=== PATIENT | male | born 1965 | race American Indian/Alaskan Native ===

== ENCOUNTER 2017-09-10 20:53 | Inpatient (IN) | payer OTHER ==
[~2017-09-10] VITALS: Ht 180.3 cm; Wt 89.6 kg
[~2017-09-10 20:53] MED LIST: ASPIR 8181 MG PO; BACTRIM DS TAB1 EACH PO; BETAMETHASONE V60 ML TOP; CALCIUM500 MG PO; CHLORTHALIDONE25 MG PO; CIPROFLOXACIN500 MG PO; CLINDAMYCIN HC300 MG PO; CLOPIDOGREL75 MG PO; CRESTOR20 MG PO; FENOFIBRATE145 MG PO; FENOFIBRATE160 MG PO; GLIPIZIDE XL5 MG PO; HYDROCHLOROTHIA25 MG PO; HYDROCODON-ACE1 EA10 PO; IBUPROFEN600 MG PO; IMODIUM A-1 MG/7.5 M PO; INDOMETHACIN25 MG PO; JANUVIA100 MG PO; JANUVIA50 MG PO; KEFLEX500 MG PO; LANTUS SOL100 UNIT/1 SUB-Q; LINEZOLID600 MG PO; LISINOPRIL10 MG PO; LISINOPRIL40 MG PO; LYRICA75 MG PO; METFORMIN HCL500 M2 PO; METOPROLOL SUCC50 MG PO; MITIGARE0.6 MG PO; MOTRIN IB200 MG PO; NITROSTAT0.4 MG SL; NORCO 5-325 TA1 EACH PO; NORCO 7.5-3251 EACH PO; NOVOLOG FL100 UNIT/1 SUB-Q; NOVOLOG100 UNIT/1 SUB-Q; NOVOLOG100 UNITS/ SUB-Q; ONDANSETRON ODT8 MG SL; PROTONIX40 MG PO; SEPTRA DS TABL1 EACH PO; SIMVASTATIN10 MG PO; SIMVASTATIN5 MG PO; SULFAMETHOXAZO1 EAC1 PO; TOPROL XL100 MG PO; ULTRAM50 MG PO; VITAMIN D1000 UNI1 PO; XARELTO20 MG PO; ZESTRIL40 MG PO; ZOFRAN ODT8 MG PO
[2017-09-10] MEDS ORDERED: LISINOPRIL40 MG PO (21:16)
[2017-09-10] MEDS ORDERED: JANUVIA100 MG PO (21:17)
[2017-09-10] MEDS ORDERED: NOVOLOG100 UNIT/2 (21:19)
--- NOTE | 2017-09-11 00:26 | EKG ---
[facility] [address] [facility] [place] [address] Signed Sinus tachycardia Minimal voltage criteria for LVH, may be normal variant Inferior infarct (cited on or before 02-JAN-2016) Abnormal ECG When compared with ECG of 11-MAY-2016 23:27, Questionable change in initial forces of Inferior leads Confirmed by DIONISIO LINDA MD ([id number]) on 09/11/2017 12:26:43 AM Electronically Signed By: DIONISIO LINDA MD 09/11/17 0026 PATIENT NAME: LIVE ROJAS Electrocardiogram DATE OF : 67 PHYSICIAN: DIONISIO LINDA MD REPORT #: [id number] REPORT IS CONFIDENTIAL AND NOT TO BE RELEASED WITHOUT AUTHORIZATION
--- NOTE | 2017-09-11 01:00 | NUR ---
REPORT RECEIVED FROM STUDENT NURSE ANGIE. PT ARRIVES TO ROOM 128 AT 0010 VIA STRETCHER, PT ABLE TO MOVE HIMSELF ONTO BED. HE IS ALERT/ORIENTED, REPORTS 4/10 PAIN IN HIS RIGHT LEG, WHICH HE STATES IS TOLERABLE. LUNGS ARE CLEAR, RA. HR REGULAR. BOWEL TONES ACTIVE, DENIES NAUSEA. SKIN HAS GENERALIZED PSORIASIS LESIONS OVER ENTIRE BODY. PT HAS NEW TRIAL MEDICATION WHICH MAKES HIS SKIN EXTRA SENSITIVE AND TICKLISH. OPEN LESION TO POSTERIOUS RIGHT LOWER LEG ~2CM COVERED WITH BANDAID PER PT REQUEST. IV SITES PATENT. CBG DID NOT REQUIRE SLIDING SCALE, 12 UNITS LEVEMIR ADMINISTERED. LUNCHBOX PROVIDED PER REQUEST. PT DENIES FURTHER REQUESTS AT THIS TIME, WILL CONTINUE TO MONITOR.
--- NOTE | 2017-09-11 02:11 | NUR ---
PT CURRENTLY SLEEPING, NO APPARENT DISTRESS. RR: 14, RESPIRATIONS EVEN AND UNLABORED. SPO2: 97% ON RA. HR: 84%, SINUS RHYTHM. IVF INFUSING WNL. WILL ALLOW FOR REST AND CONTINUE TO MONITOR.
--- NOTE | 2017-09-11 04:16 | NUR ---
ASSESSMENT COMPLETED. PRN TYLENOL GIVEN FOR 6/10 HEADACHE PAIN. PT HAS NOT YET VOIDED, STATES HE DOES NOT FEEL THE NEED. BLADDER SCAN SHOWS 578ML OF URINE, PT AGREEABLE TO TRYING BY 0600. NO OTHER CHANGES FROM PREVIOUS ASSESSMENT, WILL CONTINUE TO MONITOR.
--- NOTE | 2017-09-11 04:47 | NUR ---
PT CALLED AND HAD VOIDED 500ML USING URINAL. DIET SODA PROVIDED PER REQUEST. PT DENIES FURTHER REQUESTS AT THIS TIME.
--- NOTE | 2017-09-11 08:09 | NUR ---
PT AWAKE AND ALERT, VITAL SIGNS AND ASSESSMENT COMPLETED. A.M. MEDS GIVEN AND PT STATES KNOWLEDGE OF MEDS. C/O OF HEADACHE "08/02", WILL GIVE TYLENOL ORDERED.
--- NOTE | 2017-09-11 09:05 | NUR ---
PT ATE APPROX 75% OF BREAKFAST. ORAL CARE COMPLETED BY PATIENT. AC IV SITE UNCOMFORTABLE. ATTEMPTED TO START IV X3 BUT FAILED. PT ARACELI WELL.
--- NOTE | 2017-09-11 09:49 | NUR ---
DR. LINDA IN TO ASSESS PT. VIAL SIGNS COMPLETED.
--- NOTE | 2017-09-11 10:12 | NUR ---
PT STOOD AT BEDSIDE AND VOIDED 625 MLS CHARISSE URINE, AMBULATING IN ROOM WITHOUT PROBLEMS. RESTING IN [place]CKENZIE CHAIR WATCHING TV.
--- NOTE | 2017-09-11 10:23 | NUR ---
TO XRAY DEPT VIA W/C FOR 2 VIEW CHEST XRAY.
--- NOTE | 2017-09-11 10:44 | NUR ---
PT RETURNED TO ROOM 128 VIA W/C, TRANSFERRED TO [facility] CHAIR WATCHING TV.
--- NOTE | 2017-09-11 12:53 | NUR ---
ASSESSMENT COMPLETED, PT DENIES C/O, STATES HEADACHE "BETTER". FAMILY IN TO VISIT WITH. BLANCOSIS MED BROUGHT FROM HOME AND DR. LINDA AWARE.
--- NOTE | 2017-09-11 14:10 | NUR ---
PT SLEEPING BUT AWAKENS TO VOICE. VITAL SIGNS TAKEN, BP 172/86, DR. LINDA NOTIFIED AND ORDERS RECEIVED. IVF DECREASED TO 75 MLS/HR. WARM BLANKET GIVEN PER PT REQUEST. ORAL TEMP 98.9. FAMILY REMAINS IN ROOM.
--- NOTE | 2017-09-11 15:04 | NUR ---
NEW ORDERS RECEIVED FOR INCREASED BLOOD PRESSURE. NORVASC 5MG PO GIVEN. TYLENOL 500 MG GIVEN PO FOR C/O HEADACHE. PT STOOD AT BEDSIDE AND VOIDED 800 MLS YELLOW URINE. PT RETURNED TO BED, STATES BEING TIRED.
[2017-09-11] MEDS ORDERED: AMLODIPINE BESYL5 MG PO (15:31)
--- NOTE | 2017-09-11 15:38 | NUR ---
PHARMACIST OKSANA HERE TO TALK WITH PT ABOUT HIS HOME MEDS.
[2017-09-11] MEDS ORDERED: OTEZLA1 EAC1 PO (15:52)
[2017-09-11] MEDS ORDERED: LOPERAMIDE2 M1 PO (15:53)
--- NOTE | 2017-09-11 16:43 | NUR ---
PT UP TO [place]IE CHAIR, C/O LEFT CALF DISCOMFORT THAT RUNS UP TO HIS GROIN AREA. SPONGE BATH GIVEN INSTEAD OF SHOWER. SMALL AREAS ON LEGS BLEEDING FROM THE DRY AREAS OF PSORIASIS. PT RETURNED TO BED VITAL SIGNS TAKEN, ORAL TEMP NOW 100.0. ASSESSMENT COMPLETED. PT SLEEPING WITH REU.
--- NOTE | 2017-09-11 17:32 | NUR ---
DR. LINDA NOTIFIED OF LEFT LEG PAIN AND RED AREA ON LEFT LOWER EXTREMITY. PT EATING DINNER AND WATCHING TV.
--- NOTE | 2017-09-11 18:24 | NUR ---
DR. LINDA HERE TO ASSESS LEFT LOWER EXTREMITY. REDNESS NOTED AND PT STATES THE LEG IS PAINFUL. VITAL SIGNS TAKEN AND BP 180/87. EVENING BP MEDS GIVEN EARLY. NORCO 5/325 2 TABS GIVEN FOR C/O LEFT LOWER LEG PAIN "12/02". EKG COMPLETED D/T C/O CHEST PRESSURE. DR. LINDA HERE AND EKG NEG.
--- NOTE | 2017-09-11 18:39 | NUR ---
PT STOOD AT BEDSIDE AND VOIDED 550 MLS CLEAR YELLOW URINE. RETURNED TO BED WITH HOB ELEVATED SLIGHTLY, RESTING WITH EYES CLOSED.
--- NOTE | 2017-09-11 19:39 | NUR ---
SHIFT REPORT RECEIVED FROM ROCAEL JACOBS. PT IS CURRENTLY SLEEPING, RR:19, HR:84. IVF INFUSING WNL. PT DOES NOT APPEAR TO BE IN ANY DISTRESS, WILL ALLOW FOR REST AND CONTINUE TO MONITOR.
--- NOTE | 2017-09-11 21:00 | NUR ---
PT CALLED AND NEEDED TO USE BATHROOM, WALKED INDEPENDENTLY TO BATHROOM AFTER I UNHOOKED IV POLE FROM WALL. PT HAD UNMEASURED VOID AND BM THEN RETURNED TO BED. ASSESSMENT COMPLETED. ORAL TEMP 99.7 AND HEADACHE PAIN 3/10, PRN TYLENOL GIVEN. PT IS ALERT/ORIENTED. LUNGS CLEAR, RA. HR REGULAR. BOWEL TONES ACTIVE, DENIES NAUSEA. SKIN HAS GENERALIZED PSORIASIS LESIONS FROM HEAD TO TOE, MULTIPLE BANDAIDS NOTED TO LOWER LEGS. REDNESS NOTED ON LEFT GROIN/INNER THIGH, NO STRANDING NOTED ON REST OF LEG. CB, 2 UNITS SLIDING SCALE AND 12 UNITS LEVEMIR ADMINISTERED WITH SNACK OF CAM CRACKERS. IV X2, PATENT, IVF INFUSING WNL.
--- NOTE | 2017-09-12 | NUR ---
ASSESSMENT COMPLETED. PT STATES THAT OVERALL HIS PAIN IS 2/10, DENIES NEED FOR ANY PAIN MEDICATION AT THIS TIME. REDNESS TO RIGHT INNER THIGH APPEARS TILE CONDUIT LAYER. PT UP TO BATHROOM, VOIDED 450ML AND IS HAVING DIARRHEA, WHICH HE STATES HE HAS BEEN HAVING AND REQUESTS SOME IMODIUM. CALLED DR. LINDA WHO WOULD LIKE A STOOL SAMPLE SENT FOR CULTURE AND C.DIFF PRIOR TO GIVING IMODIUM. DISCUSSED THIS WITH PT, WHO STATES UNDERSTANDING. BED LINEN CHANGED DUE TO INCONTINENCE OF SMALL AMOUNT OF LIQUID BM. PT DENIES FURTHER REQUESTS AT THIS TIME.
--- NOTE | 2017-09-12 00:18 | NUR ---
PT CALLED AND WAS NAUSEATED, EMESIS BAG PROVIDED, PT HAVING DRY HEAVES, NO EMESIS. 4MG IV ZOFRAN ADMINISTERED. DIET 7-UP AND SALTINE CRACKER PROVIDED. PT SITTING UP IN BED AND EATING SNACKS, STATES HE IS STARTING TO FEEL BETTER. WILL CONTINUE TO MONITOR.
--- NOTE | 2017-09-12 02:24 | NUR ---
PT APPEARS TO BE SLEEPING AT THIS TIME, NO APPARENT DISTRESS. RR:17, RESPIRATIONS ARE EVEN AND UNLABORED, SPO2:96% ON RA. HR:74. IVF INFUSING WNL. WILL ALLOW FOR REST AND CONTINUE TO MONITOR.
--- NOTE | 2017-09-12 04:35 | NUR ---
PT CURRENTLY SLEEPING, NO APPARENT DISTRESS. RESPIRATIONS EVEN AND UNLABORED, RR:19, SPO2: 96% ON RA. HR:69. IVF INFUSING WNL. WILL ALLOW FOR REST AND CONTINUE TO MONITOR.
--- NOTE | 2017-09-12 06:44 | NUR ---
PT VOIDED 725ML USING URINAL AT BEDSIDE. PT HAS NOT HAD ANY MORE EPISODES OF DIARRHEA DURING THE NIGHT. PT CURRENTLY WATCHING TV IN BED, IVF INFUSING WNL. DENIES NEEDS AT THIS TIME.
--- NOTE | 2017-09-12 10:03 | NUR ---
DR. LINDA IN TO ASSESS PT. PT RESTING IN [place] CHAIR.
--- NOTE | 2017-09-12 10:04 | NUR ---
ASSESSMENT COMPLETED. PT UP TO BATHROOM VOIDING 625 MLS CLEAR YELLOW URINE AND HAD LARGE BM. STOOL SAMPLE SENT TO LAB FOR C-DIFF.
--- NOTE | 2017-09-12 11:02 | NUR ---
IVF DC'D AND AND FLUSHED WITH 10 MLS NORMAL SALINE.
--- NOTE | 2017-09-12 12:00 | NUR ---
PT ARRIVED TO FLOOR VIA CHAIR FROM CCU, SBA. PT ALERT AND ORIENTED. DIFFUSE DRY, FLAKING PLAQUES ON SKIN. DRESSINGS NOTED TO A COUPLE OPEN SITES ON LEGS, CDI. IV SITE TO EACH AC, FLUSH WELL, SL AT THIS TIME. ASSESSMENT COMPLETED. CALL LIGHT WITHIN REACH.
--- NOTE | 2017-09-12 13:44 | NUR ---
PT SITTING IN CHAIR, JUST TRANSFERRED FROM CCU. HE IS SMILING AND RATHER PLEASANT. PT SAID HIS PAIN WAS UNDER CONTROL, AND WE BEGAN TO DISCUSS HIS PSORIASIS. ONLY BEEN SOMETHING HE HAS DEALT WITH FOR THE LAST 6-8 MONTHS. ON A MED THAT HE HAS JUST STARTED AND IS SCHEDULED TO SEE A VENEER JOINTER RETURNER NEXT MONTH. WILL CONTINUE TO FOLLOW NEEDED
--- NOTE | 2017-09-12 14:15 | NUR ---
IV IN LEFT AC LEAKING. DC'D BY OVAL OR CIRCULAR GLASS CUTTER II STUDENT SUPERVISED BY MELONIE COTE. IV INFUISION RESTARTED IN RIGHT AC, INFUSING WITHOUT DIFFICULTY.
--- NOTE | 2017-09-12 16:10 | NUR ---
PT SITTING UP IN BED, FAMILY AT BEDSIDE. PT SL. PT DENIES NEEDS OR CONCERNS AT THIS TIME. CALL LIGHT WITHIN REACH.
--- NOTE | 2017-09-12 16:22 | EKG ---
[facility] [address] [facility] [place] [address] Signed Normal sinus rhythm Possible Inferior infarct (cited on or before 02-JAN-2016) Abnormal ECG When compared with ECG of 10-SEP-2017 21:31, T wave amplitude has decreased in Lateral leads Confirmed by DIONISIO LINDA MD ([id number]) on 09/12/2017 4:21:59 PM Electronically Signed By: DIONISIO LINDA MD 09/12/17 1622 PATIENT NAME: LIVE ROJAS Electrocardiogram DATE OF : 67 PHYSICIAN: DIONISIO LINDA MD REPORT #: [id number] REPORT IS CONFIDENTIAL AND NOT TO BE RELEASED WITHOUT AUTHORIZATION
--- NOTE | 2017-09-12 17:50 | NUR ---
PT ATE ALL OF DINNER, ARACELI WELL. PT C/O 12/02 LEFT LEG PAIN. MEDICATED WITH NORCO. CALL LIGHT WITHIN REACH. PT INDEPENDENT IN ROOM.
--- NOTE | 2017-09-12 19:20 | NUR ---
IN ROOM FOR REPORT, PT IS AWAKE IN BED, HE DENIES ANY NEEDS AT THIS TIME. CALL LIGHT IS WITHIN REACH.
--- NOTE | 2017-09-12 22:13 | NUR ---
IN ROOM TO ASSESS PT AND ADMINISTER MEDICATIONS. HE RATES PAIN AT 4/10 AT THIS TIME WITH A PAIN GOAL OF 4 AND STATES HE IS DOING OK. NEW BANDAIDS APPLIED TO OPEN AREAS ON HIS LOWER EXTREMITIES, THERE WERE SMALL AMOUNTS OF DRIED BLOOD ON EA BANDAID. BROUGHT PT BERNIE CASTANO AND HE DENIES FURTHER NEEDS AT THIS TIME.
--- NOTE | 2017-09-13 00:33 | NUR ---
IN ROOM TO ADMINISTER IV ABX, PT DENIES PAIN AND ANY NEEDS AT THIS TIME. CALL LIGHT IS WITHIN REACH.
--- NOTE | 2017-09-13 03:20 | NUR ---
PT IS RESTING WITH EYES CLOSED, RESPIRATIONS ARE EVEN AND NONLABORED. CALL LIGHT IS WITHIN REACH.
--- NOTE | 2017-09-13 04:50 | NUR ---
PT WOKE TO USE THE RESTROOM AND COMPLAINED OF LEG PAIN AT 8/10. ADMINISTERED 1 NORCO ALONG WITH SOME CRACKERS. PT DENIES FURTHER NEEDS AT THIS TIME. BANDAGES ON LEGS ARE INTACT.
--- NOTE | 2017-09-13 08:21 | NUR ---
PATIENT SITTING UP IN BED. STUDENT NURSE AND INSTRUCTOR IN ROOM. NO OTHER NEEDS AT THIS TIME.
--- NOTE | 2017-09-13 09:29 | NUR ---
PT HAD ECHOCARDIOGRAM THIS MORNING. DR LINDA IN TO SEE PATIENT. SALINE LOCKED NOW. STUDENT NURSE SET UP PATIENT FOR SHOWER. IV COVERED WITH ZIPLOC AND FOAM TAPE. LINENS BEING CHANGED BY STUDENT NURSE. ATE 100% OF BREAKFAST. NO COMPLAINTS OR NEEDS AT THIS TIME. SOME PAIN IN HIS LOWER LEGS FROM PSORIASIS.
--- NOTE | 2017-09-13 09:49 | NUR ---
PATIENT IN THE SHOWER. STUDENT NURSE IN ROOM. STUDENT NURSE STATES SHE CHANGED THE LINEN FOR THE PATIENT. PATIENT INDEPENDENT IN THE SHOWER.
--- NOTE | 2017-09-13 13:44 | NUR ---
PT SITTING IN CHAIR, VISITING WITH FAMILY. PLEASANT, EXTENDED A BLESSING, WILL FOLLOW NEEDED
--- NOTE | 2017-09-13 13:57 | NUR ---
RN NOTIFIED ABOUT OUTPUT
--- NOTE | 2017-09-13 14:48 | NUR ---
PT RESTING QUIETLY WITH EYES CLOSED. SALINE LOCKED IV WHEN VANCO FINISHED AT 1445.
--- NOTE | 2017-09-13 15:51 | NUR ---
PATIENT SITTING UP IN CHAIR. NO OTHER NEEDS AT THIS TIME.
--- NOTE | 2017-09-13 18:41 | NUR ---
ACCU CHECKS. ADA DIET. ANTONIO ADDED TODAY. OTESLA FOR PSORIASIS IN KITS LIST. PSORIASIS SEVERE OVER ENTIRE BODY. BANDAIDS COVERING OPEN SPOTS ON LOWER EXTREMITIES. NEW IV IN LFA. SALINE LOCKED. [facility]-- TROUGH 1130 09/14/17. AUGUST D/C HOME TOMORROW.
--- NOTE | 2017-09-13 19:31 | NUR ---
IN ROOM FOR REPORT, PT IS AWAKE IN BED. HE STATES HIS PAIN IS 4/10 AT THIS TIME AND TOLERABLE. CALL LIGHT IS WITHIN REACH.
--- NOTE | 2017-09-13 20:35 | NUR ---
IN ROOM TO ASSESS PT AND ADMINISTER MEDICATIONS. PT RATES PAIN AT A 4/10 IN HIS LEGS AND STATES IT IS WORSE WHEN HE IS UP WALKING BUT TOLERABLE WHILE IN BED. HIS TEMP IS 99.6. GAVE THE PT THE OPTION BETWEEN NORCO AND TYLENOL AND HE CHOSE TYLENOL. BANDAIDS ON LEGS ARE ALL INTACT.
--- NOTE | 2017-09-13 23:16 | NUR ---
PT IS RESTING IN BED, EYES ARE CLOSED AND RESPIRATIONS ARE EVEN AND NONLABORED. CALL LIGHT IS WITHIN REACH.
--- NOTE | 2017-09-14 00:38 | NUR ---
IN ROOM TO ADMIN ABX. PT DENIES ANY NEEDS AT THIS TIME. CALL LIGHT IS WITHIN REACH.
--- NOTE | 2017-09-14 03:06 | NUR ---
PT IS RESTING WITH EYES CLOSED, RESPIRATIONS ARE EVEN AND NONLABORED. CALL LIGHT IS WITHIN REACH.
--- NOTE | 2017-09-14 04:57 | NUR ---
PT DID WELL THROUGH THE NIGHT. HE HAS REMAINED INDEPENDENT IN THE ROOM. HE HAD TYLENOL FOR PAIN AT BEDTIME AND TEMP OF 99.6. THE BANDAIDS ON HIS LE HAVE REMAINED INTACT AND NO DRAINAGE NOTED. [facility] IS SCHEDULED FOR 1130 TODAY.
--- NOTE | 2017-09-14 05:29 | NUR ---
IN ROOM TO ADMINISTER MEDICATION. PT DENIES PAIN AT THIS TIME. LAB IS IN ROOM AT THIS TIME.
--- NOTE | 2017-09-14 07:20 | NUR ---
BEDSIDE REPORT RECEIVED FROM KISHORE COTE. PATIENT SLEEPING. IV RUNNING TKO AFTER VANCO INFUSED. WHITE BOARD UPDATED. VANCO TROUGH PLANNED FOR 1130. SALINE LOCK WHEN AWAKE.
--- NOTE | 2017-09-14 08:21 | NUR ---
PATIENT SITTING UP IN CHAIR. CALL LIGHT WITHIN REACH. FRESH ICE WATER. NO OTHER NEEDS AT THIS TIME.
[2017-09-14] MEDS ORDERED: BETAMETHASONE V15 GM TOP (10:44)
[2017-09-14] MEDS ORDERED: BETAMETHASONE V60 ML TOP (10:45)
[2017-09-14] MEDS ORDERED: CERAVE453 GM TOP (10:46)
[2017-09-14] MEDS ORDERED: FLONASE ALLERG9.9 ML NAS (10:47)
[2017-09-14] MEDS ORDERED: [UNRECOGNIZED DRUG - OTHER] TOP (10:47)
--- NOTE | 2017-09-14 11:37 | NUR ---
PATIENT SITTING UP IN BED. CALL LIGHT WITHIN REACH. NO OTHER NEEDS AT THIS TIME.
--- NOTE | 2017-09-14 13:18 | NUR ---
REMOVED IV IN LEFT FOREARM D/T INFILTRATION. NEW IV STARTED IN RIGHT WRIST. PATIENT BLED GOOD AMOUNT FROM IV REMOVAL. DRESSED WITH OCCLUSIVE DRESSING TO ASSIST WITH CLOTTING. LEFT HAND DRESSING IN PLACE TO OCCLUDE DRAINAGE. FAMILY AT BEDSIDE. VANCO INFUSING INTO RIGHT WRIST.
--- NOTE | 2017-09-14 13:40 | NUR ---
PATIENT SITTING UP IN BED. FAMILY MEMBERS IN ROOM. RN IN ROOM. CALL LIGHT WITHIN REACH. NO OTHER NEEDS AT THIS TIME.
[2017-09-14] MEDS ORDERED: LEVAQUIN750 MG PO (14:13)
--- NOTE | 2017-09-14 15:39 | NUR ---
PT OFF FLOOR WITH EMS AT 1536.
--- NOTE | 2017-09-14 16:08 | NUR ---
report called to [facility]. talked to Cristy Caceres RN. all questions answered.
== END 2017-09-14 15:26 | disposition home or self-care (01) | DRG 872 ==
LOC: ED 20:53 → CCU 23:25 → MS 09-12 11:45
PROVIDERS: ADMIT Internal Medicine
DX: A41.1 Sepsis due to other specified staphylococcus (principal); I48.0 Paroxysmal atrial fibrillation; I25.10 Atherosclerotic heart disease of native coronary artery without angina pectoris; I10 Essential (primary) hypertension; E11.9 Type 2 diabetes mellitus without complications; Z79.4 Long term (current) use of insulin; L40.9 Psoriasis, unspecified; E78.5 Hyperlipidemia, unspecified; K52.9 Noninfective gastroenteritis and colitis, unspecified; I48.91 Unspecified atrial fibrillation; S80.921A Unspecified superficial injury of right lower leg, initial encounter; R65.10 Systemic inflammatory response syndrome (SIRS) of non-infectious origin without acute organ dysfunction
CPT/HCPCS: 36415; 71045; 71046; 80048; 80053; 80202; 81001; 83605; 83735; 85025; 86431; 87040; 87045; 87046; 87077; 87186; 87493; 93005; 93010; 93306; 96361; 96365; 96375; 99285; J0692; J2405; J3370; J3475; J7030; J7040; J7060; J7120

== ENCOUNTER 2017-09-19 13:16 | Observation (INO) | payer OTHER ==
[~2017-09-19] VITALS: Ht 180.3 cm; Wt 90.4 kg
[~2017-09-19 13:16] MED LIST changes: +AMLODIPINE BESYL5 MG PO; +BETAMETHASONE V15 GM TOP; +CERAVE453 GM TOP; +FLONASE ALLERG9.9 ML NAS; +LEVAQUIN750 MG PO; +LOPERAMIDE2 M1 PO; +NOVOLOG100 UNIT/2; +OTEZLA1 EAC1 PO; +[UNRECOGNIZED DRUG - OTHER] TOP
[2017-09-21] MEDS ORDERED: CEFTRIAXONE2 G1 IV (12:23)
[2017-09-21] MEDS ORDERED: XARELTO15 MG PO (12:24)
[2017-09-21] MEDS ORDERED: DOXAZOSIN MESYLA2 MG PO (12:25)
[2017-09-21] MEDS ORDERED: AMLODIPINE BESYL5 MG PO (12:26)
[2017-09-21] MEDS ORDERED: JANUVIA100 MG PO (12:27)
[2017-09-21] MEDS ORDERED: LANTUS SOL100 UNIT/1 SUB-Q (12:29)
== END 2017-09-21 14:55 | disposition home or self-care (01) ==
LOC: ED 13:16 → MS 13:18
PROVIDERS: ADMIT Internal Medicine
DX: N17.0 Acute kidney failure with tubular necrosis (principal); N14.1 Nephropathy induced by other drugs, medicaments and biological substances; T36.8X5A Adverse effect of other systemic antibiotics, initial encounter; L03.116 Cellulitis of left lower limb; B95.4 Other streptococcus as the cause of diseases classified elsewhere; I10 Essential (primary) hypertension; E11.9 Type 2 diabetes mellitus without complications; L40.9 Psoriasis, unspecified; I25.10 Atherosclerotic heart disease of native coronary artery without angina pectoris; I48.0 Paroxysmal atrial fibrillation; Z88.0 Allergy status to penicillin; Z79.01 Long term (current) use of anticoagulants; Z95.5 Presence of coronary angioplasty implant and graft; Z79.82 Long term (current) use of aspirin; Z79.4 Long term (current) use of insulin; Z79.51 Long term (current) use of inhaled steroids; Z79.899 Other long term (current) drug therapy
CPT/HCPCS: 80048; 80053; 80202; 81001; 82570; 84300; 85025; 93971; 96361; 96372; 99285; G0378; J0696; J7030; J7120

== ENCOUNTER 2017-11-14 19:47 | Emergency (ER) | payer OTHER ==
[~2017-11-14] VITALS: Ht 180.3 cm; Wt 95.2 kg
[~2017-11-14 19:47] MED LIST changes: +CEFTRIAXONE2 G1 IV; +DOXAZOSIN MESYLA2 MG PO; +MECLIZINE HCL25 MG PO; +XARELTO15 MG PO
[2017-11-14] MEDS ORDERED: NORCO 5-325 TA1 EACH PO (20:00)
[2017-11-14] MEDS ORDERED: IMODIUM A-D2 M2 PO (23:18)
[2017-11-14] MEDS ORDERED: ZOFRAN ODT4 MG SL (23:18)
== END 2017-11-14 23:30 | disposition home or self-care (01) ==
LOC: ED 19:47
DX: R11.2 Nausea with vomiting, unspecified (principal); R19.7 Diarrhea, unspecified; I10 Essential (primary) hypertension; E11.9 Type 2 diabetes mellitus without complications; Z88.0 Allergy status to penicillin; Z79.4 Long term (current) use of insulin; Z79.899 Other long term (current) drug therapy
CPT/HCPCS: 80053; 83630; 83690; 85025; 96361; 96374; 99283; J2405; J7030

== ENCOUNTER 2018-04-22 06:42 | Inpatient (IN) | payer OTHER ==
[~2018-04-22] VITALS: Ht 180.3 cm; Wt 95.2 kg
[~2018-04-22 06:42] MED LIST changes: +IMODIUM A-D2 M2 PO; +ZOFRAN ODT4 MG SL
--- OUTSIDE RECORDS SUMMARY | 2018-04-22 06:48 | XMS ---
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 Melody VISIT COUNT (12 MO.) 5 [facility] TOTAL 5 NOTE: Visits indicate total known visits. ED/UCC VISIT TRACKING (12 MO.) 04/22/2018 06:43 [facility] TYPE: Emergency COMPLAINT: - WEAKNESS/VOMITING 11/14/2017 19:48 [facility] TYPE: Emergency COMPLAINT: - VOMITING DIAGNOSES: - Type 2 diabetes mellitus without complications - Diarrhea, unspecified - Allergy status to penicillin - Other jail (current) drug therapy - intermediate designer (current) use of insulin - Nausea with vomiting, unspecified - Essential (primary) hypertension 10/15/2017 21:53 [facility] TYPE: Emergency COMPLAINT: - DIZZY,SORE NECK DIAGNOSES: - Dizziness and giddiness - Essential (primary) hypertension - Unspecified atrial fibrillation - Type 2 diabetes mellitus without complications - alf (current) use of insulin - Allergy status to penicillin - Other jail (current) drug therapy 09/19/2017 13:17 [facility] TYPE: Emergency COMPLAINT: - L FOOT SWOLLEN/NO INJURY 09/10/2017 20:53 [facility] TYPE: Emergency COMPLAINT: - BODY PAIN INPATIENT VISIT TRACKING (12 MO.) 09/14/2017 17:06 [facility] TYPE: General Medicine DIAGNOSES: - Essential (primary) hypertension - Psoriasis, unspecified - Bacteremia - Paroxysmal atrial fibrillation - pericarditis - Unspecified streptococcus as the cause of diseases classified elsewhere [email or web address]
--- NOTE | 2018-04-22 11:00 | NUR ---
PT ARRIVED FROM ED. PT REPORTS 2/10 HEADACHE PAIN AND NAUSEA. ZOFRAN GIVEN IN ED. NO EMESIS NOTED AT THIS TIME. ASSESSMENT DONE, INTAKE DONE. PT ORIENTED TO ROOM AND DEMONSTRATES USE OF CALL LIGHT. IV AZITHROMYCIN COMPLETE. PIV SALINE LOCKED. BED RAILS UP. CALL LIGHT WITHIN REACH.
--- NOTE | 2018-04-22 12:10 | NUR ---
NEW MEDICATION ORDERS. THIS RN TO BEDSIDE. MEDICATIONS GIVEN (SEE MAR). MD STATES OK TO GIVE ZOFRAN DOSE EARLY, GIVEN ORDERED. IV FLUIDS STARTED. WATER, ICE CHIPS, AND TEA PROVIDED FOR PT. PTS FAMILY ARRIVED. FAMILY UPDATED AND STATES THEIR QUESTIONS HAVE BEEN ANSWERED. NO ADDITIONAL REQUESTS OR COMPLAINTS AT THIS TIME. BED RAILS UP. CALL LIGHT WITHIN REACH.
--- NOTE | 2018-04-22 13:23 | NUR ---
THIS RN TO ROOM TO CHECK ON PT. PT RESTING ON RIGHT SIDE WITH EYES CLOSED. RESPIRATIONS REGULAR RATE AND RHYTHEM. BED RAILS UP. CALL LIGHT WITHIN REACH.
--- NOTE | 2018-04-22 13:48 | NUR ---
CCU TELE MONITOR CALLED REGARDING PTS HEART RHYTHEM. FREQUENT PVCS NOTED WITH IRRGULAR RATE. CCU RN, JENNIE, STATES SHE WILL REVIEW THE MONITOR AND LET DR. LAKHANI KNOW (WHO IS IN CCU NOW). CHARGE NURSE NOTIFIED.
--- NOTE | 2018-04-22 15:09 | NUR ---
MD NOTIFED OF ELEVATED BLOOD PRESSURE AND TEMPERATURE. THIS RN TO ROOM TO GIVE TYLENOL AND REASSESS. TYLENOL AND ASPIRIN GIVEN. PT BEGINS TO COMPLAIN OF CHEST PAIN. MD NOTIFED. NEW ORDERS PLACED. IV HYDROMORPHONE AND METOPROLOL GIVEN. BLOOD PRESSURE RETAKEN AT 1500 AND READS 164/110. PT STATES CHEST PAIN IS IMPROVING. BLOOD PRESSURE RETAKEN AT 1520 AND READS 147/76 (94). PT NOW RATES PAIN AT 3/10. BED RAILS UP. CALL LIGHT WITHIN REACH.
--- NOTE | 2018-04-22 16:28 | NUR ---
AFTERNOON ASSESSMENT DUE. THIS RN TO BEDSIDE. VITALS TAKEN. PT REPORTS PAIN IS "A LOT BETTER, ALMOST NORMAL." AND RATES BOTH HEADACHE AND CHEST PAIN AT 1/10. ASSESSMENT DONE. PTS EYES NOTED TO BE RED WITH WHITE DRAINAGE. MD INFORMED. PT ENCOURAGED TO VOID, PT UP AT SIDE OF BED WITH URINAL, VOIDS 350ML OF DARK YELLOW URINE. PT ENCOURAGED TO DRINK FLUIDS. PT CONTINUES TO REPORT NAUSEA BUT DENIES RECENT EMESIS. PT RESTING WITH EYES CLOSED, RR - 18 BPM. BED RAILS UP. CALL LIGHT WITHIN REACH.
--- NOTE | 2018-04-22 18:03 | NUR ---
THIS RN TO ROOM TO CHECK ON PT. PT FINISHED WITH JELLO AND DIET 7-UP. PT DENIES PAIN AND NAUSEA. PT STATES HE DOES NOT NEED ANY MEDICATION FOR NAUSEA. PT ASSISTED WITH ORDERING CHICKEN SOUP AND TOAST TO EAT, CRACKERS AND SUGAR FREE JELLO GIVEN TO PT. PT STATES HE HAS NO ADDITIONAL REQUESTS OR COMPLAINTS. PT WATCHING TV. NO ADDITIONAL REQUESTS OR COMPLAINTS AT THIS TIME. BED RAILS UP. CALL LIGHT WITHIN REACH.
--- NOTE | 2018-04-22 18:16 | NUR ---
PT STATES HE USUALLY TAKES INSULINE WITH MEALS. MD CALLED. ORDERS FOR SLINDING SCALE INSULIN GIVEN. ORDERS ENTERED AND CONFIRMED BY FLOATING OPERATORJESSICA COTE.
--- NOTE | 2018-04-22 18:25 | NUR ---
PT ADDMITED FROM ED TODAY FOR BILATERAL PNEUMONIA. SBA WITH RECENT FALLS AT HOME. N/V TODAY, ZOFRAN GIVEN X2. PT ABLE TO TOLERERATE DINNER THIS EVENING. CBG CHECKS WITH SLIDING SCALE INSULINE, BLOOD SUGARS WITHIN RANGE THIS SHIFT. TELE #5 IN NSR. O2 SATURATIONS ABOVE 92% ON ROOM AIR. PT USES CALL LIGHT APPROPRIATLY.
--- NOTE | 2018-04-22 19:28 | NUR ---
SHIFT REPORT RECEIVED FROM DAY SHIFT RN AT BEDSIDE. PT AWAKE IN BED, RR EVEN AND UNLABORED. FAMILY IN ROOM WITH PT. PT DENIES FURTHER NEEDS AT THIS TIME, CALL LIGHT IN REACH.
--- NOTE | 2018-04-22 20:30 | NUR ---
ASSESSMENT COMPLETE. PT A/O X3, DENIES PAIN. PT DRYHEAVING AND REPORTING NAUSEA. PRN ZOFRAN ADMINISTERED, WILL HOLD SCHEDULED PO MEDICATIONS AND REASSESS PT. PT DRYHEAVING AND PRODUCING CLEAR PHLEGM W/ YELLOW CHUNKS. FAMILY IN ROOM. IV FLUIDS INFUSING PER MD ORDERS, IV SITE WNL. PT DENIES FURTHER NEEDS, CALL LIGHT IN REACH.
--- NOTE | 2018-04-22 20:34 | NUR ---
VITALS DONE AND CHARTED. BLOOD SUGAR DONE WELL. INFORMED HIS RN AMBROCIO.
--- NOTE | 2018-04-22 21:45 | NUR ---
DR LAKHANI MADE AWARE OF PT'S DRY HEAVING AND CLEAR/YELLOW PRODUCING SPUTUM/PHLEGM. THIS RN MADE TWO ATTEMPTS TO ADMINSITER PT'S ORAL BP MEDICATIONS, BUT UNABLE DUE TO PT'S INTERMITTENT DRY HEAVING. NO NEW ORDERS, INSTRUCTED BY DR LAKHANI TO "TRY ONE PILL AT A TIME AND SEE IF PT CAN HOLD DOWN MEDICATIONS".
--- NOTE | 2018-04-22 22:30 | NUR ---
PT ABLE TO TAKE SCHEDULED METOPROLOL AND AMLODIPINE BEFORE RESUMING DRYHEAVING. PT DRY HEAVING AND AGAIN PRODUCING CLEAR/YELLOW PHLEGM. NO PILL(S) NOTED IN PHLEGM. WILL HOLD SCHEDULED CARDURA UNTIL DRYHEAVING STOPS.
--- NOTE | 2018-04-23 00:08 | NUR ---
SCHEDULED YUEURA ADMINISTERED.
--- NOTE | 2018-04-23 00:30 | NUR ---
DR LAKHANI MADE AWARE OF PT'S ABILITY TO TAKE BP MEDICATIONS. SCHEDULED METOPROLOL AND AMLODIPINE TAKEN APPROX 2230 AND SCHEDULED CARDURA TAKEN AT APPROX 0010. NO NEW ORDERS.
--- NOTE | 2018-04-23 00:41 | NUR ---
HELPED PT TO THE BATHROOM AND BACK TO BED. DID A COMPLETE BED CHANGE DUE TO INCONTINENCE OF BM. BEDSIDE TABLE AND CALL LIGHT IN REACH. PT NEEDS NOTHING ELSE AT THIS TIME.
--- NOTE | 2018-04-23 00:44 | NUR ---
EMPTIED URINAL FOR 300MM. NOTIFIED ROCAEL ALBRECHT OF THE VERY DARK COLOR OF URINE.
--- NOTE | 2018-04-23 01:09 | NUR ---
INFORMED BY INSPECTOR HANDBAG FRAMES JULIO OF PTS RECENT UO OF [address] LAKHANI MADE AWARE THAT PT HAS ONLY VOIDED 300 MLS OF CONCENTRATED URINE SINCE BEGINNING OF SHIFT. NO NEW ORDERS.
--- NOTE | 2018-04-23 02:18 | NUR ---
VITALS DONE AND CHARTED. BEDSIDE TABLE AND CALL LIGHT IN REACH,
--- NOTE | 2018-04-23 03:16 | NUR ---
PT RESTING IN BED, RR EVEN AND UNLABORED. EYES CLOSED, PT APPEARS COMFORTABLE. CALL LIGHT IN REACH. IV FLUIDS INFUSING PER MD ORDERS, SITE WNL.
--- NOTE | 2018-04-23 03:45 | NUR ---
ASSESSMENT COMPLETE. NO NEW CONCERNS. PT A/O X3, DENIES PAIN. PT CONTINUES TO HAVE INTERMITTENT DRY HEAVING AND CONTINUES TO PRODUCE CLEAR PHLEGM W/ YELLOW CHUNKS. PT DENIES FURTHER NEEDS, CALL LIGHT IN REACH.
--- NOTE | 2018-04-23 06:03 | EKG ---
[facility] [address] [facility] [place] [address] Signed Normal sinus rhythm T wave abnormality, consider inferior ischemia Abnormal ECG When compared with ECG of 15-OCT-2017 22:05, T wave inversion now evident in which was noted on prior EKGs Confirmed by PAULA LAKHANI MD ([id number] on 04/23/2018 6:02:40 AM Electronically Signed By: PAULA LAKHANI MD 04/23/18 0603 PATIENT NAME: ARIANA ROJASBORIS Abrams Electrocardiogram DATE OF : 67 PHYSICIAN: PAULA LAKHANI MD REPORT #: [id number] REPORT IS CONFIDENTIAL AND NOT TO BE RELEASED WITHOUT AUTHORIZATION
--- NOTE | 2018-04-23 06:22 | NUR ---
PT HAD ROUGH BEGINNING OF SHIFT DUE TO INTERMITTENT DRY HEAVING WHICH PRODUCED CLEAR PHLEGM W/ YELLOW CHUNKS. DRYHEAVING CAUSED DELAY IN CARDIAC MEDICATIONS, MD AWARE. PT ON IV FLUIDS, IV SITE WNL. PT ON RA. ZOFRAN GIVEN X1 FOR NAUSEA, PT ON ADA DIET, BOWEL TONES ACTIVE. PT SBA W/ AMBULATION. USES CALL LIGHT APPROPERIATELY.
--- NOTE | 2018-04-23 07:04 | NUR ---
DR LAKHANI NOTIFIED OF URINE OUTPUT OF 450 THE WHOLE NIGHT. NO NEW ORDERS RECEIVED.
--- NOTE | 2018-04-23 08:35 | NUR ---
PT SLEEPING DEEPLY UPON ENTERING ROOM. AWOKE TO VOICE AND GENTLE TOUCH. PT DENIES NAUSEA BUT REPORTS THAT HE IS NOT HUNGRY, REFUSED BREAKFAST AT THIS TIME. ORIENTED TO ALL. DENIES PAIN, OR SOB. IV INFUSING WNL CALL LIGHT MADDIE GALLARDO.
--- NOTE | 2018-04-23 09:53 | NUR ---
PT REPORTS SOME NAUSEA AT THIS TIME. REQUESTED APPLESAUCE STATES "IT SOUNDS PRETTY GOOD, I THINK IT MIGHT HELP SETTLE MY STOMACH." MEDICATED WITH IV ZOFRAN.
--- NOTE | 2018-04-23 12:43 | NUR ---
PT SITTING UP IN BED EATING LUNCH, APPROX HALF A HAMBURGER AND APPLESAUCE. ARACELI WELL SO FAR. CALL LIGHT WITHIN REACH
--- NOTE | 2018-04-23 15:50 | NUR ---
PT DRY HEAVING AND COUGHING. NO EMESIS BUT PT PRODUCING THIS MUCOUS WITH YELLOW BITS. MEDICATED WITH IV ZOFRAN. PT DAUGHTER AT BEDSIDE. CALL LIGHT WITHIN REACH.
--- NOTE | 2018-04-23 17:15 | NUR ---
ATTEMPTED TO RESTART IV. IV NOTED TO NO LONGER BE PATENT. LEFT FOREARM IV DC'D. THIS RN ATTEMPTED NEW IV SITE ON RIGHT WRIST, UNSUCCESSFUL. JESSICA COTE OBTAINED PATENT IV ON 3RD ATTEMPT IN RIGHT HAND, 22G. IV FLUSHES WELL. IVF RESTARTED. PT STATES NAUSEA IS SOMEWHAT RESOLVED AT THIS TIME AND ORDERED DINNER. DENIES PAIN. CALL LIGHT WITHIN REACH.
--- NOTE | 2018-04-23 19:25 | NUR ---
PT IN BED AWAKE. RR EVEN AND UNLABORED. PT DENIES ADDITIONAL NEEDS AT THIS TIME. CALL LIGHT IN REACH.
--- NOTE | 2018-04-23 21:15 | NUR ---
ROUNDED CHARGE. PATIENT IS RESTING IN BED. PATIENT DENIES ANY COMMENTS, QUESTIONS OR CONCERNS. NO NEEDS NOTED. CALL LIGHT IN REACH.
--- NOTE | 2018-04-23 21:30 | NUR ---
ASSESSMENT COMPLETE. PT A/O X3, VERBALIZES 4/10 PAIN. PRN TYLENOL GIVEN. BS CHECK WNL, NO INSULIN SS NEEDED, SCHEDULED LANTUS GIVEN. FOLLOWING LANTUS ADMINISTRATION, PT REQUESTED ADULT BRIEFS AND CHUCKS PADDING AND STATED, "THE LANTUS CAN GIVE ME DIARRHEA". BRIEFS AND CHUCKS PROVIDED. IV FLUIDS INFUSING PER MD ORDERS, SITE WNL. PT DENIES FURTHER NEEDS, CALL LIGHT IN REACH.
--- NOTE | 2018-04-23 21:34 | NUR ---
BLOOD SUGAR DONE AND CHARTED. INFORMED HIS RN AMBROCIO OF NUMBER.
--- NOTE | 2018-04-23 21:34 | NUR ---
VITALS AND I&OS DONE AND CHARTED. INFORMED ROCAEL ALBRECHT OF TEMP. 99.0 BEDSIDE TABLE AND CALL YOANDY GALLARDO.
--- NOTE | 2018-04-23 23:25 | NUR ---
PT RESTING IN BED, EYES CLOSED. RR EVEN AND UNLABORED. PT ON RA. CALL LIGHT IN REACH. TELE RHYTHM NORMAL SINUS RHYTHM.
--- NOTE | 2018-04-24 00:45 | NUR ---
NEW BAG OF FLUIDS HUNG PER MD ORDERS, IV SITE WNL. PT DENIES FURTHER NEEDS, CALL LIGHT IN REACH.
--- NOTE | 2018-04-24 01:10 | NUR ---
FAMILY IN ROOM, PT DENIES NEEDS AT THIS TIME. RR EVEN AND UNLABORED. CALL LIGHT IN REACH.
--- NOTE | 2018-04-24 01:59 | NUR ---
PT RESTING IN BED, RR EVEN AND UNLABORED. TELE ON, HR 60, SINUS RHYTHM. CALL LIGHT IN REACH, NO DISTRESS NOTED.
--- NOTE | 2018-04-24 03:00 | NUR ---
MORNING ASSESSMENT COMPLETE. PT REPORTS MILD DIZIINESS, VSS. ACCUCHECK RESULT OF 91. PT DROWSY, BUT AROUSABLE AND ABLE TO FOLLOW COMMANDS. NO NEW CONCERNS AT THIS TIME. SUGAR FREE ASA'CARSARMIUT SODA AND FRESH ICE AT BEDSIDE PER PT REQUEST. PT DENIES FURTHER NEEDS, CALL LIGHT IN REACH.
--- NOTE | 2018-04-24 04:40 | NUR ---
PT HAD OKAY NIGHT. PT A/O X3, WITHDRAWN AND QUIET AT TIMES WITH FLAT AFFECT. BUT FOLLOWS COMMANDS APPROPERIATELY. PT SBA W/ AMBULATION, USES CALL LIGHT APPROPERIATELY. PT ON 1800 CALORIE ADA DIET, TOLERATING WELL, ACTIVE BOWEL TONES. DRY HEAVING APPEARS TO BE IMPROVING. SCHEDULED ACCUCHECKS W/ INSULIN SS. LANTUS GIVEN, BS WNL. PT ON RA, WHEEZES ON AUSCULTATION. PT DENIES SOB OR CHEST PAIN. IV FLUIDS INFUSING PER MD ORDERS, SITE WNL.
--- NOTE | 2018-04-24 05:17 | NUR ---
PT RESTING IN BED, EYES CLOSED, RR EVEN AND UNLABORED. CALL LIGHT IN REACH.
--- NOTE | 2018-04-24 08:35 | NUR ---
PT SITTING UP IN BED EATING BREAKFAST. DENIES NAUSEA OR PAIN THIS AM. PT REPORTS FEELING BETTER TODAY AND "I DIDN'T HAVE ANY COUGHING FITS LAST NIGHT." ALERT AND ORIENTED. ASSESSMENT COMPLETED. LUNGS CLEAR BILATERALLY. IV INFUSING WNL. PT ON TELE #7, HR SINUS RHTHYM. CALL LIGHT WITHIN REACH.
[2018-04-24] MEDS ORDERED: XARELTO20 MG PO (09:19)
[2018-04-24] MEDS ORDERED: FOLIC ACID1 MG PO (09:20)
--- NOTE | 2018-04-24 10:00 | NUR ---
PATIENT USING BATHROOM. PATIENT BACKS TO CHAIR. LINENS CHANGED. VITAL SIGNS AND I&O DONE. CALL LIGHT WITHIN REACH. NO OTHER NEEDS AT THIS TIME
--- NOTE | 2018-04-24 10:15 | NUR ---
PT UP TO RESTROOM A COUPLE TIMES WITH SBA FROM [facility]. VOIDED AND HAD BM. ATE ALL OF BREAKFAST, ARACELI WELL. PT IN BETTER SPIRITS THIS AM. CURRENTLY SITTING UP IN BED WATCHING TV. CALL LIGHT WITHIN REACH.
--- NOTE | 2018-04-24 12:30 | NUR ---
PT SITTING UP IN BED EATING LUNCH, ARACELI WELL. DENIES NAUSEA OR PAIN. DAUGHTER AT BEDSIDE. IV INFUSING WNL. CALL LIGHT WITHIN REACH.
--- NOTE | 2018-04-24 13:55 | NUR ---
PATIENT RESTING IN BED. IN ROOM. [place] SIGNS AND I&O DONE. CALL LIGHT WITHIN REACH. NO OTHER NEEDS AT THIS TIME
--- NOTE | 2018-04-24 15:20 | NUR ---
PT VOIDING MORE THIS SHIFT. REPORTS HAVING DIARRHEA "BECAUSE I ATE SOME SAUSAGE THIS MORNING AND IT UPSET MY STOMACH." PT STATES HE WOULD LIKE SOME IMMODIUM. NOTIFIED DR. LAKHANI. NEW ORDERS WRITTEN.
[2018-04-24] MEDS ORDERED: NORVASC10 MG PO (15:31)
[2018-04-24] MEDS ORDERED: VITAMIN D35000 UNIT PO (15:35)
[2018-04-24] MEDS ORDERED: CLOBETASOL EMOL15 GM TOP (15:37)
[2018-04-24] MEDS ORDERED: JANUVIA100 MG PO (15:37)
--- NOTE | 2018-04-24 15:52 | NUR ---
Medications reconciled using [facility] records and patient interview
--- NOTE | 2018-04-24 17:34 | NUR ---
PATIENT IN BED WATCHING TV. VITAL SIGNS AND I&O DONE. WARM BLANKET PROVIDED. CALL LIGHT WITHIN REACH. NO OTHER NEEDS AT THIS TIME
--- NOTE | 2018-04-24 17:46 | NUR ---
PT SITTING UP IN BED EATING DINNER, ARACELI WELL. DENIES NEEDS OR CONCERNS AT THIS TIME. CALL LIGHT WITHIN REACH.
--- NOTE | 2018-04-24 19:40 | NUR ---
SHIFT REPORT RECEIVED FROM DAY SHIFT RN AT BESIDE. PT AWAKE, RR EVEN AND UNLABORED. PT A/O X3, DENIES NEEDS AT THIS TIME. CALL LIGHT IN REACH.
--- NOTE | 2018-04-24 21:04 | NUR ---
ASSESSMENT COMPLETE. VSS, SCHEDULED CARDIAC MEDICATIONS GIVEN. PT A/O X3. PAIN WELL CONTROLLED. FAMILY IN ROOM. IV FLUIDS INFUSING PER MD ORDERS, SITE WNL. PT DENIES ADDITIONAL NEEDS. CALL LIGHT IN REACH.
--- NOTE | 2018-04-24 22:15 | NUR ---
BS RESULT OF 153. INSULIN SS 1 UNIT GIVEN. LANTUS 12 UNITS ALSO GIVEN. NEW BAG OF IV FLUIDS INFUSING PER MD ORDERS, SITE WNL. PT DENIES FURTHER NEEDS. CALL LIGHT IN REACH.
--- NOTE | 2018-04-25 02:30 | NUR ---
MORNING ASSESSMENT COMPLETE. NO NEW CONCERNS. PT A/O X3, DENIES PAIN. PT DENIES DIZZINESS, SOB, AND DYSPNEA. CALL LIGHT IN REACH. IV FLUIDS INFUSING, SITE WNL.
--- NOTE | 2018-04-25 04:36 | NUR ---
PT HAD A GOOD NIGHT, SLEPT FOR MOST OF THE EVENING. PT A/OX3, USES CALL LIGHT APPROPERIATELY. PT ON ADA 1800 CALORIE DIET, TOLERATING WELL, DENIES NAUSEA. VOIDING QS URINE. BOWEL TONES ACTIVE. INSULIN SS WITH PM LANTUS. VSS, PT ON RA AND TELE #7 NSR HR WNL. PT AMBULATES SBA. IV FLUIDS PER MD ORDERS, SITE WNL.
--- NOTE | 2018-04-25 07:34 | NUR ---
BEDSIDE REPORT RECEIVED FROM AMBROCIO COTE. WHITE BOARD UPDATED. PATIENT SLEEPING AT THIS TIME. NS INFUSING AT 125. TELE [address] HR 61. POSSIBLE DISCHARGE TODAY. ON ROOM AIR. CONTACT/DROPLET ISOLATION IN PLACE.
--- NOTE | 2018-04-25 08:08 | NUR ---
ASSISTED PATIENT TO BATHROOM,SBA 1 P,PATIENT DOSE HIS OWN CARES,CALL LIGHT IN REACH, FRESH WATER GIVEN,
--- NOTE | 2018-04-25 08:42 | NUR ---
PT RESTING IN BED WATCHING TELEVISION. DRY COUGH AT TIMES. NO MUCUS PRODUCTION. ROCEPHIN INFUSED. IVF INFUSING NOW. BILAT LUNGS DIM THROUGHOUT. ON ROOM AIR.
[2018-04-25] MEDS ORDERED: LEVAQUIN750 MG PO (09:27)
[2018-04-25] MEDS ORDERED: VENTOLIN HFA18 GM INH (09:29)
== END 2018-04-25 11:50 | disposition home or self-care (01) | DRG 195 ==
LOC: ED 06:42 → MS 10:21
PROVIDERS: ADMIT Internal Medicine
DX: J12.89 Other viral pneumonia (principal); E11.9 Type 2 diabetes mellitus without complications; E83.42 Hypomagnesemia; I25.10 Atherosclerotic heart disease of native coronary artery without angina pectoris; I48.91 Unspecified atrial fibrillation; L40.9 Psoriasis, unspecified; I10 Essential (primary) hypertension; Z87.891 Personal history of nicotine dependence; Z79.4 Long term (current) use of insulin; Z95.5 Presence of coronary angioplasty implant and graft
CPT/HCPCS: 36415; 71046; 80048; 80053; 81001; 83605; 83690; 83735; 84484; 85025; 87040; 87070; 87205; 87502; 93005; 93010; 94640; 96361; 96365; 96367; 96375; 96376; 99285-25; J0456; J0696; J1170; J1650; J1815; J1885; J2405; J3475; J7030

== ENCOUNTER 2019-01-19 20:31 | Emergency (ER) | payer BC, OTHER ==
[~2019-01-19] VITALS: Ht 180.3 cm; Wt 95.2 kg
[~2019-01-19 20:31] MED LIST changes: +CLOBETASOL EMOL15 GM TOP; +FOLIC ACID1 MG PO; +NORVASC10 MG PO; +VENTOLIN HFA18 GM INH; +VITAMIN D35000 UNIT PO
--- OUTSIDE RECORDS SUMMARY | 2019-01-19 20:34 | XMS ---
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 Melody VISIT COUNT (12 MO.) 3 MISTI Nolasco TOTAL 3 NOTE: Visits indicate total known visits. ED/UCC VISIT TRACKING (12 MO.) 01/19/2019 20:32 [facility] TYPE: Emergency COMPLAINT: - BLOOD PRESSURE PROB 12/07/2018 16:25 [facility] TYPE: Emergency COMPLAINT: - HIGH BP DIAGNOSES: - Allergy status to penicillin - Other long term acute care registered nurse (current) drug therapy - watermelon inspector (current) use of insulin - watermelon inspector (current) use of aspirin - Personal history of nicotine dependence - Presence of coronary angioplasty implant and graft - Essential (primary) hypertension - Type 2 diabetes mellitus without complications 04/22/2018 06:43 [facility] [place] TYPE: Emergency COMPLAINT: - WEAKNESS/VOMITING INPATIENT VISIT TRACKING (12 MO.) 04/22/2018 10:21 [facility] [place] TYPE: Medical Surgical COMPLAINT: - BILATERAL PNEUMONIA DIAGNOSES: - Hypomagnesemia - Unspecified atrial fibrillation - Essential (primary) hypertension - USP (current) use of insulin - Unspecified atrial fibrillation - Other viral pneumonia - Presence of coronary angioplasty implant and graft - Personal history of nicotine dependence - Personal history of nicotine dependence - USP (current) use of insulin - Type 2 diabetes mellitus without complications - Essential (primary) hypertension - Hypomagnesemia - Psoriasis, unspecified - Atherosclerotic heart disease of [place] coronary artery without angina pectoris - Presence of coronary angioplasty implant and graft - Type 2 diabetes mellitus without complications - Atherosclerotic heart disease of [place] coronary artery without angina pectoris - Psoriasis, unspecified [email or web address]
[2019-01-19] MEDS ORDERED: GLUCOPHAGE500 MG PO (20:56)
[2019-01-19] MEDS ORDERED: ZESTRIL40 MG PO (20:57)
--- NOTE | 2019-01-20 13:55 | EKG ---
[facility] [address] [facility] [place], [place] [address] Signed Normal sinus rhythm Minimal voltage criteria for LVH, may be normal variant Inferior infarct , age undetermined Abnormal ECG When compared with ECG of 07-DEC-2018 17:18, No significant change was found Confirmed by NANY GRAVES DO ([id number]) on 01/20/2019 1:55:18 PM Electronically Signed By: NANY GRAVES DO 01/20/19 1355 PATIENT NAME: LIVE ROJAS Aliza Electrocardiogram DATE OF : 67 PHYSICIAN: NANY GRAVES DO REPORT #: [id number] REPORT IS CONFIDENTIAL AND NOT TO BE RELEASED WITHOUT AUTHORIZATION
== END 2019-01-20 00:48 | disposition home or self-care (01) ==
LOC: ED 20:31
DX: R55 Syncope and collapse (principal); E86.0 Dehydration; I12.9 Hypertensive chronic kidney disease with stage 1 through stage 4 chronic kidney disease, or unspecified chronic kidney disease; N18.9 Chronic kidney disease, unspecified; E11.9 Type 2 diabetes mellitus without complications; Z95.5 Presence of coronary angioplasty implant and graft; Z88.0 Allergy status to penicillin; Z79.4 Long term (current) use of insulin; Z79.82 Long term (current) use of aspirin; Z79.899 Other long term (current) drug therapy
CPT/HCPCS: 80053; 83735; 84484; 85025; 93005; 93010; 96360; 96361; 99284-25; J7030

== ENCOUNTER 2019-02-10 22:57 | Emergency (ER) | payer BC, OTHER ==
[~2019-02-10] VITALS: Ht 180.3 cm; Wt 95.2 kg
--- OUTSIDE RECORDS SUMMARY | ~2019-02-10 | XMS | Encounter Summary ---
Demographics + + + | Address | [facility] [address] | | | [place] [address] | + + + | Home Phone | | + + + | Preferred Language | Unknown | + + + | Marital Status | Legally | + + + | Jew Affiliation | 1041 | + + + | Race | Unknown | + + + | Ethnic Group | Unknown | + + + Author + + + | Author | [facility] | | | and [place] | + + + | Organization | [facility] | | | and [place] | + + + | Address | Unknown | + + + | Phone | Unavailable | + + + Support + + + + + | Name | Relationship | Address | Phone | + + + + + | Halina Robertson | ECON | [address] | | | | | [address] [place] | | | | | [address] | | + + + + + | Halina Hankins | ECON | [address] | | | | [address] | | | | | [address] | | + + + + + | Halina Robertson | ECON | Unknown | | + + + + + Care Team Providers + +------+ + | Care Developer Evangelist Name | Role | Phone | + +------+ + | Bourret, Yue H PA-C | PCP | Unavailable | + +------+ + Encounter Details +--------+ + + + + | Date | Type | Department | Care Team | Description | +--------+ + + + + | 01/24/ | Orders Only | [facility] [place] | Shea Pedraza W, | CKD (chronic kidney | | 2019 | | NEPHROLOGY [address] | disease) stage 3, | | | | [address] | [address] | GFR 30-59 ml/min | | | | [place], [place] | [place] [address] | ([facility]) (Primary Dx) | | | | [address] | [phone] | | | | | [phone] | | | +--------+ + + + [...] + +---------+ + | Alcohol Use | Drinks/We | oz/Week | Comments | | | ek | | | + + +---------+ + | Not [...] encounter Progress Notes Yvonne Hahn RN - 01/24/2019 0920 [facility] for upcoming nephrology appointment sent to: [facility] documented in this encounter Plan of Treatment +--------+---------+ + + + | Date | Type | Specialty | Care Team | Description | +--------+---------+ + + + | 02/13/ | Office | Nephrology | Shea Pedraza, | | | 2018 | Visit | | MD [facility] | | | | | | [address] | | | | | | [place] [address] | | | | | | [phone] | | | | | | | | +--------+---------+ + + + + +--------+ + + | Name | Priori | Associated Diagnoses | Order Schedule | | | ty | | | + +--------+ + + | Protein/Creatinine Ratio, Urine | Routin | CKD (chronic | 1 Occurrences | | | e | kidney disease) | starting 01/24/2019 | | | | stage 3, GFR 30-59 | until 01/25/2020 | | | | ml/min (HCC) | | + +--------+ + + | Renal Function Panel | Routin | CKD (chronic | 1 Occurrences | | | e | kidney disease) | starting 01/24/2019 | | | | stage 3, GFR 30-59 | until 01/25/2020 | | | | ml/min (HCC) | | + +--------+ + + | Urinalysis With Microscopic | Routin | CKD (chronic | 1 Occurrences | | | e | kidney disease) | starting 01/24/2019 | | | | stage 3, GFR 30-59 | until 01/25/2020 | | | | ml/min (HCC) | | + +--------+ + + documented as of this encounter Visit Diagnoses + + | Diagnosis | + + | CKD (chronic kidney disease) stage 3, GFR 30-59 ml/min ([facility]) - Primary Chronic kidney | | disease, Stage III (moderate) | + + documented in this encounter"
--- OUTSIDE RECORDS SUMMARY | ~2019-02-10 | XMS | Clinical Summary ---
Demographics + + + | Address | [facility] 1974 | | | [place] [address] | + + + | Home Phone | | + + + | Preferred Language | Unknown | + + + | Marital Status | Legally | + + + | Zoroastrian Affiliation | 1041 | + + + | Race | Unknown | + + + | Ethnic Group | Unknown | + + + Author + + + | Author | [facility] | | | and [place] | + + + | Organization | [facility] | | | and [place] | + + + | Address | Unknown | + + + | Phone | Unavailable | + + + Support + + + + + | Name | Relationship | Address | Phone | + + + + + | Halina Robertson | ECON | [address] | | | | | [address] | | | | | [address] | | + + + + + | Halina Hankins | ECON | [address] | | | | [place] | | | | | [address] | | + + + + + | Halina Robertson | ECON | Unknown | | + + + + + Care Team Providers + +------+ + | Care Bellhop Name | Role | Phone | + +------+ + | Bourret, Yue H PA-C | PCP | Unavailable | + +------+ + Allergies + + + + + + | Active Allergy | Reactions | Severity | Noted | Comments | | | | | Date | | + + + + + + | Penicillins | Anaphylaxis, Hives, | High | 04/03/20 | | | | Rash, Swelling | | 13 | | + + + + + + Medications + + + +---------+------+------+-------+ | Medication | Sig | Dispensed | Refills | Star | End | Statu | | | | | | t | Date | s | | | | | | Date | | | + + + +---------+------+------+-------+ | amLODIPine | Take 5 mg by mouth | | 0 | | | Activ | | (NORVASC) 5 mg | Daily. | | | | | e | | tablet | | | | | | | + + + +---------+------+------+-------+ | aspirin 81 MG EC | Take 81 mg by mouth | | 0 | | | Activ | | tablet | Daily. | | | | | e | + + + +---------+------+------+-------+ | fenofibrate | Take 160 mg by mouth | | 0 | | | Activ | | (LOFIBRA, TRIGLIDE) | nightly. | | | | | e | | 160 mg tablet | | | | | | | + + + +---------+------+------+-------+ | insulin aspart | Inject under the | | 0 | | | Activ | | (NOVOLOG) 100 | skin 3 times daily | | | | | e | | units/mL injection | (before meals). Per | | | | | | | | sliding scale | | | | | | + + + +---------+------+------+-------+ | insulin glargine | Inject 20 Units | | 0 | | | Activ | | (LANTUS) 100 | under the skin | | | | | e | | units/mL injection | nightly. | | | | | | | (vial) | | | | | | | + + + +---------+------+------+-------+ | metoprolol | Take 100 mg by mouth | | 0 | | | Activ | | succinate | Daily. | | | | | e | | (TOPROL-XL) 100 mg | | | | | | | | ER tablet | | | | | | | + + + +---------+------+------+-------+ | nitroglycerin | Place 0.4 mg under | | 0 | | | Activ | | (NITROSTAT) 0.4 mg | the tongue as needed | | | | | e | | SL tablet | for Chest pain. | | | | | | + + + +---------+------+------+-------+ | rosuvastatin | Take 20 mg by mouth | | 0 | | | Activ | | (CRESTOR) 20 mg | nightly. | | | | | e | | tablet | | | | | | | + + + +---------+------+------+-------+ | rivaroxaban | Take 1 tablet by | | 0 | 05/3 | | Activ | | (XARELTO) 20 mg | mouth Daily (with | | | 0/20 | | e | | tablet | dinner). | | | 18 | | | + + + +---------+------+------+-------+ | folic acid 1 mg | Take 1 mg by mouth | | 0 | 04/0 | | Activ | | tablet | Daily. | | | 3/20 | | e | | | | | | 19 | | | + + + +---------+------+------+-------+ | lisinopril | Take 40 mg by mouth | | 0 | 03/0 | | Activ | | (PRINIVIL, ZESTRIL) | Daily. | | | 7/20 | | e | | 20 mg tablet | | | | 19 | | | + + + +---------+------+------+-------+ | cholecalciferol | Take 1 tablet by | 30 | 0 | 04/1 | | Activ | | (CHOLECALCIFEROL) | mouth Daily. | tablet | | 6/20 | | e | | 5000 units TABS | | | | 19 | | | + + + +---------+------+------+-------+ | SITagliptin | Take 1 tablet by | 30 | 11 | 07/2 | | Activ | | (JANUVIA) 50 MG | mouth Daily. | tablet | | 3/20 | | e | | tablet | | | | 19 | | | + + + +---------+------+------+-------+ | furosemide (LASIX) | Take 1 tablet by | 30 | 11 | 07/2 | | Activ | | 40 mg tablet | mouth Daily. | tablet | | 3/20 | | e | | | | | | 19 | | | + + + +---------+------+------+-------+ Active Problems + + + | Problem | Noted Date | + + + | CKD (chronic kidney disease) stage 3, GFR 30-59 ml/min | 11/14/2018 | + + + | Vitamin D deficiency | 10/13/2017 | + + + | Diabetic neuropathy associated with type 2 diabetes mellitus | 10/13/2017 | + + + + + | Overview: Bilateral feet uncontrolled | + + + + + | Ischemic heart disease | 10/13/2017 | + + + | Anticoagulated | 09/15/2017 | + + + | Psoriasis | 09/15/2017 | + + + | Diarrhea | 03/23/2017 | + + + | Encounter for screening for malignant neoplasm of colon | 03/23/2017 | + + + | Essential hypertension with goal blood pressure less than 130/85 | 08/12/2016 | + + + | Diabetic peripheral neuropathy | 08/12/2014 | + + + | 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 | 08/12/2014 | + + + | Hyperlipidemia | 11/15/2013 | + + + | A-fib | 04/03/2013 | + + + | Coronary atherosclerosis | 04/03/2013 | + + + | DM (diabetes mellitus) | 04/03/2013 | + + + Resolved Problems + + + + | Problem | Noted | Resolved | | | Date | Date | + + + + | ATN (acute tubular necrosis) | 10/14/19 | | | | 18 | 9 | + + + + + + | Overview: 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, non-oliguric | + + Encounters +--------+ + + + + | Date | Type | Specialty | Care Team | Description | +--------+ + + + + | 01/24/ | Orders Only | Nephrology | Shea Pedraza, | CKD (chronic kidney | | 2018 | | | MD | disease) stage 3, | | | | | | GFR 30-59 ml/min | | | | | | (HCC) (Primary Dx) | +--------+ + + + + | 11/23/ | Telephone | Nephrology | Shea Pedraza, | Nephrology | | 2018 | | | MD | Appointment | +--------+ + + + + | 11/14/ | Office | Nephrology | Shea Pedraza, | CKD (chronic kidney | | 2019 | Visit | | MD | disease) stage 3, | | | | | | GFR 30-59 ml/min | | | | | | (HCC) (Primary Dx); | | | | | | Essential | | | | | | hypertension with | | | [...] | | | | use of insulin ([facility]) | +--------+ + + + + | 11/14/ | Abstract | Nephrology | Shea Pedraza, | | | 2018 | | | MD | | +--------+ + + + + | 11/14/ | Abstract | Nephrology | Shea Pedraza, | | | 2018 | | | MD | | +--------+ + + + + from Last 3 Months Immunizations + + + + | Name | Dates Previously Given | Next Due | + + + + | HEP A, 2 DOSE | 08/20/2015 | | | (ADULT) | | | + + + + | HEP A/HEP B, 3 DOSE | 01/22/2013, 11/10/2012, 09/27/2012 | | | (ADULT) | | | + + + + | INFLUENZA PF | 01/03/2018, 03/02/2017 | | | QUAD(PED/ADOL/ADULT) | | | | ,PSKT or VIAL | | | + + + + | PNEUMOCOCCAL | 10/16/2010 | | | POLYSACCHARIDE | | | | 23-VALENT (PPSV23) | | | + + + + Family History + + +------+ + | Medical History | Relation | Name | Comments | + + +------+ + | Diabetes | Brother | | | + + +------+ + | Diabetes | Brother | | | + + +------+ + | Diabetes | Father | | | + + +------+ + | Heart attack | Father | | | + + +------+ + | Hypertension | Father | | | + + +------+ + | Cancer | Mother | | | + + +------+ + | Diabetes | Mother | | | + + +------+ + | Hypertension | Mother | | | + + +------+ + | Diabetes | Sister | | | + + +------+ + | Stroke | Sister | | | + + +------+ + | Diabetes | Sister | | | + + +------+ + | Kidney disease | Neg Hx | | | + + +------+ + + +------+ + + | Relation | Name | Status | Comments | + +------+ + + | Brother | | | | | | | (Age | | | | | 45) | | + +------+ + + | Brother | | | | + +------+ + + | Brother | | | murdered | + +------+ + + | Father | | | | | | | (Age | | | | | 50's) | | + +------+ + + | Mother | | | | | | | (Age | | | | | 71) | | + +------+ + + | Sister | | | | | | | (Age | | | | | 45) | | + +------+ + + | Sister | | Alive | | + +------+ + + Social History + + + [...] recent travel history available. | + + Last Filed Vital Signs + + + + | Vital Sign | Reading | Time Taken | + + + + | Blood Pressure | 172/100 | 11/14/20181623 PDT | + + + + | Pulse | 87 | 11/14/20181623 PDT | + + + + | Temperature | 36.9 C (98.5 F) | 08/08/2018927 PDT | + + + + | Respiratory Rate | 16 | 08/08/2018927 PDT | + + + + | Oxygen Saturation | 98% | 11/14/20181623 PDT | + + + + | Inhaled Oxygen | - | - | | Concentration | | | + + + + | Weight | 92.3 kg (203 lb 7.8 | 11/14/2018 1624 PDT | | | oz) | | + + + + | Height | 180.3 cm (5' 11") | 08/08/2018927 PDT | + + + + | Body Mass Index | 28.38 | 08/08/2018927 PDT | + + + + Plan of Treatment +--------+---------+ + + + | Date | Type | Specialty | Care Team | Description | +--------+---------+ + + + | 02/13/ | Office | Nephrology | Shea Pedraza, | | | 2019 | Visit | | [address] | | | | | | [address] [place] | | | | | | [place] [address] | | | | | | [phone] | | | | | | | | +--------+---------+ + + + + + + + + | Health Maintenance | Due Date | Last Done | Comments | + + + + + | Diabetic Eye Exam | | | | | | 4 | | | + + + + + | Diabetic Foot Exam | | | | | | 4 | | | + + + + + | Vaccine: | | | | | Dtap/Tdap/Td (1 - | 5 | | | | Tdap) | | | | + + + + + | Colorectal Cancer | | | | | Screening | 6 | | | | (Colonoscopy) | | | | + + + + + | Vaccine: Zoster (1 | | | | | of 2) | 6 | | | + + + + + | Hemoglobin A1c | | 07/03/2018, 09/27/2017, | | | Screening | 9 | 09/16/2017, Additional history | | | | | exists | | + + + + + | Vaccine: Influenza | | 01/03/2018, 03/02/2017 | | | (#1) | 9 | | | + + + + + | Vaccine: | Completed | 10/16/2010 | | | Pneumococcal 19-64 | | | | | (PPSV23 only) Medium | | | | | Risk | | | | + + + + + Procedures + +--------+ + + + | Procedure Name | Priori | Date/Time | Associated Diagnosis | Comments | | | ty | | | | + +--------+ + + + | LABS - EXTERNAL SCAN | | 11/13/2018 | | Results for this | | | | 0:00 PDT | | procedure are in the | [...] | EXTERNAL LAB: BUN | Routin | 11/13/2018 | | Results [...] section. | + +--------+ + + + from Last 3 Months Results External Lab: BUN (11/13/2018) + +--------+ + [...] 1.024 | | EXTERNAL | | | [place], | | | LAB | | | [...] | + +---------+ + + External Lab: Protein/Creatinine Ratio (11/13/2018) + + [...] + | | + + External Lab: eGFR (11/13/2018) + [...] | | | + +---------+ + + LABS - EXTERNAL SCAN (11/13/2018 0:00 PDT) + + + | Narrative | Performed At | + + + | Ordered by an | | | unspecified provider. | | + + + Protein/Creatinine Ratio, Urine (11/13/2018) + +--------+ + [...] + + | Urine | + + from Last 3 Months Insurance + +--------+ +--------+-------+---------+--------+ | Payer | Benefi | Subscriber | Effect | Phone | Address | Type | | | t Plan | ID | brina | | | | | | / | | Dates | | | | | | Group | | | | | | + +--------+ +--------+-------+---------+--------+ | BCBS | BCBS | [id number] | 09/24/19 | | | PPO | | | OOS | C | 19-Pre | | | | | | PPO | | sent | | | | + +--------+ +--------+-------+---------+--------+ | [facility] | IHS | [id number] | 05/01/19 | | | Indemn | | SERVICE | YELLOW | | 15-Pre | | | ity | | | HAWK | | sent | | | | + +--------+ +--------+-------+---------+--------+ + +--------+ +--------+ + + | Guarantor Name | Accoun | Relation to | Date | Phone | Billing Address | | | t Type | Patient | of | | | | | | | | | | + +--------+ +--------+ + + | Joselito Robertson | Person | Self | [birth year] | [address] 1974 | | | al/Lefty | | 1965 | [phone] | [place] | | | [place] | | | [address] (Home) | [address] | + +--------+ +--------+ + + Advance Directives Patient has advance care planning documents on file. For more information, please contact:[facility] [place] [address]
--- OUTSIDE RECORDS SUMMARY | ~2019-02-10 | XMS | Encounter Summary ---
Demographics + + + | Address | [facility] 1974 | | | [place] [address] | + + + | Home Phone | | + + + | Preferred Language | Unknown | + + + | Marital Status | Legally | + + + | Samaritan Affiliation | 1041 | + + + | Race | Unknown | + + + | Ethnic Group | Unknown | + + + Author + + + | Author | [facility] | | | and [place] | + + + | Organization | [facility] | | | and [place] | + + + | Address | Unknown | + + + | Phone | Unavailable | + + + Support + + + + + | Name | Relationship | Address | Phone | + + + + + | Halina Robertson | ECON | [address] | | | | | [address] | | | | | [address] | | + + + + + | Halina Hankins | ECON | [address] | | | | | [address] | | | | | [address] | | + + + + + | Halina Robertson | ECON | Unknown | | + + + + + Care Team Providers + +------+ + | Care Software Engineering Supervisor Name | Role | Phone | [...] | NEPHROLOGY [address] | disease) stage 3, | | | | [address] | [address] | GFR 30-59 ml/min | | | | [place], [place] | [place] [address] | ([facility]) (Primary Dx) | | | | [address] | [phone] | | | | | [phone] | | | +--------+ + + + [...] 2018 | Visit | | MD Harmony Sharma | | | | | | [address] | | | | | | [place] [address] | | | | | | [phone] | | | | | | | [...] stage 3, GFR 30-59 ml/min ([facility]) - Primary Chronic kidney | | disease, Stage III (moderate) | + + documented in this encounter"
--- OUTSIDE RECORDS SUMMARY | ~2019-02-10 | XMS | Encounter Summary ---
Demographics + + + | Address | [facility] 1974 | | | [place] [address] | + + + | Home Phone [...] + | Author | [facility] | | | and [place] | + + + | Organization | [facility] | | | and [place] | + + + | Address | Unknown | + + + | Phone | Unavailable | + + + Support + + + + + | Name | Relationship | Address | Phone | + + + + + | Halina Robertson | ECON | [address] | | | | | [place] [address] | | | | | [address] | | + + + + + | Halina Hankins | ECON | [address] | | | | | [address] | | | | | [address] | | + + + + + | Halina Robertson | ECON | Unknown | | + + + + + Care Team Providers + +------+ + | Care Patent Chemist Name | Role | Phone | + +------+ + | Bourret, Yue H PA-C | PCP | Unavailable | + +------+ + Encounter Details +--------+ + + + + | Date | Type | Department | Care Team | Description | +--------+ + + + + | 11/14/ | Abstract | [facility] | Shea Pedraza W, | | | 2018 | | NEPHROLOGY [address] | | | | | [address] | [address] | | | | | [place] | [place] [address] | | | | | [address] | [phone] | | | | | [phone] | | | +--------+ + + + [...] | | | | | [address] [facility] | | | | | | [place] [address] | | | | | | [phone] | | | | | | | [...] Urine | + + External Lab: JUS (11/13/2018) + +--------+ + + + | [...] + + | Carbon | 22 | - | EXTERNAL | | | Dioxide, | [...] 1.024 | | EXTERNAL | | | [place], | | | LAB | | | [...]
--- OUTSIDE RECORDS SUMMARY | ~2019-02-10 | XMS | Encounter Summary ---
Demographics + + + | Address | [facility] 1974 | | | [place] [address] | + + + | Home Phone | | + + + | Preferred Language | Unknown | + + + | Marital Status | Legally | + + + | Sikhism Affiliation | 1041 | + + + | Race | Unknown | + + + | Ethnic Group | Unknown | + + + Author + + + | Author | [facility] | | | and [place] | + + + | Organization | [facility] | | | and [place] | + + + | Address | Unknown | + + + | Phone | Unavailable | + + + Support + + + + + | Name | Relationship | Address | Phone | + + + + + | Halina Robertson | ECON | [address] | | | | | [address] [place] | | | | | [address] | | + + + + + | Halina Hankins | ECON | [address] | | | | | [address] | | | | | [address] | | + + + + + | Halina Robertson | ECON | Unknown | | + + + + + Care Team Providers + +------+ + | Care Mission Coordinator Name | Role | Phone | [...] + + | 11/23/ | Telephone | [facility] [place] | Shea Pedraza W, | Nephrology | | 2019 | | NEPHROLOGY [address] | Appointment | | | | [address] | [address] [place] | | | | | [place] | [place] [address] | | | | | [address] | [phone] | | | | | [phone] | | | +--------+ + + + [...] | | | | | | [address] | | | | | | [place] [address] | | | | | | [phone] | | | | | | | | +--------+---------+ + + + documented as of this encounter Visit Diagnoses Not on filedocumented in this encounter"
--- OUTSIDE RECORDS SUMMARY | ~2019-02-10 | XMS | Clinical Summary ---
Demographics + + + | Address | [address] | | | [place] [address] | + + + | Home Phone | | + + + | Preferred Language | Unknown | + + + | Marital Status | | + + + | Islam Affiliation | 1041 | + + + | Race | Unknown | + + + | Ethnic Group | Unknown | + + + Author + + + | Author | [facility] (Historical as of | | | 12-09-18) | + + + | Organization | [facility] (Historical as of | | | 12-09-18) [...] [place] | | | | | [address] | | + + + + + [...] Team Providers + +------+ + | Care Director Of Campus Recreation Name | Role | Phone | + [...] +------+-------+---------+ | [employer] | FC-NET | [id number] | | | | | | WORK | | | | | + +--------+ +------+-------+---------+ | [employer] | YELLOW | [id number] | | | | | PLANS | [...] | | yuri/Lefty | | 1965 | [phone] | [place] | | | [place] | | | [address]: | [address] | | | | | | | | | | | | | [phone] | | | | | | [phone] | | + +--------+ +--------+ + +
--- OUTSIDE RECORDS SUMMARY | ~2019-02-10 | XMS | Encounter Summary ---
Demographics + + + | Address | [facility] 1974 | | | [place] [address] | + + + | Home Phone | | + + + | Preferred Language | Unknown | + + + | Marital Status | Legally | + + + | Adventist Affiliation | 1041 | + + + | Race | Unknown | + + + | Ethnic Group | Unknown | + + + Author + + + | Author | [facility] | | | and [place] | + + + | Organization | [facility] | | | and [place] | + + + | Address | Unknown | + + + | Phone | Unavailable | + + + Support + + + + + | Name | Relationship | Address | Phone | + + + + + | Halina Robertson | ECON | [address] | | | | | [place] | | | | | [address] | | + + + + + | Halina Hankins | ECON | [address] | | | | [address] | | | | | [address] | | + + + + + | Halina Robertson | ECON | Unknown | | + + + + + Care Team Providers + +------+ + | Care Outdoor Pursuits Instructor Name | Role | Phone | + [...] | kidney | PA-C [address] | MD [address] | | | | | injury) | [address] | [address] | | | | | ([facility]) | [address] | [address] | | | | | Procedures | [address] | [place] | | | | | [place] OFFICE | [facility] | [address] Phone: | | | | | OUTPATIENT | [place] | [phone] | | | | | VISIT 25 | [address] | Fax: | | | | | MINUTES | Phone: | [phone] | | | | | | [phone] | | | | | | | Fax: | | | | | | | [phone] | | +--------+--------+ + + + + Encounter Details +--------+---------+ + + + | Date | Type | Department | Care Team | Description | +--------+---------+ + + + | 11/14/ | Office | [facility] [place] | Shea Pedraza W, | CKD (chronic kidney | | 2019 | Visit | NEPHROLOGY [address] | disease) stage 3, | | | | [address] | [address] [place] | GFR 30-59 ml/min | | | | [place] | [place] [address] | ([facility]) (Primary Dx); | | | | [address] | [phone] | Essential | | | | [phone] | | hypertension with | | | [...] | | | | use of insulin (HCC) | +--------+---------+ + + + Social History [...] | Temperature | - | - | + + + + | Respiratory Rate | - | - | + + + + | Oxygen Saturation | 98% | 11/14/20181623 PDT | + + + + | Inhaled Oxygen | - | - | | Concentration | | | + + + + | Weight | 92.3 kg (203 lb 7.8 | 11/14/20181623 PDT | | | oz) | | + + + + | Height | - | - | + + + + | Body Mass Index | 28.38 | 08/08/2018927 PDT | + + + + documented in this encounter Patient Instructions Patient Instructions Seha Pedraza MD - 11/14/2018 16:30 PDTTo-do 1. Increase Furosemide to 40 mg (full tablet) once a day. 2. Decrease Januvia to 50 mg once a day. documented in this encounter Progress Notes Shea Pedraza MD - 11/14/2018 1630 PDT Nephrology Follow-up Visit Visit date: 11/14/2018 Primary care provider: Yue Mcguire PA-C Chief Complaint Patient presents with Chronic Kidney Disease, Stage III HPI: Joselito Robertson is a 53 y.o. male with type 2 DM, hypertension, proteinuric chronic kidn ey disease. Pt reports his main issue is chronic diarrhea. Pt states he was evaluated by Dr. Garcia (GI ) in [place]. 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 documented in this enc ounter Plan of Treatment +--------+---------+ + + + | Date | Type | Specialty | Care Team | Description | +--------+---------+ + + + | 02/13/ | Office | Nephrology | Shea Pedraza, | | | 2018 | Visit | | MD Harmony Sharma | | | | | | [facility] [address] | | | | | | [place] [address] | | | | | | [phone] | | | | | | | | +--------+---------+ + + + documented as of this encounter Visit Diagnoses + + | Diagnosis | + + | CKD (chronic kidney disease) stage 3, GFR 30-59 ml/min ([facility]) - Primary Chronic kidney | | disease, Stage III (moderate) | + + | Essential hypertension with goal blood pressure less than 130/85 | + + | Diarrhea, unspecified type | + + | Type 2 diabetes mellitus with stage 3 chronic kidney disease, with long-term current | | use of insulin (HCC) | + + documented in this encounter"
--- OUTSIDE RECORDS SUMMARY | ~2019-02-10 | XMS | Clinical Summary ---
Demographics + + + | Address | [facility] [address] | | | [place] [address] | + + + | Home Phone | | + + + | Preferred Language | Unknown | + + + | Marital Status | Legally | + + + | Mandaen Affiliation | 1041 | + + + | Race | Unknown | + + + | Ethnic Group | Unknown | + + + Author + + + | Author | [facility] | | | and [place] | + + + | Organization | [facility] | | | and [place] | + + + | Address | Unknown | + + + | Phone | Unavailable | + + + Support + + + + + | Name | Relationship | Address | Phone | + + + + + | Halina Robertson | ECON | [address] | | | | | [place] | | | | | [address] | | + + + + + | Halina Hankins | ECON | [address] | | | | | [address] | | | | | [address] | | + + + + + | Halina Robertson | ECON | Unknown | | + + + + + Care Team Providers + +------+ + | Care Emergency Room Physician Name | Role | Phone | + [...] | | | | use of insulin ([facility]) | +--------+ + + + + | [...] | | | | | [place] [address] | | | | | | [phone] | | | | | | | [...] 1.024 | | EXTERNAL | | | [place], | | | LAB | | | [...] +--------+ +--------+-------+---------+--------+ | BCBS | BCBS | [id number] | 09/24/19 | | | PPO | | | OOS | C | 19-Pre | | | | | | PPO | | sent | | | | + +--------+ +--------+-------+---------+--------+ | [facility] | IHS | [id number] | 05/01/19 | | | Indemn | [...] | | al/Lefty | | 1965 | [phone] | [place] | | | [place] | | | 2 (Home) | [address] | + +--------+ +--------+ + + Advance Directives Patient has advance care planning documents on file. For more information, please contact:[facility] [address]
--- OUTSIDE RECORDS SUMMARY | ~2019-02-10 | XMS | Encounter Summary ---
Demographics + + + | Address | [facility] [address] | | | [place] [address] | + + + | Home Phone | | + + + | Preferred Language | Unknown | + + + | Marital Status | Legally | + + + | Baptism Affiliation | 1041 | + + + [...] + | Halina Robertson | ECON | [address] | | | | | [address] | | | | | [address] | | + + + + + | Halina Hankins | ECON | [address] | | | | [place] | | | | | [address] | | + + + + + | Halina Robertson | ECON | Unknown | | + + + + + Care Team Providers + +------+ + | Care Usability Architect Name | Role | Phone | [...] + + | 11/23/ | Telephone | [facility] [place] | Shea Pedraza W, | Nephrology | | 2019 | | NEPHROLOGY [address] | [address] | Appointment | | | | [address] | [address] [place] | | | | | [place] | [place] [address] | | | | | [address] | [phone] | | | | | [phone] | | | +--------+ + + + [...] | | | | | [place] [address] | | | | | | [phone] | | | | | | | | +--------+---------+ + + + documented as of this encounter Visit Diagnoses Not on filedocumented in this encounter"
--- OUTSIDE RECORDS SUMMARY | ~2019-02-10 | XMS | Encounter Summary ---
Demographics + + + | Address | [facility] [address] | | | [place] [address] | + + + | Home Phone [...] + + + | Author | [facility] | | | and [place] | + + + | Organization | [facility] | | | and [place] | + + + | Address | Unknown | + + + | Phone | Unavailable | + + + Support + + + + + | Name | Relationship | Address | Phone | + + + + + | Halina Robertson | ECON | [address] | | | | | [address] | | | | | [address] | | + + + + + | Halina Hankins | ECON | [address] | | | | [address] | | | | | [address] | | + + + + + | Halina Robertson | ECON | Unknown | | + + + + + Care Team Providers + +------+ + | Care Sales And Marketing Representative Name | Role | Phone | + +------+ + | Bourret, Yue H PA-C | PCP | Unavailable | + +------+ + Encounter Details +--------+ + + + + | Date | Type | Department | Care Team | Description | +--------+ + + + + | 11/14/ | Abstract | [facility] | Shea Pedraza W, | | | 2018 | | NEPHROLOGY [address] | [address] | | | | | [address] | [address] [place] | | | | | [place] | [place] [address] | | | | | [address] | [phone] | | | | | [phone] | | | +--------+ + + + [...] | | | | | [address] [facility] | | | | | | [place] [address] | | | | | | [phone] | | | | | | | [...] 1.024 | | EXTERNAL | | | [place], | | | LAB | | | [...]
--- OUTSIDE RECORDS SUMMARY | ~2019-02-10 | XMS | Encounter Summary ---
Demographics + + + | Address | [facility] [address] | | | [place] [address] | + + + | Home Phone [...] + | Halina Robertson | ECON | [address] | | | | | [place] [address] | | | | | [address] | | + + + + + | Halina Hankins | ECON | [address] | | | | [address] | | | | | [address] | | + + + + + | Halina Robertson | ECON | Unknown | | + + + + + Care Team Providers + +------+ + | Care Cad Designer Drafter Name | Role | Phone | + +------+ + | Bourret, Yue H PA-C | PCP | Unavailable | + +------+ + Encounter Details +--------+ + + + + | Date | Type | Department | Care Team | Description | +--------+ + + + + | 11/14/ | Abstract | [facility] | Shea Pedraza W, | | | 2018 | | NEPHROLOGY [address] | [address] | | | | | [address] | [address] [place] | | | | | [place] | [place] [address] | | | | | [address] | [phone] | | | | | [phone] | | | +--------+ + + + [...] | +--------+---------+ + + + | 02/13/ Office | Nephrology | Shea Pedraza, | | | 2018 | Visit | | MD Harmony Sharma | | | | | | [address] [facility] | | | | | | [place] [address] | | | | | | [phone] | | | | | | | [...]
--- OUTSIDE RECORDS SUMMARY | ~2019-02-10 | XMS | Clinical Summary ---
Demographics + + + | Address | [address] | | | [place] [address] | + + + | Home Phone | | + + + | Preferred Language | Unknown | + + + | Marital Status | | + + + | Nondenominational Affiliation | 1041 | + + + | Race | Unknown | + + + | Ethnic Group | Unknown | + + + Author + + + | Author | [facility] (Historical as of | | | 12-09-18) | + + + | Organization | [facility] (Historical as of | | | 12-09-18) [...] [place] | | | | | [address] | | + + + + + [...] Team Providers + +------+ + | Care Cosmetic Sales Assistant Name | Role | Phone | [...] +------+-------+---------+ | [employer] | FC-NET | [id number] | | | | | | WORK | | | | | + +--------+ +------+-------+---------+ | [employer] [employer] | YELLOW | [id number] | | | | | PLANS | [...] | | yuri/Lefty | | 1965 | [phone] | [place] | | | [place] | | | [address]: | [address] | | | | | | | | | | | | [phone] | | | | | | 2066 | | + +--------+ +--------+ + +
--- OUTSIDE RECORDS SUMMARY | ~2019-02-10 | XMS | Encounter Summary ---
Demographics + + + | Address | [facility] 1974 | | | [place] [address] | + + + | Home Phone | | + + + | Preferred Language | Unknown | + + + | Marital Status | Legally | + + + | Buddhism Affiliation | 1041 | + + + [...] + | Halina Robertson | ECON | [address] | | | | | [place] [address] | | | | | [address] | | + + + + + | Halina Hankins | ECON | [address] | | | | [address] | | | | | [address] | | + + + + + | Halina Robertson | ECON | Unknown | | + + + + + Care Team Providers + +------+ + | Care Diversity Specialist Name | Role | Phone | + +------+ + | Bourret, Yue H PA-C | PCP | Unavailable | + +------+ + Encounter Details +--------+ + + + + | Date | Type | Department | Care Team | Description | +--------+ + + + + | 11/14/ | Abstract | [facility] | Shea Pedraza W, | | | 2018 | | NEPHROLOGY [address] | [address] | | | | | [address] | [address] [place] | | | | | [place] | [place] [address] | | | | | [address] | [phone] | | | | | [phone] | | | +--------+ + + + [...] | | | | | [address] [facility] | | | | | | [place] [address] | | | | | | [phone] | | | | | | | [...]
--- OUTSIDE RECORDS SUMMARY | ~2019-02-10 | XMS | Encounter Summary ---
Demographics + + + | Address | [facility] [address] | | | [place] [address] | + + + | Home Phone | | + + + | Preferred Language | Unknown | + + + | Marital Status | Legally | + + + | Anglican Affiliation | 1041 | + + + | Race | Unknown | + + + | Ethnic Group | Unknown | + + + Author + + + | Author | [facility] | | | and [place] | + + + | Organization | [facility] | | | and [place] | + + + | Address | Unknown | + + + | Phone | Unavailable | + + + Support + + + + + | Name | Relationship | Address | Phone | + + + + + | Halina Robertson | ECON | [address] | | | | | [address] | | | | | [address] | | + + + + + | Halina Hankins | ECON | [address] | | | | [address] | | | | | [address] | | + + + + + | Halina Robertson | ECON | Unknown | | + + + + + Care Team Providers + +------+ + | Care Railroad Carman Name | Role | Phone | + [...] | | | | | ([facility]) | [address] | [address] [place] | | | | | Procedures | [address] | [place] | | | | | [place] OFFICE | [facility] | [address] Phone: | | | | | OUTPATIENT | [place] | [phone] | | | | | VISIT 25 | [address] | Fax: | | | | | MINUTES | Phone: | [phone] | | | | | | [phone] | | | | | | | Fax: | | | | | | | [phone] | | +--------+--------+ + + + + Encounter Details +--------+---------+ + + + | Date | Type | Department | Care Team | Description | +--------+---------+ + + + | 11/14/ | Office | [facility] [place] | Shea Pedraza W, | CKD (chronic kidney | | 2019 | Visit | NEPHROLOGY [address] | disease) stage 3, | | | | [address] | [address] [place] | GFR 30-59 ml/min | | | | [place] | [place] [address] | ([facility]) (Primary Dx); | | | | [address] | [phone] | Essential | | | | [phone] | | hypertension with | | | [...] Patient Instructions Shea Pedraza MD - 11/14/2018 16:30 PDTTo-do 1. [...] evaluated by Dr. Garcia (GI ) in [place]. 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 [address] [place] | | | | | | [place] [address] | | | | | | [phone] | | | | | | | | +--------+---------+ + + + documented as of this encounter Visit Diagnoses + + | Diagnosis | + + | CKD (chronic kidney disease) stage 3, GFR 30-59 ml/min ([facility]) - Primary Chronic kidney | | disease, [...]
[~2019-02-10 22:57] MED LIST changes: +GLUCOPHAGE500 MG PO
--- OUTSIDE RECORDS SUMMARY | 2019-02-10 23:00 | XMS ---
PreManage Notification: LIVE ROJAS Security Sifting Operator Events No recent Security Events currently on file CRITERIA MET - Group Notification - - 2 Visits in 30 Days CARE PROVIDERS LORENZO COLE Physician Superintendent Menagerie: Surgical 11/15/2017-Current PHONE: Unknown LORENZO EUCEDA Primary Care 05/17/2016-Current PHONE: [phone] Alia has no Care Guidelines for this patient. Care History Medical/Surgical 01/22/2019 [facility] \T\middot;\T\nbsp; PATIENT- [facility] \T\middot;\T\nbsp; PLEASE REFER PATIENT TO [facility] FOR NON EMERGENT MEDICAL NEEDS. \T\middot;\ T\nbsp; [facility] CAN SEE PATIENTS SAME DAY FOR APTS IF PATIENT CALLS FIRST THING IN THE MORNING. E.D. VISIT COUNT (12 MO.) 4 MISTI Nolasco TOTAL 4 NOTE: Visits indicate total known visits. 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 - 1 Type 2 diabetes mellitus without complications - 1 Hypertensive chronic kidney disease w stg 1-4/unsdesirae lilly - Allergy status to penicillin - Presence of coronary angioplasty implant and graft - local intermodal truck driver (current) use of insulin - Dehydration 12/07/2018 16:25 [facility] [place] TYPE: Emergency COMPLAINT: - HIGH BP DIAGNOSES: - Allergy status to penicillin - 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 [place] TYPE: Medical Surgical COMPLAINT: - BILATERAL PNEUMONIA DIAGNOSES: - Hypomagnesemia - Unspecified atrial fibrillation - Essential (primary) hypertension - senior living (current) use of insulin - Unspecified atrial fibrillation - Other viral pneumonia - Presence of coronary angioplasty implant and graft - Personal history of nicotine dependence - Personal history of nicotine dependence - senior living (current) use of insulin - 1 Type 2 diabetes mellitus without complications - Essential (primary) hypertension - Hypomagnesemia - Psoriasis, unspecified - Athscl heart disease of [place] coronary artery w/o ang pctrs - Presence of coronary angioplasty implant and graft - 1 Type 2 diabetes mellitus without complications - Athscl heart disease of [place] coronary artery w/o ang pctrs - Psoriasis, unspecified [email or web address]
--- NOTE | 2019-02-11 11:57 | EKG ---
[facility] [address] [facility] [place] [address] Signed Normal sinus rhythm Septal infarct , age undetermined Marked ST abnormality, possible lateral subendocardial injury Abnormal ECG When compared with ECG of 19-JAN-2019 20:57, Septal infarct is now present Criteria for Inferior infarct are no longer present ST now depressed in Lateral leads T wave inversion more evident in Inferior leads Confirmed by NANY GRAVES DO ([id number]) on 02/11/2019 11:56:58 AM Electronically Signed By: NANY GRAVES DO 02/11/19 1157 PATIENT NAME: LIVE ROJAS Electrocardiogram DATE OF : 67 PHYSICIAN: NANY GRAVES DO REPORT #: [id number] REPORT IS CONFIDENTIAL AND NOT TO BE RELEASED WITHOUT AUTHORIZATION
== END 2019-02-11 02:04 | disposition short-term general hospital (02) ==
LOC: ED 22:57
DX: I21.4 Non-ST elevation (NSTEMI) myocardial infarction (principal); I10 Essential (primary) hypertension; E11.9 Type 2 diabetes mellitus without complications; I48.91 Unspecified atrial fibrillation; Z95.5 Presence of coronary angioplasty implant and graft; Z87.891 Personal history of nicotine dependence; Z88.0 Allergy status to penicillin; Z79.82 Long term (current) use of aspirin; Z79.899 Other long term (current) drug therapy
CPT/HCPCS: 71045; 80053; 83735; 83880; 84484; 85025; 85610; 93005; 93010; 96361; 96374; 99285-25; J2405; J7030

== ENCOUNTER 2019-04-07 10:58 | Emergency (ER) | payer BC, OTHER ==
[~2019-04-07] VITALS: Ht 180.3 cm; Wt 95.2 kg
--- OUTSIDE RECORDS SUMMARY | ~2019-04-07 | XMS | Encounter Summary ---
Demographics + + + | Address | [address] | | | [place] [address] | + + + | Home Phone | | + + + | Preferred Language | Unknown | + + + | Marital Status | Legally | + + + | Judaism Affiliation | 1041 | + + + | Race | Unknown | + + + | Ethnic Group | Unknown | + + + Author + + + | Author | [facility] | | | and [place] | + + + | Organization | [facility] | | | and [place] | + + + | Address | Unknown | + + + | Phone | Unavailable | + + + Support + + +---------+ + | Name | Relationship | Address | Phone | + + +---------+ + | Halina Robertson | ECON | Unknown | | + + +---------+ + | Danelle Robertson | ECON | Unknown | | + + +---------+ + Care Team Providers + +------+ + | Care Garage Worker Name | Role | Phone | + +------+ + PCP | Unavailable | + +------+ + Reason for Visit + + + | Reason | Comments | + + + | Lab Results | | + + + Encounter Details +--------+ + + + + | Date | Type | Department | Care Team | Description | +--------+ + + + + | 08/25/ | Telephone | [facility] [place] | Shea Pedraza W, | Lab Results | | 2019 | | NEPHROLOGY [address] | MD [address] | | | | | [address] | [address] [place] | | | | | [place], [place] | [place] [address] | | | | | [address] | [phone] | | | | | [phone] | | | +--------+ + + + + Social History + + + +--------+ + | Tobacco Use | Types | Packs/Day | Years | Date | | | | | Used | | + + + +--------+ + | Former Smoker | Cigarettes | | 2 | Quit: 08/08/1984 | + + + +--------+ + + +------+---+ + | Smokeless Tobacco: | Chew | | Quit: | | Former User | | | 08/09/19 | | | | | 15 | + +------+---+ + + + +---------+ + | Alcohol Use | Drinks/Week | oz/Week | Comments | + + +---------+ + | Not Currently | | | | + + +---------+ + + + + | Sex Assigned at | Date Recorded | | | | + + + | Not on file | | + + + + + + + | Job Start Date | Occupation | Industry | + + + + | Not on file | Not on file | Not on file | + + + + + + + + | Travel History | Travel Start | Travel End | + + + + + + | No recent travel history available. | + + documented as of this encounter Plan of Treatment +--------+---------+ + + + | Date | Type | Specialty | Care Team | Description | +--------+---------+ + + + | 06/19/ | Office | Nephrology | Shea Pedraza, | | | 2020 | Visit | | MD Harmony Sharma | | | | | | [address] [place] | | | | | | [place] [address] | | | | | | [phone] | | | | | | | | +--------+---------+ + + + documented as of this encounter Visit Diagnoses Not on filedocumented in this encounter"
--- OUTSIDE RECORDS SUMMARY | ~2019-04-07 | XMS | Encounter Summary ---
Demographics + + + | Address | [address] | | | [place] [address] | + + + | Home Phone | | + + + | Preferred Language | Unknown | + + + | Marital Status | Legally | + + + | Religion Affiliation | 1041 | + + + | Race | Unknown | + + + | Ethnic Group | Unknown | + + + Author + + + | Author | [facility] | | | and [place] | + + + | Organization | [facility] | | | and [...] Team Providers + +------+ + | Care Life Underwriter Name | Role | Phone | + +------+ + PCP | Unavailable | + +------+ + Reason for Visit + + + | Reason | Comments | + + + | Consultation | | + + + Evaluate & Treat (Routine) +--------+--------+ + + + + | Status | Reason | Specialty | Diagnoses / | Referred By | Referred To | | | | | Procedures | Contact | Contact | +--------+--------+ + + + + | Closed | | Nephrology | Diagnoses | Bourret, | Pedraza, | | | | | JAMESON (acute | Yue H, | Shea W, | | | | | kidney | PA-C [address] | MD [address] | | | | | injury) | [address] | [place] | | | | | (HCC) | [place] | [address] [place] | | | | | Procedures | [address] | [place], [place] | | | | | ME OFFICE | [facility] | [address] Phone: | | | | | OUTPATIENT | [place] | [phone] | | | | | VISIT 25 | [address] | Fax: | | | | | MINUTES | Phone: | [phone] | | | | | | [phone] | | | | | | | Fax: | | | | | | | [phone] | | +--------+--------+ + + + + Encounter Details +--------+---------+ + + + | Date | Type | Department | Care Team | Description | +--------+---------+ + + + | 08/08/ | Office | [facility] | Shea Pedraza W, | CKD (chronic kidney | | 2019 | Visit | NEPHROLOGY [address] | disease) stage 3, | | | | [address] | [address] [place] | GFR 30-59 ml/min | | | | [place], [place] | [place] [address] | ([facility]) (Primary Dx); | | | | [address] | [phone] | Nephrotic range | | | | [phone] | | proteinuria; | | | | | | Essential | | | | | | hypertension; Type 2 | | | | | | DM with CKD stage 3 | | | | | | and hypertension | | | | | | ([facility]); Vitamin D | | | | | | deficiency | +--------+---------+ + + + Social History + + [...] + + documented as of this encounter Last Filed Vital Signs + + + + + | Vital Sign | Reading | Time Taken | Comments | + + + + + | Blood Pressure | 192/110 | 08/08/2018 9:28 AM | | | | | PDT | | + + + + + | Pulse | 85 | 08/08/2018 9:28 AM | | | | | PDT | | + + + + + | Temperature | 36.9 C (98.5 F) | 08/08/2018 9:28 AM | | | | | PDT | | + + + + + | Respiratory Rate | 16 | 08/08/2018 9:28 AM | | | | | PDT | | + + + + + | Oxygen Saturation | 99% | 08/08/2018 9:28 AM | | | | | PDT | | + + + + + | Inhaled Oxygen | - | - | | | Concentration | | | | + + + + + | Weight | 96.2 kg (212 lb 1.3 | 08/08/2018 9:28 AM | | | | oz) | PDT | | + + + + + | Height | 180.3 cm (5' 11") | 08/08/2018 9:28 AM | | | | | PDT | | + + + + + | Body Mass Index | 29.58 | 08/08/2018 9:28 AM | | | | | PDT | | + + + + + documented in this encounter Patient Instructions Patient Instructions Shea Pedraza MD - 08/08/2018 9:30 AM PDTTo-do 1. Start Furosemide (Lasix) 40 mg once a day. This is a diuretic -- meaning it makes you p ee more salt and water. This will help to lower your blood pressure. Check a lab test (BMP ) in 2 weeks. Make sure you haven't lost too much potassium. documented in this encounter Progress Notes Shea Pedraza MD - 08/08/2018 9:30 AM PDTFormatting of this note might be different f rom the original. Nephrology Consult - New Visit Visit date: 08/08/2018 Primary care provider: Yue Mcguire PA-C HPI: Joselito Robertson is a 53 y.o. male referred by Yue Mcguire PA-C for evaluation of chronic kidney disease and proteinuria. Pt has history of type 2 diabetes x 10 years. Pt has strong FH of diabetes. Pt is on insu marty therapy, and Januvia. Pt reports diarrhea related to Januvia, and at times, he will ski p this medication. Pt believes he has diabetic retinopathy. Pt reports history of CAD, s/p cardiac stent. Pt reports hypertension. Pt was admitted to [facility] in August 2017, at which time, pt sustained an acute kidney injury i n setting of vancomycin therapy. Serum creatinine peaked to 2.3 mg/dL (eGFR 30 mL/min via MDRD). Pt reports increase in peripheral edema, right extremity worse than left extremity. Pt den ies chest pain, shortness of breath, urinary difficulty. Last week, pt was taking ibuprofen 600 mg daily for about 5 days for right leg discomfort. Pt stopped taking this. No prior history of excessive NSAID use. No h/o nephrolithiasis. Pt reports his home BP readings are 140/70-80 at best, and 160/80-90 at the higher end. Pt reports his daughter checks his BP at nighttime. Pt lives with daughter and grand-daughter (3-yrs old). Renal ultrasound @ [facility] Date: 11/04/17 Right kidney 11.9 cm, left kidney 11.7 cm, no hydronephrosis, no stones, normal cortical th ickness. PVR 2 mL, bladder normal. ROS: A 10-system review was performed, and was negative or noncontributory other than as st ated above. 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 No pertinent surgical history. Social History Socioeconomic History Marital status: Legally Spouse name: Not on file Number of children: Not on file Years of education: Not on file Highest education level: Not on file Social Needs Financial resource strain: Not on file Food insecurity - worry: Not on file Food insecurity - inability: Not on file Transportation needs - medical: Not on file Transportation needs - non-medical: Not on file Occupational History Not on file Tobacco Use Smoking status: Former Smoker Years: 2.00 Types: Cigarettes Last attempt to quit: 08/08/1984 Years since quittin.0 Smokeless tobacco: Former User Types: Chew Quit date: 08/08/2014 Substance and Sexual Activity Alcohol use: Not Currently Drug use: Not Currently Sexual activity: Not on file Other Topics Concern Not on file Social History Narrative Not on file Family History Problem Relation Age of Onset Diabetes Mother Cancer Mother Hypertension Mother Diabetes Father Heart attack Father Hypertension Father Diabetes Sister Stroke Sister Diabetes Brother Diabetes Brother Diabetes Sister Kidney disease Neg Hx Allergies Allergen Reactions Penicillins Anaphylaxis, Hives, Rash and Swelling Outpatient Medications Marked as Taking for the 08/08/18 encounter (Office Visit) with Olinda Pedraza MD Medication Sig Dispense Refill amLODIPine (NORVASC) 5 mg tablet Take 5 mg by mouth Daily. aspirin 81 MG EC tablet Take 81 mg by mouth Daily. cholecalciferol (CHOLECALCIFEROL) 5000 units TABS Take 1 tablet by mouth Daily. 30 tabl et fenofibrate (LOFIBRA, TRIGLIDE) 160 mg tablet Take 160 mg by mouth nightly. folic acid 1 mg tablet Take 1 mg by mouth Daily. insulin aspart (NOVOLOG) 100 units/mL injection Inject 10 Units under the skin 2 times daily. insulin glargine (LANTUS) 100 units/mL injection (vial) Inject 20 Units under the skin nightly. lisinopril (PRINIVIL, ZESTRIL) 20 mg tablet Take 40 mg by mouth Daily. [DISCONTINUED] methotrexate 2.5 mg tablet Take 10 mg by mouth Once a week. methotrexate 2.5 mg tablet Take 10 mg by mouth Once a week. metoprolol succinate (TOPROL-XL) 100 mg ER tablet Take 100 mg by mouth Daily. nitroglycerin (NITROSTAT) 0.[address] 0.4 mg under the tongue as needed for Chest pain. rivaroxaban (XARELTO) 20 mg tablet Take 1 tablet by mouth Daily (with dinner). rosuvastatin (CRESTOR) 20 mg tablet Take 20 mg by mouth nightly. SITagliptin (JANUVIA) 100 mg tablet Take 100 mg by mouth Daily. Physical Exam Vitals: 08/08/18 0928 BP: (!) 192/110 Pulse: 85 Resp: 16 Temp: 36.9 C (98.5 F) TempSrc: Temporal SpO2: 99% Weight: 96.2 kg (212 lb 1.3 oz) Height: 1.803 m (5' 11") Body mass index is 29.58 kg/m. Constitutional: Appears well-developed and well-nourished. No distress. ENT: Oropharynx is clear and oral mucosa is moist. Eyes: Conjunctiva is normal. Cardiovascular: Normal rate, regular rhythm and normal heart sounds. Exam reveals no valentine p and no friction rub. No murmur heard. 1+ pitting RLE, and trace pitting left ankle edema. Lungs: Respiratory effort normal and breath sounds normal. No crackles or wheezes. Abdominal: Soft. Bowel sounds are present. Musculoskeletal: No muscle tenderness. Skin: Skin is warm. Neurological: Alert. Memory appears intact. Psychiatric: Normal mood and affect. Speech is normal. Reviewed labs with patient. Office Visit on 08/08/2018 Component Date Value Ref Range Status Color, UA, POC 08/08/2018 Light Yellow Yellow, Light Yellow Final Clarity, UA, [facility] 08/08/2018 Clear Final Glucose, UA, [facility] 08/08/2018 250 mg/dL* Negative Final Bilirubin, UA, [facility] 08/08/2018 Negative Negative Final Ketones, UA, [facility] 08/08/2018 Negative Negative, 100 mg/dL Final Specific [place], UA, [facility] 08/08/2018 1.025 1.001 - 1.030 Final Blood, UA, [facility] 08/08/2018 Moderate* Negative Final pH, UA, [facility] 08/08/2018 6.0 5.0, 6.0, 7.0, 8.0, 5.5, 6.5, 7.5 Final Protein, UA, [facility] 08/08/2018 >=300 mg/dL* Negative Final Urobilinogen, UA, [facility] 08/08/2018 0.2 0.2, Negative, Normal, < 0.2 mg/dL, 1 mg/dL, < 0. 2 E.U./dl, 1.0 E.U./dL, 0.2 mg/dL Final Nitrite, UA, [facility] 08/08/2018 Negative Negative Final Leukocyte Esterase, UA, [facility] 08/08/2018 Negative Negative Final Abstract on 07/04/2018 Component Date Value Ref Range Status Protein/Creatinine Ratio, External 07/03/2018 6.251* 0.2 Final Creatinine, External 07/03/2018 1.3 Final eGFR, External 07/03/2018 58 Final WBC, External 07/03/2018 8.18 Final HGB, External 07/03/2018 14.63 Final HCT, External 07/03/2018 41.83 Final PLT, External 07/03/2018 240 Final RBC, External 07/03/2018 4.47 Final MCV, External 07/03/2018 94 Final RDW, External 07/03/2018 14.26 Final UA Blood, External 07/03/2018 50 Final UA Glucose, External 07/03/2018 negative Final UA Ketones, External 07/03/2018 negative Final UA Ph, External 07/03/2018 6.0 Final UA Proteins, External 07/03/2018 500 Final UA RBC, External 07/03/2018 0 Final UA Specific [place], External 07/03/2018 1.021 Final UA Leukocyte Esterase, External 07/03/2018 negative Final Vitamin D, 25-Hydroxy, External 07/03/2018 4 Final <4.0 ng/mL Sodium, External 07/03/2018 143 Final Potassium, External 07/03/2018 3.7 Final Chloride, External 07/03/2018 107 Final Carbon Dioxide, External 07/03/2018 25 Final Calcium, External 07/03/2018 8.7 Final Phosphorus, External 07/03/2018 3.1 Final Albumin, External 07/03/2018 3.5 Final Glucose, External 07/03/2018 115 Final BUN, External 07/03/2018 12 Final Hemoglobin A1c 07/03/2018 7.3 % Final Abstract on 07/04/2018 Component Date Value Ref Range Status PTH Intact, External 07/03/2018 59.7 12 - 88 Final ASSESSMENT AND PLAN: ICD-10-CM ICD-9-CM 1. CKD (chronic kidney disease) stage 3, GFR 30-59 ml/min ([facility]) N18.3 585.3 Proteinuric CKD , likely due to diabetic nephropathy. Provided education regarding CKD stage, and preventat brina measure to preserve kidney function. No NSAID use. Optimize diabetic and hypertensive control. 2. Nephrotic range proteinuria R80.9 791.0 UPCR is quite elevated. On lisinopril 40 mg daily. -Will work to optimize BP control. 3. Essential hypertension I10 401.9 Clinic BP is elevated. Pt is edematous. -Will add furosemide 40 mg QAM. -Check BMP in 2 weeks. 4. Type 2 DM with CKD stage 3 and hypertension ([facility]) E11.22 250.40 Lab Results Component Value Date HBA1C 7.3 07/03/2018 I12.9 403.90 N18.3 585.3 5. Vitamin D deficiency E55.9 268.9 Pt is on vitamin D 5000 Units daily. BMP in 2 weeks. Return in 3 months: renal, ua, upcr. documented in this encounter Plan of Treatment +--------+---------+ + + + | Date | Type | Specialty | Care Team | Description | +--------+---------+ + + + | 06/19/ | Office | Nephrology | Shea Pedraza, | | | 2019 | Visit | | MD Harmony Sharma | | | | | | [address] [facility] | | | | | | [place] [address] | | | | | | [phone] | | | | | | | | +--------+---------+ + + + documented as of this encounter Procedures + +--------+ + + + | Procedure Name | Priori | Date/Time | Associated Diagnosis | Comments | | | ty | | | | + +--------+ + + + | POCT URINALYSIS, | Routin | 08/08/2018 | Nephrotic range | Results for this | | AUTO WITH CONF | e | 9:09 AM | proteinuria | procedure are in the | | | | PDT | | results section. | + +--------+ + + + documented in this encounter Results POCT Urinalysis Dipstick Automated (08/08/2018 9:09 AM PDT) + + + + + + | Component | Value | Ref Range | Performed | Pathologist | | | | | At | Signature | + + + + + + | Color, UA, | Light Yellow | Yellow, Light | | | | POC | | Yellow | | | + + + + + + | Clarity, | Clear | | | | | UA, POC | | | | | + + + + + + | Glucose, | 250 mg/dL (A) | Negative | | | | UA, POC | | | | | + + + + + + | Bilirubin, | Negative | Negative | | | | UA, POC | | | | | + + + + + + | Ketones, | Negative | Negative, 100 | | | | UA, POC | | mg/dL | | | + + + + + + | Specific | 1.025 | 1.001 - 1.030 | | | | [place], | | | | | | UA, POC | | | | | + + + + + + | Blood, UA, | Moderate (A) | Negative | | | | POC | | | | | + + + + + + | pH, UA, POC | 6.0 | 5.0, 6.0, 7.0, | | | | | | 8.0, 5.5, 6.5, | | | | | | 7.5 | | | + + + + + + | Protein, | >=300 mg/dL (A) | Negative | | | | UA, POC | | | | | + + + + + + | Urobilinoge | 0.2 | 0.2, Negative, | | | | n, UA, POC | | Normal, < 0.2 | | | | | | mg/dL, 1 mg/dL, | | | | | | < 0.2 E.U./dl, | | | | | | 1.0 E.U./dL, | | | | | | 0.2 mg/dL | | | + + + + + + | Nitrite, | Negative | Negative | | | | UA, POC | | | | | + + + + + + | Leukocyte | Negative | Negative | | | | Esterase, | | | | | | UA, POC | | | | | + + + + + + | Reducing | | | | | | Substances, | | | | | | Urine | | | | | + + + + + + | Ictotest | | Negative | | | + + + + + + | Remark | | | | | + + + + + + + + | Specimen | + + | Urine | + + documented in this encounter Visit Diagnoses + + | Diagnosis | + + | CKD (chronic kidney disease) stage 3, GFR 30-59 ml/min ([facility]) - Primary Chronic kidney | | disease, Stage III (moderate) | + + | Nephrotic range proteinuria Proteinuria | + + | Essential hypertension Unspecified essential hypertension | + + | Type 2 DM with CKD stage 3 and hypertension (HCC) | + + | Vitamin D deficiency Unspecified vitamin D deficiency | + + documented in this encounter
--- OUTSIDE RECORDS SUMMARY | ~2019-04-07 | XMS | Encounter Summary ---
Demographics + + + | Address | [address] | | | [place] [address] | + + + | Home Phone | | + + + | Preferred Language | Unknown | + + + | Marital Status | Legally | + + + | Denominational Affiliation | 1041 | + + + | Race | Unknown | + + + | Ethnic Group | Unknown | + + + Author + + + | Author | [facility] | | | and [place] | + + + | Organization | [facility] | | | and [...] Team Providers + +------+ + | Care Slip Bridge Operator Name | Role | Phone | + +------+ + PCP | Unavailable | + +------+ + Encounter Details +--------+ + + + + | Date | Type | Department | Care Team | Description | +--------+ + + + + | 08/25/ | Abstract | [facility] [place] | Shea Pedraza W, | | | 2018 | | NEPHROLOGY [address] | | | | | [address] | [address] [place] | | | | | [place], [place] | [place] [address] | | | | | [address] | [phone] | | | | | [phone] | | | +--------+ + + + [...] | | | | | [address] [place] | | | | | | [place] [address] | | | | | | [phone] | | | | | | | | +--------+---------+ + + + documented as of this encounter Procedures + +--------+ + + + | Procedure Name | Priori | Date/Time | Associated Diagnosis | Comments | | | ty | | | | + +--------+ + + + | EXTERNAL LAB: JUS | Routin | 08/17/2018 | | Results for this | | | e | | | procedure are in the | | | | | | results section. | + +--------+ + + + | EXTERNAL LAB: | Routin | 08/17/2018 | | Results for this | | GLUCOSE | e | | | procedure are in the | | | | | | results section. | + +--------+ + + + | EXTERNAL LAB: | Routin | 08/17/2018 | | Results for this | | CALCIUM | e | | | procedure are in the | | | | | | results section. | + +--------+ + + + | EXTERNAL LAB: CARBON | Routin | 08/17/2018 | | Results for this | | DIOXIDE | e | | | procedure are in the | | | | | | results section. | + +--------+ + + + | EXTERNAL LAB: | Routin | 08/17/2018 | | Results for this | | CHLORIDE | e | | | procedure are in the | | | | | | results section. | + +--------+ + + + | EXTERNAL LAB: | Routin | 08/17/2018 | | Results for this | | POTASSIUM | e | | | procedure are in the | | | | | | results section. | + +--------+ + + + | EXTERNAL LAB: SODIUM | Routin | 08/17/2018 | | Results for this | | | e | | | procedure are in the | | | | | | results section. | + +--------+ + + + | EXTERNAL LAB: EGFR | Routin | 08/17/2018 | | Results for this | | | e | | | procedure are in the | | | | | | results section. | + +--------+ + + + | EXTERNAL LAB: | Routin | 08/17/2018 | | Results for this | | CREATININE | e | | | procedure are in the | | | | | | results section. | + +--------+ + + + documented in this encounter Results External Lab: BUN (08/17/2018) + +--------+ + + + | Component | Value | Ref Range | Performed | Pathologist | | | | | At | Signature | + +--------+ + + + | BUN, | 29 (A) | 8 - 25 | EXTERNAL | | | External | | | LAB | | + +--------+ + + + + +---------+ + + | Performing | Address | City/State/Zipcode | Phone Number | | Organization | | | | + +---------+ + + | EXTERNAL LAB | | | | + +---------+ + + External Lab: Glucose (08/17/2018) + +---------+ + + + | Component | Value | Ref Range | Performed | Pathologist | | | | | At | Signature | + +---------+ + + + | Glucose, | 176 (A) | 65 - 99 | EXTERNAL | | | External | | | LAB | | + +---------+ + + + + +---------+ + + | Performing | Address | City/State/Zipcode | Phone Number | | Organization | | | | + +---------+ + + | EXTERNAL LAB | | | | + +---------+ + + External Lab: Calcium (08/17/2018) + +-------+ + + + | Component | Value | Ref Range | Performed | Pathologist | | | | | At | Signature | + +-------+ + + + | Calcium, | 8.6 | 8.5 - 10.2 | EXTERNAL | | | External | | | LAB | | + +-------+ + + + + +---------+ + + | Performing | Address | City/State/Zipcode | Phone Number | | Organization | | | | + +---------+ + + | EXTERNAL LAB | | | | + +---------+ + + External Lab: Carbon Dioxide (08/17/2018) + +-------+ + + + | Component | Value | Ref Range | Performed | Pathologist | | | | | At | Signature | + +-------+ + + + | Carbon | 26 | 22 - 29 | EXTERNAL | | | Dioxide, | | | LAB | | | External | | | | | + +-------+ + + + + +---------+ + + | Performing | Address | City/State/Zipcode | Phone Number | | Organization | | | | + +---------+ + + | EXTERNAL LAB | | | | + +---------+ + + External Lab: Chloride (08/17/2018) + +-------+ + + + | Component | Value | Ref Range | Performed | Pathologist | | | | | At | Signature | + +-------+ + + + | Chloride, | 105 | 97 - 107 | EXTERNAL | | | External | | | LAB | | + +-------+ + + + + +---------+ + + | Performing | Address | City/State/Zipcode | Phone Number | | Organization | | | | + +---------+ + + | EXTERNAL LAB | | | | + +---------+ + + External Lab: Potassium (08/17/2018) + +-------+ + + + | Component | Value | Ref Range | Performed | Pathologist | | | | | At | Signature | + +-------+ + + + | Potassium, | 3.7 | 3.5 - 5.3 | EXTERNAL | | | External | | | LAB | | + +-------+ + + + + +---------+ + + | Performing | Address | City/State/Zipcode | Phone Number | | Organization | | | | + +---------+ + + | EXTERNAL LAB | | | | + +---------+ + + External Lab: Sodium (08/17/2018) + +-------+ + + + | Component | Value | Ref Range | Performed | Pathologist | | | | | At | Signature | + +-------+ + + + | Sodium, | 140 | 135 - 145 | EXTERNAL | | | External | | | LAB | | + +-------+ + + + + +---------+ + + | Performing | Address | City/State/Zipcode | Phone Number | | Organization | | | | + +---------+ + + | EXTERNAL LAB | | | | + +---------+ + + External Lab: eGFR (08/17/2018) + +-------+ + + + | Component | Value | Ref Range | Performed | Pathologist | | | | | At | Signature | + +-------+ + + + | eGFR, | 48 | | EXTERNAL | | | External | | | LAB | | + +-------+ + + + + + | Specimen | + + | Blood | + + + +---------+ + + | Performing | Address | City/State/Zipcode | Phone Number | | Organization | | | | + +---------+ + + | EXTERNAL LAB | | | | + +---------+ + + External Lab: Creatinine (08/17/2018) + +---------+ + + + | Component | Value | Ref Range | Performed | Pathologist | | | | | At | Signature | + +---------+ + + + | Creatinine, | 1.6 (A) | 0.7 - 1.3 | EXTERNAL | | | External | | | LAB | | + +---------+ + + + + + | Specimen | + + | Blood | + + + +---------+ + + | Performing | Address | City/State/Zipcode | Phone Number | | Organization | | | | + +---------+ + + | EXTERNAL LAB | | | | + +---------+ + + documented in this encounter Visit Diagnoses Not on filedocumented in this encounter"
--- OUTSIDE RECORDS SUMMARY | ~2019-04-07 | XMS | Encounter Summary ---
Demographics + + + | Address | [address] | | | [place] [address] | + + + | Home Phone | | + + + | Preferred Language | Unknown | + + + | Marital Status | Legally | + + + | Mandaeism Affiliation | [id number] | + + + | Race | Unknown | + + + | Ethnic Group | Unknown | + + + Author + + + | Author | [facility] | | | and [place] | + + + | Organization | [facility] | | | [...] Team Providers + +------+ + | Care Rope Cleaner Name | Role | Phone | + +------+ + | Janusz Davis MD | PCP | | + +------+ + Reason for Visit + + + | Reason | Comments | + + + | Follow-up | | + + + Encounter Details +--------+---------+ + + + | Date | Type | Department | Care Team | Description | +--------+---------+ + + + | 03/20/ | Office | [facility] | Jose Terranceamaya | S/P CABG x 4 | | 2019 | Visit | CARDIOTHORACIC | [address] | (Primary Dx); | | | | SURG[address] | [address] | Follow-up exam | | | | [place] | [place] [address] | | | | | [place], [place] | [phone] | | | | | [address] | | | | | | [phone] | | | +--------+---------+ + + + Social History [...] + + + | Blood Pressure | 134/76 | 03/20/2019 9:48 AM | | | | | PST | | + + + + + | Pulse | 86 | 03/20/2019 9:48 AM | | | | | PST | | + + + + + | Temperature | 36.5 C (97.7 F) | 03/20/2019 9:48 AM | | | | | PST | | + + + + + | Respiratory Rate | - | - | | + + + + + | Oxygen Saturation | 98% | 03/20/2019 9:48 AM | | | | | PST | | + + + + + | Inhaled Oxygen | - | - | | | Concentration | | | | + + + + + | Weight | 92 kg (202 lb 14.4 | 03/20/2019 9:48 AM | | | | oz) | PST | | + + + + + | Height | 180.3 cm (5' 11") | 03/20/2019 9:48 AM | | | | | PST | | + + + + + | Body Mass Index | 28.3 | 03/20/2019 9:48 AM | | | | | PST | | + + + + + documented in this encounter Functional Status + + + + | Functional Status | Response | Date of Assessment | + + + + | Are you deaf or do you have serious | No | 02/11/2019 | | difficulty hearing? | | | + + + + | Are you blind or do you have serious | No | 02/11/2019 | | difficulty seeing, even when wearing | | | | glasses? | | | + + + + | Do you have serious difficulty walking or | No | 02/11/2019 | | climbing stairs? (5 years old or older) | | | + + + + | Do you have difficulty dressing or bathing? | No | 02/11/2019 | | (5 years old or older) | | | + + + + | Because of a physical, mental, or emotional | No | 02/11/2019 | | condition, do you have difficulty doing | | | | errands alone such as visiting a doctor's | | | | office or shopping? [15 years old or | | | | older)] | | | + + + + + + + + | Cognitive Status | Response | Date of Assessment | + + + + | Because of a physical, mental, or emotional | No | 02/11/2019 | | condition, do you have serious difficulty | | | | concentrating, remembering, or making | | | | decisions? (5 years old or older) | | | + + + + documented as of this encounter Patient Instructions Patient Instructions Yomi Garcia ARNP - 03/20/2019 10:[address] Luis Enrique Campbell (Cardiology) at [phone] for a follow up appointment regarding your life vest a nd medication management. You are cleared from a Cardiothoracic perspective. Please call our office if you have any concerns regarding your surgical incisions. documented in this encounter Progress Notes Yomi Garcia ARNP - 03/20/2019 10:00 AM PSTFormatting of this note might be differen t from the original. Cardiothoracic Surgery Outpatient Progress Note Pt: Joselito Robertson AGE/SEX: 53 y.o. male : 1965 Surgery/Procedure: 02/15/19, Dr Nair 1. Urgent coronary artery bypass grafting times 4; left internal mammary artery to left a nterior descending; saphenous vein graft to diagonal; saphenous vein graft to ramus intermed ius; saphenous vein graft to obtuse marginal. 2. Endoscopicvein harvesting. 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 Goal INR 2-3. F/u with cardiology 2) CKD/ARF: Nephrology following patient closely throughout hospitalization. Cr increased h owever improved with hydration. Pt to f/u with his fine jewelry sales associate outpatient. SUBJECTIVE: Mr. Joselito Robertson presents for a 4 week post-discharge follow up exam after the above procedure(s). He says that he feels well overall, and that pain and energy levels have been improving since discharge.. Pt reports ambulating well w/o complications. He presents toda y with his life vest and portable pulse oximetry. He went on a 2.5 mile hike last week with the life vest in place and did not report any dyspnea or chest pain. Shai has not made a fo llow up with Dr. Campbell for medication or life vest management. I have stressed the importan ce of making a follow up for management and repeat ECHO. On exam, the sternum is stable, the midline sternal incision is well approximated and with out discharge or erythema. The patient denies popping or clicking to the sternum. Heart rate is regular at a rate of 86. He reports continuously following sternal precautions as recomm ended.Shai denies chest pain, dyspnea, nausea, vomiting, fevers, or chills and has good post -operative pain control. His IN[place] and coumadin [place]. Last INR was 2.0 last week with a goal INR of 2.0 - 3.0. I cazares ve discussed the importance of continual follow up and monitoring of their INR. He was instructed to make an appointment with his Education Sales Consultant, Dr. Adrian DAMIAN He has an appointment with his Primary Care Physician, Janusz Davis MD He has seen his Celery Cutter, Dr. Pedraza on 03/15/2019 DATA: Scheduled Medications Current Outpatient Medications on File Prior to Visit Medication Sig Dispense Refill aspirin 325 MG EC tablet Take 1 tablet by mouth Daily. 30 tablet 0 cholecalciferol (CHOLECALCIFEROL) 5000 units TABS Take 1 tablet by mouth Daily. 30 tabl et folic acid 1 mg tablet Take 1 mg by mouth Daily. insulin aspart (NOVOLOG) 100 units/mL injection Inject under the skin 3 times daily (b efore meals). Per sliding scale losartan (COZAAR) 50 mg tablet Take 1 tablet by mouth Daily. 30 tablet 0 metFORMIN (GLUCOPHAGE) 500 mg tablet Take 500 mg by mouth every evening. metoprolol succinate (TOPROL-XL) 50 mg 24 hr tablet Take 1 tablet by mouth 2 times shayy y. 30 tablet 0 rosuvastatin (CRESTOR) 20 mg tablet Take 20 mg by mouth nightly. sodium bicarbonate 650 mg tablet Take 1 tablet by mouth 3 times daily for 90 days. 90 t ablet 2 warfarin (COUMADIN) 1 mg tablet Take 3 tablets by mouth Daily. 30 tablet 0 No current facility-administered medications on file prior to visit. Review of Systems: General ROS: Negative: fever, chill, malaise. Cardiovascular ROS: Negative: chest pain, dyspnea on exertion, 1+ RLE edema, irregular hear tbeat, loss of consciousness, murmur, orthopnea, palpitations, paroxysmal nocturnal dyspnea, rapid heart rate or shortness of breath Respiratory ROS: Negative: cough, hemoptysis, shortness of breath, sputum changes, tachypne a or wheezing Gastrointestinal ROS: Negative: abdominal pain, appetite loss, blood in stools, constipatio n, gas/bloating, melena, nausea/vomiting or swallowing difficulty/pain Genito-Urinary ROS: Negative: dysuria and hematuria. Musculoskeletal ROS: Negative: gait disturbance Neurological ROS: Negative: behavioral changes, confusion, dizziness, headaches, memory lo ss, numbness/tingling or speech problems Psychological ROS: Negative: anxiety, depression or suicidal ideation Dermatological ROS: Negative: discharge, erythema, warmth or inflammation on or around the incision sites. OBJECTIVE: Vital Signs: BP 134/76 | Pulse 86 | Temp 36.5 C (97.7 F) (Temporal) | Ht 1.803 m (5' 11") | Wt 9 2 kg (202 lb 14.4 oz) | SpO2 98% | BMI 28.30 kg/m Physical Exam: GENERAL: The patient is A&O x3, NAD. NEURO: PERRLA, EOMI; no facial asymmetry, speech normal, moves all extremities well. HEENT: Sclerae clear, nonicteric; oral mucosa moist and pink w/o ulcerations/lesions. NECK: Supple, no JVD noted, trachea midline, no thyromegaly. HEART: RRR, no murmur, rub, or gallop noted. LUNGS: Lungs CTA b/l w/o wheezing, crackles, or rhonchi. ABDOMEN: Soft, nondistended, nontender, no notable masses. BS are active. EXTREMITIES: Warm and well-perfused, 1+ RLE edema, no clubbing or cyanosis noted. SKIN: Clean, dry, intact. No evidence of erythema, discharge, or dehiscence. ASSESSMENT & PLAN: s/p CABG x 4 with EVH: Patient doing well overall Patient instructed to follow up in clinic with their high school guidance counselor for heart medication m anagement and coordination of cardiac rehab. Patient to follow up as planned with Primary Care Physician Patient was instructed to call our office for any new pain, redness, swelling, discharge from incisions, or fever. Three sutures were removed during this office visit without complication. Medications were discussed: pt taking all medications as prescribed. Continue strict sternal precautions for 6 weeks post-op. Continue Life Vest until follow up with Dr. Campbell. Visit Diagnoses and Associated Orders: Joselito was seen today for follow-up. Diagnoses and all orders for this visit: S/P CABG x 4 Follow-up exam All medications were reviewed during this examination. Specific follow-up and emergency instructions have been provided and the patient has verbal ized understanding to all instructions. The patient has been seen and the plan discussed with the attending provider, SHABBIR Bell 03/20/2019 Gissel terrell in this encounter Plan of Treatment +--------+---------+ + + + | Date | Type | Specialty | Care Team | Description | +--------+---------+ + + + | 06/19/ | Office | Nephrology | Shea Pedraza, | | | 2019 | Visit | | MD Harmony Sharma | | | | | | [address] | | | | | | [place] [address] | | | | | | [phone] | | | | | | | | +--------+---------+ + + + documented as of this encounter Visit Diagnoses + + | Diagnosis | + + | S/P CABG x 4 - Primary Postsurgical aortocoronary bypass status | + + | Follow-up exam Unspecified follow-up examination | + + documented in this encounter
--- OUTSIDE RECORDS SUMMARY | ~2019-04-07 | XMS | Encounter Summary ---
Demographics + + + | Address | [address] | | | [place] [address] | + + + | Home Phone | | + + + | Preferred Language | Unknown | + + + | Marital Status | Legally | + + + | Moravian Affiliation | 1041 | + + + | Race | Unknown | + + + | Ethnic Group | Unknown | + + + Author + + + | Author | [facility] | | | and [place] | + + + | Organization | [facility] | | | and [place] | + + + | Address | Unknown | + + + | Phone | Unavailable | + + + Support + + +---------+ + | Name | Relationship | Address | Phone | + + +---------+ + | Halina Rojas | ECON | Unknown | | + + +---------+ + | Danelle Rojas | ECON | Unknown | | + + +---------+ + Care Team Providers + +------+ + | Care Signal Inspector Name | Role | Phone | + +------+ + PCP | Unavailable | + +------+ + Encounter Details +--------+ + + + + | Date | Type | Department | Care Team | Description | +--------+ + + + + | 09/13/ | Orders Only | [facility] | Esther Gotti V, | | | 2017 | | CONVERSION 888 | MD [address] | | | | | [address] | [address] [place] | | | | | [place], [place] | [address] | | | | | [address] | | | | | | [phone] | | | +--------+ + + + + Social History + +-------+ +--------+------+ | Tobacco Use | Types | Packs/Day | Years | Date | | | | | Used | | + +-------+ +--------+------+ | Never Smoker | | | | | + +-------+ +--------+------+ + + +---------+ + | Alcohol Use | Drinks/Week | oz/Week | Comments | + + +---------+ + | Not Asked | | | | + + +---------+ [...] | | 2019 | Visit | | [address] | | | | | | [address] [place] | | | | | | [place] [address] | | | | | | [phone] | | | | | | | | +--------+---------+ + + + documented as of this encounter Procedures + +--------+ + + + | Procedure Name | Priori | Date/Time | Associated Diagnosis | Comments | | | ty | | | | + +--------+ + + + | ECHO INTERPRETATION | Routin | 09/13/2017 | | Results for this | | OF OUTSIDE FILMS | e | 10:53 AM | | procedure are in the | | | | PDT | | results section. | + +--------+ + + + documented in this encounter Results ECHO Interpretation of Outside Films (09/13/2017 10:53 AM PDT) + + | Specimen | + + | | + + + + + | Impressions | Performed At | + + + | 1. Overall left ventricular systolic function is normal with a | | | visually estimated EF of 55%, slightly decreased from the EF of 60-65% | | | on the prior study, done 10/29/13. 2. The right ventricle is normal in | | | size and function. 3. There is a possible small (3 mm) vegetation on | | | the ventricular surface of the aortic valve, probably the left | | | coronary cusp, but this is not well visualized. A SHALA would be | | | helpful, as it would give better resolution of this structure. | | + + + + + + | Narrative | Performed At | + + + | Patient Name: LIVE ROJAS Date of : 1965 | | | Performing Physician: SONIDO CHI MD | | | | | | INDICATIONS Question endocarditis CONCLUSIONS | | | 1. Overall left ventricular systolic function is normal | | | with a visually estimated EF of 55%, slightly decreased from the EF of | | | 60-65% on the prior study, done 10/29/13. 2. The right ventricle is | | | normal in size and function. 3. There is a possible small (3 mm) | | | vegetation on the ventricular surface of the aortic valve, probably | | | the left coronary cusp, but this is not well visualized. A SHALA would | | | be helpful, as it would give better resolution of this structure. | | | FINDINGS -------- ECG rhythm: Sinus rhythm. Study: A 2-dimensional | | | transthoracic echocardiogram with m-mode, spectral and color flow | | | Doppler was perfomed. Study: This was a technically adequate study. | | | Left Ventricle: Overall left ventricular systolic function is normal | | | with a visually estimated EF of 55%, slightly decreased from the EF of | | | 60-65% on the prior study, done 10/29/13. Left Ventricle: The left | | | ventricle cavity size is normal. Left Ventricle: There is mild | | | concentric left ventricular hypertrophy. Left Ventricle: No regional | | | wall motion abnormalities. Left Ventricle: Assessment of diastolic | | | function was indeterminate. Right Ventricle: The right ventricle is | | | normal in size and function. Left Atrium: The left atrium is mildly | | | dilated. Right Atrium: The right atrium is normal in size. Aortic | | | Valve: The aortic valve appears to be trileaflet. Aortic Valve: Trace | | | amount of aortic regurgitation. Aortic Valve: There is no evidence | | | of aortic stenosis. Mitral Valve: The mitral valve is normal. Mitral | | | Valve: There is trace mitral regurgitation, decreased from mild MR on | | | the previous study. Mitral Valve: No evidence of MVP. There is m | | | Mitral Valve: ild thickening of the mitral valve leaflets. Tricuspid | | | Valve: The tricuspid valve appears structurally normal. Tricuspid | | | Valve: Trace tricuspid regurgitation present. Tricuspid Valve: There | | | is no evidence of pulmonary hypertension. Tricuspid Valve: The right | | | ventricular systolic pressure (pulmonary artery systolic pressure), as | | | measured by Doppler, is 29.45mmHg. Pulmonic Valve: The pulmonic | | | valve is normal. Pulmonic Valve: Trace pulmonic regurgitation. | | | Pericardium: There is no pericardial effusion. IVC/Hepatic Veins: The | | | IVC was not well visualized. Aorta: Aortic arch not imaged. | | | Pulmonary Artery: The pulmonary artery is normal. Mass: No mass | | | visualized Thrombus: No clot visualized. There is a possible small | | | (3 mm) vegetation on Thrombus: the ventricular surface of the aortic | | | valve, probably the left coronary cusp, but this is not well | | | visualized. A SHALA would be helpful, as it would give better | | | resolution of this structure. Septum: No ASD observed. Septum: No | | | VSD observed. MEASUREMENTS Ao Diam: 3.49 cm Ao | | | st junct: 2.97 cm LA Diam: 4.39 cm EDV(Teich): 121.35 ml | | | IVSd: 1.28 cm LVIDd: 5.05 cm LVPWd: 1.21 cm LVOT Area: | | | 4.49 cm2 LVOT Diam: 2.39 cm %FS: 27.18 % EF(Teich): 52.66 | | | % ESV(Teich): 57.44 ml LVIDs: 3.68 cm SV(Teich): 63.90 ml | | | RV Major: 7.95 cm RVIDd: 3.32 cm TV Preeti Diam: 3.50 cm Ao | | | Diam SVals: 3.20 cm LVEF MOD A2C: 51.17 % SV MOD A2C: 74.56 | | | ml LVEF MOD A4C: 59.73 % SV MOD A4C: 128.62 ml EF Biplane: | | | 57.00 % LVEDV MOD BP: 184.08 ml LVESV MOD BP: 79.14 ml | | | LVEDV MOD A2C: 145.70 ml LVLd A2C: 9.08 cm LVEDV MOD A4C: | | | 215.32 ml LVLd A4C: 9.90 cm LVESV MOD A2C: 71.14 ml LVLs A2C: | | | 8.14 cm LVESV MOD A4C: 86.70 ml LVLs A4C: 8.32 cm | | | LAESV(A-L): 62.03 ml LAESV Index (A-L): 29.54 ml/m2 LAAs A2C: | | | 19.23 cm2 LAESV A-L A2C: 64.43 ml LALs A2C: 4.87 cm LAAs | | | A4C: 18.42 cm2 LAESV A-L A4C: 59.43 ml LALs A4C: 4.85 cm | | | RAAs: 10.81 cm2 RAESV A-L: 23.63 ml RAESV MOD: 22.84 ml | | | RALs: 4.20 cm TAPSE: 1.89 cm AV maxP.19 mmHg AV | | | meanP.56 mmHg AV Vmax: 1.24 m/s AV Vmean: 0.90 m/s AV | | | VTI: 24.56 cm GERALD Vmax: 3.46 cm2 GERALD (VTI): 3.75 cm2 LVOT | | | maxP.68 mmHg LVOT meanP.10 mmHg LVSI Dopp: 43.98 | | | ml/m2 LVSV Dopp: 92.37 ml LVOT Vmax: 0.96 m/s LVOT Vmean: | | | 0.67 m/s LVOT VTI: 20.55 cm MV A Jayy: 0.72 m/s MV Dec Baylor: | | | 6.02 m/s2 MV DecT: 155.27 ms MV E Jayy: 0.93 m/s MV E/A | | | Ratio: 1.29 MV PHT: 45.02 ms MVA By PHT: 4.88 cm2 Septal | | | e': 0.05 m/s Septal E/e': 16.09 Lateral e': 0.07 m/s | | | Lateral E/e': 12.08 RAP: 5 mmHg RVSP: 29.44 mmHg TR maxPG: | | | 24.44 mmHg TR Vmax: 2.47 m/s Economics Department Chair: Authenticated | | | by: SONIDO CHI MD Report Date/Time: 09-13-2017 19:2:12 | | + + + + + | Procedure Note | + + | Ej, Rad Conversion - 12/14/2018 3:19 PM PDT Patient Name: Sriram ROJAS | | of : 1965 Performing Physician: SONIDO CHI, | | INDICATIONS Q | | uestion endocarditis CONCLUSIONS 1. Overall left ventricular systolic function | | is normal with a visually estimated EF of 55%, slightly decreased from the EF of 60-65% | | on the prior study, done 10/29/13.2. The right ventricle is normal in size and | | function.3. There is a possible small (3 mm) vegetation on the ventricular surface of | | the aortic valve, probably the left coronary cusp, but this is not well visualized. A | | SHALA would be helpful, as it would give better resolution of this structure. | | FINDINGS--------ECG rhythm: Sinus rhythm.Study: A 2-dimensional transthoracic | | echocardiogram with m-mode, spectral and color flow Doppler was perfomed.Study: This was | | a technically adequate study.Left Ventricle: Overall left ventricular systolic function | | is normal with a visually estimated EF of 55%, slightly decreased from the EF of 60-65% | | on the prior study, done 10/29/13.Left Ventricle: The left ventricle cavity size is | | normal.Left Ventricle: There is mild concentric left ventricular hypertrophy.Left | | Ventricle: No regional wall motion abnormalities.Left Ventricle: Assessment of diastolic | | function was indeterminate.Right Ventricle: The right ventricle is normal in size and | | function.Left Atrium: The left atrium is mildly dilated.Right Atrium: The right atrium | | is normal in size.Aortic Valve: The aortic valve appears to be trileaflet.Aortic Valve: | | Trace amount of aortic regurgitation.Aortic Valve: There is no evidence of aortic | | stenosis.Mitral Valve: The mitral valve is normal.Mitral Valve: There is trace mitral | | regurgitation, decreased from mild MR on the previous study.Mitral Valve: No evidence of | | MVP. There is mMitral Valve: ild thickening of the mitral valve leaflets.Tricuspid | | Valve: The tricuspid valve appears structurally normal.Tricuspid Valve: Trace tricuspid | | regurgitation present.Tricuspid Valve: There is no evidence of pulmonary | | hypertension.Tricuspid Valve: The right ventricular systolic pressure (pulmonary artery | | systolic pressure), as measured by Doppler, is 29.45mmHg.Pulmonic Valve: The pulmonic | | valve is normal.Pulmonic Valve: Trace pulmonic regurgitation.Pericardium: There is no | | pericardial effusion.IVC/Hepatic Veins: The IVC was not well visualized.Aorta: Aortic | | arch not imaged.Pulmonary Artery: The pulmonary artery is normal.Mass: No mass | | visualizedThrombus: No clot visualized. There is a possible small (3 mm) vegetation | | onThrombus: the ventricular surface of the aortic valve, probably the left coronary | | cusp, but this is not well visualized. A SHALA would be helpful, as it would give better | | resolution of this structure.Septum: No ASD observed.Septum: No VSD observed. | | MEASUREMENTS Ao Diam: 3.[address] junct: 2.97 cmLA Diam: 4.39 | | cmEDV(Teich): 121.35 mlIVSd: 1.28 cmLVIDd: 5.05 cmLVPWd: 1.21 cmLVOT Area: | | 4.49 [id number] Diam: 2.39 cm%FS: 27.18 %EF(Teich): 52.66 %ESV(Teich): 57.44 | | mlLVIDs: 3.68 cmSV(Teich): 63.90 mlRV Major: 7.95 cmRVIDd: 3.32 cmTV Preeti Diam: | | 3.50 cmAo Diam SVals: 3.20 cmLVEF MOD A2C: 51.17 %SV MOD A2C: 74.56 mlLVEF MOD | | A4C: 59.73 %SV MOD A4C: 128.62 mlEF Biplane: 57.00 %LVEDV MOD BP: 184.08 mlLVESV | | MOD BP: 79.14 mlLVEDV MOD A2C: 145.70 mlLVLd A2C: 9.08 cmLVEDV MOD A4C: 215.32 | | mlLVLd A4C: 9.90 cmLVESV MOD A2C: 71.14 mlLVLs A2C: 8.14 cmLVESV MOD A4C: 86.70 | | mlLVLs A4C: 8.32 cmLAESV(A-L): 62.03 mlLAESV Index (A-L): 29.54 ml/m2LAAs A2C: | | 19.23 [id number] A-L A2C: 64.43 mlLALs A2C: 4.87 cmLAAs A4C: 18.42 [id number] A-L A4C: | | 59.43 mlLALs A4C: 4.85 cmRAAs: 10.81 [id number] A-L: 23.63 mlRAESV MOD: 22.84 | | mlRALs: 4.20 cmTAPSE: 1.89 cmAV maxP.19 mmHgAV meanP.56 mmHgAV Vmax: | | 1.24 m/Ly Vmean: 0.90 m/Ly VTI: 24.56 cmAVA Vmax: 3.46 cm2AVA (VTI): 3.75 | | [id number] maxP.68 mmHgLVOT meanP.10 mmHgLVSI Dopp: 43.98 ml/m2LVSV Dopp: | | 92.37 mlLVOT Vmax: 0.96 m/sLVOT Vmean: 0.67 m/sLVOT VTI: 20.55 cmMV A Jayy: 0.72 | | m/sMV Dec Baylor: 6.02 m/s2MV DecT: 155.27 msMV E Jayy: 0.93 m/sMV E/A Ratio: | | 1.29MV PHT: 45.02 msMVA By PHT: 4.88 ol2Grhetd e': 0.05 m/sSeptal E/e': | | 16.09Lateral e': 0.07 m/sLateral E/e': 12.08RAP: 5 mmHgRVSP: 29.44 mmHgTR maxPG: | | 24.44 mmHgTR Vmax: 2.47 m/s Economics Department Chair:Authenticated by: Cherelle YI | | Date/Time: 09-13-2017 19:2:12 IMPRESSION: 1. Overall left ventricular systolic function | | is normal with a visually estimated EF of 55%, slightly decreased from the EF of 60-65% | | on the prior study, done 10/29/13.2. The right ventricle is normal in size and function.3. | | There is a possible small (3 mm) vegetation on the ventricular surface of the aortic | | valve, probably the left coronary cusp, but this is not well visualized. A SHALA would be | | helpful, as it would give better resolution of this structure. | |EDV(Teich): 121.35 ml | |IVSd: 1.28 cm | |LVIDd: 5.05 cm | |LVPWd: 1.21 cm | |LVOT Area: 4.49 cm2 | |LVOT Diam: 2.39 cm | |%FS: 27.18 % | |EF(Teich): 52.66 % | |ESV(Teich): 57.44 ml | |LVIDs: 3.68 cm | |SV(Teich): 63.90 ml | |RV Major: 7.95 cm | |RVIDd: 3.32 cm | |TV Preeti Diam: 3.50 cm | |Ao Diam SVals: 3.20 cm | |LVEF MOD A2C: 51.17 % | |SV MOD A2C: 74.56 ml | |LVEF MOD A4C: 59.73 % | |SV MOD A4C: 128.62 ml | |EF Biplane: 57.00 % | |LVEDV MOD BP: 184.08 ml | |LVESV MOD BP: 79.14 ml | |LVEDV MOD A2C: 145.70 ml | |LVLd A2C: 9.08 cm | |LVEDV MOD A4C: 215.32 ml | |LVLd A4C: 9.90 cm | |LVESV MOD A2C: 71.14 ml | |LVLs A2C: 8.14 cm | |LVESV MOD A4C: 86.70 ml | |LVLs A4C: 8.32 cm | |LAESV(A-L): 62.03 ml | |LAESV Index (A-L): 29.54 ml/m2 | |LAAs A2C: 19.23 cm2 | |LAESV A-L A2C: 64.43 ml | |LALs A2C: 4.87 cm | |LAAs A4C: 18.42 cm2 | |LAESV A-L A4C: 59.43 ml | |LALs A4C: 4.85 cm | |RAAs: 10.81 cm2 | |RAESV A-L: 23.63 ml | |RAESV MOD: 22.84 ml | |RALs: 4.20 cm | |TAPSE: 1.89 cm | |AV maxP.19 mmHg | |AV meanP.56 mmHg | |AV Vmax: 1.24 m/s | |AV Vmean: 0.90 m/s | |AV VTI: 24.56 cm | |GERALD Vmax: 3.46 cm2 | |GERALD (VTI): 3.75 cm2 | |LVOT maxP.68 mmHg | |LVOT meanP.10 mmHg | |LVSI Dopp: 43.98 ml/m2 | |LVSV Dopp: 92.37 ml | |LVOT Vmax: 0.96 m/s | |LVOT Vmean: 0.67 m/s | |LVOT VTI: 20.55 cm | |MV A Jayy: 0.72 m/s | |MV Dec [facility]: 6.02 m/s2 | |MV DecT: 155.27 ms | |MV E Jayy: 0.93 m/s | |MV E/A Ratio: 1.29 | |MV PHT: 45.02 ms | |MVA By PHT: 4.88 cm2 | |Septal e': 0.05 m/s | |Septal E/e': 16.09 | |Lateral e': 0.07 m/s | |Lateral E/e': 12.08 | |RAP: 5 mmHg | |RVSP: 29.44 mmHg | |TR maxP.44 mmHg | |TR Vmax: 2.47 m/s | | | |Economics Department Chair: | |Authenticated by: SONIDO CHI MD | |Report Date/Time: 09-13-2017 19:2:12 | | | |IMPRESSION: | |1. Overall left ventricular systolic function is normal with a visually estimated EF of 55% , slightly decreased from the EF of 60-65% on the prior study, done 10/29/13. | |2. The right ventricle is normal in size and function. | |3. There is a possible small (3 mm) vegetation on the ventricular surface of the aortic olman ve, probably the left coronary cusp, but this is not well visualized. A SHALA would be helpfu l, as it would give better resolution of this structure. | + + documented in this encounter Visit Diagnoses Not on filedocumented in this encounter"
--- OUTSIDE RECORDS SUMMARY | ~2019-04-07 | XMS | Encounter Summary ---
Demographics + + + | Address | [address] | | | [place] [address] | + + + | Home Phone | | + + + | Preferred Language | Unknown | + + + | Marital Status | Legally | + + + | Christian Affiliation | 1041 | + + + [...] Team Providers + +------+ + | Care Hand Tacker Name | Role | Phone | + +------+ + PCP | Unavailable | + +------+ + Encounter Details +--------+ + + + + | Date | Type | Department | Care Team | Description | +--------+ + + + + | 11/14/ | Abstract | [facility] | Shea Pedraza W, | | | 2018 | | NEPHROLOGY [address] | | | | | [address] | [address] [place] | | | | | [place], [place] | [place] [address] | | | | | [address] | [phone] | | | | | [phone] | | | +--------+ + + + [...] | | | | | [place] [address] | | | | | | [phone] | | | | | | | | +--------+---------+ + + + documented as of this encounter Procedures + +--------+ + + + | Procedure Name | Priori | Date/Time | Associated Diagnosis | Comments | | | ty | | | | + +--------+ + + + | EXTERNAL LAB: | Routin | 11/13/2018 | | Results for this | | PROTEIN/CREATININE | e | | | procedure are in the | | RATIO | | | | results section. | + +--------+ + + + documented in this encounter Results External Lab: Protein/Creatinine Ratio (11/13/2018) + + + + + + | Component | Value | Ref Range | Performed | Pathologist | | | | | At | Signature | + + + + + + | Protein/Cre | 4.724 (A) | 0.2 | | | | atinine | | | | | | Ratio, | | | | | | External | | | | | + + + + + + + + | Specimen | + + | | + + documented in this encounter Visit Diagnoses Not on filedocumented in this encounter"
--- OUTSIDE RECORDS SUMMARY | ~2019-04-07 | XMS | Encounter Summary ---
Demographics + + + | Address | [address] | | | [place] [address] | + + + | Home Phone | | + + + | Preferred Language | Unknown | + + + | Marital Status | Legally | + + + | Yazidism Affiliation | 1041 | + + + | Race | Unknown | + + + | Ethnic Group | Unknown | + + + Author + + + | Author | [facility] | | | and [place] | + + + | Organization | [facility] | | | [...] Team Providers + +------+ + | Care Building Services Coordinator Name | Role | Phone | + +------+ + PCP | Unavailable | + +------+ + Reason for Visit + + + | Reason | Comments | + + + | Numbness | bilateral pinky and ring finger of both hands | + + + Service/Procedure (Routine) +--------+--------+ + + + + | Status | Reason | Specialty | Diagnoses / | Referred By | Referred To | | | | | Procedures | Contact | Contact | +--------+--------+ + + + + | Closed | | Physical | Diagnoses | | Zichilonbshadi, | | | | Medicine and | Disturbance | Dani, | Elmer Razo MD | | | | Rehabilitatio | of skin | Elmer Razo MD | [address] | | | | n | sensation | [address] | [address] [place] | | | | | Procedures | [place] | [facility], [place] | | | | | AL MOTOR | [facility], [place] | [address] Phone: | | | | | &/SENS 1-2 | [address] | [phone] | | | | | NRV CNDJ | Phone: | Fax: | | | | | PRECONF | [phone] | [phone] | | | | | [place]TRODE [place]B | Fax: | | | | | | | [phone] | | | | | | EMG/NCS-pare | | | | | | | sthesia of | | | | | | | fingers, | | | | | | | peripheral | | | | | | | neuropathy | | | | | | | referred br | | | | | | | Dr. Contreras | | | +--------+--------+ + + + + Encounter Details +--------+ + + + + | Date | Type | Department | Care Team | Description | +--------+ + + + + | 08/12/ | Procedure | [facility] [place] | Elmer Louise | 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) | | | | [place], | [place], [place] | (Primary Dx); Ulnar | | | | [place] [address] | [address] | neuropathy at elbow, | | | | [phone] | | unspecified | | | | | | laterality | +--------+ + + + + Social [...] + + + | Blood Pressure | 144/88 | 08/12/2014 11:04 AM | | | | | PDT | | + + + + + | Pulse | 87 | 08/12/2014 11:04 AM | | | | | PDT | | + + + + + | Temperature | - | - | | + + + + + | Respiratory Rate | - | - | | + + + + + | Oxygen Saturation | - | - | | + + + + + | Inhaled Oxygen | - | - | | | Concentration | | | | + + + + + | Weight | 95.3 kg (210 lb) | 08/12/2014 11:04 AM | | | | | PDT | | + + + + + | Height | 180.3 cm (5' 11") | 08/12/2014 11:04 AM | | | | | PDT | | + + + + + | Body Mass Index | 29.29 | 08/12/2014 11:04 AM | | | | | PDT | | + + + + + documented in this encounter Progress Notes Elmer Louise MD - 08/12/2014 12:26 PM PDT [facility] Mus[facility], Sports [facility] Spine, Physiatry [address] [address] Test Date: 08/12/2014 Patient Name: Joselito Robertson : 1965 Physician: Elmer Louise MD MR #: [id number] Sex: Male Referring Physician: Morgan Contreras PA-C HISTORY: The patient is a very pleasant 49 year-old male who is being seen today at the request of Morgan Contreras PA-C for complaints of numbness in both hands, more pronounced i n an ulnar distribution. The patient reports that it has progressively been getting worse f or several years. He denies any significant pain other than periodic discomfort in one wris t. He does feel weak in the hands. 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 He was diagnosed with diabetes ten years ago. He has been an insulin dependent diabetic for the last 3 years. He denies any h istory of hypothyroidism, cancer or alcohol abuse. There was some apparent wasting of the h and intrinsics and weakness with finger abduction bilaterally. Nerve Conduction Studies Anti Sensory Summary Table Site NR Peak (ms) Norm Peak (ms) P-T Amp (V) Norm P-T Amp Site1 Site2 Delta-P (ms) Dist (cm) Jayy (m/s) Norm Jayy (m/s) Left Radial Anti Sensory (Base 1st Digit) Wrist *NR <3.1 Wrist Base 1st Digit 0.0 Right Radial Anti Sensory (Base 1st Digit) Wrist *NR <3.1 Wrist Base 1st Digit 0.0 Motor Summary Table Site NR Onset (ms) Norm Onset (ms) O-P Amp (mV) Norm O-P Amp Site1 Site2 Delta-0 (ms) Dist (cm) Jayy (m/s) Norm Jayy (m/s) Left Median Motor (Abd Poll Brev) Wrist *4.9 <4.2 6.1 >5 Elbow Wrist 4.9 22.0 *45 >50 Elbow 9.8 5.1 Right Median Motor (Abd Poll Brev) Wrist *5.3 <4.2 6.4 >5 Elbow Wrist 5.4 23.0 *43 >50 Elbow 10.7 6.3 Left Ulnar Motor (Abd Dig Minimi) Wrist *8.9 <4.2 *0.4 >3 B Elbow Wrist 8.6 22.0 *26 >53 B Elbow 17.5 0.4 A Elbow B Elbow 5.5 10.0 *18 >53 A Elbow 23.0 0.6 Right Ulnar Motor (Abd Dig Minimi) Wrist *5.5 <4.2 *1.2 >3 B Elbow Wrist 5.4 22.0 *41 >53 B Elbow 10.9 1.0 A Elbow B Elbow 4.2 10.0 *24 >53 A Elbow 15.1 1.1 Comparison Summary Table Site NR Peak (ms) Norm Peak (ms) P-T Amp (V) Site1 Site2 Delta-P (ms) Norm Delta (ms) Left Median/Ulnar Palm Comparison (Wrist - 8cm) Median Palm *NR <2.2 Median Palm Ulnar Palm <0.3 Ulnar Palm *NR <2.2 Right Median/Ulnar Palm Comparison (Wrist - 8cm) Median Palm *NR <2.2 Median Palm Ulnar Palm <0.3 Ulnar Palm *NR <2.2 EMG Side Muscle Nerve Root Ins Act Fibs Psw Amp Dur Poly Recrt Int Pat Comment Right Deltoid Axillary C5-6 Nml Nml Nml Nml Nml 0 Nml Nml Right Biceps Musculocut C5-6 Nml Nml Nml Nml Nml 0 Nml Nml Right Triceps Radial C6-7-8 Nml Nml Nml Nml Nml 0 Nml Nml Right PronatorTeres Median C6-7 Nml Nml Nml Nml Nml 0 Nml Nml Right [place] Pollicis Median C8-T1 Nml Nml Nml Nml Nml 0 Nml Nml Right 1stDorInt Ulnar C8-T1 Nml Nml Nml Nml Nml 0 Nml Nml Left Deltoid Axillary C5-6 Nml Nml Nml Nml Nml 0 Nml Nml Left Biceps Musculocut C5-6 Nml Nml Nml Nml Nml 0 Nml Nml Left Triceps Radial C6-7-8 Nml Nml Nml Nml Nml 0 Nml Nml Left PronatorTeres Median C6-7 Nml Nml Nml Nml Nml 0 Nml Nml Left [place] Pollicis Median C8-T1 Nml Nml Nml Nml Nml 0 Nml Nml Left 1stDorInt Ulnar C8-T1 Nml Nml Nml Nml Nml 0 Nml Nml Nerve Conduction Studies Motor Left/Right Comparison Site L Lat (ms) R Lat (ms) L-R Lat (ms) L Amp (mV) R Amp (mV) L-R Amp (%) Site1 Site2 L Ve l (m/s) R Jayy (m/s) L-R Jayy (m/s) Median Motor (Abd Poll Brev) Wrist *4.9 *5.3 0.4 6.1 6.4 4.7 Elbow Wrist *45 *43 2 Elbow 9.8 10.7 0.9 5.1 6.3 19.0 Ulnar Motor (Abd Dig Minimi) Wrist *8.9 *5.5 *3.4 *0.4 *1.2 *66.7 B Elbow Wrist *26 *41 *15 B Elbow 17.5 10.9 6.6 0.4 1.0 60.0 A Elbow B Elbow *18 *24 6 A Elbow 23.0 15.1 7.9 0.6 1.1 45.5 Anti Sensory Left/Right Comparison Site L Lat (ms) R Lat (ms) L-R Lat (ms) L Amp (V) R Amp (V) L-R Amp (%) Site1 Site2 L Jayy (m/s) R Jayy (m/s) L-R Jayy (m/s) Radial Anti Sensory (Base 1st Digit) Wrist Wrist Base 1st Digit Comparison Left/Right Comparison Site L Lat (ms) R Lat (ms) L-R Lat (ms) L Amp (V) R Amp (V) L-R Amp (%) Median/Ulnar Palm Comparison (Wrist - 8cm) Median Palm Ulnar Palm NCV FINDINGS: Evaluation of the Left median motor and the Right median motor nerves showed prolonged dist al onset latency and decreased conduction velocity (Elbow-Wrist). The Left ulnar motor and the Right ulnar motor nerves showed prolonged distal onset latency, reduced amplitude, decre ased conduction velocity (B Elbow-Wrist), and decreased conduction velocity (A Elbow-B Elbow ). The Left radial sensory and the Right radial sensory nerves showed no response (Wrist). The Left median/ulnar (palm) comparison and the Right median/ulnar (palm) comparison nerves showed no response (Median Palm) and no response (Ulnar Palm). EMG FINDINGS: All examined muscles (as indicated in the preceding table) showed no evidence of electrical instability. IMPRESSION: There is electrodiagnostic evidence of a severe peripheral neuropathy with slowing of all m otor conduction velocities and absent sensory responses. There does also appear to be a concomitant focal ulnar neuropathy bilaterally with dispropo rtionate slowing of the ulnar motor velocities and severely decreased amplitudes. There was also evidence of denervation in the 1st dorsal interossei bilaterally, this is especially s ignificant on the left. I cannot rule out a concomitant median neuropathy. There was no electrodiagnostic evidence of cervical radiculopathy or brachial plexopathy. Ulnar nerve decompression at the elbows should be considered, however, with the patient's d iabetes and generalized neuropathy recovery of the nerves may be poor. Thank you for allowing me to perform neurodiagnostic testing on your patient. If you have a ny further questions or comments, please do not hesitate to call. Elmer Louise MD Fellow, [employer]. documented in this encounter Plan of Treatment +--------+---------+ + + + | Date | Type | Specialty | Care Team | Description | +--------+---------+ + + + | 06/19/ | Office | Nephrology | Shea Pedraza, | | | 2019 | Visit | | MD Harmony Pend[address] [place] | | | | | | [address] [place] | | | | | | [place] [address] | | | | | | [phone] | | | | | | | | +--------+---------+ + + + documented as of this encounter Visit Diagnoses + + | Diagnosis | + + | Diabetic peripheral neuropathy (HCC) - Primary Type II or unspecified type diabetes | | mellitus with neurological manifestations, not stated as uncontrolled | + + | Ulnar neuropathy at elbow, unspecified laterality | + + documented in this encounter
--- OUTSIDE RECORDS SUMMARY | ~2019-04-07 | XMS | Encounter Summary ---
Demographics + + + | Address | [address] | | | [place] [address] | + + + | Home Phone | | + + + | Preferred Language | Unknown | + + + | Marital Status | Legally | + + + | Orthodoxy Affiliation | 1041 | + + + | Race | Unknown | + + + | Ethnic Group | Unknown | + + + Author + + + | Author | [facility] | | | and [place] | + + + | Organization | [facility] | | | and [place] | + + + | Address | Unknown | + + + | Phone | Unavailable | + + + Support + + +---------+ + | Name | Relationship | Address | Phone | + + +---------+ + | Halina Marcelo | ECON | Unknown | | + + +---------+ + | Danelle Robertson | ECON | Unknown | | + + +---------+ + Care Team Providers + +------+ + | Care Lead Refiner Name | Role | Phone | + +------+ + | Janusz Davis MD | PCP | | + +------+ + Encounter Details +--------+ + + + + | Date | Type | Department | Care Team | Description | +--------+ + + + + | 03/16/ | Abstract | [facility] [place] | Shea Pderaza W, | | | 2018 | | NEPHROLOGY [address] | MD [address] | | | | | [address] | [address] [place] | | | | | [place], [place] | [place] [address] | | | | | [address] | [phone] | | | | | [phone] | | | +--------+ + + + [...] + + documented as of this encounter Functional Status + + + [...] | 06/19/ | Office | Nephrology | Pedraza, Shea W, | | | 2020 | Visit | | MD [address] | | | | | | [address] [place] | | | | | | [place] [address] | | | | | | [phone] | | | | | | | | +--------+---------+ + + + documented as of this encounter Procedures + +--------+ + + + | Procedure Name | Priori | Date/Time | Associated Diagnosis | Comments | | | ty | | | | + +--------+ + + + | EXTERNAL LAB: LEONOR | Routin | 03/13/2019 | | Results for this | | TOTAL | e | | | procedure are in the | | | | | | results section. | + +--------+ + + + | EXTERNAL LAB: IRON | Routin | 03/13/2019 | | Results for this | | SATURATION | e | | | procedure are in the | | | | | | results section. | + +--------+ + + + | EXTERNAL LAB: IRON | Routin | 03/13/2019 | | Results for this | | BINDING CAPACITY | e | | | procedure are in the | | | | | | results section. | + +--------+ + + + | EXTERNAL LAB: | Routin | 03/13/2019 | | Results for this | | FERRITIN | e | | | procedure are in the | | | | | | results section. | + +--------+ + + + | TRANSFERRIN | Routin | 03/13/2019 | | Results for this | | | e | | | procedure are in the | | | | | | results section. | + +--------+ + + + documented in this encounter Results Transferrin (03/13/2019) + + + + + + | Component | Value | Ref Range | Performed | Pathologist | | | | | At | Signature | + + + + + + | TRANSFERRIN | 221.0 (A) | 260.0 - 400.0 | | | | | | mg/dL | | | + + + + + + | PRO/CREA | 2.50 (A) | 0.00 - 0.20 | | | | RATIO,URINE | | mg/mg | | | + + + + + + + + | Specimen | + + | Blood | + + External Lab: Iron Total (03/13/2019) + +---------+ + + + | Component | Value | Ref Range | Performed | Pathologist | | | | | At | Signature | + +---------+ + + + | Iron, | 255 (A) | 45 - 190 | EXTERNAL | | | External | | | LAB | | + +---------+ + + + + +---------+ + + | Performing | Address | City/State/Zipcode | Phone Number | | Organization | | | | + +---------+ + + | EXTERNAL LAB | | | | + +---------+ + + External Lab: Iron Saturation (03/13/2019) + + + + + + | Component | Value | Ref Range | Performed | Pathologist | | | | | At | Signature | + + + + + + | Iron | 83.1 (A) | 20 - 55 | EXTERNAL | | | Saturation, | | | LAB | | | External | | | | | + + + + + + + +---------+ + + | Performing | Address | City/State/Zipcode | Phone Number | | Organization | | | | + +---------+ + + | EXTERNAL LAB | | | | + +---------+ + + External Lab: Iron Binding Capacity (03/13/2019) + +-------+ + + + | Component | Value | Ref Range | Performed | Pathologist | | | | | At | Signature | + +-------+ + + + | Iron | 307 | 245 - 400 | EXTERNAL | | | Binding | | | LAB | | | Capacity, | | | | | | External | | | | | + +-------+ + + + + +---------+ + + | Performing | Address | City/State/Zipcode | Phone Number | | Organization | | | | + +---------+ + + | EXTERNAL LAB | | | | + +---------+ + + External Lab: Ferritin (03/13/2019) + +-------+ + + + | Component | Value | Ref Range | Performed | Pathologist | | | | | At | Signature | + +-------+ + + + | Ferritin, | 253.5 | 22 - 405 | EXTERNAL | | | External | [...]
--- OUTSIDE RECORDS SUMMARY | ~2019-04-07 | XMS | Encounter Summary ---
Demographics + + + | Address | [address] | | | [place] [address] | + + + | Home Phone | | + + + | Preferred Language | Unknown | + + + | Marital Status | Legally | + + + | Samaritan Affiliation | 1041 | + + + | Race | Unknown | + + + | Ethnic Group | Unknown | + + + Author + + + | Author | [facility] | | | and [place] | + + + | Organization | [facility] | | | [...] Team Providers + +------+ + | Care Drawing Kiln Supervisor Name | Role | Phone | + +------+ + | Janusz Davis MD | PCP | | + +------+ + Reason for Visit + + + | Reason | Comments | + + + | Chronic Kidney | | | Disease, Stage III | | + + + Evaluate & Treat (Routine) +--------+--------+ + + + + | Status | Reason | Specialty | Diagnoses / | Referred By | Referred To | | | | | Procedures | Contact | Contact | +--------+--------+ + + + + | Closed | | Nephrology | Diagnoses | Bradleye, | Milo, | | | | | Chronic | Janusz | Shea Pendleton, | | | | | kidney | MD [place] | [address] | | | | | disease, | [address] [address] | [place] [address] | | | | | stage [address] | [address] | [address] [place] | | | | | (moderate) | [place], | [place] | | | | | (HCC) | [place] [address] | [address] Phone: | | | | | Procedures | Phone: | [phone] | | | | | [place] OFFICE | [phone] | Fax: | | | | | OUTPATIENT | Fax: | [phone] | | | | | VISIT 25 | [phone] | | | | | | MINUTES | | | +--------+--------+ + + + + Encounter Details +--------+---------+ + + + | Date | Type | Department | Care Team | Description | +--------+---------+ + + + | 03/15/ | Office | [facility] | Shea Pedraza, | CKD (chronic kidney | | 2019 | Visit | NEPHROLOGY [address] | MD [address] | disease) stage 3, | | | | [address] | [address] [place] | GFR 30-59 ml/min | | | | [place] | [place] [address] | ([facility]) (Primary Dx); | | | | [address] | [phone] | Essential | | | | [phone] | | hypertension with | | | | | | goal blood pressure | | | | | | less than 130/85; | | | | | | Ischemic | | | | | | cardiomyopathy; S/P | | | | | | CABG x 4 | +--------+---------+ + + + Social History [...] + + + | Blood Pressure | 102/54 | 03/15/2019 1:31 PM | | | | | PST | | + + + + + | Pulse | 78 | 03/15/2019 1:31 PM | | | | | PST | | + + + + + | Temperature | - | - | | + + + + + | Respiratory Rate | - | - | | + + + + + | Oxygen Saturation | 100% | 03/15/2019 1:31 PM | | | | | PST | | + + + + + | Inhaled Oxygen | - | - | | | Concentration | | | | + + + + + | Weight | 89.1 kg (196 lb 6.9 | 03/15/2019 1:31 PM | | | | oz) | PST | | + + + + + | Height | - | - | | + + + + + | Body Mass Index | 27.4 | 02/11/2019 6:02 AM | | | | | PDT [...] of this encounter Patient Instructions Patient Instructions Shea Pedraza MD - 03/15/2019 1:45 PM PSTYour latest kidney func tion was at 37% (based on blood test, serum creatinine of 2.0 mg/dL). Your good blood pressure is 110-125 / 60-80. documented in this encounter Progress Notes Shea Pedraza MD - 03/15/2019 1:45 PM PSTFormatting of this note might be different f rom the original. Nephrology Follow-up Visit Visit date: 03/15/2019 Primary care provider: Janusz Davis MD Chief Complaint Patient presents with Chronic Kidney Disease, Stage III HPI: Joselito Robertson is a 53 y.o. male with type 2 DM, hypertension, proteinuric chronic kidn ey disease, and CAD s/p 4-v CABG on 02/15/19. Since last clinic visit, pt was admitted to [facility] on 02/11/19 with a NSTEMI. Pt underwent a 4-v CABG (HEALY to LAD, SVG to diag, SVG ramus intermedius, SVG to OM) on 02/15/[address] Liban Nair at [facility]. Echo on 02/21/19 showed LVEF 30%. Pt has f/u with cardiology nabil joyce. Pt reports he is feeling well. He continues to have some chest discomfort with coughing, b ut pt denies anginal pain. Pt denies shortness of breath. Pt is having swelling of his rig ht leg (SVG harvested from his leg). Pt denies orthostatic lightheadedness. Pt reports his Januvia was discontinued, and pt was started on metformin [address] Whit Davis yesterday. Pt had diarrhea with Januvia. Pt reports he is drinking about 8 cups of liquid per day (3 x 16-oz of water, 1 x 16-oz of Zero brand water). ROS: A 6-system review was performed, and was negative or noncontributory other than as sta gustavo above. PMH: Patient Active Problem List Diagnosis Date Noted S/P CABG x 4 02/24/2019 Ischemic cardiomyopathy 02/23/2019 NSTEMI (non-ST elevated myocardial infarction) ([facility]) 02/11/2019 Acute coronary syndrome ([facility]) 02/11/2019 CKD (chronic kidney disease) stage 3, GFR 30-59 ml/min ([facility]) 11/14/2018 Vitamin D deficiency 10/13/2017 Diabetic neuropathy associated with type 2 diabetes mellitus ([facility]) 10/13/2017 Note Last Updated: 10/13/2017 Bilateral feet uncontrolled Ischemic heart disease 10/13/2017 Anticoagulated 09/15/2017 Psoriasis 09/15/2017 Diarrhea 03/23/2017 Encounter for screening for malignant neoplasm of colon 03/23/2017 Essential hypertension with goal blood pressure less than 130/85 08/12/2016 Diabetic peripheral neuropathy ([facility]) 08/12/2014 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 30 tablet 0 Physical Exam: Vitals: 03/15/19 1331 BP: 102/54 Pulse: 78 SpO2: 100% Weight: 89.1 kg (196 lb 6.9 oz) Body mass index is 27.4 kg/m. Constitutional: Appears well-developed and well-nourished. No distress. Cardiovascular: Normal rate, regular rhythm and normal heart sounds. 1-2+ RLE edema, minim al LLE peripheral edema. Lungs: Respiratory effort normal and breath sounds normal. No crackles or wheezes. Abdominal: Soft. Bowel sounds are present. Skin: Skin is warm. Neurological: Alert. Memory intact. Reviewed labs with patient. Abstract on 03/14/2019 Component Date Value Ref Range Status Creatinine, External 03/13/2019 2.0 Final eGFR, External 03/13/2019 37 Final WBC, External 03/13/2019 8.56 Final HGB, External 03/13/2019 10.61 Final HCT, External 03/13/2019 31 Final PLT, External 03/13/2019 270 Final RBC, External 03/13/2019 3.31 Final MCV, External 03/13/2019 94 Final RDW, External 03/13/2019 13.18 Final UA Blood, External 03/13/2019 negative Final UA Glucose, External 03/13/2019 negative Final UA Ketones, External 03/13/2019 negative Final UA Ph, External 03/13/2019 5.0 Final UA Proteins, External 03/13/2019 100 Final UA RBC, External 03/13/2019 0 Final UA Specific [place], External 03/13/2019 1.012 Final UA Leukocyte Esterase, External 03/13/2019 negative Final Sodium, External 03/13/2019 138 Final Potassium, External 03/13/2019 4.5 Final Chloride, External 03/13/2019 110 Final Carbon Dioxide, External 03/13/2019 19 Final Calcium, External 03/13/2019 8.7 Final Phosphorus, External 03/13/2019 5.4 Final Albumin, External 03/13/2019 3.2 Final Glucose, External 03/13/2019 125 Final BUN, External 03/13/2019 35 Final WBC UA 03/13/2019 4 /HPF Final Color 03/13/2019 Dark Yellow* Light Yellow, Yellow Final Clarity 03/13/2019 Clear Final Bacteria, UA 03/13/2019 negative Final SQUAMOUS EPITHELIAL UA 03/13/2019 1 /HPF Final Nitrite, Urine 03/13/2019 Negative Negative Final No results displayed because visit has over 200 results. ASSESSMENT AND PLAN: 1. 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 Baseline serum creatinine was around 1.4-1.6 mg/dL. Latest serum creatinine is at 2.0 mg/dL. Possibly worse due to cardiorenal syndrome. No overt CHF. RLE edema is likely due to vein surgery. Consider compression stocking for right leg. Ok to continue metformin as long as eGFR >30 mL/min. Pt received his flu vaccine for 1438-1564. 2. Essential hypertension with goal blood pressure less than 130/85 Clinic BP is low. Pt is asymptomatic. On losartan 50 mg daily and metoprolol XL 50 mg BID. Not on diuretic. 3. Ischemic cardiomyopathy LVEF 30% s/p NSTEMI and 4-v CABG. On ASA, beta-martha, statin, ARB, Coumadin (h/o afib). 4. S/P CABG x 4 Pt is healing well from surgery. F/u with cardiology. Return in 3 months. Cbc, iron, renal, vit d, pth, ua, upcr. documented in this encounter Plan of Treatment +--------+---------+ + + + | Date | Type | Specialty | Care Team | Description | +--------+---------+ + + + | 06/19/ | Office | Nephrology | Shea Pedraza, | | | 2019 | Visit | | MD [address]ony [address] [place] | | | | | | [address] [place] | | | | | | [place] [address] | | | | | | [phone] | | | | | | | | +--------+---------+ + + + documented as of this encounter Visit Diagnoses + + | Diagnosis | + + | CKD (chronic kidney disease) stage 3, GFR 30-59 ml/min ([facility]) - Primary Chronic kidney | | disease, Stage III (moderate) | + + | Essential hypertension with goal blood pressure less than 130/85 | + + | Ischemic cardiomyopathy Other specified forms of chronic ischemic heart disease | + + | S/P CABG x 4 Postsurgical aortocoronary bypass status | + + documented in this encounter"
--- OUTSIDE RECORDS SUMMARY | ~2019-04-07 | XMS | Encounter Summary ---
Demographics + + + | Address | [address] | | | [place] [address] | + + + | Home Phone | | + + + | Preferred Language | Unknown | + + + | Marital Status | Legally | + + + | Church Affiliation | 1041 | + + + | Race | Unknown | + + + | Ethnic Group | Unknown | + + + Author + + + | Author | [facility] | | | and [place] | + + + | Organization | [facility] | | | [...] Team Providers + +------+ + | Care Deburring And Tooling Machine Operator Name | Role | Phone | [...] | | | | kidney | MD Nawaf | [address] | | | | | disease, | [address] [address] | [address] | | | | | stage [address] | [address] | [address] [place] | | | | | (moderate) | [place], | [place] | | | | | (HCC) | [place] [address] | [address] Phone: | | | | | Procedures | Phone: | [phone] | | | | | [place] OFFICE | [phone] | Fax: | | | | | OUTPATIENT | Fax: | [phone] | | | | | VISIT 25 | [phone] | | | | | | MINUTES | | | +--------+--------+ + + + + Encounter Details +--------+---------+ + + + | Date | Type | Department | Care Team | Description | +--------+---------+ + + + | 03/15/ | Office | [facility] | Shea Pedraza, | CKD (chronic kidney | | 2019 | Visit | NEPHROLOGY [address] | MD Antune[address] | disease) stage 3, | | | | [address] | [address] [place] | GFR 30-59 ml/min | | | | [place] | [place] [address] | ([facility]) (Primary Dx); | | | | [address] | [phone] | Essential | | | | [phone] | | hypertension with | | | [...] last clinic visit, pt was admitted to [facility] on 02/11/19 with a NSTEMI. Pt underwent a 4-v CABG (HEALY to LAD, SVG to diag, SVG ramus intermedius, SVG to OM) on 02/15/[address] Liban Nair at [facility]. Echo on 02/21/19 showed LVEF 30%. Pt [...] cardiomyopathy 02/23/2019 NSTEMI (non-ST elevated myocardial infarction) ([facility]) 02/11/2019 Acute coronary syndrome ([facility]) 02/11/2019 CKD (chronic kidney disease) stage 3, GFR 30-59 ml/min ([facility]) 11/14/2018 Vitamin D deficiency 10/13/2017 Diabetic neuropathy associated with type 2 diabetes mellitus ([facility]) 10/13/2017 Note Last Updated: 10/13/2017 Bilateral feet uncontrolled Ischemic heart disease 10/13/2017 Anticoagulated 09/15/2017 Psoriasis 09/15/2017 Diarrhea 03/23/2017 Encounter for screening for malignant neoplasm of colon 03/23/2017 Essential hypertension with goal blood pressure less than 130/85 08/12/2016 Diabetic peripheral neuropathy ([facility]) 08/12/2014 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 Pt received his flu vaccine for [id number]. 2. Essential hypertension with goal blood pressure [...] | Visit | | MD Harmony Pendleton [address] | | | | | | [address] [place] | | | | | | [place] [address] | | | | | | [phone] | | | | | | | | +--------+---------+ + + + documented as of this encounter Visit Diagnoses + + | Diagnosis | + + | CKD (chronic kidney disease) stage 3, GFR 30-59 ml/min ([facility]) - Primary Chronic kidney | | [...]
--- OUTSIDE RECORDS SUMMARY | ~2019-04-07 | XMS | Encounter Summary ---
Demographics + + + | Address | [address] | | | [place] [address] | + + + | Home Phone | | + + + | Preferred Language | Unknown | + + + | Marital Status | Legally | + + + | Zoroastrian Affiliation | 1041 | + + + | Race | Unknown | + + + | Ethnic Group | Unknown | + + + Author + + + | Author | [facility] | | | and [place] | + + + | Organization | [facility] | | [...] Team Providers + +------+ + | Care Lastex Operator Name | Role | Phone | [...] NEPHROLOGY [address] | MD [address] | | | | | [address] | [address] [place] | | | | | [place], [place] | [place] [address] | | | | | [address] | [phone] | | | | | [phone] | | | +--------+ + + + [...] | Visit | | MD [address] | | | | | | [address] [place] | | | | | | [place] [address] | | | | | | [phone] | | | | | | | [...]
--- OUTSIDE RECORDS SUMMARY | ~2019-04-07 | XMS | Encounter Summary ---
Demographics + + + | Address | [address] | | | [place] [address] | + + + | Home Phone | | + + + | Preferred Language | Unknown | + + + | Marital Status | Legally | + + + | Mosque Affiliation | 1041 | + + + | Race | Unknown | + + + | Ethnic Group | Unknown | + + + Author + + + | Author | [facility] | | | and [place] | + + + | Organization | [facility] | | | [...] Team Providers + +------+ + | Care Machine Stapler Name | Role | Phone | + +------+ + PCP | Unavailable | + +------+ + Encounter Details +--------+ + + + + | Date | Type | Department | Care Team | Description | +--------+ + + + + | 02/23/ | Abstract | [facility] [place] | Shea Pedraza W, | | | 2017 | | NEPHROLOGY [address] | [address] | | | | | [address] | [address] [place] | | | | | [place], [place] | [place] [address] | | | | | [address] | [phone] | | | | | [phone] | | | +--------+ + + + [...] [place] | | | | | | [place] [address] | | | | | | [phone] | | | | | | | | +--------+---------+ + + + documented as of this encounter Procedures + +--------+ + + + | Procedure Name | Priori | Date/Time | Associated Diagnosis | Comments | | | ty | | | | + +--------+ + + + | EXTERNAL LAB: BUN | Routin | 02/22/2018 | | Results for this | | | e | | | procedure are in the | | | | | | results section. | + +--------+ + + + | EXTERNAL LAB: | Routin | 02/22/2018 | | Results for this | | GLUCOSE | e | | | procedure are in the | | | | | | results section. | + +--------+ + + + | EXTERNAL LAB: | Routin | 02/22/2018 | | Results for this | | ALBUMIN | e | | | procedure are in the | | | | | | results section. | + +--------+ + + + | EXTERNAL LAB: | Routin | 02/22/2018 | | Results for this | | PHOSPHORUS | e | | | procedure are in the | | | | | | results section. | + +--------+ + + + | EXTERNAL LAB: | Routin | 02/22/2018 | | Results for this | | CALCIUM | e | | | procedure are in the | | | | | | results section. | + +--------+ + + + | EXTERNAL LAB: CARBON | Routin | 02/22/2018 | | Results for this | | DIOXIDE | e | | | procedure are in the | | | | | | results section. | + +--------+ + + + | EXTERNAL LAB: | Routin | 02/22/2018 | | Results for this | | CHLORIDE | e | | | procedure are in the | | | | | | results section. | + +--------+ + + + | EXTERNAL LAB: | Routin | 02/22/2018 | | Results for this | | POTASSIUM | e | | | procedure are in the | | | | | | results section. | + +--------+ + + + | EXTERNAL LAB: SODIUM | Routin | 02/22/2018 | | Results for this | | | e | | | procedure are in the | | | | | | results section. | + +--------+ + + + | EXTERNAL LAB: | Routin | 02/22/2018 | | Results for this | | VITAMIN D, | e | | | procedure are in the | | 25-HYDROXY | | | | results section. | + +--------+ + + + | EXTERNAL LAB: | Routin | 02/22/2018 | | Results for this | | URINALYSIS | e | | | procedure are in the | | | | | | results section. | + +--------+ + + + | EXTERNAL LAB: PTH, | Routin | 02/22/2018 | | Results for this | | INTACT | e | | | procedure are in the | | | | | | results section. | + +--------+ + + + | EXTERNAL LAB: | Routin | 02/22/2018 | | Results for this | | PROTEIN/CREATININE | e | | | procedure are in the | | RATIO | | | | results section. | + +--------+ + + + | EXTERNAL LAB: CBC | Routin | 02/22/2018 | | Results for this | | | e | | | procedure are in the | | | | | | results section. | + +--------+ + + + | EXTERNAL LAB: EGFR | Routin | 02/22/2018 | | Results for this | | | e | | | procedure are in the | | | | | | results section. | + +--------+ + + + | EXTERNAL LAB: | Routin | 02/22/2018 | | Results for this | | CREATININE | e | | | procedure are in the | | | | | | results section. | + +--------+ + + + | URINALYSIS WITH | Routin | 02/22/2018 | | Results for this | | MICROSCOPIC | e | | | procedure are in the | | | | | | results section. | + +--------+ + + + documented in this encounter Results External Lab: PTH, Intact (02/22/2018) + +-------+ + + + | Component | Value | Ref Range | Performed | Pathologist | | | | | At | Signature | + +-------+ + + + | PTH Intact, | 75.6 | | | | | External | | | | | + +-------+ + + + + + | Specimen | + + | | + + External Lab: Vitamin D, 25-Hydroxy (02/22/2018) + + + + + + | Component | Value | Ref Range | Performed | Pathologist | | | | | At | Signature | + + + + + + | Vitamin D, | 4Comment: <4 ng/mL | | | | | 25-Hydroxy, | | | | | | External | | | | | + + + + + + + + | Specimen | + + | Blood | + + Urinalysis With Microscopic (02/22/2018) + + + + + + | Component | Value | Ref Range | Performed | Pathologist | | | | | At | Signature | + + + + + + | WBC UA | 0 | /HPF | | | + + + + + + | Clarity | Clear | | | | + + + + + + | Color | Yellow | Light Yellow, | | | | | | Yellow | | | + + + + + + | BACTERIA UA | Negative | Negative /HPF | | | + + + + + + | SQUAMOUS | 0 | /HPF | | | | EPITHELIAL | | | | | | UA | | | | | + + + + + + | Nitrite, | Negative | Negative | | | | Urine | | | | | + + + + + + + + | Specimen | + + | Urine | + + External Lab: Protein/Creatinine Ratio (02/22/2018) + + + + + + | Component | Value | Ref Range | Performed | Pathologist | | | | | At | Signature | + + + + + + | Protein/Cre | 8.057 (A) | 0.2 | | | | atinine | | | | | | Ratio, | | | | | | External | | | | | + + + + + + + + | Specimen | + + | | + + External Lab: BUN (02/22/2018) + +-------+ + + + | Component | Value | Ref Range | Performed | Pathologist | | | | | At | Signature | + +-------+ + + + | BUN, | 13 | | | | | External | | | | | + +-------+ + + + External Lab: Glucose (02/22/2018) + +-------+ + + + | Component | Value | Ref Range | Performed | Pathologist | | | | | At | Signature | + +-------+ + + + | Glucose, | 200 | | | | | External | | | | | + +-------+ + + + External Lab: Albumin (02/22/2018) + +-------+ + + + | Component | Value | Ref Range | Performed | Pathologist | | | | | At | Signature | + +-------+ + + + | Albumin, | 3.2 | | | | | External | | | | | + +-------+ + + + External Lab: Phosphorus (02/22/2018) + +-------+ + + + | Component | Value | Ref Range | Performed | Pathologist | | | | | At | Signature | + +-------+ + + + | Phosphorus, | 2.9 | | | | | External | | | | | + +-------+ + + + External Lab: Calcium (02/22/2018) + +-------+ + + + | Component | Value | Ref Range | Performed | Pathologist | | | | | At | Signature | + +-------+ + + + | Calcium, | 8.1 | | | | | External | | | | | + +-------+ + + + External Lab: Carbon Dioxide (02/22/2018) + +-------+ + + + | Component | Value | Ref Range | Performed | Pathologist | | | | | At | Signature | + +-------+ + + + | Carbon | 25 | | | | | Dioxide, | | | | | | External | | | | | + +-------+ + + + External Lab: Chloride (02/22/2018) + +-------+ + + + | Component | Value | Ref Range | Performed | Pathologist | | | | | At | Signature | + +-------+ + + + | Chloride, | 108 | | | | | External | | | | | + +-------+ + + + External Lab: Potassium (02/22/2018) + +-------+ + + + | Component | Value | Ref Range | Performed | Pathologist | | | | | At | Signature | + +-------+ + + + | Potassium, | 3.9 | | | | | External | | | | | + +-------+ + + + External Lab: Sodium (02/22/2018) + +-------+ + + + | Component | Value | Ref Range | Performed | Pathologist | | | | | At | Signature | + +-------+ + + + | Sodium, | 143 | | | | | External | | | | | + +-------+ + + + External Lab: Urinalysis (02/22/2018) + + + + + + | Component | Value | Ref Range | Performed | Pathologist | | | | | At | Signature | + + + + + + | UA Blood, | 50 | | | | | External | | | | | + + + + + + | UA Glucose, | 100 | | | | | External | | | | | + + + + + + | UA Ketones, | negative | | | | | External | | | | | + + + + + + | UA Ph, | 6.0 | | | | | External | | | | | + + + + + + | UA | 500 | | | | | Proteins, | | | | | | External | | | | | + + + + + + | UA RBC, | 3 | | | | | External | | | | | + + + + + + | UA Specific | 1.017 | | | | | [place], | | | | | | External | | | | | + + + + + + | UA | negative | | | | | Leukocyte | | | | | | Esterase, | | | | | | External | | | | | + + + + + + External Lab: eGFR (02/22/2018) + +-------+ + + + | Component | Value | Ref Range | Performed | Pathologist | | | | | At | Signature | + +-------+ + + + | eGFR, | >60 | | | | | External | | | | | + +-------+ + + + + + | Specimen | + + | Blood | + + External Lab: Creatinine (02/22/2018) + +-------+ + + + | Component | Value | Ref Range | Performed | Pathologist | | | | | At | Signature | + +-------+ + + + | Creatinine, | 1.2 | | | | | External | | | | | + +-------+ + + + + + | Specimen | + + | Blood | + + External Lab: CBC (02/22/2018) + +-------+ + + + | Component | Value | Ref Range | Performed | Pathologist | | | | | At | Signature | + +-------+ + + + | WBC, | 6.77 | | | | | External | | | | | + +-------+ + + + | HGB, | 14.66 | | | | | External | | | | | + +-------+ + + + | HCT, | 42.24 | | | | | External | | | | | + +-------+ + + + | PLT, | 272 | | | | | External | | | | | + +-------+ + + + | RBC, | 4.49 | | | | | External | | | | | + +-------+ + + + | MCV, | 94 | | | | | External | | | | | + +-------+ + + + | RDW, | 12.67 | | | | | External | | | | | + +-------+ + + + documented in this encounter Visit Diagnoses Not on filedocumented in this encounter"
--- OUTSIDE RECORDS SUMMARY | ~2019-04-07 | XMS | Encounter Summary ---
Demographics + + + | Address | [address] | | | [place] [address] | + + + | Home Phone | | + + + | Preferred Language | Unknown | + + + | Marital Status | Legally | + + + | Jewish Affiliation | 1041 | + + + | Race | Unknown | + + + | Ethnic Group | Unknown | + + + Author + + + | Author | [facility] | | | and [place] | + + + | Organization | [facility] | | | [...] Team Providers + +------+ + | Care Securities Sales Associate Name | Role | Phone | + +------+ + | Janusz Davis MD | PCP | | + +------+ + Reason for Visit +---------+ + | Reason | Comments | +---------+ + | No Show | | +---------+ + Encounter Details +--------+ + + + + | Date | Type | Department | Care Team | Description | +--------+ + + + + | 03/13/ | Telephone | [facility] | Damaris Onealanish Juarez, | No Show | | 2018 | | CARDIOTHORACIC | RN | | | | | SURGERY [address] | | | | | | [address] | | | | | | [place] | | | | | | [address] | | | | | | [phone] | | | +--------+ + + + [...] | | | | | [place] [address] | | | | | | [phone] | | | | | | | | +--------+---------+ + + + documented as of this encounter Visit Diagnoses Not on filedocumented in this encounter"
--- OUTSIDE RECORDS SUMMARY | ~2019-04-07 | XMS | Encounter Summary ---
Demographics + + + | Address | [address] | | | [place] [address] | + + + | Home Phone | | + + + | Preferred Language | Unknown | + + + | Marital Status | Legally | + + + | Confucianism Affiliation | 1041 | + + + | Race | Unknown | + + + | Ethnic Group | Unknown | + + + Author + + + | Author | [facility] | | | and [place] | + + + | Organization | [facility] | | | and [...] Team Providers + +------+ + | Care Sales Compensation Analyst Name | Role | Phone | + +------+ + PCP | Unavailable | + +------+ + Encounter Details +--------+ + + + + | Date | Type | Department | Care Team | Description | +--------+ + + + + | 07/04/ | Abstract | [facility] [place] | Shea Pedraza W, | | | 2018 | | NEPHROLOGY [address] | [address] | | | | | [address] | [address] [place] | | | | | [place], [place] | [place] [address] | | | | | [address] | [phone] | | | | | [phone] | | | +--------+ + + + [...] [place] | | | | | | [place] [address] | | | | | | [phone] | | | | | | | | +--------+---------+ + + + documented as of this encounter Procedures + +--------+ + + + | Procedure Name | Priori | Date/Time | Associated Diagnosis | Comments | | | ty | | | | + +--------+ + + + | EXTERNAL LAB: BUN | Routin | 07/03/2018 | | Results for this | | | e | | | procedure are in the | | | | | | results section. | + +--------+ + + + | EXTERNAL LAB: | Routin | 07/03/2018 | | Results for this | | GLUCOSE | e | | | procedure are in the | | | | | | results section. | + +--------+ + + + | EXTERNAL LAB: | Routin | 07/03/2018 | | Results for this | | ALBUMIN | e | | | procedure are in the | | | | | | results section. | + +--------+ + + + | EXTERNAL LAB: | Routin | 07/03/2018 | | Results for this | | PHOSPHORUS | e | | | procedure are in the | | | | | | results section. | + +--------+ + + + | EXTERNAL LAB: | Routin | 07/03/2018 | | Results for this | | CALCIUM | e | | | procedure are in the | | | | | | results section. | + +--------+ + + + | EXTERNAL LAB: CARBON | Routin | 07/03/2018 | | Results for this | | DIOXIDE | e | | | procedure are in the | | | | | | results section. | + +--------+ + + + | EXTERNAL LAB: | Routin | 07/03/2018 | | Results for this | | CHLORIDE | e | | | procedure are in the | | | | | | results section. | + +--------+ + + + | EXTERNAL LAB: | Routin | 07/03/2018 | | Results for this | | POTASSIUM | e | | | procedure are in the | | | | | | results section. | + +--------+ + + + | EXTERNAL LAB: SODIUM | Routin | 07/03/2018 | | Results for this | | | e | | | procedure are in the | | | | | | results section. | + +--------+ + + + | EXTERNAL LAB: | Routin | 07/03/2018 | | Results for this | | VITAMIN D, | e | | | procedure are in the | | 25-HYDROXY | | | | results section. | + +--------+ + + + | EXTERNAL LAB: | Routin | 07/03/2018 | | Results for this | | URINALYSIS | e | | | procedure are in the | | | | | | results section. | + +--------+ + + + | EXTERNAL LAB: | Routin | 07/03/2018 | | Results for this | | PROTEIN/CREATININE | e | | | procedure are in the | | RATIO | | | | results section. | + +--------+ + + + | EXTERNAL LAB: CBC | Routin | 07/03/2018 | | Results for this | | | e | | | procedure are in the | | | | | | results section. | + +--------+ + + + | EXTERNAL LAB: EGFR | Routin | 07/03/2018 | | Results for this | | | e | | | procedure are in the | | | | | | results section. | + +--------+ + + + | EXTERNAL LAB: | Routin | 07/03/2018 | | Results for this | | CREATININE | e | | | procedure are in the | | | | | | results section. | + +--------+ + + + | HEMOGLOBIN A1C | Routin | 07/03/2018 | | Results for this | | | e | | | procedure are in the | | | | | | results section. | + +--------+ + + + documented in this encounter Results Hemoglobin A1C (07/03/2018) + +-------+ + + + | Component | Value | Ref Range | Performed | Pathologist | | | | | At | Signature | + +-------+ + + + | Hemoglobin | 7.3 | % | | | | A1c | | | | | + +-------+ + + + + + | Specimen | + + | Blood | + + External Lab: BUN (07/03/2018) + +-------+ + + + | Component | Value | Ref Range | Performed | Pathologist | | | | | At | Signature | + +-------+ + + + | BUN, | 12 | | | | | External | | | | | + +-------+ + + + External Lab: Glucose (07/03/2018) + +-------+ + + + | Component | Value | Ref Range | Performed | Pathologist | | | | | At | Signature | + +-------+ + + + | Glucose, | 115 | | | | | External | | | | | + +-------+ + + + External Lab: Albumin (07/03/2018) + +-------+ + + + | Component | Value | Ref Range | Performed | Pathologist | | | | | At | Signature | + +-------+ + + + | Albumin, | 3.5 | | | | | External | | | | | + +-------+ + + + External Lab: Phosphorus (07/03/2018) + +-------+ + + + | Component | Value | Ref Range | Performed | Pathologist | | | | | At | Signature | + +-------+ + + + | Phosphorus, | 3.1 | | | | | External | | | | | + +-------+ + + + External Lab: Calcium (07/03/2018) + +-------+ + + + | Component | Value | Ref Range | Performed | Pathologist | | | | | At | Signature | + +-------+ + + + | Calcium, | 8.7 | | | | | External | | | | | + +-------+ + + + External Lab: Carbon Dioxide (07/03/2018) + +-------+ + + + | Component | Value | Ref Range | Performed | Pathologist | | | | | At | Signature | + +-------+ + + + | Carbon | 25 | | | | | Dioxide, | | | | | | External | | | | | + +-------+ + + + External Lab: Chloride (07/03/2018) + +-------+ + + + | Component | Value | Ref Range | Performed | Pathologist | | | | | At | Signature | + +-------+ + + + | Chloride, | 107 | | | | | External | | | | | + +-------+ + + + External Lab: Potassium (07/03/2018) + +-------+ + + + | Component | Value | Ref Range | Performed | Pathologist | | | | | At | Signature | + +-------+ + + + | Potassium, | 3.7 | | | | | External | | | | | + +-------+ + + + External Lab: Sodium (07/03/2018) + +-------+ + + + | Component | Value | Ref Range | Performed | Pathologist | | | | | At | Signature | + +-------+ + + + | Sodium, | 143 | | | | | External | | | | | + +-------+ + + + External Lab: Vitamin D, 25-Hydroxy (07/03/2018) + + + + + + | Component | Value | Ref Range | Performed | Pathologist | | | | | At | Signature | + + + + + + | Vitamin D, | 4Comment: <4.0 ng/mL | | | | | 25-Hydroxy, | | | | | | External | | | | | + + + + + + + + | Specimen | + + | Blood | + + External Lab: Urinalysis (07/03/2018) + + + + + + | Component | Value | Ref Range | Performed | Pathologist | | | | | At | Signature | + + + + + + | UA Blood, | 50 | | | | | External | | | | | + + + + + + | UA Glucose, | negative | | | | | [...] + + + | UA RBC, | 0 | | | | | External | | | | | + + + + + + | UA Specific | 1.021 | | | | | [place], | | | | | | External | | | | | + + + + + + | UA | negative | | | | | Leukocyte | | | | | | Esterase, | | | | | | External | | | | | + + + + + + External Lab: CBC (07/03/2018) + +-------+ + + + | Component | Value | Ref Range | Performed | Pathologist | | | | | At | Signature | + +-------+ + + + | WBC, | 8.18 | | | | | External | | | | | + +-------+ + + + | HGB, | 14.63 | | | | | External | | | | | + +-------+ + + + | HCT, | 41.83 | | | | | External | | | | | + +-------+ + + + | PLT, | 240 | | | | | External | | | | | + +-------+ + + + | RBC, | 4.47 | | | | | External | | | | | + +-------+ + + + | MCV, | 94 | | | | | External | | | | | + +-------+ + + + | RDW, | 14.26 | | | | | External | | | | | + +-------+ + + + External Lab: eGFR (07/03/2018) + +-------+ + + + | Component [...] Blood | + + External Lab: Creatinine (07/03/2018) + +-------+ + + + | Component | Value | Ref Range | Performed | Pathologist | | | | | At | Signature | + +-------+ + + + | Creatinine, | 1.3 | | | | | External | | | | | + +-------+ + + + + + | Specimen | + + | Blood | + + External Lab: Protein/Creatinine Ratio (07/03/2018) + + + + + + | Component | Value | Ref Range | Performed | Pathologist | | | | | At | Signature | + + + + + + | Protein/Cre | 6.251 (A) | 0.2 | | | | atinine | | | | | | Ratio, | | | | | | External | | | | | + + + + + + + + | Specimen | + + | | + + documented in this encounter Visit Diagnoses Not on filedocumented in this encounter"
--- OUTSIDE RECORDS SUMMARY | ~2019-04-07 | XMS | Encounter Summary ---
Demographics + + + | Address | [address] | | | [place] [address] | + + + | Home Phone | | + + + | Preferred Language | Unknown | + + + | Marital Status | Legally | + + + | Scientologist Affiliation | 1041 | + + + | Race | Unknown | + + + | Ethnic Group | Unknown | + + + Author + + + | Author | [facility] | | | and [place] | + + + | Organization | [facility] | | | and [...] Team Providers + +------+ + | Care Pipe Welder Name | Role | Phone | + [...] | | | | kidney | PA-C [address] | MD [address] | | | | | injury) | [address] | [place] | | | | | ([facility]) | [address] | [address] [place] | | | | | Procedures | [address] | [place], [place] | | | | | [place] OFFICE | [facility] | [address] Phone: | | | | | OUTPATIENT | [place] | [phone] | | | | | VISIT 25 | [address] | Fax: | | | | | MINUTES | Phone: | [phone] | | | | | | [phone] | | | | | | | Fax: | | | | | | | [phone] | | +--------+--------+ + + + + Encounter Details +--------+---------+ + + + | Date | Type | Department | Care Team | Description | +--------+---------+ + + + | 11/14/ | Office | [facility] [place] | Shea Pedraza W, | CKD (chronic kidney | | 2019 | Visit | NEPHROLOGY [address] | MD [address] | disease) stage 3, | | | | [address] | [address] [place] | GFR 30-59 ml/min | | | | [place], [place] | [place] [address] | ([facility]) (Primary Dx); | | | | [address] | [phone] | Essential | | | | [phone] | | hypertension with | | | | | | goal blood pressure | | | | | | less than 130/85; | | | | | | Diarrhea, | | | | | | unspecified type; | | | | | | Type 2 diabetes | | | | | | mellitus with stage | | | | | | 3 chronic kidney | | | | | | disease, with | | | | | | long-term current | | | | | | use of insulin ([facility]) | +--------+---------+ + + + Social History [...] + + + | Blood Pressure | 172/100 | 11/14/2018 4:24 PM | | | | | PDT | | + + + + + | Pulse | 87 | 11/14/2018 4:24 PM | | | | | PDT | | + + + + + | Temperature | - | - | | + + + + + | Respiratory Rate | - | - | | + + + + + | Oxygen Saturation | 98% | 11/14/2018 4:24 PM | | | | | PDT | | + + + + + | Inhaled Oxygen | - | - | | | Concentration | | | | + + + + + | Weight | 92.3 kg (203 lb 7.8 | 11/14/2018 4:24 PM | | | | oz) | PDT | | + + + + + | Height | - | - | | + + + + + | Body Mass Index | 28.38 | 08/08/2018 9:28 AM | | | | | PDT | | + + + + + documented in this encounter Patient Instructions Patient Instructions Shea Pedraza MD - 11/14/2018 4:30 PM PDTTo-do 1. Increase Furosemide to 40 mg (full tablet) once a day. 2. Decrease Januvia to 50 mg once a day. documented in this encounter Progress Notes Shea Pedraza MD - 11/14/2018 4:30 PM PDTFormatting of this note might be different f rom the original. Nephrology Follow-up Visit Visit date: 11/14/2018 Primary care provider: Yue Mcguire PA-C Chief Complaint Patient presents with Chronic Kidney Disease, Stage III HPI: Joselito Robertson is a 53 y.o. male with type 2 DM, hypertension, proteinuric chronic kidn ey disease. Pt reports his main issue is chronic diarrhea. Pt states he was evaluated by Dr. Garcia (GI ) in [place]. Pt believes his diarrhea is mostly related to his Januvia (pt stated this l ast visit as well). Pt reports he is more edematous since decreasing Lasix to 20 mg daily. Pt is willing to in crease it back to 40 mg daily. Pt reports his home BP readings have been averaging 140/80. Pt has been taking Aleve 2T/dose about twice a week for leg pain after work. ROS: A 6-system review was performed, and was negative or noncontributory other than as sta gustavo above. 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) 10/13/2017 Note Last Updated: 10/13/2017 Bilateral feet uncontrolled Ischemic heart disease 10/13/2017 Anticoagulated 09/15/2017 Psoriasis 09/15/2017 Diarrhea 03/23/2017 Encounter for screening for malignant neoplasm of colon 03/23/2017 Essential hypertension with goal blood pressure less than 130/85 08/12/2016 Diabetic peripheral neuropathy (HCC) 08/12/2014 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 furosemide (LASIX) 40 mg tablet Take 1 tablet by mouth Daily. 30 tablet 11 [DISCONTINUED] furosemide (LASIX) 40 mg tablet Take 0.5 tablets by mouth Daily. 45 tabl et 3 insulin aspart (NOVOLOG) 100 units/mL injection Inject under the skin 3 times daily (b efore meals). Per sliding scale insulin glargine (LANTUS) 100 units/mL injection (vial) Inject 20 Units under the skin nightly. lisinopril (PRINIVIL, ZESTRIL) 20 mg tablet Take 40 mg by mouth Daily. metoprolol succinate (TOPROL-XL) 100 mg ER tablet Take 100 mg by mouth Daily. nitroglycerin (NITROSTAT) 0.[address] 0.4 mg under the tongue as needed for Chest pain. rivaroxaban (XARELTO) 20 mg tablet Take 1 tablet by mouth Daily (with dinner). rosuvastatin (CRESTOR) 20 mg tablet Take 20 mg by mouth nightly. [DISCONTINUED] SITagliptin (JANUVIA) 100 mg tablet Take 100 mg by mouth Daily. SITagliptin (JANUVIA) 50 MG tablet Take 1 tablet by mouth Daily. 30 tablet 11 Physical Exam: Vitals: 11/14/18 1624 BP: (!) 172/100 Pulse: 87 SpO2: 98% Weight: 92.3 kg (203 lb 7.8 oz) Body mass index is 28.38 kg/m. Constitutional: Appears well-developed and well-nourished. No distress. Cardiovascular: Normal rate, regular rhythm and normal heart sounds. 1+ pitting LE periphe ral edema. Lungs: Respiratory effort normal and breath sounds normal. No crackles or wheezes. Skin: Skin is warm. Neurological: Alert. Memory intact. Reviewed labs with patient. Abstract on 11/14/2018 Component Date Value Ref Range Status Protein/Creatinine Ratio, External 11/13/2018 4.724* 0.2 Final Abstract on 11/14/2018 Component Date Value Ref Range Status Creatinine, External 11/13/2018 1.8* 0.7 - 1.3 Final eGFR, External 11/13/2018 42 Final UA Blood, External 11/13/2018 few Final UA Glucose, External 11/13/2018 100 Final UA Ketones, External 11/13/2018 negative Final UA Ph, External 11/13/2018 5 Final UA Proteins, External 11/13/2018 500 Final UA RBC, External 11/13/2018 5 Final UA Specific [place], External 11/13/2018 1.024 Final UA Leukocyte Esterase, External 11/13/2018 negative Final Sodium, External 11/13/2018 141 135 - 145 Final Potassium, External 11/13/2018 4.1 3.5 - 5.3 Final Chloride, External 11/13/2018 110* 97 - 107 Final Carbon Dioxide, External 11/13/2018 22 22 - 29 Final Calcium, External 11/13/2018 8.6 8.5 - 10.2 Final Phosphorus, External 11/13/2018 4 2.5 - 5 Final Albumin, External 11/13/2018 3.5 3.5 - 5.2 Final Glucose, External 11/13/2018 167* 65 - 99 Final BUN, External 11/13/2018 29* 8 - 25 Final Color 11/13/2018 Yellow Light Yellow, Yellow Final Clarity 11/13/2018 Clear Final WBC UA 11/13/2018 2 /HPF Final Bacteria, UA 11/13/2018 few Final Protein/Creat Ratio 11/13/2018 4.72 Final ASSESSMENT AND PLAN: 1. 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 Advised pt to avoid NSAID. Substitute with acetaminophen 1000 mg BID as needed for pain. 2. Essential hypertension with goal blood pressure less than 130/85 Clinic BP remains elev ated. Pt's reported home BP readings are closer to goal. Pt is more edematous. -Recommend increasing Furosemide back to 40 mg daily. 3. Diarrhea, unspecified type Unclear etiology. Per pt, he was evaluated by GI. -For now, will reduce Januvia to 50 mg daily. Advised pt to f/u with primary care. 4. Type 2 diabetes mellitus with stage 3 chronic kidney disease, with long-term current use of insulin (HCC) On Januvia and insulin therapy. Return in 3 months: renal, ua, upcr. documented in this encounter Plan of Treatment +--------+---------+ + + + | Date | Type | Specialty | Care Team | Description | +--------+---------+ + + + | 06/19/ | Office | Nephrology | Shea Pedraza, | | 2019 | Visit | | MD [address]ony [address] | | | | | | [address] | | | | | | [place] [address] | | | | | | [phone] | | | | | | | | +--------+---------+ + + + documented as of this encounter Visit Diagnoses + + | Diagnosis | + + | CKD (chronic kidney disease) stage 3, GFR 30-59 ml/min (HCC) - Primary Chronic kidney | | disease, Stage III (moderate) | + + | Essential hypertension with goal blood pressure less than 130/85 | + + | Diarrhea, unspecified type | + + | Type 2 diabetes mellitus with stage 3 chronic kidney disease, with long-term current | | use of insulin ([facility]) | + + documented in this encounter"
--- OUTSIDE RECORDS SUMMARY | ~2019-04-07 | XMS | Encounter Summary ---
Demographics + + + | Address | [address] | | | [place] [address] | + + + | Home Phone | | + + + | Preferred Language | Unknown | + + + | Marital Status | Legally | + + + | Anabaptism Affiliation | 1041 | + + + | Race | Unknown | + + + | Ethnic Group | Unknown | + + + Author + + + | Author | [facility] | | | and [place] | + + + | Organization | [facility] | | | [...] Team Providers + +------+ + | Care Animal Sitter Name | Role | Phone | + [...] | NEPHROLOGY [address] | [address] | | | | | [address] | [address] [place] | | | | | [place], [place] | [place] [address] | | | | | [address] | [phone] | | | | | [phone] | | | +--------+ + + + [...] | | | | | [place] [address] | | | | | | [phone] | | | | | | | | +--------+---------+ + + + documented as of this encounter Procedures + +--------+ + + + | Procedure Name | Priori | Date/Time | Associated Diagnosis | Comments | | | ty | | | | + +--------+ + + + | EXTERNAL LAB: JUS | Routin | 11/13/2018 | | Results [...] | EXTERNAL LAB: CARBON | Routin | 11/13/2018 | | Results [...] | EXTERNAL LAB: SODIUM | Routin | 11/13/2018 | | Results [...] | EXTERNAL LAB: EGFR | Routin | 11/13/2018 | | Results [...] | + +--------+ + + + | PROTEIN/CREATININE | Routin | 11/13/2018 | | Results for this | | RATIO, URINE | e | | | procedure are in the | | | | | | results section. | + +--------+ + + + documented in this encounter Results Protein/Creatinine Ratio, Urine (11/13/2018) + +--------+ + + + | Component | Value | Ref Range | Performed | Pathologist | | | | | At | Signature | + +--------+ + + + | Color | Yellow | Light Yellow, | | | | | | Yellow | | | + +--------+ + + + | Clarity | Clear | | | | + +--------+ + + + | WBC UA | 2 | /HPF | | | + +--------+ + + + | Bacteria, | few | | | | | UA | | | | | + +--------+ + + + | Protein/Cre | 4.72 | | | | | at Ratio | | | | | + +--------+ + + + + + | Specimen | + + | Urine | + + External Lab: BUN (11/13/2018) + +--------+ + + + | Component [...] + +---------+ + + External Lab: Glucose (11/13/2018) + +---------+ + + + | Component | Value | Ref Range | Performed | Pathologist | | | | | At | Signature | + +---------+ + + + | Glucose, | 167 (A) | 65 - 99 | EXTERNAL | | | External | | | LAB | | + +---------+ + + + + +---------+ + + | Performing | Address | City/State/Zipcode | Phone Number | | Organization | | | | + +---------+ + + | EXTERNAL LAB | | | | + +---------+ + + External Lab: Albumin (11/13/2018) + +-------+ + + + | Component | Value | Ref Range | Performed | Pathologist | | | | | At | Signature | + +-------+ + + + | Albumin, | 3.5 | 3.5 - 5.2 | EXTERNAL | | | External | | | LAB | | + +-------+ + + + + +---------+ + + | Performing | Address | City/State/Zipcode | Phone Number | | Organization | | | | + +---------+ + + | EXTERNAL LAB | | | | + +---------+ + + External Lab: Phosphorus (11/13/2018) + +-------+ + + + | Component | Value | Ref Range | Performed | Pathologist | | | | | At | Signature | + +-------+ + + + | Phosphorus, | 4 | 2.5 - 5 | EXTERNAL | | | External | | | LAB | | + +-------+ + + + + +---------+ + + | Performing | Address | City/State/Zipcode | Phone Number | | Organization | | | | + +---------+ + + | EXTERNAL LAB | | | | + +---------+ + + External Lab: Calcium (11/13/2018) + +-------+ + + + | Component [...] +---------+ + + External Lab: Carbon Dioxide (11/13/2018) + +-------+ + + + | Component | Value | Ref Range | Performed | Pathologist | | | | | At | Signature | + +-------+ + + + | Carbon | 22 | 22 - 29 | EXTERNAL | [...] + +---------+ + + External Lab: Chloride (11/13/2018) + +---------+ + + + | Component | Value | Ref Range | Performed | Pathologist | | | | | At | Signature | + +---------+ + + + | Chloride, | 110 (A) | 97 - 107 | EXTERNAL | | | External | | | LAB | | + +---------+ + + + + +---------+ + + | Performing | Address | City/State/Zipcode | Phone Number | | Organization | | | | + +---------+ + + | EXTERNAL LAB | | | | + +---------+ + + External Lab: Potassium (11/13/2018) + +-------+ + + + | Component | Value | Ref Range | Performed | Pathologist | | | | | At | Signature | + +-------+ + + + | Potassium, | 4.1 | 3.5 - 5.3 | EXTERNAL | | | External | | | LAB | | + +-------+ + + + + +---------+ + + | Performing | Address | City/State/Zipcode | Phone Number | | Organization | | | | + +---------+ + + | EXTERNAL LAB | | | | + +---------+ + + External Lab: Sodium (11/13/2018) + +-------+ + + + | Component | Value | Ref Range | Performed | Pathologist | | | | | At | Signature | + +-------+ + + + | Sodium, | 141 | 135 - 145 | EXTERNAL | | | External | | | LAB | | + +-------+ + + + + +---------+ + + | Performing | Address | City/State/Zipcode | Phone Number | | Organization | | | | + +---------+ + + | EXTERNAL LAB | | | | + +---------+ + + External Lab: Urinalysis (11/13/2018) + + + + + + | Component | Value | Ref Range | Performed | Pathologist | | | | | At | Signature | + + + + + + | UA Blood, | few | | EXTERNAL | | | External | | | LAB | | + + + + + + | UA Glucose, | 100 | | EXTERNAL | | | External | | | LAB | | + + + + + + | UA Ketones, | negative | | EXTERNAL | | | External | | | LAB | | + + + + + + | UA Ph, | 5 | | EXTERNAL | | | External | | | LAB | | + + + + + + | UA | 500 | | EXTERNAL | | | Proteins, | | | LAB | | | External | | | | | + + + + + + | UA RBC, | 5 | | EXTERNAL | | | External | | | LAB | | + + + + + + | UA Specific | 1.024 | | EXTERNAL | | | [place], | | | LAB | | | External | | | | | + + + + + + | UA | negative | | EXTERNAL | | | Leukocyte | | | LAB | | | Esterase, | | | | | | External | | | | | + + + + + + + +---------+ + + | Performing | Address | City/State/Zipcode | Phone Number | | Organization | | | | + +---------+ + + | EXTERNAL LAB | | | | + +---------+ + + External Lab: eGFR (11/13/2018) + +-------+ + + + | Component | Value | Ref Range | Performed | Pathologist | | | | | At | Signature | + +-------+ + + + | eGFR, | 42 | | EXTERNAL | | | External [...] + +---------+ + + External Lab: Creatinine (11/13/2018) + +---------+ + + + | Component | Value | Ref Range | Performed | Pathologist | | | | | At | Signature | + +---------+ + + + | Creatinine, | 1.8 (A) | 0.7 - 1.3 | EXTERNAL [...]
--- OUTSIDE RECORDS SUMMARY | ~2019-04-07 | XMS | Encounter Summary ---
Demographics + + + | Address | [address] | | | [place] [address] | + + + | Home Phone | | + + + | Preferred Language | Unknown | + + + | Marital Status | Legally | + + + | Rastafarian Affiliation | 1041 | + + + [...] Team Providers + +------+ + | Care Discovery Manager Name | Role | Phone | + +------+ + PCP | Unavailable | + +------+ + Encounter Details +--------+ + + + + | Date | Type | Department | Care Team | Description | +--------+ + + + + | 08/21/ | Orders Only | [facility] [place] | Shea Pedraza W, | CKD (chronic kidney | | 2019 | | NEPHROLOGY [address] | MD [address] [place] | disease) stage 3, | | | | [address] | [address] [place] | GFR 30-59 ml/min | | | | [place], [place] | [place] [address] | ([facility]) (Primary Dx) | | | | [address] | [phone] | | | | | [phone] | | | +--------+ + + + [...] + + documented as of this encounter Progress Yvonne Davis RN - 08/21/2018 9:26 AM PDTLabs expected this week sent to [facility] documented in this e ncounter Plan of Treatment +--------+---------+ + + + | Date | Type | Specialty | Care Team | Description | +--------+---------+ + + + | 06/19/ | Office | Nephrology | PedrazaShea patel, | | | 2019 | Visit | | [address] | | | | | | [address] [place] | | | | | | [place] [address] | | | | | | [phone] | | | | | | | | +--------+---------+ + + + documented as of this encounter Visit Diagnoses + + | Diagnosis | + + | CKD (chronic kidney disease) stage 3, GFR 30-59 ml/min ([facility]) - Primary Chronic kidney | | disease, Stage III (moderate) | + + documented in this encounter"
--- OUTSIDE RECORDS SUMMARY | ~2019-04-07 | XMS | Encounter Summary ---
Demographics + + + | Address | [address] | | | [place] [address] | + + + | Home Phone | | + + + | Preferred Language | Unknown | + + + | Marital Status | Legally | + + + | Yazidism Affiliation | 1041 | + + + | Race | Unknown | + + + | Ethnic Group | Unknown | + + + Author + + + | Author | [facility] | | | and [place] | + + + | Organization | [facility] | | [...] Team Providers + +------+ + | Care End Polisher Name | Role | Phone | + +------+ + PCP | Unavailable | + +------+ + Encounter Details +--------+ + + + + | Date | Type | Department | Care Team | Description | +--------+ + + + + | 09/14/ | Hospital | [facility] | Conversion | Diagnosis unknown | | 2018 | Encounter | [address] | Transaction, | | | | | [address] | Provider Unknown | | | | | [place], [place] | [phone] | | | | | [address] | | | | | | [phone] | | | +--------+ + + + [...] | | | | | | [place] [address] | | | | | | [phone] | | | | | | | | +--------+---------+ + + + documented as of this encounter Procedures + +--------+ + + + | Procedure Name | Priori | Date/Time | Associated Diagnosis | Comments | | | ty | | | | + +--------+ + + + | XR CHEST 2 VIEWS | Routin | 09/11/2017 | | Results for this | | | e | 3:47 PM | | procedure are in the | | | | PDT | | results section. | + +--------+ + + + documented in this encounter Results XR Chest 2 Vws (09/11/2017 3:47 PM PDT) + + | Specimen | + + | | + + + + + | Narrative | Performed At | + + + | This is a non-reportable procedure without a radiologist report and | | | is used for image storage only | | + + + + + | Procedure Note | + + | Hung Pagan - 12/06/2018 4:36 AM PDT This is a non-reportable procedure | | without a radiologist report and isused for image storage only | + + documented in this encounter Visit Diagnoses + + | Diagnosis | + + | Diagnosis unknown Other unknown and unspecified cause of morbidity or mortality | + + documented in this encounter"
--- OUTSIDE RECORDS SUMMARY | ~2019-04-07 | XMS | Encounter Summary ---
Demographics + + + | Address | [address] | | | [place] [address] | + + + | Home Phone | | + + + | Preferred Language | Unknown | + + + | Marital Status | Legally | + + + | Jain Affiliation | 1041 | + + + | Race | Unknown | + + + | Ethnic Group | Unknown | + + + Author + + + | Author | [facility] | | | and [place] | + + + | Organization | [facility] | | | [...] Team Providers + +------+ + | Care Passenger Screener Name | Role | Phone | + +------+ + | Janusz Davis MD | PCP | | + +------+ + Encounter Details +--------+ + + + + | Date | Type | Department | Care Team | Description | +--------+ + + + + | 03/14/ | Abstract | [facility] | Shea Pedraza W, | | | 2018 | | NEPHROLOGY [address] | MD [address] | | | | | [address] | [address] [place] | | | | | [place], [place] | [place] [address] | | | | | [address] | [phone] | | | | | [phone] | | | +--------+ + + + [...] | Visit | | MD [address] | | | | | | [address] [place] | | | | | | [place] [address] | | | | | | [phone] | | | | | | | | +--------+---------+ + + + documented as of this encounter Procedures + +--------+ + + + | Procedure Name | Priori | Date/Time | Associated Diagnosis | Comments | | | ty | | | | + +--------+ + + + | EXTERNAL LAB: JUS | Routin | 03/13/2019 | | Results [...] | EXTERNAL LAB: CARBON | Routin | 03/13/2019 | | Results [...] | EXTERNAL LAB: SODIUM | Routin | 03/13/2019 | | Results [...] | EXTERNAL LAB: CBC | Routin | 03/13/2019 | | Results for this | | | e | | | procedure are in the | | | | | | results section. | + +--------+ + + + | EXTERNAL LAB: EGFR | Routin | 03/13/2019 | | Results [...] | + +--------+ + + + | URINALYSIS, | Routin | 03/13/2019 | | Results for this | | MICROSCOPIC ONLY | e | | | procedure are in the | | | | | | results section. | + +--------+ + + + documented in this encounter Results Urinalysis, Microscopic Only (03/13/2019) + + + + + + | Component | Value | Ref Range | Performed | Pathologist | | | | | At | Signature | + + + + + + | WBC UA | 4 | /HPF | | | + + + + + + | Color | Dark Yellow (A) | Light Yellow, | | | | | | Yellow | | | + + + + + + | Clarity | Clear | | | | + + + + + + | Bacteria, | negative | | | | | UA | | | | | + + + + + + | SQUAMOUS | 1 | /HPF | | | | EPITHELIAL | | | | | | UA | | | | | + + + + + + | Nitrite, | Negative | Negative | | | | Urine | | | | | + + + + + + + + | Specimen | + + | Urine | + + External Lab: JUS (03/13/2019) + +-------+ + + + | Component | Value | Ref Range | Performed | Pathologist | | | | | At | Signature | + +-------+ + + + | BUN, | 35 | | EXTERNAL | | | External | | | LAB | | + +-------+ + + + + +---------+ + + | Performing | Address | City/State/Zipcode | Phone Number | | Organization | | | | + +---------+ + + | EXTERNAL LAB | | | | + +---------+ + + External Lab: Glucose (03/13/2019) + +-------+ + + + | Component | Value | Ref Range | Performed | Pathologist | | | | | At | Signature | + +-------+ + + + | Glucose, | 125 | | EXTERNAL | | | External | | | LAB | | + +-------+ + + + + +---------+ + + | Performing | Address | City/State/Zipcode | Phone Number | | Organization | | | | + +---------+ + + | EXTERNAL LAB | | | | + +---------+ + + External Lab: Albumin (03/13/2019) + +-------+ + + + | Component | Value | Ref Range | Performed | Pathologist | | | | | At | Signature | + +-------+ + + + | Albumin, | 3.2 | | EXTERNAL | | | External | | | LAB | | + +-------+ + + + + +---------+ + + | Performing | Address | City/State/Zipcode | Phone Number | | Organization | | | | + +---------+ + + | EXTERNAL LAB | | | | + +---------+ + + External Lab: Phosphorus (03/13/2019) + +-------+ + + + | Component | Value | Ref Range | Performed | Pathologist | | | | | At | Signature | + +-------+ + + + | Phosphorus, | 5.4 | | EXTERNAL | | | External | | | LAB | | + +-------+ + + + + +---------+ + + | Performing | Address | City/State/Zipcode | Phone Number | | Organization | | | | + +---------+ + + | EXTERNAL LAB | | | | + +---------+ + + External Lab: Calcium (03/13/2019) + +-------+ + + + | Component | Value | Ref Range | Performed | Pathologist | | | | | At | Signature | + +-------+ + + + | Calcium, | 8.7 | | EXTERNAL | | | External | | | LAB | | + +-------+ + + + + +---------+ + + | Performing | Address | City/State/Zipcode | Phone Number | | Organization | | | | + +---------+ + + | EXTERNAL LAB | | | | + +---------+ + + External Lab: Carbon Dioxide (03/13/2019) + +-------+ + + + | Component | Value | Ref Range | Performed | Pathologist | | | | | At | Signature | + +-------+ + + + | Carbon | 19 | | EXTERNAL | | | Dioxide, | | | LAB | | | External | | | | | + +-------+ + + + + +---------+ + + | Performing | Address | City/State/Zipcode | Phone Number | | Organization | | | | + +---------+ + + | EXTERNAL LAB | | | | + +---------+ + + External Lab: Chloride (03/13/2019) + +-------+ + + + | Component | Value | Ref Range | Performed | Pathologist | | | | | At | Signature | + +-------+ + + + | Chloride, | 110 | | EXTERNAL | | | External | | | LAB | | + +-------+ + + + + +---------+ + + | Performing | Address | City/State/Zipcode | Phone Number | | Organization | | | | + +---------+ + + | EXTERNAL LAB | | | | + +---------+ + + External Lab: Potassium (03/13/2019) + +-------+ + + + | Component | Value | Ref Range | Performed | Pathologist | | | | | At | Signature | + +-------+ + + + | Potassium, | 4.5 | | EXTERNAL | | | External | | | LAB | | + +-------+ + + + + +---------+ + + | Performing | Address | City/State/Zipcode | Phone Number | | Organization | | | | + +---------+ + + | EXTERNAL LAB | | | | + +---------+ + + External Lab: Sodium (03/13/2019) + +-------+ + + + | Component | Value | Ref Range | Performed | Pathologist | | | | | At | Signature | + +-------+ + + + | Sodium, | 138 | | EXTERNAL | | | External | | | LAB | | + +-------+ + + + + +---------+ + + | Performing | Address | City/State/Zipcode | Phone Number | | Organization | | | | + +---------+ + + | EXTERNAL LAB | | | | + +---------+ + + External Lab: Urinalysis (03/13/2019) + + + + + + | Component | Value | Ref Range | Performed | Pathologist | | | | | At | Signature | + + + + + + | UA Blood, | negative | | EXTERNAL | | | External | | | LAB | | + + + + + + | UA Glucose, | negative | | EXTERNAL | | | External | | | LAB | | + + + + + + | UA Ketones, | negative | | EXTERNAL | | | External | | | LAB | | + + + + + + | UA Ph, | 5.0 | | EXTERNAL | | | External | | | LAB | | + + + + + + | UA | 100 | | EXTERNAL | | | Proteins, | | | LAB | | | External | | | | | + + + + + + | UA RBC, | 0 | | EXTERNAL | | | External | | | LAB | | + + + + + + | UA Specific | 1.012 | | EXTERNAL | | | [place], | | | LAB | | | [...] | + +---------+ + + External Lab: CBC (03/13/2019) + +-------+ + + + | Component | Value | Ref Range | Performed | Pathologist | | | | | At | Signature | + +-------+ + + + | WBC, | 8.56 | | EXTERNAL | | | External | | | LAB | | + +-------+ + + + | HGB, | 10.61 | | EXTERNAL | | | External | | | LAB | | + +-------+ + + + | HCT, | 31 | | EXTERNAL | | | External | | | LAB | | + +-------+ + + + | PLT, | 270 | | EXTERNAL | | | External | | | LAB | | + +-------+ + + + | RBC, | 3.31 | | EXTERNAL | | | External | | | LAB | | + +-------+ + + + | MCV, | 94 | | EXTERNAL | | | External | | | LAB | | + +-------+ + + + | RDW, | 13.18 | | EXTERNAL | | | External | | | LAB | | + +-------+ + + + + +---------+ + + | Performing | Address | City/State/Zipcode | Phone Number | | Organization | | | | + +---------+ + + | EXTERNAL LAB | | | | + +---------+ + + External Lab: eGFR (03/13/2019) + +-------+ + + + | Component | Value | Ref Range | Performed | Pathologist | | | | | At | Signature | + +-------+ + + + | eGFR, | 37 | | EXTERNAL | | | External [...] + +---------+ + + External Lab: Creatinine (03/13/2019) + +-------+ + + + | Component | Value | Ref Range | Performed | Pathologist | | | | | At | Signature | + +-------+ + + + | Creatinine, | 2.0 | | EXTERNAL | | | External [...]
--- OUTSIDE RECORDS SUMMARY | ~2019-04-07 | XMS | Encounter Summary ---
Demographics + + + | Address | [address] | | | [place] [address] | + + + | Home Phone | | + + + | Preferred Language | Unknown | + + + | Marital Status | Legally | + + + | Worship Affiliation | [id number] | + + + | Race | Unknown | + + + | Ethnic Group | Unknown | + + + Author + + + | Author | [facility] | | | and [place] | + + + | Organization | [facility] | | | and [...] Team Providers + +------+ + | Care Blister Packaging Machine Operator Name | Role | Phone | + +------+ + PCP | Unavailable | + +------+ + Reason for Visit + + + | Reason | Comments | + + + | Chest Pain | | + + + Auth/Cert +--------+--------+ + + + + | Status | Reason | Specialty | Diagnoses / | Referred By | Referred To | | | | | Procedures | Contact | Contact | +--------+--------+ + + + + | | | | Diagnoses | | | | | | | Paroxysmal | | | | | | | atrial | | | | | | | fibrillation | | | | | | | (HCC) | | | | | | | Acute | | | | | | | coronary | | | | | | | syndrome | | | | | | | (HCC) CKD | | | | | | | (chronic | | | | | | | kidney | | | | | | | disease) | | | | | | | stage 4, GFR | | | | | | | 15-29 | | | | | | | ml/min (HCC) | | | | | | | NSTEMI | | | | | | | (non-ST | | | | | | | elevated | | | | | | | myocardial | | | | | | | infarction) | | | | | | | (HCC) | | | | | | | Atherosclero | | | | | | | sis of | | | | | | | coronary | | | | | | | artery, | | | | | | | angina | | | | | | | presence | | | | | | | unspecified, | | | | | | | unspecified | | | | | | | vessel or | | | | | | | lesion type, | | | | | | | unspecified | | | | | | | whether | | | | | | | hoh or | | | | | | | transplanted | | | | | | | heart Type | | | | | | | 2 diabetes | | | | | | | mellitus | | | | | | | with stage 3 | | | | | | | chronic | | | | | | | kidney | | | | | | | disease, | | | | | | | with | | | | | | | long-term | | | | | | | current use | | | | | | | of insulin | | | | | | | (HCC) | | | | | | | Hyperlipidem | | | | | | | ia, | | | | | | | unspecified | | | | | | | hyperlipidem | | | | | | | ia type | | | | | | | Chest pain, | | | | | | | unspecified | | | | | | | type Acute | | | | | | | renal | | | | | | | failure with | | | | | | | other | | | | | | | specified | | | | | | | pathological | | | | | | | kidney | | | | | | | lesion | | | | | | | superimposed | | | | | | | on stage 3 | | | | | | | chronic | | | | | | | kidney | | | | | | | disease | | | | | | | (HCC) | | | | | | | | | | +--------+--------+ + + + + Encounter Details +--------+---------+ + + + | Date | Type | Department | Care Team | Description | +--------+---------+ + + + | 02/15/ | Surgery | [facility] | Liban Nair MD | CORONARY ARTERY | | 2019 | | [facility] | [address] | BYPASS GRAFT X4 WITH | | | | OPERATING ROOM [address] | [place] [address] [place], [place] | TAKEDOWN LEFT | | | | [address] | [phone] | INTERNAL MAMMARY | | | | [place], [place] | | ARTERY, EVH RIGHT | | | | [address] | | SAPHONUS VEIN | | | | [phone] | | | +--------+---------+ + + + [...] + + + | Blood Pressure | 106/62 | 02/28/2019 7:31 AM | | | | | PST | | + + + + + | Pulse | 75 | 02/28/2019 7:31 AM | | | | | PST | | + + + + + | Temperature | 36.6 C (97.9 F) | 02/28/2019 7:31 AM | | | | | PST | | + + + + + | Respiratory Rate | 17 | 02/28/2019 7:31 AM | | | | | PST | | + + + + + | Oxygen Saturation | 98% | 02/28/2019 7:31 AM | | | | | PST | | + + + + + | Inhaled Oxygen | - | - | | | Concentration | | | | + + + + + | Weight | 86.1 kg (189 lb 13.1 | 02/28/2019 5:45 AM | | | | oz) | PST | | + + + + + | Height | 180.3 cm (5' 11") | 02/11/2019 6:02 AM | | | | | PDT | | + + + + + | Body Mass Index | 26.47 | 02/11/2019 6:02 AM | | | [...] + + documented as of this encounter Discharge Summaries Calixto Najera PA - 02/28/2019 7:57 AM PSTFormatting of this note might be different fr om the original. Service: Cardiothoracic Surgery Discharge Summary Pt: Joselito Robertson AGE/SEX: 53 y.o. male ROOM: 9103/9103-01 : 1965 PCP: No Physician on file Date/Time:02/28/2019 7:57 Date of Admission: 02/11/2019 Date of Discharge: 02/28/2019 Hospital Day: LOS: 17 days Surgery/Procedure: 02/15/19, Dr Nair 1. Urgent coronary artery bypass grafting times 4; left internal mammary artery to left a nterior descending; saphenous vein graft to diagonal; saphenous vein graft to ramus intermed ius; saphenous vein graft to obtuse marginal. 2. Endoscopicvein harvesting. Post-Op Day: 13 Days Post-Op Discharge Provider: BELINDA Erickson Treatment Team: Trini Carbone MD; Reji Ferguson MD Discharge Diagnoses: Principal Problem: S/P CABG x 4 Active Problems: A-fib Coronary atherosclerosis DM (diabetes mellitus) CKD (chronic kidney disease) stage 3, GFR 30-59 ml/min NSTEMI (non-ST elevated myocardial infarction) Acute coronary syndrome Acute on chronic renal failure Ischemic cardiomyopathy Resolved Problems: Chest pain BRIEF HISTORY OF PRESENTATION: Joselito Robertson is a 53 y.o. male w/ significant past medical history of coronary a rtery disease with prior PCI and stenting, insulin-dependent diabetes mellitus, hypertension and chronic kidney disease, who was admitted with chest pain. He was diagnosed with a non- ST segment DC. He was evaluated by Dr. Canales and underwent cardiac catheterization in 01/24. The patient had severe 3-vessel coronary artery disease. HOSPITAL COURSE: The patient was taken to the operating room and underwent the above procedure(s) on 02/15. Operation was uneventful (please refer to operative note for details of the same). The patient tolerated the procedure well and was transferred to the ICU intubated and in stable condition, and was extubated per ICU protocol. He spent 3 nights in the ICU and on e patient was transferred to the cardiac unit, hemodynamically stable. He received electroly te replacement per protocol and continued to make good recovery, ambulating, tolerating card iac diet, and passing bowel movements. Chest tubes and pacing wires were removed without com plication, and the patient remained stable without supplemental oxygen. The patient was fit for discharge to [facility] ([facility]) on 02/28/19. Problems addressed during hospital stay: 1)Low EF with LV thrombus: On Xarelto [employer] for PAF (pt remained SR throughout hospitalizati on), however dt concern for bleeding was started on Coumadin instead. Goal INR 2-3. F/u with cardiology 2)CKD/ARF: Nephrology following patient closely throughout hospitalization. Cr increased h owever improved with hydration. Pt to f/u with his refining still operator outpatient. 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 08/12/2014 Vitamin D deficiency 10/13/2017 Past Surgical History: Procedure Laterality Date CARDIAC CATHERIZATION N/A 02/11/2019 Procedure: CV COR ANGIO; Surgeon: Juan Canales MD; Location: [facility] CV LAB CORONARY ARTERY BYPASS GRAFT N/A 02/15/2019 Procedure: CORONARY ARTERY BYPASS GRAFT X4 WITH TAKEDOWN LEFT INTERNAL MAMMARY ARTERY, EVH RIGHT SAPHONUS VEIN; Surgeon: Liban Nair MD; Location: [facility] MAIN OR Allergies Allergen Reactions Penicillins Anaphylaxis, Hives, Rash and Swelling Medications Prior to Admission Medication Sig Dispense Refill amLODIPine (NORVASC) 5 [...] tablet by mouth Daily. 30 tablet 11 insulin aspart (NOVOLOG) 100 units/mL injection Inject under the skin 3 times daily (b efore meals). Per sliding scale lisinopril (PRINIVIL, ZESTRIL) 20 mg tablet Take [...] 20 mg by mouth nightly. SITagliptin (JANUVIA) 50 MG tablet Take 1 tablet by mouth Daily. 30 tablet 11 DISCHARGE EXAM Vital Signs: BP 106/62 | Pulse 75 | Temp 36.6 C (97.9 F) (Oral) | Resp 17 | Ht 1.803 m (5' 11") | Wt 86.1 kg (189 lb 13.1 oz) | SpO2 98% | BMI 26.47 kg/m Temp: [36.4 C (97.6 F)-36.9 C (98.4 F)] 36.6 C (97.9 F) Pulse: [71-92] 75 Resp: [16-18] 17 BP: (106-150)/(61-75) 106/62 Current weight: Patient Vitals for the past 96 hrs: Weight 02/28/19 0545 86.1 kg (189 lb 13.1 oz) 02/27/19 0559 86.1 kg (189 lb 13.1 oz) 02/26/19 0540 86.5 kg (190 lb 11.2 oz) 02/25/19 0621 85.8 kg (189 lb 2.5 oz) Admission weight: Weight: 95.3 kg (210 lb) Physical Exam: General: Alert, oriented, in no acute distress,resting in chair Heart: RRR No murmur Lungs: CTA b/l Dim bases. Abdomen:Soft, nondistended, nontender Extremities: Well perfused, mild LE edema Musculoskeletal:no deformities or significant abnormalities Neurological: No gross focal motor or sensory deficits Skin:No rash or lesions. Mid-sternal incision dressing is C/D/I. Chest tube removed inc ision C/D/I. Pacing wires removed EVH incisions C/D/I. DATA Recent Results (from the past 24 hour(s)) POC Glucose Result Value Ref Range Glucose, POC 143 (H) 65 - 99 mg/dL POC Glucose Result Value Ref Range Glucose, POC 191 (H) 65 - 99 mg/dL POC Glucose Result Value Ref Range Glucose, POC 205 (H) 65 - 99 mg/dL POC Glucose Result Value Ref Range Glucose, POC 115 (H) 65 - 99 mg/dL Basic Metabolic Panel Result Value Ref Range Na 141 135 - 145 mmol/L K 5.4 (H) 3.5 - 4.9 mmol/L Cl 114 (H) 99 - 109 mmol/L CO2 18 (L) 23 - 32 mmol/L Anion Gap 14 5 - 20 mmol/L Glucose 88 65 - 99 mg/dL BUN 41 (H) 8 - 25 mg/dL Creatinine 1.8 (H) 0.70 - 1.30 mg/dL BUN/Creatinine Ratio 23 Calcium 8.7 8.5 - 10.5 mg/dL Estimated GFR 40 (L) >60 mL/min/1.73m2 CBC with Differential Result Value Ref Range WBC 10.81 3.80 - 11.00 K/uL RBC 3.32 (L) 4.20 - 5.70 M/uL Hemoglobin 10.1 (L) 13.2 - 17.0 g/dL Hematocrit 30.5 (L) 39.0 - 50.0 % MCV 91.8 80.0 - 100.0 fl MCH 30.4 27.0 - 34.0 pg MCHC 33.1 32.0 - 35.5 g/dL RDW-SD 46.4 37 - 53 fl Platelet Count 591 (H) 150 - 400 K/uL MPV 7.4 fl Diff Type AUTOMATED % Neutrophils 77.49 % % Lymphocytes 10.50 % Monocyte % 7.99 % Eosinophils % 2.95 % Basophils % 1.07 % Neutrophils, Absolute 8.38 (H) 1.90 - 7.40 K/uL Absolute Lymphocytes 1.14 1.00 - 3.90 K/uL Absolute Monocytes 0.86 (H) 0.00 - 0.80 K/uL Eosinophils, Absolute 0.32 0.00 - 0.50 K/uL Basophils, Absolute 0.12 (H) 0.00 - 0.10 K/uL Magnesium Result Value Ref Range Magnesium 2.0 1.7 - 2.4 mg/dL Protime INR Result Value Ref Range INR 2.8 POC Glucose Result Value Ref Range Glucose, POC 161 (H) 65 - 99 mg/dL PLAN 1. Patient is discharged to SNF. 2. Pt instructed to schedule follow-up appointments as below. 3. Education: Cardiac Surgery: The patient is being discharged with instructions on cardiac diet, ronn rnal precautions x 12 weeks and surgical incision care are according to the Society of Thora cic Surgeon guidelines. The patient is given instructions to start cardiac rehabilitation in accordance with interior design instructor recommendations. Pt advised not to drive for 6 weeks post disc harge. The patient was given extensive education regarding incision precautions. He/She was instructed to take showers using only soap and water on the incisions. The patient was encou raged to contact us in case he/she developed high fever, discharge from his/her wounds, or e xperience same symptoms prior to surgery Cardiothoracic Surgery will manage prescriptions until pt has seen seen Foundation Coordinator and Primary Care Physician, who will resume prescription management afterwards. Discharge Checklist: Aspirin (81mg/day) is being given at discharge:Yes A beta martha is being given at discharge:Yes A high-intensity statin (e.g., atorvastatin at 40-80 mg/day) is being given at discharge :Yes. Adherence to lipid modifying therapy to be monitored by cardiology An SEAN inhibitor or ARB is being given at discharge:Yes Warfarin is being given at discharge and will be managed by: The anticoagulation clini c ([facility]) with a goal INR of 2-3. Tobacco cessation counseling is being given at discharge: N/A, because the patient does not use tobacco. A referral to phase 2 cardiac rehabilitation will be given by cardiology. Disposition: Discharge to SNF Condition: Stable Code Status: Full Code No discharge procedures on file. Follow up: Yue Mcguire PA-C [address] [facility] [address] [facility] [address] Liban Nair MD [address] [facility] [address] [facility] [place][note 2] [id number] Schedule an appointment as soon as possible for a visit on 03/13/2019 Post-op Juan Canales MD [address] [address] Schedule an appointment as soon as possible for a visit in 2 weeks Post-op Discharge Medications New Medications Details losartan 50 mg tablet Take 1 tablet by mouth Daily. aka: COZAAR oxyCODONE 5 mg tablet Take 1 tablet by mouth every 6 hours as needed for Pain for up to 10 days. aka: ROXICODONE vancomycin 125 mg capsule Take 1 capsule by mouth 4 times daily for 5 days. Indications: Clostridium difficile Bacte patrick aka: VANCOCIN HCL warfarin 1 mg tablet Take 3 tablets by mouth Daily. aka: COUMADIN Changed Medications Details aspirin 81 MG EC tablet Take 2 tablets by mouth Daily. What changed: how much to take metoprolol succinate 50 mg 24 hr tablet Take 1 tablet by mouth 2 times daily. What changed: medication strength how much to take when to take this aka: TOPROL-XL Unchanged Medications Details cholecalciferol 125 mcg (5,000 units) tablet Take 1 tablet by mouth Daily. aka: VITAMIN D-3 folic acid 1 mg tablet Take 1 mg by mouth Daily. insulin aspart 100 units/mL injection Inject under the skin 3 times daily (before meals). Per sliding scale aka: novoLOG rosuvastatin 20 mg tablet Take 20 mg by mouth nightly. aka: CRESTOR SITagliptin 50 MG tablet Take 1 tablet by mouth Daily. aka: JANUVIA Discontinued Medications amLODIPine 5 mg tablet aka: NORVASC fenofibrate 160 mg tablet furosemide 40 mg tablet aka: LASIX lisinopril 20 mg tablet aka: PRINIVIL, ZESTRIL nitroglycerin 0.4 mg SL tablet aka: NITROSTAT XARELTO 20 mg tablet Generic drug: rivaroxaban Discharge took less than 30 minutes, to include final examination, discussion of admission, and preparation of prescriptions, instructions for on-going care, follow-up and documentati on of discharge summary. BELINDA Erickson 02/28/2019 Associated attestation - Mark Salcedo MD PhD - 02/28/2019 10:46 AM PSTI have reviewed the note below, personally reviewed the available laboratory and imaging studies and examine d the patient. I agree with the assessment and plan mentioned below. Electronically signed by: Mark Salcedo MD, PhD, FACS 02/28/2019 10:46documented in this encounter Medications at Time of Discharge + + + +---------+ + + | Medication | Sig | Dispensed | Refills | Start | End Date | | | | | | Date | | + + + +---------+ + + | aspirin 325 MG EC | Take 1 tablet by | 30 | 0 | 02/29/20 | | | tablet | mouth Daily. | tablet | | 19 | | + + + +---------+ + + | cholecalciferol | Take 1 tablet by | 30 | 0 | 08/09/19 | | | (CHOLECALCIFEROL) | mouth Daily. | tablet | | 19 | | | 5000 units TABS | | | | | | + + + +---------+ + + | folic acid 1 mg | Take 1 mg by mouth | | 0 | 07/27/19 | | | tablet | Daily. | | | 19 | | + + + +---------+ + + | insulin aspart | Inject under the | | 0 | | | | (NOVOLOG) 100 | skin 3 times daily | | | | | | units/mL injection | (before meals). Per | | | | | | | sliding scale | | | | | + + + +---------+ + + | losartan (COZAAR) | Take 1 tablet by | 30 | 0 | 02/28/20 | | | 50 mg tablet | mouth Daily. | tablet | | 19 | | + + + +---------+ + + | metoprolol | Take 1 tablet by | 30 | 0 | 02/28/20 | | | succinate | mouth 2 times daily. | tablet | | 19 | | | (TOPROL-XL) 50 mg 24 | | | | | | | hr tablet | | | | | | + + + +---------+ + + | rosuvastatin | Take 20 mg by mouth | | 0 | | | | (CRESTOR) 20 mg | nightly. | | | | | | tablet | | | | | | + + + +---------+ + + | sodium bicarbonate | Take 1 tablet by | 90 | 2 | 02/29/20 | | | 650 mg tablet | mouth 3 times daily | tablet | | 19 | 0 | | | for 90 days. | | | | | + + + +---------+ + + | warfarin | Take 3 tablets by | 30 | 0 | 02/28/20 | | | (COUMADIN) 1 mg | mouth Daily. | tablet | | 19 | | | tablet | | | | | | + + + +---------+ + + | insulin lispro | Inject 0-14 Units | 10 mL | 0 | 02/29/20 | | | (HUMALOG) 100 | under the skin 3 | | | 19 | 9 | | units/mL injection | times daily (with | | | | | | (vial) | meals). [employer] | | | | | | | Correctional | | | | | | | Scale:For Blood | | | | | | | Glucose (BG):142 to | | | | | | | 180 Give 2 | | | | | | | [id number] to 220 Give | | | | | | | 4 [id number] to 260 | | | | | | | Give 6 | | | | | | | to 300 Give 8 | | | | | | | [id number] to 350 Give | | | | | | | 10 units 351 to | | | | | | | 400 Give 12 units | | | | | | | Over 400 Give 14 | | | | | | | units Only for use | | | | | | | with U-100 insulin | | | | | | | syringe. | | | | | + + + +---------+ + + | oxyCODONE | Take 1 tablet by | 30 | 0 | 02/28/20 | | | (ROXICODONE) 5 mg | mouth every 6 hours | tablet | | 19 | 9 | | tablet | as needed for Pain | | | | | | | for up to 10 days. | | | | | + + + +---------+ + + | SITagliptin | Take 1 tablet by | 30 | 11 | 11/15/19 | | | (JANUVIA) 50 MG | mouth Daily. | tablet | | 19 | 9 | | tablet | | | | | | + + + +---------+ + + | vancomycin | Take 1 capsule by | 20 | 0 | 02/28/20 | | | (VANCOCIN HCL) 125 | mouth 4 times daily | capsule | | 19 | 9 | | mg | for 5 days. | | | | | | capsuleIndications: | Indications: | | | | | | Clostridium | Clostridium | | | | | | difficile | difficile Bacteria | | | | | + + + +---------+ + + documented as of this encounter Progress Notes Reji Ferguson MD - 02/28/2019 9:49 AM PST 9103/9103-01 Hospital Day: LOS: 17 days Joselito Robertson is a 53 y.o. man who has had a long and complicated course during his [facility] hospitalization. In brief he is status post CABG on 15 February. He was admitted with NSTEMI. He had recurrent acute on chronic renal failure during hospitalization and has been seen by Dr. Chandler and Dr. Patricio who had signed off on the . He feels good today and is happy at being discharged to rehab. He still however continues to have diarrhea. He had 4 bowel movements yesterday and had 2 soft bowel movements today although they were not liquidy. There was no blood in the stool. He has no abdominal pain nausea or vomiting/fever. He does not have any shortness of breath or chest pain at rest although he does get weak on walking. He has no leg swelling. PMH, PSH, Social history reviewed in chart. Allergies and medications reviewed. Previous hi story summarized as above. Prior lab data and imaging reviewed.Patient's old records and lab s were reviewed in detail and summarized. ROS: Review of systems is as per history of present illness. Otherwise a 14 organ system review of systems was done and is negative. Examination: Vitals as noted. General appearance: Sitting up in chair in no distress. Conversant Neck: FROM, supple. No NVD Lungs/chest wall: Effort fair. AE reduced B/L. No rales/wheeze. Midline scar. CV: RRR, no MRGs; normal carotid upstroke and amplitude without bruits Abdomen: Soft, non-tender; no masses or HSM Extremities: No peripheral edema or digital cyanosis. Skin: Calluses and chronic skin changes on both LE. Psych: Pleasant demeanor. Neurologic: Alert and oriented to person, place and time. No asterixis. Vital Signs: BP 106/62 | Pulse 75 | Temp 36.6 C (97.9 F) (Oral) | Resp 17 | Ht 1.803 m (5' 11") | Wt 86.1 kg (189 lb 13.1 oz) | SpO2 98% | BMI 26.47 kg/m Lab Results Component Value Date NA 141 02/28/2019 K 5.4 (H) 02/28/2019 CL 114 (H) 02/28/2019 CO2 18 (L) 02/28/2019 ANIONGAP 14 02/28/2019 GLU 88 02/28/2019 BUN 41 (H) 02/28/2019 CREA 1.8 (H) 02/28/2019 LABCREA 1.2 09/17/2017 EGFR 40 (L) 02/28/2019 BUNCREARATIO 23 02/28/2019 BCR 14 09/15/2017 TP 6.8 02/25/2019 CALCIUM 8.7 02/28/2019 PHOS 3.7 02/15/2019 PHOSPHORUSST 3.3 09/17/2017 ALBUMIN 2.1 (L) 02/25/2019 MG 2.0 02/28/2019 ELP 4.1 02/11/2019 AGRATIO 0.6 (L) 02/11/2019 BILI 0.2 02/25/2019 ALKPHOS 114 02/25/2019 ALKPEX 140 10/10/2017 AST 70 (H) 02/25/2019 ALT 64 02/25/2019 WBC 10.81 02/28/2019 HGB 10.1 (L) 02/28/2019 LABPLAT 285 09/17/2017 PROTCREATUR 1.364 02/12/2019 Lab Results Component Value Date NITRITEUA NEGATIVE 02/12/2019 GLUCOSEU 50 (A) 02/12/2019 BILIRUBINUA NEGATIVE 02/12/2019 HYALINECASTS 6-10 02/12/2019 Lab Results Component Value Date CRP 1.2 (H) 09/16/2017 Lab Results Component Value Date HBA1C 7.4 (H) 02/15/2019 LABGLYC 163 09/16/2017 CHOL 159 02/11/2019 TRIG 100 02/11/2019 HDL 44 02/11/2019 LDLEX 28 09/16/2017 Lab Results Component Value Date BNP 406.69 (H) 02/11/2019 Us Renal Limited 02/12/2019 showed Right kidney: 10.7 cm. No solid renal mass, hydronephros is or definitive calculi. Left kidney: 12.2 cm. No solid renal mass, hydronephrosis or defin itive calculi. Bladder: Normal. EKG 02/15/19 showed NSR. Assessment and recommendations: 1. Recurrent acute on chronic renal failure 2. Non-anion gap metabolic acidosis, likely from diarrhea 3. Hypovolemia with baseline systolic CHF with CAD/NSTEMI s/p CABG. 4. LV thrombus 5. Chronic anticoagulation with warfarin 6. Baseline diabetic nephropathy with proteinuria (baseline creatinine likely 1.2). 7. Mild normocytic anemia He is hemodynamically stable with no evidence of fever/tachycardia/bradycardia/severe hyper tension or severe hypotension/hypoxia. He is clinically hypovolemic with C diff colitis and while he does have baseline systolic C HF it seems compensated. Recurrent acute on chronic renal failure is likely secondary to relative hypotension with A RB use and hypovolemia with C. difficile colitis. It seems to be improved marginally with creatinine down to 1.8 today. However he seems to have developed hyperkalemia which is likely secondary to ARB use with reduced GFR in the set ting of hypovolemia. He also has persistent metabolic acidosis likely from diarrhea. While he is clinically stable and can be discharged to rehab I would recommend holding furo semide and losartan and hydrating him p.o.. He would need close follow-up with CT surgery/nephrology [Dr. Pedraza] for volume assessment which can be done along with the need for resumption of diuretic/ARB on an outpatient basis (within a week follow up would be recommended). I would recommend starting sodium bicarbonate by mouth 650 mg 3 times a day given developme nt of metabolic acidosis with CO2 less than 20. I discussed with him the concept of acute on chronic renal failure and interaction of BP/vo lume status/medications in preserving homeostasis with ESRD. Please dose all medications for an eGFR of less than 30 ml/min/1.73 m2. NSAIDS/HUNTLEY 2 inhibitors should be avoided. Aluminum/magnesium containing antacids and magnesium/phosphate containing enemas should be avoided. Strict I/O should be done. Plan of care was discussed with BELINDA Mckay. Reji Ferguson MD 02/28/2019 Portions of my previous notes have been carried over for continuity of chart review/care. He was seen earlier in the day and charting was completed later after rounds. Dictation software, [employer], was used which may contain error for similar sounding words. Pe rsonal communication is requested for any clarification. Also please do not construe any information/orders from unsigned notes. Recommendations are solely recommendations and not orders (unless explicitly stated so) and primary ordering authority is with primary team. Prognosis is guarded in view of multiple comorbid illnesses and recurrent acute on chronic renal failure. aspirin 162 mg Oral Daily atorvaSTATin 40 mg Oral Nightly insulin detemir 5 Units Subcutaneous Nightly insulin lispro 0-14 Units Subcutaneous TID WC metoprolol succinate 50 mg Oral BID vancomycin 125 mg Oral 4 times per day warfarin 3 mg Oral Daily - Warfarin dextrose 10% avariley, Juan jeong MD - 02/28/2019 8:30 AM PSTFormatting of this note might be different from the [facility] Service: Cardiology Progress Note Hospital Day: LOS: 17 days Post-Op Day: 13 Days Post-Op SUBJECTIVE Patient Summary: 53 AIM with CAD. S/P CABG. LV apical clot. Diminished EF Events Overnight: Improved creatinine OBJECTIVE Vital Signs: BP 106/62 | Pulse 75 | Temp 36.6 C (97.9 F) (Oral) | Resp 17 | Ht 1.803 m (5' 11") | Wt 86.1 kg (189 lb 13.1 oz) | SpO2 98% | BMI 26.47 kg/m Physical Exam GENERAL: Pleasant, talkative in no apparent distress CHEST: Good inspiratory effort with no crackles, ronchi, or wheezes. CARDIAC: No lifts/heaves. PMI is discrete and non-displaced. Normal S1 and S2. No murmur s, rubs or gallops. ABDOMEN: Soft, non-tender, nondistended with normal, active bowel sounds. Normal abdominal pulsation without bruit. EXTREMITIES: No clubbing, cyanosis, or edema. PULSES: Right: radial 2+, femoral 2+ DP 2+, PT 2+ Left: radial 2+, femoral 2+ DP 2+, PT 2+ DATA 1. Recent Labs Lab 02/28/19 0439 02/27/19 0349 02/26/19 0404 HGB 10.1* 9.9* 10.4* WBC 10.81 10.67 9.62 ASSESSMENT & PLAN Appreciate input from renal. OK for DC. Discussed f/u with pt. Juan Canales MD 02/28/2019 acinda Smith RN - 02/28/2019 6:05 AM PSTHourly rounding uneventful. Chart check complete. Lorena Smith RN Reji galindo MD - 02/27/2019 3:55 PM PSTFormatting of this note might be different from t migel original. 9103/9103-01 Hospital Day: LOS: 16 days Joselito Robertson is a 53 y.o. man who has had a long and complicated course during his [facility] hospitalization. In brief he is status post CABG on 15 February. He was admitted with NSTEMI. He had recurrent acute on chronic renal failure during hospitalization and has been seen by Dr. Chandler and Dr. Patricio who had signed off on the . Creatinine had come down all the way down to 1.2 from yesterday. He developed diarrhea couple of days ago and was diagnosed with C. difficile on the third a nd has had significant volume loss couple of days prior although it seems to have settled do wn now. This morning creatinine was noted to be 2.2 and his discharge was held. Nephrology follow-up was requested by BELINDA Mckay for recurrent acute on chronic renal failure. He feels okay for the most part today and does not have any diarrhea today. He has no resting chest pain or shortness of breath but does get shortness of breath on exe rtion. Echocardiogram from the had shown ejection fraction of 30% with LV thrombus. He had b een on furosemide 40 mg a day along with losartan 50 mg every day given systolic congestive heart failure. He was started on furosemide 40 mg a day on the and was not given a dose on the but was resumed on the and did also receive a dose today. He had received lisinopril 2.5 mg on 22 February which is subsequently changed over to losar kelly 25 mg which he received for 3 days ending on the at which point in time losartan w as increased to 50 mg. He was started on p.o. Vancomycin the january with diagnosis of C. difficile colit is. Blood pressure had been low the last 48 hours with systolic blood pressure of 96 this morni ng. Weight today was 86.1 kg. PMH, PSH, Social history reviewed in chart. Allergies and medications reviewed. Previous hi story summarized as above. Prior lab data and imaging reviewed.Patient's old records and lab s were reviewed in detail and summarized. ROS: Review of systems is as per history of present illness. Otherwise a 14 organ system review of systems was done and is negative. Examination: Vitals as noted. General appearance: Sitting up in bed in no distress. Conversant Neck: FROM, supple. No NVD Lungs/chest wall: Effort fair. AE reduced B/L. No rales/wheeze. Midline scar. CV: RRR, no MRGs; normal carotid upstroke and amplitude without bruits Abdomen: Soft, non-tender; no masses or HSM Extremities: No peripheral edema or digital cyanosis. Skin: Calluses and chronic skin changes on both LE. Psych: Pleasant demeanor. Neurologic: Alert and oriented to person, place and time. No asterixis. Vital Signs: BP 113/64 | Pulse 71 | Temp 36.6 C (97.9 F) (Oral) | Resp 18 | Ht 1.803 m (5' 11") | Wt 86.1 kg (189 lb 13.1 oz) | SpO2 98% | BMI 26.47 kg/m Lab Results Component Value Date NA 140 02/27/2019 K 4.9 02/27/2019 CL 115 (H) 02/27/2019 CO2 19 (L) 02/27/2019 ANIONGAP 11 02/27/2019 GLU 131 (H) 02/27/2019 BUN 39 (H) 02/27/2019 CREA 2.2 (H) 02/27/2019 LABCREA 1.2 09/17/2017 EGFR 32 (L) 02/27/2019 BUNCREARATIO 18 02/27/2019 BCR 14 09/15/2017 TP 6.8 02/25/2019 CALCIUM 8.2 (L) 02/27/2019 PHOS 3.7 02/15/2019 PHOSPHORUSST 3.3 09/17/2017 ALBUMIN 2.1 (L) 02/25/2019 MG 2.0 02/27/2019 ELP 4.1 02/11/2019 AGRATIO 0.6 (L) 02/11/2019 BILI 0.2 02/25/2019 ALKPHOS 114 02/25/2019 ALKPEX 140 10/10/2017 AST 70 (H) 02/25/2019 ALT 64 02/25/2019 WBC 10.67 02/27/2019 HGB 9.9 (L) 02/27/2019 LABPLAT 285 09/17/2017 PROTCREATUR 1.364 02/12/2019 Lab Results Component Value Date NITRITEUA NEGATIVE 02/12/2019 GLUCOSEU 50 (A) 02/12/2019 BILIRUBINUA NEGATIVE 02/12/2019 HYALINECASTS 6-10 02/12/2019 Lab Results Component Value Date CRP 1.2 (H) 09/16/2017 Lab Results Component Value Date HBA1C 7.4 (H) 02/15/2019 LABGLYC 163 09/16/2017 CHOL 159 02/11/2019 TRIG 100 02/11/2019 HDL 44 02/11/2019 LDLEX 28 09/16/2017 Lab Results Component Value Date BNP 406.69 (H) 02/11/2019 Us Renal Limited 02/12/2019 showed Right kidney: 10.7 cm. No solid renal mass, hydronephros is or definitive calculi. Left kidney: 12.2 cm. No solid renal mass, hydronephrosis or defin itive calculi. Bladder: Normal. EKG 02/15/19 showed NSR. Assessment and recommendations: 1. Recurrent acute on chronic renal failure 2. Non-anion gap metabolic acidosis, likely from diarrhea 3. Hypovolemia with baseline systolic CHF with CAD/NSTEMI s/p CABG. 4. LV thrombus 5. Chronic anticoagulation with warfarin 6. Baseline diabetic nephropathy with proteinuria (baseline creatinine likely 1.2). He is hemodynamically stable with no evidence of fever/tachycardia/bradycardia/severe hyper tension or severe hypotension/hypoxia. He is clinically hypovolemic with C diff colitis and while he does have baseline systolic C HF it seems compensated. Recurrent acute on chronic renal failure is likely secondary to relative hypotension with A RB use and hypovolemia with C. difficile colitis. I would recommend holding furosemide and losartan tomorrow and hydrating him p.o. today. If creatinine is lower tomorrow he can he can be discharged and volume assessment can be do ne along with the need for resumption of diuretic/ARB on an outpatient basis. I discussed with him the concept of acute on chronic renal failure and interaction of BP/vo lume status/medications in preserving homeostasis with ESRD. Please dose all medications for an eGFR of less than 30 ml/min/1.73 m2. NSAIDS/HUNTLEY 2 inhibitors should be avoided. Aluminum/magnesium containing antacids and magnesium/phosphate containing enemas should be avoided. Strict I/O should be done. Plan of care was discussed with BELINDA Mckay. Reji Ferguson MD 02/27/2019 He was seen earlier in the day and charting was completed later after rounds. Dictation software, [employer], was used which may contain error for similar sounding words. Pe rsonal communication is requested for any clarification. Also please do not construe any information/orders from unsigned notes. Recommendations are solely recommendations and not orders (unless explicitly stated so) and primary ordering authority is with primary team. Prognosis is guarded in view of multiple comorbid illnesses and recurrent acute on chronic renal failure. albumin 50 g Intravenous Once aspirin 162 mg Oral Daily atorvaSTATin 40 mg Oral Nightly insulin detemir 5 Units Subcutaneous Nightly insulin lispro 0-14 Units Subcutaneous TID WC metoprolol succinate 50 mg Oral BID potassium chloride 20 mEq Oral BID vancomycin 125 mg Oral 4 times per day warfarin 3 mg Oral Daily - Warfarin dextrose 10% Juan Hall MD - 02/27/2019 8:26 AM PSTFormatting of this note might be different from the [facility] Service: Cardiology Progress Note Hospital Day: LOS: 16 days Post-Op Day: 12 Days Post-Op SUBJECTIVE Patient Summary: 53 AIM with CAD. S/P CABG. LV apical clot. Diminished EF Events Overnight: Creatinine increased significantly OBJECTIVE Vital Signs: BP 111/58 | Pulse 78 | Temp 36.6 C (97.9 F) (Oral) | Resp 17 | Ht 1.803 m (5' 11") | Wt 86.1 kg (189 lb 13.1 oz) | SpO2 99% | BMI 26.47 kg/m Physical Exam GENERAL: Pleasant, talkative in no apparent distress CHEST: Good inspiratory effort with no crackles, ronchi, or wheezes. CARDIAC: No lifts/heaves. PMI is discrete and non-displaced. Normal S1 and S2. No murmur s, rubs or gallops. ABDOMEN: Soft, non-tender, nondistended with normal, active bowel sounds. Normal abdominal pulsation without bruit. EXTREMITIES: No clubbing, cyanosis, or edema. PULSES: Right: radial 2+, femoral 2+ DP 2+, PT 2+ Left: radial 2+, femoral 2+ DP 2+, PT 2+ DATA 1. Recent Labs Lab 02/27/19 0349 02/26/19 0404 02/25/19 0407 HGB 9.9* 10.4* 10.5* WBC 10.67 9.62 9.75 ASSESSMENT & PLAN Feels well. Life vest in place. Would have been ready for DC if not for creatinine rise. Does not appear to have be over di uresed, Agree with renal input request. Juan Canales MD 02/27/2019 Valeria Barrow PA-C - 02/27/2019 8:17 AM PST [facility] Service: Cardiothoracic Surgery Progress Note ROOM: 9103/9103-01 Hospital Day: LOS: 16 days Post-Op Day: 12 Days Post-Op Surgery/Procedure: 02/15/19, Dr Nair 1. Urgent coronary artery bypass grafting times 4; left internal mammary artery to left an terior descending; saphenous vein graft to diagonal; saphenous vein graft to ramus intermedi us; saphenous vein graft to obtuse marginal. 2. Endoscopic vein harvesting. SUBJECTIVE Events Overnight: No issues overnight, Afebrile, HD stable. On RA. Pain well controll ed. UOP: 500 mL/12 hrs; 2.05 L/24 hrs +unmeasured CT: Removed BM: x 5/24 hrs OBJECTIVE Vital Signs: BP 111/58 | Pulse 78 | Temp 36.6 C (97.9 F) (Oral) | Resp 17 | Ht 1.803 m (5' 11") | Wt 86.1 kg (189 lb 13.1 oz) | SpO2 99% | BMI 26.47 kg/m Current weight: Patient Vitals for the past 96 hrs: Weight 02/27/19 0559 86.1 kg (189 lb 13.1 oz) 02/26/19 0540 86.5 kg (190 lb 11.2 oz) 02/25/19 0621 85.8 kg (189 lb 2.5 oz) 02/24/19 0541 86.9 kg (191 lb 9.3 oz) Admission weight: Weight: 95.3 kg (210 lb) Physical Exam: General: Alert, oriented, in no acute distress, resting in chair Heart: RRR No murmur Lungs: CTA b/l Dim bases. Abdomen: Soft, nondistended, nontender Extremities: Well perfused, mild LE edema Musculoskeletal: no deformities or significant abnormalities Neurological: No gross focal motor or sensory deficits Skin: No rash or lesions. Mid-sternal incision dressing is C/D/I. Chest tube removed inci jennifer C/D/I. Pacing wires removed EVH incisions C/D/I. DATA: Scheduled Medications aspirin 162 mg Oral Daily atorvaSTATin 40 mg Oral Nightly furosemide 40 mg Oral Daily insulin detemir 5 Units Subcutaneous Nightly insulin lispro 0-14 Units Subcutaneous TID losartan 50 mg Oral Daily metoprolol succinate 50 mg Oral BID potassium chloride 20 mEq Oral BID vancomycin 125 mg Oral 4 times per day warfarin 3 mg Oral Daily - Warfarin Continuous Infusions dextrose 10% PRN Medications acetaminophen, albumin, albuterol, Hypoglycemia Management AND POCT Glucose AND dex trose AND dextrose 10%, HYDROmorphone, Magnesium replacement - NON ICU AND Magnesium AND magnesium oxide AND magnesium sulfate AND magnesium sulfate, menthol throat lozenges, ondansetron, oxyCODONE, phenol, Potassium replacement - NON ICU AND Potassium AND potassium chloride AND potassium chloride AND potassium chloride IVPB (othe r volumes & diluents) AND potassium chloride IVPB (other volumes & diluents) HOME MEDS: Prior to Admission medications Medication Sig Start Date End Date Taking? Authorizing Provider amLODIPine (NORVASC) 5 mg tablet Take 5 mg by mouth Daily. Yes Historical Provider, aspirin 81 MG EC tablet Take 81 mg by mouth Daily. Yes Historical Provider, cholecalciferol (CHOLECALCIFEROL) 5000 units TABS Take 1 tablet by mouth Daily. 08/08/18 Dewey s Shea Pedraza MD fenofibrate (LOFIBRA, TRIGLIDE) 160 mg tablet Take 160 mg by mouth nightly. Yes Historica l ProviderMD folic acid 1 mg tablet Take 1 mg by mouth Daily. 07/26/18 Yes Historical Provider, furosemide (LASIX) 40 mg tablet Take 1 tablet by mouth Daily. 11/14/18 Yes Shea Pedraza MD insulin aspart (NOVOLOG) 100 units/mL injection Inject under the skin 3 times daily (befor e meals). Per sliding scale Yes Historical Provider, lisinopril (PRINIVIL, ZESTRIL) 20 mg tablet Take 40 mg by mouth Daily. 06/29/18 Yes Historic al Provider, metoprolol succinate (TOPROL-XL) 100 mg ER tablet Take 100 mg by mouth Daily. Yes Histori pita Provider, nitroglycerin (NITROSTAT) 0.[address] 0.4 mg under the tongue as needed for Ches t pain. Yes Historical Provider, rivaroxaban (XARELTO) 20 mg tablet Take 1 tablet by mouth Daily (with dinner). 09/21/17 Yes Historical Provider, rosuvastatin (CRESTOR) 20 mg tablet Take 20 mg by mouth nightly. Yes Historical Provider, SITagliptin (JANUVIA) 50 MG tablet Take 1 tablet by mouth Daily. 11/14/18 Yes Shea Andrews MD LABS: Recent Labs Lab 02/27/19 0349 02/26/19 0404 02/25/19 0407 WBC 10.67 9.62 9.75 HGB 9.9* 10.4* 10.5* HCT 28.9* 31.1* 31.9* PLT 506* 577* 559* MONOPCT 8.27 7.85 8.71 Recent Labs Lab 02/27/19 0349 02/26/19 0404 02/25/19 0407 NA 140 144 141 K 4.9 4.8 4.3 CL 115* 119* 116* CO2 19* 18* 14* BUN 39* 27* 34* CALCIUM 8.2* 8.4* 8.4* ALKPHOS -- -- 114 ALT -- -- 64 AST -- -- 70* Phosphorus: Lab Results Component Value Date PHOS 3.7 02/15/2019 No results for input(s): LABALBU in the last 168 hours. Recent Labs Lab 02/27/19 03402/26/19 04002/25/19 0407 MG 2.0 2.0 2.0 No results for input(s): AMYLASE in the last 168 hours. No results for input(s): PHART, PO2ART, JAT2KKX, U6OFGPCD, BEART in the last 168 hours. Recent Labs Lab 02/27/19 03402/26/19 0404 02/25/19 0407 02/24/19 0422 02/23/19 0424 02/22/19 2258 INR 2.7 2.9 2.2 1.7 1.2 -- PTT -- -- -- 90* 56* 50* PROBLEM LIST Principal Problem: S/P CABG x 4 Active Problems: A-fib Coronary atherosclerosis DM (diabetes mellitus) CKD (chronic kidney disease) stage 3, GFR 30-59 ml/min NSTEMI (non-ST elevated myocardial infarction) Acute coronary syndrome Chest pain Acute on chronic renal failure Ischemic cardiomyopathy No components found for: HGBA1C LIPID PANEL Lab Results Component Value Date CHOL 159 02/11/2019 CHOL 84 09/16/2017 HDL 44 02/11/2019 HDL 33 (L) 09/16/2017 LDL 95 02/11/2019 TRIG 100 02/11/2019 KIDNEY TESTS Lab Results Component Value Date CREA 2.2 (H) 02/27/2019 EGFR 32 (L) 02/27/2019 ASSESSMENT & PLAN S/P CABG x 4, EVH HD stable, In SR, On RA Continue IS, PT/OT, cardiopulmonary rehab Lytes & bowel regimen per protocol. Continue GI prophylaxis Acute Coronary Syndrome Continue ASA, Statin, and BB Cardiomyopathy Intra-op EF of 25 - 30% Repeat Echo on 02/21 with LVEF of 30% Continue ASA, Statin, BB, Losartan and Lasix Waiting on LifeVest-may AICD placement prior to discharge Thrombocytosis + ASA 162 Diarrhea History of multiple loose stools prior to admission C. Diff A/B pos & PCR neg Improvement in symptoms with PO vanco Dr. Carbone consulted; her recommendations are sincerely appreciated . I/D recommendations PO vanco 125 mg q 6hrs for 7 total days . Paroxysmal Atrial Fibrillation Patient with history of PAF-on Xarelto prior to CABG Patient in SR throughout post-operative period Coumadin started on 02/21 with goal INR of 2 - 3 INR of 2.9 today (02/25). Continue Coumadin at 3 mg LV Thrombus Repeat Echo on 02/21 with LV thrombus Started on Warfarin 02/21-Continue at 3 mg daily Xarelto deferred due to increased bleeding risks postoperatively Heparin discontinued INR of 2.9 today (02/25) Goal INR of 2 - 3 Acute Surgical Blood Loss Hbg & Hct stable Continue Fe+/Vit C Hypertension Hx of HTN, lisinopril, amlodipine and Toprol XL at home Started on Losartan by Cardiology. May consider Entresto in the future Increase Losartan to [address] Vargas Metoprolol Succinate increased to 50 BID Chronic Kidney Disease/Acute Kidney Injury Cr Peaked at 2.6 (02/18) Baseline Cr of 1.8-Cr Cr. Significantly increased from 1.2 (02/26) to 2.2 (02/27) Vanco initiated on 02/25 (see diarrhea). Nephrology consult requested. Recommendations are appreciated. Stress Induced Hyperglycemia Off Endotool and on subq insulin Hx of DM, on Lantus and oral medication taken at home A1c of 7.4 Dispo Continue Step Down Unit care. Discharge to [facility] Nephrology Consult. Code Status: Full Code The patient has been seen, all new lab results and imaging reviewed, and the plan discussed with the attending provider, Dr. Matias KHAN, PA-C 02/27/2019 Associated attestation - Mark Salcedo MD PhD - 02/27/2019 10:54 AM PSTI have reviewed the note below, personally reviewed the available laboratory and imaging studies and examine d the patient. I agree with the assessment and plan mentioned below. Electronically signed by: Mark Salcedo MD, PhD, FACS 02/27/2019 10:54[facility]acon[facility] health centerLauren bro RN - 02/26/2019 8:48 PM PSTNo acute events overnight. Tai valdes continues to have multiple loose stools throughout the shift. Ambulating in room and peres without difficulty or SOB. Lifevest remains on. Lauren Diamond RN 02/27/2019 6:11 Trini Lizarraga MD - 02/26/2019 9:05 AM PST [facility] Service: Infectious Disease Progress Note Hospital Day: LOS: 15 days Post-Op Day: 11 Days Post-Op SUBJECTIVE Patient Summary: Re: Chronic, intermittent loose stools Events Overnight: Patient states he is feeling well. Diarrhea is better. He only h ad one stool with improving consistency today. He denies nausea and vomiting. Appetite has been good. He has been afebrile with no chills or sweats. Scheduled Medications aspirin 162 mg Oral Daily atorvaSTATin 40 mg Oral Nightly docusate sodium 100 mg Oral BID insulin detemir 5 Units Subcutaneous Nightly insulin lispro 0-14 Units Subcutaneous TID losartan 50 mg Oral Daily metoprolol succinate 50 mg Oral BID vancomycin 500 mg Oral 4 times per day warfarin 3 mg Oral Daily - Warfarin Continuous Infusions dextrose 10% PRN Medications acetaminophen, albumin, albuterol, bisacodyl, Hypoglycemia Management AND POCT Glucose AND dextrose AND dextrose 10%, HYDROmorphone, Magnesium replacement - NON ICU AND* * Magnesium AND magnesium oxide AND magnesium sulfate AND magnesium sulfate, men thol throat lozenges, ondansetron, oxyCODONE, phenol, polyethylene glycol, Potassium replace ment - NON ICU AND Potassium AND potassium chloride AND potassium chloride AND potassium chloride IVPB (other volumes & diluents) AND potassium chloride IVPB (other volumes & diluents), sodium phosphate OBJECTIVE Vital Signs: Vitals: 02/26/19 0813 BP: 101/53 Pulse: 77 Resp: Temp: Physical Exam Vital signs have been reviewed General: Pleasant male, not in acute distress HEENT: Normocephalic. Anicteric sclera. Moist oral mucosa Lungs: Normal respiratory effort Cardiovascular: Normal rate Abdomen: No distention. Soft. No tenderness Skin: No drug rash. Psoriatic rashes noted Neurologic: Oriented x3. No focal weakness DATA Recent Results (from the past 24 hour(s)) Clostridium difficile A and B EIA Collection Time: 02/25/19 11:25 Result Value Ref Range Clostridium Difficile GDH Antigen NEGATIVE NEG C. Diff Toxin A/B EIA POSITIVE (A) NEG C. difficile, Interp Indeterminant, repeat with fresh sample. POC Glucose Collection Time: 02/25/19 12:05 Result Value Ref Range Glucose, POC 242 (H) 65 - 99 mg/dL POC Glucose Collection Time: 02/25/19 16:31 Result Value Ref Range Glucose, POC 231 (H) 65 - 99 mg/dL Clostridium difficile DNA amplified Collection Time: 02/25/19 17:42 Result Value Ref Range C. Diff Toxin A/B, NAAT NEGATIVE CLNEG C Diff Strain [id number]-X1, Stool 027 NAP1 BI PRESUMPTIVE NEGATIVE POC Glucose Collection Time: 02/25/19 21:05 Result Value Ref Range Glucose, POC 114 (H) 65 - 99 mg/dL Basic Metabolic Panel Collection Time: 02/26/19 4:04 Result Value Ref Range Na 144 135 - 145 mmol/L K 4.8 3.5 - 4.9 mmol/L Cl 119 (H) 99 - 109 mmol/L CO2 18 (L) 23 - 32 mmol/L Anion Gap 12 5 - 20 mmol/L Glucose 89 65 - 99 mg/dL BUN 27 (H) 8 - 25 mg/dL Creatinine 1.2 0.70 - 1.30 mg/dL BUN/Creatinine Ratio 23 Calcium 8.4 (L) 8.5 - 10.5 mg/dL Estimated GFR >60 >60 mL/min/1.73m2 CBC with Differential Collection Time: 02/26/19 4:04 Result Value Ref Range WBC 9.62 3.80 - 11.00 K/uL RBC 3.36 (L) 4.20 - 5.70 M/uL Hemoglobin 10.4 (L) 13.2 - 17.0 g/dL Hematocrit 31.1 (L) 39.0 - 50.0 % MCV 92.6 80.0 - 100.0 fl MCH 31.1 27.0 - 34.0 pg MCHC 33.6 32.0 - 35.5 g/dL RDW-SD 45.1 37 - 53 fl Platelet Count 577 (H) 150 - 400 K/uL MPV 7.3 fl Diff Type AUTOMATED % Neutrophils 73.49 % % Lymphocytes 14.28 % Monocyte % 7.85 % Eosinophils % 3.57 % Basophils % 0.81 % Neutrophils, Absolute 7.07 1.90 - 7.40 K/uL Absolute Lymphocytes 1.37 1.00 - 3.90 K/uL Absolute Monocytes 0.76 0.00 - 0.80 K/uL Eosinophils, Absolute 0.34 0.00 - 0.50 K/uL Basophils, Absolute 0.08 0.00 - 0.10 K/uL Magnesium Collection Time: 02/26/19 4:04 Result Value Ref Range Magnesium 2.0 1.7 - 2.4 mg/dL Protime INR Collection Time: 02/26/19 4:04 Result Value Ref Range INR 2.9 POC Glucose Collection Time: 02/26/19 7:41 Result Value Ref Range Glucose, POC 164 (H) 65 - 99 mg/dL PROBLEM LIST Principal Problem: S/P CABG x 4 Active Problems: A-fib Coronary atherosclerosis DM (diabetes mellitus) CKD (chronic kidney disease) stage 3, GFR 30-59 ml/min NSTEMI (non-ST elevated myocardial infarction) Acute coronary syndrome Chest pain Acute on chronic renal failure Ischemic cardiomyopathy ASSESSMENT & PLAN Diarrhea -C. difficile report is equivocal. Toxins +, GDH Ag - with PCR - -Patient has no abdominal pain, afebrile, with normal WBC but with reactive thrombocytosis . He has known chronic kidney disease with acute kidney injury appearing to have improved -Patient indicates having chronic, intermittent diarrhea. Results are not available but h e indicates that he had prior GI work-up for chronic diarrhea which came back negative -Patient previously received laxatives and received a dose of Lomotil yesterday. Although not absolutely contraindicated with C. difficile, please avoid antimotility agents. -We will cautiously treat the patient, particularly with plan for transfer to swing bed/re habilitation with p.o. Vancomycin. Drop down dose to 125 mg q 6 - day 2 of 7. -Contact enteric isolation -I will defer specifics of fluid electrolyte management to the primary team Case discussed with CTS and AMS pharmacist Code Status: Full Code Trini Carbone MD 02/26/2019 aGiorgi mckenzie MD - 02/26/2019 9:00 AM PSTFormatting of this note might be different fro m the original. [facility] Service: Cardiology Progress Note Hospital Day: LOS: 15 days Post-Op Day: 11 Days Post-Op SUBJECTIVE Patient Summary: 53 AIM with CAD. S/P CABG. LV apical clot. Diminished EF Events Overnight: none OBJECTIVE Vital Signs: BP 101/53 | Pulse 77 | Temp 36.8 C (98.2 F) (Oral) | Resp 20 | Ht 1.803 m (5' 11") | Wt 86.5 kg (190 lb 11.2 oz) | SpO2 99% | BMI 26.60 kg/m Physical Exam GENERAL: Pleasant, talkative in no apparent distress CHEST: Good inspiratory effort with no crackles, ronchi, or wheezes. CARDIAC: No lifts/heaves. PMI is discrete and non-displaced. Normal S1 and S2. No murmur s, rubs or gallops. ABDOMEN: Soft, non-tender, nondistended with normal, active bowel sounds. Normal abdominal pulsation without bruit. EXTREMITIES: No clubbing, cyanosis, or edema. PULSES: Right: radial 2+, femoral 2+ DP 2+, PT 2+ Left: radial 2+, femoral 2+ DP 2+, PT 2+ DATA 1. Recent Labs Lab 02/26/19 0404 02/25/19 0407 02/24/19 0422 HGB 10.4* 10.5* 10.5* WBC 9.62 9.75 9.97 ASSESSMENT & PLAN Await insurance decision on life vest. Clinically ready to go to rehab. Looks well, no C/O. Juan Canales MD 02/26/2019 Valeria Barrow PA-C - 02/26/2019 7:41 AM PST [facility] Service: Cardiothoracic Surgery Progress Note ROOM: [address] [place] [address] Hospital Day: LOS: 15 days Post-Op Day: 11 Days Post-Op Surgery/Procedure: 02/15/19, Dr Nair 1. Urgent coronary artery bypass grafting times 4; left internal mammary artery to left an terior descending; saphenous vein graft to diagonal; saphenous vein graft to ramus intermedi us; saphenous vein graft to obtuse marginal. 2. Endoscopic vein harvesting. SUBJECTIVE Events Overnight: No issues overnight, Afebrile, HD stable. On RA. Pain well controll ed. UOP: 400 mL/12 hrs; 800 mL/24 hrs +unmeasured CT: Removed BM: x 6/24 hrs OBJECTIVE Vital Signs: BP 111/60 | Pulse 75 | Temp 36.5 C (97.7 F) (Oral) | Resp 18 | Ht 1.803 m (5' 11") | Wt 86.5 kg (190 lb 11.2 oz) | SpO2 98% | BMI 26.60 kg/m Current weight: Patient Vitals for the past 96 hrs: Weight 02/26/19 0540 86.5 kg (190 lb 11.2 oz) 02/25/19 0621 85.8 kg (189 lb 2.5 oz) 02/24/19 0541 86.9 kg (191 lb 9.3 oz) 02/23/19 0623 88.5 kg (195 lb 1.7 oz) Admission weight: Weight: 95.3 kg (210 lb) Physical Exam: General: Alert, oriented, in no acute distress, resting in chair Heart: RRR No murmur Lungs: CTA b/l Dim bases. Abdomen: Soft, nondistended, nontender Extremities: Well perfused, mild LE edema Musculoskeletal: no deformities or significant abnormalities Neurological: No gross focal motor or sensory deficits Skin: No rash or lesions. Mid-sternal incision dressing is C/D/I. Chest tube removed inci jennifer C/D/I. Pacing wires removed EVH incisions C/D/I. DATA: Scheduled Medications aspirin 162 mg Oral Daily atorvaSTATin 40 mg Oral Nightly docusate sodium 100 mg Oral BID insulin detemir 5 Units Subcutaneous Nightly insulin lispro 0-14 Units Subcutaneous TID WC losartan 50 mg Oral Daily metoprolol succinate 50 mg Oral BID vancomycin 500 mg Oral 4 times per day warfarin 3 mg Oral Daily - Warfarin Continuous Infusions dextrose 10% PRN Medications acetaminophen, albumin, albuterol, bisacodyl, Hypoglycemia Management AND POCT Glucose AND dextrose AND dextrose 10%, HYDROmorphone, Magnesium replacement - NON ICU AND* * Magnesium AND magnesium oxide AND magnesium sulfate AND magnesium sulfate, men thol throat lozenges, ondansetron, oxyCODONE, phenol, polyethylene glycol, Potassium replace ment - NON ICU AND Potassium AND potassium chloride AND potassium chloride AND potassium chloride IVPB (other volumes & diluents) AND potassium chloride IVPB (other volumes & diluents), sodium phosphate HOME MEDS: Prior to Admission medications Medication Sig Start Date End Date Taking? Authorizing Provider amLODIPine (NORVASC) 5 mg tablet Take 5 mg by mouth Daily. Yes Historical Provider, aspirin 81 MG EC tablet Take 81 mg by mouth Daily. Yes Historical Provider, cholecalciferol (CHOLECALCIFEROL) 5000 units TABS Take 1 tablet by mouth Daily. 08/08/18 Dewey s Shea Pedraza MD fenofibrate (LOFIBRA, TRIGLIDE) 160 mg tablet Take 160 mg by mouth nightly. Yes Historica l ProviderMD folic acid 1 mg tablet Take 1 mg by mouth Daily. 07/26/18 Yes Historical Provider, furosemide (LASIX) 40 mg tablet Take 1 tablet by mouth Daily. 11/14/18 Yes Shea Pedraza MD insulin aspart (NOVOLOG) 100 units/mL injection Inject under the skin 3 times daily (befor e meals). Per sliding scale Yes Historical ProviderMD lisinopril (PRINIVIL, ZESTRIL) 20 mg tablet Take 40 mg by mouth Daily. 06/29/18 Yes Historic al Provider, metoprolol succinate (TOPROL-XL) 100 mg ER tablet Take 100 mg by mouth Daily. Yes Histori pita Provider, nitroglycerin (NITROSTAT) 0.[address] 0.4 mg under the tongue as needed for Ches t pain. Yes Historical Provider, rivaroxaban (XARELTO) 20 mg tablet Take 1 tablet by mouth Daily (with dinner). 09/21/17 Yes Historical Provider, rosuvastatin (CRESTOR) 20 mg tablet Take 20 mg by mouth nightly. Yes Historical Provider, SITagliptin (JANUVIA) 50 MG tablet Take 1 tablet by mouth Daily. 11/14/18 Yes Shea Andrews MD LABS: Recent Labs Lab 02/26/1940302/25/1940602/24/19421 WBC 9.62 9.75 9.97 HGB 10.4* 10.5* 10.5* HCT 31.1* 31.9* 30.7* PLT 577* 559* 528* MONOPCT 7.85 8.71 8.89 Recent Labs Lab 02/26/1940302/25/1940602/24/19421 NA 144 141 140 K 4.8 4.3 4.3 CL 119* 116* 115* CO2 18* 14* 18* BUN 27* 34* 29* CALCIUM 8.4* 8.4* 8.2* ALKPHOS -- 114 -- ALT -- 64 -- AST -- 70* -- Phosphorus: Lab Results Component Value Date PHOS 3.7 02/15/2019 No results for input(s): LABALBU in the last 168 hours. Recent Labs Lab 02/26/1940302/25/1940602/24/19421 MG 2.0 2.0 1.8 No results for input(s): AMYLASE in the last 168 hours. No results for input(s): PHART, PO2ART, VHB6CNY, T8EEWUXN, BEART in the last 168 hours. Recent Labs Lab 02/26/1940302/25/1940602/24/1942102/23/1942302/22/19 2258 INR 2.9 2.2 1.7 1.2 -- PTT -- -- 90* 56* 50* PROBLEM LIST Principal Problem: S/P CABG x 4 Active Problems: A-fib Coronary atherosclerosis DM (diabetes mellitus) CKD (chronic kidney disease) stage 3, GFR 30-59 ml/min NSTEMI (non-ST elevated myocardial infarction) Acute coronary syndrome Chest pain Acute on chronic renal failure Ischemic cardiomyopathy No components found for: HGBA1C LIPID PANEL Lab Results Component Value Date CHOL 159 02/11/2019 CHOL 84 09/16/2017 HDL 44 02/11/2019 HDL 33 (L) 09/16/2017 LDL 95 02/11/2019 TRIG 100 02/11/2019 KIDNEY TESTS Lab Results Component Value Date CREA 1.2 02/26/2019 EGFR >60 02/26/2019 ASSESSMENT & PLAN S/P CABG x 4, [facility] HD stable, In SR, On RA Continue IS, PT/OT, cardiopulmonary rehab Lytes & bowel regimen per protocol. Continue GI prophylaxis Acute Coronary Syndrome Continue ASA, Statin, and BB Cardiomyopathy Intra-op EF of 25 - 30% Repeat Echo on 02/21 with LVEF of 30% Continue ASA, Statin, BB. Losartan added 02/23 Waiting on LifeVest-august AICD placement prior to discharge Fluid Volume Deficit Per Cardiology continue long-term diuresis for reduced LVEF w/ 40 mg Lasix PO q day Thrombocytosis + ASA 162 Diarrhea History of multiple loose stools prior to admission C. Diff A/B pos & PCR neg Improvement in symptoms with PO vanco Dr. Carbone consulted; her recommendations are sincerely appreciated . I/D recommendations PO vanco 125 mg q 6hrs for 7 total days . Paroxysmal Atrial Fibrillation Patient with history of PAF-on Xarelto prior to CABG Patient in SR throughout post-operative period Coumadin started on 02/21 with goal INR of 2 - 3 INR of 2.9 today (02/25). Continue Coumadin at 3 mg LV Thrombus Repeat Echo on 02/21 with LV thrombus Started on Warfarin 02/21-Continue at 3 mg daily Xarelto deferred due to increased bleeding risks postoperatively Heparin discontinued INR of 2.9 today (02/25) Goal INR of 2 - 3 Acute Surgical Blood Loss Hbg & Hct stable Continue Fe+/Vit C Hypertension Hx of HTN, lisinopril, amlodipine and Toprol XL at home Started on Losartan by Cardiology. May consider Entresto in the future Increase Losartan to [address] Vargas Metoprolol Succinate increased to 50 BID Chronic Kidney Disease/Acute Kidney Injury Improved Cr Peaked at 2.6 (02/18) Baseline Cr of 1.8-Cr plateau at 1.4 Diuresis per Cardiology Stress Induced Hyperglycemia Off Endotool and on subq insulin Hx of DM, on Lantus and oral medication taken at home A1c of 7.4 Dispo Continue Step Down Unit care. [facility]charge to [facility] pending Life Vest place ment. Code Status: Full Code The patient has been seen, all new lab results and imaging reviewed, and the plan discussed with the attending provider, Dr. Luisana KHAN PA-C 02/26/2019 Associated attestation - Liban Nair MD - 02/26/2019 4:47 PM PSTPatient was seen, exami danis, labs, x-rays, treatment plan reviewed. Lauren Diamond RN - 02/26/2019 4:08 AM PSTNo acute events overnight. Patient started on PO Vanco and states improvement in diarrhea this shift, last BM was in the afternoon on d ay shift. Vitals stable, patient denies pain. Ambulated in peres with minimal assist. Lauren Diamond RN 02/26/2019 6:13 reen, SHABBIR Cantor - 02/25/2019 10:06 AM PST . [facility] Service: Cardiothoracic Surgery Progress Note ROOM: 9103/9103-01 Hospital Day: LOS: 14 days Post-Op Day: 10 Days Post-Op Surgery/Procedure: 02/15/19, Dr Nair 1. Urgent coronary artery bypass grafting times 4; left internal mammary artery to left an terior descending; saphenous vein graft to diagonal; saphenous vein graft to ramus intermedi us; saphenous vein graft to obtuse marginal. 2. Endoscopic vein harvesting. SUBJECTIVE Events Overnight: No issues overnight, Afebrile, HD stable. Tmax of 37.0. INR devin UOP: 450 mL/12 hrs; 1.23 L/24 hrs +unmeasured CT: Removed BM: x 24 hrs OBJECTIVE Vital Signs: BP 128/68 | Pulse 78 | Temp 36.4 C (97.6 F) (Oral) | Resp 19 | Ht 1.803 m (5' 11") | Wt 85.8 kg (189 lb 2.5 oz) | SpO2 99% | BMI 26.38 kg/m Current weight: Patient Vitals for the past 96 hrs: Weight 02/25/19 0621 85.8 kg (189 lb 2.5 oz) 02/24/19 0541 86.9 kg (191 lb 9.3 oz) 02/23/19 0623 88.5 kg (195 lb 1.7 oz) 02/22/19 0500 90.1 kg (198 lb 10.2 oz) Admission weight: Weight: 95.3 kg (210 lb) Physical Exam: General: Alert, oriented, in no acute distress, resting in chair Heart: RRR No murmur Lungs: CTA b/l Dim bases. Abdomen: Soft, nondistended, nontender Extremities: Well perfused, mild LE edema Musculoskeletal: no deformities or significant abnormalities Neurological: No gross focal motor or sensory deficits Skin: No rash or lesions. Mid-sternal incision dressing is C/D/I. Chest tube removed inci jennifer C/D/I. Pacing wires removed EVH incisions C/D/I. DATA: Scheduled Medications [START ON 02/26/2019] aspirin 162 mg Oral Daily atorvaSTATin 40 mg Oral Nightly diphenoxylate-atropine 2 tablet Oral Once docusate sodium 100 mg Oral BID insulin detemir 5 Units Subcutaneous Nightly insulin lispro 0-14 Units Subcutaneous TID WC [START ON 02/26/2019] losartan 50 mg Oral Daily metoprolol succinate 50 mg Oral BID warfarin 5 mg Oral Daily - Warfarin Continuous Infusions dextrose 10% PRN Medications acetaminophen, albumin, albuterol, bisacodyl, Hypoglycemia Management AND POCT Glucose AND dextrose AND dextrose 10%, HYDROmorphone, Magnesium replacement - NON ICU AND* * Magnesium AND magnesium oxide AND magnesium sulfate AND magnesium sulfate, men thol throat lozenges, ondansetron, oxyCODONE, phenol, polyethylene glycol, Potassium replace ment - NON ICU AND Potassium AND potassium chloride AND potassium chloride AND potassium chloride IVPB (other volumes & diluents) AND potassium chloride IVPB (other volumes & diluents), sodium phosphate HOME MEDS: Prior to Admission medications Medication Sig Start Date End Date Taking? Authorizing Provider amLODIPine (NORVASC) 5 mg tablet Take 5 mg by mouth Daily. Yes Historical Provider, aspirin 81 MG EC tablet Take 81 mg by mouth Daily. Yes Historical Provider, cholecalciferol (CHOLECALCIFEROL) 5000 units TABS Take 1 tablet by mouth Daily. 08/08/18 Dewey s Shea Pedraza MD fenofibrate (LOFIBRA, TRIGLIDE) 160 mg tablet Take 160 mg by mouth nightly. Yes Historica l ProviderMD folic acid 1 mg tablet Take 1 mg by mouth Daily. 07/26/18 Yes Historical Provider, furosemide (LASIX) 40 mg tablet Take 1 tablet by mouth Daily. 11/14/18 Yes Shea Pedraza MD insulin aspart (NOVOLOG) 100 units/mL injection Inject under the skin 3 times daily (befor e meals). Per sliding scale Yes Historical Provider, lisinopril (PRINIVIL, ZESTRIL) 20 mg tablet Take 40 mg by mouth Daily. 06/29/18 Yes Historic al Provider, metoprolol succinate (TOPROL-XL) 100 mg ER tablet Take 100 mg by mouth Daily. Yes Histori pita Provider, nitroglycerin (NITROSTAT) 0.[address] 0.4 mg under the tongue as needed for Ches t pain. Yes Historical Provider, rivaroxaban (XARELTO) 20 mg tablet Take 1 tablet by mouth Daily (with dinner). 09/21/17 Yes Historical Provider, rosuvastatin (CRESTOR) 20 mg tablet Take 20 mg by mouth nightly. Yes Historical Provider, SITagliptin (JANUVIA) 50 MG tablet Take 1 tablet by mouth Daily. 11/14/18 Yes Shea Andrews MD LABS: Recent Labs Lab 02/25/19 0407 02/24/19 0422 02/23/19 0424 WBC 9.75 9.97 10.49 HGB 10.5* 10.5* 11.6* HCT 31.9* 30.7* 34.3* PLT 559* 528* 507* MONOPCT 8.71 8.89 8.74 Recent Labs Lab 02/25/1940602/24/1942102/23/19211802/23/19423 NA 141 140 -- 141 K 4.3 4.3 4.8 3.9 CL 116* 115* -- 113* CO2 14* 18* -- 21* BUN 34* 29* -- 28* CALCIUM 8.4* 8.2* -- 8.7 ALKPHOS 114 -- -- -- ALT 64 -- -- -- AST 70* -- -- -- Phosphorus: Lab Results Component Value Date PHOS 3.7 02/15/2019 No results for input(s): LABALBU in the last 168 hours. Recent Labs Lab 02/25/1940602/24/1942102/23/19423 MG 2.0 1.8 2.0 No results for input(s): AMYLASE in the last 168 hours. No results for input(s): PHART, PO2ART, WSL5BFS, E7MUINTH, BEART in the last 168 hours. Recent Labs Lab 02/25/1940602/24/1942102/23/1942302/22/19 2258 INR 2.2 1.7 1.2 -- PTT -- 90* 56* 50* PROBLEM LIST Principal Problem: S/P CABG x 4 Active Problems: A-fib Coronary atherosclerosis DM (diabetes mellitus) CKD (chronic kidney disease) stage 3, GFR 30-59 ml/min NSTEMI (non-ST elevated myocardial infarction) Acute coronary syndrome Chest pain Acute on chronic renal failure Ischemic cardiomyopathy No components found for: HGBA1C LIPID PANEL Lab Results Component Value Date CHOL 159 02/11/2019 CHOL 84 09/16/2017 HDL 44 02/11/2019 HDL 33 (L) 09/16/2017 LDL 95 02/11/2019 TRIG 100 02/11/2019 KIDNEY TESTS Lab Results Component Value Date CREA 1.4 (H) 02/25/2019 EGFR 53 (L) 02/25/2019 ASSESSMENT & PLAN S/P CABG x 4, [facility] HD stable, In SR, On RA Continue IS, PT/OT, cardiopulmonary rehab Lytes & bowel regimen per protocol. Continue GI prophylaxis Acute Coronary Syndrome Continue ASA, Statin, and BB Cardiomyopathy Intra-op EF of 25 - 30% Repeat Echo on 02/21 with LVEF of 30% Continue ASA, Statin, BB. Losartan added 02/23 Waiting on LifeVest-may AICD placement in future Patient with a history of medical non-compliance. Fluid Volume Deficit -10 kg from pre-op weight. -6 L on I&O's Lasix held. Push PO fluids today BUN 34, Serum CO2 14, Anion Gap 15 Thrombocytosis Plt count increased to 559 today (02/25) Will increase ASA to 162 Diarrhea History of multiple loose stools prior to admission Will order cdiff studies today One dose of Lomotil ordered for today Paroxysmal Atrial Fibrillation Patient with history of PAF-on Xarelto prior to CABG Patient in SR throughout post-operative period Coumadin started on 02/21 with goal INR of 2 - 3 INR of 2.2 today (02/25). Continue Coumadin at 5 mg LV Thrombus Repeat Echo on 02/21 with LV thrombus Started on Warfarin 02/21-Continue at 5 mg daily Xarelto deferred due to increased bleeding risks postoperatively Heparin discontinued INR of 2.2 today (02/25) Goal INR of 2 - 3 Acute Surgical Blood Loss Hbg & Hct stable Continue Fe+/Vit C Hypertension Hx of HTN, lisinopril, amlodipine and Toprol XL at home Started on Losartan by Cardiology. May consider Entresto in the future Increase Losartan to [address] Vargas Metoprolol Succinate increased to 50 BID Chronic Kidney Disease/Acute Kidney Injury Improved Cr Peaked at 2.6 (02/18) Baseline Cr of 1.8-Cr plateau at 1.4 Lasix held Nephrology following-appreciate recommendations Hold nephrotoxic medications, including SEAN/ARB's Stress Induced Hyperglycemia Off Endotool and on subq insulin Hx of DM, on Lantus and oral medication taken at home A1c of 7.4 Dispo Continue Step Down Unit care. Placement with [facility] Bed on Tuesday. Code Status: Full Code The patient has been seen, all new lab results and imaging reviewed, and the plan discussed with the attending provider, Dr. Matias GARCIA, INDUSTRIAL RELATIONS REPRESENTATIVE 02/25/2019 Associated attestation - Mark Salcedo MD PhD - 02/25/2019 10:27 AM PSTI have reviewed the note below, personally reviewed the available laboratory and imaging studies and examine d the patient. I agree with the assessment and plan mentioned below. Electronically signed by: Mark Salcedo MD, PhD, FACS 02/25/2019 10:27ZuDouglas louis MD - 02/25/2019 8:47 AM PSTFormatting of this note might b e different from the original. [facility] Service: Cardiology Progress note Hospital Day: LOS 14 Post-op Day: 10 Days Post-Op Subjective Patient Summary: He states that his chest pain probably occurs with a cough. No true marni nal chest pain. Occasional slight incisional pain with certain movements. He denies palpit ations or racing heart. Some occasional slight dizziness with sudden positional changes. B ut has had no near syncopal or syncopal symptoms. Still some dyspnea with activities but he believes is getting a little better. Events Overnight: Rhythm is normal sinus rhythm with rare ectopics. No high risk bradycar jakub or tachyarrhythmias. There is been no recurrence of atrial fibrillation. aspirin 81 mg Oral Daily atorvaSTATin 40 mg Oral Nightly docusate sodium 100 mg Oral BID insulin detemir 5 Units Subcutaneous Nightly insulin lispro 0-14 Units Subcutaneous TID WC losartan 25 mg Oral Daily metoprolol tartrate 50 mg Oral BID warfarin 5 mg Oral Daily - Warfarin PRN Medications: acetaminophen, albumin, albuterol, bisacodyl, Hypoglycemia Management AND POCT Glucose AND dextrose AND dextrose 10%, HYDROmorphone, Magnesium replacement - NON ICU AND* * Magnesium AND magnesium oxide AND magnesium sulfate AND magnesium sulfate, men thol throat lozenges, ondansetron, oxyCODONE, phenol, polyethylene glycol, Potassium replace ment - NON ICU AND Potassium AND potassium chloride AND potassium chloride AND potassium chloride IVPB (other volumes & diluents) AND potassium chloride IVPB (other volumes & diluents), sodium phosphate Current Facilty-Administered PRN Medications Ordered in [facility] Medication Dose Route Frequency Provider Last Rate Last Dose acetaminophen (TYLENOL) tablet 650 mg 650 mg Oral Q4H PRN Valeria Khan PA-C 650 mg at 02/20/192049 albumin 5% IVPB 25 g 25 g Intravenous PRN BELINDA Erickson 500 mL/hr at 02/15/19 19 30 12.5 g at 02/15/19 1930 albuterol 2.5 mg/3 mL nebulizer solution 2.5 mg 2.5 mg Nebulization RT Q4H PRN BELINDA Gamino bisacodyl (DULCOLAX) suppository 10 mg 10 mg Rectal Daily PRN BELINDA Erickson dextrose 50% injection 12.5-25 g 12.5-25 g Intravenous PRN BELINDA Erickson And dextrose 10% (D10W) infusion Intravenous Continuous PRN BELINDA Erickson HYDROmorphone (DILAUDID) injection 0.5-1 mg 0.5-1 mg Intravenous Q2H PRN BELINDA Pneny magnesium oxide (MAG-OX) tablet 800 mg 800 mg Oral Daily PRN BELINDA Erickson 800 mg at 02/24/19 1712 And magnesium sulfate 2 g/50 mL IVPB 2 g 2 g Intravenous Daily PRN BELINDA Erickson And magnesium sulfate 4 g/100 mL IVPB 4 g 4 g Intravenous Daily PRN BELINDA Erickson menthol (HALLS) lozenge 1 lozenge 1 lozenge Buccal Q2H PRN BELINDA Erickson ondansetron (ZOFRAN) injection 4 mg 4 mg Intravenous Q6H PRN BELINDA Erickson 4 m g at 02/18/19 0518 oxyCODONE (ROXICODONE) tablet 5-20 mg 5-20 mg Oral Q3H PRN BELINDA Erickson 5 mg at 02/17/19 1855 phenol (CHLORASEPTIC) spray 1-2 spray 1-2 spray Mouth/Throat Q3H PRN BELINDA Erickson polyethylene glycol (MIRALAX) powder 17 g 17 g Oral Daily PRN BELINDA Erickson 17 g at 02/16/19 1025 potassium chloride (KLOR-CON) ER tablet 20-40 mEq 20-40 mEq Oral Daily PRN EBLINDA Lyman 20 mEq at 02/23/19 1738 And potassium chloride (KLOR-CON) packet 20-40 mEq 20-40 mEq Per G Tube Daily PRN BELINDA Ruiz And potassium chloride 20 mEq in sodium chloride 0.9% 250 mL IVPB 20 mEq Intravenous Daily PRN BELINDA Erickson And potassium chloride 40 mEq in sodium chloride 0.9% 500 mL IVPB 40 mEq Intravenous Daily PRN BELINDA Erickson sodium phosphate (FLEET) enema 133 mL 133 mL Rectal Once PRN BELINDA Erickson Objective: Vital Signs: BP 128/68 | Pulse 78 | Temp 36.4 C (97.6 F) (Oral) | Resp 19 | Ht 1.803 m (5' 11") | Wt 85.8 kg (189 lb 2.5 oz) | SpO2 99% | BMI 26.38 kg/m Temp: [36.4 C (97.6 F)-37 C (98.6 F)] 36.4 C (97.6 F) Pulse: [78-88] 78 Resp: [16-20] 19 BP: (103-152)/(54-79) 128/68 Vitals with Comments 02/24/2019 02/25/2019 02/25/2019 02/25/2019 SYSTOLIC 103 110 - 128 DIASTOLIC 54 59 - 68 Pulse 80 78 - 78 Temp 97.8 97.9 - 97.6 Temp Comments - - - - Resp 18 18 - 19 Weight - - 189 lbs 2 oz - Height - - - - SPO2 97 98 - 99 BMI - - - - Pain Score - - - - Intake/Output Summary (Last 24 hours) at 02/25/2019 0847 Last data filed at 02/25/2019 0743 Gross per 24 hour Intake 805 ml Output 925 ml Net -120 ml First: 95.3 kg (02/11/19 0311)Last: 85.8 kg (02/25/19 06)Difference: -9.5kg Physical Exam Constitutional: He is oriented to person, place, and time. He is active. He appears toxic. He does not appear ill. No distress. Minimally listless HENT: Head: Normocephalic and atraumatic. Right Ear: External ear normal. Left Ear: External ear normal. Nose: Nose normal. Mouth/Throat: Oropharynx is clear and moist. No oropharyngeal exudate. Eyes: EOM are normal. Right eye exhibits no discharge. Left eye exhibits no discharge. No s cleral icterus. Neck: Neck supple. No JVD (sitting up) present. No tracheal deviation present. No thyromega ly present. Cardiovascular: Normal rate. Extrasystoles (rare) are present. Exam reveals no S3, no dist ant heart sounds, no friction rub and no midsystolic click. Murmur heard. Systolic murmur is present with a grade of 1/6. Pulmonary/Chest: No accessory muscle usage. No tachypnea and no bradypnea. No respiratory d istress. He has decreased breath sounds. He has no wheezes. He has no rhonchi. He has no ral es. He exhibits no tenderness. Sternotomy incision is evident. No erythema or exudate. He is minimally dull at the bases . Abdominal: Bowel sounds are normal. He exhibits no distension. There is no tenderness. Ther e is no rebound and no guarding. Musculoskeletal: He exhibits edema and tenderness. Lymphadenopathy: He has no cervical adenopathy. Neurological: He is oriented to person, place, and time. No cranial nerve deficit. Coordina tion normal. Non-focal weakness lower ext > upper Skin: Skin is warm and dry. He is not diaphoretic. Some chronic skin changes lower extremities. Psychiatric: He has a normal mood and affect. His speech is normal. Thought content normal. He is slowed (Minimally). This is my first evaluation of the patient in terms of cognitive function. I do not apprec iate any evidence of gross cognitive dysfunction at this time. Data: Recent Results (from the past 24 hour(s)) POC Glucose Result Value Ref Range Glucose, POC 179 (H) 65 - 99 mg/dL POC Glucose Result Value Ref Range Glucose, POC 170 (H) 65 - 99 mg/dL POC Glucose Result Value Ref Range Glucose, POC 151 (H) 65 - 99 mg/dL Basic Metabolic Panel Result Value Ref Range Na 141 135 - 145 mmol/L K 4.3 3.5 - 4.9 mmol/L Cl 116 (H) 99 - 109 mmol/L CO2 14 (LL) 23 - 32 mmol/L Anion Gap 15 5 - 20 mmol/L Glucose 148 (H) 65 - 99 mg/dL BUN 34 (H) 8 - 25 mg/dL Creatinine 1.4 (H) 0.70 - 1.30 mg/dL BUN/Creatinine Ratio 24 Calcium 8.4 (L) 8.5 - 10.5 mg/dL Estimated GFR 53 (L) >60 mL/min/1.73m2 CBC with Differential Result Value Ref Range WBC 9.75 3.80 - 11.00 K/uL RBC 3.42 (L) 4.20 - 5.70 M/uL Hemoglobin 10.5 (L) 13.2 - 17.0 g/dL Hematocrit 31.9 (L) 39.0 - 50.0 % MCV 93.3 80.0 - 100.0 fl MCH 30.6 27.0 - 34.0 pg MCHC 32.8 32.0 - 35.5 g/dL RDW-SD 47.7 37 - 53 fl Platelet Count 559 (H) 150 - 400 K/uL MPV 7.1 fl Diff Type AUTOMATED % Neutrophils 74.04 % % Lymphocytes 12.93 % Monocyte % 8.71 % Eosinophils % 3.38 % Basophils % 0.94 % Neutrophils, Absolute 7.22 1.90 - 7.40 K/uL Absolute Lymphocytes 1.26 1.00 - 3.90 K/uL Absolute Monocytes 0.85 (H) 0.00 - 0.80 K/uL Eosinophils, Absolute 0.33 0.00 - 0.50 K/uL Basophils, Absolute 0.09 0.00 - 0.10 K/uL Magnesium Result Value Ref Range Magnesium 2.0 1.7 - 2.4 mg/dL Protime INR Result Value Ref Range INR 2.2 Hepatic Function Panel Result Value Ref Range Protein, Total 6.8 6.3 - 8.2 g/dL Albumin 2.1 (L) 3.6 - 5.0 g/dL BILIRUBIN, TOTAL 0.2 0.1 - 1.5 mg/dL Bilirubin Direct 0.1 0.0 - 0.3 mg/dL ALK PHOS 114 35 - 115 U/L AST 70 (H) 10 - 45 U/L ALT 64 10 - 65 U/L POC Glucose Result Value Ref Range Glucose, POC 111 (H) 65 - 99 mg/dL Problem List: Principal Problem: S/P CABG x 4 Active Problems: A-fib Coronary atherosclerosis DM (diabetes mellitus) CKD (chronic kidney disease) stage 3, GFR 30-59 ml/min NSTEMI (non-ST elevated myocardial infarction) Acute coronary syndrome Chest pain Acute on chronic renal failure Ischemic cardiomyopathy Left ventricular thrombus Assessment: See problem list Recommendations: His creatinine is stable at 1.4 today. He has had no hypotension. I woul d consider upward titration of his losartan to 50 mg a day. Given that his ejection fractio n is low I would switch him to metoprolol succinate but agree with the twice daily dosing. Dr. Canales will assume primary cardiology care tomorrow 02/26/2019. Code Status: Full Code Douglas Vargas MD 02/25/19 Monica, Chen Abrams RN - 02/25/2019 5:28 AM PSTHourly rounding uneventful. Chart check complete. Lorena Smith RN [facility] Ros[facility] - 02/24/2019 1:11 PM PDTFormatting of this note might be different from the mitzi merino. [facility] Service: Cardiothoracic Surgery Progress Note ROOM: [address] [place] [address] Hospital Day: LOS: 13 days Post-Op Day: 9 Days Post-Op Surgery/Procedure: 02/15/19, Dr Nair 1. Urgent coronary artery bypass grafting times 4; left internal mammary artery to left an terior descending; saphenous vein graft to diagonal; saphenous vein graft to ramus intermedi us; saphenous vein graft to obtuse marginal. 2. Endoscopic vein harvesting. SUBJECTIVE Events Overnight: No issues overnight, Afebrile, HD stable. Tmax of 36.7. INR remains subtherapeutic. UOP: 375 mL/12 hrs; 1.4mL/24 hrs +unmeasured CT: Removed BM: x 5/24 hrs OBJECTIVE Vital Signs: BP 120/71 | Pulse 85 | Temp 36.5 C (97.7 F) (Oral) | Resp 20 | Ht 1.803 m (5' 11") | Wt 86.9 kg (191 lb 9.3 oz) | SpO2 100% | BMI 26.72 kg/m Current weight: Patient Vitals for the past 96 hrs: Weight 02/24/19 0541 86.9 kg (191 lb 9.3 oz) 02/23/19 0623 88.5 kg (195 lb 1.7 oz) 02/22/19 0500 90.1 kg (198 lb 10.2 oz) 02/21/19 0537 92.8 kg (204 lb 9.4 oz) Admission weight: Weight: 95.3 kg (210 lb) Physical Exam: General: Alert, oriented, in no acute distress, resting in chair Heart: RRR No murmur Lungs: CTA b/l Dim bases. Abdomen: Soft, nondistended, nontender Extremities: Well perfused, mild LE edema Musculoskeletal: no deformities or significant abnormalities Neurological: No gross focal motor or sensory deficits Skin: No rash or lesions. Mid-sternal incision dressing is C/D/I. Chest tube removed inci jennifer C/D/I. Pacing wires removed EVH incisions C/D/I. DATA: Scheduled Medications aspirin 81 mg Oral Daily atorvaSTATin 40 mg Oral Nightly docusate sodium 100 mg Oral BID insulin detemir 5 Units Subcutaneous Nightly insulin lispro 0-14 Units Subcutaneous TID WC losartan 25 mg Oral Daily metoprolol tartrate 50 mg Oral BID Continuous Infusions dextrose 10% PRN Medications acetaminophen, albumin, albuterol, bisacodyl, Hypoglycemia Management AND POCT Glucose AND dextrose AND dextrose 10%, HYDROmorphone, Magnesium replacement - NON ICU AND* * Magnesium AND magnesium oxide AND magnesium sulfate AND magnesium sulfate, men thol throat lozenges, ondansetron, oxyCODONE, phenol, polyethylene glycol, Potassium replace ment - NON ICU AND Potassium AND potassium chloride AND potassium chloride AND potassium chloride IVPB (other volumes & diluents) AND potassium chloride IVPB (other volumes & diluents), sodium phosphate HOME MEDS: Prior to Admission medications Medication Sig Start Date End Date Taking? Authorizing Provider amLODIPine (NORVASC) 5 mg tablet Take 5 mg by mouth Daily. Yes Historical Provider, aspirin 81 MG EC tablet Take 81 mg by mouth Daily. Yes Historical Provider, cholecalciferol (CHOLECALCIFEROL) 5000 units TABS Take 1 tablet by mouth Daily. 08/08/18 Ye s Shea Pedraza MD fenofibrate (LOFIBRA, TRIGLIDE) 160 mg tablet Take 160 mg by mouth nightly. Yes Historica l ProviderMD folic acid 1 mg tablet Take 1 mg by mouth Daily. 07/26/18 Yes Historical Provider, furosemide (LASIX) 40 mg tablet Take 1 tablet by mouth Daily. 11/14/18 Yes Shea Pedraza MD insulin aspart (NOVOLOG) 100 units/mL injection Inject under the skin 3 times daily (befor e meals). Per sliding scale Yes Historical Provider, lisinopril (PRINIVIL, ZESTRIL) 20 mg tablet Take 40 mg by mouth Daily. 06/29/18 Yes Historic al Provider, metoprolol succinate (TOPROL-XL) 100 mg ER tablet Take 100 mg by mouth Daily. Yes Histori pita Provider, nitroglycerin (NITROSTAT) 0.[address] 0.4 mg under the tongue as needed for Ches t pain. Yes Historical Provider, rivaroxaban (XARELTO) 20 mg tablet Take 1 tablet by mouth Daily (with dinner). 09/21/17 Yes Historical Provider, rosuvastatin (CRESTOR) 20 mg tablet Take 20 mg by mouth nightly. Yes Historical Provider, SITagliptin (JANUVIA) 50 MG tablet Take 1 tablet by mouth Daily. 11/14/18 Yes Shea Andrews MD LABS: Recent Labs Lab 02/24/1942102/23/1942302/22/19 0402 WBC 9.97 10.49 11.18* HGB 10.5* 11.6* 11.4* HCT 30.7* 34.3* 33.8* PLT 528* 507* 409* MONOPCT 8.89 8.74 9.97 Recent Labs Lab 02/24/1942102/23/19211802/23/1942302/22/19 0402 NA 140 -- 141 -- 140 K 4.3 4.8 3.9 < > 3.9 CL 115* -- 113* -- 109 CO2 18* -- 21* -- 23 BUN 29* -- 28* -- 30* CALCIUM 8.2* -- 8.7 -- 8.5 < > = values in this interval not displayed. Phosphorus: Lab Results Component Value Date PHOS 3.7 02/15/2019 No results for input(s): LABALBU in the last 168 hours. Recent Labs Lab 02/24/1942102/23/1942302/22/19 0402 MG 1.8 2.0 1.8 No results for input(s): AMYLASE in the last 168 hours. No results for input(s): PHART, PO2ART, BUN1ZOI, G1KVPZZB, BEART in the last 168 hours. Recent Labs Lab 02/24/1942102/23/1942302/22/198 02/22/19 0402 INR 1.7 1.2 -- -- 1.1 PTT 90* 56* 50* < > -- < > = values in this interval not displayed. PROBLEM LIST Principal Problem: S/P CABG x 4 Active Problems: A-fib Coronary atherosclerosis DM (diabetes mellitus) CKD (chronic kidney disease) stage 3, GFR 30-59 ml/min NSTEMI (non-ST elevated myocardial infarction) Acute coronary syndrome Chest pain Acute on chronic renal failure Ischemic cardiomyopathy No components found for: HGBA1C LIPID PANEL Lab Results Component Value Date CHOL 159 02/11/2019 CHOL 84 09/16/2017 HDL 44 02/11/2019 HDL 33 (L) 09/16/2017 LDL 95 02/11/2019 TRIG 100 02/11/2019 KIDNEY TESTS Lab Results Component Value Date CREA 1.4 (H) 02/24/2019 EGFR 53 (L) 02/24/2019 ASSESSMENT & PLAN S/P CABG x 4, EVH HD stable, In SR, On RA Continue IS, PT/OT, cardiopulmonary rehab Lytes & bowel regimen per protocol. Continue GI prophylaxis HR mildly elevated overnight. Will switch metoprolol to 50 BID. Acute Coronary Syndrome Continue ASA, Statin, and BB Cardiomyopathy Intra-op EF of 25 - 30% Repeat Echo on 02/21 with LVEF of 30% Continue ASA, Statin, BB. Losartan added 02/23 Waiting on LifeVest May need AICD placement in future Patient with a history of medical non-compliance. Paroxysmal Atrial Fibrillation Patient with history of PAF On Xarelto prior to CABG Patient in SR throughout post-operative period Coumadin started on 02/21 with goal INR of 2 - 3 INR of 1.7 today. Continue Coumadin at 5 mg LV Thrombus Repeat Echo on 02/21 with LV thrombus Started on Warfarin 02/21-Continue at 5 mg daily Xarelto deferred due to increased bleeding risks postoperatively Heparin bridge initiated on 02/22- PTT of 56 INR of 1.7 today (02/24) Goal INR of 2 - 3 Acute Surgical Blood Loss Hbg & Hct stable Continue Fe+/Vit C Hypertension Hx of HTN, lisinopril, amlodipine and Toprol XL at home Started on Losartan by Cardiology. May consider Entresto in the future Continue Losartan at current dose. Chronic Kidney Disease/Acute Kidney Injury Improved Cr Peaked at 2.6 (02/18) Cr 1.4 today x 2 days Baseline Cr of 1.8 Lasix held for now due to continued loose stool. Nephrology following-appreciate recommendations Hold nephrotoxic medications, including SEAN/ARB's Stress Induced Hyperglycemia Off Endotool and on subq insulin Hx of DM, on Lantus and oral medication taken at home A1c of 7.4 Appreciate DM educator assistance Dispo Continue Step Down Unit care. Placement with [facility] Swing Bed on Tuesday. Code Status: Full Code The patient has been seen, all new lab results and imaging reviewed, and the plan discussed with the attending provider, Dr. Matias GARCIA, INDUSTRIAL RELATIONS REPRESENTATIVE 02/24/2019 Associated attestation - Mark Salcedo MD PhD - 02/24/2019 3:04 PM PDTI have reviewed the note below, personally reviewed the available laboratory and imaging studies and examine d the patient. I agree with the assessment and plan mentioned below. Electronically signed by: Mark Salcedo MD, PhD, FACS 02/24/2019 15:04ZuDouglas louis MD - 02/24/2019 9:33 AM PDTFormatting of this note might b e different from the original. [facility] Service: Cardiology Progress note Hospital Day: LOS 13 Post-op Day: 9 Days Post-Op Subjective Patient Summary: HE DENIES ANGINAL CP, PALPS, INCREASED SOB. STILL TIRED AND A LITTLE WE AK Events Overnight: RHYTHM NSR. NO AFIB OR SIGNIFICANT ARRHYTHMIA. aspirin 81 mg Oral Daily atorvaSTATin 40 mg Oral Nightly docusate sodium 100 mg Oral BID insulin detemir 5 Units Subcutaneous Nightly insulin lispro 0-14 Units Subcutaneous TID WC losartan 25 mg Oral Daily metoprolol succinate 75 mg Oral Daily PRN Medications: acetaminophen, albumin, albuterol, bisacodyl, Hypoglycemia Management AND POCT Glucose AND dextrose AND dextrose 10%, HYDROmorphone, Magnesium replacement - NON ICU AND* * Magnesium AND magnesium oxide AND magnesium sulfate AND magnesium sulfate, men thol throat lozenges, ondansetron, oxyCODONE, phenol, polyethylene glycol, Potassium replace ment - NON ICU AND Potassium AND potassium chloride AND potassium chloride AND potassium chloride IVPB (other volumes & diluents) AND potassium chloride IVPB (other volumes & diluents), sodium phosphate Current Facilty-Administered PRN Medications Ordered in Epic Medication Dose Route Frequency Provider Last Rate Last Dose acetaminophen (TYLENOL) tablet 650 mg 650 mg Oral Q4H PRN Valeria Khan PA-C 650 mg at 02/20/192049 albumin 5% IVPB 25 g 25 g Intravenous PRN BELINDA Erickson 500 mL/hr at 02/15/19 19 30 12.5 g at 02/15/19 1930 albuterol 2.5 mg/3 mL nebulizer solution 2.5 mg 2.5 mg Nebulization RT Q4H PRN BELINDA Gamino bisacodyl (DULCOLAX) suppository 10 mg 10 mg Rectal Daily PRN BELINDA Erickson dextrose 50% injection 12.5-25 g 12.5-25 g Intravenous PRN BELINDA Erickson And dextrose 10% (D10W) infusion Intravenous Continuous PRN BELINDA Erickson HYDROmorphone (DILAUDID) injection 0.5-1 mg 0.5-1 mg Intravenous Q2H PRN BELINDA Penny magnesium oxide (MAG-OX) tablet 800 mg 800 mg Oral Daily PRN BELINDA Erickson 800 mg at 02/22/19 0804 And magnesium sulfate 2 g/50 mL IVPB 2 g 2 g Intravenous Daily PRN BELINDA Erickson And magnesium sulfate 4 g/100 mL IVPB 4 g 4 g Intravenous Daily PRN BELINDA Erickson menthol (HALLS) lozenge 1 lozenge 1 lozenge Buccal Q2H PRN BELINDA Erickson ondansetron (ZOFRAN) injection 4 mg 4 mg Intravenous Q6H PRN BELINDA Erickson 4 m g at 02/18/19 0518 oxyCODONE (ROXICODONE) tablet 5-20 mg 5-20 mg Oral Q3H PRN BELINDA Erickson 5 mg at 02/17/19 1855 phenol (CHLORASEPTIC) spray 1-2 spray 1-2 spray Mouth/Throat Q3H PRN BELINDA Erickson polyethylene glycol (MIRALAX) powder 17 g 17 g Oral Daily PRN BELINDA Erickson 17 g at 02/16/19 1025 potassium chloride (KLOR-CON) ER tablet 20-40 mEq 20-40 mEq Oral Daily PRN BELINDA Lyman 20 mEq at 02/23/19 1738 And potassium chloride (KLOR-CON) packet 20-40 mEq 20-40 mEq Per G Tube Daily PRN BELINDA Ruiz And potassium chloride 20 mEq in sodium chloride 0.9% 250 mL IVPB 20 mEq Intravenous Daily PRN BELINDA Erickson And potassium chloride 40 mEq in sodium chloride 0.9% 500 mL IVPB 40 mEq Intravenous Daily PRN BELINDA Erickson sodium phosphate (FLEET) enema 133 mL 133 mL Rectal Once PRN BELINDA Erickson Objective: Vital Signs: BP 123/65 | Pulse 91 | Temp 36.7 C (98 F) (Oral) | Resp 20 | Ht 1.803 m (5' 11") | Wt 86.9 kg (191 lb 9.3 oz) | SpO2 96% | BMI 26.72 kg/m Temp: [36.5 C (97.7 F)-36.7 C (98 F)] 36.7 C (98 F) Pulse: [79-93] 91 Resp: [19-22] 20 BP: (109-145)/(57-81) 123/65 Vitals with Comments 02/24/2019 02/24/2019 02/24/2019 02/24/2019 SYSTOLIC - 113 123 - DIASTOLIC - 58 65 - Pulse - 93 91 - Temp - - - 98 Temp Comments - - - - Resp - - - 20 Weight 191 lbs 9 oz - - - Height - - - - SPO2 - - - - BMI - - - - Pain Score - - - - Intake/Output Summary (Last 24 hours) at 02/24/2019 0933 Last data filed at 02/24/2019 0800 Gross per 24 hour Intake 712 ml Output 1475 ml Net -763 ml First: 95.3 kg (02/11/19 031)Last: 86.9 kg (02/24/19 0541)Difference: -8.4kg Physical Exam Constitutional: He is oriented to person, place, and time. He is active. He appears non-tox ic. He does not appear ill. No distress. Minimally listless HENT: Head: Normocephalic and atraumatic. Right Ear: External ear normal. Left Ear: External ear normal. Nose: Nose normal. Mouth/Throat: Oropharynx is clear and moist. No oropharyngeal exudate. Eyes: EOM are normal. Right eye exhibits no discharge. Left eye exhibits no discharge. No s cleral icterus. Neck: Neck supple. No JVD (sitting up) present. No tracheal deviation present. No thyromega ly present. Cardiovascular: Normal rate. Extrasystoles (rare) are present. Exam reveals no S3, no dist ant heart sounds, no friction rub and no midsystolic click. Murmur heard. Systolic murmur is present with a grade of 1/6. Pulmonary/Chest: No accessory muscle usage. No tachypnea and no bradypnea. No respiratory d istress. He has decreased breath sounds. He has no wheezes. He has no rhonchi. He has no ral es. He exhibits no tenderness. Sternotomy incision is evident. No erythema or exudate. He is minimally dull at the bases . Abdominal: Bowel sounds are normal. He exhibits no distension. There is no tenderness. Ther e is no rebound and no guarding. Musculoskeletal: He exhibits edema and tenderness. Lymphadenopathy: He has no cervical adenopathy. Neurological: He is oriented to person, place, and time. No cranial nerve deficit. Coordina tion normal. Non-focal weakness lower ext > upper Skin: Skin is warm and dry. He is not diaphoretic. Some chronic skin changes lower extremities. Psychiatric: He has a normal mood and affect. His speech is normal. Thought content normal. He is slowed (Minimally). I do not appreciate any evidence of gross cognitive dysfunction at this time. Data: Recent Results (from the past 24 hour(s)) POC Glucose Result Value Ref Range Glucose, POC 118 (H) 65 - 99 mg/dL POC Glucose Result Value Ref Range Glucose, POC 177 (H) 65 - 99 mg/dL POC Glucose Result Value Ref Range Glucose, POC 169 (H) 65 - 99 mg/dL Potassium Result Value Ref Range K 4.8 3.5 - 4.9 mmol/L Basic Metabolic Panel Result Value Ref Range Na 140 135 - 145 mmol/L K 4.3 3.5 - 4.9 mmol/L Cl 115 (H) 99 - 109 mmol/L CO2 18 (L) 23 - 32 mmol/L Anion Gap 11 5 - 20 mmol/L Glucose 123 (H) 65 - 99 mg/dL BUN 29 (H) 8 - 25 mg/dL Creatinine 1.4 (H) 0.70 - 1.30 mg/dL BUN/Creatinine Ratio 21 Calcium 8.2 (L) 8.5 - 10.5 mg/dL Estimated GFR 53 (L) >60 mL/min/1.73m2 CBC with Differential Result Value Ref Range WBC 9.97 3.80 - 11.00 K/uL RBC 3.33 (L) 4.20 - 5.70 M/uL Hemoglobin 10.5 (L) 13.2 - 17.0 g/dL Hematocrit 30.7 (L) 39.0 - 50.0 % MCV 92.2 80.0 - 100.0 fl MCH 31.4 27.0 - 34.0 pg MCHC 34.1 32.0 - 35.5 g/dL RDW-SD 46.8 37 - 53 fl Platelet Count 528 (H) 150 - 400 K/uL MPV 7.3 fl Diff Type AUTOMATED % Neutrophils 73.94 % % Lymphocytes 12.93 % Monocyte % 8.89 % Eosinophils % 3.37 % Basophils % 0.87 % Neutrophils, Absolute 7.37 1.90 - 7.40 K/uL Absolute Lymphocytes 1.29 1.00 - 3.90 K/uL Absolute Monocytes 0.89 (H) 0.00 - 0.80 K/uL Eosinophils, Absolute 0.34 0.00 - 0.50 K/uL Basophils, Absolute 0.09 0.00 - 0.10 K/uL Magnesium Result Value Ref Range Magnesium 1.8 1.7 - 2.4 mg/dL Protime INR Result Value Ref Range INR 1.7 PTT Result Value Ref Range PTT 90 (HH) 23 - 32 seconds POC Glucose Result Value Ref Range Glucose, POC 125 (H) 65 - 99 mg/dL Problem List: Principal Problem: NSTEMI (non-ST elevated myocardial infarction) Active Problems: A-fib Coronary atherosclerosis DM (diabetes mellitus) CKD (chronic kidney disease) stage 3, GFR 30-59 ml/min Acute coronary syndrome Chest pain Acute on chronic renal failure Ischemic cardiomyopathy LV THROMBUS Assessment: SEE P L Recommendations: HR'S RELATIVELY HIGH AND NO PEREZ OR HYPOTENSION, CONSIDER UPWARD TITRATIO N OF METOPROLOL. Code Status: Full Code Douglas Vargas MD 02/24/19 Chen Damon i, RN - 02/24/2019 6:11 AM PDTHourly rounding uneventful Chart check complete. Lorena Smith RN Yomi Osei ARNP - 02/23/2019 1:59 PM PDTPatient with multiple episodes of loose sto ols daily. Creatinine and chloride increased slightly over last 24 hours. Patient is on RA, lungs clear. Lasix discontinued. Will re-evaluate for need daily given EF of 30%. Electronic ally signed by SHABBIR Duval at 02/23/2019 2:09 PM Halima Marks [facility] - 1 04/25/2018 1:55 PM PDT Clinical Pharmacy Note: Warfarin Continuation of Therapy Referring Provider: Valeria Robertson male 53 y.o. Indication Atrial Fibrillation, LV thrombus Goal INR: 2-3 Other Anticoagulation: Heparin drip (xarelto listed on [facility] med list) Drug Interactions: aspirin may increase list of bleeding. [employer] med list reviewed and no sign ificant DDI identified. Plavix stopped Diet: Diet General - eating 100% of meals Recent Labs Lab 02/23/19 0424 02/22/19 0402 02/21/19 1501 02/21/19 0535 HGB 11.6* 11.4* -- 11.1* PLT 507* 409* -- 329 INR 1.2 1.1 1.1 -- DATE 02/21 02/22 02/23 INR 1.1 1.1 1.2 DOSE 5 mg 5 mg 10 mg Assessment INR: 1.2 is not goal within goal of 2 -3 Per warfarin protocol, dose on day 3 would indicate 5-10 mg Will target a higher dose since INR has been relatively stable. Plan ? Warfarin 10 mg PO today ? Daily INR with AM labs Pharmacy will continue to follow and modify therapy as indicated. Thank you. Alexander. Tapia Saurabh I have read and agree with the resident's assessment and plan. Escalating warfarin dose tod ay to obtain therapeutic level more quickly and transition off of heparin drip in anticipati on of discharge to [facility] this weekend. If INR increases by more than 0.5 tomorrow wo uld drop dose back to 5 mg daily to avoid supratherpeutic level. Halima Domínguez PharmD 02/23/19 15:34 Primary team would like to continue with 5 mg at this time. Orders have been updated to ref lect 5 mg dose tonight. 10 mg dose has been discontinued. Halima Domínguez PharmD 02/23/19 16:05 Douglas Angelo MD - 02/23/2019 12:59 PM PDT [facility] Service: Cardiology Progress note Hospital Day: LOS 12 Post-op Day: 8 Days Post-Op Subjective Patient Summary: He is currently only getting chest pain with coughing. May be a little m ild incisional discomfort but nothing severe. Some dyspnea with activities but he believes is getting a little better. He denies palpitations or racing heart. Some occasional dizzin ess with sudden positional changes but no near syncope or syncope. Events Overnight: Normal sinus rhythm. No significant ectopy. There is been no recurrenc e of atrial fibrillation. aspirin 81 mg Oral Daily atorvaSTATin 40 mg Oral Nightly docusate sodium 100 mg Oral BID furosemide 40 mg Oral Daily insulin detemir 5 Units Subcutaneous Nightly insulin lispro 0-14 Units Subcutaneous TID WC losartan 25 mg Oral Daily metoprolol succinate 75 mg Oral Daily warfarin 5 mg Oral Daily - Warfarin warfarin per pharmacy Other Pharmacy Consult PRN Medications: acetaminophen, albumin, albuterol, bisacodyl, Hypoglycemia Management AND POCT Glucose AND dextrose AND dextrose 10%, HYDROmorphone, Magnesium replacement - NON ICU AND* * Magnesium AND magnesium oxide AND magnesium sulfate AND magnesium sulfate, men thol throat lozenges, ondansetron, oxyCODONE, phenol, polyethylene glycol, Potassium replace ment - NON ICU AND Potassium AND potassium chloride AND potassium chloride AND potassium chloride IVPB (other volumes & diluents) AND potassium chloride IVPB (other volumes & diluents), sodium phosphate Current Facilty-Administered PRN Medications Ordered in Epic Medication Dose Route Frequency Provider Last Rate Last Dose acetaminophen (TYLENOL) tablet 650 mg 650 mg Oral Q4H PRN Valeria Khan PA-C 650 mg at 02/20/192049 albumin 5% IVPB 25 g 25 g Intravenous PRN BELINDA Erickson 500 mL/hr at 02/15/19 30 12.5 g at 02/15/19 193 albuterol 2.5 mg/3 mL nebulizer solution 2.5 mg 2.5 mg Nebulization RT Q4H PRN BELINDA Gamino bisacodyl (DULCOLAX) suppository 10 mg 10 mg Rectal Daily PRN BELINDA Erickson dextrose 50% injection 12.5-25 g 12.5-25 g Intravenous PRN BELINDA Erickson And dextrose 10% (D10W) infusion Intravenous Continuous PRN BELINDA Erickson HYDROmorphone (DILAUDID) injection 0.5-1 mg 0.5-1 mg Intravenous Q2H PRN BELINDA Penny magnesium oxide (MAG-OX) tablet 800 mg 800 mg Oral Daily PRN BELINDA Erickson 800 mg at 02/22/19 0804 And magnesium sulfate 2 g/50 mL IVPB 2 g 2 g Intravenous Daily PRN BELINDA Erickson And magnesium sulfate 4 g/100 mL IVPB 4 g 4 g Intravenous Daily PRN BELINDA Erickson menthol (HALLS) lozenge 1 lozenge 1 lozenge Buccal Q2H PRN BELINDA Erickson ondansetron (ZOFRAN) injection 4 mg 4 mg Intravenous Q6H PRN BELINDA Erickson 4 m g at 02/18/19 0518 oxyCODONE (ROXICODONE) tablet 5-20 mg 5-20 mg Oral Q3H PRN BELINDA Erickson 5 mg at 02/17/19 1855 phenol (CHLORASEPTIC) spray 1-2 spray 1-2 spray Mouth/Throat Q3H PRN BELINDA Erickosn polyethylene glycol (MIRALAX) powder 17 g 17 g Oral Daily PRN BELINDA Erickson 17 g at 02/16/19 1025 potassium chloride (KLOR-CON) ER tablet 20-40 mEq 20-40 mEq Oral Daily PRN BELINDA Lyman 20 mEq at 02/22/19 0804 And potassium chloride (KLOR-CON) packet 20-40 mEq 20-40 mEq Per G Tube Daily PRN BELINDA Ruiz And potassium chloride 20 mEq in sodium chloride 0.9% 250 mL IVPB 20 mEq Intravenous Daily PRN BELINDA Erickson And potassium chloride 40 mEq in sodium chloride 0.9% 500 mL IVPB 40 mEq Intravenous Daily PRN BELINDA Erickson sodium phosphate (FLEET) enema 133 mL 133 mL Rectal Once PRN BELINDA Erickson Objective: Vital Signs: BP 127/79 | Pulse 83 | Temp 36.5 C (97.7 F) (Oral) | Resp 19 | Ht 1.803 m (5' 11") | Wt 88.5 kg (195 lb 1.7 oz) | SpO2 100% | BMI 27.21 kg/m Temp: [36.3 C (97.4 F)-36.9 C (98.4 F)] 36.5 C (97.7 F) Pulse: [83-91] 83 Resp: [18-20] 19 BP: (110-141)/(57-79) 127/79 Vitals with Comments 02/23/2019 02/23/2019 02/23/2019 02/23/2019 SYSTOLIC - 141 129 127 DIASTOLIC - 72 66 79 Pulse - 90 88 83 Temp - 97.4 - 97.7 Temp Comments - - - - Resp - 18 - Weight 195 lbs 2 oz - - - Height - - - - SPO2 - 98 - 100 BMI - - - - Pain Score - - - - Intake/Output Summary (Last 24 hours) at 02/23/2019 1259 Last data filed at 02/23/2019 0730 Gross per 24 hour Intake 176.86 ml Output 450 ml Net -273.14 ml First: 95.3 kg (02/11/19 0311)Last: 88.5 kg (02/23/19 0623)Difference: -6.8kg Physical Exam Constitutional: He is oriented to person, place, and time. He is active. He appears toxic. He does not appear ill. No distress. Minimally listless HENT: Head: Normocephalic and atraumatic. Right Ear: External ear normal. Left Ear: External ear normal. Nose: Nose normal. Mouth/Throat: Oropharynx is clear and moist. No oropharyngeal exudate. Eyes: EOM are normal. Right eye exhibits no discharge. Left eye exhibits no discharge. No s cleral icterus. Neck: Neck supple. No JVD (sitting up) present. No tracheal deviation present. No thyromega ly present. Cardiovascular: Normal rate. Extrasystoles (rare) are present. Exam reveals no S3, no dist ant heart sounds, no friction rub and no midsystolic click. Murmur heard. Systolic murmur is present with a grade of 1/6. Pulmonary/Chest: No accessory muscle usage. No tachypnea and no bradypnea. No respiratory d istress. He has decreased breath sounds. He has no wheezes. He has no rhonchi. He has no ral es. He exhibits no tenderness. Sternotomy incision is evident. No erythema or exudate. He is minimally dull at the bases . Abdominal: Bowel sounds are normal. He exhibits no distension. There is no tenderness. Ther e is no rebound and no guarding. Musculoskeletal: He exhibits edema and tenderness. Lymphadenopathy: He has no cervical adenopathy. Neurological: He is oriented to person, place, and time. No cranial nerve deficit. Coordina tion normal. Non-focal weakness lower ext > upper Skin: Skin is warm and dry. He is not diaphoretic. Some chronic skin changes lower extremities. Psychiatric: He has a normal mood and affect. His speech is normal. Thought content normal. He is slowed (Minimally). I do not appreciate any evidence of gross cognitive dysfunction at this time. Data: Recent Results (from the past 24 hour(s)) PTT Result Value Ref Range PTT 41 (H) 23 - 32 seconds POC Glucose Result Value Ref Range Glucose, POC 127 (H) 65 - 99 mg/dL POC Glucose Result Value Ref Range Glucose, POC 159 (H) 65 - 99 mg/dL PTT Result Value Ref Range PTT 50 (H) 23 - 32 seconds Basic Metabolic Panel Result Value Ref Range Na 141 135 - 145 mmol/L K 3.9 3.5 - 4.9 mmol/L Cl 113 (H) 99 - 109 mmol/L CO2 21 (L) 23 - 32 mmol/L Anion Gap 11 5 - 20 mmol/L Glucose 158 (H) 65 - 99 mg/dL BUN 28 (H) 8 - 25 mg/dL Creatinine 1.4 (H) 0.70 - 1.30 mg/dL BUN/Creatinine Ratio 20 Calcium 8.7 8.5 - 10.5 mg/dL Estimated GFR 53 (L) >60 mL/min/1.73m2 CBC with Differential Result Value Ref Range WBC 10.49 3.80 - 11.00 K/uL RBC 3.71 (L) 4.20 - 5.70 M/uL Hemoglobin 11.6 (L) 13.2 - 17.0 g/dL Hematocrit 34.3 (L) 39.0 - 50.0 % MCV 92.5 80.0 - 100.0 fl MCH 31.2 27.0 - 34.0 pg MCHC 33.7 32.0 - 35.5 g/dL RDW-SD 45.5 37 - 53 fl Platelet Count 507 (H) 150 - 400 K/uL MPV 7.8 fl Diff Type AUTOMATED % Neutrophils 75.71 % % Lymphocytes 11.00 % Monocyte % 8.74 % Eosinophils % 3.71 % Basophils % 0.84 % Neutrophils, Absolute 7.94 (H) 1.90 - 7.40 K/uL Absolute Lymphocytes 1.15 1.00 - 3.90 K/uL Absolute Monocytes 0.92 (H) 0.00 - 0.80 K/uL Eosinophils, Absolute 0.39 0.00 - 0.50 K/uL Basophils, Absolute 0.09 0.00 - 0.10 K/uL Magnesium Result Value Ref Range Magnesium 2.0 1.7 - 2.4 mg/dL Protime INR Result Value Ref Range INR 1.2 PTT Result Value Ref Range PTT 56 (H) 23 - 32 seconds POC Glucose Result Value Ref Range Glucose, POC 165 (H) 65 - 99 mg/dL POC Glucose Result Value Ref Range Glucose, POC 118 (H) 65 - 99 mg/dL Problem List: Principal Problem: NSTEMI (non-ST elevated myocardial infarction) Active Problems: A-fib Coronary atherosclerosis DM (diabetes mellitus) CKD (chronic kidney disease) stage 3, GFR 30-59 ml/min Acute coronary syndrome Chest pain Acute on chronic renal failure Ischemic cardiomyopathy Assessment: See problem list Recommendations: Creatinine is up very slightly. On this basis I am not going to titrate up upward on the losartan. If the creatinine goes up any further may have to consider decr easing the furosemide. A prescription for the LifeVest has been initiated and we are trying to confirm coverage. Code Status: Full Code Douglas Vargas MD 02/23/19 reen, [address], [facility] - 02/23/2019 8:29 AM PDTFormatting of this note might be different from the or iginal. [facility] Service: Cardiothoracic Surgery Progress Note ROOM: 9103/9103-01 Hospital Day: LOS: 12 days Post-Op Day: 8 Days Post-Op Surgery/Procedure: 02/15/19, Dr Nair 1. Urgent coronary artery bypass grafting times 4; left internal mammary artery to left an terior descending; saphenous vein graft to diagonal; saphenous vein graft to ramus intermedi us; saphenous vein graft to obtuse marginal. 2. Endoscopic vein harvesting. SUBJECTIVE Events Overnight: Remains in SR, on RA. Afebrile. Pain well controlled. INR subtherap eutic UOP: 200 mL/12 hrs; 400 mL/24 hrs +unmeasured CT: Removed BM: x 7/24 hrs OBJECTIVE Vital Signs: BP 141/72 | Pulse 90 | Temp 36.3 C (97.4 F) (Oral) | Resp 18 | Ht 1.803 m (5' 11") | Wt 88.5 kg (195 lb 1.7 oz) | SpO2 98% | BMI 27.21 kg/m Current weight: Patient Vitals for the past 96 hrs: Weight 02/23/19 0623 88.5 kg (195 lb 1.7 oz) 02/22/19 0500 90.1 kg (198 lb 10.2 oz) 02/21/19 0537 92.8 kg (204 lb 9.4 oz) 02/20/19 0600 94.3 kg (207 lb 14.3 oz) Admission weight: Weight: 95.3 kg (210 lb) Physical Exam: General: Alert, oriented, in no acute distress, resting in chair Heart: RRR No murmur Lungs: CTA b/l Dim bases. Abdomen: Soft, nondistended, nontender Extremities: Well perfused, mild LE edema Musculoskeletal: no deformities or significant abnormalities Neurological: No gross focal motor or sensory deficits Skin: No rash or lesions. Mid-sternal incision dressing is C/D/I. Chest tube removed inci jennifer C/D/I. Pacing wires removed EVH incisions C/D/I. DATA: Scheduled Medications aspirin 81 mg Oral Daily atorvaSTATin 40 mg Oral Nightly docusate sodium 100 mg Oral BID furosemide 40 mg Oral Daily insulin detemir 5 Units Subcutaneous Nightly insulin lispro 0-14 Units Subcutaneous TID WC losartan 25 mg Oral Daily metoprolol succinate 75 mg Oral Daily warfarin 5 mg Oral Daily - Warfarin warfarin per pharmacy Other Pharmacy Consult Continuous Infusions dextrose 10% heparin infusion 13.1 Units/kg/hr (02/23/19 0741) PRN Medications acetaminophen, albumin, albuterol, bisacodyl, Hypoglycemia Management AND POCT Glucose AND dextrose AND dextrose 10%, HYDROmorphone, Magnesium replacement - NON ICU AND* * Magnesium AND magnesium oxide AND magnesium sulfate AND magnesium sulfate, men thol throat lozenges, ondansetron, oxyCODONE, phenol, polyethylene glycol, Potassium replace ment - NON ICU AND Potassium AND potassium chloride AND potassium chloride AND potassium chloride IVPB (other volumes & diluents) AND potassium chloride IVPB (other volumes & diluents), sodium phosphate HOME MEDS: Prior to Admission medications Medication Sig Start Date End Date Taking? Authorizing Provider amLODIPine (NORVASC) 5 mg tablet Take 5 mg by mouth Daily. Yes Historical Provider, aspirin 81 MG EC tablet Take 81 mg by mouth Daily. Yes Historical Provider, cholecalciferol (CHOLECALCIFEROL) 5000 units TABS Take 1 tablet by mouth Daily. 08/08/18 Dewey Pedraza MD fenofibrate (LOFIBRA, TRIGLIDE) 160 mg tablet Take 160 mg by mouth nightly. Yes Historica l Provider, folic acid 1 mg tablet Take 1 mg by mouth Daily. 07/26/18 Yes Historical Provider, furosemide (LASIX) 40 mg tablet Take 1 tablet by mouth Daily. 11/14/18 Yes Shea Pedraza MD insulin aspart (NOVOLOG) 100 units/mL injection Inject under the skin 3 times daily (befor e meals). Per sliding scale Yes Historical Provider, lisinopril (PRINIVIL, ZESTRIL) 20 mg tablet Take 40 mg by mouth Daily. 06/29/18 Yes Historic al Provider, metoprolol succinate (TOPROL-XL) 100 mg ER tablet Take 100 mg by mouth Daily. Yes Histori pita Provider, nitroglycerin (NITROSTAT) 0.[address] 0.4 mg under the tongue as needed for Ches t pain. Yes Historical Provider, rivaroxaban (XARELTO) 20 mg tablet Take 1 tablet by mouth Daily (with dinner). 09/21/17 Yes Historical Provider, rosuvastatin (CRESTOR) 20 mg tablet Take 20 mg by mouth nightly. Yes Historical Provider, SITagliptin (JANUVIA) 50 MG tablet Take 1 tablet by mouth Daily. 11/14/18 Yes Shea Andrews MD LABS: Recent Labs Lab 02/23/1942302/22/19 0402 02/21/19 0535 WBC 10.49 11.18* 8.93 HGB 11.6* 11.4* 11.1* HCT 34.3* 33.8* 32.7* PLT 507* 409* 329 MONOPCT 8.74 9.97 12.59 Recent Labs Lab 02/23/194 02/22/19 1215 02/22/19 0402 02/21/19 0546 NA 141 -- 140 141 K 3.9 4.0 3.9 4.1 CL 113* -- 109 108 CO2 21* -- 23 26 BUN 28* -- 30* 37* CALCIUM 8.7 -- 8.5 8.3* Phosphorus: Lab Results Component Value Date PHOS 3.7 02/15/2019 No results for input(s): LABALBU in the last 168 hours. Recent Labs Lab 02/23/1942302/22/1940102/21/19 0546 MG 2.0 1.8 2.0 No results for input(s): AMYLASE in the last 168 hours. No results for input(s): PHART, PO2ART, LJF9XDA, C2KDUGOX, BEART in the last 168 hours. Recent Labs Lab 02/23/1942302/22/19 2258 02/22/19 1655 02/22/19 0402 02/21/19 1501 INR 1.2 -- -- -- 1.1 1.1 PTT 56* 50* 41* < > -- -- < > = values in this interval not displayed. No results for input(s): TSH in the last 168 hours. Invalid input(s): T3FREE, FREET4 No results for input(s): TROPONINT in the last 168 hours. Invalid input(s): CKTOTAL, TROPONINI, CKMBINDEX PROBLEM LIST Principal Problem: NSTEMI (non-ST elevated myocardial infarction) Active Problems: A-fib Coronary atherosclerosis DM (diabetes mellitus) CKD (chronic kidney disease) stage 3, GFR 30-59 ml/min Acute coronary syndrome Chest pain Acute on chronic renal failure No components found for: HGBA1C LIPID PANEL Lab Results Component Value Date CHOL 159 02/11/2019 CHOL 84 09/16/2017 HDL 44 02/11/2019 HDL 33 (L) 09/16/2017 LDL 95 02/11/2019 TRIG 100 02/11/2019 KIDNEY TESTS Lab Results Component Value Date CREA 1.4 (H) 02/23/2019 EGFR 53 (L) 02/23/2019 ASSESSMENT & PLAN S/P CABG x 4, EVH HD stable, In SR, On RA Continue IS, PT/OT, cardiopulmonary rehab Lytes & bowel regimen per protocol. Continue GI prophylaxis Acute Coronary Syndrome Continue ASA, Statin, and BB Cardiomyopathy Intra-op EF of 25 - 30% Repeat Echo on 02/21 with LVEF of 30% Continue ASA, Statin, BB. Lisinopril added 02/22 Cardiology consult regarding possible Life Vest. May need AICD placement in future Patient with a history of medical non-compliance. Paroxysmal Atrial Fibrillation Patient with history of PAF On Xarelto prior to CABG Patient in SR throughout post-operative period Coumadin started on 02/21 with goal INR of 2 - 3 LV Thrombus Repeat Echo on 02/21 with LV thrombus Started on Warfarin 02/21 Xarelto deferred due to increased bleeding risks postoperatively Heparin bridge initiated on 02/22- PTT of 56 INR of 1.2 today (02/23) Goal INR of 2 - 3 Acute Surgical Blood Loss Hbg & Hct stable Continue Fe+/Vit C Hypertension Hx of HTN, lisinopril, amlodipine and Toprol XL at home Continue Lisinopril at current dose Chronic Kidney Disease/Acute Kidney Injury Improved Cr Peaked at 2.6 (02/18) Cr 1.4 today (02/23)-->1.3 yesterday (02/22) Baseline Cr of 1.8 Continue home dose of Lasix (40 mg tablet q day) Nephrology following-appreciate recommendations Hold nephrotoxic medications, including SEAN/ARB's Stress Induced Hyperglycemia Off Endotool and on subq insulin Hx of DM, on Lantus and oral medication taken at home A1c of 7.4 Appreciate DM educator assistance Dispo Continue Step Down Unit care. Placement with [facility] pending. Anticipate d ischarge this weekend. Code Status: Full Code The patient has been seen, all new lab results and imaging reviewed, and the plan discussed with the attending provider, SHABBIR Bell 02/23/2019 Associated attestation - Liban Nair MD - 02/23/2019 9:07 AM PDTPatient was seen, exami danis, labs, x-rays, treatment plan reviewed. Meredith Quinones RN - 02/22/2019 6:54 PM PDTPatient started on heparin gtt and bridgi ng to coumadin- tolerating well. Patient having loose stools throughout shift- Dr. Luisana thorpe. No new orders at this time. End of shift chart check complete. Meredith Quinones RN roctor, eCcil Razo RPH - 02/22/2019 3:21 PM PDTFormatting of this note might be different from the origi nal. Pharmacy Warfarin Monitoring: Joselito Robertson male 53 y.o. Pharmacy consulted to dose warfarin per: BELINDA Luna INDICATION: Atrial Fibrillation, LV thrombus OTHER ANTICOAGULATION: heparin drip inpatient (Xarelto listed on [facility] med list) DRUG INTERACTIONS: aspirin and plavix may increase list of bleeding. [facility] med list reviewed and no significant DDI identified. PATIENT DIET: Heart healthy diet Recent Labs Lab 02/22/19 0402 02/21/19 1501 02/21/19 0535 02/20/19 0403 HGB 11.4* -- 11.1* 11.0* PLT 409* -- 329 268 INR 1.1 1.1 -- -- DATE 02/22 02/21 INR 1.1 1.1 Warfarin Dose 5 mg 5 mg Assessment: The INR is Below the target range of 2-3 Continuing the recommended warfarin nomogram dose of 5 mg Plan: 1. Warfarin 5 mg po today 2. INR in am and daily Pharmacy will continue to follow and modify therapy as indication. Meredith Murphy, PharmD, BCPS Douglas Angelo MD - 02/22/2019 1:39 PM PDT [facility] Service: Cardiology Cross coverage for Dr. Canales Progress note Hospital Day: LOS 11 Post-op Day: 7 Days Post-Op Subjective Patient Summary: He denies chest pain, palpitations, increased shortness of breath. He is still somewhat sore in the sternum.Still some fatigue and malaise overall. Occasional dizz iness with positional changes. No near syncope or true syncope. Dyspnea with activities is about the same. Events Overnight: I was asked to reevaluate the patient and Dr. Canales's absence. Echocar diographic studies were repeated yesterday he was found to have evidence of an apical thromb us and EF was felt to be around 30%. Again he has had no major worsening symptoms in terms of heart failure symptomatology or neurologic events but obviously the these findings are co ncerning and warrant consideration of full anticoagulation and consideration of other measur es to prevent sudden . Rhythm at this time is normal sinus rhythm with occasional ecto pics. aspirin 81 mg Oral Daily atorvaSTATin 40 mg Oral Nightly clopidogrel 75 mg Oral Daily docusate sodium 100 mg Oral BID furosemide 40 mg Oral Daily insulin detemir 5 Units Subcutaneous Nightly insulin lispro 0-14 Units Subcutaneous TID WC lisinopril 2.5 mg Oral Daily metoprolol succinate 50 mg Oral Daily warfarin 5 mg Oral Daily - Warfarin warfarin per pharmacy Other Pharmacy Consult PRN Medications: acetaminophen, albumin, albuterol, bisacodyl, Hypoglycemia Management AND POCT Glucose AND dextrose AND dextrose 10%, HYDROmorphone, Magnesium replacement - NON ICU AND* * Magnesium AND magnesium oxide AND magnesium sulfate AND magnesium sulfate, men thol throat lozenges, ondansetron, oxyCODONE, phenol, polyethylene glycol, Potassium replace ment - NON ICU AND Potassium AND potassium chloride AND potassium chloride AND potassium chloride IVPB (other volumes & diluents) AND potassium chloride IVPB (other volumes & diluents), sodium phosphate Current Facilty-Administered PRN Medications Ordered in Epic Medication Dose Route Frequency Provider Last Rate Last Dose acetaminophen (TYLENOL) tablet 650 mg 650 mg Oral Q4H PRN BELINDA Hutson-Giorgi 650 mg at 02/20/192049 albumin 5% IVPB 25 g 25 g Intravenous PRN BELINDA Erickson 500 mL/hr at 02/15/19 30 12.5 g at 02/15/19 193 albuterol 2.5 mg/3 mL nebulizer solution 2.5 mg 2.5 mg Nebulization RT Q4H PRN BELINDA Gamino bisacodyl (DULCOLAX) suppository 10 mg 10 mg Rectal Daily PRN BELINDA Erickson dextrose 50% injection 12.5-25 g 12.5-25 g Intravenous PRN BELINDA Erickson And dextrose 10% (D10W) infusion Intravenous Continuous PRN BELINDA Erickson HYDROmorphone (DILAUDID) injection 0.5-1 mg 0.5-1 mg Intravenous Q2H PRN BELINDA Penny magnesium oxide (MAG-OX) tablet 800 mg 800 mg Oral Daily PRN BELINDA Erickson 800 mg at 02/22/19 0804 And magnesium sulfate 2 g/50 mL IVPB 2 g 2 g Intravenous Daily PRN BELINDA Erickson And magnesium sulfate 4 g/100 mL IVPB 4 g 4 g Intravenous Daily PRN BELINDA Erickson menthol (HALLS) lozenge 1 lozenge 1 lozenge Buccal Q2H PRN BELINDA Erickson ondansetron (ZOFRAN) injection 4 mg 4 mg Intravenous Q6H PRN BELINDA Erickson 4 m g at 02/18/19 0518 oxyCODONE (ROXICODONE) tablet 5-20 mg 5-20 mg Oral Q3H PRN BELINDA Erickson 5 mg at 02/17/19 1855 phenol (CHLORASEPTIC) spray 1-2 spray 1-2 spray Mouth/Throat Q3H PRN BELINDA Erickson polyethylene glycol (MIRALAX) powder 17 g 17 g Oral Daily PRN BELINDA Erickson 17 g at 02/16/19 1025 potassium chloride (KLOR-CON) ER tablet 20-40 mEq 20-40 mEq Oral Daily PRN BELINDA Lyman 20 mEq at 02/22/19 0804 And potassium chloride (KLOR-CON) packet 20-40 mEq 20-40 mEq Per G Tube Daily PRN BELINDA Ruiz And potassium chloride 20 mEq in sodium chloride 0.9% 250 mL IVPB 20 mEq Intravenous Daily PRN BELINDA Erickson And potassium chloride 40 mEq in sodium chloride 0.9% 500 mL IVPB 40 mEq Intravenous Daily PRN BELINDA Erickson sodium phosphate (FLEET) enema 133 mL 133 mL Rectal Once PRN BELINDA Erickson Objective: Vital Signs: BP 128/74 | Pulse 91 | Temp 36.7 C (98 F) (Oral) | Resp 20 | Ht 1.803 m (5' 11") | Wt 90.1 kg (198 lb 10.2 oz) | SpO2 97% | BMI 27.70 kg/m Temp: [36.4 C (97.5 F)-36.8 C (98.3 F)] 36.7 C (98 F) Pulse: [81-97] 91 Resp: [18-20] 20 BP: (116-145)/(65-76) 128/74 Vitals with Comments 02/22/2019 02/22/2019 02/22/2019 02/22/2019 SYSTOLIC - 127 - 128 DIASTOLIC - 65 - 74 Pulse - - 91 - Temp - 97.5 - 98 Temp Comments - - - - Resp - 20 - 20 Weight 198 lbs 10 oz - - - Height - - - - SPO2 - - - 97 BMI - - - - Pain Score - - - - Intake/Output Summary (Last 24 hours) at 02/22/2019 1339 Last data filed at 02/22/2019 0749 Gross per 24 hour Intake 862 ml Output 2300 ml Net -1438 ml First: 95.3 kg (02/11/19 0311)Last: 90.1 kg (02/22/19 0500)Difference: -5.2kg Physical Exam Constitutional: He is oriented to person, place, and time. He is active. He appears toxic. He does not appear ill. No distress. Minimally listless HENT: Head: Normocephalic and atraumatic. Right Ear: External ear normal. Left Ear: External ear normal. Nose: Nose normal. Mouth/Throat: Oropharynx is clear and moist. No oropharyngeal exudate. Eyes: EOM are normal. Right eye exhibits no discharge. Left eye exhibits no discharge. No s cleral icterus. Neck: Neck supple. No JVD (sitting up) present. No tracheal deviation present. No thyromega ly present. Cardiovascular: Normal rate. Extrasystoles (rare) are present. Exam reveals no S3, no dist ant heart sounds, no friction rub and no midsystolic click. Murmur heard. Systolic murmur is present with a grade of 1/6. Pulmonary/Chest: No accessory muscle usage. No tachypnea and no bradypnea. No respiratory d istress. He has decreased breath sounds. He has no wheezes. He has no rhonchi. He has no ral es. He exhibits no tenderness. Sternotomy incision is evident. No erythema or exudate. He is minimally dull at the bases . Abdominal: Bowel sounds are normal. He exhibits no distension. There is no tenderness. Ther e is no rebound and no guarding. Musculoskeletal: He exhibits edema and tenderness. Lymphadenopathy: He has no cervical adenopathy. Neurological: He is oriented to person, place, and time. No cranial nerve deficit. Coordina tion normal. Non-focal weakness lower ext > upper Skin: Skin is warm and dry. He is not diaphoretic. Some chronic skin changes lower extremities. Psychiatric: He has a normal mood and affect. His speech is normal. Thought content normal. He is slowed (Minimally). This is my first evaluation of the patient in terms of cognitive function. I do not apprec iate any evidence of gross cognitive dysfunction at this time. Data: Recent Results (from the past 24 hour(s)) Protime INR Result Value Ref Range INR 1.1 POC Glucose Result Value Ref Range Glucose, POC 212 (H) 65 - 99 mg/dL POC Glucose Result Value Ref Range Glucose, POC 160 (H) 65 - 99 mg/dL Basic Metabolic Panel Result Value Ref Range Na 140 135 - 145 mmol/L K 3.9 3.5 - 4.9 mmol/L Cl 109 99 - 109 mmol/L CO2 23 23 - 32 mmol/L Anion Gap 12 5 - 20 mmol/L Glucose 87 65 - 99 mg/dL BUN 30 (H) 8 - 25 mg/dL Creatinine 1.3 0.70 - 1.30 mg/dL BUN/Creatinine Ratio 23 Calcium 8.5 8.5 - 10.5 mg/dL Estimated GFR 58 (L) >60 mL/min/1.73m2 CBC with Differential Result Value Ref Range WBC 11.18 (H) 3.80 - 11.00 K/uL RBC 3.64 (L) 4.20 - 5.70 M/uL Hemoglobin 11.4 (L) 13.2 - 17.0 g/dL Hematocrit 33.8 (L) 39.0 - 50.0 % MCV 92.8 80.0 - 100.0 fl MCH 31.2 27.0 - 34.0 pg MCHC 33.6 32.0 - 35.5 g/dL RDW-SD 44.6 37 - 53 fl Platelet Count 409 (H) 150 - 400 K/uL MPV 7.4 fl Diff Type AUTOMATED % Neutrophils 74.17 % % Lymphocytes 12.01 % Monocyte % 9.97 % Eosinophils % 3.35 % Basophils % 0.50 % Neutrophils, Absolute 8.29 (H) 1.90 - 7.40 K/uL Absolute Lymphocytes 1.34 1.00 - 3.90 K/uL Absolute Monocytes 1.12 (H) 0.00 - 0.80 K/uL Eosinophils, Absolute 0.38 0.00 - 0.50 K/uL Basophils, Absolute 0.06 0.00 - 0.10 K/uL Magnesium Result Value Ref Range Magnesium 1.8 1.7 - 2.4 mg/dL Protime INR Result Value Ref Range INR 1.1 POC Glucose Result Value Ref Range Glucose, POC 188 (H) 65 - 99 mg/dL PTT Result Value Ref Range PTT 31 23 - 32 seconds POC Glucose Result Value Ref Range Glucose, POC 147 (H) 65 - 99 mg/dL Potassium Result Value Ref Range K 4.0 3.5 - 4.9 mmol/L Problem List: Principal Problem: NSTEMI (non-ST elevated myocardial infarction) Active Problems: A-fib Coronary atherosclerosis DM (diabetes mellitus) CKD (chronic kidney disease) stage 3, GFR 30-59 ml/min Acute coronary syndrome Chest pain Acute on chronic renal failure Ischemic cardiomyopathy. Status post corneal bypass grafting. Apical thrombus at risk for emboli. Low ejection fraction at risk for sudden . Assessment: See problem list Recommendations/Discussion: I have placed an article on the front of his chart that summar izes the use of medicines like Xarelto in the use of left ventricular thrombus and that it i s an acceptable alternative. However, I discussed the case with Dr. Nair who is concerned about his possibility of developing pericardial or pleural effusions that could require int erventions and the difficulty with reversibility of these type of agents and the increased r isk of bleeding. On this basis we will continue warfarin until he reaches a therapeutic INR . I agree with continuing heparin until he does reach a therapeutic INR.Additionally I wish to discuss briefly with Electrophysiology informally for now and see if they agree that th ere should be consideration of a LifeVest. I am going to change his Zestril to losartan. M ay consider changing to Entresto in future. I have discussed the findings of the ultrasound and its implications including the left ventricular thrombus and the low ejection fraction and risk for arrhythmia and sudden with the patient, his sister the phone with the pat ient's permission. And his ex- with the patient's permission. If patient's ejection fr action does not improve on optimal medical management he ultimately may need an AICD. Given that he did not have a stent placed I am going to stop the Generic Plavix for now. Code Status: Full Code Douglas Vargas MD 02/22/19 Stanislav Mckinnon MD - 02/22/2019 12:00 PM PDT Hospital Problem List: Principal Problem: NSTEMI (non-ST elevated myocardial infarction) Active Problems: A-fib Coronary atherosclerosis DM (diabetes mellitus) CKD (chronic kidney disease) stage 3, GFR 30-59 ml/min Acute coronary syndrome Chest pain Acute on chronic renal failure 53 y.o. male admitted with: "NSTEMI (non-ST elevated myocardial infarction) (HCC)" presente d with "Chest Pain" NEPHROLOGY CONSULTED FOR EVALUATION AND MANAGEMENT OF ARF on CKD ACUTE on CHRONIC moderate to severe ASSOCIATED WITH FLUID ELECTROLYTE IMBALANCES RF: AKIpost cabg likely hemodynamic Patient seen and examined Feels better, cr down to 1.3 Good uop Denies cp, sob, nausea, vomiting, diarrhea, fever, headache The following portions of the patient's history were reviewed and updated as appropriate: l aboratory data, radiologic studies, allergies, current medications, and problem list. aspirin 81 mg Oral Daily atorvaSTATin 40 mg Oral Nightly docusate sodium 100 mg Oral BID furosemide 40 mg Oral Daily insulin detemir 5 Units Subcutaneous Nightly insulin lispro 0-14 Units Subcutaneous TID WC [START ON 02/23/2019] losartan 25 mg Oral Daily metoprolol succinate 50 mg Oral Daily current Meds: dextrose 10% heparin infusion 11.1 Units/kg/hr (02/22/19 1107) P.E. Vs: reviewed BP 128/74 | Pulse 91 | Temp 36.7 C (98 F) (Oral) | Resp 20 | Ht 1.803 m (5' 11") | Wt 90.1 kg (198 lb 10.2 oz) | SpO2 97% | BMI 27.70 kg/m General appearance:sitting in chair in no distress, awake and alert HEENT:+ve pale conjunctiva Lungs:Decrease bs at bases,no respiratory distress. Chest incision c/d/i Heart:s1 s2 norub. Abdominal exam: Soft,Non-tender. Extremities:+ve LEedema Neurological:no gross focal motor deficit noted Recent Labs 02/22/19 1215 02/22/19 0402 02/21/19 0546 02/21/19 0535 02/20/19 0403 BUN -- 30* 37* -- 47* CREA -- 1.3 1.4* -- 1.7* EGFR -- 58* 53* -- 43* NA -- 140 141 -- 141 K 4.0 3.9 4.1 -- 4.1 CL -- 109 108 -- 107 CO2 -- 23 26 -- 26 CALCIUM -- 8.5 8.3* -- 8.3* MG -- 1.8 2.0 -- 2.2 HGB -- 11.4* -- 11.1* 11.0* HCT -- 33.8* -- 32.7* 32.6* I/O last 3 completed shifts: In: 640 [P.O.:640] Out: 3125 [Urine:3125] I/O this shift: In: 222 [P.O.:222] Out: 200 [Urine:200] Assessment: AKIpost cabg likely hemodynamic 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) is possible has moderate proteinuria met acidosis resolved Corrected ca is ok Anemiapost cabg Improving Edema / volume overload Improving HypernatremiaImproved HyperkalemiaImproved Recommendations: Cr down to1.3, improving renal function Good uop AKIpost cabg likely hemodynamic Watch renal function closely Keep MAP Greater than 70 mm Hg for renal perfusion Optimize renal perfusion pressure RPP = MAP-CVP improved na level low sodium in the diet stressed Continue Lasix40 mg daily, diuresing well Low k diet Keep off Amlodipine (periph edema) Monitor VS closely & frequently Reinforce lytes protocol Strict I/O & daily weights. Dose all ofmeds to hiscurrent eGFR. Avoid all kinds of nephrotoxins. Target euvolumia with a MAP>70 mmHg as possible. CASE DISCUSSED IN DETAIL WITH PATIENT/ care team ct sx Montserrat Khan, ANSWERS ALL QUES TIONS IN DETAIL, VERBALIZES UNDERSTANDING WILL SIGN OFF, CALL US PRN FOR ANY QUESTIONS, THANKS FOR THE CONSULT Stanislav Patricio MD omi Garcia ARNP - 02/22/2019 7:48 AM PDT [facility] Service: Cardiothoracic Surgery Progress Note ROOM: [facility]/[address] [place] [address] Hospital Day: LOS: 11 days Post-Op Day: 7 Days Post-Op Surgery/Procedure: 02/15/19, Dr Nair 1. Urgent coronary artery bypass grafting times 4; left internal mammary artery to left an terior descending; saphenous vein graft to diagonal; saphenous vein graft to ramus intermedi us; saphenous vein graft to obtuse marginal. 2. Endoscopic vein harvesting. SUBJECTIVE Events Overnight: Remains in SR, on RA. Afebrile. Pain well controlled. Blood sugar i mproved with administration of basal insulin. UOP: 1.2 L/12 hrs; 2.3 L/[address]: Removed BM: x 6/24 hrs OBJECTIVE Vital Signs: BP 127/65 | Pulse 84 | Temp 36.4 C (97.5 F) (Oral) | Resp 20 | Ht 1.803 m (5' 11") | Wt 90.1 kg (198 lb 10.2 oz) | SpO2 95% | BMI 27.70 kg/m Current weight: Patient Vitals for the past 96 hrs: Weight 02/22/19 0500 90.1 kg (198 lb 10.2 oz) 02/21/19 0537 92.8 kg (204 lb 9.4 oz) 02/20/19 0600 94.3 kg (207 lb 14.3 oz) 02/19/19 0616 98.2 kg (216 lb 7.9 oz) Admission weight: Weight: 95.3 kg (210 lb) Physical Exam: General: Alert, oriented, in no acute distress, resting in chair Heart: RRR No murmur Lungs: CTA b/l Dim bases. Abdomen: Soft, nondistended, nontender Extremities: Well perfused, mild LE edema Musculoskeletal: no deformities or significant abnormalities Neurological: No gross focal motor or sensory deficits Skin: No rash or lesions. Mid-sternal incision dressing is C/D/I. Chest tube removed inci jennifer C/D/I. Pacing wires removed EVH incisions C/D/I. DATA: Scheduled Medications aspirin 81 mg Oral Daily atorvaSTATin 40 mg Oral Nightly clopidogrel 75 mg Oral Daily docusate sodium 100 mg Oral BID furosemide 40 mg Oral Daily insulin detemir 5 Units Subcutaneous Nightly insulin lispro 0-14 Units Subcutaneous TID WC lisinopril 2.5 mg Oral Daily metoprolol succinate 50 mg Oral Daily warfarin 5 mg Oral Daily - Warfarin warfarin per pharmacy Other Pharmacy Consult Continuous Infusions dextrose 10% PRN Medications acetaminophen, albumin, albuterol, bisacodyl, Hypoglycemia Management AND POCT Glucose AND dextrose AND dextrose 10%, HYDROmorphone, Magnesium replacement - NON ICU AND* * Magnesium AND magnesium oxide AND magnesium sulfate AND magnesium sulfate, men thol throat lozenges, ondansetron, oxyCODONE, phenol, polyethylene glycol, Potassium replace ment - NON ICU AND Potassium AND potassium chloride AND potassium chloride AND potassium chloride IVPB (other volumes & diluents) AND potassium chloride IVPB (other volumes & diluents), sodium phosphate HOME MEDS: Prior to Admission medications Medication Sig Start Date End Date Taking? Authorizing Provider amLODIPine (NORVASC) 5 mg tablet Take 5 mg by mouth Daily. Yes Historical Provider, aspirin 81 MG EC tablet Take 81 mg by mouth Daily. Yes Historical Provider, cholecalciferol (CHOLECALCIFEROL) 5000 units TABS Take 1 tablet by mouth Daily. 08/08/18 Ye s Shea Pedraza MD fenofibrate (LOFIBRA, TRIGLIDE) 160 mg tablet Take 160 mg by mouth nightly. Yes Historica l Provider, folic acid 1 mg tablet Take 1 mg by mouth Daily. 07/26/18 Yes Historical Provider, furosemide (LASIX) 40 mg tablet Take 1 tablet by mouth Daily. 11/14/18 Yes Shea Pedraza MD insulin aspart (NOVOLOG) 100 units/mL injection Inject under the skin 3 times daily (befor e meals). Per sliding scale Yes Historical Provider, lisinopril (PRINIVIL, ZESTRIL) 20 mg tablet Take 40 mg by mouth Daily. 06/29/18 Yes Historic al Provider, metoprolol succinate (TOPROL-XL) 100 mg ER tablet Take 100 mg by mouth Daily. Yes Histori pita Provider, nitroglycerin (NITROSTAT) 0.[address] 0.4 mg under the tongue as needed for Ches t pain. Yes Historical Provider, rivaroxaban (XARELTO) 20 mg tablet Take 1 tablet by mouth Daily (with dinner). 09/21/17 Yes Historical Provider, rosuvastatin (CRESTOR) 20 mg tablet Take 20 mg by mouth nightly. Yes Historical Provider, SITagliptin (JANUVIA) 50 MG tablet Take 1 tablet by mouth Daily. 11/14/18 Yes Shea Andrews MD LABS: Recent Labs Lab 02/22/19 0402 02/21/19 0535 02/20/19 0403 WBC 11.18* 8.93 9.11 HGB 11.4* 11.1* 11.0* HCT 33.8* 32.7* 32.6* PLT 409* 329 268 MONOPCT 9.97 12.59 11.07 Recent Labs Lab 02/22/19 0402 02/21/19 0546 02/20/19 0403 NA 140 141 141 K 3.9 4.1 4.1 CL 109 108 107 CO2 23 26 26 BUN 30* 37* 47* CALCIUM 8.5 8.3* 8.3* Phosphorus: Lab Results Component Value Date PHOS 3.7 02/15/2019 No results for input(s): LABALBU in the last 168 hours. Recent Labs Lab 02/22/19 0402 02/21/19 0546 02/20/19 0403 MG 1.8 2.0 2.2 No results for input(s): AMYLASE in the last 168 hours. Recent Labs Lab 02/15/19 2329 02/15/19200202/15/19 1819 PHART 7.383 7.329* 7.309* PO2ART 94 94 83 [id number] 39 43 39 [id number] 97 97 95 Recent Labs Lab 02/22/19 0402 02/21/19 1501 02/15/19 1345 INR 1.1 1.1 1.2 PTT -- -- 26 No results for input(s): TSH in the last 168 hours. Invalid input(s): T3FREE, FREET4 No results for input(s): TROPONINT in the last 168 hours. Invalid input(s): CKTOTAL, TROPONINI, CKMBINDEX PROBLEM LIST Principal Problem: NSTEMI (non-ST elevated myocardial infarction) Active Problems: A-fib Coronary atherosclerosis DM (diabetes mellitus) CKD (chronic kidney disease) stage 3, GFR 30-59 ml/min Acute coronary syndrome Chest pain Acute on chronic renal failure No components found for: HGBA1C LIPID PANEL Lab Results Component Value Date CHOL 159 02/11/2019 CHOL 84 09/16/2017 HDL 44 02/11/2019 HDL 33 (L) 09/16/2017 LDL 95 02/11/2019 TRIG 100 02/11/2019 KIDNEY TESTS Lab Results Component Value Date CREA 1.3 02/22/2019 EGFR 58 (L) 02/22/2019 ASSESSMENT & PLAN S/P CABG x 4, EVH HD stable, In SR, On RA Continue IS, PT/OT, cardiopulmonary rehab Lytes & bowel regimen per protocol. Continue GI prophylaxis Acute Coronary Syndrome Continue ASA, Statin, BB and Plavix. Cardiomyopathy Intra-op EF of 25 - 30% Repeat Echo on 02/21 with LVEF of 30% Continue ASA, Statin, BB. Lisinopril added 02/22 Cardiology consult regarding possible Life Vest and optimal anticoag options. Discussed with Dr. Vargas who is covering for Dr. Ravage-will evaluate patient Patient with a history of medical non-compliance. Paroxysmal Atrial Fibrillation Patient with history of PAF On Xarelto prior to CABG Patient in SR throughout post-operative period Coumadin started on 02/21 with goal INR of 2 - 3 LV Thrombus Repeat Echo on 02/21 with LV thrombus Started on Warfarin 02/21 Goal INR of 2 - 3 Acute Surgical Blood Loss Hbg & Hct improved Continue Fe+/Vit C Hypertension Hx of HTN, lisinopril, amlodipine and Toprol XL at home Will start on low dose Lisinopril 2.5 mg today Chronic Kidney Disease/Acute Kidney Injury Improved Cr Peaked at 2.6 (02/18); cr 1.4 today (02/21). Baseline Cr of 1.8 Continue home dose of Lasix (40 mg tablet q day) Nephrology following-appreciate recommendations Hold nephrotoxic medications, including SEAN/ARB's Stress Induced Hyperglycemia Off Endotool and on subq insulin Per JUN, patient has not received basal insulin for the past 48 hours. Reason for medicati on withholding is unknown Hx of DM, on Lantus and oral medication taken at home A1c of 7.4 Consult placed for DM educator Dispo Continue Cardiac Unit care for now. Placement with [facility] pending. Antici fleming discharge on 02/22. Code Status: Full Code The patient has been seen, all new lab results and imaging reviewed, and the plan discussed with the attending provider, Dr. Luisana GARCIA, SHABBIR 02/22/2019 Associated attestation - Liban Nair MD - 02/22/2019 9:42 AM PDTPatient was seen, exami danis, labs, x-rays, treatment plan reviewed. Omar Lacey RN - 02/22/2019 5:36 AM PDTNo acute events, VSS. Chart check complete. Leisa Olson RN - 02/21/2019 8:06 PM PDTEnd of shift chart check complet e. Leisa Wolf RN Stanislav Mckinnon MD - 02/21/2019 5:21 PM PDT Hospital Problem List: Principal Problem: NSTEMI (non-ST elevated myocardial infarction) Active Problems: A-fib Coronary atherosclerosis DM (diabetes mellitus) CKD (chronic kidney disease) stage 3, GFR 30-59 ml/min Acute coronary syndrome Chest pain Acute on chronic renal failure 53 y.o. male admitted with: "NSTEMI (non-ST elevated myocardial infarction) (HCC)" present ed with "Chest Pain" NEPHROLOGY CONSULTED FOR EVALUATION AND MANAGEMENT OF ARF on CKD ACUTE on CHRONIC moderate to severe ASSOCIATED WITH FLUID ELECTROLYTE IMBALANCES RF: likely hemodynamic in the setting of NSTEMI/ diuresis on presentation. Patient seen and examined Says feel weak, cr down to 1.4 Incision Pain controlled No urinary symptoms Denies cp, sob, nausea, vomiting, diarrhea, fever, headache The following portions of the patient's history were reviewed and updated as appropriate: l aboratory data, radiologic studies, allergies, current medications, and problem list. aspirin 81 mg Oral Daily atorvaSTATin 40 mg Oral Nightly clopidogrel 75 mg Oral Daily docusate sodium 100 mg Oral BID furosemide 40 mg Oral Daily insulin detemir 10 Units Subcutaneous Nightly insulin lispro 0-14 Units Subcutaneous TID WC metoprolol tartrate 50 mg Oral BID warfarin 5 mg Oral Daily - Warfarin warfarin per pharmacy Other Pharmacy Consult current Meds: dextrose 10% P.E. Vs: reviewed BP 145/70 | Pulse 90 | Temp 36.8 C (98.2 F) (Oral) | Resp 18 | Ht 1.803 m (5' 11") | Wt 92.8 kg (204 lb 9.4 oz) | SpO2 96% | BMI 28.53 kg/m General appearance:sitting in chair comfortably, answering appropriately, awake and alert HEENT:+ve pale conjunctiva Lungs:Decrease bs at bases, no respiratory distress. Chest incision dressed Heart:s1 s2 norub. Abdominal exam: Soft,Non-tender. Extremities:+ve LEedema, Right leg dressed Neurological:no gross focal motor deficit noted +ve graff in place Recent Labs 02/21/19 0546 02/21/19 0535 02/20/19 0403 02/19/19 0412 BUN 37* -- 47* 55* CREA 1.4* -- 1.7* 2.0* EGFR 53* -- 43* 35* NA 141 -- 141 140 K 4.1 -- 4.1 4.4 CL 108 -- 107 108 CO2 26 -- 26 23 CALCIUM 8.3* -- 8.3* 8.1* MG 2.0 -- 2.2 2.6* HGB -- 11.1* 11.0* 10.3* HCT -- 32.7* 32.6* 29.9* I/O last 3 completed shifts: In: 1060 [P.O.:1060] Out: 3915 [Urine:3915] I/O this shift: In: 300 [P.O.:300] Out: 1100 [Urine:1100] Assessment: a53 y.o.malepatientwith JAMESON (acute kidney injury), that is hemod ynamicin the setting of NSTEMI&some diuresis on presentation. The most likely patholog y here is that ofa mild vasomotor injury. 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) is possible has moderate proteinuria hyperK met acidosis Corrected ca is ok Anemiapost cabg Edema / volume overload HypernatremiaImproving HyperkalemiaImproving Recommendations: Cr down to 1.4, slowly improving renal function Good uop AKIpost cabg likely hemodynamic Watch renal function closely Keep MAP Greater than 70 mm Hg for renal perfusion Optimize renal perfusion pressure RPP = MAP-CVP FREE WATER DEFICIT,improved na level Increase water intake low sodium in the diet stressed Lasix 40 mg daily, diuresing well Low k diet Keep off Amlodipine (periph edema) Monitor VS closely & frequently Reinforce lytes protocol Strict I/O & daily weights. Dose all ofmeds to hiscurrent eGFR. Avoid all kinds of nephrotoxins. Target euvolumia with a MAP>70 mmHg as possible. CASE DISCUSSED IN DETAIL WITH PATIENT/ care team, ANSWERS ALL QUESTIONS IN DETAIL, VERBALIZ ES UNDERSTANDING Stanislav Patricio MD roctor, Meredith Razo RP H - 02/21/2019 3:08 PM PDT Pharmacy Warfarin Monitoring: Joselito Robertson male 53 y.o. Pharmacy consulted to dose warfarin per: BELINDA Luna INDICATION: Atrial Fibrillation OTHER ANTICOAGULATION: none inpatient (Xarelto listed on [facility] med list) DRUG INTERACTIONS: aspirin and plavix may increase list of bleeding. [facility] med list reviewed and no significant DDI identified. PATIENT DIET: Heart healthy diet Recent Labs Lab 02/21/19 0535 02/20/19 0403 02/19/19 0412 02/15/19 1345 02/15/19 0549 HGB 11.1* 11.0* 10.3* < > 12.8* < > 11.7* PLT 329 268 182 < > 131* -- 239 INR -- -- -- -- 1.2 -- 1.0 < > = values in this interval not displayed. DATE 02/21 INR - Warfarin Dose 5 mg planned Assessment: The INR is Below the target range of 2-3 Initiating the recommended warfarin nomogram dose of 5 mg Plan: 1. Warfarin 5 mg po today 2. INR in am and daily Pharmacy will continue to follow and modify therapy as indication. Meredith Murphy, PharmD, BCPS Montserrat Mott PA-Giorgi - 02/21/2019 11:50 AM PDTFormatting of this note might be different from the shaggy montelongo [facility] Service: Cardiothoracic Surgery Progress Note ROOM: [address] [place] [address] Hospital Day: LOS: 10 days Post-Op Day: 6 Days Post-Op Surgery/Procedure: 02/15/19, Dr Nair 1. Urgent coronary artery bypass grafting times 4; left internal mammary artery to left an terior descending; saphenous vein graft to diagonal; saphenous vein graft to ramus intermedi us; saphenous vein graft to obtuse marginal. 2. Endoscopic vein harvesting. SUBJECTIVE Events Overnight: No issues overnight. On RA, in SR. Afebrile. Pain well controlled UOP: 825 mL/12 hrs; 2.7 L/[address]: Removed OBJECTIVE Vital Signs: BP 131/66 | Pulse 91 | Temp 36.7 C (98 F) (Oral) | Resp 16 | Ht 1.803 m (5' 11") | Wt 92.8 kg (204 lb 9.4 oz) | SpO2 98% | BMI 28.53 kg/m Current weight: Patient Vitals for the past 96 hrs: Weight 02/21/19 0537 92.8 kg (204 lb 9.4 oz) 02/20/19 0600 94.3 kg (207 lb 14.3 oz) 02/19/19 0616 98.2 kg (216 lb 7.9 oz) 02/18/19 0556 99.5 kg (219 lb 5.7 oz) Admission weight: Weight: 95.3 kg (210 lb) Physical Exam: General: Alert, oriented, in no acute distress, resting in chair Heart: RRR No murmur Lungs: CTA b/l Dim bases. Abdomen: Soft, nondistended, nontender Extremities: Well perfused, mild LE edema Musculoskeletal: no deformities or significant abnormalities Neurological: No gross focal motor or sensory deficits Skin: No rash or lesions. Mid-sternal incision dressing is C/D/I. Chest tube removed inci jennifer C/D/I. Pacing wires removed EVH incisions C/D/I. DATA: Scheduled Medications aspirin 81 mg Oral Daily atorvaSTATin 40 mg Oral Nightly clopidogrel 75 mg Oral Daily docusate sodium 100 mg Oral BID furosemide 40 mg Oral Daily insulin detemir 10 Units Subcutaneous Nightly insulin lispro 0-14 Units Subcutaneous TID WC metoprolol tartrate 50 mg Oral BID Continuous Infusions dextrose 10% PRN Medications acetaminophen, albumin, albuterol, bisacodyl, Hypoglycemia Management AND POCT Glucose AND dextrose AND dextrose 10%, HYDROmorphone, Magnesium replacement - NON ICU AND* * Magnesium AND magnesium oxide AND magnesium sulfate AND magnesium sulfate, men thol throat lozenges, ondansetron, oxyCODONE, phenol, polyethylene glycol, Potassium replace ment - NON ICU AND Potassium AND potassium chloride AND potassium chloride AND potassium chloride IVPB (other volumes & diluents) AND potassium chloride IVPB (other volumes & diluents), sodium phosphate HOME MEDS: Prior to Admission medications Medication Sig Start Date End Date Taking? Authorizing Provider amLODIPine (NORVASC) 5 mg tablet Take 5 mg by mouth Daily. Yes Historical Provider, aspirin 81 MG EC tablet Take 81 mg by mouth Daily. Yes Historical Provider, cholecalciferol (CHOLECALCIFEROL) 5000 units TABS Take 1 tablet by mouth Daily. 08/08/18 Dewey Pedraza MD fenofibrate (LOFIBRA, TRIGLIDE) 160 mg tablet Take 160 mg by mouth nightly. Yes Historica l Provider, folic acid 1 mg tablet Take 1 mg by mouth Daily. 07/26/18 Yes Historical Provider, furosemide (LASIX) 40 mg tablet Take 1 tablet by mouth Daily. 11/14/18 Yes Shea Pedraza MD insulin aspart (NOVOLOG) 100 units/mL injection Inject under the skin 3 times daily (befor e meals). Per sliding scale Yes Historical Provider, lisinopril (PRINIVIL, ZESTRIL) 20 mg tablet Take 40 mg by mouth Daily. 06/29/18 Yes Historic al Provider, metoprolol succinate (TOPROL-XL) 100 mg ER tablet Take 100 mg by mouth Daily. Yes Histori pita Provider, nitroglycerin (NITROSTAT) 0.[address] 0.4 mg under the tongue as needed for Ches t pain. Yes Historical Provider, rivaroxaban (XARELTO) 20 mg tablet Take 1 tablet by mouth Daily (with dinner). 09/21/17 Yes Historical Provider, rosuvastatin (CRESTOR) 20 mg tablet Take 20 mg by mouth nightly. Yes Historical Provider, SITagliptin (JANUVIA) 50 MG tablet Take 1 tablet by mouth Daily. 11/14/18 Yes Shea Andrews MD LABS: Recent Labs Lab 02/21/19 0535 02/20/19 0403 02/19/19 0412 WBC 8.93 9.11 11.44* HGB 11.1* 11.0* 10.3* HCT 32.7* 32.6* 29.9* PLT 329 268 182 MONOPCT 12.59 11.07 8.13 Recent Labs Lab 02/21/19 0546 02/20/19 0403 02/19/19 0412 NA 141 141 140 K 4.1 4.1 4.4 CL 108 107 108 CO2 26 26 23 BUN 37* 47* 55* CALCIUM 8.3* 8.3* 8.1* Phosphorus: Lab Results Component Value Date PHOS 3.7 02/15/2019 No results for input(s): LABALBU in the last 168 hours. Recent Labs Lab 02/21/19 0546 02/20/19 0403 02/19/19 0412 MG 2.0 2.2 2.6* No results for input(s): AMYLASE in the last 168 hours. Recent Labs Lab 02/15/19 2329 02/15/19200202/15/19 181 PHART 7.383 7.329* 7.309* PO2ART 94 94 83 [id number] 39 43 39 [id number] 97 97 95 Recent Labs Lab 02/15/19 1345 02/15/19 0549 02/14/19 2309 INR 1.2 1.0 -- PTT 26 64* 52* No results for input(s): TSH in the last 168 hours. Invalid input(s): T3FREE, FREET4 No results for input(s): TROPONINT in the last 168 hours. Invalid input(s): CKTOTAL, TROPONINI, CKMBINDEX PROBLEM LIST Principal Problem: NSTEMI (non-ST elevated myocardial infarction) Active Problems: A-fib Coronary atherosclerosis DM (diabetes mellitus) CKD (chronic kidney disease) stage 3, GFR 30-59 ml/min Acute coronary syndrome Chest pain Acute on chronic renal failure No components found for: HGBA1C LIPID PANEL Lab Results Component Value Date CHOL 159 02/11/2019 CHOL 84 09/16/2017 HDL 44 02/11/2019 HDL 33 (L) 09/16/2017 LDL 95 02/11/2019 TRIG 100 02/11/2019 KIDNEY TESTS Lab Results Component Value Date CREA 1.4 (H) 02/21/2019 EGFR 53 (L) 02/21/2019 ASSESSMENT & PLAN S/P CABG x 4, EV[facility] HD stable off gtts. In SR, On RA Continue IS, PT/OT, cardiopulmonary rehab Lytes & bowel regimen per protocol. Continue GI prophylaxis Acute Coronary Syndrome Continue ASA, Statin, BB and Plavix. Cardiomyopathy Intra-op EF of 25 - 30% Repeat Echo requested today with potential Cardiology Consult pending results Paroxysmal Atrial Fibrillation Patient with history of PAF On Xarelto prior to CABG Patient in SR throughout post-operative period Will reinitiate AOC prior to discharge Acute Surgical Blood Loss Hbg & Hct stable Continue Fe+/Vit C Hypertension Hx of HTN, lisinopril, amlodipine and Toprol XL at home Currently normotensive - will add in home meds when BP tolerates Chronic Kidney Disease/Acute Kidney Injury Improved Cr Peaked at 2.6 (02/18); cr 1.4 today (02/21). Baseline Cr of 1.8 Continue home dose of Lasix (40 mg tablet q day) Nephrology following-appreciate recommendations Hold nephrotoxic medications, including SEAN/ARB's Stress Induced Hyperglycemia Off Endotool and on subq insulin Per JUN, patient has not received basal insulin for the past 48 hours. Reason for medicati on withholding is unknown Hx of DM, on Lantus and oral medication taken at home A1c of 7.4 Consult placed for DM educator Dispo Continue Cardiac Unit care for now. Placement with [facility] pending. Antici fleming discharge on 02/22. Code Status: Full Code The patient has been seen, all new lab results and imaging reviewed, and the plan discussed with the attending provider, Dr. Luisana KHAN PA-C 02/21/2019 Associated attestation - Liban Nair MD - 02/21/2019 2:22 PM PDTPatient was seen, exami danis, labs, x-rays, treatment plan reviewed. Stanislav Patricio MD - 02/20/2019 11:23 PM PDTFormatting of this note might be different from t migel original. Hospital Problem List: Principal Problem: NSTEMI (non-ST elevated myocardial infarction) Active Problems: A-fib Coronary atherosclerosis DM (diabetes mellitus) CKD (chronic kidney disease) stage 3, GFR 30-59 ml/min Acute coronary syndrome Chest pain Acute on chronic renal failure 53 y.o. male admitted with: "NSTEMI (non-ST elevated myocardial infarction) (HCC)". -He pre sented with: "Chest Pain" NEPHROLOGY CONSULTED FOR EVALUATION AND MANAGEMENT OF ARF on CKD ACUTE on CHRONIC moderate to severe ASSOCIATED WITH FLUID ELECTROLYTE IMBALANCES RF: likely hemodynamic in the setting of NSTEMI/ diuresis on presentation. Patient seen and examined Says feel weak, improving renal function, cr down to 1.7 No urinary symptoms Denies cp, sob, nausea, vomiting, diarrhea, fever, headache The following portions of the patient's history were reviewed and updated as appropriate: l aboratory data, radiologic studies, allergies, current medications, and problem list. aspirin 81 mg Oral Daily atorvaSTATin 40 mg Oral Nightly clopidogrel 75 mg Oral Daily docusate sodium 100 mg Oral BID furosemide 40 mg Oral Daily insulin detemir 10 Units Subcutaneous Nightly insulin lispro 0-14 Units Subcutaneous TID WC [START ON 02/21/2019] metoprolol tartrate 50 mg Oral BID current Meds: dextrose 10% P.E. Vs: reviewed BP 112/66 | Pulse 78 | Temp 36.9 C (98.4 F) (Oral) | Resp 16 | Ht 1.803 m (5' 11") | Wt 94.3 kg (207 lb 14.3 oz) | SpO2 95% | BMI 29.00 kg/m General appearance:sitting in chair in no distress, awake and alert HEENT:+ve pale conjunctiva Lungs:Decrease bs at bases, no respiratory distress. Chest incision dressed Heart:s1 s2 norub. Abdominal exam: Soft,Non-tender. +veCT tube in place Extremities:+ve LEedema, Right leg dressed Neurological:no gross focal motor deficit noted +ve graff in place Recent Labs 02/20/19 0403 02/19/19 0412 02/18/19 0408 BUN 47* 55* 64* CREA 1.7* 2.0* 2.6* EGFR 43* 35* 26* NA 141 140 139 K 4.1 4.4 5.2* CL 107 108 109 CO2 26 23 26 CALCIUM 8.3* 8.1* 7.9* MG 2.2 2.6* 3.0* HGB 11.0* 10.3* 9.9* HCT 32.6* 29.9* 29.8* I/O last 3 completed shifts: In: 1176 [P.O.:1176] Out: 5790 [Urine:5790] I/O this shift: In: - Out: 350 [Urine:350] Assessment: a53 y.o.malepatientwith JAMESON (acute kidney injury), that is hemod ynamicin the setting of NSTEMI&some diuresis on presentation. The most likely patholog y here is that ofa mild vasomotor injury. 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) is possible has moderate proteinuria hyperK met acidosis Corrected ca is ok Anemiapost cabg Edema / volume overload HypernatremiaImproving Hyperkalemia Improving Recommendations: Cr down to 1.7, slowly improving renal function AKIpost cabg likely hemodynamic Watch renal function closely Keep MAP Greater than 70 mm Hg for renal perfusion Optimize renal perfusion pressure RPP = MAP-CVP FREE WATER DEFICIT,improving na level Increase water intake low sodium in the diet stressed Lasix 40 mg daily, diuresing well Low k diet Keep off Amlodipine (periph edema) Monitor VS closely & frequently Reinforce lytes protocol Strict I/O & daily weights. Dose all ofmeds to hiscurrent eGFR. Avoid all kinds of nephrotoxins. Target euvolumia with a MAP>70 mmHg as possible. CASE DISCUSSED IN DETAIL WITH PATIENT/ care team, ANSWERS ALL QUESTIONS IN DETAIL, VERBALIZ ES UNDERSTANDING Stanislav Patricio MD Leisa Flower RN - 02/20/2019 6:54 PM PDTEnd of shift chart check complete. Leisa Wolf RN Rima Mott PA-C - 02/20/2019 9:30 AM PDT [facility] Service: Cardiothoracic Surgery Progress Note ROOM: 9103/9103-01 Hospital Day: LOS: 9 days Post-Op Day: 5 Days Post-Op Surgery/Procedure: 02/15/19, Dr Nair 1. Urgent coronary artery bypass grafting times 4; left internal mammary artery to left an terior descending; saphenous vein graft to diagonal; saphenous vein graft to ramus intermedi us; saphenous vein graft to obtuse marginal. 2. Endoscopic vein harvesting. SUBJECTIVE Events Overnight: No issues overnight. On RA, in SR. Afebrile. Pain well controlled UOP: 1.2 L/12 hrs; 3.9 L/[address]: Removed OBJECTIVE Vital Signs: BP 116/63 | Pulse 85 | Temp 36.7 C (98 F) (Oral) | Resp 16 | Ht 1.803 m (5' 11") | Wt 94.3 kg (207 lb 14.3 oz) | SpO2 94% | BMI 29.00 kg/m Current weight: Patient Vitals for the past 96 hrs: Weight 02/20/19 0600 94.3 kg (207 lb 14.3 oz) 02/19/19 0616 98.2 kg (216 lb 7.9 oz) 02/18/19 0556 99.5 kg (219 lb 5.7 oz) 02/17/19 0400 99.8 kg (220 lb 0.3 oz) Admission weight: Weight: 95.3 kg (210 lb) Physical Exam: General: Alert, oriented, in no acute distress, resting in chair Heart: RRR No murmur Lungs: CTA b/l Dim bases. Abdomen: Soft, nondistended, nontender Extremities: Well perfused, +1 LE edema Musculoskeletal: no deformities or significant abnormalities Neurological: No gross focal motor or sensory deficits Skin: No rash or lesions. Mid-sternal incision dressing is C/D/I. Chest tube removed inci jennifer C/D/I. Pacing wires removed EVH incisions C/D/I. DATA: Scheduled Medications acetaminophen 1,000 mg Oral 3 times per day aspirin 81 mg Oral Daily atorvaSTATin 40 mg Oral Nightly clopidogrel 75 mg Oral Daily docusate sodium 100 mg Oral BID furosemide 20 mg Intravenous BID (8 and 16) insulin detemir 13 Units Subcutaneous Nightly insulin lispro 0-14 Units Subcutaneous TID insulin lispro 0-7 Units Subcutaneous Nightly insulin lispro 3 Units Subcutaneous TID metoprolol tartrate 25 mg Oral BID Continuous Infusions dextrose 10% PRN Medications albumin, albuterol, aspirin, bisacodyl, Hypoglycemia Management AND POCT Glucose AND* * dextrose AND dextrose 10%, HYDROmorphone, Magnesium replacement - NON ICU AND Magn esium AND magnesium oxide AND magnesium sulfate AND magnesium sulfate, menthol t hroat lozenges, ondansetron, oxyCODONE, phenol, polyethylene glycol, Potassium replacement - NON ICU AND Potassium AND potassium chloride AND potassium chloride AND pot assium chloride IVPB (other volumes & diluents) AND potassium chloride IVPB (other volum es & diluents), sodium phosphate HOME MEDS: Prior to Admission medications Medication Sig Start Date End Date Taking? Authorizing Provider amLODIPine (NORVASC) 5 mg tablet Take 5 mg by mouth Daily. Yes Historical Provider, aspirin 81 MG EC tablet Take 81 mg by mouth Daily. Yes Historical Provider, cholecalciferol (CHOLECALCIFEROL) 5000 units TABS Take 1 tablet by mouth Daily. 08/08/18 Dewey s Shea Pedraza MD fenofibrate (LOFIBRA, TRIGLIDE) 160 mg tablet Take 160 mg by mouth nightly. Yes Historica l ProviderMD folic acid 1 mg tablet Take 1 mg by mouth Daily. 07/26/18 Yes Historical Provider, furosemide (LASIX) 40 mg tablet Take 1 tablet by mouth Daily. 11/14/18 Yes Shea Pedraza MD insulin aspart (NOVOLOG) 100 units/mL injection Inject under the skin 3 times daily (befor e meals). Per sliding scale Yes Historical Provider, lisinopril (PRINIVIL, ZESTRIL) 20 mg tablet Take 40 mg by mouth Daily. 06/29/18 Yes Historic al Provider, metoprolol succinate (TOPROL-XL) 100 mg ER tablet Take 100 mg by mouth Daily. Yes Histori pita Provider, nitroglycerin (NITROSTAT) 0.[address] 0.4 mg under the tongue as needed for Ches t pain. Yes Historical Provider, rivaroxaban (XARELTO) 20 mg tablet Take 1 tablet by mouth Daily (with dinner). 09/21/17 Yes Historical Provider, rosuvastatin (CRESTOR) 20 mg tablet Take 20 mg by mouth nightly. Yes Historical Provider, SITagliptin (JANUVIA) 50 MG tablet Take 1 tablet by mouth Daily. 11/14/18 Yes Shea Andrews MD LABS: Recent Labs Lab 02/20/19 0403 02/19/19 0412 02/18/19 0408 WBC 9.11 11.44* 13.70* HGB 11.0* 10.3* 9.9* HCT 32.6* 29.9* 29.8* PLT 268 182 139* MONOPCT 11.07 8.13 7.02 Recent Labs Lab 02/20/19 0403 02/19/19 0412 02/18/19 0408 NA 141 140 139 K 4.1 4.4 5.2* CL 107 108 109 CO2 26 23 26 BUN 47* 55* 64* CALCIUM 8.3* 8.1* 7.9* Phosphorus: Lab Results Component Value Date PHOS 3.7 02/15/2019 No results for input(s): LABALBU in the last 168 hours. Recent Labs Lab 02/20/19 0403 02/19/192 02/18/19 040 MG 2.2 2.6* 3.0* No results for input(s): AMYLASE in the last 168 hours. Recent Labs Lab 02/15/19232802/15/19200202/15/19 181 PHART 7.383 7.329* 7.309* PO2ART 94 94 83 [id number] 39 43 39 [id number] 97 97 95 Recent Labs Lab 02/15/19 1345 02/15/19 0549 02/14/19 2309 INR 1.2 1.0 -- PTT 26 64* 52* No results for input(s): TSH in the last 168 hours. Invalid input(s): T3FREE, FREET4 No results for input(s): TROPONINT in the last 168 hours. Invalid input(s): CKTOTAL, TROPONINI, CKMBINDEX PROBLEM LIST Principal Problem: NSTEMI (non-ST elevated myocardial infarction) Active Problems: A-fib Coronary atherosclerosis DM (diabetes mellitus) CKD (chronic kidney disease) stage 3, GFR 30-59 ml/min Acute coronary syndrome Chest pain Acute on chronic renal failure No components found for: HGBA1C LIPID PANEL Lab Results Component Value Date CHOL 159 02/11/2019 CHOL 84 09/16/2017 HDL 44 02/11/2019 HDL 33 (L) 09/16/2017 LDL 95 02/11/2019 TRIG 100 02/11/2019 KIDNEY TESTS Lab Results Component Value Date CREA 1.7 (H) 02/20/2019 EGFR 43 (L) 02/20/2019 ASSESSMENT & PLAN S/P CABG x 4, EVH HD stable off gtts. Maintain MAP goal > 65 mmHg In SR, On RA Continue IS, PT/OT, cardiopulmonary rehab Lytes & bowel regimen per protocol. Continue GI prophylaxis Acute Coronary Syndrome Continue ASA, Statin, BB and Plavix. Intra-op EF of 25 - 30% Paroxysmal Atrial Fibrillation Patient with history of PAF On Xarelto prior to CABG Patient in SR throughout post-operative period Hold AOC for now Acute Surgical Blood Loss Hbg & Hct stable Continue Fe+/Vit C Hypertension Hx of HTN, lisinopril, amlodipine and Toprol XL at home Currently normotensive - will add in home meds when BP tolerates Will hold Lisinopril due to renal function Chronic Kidney Disease/Acute Kidney Injury Improved Cr Peaked at 2.6 (02/18); cr 1.7 today (02/20). Baseline Cr of 1.8 Continue home dose of Lasix (40 mg tablet q day) Nephrology following-appreciate recommendations Hold nephrotoxic medications, including SEAN/ARB's Stress Induced Hyperglycemia Off Endotool and on subq insulin Hx of DM, on Novolog and Januvia at home A1c of 7.4 Consult placed for DM educator Dispo Continue Cardiac Unit care for now. Placement with [facility] pending. Code Status: Full Code The patient has been seen, all new lab results and imaging reviewed, and the plan discussed with the attending provider, Dr. Luisana KHAN PA-C 02/20/2019 Associated attestation - Liban Nair MD - 02/20/2019 3:14 PM PDTPatient was seen, exami danis, labs, x-rays, treatment plan reviewed. Stanislav Patricio MD - 02/19/2019 7:21 PM PDTFormatting of this note might be different from t migel original. Hospital Problem List: Principal Problem: NSTEMI (non-ST elevated myocardial infarction) Active Problems: A-fib Coronary atherosclerosis DM (diabetes mellitus) CKD (chronic kidney disease) stage 3, GFR 30-59 ml/min Acute coronary syndrome Chest pain Acute on chronic renal failure 53 y.o. male admitted with: "NSTEMI (non-ST elevated myocardial infarction) (HCC)". -He pre sented with: "Chest Pain" S/p CABG 02/15/19 NEPHROLOGY CONSULTED FOR EVALUATION AND MANAGEMENT OF ARF on CKD ACUTE on CHRONIC moderate to severe ASSOCIATED WITH FLUID ELECTROLYTE IMBALANCES RF: likely hemodynamic in the setting of NSTEMI/ diuresis on presentation. Patient seen and examined Says feel weak but better Cr down to 2.0 No urinary symptoms Denies cp, sob, nausea, vomiting, diarrhea, fever, headache The following portions of the patient's history were reviewed and updated as appropriate: l aboratory data, radiologic studies, allergies, current medications, and problem list. acetaminophen 1,000 mg Oral 3 times per day aspirin 81 mg Oral Daily atorvaSTATin 40 mg Oral Nightly clopidogrel 75 mg Oral Daily docusate sodium 100 mg Oral BID furosemide 20 mg Intravenous BID (8 and 16) insulin detemir 13 Units Subcutaneous Nightly insulin lispro 0-14 Units Subcutaneous TID WC insulin lispro 0-7 Units Subcutaneous Nightly insulin lispro 3 Units Subcutaneous TID WC metoprolol tartrate 12.5 mg Oral BID current Meds: dextrose 10% P.E. Vs: reviewed BP 135/80 | Pulse 84 | Temp 36.7 C (98 F) (Oral) | Resp 18 | Ht 1.803 m (5' 11") | Wt 98.2 kg (216 lb 7.9 oz) | SpO2 96% | BMI 30.19 kg/m General appearance:sitting in chair comfortably, answering appropriately HEENT:+ve pale conjunctiva Lungs:Decrease bs at bases Chest incision dressed Heart:s1 s2 norub. Abdominal exam: Soft.Non-tender. +veCT tube in place Extremities:+ve LEedema. Right leg dressed Neurological:no gross focal motor deficit noted +ve graff in place Recent Labs 02/19/19 0412 02/18/19 0408 02/17/19 0444 BUN 55* 64* 54* CREA 2.0* 2.6* 2.6* EGFR 35* 26* 26* NA 140 139 142 K 4.4 5.2* 4.7 CL 108 109 111* CO2 23 26 26 CALCIUM 8.1* 7.9* 7.9* MG 2.6* 3.0* 2.8* HGB 10.3* 9.9* 9.7* HCT 29.9* 29.8* 28.7* I/O last 3 completed shifts: In: 556 [P.O.:556] Out: 5030 [Urine:4900; Chest Tube:130] No intake/output data recorded. Assessment: a53 y.o.malepatientwith JAMESON (acute kidney injury), that is hemod ynamicin the setting of NSTEMI&some diuresis on presentation. The most likely patholog y here is that ofa mild vasomotor injury. 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) is possible has moderate proteinuria hyperK met acidosis Corrected ca is ok Anemiapost cabg Edema / volume overload HypernatremiaImproving Hyperkalemia Improving Recommendations: Cr down to 2.0, slowly improving renal function JAMESON post cabg likely hemodynamic Watch renal function closely Keep MAP Greater than 70 mm Hg for renal perfusion Optimize renal perfusion pressure RPP = MAP-CVP FREE WATER DEFICIT,REPLACE FREE WATER Increase water intake low sodium in the diet stressed Lasix q 12 hr, diuresing well Low k diet Keep off Amlodipine (periph edema) Monitor VS closely & frequently Reinforce lytes protocol Strict I/O & daily weights. Dose all ofmeds to hiscurrent eGFR. Avoid all kinds of nephrotoxins. Target euvolumia with a MAP>70 mmHg as possible. CASE DISCUSSED IN DETAIL WITH PATIENT/ care team, ANSWERS ALL QUESTIONS IN DETAIL, VERBALIZ ES UNDERSTANDING Stanislav Patricio MD Tika Carranza RN - 1 6:37 PM PDTPatient had an uneventful shift. Ambulated multiple times, stand by a ssist. CT d/c', pain well controlled. Vital signs stable throughout shift. Chart check co mplete. omi Garcia ARNP - 02/19/2019 9:00 AM PDTFormatting of this note might be different from the [facility]. [facility] Service: Cardiothoracic Surgery Progress Note ROOM: [facility]- Hospital Day: LOS: 8 days Post-Op Day: 4 Days Post-Op Surgery/Procedure: 02/15/19, Dr Nair 1. Urgent coronary artery bypass grafting times 4; left internal mammary artery to left an terior descending; saphenous vein graft to diagonal; saphenous vein graft to ramus intermedi us; saphenous vein graft to obtuse marginal. 2. Endoscopic vein harvesting. SUBJECTIVE Events Overnight: No issues overnight. On RA, in SR. Tmax of 36.9 C UOP: 1.4 L/12 hrs; 2.2 L/[address] Output: Med: Removed Pleural: 80 mL/overnight, 130 mL/24hrs OBJECTIVE Vital Signs: BP 119/64 | Pulse 86 | Temp 36.8 C (98.2 F) (Oral) | Resp 18 | Ht 1.803 m (5' 11") | Wt 98.2 kg (216 lb 7.9 oz) | SpO2 94% | BMI 30.19 kg/m Current weight: Patient Vitals for the past 96 hrs: Weight 02/19/19 0616 98.2 kg (216 lb 7.9 oz) 02/18/19 0556 99.5 kg (219 lb 5.7 oz) 02/17/19 0400 99.8 kg (220 lb 0.3 oz) 02/16/19 0600 98.5 kg (217 lb 2.5 oz) Admission weight: Weight: 95.3 kg (210 lb) Physical Exam: General: Alert, oriented, in no acute distress, resting in chair Heart: RRR No murmur Lungs: CTA b/l Dim bases. Abdomen: Soft, nondistended, nontender Extremities: Well perfused, +1 LE edema Musculoskeletal: no deformities or significant abnormalities Neurological: No gross focal motor or sensory deficits Skin: No rash or lesions. Mid-sternal incision dressing is C/D/I. Chest tube present inci jennifer C/D/I. Pacing wires removed EVH incisions C/D/I. DATA: Scheduled Medications acetaminophen 1,000 mg Oral 3 times per day aspirin 81 mg Oral Daily atorvaSTATin 40 mg Oral Nightly clopidogrel 75 mg Oral Daily docusate sodium 100 mg Oral BID furosemide 20 mg Intravenous BID (8 and 16) insulin detemir 13 Units Subcutaneous Nightly insulin lispro 0-14 Units Subcutaneous TID WC insulin lispro 0-7 Units Subcutaneous Nightly insulin lispro 3 Units Subcutaneous TID WC magnesium hydroxide 30 mL Oral Nightly metoprolol tartrate 12.5 mg Oral BID Continuous Infusions dextrose 10% PRN Medications albumin, albuterol, aspirin, bisacodyl, Hypoglycemia Management AND POCT Glucose AND* * dextrose AND dextrose 10%, HYDROmorphone, Magnesium replacement - NON ICU AND Magn esium AND magnesium oxide AND magnesium sulfate AND magnesium sulfate, menthol t hroat lozenges, ondansetron, oxyCODONE, phenol, polyethylene glycol, Potassium replacement - NON ICU AND Potassium AND potassium chloride AND potassium chloride AND pot assium chloride IVPB (other volumes & diluents) AND potassium chloride IVPB (other volum es & diluents), sodium phosphate HOME MEDS: Prior to Admission medications Medication Sig Start Date End Date Taking? Authorizing Provider amLODIPine (NORVASC) 5 mg tablet Take 5 mg by mouth Daily. Yes Historical Provider, aspirin 81 MG EC tablet Take 81 mg by mouth Daily. Yes Historical Provider, cholecalciferol (CHOLECALCIFEROL) 5000 units TABS Take 1 tablet by mouth Daily. 08/08/18 Dewey s Shea Pedraza MD fenofibrate (LOFIBRA, TRIGLIDE) 160 mg tablet Take 160 mg by mouth nightly. Yes Historica l ProviderMD folic acid 1 mg tablet Take 1 mg by mouth Daily. 07/26/18 Yes Historical Provider, furosemide (LASIX) 40 mg tablet Take 1 tablet by mouth Daily. 11/14/18 Yes Shea Pedraza MD insulin aspart (NOVOLOG) 100 units/mL injection Inject under the skin 3 times daily (befor e meals). Per sliding scale Yes Historical Provider, lisinopril (PRINIVIL, ZESTRIL) 20 mg tablet Take 40 mg by mouth Daily. 06/29/18 Yes Historic al Provider, metoprolol succinate (TOPROL-XL) 100 mg ER tablet Take 100 mg by mouth Daily. Yes Histori pita Provider, nitroglycerin (NITROSTAT) 0.[address] 0.4 mg under the tongue as needed for Ches t pain. Yes Historical Provider, rivaroxaban (XARELTO) 20 mg tablet Take 1 tablet by mouth Daily (with dinner). 09/21/17 Yes Historical Provider, rosuvastatin (CRESTOR) 20 mg tablet Take 20 mg by mouth nightly. Yes Historical Provider, SITagliptin (JANUVIA) 50 MG tablet Take 1 tablet by mouth Daily. 11/14/18 Yes Shea Andrews MD LABS: Recent Labs Lab 02/19/1941102/18/198 02/17/19 0444 WBC 11.44* 13.70* 16.22* HGB 10.3* 9.9* 9.7* HCT 29.9* 29.8* 28.7* PLT 182 139* 132* MONOPCT 8.13 7.02 10. Recent Labs Lab 02/19/192 02/18/19 0408 02/17/19 0444 NA 140 139 142 K 4.4 5.2* 4.7 CL 108 109 111* CO2 23 26 26 BUN 55* 64* 54* CALCIUM 8.1* 7.9* 7.9* Phosphorus: Lab Results Component Value Date PHOS 3.7 02/15/2019 No results for input(s): LABALBU in the last 168 hours. Recent Labs Lab 02/19/1941102/18/198 02/17/19 0444 MG 2.6* 3.0* 2.8* No results for input(s): AMYLASE in the last 168 hours. Recent Labs Lab 02/15/19 2329 02/15/19200202/15/19 1819 PHART 7.383 7.329* 7.309* PO2ART 94 94 83 [id number] 39 43 39 [id number] 97 97 95 Recent Labs Lab 02/15/19 1345 02/15/19 0549 02/14/19 2309 INR 1.2 1.0 -- PTT 26 64* 52* No results for input(s): TSH in the last 168 hours. Invalid input(s): T3FREE, FREET4 No results for input(s): TROPONINT in the last 168 hours. Invalid input(s): CKTOTAL, TROPONINI, CKMBINDEX PROBLEM LIST Principal Problem: NSTEMI (non-ST elevated myocardial infarction) Active Problems: A-fib Coronary atherosclerosis DM (diabetes mellitus) CKD (chronic kidney disease) stage 3, GFR 30-59 ml/min Acute coronary syndrome Chest pain Acute on chronic renal failure No components found for: HGBA1C LIPID PANEL Lab Results Component Value Date CHOL 159 02/11/2019 CHOL 84 09/16/2017 HDL 44 02/11/2019 HDL 33 (L) 09/16/2017 LDL 95 02/11/2019 TRIG 100 02/11/2019 KIDNEY TESTS Lab Results Component Value Date CREA 2.0 (H) 02/19/2019 EGFR 35 (L) 02/19/2019 ASSESSMENT & PLAN S/P CABG x 4, [facility] HD stable off gtts. Maintain MAP goal > 65 mmHg Tmax of 36.9 C, In SR, On RA Continue IS, PT/OT, cardiopulmonary rehab Lytes & bowel regimen per protocol. Continue GI prophylaxis Mediastinal tube and pacer wires removed yesterday Will dc pleural tubes today Acute Coronary Syndrome Continue ASA, Statin, BB and Plavix. Intra-op EF of 25 - 30% Acute Surgical Blood Loss H/H today 10.3/29.9 (02/19) Continue Fe+/Vit C Hypertension Hx of HTN, lisinopril, amlodipine and Toprol XL at home Currently normotensive - will add in home meds when BP tolerates Will hold Lisinopril due to renal function Chronic Kidney Disease/Acute Kidney Injury Baseline Cr of 1.8 Currently 2.0 (02/19) after two days at 2.6 Nephrology following-appreciate recommendations Albumin with Lasix given on 02/18 Hold nephrotoxic medications, including SEAN/ARB's Hold magnesium containing medications Stress Induced Hyperglycemia Off Endotool and on subq insulin Hx of DM, on Novolog and Januvia at home A1c of 7.4 Consult placed for DM educator Dispo Continue Cardiac Unit care for now. Hope to dc in the next 2 - 3 days. Code Status: Full Code The patient has been seen, all new lab results and imaging reviewed, and the plan discussed with the attending provider, SHABBIR Bell 02/19/2019 Jocy Interiano RN - 02/19/2019 4:16 AM PDTVSS. Pt AOx4. MS and pleural chest tubes to suction. L pleural d ressing changed due to saturation. Sternal precautions maintained. No crepitus present. Arou nd the clock tylenol given for pain management. 80 cc out for chest tube. 1 walk completed. Chart check complete. Jocy Roper RN Stanislav Mckinnon MD - 6:12 PM PDT Hospital Problem List: Principal Problem: NSTEMI (non-ST elevated myocardial infarction) Active Problems: A-fib Coronary atherosclerosis DM (diabetes mellitus) CKD (chronic kidney disease) stage 3, GFR 30-59 ml/min Acute coronary syndrome Chest pain Acute on chronic renal failure 53 y.o. male admitted with: "NSTEMI (non-ST elevated myocardial infarction) (HCC)". -He pre sented with: "Chest Pain" NEPHROLOGY CONSULTED FOR EVALUATION AND MANAGEMENT OF ARF on CKD ACUTE on CHRONIC moderate to severe ASSOCIATED WITH FLUID ELECTROLYTE IMBALANCES RF: likely hemodynamic in the setting of NSTEMI/ diuresis on presentation. Patient seen and examined Feels weak/ tired, stable cr around 2.6 today Pain at chest incision controlled Urinating well Nocp, sob, nausea, vomiting The following portions of the patient's history were reviewed and updated as appropriate: l aboratory data, radiologic studies, allergies, current medications, and problem list. acetaminophen 1,000 mg Oral 3 times per day albumin 25 g Intravenous BID aspirin 81 mg Oral Daily atorvaSTATin 40 mg Oral Nightly clopidogrel 75 mg Oral Daily docusate sodium 100 mg Oral BID insulin detemir 13 Units Subcutaneous Nightly insulin lispro 0-14 Units Subcutaneous TID WC insulin lispro 0-7 Units Subcutaneous Nightly insulin lispro 3 Units Subcutaneous TID WC magnesium hydroxide 30 mL Oral Nightly metoprolol tartrate 12.5 mg Oral BID current Meds: dextrose 10% P.E. BP 131/74 | Pulse 77 | Temp 36.4 C (97.5 F) (Oral) | Resp 18 | Ht 1.803 m (5' 11") | Wt 99.5 kg (219 lb 5.7 oz) | SpO2 97% | BMI 30.59 kg/m General appearance:sitting in chair in no distress, awake and alert HEENT: +ve pale conjunctiva Lungs:Decrease bs at bases, no respiratory distress. Chest incision dressed Heart:s1 s2 norub. Abdominal exam: Soft.Non-tender. +veCT tube in place Extremities:+ve LEedema. Right leg dressed Neurological:no gross focal motor deficit noted +ve graff in place Recent Labs 02/18/19 0408 02/17/19 0444 02/16/19 1245 02/16/19 0434 BUN 64* 54* -- 43* CREA 2.6* 2.6* -- 2.18* EGFR 26* 26* -- 32* NA 139 142 -- 151* K 5.2* 4.7 5.6* 4.9 CL 109 111* -- 117* CO2 26 26 -- 27 CALCIUM 7.9* 7.9* -- 7.5* MG 3.0* 2.8* -- 2.6* HGB 9.9* 9.7* -- 11.4* HCT 29.8* 28.7* -- 33.3* I/O last 3 completed shifts: In: 1908.4 [P.O.:1480; I.V.:428.4] Out: 2166 [Urine:1685; Stool:1; Chest Tube:480] I/O this shift: In: 440 [P.O.:440] Out: 850 [Urine:800; Chest Tube:50] Assessment: a53 y.o.malepatientwith JAMESON (acute kidney injury), that is hemod ynamicin the setting of NSTEMI&some diuresis on presentation. The most likely patholog y here is that ofa mild vasomotor injury. 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) is possible has moderate proteinuria hyperK met acidosis Corrected ca is ok Anemiapost cabg Edema / volume overload Hypernatremia Improving Hyperkalemia Recommendations: JAMESON post cabg likely hemodynamic, cr stabilizing around 2.6 Watch renal function closely Keep MAP Greater than 70 mm Hg for renal perfusion Optimize renal perfusion pressure RPP = MAP-CVP FREE WATER DEFICIT,REPLACE FREE WATER Increase water intake low sodium in the diet stressed Lasix x 1 Low k diet Keep off Amlodipine (periph edema) Monitor VS closely & frequently Reinforce lytes protocol Strict I/O & daily weights. Dose all ofmeds to hiscurrent eGFR. Avoid all kinds of nephrotoxins. Target euvolumia with a MAP>70 mmHg as possible. CASE DISCUSSED IN DETAIL WITH PATIENT/ care team, ANSWERS ALL QUESTIONS IN DETAIL, VERBALIZ ES UNDERSTANDING Stanislav Patricio MD alker Mckee RN - 5:31 PM PDTVSS, BM today, no pacer wires, MS and pleural chest tube to suction, enc ouraging PO intake, encouraging IS and coughing and deep breathing Chart check complete Electronically signed by: Walker Mckee RN 02/18/2019 17:[address] - 02/18/2019 1:04 PM PDT NUTRITION NOTE Summary Triggered for screening secondary to CABGx4 on 02/15. Pt resting in chair watching TV at time of visit. Diet Experience Self-Selected Diet: Pt reports he usually eats 3 meals per day plus an occasional snack. Pt reports the only food he avoids is milk as he usually experiences diarrhea when he drinks i t - pt reports he can tolerate yogurt and cheese in small amounts. Fluid/Beverage Intake Oral Fluids Amount: Fluids ad barbie. Food Intake Amount of Food: Per chartin% of 3 meals on 02/17; 30%, 50% and 75% of meals on 02/16. Pt rrports he ate pancakes, grapes, eggs, and juice for breakfast this morning - states he ate approximately 50%. Type of Food/Meals: Fat and Cholesterol Modified, 2g K Nourishments: Pt agreeable to trial of Ensure Enlive BID to supplement PO intake. Nutrition-Focused Physical Findings Overall Appearance: Well nourished. Extremities, Muscles and Bones: BLE +2 edema. Digestive System (Mouth to Rectum): Reports mild nausea this morning. Anthropometrics Admit Wt: 94.4 kg. Pt is 121% IBW and BMI of 29. Per records, pt's wt has been stable over the last 6 months. Biochemical Data, Medical Test, and Procedures Recent Labs 02/18/19 0408 NA 139 K 5.2* GLU 109* BUN 64* CREA 2.6* MG 3.0* Food and Nutrition Knowledge RD discussed Cardiac Diet recommendations with pt. Discussed limiting total fat, saturated fats, trans fats, and sodium. Emphasized intake of fiber and omega 3 fatty acids. Discussed food preparation methods and healthy options for meals and snacks. Materials Provided: CABG Nutrition Therapy from Nutrition Care Manual. Recommendations Nutrition Prescription Ordered Nutrition Order Comments: Continue Diet as ordered. Will trial Ensure Enlive BID at snack t imes. Encourage PO intake of nutrient-dense, protein-rich food choices, as tolerated. Monito r and follow as indicated. Nutritional Risk Level Of Risk: moderate Required Follow Up: (M; 02/23) Nicolasa Freitas, MS-MPH, RDN 02/18/2019 13:04 oggs, BELINDA Chaney - 02/18/2019 8:49 AM PDTFormatting of this note might be different from the [facility] Service: Cardiothoracic Surgery Progress Note ROOM: [address] [place] [address] Hospital Day: LOS: 7 days Post-Op Day: 3 Days Post-Op Surgery/Procedure: 02/15/19, Dr Nair 1. Urgent coronary artery bypass grafting times 4; left internal mammary artery to left an terior descending; saphenous vein graft to diagonal; saphenous vein graft to ramus intermedi us; saphenous vein graft to obtuse marginal. 2. Endoscopic vein harvesting. SUBJECTIVE Events Overnight: HD stable, off all vasoactive gtts. SR. On RA. UOP: 990mL/24hs CT Output: Med: 50mL/overnight, 80mL/24hrs Pleural: 140mL/overnight, 240mL/24hrs OBJECTIVE Vital Signs: BP 128/67 | Pulse 76 | Temp 36.8 C (98.3 F) (Oral) | Resp 20 | Ht 1.803 m (5' 11") | Wt 99.5 kg (219 lb 5.7 oz) | SpO2 94% | BMI 30.59 kg/m Current weight: Patient Vitals for the past 96 hrs: Weight 02/18/19 0556 99.5 kg (219 lb 5.7 oz) 02/17/19 0400 99.8 kg (220 lb 0.3 oz) 02/16/19 0600 98.5 kg (217 lb 2.5 oz) 02/15/19 0359 94.1 kg (207 lb 7.3 oz) Admission weight: Weight: 95.3 kg (210 lb) Physical Exam: General: Alert, oriented, in no acute distress, resting in chair Heart: RRR No murmur Lungs: CTA b/l Dim bases. Abdomen: Soft, nondistended, nontender Extremities: Well perfused, +1 LE edema Musculoskeletal: no deformities or significant abnormalities Neurological: No gross focal motor or sensory deficits Skin: No rash or lesions. Mid-sternal incision dressing is C/D/I. Chest tube present inci jennifer C/D/I. Pacing wires present EVH incisions C/D/I. DATA: Scheduled Medications acetaminophen 1,000 mg Oral 3 times per day aspirin 81 mg Oral Daily atorvaSTATin 40 mg Oral Nightly clopidogrel 75 mg Oral Daily docusate sodium 100 mg Oral BID insulin detemir 13 Units Subcutaneous Nightly insulin lispro 0-14 Units Subcutaneous TID WC insulin lispro 0-7 Units Subcutaneous Nightly insulin lispro 3 Units Subcutaneous TID WC magnesium hydroxide 30 mL Oral Nightly metoprolol tartrate 12.5 mg Oral BID Continuous Infusions dexmedetomidine Stopped (02/16/19 2234) dextrose 10% EPINEPHrine infusion Stopped (02/16/19 1550) nitroglycerin in dextrose Stopped (02/15/19 1308) phenylephrine 30 mcg/min (02/16/19 5723) vasopressin (VASOSTRICT) infusion (shock) PRN Medications albumin, albuterol, aspirin, bisacodyl, calcium gluconate IVPB, Hypoglycemia Management A ND POCT Glucose AND dextrose AND dextrose 10%, HYDROmorphone, Magnesium replacemen t - ICU AND magnesium sulfate AND magnesium sulfate, menthol throat lozenges, meperi dine, ondansetron, oxyCODONE, phenol, polyethylene glycol, Potassium replacement - ICU AND potassium chloride AND potassium chloride AND potassium chloride, sodium phosphat e HOME MEDS: Prior to Admission medications Medication Sig Start Date End Date Taking? Authorizing Provider amLODIPine (NORVASC) 5 mg tablet Take 5 mg by mouth Daily. Yes Historical Provider, aspirin 81 MG EC tablet Take 81 mg by mouth Daily. Yes Historical Provider, cholecalciferol (CHOLECALCIFEROL) 5000 units TABS Take 1 tablet by mouth Daily. 08/08/18 Ye s Shea Pedraza MD fenofibrate (LOFIBRA, TRIGLIDE) 160 mg tablet Take 160 mg by mouth nightly. Yes Historica l ProviderMD folic acid 1 mg tablet Take 1 mg by mouth Daily. 07/26/18 Yes Historical Provider, furosemide (LASIX) 40 mg tablet Take 1 tablet by mouth Daily. 11/14/18 Yes Shea Pedraza MD insulin aspart (NOVOLOG) 100 units/mL injection Inject under the skin 3 times daily (befor e meals). Per sliding scale Yes Historical Provider, lisinopril (PRINIVIL, ZESTRIL) 20 mg tablet Take 40 mg by mouth Daily. 06/29/18 Yes Historic al Provider, metoprolol succinate (TOPROL-XL) 100 mg ER tablet Take 100 mg by mouth Daily. Yes Histori pita Provider, nitroglycerin (NITROSTAT) 0.[address] 0.4 mg under the tongue as needed for Ches t pain. Yes Historical Provider, rivaroxaban (XARELTO) 20 mg tablet Take 1 tablet by mouth Daily (with dinner). 09/21/17 Yes Historical Provider, rosuvastatin (CRESTOR) 20 mg tablet Take 20 mg by mouth nightly. Yes Historical Provider, SITagliptin (JANUVIA) 50 MG tablet Take 1 tablet by mouth Daily. 11/14/18 Yes Shea Andrews MD LABS: Recent Labs Lab 02/18/1940702/17/19 0444 02/16/19 0434 WBC 13.70* 16.22* 18.13* HGB 9.9* 9.7* 11.4* HCT 29.8* 28.7* 33.3* PLT 139* 132* 137* MONOPCT 7.02 10. 11.75 Recent Labs Lab 02/18/19 04002/17/194 02/16/19 1245 02/16/19 0434 NA 139 142 -- 151* K 5.2* 4.7 5.6* 4.9 CL 109 111* -- 117* CO2 26 26 -- 27 BUN 64* 54* -- 43* CALCIUM 7.9* 7.9* -- 7.5* Phosphorus: Lab Results Component Value Date PHOS 3.7 02/15/2019 No results for input(s): LABALBU in the last 168 hours. Recent Labs Lab 02/18/19 0408 02/17/19 0444 02/16/19 0434 MG 3.0* 2.8* 2.6* No results for input(s): AMYLASE in the last 168 hours. Recent Labs Lab 02/15/19 2329 02/15/19200202/15/19 1819 PHART 7.383 7.329* 7.309* PO2ART 94 94 83 [id number] 39 43 39 [id number] 97 97 95 Recent Labs Lab 02/15/19 1345 02/15/19 0549 02/14/19 2309 INR 1.2 1.0 -- PTT 26 64* 52* No results for input(s): TSH in the last 168 hours. Invalid input(s): T3FREE, FREET4 No results for input(s): TROPONINT in the last 168 hours. Invalid input(s): CKTOTAL, TROPONINI, CKMBINDEX PROBLEM LIST Principal Problem: NSTEMI (non-ST elevated myocardial infarction) Active Problems: A-fib Coronary atherosclerosis DM (diabetes mellitus) CKD (chronic kidney disease) stage 3, GFR 30-59 ml/min Acute coronary syndrome Chest pain Acute on chronic renal failure No components found for: HGBA1C LIPID PANEL Lab Results Component Value Date CHOL 159 02/11/2019 CHOL 84 09/16/2017 HDL 44 02/11/2019 HDL 33 (L) 09/16/2017 LDL 95 02/11/2019 TRIG 100 02/11/2019 KIDNEY TESTS Lab Results Component Value Date CREA 2.6 (H) 02/18/2019 EGFR 26 (L) 02/18/2019 ASSESSMENT & PLAN S/P CABG -Cont ASA, Statin, Plavix. Hold BB while req pressors -Wean DAVEY as tolerated -Wean O2, encourage IS, ambulate -Remove Med CT/TPWs, Continue pleural CTs for now, CKD/JAMESON -Cr stable 2.6 today -Nephrology following, appreciate recommendations -Per nephrology albumin and lasix today Transfer to cardiac unit Code Status: Full Code The patient has been seen, all new lab results and imaging reviewed, and the plan discussed with the attending provider, BELINDA Cash 02/18/2019 Associated attestation - Mckay Fuller MD - 02/18/2019 9:09 AM PDTI agree Generally doing very well considering his comorbidities BUN up to 64 and creat 2.6 - nephrology would like to have lasix given Not up mobilizing very well yet Diet OK Mediastinal drain with low output - 140 out of pleural drains and will leave these for a fe w more days K 5.2 - will recheck in 6 hours Connor Wallace ARNP - 02/18/2019 3:19 AM [facility] Service: Manager Net Cardiothoracic Surgery Consult and Follow Up Date/Time:02/18/2019 3:19 Provider: SHABBIR Jacobson Hospital Day: LOS: 7 days Surgery/Procedure: Procedure(s) (LRB): CORONARY ARTERY BYPASS GRAFT X4 WITH TAKEDOWN LEFT INTERNAL MAMMARY ARTERY, EVH RIGHT SAPHO NUS VEIN (N/A) Post-Op Day: 3 Days Post-Op PROBLEM LIST Principal Problem: NSTEMI (non-ST elevated myocardial infarction) Active Problems: A-fib Coronary atherosclerosis DM (diabetes mellitus) CKD (chronic kidney disease) stage 3, GFR 30-59 ml/min Acute coronary syndrome Chest pain Acute on chronic renal failure Resolved Problems: * No resolved hospital problems. * SUBJECTIVE: Patient Summary: Shai Robertson is a 53 yo male with PMH of CAD s.p stent to mid RCA, PAF on xarelto, type 2 DM, HTN, HLD, CKD stage 3, psoriasis who presented to [facility] due to a 2 day history of chest pain and SOB. Initial troponin was mildly elevated and cont inued to rise after admission, peaked at 22. EKG did show inferolateral ST -T wave abnormali ties suggestive of ischemia. Coronary angiogram was performed on 02/11 with Ally Lacy which revealed restenosis of RCA lesion and severe 3 vessel CAD. TTE done 02/12 with LVEF 35-40% with marked apical hypokinesis and RVSP 58 mmHg. The patient was referred to CTS for consid eration for surgical revascularization. Last dose of xarelto was given on Saturday 02/10 and patient has remained on heparin gtt throughout hospitalization. ICU Timeline: 02/15 - To ICU s/p CABG x 4 + EVH with Dr. Nair 02/16 - Extubated shortly after midnight 02/17- Remains on DAVEY Events overnight: - HD stable, SR, no vasoactive infusions, Cordis removed - On 2L NC. - CT output 190 mL, UOP 500 mL OBJECTIVE: Vital Signs: BP 100/58 | Pulse 69 | Temp 36.7 C (98 F) (Oral) | Resp 18 | Ht 1.803 m (5' 11") | Wt 99.8 kg (220 lb 0.3 oz) | SpO2 100% | BMI 30.69 kg/m EXAM GEN: awake, alert. NAD NEURO: PERRLA, EOMI, no facial asymmetry, moving extremities well HEENT: sclerae clear, nonicteric, oral mmm, pink, no exudates NECK: supple, trachea midline CV: RRR, S1/S2, no murmur, rub or gallop, peripheral pulses palpable, cap refill brisk CHEST: midline incision with dressing, c/d/i, no erythema or oozing, CT exiting subxiphoid process LUNGS: no wheezing, rales or rhonchi, symmetric chest expansion, even/unlabored respiratio ns on NC ABD: soft, nondistended, nontender to palpation, no masses EXTR: no edema, clubbing or cyanosis, RLE in sean wrap SKIN: warm, dry, no rash or mottling; hyperpigmentation in LLE, psoriasis scabs present acr oss bilateral hands LINES/TUBES: PIV, graff, CT x 2 Diagnostic Studies: Available labs and images have been reviewed and will be addressed as indicated in the assessment and plan. ASSESSMENT & PLAN: 1. Severe 3 vessel CAD s/p CABG x 4 + EVH - Medical management per primary service (ASA, plavix, betablocker, statin) - extubated to NC. - Post operative management per CTS (chest tubes, pacer wires, gtt management, anticoagulat ion, transfusion) - Ambulate, PT/OT, IS 2. JAEMSON on CKD stage 3 - Nephrology following; Cr 2.6 up from 1.9 on admit - Risk for electrolyte imbalance. Follow closely. Replace as indicated - Strict I/O, follow UOP closely 3. Type 2 diabetes mellitus - Transitioned to SSI and basal insulin 4. PAF on xarelto -Xarelto held since 02/10. Primary service to resume when cleared. -Telemetry monitoring. Disposition: Per cardiothoracic surgery Code Status: Full Code *Please bill 30 minutes of critical care time spent evaluating the patient, reviewing the d librado and formulating a plan exclusive of all other procedures. SHABBIR Jacobson 02/18/2019 3:19 Stanislav Muñoz MD - 02/17/2019 7:29 PM PDTFormatting of this note might be different from the o riginal. Hospital Problem List: Principal Problem: NSTEMI (non-ST elevated myocardial infarction) Active Problems: A-fib Coronary atherosclerosis DM (diabetes mellitus) CKD (chronic kidney disease) stage 3, GFR 30-59 ml/min Acute coronary syndrome Chest pain Acute on chronic renal failure 53 y.o. male admitted with: "NSTEMI (non-ST elevated myocardial infarction) (HCC)" s/p CBAG X 4 V NEPHROLOGY CONSULTED FOR EVALUATION AND MANAGEMENT OF ARF on CKD ACUTE on CHRONIC moderate to severe ASSOCIATED WITH FLUID ELECTROLYTE IMBALANCES RF: likely hemodynamicin the setting of NSTEMI/ diuresis on presentation Patient seen and examined Feels weak but better, rise in cr 2.6 cp incision controlled Urinating well No cp, sob, nausea, vomiting, diarrhea, fever, headache The following portions of the patient's history were reviewed and updated as appropriate: l aboratory data, radiologic studies, allergies, current medications, and problem list. acetaminophen 1,000 mg Oral 3 times per day aspirin 81 mg Oral Daily atorvaSTATin 40 mg Oral Nightly clopidogrel 75 mg Oral Daily docusate sodium 100 mg Oral BID famotidine 20 mg Oral BID insulin detemir 13 Units Subcutaneous Nightly insulin lispro 0-14 Units Subcutaneous TID WC insulin lispro 0-7 Units Subcutaneous Nightly insulin lispro 3 Units Subcutaneous TID WC magnesium hydroxide 30 mL Oral Nightly metoprolol tartrate 12.5 mg Oral BID current Meds: dexmedetomidine Stopped (02/16/19 9242) dextrose 10% EPINEPHrine infusion Stopped (02/16/19 6060) nitroglycerin in dextrose Stopped (02/15/19 1308) phenylephrine 30 mcg/min (10/25/19 2239) vasopressin (VASOSTRICT) infusion (shock) P.E. Vs; reviewed BP 115/63 | Pulse 92 | Temp 36.7 C (98 F) (Oral) | Resp 17 | Ht 1.803 m (5' 11") | Wt 99.8 kg (220 lb 0.3 oz) | SpO2 94% | BMI 30.69 kg/m General appearance: sitting in chair comfortably, awake and alert HEENT: +ve pale conjunctiva Lungs: Decrease bs at bases, no respiratory distress. Heart: s1 s2 no rub. Abdominal exam: Soft. Non-tender. +ve CT tubes in place Extremities: +ve LE edema. Right leg dressed Neurological: no gross focal motor deficit noted +ve graff in place Recent Labs 02/17/19 0444 02/16/19 1245 02/16/19 0434 02/15/19 1345 02/15/19 0549 BUN 54* -- 43* -- 41* -- 49* CREA 2.6* -- 2.18* -- 1.86* -- 1.9* EGFR 26* -- 32* -- 38* -- 37* NA 142 -- 151* -- 150* -- 142 K 4.7 5.6* 4.9 < > 4.9 -- 4.3 CL 111* -- 117* -- 119* -- 114* CO2 26 -- 27 -- 19* -- 18* CALCIUM 7.9* -- 7.5* -- 7.7* -- 9.0 PHOS -- -- -- -- -- -- 3.7 MG 2.8* -- 2.6* -- 3.0* -- -- ALBUMIN -- -- -- -- -- -- 2.3* HGB 9.7* -- 11.4* -- 12.8* < > 11.7* HCT 28.7* -- 33.3* -- 37.7* < > 34.5* < > = values in this interval not displayed. I/O last 3 completed shifts: In: 3529.4 [P.O.:2210; I.V.:1319.4] Out: 2176 [Urine:1585; Stool:1; Chest Tube:590] No intake/output data recorded. Assessment: Mr. Robertson is a 53 y.o. male patient with JAMESON (acute kidney injury), that is hemodynamic in the setting of NSTEMI& some diuresis on presentation. The most likely pathology here i s that ofa mild vasomotor injury. 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) is possib le has moderate proteinuria hyperK met acidosis Corrected ca is ok Anemia post cabg Edema / volume overload Hypernatremia Improving Recommendations: Worsened cr post cabg likely hemodynamic, cr upto 2.6 Watch renal function closely Keep MAP Greater than 70 mm Hg for renal perfusion Optimize renal perfusion pressure RPP = MAP-CVP FREE WATER DEFICIT, REPLACE FREE WATER Increase water intake low sodium in the diet stressed Low k diet Keep off Amlodipine (periph edema) Monitor VS closely & frequently Reinforce lytes protocol Strict I/O & daily weights. Dose all ofmeds to hiscurrent eGFR. Avoid all kinds of nephrotoxins. Target euvolumia with a MAP>70 mmHg as possible. CASE DISCUSSED IN DETAIL WITH PATIENT/ care team, ANSWERS ALL QUESTIONS IN DETAIL, VERBALIZ ES UNDERSTANDING Stanislav Patricio MD oCalixto gao PA - 1 4:11 PM PDT [facility] Service: Cardiothoracic Surgery Progress Note ROOM: [address] [place] [address] Hospital Day: LOS: 6 days Post-Op Day: 2 Days Post-Op Surgery/Procedure: 02/15/19, Dr Nair 1. Urgent coronary artery bypass grafting times 4; left internal mammary artery to left an terior descending; saphenous vein graft to diagonal; saphenous vein graft to ramus intermedi us; saphenous vein graft to obtuse marginal. 2. Endoscopic vein harvesting. SUBJECTIVE Events Overnight: HD stable, on DAVEY @ 30 this AM. Pain improved. 2L NC. UOP: 1.1L/24hs CT Output: 160mL/overnight, 460mL/24hrs OBJECTIVE Vital Signs: BP 101/59 | Pulse 72 | Temp 36.6 C (97.8 F) (Oral) | Resp 18 | Ht 1.803 m (5' 11") | Wt 99.8 kg (220 lb 0.3 oz) | SpO2 100% | BMI 30.69 kg/m Current weight: Patient Vitals for the past 96 hrs: Weight 02/17/19 0400 99.8 kg (220 lb 0.3 oz) 02/16/19 0600 98.5 kg (217 lb 2.5 oz) 02/15/19 0359 94.1 kg (207 lb 7.3 oz) Admission weight: Weight: 95.3 kg (210 lb) Physical Exam: General: Alert, oriented, in no acute distress, resting in chair Heart: RRR No murmur Lungs: CTA b/l Dim bases. Abdomen: Soft, nondistended, nontender Extremities: Well perfused, +1 LE edema Musculoskeletal: no deformities or significant abnormalities Neurological: No gross focal motor or sensory deficits Skin: No rash or lesions. Mid-sternal incision dressing is C/D/I. Chest tube present inci jennifer C/D/I. Pacing wires present EVH incisions C/D/I. DATA: Scheduled Medications acetaminophen 1,000 mg Oral 3 times per day aspirin 81 mg Oral Daily atorvaSTATin 40 mg Oral Nightly clopidogrel 75 mg Oral Daily docusate sodium 100 mg Oral BID famotidine 20 mg Oral BID insulin detemir 13 Units Subcutaneous Nightly insulin lispro 0-14 Units Subcutaneous TID WC insulin lispro 0-7 Units Subcutaneous Nightly insulin lispro 3 Units Subcutaneous TID WC magnesium hydroxide 30 mL Oral Nightly metoprolol tartrate 12.5 mg Oral BID Continuous Infusions dexmedetomidine Stopped (02/16/19 0415) dextrose 10% EPINEPHrine infusion Stopped (02/16/19 1550) nitroglycerin in dextrose Stopped (02/15/19 1308) phenylephrine 30 mcg/min (02/16/19 2239) vasopressin (VASOSTRICT) infusion (shock) PRN Medications albumin, albuterol, aspirin, bisacodyl, calcium gluconate IVPB, Hypoglycemia Management A ND POCT Glucose AND dextrose AND dextrose 10%, HYDROmorphone, Magnesium replacemen t - ICU AND magnesium sulfate AND magnesium sulfate, menthol throat lozenges, meperi dine, ondansetron, oxyCODONE, phenol, polyethylene glycol, Potassium replacement - ICU AND potassium chloride AND potassium chloride AND potassium chloride, sodium phosphat e HOME MEDS: Prior to Admission medications Medication Sig Start Date End Date Taking? Authorizing Provider amLODIPine (NORVASC) 5 mg tablet Take 5 mg by mouth Daily. Yes Historical Provider, aspirin 81 MG EC tablet Take 81 mg by mouth Daily. Yes Historical Provider, cholecalciferol (CHOLECALCIFEROL) 5000 units TABS Take 1 tablet by mouth Daily. 08/08/18 Dewey s Shea Pedraza MD fenofibrate (LOFIBRA, TRIGLIDE) 160 mg tablet Take 160 mg by mouth nightly. Yes Historica l Provider, folic acid 1 mg tablet Take 1 mg by mouth Daily. 07/26/18 Yes Historical Provider, furosemide (LASIX) 40 mg tablet Take 1 tablet by mouth Daily. 11/14/18 Yes Shea Pedraza MD insulin aspart (NOVOLOG) 100 units/mL injection Inject under the skin 3 times daily (befor e meals). Per sliding scale Yes Historical Provider, lisinopril (PRINIVIL, ZESTRIL) 20 mg tablet Take 40 mg by mouth Daily. 06/29/18 Yes Historic al Provider, metoprolol succinate (TOPROL-XL) 100 mg ER tablet Take 100 mg by mouth Daily. Yes Histori pita Provider, nitroglycerin (NITROSTAT) 0.[address] 0.4 mg under the tongue as needed for Ches t pain. Yes Historical Provider, rivaroxaban (XARELTO) 20 mg tablet Take 1 tablet by mouth Daily (with dinner). 09/21/17 Yes Historical Provider, rosuvastatin (CRESTOR) 20 mg tablet Take 20 mg by mouth nightly. Yes Historical Provider, SITagliptin (JANUVIA) 50 MG tablet Take 1 tablet by mouth Daily. 11/14/18 Yes Shea Andrews MD LABS: Recent Labs Lab 02/17/19 0444 02/16/19 0434 02/15/19 1345 WBC 16.22* 18.13* 17.53* HGB 9.7* 11.4* 12.8* HCT 28.7* 33.3* 37.7* PLT 132* 137* 131* MONOPCT 10. 11.75 7.20 Recent Labs Lab 02/17/19 0444 02/16/19 1245 02/16/19 0434 02/15/19 1345 02/11/19 0743 NA 142 -- 151* -- 150* < > 142 K 4.7 5.6* 4.9 < > 4.9 < > 4.8 CL 111* -- 117* -- 119* < > 117* CO2 26 -- 27 -- 19* < > 19* BUN 54* -- 43* -- 41* < > 44* CALCIUM 7.9* -- 7.5* -- 7.7* < > 8.7 ALKPHOS -- -- -- -- -- -- 79 ALT -- -- -- -- -- -- 41 AST -- -- -- -- -- -- 59* < > = values in this interval not displayed. Phosphorus: Lab Results Component Value Date PHOS 3.7 02/15/2019 No results for input(s): LABALBU in the last 168 hours. Recent Labs Lab 02/17/194 02/16/19 0434 02/15/19 1345 MG 2.8* 2.6* 3.0* No results for input(s): AMYLASE in the last 168 hours. Recent Labs Lab 02/15/19 2329 02/15/19200202/15/19 1819 PHART 7.383 7.329* 7.309* PO2ART 94 94 83 [id number] 39 43 39 [id number] 97 97 95 Recent Labs Lab 02/15/19 1345 02/15/19 0549 02/14/19 2309 INR 1.2 1.0 -- PTT 26 64* 52* Recent Labs Lab 02/11/19 0743 TSH 0.779 No results for input(s): TROPONINT in the last 168 hours. Invalid input(s): CKTOTAL, TROPONINI, CKMBINDEX PROBLEM LIST Principal Problem: NSTEMI (non-ST elevated myocardial infarction) Active Problems: A-fib Coronary atherosclerosis DM (diabetes mellitus) CKD (chronic kidney disease) stage 3, GFR 30-59 ml/min Acute coronary syndrome Chest pain Acute on chronic renal failure ASSESSMENT & PLAN S/P CABG -Cont ASA, Statin, Plavix. Hold BB while req pressors -Wean DAVEY as tolerated -Wean O2, encourage IS, ambulate -Continue CTs/TPWs for now CKD/JAMESON -Cr up to 2.6 today -Nephrology following, appreciate recommendations Continue ICU care for now Code Status: Full Code The patient has been seen, all new lab results and imaging reviewed, and the plan discussed with the attending provider, BELINDA Cash 02/17/2019 Connor Lim ARNP - 02/17/2019 1:27 AM [facility] Service: Manager Net Cardiothoracic Surgery Consult and Follow Up Date/Time:02/17/2019 5:39 Provider: SHABBIR Jacobson Hospital Day: LOS: 6 days Surgery/Procedure: Procedure(s) (LRB): CORONARY ARTERY BYPASS GRAFT X4 WITH TAKEDOWN LEFT INTERNAL MAMMARY ARTERY, EVH RIGHT SAPHO NUS VEIN (N/A) Post-Op Day: 2 Days Post-Op PROBLEM LIST Principal Problem: NSTEMI (non-ST elevated myocardial infarction) Active Problems: A-fib Coronary atherosclerosis DM (diabetes mellitus) CKD (chronic kidney disease) stage 3, GFR 30-59 ml/min Acute coronary syndrome Chest pain Acute on chronic renal failure Resolved Problems: * No resolved hospital problems. * SUBJECTIVE: Patient Summary: Shai Robertson is a 53 yo male with PMH of CAD s.p stent to mid RCA, PAF on xarelto, type 2 DM, HTN, HLD, CKD stage 3, psoriasis who presented to [facility] due to a 2 day history of chest pain and SOB. Initial troponin was mildly elevated and cont inued to rise after admission, peaked at 22. EKG did show inferolateral ST -T wave abnormali ties suggestive of ischemia. Coronary angiogram was performed on 02/11 with Ally Lacy which revealed restenosis of RCA lesion and severe 3 vessel CAD. TTE done 02/12 with LVEF 35-40% with marked apical hypokinesis and RVSP 58 mmHg. The patient was referred to CTS for consid eration for surgical revascularization. Last dose of xarelto was given on Saturday 02/10 and patient has remained on heparin gtt throughout hospitalization. ICU Timeline: 02/15 - To ICU s/p CABG x 4 + EVH with Dr. Nair 02/16 - Extubated shortly after midnight 02/17- Remains on DAVEY Events overnight: - HD stable, SR, off davey - On 2L NC. - CT output 160 mL, UOP 695 mL OBJECTIVE: Vital Signs: BP 114/67 | Pulse 76 | Temp 37.3 C (99.1 F) (Oral) | Resp 22 | Ht 1.803 m (5' 11") | Wt 98.5 kg (217 lb 2.5 oz) | SpO2 98% | BMI 30.29 kg/m EXAM GEN: awake, alert. NAD NEURO: PERRLA, EOMI, no facial asymmetry, moving extremities well HEENT: sclerae clear, nonicteric, oral mmm, pink, no exudates NECK: supple, trachea midline CV: RRR, S1/S2, no murmur, rub or gallop, peripheral pulses palpable, cap refill brisk CHEST: midline incision with dressing, c/d/i, no erythema or oozing, CT exiting subxiphoid process LUNGS: no wheezing, rales or rhonchi, symmetric chest expansion, even/unlabored respiratio ns on NC ABD: soft, nondistended, nontender to palpation, no masses EXTR: no edema, clubbing or cyanosis, RLE in sean wrap SKIN: warm, dry, no rash or mottling; hyperpigmentation in LLE, psoriasis scabs present acr oss bilateral hands LINES/TUBES: PIV, graff, CT x 2, R IJ cordis Diagnostic Studies: Available labs and images have been reviewed and will be addressed as indicated in the assessment and plan. ASSESSMENT & PLAN: 1. Severe 3 vessel CAD s/p CABG x 4 + EVH - Medical management per primary service (ASA, plavix, betablocker, statin) - extubated to NC. - Post operative management per CTS (chest tubes, pacer wires, gtt management, anticoagulat ion, transfusion) - Ambulate, PT/OT, IS 2. JAMESON on CKD stage 3 - Nephrology following; Cr worsened yesterday but today labs pending - Risk for electrolyte imbalance. Follow closely. Replace per protocol - Risk for JAMESON post op, strict I/O, follow UOP closely 3. Type 2 diabetes mellitus - on endotool post op. Transition to SSI once stabilizes 4. PAF on xarelto -Xarelto held since 02/10. Primary service to resume when cleared. -Telemetry monitoring. Disposition: Per cardiothoracic surgery Code Status: Full Code *Please bill 30 minutes of critical care time spent evaluating the patient, reviewing the d librado and formulating a plan exclusive of all other procedures. SHABBIR Jacobson 02/17/2019 5:39 al chapin, Joao Felix RN - 02/16/2019 5:56 PM PDTEnd of shift chart audit completeElectronically si gned by Joao Barth RN at 02/16/2019 5:56 PM PDTStanislav Patricio MD - 02/16/2019 3:32 PM PDT Hospital Problem List: Principal Problem: NSTEMI (non-ST elevated myocardial infarction) Active Problems: A-fib Coronary atherosclerosis DM (diabetes mellitus) CKD (chronic kidney disease) stage 3, GFR 30-59 ml/min Acute coronary syndrome Chest pain Acute on chronic renal failure 53 y.o. male admitted with: "NSTEMI (non-ST elevated myocardial infarction) (HCC)" s/p CBAG X 4 V NEPHROLOGY CONSULTED FOR EVALUATION AND MANAGEMENT OF ARF on CKD ACUTE on CHRONIC moderate to severe ASSOCIATED WITH FLUID ELECTROLYTE IMBALANCES RF: likely hemodynamic in the setting of NSTEMI/ diuresis on presentation Patient seen and examined Got extubated Feels weak, cp incision controlled uop ok No cp, sob, nausea, vomiting, diarrhea, fever, headache The following portions of the patient's history were reviewed and updated as appropriate: l aboratory data, radiologic studies, allergies, current medications, and problem list. acetaminophen 1,000 mg Oral 3 times per day aspirin 81 mg Oral Daily atorvaSTATin 40 mg Oral Nightly clopidogrel 75 mg Oral Daily docusate sodium 100 mg Oral BID famotidine 20 mg Oral BID insulin detemir 13 Units Subcutaneous Nightly insulin lispro 0-14 Units Subcutaneous TID WC insulin lispro 0-7 Units Subcutaneous Nightly insulin lispro 3 Units Subcutaneous TID WC magnesium hydroxide 30 mL Oral Nightly metoprolol tartrate 12.5 mg Oral BID current Meds: dexmedetomidine Stopped (02/16/19 0415) dextrose 10% EPINEPHrine infusion 1 mcg/min (02/16/19 0630) nitroglycerin in dextrose Stopped (02/15/19 1308) phenylephrine 30 mcg/min (02/16/19 1140) vasopressin (VASOSTRICT) infusion (shock) P.E. BP 121/63 | Pulse 85 | Temp 36.5 C (97.7 F) (Oral) | Resp 18 | Ht 1.803 m (5' 11") | Wt 98.5 kg (217 lb 2.5 oz) | SpO2 98% | BMI 30.29 kg/m General appearance: sitting in chair in no apparent distress Lungs: Decrease bs at bases Heart: s1 s2 no rub. Abdominal exam: Soft. Non-tender. +ve CT tubes in place Extremities: +ve LE edema. Right leg dressed Neurological: drowsy but arousable +ve graff in place Recent Labs 02/16/19 1245 02/16/19 0434 02/15/19 2339 02/15/19 1345 02/15/19 1339 02/15/19 0549 02/14/19 0559 BUN -- 43* -- -- 41* -- -- 49* 53* CREA -- 2.18* -- -- 1.86* -- -- 1.9* 2.1* EGFR -- 32* -- -- 38* -- -- 37* 33* NA -- 151* -- -- 150* -- -- 142 140 K 5.6* 4.9 4.6 < > 4.9 -- -- 4.3 4.6 CL -- 117* -- -- 119* -- -- 114* 114* CO2 -- 27 -- -- 19* -- -- 18* 20* CALCIUM -- 7.5* -- -- 7.7* -- -- 9.0 8.7 PHOS -- -- -- -- -- -- -- 3.7 3.3 MG -- 2.6* -- -- 3.0* -- -- -- -- ALBUMIN -- -- -- -- -- -- -- 2.3* 2.5* HGB -- 11.4* -- -- 12.8* 11.6* < > 11.7* -- HCT -- 33.3* -- -- 37.7* 34* < > 34.5* -- < > = values in this interval not displayed. I/O last 3 completed shifts: In: 6912 [P.O.:800; I.V.:4522; Other:1340; IV Piggyback:250] Out: 6180 [Urine:2470; Other:1900; Blood:1250; Chest Tube:560] I/O this shift: In: 40 [Other:40] Out: 204 [Urine:64; Chest Tube:140] Assessment: Mr. Robertson is a 53 y.o. male patient with JAMESON (acute kidney injury), that is hemodynamic in the setting of NSTEMI & some diuresis on presentation. The most likely pathology here is that of a mild vasomotor injury. 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) is possible has moderate proteinuria hyperK met acidosis Corrected ca is ok Anemia post cabg Edema / volume overload Hypernatremia Recommendations: Worsened cr post cabg likely hemodynamic Watch renal function closely Keep MAP Greater than 70 mm Hg for renal perfusion Optimize renal perfusion pressure RPP = MAP-CVP FREE WATER DEFICIT, REPLACE FREE WATER Increase water intake low sodium in the diet stressed Low k diet Keep off Amlodipine (periph edema) Monitor VS closely & frequently Reinforce lytes protocol Strict I/O & daily weights. Dose all of meds to his current eGFR. Avoid all kinds of nephrotoxins. Target euvolumia with a MAP>70 mmHg as possible. CASE DISCUSSED IN DETAIL WITH PATIENT/ care team, ANSWERS ALL QUESTIONS IN DETAIL, VERBALIZ ES UNDERSTANDING Stanislav Patricio MD Calixto Sanders PA - 1 9:38 AM PDT [facility] Service: Cardiothoracic Surgery Progress Note ROOM: [id number] Hospital Day: LOS: 5 days Post-Op Day: 1 Day Post-Op Surgery/Procedure: 02/15/19, Dr Nair 1. Urgent coronary artery bypass grafting times 4; left internal mammary artery to left an terior descending; saphenous vein graft to diagonal; saphenous vein graft to ramus intermedi us; saphenous vein graft to obtuse marginal. 2. Endoscopic vein harvesting. SUBJECTIVE Events Overnight: HD stable, on DAVEY @ 40, Epi @ 1 this AM. C/o pain. Extubated overni ght and currently on 4L NC. UOP: 2L/24hs CT Output: 200mL/overnight, 560mL/24hrs OBJECTIVE Vital Signs: BP 105/63 | Pulse 85 | Temp 37.2 C (99 F) (Infrared Device) Comment (Src): Samaria-Roland catheter | Resp 16 | Ht 1.803 m (5' 11") | Wt 98.5 kg (217 lb 2.5 oz) | SpO2 97% | BMI 3 0.29 kg/m Current weight: Patient Vitals for the past 96 hrs: Weight 02/16/19 0600 98.5 kg (217 lb 2.5 oz) 02/15/19 0359 94.1 kg (207 lb 7.3 oz) 02/13/19 0510 95.3 kg (210 lb) Admission weight: Weight: 95.3 kg (210 lb) Physical Exam: General: Alert, oriented, in no acute distress, resting in chair Heart: RRR No murmur Lungs: CTA b/l Dim bases. Abdomen: Soft, nondistended, nontender Extremities: Well perfused, +1 LE edema Musculoskeletal: no deformities or significant abnormalities Neurological: No gross focal motor or sensory deficits Skin: No rash or lesions. Mid-sternal incision dressing is C/D/I. Chest tube present inci jennifer C/D/I. Pacing wires present EVH incisions C/D/I. DATA: Scheduled Medications acetaminophen 1,000 mg Oral 3 times per day aspirin 81 mg Oral Daily atorvaSTATin 40 mg Oral Nightly clopidogrel 75 mg Oral Daily docusate sodium 100 mg Oral BID famotidine 20 mg Oral BID magnesium hydroxide 30 mL Oral Nightly metoprolol tartrate 12.5 mg Oral BID Continuous Infusions dexmedetomidine Stopped (02/16/19 5847) dextrose 5% and sodium chloride 0.45% 50 mL/hr at 02/16/19 0307 EPINEPHrine infusion 1 mcg/min (02/16/19 0630) insulin regular 1.5 Units/hr (02/16/19 0251) nitroglycerin in dextrose Stopped (02/15/19 1308) phenylephrine 40 mcg/min (02/16/19 0837) sodium chloride 0.9% 30 mL/hr at 02/16/19 0307 vasopressin (VASOSTRICT) infusion (shock) PRN Medications albumin, albuterol, aspirin, bisacodyl, calcium gluconate IVPB, dextrose 10%, dextrose, HYD ROmorphone, HYDROmorphone, insulin regular, Magnesium replacement - ICU AND magnesium hernandez lfate AND magnesium sulfate, menthol throat lozenges, meperidine, ondansetron, oxyCODONE , phenol, polyethylene glycol, Potassium replacement - ICU AND potassium chloride AND* * potassium chloride AND potassium chloride, [START ON 02/17/2019] sodium phosphate HOME MEDS: Prior to Admission medications Medication Sig Start Date End Date Taking? Authorizing Provider amLODIPine (NORVASC) 5 mg tablet Take 5 mg by mouth Daily. Yes Historical Provider, aspirin 81 MG EC tablet Take 81 mg by mouth Daily. Yes Historical Provider, cholecalciferol (CHOLECALCIFEROL) 5000 units TABS Take 1 tablet by mouth Daily. 08/08/18 Dewey Pedraza MD fenofibrate (LOFIBRA, TRIGLIDE) 160 mg tablet Take 160 mg by mouth nightly. Yes Historica l ProviderMD folic acid 1 mg tablet Take 1 mg by mouth Daily. 07/26/18 Yes Historical Provider, furosemide (LASIX) 40 mg tablet Take 1 tablet by mouth Daily. 11/14/18 Yes Shea Pedraza MD insulin aspart (NOVOLOG) 100 units/mL injection Inject under the skin 3 times daily (befor e meals). Per sliding scale Yes Historical Provider, lisinopril (PRINIVIL, ZESTRIL) 20 mg tablet Take 40 mg by mouth Daily. 06/29/18 Yes Historic al Provider, metoprolol succinate (TOPROL-XL) 100 mg ER tablet Take 100 mg by mouth Daily. Yes Histori pita Provider, nitroglycerin (NITROSTAT) 0.[address] 0.4 mg under the tongue as needed for Ches t pain. Yes Historical Provider, rivaroxaban (XARELTO) 20 mg tablet Take 1 tablet by mouth Daily (with dinner). 09/21/17 Yes Historical Provider, rosuvastatin (CRESTOR) 20 mg tablet Take 20 mg by mouth nightly. Yes Historical Provider, SITagliptin (JANUVIA) 50 MG tablet Take 1 tablet by mouth Daily. 11/14/18 Yes Shea Andrews MD LABS: Recent Labs Lab 02/16/1943302/15/195 02/15/19 1339 02/15/19 0549 02/13/19 0652 WBC 18.13* 17.53* -- -- 10.24 10.43 HGB 11.4* 12.8* 11.6* < > 11.7* 11.4* HCT 33.3* 37.7* 34* < > 34.5* 33.0* PLT 137* 131* -- -- 239 204 MONOPCT 11.75 7.20 -- -- -- 8.98 < > = values in this interval not displayed. Recent Labs Lab 02/16/1943302/15/19 2339 02/15/19200102/15/19 1345 02/15/19 0549 02/11/19 0743 NA 151* -- -- -- 150* 142 < > 142 K 4.9 4.6 3.7 < > 4.9 4.3 < > 4.8 CL 117* -- -- -- 119* 114* < > 117* CO2 27 -- -- -- 19* 18* < > 19* BUN 43* -- -- -- 41* 49* < > 44* CALCIUM 7.5* -- -- -- 7.7* 9.0 < > 8.7 ALKPHOS -- -- -- -- -- -- -- 79 ALT -- -- -- -- -- -- -- 41 AST -- -- -- -- -- -- -- 59* < > = values in this interval not displayed. Phosphorus: Lab Results Component Value Date PHOS 3.7 02/15/2019 No results for input(s): LABALBU in the last 168 hours. Recent Labs Lab 02/16/1943302/15/19 1345 MG 2.6* 3.0* No results for input(s): AMYLASE in the last 168 hours. Recent Labs Lab 02/15/19232802/15/19200219 1819 PHART 7.383 7.329* 7.309* PO2ART 94 94 83 [id number] 39 43 39 [id number] 97 97 95 Recent Labs Lab 02/15/19 1345 02/15/19 0549 02/14/19 2309 INR 1.2 1.0 -- PTT 26 64* 52* Recent Labs Lab 02/11/19 0743 TSH 0.779 No results for input(s): TROPONINT in the last 168 hours. Invalid input(s): CKTOTAL, TROPONINI, CKMBINDEX PROBLEM LIST Principal Problem: NSTEMI (non-ST elevated myocardial infarction) Active Problems: A-fib Coronary atherosclerosis DM (diabetes mellitus) CKD (chronic kidney disease) stage 3, GFR 30-59 ml/min Acute coronary syndrome Chest pain Acute on chronic renal failure ASSESSMENT & PLAN S/P CABG -Cont ASA, Statin, Plavix. Hold BB while req pressors -Wean DAVEY/Epi as tolerated -Wean O2, encourage IS, ambulate -Continue CTs/TPWs for now CKD/JAMESON -Cr up to 2.18 today -Nephrology following, appreciate recommendations Continue ICU care for now Code Status: Full Code The patient has been seen, all new lab results and imaging reviewed, and the plan discussed with the attending provider, BELINDA Cash 02/16/2019 Associated attestation - Liban Nair MD - 02/16/2019 10:16 AM PDTPatient was seen, exami danis, labs, x-rays, treatment plan reviewed. Celeste Hicks ARNP - 02/16/2019 6:57 AM [facility] Service: Manager Net Cardiothoracic Surgery Consult and Follow Up Date/Time:02/16/2019 6:57 Provider: SHABBIR Bishop Hospital Day: LOS: 5 days Surgery/Procedure: Procedure(s) (LRB): CORONARY ARTERY BYPASS GRAFT X4 WITH TAKEDOWN LEFT INTERNAL MAMMARY ARTERY, EVH RIGHT SAPHO NUS VEIN (N/A) Post-Op Day: 1 Day Post-Op PROBLEM LIST Principal Problem: NSTEMI (non-ST elevated myocardial infarction) Active Problems: A-fib Coronary atherosclerosis DM (diabetes mellitus) CKD (chronic kidney disease) stage 3, GFR 30-59 ml/min Acute coronary syndrome Chest pain Acute on chronic renal failure Resolved Problems: * No resolved hospital problems. * SUBJECTIVE: Patient Summary: Shai Robertson is a 53 yo male with PMH of CAD s.p stent to mid RCA, PAF on xarelto, type 2 DM, HTN, HLD, CKD stage 3, psoriasis who presented to [facility] due to a 2 day history of chest pain and SOB. Initial troponin was mildly elevated and cont inued to rise after admission, peaked at 22. EKG did show inferolateral ST -T wave abnormali ties suggestive of ischemia. Coronary angiogram was performed on 02/11 with Ally Lacy which revealed restenosis of RCA lesion and severe 3 vessel CAD. TTE done 02/12 with LVEF 35-40% with marked apical hypokinesis and RVSP 58 mmHg. The patient was referred to CTS for consid eration for surgical revascularization. Last dose of xarelto was given on Saturday 02/10 and patient has remained on heparin gtt throughout hospitalization. ICU Timeline: 02/15 - To ICU s/p CABG x 4 + EVH with Dr. Nari 02/16 - Extubated shortly after midnight Events overnight: - HD stable, SR, on davey @40mcg, epi @1mcg - On 4L NC. - CT output 200 mL, UOP 518 mL OBJECTIVE: Vital Signs: BP 100/60 | Pulse 81 | Temp 37.2 C (99 F) (Infrared Device) Comment (Src): Samaria-Roland catheter | Resp 19 | Ht 1.803 m (5' 11") | Wt 98.5 kg (217 lb 2.5 oz) | SpO2 98% | BMI 3 0.29 kg/m EXAM GEN: awake, alert. Sitting up in chair NEURO: PERRLA, EOMI, no facial asymmetry, moving extremities HEENT: sclerae clear, nonicteric, oral mmm, pink, no exudates NECK: supple, trachea midline CV: RRR, S1/S2, no murmur, rub or gallop, peripheral pulses palpable, cap refill brisk CHEST: midline incision with dressing, c/d/i, no erythema or oozing, CT exiting subxiphoid process LUNGS: coarse b/l, no wheezing, rales or rhonchi, symmetric chest expansion, even/unlabored respirations on NC ABD: soft, nondistended, nontender to palpation, no masses EXTR: no edema, clubbing or cyanosis, RLE in sean wrap SKIN: warm, dry, no rash or mottling; hyperpigmentation in LLE, psoriasis scabs present acr oss bilateral hands LINES/TUBES: PIV, graff, CT x 2, R IJ cordis, A-line Diagnostic Studies: Available labs and images have been reviewed and will be addressed as indicated in the assessment and plan. ASSESSMENT & PLAN: 1. Severe 3 vessel CAD s/p CABG x 4 + EVH - Medical management per primary service (ASA, plavix, betablocker, statin) - extubated to NH. - Post operative management per CTS (chest tubes, pacer wires, gtt management, anticoagulat ion, transfusion) - Ambulate, PT/OT, IS 2. CKD stage 3 - Nephrology following - Risk for electrolyte imbalance. Follow closely. Replace per protocol - Risk for JAMESON post op, strict I/O, follow UOP closely 3. Type 2 diabetes mellitus - on endotool post op. Transition to SSI once stabilizes 4. PAF on xarelto -Xarelto held since 02/10. Primary service to resume when cleared. -Telemetry monitoring. Disposition: Per cardiothoracic surgery Code Status: Full Code *Please bill 30 minutes of critical care time spent evaluating the patient, reviewing the d librado and formulating a plan exclusive of all other procedures. SHABBIR Bishop 02/16/2019 6:57 Ritu Caicedo, AUTOMOTIVE SERVICE WRITER - 02/16/2019 12:46 AM PDT 02/16/19 0031 Respiratory Assessment Interventions ~ Suction Interventions ~ Suctioning Inline Catheter Respiratory Respiratory WDL WDL Breath Sounds All Dodge All [place] clear Observations Rhythm/Pattern (Respiratory) mechanical device Cough Cough Frequency with stimulation Cough Type good Secretions Secretions Amount small Secretions Color clear;white Secretions Consistency thick Suction Method endotracheal Pt extubated to nasal cannula without incident nor event. Slow even and unlabored respirati ons. Good vocal demonstration. HD stable. Nurse at bedside. No acute pulmonary issues or con cerns at this time and no evidence of stridor at this time. Connor Xavier RN - 02/15/2019 11:43 PM PDTABG on SP N-CPAP mode PH: 7.38 CO2: 39 HCO3: 23 SO2 97% Connor Xavier RN - 02/15/2019 10:52 PM PDTPatient switched to SPN-CPAP mode on ventilator. FiO2 .30, PE EP 8. RR currently 16, VT 600. 10:5 4 PM Connor Xavier RN - 02/15/2019 9:36 PM PDTDr. Nair called unit for update on p atient. Reviewed current drips, urine output and intubation status. Okay to leave patient in tubated overnight if unable to tolerate spontaneous mode on ventilator and if patient become s acidotic per Dr. Nair. Current drips: Neosynephrine: 70 mcg/min Epinephrine: off Urine output between 40-70 mL/hr so far. Sai Gonzalez MD - 1 1:05 PM PDT Hospital Problem List: Principal Problem: NSTEMI (non-ST elevated myocardial infarction) Active Problems: A-fib Coronary atherosclerosis DM (diabetes mellitus) CKD (chronic kidney disease) stage 3, GFR 30-59 ml/min Acute coronary syndrome Chest pain Acute on chronic renal failure The patient says that he feels 'ok' today. He denies any dizziness, cp, sob, abd pain, n/v . His urine output not accurately measured. The following portions of the patient's history were reviewed and updated as appropriate: l aboratory data, radiologic studies, allergies, current medications, and problem list. current Meds: balanced electrolytes in water - pH 7.4 30 mL/hr at 02/15/19 0652 dexmedetomidine EPINEPHrine infusion insulin regular (NOVOLIN R) infusion (EndoTool) phenylephrine P.E. BP 143/79 | Pulse 86 | Temp 36.8 C (98.2 F) (Temporal) | Resp 18 | Ht 1.803 m (5' 1 1") | Wt 94.1 kg (207 lb 7.3 oz) | SpO2 95% | BMI 28.93 kg/m General appearance: [facility] Lungs: Clear to auscultation by CHARISMA. There are no wheezes. Heart: Regular rate and rhythm without gallop. Nomurmur. +ve pericardial rub. Abdominal exam: Soft. Non-tender. CT tubes in place Extremities: Warm to touch with trace left leg edema. Right leg dressed. There is no cyan osis. Neurological: not sedated: does open eyes & follows commands, does move arms spontaneously & purposefully. He gave me the thumb up when he saw me. Rest could not be assessed accuratel y. Recent Labs 02/15/19 1209 02/15/19 1131 02/15/19 1110 02/15/19 0549 02/14/19 0559 02/13/19 0742 02/13/19 0652 BUN -- -- -- -- 49* 53* -- 51* CREA -- -- -- -- 1.9* 2.1* -- 2.23* EGFR -- -- -- -- 37* 33* -- 31* NA -- -- -- -- 142 140 -- 141 K -- -- -- -- 4.3 4.6 -- 5.3* CL -- -- -- -- 114* 114* -- 114* CO2 -- -- -- -- 18* 20* -- 18* CALCIUM -- -- -- -- 9.0 8.7 -- 8.4* PHOS -- -- -- -- 3.7 3.3 4.1 -- ALBUMIN -- -- -- -- 2.3* 2.5* -- -- HGB 8.5* 8.8* 8.5* < > 11.7* -- -- 11.4* HCT 25* 26* 25* < > 34.5* -- -- 33.0* < > = values in this interval not displayed. I/O last 3 completed shifts: In: 1799.5 [I.V.:1799.5] Out: 2450 [Urine:2450] I/O this shift: In: 2420 [I.V.:1200; Other:1220] Out: 3835 [Urine:685; Other:1900; Blood:1250] Assessment: Mr. Robertson is a 53 y.o. male patient with mild, stage 1 JAMESON (acute kidney injury), that is hemodynamic in the setting of NSTEMI & some diuresis on presentation. The most likely patho logy here is that of a mild vasomotor injury. 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) is possible. Relatively stable GFR since admission. Made less urine in OR, but u/o is picking up this afternoon. Has moderate proteinuria hyperK met acidosis corca is ok Mild anemia of chronic disease (CKD III) -He was admitted with: "NSTEMI (non-ST elevated myocardial infarction) ([facility])". -He presented with: "Chest Pain" Recommendations: No acute AUTOMOTIVE SERVICE WRITER indication Gentle IVF. Plan to stop IVF tomorrow if possible Minimize pressors as possible Soon: strict low sodium in the diet stressed Keep off Amlodipine (periph edema) Monitor VS closely & frequently Reinforce lytes protocol Strict I/O & daily weights. Dose all of meds to his current eGFR. Avoid all kinds of nephrotoxins. Target euvolumia with a MAP>70 mmHg as possible. I discussed with the primary team the case before the time of this encounter. Sai Chandler MD Veto Toro Chaplain - 02/15/2019 12:32 PM PDTON bypass report received @ 1002 Gave Pt ex- the ON pump repor t by phone [phone] @ 1870 OFF bypass report received @ 1318 Gave Pt's ex- the OFF pump report at 1205 Electronica lly signed by Chaplain Zuhair at 02/15/2019 12:34 PM Veto Toro Chaplain - 7:49 AM PDTPt Request ([facility] Referral). Met with Pt and family, Pt's daughter voiced her emotional distress, shared her fears r/t Pt's surgery. CP provided emotional support wi th open - ended questions facilitating expression of feelings and concerns. A prayer of yamileth clark for Pt's surgery was offered and accepted. Will f/u CP support. Lorena Damon RN - 02/15/2019 2:07 AM PDTPre op teaching started. Patient watched Pre op CABG learning videos. All questions answe red at this time. IS practiced with RN present. Patient can reach up to 1,000 mL with the IS . Patient will need a lot of encouragement to use IS. Patient set a pain goal level for post op pain at 4/10. aptt at 52 therapeutic 1x Nitroglycerin gtt off at 0226 patient complained of no CP while off the gtt. Will continue to monitor BLE pulses marked weak +1 palpable pulses. Hibiclens shower x2 patient shaved. BUE blood pressure: Left upper arm 124/75 Right upper arm 132/79 MRSA negative Pre-op check list completed Lorena Smith RN Dylan Bernardo Chaplain - 02/14/2019 7:50 PM PDTCABG Protocol pre-op visit. Pt, , dtr, g'dtr present. Chp expl ained status reports to family during surg. Pt said he's got some nerves about surg. Chp lis tened, affirmed they are normal feelings, assured pt of skill of surgeons, support of family , & prayers by chaplazenon. Pt & family thanked [facility] for visit & info. Chaplain Dylan Duboisy Sai Chandler MD - 02/14/2019 11:11 AM PDTFormatting of this note might be different from t migel original. Hospital Problem List: Principal Problem: NSTEMI (non-ST elevated myocardial infarction) Active Problems: A-fib Coronary atherosclerosis DM (diabetes mellitus) CKD (chronic kidney disease) stage 3, GFR 30-59 ml/min Acute coronary syndrome Chest pain Acute on chronic renal failure The patient says that he feels 'ok' today. He denies any dizziness, cp, sob, abd pain, n/v . His urine output not accurately measured. The following portions of the patient's history were reviewed and updated as appropriate: l aboratory data, radiologic studies, allergies, current medications, and problem list. amLODIPine 2.5 mg Oral Daily aspirin 81 mg Oral Daily docusate sodium 100 mg Oral Daily fenofibrate 160 mg Oral Nightly folic acid 1 mg Oral Daily insulin lispro 0-6 Units Subcutaneous 4x Daily AC and HS metoprolol succinate 100 mg Oral Daily rosuvastatin 20 mg Oral Nightly dextrose 10% heparin infusion 14 Units/kg/hr (02/14/19 0637) sodium chloride 0.9% 75 mL/hr at 02/13/19 2149 P.E. BP 129/80 | Pulse 80 | Temp 37.2 C (99 F) (Oral) | Resp 24 | Ht 1.803 m (5' 11") | Wt 95.3 kg (210 lb) | SpO2 94% | BMI 29.29 kg/m General appearance: Pleasant, not in acute distress. Lungs: Good A/E to auscultation bilaterally. There are no wheezes. Heart: Regular rate and rhythm without any rub, gallop. No murmur. Abdominal exam: Soft and nontender with normal bowel sounds. Extremities: Warm to touch with trace leg edema. There is no cyanosis or clubbing. Neurological: Awake, alert, and oriented to time, place, and person. Normal gross motor po wer. There is no asterixis. Recent Labs 02/14/19 0559 02/13/19 0742 02/13/19 0652 02/12/19 0512 BUN 53* -- 51* 47* CREA 2.1* -- 2.23* 2.2* EGFR 33* -- 31* 32* NA 140 -- 141 140 K 4.6 -- 5.3* 5.3* CL 114* -- 114* 117* CO2 20* -- 18* 19* CALCIUM 8.7 -- 8.4* 8.5 PHOS 3.3 4.1 -- -- ALBUMIN 2.5* -- -- -- HGB -- -- 11.4* 11.3* HCT -- -- 33.0* 32.1* I/O last 3 completed shifts: In: 3276.2 [P.O.:570; I.V.:2706.2] Out: 2049 [Urine:2049] No intake/output data recorded. Assessment: Mr. Robertson is a 53 y.o. male patient with mild, stage 1 JAMESON (acute kidney injury), that is hemodynamic in the setting of NSTEMI & some diuresis on presentation. The most likely patho logy here is that of a mild vasomotor injury. 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) is possible. Relatively stable GFR since admission. Has moderate proteinuria hyperK met acidosis corca is ok Mild anemia of chronic disease (CKD III) -He was admitted with: "NSTEMI (non-ST elevated myocardial infarction) (HCC)". -He presented with: "Chest Pain" Recommendations: No acute AUTOMOTIVE SERVICE WRITER indication Stop IVF Strict low sodium in the diet stressed Stop Amlodipine Vasoactive regimen as ordered otherwise Monitor BP closely & frequently Reinforce lytes protocol Strict I/O & daily weights. Dose all of meds to his current eGFR. Continue to avoid all kinds of nephrotoxins. Target euvolumia with a MAP>75 mmHg as possible. I discussed with the primary team the case at the time of this encounter. Sai Chandler MD Sue Calderon MD - 8:52 AM PDT [facility] Service: Hospitalist Progress Note Hospital Day: LOS: 3 days Post-Op Day: Day of Surgery SUBJECTIVE Patient Summary: 53-year-old male who has a known history of coronary arter y disease, status post stenting approximately in 2007, afib on xarelto, hypertension, HLD, D M type II who was transferred [facility] for chest pain and was found to have NSTEMI . Patient started on heparin gtt. Cardiology consulted, patient underwent angiogram on 02/11 and found to have multi vessel disease. Dr. Nair consulted. Hospital course complicated by Acute on chronic kidney disease. Dr. Chandler consulted, patient started on IV fluids. Events Overnight: Patient's chest pain has improved. No SOB. He has a history of chronic diarrhea since the last 2 to 3years and feels this is related to lactose intolerance. He cazares s had 3 small bowel movements since yesterday. He denies any abdominal pain but has been cazares ving nausea. Scheduled Medications amLODIPine 2.5 mg Oral Daily aspirin 81 mg Oral Daily docusate sodium 100 mg Oral Daily fenofibrate 160 mg Oral Nightly folic acid 1 mg Oral Daily insulin lispro 0-6 Units Subcutaneous 4x Daily AC and HS metoprolol succinate 100 mg Oral Daily rosuvastatin 20 mg Oral Nightly Continuous Infusions dextrose 10% heparin infusion 14 Units/kg/hr (02/14/19 0637) sodium chloride 0.9% 75 mL/hr at 02/13/19 4122 PRN Medications acetaminophen, Hypoglycemia Management AND POCT Glucose AND dextrose AND dextro se 10%, heparin, lidocaine 1%-EPINEPHrine 1:100,000, morphine, nitroglycerin, ondansetron, p olyethylene glycol, promethazine OBJECTIVE Vital Signs: BP 129/80 | Pulse 80 | Temp 37.2 C (99 F) (Oral) | Resp 24 | Ht 1.803 m (5' 11") | Wt 95.3 kg (210 lb) | SpO2 94% | BMI 29.29 kg/m Gen: AOX3. NAD HEENT: NCAT CV: RRR. S1S2 normal. no murmer, rubs, or gallops. No JVD Chest: bibasilar crackles Abd: SNTND. BS+, no gaurding or ridigity Ext: 1+ R>L edema. 2+ DP Neuro: Motor/sensations intact. 2+ DTRs DATA Recent Results (from the past 24 hour(s)) POC Glucose Result Value Ref Range Glucose, POC 185 (H) 65 - 99 mg/dL Troponin I Result Value Ref Range Troponin I 15.509 (HH) 0.00 - 0.04 ng/mL POC Glucose Result Value Ref Range Glucose, POC 123 (H) 65 - 99 mg/dL Troponin I Result Value Ref Range Troponin I 15.415 (HH) 0.00 - 0.04 ng/mL Renal Function Panel Result Value Ref Range Na 140 135 - 145 mmol/L K 4.6 3.5 - 4.9 mmol/L Cl 114 (H) 99 - 109 mmol/L CO2 20 (L) 23 - 32 mmol/L Anion Gap 11 5 - 20 mmol/L Glucose 113 (H) 65 - 99 mg/dL BUN 53 (H) 8 - 25 mg/dL Creatinine 2.1 (H) 0.70 - 1.30 mg/dL Calcium 8.7 8.5 - 10.5 mg/dL Albumin 2.5 (L) 3.6 - 5.0 g/dL Phosphorus 3.3 2.3 - 4.8 mg/dL Estimated GFR 33 (L) >60 mL/min/1.73m2 PTT Result Value Ref Range PTT 44 (H) 23 - 32 seconds Troponin I Result Value Ref Range Troponin I 12.832 (HH) 0.00 - 0.04 ng/mL Imaging Us Renal Limited Result Date: 02/12/2019 ULTRASOUND KIDNEYS AND BLADDER CLINICAL INFORMATION: Acute kidney injury. COMPARISON: None PROCEDURE: Evaluation of the kidneys and urinary bladder. FINDINGS: Right kidney: 10.7 cm. N o solid renal mass, hydronephrosis or definitive calculi. Left kidney: 12.2 cm. No solid terrie al mass, hydronephrosis or definitive calculi. Bladder: Normal. Negative renal ultrasound. Signed by: Radha Day, Wilda Sign Date/Time: 02/12/2019 10:43 A M Xr Chest 2 Vws Result Date: 02/12/2019 CHEST TWO VIEWS CLINICAL INFORMATION: Pre-operative CABG surgery. COMPARISON: XR CHEST 2 EW (09/11/2017); XR CHEST 1 VIEW (09/10/2017); CL LEFT HEART CATH RETRO (12/24/2007); FINDINGS: Lungs show congestive failure with venous distension and interstitial edema and airway cuff ing. Left heart predominance cardiomegaly marginally increased from 09/11/2017. Small pleura l effusions bilaterally. No pneumothorax or adenopathy. No significant bone abnormality. Lungs with congestive failure with interstitial edema and venous distension and small effus ions and cardiomegaly. Signed by: Radha Cash Gregory Sign Date/Time: 02/12/2019 9:08 AM PROBLEM LIST Principal Problem: NSTEMI (non-ST elevated myocardial infarction) Active Problems: A-fib Coronary atherosclerosis DM (diabetes mellitus) CKD (chronic kidney disease) stage 3, GFR 30-59 ml/min Acute coronary syndrome Chest pain Acute on chronic renal failure ASSESSMENT & PLAN NSTEMI: with t wave inversions in inferior leads and elevated troponin. Underwent angiogram on 02/11 found to have multi vessel disease with occluded RCA.Dr. Canales consulted. Continu e heparin gtt, ordered nitro prn pain and morphine prn. Continue aspirin, BB, statin. Holdcarson argueta. Dr. Nair consulted, plan for CABG while inpatient, currently scheduled for . Chronic diarrhea: [place] to be related to lactose intolerance. He has not had any diarrhea w hile he is been hospitalized. We will place him on a lactose free diet. Chronic systolic congestive heart failure: last echo done 11/01/[facility] show s EF of 45-50%. Repeat echo done showing EF 42%. Appears euvolemic. monitor I/Os and daily weights. Continue BB, no SEAN due to renal failure. Acute on chronic kidney disease stage III: baseline 1.3-1.6. Appears to be in setting of NS LIONEL. started on IV fluids, nephrology consulted. monitor creatinine avoid nephrotoxins. Hol d lisinopril. History of paroxysmal afib: currently in NSR. Holding xarelto due to surgery. Continue met oprolol, monitor no telemetry. DM type II: Holding januvia and novolog, start SSI, monitor BS, check a1c. Hypertension: BP controlled, continue norvasc, metoprolol, holding lisinopril. HLD: continue fenofibrate and crestor. Disposition: inpatient Code Status: Full Code Sue Avitia MD 02/14/2019 Juan Montenegro MD - 02/14/2019 8:46 AM PDTFormatting of this note might be different from the [facility] Service: Cardiology Progress Note Hospital Day: LOS: 3 days Post-Op Day: 3 Days Post-Op SUBJECTIVE Patient Summary: 53 AIM with CAD Events Overnight: Bouts of nausea OBJECTIVE Vital Signs: BP 129/80 | Pulse 80 | Temp 37.2 C (99 F) (Oral) | Resp 24 | Ht 1.803 m (5' 11") | Wt 95.3 kg (210 lb) | SpO2 94% | BMI 29.29 kg/m Physical Exam GENERAL: Pleasant, talkative in no apparent distress CHEST: Good inspiratory effort with no crackles, ronchi, or wheezes. CARDIAC: No lifts/heaves. PMI is discrete and non-displaced. Normal S1 and S2. No murmur s, rubs or gallops. ABDOMEN: Soft, non-tender, nondistended with normal, active bowel sounds. Normal abdominal pulsation without bruit. EXTREMITIES: No clubbing, cyanosis, or edema. PULSES: Right: radial 2+, femoral 2+ DP 2+, PT 2+ Left: radial 2+, femoral 2+ DP 2+, PT 2+ DATA 1. Recent Labs Lab 02/13/19 0652 02/12/19 0512 02/11/19 0743 HGB 11.4* 11.3* 11.9* WBC 10.43 9.26 9.78 ASSESSMENT & PLAN Feels baseline. Reviewed films with an eye toward possible PCI. Not an option. Await CABG Juan Canales MD 02/14/2019 Jacinda Damon RN - 02/13/2019 10:39 PM [id number] Patient complained of CP 1x nitroglycerin given after 5 min RN reassessed and patient stated that the pain has subsided. Patient SOB when ambulat ing to the restroom. 1L NC on while sleeping. Otherwise, hourly rounding uneventful. Lorena Smith RN Vanna Gonzalez MD - 02/13/2019 11:41 AM PDTFormatting of this note might be different from the origin al. Hospital Problem List: Principal Problem: NSTEMI (non-ST elevated myocardial infarction) Active Problems: A-fib Coronary atherosclerosis DM (diabetes mellitus) CKD (chronic kidney disease) stage 3, GFR 30-59 ml/min Acute coronary syndrome Chest pain Acute on chronic renal failure The patient says that he feels 'ok' today. He denies any dizziness, cp, sob, abd pain, n/v . His urine output not accurately measured. The following portions of the patient's history were reviewed and updated as appropriate: l aboratory data, radiologic studies, allergies, current medications, and problem list. amLODIPine 2.5 mg Oral Daily aspirin 81 mg Oral Daily docusate sodium 100 mg Oral Daily fenofibrate 160 mg Oral Nightly folic acid 1 mg Oral Daily insulin lispro 0-6 Units Subcutaneous 4x Daily AC and HS metoprolol succinate 100 mg Oral Daily rosuvastatin 20 mg Oral Nightly dextrose 10% heparin infusion 12 Units/kg/hr (02/13/19 8402) sodium chloride 0.9% 1,000 mL (02/13/19 2990) P.E. BP 115/72 | Pulse 78 | Temp 37.2 C (98.9 F) (Oral) | Resp 23 | Ht 1.803 m (5' 11") | Wt 95.3 kg (210 lb) | SpO2 94% | BMI 29.29 kg/m General appearance: Pleasant, not in acute distress. Lungs: Good A/E to auscultation bilaterally. There are no wheezes. Heart: Regular rate and rhythm without any rub, gallop. No murmur. Abdominal exam: Soft and nontender with normal bowel sounds. Extremities: Warm to touch with trace leg edema. There is no cyanosis or clubbing. Neurological: Awake, alert, and oriented to time, place, and person. Normal gross motor po wer. There is no asterixis. Recent Labs 02/13/19 0652 02/12/19 0512 02/11/19 0743 BUN 51* 47* 44* CREA 2.23* 2.2* 1.8* EGFR 31* 32* 40* NA 141 140 142 K 5.3* 5.3* 4.8 CL 114* 117* 117* CO2 18* 19* 19* CALCIUM 8.4* 8.5 8.7 ALBUMIN -- -- 2.6* HGB 11.4* 11.3* 11.9* HCT 33.0* 32.1* 33.6* I/O last 3 completed shifts: In: 3712.8 [P.O.:300; I.V.:3412.8] Out: 615 [Urine:615] No intake/output data recorded. Assessment: Mr. Robertson is a 53 y.o. male patient with mild, stage 1 JAMESON (acute kidney injury), that is hemodynamic in the setting of NSTEMI & some diuresis last night. The most likely pathology here is that of a mild vasomotor injury. Has moderate proteinuria Mild hyperK Mild met acidosis humphrey is ok Mild anemia of chronic disease (CKD III) -He was admitted with: "NSTEMI (non-ST elevated myocardial infarction) (HCC)". -He presented with: "Chest Pain" Recommendations: I have discussed again with the patient today the renal risks of CV surgery in the setting of his chronic kidney disease & the new mild GFR decline. He understands that he is in the l ow-moderate risk category for JAMESON from his planned surgery. If at all possible, delaying the surgery towards the end of the week will likely give the kidneys a better chance at avertin g a new JAMESON. Having said that, I will have no objection from the renal perspective for such a surgery, as long as the customary precautions to decrease the risk of JAMESON are undertaken. 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 Dose all of meds to his current eGFR. Continue to avoid all kinds of nephrotoxins. Target euvolumia with a MAP>75 mmHg as possible. I discussed with the primary team the case at the time of this encounter. Sai Chandler MD Juan Montenegro MD - 02/13/2019 8:59 AM PDT . [facility] Service: Cardiology Progress Note Hospital Day: LOS: 2 days Post-Op Day: 2 Days Post-Op SUBJECTIVE Patient Summary: 53 AIM with CAD Events Overnight: none OBJECTIVE Vital Signs: BP 115/72 | Pulse 78 | Temp 37.2 C (98.9 F) (Oral) | Resp 23 | Ht 1.803 m (5' 11") | Wt 95.3 kg (210 lb) | SpO2 94% | BMI 29.29 kg/m Physical Exam GENERAL: Pleasant, talkative in no apparent distress CHEST: Good inspiratory effort with no crackles, ronchi, or wheezes. CARDIAC: No lifts/heaves. PMI is discrete and non-displaced. Normal S1 and S2. No murmur s, rubs or gallops. ABDOMEN: Soft, non-tender, nondistended with normal, active bowel sounds. Normal abdominal pulsation without bruit. EXTREMITIES: No clubbing, cyanosis, or edema. PULSES: Right: radial 2+, femoral 2+ DP 2+, PT 2+ Left: radial 2+, femoral 2+ DP 2+, PT 2+ DATA 1. Recent Labs Lab 02/13/19 0652 02/12/19 0512 02/11/19 0743 HGB 11.4* 11.3* 11.9* WBC 10.43 9.26 9.78 ASSESSMENT & PLAN Stable, no C/O Await CABG later this week. Juan Canales MD 02/13/2019 Moreno Calderon MD - 02/13/2019 8:51 AM PDTFormatting of this note might be different from the [facility] Service: Hospitalist Progress Note Hospital Day: LOS: 2 days Post-Op Day: Day of Surgery SUBJECTIVE Patient Summary: 53-year-old male who has a known history of coronary arter y disease, status post stenting approximately in 2007, afib on xarelto, hypertension, HLD, D M type II who was transferred from [facility] for chest pain and was found to have NSTEMI . Patient started on heparin gtt. Cardiology consulted, patient underwent angiogram on 02/11 and found to have multi vessel disease. Dr. Nair consulted. Hospital course complicated by Acute on chronic kidney disease. Dr. Chandler consulted, patient started on IV fluids. Events Overnight: Patient's chest pain has improved. No SOB. Scheduled Medications amLODIPine 2.5 mg Oral Daily aspirin 81 mg Oral Daily fenofibrate 160 mg Oral Nightly folic acid 1 mg Oral Daily insulin lispro 0-6 Units Subcutaneous 4x Daily AC and HS metoprolol succinate 100 mg Oral Daily rosuvastatin 20 mg Oral Nightly Continuous Infusions dextrose 10% heparin infusion 12 Units/kg/hr (02/13/19 9670) sodium chloride 0.9% 1,000 mL (02/13/19 9180) PRN Medications acetaminophen, Hypoglycemia Management AND POCT Glucose AND dextrose AND dextro se 10%, heparin, lidocaine 1%-EPINEPHrine 1:100,000, morphine, nitroglycerin, ondansetron, p romethazine OBJECTIVE Vital Signs: BP 115/72 | Pulse 78 | Temp 37.2 C (98.9 F) (Oral) | Resp 23 | Ht 1.803 m (5' 11") | Wt 95.3 kg (210 lb) | SpO2 94% | BMI 29.29 kg/m Gen: AOX3. NAD HEENT: NCAT CV: RRR. S1S2 normal. no murmer, rubs, or gallops. No JVD Chest: bibasilar crackles Abd: SNTND. BS+, no gaurding or ridigity Ext: 1+ R>L edema. 2+ DP Neuro: Motor/sensations intact. 2+ DTRs DATA Recent Results (from the past 24 hour(s)) ECHO Complete Result Value Ref Range BASELINE BLOOD PRESSURE 117/71 mmHg Patient Weight (lbs) 205 Patient Height 71 Heart Rate 78 LVEF-TTE TRANSTHORACIC ECHO 42 % Inferior Vena Cava Diameter at Inspiration 0.8 cm Inferior Vena Cava Diameter at Expiration 2.43 cm RA PRESSURE 8 mmHg LVIDd 5.06 cm FS 17 % LA volume 93.66 mL Ascending aorta 3.22 cm AV regurgitation pressure 1/2 time 403.18 msec AV mean gradient 2.36 mmHg Aortic Valve Area by Continuity VTI 2.53 cm2 MV mean gradient 1.4 mmHg MV Area by P 1/2 method 3.94 cm2 MV Area by Continuity Equation 2.46 cm2 PV peak gradient 2.16 mmHg Pulm vein "A" wave 79.58 msec Pulm vein S/D ratio 45.74 LVOT diameter 2.31 cm LVOT peak [place] 59.91 cm/s LVOT peak VTI 12.61 cm AV peak [place] 96.56 cm/s AV VTI 20.85 cm MR max [place] 417 cm/s AV peak gradient 3.73 mmHg MV peak gradient 4.6 mmHg TV mean gradient 0.85 mmHg TV peak gradient 1.41 mmHg PV mean gradient 1.24 mmHg MV Pressure 1/2 time 55.84 msec Pulm Vein Peak S [place] 54.43 cm/s Pulm Vein Peak D [place] 46.07 cm/s LA Volume Index 44 mL/m2 AV LVOT Peak Gradient 1.44 mmHg AV LVOT Mean Gradient 0.86 mmHg TR Peak Gradient 50 mmHg RV Free Wall Peak S' 10.17 cm/s TR Velocity 353.02 cm PI Peak Velocity 73.51 cm/s LV Diastolic Length 4C 10.26 cm RV Diastolic Basal Diameter 3.61 cm LV Cavazos's Biplane EF 41 % LV ED Volume (Cavazos's) 172.18 ml LV ED Volume Index 80 ml/m2 LV ES Volume 102.13 ml LVOT Mean Velocity 43.92 cm/s RVSP Estimated 58 mmHg MV Deceleration Time 175.97 msec MV E/A Ratio 2.69 MV Mean Velocity 51.68 cm/s MV Peak A-Wave 40.07 cm/s MV Peak E-Wave 107.62 cm/s TV Deceleration Time 222.21 msec TV Mean Velocity 44.14 cm/s TV Peak A-Wave 64.22 cm/s TV Peak E-Wave 59.31 cm/s PV Mean Velocity 53.45 cm/s PV Regurgitation Velocity 132.5 cm/s AV Deceleration [place] 224.61 cm/s2 AV Deceleration Time 1,390.28 msec AV Mean Velocity 74.39 cm/s RA Area 17.7 cm2 RA Dimension 5.3 cm LA/Aorta Ratio 1.16 LA Area 23.86 cm2 LA Major 0.2085 cm LV ES Volume Index 48 ml/m2 Cardiac Output 4.12 l/min Cardiac Index 1.93 l/min/m2 ST Junction Diameter 3.11 Sinus Diameter 3.62 Aortic Root Diameter 3.72 cm IVS Diastolic Thickness MM 1.46 cm LVPW Diastolic Thickness MM 1.23 cm IVS Systolic Thickness MM 1.85 cm LV Systolic Diameter MM 4.2 cm LVPW Systolic Thickness MM 1.74 cm AV Cusp Seperation MM 2.43 cm LA Systolic Diameter MM 4.31 cm TAPSE 1.44 cm POC Glucose Result Value Ref Range Glucose, POC 212 (H) 65 - 99 mg/dL Chloride, Urine, Random Result Value Ref Range RANDOM URINE CHLORIDE 50 mmol/L Creatinine, Urine, Random Result Value Ref Range Creatinine, random urine 253.0 mg/dL Sodium, Urine, Random Result Value Ref Range Sodium, Random urine 27 mmol/L Urea Nitrogen, Urine, Random Result Value Ref Range Urea Nitrogen, Urine 570.0 mg/dL Urinalysis with Microscopic with Culture if Indicated Result Value Ref Range Color, UA YELLOW Clarity, UA HAZY Specific [place], Urine 1.020 1.002 - 1.030 Leukocyte esterase, UA NEGATIVE NEG Nitrite, UA NEGATIVE NEG Urobilinogen, Ur 2.0 (H) <1.1 mg/dL Protein, Urine (mg/dL) >500 (A) NEG mg/dL pH, Urine 5.0 5.0 - 8.0 Blood, UA SMALL (A) NEG Ketones, UA NEGATIVE NEG mg/dL Bilirubin, UA NEGATIVE NEG Glucose, Ur 50 (A) NEG mg/dL WBC UA 3-5 0 - 5 /hpf RBC UA 0-2 0 - 2 /hpf SQUAMOUS EPITHELIAL UA 6-10 /lpf BACTERIA UA NONE SEEN NONE MUCUS UA 1+ HYALINE CASTS UA 6-10 AMORPHOUS CRYSTALS 1+ Protein/Creatinine Ratio, Urine Result Value Ref Range PRO/CREA RATIO,URINE 1.364 Protein, Urine, Random Result Value Ref Range Protein, Urine 345 mg/dL Troponin I Result Value Ref Range Troponin I 19.414 (HH) 0.00 - 0.04 ng/mL POC Glucose Result Value Ref Range Glucose, POC 135 (H) 65 - 99 mg/dL Troponin I Result Value Ref Range Troponin I 19.769 (HH) 0.00 - 0.04 ng/mL PTT Result Value Ref Range PTT 47 (H) 23 - 32 seconds Basic Metabolic Panel Result Value Ref Range Na 141 135 - 145 mmol/L K 5.3 (H) 3.5 - 4.9 mmol/L Cl 114 (H) 99 - 109 mmol/L CO2 18 (L) 23 - 32 mmol/L Anion Gap 14 5 - 20 mmol/L Glucose 103 (H) 65 - 99 mg/dL BUN 51 (H) 8 - 25 mg/dL Creatinine 2.23 (H) 0.70 - 1.30 mg/dL BUN/Creatinine Ratio 23 Calcium 8.4 (L) 8.5 - 10.5 mg/dL Estimated GFR 31 (L) >60 mL/min/1.73m2 CBC with Differential Result Value Ref Range WBC 10.43 3.80 - 11.00 K/uL RBC 3.53 (L) 4.20 - 5.70 M/uL Hemoglobin 11.4 (L) 13.2 - 17.0 g/dL Hematocrit 33.0 (L) 39.0 - 50.0 % MCV 93.5 80.0 - 100.0 fl MCH 32.3 27.0 - 34.0 pg MCHC 34.5 32.0 - 35.5 g/dL RDW-SD 42.9 37 - 53 fl Platelet Count 204 150 - 400 K/uL MPV 8.6 fl Diff Type AUTOMATED % Neutrophils 75.85 % % Lymphocytes 13.24 % Monocyte % 8.98 % Eosinophils % 1.52 % Basophils % 0.41 % Neutrophils, Absolute 7.91 (H) 1.90 - 7.40 K/uL Absolute Lymphocytes 1.38 1.00 - 3.90 K/uL Absolute Monocytes 0.94 (H) 0.00 - 0.80 K/uL Eosinophils, Absolute 0.16 0.00 - 0.50 K/uL Basophils, Absolute 0.04 0.00 - 0.10 K/uL Troponin I Result Value Ref Range Troponin I 16.442 (HH) 0.00 - 0.04 ng/mL Imaging Us Renal Limited Result Date: 02/12/2019 ULTRASOUND KIDNEYS AND BLADDER CLINICAL INFORMATION: Acute kidney injury. COMPARISON: None PROCEDURE: Evaluation of the kidneys and urinary bladder. FINDINGS: Right kidney: 10.7 cm. N o solid renal mass, hydronephrosis or definitive calculi. Left kidney: 12.2 cm. No solid terrie al mass, hydronephrosis or definitive calculi. Bladder: Normal. Negative renal ultrasound. Signed by: Radha Day Paige Sign Date/Time: 02/12/2019 10:43 A M Xr Chest 2 Vws Result Date: 02/12/2019 CHEST TWO VIEWS CLINICAL INFORMATION: Pre-operative CABG surgery. COMPARISON: XR CHEST 2 EW (09/11/2017); XR CHEST 1 VIEW (09/10/2017); CL LEFT HEART CATH RETRO (12/24/2007); FINDINGS: Lungs show congestive failure with venous distension and interstitial edema and airway cuff ing. Left heart predominance cardiomegaly marginally increased from 09/11/2017. Small pleura l effusions bilaterally. No pneumothorax or adenopathy. No significant bone abnormality. Lungs with congestive failure with interstitial edema and venous distension and small effus ions and cardiomegaly. Signed by: Radha Cash Gregory Sign Date/Time: 02/12/2019 9:08 AM PROBLEM LIST Principal Problem: NSTEMI (non-ST elevated myocardial infarction) Active Problems: A-fib Coronary atherosclerosis DM (diabetes mellitus) CKD (chronic kidney disease) stage 3, GFR 30-59 ml/min Acute coronary syndrome Chest pain Acute on chronic renal failure ASSESSMENT & PLAN NSTEMI: with t wave inversions in inferior leads and elevated troponin. Underwent angiogram on 02/11 found to have multi vessel disease with occluded RCA.Dr. Canales consulted. Continu e heparin gtt, ordered nitro prn pain and morphine prn. Continue aspirin, BB, statin. Holdin g xerelto. Dr. Nair consulted, plan for CABG while inpatient, timing to be determined. Acute on chronic systolic congestive heart failure: last echo done 11/01/18 from [facility] here shows EF of 45-50%. Repeat echo done showing EF 42%. Appears euvolemic. monitor I/Os a nd daily weights. Continue BB, no SEAN due to renal failure. Acute on chronic kidney disease stage III: baseline 1.3-1.6. Appears to be cardiorenal, sta rted on IV fluids, nephrology consulted. monitor creatinine avoid nephrotoxins. Hold lisinop ril. History of paroxysmal afib: currently in NSR. Holding xarelto due to cardiac cath. Continue metoprolol, monitor no telemetry. DM type II: Holding januvia and novolog, start SSI, monitor BS, check a1c. Hypertension: BP controlled, continue norvasc, metoprolol, holding lisinopril. HLD: continue fenofibrate and crestor. Disposition: inpatient Code Status: Full Code Sue Avitia MD 02/13/2019 Michael Osborne, ROCAEL - 02/13/2019 6:59 AM PDTPt needs reminders to use urinal when getting up to use bathroom. S OB after ambulating back to bed. PRN Phenergan x1 for nausea. Able to tolerate 25-50% of dinner. Trop 19.769 (expected value, per lead. Last 2 values: ). R groin site C/D/I. Per dayshift, CABG anticipated later this week (possibly as early as Tue). Started to prov joanne pt education on CABG. Open Heart Surgery booklet obtained, at bedside. Pt sleeping. Heparin gtt therapeutic in AM. All cares & concerns will be passed on to dayshift. Sue Calderon MD - 02/12/2019 4:50 PM PDTFormatting of thi s note might be different from the original. [facility] Service: Hospitalist Progress Note Hospital Day: LOS: 1 day Post-Op Day: Day of Surgery SUBJECTIVE Patient Summary: 53-year-old male who has a known history of coronary arter y disease, status post stenting approximately in 2007, afib on xarelto, hypertension, HLD, D M type II who was transferred from [facility] for chest pain and was found to have NSTEMI . Patient started on heparin gtt. Cardiology consulted, patient underwent angiogram on 02/11 and found to have multi vessel disease. Dr. Nair consulted. Hospital course complicated by Acute on chronic kidney disease. Dr. Chandler consulted, patient started on IV fluids. Events Overnight: Patient's chest pain has improved with nitroglycerin but does feel SOB. Scheduled Medications amLODIPine 5 mg Oral Daily aspirin 81 mg Oral Daily fenofibrate 160 mg Oral Nightly folic acid 1 mg Oral Daily insulin lispro 0-6 Units Subcutaneous 4 times per day metoprolol succinate 100 mg Oral Daily rosuvastatin 20 mg Oral Nightly Continuous Infusions dextrose 10% heparin infusion 12 Units/kg/hr (02/12/19 0756) sodium chloride 0.9% 75 mL/hr at 02/12/19 1452 PRN Medications acetaminophen, Hypoglycemia Management AND POCT Glucose AND dextrose AND dextro se 10%, heparin, lidocaine 1%-EPINEPHrine 1:100,000, morphine, nitroglycerin, ondansetron OBJECTIVE Vital Signs: BP 106/64 | Pulse 81 | Temp 37.7 C (99.9 F) (Oral) | Resp 24 | Ht 1.803 m (5' 11") | Wt 93.2 kg (205 lb 6.4 oz) | SpO2 94% | BMI 28.65 kg/m Gen: AOX3. NAD HEENT: NCAT CV: RRR. S1S2 normal. no murmer, rubs, or gallops. No JVD Chest: bibasilar crackles Abd: SNTND. BS+, no gaurding or ridigity Ext: 1+ R>L edema. 2+ DP Neuro: Motor/sensations intact. 2+ DTRs DATA Recent Results (from the past 24 hour(s)) ECG 12 lead Result Value Ref Range VENTRICULAR RATE EKG 82 BPM ATRIAL RATE 82 BPM P-R INTERVAL 138 ms QRS DURATION 118 ms Q-T INTERVAL 372 ms Q-T INTERVAL (CORRECTED) 434 ms P WAVE AXIS 45 degrees QRS AXIS 73 degrees T AXIS -80 degrees INTERPRETATION TEXT Normal sinus rhythm Incomplete left bundle branch block ST & T wave abnormality, consider inferior ischemia ST & T wave abnormality, consider anterolateral ischemia Abnormal ECG When compared with ECG of 11-FEB-2019 08:53, No significant change since previous ECG Confirmed by JULIAN CANALES MD ([id number]) on 02/12/2019 9:29:42 AM POC Glucose Result Value Ref Range Glucose, POC 127 (H) 65 - 99 mg/dL PTT Result Value Ref Range PTT 46 (H) 23 - 32 seconds POC Glucose Result Value Ref Range Glucose, POC 141 (H) 65 - 99 mg/dL POC Glucose Result Value Ref Range Glucose, POC 126 (H) 65 - 99 mg/dL ECG 12 lead Result Value Ref Range VENTRICULAR RATE EKG 68 BPM ATRIAL RATE 68 BPM P-R INTERVAL 126 ms QRS DURATION 116 ms Q-T INTERVAL 404 ms Q-T INTERVAL (CORRECTED) 429 ms P WAVE AXIS 21 degrees QRS AXIS 63 degrees T AXIS -137 degrees INTERPRETATION TEXT Normal sinus rhythm Possible Left atrial enlargement Incomplete left bundle branch block ST & T wave abnormalities, consider inferolateral ischemia Abnormal ECG When compared with ECG of 11-FEB-2019 18:25, No significant change was found Confirmed by Agapito Gómez MD ([id number]) on 02/12/2019 8:25:42 AM CK Total Result Value Ref Range CK TOTAL 309 55 - 400 U/L CBC no Differential Result Value Ref Range WBC 9.26 3.80 - 11.00 K/uL RBC 3.42 (L) 4.20 - 5.70 M/uL Hemoglobin 11.3 (L) 13.2 - 17.0 g/dL Hematocrit 32.1 (L) 39.0 - 50.0 % MCV 93.9 80.0 - 100.0 fl MCH 33.0 27.0 - 34.0 pg MCHC 35.1 32.0 - 35.5 g/dL RDW-SD 45.1 37 - 53 fl Platelet Count 210 150 - 400 K/uL MPV 8.9 fl Basic Metabolic Panel Result Value Ref Range Na 140 135 - 145 mmol/L K 5.3 (H) 3.5 - 4.9 mmol/L Cl 117 (H) 99 - 109 mmol/L CO2 19 (L) 23 - 32 mmol/L Anion Gap 9 5 - 20 mmol/L Glucose 110 (H) 65 - 99 mg/dL BUN 47 (H) 8 - 25 mg/dL Creatinine 2.2 (H) 0.70 - 1.30 mg/dL BUN/Creatinine Ratio 21 Calcium 8.5 8.5 - 10.5 mg/dL Estimated GFR 32 (L) >60 mL/min/1.73m2 PTT Result Value Ref Range PTT 49 (H) 23 - 32 seconds POC Glucose Result Value Ref Range Glucose, POC 115 (H) 65 - 99 mg/dL Troponin I Result Value Ref Range Troponin I 22.34 (HH) 0.00 - 0.04 ng/mL ECHO Complete Result Value Ref Range BASELINE BLOOD PRESSURE 117/71 mmHg Patient Weight (lbs) 205 Patient Height 71 Heart Rate 78 LVEF-TTE TRANSTHORACIC ECHO 42 % Inferior Vena Cava Diameter at Inspiration 0.8 cm Inferior Vena Cava Diameter at Expiration 2.43 cm RA PRESSURE 8 mmHg LVIDd 5.06 cm FS 17 % LA volume 93.66 mL Ascending aorta 3.22 cm AV regurgitation pressure 1/2 time 403.18 msec AV mean gradient 2.36 mmHg Aortic Valve Area by Continuity VTI 2.53 cm2 MV mean gradient 1.4 mmHg MV Area by P 1/2 method 3.94 cm2 MV Area by Continuity Equation 2.46 cm2 PV peak gradient 2.16 mmHg Pulm vein "A" wave 79.58 msec Pulm vein S/D ratio 45.74 LVOT diameter 2.31 cm LVOT peak [place] 59.91 cm/s LVOT peak VTI 12.61 cm AV peak [place] 96.56 cm/s AV VTI 20.85 cm MR max [place] 417 cm/s AV peak gradient 3.73 mmHg MV peak gradient 4.6 mmHg TV mean gradient 0.85 mmHg TV peak gradient 1.41 mmHg PV mean gradient 1.24 mmHg MV Pressure 1/2 time 55.84 msec Pulm Vein Peak S [place] 54.43 cm/s Pulm Vein Peak D [place] 46.07 cm/s LA Volume Index 44 mL/m2 AV LVOT Peak Gradient 1.44 mmHg AV LVOT Mean Gradient 0.86 mmHg TR Peak Gradient 50 mmHg RV Free Wall Peak S' 10.17 cm/s TR Velocity 353.02 cm PI Peak Velocity 73.51 cm/s LV Diastolic Length 4C 10.26 cm RV Diastolic Basal Diameter 3.61 cm LV Cavazos's Biplane EF 41 % LV ED Volume (Cavazos's) 172.18 ml LV ED Volume Index 80 ml/m2 LV ES Volume 102.13 ml LVOT Mean Velocity 43.92 cm/s RVSP Estimated 58 mmHg MV Deceleration Time 175.97 msec MV E/A Ratio 2.69 MV Mean Velocity 51.68 cm/s MV Peak A-Wave 40.07 cm/s MV Peak E-Wave 107.62 cm/s TV Deceleration Time 222.21 msec TV Mean Velocity 44.14 cm/s TV Peak A-Wave 64.22 cm/s TV Peak E-Wave 59.31 cm/s PV Mean Velocity 53.45 cm/s PV Regurgitation Velocity 132.5 cm/s AV Deceleration [place] 224.61 cm/s2 AV Deceleration Time 1,390.28 msec AV Mean Velocity 74.39 cm/s RA Area 17.7 cm2 RA Dimension 5.3 cm LA/Aorta Ratio 1.16 LA Area 23.86 cm2 LA Major 0.2085 cm LV ES Volume Index 48 ml/m2 Cardiac Output 4.12 l/min Cardiac Index 1.93 l/min/m2 ST Junction Diameter 3.11 Sinus Diameter 3.62 Aortic Root Diameter 3.72 cm IVS Diastolic Thickness MM 1.46 cm LVPW Diastolic Thickness MM 1.23 cm IVS Systolic Thickness MM 1.85 cm LV Systolic Diameter MM 4.2 cm LVPW Systolic Thickness MM 1.74 cm AV Cusp Seperation MM 2.43 cm LA Systolic Diameter MM 4.31 cm TAPSE 1.44 cm POC Glucose Result Value Ref Range Glucose, POC 212 (H) 65 - 99 mg/dL Urinalysis with Microscopic with Culture if Indicated Result Value Ref Range Color, UA YELLOW Clarity, UA HAZY Specific [place], Urine 1.020 1.002 - 1.030 Leukocyte esterase, UA NEGATIVE NEG Nitrite, UA NEGATIVE NEG Urobilinogen, Ur 2.0 (H) <1.1 mg/dL Protein, Urine (mg/dL) >500 (A) NEG mg/dL pH, Urine 5.0 5.0 - 8.0 Blood, UA SMALL (A) NEG Ketones, UA NEGATIVE NEG mg/dL Bilirubin, UA NEGATIVE NEG Glucose, Ur 50 (A) NEG mg/dL WBC UA 3-5 0 - 5 /hpf RBC UA 0-2 0 - 2 /hpf SQUAMOUS EPITHELIAL UA 6-10 /lpf BACTERIA UA NONE SEEN NONE MUCUS UA 1+ HYALINE CASTS UA 6-10 AMORPHOUS CRYSTALS 1+ Troponin I Result Value Ref Range Troponin I 19.414 (HH) 0.00 - 0.04 ng/mL Imaging Us Renal Limited Result Date: 02/12/2019 ULTRASOUND KIDNEYS AND BLADDER CLINICAL INFORMATION: Acute kidney injury. COMPARISON: None PROCEDURE: Evaluation of the kidneys and urinary bladder. FINDINGS: Right kidney: 10.7 cm. N o solid renal mass, hydronephrosis or definitive calculi. Left kidney: 12.2 cm. No solid terrie al mass, hydronephrosis or definitive calculi. Bladder: Normal. Negative renal ultrasound. Signed by: Radha Day, Wilda Sign Date/Time: 02/12/2019 10:43 A M Xr Chest 2 Vws Result Date: 02/12/2019 CHEST TWO VIEWS CLINICAL INFORMATION: Pre-operative CABG surgery. COMPARISON: XR CHEST 2 EW (09/11/2017); XR CHEST 1 VIEW (09/10/2017); CL LEFT HEART CATH RETRO (12/24/2007); FINDINGS: Lungs show congestive failure with venous distension and interstitial edema and airway cuff ing. Left heart predominance cardiomegaly marginally increased from 09/11/2017. Small pleura l effusions bilaterally. No pneumothorax or adenopathy. No significant bone abnormality. Lungs with congestive failure with interstitial edema and venous distension and small effus ions and cardiomegaly. Signed by: Radha Cash, Johny Sign Date/Time: 02/12/2019 9:08 AM PROBLEM LIST Principal Problem: NSTEMI (non-ST elevated myocardial infarction) Active Problems: A-fib Coronary atherosclerosis DM (diabetes mellitus) CKD (chronic kidney disease) stage 3, GFR 30-59 ml/min Acute coronary syndrome Chest pain Acute on chronic renal failure ASSESSMENT & PLAN NSTEMI: with t wave inversions in inferior leads and elevated troponin. Underwent angiogram on 02/11 found to have multi vessel disease with occluded RCA.Dr. Canales consulted. Continu e heparin gtt, ordered nitro prn pain and morphine prn. Continue aspirin, BB, statin. Holdin g xerelto. Dr. Nair consulted, plan for CABG while inpatient, timing to be determined. Acute on chronic systolic congestive heart failure: last echo done 11/01/18 from [facility] here shows EF of 45-50%. Repeat echo done showing EF 42%. Patient started on IV lasix x 1 as he appeared clinically volume overloaded as evident by bibasilar crackles, lower extremity edema, and elevated BNP. However, today had worsening creatinine, and now started on IV flui ds. monitor I/Os and daily weights. Continue BB Acute on chronic kidney disease stage III: baseline 1.3-1.6. Appears to be cardiorenal, sta rted on IV fluids, nephrology consulted. monitor creatinine avoid nephrotoxins. Hold lisinop ril. History of paroxysmal afib: currently in NSR. Holding xarelto due to cardiac cath. Continue metoprolol, monitor no telemetry. DM type II: Holding januvia and novolog, start SSI, monitor BS, check a1c. Hypertension: BP controlled, continue norvasc, metoprolol, holding lisinopril. HLD: continue fenofibrate and crestor. Disposition: inpatient Code Status: Full Code Sue Avitia MD 02/12/2019 relio, JANNETTE Cantor SCALE SHOOTER - 02/12/2019 8:54 AM PDTCalFormerly [facility] informed that patient picked up h is Xarelto on 02/10/19. Per documentation and patient information. Patient took his last dos e of Xarelto on Tuesday morning (02/10/19). He then presented to [facility] ED on the af ternoon of 02/10 and was transferred to [facility] early Tuesday (02/11/2019). Additionally, per ED documentation, the patient has not seen a Foundation Coordinator in 8 years, how ever he was seen by Dr. Becerra 2 years ago and has had Xarelto and Echo's ordered by DrWhit Has him. Dr. Canales notified and will continue to see patient for the next few days. Patient susie l be followed by Dr. Becerra after surgery. Electronically signed by Liban Nair MD at 01/24 11:43 AM Moni, Juan Price MD - 02/12/2019 8:48 AM PDT [facility] Service: Cardiology Progress Note Hospital Day: LOS: 1 day Post-Op Day: 1 Day Post-Op SUBJECTIVE Patient Summary: 53 AIM with CAD. Events Overnight: none OBJECTIVE Vital Signs: BP 117/71 | Pulse 80 | Temp 36.4 C (97.5 F) (Oral) | Resp 20 | Ht 1.803 m (5' 11") | Wt 93.2 kg (205 lb 6.4 oz) | SpO2 96% | BMI 28.65 kg/m Physical Exam GENERAL: Pleasant, talkative in no apparent distress CHEST: Good inspiratory effort with no crackles, ronchi, or wheezes. CARDIAC: No lifts/heaves. PMI is discrete and non-displaced. Normal S1 and S2. No murmur s, rubs or gallops. ABDOMEN: Soft, non-tender, nondistended with normal, active bowel sounds. Normal abdominal pulsation without bruit. EXTREMITIES: No clubbing, cyanosis, or edema. PULSES: Right: radial 2+, femoral 2+ DP 2+, PT 2+ Left: radial 2+, femoral 2+ DP 2+, PT 2+ DATA 1. Recent Labs Lab 02/12/19 0512 02/11/19 0743 HGB 11.3* 11.9* WBC 9.26 9.78 ASSESSMENT & PLAN Feels well, no CP. Creat up slightly. CABG soon. Juan Canales MD 02/12/2019 nnie Nair MD - 02/12/2019 6:51 AM PDTFull consult to follow after review of angiogram Renal Consultation enAle wagner RN - 02/12/2019 5:45 AM PDTVSS. Denied CP throughout shift. [facility] Hourly rounding uneventful otherwise. Chart check complete. Ale Bernard, RN Kerline Rojas RN - 02/11/2019 7:00 PM PDTPt transferred from cleaning laborer to the floor at 1344 and remained flat for the rest of shift. VSS upon arrival, no complaints of CP. Site is C/D/I. 1800-pt developed chest pain that he states "is similar to the pain I was having before." M D notified, nitroglycerin x1 given per order with improvement, STAT ECG done-no noticeable c hanges from prior ECG. Per MD also given IV morphine 2mg. VS remained stable throughout this time. Pt states interventions "have dulled the pain." KERLINE THRASHER RN Sue Calderon MD - 02/11/2019 12:00 PM PDT [facility] Service: Hospitalist Progress Note Hospital Day: LOS: 0 days Post-Op Day: Day of Surgery SUBJECTIVE Events Overnight: Patient's chest pain has improved with nitroglycerin, has neck pain 2/10 in severity. Scheduled Medications amLODIPine 5 mg Oral Daily aspirin 81 mg Oral Daily fenofibrate 160 mg Oral Nightly folic acid 1 mg Oral Daily furosemide 40 mg Intravenous Once insulin lispro 0-6 Units Subcutaneous 4 times per day metoprolol succinate 100 mg Oral Daily rosuvastatin 20 mg Oral Nightly Continuous Infusions dextrose 10% heparin infusion 12 Units/kg/hr (02/11/19 190) PRN Medications acetaminophen, Hypoglycemia Management AND POCT Glucose AND dextrose AND dextro se 10%, heparin, lidocaine 1%-EPINEPHrine 1:100,000, morphine, nitroglycerin, ondansetron OBJECTIVE Vital Signs: BP 115/72 | Pulse 81 | Temp 37.1 C (98.8 F) (Oral) | Resp 18 | Ht 1.803 m (5' 11") | Wt 94.4 kg (208 lb 1.8 oz) | SpO2 95% | BMI 29.03 kg/m Gen: AOX3. NAD HEENT: NCAT CV: RRR. S1S2 normal. no murmer, rubs, or gallops. No JVD Chest: bibasilar crackles Abd: SNTND. BS+, no gaurding or ridigity Ext: 1+ R>L edema. 2+ DP Neuro: Motor/sensations intact. 2+ DTRs DATA Recent Results (from the past 24 hour(s)) ECG 12 lead Result Value Ref Range VENTRICULAR RATE EKG 82 BPM ATRIAL RATE 82 BPM P-R INTERVAL 132 ms QRS DURATION 122 ms Q-T INTERVAL 368 ms Q-T INTERVAL (CORRECTED) 429 ms P WAVE AXIS 28 degrees QRS AXIS 53 degrees T AXIS -59 degrees INTERPRETATION TEXT Normal sinus rhythm Non-specific intra-ventricular conduction delay ST & T wave abnormality, consider inferior ischemia Abnormal ECG When compared with ECG of 12-AUG-2016 11:17, Previous ECG has undetermined rhythm, needs review QRS duration has increased T wave inversion now evident in Inferior leads This ECG contains Unconfirmed Interpretation Statements. See ED Record for Physician Inter pretation. Confirmed by MUSE READ ONLY, -COMPUTER ([id number]), editorial writer Fajardo, Shea ([id number]) on 02/11/2019 12:59 :59 PM Troponin I Result Value Ref Range Troponin I 9.098 (HH) 0.00 - 0.04 ng/mL POC Glucose Result Value Ref Range Glucose, POC 126 (H) 65 - 99 mg/dL Troponin I Result Value Ref Range Troponin I 11.863 (HH) 0.00 - 0.04 ng/mL CBC no Differential Result Value Ref Range WBC 9.78 3.80 - 11.00 K/uL RBC 3.63 (L) 4.20 - 5.70 M/uL Hemoglobin 11.9 (L) 13.2 - 17.0 g/dL Hematocrit 33.6 (L) 39.0 - 50.0 % MCV 92.7 80.0 - 100.0 fl MCH 32.7 27.0 - 34.0 pg MCHC 35.3 32.0 - 35.5 g/dL RDW-SD 43.3 37 - 53 fl Platelet Count 198 150 - 400 K/uL MPV 8.3 fl Comprehensive Metabolic Panel Result Value Ref Range Na 142 135 - 145 mmol/L K 4.8 3.5 - 4.9 mmol/L Cl 117 (H) 99 - 109 mmol/L CO2 19 (L) 23 - 32 mmol/L Anion Gap 11 5 - 20 mmol/L Glucose 139 (H) 65 - 99 mg/dL BUN 44 (H) 8 - 25 mg/dL Creatinine 1.8 (H) 0.70 - 1.30 mg/dL BUN/Creatinine Ratio 24 Calcium 8.7 8.5 - 10.5 mg/dL Protein, Total 6.7 6.3 - 8.2 g/dL Albumin 2.6 (L) 3.6 - 5.0 g/dL Globulin 4.1 1.3 - 4.9 g/dL A/G Ratio 0.6 (L) 1.0 - 2.4 BILIRUBIN, TOTAL 0.5 0.1 - 1.5 mg/dL ALK PHOS 79 35 - 115 U/L AST 59 (H) 10 - 45 U/L ALT 41 10 - 65 U/L Estimated GFR 40 (L) >60 mL/min/1.73m2 Lipid Panel Result Value Ref Range Cholesterol 159 <200 mg/dL Triglycerides 100 <150 mg/dL HDL 44 >40 mg/dL LDL, Calculated 95 <100 mg/dL B Type Natriuretic Peptide Result Value Ref Range BNP 406.69 (H) 0 - 100 pg/mL TSH Result Value Ref Range TSH 0.779 0.450 - 5.100 uIU/mL CK Total Result Value Ref Range CK TOTAL 336 55 - 400 U/L ECG 12 lead Result Value Ref Range VENTRICULAR RATE EKG 84 BPM ATRIAL RATE 84 BPM P-R INTERVAL 140 ms QRS DURATION 122 ms Q-T INTERVAL 372 ms Q-T INTERVAL (CORRECTED) 439 ms P WAVE AXIS 25 degrees QRS AXIS 50 degrees T AXIS -62 degrees INTERPRETATION TEXT Normal sinus rhythm Non-specific intra-ventricular conduction delay Abnormal ECG When compared with ECG of 11-FEB-2019 03:13, No significant change was found Confirmed by JULIAN CANALES MD ([id number]) on 02/11/2019 2:45:10 PM Troponin I Result Value Ref Range Troponin I 14.741 (HH) 0.00 - 0.04 ng/mL PTT Result Value Ref Range PTT 48 (H) 23 - 32 seconds POC Glucose Result Value Ref Range Glucose, POC 124 (H) 65 - 99 mg/dL Activated clotting time Result Value Ref Range Activated Clotting Time, POC 175 (H) 74 - 137 seconds ECG 12 lead Result Value Ref Range INTERPRETATION TEXT Not Confirmed POC Glucose Result Value Ref Range Glucose, POC 127 (H) 65 - 99 mg/dL PTT Result Value Ref Range PTT 46 (H) 23 - 32 seconds Imaging No results found. PROBLEM LIST Principal Problem: NSTEMI (non-ST elevated myocardial infarction) Active Problems: A-fib Coronary atherosclerosis DM (diabetes mellitus) CKD (chronic kidney disease) stage 3, GFR 30-59 ml/min Acute coronary syndrome Chest pain Acute on chronic renal failure ASSESSMENT & PLAN NSTEMI: with t wave inversions in inferior leads and elevated troponin. Plan for angiogram today. Dr. Canales consulted. Continue heparin gtt, ordered nitro prn pain and morphine prn. Continue aspirin, BB, statin. Holding xerelto.ordered limited echo for wall motion abnormali ties. Acute on chronic systolic congestive heart failure: last echo done 11/01/18 from [facility] here shows EF of 45-50%. As evident by bibasilar crackles, lower extremity edema, and elevat ed BNP. Ordered IV lasix x1, monitor I/Os and daily weights. Continue BB Acute on chronic kidney disease stage III: baseline 1.3-1.6. Appears to be cardiorenal, susie l give lasix 40mg IV x 1, monitor creatinine avoid nephrotoxins. Hold lisinopril. History of paroxysmal afib: currently in NSR. Holding xarelto due to cardiac cath. Continue metoprolol, monitor no telemetry. DM type II: Holding januvia and novolog, start SSI, monitor BS, check a1c. Hypertension: BP controlled, continue norvasc, metoprolol, holding lisinopril. HLD: continue fenofibrate and crestor. Disposition: inpatient Code Status: Full Code Sue Avitia MD 02/11/2019 documented in this enc ounter Plan of Treatment +--------+---------+ + + + | Date | Type | Specialty | Care Team | Description | +--------+---------+ + + + | 06/19/ | Office | Nephrology | PedrazaShea patel, | | | 2019 | Visit | | MD [address] | | | | | | [address] [place] | | | | | | [place] [address] | | | | | | [phone] | | | | | | | | +--------+---------+ + + + + +------+--------+ + + | Name | Type | Priori | Associated Diagnoses | Date/Time | | | | ty | | | + +------+--------+ + + | ED INFORMATION | YULI | Routin | | 02/11/2019 3:11 AM | | EXCHANGE | | e | | PDT | + +------+--------+ + + documented as of this encounter Procedures + +--------+ + + + | Procedure Name | Priori | Date/Time | Associated Diagnosis | Comments | | | ty | | | | + +--------+ + + + | POC GLUCOSE (NON | Routin | 02/28/2019 | | Results for this | | ORD) | e | 7:36 AM | | procedure are in the | | | | PST | | results section. | + +--------+ + + + | PROTIME INR | Routin | 02/28/2019 | | Results for this | | | e | 4:39 AM | | procedure are in the | | | | PST | | results section. | + +--------+ + + + | CBC WITH | Routin | 02/28/2019 | | Results for this | | DIFFERENTIAL | e | 4:39 AM | | procedure are in the | | | | PST | | results section. | + +--------+ + + + | MAGNESIUM | Routin | 02/28/2019 | | Results for this | | | e | 4:39 AM | | procedure are in the | | | | PST | | results section. | + +--------+ + + + | BASIC METABOLIC | Routin | 02/28/2019 | | Results for this | | PANEL | e | 4:39 AM | | procedure are in the | | | | PST | | results section. | + +--------+ + + + | POC GLUCOSE (NON | Routin | 02/27/2019 | | Results for this | | ORD) | e | 9:10 PM | | procedure are in the | | | | PST | | results section. | + +--------+ + + + | POC GLUCOSE (NON | Routin | 02/27/2019 | | Results for this | | ORD) | e | 5:25 PM | | procedure are in the | | | | PST | | results section. | + +--------+ + + + | POC GLUCOSE (NON | Routin | 02/27/2019 | | Results for this | | ORD) | e | 4:48 PM | | procedure are in the | | | | PST | | results section. | + +--------+ + + + | POC GLUCOSE (NON | Routin | 02/27/2019 | | Results for this | | ORD) | e | 12:05 PM | | procedure are in the | | | | PST | | results section. | + +--------+ + + + | POC GLUCOSE (NON | Routin | 02/27/2019 | | Results for this | | ORD) | e | 7:54 AM | | procedure are in the | | | | PST | | results section. | + +--------+ + + + | PROTIME INR | Routin | 02/27/2019 | | Results for this | | | e | 3:49 AM | | procedure are in the | | | | PST | | results section. | + +--------+ + + + | CBC WITH | Routin | 02/27/2019 | | Results for this | | DIFFERENTIAL | e | 3:49 AM | | procedure are in the | | | | PST | | results section. | + +--------+ + + + | MAGNESIUM | Routin | 02/27/2019 | | Results for this | | | e | 3:49 AM | | procedure are in the | | | | PST | | results section. | + +--------+ + + + | BASIC METABOLIC | Routin | 02/27/2019 | | Results for this | | PANEL | e | 3:49 AM | | procedure are in the | | | | PST | | results section. | + +--------+ + + + | POC GLUCOSE (NON | Routin | 02/26/2019 | | Results for this | | ORD) | e | 8:34 PM | | procedure are in the | | | | PST | | results section. | + +--------+ + + + | POC GLUCOSE (NON | Routin | 02/26/2019 | | Results for this | | ORD) | e | 4:51 PM | | procedure are in the | | | | PST | | results section. | + +--------+ + + + | POC GLUCOSE (NON | Routin | 02/26/2019 | | Results for this | | ORD) | e | 11:45 AM | | procedure are in the | | | | PST | | results section. | + +--------+ + + + | POC GLUCOSE (NON | Routin | 02/26/2019 | | Results for this | | ORD) | e | 7:41 AM | | procedure are in the | | | | PST | | results section. | + +--------+ + + + | PROTIME INR | Routin | 02/26/2019 | | Results for this | | | e | 4:04 AM | | procedure are in the | | | | PST | | results section. | + +--------+ + + + | CBC WITH | Routin | 02/26/2019 | | Results for this | | DIFFERENTIAL | e | 4:04 AM | | procedure are in the | | | | PST | | results section. | + +--------+ + + + | MAGNESIUM | Routin | 02/26/2019 | | Results for this | | | e | 4:04 AM | | procedure are in the | | | | PST | | results section. | + +--------+ + + + | BASIC METABOLIC | Routin | 02/26/2019 | | Results for this | | PANEL | e | 4:04 AM | | procedure are in the | | | | PST | | results section. | + +--------+ + + + | POC GLUCOSE (NON | Routin | 02/25/2019 | | Results for this | | ORD) | e | 9:05 PM | | procedure are in the | | | | PST | | results section. | + +--------+ + + + | C. DIFFICILE DNA | Routin | 02/25/2019 | | Results for this | | AMPLIFIED | e | 5:42 PM | | procedure are in the | | | | PST | | results section. | + +--------+ + + + | POC GLUCOSE (NON | Routin | 02/25/2019 | | Results for this | | ORD) | e | 4:31 PM | | procedure are in the | | | | PST | | results section. | + +--------+ + + + | POC GLUCOSE (NON | Routin | 02/25/2019 | | Results for this | | ORD) | e | 12:05 PM | | procedure are in the | | | | PST | | results section. | + +--------+ + + + | CLOSTRIDIUM | Routin | 02/25/2019 | | Results for this | | DIFFICILE A AND B | e | 11:25 AM | | procedure are in the | | EIA | | PST | | results section. | + +--------+ + + + | POC GLUCOSE (NON | Routin | 02/25/2019 | | Results for this | | ORD) | e | 7:41 AM | | procedure are in the | | | | PST | | results section. | + +--------+ + + + | POC GLUCOSE (NON | Routin | 02/25/2019 | | Results for this | | ORD) | e | 6:42 AM | | procedure are in the | | | | PST | | results section. | + +--------+ + + + | PROTIME INR | Routin | 02/25/2019 | | Results for this | | | e | 4:07 AM | | procedure are in the | | | | PST | | results section. | + +--------+ + + + | CBC WITH | Routin | 02/25/2019 | | Results for this | | DIFFERENTIAL | e | 4:07 AM | | procedure are in the | | | | PST | | results section. | + +--------+ + + + | MAGNESIUM | Routin | 02/25/2019 | | Results for this | | | e | 4:07 AM | | procedure are in the | | | | PST | | results section. | + +--------+ + + + | HEPATIC FUNCTION | Add-On | 02/25/2019 | | Results for this | | PANEL | | 4:07 AM | | procedure are in the | | | | PST | | results section. | + +--------+ + + + | BASIC METABOLIC | Routin | 02/25/2019 | | Results for this | | PANEL | e | 4:07 AM | | procedure are in the | | | | PST | | results section. | + +--------+ + + + | POC GLUCOSE (NON | Routin | 02/25/2019 | | Results for this | | ORD) | e | 3:45 AM | | procedure are in the | | | | PST | | results section. | + +--------+ + + + | POC GLUCOSE (NON | Routin | 02/24/2019 | | Results for this | | ORD) | e | 4:29 PM | | procedure are in the | | | | PDT | | results section. | + +--------+ + + + | POC GLUCOSE (NON | Routin | 02/24/2019 | | Results for this | | ORD) | e | 1:07 PM | | procedure are in the | | | | PDT | | results section. | + +--------+ + + + | POC GLUCOSE (NON | Routin | 02/24/2019 | | Results for this | | ORD) | e | 6:28 AM | | procedure are in the | | | | PDT | | results section. | + +--------+ + + + | PTT | Timed | 02/24/2019 | | Results for this | | | | 4:22 AM | | procedure are in the | | | | PDT | | results section. | + +--------+ + + + | PROTIME INR | Routin | 02/24/2019 | | Results for this | | | e | 4:22 AM | | procedure are in the | | | | PDT | | results section. | + +--------+ + + + | CBC WITH | Routin | 02/24/2019 | | Results for this | | DIFFERENTIAL | e | 4:22 AM | | procedure are in the | | | | PDT | | results section. | + +--------+ + + + | MAGNESIUM | Routin | 02/24/2019 | | Results for this | | | e | 4:22 AM | | procedure are in the | | | | PDT | | results section. | + +--------+ + + + | BASIC METABOLIC | Routin | 02/24/2019 | | Results for this | | PANEL | e | 4:22 AM | | procedure are in the | | | | PDT | | results section. | + +--------+ + + + | POTASSIUM | Routin | 02/23/2019 | | Results for this | | | e | 9:19 PM | | procedure are in the | | | | PDT | | results section. | + +--------+ + + + | POC GLUCOSE (NON | Routin | 02/23/2019 | | Results for this | | ORD) | e | 9:12 PM | | procedure are in the | | | | PDT | | results section. | + +--------+ + + + | POC GLUCOSE (NON | Routin | 02/23/2019 | | Results for this | | ORD) | e | 5:32 PM | | procedure are in the | | | | PDT | | results section. | + +--------+ + + + | POC GLUCOSE (NON | Routin | 02/23/2019 | | Results for this | | ORD) | e | 11:56 AM | | procedure are in the | | | | PDT | | results section. | + +--------+ + + + | POC GLUCOSE (NON | Routin | 02/23/2019 | | Results for this | | ORD) | e | 9:29 AM | | procedure are in the | | | | PDT | | results section. | + +--------+ + + + | PTT | Routin | 02/23/2019 | | Results for this | | | e | 4:24 AM | | procedure are in the | | | | PDT | | results section. | + +--------+ + + + | PROTIME INR | Routin | 02/23/2019 | | Results for this | | | e | 4:24 AM | | procedure are in the | | | | PDT | | results section. | + +--------+ + + + | CBC WITH | Routin | 02/23/2019 | | Results for this | | DIFFERENTIAL | e | 4:24 AM | | procedure are in the | | | | PDT | | results section. | + +--------+ + + + | MAGNESIUM | Routin | 02/23/2019 | | Results for this | | | e | 4:24 AM | | procedure are in the | | | | PDT | | results section. | + +--------+ + + + | BASIC METABOLIC | Routin | 02/23/2019 | | Results for this | | PANEL | e | 4:24 AM | | procedure are in the | | | | PDT | | results section. | + +--------+ + + + | PTT | STAT | 02/22/2019 | | Results for this | | | | 10:58 PM | | procedure are in the | | | | PDT | | results section. | + +--------+ + + + | POC GLUCOSE (NON | Routin | 02/22/2019 | | Results for this | | ORD) | e | 9:13 PM | | procedure are in the | | | | PDT | | results section. | + +--------+ + + + | POC GLUCOSE (NON | Routin | 02/22/2019 | | Results for this | | ORD) | e | 5:37 PM | | procedure are in the | | | | PDT | | results section. | + +--------+ + + + | PTT | STAT | 02/22/2019 | | Results for this | | | | 4:55 PM | | procedure are in the | | | | PDT | | results section. | + +--------+ + + + | POTASSIUM | STAT | 02/22/2019 | | Results for this | | | | 12:15 PM | | procedure are in the | | | | PDT | | results section. | + +--------+ + + + | POC GLUCOSE (NON | Routin | 02/22/2019 | | Results for this | | ORD) | e | 11:34 AM | | procedure are in the | | | | PDT | | results section. | + +--------+ + + + | PTT | STAT | 02/22/2019 | | Results for this | | | | 10:19 AM | | procedure are in the | | | | PDT | | results section. | + +--------+ + + + | POC GLUCOSE (NON | Routin | 02/22/2019 | | Results for this | | ORD) | e | 7:49 AM | | procedure are in the | | | | PDT | | results section. | + +--------+ + + + | PROTIME INR | Routin | 02/22/2019 | | Results for this | | | e | 4:02 AM | | procedure are in the | | | | PDT | | results section. | + +--------+ + + + | CBC WITH | Routin | 02/22/2019 | | Results for this | | DIFFERENTIAL | e | 4:02 AM | | procedure are in the | | | | PDT | | results section. | + +--------+ + + + | MAGNESIUM | Routin | 02/22/2019 | | Results for this | | | e | 4:02 AM | | procedure are in the | | | | PDT | | results section. | + +--------+ + + + | BASIC METABOLIC | Routin | 02/22/2019 | | Results for this | | PANEL | e | 4:02 AM | | procedure are in the | | | | PDT | | results section. | + +--------+ + + + | POC GLUCOSE (NON | Routin | 02/21/2019 | | Results for this | | ORD) | e | 8:48 PM | | procedure are in the | | | | PDT | | results section. | + +--------+ + + + | POC GLUCOSE (NON | Routin | 02/21/2019 | | Results for this | | ORD) | e | 6:01 PM | | procedure are in the | | | | PDT | | results section. | + +--------+ + + + | PROTIME INR | STAT | 02/21/2019 | | Results for this | | | | 3:01 PM | | procedure are in the | | | | PDT | | results section. | + +--------+ + + + | POC GLUCOSE (NON | Routin | 02/21/2019 | | Results for this | | ORD) | e | 12:39 PM | | procedure are in the | | | | PDT | | results section. | + +--------+ + + + | ECHO COMPLETE W | RICKIE | 02/21/2019 | | Results for this | | CONTRAST | | 11:55 AM | | procedure are in the | | | | PDT | | results section. | + +--------+ + + + | POC GLUCOSE (NON | Routin | 02/21/2019 | | Results for this | | ORD) | e | 10:10 AM | | procedure are in the | | | | PDT | | results section. | + +--------+ + + + | POC GLUCOSE (NON | Routin | 02/21/2019 | | Results for this | | ORD) | e | 8:10 AM | | procedure are in the | | | | PDT | | results section. | + +--------+ + + + | MAGNESIUM | Routin | 02/21/2019 | | Results for this | | | e | 5:46 AM | | procedure are in the | | | | PDT | | results section. | + +--------+ + + + | BASIC METABOLIC | Routin | 02/21/2019 | | Results for this | | PANEL | e | 5:46 AM | | procedure are in the | | | | PDT | | results section. | + +--------+ + + + | CBC WITH | Routin | 02/21/2019 | | Results for this | | DIFFERENTIAL | e | 5:35 AM | | procedure are in the | | | | PDT | | results section. | + +--------+ + + + | POC GLUCOSE (NON | Routin | 02/20/2019 | | Results for this | | ORD) | e | 9:21 PM | | procedure are in the | | | | PDT | | results section. | + +--------+ + + + | POC GLUCOSE (NON | Routin | 02/20/2019 | | Results for this | | ORD) | e | 6:24 PM | | procedure are in the | | | | PDT | | results section. | + +--------+ + + + | POC GLUCOSE (NON | Routin | 02/20/2019 | | Results for this | | ORD) | e | 5:30 PM | | procedure are in the | | | | PDT | | results section. | + +--------+ + + + | POC GLUCOSE (NON | Routin | 02/20/2019 | | Results for this | | ORD) | e | 11:51 AM | | procedure are in the | | | | PDT | | results section. | + +--------+ + + + | POC GLUCOSE (NON | Routin | 02/20/2019 | | Results for this | | ORD) | e | 8:38 AM | | procedure are in the | | | | PDT | | results section. | + +--------+ + + + | XR CHEST 2 VIEWS | Routin | 02/20/2019 | | Results for this | | | e | 8:22 AM | | procedure are in the | | | | PDT | | results section. | + +--------+ + + + | CBC WITH | Routin | 02/20/2019 | | Results for this | | DIFFERENTIAL | e | 4:03 AM | | procedure are in the | | | | PDT | | results section. | + +--------+ + + + | MAGNESIUM | Routin | 02/20/2019 | | Results for this | | | e | 4:03 AM | | procedure are in the | | | | PDT | | results section. | + +--------+ + + + | BASIC METABOLIC | Routin | 02/20/2019 | | Results for this | | PANEL | e | 4:03 AM | | procedure are in the | | | | PDT | | results section. | + +--------+ + + + | POC GLUCOSE (NON | Routin | 02/19/2019 | | Results for this | | ORD) | e | 9:27 PM | | procedure are in the | | | | PDT | | results section. | + +--------+ + + + | POC GLUCOSE (NON | Routin | 02/19/2019 | | Results for this | | ORD) | e | 5:24 PM | | procedure are in the | | | | PDT | | results section. | + +--------+ + + + | POC GLUCOSE (NON | Routin | 02/19/2019 | | Results for this | | ORD) | e | 11:34 AM | | procedure are in the | | | | PDT | | results section. | + +--------+ + + + | POC GLUCOSE (NON | Routin | 02/19/2019 | | Results for this | | ORD) | e | 8:29 AM | | procedure are in the | | | | PDT | | results section. | + +--------+ + + + | XR CHEST AP PORTABLE | Routin | 02/19/2019 | | Results for this | | | e | 4:54 AM | | procedure are in the | | | | PDT | | results section. | + +--------+ + + + | CBC WITH | Routin | 02/19/2019 | | Results for this | | DIFFERENTIAL | e | 4:12 AM | | procedure are in the | | | | PDT | | results section. | + +--------+ + + + | MAGNESIUM | Routin | 02/19/2019 | | Results for this | | | e | 4:12 AM | | procedure are in the | | | | PDT | | results section. | + +--------+ + + + | BASIC METABOLIC | Routin | 02/19/2019 | | Results for this | | PANEL | e | 4:12 AM | | procedure are in the | | | | PDT | | results section. | + +--------+ + + + | POC GLUCOSE (NON | Routin | 02/18/2019 | | Results for this | | ORD) | e | 9:30 PM | | procedure are in the | | | | PDT | | results section. | + +--------+ + + + | POC GLUCOSE (NON | Routin | 02/18/2019 | | Results for this | | ORD) | e | 4:56 PM | | procedure are in the | | | | PDT | | results section. | + +--------+ + + + | POC GLUCOSE (NON | Routin | 02/18/2019 | | Results for this | | ORD) | e | 4:55 PM | | procedure are in the | | | | PDT | | results section. | + +--------+ + + + | POC GLUCOSE (NON | Routin | 02/18/2019 | | Results for this | | ORD) | e | 8:37 AM | | procedure are in the | | | | PDT | | results section. | + +--------+ + + + | XR CHEST AP PORTABLE | Routin | 02/18/2019 | | Results for this | | | e | 4:46 AM | | procedure are in the | | | | PDT | | results section. | + +--------+ + + + | CBC WITH | Routin | 02/18/2019 | | Results for this | | DIFFERENTIAL | e | 4:08 AM | | procedure are in the | | | | PDT | | results section. | + +--------+ + + + | MAGNESIUM | Routin | 02/18/2019 | | Results for this | | | e | 4:08 AM | | procedure are in the | | | | PDT | | results section. | + +--------+ + + + | BASIC METABOLIC | Routin | 02/18/2019 | | Results for this | | PANEL | e | 4:08 AM | | procedure are in the | | | | PDT | | results section. | + +--------+ + + + | POC GLUCOSE (NON | Routin | 02/17/2019 | | Results for this | | ORD) | e | 10:25 PM | | procedure are in the | | | | PDT | | results section. | + +--------+ + + + | POC GLUCOSE (NON | Routin | 02/17/2019 | | Results for this | | ORD) | e | 5:45 PM | | procedure are in the | | | | PDT | | results section. | + +--------+ + + + | POC GLUCOSE (NON | Routin | 02/17/2019 | | Results for this | | ORD) | e | 1:25 PM | | procedure are in the | | | | PDT | | results section. | + +--------+ + + + | POC GLUCOSE (NON | Routin | 02/17/2019 | | Results for this | | ORD) | e | 9:42 AM | | procedure are in the | | | | PDT | | results section. | + +--------+ + + + | CBC WITH | Routin | 02/17/2019 | | Results for this | | DIFFERENTIAL | e | 4:44 AM | | procedure are in the | | | | PDT | | results section. | + +--------+ + + + | MAGNESIUM | Routin | 02/17/2019 | | Results for this | | | e | 4:44 AM | | procedure are in the | | | | PDT | | results section. | + +--------+ + + + | BASIC METABOLIC | Routin | 02/17/2019 | | Results for this | | PANEL | e | 4:44 AM | | procedure are in the | | | | PDT | | results section. | + +--------+ + + + | XR CHEST AP PORTABLE | Routin | 02/17/2019 | | Results for this | | | e | 4:43 AM | | procedure are in the | | | | PDT | | results section. | + +--------+ + + + | POC GLUCOSE (NON | Routin | 02/16/2019 | | Results for this | | ORD) | e | 10:01 PM | | procedure are in the | | | | PDT | | results section. | + +--------+ + + + | POC GLUCOSE (NON | Routin | 02/16/2019 | | Results for this | | ORD) | e | 5:41 PM | | procedure are in the | | | | PDT | | results section. | + +--------+ + + + | POC GLUCOSE (NON | Routin | 02/16/2019 | | Results for this | | ORD) | e | 12:51 PM | | procedure are in the | | | | PDT | | results section. | + +--------+ + + + | POTASSIUM | STAT | 02/16/2019 | | Results for this | | | | 12:45 PM | | procedure are in the | | | | PDT | | results section. | + +--------+ + + + | POC GLUCOSE (NON | Routin | 02/16/2019 | | Results for this | | ORD) | e | 11:21 AM | | procedure are in the | | | | PDT | | results section. | + +--------+ + + + | POC GLUCOSE (NON | Routin | 02/16/2019 | | Results for this | | ORD) | e | 9:25 AM | | procedure are in the | | | | PDT | | results section. | + +--------+ + + + | POC GLUCOSE (NON | Routin | 02/16/2019 | | Results for this | | ORD) | e | 8:44 AM | | procedure are in the | | | | PDT | | results section. | + +--------+ + + + | POC GLUCOSE (NON | Routin | 02/16/2019 | | Results for this | | ORD) | e | 6:40 AM | | procedure are in the | | | | PDT | | results section. | + +--------+ + + + | POC GLUCOSE (NON | Routin | 02/16/2019 | | Results for this | | ORD) | e | 6:36 AM | | procedure are in the | | | | PDT | | results section. | + +--------+ + + + | XR CHEST AP PORTABLE | Routin | 02/16/2019 | | Results for this | | | e | 4:52 AM | | procedure are in the | | | | PDT | | results section. | + +--------+ + + + | CBC WITH | Routin | 02/16/2019 | | Results for this | | DIFFERENTIAL | e | 4:34 AM | | procedure are in the | | | | PDT | | results section. | + +--------+ + + + | MAGNESIUM | Routin | 02/16/2019 | | Results for this | | | e | 4:34 AM | | procedure are in the | | | | PDT | | results section. | + +--------+ + + + | BASIC METABOLIC | Routin | 02/16/2019 | | Results for this | | PANEL | e | 4:34 AM | | procedure are in the | | | | PDT | | results section. | + +--------+ + + + | POC GLUCOSE (NON | Routin | 02/16/2019 | | Results for this | | ORD) | e | 4:30 AM | | procedure are in the | | | | PDT | | results section. | + +--------+ + + + | POC GLUCOSE (NON | Routin | 02/16/2019 | | Results for this | | ORD) | e | 2:51 AM | | procedure are in the | | | | PDT | | results section. | + +--------+ + + + | POC GLUCOSE (NON | Routin | 02/16/2019 | | Results for this | | ORD) | e | 12:43 AM | | procedure are in the | | | | PDT | | results section. | + +--------+ + + + | POTASSIUM | STAT | 02/15/2019 | | Results for this | | | | 11:39 PM | | procedure are in the | | | | PDT | | results section. | + +--------+ + + + | POC BLOOD GAS | Routin | 02/15/2019 | | Results for this | | ARTERIAL | e | 11:29 PM | | procedure are in the | | | | PDT | | results section. | + +--------+ + + + | POC GLUCOSE (NON | Routin | 02/15/2019 | | Results for this | | ORD) | e | 11:28 PM | | procedure are in the | | | | PDT | | results section. | + +--------+ + + + | POC GLUCOSE (NON | Routin | 02/15/2019 | | Results for this | | ORD) | e | 10:22 PM | | procedure are in the | | | | PDT | | results section. | + +--------+ + + + | POC GLUCOSE (NON | Routin | 02/15/2019 | | Results for this | | ORD) | e | 9:17 PM | | procedure are in the | | | | PDT | | results section. | + +--------+ + + + | POC ISTAT, CG8, | Routin | 02/15/2019 | | Results for this | | VENOUS | e | 8:50 PM | | procedure are in the | | | | PDT | | results section. | + +--------+ + + + | POC BLOOD GAS | Routin | 02/15/2019 | | Results for this | | ARTERIAL | e | 8:03 PM | | procedure are in the | | | | PDT | | results section. | + +--------+ + + + | POTASSIUM | STAT | 02/15/2019 | | Results for this | | | | 8:02 PM | | procedure are in the | | | | PDT | | results section. | + +--------+ + + + | POC GLUCOSE (NON | Routin | 02/15/2019 | | Results for this | | ORD) | e | 6:47 PM | | procedure are in the | | | | PDT | | results section. | + +--------+ + + + | POC BLOOD GAS | Routin | 02/15/2019 | | Results for this | | ARTERIAL | e | 6:19 PM | | procedure are in the | | | | PDT | | results section. | + +--------+ + + + | POC BLOOD GAS | Routin | 02/15/2019 | | Results for this | | ARTERIAL | e | 5:33 PM | | procedure are in the | | | | PDT | | results section. | + +--------+ + + + | POC GLUCOSE (NON | Routin | 02/15/2019 | | Results for this | | ORD) | e | 4:43 PM | | procedure are in the | | | | PDT | | results section. | + +--------+ + + + | POC BLOOD GAS | Routin | 02/15/2019 | | Results for this | | ARTERIAL | e | 4:32 PM | | procedure are in the | | | | PDT | | results section. | + +--------+ + + + | POTASSIUM | STAT | 02/15/2019 | | Results for this | | | | 4:03 PM | | procedure are in the | | | | PDT | | results section. | + +--------+ + + + | POC GLUCOSE (NON | Routin | 02/15/2019 | | Results for this | | ORD) | e | 3:39 PM | | procedure are in the | | | | PDT | | results section. | + +--------+ + + + | POC BLOOD GAS | Routin | 02/15/2019 | | Results for this | | ARTERIAL | e | 3:26 PM | | procedure are in the | | | | PDT | | results section. | + +--------+ + + + | POC GLUCOSE (NON | Routin | 02/15/2019 | | Results for this | | ORD) | e | 2:43 PM | | procedure are in the | | | | PDT | | results section. | + +--------+ + + + | CALCIUM, IONIZED, | STAT | 02/15/2019 | | Results for this | | VENOUS | | 1:48 PM | | procedure are in the | | | | PDT | | results section. | + +--------+ + + + | PTT | STAT | 02/15/2019 | | Results for this | | | | 1:45 PM | | procedure are in the | | | | PDT | | results section. | + +--------+ + + + | PROTIME INR | STAT | 02/15/2019 | | Results for this | | | | 1:45 PM | | procedure are in the | | | | PDT | | results section. | + +--------+ + + + | FIBRINOGEN | STAT | 02/15/2019 | | Results for this | | | | 1:45 PM | | procedure are in the | | | | PDT | | results section. | + +--------+ + + + | CBC WITH | STAT | 02/15/2019 | | Results for this | | DIFFERENTIAL | | 1:45 PM | | procedure are in the | | | | PDT | | results section. | + +--------+ + + + | MAGNESIUM | STAT | 02/15/2019 | | Results for this | | | | 1:45 PM | | procedure are in the | | | | PDT | | results section. | + +--------+ + + + | HEMOGLOBIN A1C | Routin | 02/15/2019 | | Results for this | | | e | 1:45 PM | | procedure are in the | | | | PDT | | results section. | + +--------+ + + + | BASIC METABOLIC | STAT | 02/15/2019 | | Results for this | | PANEL | | 1:45 PM | | procedure are in the | | | | PDT | | results section. | + +--------+ + + + | POC ISTAT, CG8, | Routin | 02/15/2019 | | Results for this | | ARTERIAL | e | 1:39 PM | | procedure are in the | | | | PDT | | results section. | + +--------+ + + + | XR CHEST AP PORTABLE | STAT | 02/15/2019 | | Results for this | | | | 1:27 PM | | procedure are in the | | | | PDT | | results section. | + +--------+ + + + | POC BLOOD GAS | Routin | 02/15/2019 | | Results for this | | ARTERIAL | e | 1:27 PM | | procedure are in the | | | | PDT | | results section. | + +--------+ + + + | POC GLUCOSE (NON | Routin | 02/15/2019 | | Results for this | | ORD) | e | 1:24 PM | | procedure are in the | | | | PDT | | results section. | + +--------+ + + + | ECG 12 LEAD | STAT | 02/15/2019 | | Results for this | | | | 1:22 PM | | procedure are in the | | | | PDT | | results section. | + +--------+ + + + | POC CG 4, ISTAT | Routin | 02/15/2019 | | Results for this | | ARTERIAL | e | 12:14 PM | | procedure are in the | | | | PDT | | results section. | + +--------+ + + + | POC ISTAT, CG8, | Routin | 02/15/2019 | | Results for this | | ARTERIAL | e | 12:09 PM | | procedure are in the | | | | PDT | | results section. | + +--------+ + + + | POC DENIS 4CHARLIE | Routin | 02/15/2019 | | Results for this | | ARTERIAL | e | 11:35 AM | | procedure are in the | | | | PDT | | results section. | + +--------+ + + + | FAM MCKEON, | Routin | 02/15/2019 | | Results for this | | ARTERIAL | e | 11:31 AM | | procedure are in the | | | | PDT | | results section. | + +--------+ + + + | FAM MCKEON, | Routin | 02/15/2019 | | Results for this | | ARTERIAL | e | 11:10 AM | | procedure are in the | | | | PDT | | results section. | + +--------+ + + + | POC DENIS Duggan, ISKATELYNNT | Routin | 02/15/2019 | | Results for this | | ARTERIAL | e | 10:59 AM | | procedure are in the | | | | PDT | | results section. | + +--------+ + + + | FAM MCKEON, | Routin | 02/15/2019 | | Results for this | | ARTERIAL | e | 10:52 AM | | procedure are in the | | | | PDT | | results section. | + +--------+ + + + | FAM MCKEON, | Routin | 02/15/2019 | | Results for this | | VENOUS | e | 10:21 AM | | procedure are in the | | | | PDT | | results section. | + +--------+ + + + | POC FAM GUERRA, | Routin | 02/15/2019 | | Results for this | | ARTERIAL | e | 10:07 AM | | procedure are in the | | | | PDT | | results section. | + +--------+ + + + | FAM MCKEON, | Routin | 02/15/2019 | | Results for this | | ARTERIAL | e | 9:43 AM | | procedure are in the | | | | PDT | | results section. | + +--------+ + + + | FAM MCKEON, | Routin | 02/15/2019 | | Results for this | | ARTERIAL | e | 9:04 AM | | procedure are in the | | | | PDT | | results section. | + +--------+ + + + | POC DENIS Duggan, ISKATELYNNT | Routin | 02/15/2019 | | Results for this | | ARTERIAL | e | 7:53 AM | | procedure are in the | | | | PDT | | results section. | + +--------+ + + + | POC ISTAT, CG8, | Routin | 02/15/2019 | | Results for this | | ARTERIAL | e | 7:50 AM | | procedure are in the | | | | PDT | | results section. | + +--------+ + + + | ECHO | Routin | 02/15/2019 | | Results for this | | TRANSESOPHAGEAL(SHALA) | e | 7:41 AM | | procedure are in the | | - PERIOPERATIVE | | PDT | | results section. | + +--------+ + + + | CORONARY ARTERY | | 02/15/2019 | NSTEMI (non-ST | | | BYPASS GRAFT | | 6:30 AM | elevated myocardial | | | | | PDT | infarction) (HCC) | | + +--------+ + + + | POC GLUCOSE (NON | Routin | 02/15/2019 | | Results for this | | ORD) | e | 6:30 AM | | procedure are in the | | | | PDT | | results section. | + +--------+ + + + | PTT | Routin | 02/15/2019 | | Results for this | | | e | 5:49 AM | | procedure are in the | | | | PDT | | results section. | + +--------+ + + + | PROTIME INR | Routin | 02/15/2019 | | Results for this | | | e | 5:49 AM | | procedure are in the | | | | PDT | | results section. | + +--------+ + + + | CBC NO DIFFERENTIAL | Routin | 02/15/2019 | | Results for this | | | e | 5:49 AM | | procedure are in the | | | | PDT | | results section. | + +--------+ + + + | RENAL FUNCTION PANEL | Routin | 02/15/2019 | | Results for this | | | e | 5:49 AM | | procedure are in the | | | | PDT | | results section. | + +--------+ + + + | PRODUCT: RBC | STAT | 02/15/2019 | | Results for this | | | | 12:20 AM | | procedure are in the | | | | PDT | | results section. | + +--------+ + + + | TYPE AND SCREEN | STAT | 02/15/2019 | | Results for this | | | | 12:20 AM | | procedure are in the | | | | PDT | | results section. | + +--------+ + + + | TROPONIN I | Routin | 02/14/2019 | | Results for this | | | e | 11:09 PM | | procedure are in the | | | | PDT | | results section. | + +--------+ + + + | PTT | STAT | 02/14/2019 | | Results for this | | | | 11:09 PM | | procedure are in the | | | | PDT | | results section. | + +--------+ + + + | XR CHEST PA AND | Routin | 02/14/2019 | | Results for this | | LATERAL | e | 10:55 PM | | procedure are in the | | | | PDT | | results section. | + +--------+ + + + | MRSA NAAT | Routin | 02/14/2019 | | Results for this | | | e | 10:24 PM | | procedure are in the | | | | PDT | | results section. | + +--------+ + + + | POC GLUCOSE (NON | Routin | 02/14/2019 | | Results for this | | ORD) | e | 9:11 PM | | procedure are in the | | | | PDT | | results section. | + +--------+ + + + | POC GLUCOSE (NON | Routin | 02/14/2019 | | Results for this | | ORD) | e | 4:44 PM | | procedure are in the | | | | PDT | | results section. | + +--------+ + + + | ECG 12 LEAD | STAT | 02/14/2019 | | Results for this | | | | 1:00 PM | | procedure are in the | | | | PDT | | results section. | + +--------+ + + + | TROPONIN I | Routin | 02/14/2019 | | Results for this | | | e | 12:47 PM | | procedure are in the | | | | PDT | | results section. | + +--------+ + + + | PTT | STAT | 02/14/2019 | | Results for this | | | | 12:47 PM | | procedure are in the | | | | PDT | | results section. | + +--------+ + + + | POC GLUCOSE (NON | Routin | 02/14/2019 | | Results for this | | ORD) | e | 12:02 PM | | procedure are in the | | | | PDT | | results section. | + +--------+ + + + | POC GLUCOSE (NON | Routin | 02/14/2019 | | Results for this | | ORD) | e | 8:52 AM | | procedure are in the | | | | PDT | | results section. | + +--------+ + + + | TROPONIN I | Routin | 02/14/2019 | | Results for this | | | e | 7:14 AM | | procedure are in the | | | | PDT | | results section. | + +--------+ + + + | PTT | Routin | 02/14/2019 | | Results for this | | | e | 6:11 AM | | procedure are in the | | | | PDT | | results section. | + +--------+ + + + | HEMOGLOBIN A1C | Add-On | 02/14/2019 | | Results for this | | | | 6:11 AM | | procedure are in the | | | | PDT | | results section. | + +--------+ + + + | RENAL FUNCTION PANEL | Routin | 02/14/2019 | | Results for this | | | e | 5:59 AM | | procedure are in the | | | | PDT | | results section. | + +--------+ + + + | TROPONIN I | Routin | 02/13/2019 | | Results for this | | | e | 11:43 PM | | procedure are in the | | | | PDT | | results section. | + +--------+ + + + | POC GLUCOSE (NON | Routin | 02/13/2019 | | Results for this | | ORD) | e | 9:18 PM | | procedure are in the | | | | PDT | | results section. | + +--------+ + + + | POC GLUCOSE (NON | Routin | 02/13/2019 | | Results for this | | ORD) | e | 6:25 PM | | procedure are in the | | | | PDT | | results section. | + +--------+ + + + | TROPONIN I | Routin | 02/13/2019 | | Results for this | | | e | 3:08 PM | | procedure are in the | | | | PDT | | results section. | + +--------+ + + + | POC GLUCOSE (NON | Routin | 02/13/2019 | | Results for this | | ORD) | e | 11:46 AM | | procedure are in the | | | | PDT | | results section. | + +--------+ + + + | POC GLUCOSE (NON | Routin | 02/13/2019 | | Results for this | | ORD) | e | 8:49 AM | | procedure are in the | | | | PDT | | results section. | + +--------+ + + + | TROPONIN I | Routin | 02/13/2019 | | Results for this | | | e | 7:42 AM | | procedure are in the | | | | PDT | | results section. | + +--------+ + + + | PHOSPHORUS | Add-On | 02/13/2019 | | Results for this | | | | 7:42 AM | | procedure are in the | | | | PDT | | results section. | + +--------+ + + + | CBC WITH | RICKIE | 02/13/2019 | | Results for this | | DIFFERENTIAL | | 6:52 AM | | procedure are in the | | | | PDT | | results section. | + +--------+ + + + | BASIC METABOLIC | RICKIE | 02/13/2019 | | Results for this | | PANEL | | 6:52 AM | | procedure are in the | | | | PDT | | results section. | + +--------+ + + + | PTT | STAT | 02/13/2019 | | Results for this | | | | 5:09 AM | | procedure are in the | | | | PDT | | results section. | + +--------+ + + + | TROPONIN I | Routin | 02/12/2019 | | Results for this | | | e | 11:04 PM | | procedure are in the | | | | PDT | | results section. | + +--------+ + + + | POC GLUCOSE (NON | Routin | 02/12/2019 | | Results for this | | ORD) | e | 9:16 PM | | procedure are in the | | | | PDT | | results section. | + +--------+ + + + | POC GLUCOSE (NON | Routin | 02/12/2019 | | Results for this | | ORD) | e | 4:30 PM | | procedure are in the | | | | PDT | | results section. | + +--------+ + + + | TROPONIN I | Routin | 02/12/2019 | | Results for this | | | e | 3:51 PM | | procedure are in the | | | | PDT | | results section. | + +--------+ + + + | URINALYSIS WITH | RICKIE | 02/12/2019 | | Results for this | | MICROSCOPIC WITH | | 3:05 PM | | procedure are in the | | CULTURE IF INDICATED | | PDT | | results section. | + +--------+ + + + | UREA NITROGEN, | Routin | 02/12/2019 | | Results for this | | URINE, RANDOM | e | 3:05 PM | | procedure are in the | | | | PDT | | results section. | + +--------+ + + + | EOSINOPHIL SMEAR, | Routin | 02/12/2019 | | Results for this | | URINE | e | 3:05 PM | | procedure are in the | | | | PDT | | results section. | + +--------+ + + + | PROTEIN/CREATININE | Routin | 02/12/2019 | | Results for this | | RATIO, URINE | e | 3:05 PM | | procedure are in the | | | | PDT | | results section. | + +--------+ + + + | SODIUM, URINE, | Routin | 02/12/2019 | | Results for this | | RANDOM | e | 3:05 PM | | procedure are in the | | | | PDT | | results section. | + +--------+ + + + | PROTEIN, URINE, | Routin | 02/12/2019 | | Results for this | | RANDOM | e | 3:05 PM | | procedure are in the | | | | PDT | | results section. | + +--------+ + + + | CREATININE, URINE, | Routin | 02/12/2019 | | Results for this | | RANDOM | e | 3:05 PM | | procedure are in the | | | | PDT | | results section. | + +--------+ + + + | CHLORIDE, URINE, | Routin | 02/12/2019 | | Results for this | | RANDOM | e | 3:05 PM | | procedure are in the | | | | PDT | | results section. | + +--------+ + + + | POC GLUCOSE (NON | Routin | 02/12/2019 | | Results for this | | ORD) | e | 11:15 AM | | procedure are in the | | | | PDT | | results section. | + +--------+ + + + | ECHO COMPLETE | Routin | 02/12/2019 | | Results for this | | | e | 10:40 AM | | procedure are in the | | | | PDT | | results section. | + +--------+ + + + | US RENAL LIMITED | Routin | 02/12/2019 | | Results for this | | | e | 9:45 AM | | procedure are in the | | | | PDT | | results section. | + +--------+ + + + | XR CHEST 2 VIEWS | Routin | 02/12/2019 | | Results for this | | | e | 8:52 AM | | procedure are in the | | | | PDT | | results section. | + +--------+ + + + | TROPONIN I | Routin | 02/12/2019 | | Results for this | | | e | 7:29 AM | | procedure are in the | | | | PDT | | results section. | + +--------+ + + + | POC GLUCOSE (NON | Routin | 02/12/2019 | | Results for this | | ORD) | e | 5:56 AM | | procedure are in the | | | | PDT | | results section. | + +--------+ + + + | PTT | STAT | 02/12/2019 | | Results for this | | | | 5:12 AM | | procedure are in the | | | | PDT | | results section. | + +--------+ + + + | CBC NO DIFFERENTIAL | Routin | 02/12/2019 | | Results for this | | | e | 5:12 AM | | procedure are in the | | | | PDT | | results section. | + +--------+ + + + | CK TOTAL | Routin | 02/12/2019 | | Results for this | | | e | 5:12 AM | | procedure are in the | | | | PDT | | results section. | + +--------+ + + + | BASIC METABOLIC | Routin | 02/12/2019 | | Results for this | | PANEL | e | 5:12 AM | | procedure are in the | | | | PDT | | results section. | + +--------+ + + + | ECG 12 LEAD | Routin | 02/12/2019 | | Results for this | | | e | 3:57 AM | | procedure are in the | | | | PDT | | results section. | + +--------+ + + + | POC GLUCOSE (NON | Routin | 02/11/2019 | | Results for this | | ORD) | e | 11:32 PM | | procedure are in the | | | | PDT | | results section. | + +--------+ + + + | POC GLUCOSE (NON | Routin | 02/11/2019 | | Results for this | | ORD) | e | 8:56 PM | | procedure are in the | | | | PDT | | results section. | + +--------+ + + + | PTT | Routin | 02/11/2019 | | Results for this | | | e | 7:45 PM | | procedure are in the | | | | PDT | | results section. | + +--------+ + + + | POC GLUCOSE (NON | Routin | 02/11/2019 | | Results for this | | ORD) | e | 6:29 PM | | procedure are in the | | | | PDT | | results section. | + +--------+ + + + | ECG 12 LEAD | STAT | 02/11/2019 | | Results for this | | | | 6:25 PM | | procedure are in the | | | | PDT | | results section. | + +--------+ + + + | CV COR ANGIO | Routin | 02/11/2019 | | Results for this | | | e | 1:36 PM | | procedure are in the | | | | PDT | | results section. | + +--------+ + + + | ACTIVATED CLOTTING | Routin | 02/11/2019 | | Results for this | | TIME | e | 1:13 PM | | procedure are in the | | | | PDT | | results section. | + +--------+ + + + | POC GLUCOSE (NON | Routin | 02/11/2019 | | Results for this | | ORD) | e | 12:33 PM | | procedure are in the | | | | PDT | | results section. | + +--------+ + + + | TROPONIN I | Timed | 02/11/2019 | | Results for this | | | | 11:47 AM | | procedure are in the | | | | PDT | | results section. | + +--------+ + + + | PTT | STAT | 02/11/2019 | | Results for this | | | | 11:47 AM | | procedure are in the | | | | PDT | | results section. | + +--------+ + + + | ECG 12 LEAD | STAT | 02/11/2019 | | Results for this | | | | 8:53 AM | | procedure are in the | | | | PDT | | results section. | + +--------+ + + + | LIPID PANEL | Routin | 02/11/2019 | | Results for this | | | e | 7:43 AM | | procedure are in the | | | | PDT | | results section. | + +--------+ + + + | TROPONIN I | Timed | 02/11/2019 | | Results for this | | | | 7:43 AM | | procedure are in the | | | | PDT | | results section. | + +--------+ + + + | CBC NO DIFFERENTIAL | Timed | 02/11/2019 | | Results for this | | | | 7:43 AM | | procedure are in the | | | | PDT | | results section. | + +--------+ + + + | TSH | Add-On | 02/11/2019 | | Results for this | | | | 7:43 AM | | procedure are in the | | | | PDT | | results section. | + +--------+ + + + | B TYPE NATRIURETIC | STAT | 02/11/2019 | | Results for this | | PEPTIDE | | 7:43 AM | | procedure are in the | | | | PDT | | results section. | + +--------+ + + + | CK TOTAL | Add-On | 02/11/2019 | | Results for this | | | | 7:43 AM | | procedure are in the | | | | PDT | | results section. | + +--------+ + + + | COMPREHENSIVE | Timed | 02/11/2019 | | Results for this | | METABOLIC PANEL | | 7:43 AM | | procedure are in the | | | | PDT | | results section. | + +--------+ + + + | POC GLUCOSE (NON | Routin | 02/11/2019 | | Results for this | | ORD) | e | 6:10 AM | | procedure are in the | | | | PDT | | results section. | + +--------+ + + + | TROPONIN I | STAT | 02/11/2019 | | Results for this | | | | 3:56 AM | | procedure are in the | | | | PDT | | results section. | + +--------+ + + + | ECG 12 LEAD | STAT | 02/11/2019 | | Results for this | | | | 3:13 AM | | procedure are in the | | | | PDT | | results section. | + +--------+ + + + | ED INFORMATION | Routin | 02/11/2019 | | | | EXCHANGE | e | 3:11 AM | | | | | | PDT | | | + +--------+ + + + +---+--------+ | | | | | Proced | | | ure | | | Note - | | | Ej, | | | Lab In | | | | | | Hlseve | | | n - | | | 02/11/ | | | 2019 | | | 3:12 | | | AM PDT | | | | | | Format | | | ting | | | of | | | this | | | note | | | might | | | be | | | differ | | | ent | | | from | | | the | | | origin | | | al.COL | | | LECTIV | | | E?NOTI | | | FICATI | | | ON?10/ | | | | | | 9 | | | 03:11? | | | JOHNSO | | | N, | | | STANIS | | | LAUS?M | | | RN: | | | [id number] | | | [id number] | | | riteri | | | a Met | | | 2 in | | | 2Secur | | | ity | | | and | | | Safety | | | No | | | recent | | | | | | Securi | | | ty | | | Events | | | | | | curren | | | tly on | | | | | | fileED | | | Care | | | Guidel | | | inesTh | | | ere | | | are | | | curren | | | tly no | | | ED | | | Care | | | Guidel | | | jadiel | | | for | | | this | | | patien | | | t. | | | Please | | | check | | | your | | | facili | | | ty's | | | medica | | | l | | | record | | | s | | | system | | | .Presc | | | riptio | | | n Drug | | | | | | Report | | | (12 | | | Mo.)PD | | | MP | | | query | | | found | | | no | | | report | | | .E.D. | | | Visit | | | Count | | | (12 | | | mo.)Fa | | | cility | | | | | | Visits | | | Low | | | Acuity | | | | | | [facility] | | | | | | [facility] | | | al | | | Medica | | | l | | | Center | | | 1 0 | | | [facility] [place] | | | y | | | [facility] | | | al 4 0 | | | Total | | | 5 0 | | | Note: | | | Visits | | | | | | indica | | | te | | | total | | | known | | | visits | | | . | | | Medica | | | id Low | | | | | | Acuity | | | Dx | | | are | | | the | | | number | | | of | | | primar | | | y | | | diagno | | | ses on | | | the | | | Medica | | | id's | | | Low | | | Acuity | | | dx | | | list. | | | | | | Recent | | | | | | Emerge | | | ncy | | | Depart | | | ment | | | Visit | | | [facility] | | | yDate | | | Facili | | | ty | | | City | | | State | | | Type | | | Diagno | | | ses or | | | Chief | | | | | | Compla | | | int | | | Oct | | | 20, | | | 2019 | | | [facility] | | | | | | [facility] | | | al | | | [facility] | | | [place] | | | [place] | | | Emerge | | | ncy | | | Chest | | | Pain | | | Oct | | | 19, | | | 2019 | | | [facility] [place] | | | [facility] | | | [place] | | | [place] | | | Emerge | | | ncy | | | Chief | | | Compla | | | int: | | | SOB, | | | CHEST | | | PAIN | | | Sep | | | 27, | | | 2019 | | | [facility] [place] | | | [facility] | | | [place] | | | [place] | | | Emerge | | | ncy | | | | | | Syncop | | | e and | | | collap | | | se | | | Long | | | term | | | (curre | | | nt) | | | use of | | | | | | aspiri | | | n | | | Chroni | | | c | | | kidney | | | | | | diseas | | | e, | | | unspec | | | ified | | | | | | Other | | | long | | | term | | | (curre | | | nt) | | | drug | | | therap | | | y 1 | | | Type | | | 2 | | | diabet | | | es | | | mellit | | | us | | | withou | | | t | | | compli | | | cation | | | s 1 | | | | | | Hypert | | | ensive | | | | | | chroni | | | c | | | kidney | | | | | | diseas | | | e w | | | stg | | | 1-4/un | | | sp chr | | | kdny | | | | | | Allerg | | | y | | | status | | | to | | | penici | | | llin | | | | | | Presen | | | ce of | | | dasilva | | | ry | | | angiop | | | lasty | | | implan | | | t and | | | graft | | | | | | Long | | | term | | | (curre | | | nt) | | | use of | | | | | | insuli | | | n | | | Dehydr | | | ation | | | Aug | | | 15, | | | 2019 | | | [facility] [place] | | | [facility] | | | [place] | | | [place] | | | Emerge | | | ncy | | | | | | Essent | | | ial | | | (prima | | | ry) | | | hypert | | | ension | | | | | | Allerg | | | y | | | status | | | to | | | penici | | | llin | | | | | | Other | | | long | | | term | | | (curre | | | nt) | | | drug | | | therap | | | y | | | Long | | | term | | | (curre | | | nt) | | | use of | | | | | | insuli | | | n | | | Long | | | term | | | (curre | | | nt) | | | use of | | | | | | aspiri | | | n | | | Person | | | al | | | histor | | | y of | | | nicoti | | | ne | | | depend | | | ence | | | | | | Presen | | | ce of | | | dasilva | | | ry | | | angiop | | | lasty | | | implan | | | t and | | | graft | | | 1 | | | Type 2 | | | | | | diabet | | | es | | | mellit | | | us | | | withou | | | t | | | compli | | | cation | | | s Dec | | | 29, | | | 2018 | | | [facility] [place] | | | [facility] | | | [place] | | | [place] | | | Emerge | | | ncy | | | Chief | | | Compla | | | int: | | | WEAKNE | | | SS/VOM | | | ITING | | | | | | Recent | | | | | | Inpati | | | ent | | | Visit | | | [facility] | | | yDate | | | Facili | | | ty | | | City | | | State | | | Type | | | Diagno | | | ses or | | | Chief | | | | | | Compla | | | int | | | Dec | | | 29, | | | 2018 | | | [facility] [place] | | | [facility] | | | [place] | | | [place] | | | Medica | | | l | | | Surgic | | | al | | | Other | | | viral | | | pneumo | | | odilia | | | | | | Psoria | | | sis, | | | unspec | | | ified | | | 1 | | | Type 2 | | | | | | diabet | | | es | | | mellit | | | us | | | withou | | | t | | | compli | | | cation | | | s | | | Athscl | | | heart | | | | | | diseas | | | e of | | | hoh | | | | | | dasilva | | | ry | | | artery | | | w/o | | | ang | | | pctrs | | | | | | Hypoma | | | gnesem | | | ia | | | Essent | | | ial | | | (prima | | | ry) | | | hypert | | | ension | | | | | | Person | | | al | | | histor | | | y of | | | nicoti | | | ne | | | depend | | | ence | | | | | | Presen | | | ce of | | | dasilva | | | ry | | | angiop | | | lasty | | | implan | | | t and | | | graft | | | | | | Long | | | term | | | (curre | | | nt) | | | use of | | | | | | insuli | | | n | | | Unspec | | | ified | | | atrial | | | | | | fibril | | | lation | | | Care | | | | | | TeamPr | | | ovider | | | | | | Specia | | | lty | | | Phone | | | Fax | | | Servic | | | e | | | Dates | | | BOURRE | | | T, | | | SUNITA | | | N, PAC | | | | | | Physic | | | sandra | | | Assist | | | ant: | | | Surgic | | | al | | | Christopher | | | 24, | | | 2018 - | | | | | | Curren | | | t | | | SUNITA | | | N | | | BAURRE | | | T, [place] | | | Primar | | | y Care | | | (541) | | | | | | [phone] | | | 30 | | | [phone] | | | [phone] | | | 72 Renaldo | | | 23, | | | 2017 - | | | | | | Curren | | | t | | | [facility] | | | tive | | | Portal | | | This | | | patien | | | t has | | | regist | | | ered | | | at the | | | | | | [facility] | | | | | | [facility] | | | al | | | Medica | | | l | | | Center | | | | | | Emerge | | | ncy | | | Depart | | | ment | | | For | | | more | | | inform | | | ation | | | visit: | | | | | | https: | | | //secu | | | re.col | | | lectiv | | | emedic | | | al.com | | | /notif | | | [id number] | | | [id number] | | | [id number] | | | [id number] | | | [id number] | | | [id number] | | | 71 | | | PLEASE | | | NOTE: | | | 1. | | | Any | | | care | | | recomm | | | endati | | | ons | | | and | | | other | | | clinic | | | al | | | inform | | | ation | | | are | | | provid | | | ed as | | | guidel | | | jadiel | | | or for | | | | | | histor | | | ical | | | purpos | | | es | | | only, | | | and | | | provid | | | ers | | | should | | | | | | exerci | | | se | | | their | | | own | | | clinic | | | al | | | judgme | | | nt | | | when | | | provid | | | ing | | | care. | | | 2. | | | You | | | may | | | only | | | use | | | this | | | inform | | | ation | | | for | | | purpos | | | es of | | | treatm | | | ent, | | | paymen | | | t or | | | health | | | care | | | operat | | | ions | | | activi | | | ties, | | | and | | | subjec | | | t to | | | the | | | limita | | | tions | | | of | | | applic | | | able | | | [facility] | | | tive | | | Polici | | | es. | | | 3. | | | You | | | should | | | | | | consul | | | t | | | direct | | | ly | | | with | | | the | | | organi | | | zation | | | that | | | provid | | | ed a | | | care | | | guidel | | | ine or | | | other | | | | | | clinic | | | al | | | histor | | | y with | | | any | | | questi | | | ons | | | about | | | additi | | | onal | | | inform | | | ation | | | or | | | accura | | | cy or | | | comple | | | teness | | | of | | | inform | | | ation | | | provid | | | ed.? | | | 2019 | | | [facility] | | | tive | | | Medica | | | l | | | [employer] | | | logies | | | , [employer] | | | - | | | [email or web address] | | | llecti | | | vemedi | | | [email or web address] | | | m | +---+--------+ documented in this encounter Results POC Glucose (02/28/2019 7:36 AM PST) + + + + + + | Component | Value | Ref Range | Performed | Pathologist | | | | | At | Signature | + + + + + + | Glucose, | 161 (H)Comment: Testing | 65 - 99 mg/dL | [facility] | | | POC | performed at [facility];[address] | LABORATORY | | | | [address];[place] | | | | | | [address] | | | | + + + + + + + + | Specimen | + + | | + + + + + + + | Performing | Address | City/State/Zipcode | Phone Number | | Organization | | | | + + + + + | [facility] | [address] | [place] [address] | [phone] | + + + + + Protime INR (02/28/2019 4:39 AM PST) + + + + + + | Component | Value | Ref Range | Performed | Pathologist | | | | | At | Signature | + + + + + + | INR | 2.8Comment: REFERENCE | | [facility] | | | | RANGE:0.9 - 1.2 | | LABORATORY | | | | NON-ANTICOAGULATED2.0 | | | | | | - 3.0 ALL OTHER | | | | | | THERAPEUTIC | | | | | | INDICATIONS2.5 - 3.5 | | | | | | MECHANICAL HEART VALVES, | | | | | | RECURRENT OR SYSTEMIC | | | | | | EMBOLISMTesting | | | | | | performed at [facility] | | | | | | [facility];[place], [place] | | | | | | [address] | | | | + + + + + + + + | Specimen | + + | Blood | + + + + + + + | Performing | Address | City/State/Zipcode | Phone Number | | Organization | | | | + + + + + | [facility] | [address] | [place] [address] | [phone] | + + + + + Magnesium (02/28/2019 4:39 AM PST) + + + + + + | Component | Value | Ref Range | Performed | Pathologist | | | | | At | Signature | + + + + + + | Magnesium | 2.0Comment: Testing | 1.7 - 2.4 mg/dL | [facility] | | | | performed at [facility], [address] | LABORATORY | | | | [address] [place], | | | | | | [place] [address] | | | | + + + + + + + + | Specimen | + + | Blood | + + + + + + + | Performing | Address | City/State/Zipcode | Phone Number | | Organization | | | | + + + + + | [facility] | [address] | [place] [address] | [phone] | + + + + + CBC with Differential (02/28/2019 4:39 AM PST) + + + + + + | Component | Value | Ref Range | Performed | Pathologist | | | | | At | Signature | + + + + + + | WBC | 10.81 | 3.80 - 11.00 | [facility] | | | | | K/uL | LABORATORY | | + + + + + + | RBC | 3.32 (L) | 4.20 - 5.70 | [facility] | | | | | M/uL | LABORATORY | | + + + + + + | Hemoglobin | 10.1 (L) | 13.2 - 17.0 | [facility] | | | | | g/dL | LABORATORY | | + + + + + + | Hematocrit | 30.5 (L) | 39.0 - 50.0 % | [facility] | | | | | | LABORATORY | | + + + + + + | MCV | 91.8 | 80.0 - 100.0 fl | [facility] | | | | | | LABORATORY | | + + + + + + | MCH | 30.4 | 27.0 - 34.0 pg | [facility] | | | | | | LABORATORY | | + + + + + + | MCHC | 33.1 | 32.0 - 35.5 | [facility] | | | | | g/dL | LABORATORY | | + + + + + + | RDW-SD | 46.4 | 37 - 53 fl | [facility] | | | | | | LABORATORY | | + + + + + + | Platelet | 591 (H) | 150 - 400 K/uL | [facility] | | | Count | | | LABORATORY | | + + + + + + | MPV | 7.4 | fl | [facility] | | | | | | LABORATORY | | + + + + + + | Diff Type | AUTOMATED | | [facility] | | | | | | LABORATORY | | + + + + + + | % | 77.49 | % | [facility] | | | Neutrophils | | | LABORATORY | | + + + + + + | % | 10.50 | % | [facility] | | | Lymphocytes | | | LABORATORY | | + + + + + + | Monocyte % | 7.99 | % | [facility] | | | | | | LABORATORY | | + + + + + + | Eosinophils | 2.95 | % | [facility] | | | % | | | LABORATORY | | + + + + + + | Basophils % | 1.07 | % | [facility] | | | | | | LABORATORY | | + + + + + + | Neutrophils | 8.38 (H) | 1.90 - 7.40 | [facility] | | | , Absolute | | K/uL | LABORATORY | | + + + + + + | Absolute | 1.14 | 1.00 - 3.90 | [facility] | | | Lymphocytes | | K/uL | LABORATORY | | + + + + + + | Absolute | 0.86 (H) | 0.00 - 0.80 | [facility] | | | Monocytes | | K/uL | LABORATORY | | + + + + + + | Eosinophils | 0.32 | 0.00 - 0.50 | [facility] | | | , Absolute | | K/uL | LABORATORY | | + + + + + + | Basophils, | 0.12 (H)Comment: Testing | 0.00 - 0.10 | [facility] | | | Absolute | performed at [facility], [address] | LABORATORY | | | | [address], | | | | | | [place] [address] | | | | + + + + + + + + | Specimen | + + | Blood | + + + + + + + | Performing | Address | City/State/Zipcode | Phone Number | | Organization | | | | + + + + + | [facility] | [address] | [place] [address] | [phone] | + + + + + Basic Metabolic Panel (02/28/2019 4:39 AM PST) + + + + + + | Component | Value | Ref Range | Performed | Pathologist | | | | | At | Signature | + + + + + + | Na | 141 | 135 - 145 | [facility] | | | | | mmol/L | LABORATORY | | + + + + + + | K | 5.4 (H) | 3.5 - 4.9 | [facility] | | | | | mmol/L | LABORATORY | | + + + + + + | Cl | 114 (H) | 99 - 109 mmol/L | [facility] | | | | | | LABORATORY | | + + + + + + | CO2 | 18 (L) | 23 - 32 mmol/L | [facility] | | | | | | LABORATORY | | + + + + + + | Anion Gap | 14 | 5 - 20 mmol/L | [facility] | | | | | | LABORATORY | | + + + + + + | Glucose | 88 | 65 - 99 mg/dL | [facility] | | | | | | LABORATORY | | + + + + + + | BUN | 41 (H) | 8 - 25 mg/dL | [facility] | | | | | | LABORATORY | | + + + + + + | Creatinine | 1.8 (H) | 0.70 - 1.30 | [facility] | | | | | mg/dL | LABORATORY | | + + + + + + | BUN/Creatin | 23 | | [facility] | | | ine Ratio | | | LABORATORY | | + + + + + + | Calcium | 8.7 | 8.5 - 10.5 | [facility] | | | | | mg/dL | LABORATORY | | + + + + + + | Estimated | 40 (L)Comment: GFR <60: | >60 | [facility] | | | GFR | CHRONIC KIDNEY DISEASE, | mL/min/1.73m2 | LABORATORY | | | | IF FOUND OVER A 3 MONTH | | | | | | PERIOD.GFR <15: KIDNEY | | | | | | FAILURE.FOR | | | | | | AMERICANS, MULTIPLY THE | | | | | | CALCULATED GFR BY | | | | | | 1.210.This eGFR is | | | | | | calculated using the | | | | | | MDRD IDMS traceable | | | | | | equation.Testing | | | | | | performed at [facility], [address] | | | | | [facility], | | | | | | [place] [address] | | | | + + + + + + + + | Specimen | + + | Blood | + + + + + + + | Performing | Address | City/State/Zipcode | Phone Number | | Organization | | | | + + + + + | [facility] | [address] | [place] [address] | [phone] | + + + + + POC Glucose (02/27/2019 9:10 PM PST) + + + + + + | Component | Value | Ref Range | Performed | Pathologist | | | | | At | Signature | + + + + + + | Glucose, | 115 (H)Comment: Testing | 65 - 99 mg/dL | [facility] | | | POC | performed at [facility];[address] | | LABORATORY | | | | [address];[place] | | | | | | [address] | | | | + + + + + + + + | Specimen | + + | | + + + + + + + | Performing | Address | City/State/Zipcode | Phone Number | | Organization | | | | + + + + + | [facility] | [address] | [place] [address] | [phone] | + + + + + POC Glucose (02/27/2019 5:25 PM PST) + + + + + + | Component | Value | Ref Range | Performed | Pathologist | | | | | At | Signature | + + + + + + | Glucose, | 205 (H)Comment: Testing | 65 - 99 mg/dL | [facility] | | | POC | performed at [facility];[address] | LABORATORY | | | [address];[place] | | | | | | [address] | | | | + + + + + + + + | Specimen | + + | | + + + + + + + | Performing | Address | City/State/Zipcode | Phone Number | | Organization | | | | + + + + + | [facility] | [address] | [place] [address] | [phone] | + + + + + POC Glucose (02/27/2019 4:48 PM PST) + + + + + + | Component | Value | Ref Range | Performed | Pathologist | | | | | At | Signature | + + + + + + | Glucose, | 191 (H)Comment: Testing | 65 - 99 mg/dL | [facility] | | | POC | performed at [facility];[address] | | LABORATORY | | | | [address];[place] | | | | | | [id number] | | | | + + + + + + + + | Specimen | + + | | + + + + + + + | Performing | Address | City/State/Zipcode | Phone Number | | Organization | | | | + + + + + | [facility] | [address] | [place] [address] | [phone] | + + + + + POC Glucose (02/27/2019 12:05 PM PST) + + + + + + | Component | Value | Ref Range | Performed | Pathologist | | | | | At | Signature | + + + + + + | Glucose, | 143 (H)Comment: Testing | 65 - 99 mg/dL | [facility] | | | POC | performed at [facility];[address] | | LABORATORY | | | | [address];[place] | | | | | | [address] | | | | + + + + + + + + | Specimen | + + | | + + + + + + + | Performing | Address | City/State/Zipcode | Phone Number | | Organization | | | | + + + + + | [facility] | [address] | [place] [address] | [phone] | + + + + + POC Glucose (02/27/2019 7:54 AM PST) + + + + + + | Component | Value | Ref Range | Performed | Pathologist | | | | | At | Signature | + + + + + + | Glucose, | 139 (H)Comment: Testing | 65 - 99 mg/dL | [facility] | | | POC | performed at [facility];[address] | | LABORATORY | | | | [address];[place] | | | | | | [address] | | | | + + + + + + + + | Specimen | + + | | + + + + + + + | Performing | Address | City/State/Zipcode | Phone Number | | Organization | | | | + + + + + | [facility] | [address] | [place] [address] | [phone] | + + + + + Protime INR (02/27/2019 3:49 AM PST) + + + + + + | Component | Value | Ref Range | Performed | Pathologist | | | | | At | Signature | + + + + + + | INR | 2.7Comment: REFERENCE | | [facility] | | | | RANGE:0.9 - 1.2 | | LABORATORY | | | | NON-ANTICOAGULATED2.0 | | | | | | - 3.0 ALL OTHER | | | | | | THERAPEUTIC | | | | | | INDICATIONS2.5 - 3.5 | | | | | | MECHANICAL HEART VALVES, | | | | | | RECURRENT OR SYSTEMIC | | | | | | EMBOLISMTesting | | | | | | performed at [facility];[address] | | | | | | [facility];[place], [place] | | | | | | [address] | | | | + + + + + + + + | Specimen | + + | Blood | + + + + + + + | Performing | Address | City/State/Zipcode | Phone Number | | Organization | | | | + + + + + | [facility] | [address] [facility] | [place] [address] | [phone] | + + + + + Magnesium (02/27/2019 3:49 AM PST) + + + + + + | Component | Value | Ref Range | Performed | Pathologist | | | | | At | Signature | + + + + + + | Magnesium | 2.0Comment: Testing | 1.7 - 2.4 mg/dL | [facility] | | | | performed at [facility], [address] | | LABORATORY | | | | [address], | | | | | | [place] [address] | | | | + + + + + + + + | Specimen | + + | Blood | + + + + + + + | Performing | Address | City/State/Zipcode | Phone Number | | Organization | | | | + + + + + | [facility] | [address] | [place] [address] | [phone] | + + + + + CBC with Differential (02/27/2019 3:49 AM PST) + + + + + + | Component | Value | Ref Range | Performed | Pathologist | | | | | At | Signature | + + + + + + | WBC | 10.67 | 3.80 - 11.00 | [facility] | | | | | K/uL | LABORATORY | | + + + + + + | RBC | 3.11 (L) | 4.20 - 5.70 | [facility] | | | | | M/uL | LABORATORY | | + + + + + + | Hemoglobin | 9.9 (L) | 13.2 - 17.0 | [facility] | | | | | g/dL | LABORATORY | | + + + + + + | Hematocrit | 28.9 (L) | 39.0 - 50.0 % | [facility] | | | | | | LABORATORY | | + + + + + + | MCV | 93.0 | 80.0 - 100.0 fl | [facility] | | | | | | LABORATORY | | + + + + + + | MCH | 31.8 | 27.0 - 34.0 pg | [facility] | | | | | | LABORATORY | | + + + + + + | MCHC | 34.2 | 32.0 - 35.5 | [facility] | | | | | g/dL | LABORATORY | | + + + + + + | RDW-SD | 47.3 | 37 - 53 fl | [facility] | | | | | | LABORATORY | | + + + + + + | Platelet | 506 (H) | 150 - 400 K/uL | [facility] | | | Count | | | LABORATORY | | + + + + + + | MPV | 7.4 | fl | [facility] | | | | | | LABORATORY | | + + + + + + | Diff Type | AUTOMATED | | [facility] | | | | | | LABORATORY | | + + + + + + | % | 74.89 | % | [facility] | | | Neutrophils | | | LABORATORY | | + + + + + + | % | 13.14 | % | [facility] | | | Lymphocytes | | | LABORATORY | | + + + + + + | Monocyte % | 8.27 | % | [facility] | | | | | | LABORATORY | | + + + + + + | Eosinophils | 2.83 | % | [facility] | | | % | | | LABORATORY | | + + + + + + | Basophils % | 0.87 | % | [facility] | | | | | | LABORATORY | | + + + + + + | Neutrophils | 7.99 (H) | 1.90 - 7.40 | [facility] | | | , Absolute | | K/uL | LABORATORY | | + + + + + + | Absolute | 1.40 | 1.00 - 3.90 | [facility] | | | Lymphocytes | | K/uL | LABORATORY | | + + + + + + | Absolute | 0.88 (H) | 0.00 - 0.80 | [facility] | | | Monocytes | | K/uL | LABORATORY | | + + + + + + | Eosinophils | 0.30 | 0.00 - 0.50 | [facility] | | | , Absolute | | K/uL | LABORATORY | | + + + + + + | Basophils, | 0.09Comment: Testing | 0.00 - 0.10 | [facility] | | | Absolute | performed at [facility], [address] | K/uL | LABORATORY | | | | [address], | | | | | | [place] [address] | | | | + + + + + + + + | Specimen | + + | Blood | + + + + + + + | Performing | Address | City/State/Zipcode | Phone Number | | Organization | | | | + + + + + | [facility] | [address] | [place] [address] | [phone] | + + + + + Basic Metabolic Panel (02/27/2019 3:49 AM PST) + + + + + + | Component | Value | Ref Range | Performed | Pathologist | | | | | At | Signature | + + + + + + | Na | 140 | 135 - 145 | [facility] | | | | | mmol/L | LABORATORY | | + + + + + + | K | 4.9 | 3.5 - 4.9 | [facility] | | | | | mmol/L | LABORATORY | | + + + + + + | Cl | 115 (H) | 99 - 109 mmol/L | [facility] | | | | | | LABORATORY | | + + + + + + | CO2 | 19 (L) | 23 - 32 mmol/L | [facility] | | | | | | LABORATORY | | + + + + + + | Anion Gap | 11 | 5 - 20 mmol/L | [facility] | | | | | | LABORATORY | | + + + + + + | Glucose | 131 (H) | 65 - 99 mg/dL | [facility] | | | | | | LABORATORY | | + + + + + + | BUN | 39 (H) | 8 - 25 mg/dL | [facility] | | | | | | LABORATORY | | + + + + + + | Creatinine | 2.2 (H) | 0.70 - 1.30 | [facility] | | | | | mg/dL | LABORATORY | | + + + + + + | BUN/Creatin | 18 | | [facility] | | | ine Ratio | | | LABORATORY | | + + + + + + | Calcium | 8.2 (L) | 8.5 - 10.5 | [facility] | | | | | mg/dL | LABORATORY | | + + + + + + | Estimated | 32 (L)Comment: GFR <60: | >60 | [facility] | | | GFR | CHRONIC KIDNEY DISEASE, | mL/min/1.73m2 | LABORATORY | | | | IF FOUND OVER A 3 MONTH | | | | | | PERIOD.GFR <15: KIDNEY | | | | | | FAILURE.FOR | | | | | | AMERICANS, MULTIPLY THE | | | | | | CALCULATED GFR BY | | | | | | 1.210.This eGFR is | | | | | | calculated using the | | | | | | MDRD [facility] traceable | | | | | | equation.Testing | | | | | | performed at [facility], [address] | | | | | | [facility], | | | | | | [place] [address] | | | | + + + + + + + + | Specimen | + + | Blood | + + + + + + + | Performing | Address | City/State/Zipcode | Phone Number | | Organization | | | | + + + + + | [facility] | [address] | [place] [address] | [phone] | + + + + + POC Glucose (02/26/2019 8:34 PM PST) + + + + + + | Component | Value | Ref Range | Performed | Pathologist | | | | | At | Signature | + + + + + + | Glucose, | 153 (H)Comment: Testing | 65 - 99 mg/dL | [facility] | | | POC | performed at [facility];[address] | | LABORATORY | | | | [address];[place] | | | | | | [address] | | | | + + + + + + + + | Specimen | + + | | + + + + + + + | Performing | Address | City/State/Zipcode | Phone Number | | Organization | | | | + + + + + | [facility] | [address] | [place] [address] | [phone] | + + + + + POC Glucose (02/26/2019 4:51 PM PST) + + + + + + | Component | Value | Ref Range | Performed | Pathologist | | | | | At | Signature | + + + + + + | Glucose, | 157 (H)Comment: Testing | 65 - 99 mg/dL | [facility] | | | POC | performed at [facility];[address] | | LABORATORY | | | | [address];[place] | | | | | | [address] | | | | + + + + + + + + | Specimen | + + | | + + + + + + + | Performing | Address | City/State/Zipcode | Phone Number | | Organization | | | | + + + + + | [facility] | [address] | [place] [address] | [phone] | + + + + + POC Glucose (02/26/2019 11:45 AM PST) + + + + + + | Component | Value | Ref Range | Performed | Pathologist | | | | | At | Signature | + + + + + + | Glucose, | 119 (H)Comment: Testing | 65 - 99 mg/dL | [facility] | | | POC | performed at [facility];[address] | | LABORATORY | | | | [address];[place], [place] | | | | | | [address] | | | | + + + + + + + + | Specimen | + + | | + + + + + + + | Performing | Address | City/State/Zipcode | Phone Number | | Organization | | | | + + + + + | [facility] | [address] | [place] [address] | [phone] | + + + + + POC Glucose (02/26/2019 7:41 AM PST) + + + + + + | Component | Value | Ref Range | Performed | Pathologist | | | | | At | Signature | + + + + + + | Glucose, | 164 (H)Comment: Testing | 65 - 99 mg/dL | [facility] | | | POC | performed at [facility];[address] | | LABORATORY | | | | [address];[place] | | | | | | [address] | | | | + + + + + + + + | Specimen | + + | | + + + + + + + | Performing | Address | City/State/Zipcode | Phone Number | | Organization | | | | + + + + + | [facility] | [address] | [place] [address] | [phone] | + + + + + Darrell CHAMBERS (02/26/2019 4:04 AM PST) + + + + + + | Component | Value | Ref Range | Performed | Pathologist | | | | | At | Signature | + + + + + + | INR | 2.9Comment: REFERENCE | | [facility] | | | | RANGE:0.9 - 1.2 | | LABORATORY | | | | NON-ANTICOAGULATED2.0 | | | | | | - 3.0 ALL OTHER | | | | | | THERAPEUTIC | | | | | | INDICATIONS2.5 - 3.5 | | | | | | MECHANICAL HEART VALVES, | | | | | | RECURRENT OR SYSTEMIC | | | | | | EMBOLISMTesting | | | | | | performed at [facility];[address] | | | | | | [address];[place] | | | | | | [address] | | | | + + + + + + + + | Specimen | + + | Blood | + + + + + + + | Performing | Address | City/State/Zipcode | Phone Number | | Organization | | | | + + + + + | [facility] | [address] | [place] [address] | [phone] | + + + + + Magnesium (02/26/2019 4:04 AM PST) + + + + + + | Component | Value | Ref Range | Performed | Pathologist | | | | | At | Signature | + + + + + + | Magnesium | 2.0Comment: Testing | 1.7 - 2.4 mg/dL | [facility] | | | | performed at [facility], [address] | | LABORATORY | | | | [address], | | | | | | [place] [address] | | | | + + + + + + + + | Specimen | + + | Blood | + + + + + + + | Performing | Address | City/State/Zipcode | Phone Number | | Organization | | | | + + + + + | [facility] | [address] | [place] [address] | [phone] | + + + + + CBC with Differential (02/26/2019 4:04 AM PST) + + + + + + | Component | Value | Ref Range | Performed | Pathologist | | | | | At | Signature | + + + + + + | WBC | 9.62 | 3.80 - 11.00 | [facility] | | | | | K/uL | LABORATORY | | + + + + + + | RBC | 3.36 (L) | 4.20 - 5.70 | [facility] | | | | | M/uL | LABORATORY | | + + + + + + | Hemoglobin | 10.4 (L) | 13.2 - 17.0 | [facility] | | | | | g/dL | LABORATORY | | + + + + + + | Hematocrit | 31.1 (L) | 39.0 - 50.0 % | [facility] | | | | | | LABORATORY | | + + + + + + | MCV | 92.6 | 80.0 - 100.0 fl | [facility] | | | | | | LABORATORY | | + + + + + + | MCH | 31.1 | 27.0 - 34.0 pg | [facility] | | | | | | LABORATORY | | + + + + + + | MCHC | 33.6 | 32.0 - 35.5 | [facility] | | | | | g/dL | LABORATORY | | + + + + + + | RDW-SD | 45.1 | 37 - 53 fl | [facility] | | | | | | LABORATORY | | + + + + + + | Platelet | 577 (H) | 150 - 400 K/uL | [facility] | | | Count | | | LABORATORY | | + + + + + + | MPV | 7.3 | fl | [facility] | | | | | | LABORATORY | | + + + + + + | Diff Type | AUTOMATED | | [facility] | | | | | | LABORATORY | | + + + + + + | % | 73.49 | % | [facility] | | | Neutrophils | | | LABORATORY | | + + + + + + | % | 14.28 | % | [facility] | | | Lymphocytes | | | LABORATORY | | + + + + + + | Monocyte % | 7.85 | % | [facility] | | | | | | LABORATORY | | + + + + + + | Eosinophils | 3.57 | % | [facility] | | | % | | | LABORATORY | | + + + + + + | Basophils % | 0.81 | % | [facility] | | | | | | LABORATORY | | + + + + + + | Neutrophils | 7.07 | 1.90 - 7.40 | [facility] | | | , Absolute | | K/uL | LABORATORY | | + + + + + + | Absolute | 1.37 | 1.00 - 3.90 | [facility] | | | Lymphocytes | | K/uL | LABORATORY | | + + + + + + | Absolute | 0.76 | 0.00 - 0.80 | [facility] | | | Monocytes | | K/uL | LABORATORY | | + + + + + + | Eosinophils | 0.34 | 0.00 - 0.50 | [facility] | | | , Absolute | | K/uL | LABORATORY | | + + + + + + | Basophils, | 0.08Comment: Testing | 0.00 - 0.10 | [facility] | | | Absolute | performed at [facility], [address] | K/uL | LABORATORY | | | | [address], | | | | | | [place] [address] | | | | + + + + + + + + | Specimen | + + | Blood | + + + + + + + | Performing | Address | City/State/Zipcode | Phone Number | | Organization | | | | + + + + + | [facility] | [address] | [place] [address] | [phone] | + + + + + Basic Metabolic Panel (02/26/2019 4:04 AM PST) + + + + + + | Component | Value | Ref Range | Performed | Pathologist | | | | | At | Signature | + + + + + + | Na | 144 | 135 - 145 | [facility] | | | | | mmol/L | LABORATORY | | + + + + + + | K | 4.8 | 3.5 - 4.9 | [facility] | | | | | mmol/L | LABORATORY | | + + + + + + | Cl | 119 (H) | 99 - 109 mmol/L | [facility] | | | | | | LABORATORY | | + + + + + + | CO2 | 18 (L) | 23 - 32 mmol/L | [facility] | | | | | | LABORATORY | | + + + + + + | Anion Gap | 12 | 5 - 20 mmol/L | [facility] | | | | | | LABORATORY | | + + + + + + | Glucose | 89 | 65 - 99 mg/dL | [facility] | | | | | | LABORATORY | | + + + + + + | BUN | 27 (H) | 8 - 25 mg/dL | [facility] | | | | | | LABORATORY | | + + + + + + | Creatinine | 1.2 | 0.70 - 1.30 | [facility] | | | | | mg/dL | LABORATORY | | + + + + + + | BUN/Creatin | 23 | | [facility] | | | ine Ratio | | | LABORATORY | | + + + + + + | Calcium | 8.4 (L) | 8.5 - 10.5 | [facility] | | | | | mg/dL | LABORATORY | | + + + + + + | Estimated | >60Comment: GFR <60: | >60 | [facility] | | | GFR | CHRONIC KIDNEY DISEASE, | mL/min/1.73m2 | LABORATORY | | | | IF FOUND OVER A 3 MONTH | | | | | | PERIOD.GFR <15: KIDNEY | | | | | | FAILURE.FOR | | | | | | AMERICANS, MULTIPLY THE | | | | | | CALCULATED GFR BY | | | | | | 1.210.This eGFR is | | | | | | calculated using the | | | | | | MDRD [facility] traceable | | | | | | equation.Testing | | | | | | performed at [facility], [address] | | | | | | [facility], | | | | | | [place] [address] | | | | + + + + + + + + | Specimen | + + | Blood | + + + + + + + | Performing | Address | City/State/Zipcode | Phone Number | | Organization | | | | + + + + + | [facility] | [address] | [place] [address] | [phone] | + + + + + POC Glucose (02/25/2019 9:05 PM PST) + + + + + + | Component | Value | Ref Range | Performed | Pathologist | | | | | At | Signature | + + + + + + | Glucose, | 114 (H)Comment: Testing | 65 - 99 mg/dL | [facility] | | | POC | performed at [facility];[address] | | LABORATORY | | | | [address];[place] | | | | | | [address] | | | | + + + + + + + + | Specimen | + + | | + + + + + + + | Performing | Address | City/State/Zipcode | Phone Number | | Organization | | | | + + + + + | [facility] | [address] | [place] [address] | [phone] | + + + + + Clostridium difficile DNA amplified (02/25/2019 5:42 PM PST) + + + + + + | Component | Value | Ref Range | Performed | Pathologist | | | | | At | Signature | + + + + + + | C. Diff | NEGATIVE | CLNEG | [facility] | | | Toxin A/B, | | | LABORATORY | | | NAAT | | | | | + + + + + + | C Diff | 027 NAP1 BI PRESUMPTIVE | | [facility] | | | Strain | NEGATIVEComment: | | LABORATORY | | | [id number] | Detection of 027 NAP1 BI | | | | | , Stool | strains of C. difficile | | | | | | is presumptive and | | | | | | forepidemiological | | | | | | purposes and not | | | | | | intended to guide or | | | | | | monitor treatment for | | | | | | C.difficile | | | | | | infections.Testing | | | | | | performed at [facility] | | | | | | [facility];[place], [place] | | | | | | [address] | | | | + + + + + + + + | Specimen | + + | Stool - Stool | | specimen (specimen) | + + + + + + + | Performing | Address | City/State/Zipcode | Phone Number | | Organization | | | | + + + + + | [facility] | [address] | [place] [address] | [phone] | + + + + + POC Glucose (02/25/2019 4:31 PM PST) + + + + + + | Component | Value | Ref Range | Performed | Pathologist | | | | | At | Signature | + + + + + + | Glucose, | 231 (H)Comment: Testing | 65 - 99 mg/dL | [facility] | | | POC | performed at [facility];[address] | | LABORATORY | | | | [address];[place] | | | | | | [address] | | | | + + + + + + + + | Specimen | + + | | + + + + + + + | Performing | Address | City/State/Zipcode | Phone Number | | Organization | | | | + + + + + | [facility] | [address] | [place] [address] | [phone] | + + + + + POC Glucose (02/25/2019 12:05 PM PST) + + + + + + | Component | Value | Ref Range | Performed | Pathologist | | | | | At | Signature | + + + + + + | Glucose, | 242 (H)Comment: Testing | 65 - 99 mg/dL | [facility] | | | POC | performed at [facility];[address] | | LABORATORY | | | | [address];[place], [place] | | | | | | [address] | | | | + + + + + + + + | Specimen | + + | | + + + + + + + | Performing | Address | City/State/Zipcode | Phone Number | | Organization | | | | + + + + + | [facility] | [address] | [place] [address] | [phone] | + + + + + Clostridium difficile A and B EIA (02/25/2019 11:25 AM PST) + + + + + + | Component | Value | Ref Range | Performed | Pathologist | | | | | At | Signature | + + + + + + | Clostridium | NEGATIVE | NEG | [facility] | | | Difficile | | | LABORATORY | | | GDH Antigen | | | | | + + + + + + | C. Diff | POSITIVE (A) | NEG | [facility] | | | Toxin A/B | | | LABORATORY | | | EIA | | | | | + + + + + + | C. | Indeterminant, repeat | | [facility] | | | difficile, | with fresh | | LABORATORY | | | Interp | sample.Comment: Testing | | | | | | performed at [facility];[address] | | | | | | [address] [facility];[place] | | | | | | [address] | | | | + + + + + + + + | Specimen | + + | | + + + + + + + | Performing | Address | City/State/Zipcode | Phone Number | | Organization | | | | + + + + + | [facility] | [address] | [place] [address] | [phone] | + + + + + POC Glucose (02/25/2019 7:41 AM PST) + + + + + + | Component | Value | Ref Range | Performed | Pathologist | | | | | At | Signature | + + + + + + | Glucose, | 147 (H)Comment: Testing | 65 - 99 mg/dL | [facility] | | | POC | performed at [facility];[address] | | LABORATORY | | | | [address];[place], [place] | | | | | | [address] | | | | + + + + + + + + | Specimen | + + | | + + + + + + + | Performing | Address | City/State/Zipcode | Phone Number | | Organization | | | | + + + + + | [facility] | [address] | [place] [address] | [phone] | + + + + + POC Glucose (02/25/2019 6:42 AM PST) + + + + + + | Component | Value | Ref Range | Performed | Pathologist | | | | | At | Signature | + + + + + + | Glucose, | 111 (H)Comment: Testing | 65 - 99 mg/dL | [facility] | | | POC | performed at [facility];[address] | | LABORATORY | | | | [address];[place] | | | | | | [address] | | | | + + + + + + + + | Specimen | + + | | + + + + + + + | Performing | Address | City/State/Zipcode | Phone Number | | Organization | | | | + + + + + | [facility] | [address] | [place] [address] | [phone] | + + + + + Hepatic Function Panel (02/25/2019 4:07 AM PST) + + + + + + | Component | Value | Ref Range | Performed | Pathologist | | | | | At | Signature | + + + + + + | Protein, | 6.8 | 6.3 - 8.2 g/dL | [facility] | | | Total | | | LABORATORY | | + + + + + + | Albumin | 2.1 (L) | 3.6 - 5.0 g/dL | [facility] | | | | | | LABORATORY | | + + + + + + | BILIRUBIN, | 0.2 | 0.1 - 1.5 mg/dL | [facility] | | | TOTAL | | | LABORATORY | | + + + + + + | Bilirubin | 0.1 | 0.0 - 0.3 mg/dL | [facility] | | | Direct | | | LABORATORY | | + + + + + + | ALK PHOS | 114 | 35 - 115 U/L | [facility] | | | | | | LABORATORY | | + + + + + + | AST | 70 (H) | 10 - 45 U/L | [facility] | | | | | | LABORATORY | | + + + + + + | ALT | 64Comment: Testing | 10 - 65 U/L | [facility] | | | | performed at [facility], [address] | | LABORATORY | | | | [address], | | | | | | [place] [address] | | | | + + + + + + + + | Specimen | + + | Blood | + + + + + + + | Performing | Address | City/State/Zipcode | Phone Number | | Organization | | | | + + + + + | [facility] | [address] | [place] [address] | [phone] | + + + + + Protime INR (02/25/2019 4:07 AM PST) + + + + + + | Component | Value | Ref Range | Performed | Pathologist | | | | | At | Signature | + + + + + + | INR | 2.2Comment: REFERENCE | | [facility] | | | | RANGE:0.9 - 1.2 | | LABORATORY | | | | NON-ANTICOAGULATED2.0 | | | | | | - 3.0 ALL OTHER | | | | | | THERAPEUTIC | | | | | | INDICATIONS2.5 - 3.5 | | | | | | MECHANICAL HEART VALVES, | | | | | | RECURRENT OR SYSTEMIC | | | | | | EMBOLISMTesting | | | | | | performed at [facility];[id number] | | | | | | [facility];[place], [place] | | | | | | [address] | | | | + + + + + + + + | Specimen | + + | Blood | + + + + + + + | Performing | Address | City/State/Zipcode | Phone Number | | Organization | | | | + + + + + | [facility] | [address] [facility] | [place] [address] | [phone] | + + + + + Magnesium (02/25/2019 4:07 AM PST) + + + + + + | Component | Value | Ref Range | Performed | Pathologist | | | | | At | Signature | + + + + + + | Magnesium | 2.0Comment: Testing | 1.7 - 2.4 mg/dL | [facility] | | | | performed at [facility], [address] | | LABORATORY | | | | [address], | | | | | | [place] [address] | | | | + + + + + + + + | Specimen | + + | Blood | + + + + + + + | Performing | Address | City/State/Zipcode | Phone Number | | Organization | | | | + + + + + | [facility] | [address] | [place] [address] | [phone] | + + + + + CBC with Differential (02/25/2019 4:07 AM PST) + + + + + + | Component | Value | Ref Range | Performed | Pathologist | | | | | At | Signature | + + + + + + | WBC | 9.75 | 3.80 - 11.00 | [facility] | | | | | K/uL | LABORATORY | | + + + + + + | RBC | 3.42 (L) | 4.20 - 5.70 | [facility] | | | | | M/uL | LABORATORY | | + + + + + + | Hemoglobin | 10.5 (L) | 13.2 - 17.0 | [facility] | | | | | g/dL | LABORATORY | | + + + + + + | Hematocrit | 31.9 (L) | 39.0 - 50.0 % | [facility] | | | | | | LABORATORY | | + + + + + + | MCV | 93.3 | 80.0 - 100.0 fl | [facility] | | | | | | LABORATORY | | + + + + + + | MCH | 30.6 | 27.0 - 34.0 pg | [facility] | | | | | | LABORATORY | | + + + + + + | MCHC | 32.8 | 32.0 - 35.5 | [facility] | | | | | g/dL | LABORATORY | | + + + + + + | RDW-SD | 47.7 | 37 - 53 fl | [facility] | | | | | | LABORATORY | | + + + + + + | Platelet | 559 (H) | 150 - 400 K/uL | [facility] | | | Count | | | LABORATORY | | + + + + + + | MPV | 7.1 | fl | [facility] | | | | | | LABORATORY | | + + + + + + | Diff Type | AUTOMATED | | [facility] | | | | | | LABORATORY | | + + + + + + | % | 74.04 | % | [facility] | | | Neutrophils | | | LABORATORY | | + + + + + + | % | 12.93 | % | [facility] | | | Lymphocytes | | | LABORATORY | | + + + + + + | Monocyte % | 8.71 | % | [facility] | | | | | | LABORATORY | | + + + + + + | Eosinophils | 3.38 | % | [facility] | | | % | | | LABORATORY | | + + + + + + | Basophils % | 0.94 | % | [facility] | | | | | | LABORATORY | | + + + + + + | Neutrophils | 7.22 | 1.90 - 7.40 | [facility] | | | , Absolute | | K/uL | LABORATORY | | + + + + + + | Absolute | 1.26 | 1.00 - 3.90 | [facility] | | | Lymphocytes | | K/uL | LABORATORY | | + + + + + + | Absolute | 0.85 (H) | 0.00 - 0.80 | [facility] | | | Monocytes | | K/uL | LABORATORY | | + + + + + + | Eosinophils | 0.33 | 0.00 - 0.50 | [facility] | | | , Absolute | | K/uL | LABORATORY | | + + + + + + | Basophils, | 0.09Comment: Testing | 0.00 - 0.10 | [facility] | | | Absolute | performed at [facility], [address] | K/uL | LABORATORY | | | | [address], | | | | | | [place] [address] | | | | + + + + + + + + | Specimen | + + | Blood | + + + + + + + | Performing | Address | City/State/Zipcode | Phone Number | | Organization | | | | + + + + + | [facility] | [address] | [place] [address] | [phone] | + + + + + Basic Metabolic Panel (02/25/2019 4:07 AM PST) + + + + + + | Component | Value | Ref Range | Performed | Pathologist | | | | | At | Signature | + + + + + + | Na | 141 | 135 - 145 | [facility] | | | | | mmol/L | LABORATORY | | + + + + + + | K | 4.3 | 3.5 - 4.9 | [facility] | | | | | mmol/L | LABORATORY | | + + + + + + | Cl | 116 (H) | 99 - 109 mmol/L | [facility] | | | | | | LABORATORY | | + + + + + + | CO2 | 14 (LL)Comment: RESULT | 23 - 32 mmol/L | [facility] | | | | READ BACK BY:CALDERON Abarca 9RP | | LABORATORY | | | | [id number] CMS | | | | | |CALDERON Abarca 9RP 0733 [id number] CMS | | | | | | | | | | + + + + + + | Anion Gap | 15 | 5 - 20 mmol/L | [facility] | | | | | | LABORATORY | | + + + + + + | Glucose | 148 (H) | 65 - 99 mg/dL | [facility] | | | | | | LABORATORY | | + + + + + + | BUN | 34 (H) | 8 - 25 mg/dL | [facility] | | | | | | LABORATORY | | + + + + + + | Creatinine | 1.4 (H) | 0.70 - 1.30 | [facility] | | | | | mg/dL | LABORATORY | | + + + + + + | BUN/Creatin | 24 | | [facility] | | | ine Ratio | | | LABORATORY | | + + + + + + | Calcium | 8.4 (L) | 8.5 - 10.5 | [facility] | | | | | mg/dL | LABORATORY | | + + + + + + | Estimated | 53 (L)Comment: GFR <60: | >60 | [facility] | | | GFR | CHRONIC KIDNEY DISEASE, | mL/min/1.73m2 | LABORATORY | | | | IF FOUND OVER A 3 MONTH | | | | | | PERIOD.GFR <15: KIDNEY | | | | | | FAILURE.FOR | | | | | | AMERICANS, MULTIPLY THE | | | | | | CALCULATED GFR BY | | | | | | 1.210.This eGFR is | | | | | | calculated using the | | | | | | MDRD IDHI traceable | | | | | | equation.Testing | | | | | | performed at [facility], [address] | | | | | | [facility], | | | | | | [place] [address] | | | | + + + + + + + + | Specimen | + + | Blood | + + + + + + + | Performing | Address | City/State/Zipcode | Phone Number | | Organization | | | | + + + + + | [facility] | [address] | [place] [address] | [phone] | + + + + + POC Glucose (02/25/2019 3:45 AM PST) + + + + + + | Component | Value | Ref Range | Performed | Pathologist | | | | | At | Signature | + + + + + + | Glucose, | 151 (H)Comment: Testing | 65 - 99 mg/dL | [facility] | | | POC | performed at [facility];[address] | | LABORATORY | | | | [address];[place] | | | | | | [address] | | | | + + + + + + + + | Specimen | + + | | + + + + + + + | Performing | Address | City/State/Zipcode | Phone Number | | Organization | | | | + + + + + | [facility] | [address] | [place] [address] | [phone] | + + + + + POC Glucose (02/24/2019 4:29 PM PDT) + + + + + + | Component | Value | Ref Range | Performed | Pathologist | | | | | At | Signature | + + + + + + | Glucose, | 170 (H)Comment: Testing | 65 - 99 mg/dL | [facility] | | | POC | performed at [facility];[address] | | LABORATORY | | | | [address];[place] | | | | | | [address] | | | | + + + + + + + + | Specimen | + + | | + + + + + + + | Performing | Address | City/State/Zipcode | Phone Number | | Organization | | | | + + + + + | [facility] | [address] | [place] [address] | [phone] | + + + + + POC Glucose (02/24/2019 1:07 PM PDT) + + + + + + | Component | Value | Ref Range | Performed | Pathologist | | | | | At | Signature | + + + + + + | Glucose, | 179 (H)Comment: Testing | 65 - 99 mg/dL | [facility] | | | POC | performed at [facility];[address] | | LABORATORY | | | | [address];[place] | | | | | | [address] | | | | + + + + + + + + | Specimen | + + | | + + + + + + + | Performing | Address | City/State/Zipcode | Phone Number | | Organization | | | | + + + + + | [facility] | [address] | [place] [address] | [phone] | + + + + + POC Glucose (02/24/2019 6:28 AM PDT) + + + + + + | Component | Value | Ref Range | Performed | Pathologist | | | | | At | Signature | + + + + + + | Glucose, | 125 (H)Comment: Testing | 65 - 99 mg/dL | [facility] | | | POC | performed at [facility];[address] | | LABORATORY | | | | [address];[place] | | | | | | [address] | | | | + + + + + + + + | Specimen | + + | | + + + + + + + | Performing | Address | City/State/Zipcode | Phone Number | | Organization | | | | + + + + + | [facility] | [address] [facility] | [place] [address] | [phone] | + + + + + Sandipime INR (02/24/2019 4:22 AM PDT) + + + + + + | Component | Value | Ref Range | Performed | Pathologist | | | | | At | Signature | + + + + + + | INR | 1.7Comment: REFERENCE | | [facility] | | | | RANGE:0.9 - 1.2 | | LABORATORY | | | | NON-ANTICOAGULATED2.0 | | | | | | - 3.0 ALL OTHER | | | | | | THERAPEUTIC | | | | | | INDICATIONS2.5 - 3.5 | | | | | | MECHANICAL HEART VALVES, | | | | | | RECURRENT OR SYSTEMIC | | | | | | EMBOLISMTesting | | | | | | performed at [facility];[address] | | | | | | [address];[place], [place] | | | | | | [address] | | | | + + + + + + + + | Specimen | + + | Blood | + + + + + + + | Performing | Address | City/State/Zipcode | Phone Number | | Organization | | | | + + + + + | [facility] | [address] | [place] [address] | [phone] | + + + + + Magnesium (02/24/2019 4:22 AM PDT) + + + + + + | Component | Value | Ref Range | Performed | Pathologist | | | | | At | Signature | + + + + + + | Magnesium | 1.8Comment: Testing | 1.7 - 2.4 mg/dL | [facility] | | | | performed at [facility], [address] | | LABORATORY | | | | [address], | | | | | | [place] [address] | | | | + + + + + + + + | Specimen | + + | Blood | + + + + + + + | Performing | Address | City/State/Zipcode | Phone Number | | Organization | | | | + + + + + | [facility] | [address] | [place] [address] | [phone] | + + + + + CBC with Differential (02/24/2019 4:22 AM PDT) + + + + + + | Component | Value | Ref Range | Performed | Pathologist | | | | | At | Signature | + + + + + + | WBC | 9.97 | 3.80 - 11.00 | [facility] | | | | | K/uL | LABORATORY | | + + + + + + | RBC | 3.33 (L) | 4.20 - 5.70 | [facility] | | | | | M/uL | LABORATORY | | + + + + + + | Hemoglobin | 10.5 (L) | 13.2 - 17.0 | [facility] | | | | | g/dL | LABORATORY | | + + + + + + | Hematocrit | 30.7 (L) | 39.0 - 50.0 % | [facility] | | | | | | LABORATORY | | + + + + + + | MCV | 92.2 | 80.0 - 100.0 fl | [facility] | | | | | | LABORATORY | | + + + + + + | MCH | 31.4 | 27.0 - 34.0 pg | [facility] | | | | | | LABORATORY | | + + + + + + | MCHC | 34.1 | 32.0 - 35.5 | [facility] | | | | | g/dL | LABORATORY | | + + + + + + | RDW-SD | 46.8 | 37 - 53 fl | [facility] | | | | | | LABORATORY | | + + + + + + | Platelet | 528 (H) | 150 - 400 K/uL | [facility] | | | Count | | | LABORATORY | | + + + + + + | MPV | 7.3 | fl | [facility] | | | | | | LABORATORY | | + + + + + + | Diff Type | AUTOMATED | | [facility] | | | | | | LABORATORY | | + + + + + + | % | 73.94 | % | [facility] | | | Neutrophils | | | LABORATORY | | + + + + + + | % | 12.93 | % | [facility] | | | Lymphocytes | | | LABORATORY | | + + + + + + | Monocyte % | 8.89 | % | [facility] | | | | | | LABORATORY | | + + + + + + | Eosinophils | 3.37 | % | [facility] | | | % | | | LABORATORY | | + + + + + + | Basophils % | 0.87 | % | [facility] | | | | | | LABORATORY | | + + + + + + | Neutrophils | 7.37 | 1.90 - 7.40 | [facility] | | | , Absolute | | K/uL | LABORATORY | | + + + + + + | Absolute | 1.29 | 1.00 - 3.90 | [facility] | | | Lymphocytes | | K/uL | LABORATORY | | + + + + + + | Absolute | 0.89 (H) | 0.00 - 0.80 | [facility] | | | Monocytes | | K/uL | LABORATORY | | + + + + + + | Eosinophils | 0.34 | 0.00 - 0.50 | [facility] | | | , Absolute | | K/uL | LABORATORY | | + + + + + + | Basophils, | 0.09Comment: Testing | 0.00 - 0.10 | [facility] | | | Absolute | performed at [facility], [address] | K/uL | LABORATORY | | | | [address], | | | | | | [place] [address] | | | | + + + + + + + + | Specimen | + + | Blood | + + + + + + + | Performing | Address | City/State/Zipcode | Phone Number | | Organization | | | | + + + + + | [facility] | [address] | [place] [address] | [phone] | + + + + + Basic Metabolic Panel (02/24/2019 4:22 AM PDT) + + + + + + | Component | Value | Ref Range | Performed | Pathologist | | | | | At | Signature | + + + + + + | Na | 140 | 135 - 145 | [facility] | | | | | mmol/L | LABORATORY | | + + + + + + | K | 4.3 | 3.5 - 4.9 | [facility] | | | | | mmol/L | LABORATORY | | + + + + + + | Cl | 115 (H) | 99 - 109 mmol/L | [facility] | | | | | | LABORATORY | | + + + + + + | CO2 | 18 (L) | 23 - 32 mmol/L | [facility] | | | | | | LABORATORY | | + + + + + + | Anion Gap | 11 | 5 - 20 mmol/L | [facility] | | | | | | LABORATORY | | + + + + + + | Glucose | 123 (H) | 65 - 99 mg/dL | [facility] | | | | | | LABORATORY | | + + + + + + | BUN | 29 (H) | 8 - 25 mg/dL | [facility] | | | | | | LABORATORY | | + + + + + + | Creatinine | 1.4 (H) | 0.70 - 1.30 | [facility] | | | | | mg/dL | LABORATORY | | + + + + + + | BUN/Creatin | 21 | | [facility] | | | ine Ratio | | | LABORATORY | | + + + + + + | Calcium | 8.2 (L) | 8.5 - 10.5 | [facility] | | | | | mg/dL | LABORATORY | | + + + + + + | Estimated | 53 (L)Comment: GFR <60: | >60 | [facility] | | | GFR | CHRONIC KIDNEY DISEASE, | mL/min/1.73m2 | LABORATORY | | | | IF FOUND OVER A 3 MONTH | | | | | | PERIOD.GFR <15: KIDNEY | | | | | | FAILURE.FOR | | | | | | AMERICANS, MULTIPLY THE | | | | | | CALCULATED GFR BY | | | | | | 1.210.This eGFR is | | | | | | calculated using the | | | | | | MDRD IDHI traceable | | | | | | equation.Testing | | | | | | performed at [facility], [address] | | | | | | [facility], | | | | | | [place] [address] | | | | + + + + + + + + | Specimen | + + | Blood | + + + + + + + | Performing | Address | City/State/Zipcode | Phone Number | | Organization | | | | + + + + + | [facility] | [address] | [place] [address] | [phone] | + + + + + PTT (02/24/2019 4:22 AM PDT) + + + + + + | Component | Value | Ref Range | Performed | Pathologist | | | | | At | Signature | + + + + + + | PTT | 90 (HH)Comment: CALLED | 23 - 32 seconds | [facility] | | | | NURSING UNITREAD BACK | | LABORATORY | | | | RESULTS VERIFIEDYESSICA | | | | | | O IN 9RP AT 0542 BY | | | | | | TDTesting performed at | | | | | | [facility];[address];[place] [address] | | | | + + + + + + + + | Specimen | + + | Blood | + + + + + + + | Performing | Address | City/State/Zipcode | Phone Number | | Organization | | | | + + + + + | [facility] | [address] | [place] [address] | [phone] | + + + + + Potassium (02/23/2019 9:19 PM PDT) + + + + + + | Component | Value | Ref Range | Performed | Pathologist | | | | | At | Signature | + + + + + + | K | 4.8Comment: Testing | 3.5 - 4.9 | [facility] | | | | performed at [facility];[address] | mmol/L | LABORATORY | | | | [address];[place], [place] | | | | | | [address] | | | | + + + + + + + + | Specimen | + + | Blood | + + + + + + + | Performing | Address | City/State/Zipcode | Phone Number | | Organization | | | | + + + + + | [facility] | [address] | [place] [address] | [phone] | + + + + + POC Glucose (02/23/2019 9:12 PM PDT) + + + + + + | Component | Value | Ref Range | Performed | Pathologist | | | | | At | Signature | + + + + + + | Glucose, | 169 (H)Comment: Testing | 65 - 99 mg/dL | [facility] | | | POC | performed at [facility];[address] | | LABORATORY | | | | [address];[place] | | | | | | [address] | | | | + + + + + + + + | Specimen | + + | | + + + + + + + | Performing | Address | City/State/Zipcode | Phone Number | | Organization | | | | + + + + + | [facility] | [address] | [place] [address] | [phone] | + + + + + POC Glucose (02/23/2019 5:32 PM PDT) + + + + + + | Component | Value | Ref Range | Performed | Pathologist | | | | | At | Signature | + + + + + + | Glucose, | 177 (H)Comment: Testing | 65 - 99 mg/dL | [facility] | | | POC | performed at [facility];[address] | | LABORATORY | | | | [address];[place] | | | | | | [address] | | | | + + + + + + + + | Specimen | + + | | + + + + + + + | Performing | Address | City/State/Zipcode | Phone Number | | Organization | | | | + + + + + | [facility] | [address] | [place] [address] | [phone] | + + + + + POC Glucose (02/23/2019 11:56 AM PDT) + + + + + + | Component | Value | Ref Range | Performed | Pathologist | | | | | At | Signature | + + + + + + | Glucose, | 118 (H)Comment: Testing | 65 - 99 mg/dL | [facility] | | | POC | performed at [facility];[address] | | LABORATORY | | | | [address];[place], [place] | | | | | | [address] | | | | + + + + + + + + | Specimen | + + | | + + + + + + + | Performing | Address | City/State/Zipcode | Phone Number | | Organization | | | | + + + + + | [facility] | [address] | [place] [address] | [phone] | + + + + + POC Glucose (02/23/2019 9:29 AM PDT) + + + + + + | Component | Value | Ref Range | Performed | Pathologist | | | | | At | Signature | + + + + + + | Glucose, | 165 (H)Comment: Testing | 65 - 99 mg/dL | [facility] | | | POC | performed at [facility];[address] | | LABORATORY | | | | [address];[place] | | | | | | [address] | | | | + + + + + + + + | Specimen | + + | | + + + + + + + | Performing | Address | City/State/Zipcode | Phone Number | | Organization | | | | + + + + + | [facility] | [address] | [place] [address] | [phone] | + + + + + PTT (02/23/2019 4:24 AM PDT) + + + + + + | Component | Value | Ref Range | Performed | Pathologist | | | | | At | Signature | + + + + + + | PTT | 56 (H)Comment: Testing | 23 - 32 seconds | [facility] | | | | performed at [facility];[address] | | LABORATORY | | | | [address];[place] | | | | | | [address] | | | | + + + + + + + + | Specimen | + + | | + + + + + + + | Performing | Address | City/State/Zipcode | Phone Number | | Organization | | | | + + + + + | [facility] | [address] | [place] [address] | [phone] | + + + + + Protime INR (02/23/2019 4:24 AM PDT) + + + + + + | Component | Value | Ref Range | Performed | Pathologist | | | | | At | Signature | + + + + + + | INR | 1.2Comment: REFERENCE | | [facility] | | | | RANGE:0.9 - 1.2 | | LABORATORY | | | | NON-ANTICOAGULATED2.0 | | | | | | - 3.0 ALL OTHER | | | | | | THERAPEUTIC | | | | | | INDICATIONS2.5 - 3.5 | | | | | | MECHANICAL HEART VALVES, | | | | | | RECURRENT OR SYSTEMIC | | | | | | EMBOLISMTesting | | | | | | performed at [facility] | | | | | | [facility];[place], [place] | | | | | | [address] | | | | + + + + + + + + | Specimen | + + | Blood | + + + + + + + | Performing | Address | City/State/Zipcode | Phone Number | | Organization | | | | + + + + + | [facility] | [address] | [place] [address] | [phone] | + + + + + Magnesium (02/23/2019 4:24 AM PDT) + + + + + + | Component | Value | Ref Range | Performed | Pathologist | | | | | At | Signature | + + + + + + | Magnesium | 2.0Comment: Testing | 1.7 - 2.4 mg/dL | [facility] | | | | performed at [facility], [address] | | LABORATORY | | | | [address], | | | | | | [place] [address] | | | | + + + + + + + + | Specimen | + + | Blood | + + + + + + + | Performing | Address | City/State/Zipcode | Phone Number | | Organization | | | | + + + + + | [facility] | [address] | [place] [address] | [phone] | + + + + + CBC with Differential (02/23/2019 4:24 AM PDT) + + + + + + | Component | Value | Ref Range | Performed | Pathologist | | | | | At | Signature | + + + + + + | WBC | 10.49 | 3.80 - 11.00 | [facility] | | | | | K/uL | LABORATORY | | + + + + + + | RBC | 3.71 (L) | 4.20 - 5.70 | [facility] | | | | | M/uL | LABORATORY | | + + + + + + | Hemoglobin | 11.6 (L) | 13.2 - 17.0 | [facility] | | | | | g/dL | LABORATORY | | + + + + + + | Hematocrit | 34.3 (L) | 39.0 - 50.0 % | [facility] | | | | | | LABORATORY | | + + + + + + | MCV | 92.5 | 80.0 - 100.0 fl | [facility] | | | | | | LABORATORY | | + + + + + + | MCH | 31.2 | 27.0 - 34.0 pg | [facility] | | | | | | LABORATORY | | + + + + + + | MCHC | 33.7 | 32.0 - 35.5 | [facility] | | | | | g/dL | LABORATORY | | + + + + + + | RDW-SD | 45.5 | 37 - 53 fl | [facility] | | | | | | LABORATORY | | + + + + + + | Platelet | 507 (H) | 150 - 400 K/uL | [facility] | | | Count | | | LABORATORY | | + + + + + + | MPV | 7.8 | fl | [facility] | | | | | | LABORATORY | | + + + + + + | Diff Type | AUTOMATED | | [facility] | | | | | | LABORATORY | | + + + + + + | % | 75.71 | % | [facility] | | | Neutrophils | | | LABORATORY | | + + + + + + | % | 11.00 | % | [facility] | | | Lymphocytes | | | LABORATORY | | + + + + + + | Monocyte % | 8.74 | % | [facility] | | | | | | LABORATORY | | + + + + + + | Eosinophils | 3.71 | % | [facility] | | | % | | | LABORATORY | | + + + + + + | Basophils % | 0.84 | % | [facility] | | | | | | LABORATORY | | + + + + + + | Neutrophils | 7.94 (H) | 1.90 - 7.40 | [facility] | | | , Absolute | | K/uL | LABORATORY | | + + + + + + | Absolute | 1.15 | 1.00 - 3.90 | [facility] | | | Lymphocytes | | K/uL | LABORATORY | | + + + + + + | Absolute | 0.92 (H) | 0.00 - 0.80 | [facility] | | | Monocytes | | K/uL | LABORATORY | | + + + + + + | Eosinophils | 0.39 | 0.00 - 0.50 | [facility] | | | , Absolute | | K/uL | LABORATORY | | + + + + + + | Basophils, | 0.09Comment: Testing | 0.00 - 0.10 | [facility] | | | Absolute | performed at [facility], [address] | K/uL | LABORATORY | | | | [address], | | | | | | [place] [address] | | | | + + + + + + + + | Specimen | + + | Blood | + + + + + + + | Performing | Address | City/State/Zipcode | Phone Number | | Organization | | | | + + + + + | [facility] | [address] | [place] [address] | [phone] | + + + + + Basic Metabolic Panel (02/23/2019 4:24 AM PDT) + + + + + + | Component | Value | Ref Range | Performed | Pathologist | | | | | At | Signature | + + + + + + | Na | 141 | 135 - 145 | [facility] | | | | | mmol/L | LABORATORY | | + + + + + + | K | 3.9 | 3.5 - 4.9 | [facility] | | | | | mmol/L | LABORATORY | | + + + + + + | Cl | 113 (H) | 99 - 109 mmol/L | [facility] | | | | | | LABORATORY | | + + + + + + | CO2 | 21 (L) | 23 - 32 mmol/L | [facility] | | | | | | LABORATORY | | + + + + + + | Anion Gap | 11 | 5 - 20 mmol/L | [facility] | | | | | | LABORATORY | | + + + + + + | Glucose | 158 (H) | 65 - 99 mg/dL | [facility] | | | | | | LABORATORY | | + + + + + + | BUN | 28 (H) | 8 - 25 mg/dL | [facility] | | | | | | LABORATORY | | + + + + + + | Creatinine | 1.4 (H) | 0.70 - 1.30 | [facility] | | | | | mg/dL | LABORATORY | | + + + + + + | BUN/Creatin | 20 | | [facility] | | | ine Ratio | | | LABORATORY | | + + + + + + | Calcium | 8.7 | 8.5 - 10.5 | [facility] | | | | | mg/dL | LABORATORY | | + + + + + + | Estimated | 53 (L)Comment: GFR <60: | >60 | [facility] | | | GFR | CHRONIC KIDNEY DISEASE, | mL/min/1.73m2 | LABORATORY | | | | IF FOUND OVER A 3 MONTH | | | | | | PERIOD.GFR <15: KIDNEY | | | | | | FAILURE.FOR | | | | | | AMERICANS, MULTIPLY THE | | | | | | CALCULATED GFR BY | | | | | | 1.210.This eGFR is | | | | | | calculated using the | | | | | | MDRD IDMS traceable | | | | | | equation.Testing | | | | | | performed at [facility], [address] | | | | | | [facility], | | | | | | [place] [address] | | | | + + + + + + + + | Specimen | + + | Blood | + + + + + + + | Performing | Address | City/State/Zipcode | Phone Number | | Organization | | | | + + + + + | [facility] | [address] | [place] [address] | [phone] | + + + + + PTT (02/22/2019 10:58 PM PDT) + + + + + + | Component | Value | Ref Range | Performed | Pathologist | | | | | At | Signature | + + + + + + | PTT | 50 (H)Comment: Testing | 23 - 32 seconds | [facility] | | | | performed at [facility];[address] | | LABORATORY | | | | [address];[place] | | | | | | [address] | | | | + + + + + + + + | Specimen | + + | Blood | + + + + + + + | Performing | Address | City/State/Zipcode | Phone Number | | Organization | | | | + + + + + | [facility] | [address] | [place] [address] | [phone] | + + + + + POC Glucose (02/22/2019 9:13 PM PDT) + + + + + + | Component | Value | Ref Range | Performed | Pathologist | | | | | At | Signature | + + + + + + | Glucose, | 159 (H)Comment: Testing | 65 - 99 mg/dL | [facility] | | | POC | performed at [facility];[address] | | LABORATORY | | | | [address];[place], [place] | | | | | | [address] | | | | + + + + + + + + | Specimen | + + | | + + + + + + + | Performing | Address | City/State/Zipcode | Phone Number | | Organization | | | | + + + + + | [facility] | [address] | [place] [address] | [phone] | + + + + + POC Glucose (02/22/2019 5:37 PM PDT) + + + + + + | Component | Value | Ref Range | Performed | Pathologist | | | | | At | Signature | + + + + + + | Glucose, | 127 (H)Comment: Testing | 65 - 99 mg/dL | [facility] | | | POC | performed at [facility];[address] | | LABORATORY | | | | [address];[place] | | | | | | [address] | | | | + + + + + + + + | Specimen | + + | | + + + + + + + | Performing | Address | City/State/Zipcode | Phone Number | | Organization | | | | + + + + + | [facility] | [address] | [place] [address] | [phone] | + + + + + PTT (02/22/2019 4:55 PM PDT) + + + + + + | Component | Value | Ref Range | Performed | Pathologist | | | | | At | Signature | + + + + + + | PTT | 41 (H)Comment: Testing | 23 - 32 seconds | [facility] | | | | performed at [facility];[address] | | LABORATORY | | | | [address];[place] | | | | | | [address] | | | | + + + + + + + + | Specimen | + + | Blood | + + + + + + + | Performing | Address | City/State/Zipcode | Phone Number | | Organization | | | | + + + + + | [facility] | [address] | [place] [address] | [phone] | + + + + + Potassium (02/22/2019 12:15 PM PDT) + + + + + + | Component | Value | Ref Range | Performed | Pathologist | | | | | At | Signature | + + + + + + | K | 4.0Comment: Testing | 3.5 - 4.9 | [facility] | | | | performed at [facility];[address] | mmol/L | LABORATORY | | | | [address];[place], [place] | | | | | | [address] | | | | + + + + + + + + | Specimen | + + | Blood | + + + + + + + | Performing | Address | City/State/Zipcode | Phone Number | | Organization | | | | + + + + + | [facility] | [address] | [place] [address] | [phone] | + + + + + POC Glucose (02/22/2019 11:34 AM PDT) + + + + + + | Component | Value | Ref Range | Performed | Pathologist | | | | | At | Signature | + + + + + + | Glucose, | 147 (H)Comment: Testing | 65 - 99 mg/dL | [facility] | | | POC | performed at [facility];[address] | | LABORATORY | | | | [address];[place], [place] | | | | | | [address] | | | | + + + + + + + + | Specimen | + + | | + + + + + + + | Performing | Address | City/State/Zipcode | Phone Number | | Organization | | | | + + + + + | [facility] | [address] | [place] [address] | [phone] | + + + + + PTT (02/22/2019 10:19 AM PDT) + + + + + + | Component | Value | Ref Range | Performed | Pathologist | | | | | At | Signature | + + + + + + | PTT | 31Comment: Testing | 23 - 32 seconds | [facility] | | | | performed at [facility];[address] | | LABORATORY | | | | [address];[place] | | | | | | [address] | | | | + + + + + + + + | Specimen | + + | Blood | + + + + + + + | Performing | Address | City/State/Zipcode | Phone Number | | Organization | | | | + + + + + | [facility] | [address] | [place] [address] | [phone] | + + + + + POC Glucose (02/22/2019 7:49 AM PDT) + + + + + + | Component | Value | Ref Range | Performed | Pathologist | | | | | At | Signature | + + + + + + | Glucose, | 188 (H)Comment: Testing | 65 - 99 mg/dL | [facility] | | | POC | performed at [facility];[address] | | LABORATORY | | | | [address];[place] | | | | | | [address] | | | | + + + + + + + + | Specimen | + + | | + + + + + + + | Performing | Address | City/State/Zipcode | Phone Number | | Organization | | | | + + + + + | [facility] | [address] | [place] [address] | [phone] | + + + + + Protime INR (02/22/2019 4:02 AM PDT) + + + + + + | Component | Value | Ref Range | Performed | Pathologist | | | | | At | Signature | + + + + + + | INR | 1.1Comment: REFERENCE | | [facility] | | | | RANGE:0.9 - 1.2 | | LABORATORY | | | | NON-ANTICOAGULATED2.0 | | | | | | - 3.0 ALL OTHER | | | | | | THERAPEUTIC | | | | | | INDICATIONS2.5 - 3.5 | | | | | | MECHANICAL HEART VALVES, | | | | | | RECURRENT OR SYSTEMIC | | | | | | EMBOLISMTesting | | | | | | performed at [facility];[address] | | | | | | [address];[place] | | | | | | [address] | | | | + + + + + + + + | Specimen | + + | Blood | + + + + + + + | Performing | Address | City/State/Zipcode | Phone Number | | Organization | | | | + + + + + | [facility] | [address] | [place] [address] | [phone] | + + + + + Magnesium (02/22/2019 4:02 AM PDT) + + + + + + | Component | Value | Ref Range | Performed | Pathologist | | | | | At | Signature | + + + + + + | Magnesium | 1.8Comment: Testing | 1.7 - 2.4 mg/dL | [facility] | | | | performed at [facility], [address] | | LABORATORY | | | | [address], | | | | | | [place] [address] | | | | + + + + + + + + | Specimen | + + | Blood | + + + + + + + | Performing | Address | City/State/Zipcode | Phone Number | | Organization | | | | + + + + + | [facility] | [address] | [place] [address] | [phone] | + + + + + CBC with Differential (02/22/2019 4:02 AM PDT) + + + + + + | Component | Value | Ref Range | Performed | Pathologist | | | | | At | Signature | + + + + + + | WBC | 11.18 (H) | 3.80 - 11.00 | [facility] | | | | | K/uL | LABORATORY | | + + + + + + | RBC | 3.64 (L) | 4.20 - 5.70 | [facility] | | | | | M/uL | LABORATORY | | + + + + + + | Hemoglobin | 11.4 (L) | 13.2 - 17.0 | [facility] | | | | | g/dL | LABORATORY | | + + + + + + | Hematocrit | 33.8 (L) | 39.0 - 50.0 % | [facility] | | | | | | LABORATORY | | + + + + + + | MCV | 92.8 | 80.0 - 100.0 fl | [facility] | | | | | | LABORATORY | | + + + + + + | MCH | 31.2 | 27.0 - 34.0 pg | [facility] | | | | | | LABORATORY | | + + + + + + | MCHC | 33.6 | 32.0 - 35.5 | [facility] | | | | | g/dL | LABORATORY | | + + + + + + | RDW-SD | 44.6 | 37 - 53 fl | [facility] | | | | | | LABORATORY | | + + + + + + | Platelet | 409 (H) | 150 - 400 K/uL | [facility] | | | Count | | | LABORATORY | | + + + + + + | MPV | 7.4 | fl | [facility] | | | | | | LABORATORY | | + + + + + + | Diff Type | AUTOMATED | | [facility] | | | | | | LABORATORY | | + + + + + + | % | 74.17 | % | [facility] | | | Neutrophils | | | LABORATORY | | + + + + + + | % | 12.01 | % | [facility] | | | Lymphocytes | | | LABORATORY | | + + + + + + | Monocyte % | 9.97 | % | [facility] | | | | | | LABORATORY | | + + + + + + | Eosinophils | 3.35 | % | [facility] | | | % | | | LABORATORY | | + + + + + + | Basophils % | 0.50 | % | [facility] | | | | | | LABORATORY | | + + + + + + | Neutrophils | 8.29 (H) | 1.90 - 7.40 | [facility] | | | , Absolute | | K/uL | LABORATORY | | + + + + + + | Absolute | 1.34 | 1.00 - 3.90 | [facility] | | | Lymphocytes | | K/uL | LABORATORY | | + + + + + + | Absolute | 1.12 (H) | 0.00 - 0.80 | [facility] | | | Monocytes | | K/uL | LABORATORY | | + + + + + + | Eosinophils | 0.38 | 0.00 - 0.50 | [facility] | | | , Absolute | | K/uL | LABORATORY | | + + + + + + | Basophils, | 0.06Comment: Testing | 0.00 - 0.10 | [facility] | | | Absolute | performed at [facility], [address] | K/uL | LABORATORY | | | | [facility], | | | | | | [place] [address] | | | | + + + + + + + + | Specimen | + + | Blood | + + + + + + + | Performing | Address | City/State/Zipcode | Phone Number | | Organization | | | | + + + + + | [facility] | [address] | [place] [address] | [phone] | + + + + + Basic Metabolic Panel (02/22/2019 4:02 AM PDT) + + + + + + | Component | Value | Ref Range | Performed | Pathologist | | | | | At | Signature | + + + + + + | Na | 140 | 135 - 145 | [facility] | | | | | mmol/L | LABORATORY | | + + + + + + | K | 3.9 | 3.5 - 4.9 | [facility] | | | | | mmol/L | LABORATORY | | + + + + + + | Cl | 109 | 99 - 109 mmol/L | [facility] | | | | | | LABORATORY | | + + + + + + | CO2 | 23 | 23 - 32 mmol/L | [facility] | | | | | | LABORATORY | | + + + + + + | Anion Gap | 12 | 5 - 20 mmol/L | [facility] | | | | | | LABORATORY | | + + + + + + | Glucose | 87 | 65 - 99 mg/dL | [facility] | | | | | | LABORATORY | | + + + + + + | BUN | 30 (H) | 8 - 25 mg/dL | [facility] | | | | | | LABORATORY | | + + + + + + | Creatinine | 1.3 | 0.70 - 1.30 | [facility] | | | | | mg/dL | LABORATORY | | + + + + + + | BUN/Creatin | 23 | | [facility] | | | ine Ratio | | | LABORATORY | | + + + + + + | Calcium | 8.5 | 8.5 - 10.5 | [facility] | | | | | mg/dL | LABORATORY | | + + + + + + | Estimated | 58 (L)Comment: GFR <60: | >60 | [facility] | | | GFR | CHRONIC KIDNEY DISEASE, | mL/min/1.73m2 | LABORATORY | | | | IF FOUND OVER A 3 MONTH | | | | | | PERIOD.GFR <15: KIDNEY | | | | | | FAILURE.FOR | | | | | | AMERICANS, MULTIPLY THE | | | | | | CALCULATED GFR BY | | | | | | 1.210.This eGFR is | | | | | | calculated using the | | | | | | MDRD IDHI traceable | | | | | | equation.Testing | | | | | | performed at [facility], [address] | | | | | | [facility], | | | | | | [place] [address] | | | | + + + + + + + + | Specimen | + + | Blood | + + + + + + + | Performing | Address | City/State/Zipcode | Phone Number | | Organization | | | | + + + + + | [facility] | [address] | [place] [address] | [phone] | + + + + + POC Glucose (02/21/2019 8:48 PM PDT) + + + + + + | Component | Value | Ref Range | Performed | Pathologist | | | | | At | Signature | + + + + + + | Glucose, | 160 (H)Comment: Testing | 65 - 99 mg/dL | [facility] | | | POC | performed at [facility];[address] | | LABORATORY | | | | [address];[place] | | | | | | [address] | | | | + + + + + + + + | Specimen | + + | | + + + + + + + | Performing | Address | City/State/Zipcode | Phone Number | | Organization | | | | + + + + + | [facility] | [address] | [place] [address] | [phone] | + + + + + POC Glucose (02/21/2019 6:01 PM PDT) + + + + + + | Component | Value | Ref Range | Performed | Pathologist | | | | | At | Signature | + + + + + + | Glucose, | 212 (H)Comment: Testing | 65 - 99 mg/dL | [facility] | | | POC | performed at [facility];[address] | | LABORATORY | | | | [address];[place], [place] | | | | | | [address] | | | | + + + + + + + + | Specimen | + + | | + + + + + + + | Performing | Address | City/State/Zipcode | Phone Number | | Organization | | | | + + + + + | [facility] | [address] | [place] [address] | [phone] | + + + + + Protime INR (02/21/2019 3:01 PM PDT) + + + + + + | Component | Value | Ref Range | Performed | Pathologist | | | | | At | Signature | + + + + + + | INR | 1.1Comment: REFERENCE | | [facility] | | | | RANGE:0.9 - 1.2 | | LABORATORY | | | | NON-ANTICOAGULATED2.0 | | | | | | - 3.0 ALL OTHER | | | | | | THERAPEUTIC | | | | | | INDICATIONS2.5 - 3.5 | | | | | | MECHANICAL HEART VALVES, | | | | | | RECURRENT OR SYSTEMIC | | | | | | EMBOLISMTesting | | | | | | performed at [facility] | | | | | | [address];[place], [place] | | | | | | [address] | | | | + + + + + + + + | Specimen | + + | Blood | + + + + + + + | Performing | Address | City/State/Zipcode | Phone Number | | Organization | | | | + + + + + | [facility] | [address] | [place] [address] | [phone] | + + + + + POC Glucose (02/21/2019 12:39 PM PDT) + + + + + + | Component | Value | Ref Range | Performed | Pathologist | | | | | At | Signature | + + + + + + | Glucose, | 93Comment: Testing | 65 - 99 mg/dL | [facility] | | | POC | performed at [facility];[address] | | LABORATORY | | | | [address];[place], [place] | | | | | | [address] | | | | + + + + + + + + | Specimen | + + | | + + + + + + + | Performing | Address | City/State/Zipcode | Phone Number | | Organization | | | | + + + + + | [facility] | [address] | [place] [address] | [phone] | + + + + + ECHO Complete w Contrast (02/21/2019 11:55 AM PDT) + +--------+ + + + | Component | Value | Ref Range | Performed | Pathologist | | | | | At | Signature | + +--------+ + + + | Patient | 204 | | [facility] | | | Weight | | | | | | (lbs) | | | | | + +--------+ + + + | Patient | 61 | | [facility] | | | Height | | | | | + +--------+ + + + | LVIDd | 5.39 | cm | [facility] | | + +--------+ + + + | FS | 30 | % | [facility] | | + +--------+ + + + | LA volume | 67.13 | mL | [facility] | | + +--------+ + + + | Ascending | 3.8 | cm | [facility] | | | aorta | | | | | + +--------+ + + + | AV mean | 1.26 | mmHg | [facility] | | | gradient | | | | | + +--------+ + + + | Aortic | 4.24 | cm2 | [facility] | | | Valve Area | | | | | | by | | | | | | Continuity | | | | | | VTI | | | | | + +--------+ + + + | MV mean | 1.5 | mmHg | [facility] | | | gradient | | | | | + +--------+ + + + | MV Area by | 6.85 | cm2 | [facility] | | | P 1/2 | | | | | | method | | | | | + +--------+ + + + | MV Area by | 2.29 | cm2 | [facility] | | | Continuity | | | | | | Equation | | | | | + +--------+ + + + | LVOT | 2.35 | cm | [facility] | | | diameter | | | | | + +--------+ + + + | LVOT peak | 66.34 | cm/s | [facility] | | | chelsea | | | | | + +--------+ + + + | LVOT peak | 11.26 | cm | [facility] | | | VTI | | | | | + +--------+ + + + | AV peak chelsea | 77.14 | cm/s | [facility] | | + +--------+ + + + | AV VTI | 11.52 | cm | [facility] | | + +--------+ + + + | AV peak | 2.38 | mmHg | [facility] | | | gradient | | | | | + +--------+ + + + | MV peak | 2.89 | mmHg | [facility] | | | gradient | | | | | + +--------+ + + + | MV Pressure | 32.11 | msec | [facility] | | | 1/2 time | | | | | + +--------+ + + + | LA Volume | 31 | mL/m2 | [facility] | | | Index | | | | | + +--------+ + + + | AV LVOT | 1.76 | mmHg | [facility] | | | Peak | | | | | | Gradient | | | | | + +--------+ + + + | AV LVOT | 1.04 | mmHg | [facility] | | | Mean | | | | | | Gradient | | | | | + +--------+ + + + | LV | 10.67 | cm | [facility] | | | Diastolic | | | | | | Length 4C | | | | | + +--------+ + + + | RV | 3.71 | cm | [facility] | | | Diastolic | | | | | | Basal | | | | | | Diameter | | | | | + +--------+ + + + | LV | 40 | % | [facility] | | | Cavazos's | | | | | | Biplane EF | | | | | + +--------+ + + + | LV ED | 209.27 | ml | [facility] | | | Volume | | | | | | (Cavazos's) | | | | | + +--------+ + + + | LV ED | 98 | ml/m2 | [facility] | | | Volume | | | | | | Index | | | | | + +--------+ + + + | LV ES | 125.26 | ml | [facility] | | | Volume | | | | | + +--------+ + + + | LVOT Mean | 49.3 | cm/s | [facility] | | | Velocity | | | | | + +--------+ + + + | MV | 139.62 | msec | [facility] | | | Deceleratio | | | | | | n Time | | | | | + +--------+ + + + | MV E/A | 0.82 | | [facility] | | | Ratio | | | | | + +--------+ + + + | MV Mean | 59.8 | cm/s | [facility] | | | Velocity | | | | | + +--------+ + + + | MV Peak | 71.39 | cm/s | [facility] | | | A-Wave | | | | | + +--------+ + + + | MV Peak | 58.56 | cm/s | [facility] | | | E-Wave | | | | | + +--------+ + + + | AV Mean | 53.71 | cm/s | [facility] | | | Velocity | | | | | + +--------+ + + + | LA Area | 21.05 | cm2 | [facility] | | + +--------+ + + + | LA Major | 0.1152 | cm | [facility] | | + +--------+ + + + | LV ES | 59 | ml/m2 | [facility] | | | Volume | | | | | | Index | | | | | + +--------+ + + + | Cardiac | 4.34 | l/min | [facility] | | | Output | | | | | + +--------+ + + + | Cardiac | 2.03 | l/min/m2 | [facility] | | | Index | | | | | + +--------+ + + + | Heart Rate | 89 | | [facility] | | + +--------+ + + + | IVS | 1.34 | cm | [facility] | | | Diastolic | | | | | | Thickness | | | | | | MM | | | | | + +--------+ + + + | LVPW | 1.24 | cm | [facility] | | | Diastolic | | | | | | Thickness | | | | | | MM | | | | | + +--------+ + + + | IVS | 1.79 | cm | [facility] | | | Systolic | | | | | | Thickness | | | | | | MM | | | | | + +--------+ + + + | LV Systolic | 3.8 | cm | [facility] | | | Diameter | | | | | | MM | | | | | + +--------+ + + + | LVPW | 1.39 | cm | [facility] | | | Systolic | | | | | | Thickness | | | | | | MM | | | | | + +--------+ + + + | TAPSE | 2 | cm | [facility] | | + +--------+ + + + | LVEF-TTE | 30 | % | [facility] | | | TRANSTHORAC | | | | | | IC ECHO | | | | | + +--------+ + + + + + | Specimen | + + | | + + + + + | Narrative | Performed At | + + + | 1. Severely | [facility] | | reduced left ventricular systolic function. Estimated left | | | ventricular ejection fraction is 30%2. Akinetic left ventricular | | | apex with large apical thrombus3. Mildly dilated right ventricle | | | with normal systolic function4. Mild mitral regurgitation5. Mild | | | tricuspid regurgitation6. Trivial pericardial effusion | | |6. Trivial pericardial effusion | | + + + + +---------+ + + | Performing | Address | City/State/Zipcode | Phone Number | | Organization | | | | + +---------+ + + | [facility] | | | | + +---------+ + + POC Glucose (02/21/2019 10:10 AM PDT) + + + + + + | Component | Value | Ref Range | Performed | Pathologist | | | | | At | Signature | + + + + + + | Glucose, | 207 (H)Comment: Testing | 65 - 99 mg/dL | [facility] | | | POC | performed at [facility];[address] | | LABORATORY | | | | [address];[place] | | | | | | [address] | | | | + + + + + + + + | Specimen | + + | | + + + + + + + | Performing | Address | City/State/Zipcode | Phone Number | | Organization | | | | + + + + + | [facility] | [address] | [place] [address] | [phone] | + + + + + POC Glucose (02/21/2019 8:10 AM PDT) + + + + + + | Component | Value | Ref Range | Performed | Pathologist | | | | | At | Signature | + + + + + + | Glucose, | 205 (H)Comment: Testing | 65 - 99 mg/dL | [facility] | | | POC | performed at [facility];[address] | | LABORATORY | | | | [address];[place] | | | | | | [address] | | | | + + + + + + + + | Specimen | + + | | + + + + + + + | Performing | Address | City/State/Zipcode | Phone Number | | Organization | | | | + + + + + | [facility] | [address] | [place] [address] | [phone] | + + + + + Magnesium (02/21/2019 5:46 AM PDT) + + + + + + | Component | Value | Ref Range | Performed | Pathologist | | | | | At | Signature | + + + + + + | Magnesium | 2.0Comment: Testing | 1.7 - 2.4 mg/dL | [facility] | | | | performed at [facility], [address] | | LABORATORY | | | | [place], | | | | | | [place] [address] | | | | + + + + + + + + | Specimen | + + | Blood | + + + + + + + | Performing | Address | City/State/Zipcode | Phone Number | | Organization | | | | + + + + + | [facility] | [address] | [place] [address] | [phone] | + + + + + Basic Metabolic Panel (02/21/2019 5:46 AM PDT) + + + + + + | Component | Value | Ref Range | Performed | Pathologist | | | | | At | Signature | + + + + + + | Na | 141 | 135 - 145 | [facility] | | | | | mmol/L | LABORATORY | | + + + + + + | K | 4.1 | 3.5 - 4.9 | [facility] | | | | | mmol/L | LABORATORY | | + + + + + + | Cl | 108 | 99 - 109 mmol/L | [facility] | | | | | | LABORATORY | | + + + + + + | CO2 | 26 | 23 - 32 mmol/L | [facility] | | | | | | LABORATORY | | + + + + + + | Anion Gap | 11 | 5 - 20 mmol/L | [facility] | | | | | | LABORATORY | | + + + + + + | Glucose | 146 (H) | 65 - 99 mg/dL | [facility] | | | | | | LABORATORY | | + + + + + + | BUN | 37 (H) | 8 - 25 mg/dL | [facility] | | | | | | LABORATORY | | + + + + + + | Creatinine | 1.4 (H) | 0.70 - 1.30 | [facility] | | | | | mg/dL | LABORATORY | | + + + + + + | BUN/Creatin | 26 | | [facility] | | | ine Ratio | | | LABORATORY | | + + + + + + | Calcium | 8.3 (L) | 8.5 - 10.5 | [facility] | | | | | mg/dL | LABORATORY | | + + + + + + | Estimated | 53 (L)Comment: GFR <60: | >60 | [facility] | | | GFR | CHRONIC KIDNEY DISEASE, | mL/min/1.73m2 | LABORATORY | | | | IF FOUND OVER A 3 MONTH | | | | | | PERIOD.GFR <15: KIDNEY | | | | | | FAILURE.FOR | | | | | | AMERICANS, MULTIPLY THE | | | | | | CALCULATED GFR BY | | | | | | 1.210.This eGFR is | | | | | | calculated using the | | | | | | MDRD IDMS traceable | | | | | | equation.Testing | | | | | | performed at [facility], [address] | | | | | | [facility], | | | | | | [place] [address] | | | | + + + + + + + + | Specimen | + + | Blood | + + + + + + + | Performing | Address | City/State/Zipcode | Phone Number | | Organization | | | | + + + + + | [facility] | [address] | [place] [address] | [phone] | + + + + + CBC with Differential (02/21/2019 5:35 AM PDT) + + + + + + | Component | Value | Ref Range | Performed | Pathologist | | | | | At | Signature | + + + + + + | WBC | 8.93 | 3.80 - 11.00 | [facility] | | | | | K/uL | LABORATORY | | + + + + + + | RBC | 3.53 (L) | 4.20 - 5.70 | [facility] | | | | | M/uL | LABORATORY | | + + + + + + | Hemoglobin | 11.1 (L) | 13.2 - 17.0 | [facility] | | | | | g/dL | LABORATORY | | + + + + + + | Hematocrit | 32.7 (L) | 39.0 - 50.0 % | [facility] | | | | | | LABORATORY | | + + + + + + | MCV | 92.6 | 80.0 - 100.0 fl | [facility] | | | | | | LABORATORY | | + + + + + + | MCH | 31.5 | 27.0 - 34.0 pg | [facility] | | | | | | LABORATORY | | + + + + + + | MCHC | 34.0 | 32.0 - 35.5 | [facility] | | | | | g/dL | LABORATORY | | + + + + + + | RDW-SD | 44.6 | 37 - 53 fl | [facility] | | | | | | LABORATORY | | + + + + + + | Platelet | 329 | 150 - 400 K/uL | [facility] | | | Count | | | LABORATORY | | + + + + + + | MPV | 7.9 | fl | [facility] | | | | | | LABORATORY | | + + + + + + | Diff Type | AUTOMATED | | [facility] | | | | | | LABORATORY | | + + + + + + | % | 72.46 | % | [facility] | | | Neutrophils | | | LABORATORY | | + + + + + + | % | 11.25 | % | [facility] | | | Lymphocytes | | | LABORATORY | | + + + + + + | Monocyte % | 12.59 | % | [facility] | | | | | | LABORATORY | | + + + + + + | Eosinophils | 3.02 | % | [facility] | | | % | | | LABORATORY | | + + + + + + | Basophils % | 0.68 | % | [facility] | | | | | | LABORATORY | | + + + + + + | Neutrophils | 6.47 | 1.90 - 7.40 | [facility] | | | , Absolute | | K/uL | LABORATORY | | + + + + + + | Absolute | 1.01 | 1.00 - 3.90 | [facility] | | | Lymphocytes | | K/uL | LABORATORY | | + + + + + + | Absolute | 1.13 (H) | 0.00 - 0.80 | [facility] | | | Monocytes | | K/uL | LABORATORY | | + + + + + + | Eosinophils | 0.27 | 0.00 - 0.50 | [facility] | | | , Absolute | | K/uL | LABORATORY | | + + + + + + | Basophils, | 0.06Comment: Testing | 0.00 - 0.10 | [facility] | | | Absolute | performed at [facility], [address] | K/u[address] | LABORATORY | | | | [address], | | | | | | [place] [address] | | | | + + + + + + + + | Specimen | + + | Blood | + + + + + + + | Performing | Address | City/State/Zipcode | Phone Number | | Organization | | | | + + + + + | [facility] | [address] | [place] [address] | [phone] | + + + + + POC Glucose (02/20/2019 9:21 PM PDT) + + + + + + | Component | Value | Ref Range | Performed | Pathologist | | | | | At | Signature | + + + + + + | Glucose, | 176 (H)Comment: Testing | 65 - 99 mg/dL | [facility] | | | POC | performed at [facility];[address] | | LABORATORY | | | | [address];[place] | | | | | | [address] | | | | + + + + + + + + | Specimen | + + | | + + + + + + + | Performing | Address | City/State/Zipcode | Phone Number | | Organization | | | | + + + + + | [facility] | [address] | [place] [address] | [phone] | + + + + + POC Glucose (02/20/2019 6:24 PM PDT) + + + + + + | Component | Value | Ref Range | Performed | Pathologist | | | | | At | Signature | + + + + + + | Glucose, | 178 (H)Comment: Testing | 65 - 99 mg/dL | [place] | | | POC | performed at [facility];[address] | | LABORATORY | | | | [address];[place] | | | | | | [address] | | | | + + + + + + + + | Specimen | + + | | + + + + + + + | Performing | Address | City/State/Zipcode | Phone Number | | Organization | | | | + + + + + | [facility] | [address] | [place] [address] | [phone] | + + + + + POC Glucose (02/20/2019 5:30 PM PDT) + + + + + + | Component | Value | Ref Range | Performed | Pathologist | | | | | At | Signature | + + + + + + | Glucose, | 191 (H)Comment: Testing | 65 - 99 mg/dL | [facility] | | | POC | performed at [facility];[address] | | LABORATORY | | | | [address];[place], [place] | | | | | | [address] | | | | + + + + + + + + | Specimen | + + | | + + + + + + + | Performing | Address | City/State/Zipcode | Phone Number | | Organization | | | | + + + + + | [facility] | [address] [facility] | [place] [address] | [phone] | + + + + + POC Glucose (02/20/2019 11:51 AM PDT) + + + + + + | Component | Value | Ref Range | Performed | Pathologist | | | | | At | Signature | + + + + + + | Glucose, | 148 (H)Comment: Testing | 65 - 99 mg/dL | [facility] | | | POC | performed at [facility];[address] | | LABORATORY | | | | [address];[place], [place] | | | | | | [address] | | | | + + + + + + + + | Specimen | + + | | + + + + + + + | Performing | Address | City/State/Zipcode | Phone Number | | Organization | | | | + + + + + | [facility] | [address] | [place] [address] | [phone] | + + + + + POC Glucose (02/20/2019 8:38 AM PDT) + + + + + + | Component | Value | Ref Range | Performed | Pathologist | | | | | At | Signature | + + + + + + | Glucose, | 165 (H)Comment: Testing | 65 - 99 mg/dL | [facility] | | | POC | performed at [facility];[address] | | LABORATORY | | | | [address];[place] | | | | | | [address] | | | | + + + + + + + + | Specimen | + + | | + + + + + + + | Performing | Address | City/State/Zipcode | Phone Number | | Organization | | | | + + + + + | [facility] | [address] | [place] [address] | [phone] | + + + + + XR Chest 2 Vws (02/20/2019 8:22 AM PDT) + + | Specimen | + + | | + + + + + | Impressions | Performed At | + + + | *Cardiomegaly with pulmonary venous congestion. Low lung volumes | [facility] | | with bilateral parahilar and bibasilar atelectasis. Small bilateral | | | pleural effusions. *Interval removal of right and left thoracostomy | | | tubes. Signed by: Radha Mensah, [facility] [facility] | | | Date/Time: 02/20/2019 9:02 AM | | + + + + + + | Narrative | Performed At | + + + | CHEST TWO VIEWS CLINICAL INFORMATION: Post Pleural tube | [facility] | | removal. COMPARISON: XR CHEST AP PORTABLE (02/19/2019); XR CHEST | | | AP PORTABLE (02/18/2019); XR CHEST AP PORTABLE (02/17/2019); XR CHEST | | | AP PORTABLE (02/16/2019); XR CHEST AP PORTABLE (02/15/2019); | | | FINDINGS: Cardiomegaly. Status post median sternotomy and CABG. | | | Pulmonary venous congestion. Low lung volumes. Bilateral | | | parahilar and bibasilar opacities. Blunting of both costophrenic | | | sulci. No pneumothorax. Interval removal of right and left | | | thoracostomy tubes. Median sternotomy wires are intact and aligned. | | | Osteopenia. Mild thoracic spondylosis. | | + + + + + | Procedure Note | + + | Ej, Rad Results In - 02/20/2019 9:05 AM PDT | | CHEST TWO VIEWS | | | | CLINICAL INFORMATION: | | Post Pleural tube removal. | | | | COMPARISON: | | XR CHEST AP PORTABLE (02/19/2019); XR CHEST AP PORTABLE (02/18/2019); | | XR CHEST AP PORTABLE (02/17/2019); XR CHEST AP PORTABLE (02/16/2019); | | XR CHEST AP PORTABLE (02/15/2019); | | | | FINDINGS: | | Cardiomegaly. Status post median sternotomy and CABG. Pulmonary | | venous congestion. Low lung volumes. Bilateral parahilar and | | bibasilar opacities. Blunting of both costophrenic sulci. No | | pneumothorax. Interval removal of right and left thoracostomy tubes. | | Median sternotomy wires are intact and aligned. Osteopenia. Mild | | thoracic spondylosis. | | | | IMPRESSION: | | *Cardiomegaly with pulmonary venous congestion. Low lung volumes with | | bilateral parahilar and bibasilar atelectasis. Small bilateral pleural | | effusions. | | *Interval removal of right and left thoracostomy tubes. | | | | | | | | | | Signed by: Radha Mensah, Kena | | Sign Date/Time: 02/20/2019 9:02 AM | + + + +---------+ + + | Performing | Address | City/State/Zipcode | Phone Number | | Organization | | | | + +---------+ + + | [facility] | | | | + +---------+ + + Magnesium (02/20/2019 4:03 AM PDT) + + + + + + | Component | Value | Ref Range | Performed | Pathologist | | | | | At | Signature | + + + + + + | Magnesium | 2.2Comment: Testing | 1.7 - 2.4 mg/dL | [facility] | | | | performed at [facility], [address] | | LABORATORY | | | | [address], | | | | | | [place] [address] | | | | + + + + + + + + | Specimen | + + | Blood | + + + + + + + | Performing | Address | City/State/Zipcode | Phone Number | | Organization | | | | + + + + + | [facility] | [address] | [place] [address] | [phone] | + + + + + CBC with Differential (02/20/2019 4:03 AM PDT) + + + + + + | Component | Value | Ref Range | Performed | Pathologist | | | | | At | Signature | + + + + + + | WBC | 9.11 | 3.80 - 11.00 | [facility] | | | | | K/uL | LABORATORY | | + + + + + + | RBC | 3.49 (L) | 4.20 - 5.70 | [facility] | | | | | M/uL | LABORATORY | | + + + + + + | Hemoglobin | 11.0 (L) | 13.2 - 17.0 | [facility] | | | | | g/dL | LABORATORY | | + + + + + + | Hematocrit | 32.6 (L) | 39.0 - 50.0 % | [facility] | | | | | | LABORATORY | | + + + + + + | MCV | 93.4 | 80.0 - 100.0 fl | [facility] | | | | | | LABORATORY | | + + + + + + | MCH | 31.6 | 27.0 - 34.0 pg | [facility] | | | | | | LABORATORY | | + + + + + + | MCHC | 33.8 | 32.0 - 35.5 | [facility] | | | | | g/dL | LABORATORY | | + + + + + + | RDW-SD | 45.5 | 37 - 53 fl | [facility] | | | | | | LABORATORY | | + + + + + + | Platelet | 268 | 150 - 400 K/uL | [facility] | | | Count | | | LABORATORY | | + + + + + + | MPV | 8.1 | fl | [facility] | | | | | | LABORATORY | | + + + + + + | Diff Type | AUTOMATED | | [facility] | | | | | | LABORATORY | | + + + + + + | % | 73.93 | % | [facility] | | | Neutrophils | | | LABORATORY | | + + + + + + | % | 10.91 | % | [facility] | | | Lymphocytes | | | LABORATORY | | + + + + + + | Monocyte % | 11.07 | % | [facility] | | | | | | LABORATORY | | + + + + + + | Eosinophils | 3.46 | % | [facility] | | | % | | | LABORATORY | | + + + + + + | Basophils % | 0.63 | % | [facility] | | | | | | LABORATORY | | + + + + + + | Neutrophils | 6.74 | 1.90 - 7.40 | [facility] | | | , Absolute | | K/uL | LABORATORY | | + + + + + + | Absolute | 0.99 (L) | 1.00 - 3.90 | [facility] | | | Lymphocytes | | K/uL | LABORATORY | | + + + + + + | Absolute | 1.01 (H) | 0.00 - 0.80 | [facility] | | | Monocytes | | K/uL | LABORATORY | | + + + + + + | Eosinophils | 0.32 | 0.00 - 0.50 | [facility] | | | , Absolute | | K/uL | LABORATORY | | + + + + + + | Basophils, | 0.06Comment: Testing | 0.00 - 0.10 | [facility] | | | Absolute | performed at [facility], [address] | K/uL | LABORATORY | | | | [address], | | | | | | [place] [address] | | | | + + + + + + + + | Specimen | + + | Blood | + + + + + + + | Performing | Address | City/State/Zipcode | Phone Number | | Organization | | | | + + + + + | [facility] | [address] | [place] [address] | [phone] | + + + + + Basic Metabolic Panel (02/20/2019 4:03 AM PDT) + + + + + + | Component | Value | Ref Range | Performed | Pathologist | | | | | At | Signature | + + + + + + | Na | 141 | 135 - 145 | [facility] | | | | | mmol/L | LABORATORY | | + + + + + + | K | 4.1 | 3.5 - 4.9 | [facility] | | | | | mmol/L | LABORATORY | | + + + + + + | Cl | 107 | 99 - 109 mmol/L | [facility] | | | | | | LABORATORY | | + + + + + + | CO2 | 26 | 23 - 32 mmol/L | [facility] | | | | | | LABORATORY | | + + + + + + | Anion Gap | 12 | 5 - 20 mmol/L | [facility] | | | | | | LABORATORY | | + + + + + + | Glucose | 134 (H) | 65 - 99 mg/dL | [facility] | | | | | | LABORATORY | | + + + + + + | BUN | 47 (H) | 8 - 25 mg/dL | [facility] | | | | | | LABORATORY | | + + + + + + | Creatinine | 1.7 (H) | 0.70 - 1.30 | [facility] | | | | | mg/dL | LABORATORY | | + + + + + + | BUN/Creatin | 28 | | [facility] | | | ine Ratio | | | LABORATORY | | + + + + + + | Calcium | 8.3 (L) | 8.5 - 10.5 | [facility] | | | | | mg/dL | LABORATORY | | + + + + + + | Estimated | 43 (L)Comment: GFR <60: | >60 | [facility] | | | GFR | CHRONIC KIDNEY DISEASE, | mL/min/1.73m2 | LABORATORY | | | | IF FOUND OVER A 3 MONTH | | | | | | PERIOD.GFR <15: KIDNEY | | | | | | FAILURE.FOR | | | | | | AMERICANS, MULTIPLY THE | | | | | | CALCULATED GFR BY | | | | | | 1.210.This eGFR is | | | | | | calculated using the | | | | | | MDRD [facility] traceable | | | | | | equation.Testing | | | | | | performed at [facility], [address] | | | | | | [address] [facility], | | | | | | [place] [address] | | | | + + + + + + + + | Specimen | + + | Blood | + + + + + + + | Performing | Address | City/State/Zipcode | Phone Number | | Organization | | | | + + + + + | [facility] | [address] | [place] [address] | [phone] | + + + + + POC Glucose (02/19/2019 9:27 PM PDT) + + + + + + | Component | Value | Ref Range | Performed | Pathologist | | | | | At | Signature | + + + + + + | Glucose, | 141 (H)Comment: Testing | 65 - 99 mg/dL | [facility] | | | POC | performed at [facility];[address] | | LABORATORY | | | | [address];[place] | | | | | | [address] | | | | + + + + + + + + | Specimen | + + | | + + + + + + + | Performing | Address | City/State/Zipcode | Phone Number | | Organization | | | | + + + + + | [facility] | [address] | [place] [address] | [phone] | + + + + + POC Glucose (02/19/2019 5:24 PM PDT) + + + + + + | Component | Value | Ref Range | Performed | Pathologist | | | | | At | Signature | + + + + + + | Glucose, | 146 (H)Comment: Testing | 65 - 99 mg/dL | [facility] | | | POC | performed at [facility];[address] | | LABORATORY | | | | [address];[place] | | | | | | [address] | | | | + + + + + + + + | Specimen | + + | | + + + + + + + | Performing | Address | City/State/Zipcode | Phone Number | | Organization | | | | + + + + + | [facility] | [address] | [place] [address] | [phone] | + + + + + POC Glucose (02/19/2019 11:34 AM PDT) + + + + + + | Component | Value | Ref Range | Performed | Pathologist | | | | | At | Signature | + + + + + + | Glucose, | 135 (H)Comment: Testing | 65 - 99 mg/dL | [facility] | | | POC | performed at [facility];[address] | | LABORATORY | | | | [address];[place], [place] | | | | | | [address] | | | | + + + + + + + + | Specimen | + + | | + + + + + + + | Performing | Address | City/State/Zipcode | Phone Number | | Organization | | | | + + + + + | [facility] | [address] | [place] [address] | [phone] | + + + + + POC Glucose (02/19/2019 8:29 AM PDT) + + + + + + | Component | Value | Ref Range | Performed | Pathologist | | | | | At | Signature | + + + + + + | Glucose, | 168 (H)Comment: Testing | 65 - 99 mg/dL | [facility] | | | POC | performed at [facility];[address] | | LABORATORY | | | | [address];[place], [place] | | | | | | [address] | | | | + + + + + + + + | Specimen | + + | | + + + + + + + | Performing | Address | City/State/Zipcode | Phone Number | | Organization | | | | + + + + + | [facility] | [address] | [place] [address] | [phone] | + + + + + XR Chest AP Portable (02/19/2019 4:54 AM PDT) + + | Specimen | + + | | + + + + + | Narrative | Performed At | + + + | CHEST PORTABLE ONE VIEW CLINICAL INFORMATION: Status post | [facility] | | cardiac surgery. COMPARISON: XR CHEST AP PORTABLE (02/18/2019); | | | XR CHEST AP PORTABLE (02/17/2019); XR CHEST AP PORTABLE (02/16/2019); | | | XR CHEST AP PORTABLE (02/15/2019); XR CHEST PA AND LATERAL | | | (02/14/2019); XR CHEST 2 VIEWS (02/12/2019); XR CHEST 2 VIEW | | | (09/11/2017); XR CHEST 1 VIEW (09/10/2017); FINDINGS/IMPRESSION: 1. | | | Stable left and right chest tubes. Mediastinal drain removed. 2. | | | Hypoventilatory changes. Mild bibasilar atelectasis. No large | | | pleural effusion. 3. Cardiomediastinal contours are stable. 4. No | | | pneumothorax. Signed by: Radha Brasher, Marv Sign | | | Date/Time: 02/19/2019 6:32 AM | | + + + + + | Procedure Note | + + | Ej, Rad Results In - 02/19/2019 6:36 AM PDT | | CHEST PORTABLE ONE VIEW | | | | CLINICAL INFORMATION: | | Status post cardiac surgery. | | | | COMPARISON: | | XR CHEST AP PORTABLE (02/18/2019); XR CHEST AP PORTABLE (02/17/2019); | | XR CHEST AP PORTABLE (02/16/2019); XR CHEST AP PORTABLE (02/15/2019); | | XR CHEST PA AND LATERAL (02/14/2019); XR CHEST 2 VIEWS (02/12/2019); XR | | CHEST 2 VIEW (09/11/2017); XR CHEST 1 VIEW (09/10/2017); | | | | FINDINGS/IMPRESSION: | | 1. Stable left and right chest tubes. Mediastinal drain removed. | | 2. Hypoventilatory changes. Mild bibasilar atelectasis. No large | | pleural effusion. | | 3. Cardiomediastinal contours are stable. | | 4. No pneumothorax. | | | | | | | | Signed by: Radha Brasher Zachary | | Sign Date/Time: 02/19/2019 6:32 AM | + + + +---------+ + + | Performing | Address | City/State/Zipcode | Phone Number | | Organization | | | | + +---------+ + + | [facility] | | | | + +---------+ + + Magnesium (02/19/2019 4:12 AM PDT) + + + + + + | Component | Value | Ref Range | Performed | Pathologist | | | | | At | Signature | + + + + + + | Magnesium | 2.6 (H)Comment: Testing | 1.7 - 2.4 mg/dL | [facility] | | | | performed at [facility], [address] | | LABORATORY | | | | [address], | | | | | | [place] [address] | | | | + + + + + + + + | Specimen | + + | Blood | + + + + + + + | Performing | Address | City/State/Zipcode | Phone Number | | Organization | | | | + + + + + | [facility] | [address] | [place] [address] | [phone] | + + + + + CBC with Differential (02/19/2019 4:12 AM PDT) + + + + + + | Component | Value | Ref Range | Performed | Pathologist | | | | | At | Signature | + + + + + + | WBC | 11.44 (H) | 3.80 - 11.00 | [facility] | | | | | K/uL | LABORATORY | | + + + + + + | RBC | 3.24 (L) | 4.20 - 5.70 | [facility] | | | | | M/uL | LABORATORY | | + + + + + + | Hemoglobin | 10.3 (L) | 13.2 - 17.0 | [facility] | | | | | g/dL | LABORATORY | | + + + + + + | Hematocrit | 29.9 (L) | 39.0 - 50.0 % | [facility] | | | | | | LABORATORY | | + + + + + + | MCV | 92.3 | 80.0 - 100.0 fl | [facility] | | | | | | LABORATORY | | + + + + + + | MCH | 31.6 | 27.0 - 34.0 pg | [facility] | | | | | | LABORATORY | | + + + + + + | MCHC | 34.3 | 32.0 - 35.5 | [facility] | | | | | g/dL | LABORATORY | | + + + + + + | RDW-SD | 45.5 | 37 - 53 fl | [facility] | | | | | | LABORATORY | | + + + + + + | Platelet | 182 | 150 - 400 K/uL | [facility] | | | Count | | | LABORATORY | | + + + + + + | MPV | 8.7 | fl | [facility] | | | | | | LABORATORY | | + + + + + + | Diff Type | AUTOMATED | | [facility] | | | | | | LABORATORY | | + + + + + + | % | 80.60 | % | [facility] | | | Neutrophils | | | LABORATORY | | + + + + + + | % | 7.72 | % | [facility] | | | Lymphocytes | | | LABORATORY | | + + + + + + | Monocyte % | 8.13 | % | [facility] | | | | | | LABORATORY | | + + + + + + | Eosinophils | 3.24 | % | [facility] | | | % | | | LABORATORY | | + + + + + + | Basophils % | 0.31 | % | [facility] | | | | | | LABORATORY | | + + + + + + | Neutrophils | 9.22 (H) | 1.90 - 7.40 | [facility] | | | , Absolute | | K/uL | LABORATORY | | + + + + + + | Absolute | 0.88 (L) | 1.00 - 3.90 | [facility] | | | Lymphocytes | | K/uL | LABORATORY | | + + + + + + | Absolute | 0.93 (H) | 0.00 - 0.80 | [facility] | | | Monocytes | | K/uL | LABORATORY | | + + + + + + | Eosinophils | 0.37 | 0.00 - 0.50 | [facility] | | | , Absolute | | K/uL | LABORATORY | | + + + + + + | Basophils, | 0.04Comment: Testing | 0.00 - 0.10 | [facility] | | | Absolute | performed at [facility], [address] | K/uL | LABORATORY | | | | [address], | | | | | | [place] [address] | | | | + + + + + + + + | Specimen | + + | Blood | + + + + + + + | Performing | Address | City/State/Zipcode | Phone Number | | Organization | | | | + + + + + | [facility] | [address] | [place] [address] | [phone] | + + + + + Basic Metabolic Panel (02/19/2019 4:12 AM PDT) + + + + + + | Component | Value | Ref Range | Performed | Pathologist | | | | | At | Signature | + + + + + + | Na | 140 | 135 - 145 | [facility] | | | | | mmol/L | LABORATORY | | + + + + + + | K | 4.4 | 3.5 - 4.9 | [facility] | | | | | mmol/L | LABORATORY | | + + + + + + | Cl | 108 | 99 - 109 mmol/L | [facility] | | | | | | LABORATORY | | + + + + + + | CO2 | 23 | 23 - 32 mmol/L | [facility] | | | | | | LABORATORY | | + + + + + + | Anion Gap | 13 | 5 - 20 mmol/L | [facility] | | | | | | LABORATORY | | + + + + + + | Glucose | 101 (H) | 65 - 99 mg/dL | [facility] | | | | | | LABORATORY | | + + + + + + | BUN | 55 (H) | 8 - 25 mg/dL | [facility] | | | | | | LABORATORY | | + + + + + + | Creatinine | 2.0 (H) | 0.70 - 1.30 | [facility] | | | | | mg/dL | LABORATORY | | + + + + + + | BUN/Creatin | 28 | | [facility] | | | ine Ratio | | | LABORATORY | | + + + + + + | Calcium | 8.1 (L) | 8.5 - 10.5 | [facility] | | | | | mg/dL | LABORATORY | | + + + + + + | Estimated | 35 (L)Comment: GFR <60: | >60 | [facility] | | | GFR | CHRONIC KIDNEY DISEASE, | mL/min/1.73m2 | LABORATORY | | | | IF FOUND OVER A 3 MONTH | | | | | | PERIOD.GFR <15: KIDNEY | | | | | | FAILURE.FOR | | | | | | AMERICANS, MULTIPLY THE | | | | | | CALCULATED GFR BY | | | | | | 1.210.This eGFR is | | | | | | calculated using the | | | | | | MDRD [facility] traceable | | | | | | equation.Testing | | | | | | performed at [facility], [address] | | | | | | [facility], | | | | | | [place] [address] | | | | + + + + + + + + | Specimen | + + | Blood | + + + + + + + | Performing | Address | City/State/Zipcode | Phone Number | | Organization | | | | + + + + + | [facility] | [address] | [place] [address] | [phone] | + + + + + POC Glucose (02/18/2019 9:30 PM PDT) + + + + + + | Component | Value | Ref Range | Performed | Pathologist | | | | | At | Signature | + + + + + + | Glucose, | 107 (H)Comment: Testing | 65 - 99 mg/dL | [facility] | | | POC | performed at [facility];[address] | | LABORATORY | | | | [address];[place] | | | | | | [address] | | | | + + + + + + + + | Specimen | + + | | + + + + + + + | Performing | Address | City/State/Zipcode | Phone Number | | Organization | | | | + + + + + | [facility] | [address] | [place] [address] | [phone] | + + + + + POC Glucose (02/18/2019 4:56 PM PDT) + + + + + + | Component | Value | Ref Range | Performed | Pathologist | | | | | At | Signature | + + + + + + | Glucose, | 153 (H)Comment: Testing | 65 - 99 mg/dL | [facility] | | | POC | performed at [facility];[address] | | LABORATORY | | | | [address];[place] | | | | | | [address] | | | | + + + + + + + + | Specimen | + + | | + + + + + + + | Performing | Address | City/State/Zipcode | Phone Number | | Organization | | | | + + + + + | [facility] | [address] [facility] | [place] [address] | [phone] | + + + + + POC Glucose (02/18/2019 4:55 PM PDT) + + + + + + | Component | Value | Ref Range | Performed | Pathologist | | | | | At | Signature | + + + + + + | Glucose, | 154 (H)Comment: Testing | 65 - 99 mg/dL | [facility] | | | POC | performed at [facility];[address] | | LABORATORY | | | | [address];[place] | | | | | | [address] | | | | + + + + + + + + | Specimen | + + | | + + + + + + + | Performing | Address | City/State/Zipcode | Phone Number | | Organization | | | | + + + + + | [facility] | [address] | [place] [address] | [phone] | + + + + + POC Glucose (02/18/2019 8:37 AM PDT) + + + + + + | Component | Value | Ref Range | Performed | Pathologist | | | | | At | Signature | + + + + + + | Glucose, | 89Comment: Testing | 65 - 99 mg/dL | [facility] | | | POC | performed at [facility];[address] | | LABORATORY | | | | [address];[place] | | | | | | [address] | | | | + + + + + + + + | Specimen | + + | | + + + + + + + | Performing | Address | City/State/Zipcode | Phone Number | | Organization | | | | + + + + + | [facility] | [address] | [place] [address] | [phone] | + + + + + XR Chest AP Portable (02/18/2019 4:46 AM PDT) + + | Specimen | + + | | + + + + + | Narrative | Performed At | + + + | CHEST PORTABLE ONE VIEW CLINICAL INFORMATION: Status post | [facility] | | cardiac surgery. COMPARISON: XR CHEST AP PORTABLE (02/17/2019); | | | XR CHEST AP PORTABLE (02/16/2019); XR CHEST AP PORTABLE (02/15/2019); | | | FINDINGS/IMPRESSION: 1. Left chest tube and mediastinal drainage | | | catheter in place. Right IJ sheath has been removed. Stable | | | midline sternotomy 2. Lung volumes remain low with linear areas of | | | left basilar atelectasis, unchanged with mildly improved right medial | | | basilar atelectasis. 3. Cardiomediastinal contours are stable. 4. | | | No pneumothorax. Signed by: Radha Harper, Kathi Sign | | | Date/Time: 02/18/2019 6:55 AM | | + + + + + | Procedure Note | + + | Ej, Rad Results In - 02/18/2019 6:58 AM PDT | | CHEST PORTABLE ONE VIEW | | | | CLINICAL INFORMATION: | | Status post cardiac surgery. | | | | COMPARISON: | | XR CHEST AP PORTABLE (02/17/2019); XR CHEST AP PORTABLE (02/16/2019); | | XR CHEST AP PORTABLE (02/15/2019); | | | | FINDINGS/IMPRESSION: | | 1. Left chest tube and mediastinal drainage catheter in place. Right | | IJ sheath has been removed. Stable midline sternotomy | | 2. Lung volumes remain low with linear areas of left basilar | | atelectasis, unchanged with mildly improved right medial basilar | | atelectasis. | | 3. Cardiomediastinal contours are stable. | | 4. No pneumothorax. | | | | | | | | Signed by: Radha Harper Sadaf | | Sign Date/Time: 02/18/2019 6:55 AM | + + + +---------+ + + | Performing | Address | City/State/Zipcode | Phone Number | | Organization | | | | + +---------+ + + | [facility] | | | | + +---------+ + + Magnesium (02/18/2019 4:08 AM PDT) + + + + + + | Component | Value | Ref Range | Performed | Pathologist | | | | | At | Signature | + + + + + + | Magnesium | 3.0 (H)Comment: Testing | 1.7 - 2.4 mg/dL | [facility] | | | | performed at [facility], [address] | | LABORATORY | | | | [address], | | | | | | [place] [address] | | | | + + + + + + + + | Specimen | + + | Blood | + + + + + + + | Performing | Address | City/State/Zipcode | Phone Number | | Organization | | | | + + + + + | [facility] | [address] | [place] [address] | [phone] | + + + + + CBC with Differential (02/18/2019 4:08 AM PDT) + + + + + + | Component | Value | Ref Range | Performed | Pathologist | | | | | At | Signature | + + + + + + | WBC | 13.70 (H) | 3.80 - 11.00 | [facility] | | | | | K/uL | LABORATORY | | + + + + + + | RBC | 3.17 (L) | 4.20 - 5.70 | [facility] | | | | | M/uL | LABORATORY | | + + + + + + | Hemoglobin | 9.9 (L) | 13.2 - 17.0 | [facility] | | | | | g/dL | LABORATORY | | + + + + + + | Hematocrit | 29.8 (L) | 39.0 - 50.0 % | [facility] | | | | | | LABORATORY | | + + + + + + | MCV | 94.0 | 80.0 - 100.0 fl | [facility] | | | | | | LABORATORY | | + + + + + + | MCH | 31.3 | 27.0 - 34.0 pg | [facility] | | | | | | LABORATORY | | + + + + + + | MCHC | 33.3 | 32.0 - 35.5 | [facility] | | | | | g/dL | LABORATORY | | + + + + + + | RDW-SD | 45.5 | 37 - 53 fl | [facility] | | | | | | LABORATORY | | + + + + + + | Platelet | 139 (L) | 150 - 400 K/uL | [facility] | | | Count | | | LABORATORY | | + + + + + + | MPV | 9.0 | fl | [facility] | | | | | | LABORATORY | | + + + + + + | Diff Type | AUTOMATED | | [facility] | | | | | | LABORATORY | | + + + + + + | % | 83.81 | % | [facility] | | | Neutrophils | | | LABORATORY | | + + + + + + | % | 7.40 | % | [facility] | | | Lymphocytes | | | LABORATORY | | + + + + + + | Monocyte % | 7.02 | % | [facility] | | | | | | LABORATORY | | + + + + + + | Eosinophils | 1.55 | % | [facility] | | | % | | | LABORATORY | | + + + + + + | Basophils % | 0.22 | % | [facility] | | | | | | LABORATORY | | + + + + + + | Neutrophils | 11.48 (H) | 1.90 - 7.40 | [facility] | | | , Absolute | | K/uL | LABORATORY | | + + + + + + | Absolute | 1.01 | 1.00 - 3.90 | [facility] | | | Lymphocytes | | K/uL | LABORATORY | | + + + + + + | Absolute | 0.96 (H) | 0.00 - 0.80 | [facility] | | | Monocytes | | K/uL | LABORATORY | | + + + + + + | Eosinophils | 0.21 | 0.00 - 0.50 | [facility] | | | , Absolute | | K/uL | LABORATORY | | + + + + + + | Basophils, | 0.03Comment: Testing | 0.00 - 0.10 | [facility] | | | Absolute | performed at [facility], [address] | K/uL | LABORATORY | | | | [address], | | | | | | [place] [address] | | | | + + + + + + + + | Specimen | + + | Blood | + + + + + + + | Performing | Address | City/State/Zipcode | Phone Number | | Organization | | | | + + + + + | [facility] | [address] | [place] [address] | [phone] | + + + + + Basic Metabolic Panel (02/18/2019 4:08 AM PDT) + + + + + + | Component | Value | Ref Range | Performed | Pathologist | | | | | At | Signature | + + + + + + | Na | 139 | 135 - 145 | [facility] | | | | | mmol/L | LABORATORY | | + + + + + + | K | 5.2 (H) | 3.5 - 4.9 | [facility] | | | | | mmol/L | LABORATORY | | + + + + + + | Cl | 109 | 99 - 109 mmol/L | [facility] | | | | | | LABORATORY | | + + + + + + | CO2 | 26 | 23 - 32 mmol/L | [facility] | | | | | | LABORATORY | | + + + + + + | Anion Gap | 9 | 5 - 20 mmol/L | [facility] | | | | | | LABORATORY | | + + + + + + | Glucose | 109 (H) | 65 - 99 mg/dL | [facility] | | | | | | LABORATORY | | + + + + + + | BUN | 64 (H) | 8 - 25 mg/dL | [facility] | | | | | | LABORATORY | | + + + + + + | Creatinine | 2.6 (H) | 0.70 - 1.30 | [facility] | | | | | mg/dL | LABORATORY | | + + + + + + | BUN/Creatin | 25 | | [facility] | | | ine Ratio | | | LABORATORY | | + + + + + + | Calcium | 7.9 (L) | 8.5 - 10.5 | [facility] | | | | | mg/dL | LABORATORY | | + + + + + + | Estimated | 26 (L)Comment: GFR <60: | >60 | [facility] | | | GFR | CHRONIC KIDNEY DISEASE, | mL/min/1.73m2 | LABORATORY | | | | IF FOUND OVER A 3 MONTH | | | | | | PERIOD.GFR <15: KIDNEY | | | | | | FAILURE.FOR | | | | | | AMERICANS, MULTIPLY THE | | | | | | CALCULATED GFR BY | | | | | | 1.210.This eGFR is | | | | | | calculated using the | | | | | | [facility]D [facility] traceable | | | | | | equation.Testing | | | | | | performed at [facility], [address] | | | | | [facility], | | | | | | [place] [address] | | | | + + + + + + + + | Specimen | + + | Blood | + + + + + + + | Performing | Address | City/State/Zipcode | Phone Number | | Organization | | | | + + + + + | [facility] | [address] | [place] [address] | [phone] | + + + + + POC Glucose (02/17/2019 10:25 PM PDT) + + + + + + | Component | Value | Ref Range | Performed | Pathologist | | | | | At | Signature | + + + + + + | Glucose, | 140 (H)Comment: Testing | 65 - 99 mg/dL | [facility] | | | POC | performed at [facility];[id number] | LABORATORY | | | | [address];[place], [place] | | | | | | [address] | | | | + + + + + + + + | Specimen | + + | | + + + + + + + | Performing | Address | City/State/Zipcode | Phone Number | | Organization | | | | + + + + + | [facility] | [address] | [place] [address] | [phone] | + + + + + POC Glucose (02/17/2019 5:45 PM PDT) + + + + + + | Component | Value | Ref Range | Performed | Pathologist | | | | | At | Signature | + + + + + + | Glucose, | 121 (H)Comment: Testing | 65 - 99 mg/dL | [facility] | | | POC | performed at [facility];[address] | | LABORATORY | | | | [address];[place], [place] | | | | | | [address] | | | | + + + + + + + + | Specimen | + + | | + + + + + + + | Performing | Address | City/State/Zipcode | Phone Number | | Organization | | | | + + + + + | [facility] | [address] | [place] [address] | [phone] | + + + + + POC Glucose (02/17/2019 1:25 PM PDT) + + + + + + | Component | Value | Ref Range | Performed | Pathologist | | | | | At | Signature | + + + + + + | Glucose, | 139 (H)Comment: Testing | 65 - 99 mg/dL | [facility] | | | POC | performed at [facility];[address] | | LABORATORY | | | | [address];[place] | | | | | | [address] | | | | + + + + + + + + | Specimen | + + | | + + + + + + + | Performing | Address | City/State/Zipcode | Phone Number | | Organization | | | | + + + + + | [facility] | [address] | [place] [address] | [phone] | + + + + + POC Glucose (02/17/2019 9:42 AM PDT) + + + + + + | Component | Value | Ref Range | Performed | Pathologist | | | | | At | Signature | + + + + + + | Glucose, | 99Comment: Testing | 65 - 99 mg/dL | [facility] | | | POC | performed at [facility];[address] | | LABORATORY | | | | [address];[place] | | | | | | [address] | | | | + + + + + + + + | Specimen | + + | | + + + + + + + | Performing | Address | City/State/Zipcode | Phone Number | | Organization | | | | + + + + + | [facility] | [address] | [place] [address] | [phone] | + + + + + Magnesium (02/17/2019 4:44 AM PDT) + + + + + + | Component | Value | Ref Range | Performed | Pathologist | | | | | At | Signature | + + + + + + | Magnesium | 2.8 (H)Comment: Testing | 1.7 - 2.4 mg/dL | [facility] | | | | performed at [facility], [address] | | LABORATORY | | | | [address], | | | | | | [place] [address] | | | | + + + + + + + + | Specimen | + + | Blood | + + + + + + + | Performing | Address | City/State/Zipcode | Phone Number | | Organization | | | | + + + + + | [facility] | [address] | [place] [address] | [phone] | + + + + + CBC with Differential (02/17/2019 4:44 AM PDT) + + + + + + | Component | Value | Ref Range | Performed | Pathologist | | | | | At | Signature | + + + + + + | WBC | 16.22 (H) | 3.80 - 11.00 | [facility] | | | | | K/uL | LABORATORY | | + + + + + + | RBC | 3.04 (L) | 4.20 - 5.70 | [facility] | | | | | M/uL | LABORATORY | | + + + + + + | Hemoglobin | 9.7 (L) | 13.2 - 17.0 | [facility] | | | | | g/dL | LABORATORY | | + + + + + + | Hematocrit | 28.7 (L) | 39.0 - 50.0 % | [facility] | | | | | | LABORATORY | | + + + + + + | MCV | 94.4 | 80.0 - 100.0 fl | [facility] | | | | | | LABORATORY | | + + + + + + | MCH | 31.8 | 27.0 - 34.0 pg | [facility] | | | | | | LABORATORY | | + + + + + + | MCHC | 33.6 | 32.0 - 35.5 | [facility] | | | | | g/dL | LABORATORY | | + + + + + + | RDW-SD | 45.5 | 37 - 53 fl | [facility] | | | | | | LABORATORY | | + + + + + + | Platelet | 132 (L) | 150 - 400 K/uL | [facility] | | | Count | | | LABORATORY | | + + + + + + | MPV | 9.1 | fl | [facility] | | | | | | LABORATORY | | + + + + + + | Diff Type | AUTOMATED | | [facility] | | | | | | LABORATORY | | + + + + + + | % | 81.16 | % | [facility] | | | Neutrophils | | | LABORATORY | | + + + + + + | % | 7.53 | % | [facility] | | | Lymphocytes | | | LABORATORY | | + + + + + + | Monocyte % | 10.22 | % | [facility] | | | | | | LABORATORY | | + + + + + + | Eosinophils | 0.88 | % | [facility] | | | % | | | LABORATORY | | + + + + + + | Basophils % | 0.21 | % | [facility] | | | | | | LABORATORY | | + + + + + + | Neutrophils | 13.16 (H) | 1.90 - 7.40 | [facility] | | | , Absolute | | K/uL | LABORATORY | | + + + + + + | Absolute | 1.22 | 1.00 - 3.90 | [facility] | | | Lymphocytes | | K/uL | LABORATORY | | + + + + + + | Absolute | 1.66 (H) | 0.00 - 0.80 | [facility] | | | Monocytes | | K/uL | LABORATORY | | + + + + + + | Eosinophils | 0.14 | 0.00 - 0.50 | [facility] | | | , Absolute | | K/uL | LABORATORY | | + + + + + + | Basophils, | 0.03Comment: Testing | 0.00 - 0.10 | [facility] | | | Absolute | performed at [facility], [address] | K/uL | LABORATORY | | | | [address], | | | | | | [place] [address] | | | | + + + + + + + + | Specimen | + + | Blood | + + + + + + + | Performing | Address | City/State/Zipcode | Phone Number | | Organization | | | | + + + + + | [facility] | [address] | [place] [address] | [phone] | + + + + + Basic Metabolic Panel (02/17/2019 4:44 AM PDT) + + + + + + | Component | Value | Ref Range | Performed | Pathologist | | | | | At | Signature | + + + + + + | Na | 142 | 135 - 145 | [facility] | | | | | mmol/L | LABORATORY | | + + + + + + | K | 4.7 | 3.5 - 4.9 | [facility] | | | | | mmol/L | LABORATORY | | + + + + + + | Cl | 111 (H) | 99 - 109 mmol/L | [facility] | | | | | | LABORATORY | | + + + + + + | CO2 | 26 | 23 - 32 mmol/L | [facility] | | | | | | LABORATORY | | + + + + + + | Anion Gap | 10 | 5 - 20 mmol/L | [facility] | | | | | | LABORATORY | | + + + + + + | Glucose | 79 | 65 - 99 mg/dL | [facility] | | | | | | LABORATORY | | + + + + + + | BUN | 54 (H) | 8 - 25 mg/dL | [facility] | | | | | | LABORATORY | | + + + + + + | Creatinine | 2.6 (H) | 0.70 - 1.30 | [facility] | | | | | mg/dL | LABORATORY | | + + + + + + | BUN/Creatin | 21 | | [facility] | | | ine Ratio | | | LABORATORY | | + + + + + + | Calcium | 7.9 (L) | 8.5 - 10.5 | [facility] | | | | | mg/dL | LABORATORY | | + + + + + + | Estimated | 26 (L)Comment: GFR <60: | >60 | [facility] | | | GFR | CHRONIC KIDNEY DISEASE, | mL/min/1.73m2 | LABORATORY | | | | IF FOUND OVER A 3 MONTH | | | | | | PERIOD.GFR <15: KIDNEY | | | | | | FAILURE.FOR | | | | | | AMERICANS, MULTIPLY THE | | | | | | CALCULATED GFR BY | | | | | | 1.210.This eGFR is | | | | | | calculated using the | | | | | | MDRD IDMS traceable | | | | | | equation.Testing | | | | | | performed at [facility], [address] | | | | | | [facility], | | | | | | [place] [address] | | | | + + + + + + + + | Specimen | + + | Blood | + + + + + + + | Performing | Address | City/State/Zipcode | Phone Number | | Organization | | | | + + + + + | [facility] | [address] | [place] [address] | [phone] | + + + + + XR Chest AP Portable (02/17/2019 4:43 AM PDT) + + | Specimen | + + | | + + + + + | Narrative | Performed At | + + + | CHEST PORTABLE ONE VIEW CLINICAL INFORMATION: Status post | [facility] | | cardiac surgery. COMPARISON: XR CHEST AP PORTABLE (02/16/2019); | | | XR CHEST AP PORTABLE (02/15/2019); XR CHEST PA AND LATERAL | | | (02/14/2019); FINDINGS/IMPRESSION: 1. Interval removal of the | | | pulmonary artery catheter. The right internal jugular central | | | venous catheter sheath tip overlies the lower SVC. Bilateral chest | | | tubes and mediastinal drain are unchanged in position. 2. Unchanged | | | low lung volumes with bibasilar streaky opacities which are most | | | consistent with atelectasis. The lungs otherwise clear. No large | | | pleural effusion. No pneumothorax. 3. Cardiomediastinal contours | | | are stable. Signed by: Lesa Palomares Jace Sign | | | Date/Time: 02/17/2019 5:55 AM | | + + + + + | Procedure Note | + + | Ej, Rad Results In - 02/17/2019 5:58 AM PDT | | CHEST PORTABLE ONE VIEW | | | | CLINICAL INFORMATION: | | Status post cardiac surgery. | | | | COMPARISON: | | XR CHEST AP PORTABLE (02/16/2019); XR CHEST AP PORTABLE (02/15/2019); | | XR CHEST PA AND LATERAL (02/14/2019); | | | | FINDINGS/IMPRESSION: | | 1. Interval removal of the pulmonary artery catheter. The right | | internal jugular central venous catheter sheath tip overlies the lower | | SVC. Bilateral chest tubes and mediastinal drain are unchanged in | | position. | | 2. Unchanged low lung volumes with bibasilar streaky opacities which | | are most consistent with atelectasis. The lungs otherwise clear. No | | large pleural effusion. No pneumothorax. | | 3. Cardiomediastinal contours are stable. | | | | | | | | | | | | Signed by: Lesa Palomares Jace | | Sign Date/Time: 02/17/2019 5:55 AM | + + + +---------+ + + | Performing | Address | City/State/Zipcode | Phone Number | | Organization | | | | + +---------+ + + | [facility] | | | | + +---------+ + + POC Glucose (02/16/2019 10:01 PM PDT) + + + + + + | Component | Value | Ref Range | Performed | Pathologist | | | | | At | Signature | + + + + + + | Glucose, | 177 (H)Comment: Testing | 65 - 99 mg/dL | [facility] | | | POC | performed at [facility];[address] | | LABORATORY | | | | [address];[place] | | | | | | [address] | | | | + + + + + + + + | Specimen | + + | | + + + + + + + | Performing | Address | City/State/Zipcode | Phone Number | | Organization | | | | + + + + + | [facility] | [address] | [place] [address] | [phone] | + + + + + POC Glucose (02/16/2019 5:41 PM PDT) + + + + + + | Component | Value | Ref Range | Performed | Pathologist | | | | | At | Signature | + + + + + + | Glucose, | 227 (H)Comment: Testing | 65 - 99 mg/dL | [facility] | | | POC | performed at [facility];[address] | | LABORATORY | | | | [address];[place], [place] | | | | | | [address] | | | | + + + + + + + + | Specimen | + + | | + + + + + + + | Performing | Address | City/State/Zipcode | Phone Number | | Organization | | | | + + + + + | [facility] | [address] [facility] | [place] [address] | [phone] | + + + + + POC Glucose (02/16/2019 12:51 PM PDT) + + + + + + | Component | Value | Ref Range | Performed | Pathologist | | | | | At | Signature | + + + + + + | Glucose, | 176 (H)Comment: Testing | 65 - 99 mg/dL | [facility] | | | POC | performed at [facility];[address] | | LABORATORY | | | | [address];[place] | | | | | | [address] | | | | + + + + + + + + | Specimen | + + | | + + + + + + + | Performing | Address | City/State/Zipcode | Phone Number | | Organization | | | | + + + + + | [facility] | [address] | [place] [address] | [phone] | + + + + + Potassium (02/16/2019 12:45 PM PDT) + + + + + + | Component | Value | Ref Range | Performed | Pathologist | | | | | At | Signature | + + + + + + | K | 5.6 (H)Comment: Testing | 3.5 - 4.9 | [facility] | | | | performed at [facility];[address] | mmol/L | LABORATORY | | | | [address];[place] | | | | | | [address] | | | | + + + + + + + + | Specimen | + + | Blood | + + + + + + + | Performing | Address | City/State/Zipcode | Phone Number | | Organization | | | | + + + + + | [facility] | [address] | [place] [address] | [phone] | + + + + + POC Glucose (02/16/2019 11:21 AM PDT) + + + + + + | Component | Value | Ref Range | Performed | Pathologist | | | | | At | Signature | + + + + + + | Glucose, | 155 (H)Comment: Testing | 65 - 99 mg/dL | [facility] | | | POC | performed at [facility];[address] | | LABORATORY | | | | [address];[place], [place] | | | | | | [address] | | | | + + + + + + + + | Specimen | + + | | + + + + + + + | Performing | Address | City/State/Zipcode | Phone Number | | Organization | | | | + + + + + | [facility] | [address] | [place] [address] | [phone] | + + + + + POC Glucose (02/16/2019 9:25 AM PDT) + + + + + + | Component | Value | Ref Range | Performed | Pathologist | | | | | At | Signature | + + + + + + | Glucose, | 88Comment: Testing | 65 - 99 mg/dL | [facility] | | | POC | performed at [facility];[address] | | LABORATORY | | | | [address];[place] | | | | | | [address] | | | | + + + + + + + + | Specimen | + + | | + + + + + + + | Performing | Address | City/State/Zipcode | Phone Number | | Organization | | | | + + + + + | [facility] | [address] | [place] [address] | [phone] | + + + + + POC Glucose (02/16/2019 8:44 AM PDT) + + + + + + | Component | Value | Ref Range | Performed | Pathologist | | | | | At | Signature | + + + + + + | Glucose, | 80Comment: Testing | 65 - 99 mg/dL | [facility] | | | POC | performed at [facility];[address] | | LABORATORY | | | | [address];[place] | | | | | | [address] | | | | + + + + + + + + | Specimen | + + | | + + + + + + + | Performing | Address | City/State/Zipcode | Phone Number | | Organization | | | | + + + + + | [facility] | [address] | [place] [address] | [phone] | + + + + + POC Glucose (02/16/2019 6:40 AM PDT) + + + + + + | Component | Value | Ref Range | Performed | Pathologist | | | | | At | Signature | + + + + + + | Glucose, | 108 (H)Comment: Testing | 65 - 99 mg/dL | [facility] | | | POC | performed at [facility];[address] | | LABORATORY | | | | [address];[place] | | | | | | [address] | | | | + + + + + + + + | Specimen | + + | | + + + + + + + | Performing | Address | City/State/Zipcode | Phone Number | | Organization | | | | + + + + + | [facility] | [address] | [place] [address] | [phone] | + + + + + POC Glucose (02/16/2019 6:36 AM PDT) + + + + + + | Component | Value | Ref Range | Performed | Pathologist | | | | | At | Signature | + + + + + + | Glucose, | 133 (H)Comment: Testing | 65 - 99 mg/dL | [facility] | | | POC | performed at [facility];[address] | | LABORATORY | | | | [address];[place], [place] | | | | | | [address] | | | | + + + + + + + + | Specimen | + + | | + + + + + + + | Performing | Address | City/State/Zipcode | Phone Number | | Organization | | | | + + + + + | [facility] | [address] | [place] [address] | [phone] | + + + + + XR Chest AP Portable (02/16/2019 4:52 AM PDT) + + | Specimen | + + | | + + + + + | Impressions | Performed At | + + + | Hypoventilatory postoperative chest. No pneumothorax. | [facility] | | Signed by: Radha Chavez, Kayley Sign Date/Time: 02/16/2019 5:43 AM | | | | | + + + + + + | Narrative | Performed At | + + + | CHEST PORTABLE ONE VIEW CLINICAL INFORMATION: Status post | [facility] | | cardiac surgery. COMPARISON: Yesterday. FINDINGS: Patient | | | has been extubated and an NG tube withdrawn. Right jugular venous | | | catheter tip overlies the SVC. Lung volumes are low. Volume loss | | | in the bilateral lung bases. No pneumothorax. | | + + + + + | Procedure Note | + + | Ej, Rad Results In - 02/16/2019 5:46 AM PDT | | CHEST PORTABLE ONE VIEW | | | | CLINICAL INFORMATION: | | | | Status post cardiac surgery. | | | | COMPARISON: | | Yesterday. | | | | FINDINGS: | | Patient has been extubated and an NG tube withdrawn. Right jugular | | venous catheter tip overlies the SVC. | | | | Lung volumes are low. Volume loss in the bilateral lung bases. No | | pneumothorax. | | | | IMPRESSION: | | Hypoventilatory postoperative chest. No pneumothorax. | | | | | | | | Signed by: Radha Chavez Julie | | Sign Date/Time: 02/16/2019 5:43 AM | + + + +---------+ + + | Performing | Address | City/State/Zipcode | Phone Number | | Organization | | | | + +---------+ + + | [facility] | | | | + +---------+ + + Magnesium (02/16/2019 4:34 AM PDT) + + + + + + | Component | Value | Ref Range | Performed | Pathologist | | | | | At | Signature | + + + + + + | Magnesium | 2.6 (H)Comment: Testing | 1.7 - 2.4 mg/dL | [facility] | | | | performed at [facility] | | LABORATORY | | | | [address];[place], [place] | | | | | | [address] | | | | + + + + + + + + | Specimen | + + | Blood | + + + + + + + | Performing | Address | City/State/Zipcode | Phone Number | | Organization | | | | + + + + + | [facility] | [address] | [place] [address] | [phone] | + + + + + CBC with Differential (02/16/2019 4:34 AM PDT) + + + + + + | Component | Value | Ref Range | Performed | Pathologist | | | | | At | Signature | + + + + + + | WBC | 18.13 (H) | 3.80 - 11.00 | [facility] | | | | | K/uL | LABORATORY | | + + + + + + | RBC | 3.59 (L) | 4.20 - 5.70 | [facility] | | | | | M/uL | LABORATORY | | + + + + + + | Hemoglobin | 11.4 (L) | 13.2 - 17.0 | [facility] | | | | | g/dL | LABORATORY | | + + + + + + | Hematocrit | 33.3 (L) | 39.0 - 50.0 % | [facility] | | | | | | LABORATORY | | + + + + + + | MCV | 92.9 | 80.0 - 100.0 fl | [facility] | | | | | | LABORATORY | | + + + + + + | MCH | 31.8 | 27.0 - 34.0 pg | [facility] | | | | | | LABORATORY | | + + + + + + | MCHC | 34.2 | 32.0 - 35.5 | [facility] | | | | | g/dL | LABORATORY | | + + + + + + | RDW-SD | 45.5 | 37 - 53 fl | [facility] | | | | | | LABORATORY | | + + + + + + | Platelet | 137 (L) | 150 - 400 K/uL | [facility] | | | Count | | | LABORATORY | | + + + + + + | MPV | 8.7 | fl | [facility] | | | | | | LABORATORY | | + + + + + + | Diff Type | AUTOMATED | | [facility] | | | | | | LABORATORY | | + + + + + + | % | 82.79 | % | [facility] | | | Neutrophils | | | LABORATORY | | + + + + + + | % | 5.09 | % | [facility] | | | Lymphocytes | | | LABORATORY | | + + + + + + | Monocyte % | 11.75 | % | [facility] | | | | | | LABORATORY | | + + + + + + | Eosinophils | 0.03 | % | [facility] | | | % | | | LABORATORY | | + + + + + + | Basophils % | 0.34 | % | [facility] | | | | | | LABORATORY | | + + + + + + | Neutrophils | 15.01 (H) | 1.90 - 7.40 | [facility] | | | , Absolute | | K/uL | LABORATORY | | + + + + + + | Absolute | 0.92 (L) | 1.00 - 3.90 | [facility] | | | Lymphocytes | | K/uL | LABORATORY | | + + + + + + | Absolute | 2.13 (H) | 0.00 - 0.80 | [facility] | | | Monocytes | | K/uL | LABORATORY | | + + + + + + | Eosinophils | 0.01 | 0.00 - 0.50 | [facility] | | | , Absolute | | K/uL | LABORATORY | | + + + + + + | Basophils, | 0.06Comment: Testing | 0.00 - 0.10 | [facility] | | | Absolute | performed at [facility], [address] | K/uL | LABORATORY | | | | [address], | | | | | | [place] [address] | | | | + + + + + + + + | Specimen | + + | Blood | + + + + + + + | Performing | Address | City/State/Zipcode | Phone Number | | Organization | | | | + + + + + | [facility] | [address] | [place] [address] | [phone] | + + + + + Basic Metabolic Panel (02/16/2019 4:34 AM PDT) + + + + + + | Component | Value | Ref Range | Performed | Pathologist | | | | | At | Signature | + + + + + + | Na | 151 (H) | 135 - 145 | [facility] | | | | | mmol/L | LABORATORY | | + + + + + + | K | 4.9 | 3.5 - 4.9 | [facility] | | | | | mmol/L | LABORATORY | | + + + + + + | Cl | 117 (H) | 99 - 109 mmol/L | [facility] | | | | | | LABORATORY | | + + + + + + | CO2 | 27 | 23 - 32 mmol/L | [facility] | | | | | | LABORATORY | | + + + + + + | Anion Gap | 12 | 5 - 20 mmol/L | [facility] | | | | | | LABORATORY | | + + + + + + | Glucose | 124 (H) | 65 - 99 mg/dL | [facility] | | | | | | LABORATORY | | + + + + + + | BUN | 43 (H) | 8 - 25 mg/dL | [facility] | | | | | | LABORATORY | | + + + + + + | Creatinine | 2.18 (H) | 0.70 - 1.30 | [facility] | | | | | mg/dL | LABORATORY | | + + + + + + | BUN/Creatin | 20 | | [facility] | | | ine Ratio | | | LABORATORY | | + + + + + + | Calcium | 7.5 (L) | 8.5 - 10.5 | [facility] | | | | | mg/dL | LABORATORY | | + + + + + + | Estimated | 32 (L)Comment: GFR <60: | >60 | [facility] | | | GFR | CHRONIC KIDNEY DISEASE, | mL/min/1.73m2 | LABORATORY | | | | IF FOUND OVER A 3 MONTH | | | | | | PERIOD.GFR <15: KIDNEY | | | | | | FAILURE.FOR | | | | | | AMERICANS, MULTIPLY THE | | | | | | CALCULATED GFR BY | | | | | | 1.210.This eGFR is | | | | | | calculated using the | | | | | | MDRD IDMS traceable | | | | | | equation.Testing | | | | | | performed at [facility];[address] | | | | | [address] [facility];[place], [place] | | | | | | [address] | | | | + + + + + + + + | Specimen | + + | Blood | + + + + + + + | Performing | Address | City/State/Zipcode | Phone Number | | Organization | | | | + + + + + | [facility] | [address] | [place] [address] | [phone] | + + + + + POC Glucose (02/16/2019 4:30 AM PDT) + + + + + + | Component | Value | Ref Range | Performed | Pathologist | | | | | At | Signature | + + + + + + | Glucose, | 121 (H)Comment: Testing | 65 - 99 mg/dL | [facility] | | | POC | performed at [facility];[address] | | LABORATORY | | | | [address];[place] | | | | | | [address] | | | | + + + + + + + + | Specimen | + + | | + + + + + + + | Performing | Address | City/State/Zipcode | Phone Number | | Organization | | | | + + + + + | [facility] | [address] | [place] [address] | [phone] | + + + + + POC Glucose (02/16/2019 2:51 AM PDT) + + + + + + | Component | Value | Ref Range | Performed | Pathologist | | | | | At | Signature | + + + + + + | Glucose, | 119 (H)Comment: Testing | 65 - 99 mg/dL | [facility] | | | POC | performed at [facility];[address] | | LABORATORY | | | | [address];[place], [place] | | | | | | [address] | | | | + + + + + + + + | Specimen | + + | | + + + + + + + | Performing | Address | City/State/Zipcode | Phone Number | | Organization | | | | + + + + + | [facility] | [address] [facility] | [place] [address] | [phone] | + + + + + POC Glucose (02/16/2019 12:43 AM PDT) + + + + + + | Component | Value | Ref Range | Performed | Pathologist | | | | | At | Signature | + + + + + + | Glucose, | 126 (H)Comment: Testing | 65 - 99 mg/dL | [facility] | | | POC | performed at [facility];[address] | | LABORATORY | | | | [address];[place] | | | | | | [address] | | | | + + + + + + + + | Specimen | + + | | + + + + + + + | Performing | Address | City/State/Zipcode | Phone Number | | Organization | | | | + + + + + | [facility] | [address] | [place] [address] | [phone] | + + + + + Potassium (02/15/2019 11:39 PM PDT) + + + + + + | Component | Value | Ref Range | Performed | Pathologist | | | | | At | Signature | + + + + + + | K | 4.6Comment: Testing | 3.5 - 4.9 | [facility] | | | | performed at [facility];[address] | mmol/L | LABORATORY | | | | [address];[place] | | | | | | [address] | | | | + + + + + + + + | Specimen | + + | Blood | + + + + + + + | Performing | Address | City/State/Zipcode | Phone Number | | Organization | | | | + + + + + | [facility] | [address] | [place] [address] | [phone] | + + + + + Blood gas, Arterial (02/15/2019 11:29 PM PDT) + + + + + + | Component | Value | Ref Range | Performed | Pathologist | | | | | At | Signature | + + + + + + | pH, | 7.383 | 7.350 - 7.450 | [facility] | | | Arterial, | | | LABORATORY | | | POC | | | | | + + + + + + | pCO2, | 39 | 35 - 45 mmHg | [facility] | | | Arterial | | | LABORATORY | | + + + + + + | pO2, | 94 | 80 - 105 mmHg | [facility] | | | Arterial | | | LABORATORY | | + + + + + + | HCO3, | 23 | 22 - 26 mmol/L | [facility] | | | Arterial | | | LABORATORY | | + + + + + + | TCO2, | 25 | 23 - 27 mEq/L | [facility] | | | Arterial, | | | LABORATORY | | | POC | | | | | + + + + + + | POC Base | 2 | 0.0 - 2.0 | [facility] | | | Deficit | | mmol/L | LABORATORY | | | mmol/L | | | | | + + + + + + | SO2, | 97Comment: Testing | 95 - 98 % | [facility] | | | Arterial, | performed at [facility];[address] | | LABORATORY | | | POC | [address];[place] | | | | | | [address] | | | | + + + + + + + + | Specimen | + + | | + + + + + + + | Performing | Address | City/State/Zipcode | Phone Number | | Organization | | | | + + + + + | [facility] | [address] | [place] [address] | [phone] | + + + + + POC Glucose (02/15/2019 11:28 PM PDT) + + + + + + | Component | Value | Ref Range | Performed | Pathologist | | | | | At | Signature | + + + + + + | Glucose, | 131 (H)Comment: Testing | 65 - 99 mg/dL | [facility] | | | POC | performed at [facility];[address] | | LABORATORY | | | | [address];[place] | | | | | | [address] | | | | + + + + + + + + | Specimen | + + | | + + + + + + + | Performing | Address | City/State/Zipcode | Phone Number | | Organization | | | | + + + + + | [facility] | [address] | [place] [address] | [phone] | + + + + + POC Glucose (02/15/2019 10:22 PM PDT) + + + + + + | Component | Value | Ref Range | Performed | Pathologist | | | | | At | Signature | + + + + + + | Glucose, | 130 (H)Comment: Testing | 65 - 99 mg/dL | [facility] | | | POC | performed at [facility];[address] | | LABORATORY | | | | [address];[place], [place] | | | | | | [address] | | | | + + + + + + + + | Specimen | + + | | + + + + + + + | Performing | Address | City/State/Zipcode | Phone Number | | Organization | | | | + + + + + | [facility] | [address] | [place] [address] | [phone] | + + + + + POC Glucose (02/15/2019 9:17 PM PDT) + + + + + + | Component | Value | Ref Range | Performed | Pathologist | | | | | At | Signature | + + + + + + | Glucose, | 141 (H)Comment: Testing | 65 - 99 mg/dL | [facility] | | | POC | performed at [facility];[address] | | LABORATORY | | | | [address];[place], [place] | | | | | | [address] | | | | + + + + + + + + | Specimen | + + | | + + + + + + + | Performing | Address | City/State/Zipcode | Phone Number | | Organization | | | | + + + + + | [facility] | [address] | [place] [address] | [phone] | + + + + + POC ISTAT, CG8, Venous (02/15/2019 8:50 PM PDT) + + + + + + | Component | Value | Ref Range | Performed | Pathologist | | | | | At | Signature | + + + + + + | pH, Venous, | 7.338 | 7.310 - 7.410 | [facility] | | | POC | | | LABORATORY | | + + + + + + | PCO2, | 44 | 41 - 51 mmHG | [facility] | | | Venous, POC | | | LABORATORY | | + + + + + + | pO2, Venous | 37 | 30 - 40 mmHG | [facility] | | | | | | LABORATORY | | + + + + + + | HCO3, | 24 | 23 - 28 mmol/L | [facility] | | | Venous | | | LABORATORY | | + + + + + + | TCO2, POC | 25 | 24 - 29 mEq/L | [facility] | | | | | | LABORATORY | | + + + + + + | POC Base | 2 | 0.0 - 2.0 | [facility] | | | Deficit | | mmol/L | LABORATORY | | | mmol/L | | | | | + + + + + + | POC | 66.0 | 60 - 85 % | [facility] | | | SO2.BLDV.QN | | | LABORATORY | | | .(%) | | | | | + + + + + + | Sodium, POC | 150 (H) | 135 - 145 mEq/L | [facility] | | | | | | LABORATORY | | + + + + + + | Potassium, | 3.6 | 3.5 - 5.0 mEq/L | [facility] | | | POC | | | LABORATORY | | + + + + + + | Ionized | 1.10 (L) | 1.12 - 1.32 | [facility] | | | Calcium, | | mmol/L | LABORATORY | | | POC | | | | | + + + + + + | Glucose, | 136 (H) | 65 - 99 mg/dL | [facility] | | | POC | | | LABORATORY | | + + + + + + | Hematocrit, | 33 (L) | 40.0 - 50.0 % | [facility] | | | POC | | | LABORATORY | | + + + + + + | Hemoglobin, | 11.2 (L) | 13.7 - 16.7 | [facility] | | | POC | | g/dL | LABORATORY | | + + + + + + | Comment, | MANUALLY ORDERED AND | | [facility] | | | POC | RESULTED | | LABORATORY | | | | VENOUSComment: Testing | | | | | | performed at [facility];[address] | | | | | | [address];[place], [place] | | | | | | [address] | | | | + + + + + + + + | Specimen | + + | | + + + + + + + | Performing | Address | City/State/Zipcode | Phone Number | | Organization | | | | + + + + + | [facility] | [address] | [place] [address] | [phone] | + + + + + Blood gas, Arterial (02/15/2019 8:03 PM PDT) + + + + + + | Component | Value | Ref Range | Performed | Pathologist | | | | | At | Signature | + + + + + + | FiO2, POC | 30 | % | [facility] | | | | | | LABORATORY | | + + + + + + | pH, | 7.329 (L) | 7.350 - 7.450 | [facility] | | | Arterial, | | | LABORATORY | | | POC | | | | | + + + + + + | pCO2, | 43 | 35 - 45 mmHg | [facility] | | | Arterial | | | LABORATORY | | + + + + + + | pO2, | 94 | 80 - 105 mmHg | [facility] | | | Arterial | | | LABORATORY | | + + + + + + | HCO3, | 23 | 22 - 26 mmol/L | [facility] | | | Arterial | | | LABORATORY | | + + + + + + | TCO2, | 24 | 23 - 27 mEq/L | [facility] | | | Arterial, | | | LABORATORY | | | POC | | | | | + + + + + + | POC Base | 3 (H) | 0.0 - 2.0 | [facility] | | | Deficit | | mmol/L | LABORATORY | | | mmol/L | | | | | + + + + + + | SO2, | 97Comment: Testing | 95 - 98 % | [facility] | | | Arterial, | performed at [facility];[address] | | LABORATORY | | | POC | [facility], [place] | | | | | | [address] | | | | + + + + + + + + | Specimen | + + | | + + + + + + + | Performing | Address | City/State/Zipcode | Phone Number | | Organization | | | | + + + + + | [facility] | [address] | [place] [address] | [phone] | + + + + + Potassium (02/15/2019 8:02 PM PDT) + + + + + + | Component | Value | Ref Range | Performed | Pathologist | | | | | At | Signature | + + + + + + | K | 3.7Comment: Testing | 3.5 - 4.9 | [facility] | | | | performed at [facility];[address] | mmol/L | LABORATORY | | | | [address];[place], [place] | | | | | | [address] | | | | + + + + + + + + | Specimen | + + | Blood | + + + + + + + | Performing | Address | City/State/Zipcode | Phone Number | | Organization | | | | + + + + + | [facility] | [address] | [place] [address] | [phone] | + + + + + POC Glucose (02/15/2019 6:47 PM PDT) + + + + + + | Component | Value | Ref Range | Performed | Pathologist | | | | | At | Signature | + + + + + + | Glucose, | 91Comment: Testing | 65 - 99 mg/dL | [facility] | | | POC | performed at [facility];[address] | | LABORATORY | | | | [address];[place] | | | | | | [address] | | | | + + + + + + + + | Specimen | + + | | + + + + + + + | Performing | Address | City/State/Zipcode | Phone Number | | Organization | | | | + + + + + | [facility] | [address] | [place] [address] | [phone] | + + + + + Blood gas, Arterial (02/15/2019 6:19 PM PDT) + + + + + + | Component | Value | Ref Range | Performed | Pathologist | | | | | At | Signature | + + + + + + | FiO2, POC | 30 | % | [facility] | | | | | | LABORATORY | | + + + + + + | pH, | 7.309 (L) | 7.350 - 7.450 | [facility] | | | Arterial, | | | LABORATORY | | | POC | | | | | + + + + + + | pCO2, | 39 | 35 - 45 mmHg | [facility] | | | Arterial | | | LABORATORY | | + + + + + + | pO2, | 83 | 80 - 105 mmHg | [facility] | | | Arterial | | | LABORATORY | | + + + + + + | HCO3, | 20 (L) | 22 - 26 mmol/L | [facility] | | | Arterial | | | LABORATORY | | + + + + + + | TCO2, | 21 (L) | 23 - 27 mEq/L | [facility] | | | Arterial, | | | LABORATORY | | | POC | | | | | + + + + + + | POC Base | 7 (H) | 0.0 - 2.0 | [facility] | | | Deficit | | mmol/L | LABORATORY | | | mmol/L | | | | | + + + + + + | SO2, | 95Comment: Testing | 95 - 98 % | [facility] | | | Arterial, | performed at [facility];[address] | | LABORATORY | | | POC | [address];[place] | | | | | | [address] | | | | + + + + + + + + | Specimen | + + | | + + + + + + + | Performing | Address | City/State/Zipcode | Phone Number | | Organization | | | | + + + + + | [facility] | [address] | [place] [address] | [phone] | + + + + + Blood gas, Arterial (02/15/2019 5:33 PM PDT) + + + + + + | Component | Value | Ref Range | Performed | Pathologist | | | | | At | Signature | + + + + + + | FiO2, POC | 30 | % | [facility] | | | | | | LABORATORY | | + + + + + + | pH, | 7.264 (L) | 7.350 - 7.450 | [facility] | | | Arterial, | | | LABORATORY | | | POC | | | | | + + + + + + | pCO2, | 47 (H) | 35 - 45 mmHg | [facility] | | | Arterial | | | LABORATORY | | + + + + + + | pO2, | 76 (L) | 80 - 105 mmHg | [facility] | | | Arterial | | | LABORATORY | | + + + + + + | HCO3, | 21 (L) | 22 - 26 mmol/L | [facility] | | | Arterial | | | LABORATORY | | + + + + + + | TCO2, | 23 | 23 - 27 mEq/L | [facility] | | | Arterial, | | | LABORATORY | | | POC | | | | | + + + + + + | POC Base | 6 (H) | 0.0 - 2.0 | [facility] | | | Deficit | | mmol/L | LABORATORY | | | mmol/L | | | | | + + + + + + | SO2, | 93 (L)Comment: Testing | 95 - 98 % | [facility] | | | Arterial, | performed at [facility];[address] | | LABORATORY | | | POC | [address];[place], [place] | | | | | | [address] | | | | + + + + + + + + | Specimen | + + | | + + + + + + + | Performing | Address | City/State/Zipcode | Phone Number | | Organization | | | | + + + + + | [facility] | [address] | [place] [address] | [phone] | + + + + + POC Glucose (02/15/2019 4:43 PM PDT) + + + + + + | Component | Value | Ref Range | Performed | Pathologist | | | | | At | Signature | + + + + + + | Glucose, | 137 (H)Comment: Testing | 65 - 99 mg/dL | [facility] | | | POC | performed at [facility];[address] | | LABORATORY | | | | [address];[place] | | | | | | [address] | | | | + + + + + + + + | Specimen | + + | | + + + + + + + | Performing | Address | City/State/Zipcode | Phone Number | | Organization | | | | + + + + + | [facility] | [address] | [place] [address] | [phone] | + + + + + Blood gas, Arterial (02/15/2019 4:32 PM PDT) + + + + + + | Component | Value | Ref Range | Performed | Pathologist | | | | | At | Signature | + + + + + + | FiO2, POC | 30 | % | [facility] | | | | | | LABORATORY | | + + + + + + | pH, | 7.309 (L) | 7.350 - 7.450 | [facility] | | | Arterial, | | | LABORATORY | | | POC | | | | | + + + + + + | pCO2, | 39 | 35 - 45 mmHg | [facility] | | | Arterial | | | LABORATORY | | + + + + + + | pO2, | 83 | 80 - 105 mmHg | [facility] | | | Arterial | | | LABORATORY | | + + + + + + | HCO3, | 20 (L) | 22 - 26 mmol/L | [facility] | | | Arterial | | | LABORATORY | | + + + + + + | TCO2, | 21 (L) | 23 - 27 mEq/L | [facility] | | | Arterial, | | | LABORATORY | | | POC | | | | | + + + + + + | POC Base | 7 (H) | 0.0 - 2.0 | [facility] | | | Deficit | | mmol/L | LABORATORY | | | mmol/L | | | | | + + + + + + | SO2, | 95Comment: Testing | 95 - 98 % | [facility] | | | Arterial, | performed at [facility];[address] | | LABORATORY | | | POC | [address];[place] | | | | | | [address] | | | | + + + + + + + + | Specimen | + + | | + + + + + + + | Performing | Address | City/State/Zipcode | Phone Number | | Organization | | | | + + + + + | [facility] | [address] | [place] [address] | [phone] | + + + + + Potassium (02/15/2019 4:03 PM PDT) + + + + + + | Component | Value | Ref Range | Performed | Pathologist | | | | | At | Signature | + + + + + + | K | 3.9Comment: Testing | 3.5 - 4.9 | [facility] | | | | performed at [facility];[address] | mmol/L | LABORATORY | | | | [address];[place], [place] | | | | | | [address] | | | | + + + + + + + + | Specimen | + + | Blood | + + + + + + + | Performing | Address | City/State/Zipcode | Phone Number | | Organization | | | | + + + + + | [facility] | [address] | [place] [address] | [phone] | + + + + + POC Glucose (02/15/2019 3:39 PM PDT) + + + + + + | Component | Value | Ref Range | Performed | Pathologist | | | | | At | Signature | + + + + + + | Glucose, | 139 (H)Comment: Testing | 65 - 99 mg/dL | [facility] | | | POC | performed at [facility];[address] | | LABORATORY | | | | [address] [facility];[place], [place] | | | | | | [address] | | | | + + + + + + + + | Specimen | + + | | + + + + + + + | Performing | Address | City/State/Zipcode | Phone Number | | Organization | | | | + + + + + | [facility] | [address] | [place] [address] | [phone] | + + + + + Blood gas, Arterial (02/15/2019 3:26 PM PDT) + + + + + + | Component | Value | Ref Range | Performed | Pathologist | | | | | At | Signature | + + + + + + | FiO2, POC | 30 | % | [facility] | | | | | | LABORATORY | | + + + + + + | pH, | 7.243 (LL) | 7.350 - 7.450 | [facility] | | | Arterial, | | | LABORATORY | | | POC | | | | | + + + + + + | pCO2, | 41 | 35 - 45 mmHg | [facility] | | | Arterial | | | LABORATORY | | + + + + + + | pO2, | 89 | 80 - 105 mmHg | [facility] | | | Arterial | | | LABORATORY | | + + + + + + | HCO3, | 18 (L) | 22 - 26 mmol/L | [facility] | | | Arterial | | | LABORATORY | | + + + + + + | TCO2, | 19 (L) | 23 - 27 mEq/L | [facility] | | | Arterial, | | | LABORATORY | | | POC | | | | | + + + + + + | POC Base | 10 (H) | 0.0 - 2.0 | [facility] | | | Deficit | | mmol/L | LABORATORY | | | mmol/L | | | | | + + + + + + | SO2, | 95Comment: Testing | 95 - 98 % | [facility] | | | Arterial, | performed at [facility];[address] | | LABORATORY | | | POC | [address];[place] | | | | | | [address] | | | | + + + + + + + + | Specimen | + + | | + + + + + + + | Performing | Address | City/State/Zipcode | Phone Number | | Organization | | | | + + + + + | [facility] | [address] | [place] [address] | [phone] | + + + + + POC Glucose (02/15/2019 2:43 PM PDT) + + + + + + | Component | Value | Ref Range | Performed | Pathologist | | | | | At | Signature | + + + + + + | Glucose, | 123 (H)Comment: Testing | 65 - 99 mg/dL | [facility] | | | POC | performed at [facility];[address] | | LABORATORY | | | | [address];[place] | | | | | | [address] | | | | + + + + + + + + | Specimen | + + | | + + + + + + + | Performing | Address | City/State/Zipcode | Phone Number | | Organization | | | | + + + + + | [facility] | [address] | [place] [address] | [phone] | + + + + + Calcium, Ionized, Venous (02/15/2019 1:48 PM PDT) + + + + + + | Component | Value | Ref Range | Performed | Pathologist | | | | | At | Signature | + + + + + + | Calcium, | 1.10 | 1.08 - 1.25 | [facility] | | | Ionized | | mmol/L | LABORATORY | | + + + + + + | pH, Venous | 7.307Comment: Testing | 7.300 - 7.450 | [facility] | | | | performed at [facility];[address] | | LABORATORY | | | | [address];[place], [place] | | | | | | [address] | | | | + + + + + + + + | Specimen | + + | Blood | + + + + + + + | Performing | Address | City/State/Zipcode | Phone Number | | Organization | | | | + + + + + | [facility] | [address] | [place] [address] | [phone] | + + + + + PTT (02/15/2019 1:45 PM PDT) + + + + + + | Component | Value | Ref Range | Performed | Pathologist | | | | | At | Signature | + + + + + + | PTT | 26Comment: Testing | 23 - 32 seconds | [facility] | | | | performed at [facility];[address] | | LABORATORY | | | | [address];[place] | | | | | | [address] | | | | + + + + + + + + | Specimen | + + | Blood | + + + + + + + | Performing | Address | City/State/Zipcode | Phone Number | | Organization | | | | + + + + + | [facility] | [address] | [place] [address] | [phone] | + + + + + Protime INR (02/15/2019 1:45 PM PDT) + + + + + + | Component | Value | Ref Range | Performed | Pathologist | | | | | At | Signature | + + + + + + | INR | 1.2Comment: REFERENCE | | [facility] | | | | RANGE:0.9 - 1.2 | | LABORATORY | | | | NON-ANTICOAGULATED2.0 | | | | | | - 3.0 ALL OTHER | | | | | | THERAPEUTIC | | | | | | INDICATIONS2.5 - 3.5 | | | | | | MECHANICAL HEART VALVES, | | | | | | RECURRENT OR SYSTEMIC | | | | | | EMBOLISMTesting | | | | | | performed at [facility];[address] | | | | | | [address];[place] | | | | | | [address] | | | | + + + + + + + + | Specimen | + + | Blood | + + + + + + + | Performing | Address | City/State/Zipcode | Phone Number | | Organization | | | | + + + + + | [facility] | [address] | [place] [address] | [phone] | + + + + + Magnesium (02/15/2019 1:45 PM PDT) + + + + + + | Component | Value | Ref Range | Performed | Pathologist | | | | | At | Signature | + + + + + + | Magnesium | 3.0 (H)Comment: Testing | 1.7 - 2.4 mg/dL | [facility] | | | | performed at [facility];[address] | | LABORATORY | | | | [address];[place] | | | | | | [address] | | | | + + + + + + + + | Specimen | + + | Blood | + + + + + + + | Performing | Address | City/State/Zipcode | Phone Number | | Organization | | | | + + + + + | [facility] | [address] | [place] [address] | [phone] | + + + + + Hemoglobin A1C (02/15/2019 1:45 PM PDT) + + + + + + | Component | Value | Ref Range | Performed | Pathologist | | | | | At | Signature | + + + + + + | Hemoglobin | 7.4 (H)Comment: HbA1c | 4.0 - 6.0 % | [facility] | | | A1c | method is certified by | | LABORATORY | | | | NGSP and traceable to | | | | | | the DCCT reference | | | | | | method.ADA guidelines | | | | | | indicate: | | | | | | Prediabetes: 5.7 - 6.4 | | | | | | Diabetes: >6.4 | | | | | | Glycemic control for | | | | | | adults with diabetes: | | | | | | <7.0Effective 05/10/2018: | | | | | | Note New Method | | | | + + + + + + | Estimated | 166 (H)Comment: | <154 mg/dL | [facility] | | | Average | Estimated Average | | LABORATORY | | | Glucose | Glucose calculated from | | | | | | hemoglobin A1c by use of | | | | | | the ADArecommended | | | | | | formula.Testing | | | | | | performed at [facility], [address] | | | | | [facility], | | | | | | [place] [address] | | | | + + + + + + + + | Specimen | + + | Blood | + + + + + + + | Performing | Address | City/State/Zipcode | Phone Number | | Organization | | | | + + + + + | [facility] | [address] | [place] [address] | [phone] | + + + + + Fibrinogen (02/15/2019 1:45 PM PDT) + + + + + + | Component | Value | Ref Range | Performed | Pathologist | | | | | At | Signature | + + + + + + | Fibrinogen | 434Comment: Testing | 200 - 450 mg/dL | [facility] | | | | performed at [facility];[address] | | LABORATORY | | | | [address];[place] | | | | | | [address] | | | | + + + + + + + + | Specimen | + + | Blood | + + + + + + + | Performing | Address | City/State/Zipcode | Phone Number | | Organization | | | | + + + + + | [facility] | [address] | [place] [address] | [phone] | + + + + + CBC with Differential (02/15/2019 1:45 PM PDT) + + + + + + | Component | Value | Ref Range | Performed | Pathologist | | | | | At | Signature | + + + + + + | WBC | 17.53 (H) | 3.80 - 11.00 | [facility] | | | | | K/uL | LABORATORY | | + + + + + + | RBC | 4.09 (L) | 4.20 - 5.70 | [facility] | | | | | M/uL | LABORATORY | | + + + + + + | Hemoglobin | 12.8 (L) | 13.2 - 17.0 | [facility] | | | | | g/dL | LABORATORY | | + + + + + + | Hematocrit | 37.7 (L) | 39.0 - 50.0 % | [facility] | | | | | | LABORATORY | | + + + + + + | MCV | 92.2 | 80.0 - 100.0 fl | [facility] | | | | | | LABORATORY | | + + + + + + | MCH | 31.3 | 27.0 - 34.0 pg | [facility] | | | | | | LABORATORY | | + + + + + + | MCHC | 34.0 | 32.0 - 35.5 | [facility] | | | | | g/dL | LABORATORY | | + + + + + + | RDW-SD | 44.6 | 37 - 53 fl | [facility] | | | | | | LABORATORY | | + + + + + + | Platelet | 131 (L) | 150 - 400 K/uL | [facility] | | | Count | | | LABORATORY | | + + + + + + | MPV | 8.3 | fl | [facility] | | | | | | LABORATORY | | + + + + + + | Diff Type | AUTOMATED | | [facility] | | | | | | LABORATORY | | + + + + + + | % | 85.82 | % | [facility] | | | Neutrophils | | | LABORATORY | | + + + + + + | % | 6.30 | % | [facility] | | | Lymphocytes | | | LABORATORY | | + + + + + + | Monocyte % | 7.20 | % | [facility] | | | | | | LABORATORY | | + + + + + + | Eosinophils | 0.51 | % | [facility] | | | % | | | LABORATORY | | + + + + + + | Basophils % | 0.17 | % | [facility] | | | | | | LABORATORY | | + + + + + + | Neutrophils | 15.05 (H) | 1.90 - 7.40 | [facility] | | | , Absolute | | K/uL | LABORATORY | | + + + + + + | Absolute | 1.11 | 1.00 - 3.90 | [facility] | | | Lymphocytes | | K/uL | LABORATORY | | + + + + + + | Absolute | 1.26 (H) | 0.00 - 0.80 | [facility] | | | Monocytes | | K/uL | LABORATORY | | + + + + + + | Eosinophils | 0.09 | 0.00 - 0.50 | [facility] | | | , Absolute | | K/uL | LABORATORY | | + + + + + + | Basophils, | 0.03 | 0.00 - 0.10 | [facility] | | | Absolute | | K/uL | LABORATORY | | + + + + + + | RBC | RBC AND PLT MORPHOLOGY | | [facility] | | | Morphology | APPEAR NORMAL | | LABORATORY | | + + + + + + | Comment | SLIDE SCANNED, AGREES | | [facility] | | | | WITH AUTOMATED | | LABORATORY | | | | RESULTS.Comment: Testing | | | | | | performed at [facility];[address] | | | | | | [facility] | | | | | | [address] | | | | + + + + + + + + | Specimen | + + | Blood | + + + + + + + | Performing | Address | City/State/Zipcode | Phone Number | | Organization | | | | + + + + + | [facility] | [address] | [place] [address] | [phone] | + + + + + Basic Metabolic Panel (02/15/2019 1:45 PM PDT) + + + + + + | Component | Value | Ref Range | Performed | Pathologist | | | | | At | Signature | + + + + + + | Na | 150 (H) | 135 - 145 | [facility] | | | | | mmol/L | LABORATORY | | + + + + + + | K | 4.9 | 3.5 - 4.9 | [facility] | | | | | mmol/L | LABORATORY | | + + + + + + | Cl | 119 (H) | 99 - 109 mmol/L | [facility] | | | | | | LABORATORY | | + + + + + + | CO2 | 19 (L) | 23 - 32 mmol/L | [facility] | | | | | | LABORATORY | | + + + + + + | Anion Gap | 17 | 5 - 20 mmol/L | [facility] | | | | | | LABORATORY | | + + + + + + | Glucose | 160 (H) | 65 - 99 mg/dL | [facility] | | | | | | LABORATORY | | + + + + + + | BUN | 41 (H) | 8 - 25 mg/dL | [facility] | | | | | | LABORATORY | | + + + + + + | Creatinine | 1.86 (H) | 0.70 - 1.30 | [facility] | | | | | mg/dL | LABORATORY | | + + + + + + | BUN/Creatin | 22 | | [facility] | | | ine Ratio | | | LABORATORY | | + + + + + + | Calcium | 7.7 (L) | 8.5 - 10.5 | [facility] | | | | | mg/dL | LABORATORY | | + + + + + + | Estimated | 38 (L)Comment: GFR <60: | >60 | [facility] | | | GFR | CHRONIC KIDNEY DISEASE, | mL/min/1.73m2 | LABORATORY | | | | IF FOUND OVER A 3 MONTH | | | | | | PERIOD.GFR <15: KIDNEY | | | | | | FAILURE.FOR | | | | | | AMERICANS, MULTIPLY THE | | | | | | CALCULATED GFR BY | | | | | | 1.210.This eGFR is | | | | | | calculated using the | | | | | | MDRD IDMS traceable | | | | | | equation.Testing | | | | | | performed at [facility];[address] | | | | | [address];[place], [place] | | | | | | [id number] | | | | + + + + + + + + | Specimen | + + | Blood | + + + + + + + | Performing | Address | City/State/Zipcode | Phone Number | | Organization | | | | + + + + + | [facility] | [address] | [place] [address] | [phone] | + + + + + POC ISTAT, CG8, Arterial (02/15/2019 1:39 PM PDT) + + + + + + | Component | Value | Ref Range | Performed | Pathologist | | | | | At | Signature | + + + + + + | FiO2, POC | 30 | % | [facility] | | | | | | LABORATORY | | + + + + + + | pH, | 7.296 (L) | 7.350 - 7.450 | [facility] | | | Arterial, | | | LABORATORY | | | POC | | | | | + + + + + + | pCO2, | 36 | 35 - 45 mmHg | [facility] | | | Arterial | | | LABORATORY | | + + + + + + | pO2, | 90 | 80 - 105 mmHg | [facility] | | | Arterial | | | LABORATORY | | + + + + + + | HCO3, | 18 (L) | 22 - 26 mmol/L | [facility] | | | Arterial | | | LABORATORY | | + + + + + + | TCO2, | 19 (L) | 23 - 27 mEq/L | [facility] | | | Arterial, | | | LABORATORY | | | POC | | | | | + + + + + + | POC Base | 9 (H) | 0.0 - 2.0 | [facility] | | | Deficit | | mmol/L | LABORATORY | | | mmol/L | | | | | + + + + + + | SO2, | 96 | 95 - 98 % | [facility] | | | Arterial, | | | LABORATORY | | | POC | | | | | + + + + + + | Sodium, POC | 145 | 135 - 145 mEq/L | [facility] | | | | | | LABORATORY | | + + + + + + | Potassium, | 4.8 | 3.5 - 5.0 mEq/L | [facility] | | | POC | | | LABORATORY | | + + + + + + | Ionized | 1.19 | 1.12 - 1.32 | [facility] | | | Calcium, | | mmol/L | LABORATORY | | | POC | | | | | + + + + + + | Glucose, | 158 (H) | 65 - 99 mg/dL | [facility] | | | POC | | | LABORATORY | | + + + + + + | Hematocrit, | 34 (L) | 40.0 - 50.0 % | [facility] | | | POC | | | LABORATORY | | + + + + + + | Hemoglobin, | 11.6 (L)Comment: Testing | 13.7 - 16.7 | [facility] | | | POC | performed at [facility];[address] | g/dL | LABORATORY | | | | [address];[place], [place] | | | | | | [id number] | | | | + + + + + + + + | Specimen | + + | | + + + + + + + | Performing | Address | City/State/Zipcode | Phone Number | | Organization | | | | + + + + + | [facility] | [address] | [place] [address] | [phone] | + + + + + XR Chest AP Portable (02/15/2019 1:27 PM PDT) + + | Specimen | + + | | + + + + + | Impressions | Performed At | + + + | Tiny left apical pneumothorax measuring 3 mm. Postsurgical changes | [facility] | | as noted in the findings Signed by: Radha Avery, William Sign | | | Date/Time: 02/15/2019 1:59 PM | | + + + + + + | Narrative | Performed At | + + + | CHEST PORTABLE ONE VIEW CLINICAL INFORMATION: Post open | [facility] | | heart surgery. COMPARISON: XR CHEST PA AND LATERAL (02/14/2019); | | | FINDINGS: Patient is post sternotomy. Endotracheal tube tip | | | projects 4.1 cm above the fransico. Samaria-Roland catheter tip appears to | | | project at the right main pulmonary artery trunk region. Bilateral | | | chest tubes seen. NG tube is noted coursing below the diaphragm, tip | | | projecting at the proximal gastric fundus. Tiny left apical | | | pneumothorax measuring 3 mm. Cardiomediastinal silhouette appears | | | unremarkable. There appears to be mild pulmonary edema | | + + + + + | Procedure Note | + + | Ej, Rad Results In - 02/15/2019 2:02 PM PDT | | CHEST PORTABLE ONE VIEW | | | | CLINICAL INFORMATION: | | Post open heart surgery. | | | | COMPARISON: | | XR CHEST PA AND LATERAL (02/14/2019); | | | | FINDINGS: | | Patient is post sternotomy. Endotracheal tube tip projects 4.1 cm | | above the fransico. Samaria-Roland catheter tip appears to project at the | | right main pulmonary artery trunk region. Bilateral chest tubes seen. | | NG tube is noted coursing below the diaphragm, tip projecting at the | | proximal gastric fundus. | | | | Tiny left apical pneumothorax measuring 3 mm. Cardiomediastinal | | silhouette appears unremarkable. There appears to be mild pulmonary | | edema | | | | IMPRESSION: | | Tiny left apical pneumothorax measuring 3 mm. | | Postsurgical changes as noted in the findings | | | | | | | | Signed by: Radha Avery, William | | Sign Date/Time: 02/15/2019 1:59 PM | + + + +---------+ + + | Performing | Address | City/State/Zipcode | Phone Number | | Organization | | | | + +---------+ + + | [facility] | | | | + +---------+ + + Blood gas, Arterial (02/15/2019 1:27 PM PDT) + + + + + + | Component | Value | Ref Range | Performed | Pathologist | | | | | At | Signature | + + + + + + | FiO2, POC | 40 | % | [facility] | | | | | | LABORATORY | | + + + + + + | pH, | 7.284 (L) | 7.350 - 7.450 | [facility] | | | Arterial, | | | LABORATORY | | | POC | | | | | + + + + + + | pCO2, | 36 | 35 - 45 mmHg | [facility] | | | Arterial | | | LABORATORY | | + + + + + + | pO2, | 96 | 80 - 105 mmHg | [facility] | | | Arterial | | | LABORATORY | | + + + + + + | HCO3, | 17 (L) | 22 - 26 mmol/L | [facility] | | | Arterial | | | LABORATORY | | + + + + + + | TCO2, | 18 (L) | 23 - 27 mEq/L | [facility] | | | Arterial, | | | LABORATORY | | | POC | | | | | + + + + + + | POC Base | 10 (H) | 0.0 - 2.0 | [facility] | | | Deficit | | mmol/L | LABORATORY | | | mmol/L | | | | | + + + + + + | SO2, | 97Comment: Testing | 95 - 98 % | [facility] | | | Arterial, | performed at [facility];[address] | | LABORATORY | | | POC | [address];[place], [place] | | | | | | [address] | | | | + + + + + + + + | Specimen | + + | | + + + + + + + | Performing | Address | City/State/Zipcode | Phone Number | | Organization | | | | + + + + + | [facility] | [address] | [place] [address] | [phone] | + + + + + POC Glucose (02/15/2019 1:24 PM PDT) + + + + + + | Component | Value | Ref Range | Performed | Pathologist | | | | | At | Signature | + + + + + + | Glucose, | 164 (H)Comment: Testing | 65 - 99 mg/dL | [facility] | | | POC | performed at [facility];[address] | | LABORATORY | | | | [address];[place], [place] | | | | | | [address] | | | | + + + + + + + + | Specimen | + + | | + + + + + + + | Performing | Address | City/State/Zipcode | Phone Number | | Organization | | | | + + + + + | [facility] | [address] | [place] [address] | [phone] | + + + + + ECG 12 lead (02/15/2019 1:22 PM PDT) + + + + + + | Component | Value | Ref Range | Performed | Pathologist | | | | | At | Signature | + + + + + + | VENTRICULAR | 86 | BPM | [facility] | | | RATE EKG | | | | | + + + + + + | ATRIAL RATE | 86 | BPM | [facility] | | + + + + + + | P-R | 130 | ms | [facility] | | | INTERVAL | | | | | + + + + + + | QRS | 124 | ms | [facility] | | | DURATION | | | | | + + + + + + | Q-T | 426 | ms | [facility] | | | INTERVAL | | | | | + + + + + + | Q-T | 509 | ms | [facility] | | | INTERVAL | | | | | | (CORRECTED) | | | | | + + + + + + | P WAVE AXIS | 35 | degrees | [facility] | | + + + + + + | QRS AXIS | 97 | degrees | [facility] | | + + + + + + | T AXIS | -47 | degrees | [facility] | | + + + + + + | INTERPRETAT | Normal sinus | | [facility] | | | ION TEXT | rhythmRightward axisLeft | | | | | | posterior fascicular | | | | | | blockNon-specific | | | | | | intra-ventricular | | | | | | conduction delayST | | | | | | elevation consider | | | | | | anterior injury or acute | | | | | | infarctT wave | | | | | | abnormality, consider | | | | | | inferior | | | | | | ischemiaAbnormal ECGWhen | | | | | | compared with ECG of | | | | | | 02/14/19Inferior T wave | | | | | | inversions are more | | | | | | prominentConfirmed by | | | | | | Agapito Gómez MD ([id number]) | | | | | | on 02/15/2019 8:33:24 PM | | | | | | | | | | + + + + + + + + | Specimen | + + | | + + + + + | Narrative | Performed At | + + + | | | + + + + +---------+ + + | Performing | Address | City/State/Zipcode | Phone Number | | Organization | | | | + +---------+ + + | [facility] | | | | + +---------+ + + POC CG 4, ISTAT Arterial (02/15/2019 12:14 PM PDT) + + + + + + | Component | Value | Ref Range | Performed | Pathologist | | | | | At | Signature | + + + + + + | pH, | 7.325 (L) | 7.350 - 7.450 | [facility] | | | Arterial, | | | LABORATORY | | | POC | | | | | + + + + + + | pCO2, | 34 (L) | 35 - 45 mmHg | [facility] | | | Arterial | | | LABORATORY | | + + + + + + | pO2, | 192 (H) | 80 - 105 mmHg | [facility] | | | Arterial | | | LABORATORY | | + + + + + + | Lactate, | 2.98 (H) | 0.36 - 1.25 | [facility] | | | Arterial, | | mmol/L | LABORATORY | | | POC | | | | | + + + + + + | HCO3, | 18 (L) | 22 - 26 mmol/L | [facility] | | | Arterial | | | LABORATORY | | + + + + + + | TCO2, | 19 (L) | 23 - 27 mEq/L | [facility] | | | Arterial, | | | LABORATORY | | | POC | | | | | + + + + + + | POC Base | 8 (H) | 0.0 - 2.0 | [facility] | | | Deficit | | mmol/L | LABORATORY | | | mmol/L | | | | | + + + + + + | SO2, | 100 (H)Comment: Testing | 95 - 98 % | [facility] | | | Arterial, | performed at [facility];[address] | | LABORATORY | | | POC | [address];[place] | | | | | | [address] | | | | + + + + + + + + | Specimen | + + | | + + + + + + + | Performing | Address | City/State/Zipcode | Phone Number | | Organization | | | | + + + + + | [facility] | [address] | [place] [address] | [phone] | + + + + + POC ISLEISA, CG8, Arterial (02/15/2019 12:09 PM PDT) + + + + + + | Component | Value | Ref Range | Performed | Pathologist | | | | | At | Signature | + + + + + + | pH, | 7.336 (L) | 7.350 - 7.450 | [facility] | | | Arterial, | | | LABORATORY | | | POC | | | | | + + + + + + | pCO2, | 34 (L) | 35 - 45 mmHg | [facility] | | | Arterial | | | LABORATORY | | + + + + + + | pO2, | 172 (H) | 80 - 105 mmHg | [facility] | | | Arterial | | | LABORATORY | | + + + + + + | HCO3, | 18 (L) | 22 - 26 mmol/L | [facility] | | | Arterial | | | LABORATORY | | + + + + + + | TCO2, | 19 (L) | 23 - 27 mEq/L | [facility] | | | Arterial, | | | LABORATORY | | | POC | | | | | + + + + + + | POC Base | 8 (H) | 0.0 - 2.0 | [facility] | | | Deficit | | mmol/L | LABORATORY | | | mmol/L | | | | | + + + + + + | SO2, | 99 (H) | 95 - 98 % | [facility] | | | Arterial, | | | LABORATORY | | | POC | | | | | + + + + + + | Sodium, POC | 141 | 135 - 145 mEq/L | [facility] | | | | | | LABORATORY | | + + + + + + | Potassium, | 5.6 (H) | 3.5 - 5.0 mEq/L | [facility] | | | POC | | | LABORATORY | | + + + + + + | Ionized | 1.21 | 1.12 - 1.32 | [facility] | | | Calcium, | | mmol/L | LABORATORY | | | POC | | | | | + + + + + + | Glucose, | 157 (H) | 65 - 99 mg/dL | [facility] | | | POC | | | LABORATORY | | + + + + + + | Hematocrit, | 25 (L) | 40.0 - 50.0 % | [facility] | | | POC | | | LABORATORY | | + + + + + + | Hemoglobin, | 8.5 (L)Comment: Testing | 13.7 - 16.7 | [facility] | | | POC | performed at [facility];[address] | g/dL | LABORATORY | | | | [address];[place], [place] | | | | | | [address] | | | | + + + + + + + + | Specimen | + + | | + + + + + + + | Performing | Address | City/State/Zipcode | Phone Number | | Organization | | | | + + + + + | [facility] | [address] | [place] [address] | [phone] | + + + + + POC CG 4, ISTAT Arterial (02/15/2019 11:35 AM PDT) + + + + + + | Component | Value | Ref Range | Performed | Pathologist | | | | | At | Signature | + + + + + + | pH, | 7.331 (L) | 7.350 - 7.450 | [facility] | | | Arterial, | | | LABORATORY | | | POC | | | | | + + + + + + | pCO2, | 40 | 35 - 45 mmHg | [facility] | | | Arterial | | | LABORATORY | | + + + + + + | pO2, | 244 (HH) | 80 - 105 mmHg | [facility] | | | Arterial | | | LABORATORY | | + + + + + + | Lactate, | 1.73 (H) | 0.36 - 1.25 | [facility] | | | Arterial, | | mmol/L | LABORATORY | | | POC | | | | | + + + + + + | HCO3, | 21 (L) | 22 - 26 mmol/L | [facility] | | | Arterial | | | LABORATORY | | + + + + + + | TCO2, | 22 (L) | 23 - 27 mEq/L | [facility] | | | Arterial, | | | LABORATORY | | | POC | | | | | + + + + + + | POC Base | 5 (H) | 0.0 - 2.0 | [facility] | | | Deficit | | mmol/L | LABORATORY | | | mmol/L | | | | | + + + + + + | SO2, | 100 (H)Comment: Testing | 95 - 98 % | [facility] | | | Arterial, | performed at [facility];[address] | | LABORATORY | | | POC | [address];[place], [place] | | | | | | [address] | | | | + + + + + + + + | Specimen | + + | | + + + + + + + | Performing | Address | City/State/Zipcode | Phone Number | | Organization | | | | + + + + + | [facility] | [address] | [place] [address] | [phone] | + + + + + POC ISLEISA CG8, Arterial (02/15/2019 11:31 AM PDT) + + + + + + | Component | Value | Ref Range | Performed | Pathologist | | | | | At | Signature | + + + + + + | pH, | 7.337 (L) | 7.350 - 7.450 | [facility] | | | Arterial, | | | LABORATORY | | | POC | | | | | + + + + + + | pCO2, | 40 | 35 - 45 mmHg | [facility] | | | Arterial | | | LABORATORY | | + + + + + + | pO2, | 236 (HH) | 80 - 105 mmHg | [facility] | | | Arterial | | | LABORATORY | | + + + + + + | HCO3, | 21 (L) | 22 - 26 mmol/L | [facility] | | | Arterial | | | LABORATORY | | + + + + + + | TCO2, | 23 | 23 - 27 mEq/L | [facility] | | | Arterial, | | | LABORATORY | | | POC | | | | | + + + + + + | POC Base | 4 (H) | 0.0 - 2.0 | [facility] | | | Deficit | | mmol/L | LABORATORY | | | mmol/L | | | | | + + + + + + | SO2, | 100 (H) | 95 - 98 % | [facility] | | | Arterial, | | | LABORATORY | | | POC | | | | | + + + + + + | Sodium, POC | 140 | 135 - 145 mEq/L | [facility] | | | | | | LABORATORY | | + + + + + + | Potassium, | 7.0 (HH) | 3.5 - 5.0 mEq/L | [facility] | | | POC | | | LABORATORY | | + + + + + + | Ionized | 1.05 (L) | 1.12 - 1.32 | [facility] | | | Calcium, | | mmol/L | LABORATORY | | | POC | | | | | + + + + + + | Glucose, | 150 (H) | 65 - 99 mg/dL | [facility] | | | POC | | | LABORATORY | | + + + + + + | Hematocrit, | 26 (L) | 40.0 - 50.0 % | [facility] | | | POC | | | LABORATORY | | + + + + + + | Hemoglobin, | 8.8 (L)Comment: Testing | 13.7 - 16.7 | [facility] | | | POC | performed at [facility];888 | g/dL | LABORATORY | | | | [address];[place], [place] | | | | | | [address] | | | | + + + + + + + + | Specimen | + + | | + + + + + + + | Performing | Address | City/State/Zipcode | Phone Number | | Organization | | | | + + + + + | [facility] | [address] | [place] [address] | [phone] | + + + + + POC ISTAT, CG8, Arterial (02/15/2019 11:10 AM PDT) + + + + + + | Component | Value | Ref Range | Performed | Pathologist | | | | | At | Signature | + + + + + + | pH, | 7.366 | 7.350 - 7.450 | [facility] | | | Arterial, | | | LABORATORY | | | POC | | | | | + + + + + + | pCO2, | 44 | 35 - 45 mmHg | [facility] | | | Arterial | | | LABORATORY | | + + + + + + | pO2, | 267 (HH) | 80 - 105 mmHg | [facility] | | | Arterial | | | LABORATORY | | + + + + + + | HCO3, | 25 | 22 - 26 mmol/L | [facility] | | | Arterial | | | LABORATORY | | + + + + + + | TCO2, | 27 | 23 - 27 mEq/L | [facility] | | | Arterial, | | | LABORATORY | | | POC | | | | | + + + + + + | Base | 0 | 0 - 3 mEq/L | [facility] | | | Excess, POC | | | LABORATORY | | + + + + + + | SO2, | 100 (H) | 95 - 98 % | [facility] | | | Arterial, | | | LABORATORY | | | POC | | | | | + + + + + + | Sodium, POC | 142 | 135 - 145 mEq/L | [facility] | | | | | | LABORATORY | | + + + + + + | Potassium, | 6.3 (HH) | 3.5 - 5.0 mEq/L | [facility] | | | POC | | | LABORATORY | | + + + + + + | Ionized | 1.04 (L) | 1.12 - 1.32 | [facility] | | | Calcium, | | mmol/L | LABORATORY | | | POC | | | | | + + + + + + | Glucose, | 145 (H) | 65 - 99 mg/dL | [facility] | | | POC | | | LABORATORY | | + + + + + + | Hematocrit, | 25 (L) | 40.0 - 50.0 % | [facility] | | | POC | | | LABORATORY | | + + + + + + | Hemoglobin, | 8.5 (L)Comment: Testing | 13.7 - 16.7 | [facility] | | | POC | performed at [facility];888 | g/dL | LABORATORY | | | | [address];[place], [place] | | | | | | [address] | | | | + + + + + + + + | Specimen | + + | | + + + + + + + | Performing | Address | City/State/Zipcode | Phone Number | | Organization | | | | + + + + + | [facility] | [address] | [place] [address] | [phone] | + + + + + POC CG 4, ISTAT Arterial (02/15/2019 10:59 AM PDT) + + + + + + | Component | Value | Ref Range | Performed | Pathologist | | | | | At | Signature | + + + + + + | pH, | 7.310 (L) | 7.350 - 7.450 | [facility] | | | Arterial, | | | LABORATORY | | | POC | | | | | + + + + + + | pCO2, | 40 | 35 - 45 mmHg | [facility] | | | Arterial | | | LABORATORY | | + + + + + + | pO2, | 298 (HH) | 80 - 105 mmHg | [facility] | | | Arterial | | | LABORATORY | | + + + + + + | Lactate, | 1.37 (H) | 0.36 - 1.25 | [facility] | | | Arterial, | | mmol/L | LABORATORY | | | POC | | | | | + + + + + + | HCO3, | 20 (L) | 22 - 26 mmol/L | [facility] | | | Arterial | | | LABORATORY | | + + + + + + | TCO2, | 21 (L) | 23 - 27 mEq/L | [facility] | | | Arterial, | | | LABORATORY | | | POC | | | | | + + + + + + | POC Base | 6 (H) | 0.0 - 2.0 | [facility] | | | Deficit | | mmol/L | LABORATORY | | | mmol/L | | | | | + + + + + + | SO2, | 100 (H)Comment: Testing | 95 - 98 % | [facility] | | | Arterial, | performed at [facility];[address] | | LABORATORY | | | POC | [address];[place], [place] | | | | | | [address] | | | | + + + + + + + + | Specimen | + + | | + + + + + + + | Performing | Address | City/State/Zipcode | Phone Number | | Organization | | | | + + + + + | [facility] | [address] | [place] [address] | [phone] | + + + + + POC ISTAT, CG8, Arterial (02/15/2019 10:52 AM PDT) + + + + + + | Component | Value | Ref Range | Performed | Pathologist | | | | | At | Signature | + + + + + + | pH, | 7.298 (L) | 7.350 - 7.450 | [facility] | | | Arterial, | | | LABORATORY | | | POC | | | | | + + + + + + | pCO2, | 46 (H) | 35 - 45 mmHg | [facility] | | | Arterial | | | LABORATORY | | + + + + + + | pO2, | 310 (HH) | 80 - 105 mmHg | [facility] | | | Arterial | | | LABORATORY | | + + + + + + | HCO3, | 22 | 22 - 26 mmol/L | [facility] | | | Arterial | | | LABORATORY | | + + + + + + | TCO2, | 24 | 23 - 27 mEq/L | [facility] | | | Arterial, | | | LABORATORY | | | POC | | | | | + + + + + + | POC Base | 4 (H) | 0.0 - 2.0 | [facility] | | | Deficit | | mmol/L | LABORATORY | | | mmol/L | | | | | + + + + + + | SO2, | 100 (H) | 95 - 98 % | [facility] | | | Arterial, | | | LABORATORY | | | POC | | | | | + + + + + + | Sodium, POC | 139 | 135 - 145 mEq/L | [facility] | | | | | | LABORATORY | | + + + + + + | Potassium, | 6.4 (HH) | 3.5 - 5.0 mEq/L | [facility] | | | POC | | | LABORATORY | | + + + + + + | Ionized | 1.07 (L) | 1.12 - 1.32 | [facility] | | | Calcium, | | mmol/L | LABORATORY | | | POC | | | | | + + + + + + | Glucose, | 137 (H) | 65 - 99 mg/dL | [facility] | | | POC | | | LABORATORY | | + + + + + + | Hematocrit, | 22 (LL) | 40.0 - 50.0 % | [facility] | | | POC | | | LABORATORY | | + + + + + + | Hemoglobin, | 7.5 (LL)Comment: Testing | 13.7 - 16.7 | [facility] | | | POC | performed at [facility];888 | g/dL | LABORATORY | | | | [address];[place], [place] | | | | | | [address] | | | | + + + + + + + + | Specimen | + + | | + + + + + + + | Performing | Address | City/State/Zipcode | Phone Number | | Organization | | | | + + + + + | [facility] | [address] | [place] [address] | [phone] | + + + + + POC FAM GUERRA Venous (02/15/2019 10:21 AM PDT) + + + + + + | Component | Value | Ref Range | Performed | Pathologist | | | | | At | Signature | + + + + + + | pH, Venous, | 7.301 (L) | 7.310 - 7.410 | [facility] | | | POC | | | LABORATORY | | + + + + + + | PCO2, | 42 | 41 - 51 mmHG | [facility] | | | Venous, POC | | | LABORATORY | | + + + + + + | pO2, Venous | 50 (H) | 30 - 40 mmHG | [facility] | | | | | | LABORATORY | | + + + + + + | HCO3, | 21 (L) | 23 - 28 mmol/L | [facility] | | | Venous | | | LABORATORY | | + + + + + + | TCO2, POC | 22 (L) | 24 - 29 mEq/L | [facility] | | | | | | LABORATORY | | + + + + + + | POC Base | 6 (H) | 0.0 - 2.0 | [facility] | | | Deficit | | mmol/L | LABORATORY | | | mmol/L | | | | | + + + + + + | POC | 81.0 | 60 - 85 % | [facility] | | | SO2.BLDV.QN | | | LABORATORY | | | .(%) | | | | | + + + + + + | Sodium, POC | 139 | 135 - 145 mEq/L | [facility] | | | | | | LABORATORY | | + + + + + + | Potassium, | 6.8 (HH) | 3.5 - 5.0 mEq/L | [facility] | | | POC | | | LABORATORY | | + + + + + + | Ionized | 1.06 (L) | 1.12 - 1.32 | [facility] | | | Calcium, | | mmol/L | LABORATORY | | | POC | | | | | + + + + + + | Glucose, | 122 (H) | 65 - 99 mg/dL | [facility] | | | POC | | | LABORATORY | | + + + + + + | Hematocrit, | 26 (L) | 40.0 - 50.0 % | [facility] | | | POC | | | LABORATORY | | + + + + + + | Hemoglobin, | 8.8 (L)Comment: Testing | 13.7 - 16.7 | [facility] | | | POC | performed at [facility];888 | g/dL | LABORATORY | | | | [address];[place] | | | | | | [address] | | | | + + + + + + + + | Specimen | + + | | + + + + + + + | Performing | Address | City/State/Zipcode | Phone Number | | Organization | | | | + + + + + | [facility] | [address] | [place] [address] | [phone] | + + + + + POC ISTAT, CG8, Arterial (02/15/2019 10:07 AM PDT) + + + + + + | Component | Value | Ref Range | Performed | Pathologist | | | | | At | Signature | + + + + + + | pH, | 7.345 (L) | 7.350 - 7.450 | [facility] | | | Arterial, | | | LABORATORY | | | POC | | | | | + + + + + + | pCO2, | 42 | 35 - 45 mmHg | [facility] | | | Arterial | | | LABORATORY | | + + + + + + | pO2, | 339 (HH) | 80 - 105 mmHg | [facility] | | | Arterial | | | LABORATORY | | + + + + + + | HCO3, | 23 | 22 - 26 mmol/L | [facility] | | | Arterial | | | LABORATORY | | + + + + + + | TCO2, | 24 | 23 - 27 mEq/L | [facility] | | | Arterial, | | | LABORATORY | | | POC | | | | | + + + + + + | POC Base | 3 (H) | 0.0 - 2.0 | [facility] | | | Deficit | | mmol/L | LABORATORY | | | mmol/L | | | | | + + + + + + | SO2, | 100 (H) | 95 - 98 % | [facility] | | | Arterial, | | | LABORATORY | | | POC | | | | | + + + + + + | Sodium, POC | 139 | 135 - 145 mEq/L | [facility] | | | | | | LABORATORY | | + + + + + + | Potassium, | 4.6 | 3.5 - 5.0 mEq/L | [facility] | | | POC | | | LABORATORY | | + + + + + + | Ionized | 1.00 (L) | 1.12 - 1.32 | [facility] | | | Calcium, | | mmol/L | LABORATORY | | | POC | | | | | + + + + + + | Glucose, | 114 (H) | 65 - 99 mg/dL | [facility] | | | POC | | | LABORATORY | | + + + + + + | Hematocrit, | 26 (L) | 40.0 - 50.0 % | [facility] | | | POC | | | LABORATORY | | + + + + + + | Hemoglobin, | 8.8 (L)Comment: Testing | 13.7 - 16.7 | [facility] | | | POC | performed at [facility];888 | g/dL | LABORATORY | | | | [address];[place], [place] | | | | | | [address] | | | | + + + + + + + + | Specimen | + + | | + + + + + + + | Performing | Address | City/State/Zipcode | Phone Number | | Organization | | | | + + + + + | [facility] | [address] | [place] [address] | [phone] | + + + + + POC ISTAT, CG8, Arterial (02/15/2019 9:43 AM PDT) + + + + + + | Component | Value | Ref Range | Performed | Pathologist | | | | | At | Signature | + + + + + + | pH, | 7.314 (L) | 7.350 - 7.450 | [facility] | | | Arterial, | | | LABORATORY | | | POC | | | | | + + + + + + | pCO2, | 41 | 35 - 45 mmHg | [facility] | | | Arterial | | | LABORATORY | | + + + + + + | pO2, | 267 (HH) | 80 - 105 mmHg | [facility] | | | Arterial | | | LABORATORY | | + + + + + + | HCO3, | 21 (L) | 22 - 26 mmol/L | [facility] | | | Arterial | | | LABORATORY | | + + + + + + | TCO2, | 22 (L) | 23 - 27 mEq/L | [facility] | | | Arterial, | | | LABORATORY | | | POC | | | | | + + + + + + | POC Base | 5 (H) | 0.0 - 2.0 | [facility] | | | Deficit | | mmol/L | LABORATORY | | | mmol/L | | | | | + + + + + + | SO2, | 100 (H) | 95 - 98 % | [facility] | | | Arterial, | | | LABORATORY | | | POC | | | | | + + + + + + | Sodium, POC | 142 | 135 - 145 mEq/L | [facility] | | | | | | LABORATORY | | + + + + + + | Potassium, | 4.6 | 3.5 - 5.0 mEq/L | [facility] | | | POC | | | LABORATORY | | + + + + + + | Ionized | 1.13 | 1.12 - 1.32 | [facility] | | | Calcium, | | mmol/L | LABORATORY | | | POC | | | | | + + + + + + | Glucose, | 123 (H) | 65 - 99 mg/dL | [facility] | | | POC | | | LABORATORY | | + + + + + + | Hematocrit, | 28 (L) | 40.0 - 50.0 % | [facility] | | | POC | | | LABORATORY | | + + + + + + | Hemoglobin, | 9.5 (L)Comment: Testing | 13.7 - 16.7 | [facility] | | | POC | performed at [facility];888 | g/dL | LABORATORY | | | | [address];[place] | | | | | | [id number] | | | | + + + + + + + + | Specimen | + + | | + + + + + + + | Performing | Address | City/State/Zipcode | Phone Number | | Organization | | | | + + + + + | [facility] | [address] | [place] [address] | [phone] | + + + + + POC DENIS [id number], Arterial (02/15/2019 9:04 AM PDT) + + + + + + | Component | Value | Ref Range | Performed | Pathologist | | | | | At | Signature | + + + + + + | pH, | 7.221 (LL) | 7.350 - 7.450 | [facility] | | | Arterial, | | | LABORATORY | | | POC | | | | | + + + + + + | pCO2, | 50 (H) | 35 - 45 mmHg | [facility] | | | Arterial | | | LABORATORY | | + + + + + + | pO2, | 247 (HH) | 80 - 105 mmHg | [facility] | | | Arterial | | | LABORATORY | | + + + + + + | HCO3, | 21 (L) | 22 - 26 mmol/L | [facility] | | | Arterial | | | LABORATORY | | + + + + + + | TCO2, | 22 (L) | 23 - 27 mEq/L | [facility] | | | Arterial, | | | LABORATORY | | | POC | | | | | + + + + + + | POC Base | 7 (H) | 0.0 - 2.0 | [facility] | | | Deficit | | mmol/L | LABORATORY | | | mmol/L | | | | | + + + + + + | SO2, | 100 (H) | 95 - 98 % | [facility] | | | Arterial, | | | LABORATORY | | | POC | | | | | + + + + + + | Sodium, POC | 141 | 135 - 145 mEq/L | [facility] | | | | | | LABORATORY | | + + + + + + | Potassium, | 4.5 | 3.5 - 5.0 mEq/L | [facility] | | | POC | | | LABORATORY | | + + + + + + | Ionized | 1.21 | 1.12 - 1.32 | [facility] | | | Calcium, | | mmol/L | LABORATORY | | | POC | | | | | + + + + + + | Glucose, | 114 (H) | 65 - 99 mg/dL | [facility] | | | POC | | | LABORATORY | | + + + + + + | Hematocrit, | 24 (L) | 40.0 - 50.0 % | [facility] | | | POC | | | LABORATORY | | + + + + + + | Hemoglobin, | 8.2 (L)Comment: Testing | 13.7 - 16.7 | [facility] | | | POC | performed at [facility];888 | g/dL | LABORATORY | | | | [address];[place] | | | | | | [id number] | | | | + + + + + + + + | Specimen | + + | | + + + + + + + | Performing | Address | City/State/Zipcode | Phone Number | | Organization | | | | + + + + + | [facility] | [address] | [place] [address] | [phone] | + + + + + POC CG 4, ISLEISA Arterial (02/15/2019 7:53 AM PDT) + + + + + + | Component | Value | Ref Range | Performed | Pathologist | | | | | At | Signature | + + + + + + | pH, | 7.293 (L) | 7.350 - 7.450 | [facility] | | | Arterial, | | | LABORATORY | | | POC | | | | | + + + + + + | pCO2, | 36 | 35 - 45 mmHg | [facility] | | | Arterial | | | LABORATORY | | + + + + + + | pO2, | 182 (H) | 80 - 105 mmHg | [facility] | | | Arterial | | | LABORATORY | | + + + + + + | Lactate, | 0.56 | 0.36 - 1.25 | [facility] | | | Arterial, | | mmol/L | LABORATORY | | | POC | | | | | + + + + + + | HCO3, | 18 (L) | 22 - 26 mmol/L | [facility] | | | Arterial | | | LABORATORY | | + + + + + + | TCO2, | 19 (L) | 23 - 27 mEq/L | [facility] | | | Arterial, | | | LABORATORY | | | POC | | | | | + + + + + + | POC Base | 9 (H) | 0.0 - 2.0 | [facility] | | | Deficit | | mmol/L | LABORATORY | | | mmol/L | | | | | + + + + + + | SO2, | 99 (H)Comment: Testing | 95 - 98 % | [facility] | | | Arterial, | performed at [facility];[address] | | LABORATORY | | | POC [address];[place], [place] | | | | | | [id number] | | | | + + + + + + + + | Specimen | + + | | + + + + + + + | Performing | Address | City/State/Zipcode | Phone Number | | Organization | | | | + + + + + | [facility] LABORATORY | [address] [facility] | [place] [address] | [phone] | + + + + + FAM MCKEON, Arterial (02/15/2019 7:50 AM PDT) + + + + + + | Component | Value | Ref Range | Performed | Pathologist | | | | | At | Signature | + + + + + + | pH, | 7.305 (L) | 7.350 - 7.450 | [facility] | | | Arterial, | | | LABORATORY | | | POC | | | | | + + + + + + | pCO2, | 38 | 35 - 45 mmHg | [facility] | | | Arterial | | | LABORATORY | | + + + + + + | pO2, | 174 (H) | 80 - 105 mmHg | [facility] | | | Arterial | | | LABORATORY | | + + + + + + | HCO3, | 19 (L) | 22 - 26 mmol/L | [facility] | | | Arterial | | | LABORATORY | | + + + + + + | TCO2, | 20 (L) | 23 - 27 mEq/L | [facility] | | | Arterial, | | | LABORATORY | | | POC | | | | | + + + + + + | POC Base | 7 (H) | 0.0 - 2.0 | [facility] | | | Deficit | | mmol/L | LABORATORY | | | mmol/L | | | | | + + + + + + | SO2, | 99 (H) | 95 - 98 % | [facility] | | | Arterial, | | | LABORATORY | | | POC | | | | | + + + + + + | Sodium, POC | 141 | 135 - 145 mEq/L | [facility] | | | | | | LABORATORY | | + + + + + + | Potassium, | 4.4 | 3.5 - 5.0 mEq/L | [facility] | | | POC | | | LABORATORY | | + + + + + + | Ionized | 1.25 | 1.12 - 1.32 | [facility] | | | Calcium, | | mmol/L | LABORATORY | | | POC | | | | | + + + + + + | Glucose, | 103 (H) | 65 - 99 mg/dL | [facility] | | | POC | | | LABORATORY | | + + + + + + | Hematocrit, | 29 (L) | 40.0 - 50.0 % | [facility] | | | POC | | | LABORATORY | | + + + + + + | Hemoglobin, | 9.9 (L)Comment: Testing | 13.7 - 16.7 | [facility] | | | POC | performed at [facility];888 | g/dL | LABORATORY | | | | [address];[place], [place] | | | | | | [address] | | | | + + + + + + + + | Specimen | + + | | + + + + + + + | Performing | Address | City/State/Zipcode | Phone Number | | Organization | | | | + + + + + | [facility] | [address] | [place] [address] | [phone] | + + + + + ECHO Transesophageal (SHALA) - Periop (02/15/2019 7:41 AM PDT) + +-------+ + + + | Component | Value | Ref Range | Performed | Pathologist | | | | | At | Signature | + +-------+ + + + | LVEF-SHALA | 30 | | [facility] | | | TRANSESOPHA | | | | | | GEAL ECHO | | | | | + +-------+ + + + + + | Specimen | + + | | + + + +- + | Narrative | Performed At | + +- + | | [facility] | | Transesophageal Echocardiography Report (SHALA) Demographics Patient | | | Name BOB MANCINI Room Number 58824 | | | Patient Number [id number] Date of Study | | | 02/15/2019 Visit Number [id number] Referring | | | Physician LUISANA ALCALA Accession Number [id number] | | | Compliance Reviewer Date of 1965 Interpreting | | | Physician Ed Elmore Age 53 year(s) | | | Nurse Gender Male Stress | | | 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 Procedure DateDate: 02/15/2019 Start: 07:41 AM Study | | | Location: ORTechnical Quality: Adequate visualization Patient Status: | | | Routine Height: 70.87 inches Weight: 208.12 pounds BSA: 2.14 m^2 BMI: | | | 29.14 kg/m^2 Rhythm: Normal Sinus Rhythm HR: 75 bpm BP: 110/70 mmHg | | | Conclusions Summary Severely depressed baseline LV global systolic | | | function with multiple RWMAs as documented below. LVEF = 25-30%. Mild | | | MR. Mild AI. Hbcw-yi-puigqvoo TR. Mild PI. Ziuemckk-mk-duotzf PAH. | | | Bilateral pleural effusions (drained intraoperatively). Mildly | | | improved global & regional function post-CABG on low-dose epinephrine | | | infusion. Signature | | | | | | Electronically signed by Ed Elmore (Interpreting physician) on | | | 02/15/2019 at 02:09 PM | | | SHALA | | | Performed By: Dr. Gaming Type of Anesthesia: General anesthesia | | | Cardiac Chambers RA: Normal | | | LV: Markedly dilated LV LA: Markedly dilated LA | | | RV: Normal RV size Global RV Function: Normal Global LV Function: | | | Severely depressed Ascending Ao: Mild-mod atherosclerosis Aortic | | | Arch: Mild-mod atherosclerosis Descending Ao: Mild-mod atherosclerosis | | | Atrial Septum: Normal Structures Left Atrium LA Dimension: 5.3 cm | | | Left Atrium Findings Moderate left atrial enlargement. Absent | | | thrombus. Appendage appears normal and without thrombus. Interatrial | | | septum appears normal without evidence of shunt via CFM. Left | | | Ventricle Diastolic Dimension: 5.6 cm Systolic | | | Dimension: 4.54 cm PW Diastolic: 0.82 cm EF Estimated: 30% | | | FS: 18.9 % LV EDV/LV EDV Index: 133.04 ml/62 m^2 LV | | | ESV/LV ESV Index: 77.05 ml/36 m^2 EF Calculated: 42.1% | | | LV Length: 9.56 cm | | | CI: 2.14 l/min*m^2 CO: 4.57 l/min LVOT Diameter: | | | 2.62 cm Left Ventricle Findings (+)spontaneous echo contrast in LV. | | | At least moderate left ventricular dilation with internal diastolic | | | dimensions above 5cm. Borderline mild eccentric hypertrophy. Severe | | | global systolic dysfunction with LVEF = 25-30%. Globalized moderate | | | hypokinesis; severe hypokinesis of basal + mid inferior, mid anterior, | | | and apical inferolateral segments; akinesis of apical anterior, | | | apical inferior, and apex segments. Right Atrium RA Dimension: 4.9 | | | cm RA Systolic Pressure: 17 mmHg Right Atrium Findings Normal right | | | atrial size. (+)spontaneous echo contrast. Right Ventricle | | | RV Systolic Pressure: 53.78 | | | mmHg Right Ventricle Findings Normal right ventricular size and | | | function. MiscellaneousAorta Ascending Aorta: 2.99 cm | | | Aortic Arch: 2.47 cm LVOT Diameter: 2.62 cm | | | Descending Aorta: 2.17 cm Pulmonary Vein: S Velocity: 31.31 cm/s | | | A Reversal Velocity: 19.89 cm/s D Velocity: 53.68 cm/s | | | A Reversal Duration: 129.2 msec Miscellaneous FindingsMild | | | thoracic aortic atherosclerosis.Post-CPB, s/p CABG x4 findings: | | | improved global LV systolic function (onepinephrine infusion). LVEF = | | | 35-40%. Generalized hypokinesis persists, butapical anterior and | | | apical inferior segments are improved to severehypokinesis, mid | | | anterior improved to mild HK; other segments remainunchanged. TR | | | improved to mild. MR is improved from mild to trace. AI isimproved | | | from mild to absent. No evidence of aortic dissection. Examotherwise | | | unchanged. Pericardium Pericardial Effusion Findings No evidence of | | | pericardial effusion. Pleura Pleural Effusion Findings Moderate | | | right pleural effusion noted. Valves Mitral Valve Peak E-Wave: 83.12 | | | cm/s Peak A-Wave: 40.87 cm/s Mean Velocity: | | | 29.82 cm/s E/A Ratio: 2.03 Mean Gradient: 0.55 | | | mmHg Peak Gradient: 2.32 mmHg | | | Deceleration Time: 78.8 msec | | | MR Velocity: 387.56 cm/s Area (continuity): 4.77 | | | cm^2 Tissue Doppler E' Septal Velocity: 7.2 cm/s Mitral Valve | | | Findings MV annulus = 3.3cm. Mild annular & leaflet calcification. | | | Mild mitral regurgitation, centrally-directed jet. Absent mitral | | | stenosis with mean grad = 1mmHg. Aortic Valve Peak Velocity: 95.88 | | | cm/s Mean Velocity: 72.06 cm/s Peak Gradient: 3.68 | | | mmHg Mean Gradient: 2.36 mmHg Area (continuity): | | | 2.91 cm^2 Area (2D): 4.26 cm^2 AV VTI: 20.94 cm Aortic | | | Valve Findings Tri-leaflet valve. AV annulus = 23mm. Mild annular & | | | leaflet calcification. Mild aortic insufficiency. Absent aortic | | | stenosis (GERALD = 2.9cm2 via continuity equation, peak grad = 4mmHg, | | | mean grad = 2mmHg). Tricuspid Valve Estimated RVSP: 53.78 mmHg | | | Estimated RAP: 17 mmHg TR Velocity: 303.25 cm/s | | | TR Gradient: 36.78 mmHg Tricuspid Valve Findings TV | | | annulus = 3.2cm. Mild-moderate tricuspid regurgitation. RVSP = 54mmHg | | | (consistent with gtpfnegs-go-xoifmn pulmonary arterial | | | hypertension--reading was consistent with direct PASP measurement via | | | Samaria-Roland catheter). Pulmonic Valve Peak Velocity: 51.33 cm/s | | | Peak Gradient: 1.05 mmHg Mean Velocity: 28.45 cm/s | | | Mean Gradient: 0.42 mmHg | | | Estimated PASP: 53.78 mmHg Pulmonic Valve | | | Findings Mild pulmonic insufficiency. Absent pulmonic stenosis. LVOT | | | Peak Velocity: 57.65 cm/s Mean Velocity: 38.89 cm/s | | | Peak Gradient: 1.33 mmHg Mean Gradient: 0.71 mmHg | | | LVOT Diameter: 2.62 cm LVOT VTI: 11.3 cm | | | 25-30%. Globalized moderate hypokinesis; severe hypokinesis of basal + | | | mid inferior, mid anterior, and apical inferolateral segments; akinesis | | | of apical anterior, apical inferior, and apex segments. | | | | | | Right Atrium | | | | | | RA Dimension: 4.9 cm | | | RA Systolic Pressure: 17 mmHg | | | | | | Right Atrium Findings | | | Normal right atrial size. (+)spontaneous echo contrast. | | | | | | Right Ventricle | | | | | | RV Systolic Pressure: 53.78 mmHg | | | | | | Right Ventricle Findings | | | Normal right ventricular size and function. | | | | | |Miscellaneous | | |Aorta | | | | | | Ascending Aorta: 2.99 cm Aortic Arch: 2.47 cm | | | LVOT Diameter: 2.62 cm Descending Aorta: 2.17 cm | | | | | |Pulmonary Vein: | | | | | | S Velocity: 31.31 cm/s A Reversal Velocity: 19.89 cm/s | | | D Velocity: 53.68 cm/s A Reversal Duration: 129.2 msec | | | | | |Miscellaneous Findings | | |Mild thoracic aortic atherosclerosis. | | |Post-CPB, s/p CABG x4 findings: improved global LV systolic function (on | | |epinephrine infusion). LVEF = 35-40%. Generalized hypokinesis persists, but | | |apical anterior and apical inferior segments are improved to severe | | |hypokinesis, mid anterior improved to mild HK; other segments remain | | |unchanged. TR improved to mild. MR is improved from mild to trace. AI is | | |improved from mild to absent. No evidence of aortic dissection. Exam | | |otherwise unchanged. | | | | | | Pericardium | | | | | | Pericardial Effusion Findings | | | No evidence of pericardial effusion. | | | | | | Pleura | | | | | | Pleural Effusion Findings | | | Moderate right pleural effusion noted. | | | | | |Valves | | | | | | Mitral Valve | | | | | | Peak E-Wave: 83.12 cm/s Peak A-Wave: 40.87 cm/s | | | Mean Velocity: 29.82 cm/s E/A Ratio: 2.03 | | | Mean Gradient: 0.55 mmHg Peak Gradient: 2.32 mmHg | | | Deceleration Time: 78.8 msec | | | MR Velocity: 387.56 cm/s Area (continuity): 4.77 cm^2 | | | | | | Tissue Doppler | | | | | | E' Septal Velocity: 7.2 cm/s | | | | | | Mitral Valve Findings | | | MV annulus = 3.3cm. Mild annular & leaflet calcification. Mild mitral | | | regurgitation, centrally-directed jet. Absent mitral stenosis with mean | | | grad = 1mmHg. | | | | | | Aortic Valve | | | | | | Peak Velocity: 95.88 cm/s Mean Velocity: 72.06 cm/s | | | Peak Gradient: 3.68 mmHg Mean Gradient: 2.36 mmHg | | | Area (continuity): 2.91 cm^2 Area (2D): 4.26 cm^2 | | | AV VTI: 20.94 cm | | | | | | Aortic Valve Findings | | | Tri-leaflet valve. AV annulus = 23mm. Mild annular & leaflet | | | calcification. Mild aortic insufficiency. Absent aortic stenosis (GERALD = | | | 2.9cm2 via continuity equation, peak grad = 4mmHg, mean grad = 2mmHg). | | | | | | Tricuspid Valve | | | | | | Estimated RVSP: 53.78 mmHg Estimated RAP: 17 mmHg | | | TR Velocity: 303.25 cm/s TR Gradient: 36.78 mmHg | | | | | | Tricuspid Valve Findings | | | TV annulus = 3.2cm. Mild-moderate tricuspid regurgitation. RVSP = 54mmHg | | | (consistent with zelebvgn-ja-cmuaxf pulmonary arterial | | | hypertension--reading was consistent with direct PASP measurement via | | | Samaria-Roland catheter). | | | | | | Pulmonic Valve | | | | | | Peak Velocity: 51.33 cm/s Peak Gradient: 1.05 mmHg | | | Mean Velocity: 28.45 cm/s Mean Gradient: 0.42 mmHg | | | Estimated PASP: 53.78 mmHg | | | | | | Pulmonic Valve Findings | | | Mild pulmonic insufficiency. Absent pulmonic stenosis. | | | | | | LVOT | | | | | | Peak Velocity: 57.65 cm/s Mean Velocity: 38.89 cm/s | | | Peak Gradient: 1.33 mmHg Mean Gradient: 0.71 mmHg | | | LVOT Diameter: 2.62 cm LVOT VTI: 11.3 cm | | | | | + +- + + + | Procedure Note | + + | Hung Pagan Results In - 02/15/2019 2:10 PM PDT Transesophageal Echocardiography Report | | (SHALA) Demographics Patient Name BOB MANCINI Room Number 30871 | | Patient Number [id number] Date of Study 02/15/2019 Visit Number | | [id number] Referring Physician LUISANA ALCALA Accession Number [id number] | | Compliance Reviewer Date of 1965 Interpreting Physician Ed Elmore | | 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 LVEF = 25-30%. Mild MR. Mild AI. | | Edbw-jc-bjopbiyu TR. Mild PI. Qgtxibjo-fx-pcooxh PAH. Bilateral pleural effusions | | (drained intraoperatively). Mildly improved global & regional function post-CABG on | | low-dose epinephrine infusion. Signature | | | | SHALA Performed By: | | Gaming Type of Anesthesia: General anesthesia Cardiac Chambers RA: Normal | | LV: Markedly dilated LV LA: Markedly dilated LA RV: Normal RV | | size Global RV Function: Normal Global LV Function: Severely depressed Ascending Ao: | | Mild-mod atherosclerosis Aortic Arch: Mild-mod atherosclerosis Descending Ao: Mild-mod | | atherosclerosis Atrial Septum: NormalStructures Left Atrium LA Dimension: 5.3 cm Left | | Atrium Findings Moderate left atrial enlargement. Absent thrombus. Appendage appears | | normal and without thrombus. Interatrial septum appears normal without evidence of shunt | | via CFM. Left Ventricle Diastolic Dimension: 5.6 cm Systolic Dimension: 4.54 | | cm PW Diastolic: 0.82 cm EF Estimated: 30% FS: 18.9 % LV EDV/LV EDV | | Index: 133.04 ml/62 m^2 LV ESV/LV ESV Index: 77.05 ml/36 m^2 EF Calculated: 42.1% | | LV Length: 9.56 cm CI: 2.14 l/min*m^2 | | CO: 4.57 l/min LVOT Diameter: 2.62 cm Left Ventricle Findings (+)spontaneous echo | | contrast in LV. At least moderate left ventricular dilation with internal diastolic | | dimensions above 5cm. Borderline mild eccentric hypertrophy. Severe global systolic | | dysfunction with LVEF = 25-30%. Globalized moderate hypokinesis; severe hypokinesis of | | basal + mid inferior, mid anterior, and apical inferolateral segments; akinesis of | | apical anterior, apical inferior, and apex segments. Right Atrium RA Dimension: 4.9 cm | | RA Systolic Pressure: 17 mmHg Right Atrium Findings Normal right atrial size. | | (+)spontaneous echo contrast. Right Ventricle RV | | Systolic Pressure: 53.78 mmHg Right Ventricle Findings Normal right ventricular size and | | function.MiscellaneousAorta Ascending Aorta: 2.99 cm Aortic Arch: 2.47 cm | | LVOT Diameter: 2.62 cm Descending Aorta: 2.17 cmPulmonary Vein: S | | Velocity: 31.31 cm/s A Reversal Velocity: 19.89 cm/s D Velocity: 53.68 cm/s | | A Reversal Duration: 129.2 msecMiscellaneous FindingsMild thoracic aortic | | atherosclerosis.Post-CPB, s/p CABG x4 findings: improved global LV systolic function | | (onepinephrine infusion). LVEF = 35-40%. Generalized hypokinesis persists, butapical | | anterior and apical inferior segments are improved to severehypokinesis, mid anterior | | improved to mild HK; other segments remainunchanged. TR improved to mild. MR is improved | | from mild to trace. AI isimproved from mild to absent. No evidence of aortic | | dissection. Examotherwise unchanged. Pericardium Pericardial Effusion Findings No | | evidence of pericardial effusion. Pleura Pleural Effusion Findings Moderate right | | pleural effusion noted.Valves Mitral Valve Peak E-Wave: 83.12 cm/s Peak | | A-Wave: 40.87 cm/s Mean Velocity: 29.82 cm/s E/A Ratio: 2.03 Mean Gradient: | | 0.55 mmHg Peak Gradient: 2.32 mmHg | | Deceleration Time: 78.8 msec MR Velocity: 387.56 cm/s Area (continuity): | | 4.77 cm^2 Tissue Doppler E' Septal Velocity: 7.2 cm/s Mitral Valve Findings MV annulus = | | 3.3cm. Mild annular & leaflet calcification. Mild mitral regurgitation, | | centrally-directed jet. Absent mitral stenosis with mean grad = 1mmHg. Aortic Valve Peak | | Velocity: 95.88 cm/s Mean Velocity: 72.06 cm/s Peak Gradient: 3.68 mmHg | | Mean Gradient: 2.36 mmHg Area (continuity): 2.91 cm^2 Area (2D): 4.26 | | cm^2 AV VTI: 20.94 cm Aortic Valve Findings Tri-leaflet valve. AV annulus = 23mm. Mild | | annular & leaflet calcification. Mild aortic insufficiency. Absent aortic stenosis (GERALD | | = 2.9cm2 via continuity equation, peak grad = 4mmHg, mean grad = 2mmHg). Tricuspid Valve | | Estimated RVSP: 53.78 mmHg Estimated RAP: 17 mmHg TR Velocity: 303.25 cm/s | | TR Gradient: 36.78 mmHg Tricuspid Valve Findings TV annulus = 3.2cm. | | Mild-moderate tricuspid regurgitation. RVSP = 54mmHg (consistent with czxfxxvh-yn-vknrds | | pulmonary arterial hypertension--reading was consistent with direct PASP measurement | | via Samaria-Roland catheter). Pulmonic Valve Peak Velocity: 51.33 cm/s Peak | | Gradient: 1.05 mmHg Mean Velocity: 28.45 cm/s Mean Gradient: 0.42 mmHg | | Estimated PASP: 53.78 mmHg Pulmonic Valve Findings Mild | | pulmonic insufficiency. Absent pulmonic stenosis. LVOT Peak Velocity: 57.65 cm/s | | Mean Velocity: 38.89 cm/s Peak Gradient: 1.33 mmHg Mean Gradient: 0.71 | | mmHg LVOT Diameter: 2.62 cm LVOT VTI: 11.3 cm | | Left Atrium | | | | LA Dimension: 5.3 cm | | | | Left Atrium Findings | | Moderate left atrial enlargement. Absent thrombus. Appendage appears | | normal and without thrombus. Interatrial septum appears normal without | | evidence of shunt via CFM. | | | | Left Ventricle | | | | Diastolic Dimension: 5.6 cm Systolic Dimension: 4.54 cm | | PW Diastolic: 0.82 cm | | EF Estimated: 30% FS: 18.9 % | | LV EDV/LV EDV Index: 133.04 ml/62 m^2 LV ESV/LV ESV Index: 77.05 ml/36 m^2 | | EF Calculated: 42.1% LV Length: 9.56 cm | | CI: 2.14 l/min*m^2 | | CO: 4.57 l/min | | LVOT Diameter: 2.62 cm | | | | Left Ventricle Findings | | (+)spontaneous echo contrast in LV. At least moderate left ventricular | | dilation with internal diastolic dimensions above 5cm. Borderline mild | | eccentric hypertrophy. Severe global systolic dysfunction with LVEF = | | 25-30%. Globalized moderate hypokinesis; severe hypokinesis of basal + | | mid inferior, mid anterior, and apical inferolateral segments; akinesis | | of apical anterior, apical inferior, and apex segments. | | | | Right Atrium | | | | RA Dimension: 4.9 cm | | RA Systolic Pressure: 17 mmHg | | | | Right Atrium Findings | | Normal right atrial size. (+)spontaneous echo contrast. | | | | Right Ventricle | | | | RV Systolic Pressure: 53.78 mmHg | | | | Right Ventricle Findings | | Normal right ventricular size and function. | | | |Miscellaneous | |Aorta | | | | Ascending Aorta: 2.99 cm Aortic Arch: 2.47 cm | | LVOT Diameter: 2.62 cm Descending Aorta: 2.17 cm | | | |Pulmonary Vein: | | | | S Velocity: 31.31 cm/s A Reversal Velocity: 19.89 cm/s | | D Velocity: 53.68 cm/s A Reversal Duration: 129.2 msec | | | |Miscellaneous Findings | |Mild thoracic aortic atherosclerosis. | |Post-CPB, s/p CABG x4 findings: improved global LV systolic function (on | |epinephrine infusion). LVEF = 35-40%. Generalized hypokinesis persists, but | |apical anterior and apical inferior segments are improved to severe | |hypokinesis, mid anterior improved to mild HK; other segments remain | |unchanged. TR improved to mild. MR is improved from mild to trace. AI is | |improved from mild to absent. No evidence of aortic dissection. Exam | |otherwise unchanged. | | | | Pericardium | | | | Pericardial Effusion Findings | | No evidence of pericardial effusion. | | | | Pleura | | | | Pleural Effusion Findings | | Moderate right pleural effusion noted. | | | |Valves | | | | Mitral Valve | | | | Peak E-Wave: 83.12 cm/s Peak A-Wave: 40.87 cm/s | | Mean Velocity: 29.82 cm/s E/A Ratio: 2.03 | | Mean Gradient: 0.55 mmHg Peak Gradient: 2.32 mmHg | | Deceleration Time: 78.8 msec | | MR Velocity: 387.56 cm/s Area (continuity): 4.77 cm^2 | | | | Tissue Doppler | | | | E' Septal Velocity: 7.2 cm/s | | | | Mitral Valve Findings | | MV annulus = 3.3cm. Mild annular & leaflet calcification. Mild mitral | | regurgitation, centrally-directed jet. Absent mitral stenosis with mean | | grad = 1mmHg. | | | | Aortic Valve | | | | Peak Velocity: 95.88 cm/s Mean Velocity: 72.06 cm/s | | Peak Gradient: 3.68 mmHg Mean Gradient: 2.36 mmHg | | Area (continuity): 2.91 cm^2 Area (2D): 4.26 cm^2 | | AV VTI: 20.94 cm | | | | Aortic Valve Findings | | Tri-leaflet valve. AV annulus = 23mm. Mild annular & leaflet | | calcification. Mild aortic insufficiency. Absent aortic stenosis (GERALD = | | 2.9cm2 via continuity equation, peak grad = 4mmHg, mean grad = 2mmHg). | | | | Tricuspid Valve | | | | Estimated RVSP: 53.78 mmHg Estimated RAP: 17 mmHg | | TR Velocity: 303.25 cm/s TR Gradient: 36.78 mmHg | | | | Tricuspid Valve Findings | | TV annulus = 3.2cm. Mild-moderate tricuspid regurgitation. RVSP = 54mmHg | | (consistent with qjzbxmcs-bg-xurmzv pulmonary arterial | | hypertension--reading was consistent with direct PASP measurement via | | Samaria-Roland catheter). | | | | Pulmonic Valve | | | | Peak Velocity: 51.33 cm/s Peak Gradient: 1.05 mmHg | | Mean Velocity: 28.45 cm/s Mean Gradient: 0.42 mmHg | | Estimated PASP: 53.78 mmHg | | | | Pulmonic Valve Findings | | Mild pulmonic insufficiency. Absent pulmonic stenosis. | | | | LVOT | | | | Peak Velocity: 57.65 cm/s Mean Velocity: 38.89 cm/s | | Peak Gradient: 1.33 mmHg Mean Gradient: 0.71 mmHg | | LVOT Diameter: 2.62 cm LVOT VTI: 11.3 cm | + + + +---------+ + + | Performing | Address | City/State/Zipcode | Phone Number | | Organization | | | | + +---------+ + + | [facility] | | | | + +---------+ + + POC Glucose (02/15/2019 6:30 AM PDT) + + + + + + | Component | Value | Ref Range | Performed | Pathologist | | | | | At | Signature | + + + + + + | Glucose, | 87Comment: Testing | 65 - 99 mg/dL | [facility] | | | POC | performed at [facility];[address] | | LABORATORY | | | | [address];[place] | | | | | | [address] | | | | + + + + + + + + | Specimen | + + | | + + + + + + + | Performing | Address | City/State/Zipcode | Phone Number | | Organization | | | | + + + + + | [facility] | [address] | [place] [address] | [phone] | + + + + + PTT (02/15/2019 5:49 AM PDT) + + + + + + | Component | Value | Ref Range | Performed | Pathologist | | | | | At | Signature | + + + + + + | PTT | 64 (H)Comment: Testing | 23 - 32 seconds | [facility] | | | | performed at [facility];[address] | | LABORATORY | | | | [address];[place] | | | | | | [address] | | | | + + + + + + + + | Specimen | + + | | + + + + + + + | Performing | Address | City/State/Zipcode | Phone Number | | Organization | | | | + + + + + | [facility] | [address] | [place] [address] | [phone] | + + + + + Protime INR (02/15/2019 5:49 AM PDT) + + + + + + | Component | Value | Ref Range | Performed | Pathologist | | | | | At | Signature | + + + + + + | INR | 1.0Comment: REFERENCE | | [facility] | | | | RANGE:0.9 - 1.2 | | LABORATORY | | | | NON-ANTICOAGULATED2.0 | | | | | | - 3.0 ALL OTHER | | | | | | THERAPEUTIC | | | | | | INDICATIONS2.5 - 3.5 | | | | | | MECHANICAL HEART VALVES, | | | | | | RECURRENT OR SYSTEMIC | | | | | | EMBOLISMTesting | | | | | | performed at [facility];[address] | | | | | | [address];[place], [place] | | | | | | [address] | | | | + + + + + + + + | Specimen | + + | | + + + + + + + | Performing | Address | City/State/Zipcode | Phone Number | | Organization | | | | + + + + + | [facility] | [address] | [place] [address] | [phone] | + + + + + CBC no Differential (02/15/2019 5:49 AM PDT) + + + + + + | Component | Value | Ref Range | Performed | Pathologist | | | | | At | Signature | + + + + + + | WBC | 10.24 | 3.80 - 11.00 | [facility] | | | | | K/uL | LABORATORY | | + + + + + + | RBC | 3.62 (L) | 4.20 - 5.70 | [facility] | | | | | M/uL | LABORATORY | | + + + + + + | Hemoglobin | 11.7 (L) | 13.2 - 17.0 | [facility] | | | | | g/dL | LABORATORY | | + + + + + + | Hematocrit | 34.5 (L) | 39.0 - 50.0 % | [facility] | | | | | | LABORATORY | | + + + + + + | MCV | 95.2 | 80.0 - 100.0 fl | [facility] | | | | | | LABORATORY | | + + + + + + | MCH | 32.2 | 27.0 - 34.0 pg | [facility] | | | | | | LABORATORY | | + + + + + + | MCHC | 33.9 | 32.0 - 35.5 | [facility] | | | | | g/dL | LABORATORY | | + + + + + + | RDW-SD | 45.5 | 37 - 53 fl | [facility] | | | | | | LABORATORY | | + + + + + + | Platelet | 239 | 150 - 400 K/uL | [facility] | | | Count | | | LABORATORY | | + + + + + + | MPV | 8.3Comment: Testing | fl | [facility] | | | | performed at [facility], [address] | | LABORATORY | | | | [address], | | | | | | [place] [address] | | | | + + + + + + + + | Specimen | + + | | + + + + + + + | Performing | Address | City/State/Zipcode | Phone Number | | Organization | | | | + + + + + | [facility] | [address] | [place] [address] | [phone] | + + + + + Renal Function Panel (02/15/2019 5:49 AM PDT) + + + + + + | Component | Value | Ref Range | Performed | Pathologist | | | | | At | Signature | + + + + + + | Na | 142 | 135 - 145 | [facility] | | | | | mmol/L | LABORATORY | | + + + + + + | K | 4.3 | 3.5 - 4.9 | [facility] | | | | | mmol/L | LABORATORY | | + + + + + + | Cl | 114 (H) | 99 - 109 mmol/L | [facility] | | | | | | LABORATORY | | + + + + + + | CO2 | 18 (L) | 23 - 32 mmol/L | [facility] | | | | | | LABORATORY | | + + + + + + | Anion Gap | 14 | 5 - 20 mmol/L | [facility] | | | | | | LABORATORY | | + + + + + + | Glucose | 97 | 65 - 99 mg/dL | [facility] | | | | | | LABORATORY | | + + + + + + | BUN | 49 (H) | 8 - 25 mg/dL | [facility] | | | | | | LABORATORY | | + + + + + + | Creatinine | 1.9 (H) | 0.70 - 1.30 | [facility] | | | | | mg/dL | LABORATORY | | + + + + + + | Calcium | 9.0 | 8.5 - 10.5 | [facility] | | | | | mg/dL | LABORATORY | | + + + + + + | Albumin | 2.3 (L) | 3.6 - 5.0 g/dL | [facility] | | | | | | LABORATORY | | + + + + + + | Phosphorus | 3.7 | 2.3 - 4.8 mg/dL | [facility] | | | | | | LABORATORY | | + + + + + + | Estimated | 37 (L)Comment: GFR <60: | >60 | [facility] | | | GFR | CHRONIC KIDNEY DISEASE, | mL/min/1.73m2 | LABORATORY | | | | IF FOUND OVER A 3 MONTH | | | | | | PERIOD.GFR <15: KIDNEY | | | | | | FAILURE.FOR | | | | | | AMERICANS, MULTIPLY THE | | | | | | CALCULATED GFR BY | | | | | | 1.210.This eGFR is | | | | | | calculated using the | | | | | | MDRD [facility] traceable | | | | | | equation.Testing | | | | | | performed at [facility], [address] | | | | | | [facility], | | | | | | [place] [address] | | | | + + + + + + + + | Specimen | + + | Blood | + + + + + + + | Performing | Address | City/State/Zipcode | Phone Number | | Organization | | | | + + + + + | [facility] | [address] | [place] [address] | [phone] | + + + + + Red Blood Cells (RBC) - Crossmatch and Hold (02/15/2019 12:20 AM PDT) + + + + + + | Component | Value | Ref Range | Performed | Pathologist | | | | | At | Signature | + + + + + + | Product | [employer] | | [facility] | | | Code | | | LABORATORY | | + + + + + + | Units | 4 | | [facility] | | | ordered | | | LABORATORY | | + + + + + + | BLOOD BANK | ORDER RECEIVED IN BLOOD | | [facility] | | | COMMENT | BANK. | | LABORATORY | | + + + + + + | BLOOD BANK | Testing performed at | | [facility] | | | COMMENT | [facility];[address] | LABORATORY | | | | [address];[place] [address] | | | | + + + + + + + + | Specimen | + + | | + + + + + + + | Performing | Address | City/State/Zipcode | Phone Number | | Organization | | | | + + + + + | [facility] | [address] | [place] [address] | [phone] | + + + + + Type and Screen (02/15/2019 12:20 AM PDT) + + + + + + | Component | Value | Ref Range | Performed | Pathologist | | | | | At | Signature | + + + + + + | ABO Rh | O POSITIVE | | [facility] | | | | | | LABORATORY | | + + + + + + | Antibody | NEGATIVE | | [facility] | | | Screen | | | LABORATORY | | + + + + + + | BB BAND | [id number] | | [facility] | | | | | | LABORATORY | | + + + + + + | UNIT # | [id number] | | [facility] | | | | | | LABORATORY | | + + + + + + | Product | [employer]UKO[employer] | | [facility] | | | Code | | | LABORATORY | | + + + + + + | Unit | 00 | | [facility] | | | Division | | | LABORATORY | | + + + + + + | Unit Status | ISSUED,FINAL | | [facility] | | | | | | LABORATORY | | + + + + + + | Transfusion | OK TO TRANSFUSE | | [facility] | | | Status | | | LABORATORY | | + + + + + + | CROSSMATCH | COMPATIBLE | | [facility] | | | RESULT | | | LABORATORY | | + + + + + + | UNIT # | [id number] | | [facility] | | | | | | LABORATORY | | + + + + + + | Product | [employer] | | [facility] | | | Code | | | LABORATORY | | + + + + + + | Unit | 00 | | [facility] | | | Division | | | LABORATORY | | + + + + + + | Unit Status | ISSUED,FINAL | | [facility] | | | | | | LABORATORY | | + + + + + + | Transfusion | OK TO TRANSFUSE | | [facility] | | | Status | | | LABORATORY | | + + + + + + | CROSSMATCH | COMPATIBLE | | [facility] | | | RESULT | | | LABORATORY | | + + + + + + | UNIT # | [id number] | | [facility] | | | | | | LABORATORY | | + + + + + + | Product | LEUKO[employer]PLET[employer] | | [facility] | | | Code | | | LABORATORY | | + + + + + + | Unit | 00 | | [facility] | | | Division | | | LABORATORY | | + + + + + + | Unit Status | REL FROM ALLOC | | [facility] | | | | | | LABORATORY | | + + + + + + | Transfusion | OK TO TRANSFUSE | | [facility] | | | Status | | | LABORATORY | | + + + + + + | CROSSMATCH | COMPATIBLETesting | | [facility] | | | RESULT | performed at [facility] | | LABORATORY | | | | [address];[place], [place] | | | | | | [address] | | | | + + + + + + | UNIT # | [id number] | | [facility] | | | | | | LABORATORY | | + + + + + + | Product | LEUKODEPLETED PC | | [facility] | | | Code | | | LABORATORY | | + + + + + + | Unit | 00 | | [facility] | | | Division | | | LABORATORY | | + + + + + + | Unit Status | REL FROM ALLOC | | [facility] | | | | | | LABORATORY | | + + + + + + | Transfusion | OK TO TRANSFUSE | | [facility] | | | Status | | | LABORATORY | | + + + + + + | CROSSMATCH | COMPATIBLE | | [facility] | | | RESULT | | | LABORATORY | | + + + + + + + + | Specimen | + + | Blood | + + + + + + + | Performing | Address | City/State/Zipcode | Phone Number | | Organization | | | | + + + + + | [facility] | [address] | [place] [address] | [phone] | + + + + + PTT (02/14/2019 11:09 PM PDT) + + + + + + | Component | Value | Ref Range | Performed | Pathologist | | | | | At | Signature | + + + + + + | PTT | 52 (H)Comment: Testing | 23 - 32 seconds | [facility] | | | | performed at [facility];[address] | | LABORATORY | | | | [address];[place] | | | | | | [address] | | | | + + + + + + + + | Specimen | + + | Blood | + + + + + + + | Performing | Address | City/State/Zipcode | Phone Number | | Organization | | | | + + + + + | [facility] | [address] | [place] [address] | [phone] | + + + + + Troponin I (02/14/2019 11:09 PM PDT) + + + + + + | Component | Value | Ref Range | Performed | Pathologist | | | | | At | Signature | + + + + + + | Troponin I | 14.737 ()Comment: | 0.00 - 0.04 | [facility] | | | | 0.04 ng/mL or less | ng/mL | LABORATORY | | | | Negative, repeat | | | | | | testing in four to six | | | | | | hour ifclinically | | | | | | indicted0.05 to 0.77 | | | | | | ng/mL | | | | | | Suspicious for | | | | | | myocardial injury. | | | | | | Serial measurementsmay | | | | | | be necessary to confirm | | | | | | or exclude the diagnosis | | | | | | of acute | | | | | | coronarysyndrome. Repeat | | | | | | testing in four to six | | | | | | hours if indicated.0.78 | | | | | | or greater ng/mL | | | | | | Consistent with | | | | | | myocardial injury. | | | | | | Clinical andlaboratory | | | | | | correlation recommended. | | | | | | CALLED NURSING UNITREAD | | | | | | BACK RESULTS | | | | | | VERIFIEDCOREY N RN 4RP @ | | | | | | 2338 DLSTesting | | | | | | performed at [facility];[address] | | | | | | [address];[place] | | | | | | [address] | | | | + + + + + + + + | Specimen | + + | Blood | + + + + + + + | Performing | Address | City/State/Zipcode | Phone Number | | Organization | | | | + + + + + | [facility] | [address] | [place] [address] | [phone] | + + + + + XR Chest PA and Lateral (02/14/2019 10:55 PM PDT) + + | Specimen | + + | | + + + + + | Impressions | Performed At | + + + | Cardiomegaly with pulmonary edema, mildly increased since | [facility] | | 02/12/2019. Signed by: Radha Chavez, Kayley Sign | | | Date/Time: 02/15/2019 1:18 AM | | + + + + + + | Narrative | Performed At | + + + | CHEST PA AND LATERAL CLINICAL INFORMATION: Pre-operative | [facility] | | coronary artery bypass grafting. COMPARISON: XR CHEST 2 VIEWS | | | (02/12/2019); XR CHEST 2 VIEW (09/11/2017); XR CHEST 1 VIEW | | | (09/10/2017); FINDINGS: Cardiomegaly with central vascular | | | congestion, interstitial edema and small bilateral effusions. | | | Pulmonary edema has increased since 02/12/2019. No pneumothorax. | | | Bones unremarkable. | | + + + + + | Procedure Note | + + | Ej, Rad Results In - 02/15/2019 1:22 AM PDT | | CHEST PA AND LATERAL | | | | CLINICAL INFORMATION: | | Pre-operative coronary artery bypass grafting. | | | | COMPARISON: | | XR CHEST 2 VIEWS (02/12/2019); XR CHEST 2 VIEW (09/11/2017); XR CHEST 1 | | VIEW (09/10/2017); | | | | FINDINGS: | | Cardiomegaly with central vascular congestion, interstitial edema and | | small bilateral effusions. Pulmonary edema has increased since | | 02/12/2019. No pneumothorax. Bones unremarkable. | | | | IMPRESSION: | | Cardiomegaly with pulmonary edema, mildly increased since 02/12/2019. | | | | | | | | Signed by: Radha Chavez Julie | | Sign Date/Time: 02/15/2019 1:18 AM | + + + +---------+ + + | Performing | Address | City/State/Zipcode | Phone Number | | Organization | | | | + +---------+ + + | [facility] | | | | + +---------+ + + MRSA NAAT (02/14/2019 10:24 PM PDT) + + + + + + | Component | Value | Ref Range | Performed | Pathologist | | | | | At | Signature | + + + + + + | SOURCE: | NARES(NOSE) | | [facility] | | | | | | LABORATORY | | + + + + + + | Result | NEGATIVEComment: Testing | MRSNEG | [facility] | | | | performed at [facility] | | LABORATORY | | | | [address];[place], [place] | | | | | | [address] | | | | + + + + + + + + | Specimen | + + | Tissue - Both | | anterior nares (body | | structure) | + + + + + + + | Performing | Address | City/State/Zipcode | Phone Number | | Organization | | | | + + + + + | [facility] | [address] | [place] [address] | [phone] | + + + + + POC Glucose (02/14/2019 9:11 PM PDT) + + + + + + | Component | Value | Ref Range | Performed | Pathologist | | | | | At | Signature | + + + + + + | Glucose, | 165 (H)Comment: Testing | 65 - 99 mg/dL | [facility] | | | POC | performed at [facility];[address] | | LABORATORY | | | | [address];[place] | | | | | | [address] | | | | + + + + + + + + | Specimen | + + | | + + + + + + + | Performing | Address | City/State/Zipcode | Phone Number | | Organization | | | | + + + + + | [facility] | [address] | [place] [address] | [phone] | + + + + + POC Glucose (02/14/2019 4:44 PM PDT) + + + + + + | Component | Value | Ref Range | Performed | Pathologist | | | | | At | Signature | + + + + + + | Glucose, | 166 (H)Comment: Testing | 65 - 99 mg/dL | [facility] | | | POC | performed at [facility];[address] | | LABORATORY | | | | [address];[place] | | | | | | [address] | | | | + + + + + + + + | Specimen | + + | | + + + + + + + | Performing | Address | City/State/Zipcode | Phone Number | | Organization | | | | + + + + + | [facility] | [address] | [place] [address] | [phone] | + + + + + ECG 12 lead (02/14/2019 1:00 PM PDT) + + + + + + | Component | Value | Ref Range | Performed | Pathologist | | | | | At | Signature | + + + + + + | VENTRICULAR | 84 | BPM | [facility] | | | RATE EKG | | | | | + + + + + + | ATRIAL RATE | 84 | BPM | [facility] | | + + + + + + | P-R | 130 | ms | [facility] | | | INTERVAL | | | | | + + + + + + | QRS | 126 | ms | [facility] | | | DURATION | | | | | + + + + + + | Q-T | 378 | ms | [facility] | | | INTERVAL | | | | | + + + + + + | Q-T | 446 | ms | [facility] | | | INTERVAL | | | | | | (CORRECTED) | | | | | + + + + + + | P WAVE AXIS | 35 | degrees | [facility] | | + + + + + + | QRS AXIS | 61 | degrees | [facility] | | + + + + + + | T AXIS | -54 | degrees | [facility] | | + + + + + + | INTERPRETAT | Normal sinus | | [facility] | | | ION TEXT | rhythmNon-specific | | | | | | intra-ventricular | | | | | | conduction blockAnterior | | | | | | infarct , age | | | | | | undetermined , likely | | | | | | acuteT wave abnormality, | | | | | | consider inferior | | | | | | ischemiaAbnormal ECGWhen | | | | | | compared with ECG of | | | | | | 12-FEB-2019 03:57,ST | | | | | | elevation now present, | | | | | | with increased T wave | | | | | | inversions in precordial | | | | | | leadsPatient has | | | | | | undergone diagnostic | | | | | | coronary angiography, | | | | | | awaiting CABGConfirmed | | | | | | by Agapito Gómez MD | | | | | | (366) on 02/14/2019 | | | | | | 8:47:03 PM | | | | + + + + + + + + | Specimen | + + | | + + + + + | Narrative | Performed At | + + + | | | + + + + +---------+ + + | Performing | Address | City/State/Zipcode | Phone Number | | Organization | | | | + +---------+ + + | [facility] | | | | + +---------+ + + PTT (02/14/2019 12:47 PM PDT) + + + + + + | Component | Value | Ref Range | Performed | Pathologist | | | | | At | Signature | + + + + + + | PTT | 39 (H)Comment: Testing | 23 - 32 seconds | [facility] | | | | performed at [facility];[address] | | LABORATORY | | | | [address];[place] | | | | | | [address] | | | | + + + + + + + + | Specimen | + + | Blood | + + + + + + + | Performing | Address | City/State/Zipcode | Phone Number | | Organization | | | | + + + + + | [facility] | [address] | [place] [address] | [phone] | + + + + + Troponin I (02/14/2019 12:47 PM PDT) + + + + + + | Component | Value | Ref Range | Performed | Pathologist | | | | | At | Signature | + + + + + + | Troponin I | 12.566 ()Comment: | 0.00 - 0.04 | [facility] | | | | 0.04 ng/mL or less | ng/mL | LABORATORY | | | | Negative, repeat | | | | | | testing in four to six | | | | | | hour ifclinically | | | | | | indicted0.05 to 0.77 | | | | | | ng/mL | | | | | | Suspicious for | | | | | | myocardial injury. | | | | | | Serial measurementsmay | | | | | | be necessary to confirm | | | | | | or exclude the diagnosis | | | | | | of acute | | | | | | coronarysyndrome. Repeat | | | | | | testing in four to six | | | | | | hours if indicated.0.78 | | | | | | or greater ng/mL | | | | | | Consistent with | | | | | | myocardial injury. | | | | | | Clinical andlaboratory | | | | | | correlation recommended. | | | | | | RESULT READ BACK | | | | | | BY:SHERIDAN BENÍTEZ | | | | | | [phone] AT [phone] BY [facility]. | | | | | | Testing performed at | | | | | | [facility];[address] [facility] | | | | | | [address];[place] [address] | | | | + + + + + + + + | Specimen | + + | Blood | + + + + + + + | Performing | Address | City/State/Zipcode | Phone Number | | Organization | | | | + + + + + | [facility] | [address] | [place] [address] | [phone] | + + + + + POC Glucose (02/14/2019 12:02 PM PDT) + + + + + + | Component | Value | Ref Range | Performed | Pathologist | | | | | At | Signature | + + + + + + | Glucose, | 148 (H)Comment: Testing | 65 - 99 mg/dL | [facility] | | | POC | performed at [facility];[address] | | LABORATORY | | | | [address];[place], [place] | | | | | | [address] | | | | + + + + + + + + | Specimen | + + | | + + + + + + + | Performing | Address | City/State/Zipcode | Phone Number | | Organization | | | | + + + + + | [facility] | [address] | [place] [address] | [phone] | + + + + + POC Glucose (02/14/2019 8:52 AM PDT) + + + + + + | Component | Value | Ref Range | Performed | Pathologist | | | | | At | Signature | + + + + + + | Glucose, | 135 (H)Comment: Testing | 65 - 99 mg/dL | [facility] | | | POC | performed at [facility];[address] | | LABORATORY | | | | [address];[place] | | | | | | [address] | | | | + + + + + + + + | Specimen | + + | | + + + + + + + | Performing | Address | City/State/Zipcode | Phone Number | | Organization | | | | + + + + + | [facility] | [address] | [place] [address] | [phone] | + + + + + Troponin I (02/14/2019 7:14 AM PDT) + + + + + + | Component | Value | Ref Range | Performed | Pathologist | | | | | At | Signature | + + + + + + | Troponin I | 12.832 ()Comment: | 0.00 - 0.04 | [facility] | | | | 0.04 ng/mL or less | ng/mL | LABORATORY | | | | Negative, repeat | | | | | | testing in four to six | | | | | | hour ifclinically | | | | | | indicted0.05 to 0.77 | | | | | | ng/mL | | | | | | Suspicious for | | | | | | myocardial injury. | | | | | | Serial measurementsmay | | | | | | be necessary to confirm | | | | | | or exclude the diagnosis | | | | | | of acute | | | | | | coronarysyndrome. Repeat | | | | | | testing in four to six | | | | | | hours if indicated.0.78 | | | | | | or greater ng/mL | | | | | | Consistent with | | | | | | myocardial injury. | | | | | | Clinical andlaboratory | | | | | | correlation recommended. | | | | | | RESULT READ BACK | | | | | | BY:CARLA Baxter ON [id number] | | | | | | AT 0758 BY Rima. Testing | | | | | | performed at [facility] | | | | | | [facility];[place], [place] | | | | | | [address] | | | | + + + + + + + + | Specimen | + + | Blood | + + + + + + + | Performing | Address | City/State/Zipcode | Phone Number | | Organization | | | | + + + + + | [facility] | [address] | [place] [address] | [phone] | + + + + + Hemoglobin A1C (02/14/2019 6:11 AM PDT) + + + + + + | Component | Value | Ref Range | Performed | Pathologist | | | | | At | Signature | + + + + + + | Hemoglobin | 7.4 (H)Comment: HbA1c | 4.0 - 6.0 % | [facility] | | | A1c | method is certified by | | LABORATORY | | | | NGSP and traceable to | | | | | | the DCCT reference | | | | | | method.ADA guidelines | | | | | | indicate: | | | | | | Prediabetes: 5.7 - 6.4 | | | | | | Diabetes: >6.4 | | | | | | Glycemic control for | | | | | | adults with diabetes: | | | | | | <7.0Effective 05/10/2018: | | | | | | Note New Method | | | | + + + + + + | Estimated | 166 (H)Comment: | <154 mg/dL | [facility] | | | Average | Estimated Average | | LABORATORY | | | Glucose | Glucose calculated from | | | | | | hemoglobin A1c by use of | | | | | | the ADArecommended | | | | | | formula.Testing | | | | | | performed at [facility], [address] | | | | | | [facility], | | | | | | [place] [address] | | | | + + + + + + + + | Specimen | + + | Blood | + + + + + + + | Performing | Address | City/State/Zipcode | Phone Number | | Organization | | | | + + + + + | [facility] | [address] | [place] [address] | [phone] | + + + + + PTT (02/14/2019 6:11 AM PDT) + + + + + + | Component | Value | Ref Range | Performed | Pathologist | | | | | At | Signature | + + + + + + | PTT | 44 (H)Comment: Testing | 23 - 32 seconds | [facility] | | | | performed at [facility];[address] | | LABORATORY | | | | [address];[place], [place] | | | | | | [address] | | | | + + + + + + + + | Specimen | + + | Blood | + + + + + + + | Performing | Address | City/State/Zipcode | Phone Number | | Organization | | | | + + + + + | [facility] | [address] [facility] | [place] [address] | [phone] | + + + + + Renal Function Panel (02/14/2019 5:59 AM PDT) + + + + + + | Component | Value | Ref Range | Performed | Pathologist | | | | | At | Signature | + + + + + + | Na | 140 | 135 - 145 | [facility] | | | | | mmol/L | LABORATORY | | + + + + + + | K | 4.6 | 3.5 - 4.9 | [facility] | | | | | mmol/L | LABORATORY | | + + + + + + | Cl | 114 (H) | 99 - 109 mmol/L | [facility] | | | | | | LABORATORY | | + + + + + + | CO2 | 20 (L) | 23 - 32 mmol/L | [facility] | | | | | | LABORATORY | | + + + + + + | Anion Gap | 11 | 5 - 20 mmol/L | [facility] | | | | | | LABORATORY | | + + + + + + | Glucose | 113 (H) | 65 - 99 mg/dL | [facility] | | | | | | LABORATORY | | + + + + + + | BUN | 53 (H) | 8 - 25 mg/dL | [facility] | | | | | | LABORATORY | | + + + + + + | Creatinine | 2.1 (H) | 0.70 - 1.30 | [facility] | | | | | mg/dL | LABORATORY | | + + + + + + | Calcium | 8.7 | 8.5 - 10.5 | [facility] | | | | | mg/dL | LABORATORY | | + + + + + + | Albumin | 2.5 (L) | 3.6 - 5.0 g/dL | [facility] | | | | | | LABORATORY | | + + + + + + | Phosphorus | 3.3 | 2.3 - 4.8 mg/dL | [facility] | | | | | | LABORATORY | | + + + + + + | Estimated | 33 (L)Comment: GFR <60: | >60 | [facility] | | | GFR | CHRONIC KIDNEY DISEASE, | mL/min/1.73m2 | LABORATORY | | | | IF FOUND OVER A 3 MONTH | | | | | | PERIOD.GFR <15: KIDNEY | | | | | | FAILURE.FOR | | | | | | AMERICANS, MULTIPLY THE | | | | | | CALCULATED GFR BY | | | | | | 1.210.This eGFR is | | | | | | calculated using the | | | | | | MDRD IDMS traceable | | | | | | equation.Testing | | | | | | performed at [facility], [address] | | | | | [address] [facility], | | | | | | [place] [address] | | | | + + + + + + + + | Specimen | + + | Blood | + + + + + + + | Performing | Address | City/State/Zipcode | Phone Number | | Organization | | | | + + + + + | [facility] | [address] [facility] | [place] [address] | [phone] | + + + + + Troponin I (02/13/2019 11:43 PM PDT) + + + + + + | Component | Value | Ref Range | Performed | Pathologist | | | | | At | Signature | + + + + + + | Troponin I | 15.415 ()Comment: | 0.00 - 0.04 | [place] | | | | 0.04 ng/mL or less | ng/mL | LABORATORY | | | | Negative, repeat | | | | | | testing in four to six | | | | | | hour ifclinically | | | | | | indicted0.05 to 0.77 | | | | | | ng/mL | | | | | | Suspicious for | | | | | | myocardial injury. | | | | | | Serial measurementsmay | | | | | | be necessary to confirm | | | | | | or exclude the diagnosis | | | | | | of acute | | | | | | coronarysyndrome. Repeat | | | | | | testing in four to six | | | | | | hours if indicated.0.78 | | | | | | or greater ng/mL | | | | | | Consistent with | | | | | | myocardial injury. | | | | | | Clinical andlaboratory | | | | | | correlation recommended. | | | | | | CALLED NURSING UNITREAD | | | | | | BACK RESULTS | | | | | | VERIFIEDKATIE B IN 4RP | | | | | | AT 0024 BY TDTesting | | | | | | performed at [facility] | | | | | | [address];[place] | | | | | | [address] | | | | + + + + + + + + | Specimen | + + | Blood | + + + + + + + | Performing | Address | City/State/Zipcode | Phone Number | | Organization | | | | + + + + + | [facility] | [address] | [place] [address] | [phone] | + + + + + POC Glucose (02/13/2019 9:18 PM PDT) + + + + + + | Component | Value | Ref Range | Performed | Pathologist | | | | | At | Signature | + + + + + + | Glucose, | 162 (H)Comment: Testing | 65 - 99 mg/dL | [facility] | | | POC | performed at [facility];[address] | LABORATORY | | | | [address];[place] | | | | | | [address] | | | | + + + + + + + + | Specimen | + + | | + + + + + + + | Performing | Address | City/State/Zipcode | Phone Number | | Organization | | | | + + + + + | [facility] | [address] | [place] [address] | [phone] | + + + + + POC Glucose (02/13/2019 6:25 PM PDT) + + + + + + | Component | Value | Ref Range | Performed | Pathologist | | | | | At | Signature | + + + + + + | Glucose, | 123 (H)Comment: Testing | 65 - 99 mg/dL | [facility] | | | POC | performed at [facility];[address] | | LAB[address]ATORY | | | | [address];[place] | | | | | | [address] | | | | + + + + + + + + | Specimen | + + | | + + + + + + + | Performing | Address | City/State/Zipcode | Phone Number | | Organization | | | | + + + + + | [facility] | [address] | [place] [address] | [phone] | + + + + + Troponin I (02/13/2019 3:08 PM PDT) + + + + + + | Component | Value | Ref Range | Performed | Pathologist | | | | | At | Signature | + + + + + + | Troponin I | 15.509 ()Comment: | 0.00 - 0.04 | [facility] | | | | 0.04 ng/mL or less | ng/mL | LABORATORY | | | | Negative, repeat | | | | | | testing in four to six | | | | | | hour ifclinically | | | | | | indicted0.05 to 0.77 | | | | | | ng/mL | | | | | | Suspicious for | | | | | | myocardial injury. | | | | | | Serial measurementsmay | | | | | | be necessary to confirm | | | | | | or exclude the diagnosis | | | | | | of acute | | | | | | coronarysyndrome. Repeat | | | | | | testing in four to six | | | | | | hours if indicated.0.78 | | | | | | or greater ng/mL | | | | | | Consistent with | | | | | | myocardial injury. | | | | | | Clinical andlaboratory | | | | | | correlation recommended. | | | | | | RESULT READ BACK | | | | | | BY:CARLA Gardner RN 4RP [id number] | | | | | | [id number] KAWTesting | | | | | | performed at [facility];[address] | | | | | | [facility];[place], [place] | | | | | | [address] | | | | + + + + + + + + | Specimen | + + | Blood | + + + + + + + | Performing | Address | City/State/Zipcode | Phone Number | | Organization | | | | + + + + + | [facility] | [address] | [place] [address] | [phone] | + + + + + POC Glucose (02/13/2019 11:46 AM PDT) + + + + + + | Component | Value | Ref Range | Performed | Pathologist | | | | | At | Signature | + + + + + + | Glucose, | 185 (H)Comment: Testing | 65 - 99 mg/dL | [facility] | | | POC | performed at [facility];[address] | | LABORATORY | | | | [address];[place] | | | | | | [address] | | | | + + + + + + + + | Specimen | + + | | + + + + + + + | Performing | Address | City/State/Zipcode | Phone Number | | Organization | | | | + + + + + | [facility] | [address] | [place] [address] | [phone] | + + + + + POC Glucose (02/13/2019 8:49 AM PDT) + + + + + + | Component | Value | Ref Range | Performed | Pathologist | | | | | At | Signature | + + + + + + | Glucose, | 145 (H)Comment: Testing | 65 - 99 mg/dL | [facility] | | | POC | performed at [facility];[address] | | LABORATORY | | | | [address];[place] | | | | | | [address] | | | | + + + + + + + + | Specimen | + + | | + + + + + + + | Performing | Address | City/State/Zipcode | Phone Number | | Organization | | | | + + + + + | [facility] | [address] | [place] [address] | [phone] | + + + + + Phosphorus (02/13/2019 7:42 AM PDT) + + + + + + | Component | Value | Ref Range | Performed | Pathologist | | | | | At | Signature | + + + + + + | Phosphorus | 4.1Comment: Testing | 2.3 - 4.8 mg/dL | [facility] | | | | performed at [facility];[address] | | LABORATORY | | | | [address];[place], [place] | | | | | | [address] | | | | + + + + + + + + | Specimen | + + | Blood | + + + + + + + | Performing | Address | City/State/Zipcode | Phone Number | | Organization | | | | + + + + + | [facility] | [address] | [place] [address] | [phone] | + + + + + Troponin I (02/13/2019 7:42 AM PDT) + + + + + + | Component | Value | Ref Range | Performed | Pathologist | | | | | At | Signature | + + + + + + | Troponin I | 16.442 ()Comment: | 0.00 - 0.04 | [facility] | | | | 0.04 ng/mL or less | ng/mL | LABORATORY | | | | Negative, repeat | | | | | | testing in four to six | | | | | | hour ifclinically | | | | | | indicted0.05 to 0.77 | | | | | | ng/mL | | | | | | Suspicious for | | | | | | myocardial injury. | | | | | | Serial measurementsmay | | | | | | be necessary to confirm | | | | | | or exclude the diagnosis | | | | | | of acute | | | | | | coronarysyndrome. Repeat | | | | | | testing in four to six | | | | | | hours if indicated.0.78 | | | | | | or greater ng/mL | | | | | | Consistent with | | | | | | myocardial injury. | | | | | | Clinical andlaboratory | | | | | | correlation recommended. | | | | | | CALLED NURSING UNITREAD | | | | | | BACK RESULTS | | | | | | VERIFIEDRHONDA B ON 4RP | | | | | | AT 0808 BY CRKTesting | | | | | | performed at [facility] | | | | | | [facility];[place], [place] | | | | | | [address] | | | | + + + + + + + + | Specimen | + + | Blood | + + + + + + + | Performing | Address | City/State/Zipcode | Phone Number | | Organization | | | | + + + + + | [facility] | [address] | [place] [address] | [phone] | + + + + + CBC with Differential (02/13/2019 6:52 AM PDT) + + + + + + | Component | Value | Ref Range | Performed | Pathologist | | | | | At | Signature | + + + + + + | WBC | 10.43 | 3.80 - 11.00 | [facility] | | | | | K/uL | LABORATORY | | + + + + + + | RBC | 3.53 (L) | 4.20 - 5.70 | [facility] | | | | | M/uL | LABORATORY | | + + + + + + | Hemoglobin | 11.4 (L) | 13.2 - 17.0 | [facility] | | | | | g/dL | LABORATORY | | + + + + + + | Hematocrit | 33.0 (L) | 39.0 - 50.0 % | [facility] | | | | | | LABORATORY | | + + + + + + | MCV | 93.5 | 80.0 - 100.0 fl | [facility] | | | | | | LABORATORY | | + + + + + + | MCH | 32.3 | 27.0 - 34.0 pg | [facility] | | | | | | LABORATORY | | + + + + + + | MCHC | 34.5 | 32.0 - 35.5 | [facility] | | | | | g/dL | LABORATORY | | + + + + + + | RDW-SD | 42.9 | 37 - 53 fl | [facility] | | | | | | LABORATORY | | + + + + + + | Platelet | 204 | 150 - 400 K/uL | [facility] | | | Count | | | LABORATORY | | + + + + + + | MPV | 8.6 | fl | [facility] | | | | | | LABORATORY | | + + + + + + | Diff Type | AUTOMATED | | [facility] | | | | | | LABORATORY | | + + + + + + | % | 75.85 | % | [facility] | | | Neutrophils | | | LABORATORY | | + + + + + + | % | 13.24 | % | [facility] | | | Lymphocytes | | | LABORATORY | | + + + + + + | Monocyte % | 8.98 | % | [facility] | | | | | | LABORATORY | | + + + + + + | Eosinophils | 1.52 | % | [facility] | | | % | | | LABORATORY | | + + + + + + | Basophils % | 0.41 | % | [facility] | | | | | | LABORATORY | | + + + + + + | Neutrophils | 7.91 (H) | 1.90 - 7.40 | [facility] | | | , Absolute | | K/uL | LABORATORY | | + + + + + + | Absolute | 1.38 | 1.00 - 3.90 | [facility] | | | Lymphocytes | | K/uL | LABORATORY | | + + + + + + | Absolute | 0.94 (H) | 0.00 - 0.80 | [facility] | | | Monocytes | | K/uL | LABORATORY | | + + + + + + | Eosinophils | 0.16 | 0.00 - 0.50 | [facility] | | | , Absolute | | K/uL | LABORATORY | | + + + + + + | Basophils, | 0.04Comment: Testing | 0.00 - 0.10 | [facility] | | | Absolute | performed at [facility];[address] | K/uL | LABORATORY | | | | [address];[place] | | | | | | [address] | | | | + + + + + + + + | Specimen | + + | Blood | + + + + + + + | Performing | Address | City/State/Zipcode | Phone Number | | Organization | | | | + + + + + | [facility] | [address] | [place] [address] | [phone] | + + + + + Basic Metabolic Panel (02/13/2019 6:52 AM PDT) + + + + + + | Component | Value | Ref Range | Performed | Pathologist | | | | | At | Signature | + + + + + + | Na | 141 | 135 - 145 | [facility] | | | | | mmol/L | LABORATORY | | + + + + + + | K | 5.3 (H) | 3.5 - 4.9 | [facility] | | | | | mmol/L | LABORATORY | | + + + + + + | Cl | 114 (H) | 99 - 109 mmol/L | [facility] | | | | | | LABORATORY | | + + + + + + | CO2 | 18 (L) | 23 - 32 mmol/L | [facility] | | | | | | LABORATORY | | + + + + + + | Anion Gap | 14 | 5 - 20 mmol/L | [facility] | | | | | | LABORATORY | | + + + + + + | Glucose | 103 (H) | 65 - 99 mg/dL | [facility] | | | | | | LABORATORY | | + + + + + + | BUN | 51 (H) | 8 - 25 mg/dL | [facility] | | | | | | LABORATORY | | + + + + + + | Creatinine | 2.23 (H) | 0.70 - 1.30 | [facility] | | | | | mg/dL | LABORATORY | | + + + + + + | BUN/Creatin | 23 | | [facility] | | | ine Ratio | | | LABORATORY | | + + + + + + | Calcium | 8.4 (L) | 8.5 - 10.5 | [facility] | | | | | mg/dL | LABORATORY | | + + + + + + | Estimated | 31 (L)Comment: GFR <60: | >60 | [facility] | | | GFR | CHRONIC KIDNEY DISEASE, | mL/min/1.73m2 | LABORATORY | | | | IF FOUND OVER A 3 MONTH | | | | | | PERIOD.GFR <15: KIDNEY | | | | | | FAILURE.FOR | | | | | | AMERICANS, MULTIPLY THE | | | | | | CALCULATED GFR BY | | | | | | 1.210.This eGFR is | | | | | | calculated using the | | | | | | MDRD IDMS traceable | | | | | | equation.Testing | | | | | | performed at [facility];[address] | | | | | | [facility];[place], [place] | | | | | | [address] | | | | + + + + + + + + | Specimen | + + | Blood | + + + + + + + | Performing | Address | City/State/Zipcode | Phone Number | | Organization | | | | + + + + + | [facility] | [address] [facility] | [place] [address] | [phone] | + + + + + PTT (02/13/2019 5:09 AM PDT) + + + + + + | Component | Value | Ref Range | Performed | Pathologist | | | | | At | Signature | + + + + + + | PTT | 47 (H)Comment: Testing | 23 - 32 seconds | [facility] | | | | performed at [facility];[address] | | LABORATORY | | | | [address] [facility];[place], [place] | | | | | | [address] | | | | + + + + + + + + | Specimen | + + | Blood | + + + + + + + | Performing | Address | City/State/Zipcode | Phone Number | | Organization | | | | + + + + + | [facility] | [address] | [place] [address] | [phone] | + + + + + Troponin I (02/12/2019 11:04 PM PDT) + + + + + + | Component | Value | Ref Range | Performed | Pathologist | | | | | At | Signature | + + + + + + | Troponin I | 19.769 ()Comment: | 0.00 - 0.04 | [facility] | | | | 0.04 ng/mL or less | ng/mL | LABORATORY | | | | Negative, repeat | | | | | | testing in four to six | | | | | | hour ifclinically | | | | | | indicted0.05 to 0.77 | | | | | | ng/mL | | | | | | Suspicious for | | | | | | myocardial injury. | | | | | | Serial measurementsmay | | | | | | be necessary to confirm | | | | | | or exclude the diagnosis | | | | | | of acute | | | | | | coronarysyndrome. Repeat | | | | | | testing in four to six | | | | | | hours if indicated.0.78 | | | | | | or greater ng/mL | | | | | | Consistent with | | | | | | myocardial injury. | | | | | | Clinical andlaboratory | | | | | | correlation recommended. | | | | | | CALLED TO PENNY Riggs | | | | | | ROCAEL/4RP AT 0002 02/13/19 | | | | | | BY MWREAD BACK RESULTS | | | | | | VERIFIEDTesting | | | | | | performed at [facility] | | | | | | [facility];[place], [place] | | | | | | [address] | | | | + + + + + + + + | Specimen | + + | Blood | + + + + + + + | Performing | Address | City/State/Zipcode | Phone Number | | Organization | | | | + + + + + | [facility] | [address] | [place] [address] | [phone] | + + + + + POC Glucose (02/12/2019 9:16 PM PDT) + + + + + + | Component | Value | Ref Range | Performed | Pathologist | | | | | At | Signature | + + + + + + | Glucose, | 114 (H)Comment: Testing | 65 - 99 mg/dL | [facility] | | | POC | performed at [facility];[address] | | LABORATORY | | | | [address];[place] | | | | | | [address] | | | | + + + + + + + + | Specimen | + + | | + + + + + + + | Performing | Address | City/State/Zipcode | Phone Number | | Organization | | | | + + + + + | [facility] | [address] | [place] [address] | [phone] | + + + + + POC Glucose (02/12/2019 4:30 PM PDT) + + + + + + | Component | Value | Ref Range | Performed | Pathologist | | | | | At | Signature | + + + + + + | Glucose, | 135 (H)Comment: Testing | 65 - 99 mg/dL | [facility] | | | POC | performed at [facility];[address] | | LABORATORY | | | | [address];[place] | | | | | | [address] | | | | + + + + + + + + | Specimen | + + | | + + + + + + + | Performing | Address | City/State/Zipcode | Phone Number | | Organization | | | | + + + + + | [facility] | [address] | [place] [address] | [phone] | + + + + + Troponin I (02/12/2019 3:51 PM PDT) + + + + + + | Component | Value | Ref Range | Performed | Pathologist | | | | | At | Signature | + + + + + + | Troponin I | 19.414 ()Comment: | 0.00 - 0.04 | [facility] | | | | 0.04 ng/mL or less | ng/mL | LABORATORY | | | | Negative, repeat | | | | | | testing in four to six | | | | | | hour ifclinically | | | | | | indicted0.05 to 0.77 | | | | | | ng/mL | | | | | | Suspicious for | | | | | | myocardial injury. | | | | | | Serial measurementsmay | | | | | | be necessary to confirm | | | | | | or exclude the diagnosis | | | | | | of acute | | | | | | coronarysyndrome. Repeat | | | | | | testing in four to six | | | | | | hours if indicated.0.78 | | | | | | or greater ng/mL | | | | | | Consistent with | | | | | | myocardial injury. | | | | | | Clinical andlaboratory | | | | | | correlation recommended. | | | | | | CALLED RESULTSREAD BACK | | | | | | RESULTS | | | | | | VERIFIEDACFLUrban/ANABELA Torres | | | | | | AT 1638 BY SALTesting | | | | | | performed at [facility];[address] | | | | | | [address];[place] | | | | | | [address] | | | | + + + + + + + + | Specimen | + + | Blood | + + + + + + + | Performing | Address | City/State/Zipcode | Phone Number | | Organization | | | | + + + + + | [facility] | [address] [facility] | [place] [address] | [phone] | + + + + + Protein, Urine, Random (02/12/2019 3:05 PM PDT) + + + + + + | Component | Value | Ref Range | Performed | Pathologist | | | | | At | Signature | + + + + + + | Protein, | 345Comment: NO NORMAL | mg/dL | [facility] | | | Urine | [facility]ANGE ESTABLISHEDTesting | | LABORATORY | | | | performed at [facility], [address] | [address], | | | | | | [place] [address] | | | | + + + + + + + + | Specimen | + + | | + + + + + + + | Performing | Address | City/State/Zipcode | Phone Number | | Organization | | | | + + + + + | [facility] | [address] | [place] [address] | [phone] | + + + + + Protein/Creatinine Ratio, Urine (02/12/2019 3:05 PM PDT) + + + + + + | Component | Value | Ref Range | Performed | Pathologist | | | | | At | Signature | + + + + + + | PRO/CREA | 1.364Comment: Testing | | [facility] | | | RATIO,URINE | performed at [facility], [address] | LABORATORY | | | | [address], | | | | | | [place] [address] | | | | + + + + + + + + | Specimen | + + | | + + + + + + + | Performing | Address | City/State/Zipcode | Phone Number | | Organization | | | | + + + + + | [facility] | [address] | [place] [address] | [phone] | + + + + + Urinalysis with Microscopic with Culture if Indicated (02/12/2019 3:05 PM PDT) + + + + + + | Component | Value | Ref Range | Performed | Pathologist | | | | | At | Signature | + + + + + + | Color, UA | YELLOW | | [facility] | | | | | | LABORATORY | | + + + + + + | Clarity, UA | HAZY | | [facility] | | | | | | LABORATORY | | + + + + + + | Specific | 1.020 | 1.002 - 1.030 | [facility] | | | [place], | | | LABORATORY | | | Urine | | | | | + + + + + + | Leukocyte | NEGATIVE | NEG | [facility] | | | esterase, | | | LABORATORY | | | UA | | | | | + + + + + + | Nitrite, UA | NEGATIVE | NEG | [facility] | | | | | | LABORATORY | | + + + + + + | Urobilinoge | 2.0 (H) | <1.1 mg/dL | [facility] | | | n, Ur | | | LABORATORY | | + + + + + + | Protein, | >500 (A) | NEG mg/dL | [facility] | | | Urine | | | LABORATORY | | | (mg/dL) | | | | | + + + + + + | pH, Urine | 5.0 | 5.0 - 8.0 | [facility] | | | | | | LABORATORY | | + + + + + + | Blood, UA | SMALL (A) | NEG | [facility] | | | | | | LABORATORY | | + + + + + + | Ketones, UA | NEGATIVE | NEG mg/dL | [facility] | | | | | | LABORATORY | | + + + + + + | Bilirubin, | NEGATIVE | NEG | [facility] | | | UA | | | LABORATORY | | + + + + + + | Glucose, Ur | 50 (A) | NEG mg/dL | [facility] | | | | | | LABORATORY | | + + + + + + | WBC UA | 3-5 | 0 - 5 /hpf | [facility] | | | | | | LABORATORY | | + + + + + + | RBC UA | 0-2 | 0 - 2 /hpf | [facility] | | | | | | LABORATORY | | + + + + + + | SQUAMOUS | 6-10 | /lpf | [facility] | | | EPITHELIAL | | | LABORATORY | | | UA | | | | | + + + + + + | BACTERIA UA | NONE SEEN | NONE | [facility] | | | | | | LABORATORY | | + + + + + + | MUCUS UA | 1+ | | [facility] | | | | | | LABORATORY | | + + + + + + | HYALINE | 6-10 | | [facility] | | | CASTS UA | | | LABORATORY | | + + + + + + | AMORPHOUS | 1+Comment: Testing | | [facility] | | | CRYSTALS | performed at [facility];[address] | | LABORATORY | | | | [address];[place] | | | | | | [address] | | | | + + + + + + + + | Specimen | + + | Urine - Urine | | specimen obtained by | | clean catch | | procedure (specimen) | + + + + + + + | Performing | Address | City/State/Zipcode | Phone Number | | Organization | | | | + + + + + | [facility] | [address] | [place] [address] | [phone] | + + + + + Urea Nitrogen, Urine, Random (02/12/2019 3:05 PM PDT) + + + + + + | Component | Value | Ref Range | Performed | Pathologist | | | | | At | Signature | + + + + + + | Urea | 570.0Comment: NO NORMAL | mg/dL | [facility] | | | Nitrogen, | [facility] ESTABLISHEDTesting | | LABORATORY | | | Urine | performed at [facility], [address] | | | | [address] [facility], | | | | | | [place] [address] | | | | + + + + + + + + | Specimen | + + | Urine - Urine | | specimen obtained by | | clean catch | | procedure (specimen) | + + + + + + + | Performing | Address | City/State/Zipcode | Phone Number | | Organization | | | | + + + + + | [facility] | [address] | [place] [address] | [phone] | + + + + + Sodium, Urine, Random (02/12/2019 3:05 PM PDT) + + + + + + | Component | Value | Ref Range | Performed | Pathologist | | | | | At | Signature | + + + + + + | Sodium, | 27Comment: NO NORMAL | mmol/L | [facility] | | | Random | [facility]LISHEDTesting | | LABORATORY | | | urine | performed at [facility], [address] | [address] | | [address], | | | | | | [place] [address] | | | | + + + + + + + + | Specimen | + + | Urine - Urine | | specimen obtained by | | clean catch | | procedure (specimen) | + + + + + + + | Performing | Address | City/State/Zipcode | Phone Number | | Organization | | | | + + + + + | [facility] | [address] | [place] [address] | [phone] | + + + + + Eosinophil Smear, Urine (02/12/2019 3:05 PM PDT) + + + + + + | Component | Value | Ref Range | Performed | Pathologist | | | | | At | Signature | + + + + + + | Eosinophils | NO EOSINOPHILS | <1 % | [facility] | | | | SEENComment: Testing | | LABORATORY | | | | performed at [facility], [address] | | | | | [address], | | | | | | [place] [address] | | | | + + + + + + + + | Specimen | + + | Urine - Urine | | specimen obtained by | | clean catch | | procedure (specimen) | + + + + + + + | Performing | Address | City/State/Zipcode | Phone Number | | Organization | | | | + + + + + | [facility] | [address] | [place] [address] | [phone] | + + + + + Creatinine, Urine, Random (02/12/2019 3:05 PM PDT) + + + + + + | Component | Value | Ref Range | Performed | Pathologist | | | | | At | Signature | + + + + + + | Creatinine, | 253.0Comment: NO NORMAL | mg/dL | [facility] | | | random | [facility]LISHEDTesting | | LABORATORY | | | urine | performed at [facility], [address] | | | | | [address], | | | | | | [place] [address] | | | | + + + + + + + + | Specimen | + + | Urine - Urine | | specimen obtained by | | clean catch | | procedure (specimen) | + + + + + + + | Performing | Address | City/State/Zipcode | Phone Number | | Organization | | | | + + + + + | [facility] | [address] | [place] [address] | [phone] | + + + + + Chloride, Urine, Random (02/12/2019 3:05 PM PDT) + + + + + + | Component | Value | Ref Range | Performed | Pathologist | | | | | At | Signature | + + + + + + | RANDOM | 50Comment: NO NORMAL | mmol/L | [facility] | | | URINE | [facility]LISHEDTesting | | LABORATORY | | | CHLORIDE | performed at [facility], [address] | | | | | [address] [facility], | | | | | | [place] [address] | | | | + + + + + + + + | Specimen | + + | Urine - Urine | | specimen obtained by | | clean catch | | procedure (specimen) | + + + + + + + | Performing | Address | City/State/Zipcode | Phone Number | | Organization | | | | + + + + + | [facility] | [address] | [place] [address] | [phone] | + + + + + POC Glucose (02/12/2019 11:15 AM PDT) + + + + + + | Component | Value | Ref Range | Performed | Pathologist | | | | | At | Signature | + + + + + + | Glucose, | 212 (H)Comment: Testing | 65 - 99 mg/dL | [facility] | | | POC | performed at [facility];[address] | | LABORATORY | | | | [address];[place] | | | | | | [address] | | | | + + + + + + + + | Specimen | + + | | + + + + + + + | Performing | Address | City/State/Zipcode | Phone Number | | Organization | | | | + + + + + | [facility] | [address] | [place] [address] | [phone] | + + + + + ECHO Complete (02/12/2019 10:40 AM PDT) + + + + + + | Component | Value | Ref Range | Performed | Pathologist | | | | | At | Signature | + + + + + + | BASELINE | 117/71 | mmHg | [facility] | | | BLOOD | | | | | | PRESSURE | | | | | + + + + + + | Patient | 205 | | [facility] | | | Weight | | | | | | (lbs) | | | | | + + + + + + | Patient | 71 | | [facility] | | | Height | | | | | + + + + + + | Heart Rate | 78 | | [facility] | | + + + + + + | LVEF-TTE | 42 | % | [facility] | | | TRANSTHORAC | | | | | | IC ECHO | | | | | + + + + + + | Inferior | 0.8 | cm | [facility] | | | Vena Cava | | | | | | Diameter at | | | | | | | | | | | | Inspiration | | | | | + + + + + + | Inferior | 2.43 | cm | [facility] | | | V[place] Cava | | | | | | Diameter at | | | | | | Expiration | | | | | + + + + + + | RA PRESSURE | 8 | mmHg | [facility] | | + + + + + + | LVIDd | 5.06 | cm | [facility] | | + + + + + + | FS | 17 | % | [facility] | | + + + + + + | LA volume | 93.66 | mL | [facility] | | + + + + + + | Ascending | 3.22 | cm | [facility] | | | aorta | | | | | + + + + + + | AV | 403.18 | msec | [facility] | | | regurgitati | | | | | | on pressure | | | | | | 1/2 time | | | | | + + + + + + | AV mean | 2.36 | mmHg | [facility] | | | gradient | | | | | + + + + + + | Aortic | 2.53 | cm2 | [facility] | | | Valve Area | | | | | | by | | | | | | Continuity | | | | | | VTI | | | | | + + + + + + | MV mean | 1.4 | mmHg | [facility] | | | gradient | | | | | + + + + + + | MV Area by | 3.94 | cm2 | [facility] | | | P 1/2 | | | | | | method | | | | | + + + + + + | MV Area by | 2.46 | cm2 | [facility] | | | Continuity | | | | | | Equation | | | | | + + + + + + | PV peak | 2.16 | mmHg | [facility] | | | gradient | | | | | + + + + + + | Pulm vein | 79.58 | msec | [facility] | | | "A" wave | | | | | + + + + + + | Pulm vein | 45.74 | | [facility] | | | S/D ratio | | | | | + + + + + + | LVOT | 2.31 | cm | [facility] | | | diameter | | | | | + + + + + + | LVOT peak | 59.91 | cm/s | [facility] | | | [place] | | | | | + + + + + + | LVOT peak | 12.61 | cm | [facility] | | | VTI | | | | | + + + + + + | AV peak [place] | 96.56 | cm/s | [facility] | | + + + + + + | AV VTI | 20.85 | cm | [facility] | | + + + + + + | MR max [place] | 417 | cm/s | [facility] | | + + + + + + | AV peak | 3.73 | mmHg | [facility] | | | gradient | | | | | + + + + + + | MV peak | 4.6 | mmHg | [facility] | | | gradient | | | | | + + + + + + | TV mean | 0.85 | mmHg | [facility] | | | gradient | | | | | + + + + + + | TV peak | 1.41 | mmHg | [facility] | | | gradient | | | | | + + + + + + | PV mean | 1.24 | mmHg | [facility] | | | gradient | | | | | + + + + + + | MV Pressure | 55.84 | msec | [facility] | | | 1/2 time | | | | | + + + + + + | Pulm Vein | 54.43 | cm/s | [facility] | | | Peak [address] [place] | | | | | + + + + + + | Pulm Vein | 46.07 | cm/s | [facility] | | | Peak D [place] | | | | | + + + + + + | LA Volume | 44 | mL/m2 | [facility] | | | Index | | | | | + + + + + + | AV LVOT | 1.44 | mmHg | [facility] | | | Peak | | | | | | Gradient | | | | | + + + + + + | AV LVOT | 0.86 | mmHg | [facility] | | | Mean | | | | | | Gradient | | | | | + + + + + + | TR Peak | 50 | mmHg | [facility] | | | Gradient | | | | | + + + + + + | RV Free | 10.17 | cm/s | [facility] | | | Wall Peak | | | | | | S' | | | | | + + + + + + | TR Velocity | 353.02 | cm | [facility] | | + + + + + + | PI Peak | 73.51 | cm/s | [facility] | | | Velocity | | | | | + + + + + + | LV | 10.26 | cm | [facility] | | | Diastolic | | | | | | Length 4C | | | | | + + + + + + | RV | 3.61 | cm | [facility] | | | Diastolic | | | | | | Basal | | | | | | Diameter | | | | | + + + + + + | LV | 41 | % | [facility] | | | Cavazos's | | | | | | Biplane EF | | | | | + + + + + + | LV ED | 172.18 | ml | [facility] | | | Volume | | | | | | (Cavazos's) | | | | | + + + + + + | LV ED | 80 | ml/m2 | [facility] | | | Volume | | | | | | Index | | | | | + + + + + + | LV ES | 102.13 | ml | [facility] | | | Volume | | | | | + + + + + + | LVOT Mean | 43.92 | cm/s | [facility] | | | Velocity | | | | | + + + + + + | RVSP | 58 | mmHg | [facility] | | | Estimated | | | | | + + + + + + | MV | 175.97 | msec | [facility] | | | Deceleratio | | | | | | n Time | | | | | + + + + + + | MV E/A | 2.69 | | [facility] | | | Ratio | | | | | + + + + + + | MV Mean | 51.68 | cm/s | [facility] | | | Velocity | | | | | + + + + + + | MV Peak | 40.07 | cm/s | [facility] | | | A-Wave | | | | | + + + + + + | MV Peak | 107.62 | cm/s | [facility] | | | E-Wave | | | | | + + + + + + | TV | 222.21 | msec | [facility] | | | Deceleratio | | | | | | n Time | | | | | + + + + + + | TV Mean | 44.14 | cm/s | [facility] | | | Velocity | | | | | + + + + + + | TV Peak | 64.22 | cm/s | [facility] | | | A-Wave | | | | | + + + + + + | TV Peak | 59.31 | cm/s | [facility] | | | E-Wave | | | | | + + + + + + | PV Mean | 53.45 | cm/s | [facility] | | | Velocity | | | | | + + + + + + | PV | 132.5 | cm/s | [facility] | | | Regurgitati | | | | | | on Velocity | | | | | + + + + + + | AV | 224.61 | cm/s2 | [facility] | | | Deceleratio | | | | | | n [place] | | | | | + + + + + + | AV | 1,390.28 | msec | [facility] | | | Deceleratio | | | | | | n Time | | | | | + + + + + + | AV Mean | 74.39 | cm/s | [facility] | | | Velocity | | | | | + + + + + + | RA Area | 17.7 | cm2 | [facility] | | + + + + + + | RA | 5.3 | cm | [facility] | | | Dimension | | | | | + + + + + + | LA/Aorta | 1.16 | | [facility] | | | Ratio | | | | | + + + + + + | LA Area | 23.86 | cm2 | [facility] | | + + + + + + | LA Major | 0.2085 | cm | [facility] | | + + + + + + | LV ES | 48 | ml/m2 | [facility] | | | Volume | | | | | | Index | | | | | + + + + + + | Cardiac | 4.12 | l/min | [facility] | | | Output | | | | | + + + + + + | Cardiac | 1.93 | l/min/m2 | [facility] | | | Index | | | | | + + + + + + | ST Junction | 3.11 | | [facility] | | | Diameter | | | | | + + + + + + | Sinus | 3.62 | | [facility] | | | Diameter | | | | | + + + + + + | Aortic Root | 3.72 | cm | [facility] | | | Diameter | | | | | + + + + + + | IVS | 1.46 | cm | [facility] | | | Diastolic | | | | | | Thickness | | | | | | MM | | | | | + + + + + + | LVPW | 1.23 | cm | [facility] | | | Diastolic | | | | | | Thickness | | | | | | MM | | | | | + + + + + + | IVS | 1.85 | cm | [facility] | | | Systolic | | | | | | Thickness | | | | | | MM | | | | | + + + + + + | LV Systolic | 4.2 | cm | [facility] | | | Diameter | | | | | | MM | | | | | + + + + + + | LVPW | 1.74 | cm | [facility] | | | Systolic | | | | | | Thickness | | | | | | MM | | | | | + + + + + + | AV Cusp | 2.43 | cm | [facility] | | | Seperation | | | | | | MM | | | | | + + + + + + | LA Systolic | 4.31 | cm | [facility] | | | Diameter | | | | | | MM | | | | | + + + + + + | TAPSE | 1.44 | cm | [facility] | | + + + + + + + + | Specimen | + + | | + + + + + | Narrative | Performed At | + + + | EF 35-40% | [facility] | | with marked apical hypokinesis Mild [facility] Estimated right | | | ventricular systolic pressure (RVSP) is 58 mmHg | | | | | + + + + +---------+ + + | Performing | Address | City/State/Zipcode | Phone Number | | Organization | | | | + +---------+ + + | [facility] | | | | + +---------+ + + US Renal Limited (02/12/2019 9:45 AM PDT) + + | Specimen | + + | | + + + + + | Impressions | Performed At | + + + | Negative renal ultrasound. Signed by: Radha Day, Wilda | [facility] | | Sign Date/Time: 02/12/2019 10:43 AM | | + + + + + + | Narrative | Performed At | + + + | ULTRASOUND KIDNEYS AND BLADDER CLINICAL INFORMATION: Acute | [facility] | | kidney injury. COMPARISON: None PROCEDURE: Evaluation of the | | | kidneys and urinary bladder. FINDINGS: Right kidney: 10.7 cm. No | | | solid renal mass, hydronephrosis or definitive calculi. Left | | | kidney: 12.2 cm. No solid renal mass, hydronephrosis or definitive | | | calculi. Bladder: Normal. | | + + + + + | Procedure Note | + + | Ej, Rad Results In - 02/12/2019 10:46 AM PDT | | ULTRASOUND KIDNEYS AND BLADDER | | | | CLINICAL INFORMATION: | | Acute kidney injury. | | | | COMPARISON: | | None | | | | PROCEDURE: | | Evaluation of the kidneys and urinary bladder. | | | | FINDINGS: | | Right kidney: 10.7 cm. No solid renal mass, hydronephrosis or | | definitive calculi. | | | | Left kidney: 12.2 cm. No solid renal mass, hydronephrosis or definitive | | calculi. | | | | Bladder: Normal. | | | | IMPRESSION: | | Negative renal ultrasound. | | | | | | | | Signed by: Radha Day Paige | | Sign Date/Time: 02/12/2019 10:43 AM | + + + +---------+ + + | Performing | Address | City/State/Zipcode | Phone Number | | Organization | | | | + +---------+ + + | [facility] | | | | + +---------+ + + XR Chest 2 Vws (02/12/2019 8:52 AM PDT) + + | Specimen | + + | | + + + + + | Impressions | Performed At | + + + | Lungs with congestive failure with interstitial edema and venous | [facility] | | distension and small effusions and cardiomegaly. Signed | | | by: Radha Cash, Johny Sign Date/Time: 02/12/2019 9:08 AM | | + + + + + + | Narrative | Performed At | + + + | CHEST TWO VIEWS CLINICAL INFORMATION: Pre-operative CABG | [facility] | | surgery. COMPARISON: XR CHEST 2 VIEW (09/11/2017); XR CHEST 1 VIEW | | | (09/10/2017); CL LEFT HEART CATH RETRO (12/24/2007); FINDINGS: | | | Lungs show congestive failure with venous distension and interstitial | | | edema and airway cuffing. Left heart predominance cardiomegaly | | | marginally increased from 09/11/2017. Small pleural effusions | | | bilaterally. No pneumothorax or adenopathy. No significant bone | | | abnormality. | | + + + + + | Procedure Note | + + | Hung Pagan Results In - 02/12/2019 9:12 AM PDT | | CHEST TWO VIEWS | | | | CLINICAL INFORMATION: | | Pre-operative CABG surgery. | | | | COMPARISON: | | XR CHEST 2 VIEW (09/11/2017); XR CHEST 1 VIEW (09/10/2017); CL LEFT HEART | | CATH RETRO (12/24/2007); | | | | FINDINGS: | | Lungs show congestive failure with venous distension and interstitial | | edema and airway cuffing. | | Left heart predominance cardiomegaly marginally increased from | | 09/11/2017. | | Small pleural effusions bilaterally. | | | | No pneumothorax or adenopathy. No significant bone abnormality. | | | | IMPRESSION: | | Lungs with congestive failure with interstitial edema and venous | | distension and small effusions and cardiomegaly. | | | | | | | | | | Signed by: Radha Cash Gregory | | Sign Date/Time: 02/12/2019 9:08 AM | + + + +---------+ + + | Performing | Address | City/State/Zipcode | Phone Number | | Organization | | | | + +---------+ + + | [facility] | | | | + +---------+ + + Troponin I (02/12/2019 7:29 AM PDT) + + + + + + | Component | Value | Ref Range | Performed | Pathologist | | | | | At | Signature | + + + + + + | Troponin I | 22.34 ()Comment: | 0.00 - 0.04 | [facility] | | | | 0.04 ng/mL or less | ng/mL | [facility] | | | | Negative, repeat | | | | | | testing in four to six | | | | | | hour ifclinically | | | | | | indicted0.05 to 0.77 | | | | | | ng/mL | | | | | | Suspicious for | | | | | | myocardial injury. | | | | | | Serial measurementsmay | | | | | | be necessary to confirm | | | | | | or exclude the diagnosis | | | | | | of acute | | | | | | coronarysyndrome. Repeat | | | | | | testing in four to six | | | | | | hours if indicated.0.78 | | | | | | or greater ng/mL | | | | | | Consistent with | | | | | | myocardial injury. | | | | | | Clinical andlaboratory | | | | | | correlation recommended. | | | | | | CALLED NURSING UNITREAD | | | | | | BACK RESULTS | | | | | | VERIFIEDKRISTA K IN 4RP | | | | | | AT 0804 BY TDTesting | | | | | | performed at [facility];[address];[place] | | | | | | [address] | | | | + + + + + + + + | Specimen | + + | Blood | + + + + + + + | Performing | Address | City/State/Zipcode | Phone Number | | Organization | | | | + + + + + | [facility] | [address] | [place] [address] | [phone] | + + + + + POC Glucose (02/12/2019 5:56 AM PDT) + + + + + + | Component | Value | Ref Range | Performed | Pathologist | | | | | At | Signature | + + + + + + | Glucose, | 115 (H)Comment: Testing | 65 - 99 mg/dL | [facility] | | | POC | performed at [facility];[address] | | LABORATORY | | | | [address];[place] | | | | | | [address] | | | | + + + + + + + + | Specimen | + + | | + + + + + + + | Performing | Address | City/State/Zipcode | Phone Number | | Organization | | | | + + + + + | [facility] | [address] | [place] [address] | [phone] | + + + + + PTT (02/12/2019 5:12 AM PDT) + + + + + + | Component | Value | Ref Range | Performed | Pathologist | | | | | At | Signature | + + + + + + | PTT | 49 (H)Comment: Testing | 23 - 32 seconds | [facility] | | | | performed at [facility];[address] | | LABORATORY | | | | [address];[place] | | | | | | [address] | | | | + + + + + + + + | Specimen | + + | Blood | + + + + + + + | Performing | Address | City/State/Zipcode | Phone Number | | Organization | | | | + + + + + | [facility] | [address] | [place] [address] | [phone] | + + + + + Basic Metabolic Panel (02/12/2019 5:12 AM PDT) + + + + + + | Component | Value | Ref Range | Performed | Pathologist | | | | | At | Signature | + + + + + + | Na | 140 | 135 - 145 | [facility] | | | | | mmol/L | LABORATORY | | + + + + + + | K | 5.3 (H) | 3.5 - 4.9 | [facility] | | | | | mmol/L | LABORATORY | | + + + + + + | Cl | 117 (H) | 99 - 109 mmol/L | [facility] | | | | | | LABORATORY | | + + + + + + | CO2 | 19 (L) | 23 - 32 mmol/L | [facility] | | | | | | LABORATORY | | + + + + + + | Anion Gap | 9 | 5 - 20 mmol/L | [facility] | | | | | | LABORATORY | | + + + + + + | Glucose | 110 (H) | 65 - 99 mg/dL | [facility] | | | | | | LABORATORY | | + + + + + + | BUN | 47 (H) | 8 - 25 mg/dL | [facility] | | | | | | LABORATORY | | + + + + + + | Creatinine | 2.2 (H) | 0.70 - 1.30 | [facility] | | | | | mg/dL | LABORATORY | | + + + + + + | BUN/Creatin | 21 | | [facility] | | | ine Ratio | | | LABORATORY | | + + + + + + | Calcium | 8.5 | 8.5 - 10.5 | [facility] | | | | | mg/dL | [facility] | | + + + + + + | Estimated | 32 (L)Comment: GFR <60: | >60 | [facility] | | | GFR | CHRONIC KIDNEY DISEASE, | mL/min/1.73m2 | LAB[facility]ATORY | | | | IF FOUND OVER A 3 MONTH | | | | | | PERIOD.GFR <15: KIDNEY | | | | | | FAILURE.FOR | | | | | | AMERICANS, MULTIPLY THE | | | | | | CALCULATED GFR BY | | | | | | 1.210.This eGFR is | | | | | | calculated using the | | | | | | MDRD IDMS traceable | | | | | | equation.Testing | | | | | | performed at [facility], [address] | | | | | [facility], | | | | | | [place] [address] | | | | + + + + + + + + | Specimen | + + | Blood | + + + + + + + | Performing | Address | City/State/Zipcode | Phone Number | | Organization | | | | + + + + + | [facility] | [address] | [place] [address] | [phone] | + + + + + CBC no Differential (02/12/2019 5:12 AM PDT) + + + + + + | Component | Value | Ref Range | Performed | Pathologist | | | | | At | Signature | + + + + + + | WBC | 9.26 | 3.80 - 11.00 | [facility] | | | | | K/uL | LABORATORY | | + + + + + + | RBC | 3.42 (L) | 4.20 - 5.70 | [facility] | | | | | M/uL | LABORATORY | | + + + + + + | Hemoglobin | 11.3 (L) | 13.2 - 17.0 | [facility] | | | | | g/dL | LABORATORY | | + + + + + + | Hematocrit | 32.1 (L) | 39.0 - 50.0 % | [facility] | | | | | | LABORATORY | | + + + + + + | MCV | 93.9 | 80.0 - 100.0 fl | [facility] | | | | | | LABORATORY | | + + + + + + | MCH | 33.0 | 27.0 - 34.0 pg | [facility] | | | | | | LABORATORY | | + + + + + + | MCHC | 35.1 | 32.0 - 35.5 | [facility] | | | | | g/dL | LABORATORY | | + + + + + + | RDW-SD | 45.1 | 37 - 53 fl | [facility] | | | | | | LABORATORY | | + + + + + + | Platelet | 210 | 150 - 400 K/uL | [facility] | | | Count | | | LABORATORY | | + + + + + + | MPV | 8.9Comment: Testing | fl | [facility] | | | | performed at [facility], [address] | | LABORATORY | | | | [address], | | | | | | [place] [address] | | | | + + + + + + + + | Specimen | + + | Blood | + + + + + + + | Performing | Address | City/State/Zipcode | Phone Number | | Organization | | | | + + + + + | [facility] | [address] | [place] [address] | [phone] | + + + + + CK Total (02/12/2019 5:12 AM PDT) + + + + + + | Component | Value | Ref Range | Performed | Pathologist | | | | | At | Signature | + + + + + + | CK TOTAL | 309Comment: Testing | 55 - 400 U/L | [facility] | | | | performed at [facility];[address] | | LABORATORY | | | | [address];[place], [place] | | | | | | [address] | | | | + + + + + + + + | Specimen | + + | Blood | + + + + + + + | Performing | Address | City/State/Zipcode | Phone Number | | Organization | | | | + + + + + | [facility] | [address] | [place] [address] | [phone] | + + + + + ECG 12 lead (02/12/2019 3:57 AM PDT) + + + + + + | Component | Value | Ref Range | Performed | Pathologist | | | | | At | Signature | + + + + + + | VENTRICULAR | 68 | BPM | [facility] | | | RATE EKG | | | | | + + + + + + | ATRIAL RATE | 68 | BPM | [facility] | | + + + + + + | P-R | 126 | ms | [facility] | | | INTERVAL | | | | | + + + + + + | QRS | 116 | ms | [facility] | | | DURATION | | | | | + + + + + + | Q-T | 404 | ms | [facility] | | | INTERVAL | | | | | + + + + + + | Q-T | 429 | ms | [facility] | | | INTERVAL | | | | | | (CORRECTED) | | | | | + + + + + + | P WAVE AXIS | 21 | degrees | [facility] | | + + + + + + | QRS AXIS | 63 | degrees | [facility] | | + + + + + + | T AXIS | -137 | degrees | [facility] | | + + + + + + | INTERPRETAT | Normal sinus | | [facility] | | | ION TEXT | rhythmPossible Left | | | | | | atrial | | | | | | enlargementIncomplete | | | | | | left bundle branch | | | | | | blockST & T wave | | | | | | abnormalities, consider | | | | | | inferolateral | | | | | | ischemiaAbnormal ECGWhen | | | | | | compared with ECG of | | | | | | 11-FEB-2019 18:25,No | | | | | | significant change was | | | | | | foundConfirmed by Rico | | | | | | Agapito LEUNG ([id number]) on | | | | | | 02/12/2019 8:25:42 AM | | | | + + + + + + + + | Specimen | + + | | + + + + + | Narrative | Performed At | + + + | | | + + + + +---------+ + + | Performing | Address | City/State/Zipcode | Phone Number | | Organization | | | | + +---------+ + + | [facility] | | | | + +---------+ + + POC Glucose (02/11/2019 11:32 PM PDT) + + + + + + | Component | Value | Ref Range | Performed | Pathologist | | | | | At | Signature | + + + + + + | Glucose, | 126 (H)Comment: Testing | 65 - 99 mg/dL | [facility] | | | POC | performed at [facility];[address] | | LABORATORY | | | | [address];[place] | | | | | | [address] | | | | + + + + + + + + | Specimen | + + | | + + + + + + + | Performing | Address | City/State/Zipcode | Phone Number | | Organization | | | | + + + + + | [facility] | [address] | [place] [address] | [phone] | + + + + + POC Glucose (02/11/2019 8:56 PM PDT) + + + + + + | Component | Value | Ref Range | Performed | Pathologist | | | | | At | Signature | + + + + + + | Glucose, | 141 (H)Comment: Testing | 65 - 99 mg/dL | [facility] | | | POC | performed at [facility];[address] | | LABORATORY | | | | [address];[place] | | | | | | [address] | | | | + + + + + + + + | Specimen | + + | | + + + + + + + | Performing | Address | City/State/Zipcode | Phone Number | | Organization | | | | + + + + + | [facility] | [address] | [place] [address] | [phone] | + + + + + PTT (02/11/2019 7:45 PM PDT) + + + + + + | Component | Value | Ref Range | Performed | Pathologist | | | | | At | Signature | + + + + + + | PTT | 46 (H)Comment: Testing | 23 - 32 seconds | [facility] | | | | performed at [facility];[address] | | LABORATORY | | | | [address];[place], [place] | | | | | | [address] | | | | + + + + + + + + | Specimen | + + | Blood | + + + + + + + | Performing | Address | City/State/Zipcode | Phone Number | | Organization | | | | + + + + + | [facility] | [address] | [place] [address] | [phone] | + + + + + POC Glucose (02/11/2019 6:29 PM PDT) + + + + + + | Component | Value | Ref Range | Performed | Pathologist | | | | | At | Signature | + + + + + + | Glucose, | 127 (H)Comment: Testing | 65 - 99 mg/dL | [facility] | | | POC | performed at [facility];[address] | | LABORATORY | | | | [address];[place], [place] | | | | | | [address] | | | | + + + + + + + + | Specimen | + + | | + + + + + + + | Performing | Address | City/State/Zipcode | Phone Number | | Organization | | | | + + + + + | [facility] | [address] | [place] [address] | [phone] | + + + + + ECG 12 lead (02/11/2019 6:25 PM PDT) + + + + + + | Component | Value | Ref Range | Performed | Pathologist | | | | | At | Signature | + + + + + + | VENTRICULAR | 82 | BPM | [facility] | | | RATE EKG | | | | | + + + + + + | ATRIAL RATE | 82 | BPM | [facility] | | + + + + + + | P-R | 138 | ms | [facility] | | | INTERVAL | | | | | + + + + + + | QRS | 118 | ms | [facility] | | | DURATION | | | | | + + + + + + | Q-T | 372 | ms | [facility] | | | INTERVAL | | | | | + + + + + + | Q-T | 434 | ms | [facility] | | | INTERVAL | | | | | | (CORRECTED) | | | | | + + + + + + | P WAVE AXIS | 45 | degrees | [facility] | | + + + + + + | QRS AXIS | 73 | degrees | [facility] | | + + + + + + | T AXIS | -80 | degrees | [facility] | | + + + + + + | INTERPRETAT | Normal sinus | | [facility] | | | ION TEXT | rhythmIncomplete left | | | | | | bundle branch blockST & | | | | | | T wave abnormality, | | | | | | consider inferior | | | | | | ischemiaST & T wave | | | | | | abnormality, consider | | | | | | anterolateral | | | | | | ischemiaAbnormal ECGWhen | | | | | | compared with ECG of | | | | | | 11-FEB-2019 08:53,No | | | | | | significant change since | | | | | | previous ECGConfirmed | | | | | | by JULIAN CANALES MD | | | | | | ([id number]) on 02/12/2019 | | | | | | 9:29:42 AM | | | | + + + + + + + + | Specimen | + + | | + + + + + | Narrative | Performed At | + + + | | | + + + + +---------+ + + | Performing | Address | City/State/Zipcode | Phone Number | | Organization | | | | + +---------+ + + | [facility] | | | | + +---------+ + + CV CARDIAC PROCEDURE (02/11/2019 1:36 PM PDT) + + | Specimen | + + | | + + + + + | Narrative | Performed At | + + + | For | | | additional detail as to the procedures performed and the equipment | | | that was utilized, please refer to the Procedure Log. | | | | | |For additional detail as to the procedures performed and the equipment | | |that was utilized, please refer to the Procedure Log. | | | | | + + + + + | Procedure Note | + + | Juan Canales MD - 02/11/2019 1:35 PM PDT For additional detail as to | | the procedures performed and the equipment that was utilized, please refer to the | | Procedure Log. | | | |For additional detail as to the procedures performed and the equipment that was utilized, tai de anda refer to the Procedure Log. | + + Activated clotting time (02/11/2019 1:13 PM PDT) + + + + + + | Component | Value | Ref Range | Performed | Pathologist | | | | | At | Signature | + + + + + + | Activated | 175 (H)Comment: Testing | 74 - 137 | [facility] | | | Clotting | performed at [facility];[address] | seconds | LABORATORY | | | Time, POC | [address];[place] | | | | | | [address] | | | | + + + + + + + + | Specimen | + + | | + + + + + + + | Performing | Address | City/State/Zipcode | Phone Number | | Organization | | | | + + + + + | [facility] | [address] | [place] [address] | [phone] | + + + + + POC Glucose (02/11/2019 12:33 PM PDT) + + + + + + | Component | Value | Ref Range | Performed | Pathologist | | | | | At | Signature | + + + + + + | Glucose, | 124 (H)Comment: Testing | 65 - 99 mg/dL | [facility] | | | POC | performed at [facility];[address] | | LABORATORY | | | | [address];[place], [place] | | | | | | [address] | | | | + + + + + + + + | Specimen | + + | | + + + + + + + | Performing | Address | City/State/Zipcode | Phone Number | | Organization | | | | + + + + + | [facility] | [address] | [place] [address] | [phone] | + + + + + PTT (02/11/2019 11:47 AM PDT) + + + + + + | Component | Value | Ref Range | Performed | Pathologist | | | | | At | Signature | + + + + + + | PTT | 48 (H)Comment: Testing | 23 - 32 seconds | [facility] | | | | performed at [facility];[address] | | LABORATORY | | | | [address];[place] | | | | | | [id number] | | | | + + + + + + + + | Specimen | + + | Blood | + + + + + + + | Performing | Address | City/State/Zipcode | Phone Number | | Organization | | | | + + + + + | [facility] | [address] | [place] [address] | [phone] | + + + + + Troponin I (02/11/2019 11:47 AM PDT) + + + + + + | Component | Value | Ref Range | Performed | Pathologist | | | | | At | Signature | + + + + + + | Troponin I | 14.741 ()Comment: | 0.00 - 0.04 | [facility] | | | | 0.04 ng/mL or less | ng/mL | LABORATORY | | | | Negative, repeat | | | | | | testing in four to six | | | | | | hour ifclinically | | | | | | indicted0.05 to 0.77 | | | | | | ng/mL | | | | | | Suspicious for | | | | | | myocardial injury. | | | | | | Serial measurementsmay | | | | | | be necessary to confirm | | | | | | or exclude the diagnosis | | | | | | of acute | | | | | | coronarysyndrome. Repeat | | | | | | testing in four to six | | | | | | hours if indicated.0.78 | | | | | | or greater ng/mL | | | | | | Consistent with | | | | | | myocardial injury. | | | | | | Clinical andlaboratory | | | | | | correlation recommended. | | | | | | CALLED NURSING | | | | | | [facility]6 RP @ 1227 | | | | | | BY [employer] RESULTS | | | | | | VERIFIEDTesting | | | | | | performed at [facility];[address] | | | | | [address];[place] | | | | | | [id number] | | | | + + + + + + + + | Specimen | + + | Blood | + + + + + + + | Performing | Address | City/State/Zipcode | Phone Number | | Organization | | | | + + + + + | [facility] | [address] | [place] [address] | [phone] | + + + + + ECG 12 lead (02/11/2019 8:53 AM PDT) + + + + + + | Component | Value | Ref Range | Performed | Pathologist | | | | | At | Signature | + + + + + + | VENTRICULAR | 84 | BPM | [facility] | | | RATE EKG | | | | | + + + + + + | ATRIAL RATE | 84 | BPM | [facility] | | + + + + + + | P-R | 140 | ms | [facility] | | | INTERVAL | | | | | + + + + + + | QRS | 122 | ms | [facility] | | | DURATION | | | | | + + + + + + | Q-T | 372 | ms | [facility] | | | INTERVAL | | | | | + + + + + + | Q-T | 439 | ms | [facility] | | | INTERVAL | | | | | | (CORRECTED) | | | | | + + + + + + | P WAVE AXIS | 25 | degrees | [facility] | | + + + + + + | QRS AXIS | 50 | degrees | [facility] | | + + + + + + | T AXIS | -62 | degrees | [facility] | | + + + + + + | INTERPRETAT | Normal sinus | | [facility] | | | ION TEXT | rhythmNon-specific | | | | | | intra-ventricular | | | | | | conduction delayAbnormal | | | | | | ECGWhen compared with | | | | | | ECG of 11-FEB-2019 | | | | | | 03:13,No significant | | | | | | change was | | | | | | foundConfirmed by ALLY | | | | | | JULIAN LEUNG ([id number]) on | | | | | | 02/11/2019 2:45:10 PM | | | | + + + + + + + + | Specimen | + + | | + + + + + | Narrative | Performed At | + + + | | | + + + + +---------+ + + | Performing | Address | City/State/Zipcode | Phone Number | | Organization | | | | + +---------+ + + | [facility] | | | | + +---------+ + + CK Total (02/11/2019 7:43 AM PDT) + + + + + + | Component | Value | Ref Range | Performed | Pathologist | | | | | At | Signature | + + + + + + | CK TOTAL | 336Comment: Testing | 55 - 400 U/L | [facility] | | | | performed at [facility];[address] | | LABORATORY | | | | [address];[place] | | | | | | [address] | | | | + + + + + + + + | Specimen | + + | Blood | + + + + + + + | Performing | Address | City/State/Zipcode | Phone Number | | Organization | | | | + + + + + | [facility] | [address] | [place] [address] | [phone] | + + + + + TSH (02/11/2019 7:43 AM PDT) + + + + + + | Component | Value | Ref Range | Performed | Pathologist | | | | | At | Signature | + + + + + + | TSH | 0.779Comment: Testing | 0.450 - 5.100 | [facility] | | | | performed at [facility];888 | uIU/mL | LABORATORY | | | | [address];[place], [place] | | | | | | [address] | | | | + + + + + + + + | Specimen | + + | Blood | + + + + + + + | Performing | Address | City/State/Zipcode | Phone Number | | Organization | | | | + + + + + | [facility] | [address] | [place] [address] | [phone] | + + + + + B Type Natriuretic Peptide (02/11/2019 7:43 AM PDT) + + + + + + | Component | Value | Ref Range | Performed | Pathologist | | | | | At | Signature | + + + + + + | BNP | 406.69 (H)Comment: | 0 - 100 pg/mL | [facility] | | | | Testing performed at | | LABORATORY | | | | [facility];[address];[place] [address] | | | | + + + + + + + + | Specimen | + + | Blood | + + + + + + + | Performing | Address | City/State/Zipcode | Phone Number | | Organization | | | | + + + + + | [facility] | [address] | [place] [address] | [phone] | + + + + + Lipid Panel (02/11/2019 7:43 AM PDT) + + + + + + | Component | Value | Ref Range | Performed | Pathologist | | | | | At | Signature | + + + + + + | Cholesterol | 159 | <200 mg/dL | [facility] | | | | | | LABORATORY | | + + + + + + | Triglycerid | 100 | <150 mg/dL | [facility] | | | es | | | LABORATORY | | + + + + + + | HDL | 44 | >40 mg/dL | [facility] | | | | | | LABORATORY | | + + + + + + | LDL, | 95Comment: Testing | <100 mg/dL | [facility] | | | Calculated | performed at [facility], [address] | | LABORATORY | | | | [address], | | | | | | [place] [address] | | | | + + + + + + + + | Specimen | + + | Blood | + + + + + + + | Performing | Address | City/State/Zipcode | Phone Number | | Organization | | | | + + + + + | [facility] | [address] | [place] [address] | [phone] | + + + + + Comprehensive Metabolic Panel (02/11/2019 7:43 AM PDT) + + + + + + | Component | Value | Ref Range | Performed | Pathologist | | | | | At | Signature | + + + + + + | Na | 142 | 135 - 145 | [facility] | | | | | mmol/L | LABORATORY | | + + + + + + | K | 4.8 | 3.5 - 4.9 | [facility] | | | | | mmol/L | LABORATORY | | + + + + + + | Cl | 117 (H) | 99 - 109 mmol/L | [facility] | | | | | | LABORATORY | | + + + + + + | CO2 | 19 (L) | 23 - 32 mmol/L | [facility] | | | | | | LABORATORY | | + + + + + + | Anion Gap | 11 | 5 - 20 mmol/L | [facility] | | | | | | LABORATORY | | + + + + + + | Glucose | 139 (H) | 65 - 99 mg/dL | [facility] | | | | | | LABORATORY | | + + + + + + | BUN | 44 (H) | 8 - 25 mg/dL | [facility] | | | | | | LABORATORY | | + + + + + + | Creatinine | 1.8 (H) | 0.70 - 1.30 | [facility] | | | | | mg/dL | LABORATORY | | + + + + + + | BUN/Creatin | 24 | | [facility] | | | ine Ratio | | | LABORATORY | | + + + + + + | Calcium | 8.7 | 8.5 - 10.5 | [facility] | | | | | mg/dL | LABORATORY | | + + + + + + | Protein, | 6.7 | 6.3 - 8.2 g/dL | [facility] | | | Total | | | LABORATORY | | + + + + + + | Albumin | 2.6 (L) | 3.6 - 5.0 g/dL | [facility] | | | | | | LABORATORY | | + + + + + + | Globulin | 4.1 | 1.3 - 4.9 g/dL | [facility] | | | | | | LABORATORY | | + + + + + + | A/G Ratio | 0.6 (L) | 1.0 - 2.4 | [facility] | | | | | | LABORATORY | | + + + + + + | BILIRUBIN, | 0.5 | 0.1 - 1.5 mg/dL | [facility] | | | TOTAL | | | LABORATORY | | + + + + + + | ALK PHOS | 79 | 35 - 115 U/L | [facility] | | | | | | LABORATORY | | + + + + + + | AST | 59 (H) | 10 - 45 U/L | [facility] | | | | | | LABORATORY | | + + + + + + | ALT | 41 | 10 - 65 U/L | [facility] | | | | | | LABORATORY | | + + + + + + | Estimated | 40 (L)Comment: GFR <60: | >60 | [facility] | | | GFR | CHRONIC KIDNEY DISEASE, | mL/min/1.73m2 | LABORATORY | | | | IF FOUND OVER A 3 MONTH | | | | | | PERIOD.GFR <15: KIDNEY | | | | | | FAILURE.FOR | | | | | | AMERICANS, MULTIPLY THE | | | | | | CALCULATED GFR BY | | | | | | 1.210.This eGFR is | | | | | | calculated using the | | | | | | MDRD IDHI traceable | | | | | | equation.Testing | | | | | | performed at [facility], [address] | | | | | | [facility], | | | | | | [place] [address] | | | | + + + + + + + + | Specimen | + + | Blood | + + + + + + + | Performing | Address | City/State/Zipcode | Phone Number | | Organization | | | | + + + + + | [facility] | [address] | [place] [address] | [phone] | + + + + + CBC no Differential (02/11/2019 7:43 AM PDT) + + + + + + | Component | Value | Ref Range | Performed | Pathologist | | | | | At | Signature | + + + + + + | WBC | 9.78 | 3.80 - 11.00 | [facility] | | | | | K/uL | LABORATORY | | + + + + + + | RBC | 3.63 (L) | 4.20 - 5.70 | [facility] | | | | | M/uL | LABORATORY | | + + + + + + | Hemoglobin | 11.9 (L) | 13.2 - 17.0 | [facility] | | | | | g/dL | LABORATORY | | + + + + + + | Hematocrit | 33.6 (L) | 39.0 - 50.0 % | [facility] | | | | | | LABORATORY | | + + + + + + | MCV | 92.7 | 80.0 - 100.0 fl | [facility] | | | | | | LABORATORY | | + + + + + + | MCH | 32.7 | 27.0 - 34.0 pg | [facility] | | | | | | LABORATORY | | + + + + + + | MCHC | 35.3 | 32.0 - 35.5 | [facility] | | | | | g/dL | LABORATORY | | + + + + + + | RDW-SD | 43.3 | 37 - 53 fl | [facility] | | | | | | LABORATORY | | + + + + + + | Platelet | 198 | 150 - 400 K/uL | [facility] | | | Count | | | LABORATORY | | + + + + + + | MPV | 8.3Comment: Testing | fl | [facility] | | | | performed at [facility], [address] | | LABORATORY | | | | [address], | | | | | | [place] [address] | | | | + + + + + + + + | Specimen | + + | Blood | + + + + + + + | Performing | Address | City/State/Zipcode | Phone Number | | Organization | | | | + + + + + | [facility] | [address] | [place] [address] | [phone] | + + + + + Troponin I (02/11/2019 7:43 AM PDT) + + + + + + | Component | Value | Ref Range | Performed | Pathologist | | | | | At | Signature | + + + + + + | Troponin I | 11.863 ()Comment: | 0.00 - 0.04 | [facility] | | | | 0.04 ng/mL or less | ng/mL | LABORATORY | | | | Negative, repeat | | | | | | testing in four to six | | | | | | hour ifclinically | | | | | | indicted0.05 to 0.77 | | | | | | ng/mL | | | | | | Suspicious for | | | | | | myocardial injury. | | | | | | Serial measurementsmay | | | | | | be necessary to confirm | | | | | | or exclude the diagnosis | | | | | | of acute | | | | | | coronarysyndrome. Repeat | | | | | | testing in four to six | | | | | | hours if indicated.0.78 | | | | | | or greater ng/mL | | | | | | Consistent with | | | | | | myocardial injury. | | | | | | Clinical andlaboratory | | | | | | correlation recommended. | | | | | | CALLED NURSING | | | | | | UNITMELODY V/6RP @ 5028 | | | | | | BY [employer] RESULTS | | | | | | VERIFIEDTesting | | | | | | performed at [facility];[address] | | | | | | [facility];[place], [place] | | | | | | [address] | | | | + + + + + + + + | Specimen | + + | Blood | + + + + + + + | Performing | Address | City/State/Zipcode | Phone Number | | Organization | | | | + + + + + | [facility] | [address] | [place] [address] | [phone] | + + + + + POC Glucose (02/11/2019 6:10 AM PDT) + + + + + + | Component | Value | Ref Range | Performed | Pathologist | | | | | At | Signature | + + + + + + | Glucose, | 126 (H)Comment: Testing | 65 - 99 mg/dL | [facility] | | | POC | performed at [facility];[address] | | LABORATORY | | | | [address];[place] | | | | | | [address] | | | | + + + + + + + + | Specimen | + + | | + + + + + + + | Performing | Address | City/State/Zipcode | Phone Number | | Organization | | | | + + + + + | [facility] | [address] | [place] [address] | [phone] | + + + + + Troponin I (02/11/2019 3:56 AM PDT) + + + + + + | Component | Value | Ref Range | Performed | Pathologist | | | | | At | Signature | + + + + + + | Troponin I | 9.098 ()Comment: | 0.00 - 0.04 | [facility] | | | | 0.04 ng/mL or less | ng/mL | LABORATORY | | | | Negative, repeat | | | | | | testing in four to six | | | | | | hour ifclinically | | | | | | indicted0.05 to 0.77 | | | | | | ng/mL | | | | | | Suspicious for | | | | | | myocardial injury. | | | | | | Serial measurementsmay | | | | | | be necessary to confirm | | | | | | or exclude the diagnosis | | | | | | of acute | | | | | | coronarysyndrome. Repeat | | | | | | testing in four to six | | | | | | hours if indicated.0.78 | | | | | | or greater ng/mL | | | | | | Consistent with | | | | | | myocardial injury. | | | | | | Clinical andlaboratory | | | | | | correlation recommended. | | | | | | CALLED TO DR. ANTHONY/RILEY | | | | | | AT 0435 BY MWREAD BACK | | | | | | RESULTS VERIFIEDTesting | | | | | | performed at [facility] | | | | | | [facility];[place], [place] | | | | | | [address] | | | | + + + + + + + + | Specimen | + + | Blood | + + + + + + + | Performing | Address | City/State/Zipcode | Phone Number | | Organization | | | | + + + + + | [facility] | [address] | [place] [address] | [phone] | + + + + + ECG 12 lead (02/11/2019 3:13 AM PDT) + + + + + + | Component | Value | Ref Range | Performed | Pathologist | | | | | At | Signature | + + + + + + | VENTRICULAR | 82 | BPM | [facility] | | | RATE EKG | | | | | + + + + + + | ATRIAL RATE | 82 | BPM | [facility] | | + + + + + + | P-R | 132 | ms | [facility] | | | INTERVAL | | | | | + + + + + + | QRS | 122 | ms | [facility] | | | DURATION | | | | | + + + + + + | Q-T | 368 | ms | [facility] | | | INTERVAL | | | | | + + + + + + | Q-T | 429 | ms | [facility] | | | INTERVAL | | | | | | (CORRECTED) | | | | | + + + + + + | P WAVE AXIS | 28 | degrees | [facility] | | + + + + + + | QRS AXIS | 53 | degrees | [facility] | | + + + + + + | T AXIS | -59 | degrees | [facility] | | + + + + + + | INTERPRETAT | Normal sinus | | [facility] | | | ION TEXT | rhythmNon-specific | | | | | | intra-ventricular | | | | | | conduction delayST & T | | | | | | wave abnormality, | | | | | | consider inferior | | | | | | ischemiaAbnormal ECGWhen | | | | | | compared with ECG of | | | | | | 12-AUG-2016 | | | | | | 11:17,Previous ECG has | | | | | | undetermined rhythm, | | | | | | needs reviewQRS duration | | | | | | has increasedT wave | | | | | | inversion now evident in | | | | | | Inferior leadsThis ECG | | | | | | contains Unconfirmed | | | | | | Interpretation | | | | | | Statements. See ED | | | | | | Record for Physician | | | | | | Interpretation. | | | | | | Confirmed by MUSE READ | | | | | | ONLY, -COMPUTER ([id number]), | | | | | | editorial writer Shea Fajardo | | | | | | ([id number]) on 02/11/2019 | | | | | | 12:59:59 PM | | | | + + + + + + + + | Specimen | + + | | + + + + + | Narrative | Performed At | + + + | | | + + + + +---------+ + + | Performing | Address | City/State/Zipcode | Phone Number | | Organization | | | | + +---------+ + + | [facility] | | | | + +---------+ + + documented in this encounter Visit Diagnoses + + | Diagnosis | + + | NSTEMI (non-ST elevated myocardial infarction) (HCC) Acute myocardial infarction, | | subendocardial infarction, episode of care unspecified | + + documented in this encounter Administered Medications + +--------+ +--------+------+------+ | Medication Order | MAR | Action | Dose | Rate | Site | | | Action | Date | | | | + +--------+ +--------+------+------+ | acetaminophen (TYLENOL) tablet | Given | 02/28/20 | 650 mg | | | | 650 mg 650 mg, Oral, EVERY 4 | | 19 8:00 | | | | | HOURS PRN, Pain, Starting Tue | | AM PST | | | | | 02/20/19 at 0945, Start 8 hours | | | | | | | after pre-op dose., | | | | | | + +--------+ +--------+------+------+ +-------+ +--------+---+---+ | Given | 02/27/20 | 650 mg | | | | | 19 8:35 | | | | | | PM PST | | | | +-------+ +--------+---+---+ | Given | 02/21/20 | 650 mg | | | | | 19 8:50 | | | | | | PM PDT | | | | +-------+ +--------+---+---+ +---+---+ | | | +---+---+ + +---------+ +--------+-------+---+ | albumin 5% IVPB 25 g 25 g, | New Bag | 02/16/20 | 12.5 g | 500 | | | Intravenous, Administer over 1 | | 19 7:30 | | mL/hr | | | Hours, PRN, see PRN parameter, | | PM PDT | | | | | Starting Cookie 02/15/19 at 1323, | | | | | | | For 3 doses, Give PRN SBP Less | | | | | | | than: 90 | | | | | | + +---------+ +--------+-------+---+ +---------+ +--------+-------+---+ | New Bag | 02/16/20 | 12.5 g | 500 | | | | 19 6:19 | | mL/hr | | | | PM PDT | | | | +---------+ +--------+-------+---+ +---+---+ | | | +---+---+ + +-------+ +--------+---+---+ | aspirin EC tablet 162 mg 162 | Given | 02/29/20 | 162 mg | | | | mg, Oral, DAILY, First dose | | 19 8:13 | | | | | (after last modification) on Mon | | AM PST | | | | | 02/26/19 at 0900 | | | | | | + +-------+ +--------+---+---+ +-------+ +--------+---+---+ | Given | 02/28/20 | 162 mg | | | | | 19 7:56 | | | | | | AM PST | | | | +-------+ +--------+---+---+ | Given | 02/27/20 | 162 mg | | | | | 19 8:13 | | | | | | AM PST | | | | +-------+ +--------+---+---+ +---+---+ | | | +---+---+ + +-------+ +-------+---+---+ | atorvaSTATin (LIPITOR) tablet | Given | 02/28/20 | 40 mg | | | | 40 mg 40 mg, Oral, NIGHTLY, | | 19 7:59 | | | | | First dose on Cookie 02/15/19 at | | PM PST | | | | | 2100 | | | | | | + +-------+ +-------+---+---+ +-------+ +-------+---+---+ | Given | 02/27/20 | 40 mg | | | | | 19 7:26 | | | | | | PM PST | | | | +-------+ +-------+---+---+ | Given | 02/26/20 | 40 mg | | | | | 19 7:58 | | | | | | PM PST | | | | +-------+ +-------+---+---+ +---+---+ | | | +---+---+ + +-------+ + +---+---+ | bacitracin injection PRN, | Given | 02/16/20 | 100,000 | | | | Starting Cookie 02/15/19 at 0813, | | 19 8:13 | Units | | | | Intra-op | | AM PDT | | | | + +-------+ + +---+---+ + +---+ | | | + +---+ | dextrose 10% (D10W) infusion | | | at 50 mL/hr, Intravenous, | | | CONTINUOUS PRN, hypoglycemia, | | | Starting 02/16/19 at 1136, | | | Start infusion if unable to | | | maintain blood glucose greater | | | than 70 mg/dL after two rounds of | | | hypoglycemia treatment. Recheck | | | blood glucose 30 minutes after | | | starting D10W then at least | | | hourly and PRN until it is | | | discontinued. Call provider to | | | discuss parameters for D10W | | | discontinuation., | | + +---+ | | | + +---+ | dextrose 50% injection 12.5-25 | | | g 12.5-25 g, Intravenous, PRN, | | | Low Blood Sugar, Starting Fri | | | 02/16/19 at 1136, For blood | | | glucose 50-69 mg/dl - give 12.5 g | | | For blood glucose less than 50 | | | mg/dl - give 25 g, | | + +---+ | | | + +---+ + +-------+ +---------+---+ + | insulin detemir (LEVEMIR | Given | 02/28/20 | 5 Units | | Arm-Righ | | FLEXTOUCH) injection (pen) 5 | | 19 8:00 | | | t Upper | | Units 5 Units, Subcutaneous, | | PM PST | | | | | NIGHTLY, First dose (after last | | | | | | | modification) on Cookie 02/22/19 at | | | | | | | 2100, If the total daily dose of | | | | | | | Levemir is 40 units or greater, | | | | | | | it should be ordered as BID with | | | | | | | 1/2 of the dose in the morning | | | | | | | and 1/2 dose at bedtime., If NPO: | | | | | | | Other (see instruction), | | | | | | | Instruction: If patient is NPO or | | | | | | | not tolerating meals, HOLD all | | | | | | | scheduled insulin and give | | | | | | | Correction Scale doses only. | | | | | | + +-------+ +---------+---+ + +-------+ +---------+---+ + | Given | 02/27/20 | 5 Units | | Arm-Righ | | | 19 8:35 | | | t Upper | | | PM PST | | | | +-------+ +---------+---+ + | Given | 02/26/20 | 5 Units | | Arm-Left | | | 19 9:43 | | | Upper | | | PM PST | | | | +-------+ +---------+---+ + +---+---+ | | | +---+---+ + +-------+ +---------+---+ + | insulin lispro (humaLOG) | Given | 02/29/20 | 2 Units | | Arm-Righ | | injection (vial) 0-14 Units 0-14 | | 19 8:13 | | | t Upper | | Units, Subcutaneous, 3 TIMES | | AM PST | | | | | DAILY WITH MEALS, First dose on | | | | | | | 02/16/19 at 1200, [employer] | | | | | | | Correctional Scale: For Blood | | | | | | | Glucose (BG): 142 to 180 Give | | | | | | | 2 units 181 to 220 Give 4 units | | | | | | | 221 to 260 Give 6 units 261 to | | | | | | | 300 Give 8 units 301 to 350 | | | | | | | Give 10 units 351 to 400 Give | | | | | | | 12 units Over 400 Give 14 | | | | | | | units Only for use with U-100 | | | | | | | insulin syringe., | | | | | | + +-------+ +---------+---+ + +-------+ +---------+---+ + | Given | 02/28/20 | 4 Units | | Abdomen- | | | 19 5:39 | | | RUQ | | | PM PST | | | | +-------+ +---------+---+ + | Given | 02/28/20 | 2 Units | | Abdomen- | | | 19 12:26 | | | RUQ | | | PM PST | | | | +-------+ +---------+---+ + +---+---+ | | | +---+---+ + +-------+ +--------+---+---+ | magnesium oxide (MAG-OX) tablet | Given | 02/25/20 | 800 mg | | | | 800 mg 800 mg, Oral, DAILY PRN, | | 19 5:12 | | | | | Per protocol, Starting Sun | | PM PDT | | | | | 02/18/19 at 1135, NON-ICU | | | | | | | Protocol Replace magnesium once | | | | | | | per day based on morning | | | | | | | magnesium level. Use scale below | | | | | | | to determine dose. If further | | | | | | | replacement is required after | | | | | | | this morning dose of magnesium, | | | | | | | notify provider Protocol NOT | | | | | | | recommended if Scr > 1.8, | | | | | | | dialysis patients or CrCl < 50 | | | | | | | mL/min Magnesium = 1-1.9 mg/dL | | | | | | | Give magnesium oxide 800 mg PO | | | | | | | x1 * Check magnesium in AM If | | | | | | | unable to tolerate po or | | | | | | | magnesium < 1mg/dL use IV | | | | | | | magnesium replacement. Give PO or | | | | | | | IV but never both. Maximum | | | | | | | recommended infusion rate = 1 | | | | | | | gram/hour., | | | | | | + +-------+ +--------+---+---+ +-------+ +--------+---+---+ | Given | 02/23/20 | 800 mg | | | | | 19 8:04 | | | | | | AM PDT | | | | +-------+ +--------+---+---+ + +---+ | | | + +---+ | magnesium sulfate 2 g/50 mL | | | IVPB 2 g 2 g, Intravenous, | | | Administer over 120 Minutes, | | | DAILY PRN, Per protocol, Starting | | | 02/18/19 at 1135, NON-ICU | | | Protocol Replace magnesium once | | | per day based on morning | | | magnesium level. Use scale below | | | to determine dose. If further | | | replacement is required after | | | this morning dose of magnesium, | | | notify provider Protocol NOT | | | recommended if Scr > 1.8, | | | dialysis patients or CrCl < 50 | | | mL/min Magnesium = 1-1.9 mg/dL | | | Give magnesium sulfate 2 g IV x1 | | | * Check magnesium 2 hours | | | after infusion is completed If | | | magnesium still < 1.9 mg/dL, | | | contact provider for further | | | instruction. Give PO or IV but | | | never both. Maximum recommended | | | infusion rate = 1 gram/hour., | | + +---+ | | | + +---+ | magnesium sulfate 4 g/100 mL | | | IVPB 4 g 4 g, Intravenous, | | | Administer over 240 Minutes, | | | DAILY PRN, Per protocol, Starting | | | 02/18/19 at 1135, NON-ICU | | | Protocol Replace magnesium once | | | per day based on morning | | | magnesium level. Use scale below | | | to determine dose. If further | | | replacement is required after | | | this morning dose of magnesium, | | | notify provider Protocol NOT | | | recommended if Scr > 1.8, | | | dialysis patients or CrCl < 50 | | | mL/min Magnesium < 1 mg/dL | | | Give magnesium sulfate 4 g IV x1 | | | * Check magnesium 2 hours | | | after infusion is completed If | | | magnesium still < 1.9 mg/dL, | | | contact provider for further | | | instruction. Give PO or IV but | | | never both. Maximum recommended | | | infusion rate = 1 gram/hour., | | + +---+ | | | + +---+ + +-------+ +-------+---+---+ | metoprolol succinate | Given | 02/29/20 | 50 mg | | | | (TOPROL-XL) ER tablet 50 mg 50 | | 19 8:13 | | | | | mg, Oral, 2 TIMES DAILY, First | | AM PST | | | | | dose on 02/25/19 at 2100, | | | | | | | Tablet may be cut where scored | | | | | | | but do not crush., | | | | | | + +-------+ +-------+---+---+ +-------+ +-------+---+---+ | Given | 02/28/20 | 50 mg | | | | | 19 7:59 | | | | | | PM PST | | | | +-------+ +-------+---+---+ | Given | 02/28/20 | 50 mg | | | | | 19 7:55 | | | | | | AM PST | | | | +-------+ +-------+---+---+ +---+---+ | | | +---+---+ + +-------+ +------+---+---+ | ondansetron (ZOFRAN) injection | Given | 02/19/20 | 4 mg | | | | 4 mg 4 mg, Intravenous, EVERY 6 | | 19 5:18 | | | | | HOURS PRN, Nausea, Vomiting, | | AM PDT | | | | | Starting Cookie 02/15/19 at 1323, | | | | | | | First line agent Use PO option | | | | | | | unless NPO status or unable to | | | | | | | tolerate., | | | | | | + +-------+ +------+---+---+ +-------+ +------+---+---+ | Given | 02/18/20 | 4 mg | | | | | 19 4:03 | | | | | | PM PDT | | | | +-------+ +------+---+---+ | Given | 02/18/20 | 4 mg | | | | | 19 7:08 | | | | | | AM PDT | | | | +-------+ +------+---+---+ +---+---+ | | | +---+---+ + +-------+ +------+---+---+ | oxyCODONE (ROXICODONE) tablet | Given | 02/27/20 | 5 mg | | | | 5-20 mg 5-20 mg, Oral, EVERY 3 | | 19 11:42 | | | | | HOURS PRN, Pain, Starting Cookie | | PM PST | | | | | 02/15/19 at 1323, First dose must | | | | | | | be the lowest dose, can titrate | | | | | | | to effective dose by repeat of | | | | | | | lowest dose every 60 minutes prn | | | | | | | pain, may not exceed maximum dose | | | | | | | ordered per interval. Use Pasero | | | | | | | Sedation Scale., | | | | | | + +-------+ +------+---+---+ +-------+ +------+---+---+ | Given | 02/18/20 | 5 mg | | | | | 19 6:55 | | | | | | PM PDT | | | | +-------+ +------+---+---+ | Given | 02/18/20 | 5 mg | | | | | 19 5:10 | | | | | | AM PDT | | | | +-------+ +------+---+---+ +---+---+ | | | +---+---+ + +-------+ +-------+---+---+ | papaverine injection PRN, | Given | 02/16/20 | 60 mg | | | | Starting Cookie 02/15/19 at 0813, | | 19 8:13 | | | | | Intra-op | | AM PDT | | | | + +-------+ +-------+---+---+ +---+---+ | | | +---+---+ + +-------+ +--------+---+---+ | potassium chloride (KLOR-CON) | Given | 02/24/20 | 20 mEq | | | | ER tablet 20-40 mEq 20-40 mEq, | | 19 5:38 | | | | | Oral, DAILY PRN, Per protocol, | | PM PDT | | | | | Starting 02/18/19 at 1135, | | | | | | | NON-ICU Protocol Replace | | | | | | | potassium once per day based on | | | | | | | morning potassium level. Use | | | | | | | scale below to determine dose. If | | | | | | | further replacement is required | | | | | | | after this morning dose of | | | | | | | potassium, notify provider | | | | | | | Protocol NOT recommended if Scr > | | | | | | | 1.8, dialysis patients or CrCl < | | | | | | | 50 mL/min [K+] =3.6 - 4 mEql/L | | | | | | | Give 20 mEq KCl PO x 1 dose | | | | | | | [K+] 3.0 - 3.5 mEql/L Give 40 | | | | | | | mEq KCl PO x 1 dose [K+] < 3.0 | | | | | | | mEq/L Notify provider * | | | | | | | Recheck K+ 4 hours after | | | | | | | replacement is done. Give either | | | | | | | tablet, liquid, or IV but never | | | | | | | more than one form. If repeat K | | | | | | | is still < 3.5, contact provider | | | | | | | for further instruction. May take | | | | | | | with food to decrease GI upset., | | | | | | | | | | | | | + +-------+ +--------+---+---+ +-------+ +--------+---+---+ | Given | 02/23/20 | 20 mEq | | | | | 19 8:04 | | | | | | AM PDT | | | | +-------+ +--------+---+---+ + +---+ | | | + +---+ | potassium chloride (KLOR-CON) | | | packet 20-40 mEq 20-40 mEq, Per | | | G Tube, DAILY PRN, Per Protocol, | | | Starting 02/18/19 at 1135, | | | NON-ICU Protocol Replace | | | potassium once per day based on | | | morning potassium level. Use | | | scale below to determine dose. If | | | further replacement is required | | | after this morning dose of | | | potassium, notify provider | | | Protocol NOT recommended if Scr > | | | 1.8, dialysis patients or CrCl < | | | 50 mL/min [K+] =3.6 - 4 mEql/L | | | Give 20 mEq KCl PO x 1 dose | | | [K+] 3.0 - 3.5 mEql/L Give 40 | | | mEq KCl PO x 1 dose [K+] < 3.0 | | | mEq/L Notify provider * | | | Recheck K+ 4 hours after | | | replacement is done. Give either | | | tablet, liquid, or IV but never | | | more than one form. If repeat K | | | is still < 3.5, contact provider | | | for further instruction., | | + +---+ | | | + +---+ | potassium chloride 20 mEq in | | | sodium chloride 0.9% 250 mL IVPB | | | 20 mEq, Intravenous, Administer | | | over 2 Hours, DAILY PRN, Per | | | protocol, Starting 02/18/19 | | | at 1135, NON-ICU Protocol Replace | | | potassium once per day based on | | | morning potassium level. Use | | | scale below to determine dose. If | | | further replacement is required | | | after this morning dose of | | | potassium, notify provider | | | Protocol NOT recommended if Scr > | | | 1.8, dialysis patients or CrCl < | | | 50 mL/min [K+] =3.6 - 4 mEql/L | | | Give 20 mEq KCl IV X 1 dose | | | * Recheck K+ 2 hours after | | | replacement is done. Give either | | | tablet, liquid, or IV but never | | | more than one form. If repeat K | | | is still < 3.5, contact provider | | | for further instruction., | | + +---+ | | | + +---+ | potassium chloride 40 mEq in | | | sodium chloride 0.9% 500 mL IVPB | | | 40 mEq, Intravenous, Administer | | | over 4 Hours, DAILY PRN, Per | | | protocol, Starting 02/18/19 | | | at 1135, NON-ICU Protocol Replace | | | potassium once per day based on | | | morning potassium level. Use | | | scale below to determine dose. If | | | further replacement is required | | | after this morning dose of | | | potassium, notify provider | | | Protocol NOT recommended if Scr > | | | 1.8, dialysis patients or CrCl < | | | 50 mL/min [K+] 3.0 - 3.5 mEql/L | | | Give 40 mEq KCl IV X 1 dose | | | * Recheck K+ 2 hours after | | | replacement is done. Give either | | | tablet, liquid, or IV but never | | | more than one form. If repeat K | | | is still < 3.5, contact provider | | | for further instruction., | | + +---+ | | | + +---+ + +-------+ +---------+---+---+ | ringers 1,000 mL with verapamil | Given | 02/16/20 | 500 mLs | | | | 16.6 mg, nitroglycerin in | | 19 8:14 | | | | | dextrose 8.3 mg, heparin 1,660 | | AM PDT | | | | | Units, sodium bicarbonate 0.66 | | | | | | | mEq solution PRN, Starting Cookie | | | | | | | 02/15/19 at 0814, Intra-op | | | | | | + +-------+ +---------+---+---+ + +---+ | | | + +---+ | sodium bicarbonate tablet 650 | | | mg 650 mg, Oral, 3 TIMES DAILY, | | | First dose on Tue02/28/19 at 1015 | | + +---+ | | | + +---+ + +-------+ +--------+---+---+ | vancomycin 25 mg/mL liquid 125 | Given | 02/29/20 | 125 mg | | | | mg 125 mg, Oral, EVERY 6 HOURS | | 19 5:26 | | | | | (4 times per day), First dose | | AM PST | | | | | (after last modification) on Mon | | | | | | | 02/26/19 at 1200, For 25 doses, | | | | | | | Shake well. Keep in | | | | | | | refrigerator., Indications: | | | | | | | Clostridium Difficile Infection | | | | | | + +-------+ +--------+---+---+ +-------+ +--------+---+---+ | Given | 02/29/20 | 125 mg | | | | | 19 12:04 | | | | | | AM PST | | | | +-------+ +--------+---+---+ | Given | 02/28/20 | 125 mg | | | | | 19 6:07 | | | | | | PM PST | | | | +-------+ +--------+---+---+ +---+---+ | | | +---+---+ + +-------+ +------+---+---+ | warfarin (COUMADIN) tablet 3 mg | Given | 02/28/20 | 3 mg | | | | 3 mg, Oral, Daily - Warfarin, | | 19 5:39 | | | | | First dose (after last | | PM PST | | | | | modification) on 02/25/19 at | | | | | | | 1800, Reproductive Risk: Use | | | | | | | appropriate handling precautions. | | | | | | | Drug education required., | | | | | | + +-------+ +------+---+---+ +-------+ +------+---+---+ | Given | 02/27/20 | 3 mg | | | | | 19 5:20 | | | | | | PM PST | | | | +-------+ +------+---+---+ | Given | 02/26/20 | 3 mg | | | | | 19 5:05 | | | | | | PM PST | | | | +-------+ +------+---+---+ +---+---+ | | | +---+---+ documented in this encounter
--- OUTSIDE RECORDS SUMMARY | ~2019-04-07 | XMS | Encounter Summary ---
Demographics + + + | Address | [address] | | | [place] [address] | + + + | Home Phone | | + + + | Preferred Language | Unknown | + + + | Marital Status | Legally | + + + | Quaker Affiliation | 1041 | + + + | Race | Unknown | + + + | Ethnic Group | Unknown | + + + Author + + + | Author | [facility] | | | and [place] | + + + | Organization | [facility] | | [...] Team Providers + +------+ + | Care Electric Mule Driver Name | Role | Phone | + [...] | NEPHROLOGY [address] | | | | | [address] | [address] [place] | | | | | [place], [place] | [place] [address] | | | | | [address] | [phone] | | | | | [phone] | | | +--------+ + + + [...] [place] | | | | | | [place] [address] | | | | | | [phone] | | | | | | | | +--------+---------+ + + + documented as of this encounter Procedures + +--------+ + + + | Procedure Name | Priori | Date/Time | Associated Diagnosis | Comments | | | ty | | | | + +--------+ + + + | EXTERNAL LAB: PTH, | Routin | 07/03/2018 | | Results for this | | INTACT | e | | | procedure are in the | | | | | | results section. | + +--------+ + + + documented in this encounter Results External Lab: PTH, Intact (07/03/2018) + +-------+ + + + | Component | Value | Ref Range | Performed | Pathologist | | | | | At | Signature | + +-------+ + + + | PTH Intact, | 59.7 | 12 - 88 | | | | External | | | | | + +-------+ + + + + + | Specimen | + + | | + + documented in this encounter Visit Diagnoses Not on filedocumented in this encounter"
--- OUTSIDE RECORDS SUMMARY | ~2019-04-07 | XMS | Encounter Summary ---
Demographics + + + | Address | [address] | | | [place] [address] | + + + | Home Phone | | + + + | Preferred Language | Unknown | + + + | Marital Status | Legally | + + + | Temple Affiliation | 1041 | + + + | Race | Unknown | + + + | Ethnic Group | Unknown | + + + Author + + + | Author | [facility] | | | and [place] | + + + | Organization | [facility] | | | [...] Team Providers + +------+ + | Care Straight Knife Machine Cutter Name | Role | Phone | + +------+ + PCP | Unavailable | + +------+ + Reason for Visit + + + | Reason | Comments | + + + | Follow-up(Procedure) | CABGx4 f/u post 2 day discharge | + + + Encounter Details +--------+ + + + + | Date | Type | Department | Care Team | Description | +--------+ + + + + | 03/02/ | Telephone | [facility] | [facility], | Follow-up(Procedure) | | 2019 | | CARDIOTHORACIC | RN | (CABGx4 f/u post 2 | | | | SURGERY 1100 | | day discharge) | | | | [place] [facility] | | | | | | [facility] [place] | | | | | | [address] | | | | | | [phone] | | | +--------+ + + + [...] Sharma | | | | | | [place] | | | | | | [place] [address] | | | | | | [phone] | | | | | | | | +--------+---------+ + + + documented as of this encounter Visit Diagnoses Not on filedocumented in this encounter"
--- OUTSIDE RECORDS SUMMARY | ~2019-04-07 | XMS | Encounter Summary ---
Demographics + + + | Address | [address] | | | [place] [address] | + + + | Home Phone | | + + + | Preferred Language | Unknown | + + + | Marital Status | Legally | + + + | Druze Affiliation | 1041 | + + + | Race | Unknown | + + + | Ethnic Group | Unknown | + + + Author + + + | Author | [facility] | | | and [place] | + + + | Organization | [facility] | | | [...] Team Providers + +------+ + | Care Real Estate Agency Licensee Name | Role | Phone | + +------+ + PCP | Unavailable | + +------+ + Encounter Details +--------+ + + + + | Date | Type | Department | Care Team | Description | +--------+ + + + + | 09/14/ | Hospital | [facility] | Conversion | Diagnosis unknown | | 2018 | Encounter | [address] | Transaction, | | | | | [address] | Provider Unknown | | | | | [place], [place] | [phone] | | | | | [address] | | | | | | [phone] | | | +--------+ + + + [...] | | | | | | [place] [address] | | | | | | [phone] | | | | | | | | +--------+---------+ + + + documented as of this encounter Procedures + +--------+ + + + | Procedure Name | Priori | Date/Time | Associated Diagnosis | Comments | | | ty | | | | + +--------+ + + + | XR CHEST 1 VIEW | Routin | 09/10/2017 | | Results for this | | | e | 3:40 PM | | procedure are in the | | | | PDT | | results section. | + +--------+ + + + documented in this encounter Results XR Chest 1 Vw (09/10/2017 3:40 PM PDT) + + | Specimen | [...]
--- OUTSIDE RECORDS SUMMARY | ~2019-04-07 | XMS | Encounter Summary ---
Demographics + + + | Address | [address] | | | [place] [address] | + + + | Home Phone | | + + + | Preferred Language | Unknown | + + + | Marital Status | Legally | + + + | Sikh Affiliation | 1041 | + + + | Race | Unknown | + + + | Ethnic Group | Unknown | + + + Author + + + | Author | [facility] | | | and [place] | + + + | Organization | [facility] | | | [...] Team Providers + +------+ + | Care Mushroom Grower Name | Role | Phone | + [...] | NEPHROLOGY [address] | | | | | [address] | [address] [place] | | | | | [place], [place] | [place] [address] | | | | | [address] | [phone] | | | | | [phone] | | | +--------+ + + + [...] [place] | | | | | | [place] [address] | | | | | | [phone] | | | | | | | [...] | 1.017 | | | | | [place], | | | | | | External [...]
--- OUTSIDE RECORDS SUMMARY | ~2019-04-07 | XMS | Encounter Summary ---
Demographics + + + | Address | [address] | | | [place] [address] | + + + | Home Phone | | + + + | Preferred Language | Unknown | + + + | Marital Status | Legally | + + + | Pentecostal Affiliation | 1041 | + + + | Race | Unknown | + + + | Ethnic Group | Unknown | + + + Author + + + | Author | [facility] | | | and [place] | + + + | Organization | [facility] | | | and [...] Team Providers + +------+ + | Care Warehouse Team Member Name | Role | Phone | + +------+ + PCP | Unavailable | + +------+ + Encounter Details +--------+ + + + + | Date | Type | Department | Care Team | Description | +--------+ + + + + | 10/29/ | Orders Only | [facility] | Shantel Becerra | | | 2013 | | CONVERSION | MD [address] | | | | | INTERFACES | [place] | | | | | [phone] | [address] | | | | | | | | +--------+ + + + + Social History + +-------+ +--------+------+ | Tobacco Use | Types | Packs/Day | Years | Date | | | | | Used | | + +-------+ +--------+------+ | Never Assessed | | | | | + +-------+ +--------+------+ + + + | Sex Assigned at [...] 06/19/ | Office | Nephrology | Shea Pedraza W, | | | 2019 | Visit | | [address] | | | | | | [address] [place] | | | | | | [place] [address] | | | | | | [phone] | | | | | | | | +--------+---------+ + + + documented as of this encounter Procedures + +--------+ + + + | Procedure Name | Priori | Date/Time | Associated Diagnosis | Comments | | | ty | | | | + +--------+ + + + | ECHO COMPLETE | Routin | 10/29/2013 | | Results for this | | | e | 8:39 AM | | procedure are in the | | | | PDT | | results section. | + +--------+ + + + documented in this encounter Results ECHO Complete (10/29/2013 8:39 AM PDT) + + | Specimen | + + | | + + + + + | Impressions | Performed At | + + + | 1. Overall left ventricular systolic function is normal with, an EF | | | between 60 - 65 %. 2. Mild mitral regurgitation is present. | | + + + + + + | Narrative | Performed At | + + + | Patient Name: LIVE ROJAS Date of : 1965 | | | Performing Physician: Shantel Becerra | | | MD | | | INDICATIONS AFIB, CAD CONCLUSIONS 1. | | | Overall left ventricular systolic function is normal with, an EF | | | between 60 - 65 %. 2. Mild mitral regurgitation is present. | | | FINDINGS -------- Study: A 2-dimensional transthoracic | | | echocardiogram with m-mode, spectral and color flow Doppler was | | | perfomed. Study: This was a technically good study. Left Ventricle: | | | Overall left ventricular systolic function is normal with, an EF | | | between 60 - 65 %. Left Ventricle: The left ventricle size is normal. | | | Left Ventricle: Left ventricular wall thickness is normal. Right | | | Ventricle: The right ventricle is normal in size and function. Left | | | Atrium: The left atrial size is normal. Right Atrium: The right | | | atrial size is normal. Aortic Valve: Aortic valve is trileaflet and | | | is mildly thickened. Aortic Valve: There is no evidence of aortic | | | regurgitation. Aortic Valve: There is no evidence of aortic stenosis. | | | Mitral Valve: Mild mitral regurgitation is present. Mitral Valve: | | | Mild thickening of the anterior mitral valve leaflet. Mitral Valve: | | | There is mild thickening of the posterior mitral valve leaflet. | | | Tricuspid Valve: The tricuspid valve appears structurally normal. | | | Tricuspid Valve: Trace tricuspid regurgitation present. Tricuspid | | | Valve: The right ventricular systolic pressure, as measured by | | | Doppler, is 20 mmHg +cvp. Pulmonic Valve: The pulmonic valve is | | | normal. Pulmonic Valve: Trace/mild (physiologic) pulmonic | | | regurgitation. Pericardium: There is no pericardial effusion. | | | IVC/Hepatic Veins: The inferior vena cava is not visualized. Aorta: | | | The aortic root, ascending aorta and aortic arch are normal. Mass: No | | | mass visualized Thrombus: No clot visualized Thrombus: No | | | vegetation visualized. Septum: No atrial septal defect or ventricular | | | septal defect observed. MEASUREMENTS Ao asc: | | | 3.11 cm EDV(Teich): 109.25 ml IVSd: 0.96 cm LVIDd: 4.83 cm | | | LVPWd: 0.99 cm %FS: 33.99 % EF(Teich): 62.79 % | | | ESV(Teich): 40.64 ml LVIDs: 3.18 cm SV(Teich): 68.60 ml | | | RVIDd: 2.97 cm LVEF MOD A2C: 50.07 % SV MOD A2C: 57.84 ml | | | LVEF MOD A4C: 58.67 % SV MOD A4C: 98.95 ml EF Biplane: | | | 55.50 % LVEDV MOD BP: 144.05 ml LVESV MOD BP: 64.10 ml LVEDV | | | MOD A2C: 115.52 ml LVLd A2C: 8.65 cm LVEDV MOD A4C: 168.63 | | | ml LVLd A4C: 9.25 cm LVESV MOD A2C: 57.68 ml LVLs A2C: | | | 7.37 cm LVESV MOD A4C: 69.68 ml LVLs A4C: 7.68 cm LAESV(A-L): | | | 48.91 ml LAESV Index (A-L): 22.75 ml/m2 LAAs A2C: 14.66 | | | cm2 LAESV A-L A2C: 40.20 ml LALs A2C: 4.54 cm LAAs A4C: | | | 17.84 cm2 LAESV A-L A4C: 54.46 ml LALs A4C: 4.96 cm RAAs: | | | 12.06 cm2 RAESV A-L: 28.20 ml RAESV MOD: 26.69 ml RALs: | | | 4.38 cm Ao Diam: 3.74 cm LA Diam: 4.25 cm LA/Ao: 1.13 AV | | | maxP.07 mmHg AV meanP.38 mmHg AV Vmax: 1.00 m/s AV | | | Vmean: 0.73 m/s AV VTI: 19.62 cm MV A Jayy: 0.47 m/s MV | | | DecT: 183.34 ms MV E Jayy: 0.58 m/s MV E/A Ratio: 1.23 | | | Septal e': 0.06 m/s Septal E/e': 9.70 Lateral e': 0.09 m/s | | | Lateral E/e': 6.22 PV maxP.20 mmHg PV Vmax: 0.74 m/s | | | TR maxP.70 mmHg TR Vmax: 2.21 m/s Commissioning Manager: PATRICIA | | | Authenticated by: Shantel Becerra MD Report Date/Time: 10-29-2013 | | | 10:49:17 | | + + + + + | Procedure Note | + + | Hugn Pagan Conversion - 12/15/2018 9:10 AM PDT Patient Name: Sriram ROJAS | | of : 1965 Performing Physician: Shantel Becerra | | INDICATIONS A | | FIB, CAD CONCLUSIONS 1. Overall left ventricular systolic function is normal | | with, an EF between 60 - 65 %.2. Mild mitral regurgitation is present. | | FINDINGS--------Study: A 2-dimensional transthoracic echocardiogram with m-mode, | | spectral and color flow Doppler was perfomed.Study: This was a technically good | | study.Left Ventricle: Overall left ventricular systolic function is normal with, an EF | | between 60 - 65 %.Left Ventricle: The left ventricle size is normal.Left Ventricle: Left | | ventricular wall thickness is normal.Right Ventricle: The right ventricle is normal in | | size and function.Left Atrium: The left atrial size is normal.Right Atrium: The right | | atrial size is normal.Aortic Valve: Aortic valve is trileaflet and is mildly | | thickened.Aortic Valve: There is no evidence of aortic regurgitation.Aortic Valve: There | | is no evidence of aortic stenosis.Mitral Valve: Mild mitral regurgitation is | | present.Mitral Valve: Mild thickening of the anterior mitral valve leaflet.Mitral Valve: | | There is mild thickening of the posterior mitral valve leaflet.Tricuspid Valve: The | | tricuspid valve appears structurally normal.Tricuspid Valve: Trace tricuspid | | regurgitation present.Tricuspid Valve: The right ventricular systolic pressure, as | | measured by Doppler, is 20 mmHg +cvp.Pulmonic Valve: The pulmonic valve is | | normal.Pulmonic Valve: Trace/mild (physiologic) pulmonic regurgitation.Pericardium: | | There is no pericardial effusion.IVC/Hepatic Veins: The inferior vena cava is not | | visualized.Aorta: The aortic root, ascending aorta and aortic arch are normal.Mass: No | | mass visualizedThrombus: No clot visualizedThrombus: No vegetation visualized.Septum: No | | atrial septal defect or ventricular septal defect observed. MEASUREMENTS Ao | | asc: 3.11 cmEDV(Teich): 109.25 mlIVSd: 0.96 cmLVIDd: 4.83 cmLVPWd: 0.99 | | cm%FS: 33.99 %EF(Teich): 62.79 %ESV(Teich): 40.64 mlLVIDs: 3.18 cmSV(Teich): | | 68.60 mlRVIDd: 2.97 cmLVEF MOD A2C: 50.07 %SV MOD A2C: 57.84 mlLVEF MOD A4C: | | 58.67 %SV MOD A4C: 98.95 mlEF Biplane: 55.50 %LVEDV MOD BP: 144.05 mlLVESV MOD BP: | | 64.10 mlLVEDV MOD A2C: 115.52 mlLVLd A2C: 8.65 cmLVEDV MOD A4C: 168.63 mlLVLd | | A4C: 9.25 cmLVESV MOD A2C: 57.68 mlLVLs A2C: 7.37 cmLVESV MOD A4C: 69.68 mlLVLs | | A4C: 7.68 cmLAESV(A-L): 48.91 mlLAESV Index (A-L): 22.75 ml/m2LAAs A2C: 14.66 | | ld2OHWTH A-L A2C: 40.20 mlLALs A2C: 4.54 cmLAAs A4C: 17.84 [id number] A-L A4C: | | 54.46 mlLALs A4C: 4.96 cmRAAs: 12.06 [id number] A-L: 28.20 mlRAESV MOD: 26.69 | | mlRALs: 4.38 cmAo Diam: 3.74 cmLA Diam: 4.25 cmLA/Ao: 1.13AV maxP.07 | | mmHgAV meanP.38 mmHgAV Vmax: 1.00 m/Ly Vmean: 0.73 m/Ly VTI: 19.62 cmMV A | | Jayy: 0.47 m/sMV DecT: 183.34 msMV E Jayy: 0.58 m/sMV E/A Ratio: 1.23Septal e': | | 0.06 m/sSeptal E/e': 9.70Lateral e': 0.09 m/sLateral E/e': 6.22PV maxP.20 | | mmHgPV Vmax: 0.74 m/sTR maxP.70 mmHgTR Vmax: 2.21 m/s Commissioning Manager: | | DBSAuthenticated by: Shantel Becerra MDReport Date/Time: 10-29-2013 10:49:17 | | IMPRESSION: 1. Overall left ventricular systolic function is normal with, an EF between | | 60 - 65 %.2. Mild mitral regurgitation is present. | |Mass: No mass visualized | |Thrombus: No clot visualized | |Thrombus: No vegetation visualized. | |Septum: No atrial septal defect or ventricular septal defect observed. | | | |MEASUREMENTS | | | |Ao asc: 3.11 cm | |EDV(Teich): 109.25 ml | |IVSd: 0.96 cm | |LVIDd: 4.83 cm | |LVPWd: 0.99 cm | |%FS: 33.99 % | |EF(Teich): 62.79 % | |ESV(Teich): 40.64 ml | |LVIDs: 3.18 cm | |SV(Teich): 68.60 ml | |RVIDd: 2.97 cm | |LVEF MOD A2C: 50.07 % | |SV MOD A2C: 57.84 ml | |LVEF MOD A4C: 58.67 % | |SV MOD A4C: 98.95 ml | |EF Biplane: 55.50 % | |LVEDV MOD BP: 144.05 ml | |LVESV MOD BP: 64.10 ml | |LVEDV MOD A2C: 115.52 ml | |LVLd A2C: 8.65 cm | |LVEDV MOD A4C: 168.63 ml | |LVLd A4C: 9.25 cm | |LVESV MOD A2C: 57.68 ml | |LVLs A2C: 7.37 cm | |LVESV MOD A4C: 69.68 ml | |LVLs A4C: 7.68 cm | |LAESV(A-L): 48.91 ml | |LAESV Index (A-L): 22.75 ml/m2 | |LAAs A2C: 14.66 cm2 | |LAESV A-L A2C: 40.20 ml | |LALs A2C: 4.54 cm | |LAAs A4C: 17.84 cm2 | |LAESV A-L A4C: 54.46 ml | |LALs A4C: 4.96 cm | |RAAs: 12.06 cm2 | |RAESV A-L: 28.20 ml | |RAESV MOD: 26.69 ml | |RALs: 4.38 cm | |Ao Diam: 3.74 cm | |LA Diam: 4.25 cm | |LA/Ao: 1.13 | |AV maxP.07 mmHg | |AV meanP.38 mmHg | |AV Vmax: 1.00 m/s | |AV Vmean: 0.73 m/s | |AV VTI: 19.62 cm | |MV A Jayy: 0.47 m/s | |MV DecT: 183.34 ms | |MV E Jayy: 0.58 m/s | |MV E/A Ratio: 1.23 | |Septal e': 0.06 m/s | |Septal E/e': 9.70 | |Lateral e': 0.09 m/s | |Lateral E/e': 6.22 | |PV maxP.20 mmHg | |PV Vmax: 0.74 m/s | |TR maxP.70 mmHg | |TR Vmax: 2.21 m/s | | | |Commissioning Manager: DBS | |Authenticated by: Shantel Becerra MD | |Report Date/Time: 10-29-2013 10:49:17 | | | |IMPRESSION: | |1. Overall left ventricular systolic function is normal with, an EF between 60 - 65 %. | |2. Mild mitral regurgitation is present. | + + documented in this encounter Visit Diagnoses Not on filedocumented in this encounter"
--- OUTSIDE RECORDS SUMMARY | ~2019-04-07 | XMS | Encounter Summary ---
Demographics + + + | Address | [address] | | | [place] [address] | + + + | Home Phone | | + + + | Preferred Language | Unknown | + + + | Marital Status | Legally | + + + | Moravian Affiliation | 1041 | + + + | Race | Unknown | + + + | Ethnic Group | Unknown | + + + Author + + + | Author | [facility] | | | and [place] | + + + | Organization | [facility] | | | [...] Team Providers + +------+ + | Care Server Manager Name | Role | Phone | + +------+ + PCP | Unavailable | + +------+ + Encounter Details +--------+ + + + + | Date | Type | Department | Care Team | Description | +--------+ + + + + | 09/14/ | Hospital | [facility] | Conversion | Diagnosis unknown | | 2018 | Encounter | [address]VERSION [address] | Transaction, | | | | | [address] | Provider Unknown | | | | | [place], [place] | [phone] | | | | | [address] | | | | | | [phone] | | | +--------+ + + + [...] | | | | | | [place] [address] | | | | | | [phone] | | | | | | | [...]
--- OUTSIDE RECORDS SUMMARY | ~2019-04-07 | XMS | Encounter Summary ---
Demographics + + + | Address | [address] | | | [place] [address] | + + + | Home Phone [...] + + + | Author | [facility] | | | and [place] | + + + | Organization | [facility] | | | and [...] Team Providers + +------+ + | Care Assistant Warehouse Manager Name | Role | Phone | + +------+ + PCP | Unavailable | + +------+ + Reason for Visit + + + | Reason | Comments | + + + | Nephrology | | | Appointment | | + + + Encounter Details +--------+ + + + + | Date | Type | Department | Care Team | Description | +--------+ + + + + | 11/23/ | Telephone | [facility] [place] | Shea Pedraza W, | Nephrology | | 2019 | | NEPHROLOGY [address] | Appointment | | | | [address] | [address] [place] | | | | | [place], [place] | [place] [address] | | | | | [address] | [phone] | | | | | [phone] | | | +--------+ + + + [...] [place] | | | | | | [place] [address] | | | | | | [phone] | | | | | | | | +--------+---------+ + + + documented as of this encounter Visit Diagnoses Not on filedocumented in this encounter"
--- OUTSIDE RECORDS SUMMARY | ~2019-04-07 | XMS | Encounter Summary ---
Demographics + + + | Address | [address] | | | [place] [address] | + + + | Home Phone | | + + + | Preferred Language | Unknown | + + + | Marital Status | Legally | + + + | Anabaptism Affiliation | [id number] | + + + | Race | Unknown | + + + | Ethnic Group | Unknown | + + + Author + + + | Author | [facility] | | | and [place] | + + + | Organization | [facility] | | | [...] Team Providers + +------+ + | Care South Asian History Professor Name | Role | Phone | + +------+ + PCP | Unavailable | + +------+ + Encounter Details +--------+ + + + + | Date | Type | Department | Care Team | Description | +--------+ + + + + | 10/23/ | Orders Only | [facility] [place] | Shea Pedraza W, | CKD (chronic kidney | | 2019 | | NEPHROLOGY [address] | MD Antunez [address]ard | disease) stage 3, | | | | [address] | [address] [place] | GFR 30-59 ml/min | | | | [place], [place] | [place] [address] | ([facility]) (Primary Dx) | | | | [address] | [phone] | | | | | [phone] | | | +--------+ + + + [...] documented as of this encounter Progress Notes Yvonne Hahn RN - 10/23/2018 3:07 PM [facility] for upcoming nephrology appointment sent to: [facility] documented in this encounter Plan of Treatment [...] | | | | | [place] [address] | | | | | | [phone] | | | | | | | | +--------+---------+ + + + documented as of this encounter Visit Diagnoses + + | Diagnosis | + + | CKD (chronic kidney disease) stage 3, GFR 30-59 ml/min ([facility]) - Primary Chronic kidney | | disease, Stage III (moderate) | + + documented in this encounter"
--- OUTSIDE RECORDS SUMMARY | ~2019-04-07 | XMS | Encounter Summary ---
Demographics + + + | Address | [address] | | | [place] [address] | + + + | Home Phone | | + + + | Preferred Language | Unknown | + + + | Marital Status | Legally | + + + | Orthodox Affiliation | 1041 | + + + | Race | Unknown | + + + | Ethnic Group | Unknown | + + + Author + + + | Author | [facility] | | | and [place] | + + + | Organization | [facility] | | [...] Team Providers + +------+ + | Care Plan Examiner Name | Role | Phone | + +------+ + PCP | Unavailable | + +------+ + Encounter Details +--------+ + + + + | Date | Type | Department | Care Team | Description | +--------+ + + + + | 10/13/ | Abstract | [facility] | Shea Pedraza W, | ATN (acute tubular | | 2018 | | NEPHROLOGY [address] | MD [address] | necrosis) ([facility]); | | | | [address] | [address] [place] | Vitamin D | | | | [place], [place] | [place] [address] | deficiency; Ischemic | | | | [id number] | [phone] | heart disease | | | | [phone] | | | +--------+ + + + [...] [place] | | | | | | [place] [address] | | | | | | [phone] | | | | | | | | +--------+---------+ + + + documented as of this encounter Procedures + +--------+ + + + | Procedure Name | Priori | Date/Time | Associated Diagnosis | Comments | | | ty | | | | + +--------+ + + + | EXTERNAL LAB: BUN | Routin | 10/10/2017 | | Results for this | | | e | | | procedure are in the | | | | | | results section. | + +--------+ + + + | EXTERNAL LAB: | Routin | 10/10/2017 | | Results for this | | GLUCOSE | e | | | procedure are in the | | | | | | results section. | + +--------+ + + + | EXTERNAL LAB: ALT | Routin | 10/10/2017 | | Results for this | | | e | | | procedure are in the | | | | | | results section. | + +--------+ + + + | EXTERNAL LAB: AST | Routin | 10/10/2017 | | Results for this | | | e | | | procedure are in the | | | | | | results section. | + +--------+ + + + | EXTERNAL LAB: | Routin | 10/10/2017 | | Results for this | | ALKALINE PHOSPHATASE | e | | | procedure are in the | | | | | | results section. | + +--------+ + + + | EXTERNAL LAB: | Routin | 10/10/2017 | | Results for this | | BILIRUBIN, TOTAL | e | | | procedure are in the | | | | | | results section. | + +--------+ + + + | EXTERNAL LAB: | Routin | 10/10/2017 | | Results for this | | ALBUMIN | e | | | procedure are in the | | | | | | results section. | + +--------+ + + + | EXTERNAL LAB: | Routin | 10/10/2017 | | Results for this | | PROTEIN, TOTAL | e | | | procedure are in the | | | | | | results section. | + +--------+ + + + | EXTERNAL LAB: | Routin | 10/10/2017 | | Results for this | | CALCIUM | e | | | procedure are in the | | | | | | results section. | + +--------+ + + + | EXTERNAL LAB: CARBON | Routin | 10/10/2017 | | Results for this | | DIOXIDE | e | | | procedure are in the | | | | | | results section. | + +--------+ + + + | EXTERNAL LAB: | Routin | 10/10/2017 | | Results for this | | CHLORIDE | e | | | procedure are in the | | | | | | results section. | + +--------+ + + + | EXTERNAL LAB: | Routin | 10/10/2017 | | Results for this | | POTASSIUM | e | | | procedure are in the | | | | | | results section. | + +--------+ + + + | EXTERNAL LAB: SODIUM | Routin | 10/10/2017 | | Results for this | | | e | | | procedure are in the | | | | | | results section. | + +--------+ + + + | EXTERNAL LAB: EGFR | Routin | 10/10/2017 | | Results for this | | | e | | | procedure are in the | | | | | | results section. | + +--------+ + + + | EXTERNAL LAB: | Routin | 10/10/2017 | | Results for this | | CREATININE | e | | | procedure are in the | | | | | | results section. | + +--------+ + + + | EXTERNAL LAB: JUS | Routin | 09/27/2017 | | Results for this | | | e | | | procedure are in the | | | | | | results section. | + +--------+ + + + | EXTERNAL LAB: | Routin | 09/27/2017 | | Results for this | | GLUCOSE | e | | | procedure are in the | | | | | | results section. | + +--------+ + + + | EXTERNAL LAB: MARIANELA | Routin | 09/27/2017 | | Results for this | | | e | | | procedure are in the | | | | | | results section. | + +--------+ + + + | EXTERNAL LAB: JOY | Routin | 09/27/2017 | | Results for this | | | e | | | procedure are in the | | | | | | results section. | + +--------+ + + + | EXTERNAL LAB: | Routin | 09/27/2017 | | Results for this | | ALKALINE PHOSPHATASE | e | | | procedure are in the | | | | | | results section. | + +--------+ + + + | EXTERNAL LAB: | Routin | 09/27/2017 | | Results for this | | BILIRUBIN, TOTAL | e | | | procedure are in the | | | | | | results section. | + +--------+ + + + | EXTERNAL LAB: | Routin | 09/27/2017 | | Results for this | | ALBUMIN | e | | | procedure are in the | | | | | | results section. | + +--------+ + + + | EXTERNAL LAB: | Routin | 09/27/2017 | | Results for this | | PROTEIN, TOTAL | e | | | procedure are in the | | | | | | results section. | + +--------+ + + + | EXTERNAL LAB: | Routin | 09/27/2017 | | Results for this | | CALCIUM | e | | | procedure are in the | | | | | | results section. | + +--------+ + + + | EXTERNAL LAB: CARBON | Routin | 09/27/2017 | | Results for this | | DIOXIDE | e | | | procedure are in the | | | | | | results section. | + +--------+ + + + | EXTERNAL LAB: | Routin | 09/27/2017 | | Results for this | | CHLORIDE | e | | | procedure are in the | | | | | | results section. | + +--------+ + + + | EXTERNAL LAB: | Routin | 09/27/2017 | | Results for this | | POTASSIUM | e | | | procedure are in the | | | | | | results section. | + +--------+ + + + | EXTERNAL LAB: SODIUM | Routin | 09/27/2017 | | Results for this | | | e | | | procedure are in the | | | | | | results section. | + +--------+ + + + | EXTERNAL LAB: CBC | Routin | 09/27/2017 | | Results for this | | | e | | | procedure are in the | | | | | | results section. | + +--------+ + + + | EXTERNAL LAB: EGFR | Routin | 09/27/2017 | | Results for this | | | e | | | procedure are in the | | | | | | results section. | + +--------+ + + + | EXTERNAL LAB: | Routin | 09/27/2017 | | Results for this | | CREATININE | e | | | procedure are in the | | | | | | results section. | + +--------+ + + + | HEMOGLOBIN A1C | Routin | 09/27/2017 | | Results for this | | | e | | | procedure are in the | | | | | | results section. | + +--------+ + + + | EXTERNAL LAB: BUN | Routin | 09/21/2017 | | Results for this | | | e | | | procedure are in the | | | | | | results section. | + +--------+ + + + | EXTERNAL LAB: | Routin | 09/21/2017 | | Results for this | | GLUCOSE | e | | | procedure are in the | | | | | | results section. | + +--------+ + + + | EXTERNAL LAB: | Routin | 09/21/2017 | | Results for this | | CALCIUM | e | | | procedure are in the | | | | | | results section. | + +--------+ + + + | EXTERNAL LAB: CARBON | Routin | 09/21/2017 | | Results for this | | DIOXIDE | e | | | procedure are in the | | | | | | results section. | + +--------+ + + + | EXTERNAL LAB: | Routin | 09/21/2017 | | Results for this | | CHLORIDE | e | | | procedure are in the | | | | | | results section. | + +--------+ + + + | EXTERNAL LAB: | Routin | 09/21/2017 | | Results for this | | POTASSIUM | e | | | procedure are in the | | | | | | results section. | + +--------+ + + + | EXTERNAL LAB: SODIUM | Routin | 09/21/2017 | | Results for this | | | e | | | procedure are in the | | | | | | results section. | + +--------+ + + + | EXTERNAL LAB: LILIA | Routin | 09/21/2017 | | Results for this | | | e | | | procedure are in the | | | | | | results section. | + +--------+ + + + | EXTERNAL LAB: | Routin | 09/21/2017 | | Results for this | | CREATININE | e | | | procedure are in the | | | | | | results section. | + +--------+ + + + | EXTERNAL LAB: JUS | Routin | 09/16/2017 | | Results for this | | | e | | | procedure are in the | | | | | | results section. | + +--------+ + + + | EXTERNAL LAB: | Routin | 09/16/2017 | | Results for this | | GLUCOSE | e | | | procedure are in the | | | | | | results section. | + +--------+ + + + | EXTERNAL LAB: | Routin | 09/16/2017 | | Results for this | | ALBUMIN | e | | | procedure are in the | | | | | | results section. | + +--------+ + + + | EXTERNAL LAB: | Routin | 09/16/2017 | | Results for this | | PHOSPHORUS | e | | | procedure are in the | | | | | | results section. | + +--------+ + + + | EXTERNAL LAB: | Routin | 09/16/2017 | | Results for this | | CALCIUM | e | | | procedure are in the | | | | | | results section. | + +--------+ + + + | EXTERNAL LAB: CARBON | Routin | 09/16/2017 | | Results for this | | DIOXIDE | e | | | procedure are in the | | | | | | results section. | + +--------+ + + + | EXTERNAL LAB: | Routin | 09/16/2017 | | Results for this | | CHLORIDE | e | | | procedure are in the | | | | | | results section. | + +--------+ + + + | EXTERNAL LAB: | Routin | 09/16/2017 | | Results for this | | POTASSIUM | e | | | procedure are in the | | | | | | results section. | + +--------+ + + + | EXTERNAL LAB: SODIUM | Routin | 09/16/2017 | | Results for this | | | e | | | procedure are in the | | | | | | results section. | + +--------+ + + + | EXTERNAL LAB: EGFR | Routin | 09/16/2017 | | Results for this | | | e | | | procedure are in the | | | | | | results section. | + +--------+ + + + | EXTERNAL LAB: | Routin | 09/16/2017 | | Results for this | | CREATININE | e | | | procedure are in the | | | | | | results section. | + +--------+ + + + | VANCOMYCIN, TROUGH | Routin | 09/16/2017 | | Results for this | | | e | | | procedure are in the | | | | | | results section. | + +--------+ + + + | EXTERNAL LAB: BUN | Routin | 09/11/2017 | | Results for this | | | e | | | procedure are in the | | | | | | results section. | + +--------+ + + + | EXTERNAL LAB: | Routin | 09/11/2017 | | Results for this | | GLUCOSE | e | | | procedure are in the | | | | | | results section. | + +--------+ + + + | EXTERNAL LAB: ALT | Routin | 09/11/2017 | | Results for this | | | e | | | procedure are in the | | | | | | results section. | + +--------+ + + + | EXTERNAL LAB: AST | Routin | 09/11/2017 | | Results for this | | | e | | | procedure are in the | | | | | | results section. | + +--------+ + + + | EXTERNAL LAB: | Routin | 09/11/2017 | | Results for this | | ALKALINE PHOSPHATASE | e | | | procedure are in the | | | | | | results section. | + +--------+ + + + | EXTERNAL LAB: | Routin | 09/11/2017 | | Results for this | | BILIRUBIN, TOTAL | e | | | procedure are in the | | | | | | results section. | + +--------+ + + + | EXTERNAL LAB: | Routin | 09/11/2017 | | Results for this | | ALBUMIN | e | | | procedure are in the | | | | | | results section. | + +--------+ + + + | EXTERNAL LAB: | Routin | 09/11/2017 | | Results for this | | PROTEIN, TOTAL | e | | | procedure are in the | | | | | | results section. | + +--------+ + + + | EXTERNAL LAB: | Routin | 09/11/2017 | | Results for this | | MAGNESIUM | e | | | procedure are in the | | | | | | results section. | + +--------+ + + + | EXTERNAL LAB: | Routin | 09/11/2017 | | Results for this | | CALCIUM | e | | | procedure are in the | | | | | | results section. | + +--------+ + + + | EXTERNAL LAB: CARBON | Routin | 09/11/2017 | | Results for this | | DIOXIDE | e | | | procedure are in the | | | | | | results section. | + +--------+ + + + | EXTERNAL LAB: | Routin | 09/11/2017 | | Results for this | | CHLORIDE | e | | | procedure are in the | | | | | | results section. | + +--------+ + + + | EXTERNAL LAB: | Routin | 09/11/2017 | | Results for this | | POTASSIUM | e | | | procedure are in the | | | | | | results section. | + +--------+ + + + | EXTERNAL LAB: SODIUM | Routin | 09/11/2017 | | Results for this | | | e | | | procedure are in the | | | | | | results section. | + +--------+ + + + | EXTERNAL LAB: CBC | Routin | 09/11/2017 | | Results for this | | | e | | | procedure are in the | | | | | | results section. | + +--------+ + + + | EXTERNAL LAB: EGFR | Routin | 09/11/2017 | | Results for this | | | e | | | procedure are in the | | | | | | results section. | + +--------+ + + + | EXTERNAL LAB: | Routin | 09/11/2017 | | Results for this | | CREATININE | e | | | procedure are in the | | | | | | results section. | + +--------+ + + + | EXTERNAL LAB: BUN | Routin | 08/04/2017 | | Results for this | | | e | | | procedure are in the | | | | | | results section. | + +--------+ + + + | EXTERNAL LAB: | Routin | 08/04/2017 | | Results for this | | GLUCOSE | e | | | procedure are in the | | | | | | results section. | + +--------+ + + + | EXTERNAL LAB: ALT | Routin | 08/04/2017 | | Results for this | | | e | | | procedure are in the | | | | | | results section. | + +--------+ + + + | EXTERNAL LAB: AST | Routin | 08/04/2017 | | Results for this | | | e | | | procedure are in the | | | | | | results section. | + +--------+ + + + | EXTERNAL LAB: | Routin | 08/04/2017 | | Results for this | | ALKALINE PHOSPHATASE | e | | | procedure are in the | | | | | | results section. | + +--------+ + + + | EXTERNAL LAB: | Routin | 08/04/2017 | | Results for this | | BILIRUBIN, TOTAL | e | | | procedure are in the | | | | | | results section. | + +--------+ + + + | EXTERNAL LAB: | Routin | 08/04/2017 | | Results for this | | ALBUMIN | e | | | procedure are in the | | | | | | results section. | + +--------+ + + + | EXTERNAL LAB: | Routin | 08/04/2017 | | Results for this | | PROTEIN, TOTAL | e | | | procedure are in the | | | | | | results section. | + +--------+ + + + | EXTERNAL LAB: | Routin | 08/04/2017 | | Results for this | | CALCIUM | e | | | procedure are in the | | | | | | results section. | + +--------+ + + + | EXTERNAL LAB: CARBON | Routin | 08/04/2017 | | Results for this | | DIOXIDE | e | | | procedure are in the | | | | | | results section. | + +--------+ + + + | EXTERNAL LAB: | Routin | 08/04/2017 | | Results for this | | CHLORIDE | e | | | procedure are in the | | | | | | results section. | + +--------+ + + + | EXTERNAL LAB: | Routin | 08/04/2017 | | Results for this | | POTASSIUM | e | | | procedure are in the | | | | | | results section. | + +--------+ + + + | EXTERNAL LAB: SODIUM | Routin | 08/04/2017 | | Results for this | | | e | | | procedure are in the | | | | | | results section. | + +--------+ + + + | EXTERNAL LAB: | Routin | 08/04/2017 | | Results for this | | MICROALBUMIN/CREATIN | e | | | procedure are in the | | INE RATIO, URINE | | | | results section. | + +--------+ + + + | EXTERNAL LAB: EGFR | Routin | 08/04/2017 | | Results for this | | | e | | | procedure are in the | | | | | | results section. | + +--------+ + + + | EXTERNAL LAB: | Routin | 08/04/2017 | | Results for this | | CREATININE | e | | | procedure are in the | | | | | | results section. | + +--------+ + + + | HEMOGLOBIN A1C | Routin | 08/04/2017 | | Results for this | | | e | | | procedure are in the | | | | | | results section. | + +--------+ + + + | HEMOGLOBIN A1C | Routin | 06/22/2017 | | Results for this | | | e | | | procedure are in the | | | | | | results section. | + +--------+ + + + | EXTERNAL LAB: JUS | Routin | 05/11/2016 | | Results for this | | | e | | | procedure are in the | | | | | | results section. | + +--------+ + + + | EXTERNAL LAB: | Routin | 05/11/2016 | | Results for this | | GLUCOSE | e | | | procedure are in the | | | | | | results section. | + +--------+ + + + | EXTERNAL LAB: MARIANELA | Routin | 05/11/2016 | | Results for this | | | e | | | procedure are in the | | | | | | results section. | + +--------+ + + + | EXTERNAL LAB: AST | Routin | 05/11/2016 | | Results for this | | | e | | | procedure are in the | | | | | | results section. | + +--------+ + + + | EXTERNAL LAB: | Routin | 05/11/2016 | | Results for this | | ALKALINE PHOSPHATASE | e | | | procedure are in the | | | | | | results section. | + +--------+ + + + | EXTERNAL LAB: | Routin | 05/11/2016 | | Results for this | | BILIRUBIN, TOTAL | e | | | procedure are in the | | | | | | results section. | + +--------+ + + + | EXTERNAL LAB: | Routin | 05/11/2016 | | Results for this | | ALBUMIN | e | | | procedure are in the | | | | | | results section. | + +--------+ + + + | EXTERNAL LAB: | Routin | 05/11/2016 | | Results for this | | PROTEIN, TOTAL | e | | | procedure are in the | | | | | | results section. | + +--------+ + + + | EXTERNAL LAB: | Routin | 05/11/2016 | | Results for this | | CALCIUM | e | | | procedure are in the | | | | | | results section. | + +--------+ + + + | EXTERNAL LAB: CARBON | Routin | 05/11/2016 | | Results for this | | DIOXIDE | e | | | procedure are in the | | | | | | results section. | + +--------+ + + + | EXTERNAL LAB: | Routin | 05/11/2016 | | Results for this | | CHLORIDE | e | | | procedure are in the | | | | | | results section. | + +--------+ + + + | EXTERNAL LAB: | Routin | 05/11/2016 | | Results for this | | POTASSIUM | e | | | procedure are in the | | | | | | results section. | + +--------+ + + + | EXTERNAL LAB: SODIUM | Routin | 05/11/2016 | | Results for this | | | e | | | procedure are in the | | | | | | results section. | + +--------+ + + + | EXTERNAL LAB: CBC | Routin | 05/11/2016 | | Results for this | | | e | | | procedure are in the | | | | | | results section. | + +--------+ + + + | EXTERNAL LAB: EGFR | Routin | 05/11/2016 | | Results for this | | | e | | | procedure are in the | | | | | | results section. | + +--------+ + + + | EXTERNAL LAB: | Routin | 05/11/2016 | | Results for this | | CREATININE | e | | | procedure are in the | | | | | | results section. | + +--------+ + + + | EXTERNAL LAB: BUN | Routin | 01/13/2016 | | Results for this | | | e | | | procedure are in the | | | | | | results section. | + +--------+ + + + | EXTERNAL LAB: | Routin | 01/13/2016 | | Results for this | | GLUCOSE | e | | | procedure are in the | | | | | | results section. | + +--------+ + + + | EXTERNAL LAB: EUGENIO | Routin | 01/13/2016 | | Results for this | | TOTAL | e | | | procedure are in the | | | | | | results section. | + +--------+ + + + | EXTERNAL LAB: MARIANELA | Routin | 01/13/2016 | | Results for this | | | e | | | procedure are in the | | | | | | results section. | + +--------+ + + + | EXTERNAL LAB: JOY | Routin | 01/13/2016 | | Results for this | | | e | | | procedure are in the | | | | | | results section. | + +--------+ + + + | EXTERNAL LAB: | Routin | 01/13/2016 | | Results for this | | ALKALINE PHOSPHATASE | e | | | procedure are in the | | | | | | results section. | + +--------+ + + + | EXTERNAL LAB: | Routin | 01/13/2016 | | Results for this | | BILIRUBIN, TOTAL | e | | | procedure are in the | | | | | | results section. | + +--------+ + + + | EXTERNAL LAB: | Routin | 01/13/2016 | | Results for this | | ALBUMIN | e | | | procedure are in the | | | | | | results section. | + +--------+ + + + | EXTERNAL LAB: | Routin | 01/13/2016 | | Results for this | | PROTEIN, TOTAL | e | | | procedure are in the | | | | | | results section. | + +--------+ + + + | EXTERNAL LAB: | Routin | 01/13/2016 | | Results for this | | CALCIUM | e | | | procedure are in the | | | | | | results section. | + +--------+ + + + | EXTERNAL LAB: CARBON | Routin | 01/13/2016 | | Results for this | | DIOXIDE | e | | | procedure are in the | | | | | | results section. | + +--------+ + + + | EXTERNAL LAB: | Routin | 01/13/2016 | | Results for this | | CHLORIDE | e | | | procedure are in the | | | | | | results section. | + +--------+ + + + | EXTERNAL LAB: | Routin | 01/13/2016 | | Results for this | | POTASSIUM | e | | | procedure are in the | | | | | | results section. | + +--------+ + + + | EXTERNAL LAB: SODIUM | Routin | 01/13/2016 | | Results for this | | | e | | | procedure are in the | | | | | | results section. | + +--------+ + + + | EXTERNAL LAB: CBC | Routin | 01/13/2016 | | Results for this | | | e | | | procedure are in the | | | | | | results section. | + +--------+ + + + | EXTERNAL LAB: EGFR | Routin | 01/13/2016 | | Results for this | | | e | | | procedure are in the | | | | | | results section. | + +--------+ + + + | EXTERNAL LAB: | Routin | 01/13/2016 | | Results for this | | CREATININE | e | | | procedure are in the | | | | | | results section. | + +--------+ + + + | EXTERNAL LAB: BUN | Routin | 12/11/2015 | | Results for this | | | e | | | procedure are in the | | | | | | results section. | + +--------+ + + + | EXTERNAL LAB: | Routin | 12/11/2015 | | Results for this | | GLUCOSE | e | | | procedure are in the | | | | | | results section. | + +--------+ + + + | EXTERNAL LAB: ALT | Routin | 12/11/2015 | | Results for this | | | e | | | procedure are in the | | | | | | results section. | + +--------+ + + + | EXTERNAL LAB: AST | Routin | 12/11/2015 | | Results for this | | | e | | | procedure are in the | | | | | | results section. | + +--------+ + + + | EXTERNAL LAB: | Routin | 12/11/2015 | | Results for this | | ALKALINE PHOSPHATASE | e | | | procedure are in the | | | | | | results section. | + +--------+ + + + | EXTERNAL LAB: | Routin | 12/11/2015 | | Results for this | | BILIRUBIN, TOTAL | e | | | procedure are in the | | | | | | results section. | + +--------+ + + + | EXTERNAL LAB: | Routin | 12/11/2015 | | Results for this | | ALBUMIN | e | | | procedure are in the | | | | | | results section. | + +--------+ + + + | EXTERNAL LAB: | Routin | 12/11/2015 | | Results for this | | PROTEIN, TOTAL | e | | | procedure are in the | | | | | | results section. | + +--------+ + + + | EXTERNAL LAB: | Routin | 12/11/2015 | | Results for this | | CALCIUM | e | | | procedure are in the | | | | | | results section. | + +--------+ + + + | EXTERNAL LAB: CARBON | Routin | 12/11/2015 | | Results for this | | DIOXIDE | e | | | procedure are in the | | | | | | results section. | + +--------+ + + + | EXTERNAL LAB: | Routin | 12/11/2015 | | Results for this | | CHLORIDE | e | | | procedure are in the | | | | | | results section. | + +--------+ + + + | EXTERNAL LAB: | Routin | 12/11/2015 | | Results for this | | POTASSIUM | e | | | procedure are in the | | | | | | results section. | + +--------+ + + + | EXTERNAL LAB: SODIUM | Routin | 12/11/2015 | | Results for this | | | e | | | procedure are in the | | | | | | results section. | + +--------+ + + + | EXTERNAL LAB: CBC | Routin | 12/11/2015 | | Results for this | | | e | | | procedure are in the | | | | | | results section. | + +--------+ + + + | EXTERNAL LAB: EGFR | Routin | 12/11/2015 | | Results for this | | | e | | | procedure are in the | | | | | | results section. | + +--------+ + + + | EXTERNAL LAB: | Routin | 12/11/2015 | | Results for this | | CREATININE | e | | | procedure are in the | | | | | | results section. | + +--------+ + + + | GEOVANNA JEFFERY | Routin | 12/11/2015 | | Results for this | | | e | | | procedure are in the | | | | | | results section. | + +--------+ + + + documented in this encounter Results External Lab: BUN (10/10/2017) + +-------+ + + + | Component | Value | Ref Range | Performed | Pathologist | | | | | At | Signature | + +-------+ + + + | BUN, | 18 | | | | | External | | | | | + +-------+ + + + External Lab: Glucose (10/10/2017) + +-------+ + + + | Component | Value | Ref Range | Performed | Pathologist | | | | | At | Signature | + +-------+ + + + | Glucose, | 226 | | | | | External | | | | | + +-------+ + + + External Lab: ALT (10/10/2017) + +-------+ + + + | Component | Value | Ref Range | Performed | Pathologist | | | | | At | Signature | + +-------+ + + + | ALT, | 24 | | | | | External | | | | | + +-------+ + + + External Lab: AST (10/10/2017) + +-------+ + + + | Component | Value | Ref Range | Performed | Pathologist | | | | | At | Signature | + +-------+ + + + | AST, | 31 | | | | | External | | | | | + +-------+ + + + External Lab: Alkaline Phosphatase (10/10/2017) + +-------+ + + + | Component | Value | Ref Range | Performed | Pathologist | | | | | At | Signature | + +-------+ + + + | ALP, | 140 | | | | | External | | | | | + +-------+ + + + External Lab: Bilirubin, Total (10/10/2017) + +-------+ + + + | Component | Value | Ref Range | Performed | Pathologist | | | | | At | Signature | + +-------+ + + + | Bilirubin, | 0.3 | | | | | Total, | | | | | | External | | | | | + +-------+ + + + External Lab: Albumin (10/10/2017) + +-------+ + + + | Component | Value | Ref Range | Performed | Pathologist | | | | | At | Signature | + +-------+ + + + | Albumin, | 3.4 | | | | | External | | | | | + +-------+ + + + External Lab: Protein, Total (10/10/2017) + +-------+ + + + | Component | Value | Ref Range | Performed | Pathologist | | | | | At | Signature | + +-------+ + + + | Protein, | 7.7 | | | | | Total, | | | | | | External | | | | | + +-------+ + + + External Lab: Calcium (10/10/2017) + +-------+ + + + | Component | Value | Ref Range | Performed | Pathologist | | | | | At | Signature | + +-------+ + + + | Calcium, | 8.0 | | | | | External | | | | | + +-------+ + + + External Lab: Carbon Dioxide (10/10/2017) + +-------+ + + + | Component | Value | Ref Range | Performed | Pathologist | | | | | At | Signature | + +-------+ + + + | Carbon | 22 | | | | | Dioxide, | | | | | | External | | | | | + +-------+ + + + External Lab: Chloride (10/10/2017) + +-------+ + + + | Component | Value | Ref Range | Performed | Pathologist | | | | | At | Signature | + +-------+ + + + | Chloride, | 108 | | | | | External | | | | | + +-------+ + + + External Lab: Potassium (10/10/2017) + +-------+ + + + | Component | Value | Ref Range | Performed | Pathologist | | | | | At | Signature | + +-------+ + + + | Potassium, | 4.5 | | | | | External | | | | | + +-------+ + + + External Lab: Sodium (10/10/2017) + +-------+ + + + | Component | Value | Ref Range | Performed | Pathologist | | | | | At | Signature | + +-------+ + + + | Sodium, | 139 | | | | | External | | | | | + +-------+ + + + External Lab: eGFR (10/10/2017) + +-------+ + + + | Component | Value | Ref Range | Performed | Pathologist | | | | | At | Signature | + +-------+ + + + | eGFR, | 45 | | | | | External | | | | | + +-------+ + + + + + | Specimen | + + | Blood | + + External Lab: Creatinine (10/10/2017) + +-------+ + + + | Component | Value | Ref Range | Performed | Pathologist | | | | | At | Signature | + +-------+ + + + | Creatinine, | 1.7 | | | | | External | | | | | + +-------+ + + + + + | Specimen | + + | Blood | + + Hemoglobin A1C (09/27/2017) + +-------+ + + + | Component | Value | Ref Range | Performed | Pathologist | | | | | At | Signature | + +-------+ + + + | Hemoglobin | 7.4 | % | | | | A1c | | | | | + +-------+ + + + + + | Specimen | + + | Blood | + + External Lab: BUN (09/27/2017) + +-------+ + + + | Component | Value | Ref Range | Performed | Pathologist | | | | | At | Signature | + +-------+ + + + | BUN, | 26 | | | | | External | | | | | + +-------+ + + + External Lab: Glucose (09/27/2017) + +-------+ + + + | Component | Value | Ref Range | Performed | Pathologist | | | | | At | Signature | + +-------+ + + + | Glucose, | 230 | | | | | External | | | | | + +-------+ + + + External Lab: ALT (09/27/2017) + +-------+ + + + | Component | Value | Ref Range | Performed | Pathologist | | | | | At | Signature | + +-------+ + + + | ALT, | 22 | | | | | External | | | | | + +-------+ + + + External Lab: AST (09/27/2017) + +-------+ + + + | Component | Value | Ref Range | Performed | Pathologist | | | | | At | Signature | + +-------+ + + + | AST, | 24 | | | | | External | | | | | + +-------+ + + + External Lab: Alkaline Phosphatase (09/27/2017) + +-------+ + + + | Component | Value | Ref Range | Performed | Pathologist | | | | | At | Signature | + +-------+ + + + | ALP, | 145 | | | | | External | | | | | + +-------+ + + + External Lab: Bilirubin, Total (09/27/2017) + +-------+ + + + | Component | Value | Ref Range | Performed | Pathologist | | | | | At | Signature | + +-------+ + + + | Bilirubin, | 0.2 | | | | | Total, | | | | | | External | | | | | + +-------+ + + + External Lab: Albumin (09/27/2017) + +-------+ + + + | Component | Value | Ref Range | Performed | Pathologist | | | | | At | Signature | + +-------+ + + + | Albumin, | 3.3 | | | | | External | | | | | + +-------+ + + + External Lab: Protein, Total (09/27/2017) + +-------+ + + + | Component | Value | Ref Range | Performed | Pathologist | | | | | At | Signature | + +-------+ + + + | Protein, | 7.7 | | | | | Total, | | | | | | External | | | | | + +-------+ + + + External Lab: Calcium (09/27/2017) + +-------+ + + + | Component | Value | Ref Range | Performed | Pathologist | | | | | At | Signature | + +-------+ + + + | Calcium, | 8.5 | | | | | External | | | | | + +-------+ + + + External Lab: Carbon Dioxide (09/27/2017) + +-------+ + + + | Component | Value | Ref Range | Performed | Pathologist | | | | | At | Signature | + +-------+ + + + | Carbon | 22 | | | | | Dioxide, | | | | | | External | | | | | + +-------+ + + + External Lab: Chloride (09/27/2017) + +-------+ + + + | Component | Value | Ref Range | Performed | Pathologist | | | | | At | Signature | + +-------+ + + + | Chloride, | 112 | | | | | External | | | | | + +-------+ + + + External Lab: Potassium (09/27/2017) + +-------+ + + + | Component | Value | Ref Range | Performed | Pathologist | | | | | At | Signature | + +-------+ + + + | Potassium, | 4.5 | | | | | External | | | | | + +-------+ + + + External Lab: Sodium (09/27/2017) + +-------+ + + + | Component | Value | Ref Range | Performed | Pathologist | | | | | At | Signature | + +-------+ + + + | Sodium, | 143 | | | | | External | | | | | + +-------+ + + + External Lab: CBC (09/27/2017) + +-------+ + + + | Component | Value | Ref Range | Performed | Pathologist | | | | | At | Signature | + +-------+ + + + | WBC, | 6.74 | | | | | External | | | | | + +-------+ + + + | HGB, | 11.67 | | | | | External | | | | | + +-------+ + + + | HCT, | 33.85 | | | | | External | | | | | + +-------+ + + + | PLT, | 320 | | | | | External | | | | | + +-------+ + + + | RBC, | 3.75 | | | | | External | | | | | + +-------+ + + + | MCV, | 90 | | | | | External | | | | | + +-------+ + + + | RDW, | 13.54 | | | | | External | | | | | + +-------+ + + + External Lab: eGFR (09/27/2017) + +-------+ + + + | Component | Value | Ref Range | Performed | Pathologist | | | | | At | Signature | + +-------+ + + + | eGFR, | 32 | | | | | External | | | | | + +-------+ + + + + + | Specimen | + + | Blood | + + External Lab: Creatinine (09/27/2017) + +-------+ + + + | Component | Value | Ref Range | Performed | Pathologist | | | | | At | Signature | + +-------+ + + + | Creatinine, | 2.3 | | | | | External | | | | | + +-------+ + + + + + | Specimen | + + | Blood | + + External Lab: BUN (09/21/2017) + +-------+ + + + | Component | Value | Ref Range | Performed | Pathologist | | | | | At | Signature | + +-------+ + + + | BUN, | 26 | | | | | External | | | | | + +-------+ + + + External Lab: Glucose (09/21/2017) + +-------+ + + + | Component | Value | Ref Range | Performed | Pathologist | | | | | At | Signature | + +-------+ + + + | Glucose, | 87 | | | | | External | | | | | + +-------+ + + + External Lab: Calcium (09/21/2017) + +-------+ + + + | Component | Value | Ref Range | Performed | Pathologist | | | | | At | Signature | + +-------+ + + + | Calcium, | 8.3 | | | | | External | | | | | + +-------+ + + + External Lab: Carbon Dioxide (09/21/2017) + +-------+ + + + | Component | Value | Ref Range | Performed | Pathologist | | | | | At | Signature | + +-------+ + + + | Carbon | 23 | | | | | Dioxide, | | | | | | External | | | | | + +-------+ + + + External Lab: Chloride (09/21/2017) + +-------+ + + + | Component | Value | Ref Range | Performed | Pathologist | | | | | At | Signature | + +-------+ + + + | Chloride, | 112 | | | | | External | | | | | + +-------+ + + + External Lab: Potassium (09/21/2017) + +-------+ + + + | Component | Value | Ref Range | Performed | Pathologist | | | | | At | Signature | + +-------+ + + + | Potassium, | 4.0 | | | | | External | | | | | + +-------+ + + + External Lab: Sodium (09/21/2017) + +-------+ + + + | Component | Value | Ref Range | Performed | Pathologist | | | | | At | Signature | + +-------+ + + + | Sodium, | 140 | | | | | External | | | | | + +-------+ + + + External Lab: eGFR (09/21/2017) + +-------+ + + + | Component | Value | Ref Range | Performed | Pathologist | | | | | At | Signature | + +-------+ + + + | eGFR, | 33 | | | | | External | | | | | + +-------+ + + + + + | Specimen | + + | Blood | + + External Lab: Creatinine (09/21/2017) + +-------+ + + + | Component | Value | Ref Range | Performed | Pathologist | | | | | At | Signature | + +-------+ + + + | Creatinine, | 2.15 | | | | | External | | | | | + +-------+ + + + + + | Specimen | + + | Blood | + + Vancomycin, Trough (09/16/2017) + + + + + + | Component | Value | Ref Range | Performed | Pathologist | | | | | At | Signature | + + + + + + | Vancomycin | 24.5 (A) | 10.0 - 15.0 | | | | Trough | | ug/mL | | | + + + + + + + + | Specimen | + + | Blood | + + External Lab: Glucose (09/16/2017) + +-------+ + + + | Component | Value | Ref Range | Performed | Pathologist | | | | | At | Signature | + +-------+ + + + | Glucose, | 86 | | | | | External | | | | | + +-------+ + + + External Lab: BUN (09/16/2017) + +-------+ + + + | Component | Value | Ref Range | Performed | Pathologist | | | | | At | Signature | + +-------+ + + + | BUN, | 18 | | | | | External | | | | | + +-------+ + + + External Lab: Albumin (09/16/2017) + +-------+ + + + | Component | Value | Ref Range | Performed | Pathologist | | | | | At | Signature | + +-------+ + + + | Albumin, | 2.1 | | | | | External | | | | | + +-------+ + + + External Lab: Phosphorus (09/16/2017) + +-------+ + + + | Component | Value | Ref Range | Performed | Pathologist | | | | | At | Signature | + +-------+ + + + | Phosphorus, | 3.2 | | | | | External | | | | | + +-------+ + + + External Lab: Calcium (09/16/2017) + +-------+ + + + | Component | Value | Ref Range | Performed | Pathologist | | | | | At | Signature | + +-------+ + + + | Calcium, | 8.4 | | | | | External | | | | | + +-------+ + + + External Lab: Carbon Dioxide (09/16/2017) + +-------+ + + + | Component | Value | Ref Range | Performed | Pathologist | | | | | At | Signature | + +-------+ + + + | Carbon | 26 | | | | | Dioxide, | | | | | | External | | | | | + +-------+ + + + External Lab: Chloride (09/16/2017) + +-------+ + + + | Component | Value | Ref Range | Performed | Pathologist | | | | | At | Signature | + +-------+ + + + | Chloride, | 109 | | | | | External | | | | | + +-------+ + + + External Lab: Potassium (09/16/2017) + +-------+ + + + | Component | Value | Ref Range | Performed | Pathologist | | | | | At | Signature | + +-------+ + + + | Potassium, | 3.9 | | | | | External | | | | | + +-------+ + + + External Lab: Sodium (09/16/2017) + +-------+ + + + | Component | Value | Ref Range | Performed | Pathologist | | | | | At | Signature | + +-------+ + + + | Sodium, | 142 | | | | | External | | | | | + +-------+ + + + External Lab: eGFR (09/16/2017) + +-------+ + + + | Component [...] Blood | + + External Lab: Creatinine (09/16/2017) + +-------+ + + + | Component [...] Blood | + + External Lab: BUN (09/11/2017) + +-------+ + + + | Component | Value | Ref Range | Performed | Pathologist | | | | | At | Signature | + +-------+ + + + | BUN, | 14 | | | | | External | | | | | + +-------+ + + + External Lab: Glucose (09/11/2017) + +-------+ + + + | Component | Value | Ref Range | Performed | Pathologist | | | | | At | Signature | + +-------+ + + + | Glucose, | 163 | | | | | External | | | | | + +-------+ + + + External Lab: ALT (09/11/2017) + +-------+ + + + | Component | Value | Ref Range | Performed | Pathologist | | | | | At | Signature | + +-------+ + + + | ALT, | 14 | | | | | External | | | | | + +-------+ + + + External Lab: AST (09/11/2017) + +-------+ + + + | Component | Value | Ref Range | Performed | Pathologist | | | | | At | Signature | + +-------+ + + + | AST, | 16 | | | | | External | | | | | + +-------+ + + + External Lab: Alkaline Phosphatase (09/11/2017) + +-------+ + + + | Component | Value | Ref Range | Performed | Pathologist | | | | | At | Signature | + +-------+ + + + | ALP, | 59 | | | | | External | | | | | + +-------+ + + + External Lab: Bilirubin, Total (09/11/2017) + +-------+ + + + | Component | Value | Ref Range | Performed | Pathologist | | | | | At | Signature | + +-------+ + + + | Bilirubin, | 0.8 | | | | | Total, | | | | | | External | | | | | + +-------+ + + + External Lab: Albumin (09/11/2017) + +-------+ + + + | Component | Value | Ref Range | Performed | Pathologist | | | | | At | Signature | + +-------+ + + + | Albumin, | 2.8 | | | | | External | | | | | + +-------+ + + + External Lab: Protein, Total (09/11/2017) + +-------+ + + + | Component | Value | Ref Range | Performed | Pathologist | | | | | At | Signature | + +-------+ + + + | Protein, | 6.0 | | | | | Total, | | | | | | External | | | | | + +-------+ + + + External Lab: Magnesium (09/11/2017) + +-------+ + + + | Component | Value | Ref Range | Performed | Pathologist | | | | | At | Signature | + +-------+ + + + | Magnesium, | 1.4 | | | | | External | | | | | + +-------+ + + + External Lab: Calcium (09/11/2017) + +-------+ + + + | Component | Value | Ref Range | Performed | Pathologist | | | | | At | Signature | + +-------+ + + + | Calcium, | 8.1 | | | | | External | | | | | + +-------+ + + + External Lab: Carbon Dioxide (09/11/2017) + +-------+ + + + | Component | Value | Ref Range | Performed | Pathologist | | | | | At | Signature | + +-------+ + + + | Carbon | 22 | | | | | Dioxide, | | | | | | External | | | | | + +-------+ + + + External Lab: Chloride (09/11/2017) + +-------+ + + + | Component | Value | Ref Range | Performed | Pathologist | | | | | At | Signature | + +-------+ + + + | Chloride, | 112 | | | | | External | | | | | + +-------+ + + + External Lab: Potassium (09/11/2017) + +-------+ + + + | Component | Value | Ref Range | Performed | Pathologist | | | | | At | Signature | + +-------+ + + + | Potassium, | 3.8 | | | | | External | | | | | + +-------+ + + + External Lab: Sodium (09/11/2017) + +-------+ + + + | Component | Value | Ref Range | Performed | Pathologist | | | | | At | Signature | + +-------+ + + + | Sodium, | 136 | | | | | External | | | | | + +-------+ + + + External Lab: CBC (09/11/2017) + +-------+ + + + | Component | Value | Ref Range | Performed | Pathologist | | | | | At | Signature | + +-------+ + + + | WBC, | 22.4 | | | | | External | | | | | + +-------+ + + + | HGB, | 12 | | | | | External | | | | | + +-------+ + + + | HCT, | 34.8 | | | | | External | | | | | + +-------+ + + + | PLT, | 243 | | | | | External | | | | | + +-------+ + + + | RBC, | 3.95 | | | | | External | | | | | + +-------+ + + + | MCV, | 88 | | | | | External | | | | | + +-------+ + + + | RDW, | 12.9 | | | | | External | | | | | + +-------+ + + + External Lab: eGFR (09/11/2017) + +-------+ + + + | Component | Value | Ref Range | Performed | Pathologist | | | | | At | Signature | + +-------+ + + + | eGFR, | 76 | | | | | External | | | | | + +-------+ + + + + + | Specimen | + + | Blood | + + External Lab: Creatinine (09/11/2017) + +-------+ + + + | Component | Value | Ref Range | Performed | Pathologist | | | | | At | Signature | + +-------+ + + + | Creatinine, | 1.03 | | | | | External | | | | | + +-------+ + + + + + | Specimen | + + | Blood | + + Hemoglobin A1C (08/04/2017) + +-------+ + + + | Component | Value | Ref Range | Performed | Pathologist | | | | | At | Signature | + +-------+ + + + | Hemoglobin | 7.9 | % | | | | A1c | | | | | + +-------+ + + + + + | Specimen | + + | Blood | + + External Lab: BUN (08/04/2017) + +-------+ + + + | Component | Value | Ref Range | Performed | Pathologist | | | | | At | Signature | + +-------+ + + + | BUN, | 12 | | | | | External | | | | | + +-------+ + + + External Lab: Glucose (08/04/2017) + +-------+ + + + | Component | Value | Ref Range | Performed | Pathologist | | | | | At | Signature | + +-------+ + + + | Glucose, | 136 | | | | | External | | | | | + +-------+ + + + External Lab: ALT (08/04/2017) + +-------+ + + + | Component | Value | Ref Range | Performed | Pathologist | | | | | At | Signature | + +-------+ + + + | ALT, | 29 | | | | | External | | | | | + +-------+ + + + External Lab: AST (08/04/2017) + +-------+ + + + | Component | Value | Ref Range | Performed | Pathologist | | | | | At | Signature | + +-------+ + + + | AST, | 44 | | | | | External | | | | | + +-------+ + + + External Lab: Alkaline Phosphatase (08/04/2017) + +-------+ + + + | Component | Value | Ref Range | Performed | Pathologist | | | | | At | Signature | + +-------+ + + + | ALP, | 118 | | | | | External | | | | | + +-------+ + + + External Lab: Bilirubin, Total (08/04/2017) + +-------+ + + + | Component | Value | Ref Range | Performed | Pathologist | | | | | At | Signature | + +-------+ + + + | Bilirubin, | 0.4 | | | | | Total, | | | | | | External | | | | | + +-------+ + + + External Lab: Albumin (08/04/2017) + +-------+ + + + | Component | Value | Ref Range | Performed | Pathologist | | | | | At | Signature | + +-------+ + + + | Albumin, | 3.4 | | | | | External | | | | | + +-------+ + + + External Lab: Protein, Total (08/04/2017) + +-------+ + + + | Component | Value | Ref Range | Performed | Pathologist | | | | | At | Signature | + +-------+ + + + | Protein, | 7.9 | | | | | Total, | | | | | | External | | | | | + +-------+ + + + External Lab: Calcium (08/04/2017) + +-------+ + + + | Component | Value | Ref Range | Performed | Pathologist | | | | | At | Signature | + +-------+ + + + | Calcium, | 9.0 | | | | | External | | | | | + +-------+ + + + External Lab: Carbon Dioxide (08/04/2017) + +-------+ + + + | Component | Value | Ref Range | Performed | Pathologist | | | | | At | Signature | + +-------+ + + + | Carbon | 26 | | | | | Dioxide, | | | | | | External | | | | | + +-------+ + + + External Lab: Chloride (08/04/2017) + +-------+ + + + | Component | Value | Ref Range | Performed | Pathologist | | | | | At | Signature | + +-------+ + + + | Chloride, | 105 | | | | | External | | | | | + +-------+ + + + External Lab: Potassium (08/04/2017) + +-------+ + + + | Component | Value | Ref Range | Performed | Pathologist | | | | | At | Signature | + +-------+ + + + | Potassium, | 4.3 | | | | | External | | | | | + +-------+ + + + External Lab: Sodium (08/04/2017) + +-------+ + + + | Component | Value | Ref Range | Performed | Pathologist | | | | | At | Signature | + +-------+ + + + | Sodium, | 143 | | | | | External | | | | | + +-------+ + + + External Lab: Microalbumin/Creatinine Ratio, Urine (08/04/2017) + +---------+ + + + | Component | Value | Ref Range | Performed | Pathologist | | | | | At | Signature | + +---------+ + + + | Microalbumi | 4,784.8 | | | | | n/Creatinin | | | | | | e Ratio, | | | | | | External | | | | | + +---------+ + + + + + | Specimen | + + | Blood | + + External Lab: eGFR (08/04/2017) + +-------+ + + + | Component [...] Blood | + + External Lab: Creatinine (08/04/2017) + +-------+ + + + | Component | Value | Ref Range | Performed | Pathologist | | | | | At | Signature | + +-------+ + + + | Creatinine, | 1.3 | | | | | External | | | | | + +-------+ + + + + + | Specimen | + + | Blood | + + Hemoglobin A1C (06/22/2017) + +-------+ + + + | Component | Value | Ref Range | Performed | Pathologist | | | | | At | Signature | + +-------+ + + + | Hemoglobin | 8.0 | % | | | | A1c | | | | | + +-------+ + + + + + | Specimen | + + | Blood | + + External Lab: BUN (05/11/2016) + +-------+ + + + | Component | Value | Ref Range | Performed | Pathologist | | | | | At | Signature | + +-------+ + + + | BUN, | 23 | | | | | External | | | | | + +-------+ + + + External Lab: Glucose (05/11/2016) + +-------+ + + + | Component | Value | Ref Range | Performed | Pathologist | | | | | At | Signature | + +-------+ + + + | Glucose, | 144 | | | | | External | | | | | + +-------+ + + + External Lab: ALT (05/11/2016) + +-------+ + + + | Component | Value | Ref Range | Performed | Pathologist | | | | | At | Signature | + +-------+ + + + | ALT, | 22 | | | | | External | | | | | + +-------+ + + + External Lab: AST (05/11/2016) + +-------+ + + + | Component | Value | Ref Range | Performed | Pathologist | | | | | At | Signature | + +-------+ + + + | AST, | 29 | | | | | External | | | | | + +-------+ + + + External Lab: Alkaline Phosphatase (05/11/2016) + +-------+ + + + | Component | Value | Ref Range | Performed | Pathologist | | | | | At | Signature | + +-------+ + + + | ALP, | 60 | | | | | External | | | | | + +-------+ + + + External Lab: Bilirubin, Total (05/11/2016) + +-------+ + + + | Component | Value | Ref Range | Performed | Pathologist | | | | | At | Signature | + +-------+ + + + | Bilirubin, | 0.4 | | | | | Total, | | | | | | External | | | | | + +-------+ + + + External Lab: Albumin (05/11/2016) + +-------+ + + + | Component | Value | Ref Range | Performed | Pathologist | | | | | At | Signature | + +-------+ + + + | Albumin, | 3.9 | | | | | External | | | | | + +-------+ + + + External Lab: Protein, Total (05/11/2016) + +-------+ + + + | Component | Value | Ref Range | Performed | Pathologist | | | | | At | Signature | + +-------+ + + + | Protein, | 7.8 | | | | | Total, | | | | | | External | | | | | + +-------+ + + + External Lab: Calcium (05/11/2016) + +-------+ + + + | Component | Value | Ref Range | Performed | Pathologist | | | | | At | Signature | + +-------+ + + + | Calcium, | 9.1 | | | | | External | | | | | + +-------+ + + + External Lab: Carbon Dioxide (05/11/2016) + +-------+ + + + | Component | Value | Ref Range | Performed | Pathologist | | | | | At | Signature | + +-------+ + + + | Carbon | 19 | | | | | Dioxide, | | | | | | External | | | | | + +-------+ + + + External Lab: Chloride (05/11/2016) + +-------+ + + + | Component | Value | Ref Range | Performed | Pathologist | | | | | At | Signature | + +-------+ + + + | Chloride, | 113 | | | | | External | | | | | + +-------+ + + + External Lab: Potassium (05/11/2016) + +-------+ + + + | Component | Value | Ref Range | Performed | Pathologist | | | | | At | Signature | + +-------+ + + + | Potassium, | 3.8 | | | | | External | | | | | + +-------+ + + + External Lab: Sodium (05/11/2016) + +-------+ + + + | Component | Value | Ref Range | Performed | Pathologist | | | | | At | Signature | + +-------+ + + + | Sodium, | 141 | | | | | External | | | | | + +-------+ + + + External Lab: CBC (05/11/2016) + +-------+ + + + | Component | Value | Ref Range | Performed | Pathologist | | | | | At | Signature | + +-------+ + + + | WBC, | 16.9 | | | | | External | | | | | + +-------+ + + + | HGB, | 11.9 | | | | | External | | | | | + +-------+ + + + | HCT, | 36.1 | | | | | External | | | | | + +-------+ + + + | PLT, | 278 | | | | | External | | | | | + +-------+ + + + | RBC, | 4.05 | | | | | External | | | | | + +-------+ + + + | MCV, | 89 | | | | | External | | | | | + +-------+ + + + | RDW, | 12.8 | | | | | External | | | | | + +-------+ + + + External Lab: eGFR (05/11/2016) + +-------+ + + + | Component | Value | Ref Range | Performed | Pathologist | | | | | At | Signature | + +-------+ + + + | eGFR, | 51 | | | | | External | | | | | + +-------+ + + + + + | Specimen | + + | Blood | + + External Lab: Creatinine (05/11/2016) + +-------+ + + + | Component | Value | Ref Range | Performed | Pathologist | | | | | At | Signature | + +-------+ + + + | Creatinine, | 1.46 | | | | | External | | | | | + +-------+ + + + + + | Specimen | + + | Blood | + + External Lab: BUN (01/13/2016) + +-------+ + + + | Component | Value | Ref Range | Performed | Pathologist | | | | | At | Signature | + +-------+ + + + | BUN, | 20 | | | | | External | | | | | + +-------+ + + + External Lab: Glucose (01/13/2016) + +-------+ + + + | Component | Value | Ref Range | Performed | Pathologist | | | | | At | Signature | + +-------+ + + + | Glucose, | 263 | | | | | External | | | | | + +-------+ + + + External Lab: Ck, Total (01/13/2016) + +-------+ + + + | Component | Value | Ref Range | Performed | Pathologist | | | | | At | Signature | + +-------+ + + + | CK, Total, | 765 | | | | | External | | | | | + +-------+ + + + External Lab: ALT (01/13/2016) + +-------+ + + + | Component | Value | Ref Range | Performed | Pathologist | | | | | At | Signature | + +-------+ + + + | ALT, | 28 | | | | | External | | | | | + +-------+ + + + External Lab: AST (01/13/2016) + +-------+ + + + | Component | Value | Ref Range | Performed | Pathologist | | | | | At | Signature | + +-------+ + + + | AST, | 38 | | | | | External | | | | | + +-------+ + + + External Lab: Alkaline Phosphatase (01/13/2016) + +-------+ + + + | Component | Value | Ref Range | Performed | Pathologist | | | | | At | Signature | + +-------+ + + + | ALP, | 124 | | | | | External | | | | | + +-------+ + + + External Lab: Bilirubin, Total (01/13/2016) + +-------+ + + + | Component | Value | Ref Range | Performed | Pathologist | | | | | At | Signature | + +-------+ + + + | Bilirubin, | 0.3 | | | | | Total, | | | | | | External | | | | | + +-------+ + + + External Lab: Albumin (01/13/2016) + +-------+ + + + | Component | Value | Ref Range | Performed | Pathologist | | | | | At | Signature | + +-------+ + + + | Albumin, | 3.7 | | | | | External | | | | | + +-------+ + + + External Lab: Protein, Total (01/13/2016) + +-------+ + + + | Component | Value | Ref Range | Performed | Pathologist | | | | | At | Signature | + +-------+ + + + | Protein, | 7.1 | | | | | Total, | | | | | | External | | | | | + +-------+ + + + External Lab: Calcium (01/13/2016) + +-------+ + + + | Component | Value | Ref Range | Performed | Pathologist | | | | | At | Signature | + +-------+ + + + | Calcium, | 9.3 | | | | | External | | | | | + +-------+ + + + External Lab: Carbon Dioxide (01/13/2016) + +-------+ + + + | Component | Value | Ref Range | Performed | Pathologist | | | | | At | Signature | + +-------+ + + + | Carbon | 15 | | | | | Dioxide, | | | | | | External | | | | | + +-------+ + + + External Lab: Chloride (01/13/2016) + +-------+ + + + | Component | Value | Ref Range | Performed | Pathologist | | | | | At | Signature | + +-------+ + + + | Chloride, | 114 | | | | | External | | | | | + +-------+ + + + External Lab: Potassium (01/13/2016) + +-------+ + + + | Component | Value | Ref Range | Performed | Pathologist | | | | | At | Signature | + +-------+ + + + | Potassium, | 5.3 | | | | | External | | | | | + +-------+ + + + External Lab: Sodium (01/13/2016) + +-------+ + + + | Component | Value | Ref Range | Performed | Pathologist | | | | | At | Signature | + +-------+ + + + | Sodium, | 134 | | | | | External | | | | | + +-------+ + + + External Lab: CBC (01/13/2016) + +-------+ + + + | Component | Value | Ref Range | Performed | Pathologist | | | | | At | Signature | + +-------+ + + + | WBC, | 7.4 | | | | | External | | | | | + +-------+ + + + | HGB, | 10.7 | | | | | External | | | | | + +-------+ + + + | HCT, | 32.1 | | | | | External | | | | | + +-------+ + + + | PLT, | 293 | | | | | External | | | | | + +-------+ + + + | RBC, | 3.6 | | | | | External | | | | | + +-------+ + + + | MCV, | 89 | | | | | External | | | | | + +-------+ + + + | RDW, | 14.6 | | | | | External | | | | | + +-------+ + + + External Lab: eGFR (01/13/2016) + +-------+ + + + | Component | Value | Ref Range | Performed | Pathologist | | | | | At | Signature | + +-------+ + + + | eGFR, | 37 | | | | | External | | | | | + +-------+ + + + + + | Specimen | + + | Blood | + + External Lab: Creatinine (01/13/2016) + +-------+ + + + | Component | Value | Ref Range | Performed | Pathologist | | | | | At | Signature | + +-------+ + + + | Creatinine, | 1.96 | | | | | External | | | | | + +-------+ + + + + + | Specimen | + + | Blood | + + Vancomycin, Trough (12/11/2015) + +-------+ + + + | Component | Value | Ref Range | Performed | Pathologist | | | | | At | Signature | + +-------+ + + + | Vancomycin | 13.0 | 10.0 - 15.0 | | | | Trough | | ug/mL | | | + +-------+ + + + + + | Specimen | + + | Blood | + + External Lab: BUN (12/11/2015) + +-------+ + + + | Component | Value | Ref Range | Performed | Pathologist | | | | | At | Signature | + +-------+ + + + | BUN, | 18 | | | | | External | | | | | + +-------+ + + + External Lab: Glucose (12/11/2015) + +-------+ + + + | Component | Value | Ref Range | Performed | Pathologist | | | | | At | Signature | + +-------+ + + + | Glucose, | 144 | | | | | External | | | | | + +-------+ + + + External Lab: ALT (12/11/2015) + +-------+ + + + | Component | Value | Ref Range | Performed | Pathologist | | | | | At | Signature | + +-------+ + + + | ALT, | 25 | | | | | External | | | | | + +-------+ + + + External Lab: AST (12/11/2015) + +-------+ + + + | Component | Value | Ref Range | Performed | Pathologist | | | | | At | Signature | + +-------+ + + + | AST, | 31 | | | | | External | | | | | + +-------+ + + + External Lab: Alkaline Phosphatase (12/11/2015) + +-------+ + + + | Component | Value | Ref Range | Performed | Pathologist | | | | | At | Signature | + +-------+ + + + | ALP, | 69 | | | | | External | | | | | + +-------+ + + + External Lab: Bilirubin, Total (12/11/2015) + +-------+ + + + | Component | Value | Ref Range | Performed | Pathologist | | | | | At | Signature | + +-------+ + + + | Bilirubin, | 0.5 | | | | | Total, | | | | | | External | | | | | + +-------+ + + + External Lab: Albumin (12/11/2015) + +-------+ + + + | Component | Value | Ref Range | Performed | Pathologist | | | | | At | Signature | + +-------+ + + + | Albumin, | 3.9 | | | | | External | | | | | + +-------+ + + + External Lab: Protein, Total (12/11/2015) + +-------+ + + + | Component | Value | Ref Range | Performed | Pathologist | | | | | At | Signature | + +-------+ + + + | Protein, | 7.4 | | | | | Total, | | | | | | External | | | | | + +-------+ + + + External Lab: Calcium (12/11/2015) + +-------+ + + + | Component | Value | Ref Range | Performed | Pathologist | | | | | At | Signature | + +-------+ + + + | Calcium, | 9.3 | | | | | External | | | | | + +-------+ + + + External Lab: Carbon Dioxide (12/11/2015) + +-------+ + + + | Component | Value | Ref Range | Performed | Pathologist | | | | | At | Signature | + +-------+ + + + | Carbon | 16 | | | | | Dioxide, | | | | | | External | | | | | + +-------+ + + + External Lab: Chloride (12/11/2015) + +-------+ + + + | Component | Value | Ref Range | Performed | Pathologist | | | | | At | Signature | + +-------+ + + + | Chloride, | 106 | | | | | External | | | | | + +-------+ + + + External Lab: Potassium (12/11/2015) + +-------+ + + + | Component | Value | Ref Range | Performed | Pathologist | | | | | At | Signature | + +-------+ + + + | Potassium, | 4.6 | | | | | External | | | | | + +-------+ + + + External Lab: Sodium (12/11/2015) + +-------+ + + + | Component | Value | Ref Range | Performed | Pathologist | | | | | At | Signature | + +-------+ + + + | Sodium, | 132 | | | | | External | | | | | + +-------+ + + + External Lab: CBC (12/11/2015) + +-------+ + + + | Component | Value | Ref Range | Performed | Pathologist | | | | | At | Signature | + +-------+ + + + | WBC, | 7.4 | | | | | External | | | | | + +-------+ + + + | HGB, | 12.4 | | | | | External | | | | | + +-------+ + + + | HCT, | 37.6 | | | | | External | | | | | + +-------+ + + + | PLT, | 260 | | | | | External | | | | | + +-------+ + + + | RBC, | 4.26 | | | | | External | | | | | + +-------+ + + + | MCV, | 88 | | | | | External | | | | | + +-------+ + + + | RDW, | 14.1 | | | | | External | | | | | + +-------+ + + + External Lab: eGFR (12/11/2015) + +-------+ + + + | Component | Value | Ref Range | Performed | Pathologist | | | | | At | Signature | + +-------+ + + + | eGFR, | 64 | | | | | External | | | | | + +-------+ + + + + + | Specimen | + + | Blood | + + External Lab: Creatinine (12/11/2015) + +-------+ + + + | Component | Value | Ref Range | Performed | Pathologist | | | | | At | Signature | + +-------+ + + + | Creatinine, | 1.21 | | | | | External | | | | | + +-------+ + + + + + | Specimen | + + | Blood | + + documented in this encounter Visit Diagnoses + + | Diagnosis | + + | ATN (acute tubular necrosis) (HCC) Acute kidney failure with lesion of tubular | | necrosis | + + | Vitamin D deficiency Unspecified vitamin D deficiency | + + | Ischemic heart disease Chronic ischemic heart disease, unspecified | + + documented in this encounter"
--- OUTSIDE RECORDS SUMMARY | ~2019-04-07 | XMS | Encounter Summary ---
Demographics + + + | Address | [address] | | | [place] [address] | + + + | Home Phone | | + + + | Preferred Language | Unknown | + + + | Marital Status | Legally | + + + | Yazdanism Affiliation | 1041 | + + + | Race | Unknown | + + + | Ethnic Group | Unknown | + + + Author + + + | Author | [facility] | | | and [place] | + + + | Organization | [facility] | | [...] Team Providers + +------+ + | Care Nailer Operator Name | Role | Phone | [...] + + | 03/20/ | Office | [facility] | Jose Terranceamaya | S/P CABG x 4 | | 2019 | Visit | CARDIOTHORACIC | [address] | (Primary Dx); | | | | SURGERY [address] | [place] | Follow-up exam | | | | [place] | [place] [address] | | | | | [place], [place] | [phone] | | | | | [address] | | | | | | [phone] | | | +--------+---------+ + + + [...] call Dr. Luis Enrique Campbell (Cardiology) at [phone] for a follow up appointment regarding your [...] Low EF with LV thrombus: On Xarelto [employer] for PAF (pt remained SR throughout hospitalizati on), however dt concern for bleeding was started on Coumadin instead. Goal INR 2-3. F/u with cardiology 2) CKD/ARF: Nephrology following patient closely throughout hospitalization. Cr increased h owever improved with hydration. 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 SUBJECTIVE: Mr. Joselito Robertson presents for [...] instructed to make an appointment with his Ceramic Worker, Dr. Adrian DAMIAN He has an appointment with his Primary Care Physician, Janusz Davis MD He has seen his [place] Man, Dr. 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
--- OUTSIDE RECORDS SUMMARY | ~2019-04-07 | XMS | Encounter Summary ---
Demographics + + + | Address | [address] | | | [place] [address] | + + + | Home Phone | | + + + | Preferred Language | Unknown | + + + | Marital Status | Legally | + + + | Synagogue Affiliation | 1041 | + + + | Race | Unknown | + + + | Ethnic Group | Unknown | + + + Author + + + | Author | [facility] | | | and [place] | + + + | Organization | [facility] | | | and [...] Team Providers + +------+ + | Care Ramp Service Agent Name | Role | Phone | + [...] | NEPHROLOGY [address] | | | | | [address] | [address] [place] | | | | | [place], [place] | [place] [address] | | | | | [address] | [phone] | | | | | [phone] | | | +--------+ + + + [...] 06/19/ | Office | Nephrology | Shea Pedraaz, | | | 2019 | Visit | | MD Harmony Sharma | | | | | | [address] [place] | | | | | | [place] [address] | | | | | | [phone] | | | | | | | [...] 1.024 | | EXTERNAL | | | [place], | | | LAB | | | [...]
--- OUTSIDE RECORDS SUMMARY | ~2019-04-07 | XMS | Encounter Summary ---
Demographics + + + | Address | [address] | | | [place] [address] | + + + | Home Phone | | + + + | Preferred Language | Unknown | + + + | Marital Status | Legally | + + + | Jewish Affiliation | 1041 | + + + | Race | Unknown | + + + | Ethnic Group | Unknown | + + + Author + + + | Author | [facility] | | | and [place] | + + + | Organization | [facility] | | | and [...] Team Providers + +------+ + | Care Etl Bi Developer Name | Role | Phone | + [...] Shea Pedraza W, | Nephrology | | 2018 | | NEPHROLOGY [address] | MD [address] | Appointment | | | | [address] | [address] [place] | | | | | [place], [place] | [place] [address] | | | | | [address] | [phone] | | | | | [phone] | | | +--------+ + + + [...] | | | | | [place] [address] | | | | | | [phone] | | | | | | | | +--------+---------+ + + + documented as of this encounter Visit Diagnoses Not on filedocumented in this encounter"
--- OUTSIDE RECORDS SUMMARY | ~2019-04-07 | XMS | Encounter Summary ---
Demographics + + + | Address | [address] | | | [place] [address] | + + + | Home Phone | | + + + | Preferred Language | Unknown | + + + | Marital Status | Legally | + + + | Denominational Affiliation | 1041 | + + + | Race | Unknown | + + + | Ethnic Group | Unknown | + + + Author + + + | Author | [facility] | | | and [place] | + + + | Organization | [facility] | | | [...] Team Providers + +------+ + | Care Designer/Writer Name | Role | Phone | + [...] [place] | | | | | [phone] | [phone] | | | | | | | [...] | | | | | | [place] [address] | | | | | | [phone] | | | | | | | [...] TR maxP.70 mmHg TR Vmax: 2.21 m/s Call Center Operator: PATRICIA | | | Authenticated by: Shantel Becerra MD Report Date/Time: 10-29-2013 | | | 10:49:17 | | + + + + + | Procedure Note | + + | Hung Pagan Conversion - 12/15/2018 9:10 AM PDT [...] (A-L): 22.75 ml/m2LAAs A2C: 14.66 | | [id number] A-L A2C: 40.20 mlLALs A2C: 4.54 cmLAAs A4C: 17.84 [id number] A-L A4C: | | 54.46 mlLALs A4C: 4.96 cmRAAs: 12.06 [id number] A-L: 28.20 mlRAESV MOD: 26.69 | | [...] 0.74 m/sTR maxP.70 mmHgTR Vmax: 2.21 m/s Call Center Operator: | | DBSAuthenticated by: Shantel Becerra MDReport [...] |TR Vmax: 2.21 m/s | | | |Call Center Operator: DBS | |Authenticated by: Shantel Becerra MD | |Report Date/Time: 10-29-2013 10:49:17 | | | |IMPRESSION: | |1. Overall left ventricular systolic function is normal with, an EF between 60 - 65 %. | |2. Mild mitral regurgitation is present. | + + documented in this encounter Visit Diagnoses Not on filedocumented in this encounter"
--- OUTSIDE RECORDS SUMMARY | ~2019-04-07 | XMS | Encounter Summary ---
Demographics + + + | Address | [address] | | | [place] [address] | + + + | Home Phone | | + + + | Preferred Language | Unknown | + + + | Marital Status | Legally | + + + | Yarsanism Affiliation | [id number] | + + + | Race | Unknown | + + + | Ethnic Group | Unknown | + + + Author + + + | Author | [facility] | | | and [place] | + + + | Organization | [facility] | | [...] Team Providers + +------+ + | Care Aircraft Body Repairer Name | Role | Phone | + [...] | | | | | | | [place] or | | | | | | [...] + + | 02/15/ | Surgery | [facility] | Liban Nair MD | CORONARY ARTERY | | 2019 | | [facility] | [address] | BYPASS GRAFT X4 WITH | | | | OPERATING ROOM [address] | [place], [place] | TAKEDOWN LEFT | | | | [address] | [address] | INTERNAL MAMMARY | | | | [place], [place] | | ARTERY, EVH RIGHT | | | | [address] | | SAPHONUS VEIN | | | | [phone] | | | +--------+---------+ + + + [...] was diagnosed with a non- ST segment MT. He was evaluated by Dr. Canales and [...] The patient was fit for discharge to [facility] ([facility]) on 02/28/19. Problems addressed during hospital stay: 1)Low EF with LV thrombus: On Xarelto PROGRAM PRODUCTION SPECIALIST for PAF (pt remained SR throughout hospitalizati on), however dt concern for bleeding was started on Coumadin instead. Goal INR 2-3. F/u with cardiology 2)CKD/ARF: Nephrology following patient closely throughout hospitalization. Cr increased h owever improved with hydration. 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 08/12/2014 Vitamin D deficiency 10/13/2017 Past Surgical History: Procedure Laterality Date CARDIAC CATHERIZATION N/A 02/11/2019 Procedure: CV COR ANGIO; Surgeon: Juan Canales MD; Location[place] [facility] CV LAB CORONARY ARTERY BYPASS GRAFT N/A 02/15/2019 Procedure: CORONARY ARTERY BYPASS GRAFT X4 WITH TAKEDOWN LEFT INTERNAL MAMMARY ARTERY, EVH RIGHT SAPHONUS VEIN; Surgeon: Liban Nair MD; Location: [facility] MAIN OR Allergies Allergen Reactions Penicillins Anaphylaxis, [...] to start cardiac rehabilitation in accordance with wharf helper recommendations. Pt advised not to drive for [...] manage prescriptions until pt has seen seen Rotary Rock Drilling Machine Operator and Primary Care Physician, who will resume [...] on file. Follow up: Yue Mcguire PA-C [address] [facility] [address] [facility] [address] Liban Nair MD [address] [facility] E [facility] [address] Schedule an appointment as soon as possible for a visit on 03/13/2019 Post-op Juan Canales MD [address] [address] Schedule an appointment as soon [...] | | | | | | to 220 Give | | | | | | | 4 [email or web address] to 260 | | | | | | | Give 6 [email or web address] | | | | | | | to 300 Give 8 | | | | | | | [email or web address] to 350 Give | | | | [...] a long and complicated [facility]. In brief he is status post [...] was completed later after rounds. Dictation software, [employer], was used which may contain error for [...] this note might be different from the [facility] Service: Cardiology Progress Note Hospital Day: [...] a long and complicated course [facility]. In brief he is status post [...] was completed later after rounds. Dictation software, [employer], was used which may contain error for [...] this note might be different from the [facility] Service: Cardiology Progress Note Hospital Day: [...] Barrow PA-C - 02/27/2019 8:17 AM PST [facility] Service: Cardiothoracic Surgery Progress Note ROOM: 9103/9103-01 [...] hours. No results for input(s): PHART, PO2ART, LRO0SZK, [id number], BEART in the last 168 hours. Recent [...] Continue Step Down Unit care. Discharge to [facility] Nephrology Consult. Code Status: Full Code [...] by: Mark Salcedo MD, PhD, FACS 02/27/2019 10:54[facility] bro RN - 02/26/2019 8:48 PM PSTNo acute events overnight. Tai valdes continues to have multiple loose stools throughout the shift. Ambulating in room and peres without difficulty or SOB. Lifevest remains on. Lauren Diamond RN 02/27/2019 6:11 Trini Lizarraga MD - 02/26/2019 9:05 AM PST [facility] Service: Infectious Disease Progress Note Hospital Day: [...] A/B, NAAT NEGATIVE CLNEG C Diff Strain [id number], Stool 027 NAP1 BI PRESUMPTIVE NEGATIVE POC [...] might be different fro m the original. [facility] Service: Cardiology Progress Note Hospital Day: LOS: [...] Barrow PA-C - 02/26/2019 7:41 AM PST [facility] Service: Cardiothoracic Surgery Progress Note ROOM: [address] [place] [address] Hospital Day: LOS: 15 days Post-Op Day: [...] hours. No results for input(s): PHART, PO2ART, ERZ6AAX, S1SZUMJC, BEART in the last 168 hours. Recent [...] Continue Step Down Unit care. Discharge to [facility] Swing Bed pending Life Vest place [...] Cantor - 02/25/2019 10:06 AM PST . [facility] Service: Cardiothoracic Surgery Progress Note ROOM: 9103/9103-01 [...] hours. No results for input(s): PHART, PO2ART, LOC8TLS, Y2TQQRIY, BEART in the last 168 hours. Recent [...] Continue Step Down Unit care. Placement with [facility] on Tuesday. Code Status: Full Code The patient has been seen, all new lab results and imaging reviewed, and the plan discussed with the attending provider, Dr. Maitas GARCIA, WOOL SPOTTER 02/25/2019 Associated attestation - Mark Salcedo MD [...] might b e different from the original. [facility] Service: Cardiology Progress note Hospital Day: LOS [...] phosphate Current Facilty-Administered PRN Medications Ordered in [facility] Medication Dose Route Frequency Provider Last [...] Chart check complete. Lorena Smith RN [facility] Ros[facility] - 02/24/2019 1:11 PM PDTFormatting of this note might be different from the mitzi merino. [facility] Service: Cardiothoracic Surgery Progress Note ROOM: [address] [place] [address] Hospital Day: LOS: 13 days Post-Op Day: [...] hours. No results for input(s): PHART, PO2ART, SKA0OKK, B4TXQYYO, BEART in the last 168 hours. Recent [...] Continue Step Down Unit care. Placement with [facility] Swing Bed on Tuesday. Code Status: Full Code The patient has been seen, all new lab results and imaging reviewed, and the plan discussed with the attending provider, Dr. Matias GARCIA, WOOL SPOTTER 02/24/2019 Associated attestation - Mark Salcedo MD [...] might b e different from the original. [facility] Service: Cardiology Progress note Hospital Day: LOS [...] Duval at 02/23/2019 2:09 PM Halima Marks [facility] - 1 04/25/2018 1:55 PM PDT Clinical Pharmacy Note: Warfarin Continuation of Therapy Referring Provider: Valeria Robertson male 53 y.o. Indication Atrial Fibrillation, LV thrombus Goal INR: 2-3 Other Anticoagulation: Heparin drip (xarelto listed on PROGRAM PRODUCTION SPECIALIST med list) Drug Interactions: aspirin may increase list of bleeding. PROGRAM PRODUCTION SPECIALIST med list reviewed and no sign ificant [...] drip in anticipati on of discharge to [facility] this weekend. If INR increases by [...] Angelo MD - 02/23/2019 12:59 PM PDT [facility] Service: Cardiology Progress note Hospital Day: LOS [...] Douglas Vargas MD 02/23/19 reen, [address], [facility] - 02/23/2019 8:29 AM PDTFormatting of this note might be different from the or iginal. [facility] Service: Cardiothoracic Surgery Progress Note ROOM: 9103/9103-01 [...] hours. No results for input(s): PHART, PO2ART, FDO6DLW, V3CMEPTF, BEART in the last 168 hours. Recent [...] Continue Step Down Unit care. Placement with [place] Swing Bed pending. Anticipate d ischarge this [...] chart check complete. Meredith Quinones RN roctor, Cecil Razo RPH - 02/22/2019 3:21 PM PDTFormatting of this note might be different from the origi nal. Pharmacy Warfarin Monitoring: Joselito Robertson male 53 y.o. Pharmacy consulted to dose warfarin per: BELINDA Luna INDICATION: Atrial Fibrillation, LV thrombus OTHER ANTICOAGULATION: heparin drip inpatient (Xarelto listed on PROGRAM PRODUCTION SPECIALIST med list) DRUG INTERACTIONS: aspirin and plavix may increase list of bleeding. PROGRAM PRODUCTION SPECIALIST med list reviewed and no significant DDI [...] Angelo MD - 02/22/2019 1:39 PM PDT [facility] Service: Cardiology Cross coverage for Dr. Canales [...] mg 10 mg Rectal Daily PRN BELINDA rEickson dextrose 50% injection 12.5-25 g 12.5-25 g [...] Garcia ARNP - 02/22/2019 7:48 AM PDT [facility] Service: Cardiothoracic Surgery Progress Note ROOM: [facility]/[address] [place] [address] Hospital Day: LOS: 11 days Post-Op Day: [...] 7.383 7.329* 7.309* PO2ART 94 94 83 [id number] 39 43 39 [id number] 97 97 95 Recent Labs Lab 02/22/19 [...] Cardiac Unit care for now. Placement with [facility] Swing Bed pending. Antici fleming discharge [...] OTHER ANTICOAGULATION: none inpatient (Xarelto listed on PROGRAM PRODUCTION SPECIALIST med list) DRUG INTERACTIONS: aspirin and plavix may increase list of bleeding. PROGRAM PRODUCTION SPECIALIST med list reviewed and no significant DDI [...] might be different from the shaggy montelongo [facility] Service: Cardiothoracic Surgery Progress Note ROOM: [address] [place] [address] Hospital Day: LOS: 10 days Post-Op Day: [...] 7.383 7.329* 7.309* PO2ART 94 94 83 [id number] 39 43 39 [id number] 97 97 95 Recent Labs Lab 02/15/19 [...] Cardiac Unit care for now. Placement with [facility] Swing Bed pending. Antici fleming discharge [...] Mott PA-C - 02/20/2019 9:30 AM PDT [facility] Service: Cardiothoracic Surgery Progress Note ROOM: 9103/9103-01 [...] 7.383 7.329* 7.309* PO2ART 94 94 83 [id number] 39 43 39 [id number] 97 97 95 Recent Labs Lab 02/15/19 [...] Cardiac Unit care for now. Placement with [facility] Swing Bed pending. Code Status: Full [...] might be different from the shaggy spann. [facility] Service: Cardiothoracic Surgery Progress Note ROOM: [facility]- Hospital Day: LOS: 8 days [...] 7.383 7.329* 7.309* PO2ART 94 94 83 [id number] 39 43 39 [id number] 97 97 95 Recent Labs Lab 02/15/19 [...] this note might be different from the [facility] Service: Cardiothoracic Surgery Progress Note ROOM: [address] [place] [address] Hospital Day: LOS: 7 days Post-Op Day: [...] Oral BID Continuous Infusions dexmedetomidine Stopped (02/16/19 7952) dextrose 10% EPINEPHrine infusion Stopped (02/16/19 1550) nitroglycerin in dextrose Stopped (02/15/19 1308) phenylephrine 30 mcg/min (02/16/19 0658) vasopressin (VASOSTRICT) infusion (shock) PRN Medications albumin, [...] 7.383 7.329* 7.309* PO2ART 94 94 83 [id number] 39 43 39 [id number] 97 97 95 Recent Labs Lab 02/15/19 [...] Connor Wallace ARNP - 02/18/2019 3:19 AM [facility] Service: Township Clerk Cardiothoracic Surgery Consult and Follow Up Date/Time:02/18/2019 [...] CKD stage 3, psoriasis who presented to [facility] due to a 2 day history of [...] Oral BID current Meds: dexmedetomidine Stopped (02/16/19 1483) dextrose 10% EPINEPHrine infusion Stopped (02/16/19 5520) nitroglycerin in dextrose Stopped (02/15/19 1308) phenylephrine [...] gao PA - 1 4:11 PM PDT [facility] Service: Cardiothoracic Surgery Progress Note ROOM: [address] [place] [address] Hospital Day: LOS: 6 days Post-Op Day: [...] 7.383 7.329* 7.309* PO2ART 94 94 83 [id number] 39 43 39 [id number] 97 97 95 Recent Labs Lab 02/15/19 [...] Connor Lim ARNP - 02/17/2019 1:27 AM [facility] Service: Township Clerk Cardiothoracic Surgery Consult and Follow Up Date/Time:02/17/2019 [...] CKD stage 3, psoriasis who presented to [facility] due to a 2 day history of [...] Sanders PA - 1 9:38 AM PDT [facility] Service: Cardiothoracic Surgery Progress Note ROOM: 16489/38[address]-83 Hospital Day: LOS: 5 days Post-Op Day: [...] C (99 F) (Infrared Device) Comment (Src): [place] catheter | Resp 16 | Ht 1.803 [...] Oral BID Continuous Infusions dexmedetomidine Stopped (02/16/19 2253) dextrose 5% and sodium chloride 0.45% 50 [...] 7.383 7.329* 7.309* PO2ART 94 94 83 [id number] 39 43 39 [id number] 97 97 95 Recent Labs Lab 02/15/19 [...] Celeste Hicks ARNP - 02/16/2019 6:57 AM [facility] Service: Township Clerk Cardiothoracic Surgery Consult and Follow Up Date/Time:02/16/2019 [...] CKD stage 3, psoriasis who presented to [facility] due to a 2 day history of [...] Nair 02/16 - Extubated shortly after midnight Events overnight: - HD stable, SR, on davey @40mcg, epi @1mcg - On 4L NC. - CT output 200 mL, UOP 518 mL OBJECTIVE: Vital Signs: BP 100/60 | Pulse 81 | Temp 37.2 C (99 F) (Infrared Device) Comment (Src): [place] catheter | Resp 19 | Ht 1.803 [...] present acr oss bilateral hands LINES/TUBES: PIV, rgaff, CT x 2, R IJ cordis, A-line Diagnostic Studies: Available labs and images have been reviewed and will be addressed as indicated in the assessment and plan. ASSESSMENT & PLAN: 1. Severe 3 vessel CAD s/p CABG x 4 + EVH - Medical management per primary service (ASA, plavix, betablocker, statin) - extubated to [place]. - Post operative management per CTS (chest [...] procedures. SHABBIR Bishop 02/16/2019 6:57 Ritu Caicedo, APPLICATIONS ANALYST - 02/16/2019 12:46 AM PDT 02/16/19 0031 [...] | BMI 28.93 kg/m General appearance: intubated; [facility] ventilated Lungs: Clear to auscultation by CHARISMA. [...] admitted with: "NSTEMI (non-ST elevated myocardial infarction) ([facility])". -He presented with: "Chest Pain" Recommendations: No acute APPLICATIONS ANALYST indication Gentle IVF. Plan to stop IVF [...] the ON pump repor t by phone [phone] @ 2706 OFF bypass report received @ 4951 Gave Pt's ex- the OFF pump report [...] prayers by chaplazenon. Pt & family thanked [facility] for visit & info. Chaplain Dylan Duboisy [...] presented with: "Chest Pain" Recommendations: No acute APPLICATIONS ANALYST indication Stop IVF Strict low sodium in [...] Sue Calderon MD - 8:52 AM PDT [facility] Service: Hospitalist Progress Note Hospital Day: LOS: 3 days Post-Op Day: Day of Surgery SUBJECTIVE Patient Summary: 53-year-old male who has a known history of coronary arter y disease, status post stenting approximately in 2007, afib on xarelto, hypertension, HLD, D M type II who was transferred from [facility] for chest pain and was found [...] sodium chloride 0.9% 75 mL/hr at 02/13/19 1104 PRN Medications acetaminophen, Hypoglycemia Management AND POCT [...] inpatient, currently scheduled for . Chronic diarrhea: [place] to be related to lactose intolerance. He [...] this note might be different from the [facility] Service: Cardiology Progress Note Hospital Day: [...] Jacinda Damon RN - 02/13/2019 10:39 PM [id number] Patient complained of CP 1x nitroglycerin given [...] dextrose 10% heparin infusion 12 Units/kg/hr (02/13/19 8761) sodium chloride 0.9% 1,000 mL (02/13/19 3810) P.E. BP 115/72 | Pulse 78 | [...] risk of JAMESON are undertaken. No acute APPLICATIONS ANALYST indication Gentle IVF as ordered Strict low [...] MD - 02/13/2019 8:59 AM PDT . [facility] Service: Cardiology Progress Note Hospital Day: LOS: [...] this note might be different from the [facility] Service: Hospitalist Progress Note Hospital Day: LOS: 2 days Post-Op Day: Day of Surgery SUBJECTIVE Patient Summary: 53-year-old male who has a known history of coronary arter y disease, status post stenting approximately in 2007, afib on xarelto, hypertension, HLD, D M type II who was transferred from [facility] for chest pain and was found [...] dextrose 10% heparin infusion 12 Units/kg/hr (02/13/19 6201) sodium chloride 0.9% 1,000 mL (02/13/19 0990) PRN Medications acetaminophen, Hypoglycemia Management AND POCT [...] PV Regurgitation Velocity 132.5 cm/s AV Deceleration Lee 224.61 cm/s2 AV Deceleration Time 1,390.28 msec [...] Color, UA YELLOW Clarity, UA HAZY Specific [place], Urine 1.020 1.002 - 1.030 Leukocyte esterase, [...] heart failure: last echo done 11/01/18 from [facility] everyw here shows EF of 45-50%. Repeat [...] note might be different from the original. [facility] Service: Hospitalist Progress Note Hospital Day: LOS: 1 day Post-Op Day: Day of Surgery SUBJECTIVE Patient Summary: 53-year-old male who has a known history of coronary arter y disease, status post stenting approximately in 2007, afib on xarelto, hypertension, HLD, D M type II who was transferred from [facility] for chest pain and was found [...] PV Regurgitation Velocity 132.5 cm/s AV Deceleration Lee 224.61 cm/s2 AV Deceleration Time 1,390.28 msec [...] Color, UA YELLOW Clarity, UA HAZY Specific [place], Urine 1.020 1.002 - 1.030 Leukocyte esterase, [...] Sue Avitia MD 02/12/2019 relio, JANNETTE Cantor [place] - 02/12/2019 8:54 AM PDTCalLTAC, located within [facility] pharmacy and informed that patient picked up h is Xarelto on 02/10/19. Per documentation and patient information. Patient took his last dos e of Xarelto on Tuesday morning (02/10/19). He then presented to [place]'s ED on the af ternoon of 02/10 and was transferred to [facility] early Tuesday (02/11/2019). Additionally, per ED documentation, the patient has not seen a Rotary Rock Drilling Machine Operator in 8 years, how ever he was [...] Price MD - 02/12/2019 8:48 AM PDT [facility] Service: Cardiology Progress Note Hospital Day: LOS: [...] Denied CP throughout shift. [facility] Hourly rounding uneventful otherwise. Chart check complete. Ale Beranrd, RN Kerline Rojas RN - 02/11/2019 7:00 PM PDTPt transferred from laborer syrup machine to the floor at 1344 and remained [...] Calderon MD - 02/11/2019 12:00 PM PDT [facility] Service: Hospitalist Progress Note Hospital Day: LOS: [...] Confirmed by MUSE READ ONLY, -COMPUTER ([id number]), web editor Fajardo, Shea ([id number]) on 02/11/2019 12:59 :59 [...] heart failure: last echo done 11/01/18 from [facility] everyw here shows EF of 45-50%. As [...] | Visit | | MD [address] | | | | | | [address] [place] | | | | | | [place] [address] | | | | | | [phone] | | | | | | | [...] | | | RN: | | | [id number] | | | [id number] | | | riteri | | | [...] | | | St. | | | [place] | | | y | | | [...] | | | St. | | | [place] | | | y H. | | [...] | | | St. | | | [place] | | | y H. | | [...] | | | St. | | | [place] | | | y H. | | [...] | | | St. | | | [place] | | | y H. | | [...] | | | St. | | | [place] | | | y H. | | [...] | | e of | | | [place] | | | | | | dasilva [...] Testing | 65 - 99 mg/dL | [facility] | | | POC | performed at [facility];[address] | | LABORATORY | | | | [address];[place] | | | | | | [address] | | | | + + + + + + + + | Specimen | + + | | + + + + + + + | Performing | Address | City/State/Zipcode | Phone Number | | Organization | | | | + + + + + | [facility] | [address] | [place] [address] | [phone] | + + + + + Protime [...] | | | | | performed at [facility] | | | | | | [facility];[place], [place] | | | | | | [address] | | | | + + + + + + + + | Specimen | + + | Blood | + + + + + + + | Performing | Address | City/State/Zipcode | Phone Number | | Organization | | | | + + + + + | [facility] | [address] | [place] [address] | [phone] | + + + + + Magnesium (02/28/2019 4:39 AM PST) + + + + + + | Component | Value | Ref Range | Performed | Pathologist | | | | | At | Signature | + + + + + + | Magnesium | 2.0Comment: Testing | 1.7 - 2.4 mg/dL | [facility] | | | | performed at [facility], [address] | | LABORATORY | | | | [address] [place], | | | | | | [place] [address] | | | | + + + + + + + + | Specimen | + + | Blood | + + + + + + + | Performing | Address | City/State/Zipcode | Phone Number | | Organization | | | | + + + + + | [facility] | [address] | [place] [address] | [phone] | + + + + + CBC [...] (H)Comment: Testing | 0.00 - 0.10 | [facility] | | | Absolute | performed at [facility], [address] | LABORATORY | | | | [address], | | | | | | [place] [address] | | | | + + + + + + + + | Specimen | + + | Blood | + + + + + + + | Performing | Address | City/State/Zipcode | Phone Number | | Organization | | | | + + + + + | [facility] | [address] | [place] [address] | [phone] | + + + + + Basic [...] | | | | | performed at [facility], [address] | | | | | | [facility], | | | | | | [place] [address] | | | | + + + + + + + + | Specimen | + + | Blood | + + + + + + + | Performing | Address | City/State/Zipcode | Phone Number | | Organization | | | | + + + + + | [facility] | [address] | [place] [address] | [phone] | + + + + + POC Glucose (02/27/2019 9:10 PM PST) + + + + + + | Component | Value | Ref Range | Performed | Pathologist | | | | | At | Signature | + + + + + + | Glucose, | 115 (H)Comment: Testing | 65 - 99 mg/dL | [facility] | | | POC | performed at [facility];[address] | | LABORATORY | | | | [address];[place] | | | | | | [address] | | | | + + + + + + + + | Specimen | + + | | + + + + + + + | Performing | Address | City/State/Zipcode | Phone Number | | Organization | | | | + + + + + | [facility] | [address] | [place] [address] | [phone] | + + + + + POC Glucose (02/27/2019 5:25 PM PST) + + + + + + | Component | Value | Ref Range | Performed | Pathologist | | | | | At | Signature | + + + + + + | Glucose, | 205 (H)Comment: Testing | 65 - 99 mg/dL | [facility] | | | POC | performed at [facility];[address] | | LABORATORY | | | [address];[place] | | | | | | [address] | | | | + + + + + + + + | Specimen | + + | | + + + + + + + | Performing | Address | City/State/Zipcode | Phone Number | | Organization | | | | + + + + + | [facility] | [address] | [place] [address] | [phone] | + + + + + POC [...] | | | POC | performed at [facility];[address] | | LABORATORY | | | | [address];[place] | | | | | | [address] | | | | + + + + + + + + | Specimen | + + | | + + + + + + + | Performing | Address | City/State/Zipcode | Phone Number | | Organization | | | | + + + + + | [facility] | [address] | [place] [address] | [phone] | + + + + + POC [...] | | | POC | performed at [facility];[address] | | LABORATORY | | | | [address];[place] | | | | | | [address] | | | | + + + + + + + + | Specimen | + + | | + + + + + + + | Performing | Address | City/State/Zipcode | Phone Number | | Organization | | | | + + + + + | [facility] | [address] | [place] [address] | [phone] | + + + + + POC [...] | | | POC | performed at [facility];[address] | | LABORATORY | | | | [address];[place] | | | | | | [address] | | | | + + + + + + + + | Specimen | + + | | + + + + + + + | Performing | Address | City/State/Zipcode | Phone Number | | Organization | | | | + + + + + | [facility] | [address] | [place] [address] | [phone] | + + + + + Protime INR (02/27/2019 3:49 AM PST) + + + + + + | Component | Value | Ref Range | Performed | Pathologist | | | | | At | Signature | + + + + + + | INR | 2.7Comment: REFERENCE | | [facility] | | | | RANGE:0.9 - [...] | | | | | performed at [facility];8 | | | | | | [facility];[place], [place] | | | | | | [address] | | | | + + + + + + + + | Specimen | + + | Blood | + + + + + + + | Performing | Address | City/State/Zipcode | Phone Number | | Organization | | | | + + + + + | [facility] | [address] [facility] | [place] [address] | [phone] | + + + + + Magnesium (02/27/2019 3:49 AM PST) + + + + + + | Component | Value | Ref Range | Performed | Pathologist | | | | | At | Signature | + + + + + + | Magnesium | 2.0Comment: Testing | 1.7 - 2.4 mg/dL | [facility] | | | | performed at [facility], [address] | | LABORATORY | | | | [address], | | | | | | [place] [address] | | | | + + + + + + + + | Specimen | + + | Blood | + + + + + + + | Performing | Address | City/State/Zipcode | Phone Number | | Organization | | | | + + + + + | [facility] | [address] | [place] [address] | [phone] | + + + + + CBC [...] | | | Absolute | performed at [facility], [address] | K/uL | LABORATORY | | | | [address], | | | | | | [place] [address] | | | | + + + + + + + + | Specimen | + + | Blood | + + + + + + + | Performing | Address | City/State/Zipcode | Phone Number | | Organization | | | | + + + + + | [facility] | [address] | [place] [address] | [phone] | + + + + + Basic [...] 32 (L)Comment: GFR <60: | >60 | [facility] | | | GFR | CHRONIC [...] | | | | | | MDRD [facility] traceable | | | | | | equation.Testing | | | | | | performed at [facility], [address] | | | | | | [facility], | | | | | | [place] [address] | | | | + + + + + + + + | Specimen | + + | Blood | + + + + + + + | Performing | Address | City/State/Zipcode | Phone Number | | Organization | | | | + + + + + | [facility] | [address] | [place] [address] | [phone] | + + + + + POC [...] | | | POC | performed at [facility];[address] | | LABORATORY | | | | [address];[place] | | | | | | [address] | | | | + + + + + + + + | Specimen | + + | | + + + + + + + | Performing | Address | City/State/Zipcode | Phone Number | | Organization | | | | + + + + + | [facility] | [address] | [place] [address] | [phone] | + + + + + POC Glucose (02/26/2019 4:51 PM PST) + + + + + + | Component | Value | Ref Range | Performed | Pathologist | | | | | At | Signature | + + + + + + | Glucose, | 157 (H)Comment: Testing | 65 - 99 mg/dL | [facility] | | | POC | performed at [facility];[address] | | LABORATORY | | | | [address];[place] | | | | | | [address] | | | | + + + + + + + + | Specimen | + + | | + + + + + + + | Performing | Address | City/State/Zipcode | Phone Number | | Organization | | | | + + + + + | [facility] | [address] | [place] [address] | [phone] | + + + + + POC [...] | | | POC | performed at [facility];[address] | | LABORATORY | | | | [address];[place], [place] | | | | | | [address] | | | | + + + + + + + + | Specimen | + + | | + + + + + + + | Performing | Address | City/State/Zipcode | Phone Number | | Organization | | | | + + + + + | [facility] | [address] | [place] [address] | [phone] | + + + + + POC [...] | | | POC | performed at [facility];[address] | | LABORATORY | | | | [address];[place] | | | | | | [address] | | | | + + + + + + + + | Specimen | + + | | + + + + + + + | Performing | Address | City/State/Zipcode | Phone Number | | Organization | | | | + + + + + | [facility] | [address] | [place] [address] | [phone] | + + + + + Darrell CHAMBERS (02/26/2019 4:04 AM PST) + + + + + + | Component | Value | Ref Range | Performed | Pathologist | | | | | At | Signature | + + + + + + | INR | 2.9Comment: REFERENCE | | [facility] | | | | RANGE:0.9 - [...] | | | | | performed at [facility];[address] | | | | | | [address];[place] | | | | | | [address] | | | | + + + + + + + + | Specimen | + + | Blood | + + + + + + + | Performing | Address | City/State/Zipcode | Phone Number | | Organization | | | | + + + + + | [facility] | [address] | [place] [address] | [phone] | + + + + + Magnesium (02/26/2019 4:04 AM PST) + + + + + + | Component | Value | Ref Range | Performed | Pathologist | | | | | At | Signature | + + + + + + | Magnesium | 2.0Comment: Testing | 1.7 - 2.4 mg/dL | [facility] | | | | performed at [facility], [address] | | LABORATORY | | | | [address], | | | | | | [place] [address] | | | | + + + + + + + + | Specimen | + + | Blood | + + + + + + + | Performing | Address | City/State/Zipcode | Phone Number | | Organization | | | | + + + + + | [facility] | [address] | [place] [address] | [phone] | + + + + + CBC [...] | | | Absolute | performed at [facility], [address] | K/uL | LABORATORY | | | | [address], | | | | | | [place] [address] | | | | + + + + + + + + | Specimen | + + | Blood | + + + + + + + | Performing | Address | City/State/Zipcode | Phone Number | | Organization | | | | + + + + + | [facility] | [address] | [place] [address] | [phone] | + + + + + Basic [...] | | | | | | MDRD IDMD traceable | | | | | | equation.Testing | | | | | | performed at [facility], [address] | | | | | | [facility], | | | | | | [place] [address] | | | | + + + + + + + + | Specimen | + + | Blood | + + + + + + + | Performing | Address | City/State/Zipcode | Phone Number | | Organization | | | | + + + + + | [facility] | [address] | [place] [address] | [phone] | + + + + + POC Glucose (02/25/2019 9:05 PM PST) + + + + + + | Component | Value | Ref Range | Performed | Pathologist | | | | | At | Signature | + + + + + + | Glucose, | 114 (H)Comment: Testing | 65 - 99 mg/dL | [facility] | | | POC | performed at [facility];[address] | | LABORATORY | | | | [address];[place] | | | | | | [address] | | | | + + + + + + + + | Specimen | + + | | + + + + + + + | Performing | Address | City/State/Zipcode | Phone Number | | Organization | | | | + + + + + | [facility] | [address] | [place] [address] | [phone] | + + + + + Clostridium [...] NEGATIVEComment: | | LABORATORY | | | [id number] | Detection of 027 NAP1 BI | [...] | | | | | performed at [facility] | | | | | | [facility];[place], [place] | | | | | | [address] | | | | + + + + + + + + | Specimen | + + | Stool - Stool | | specimen (specimen) | + + + + + + + | Performing | Address | City/State/Zipcode | Phone Number | | Organization | | | | + + + + + | [facility] | [address] | [place] [address] | [phone] | + + + + + POC Glucose (02/25/2019 4:31 PM PST) + + + + + + | Component | Value | Ref Range | Performed | Pathologist | | | | | At | Signature | + + + + + + | Glucose, | 231 (H)Comment: Testing | 65 - 99 mg/dL | [facility] | | | POC | performed at [facility];[address] | | LABORATORY | | | | [address];[place] | | | | | | [address] | | | | + + + + + + + + | Specimen | + + | | + + + + + + + | Performing | Address | City/State/Zipcode | Phone Number | | Organization | | | | + + + + + | [facility] | [address] | [place] [address] | [phone] | + + + + + POC [...] | | | POC | performed at [facility];[address] | | LABORATORY | | | | [address];[place], [place] | | | | | | [address] | | | | + + + + + + + + | Specimen | + + | | + + + + + + + | Performing | Address | City/State/Zipcode | Phone Number | | Organization | | | | + + + + + | [facility] | [address] | [place] [address] | [phone] | + + + + + Clostridium [...] | C. | Indeterminant, repeat | | [facility] | | | difficile, | with fresh | | LABORATORY | | | Interp | sample.Comment: Testing | | | | | | performed at [facility];[address] | | | | | | [address] [facility];[place] | | | | | | [address] | | | | + + + + + + + + | Specimen | + + | | + + + + + + + | Performing | Address | City/State/Zipcode | Phone Number | | Organization | | | | + + + + + | [facility] | [address] | [place] [address] | [phone] | + + + + + POC [...] | | | POC | performed at [facility];[address] | | LABORATORY | | | | [address];[place], [place] | | | | | | [address] | | | | + + + + + + + + | Specimen | + + | | + + + + + + + | Performing | Address | City/State/Zipcode | Phone Number | | Organization | | | | + + + + + | [facility] | [address] | [place] [address] | [phone] | + + + + + POC Glucose (02/25/2019 6:42 AM PST) + + + + + + | Component | Value | Ref Range | Performed | Pathologist | | | | | At | Signature | + + + + + + | Glucose, | 111 (H)Comment: Testing | 65 - 99 mg/dL | [facility] | | | POC | performed at [facility];[address] | | LABORATORY | | | | [address];[place] | | | | | | [address] | | | | + + + + + + + + | Specimen | + + | | + + + + + + + | Performing | Address | City/State/Zipcode | Phone Number | | Organization | | | | + + + + + | [facility] | [address] | [place] [address] | [phone] | + + + + + Hepatic [...] [facility] | | | | performed at [facility], [address] | | LABORATORY | | | | [address], | | | | | | [place] [address] | | | | + + + + + + + + | Specimen | + + | Blood | + + + + + + + | Performing | Address | City/State/Zipcode | Phone Number | | Organization | | | | + + + + + | [facility] | [address] | [place] [address] | [phone] | + + + + + Protime INR (02/25/2019 4:07 AM PST) + + + + + + | Component | Value | Ref Range | Performed | Pathologist | | | | | At | Signature | + + + + + + | INR | 2.2Comment: REFERENCE | | [facility] | | | | RANGE:0.9 - [...] | | | | | performed at [facility];[address] | | | | | | [facility];[place], [place] | | | | | | [address] | | | | + + + + + + + + | Specimen | + + | Blood | + + + + + + + | Performing | Address | City/State/Zipcode | Phone Number | | Organization | | | | + + + + + | [facility] | [address] [facility] | [place] [address] | [phone] | + + + + + Magnesium (02/25/2019 4:07 AM PST) + + + + + + | Component | Value | Ref Range | Performed | Pathologist | | | | | At | Signature | + + + + + + | Magnesium | 2.0Comment: Testing | 1.7 - 2.4 mg/dL | [facility] | | | | performed at [facility], [address] | | LABORATORY | | | | [address], | | | | | | [place] [address] | | | | + + + + + + + + | Specimen | + + | Blood | + + + + + + + | Performing | Address | City/State/Zipcode | Phone Number | | Organization | | | | + + + + + | [facility] | [address] | [place] [address] | [phone] | + + + + + CBC [...] | | | | | [place] [address] | | | | + + + + + + + + | Specimen | + + | Blood | + + + + + + + | Performing | Address | City/State/Zipcode | Phone Number | | Organization | | | | + + + + + | [facility] | [address] | [place] [address] | [phone] | + + + + + Basic [...] | LABORATORY | | | | [id number] [id number] CMS | | | | | |[address]RP 0733 [id number] CMS | | | | | | [...] 8.4 (L) | 8.5 - 10.5 | [facility] | | | | | mg/dL | LABORATORY | | + + + + + + | Estimated | 53 (L)Comment: GFR <60: | >60 | [facility] | | | GFR | CHRONIC [...] | | | | | | MDRD IDMD traceable | | | | | | equation.Testing | | | | | | performed at [facility], [address] | | | | | | [facility], | | | | | | [place] [address] | | | | + + + + + + + + | Specimen | + + | Blood | + + + + + + + | Performing | Address | City/State/Zipcode | Phone Number | | Organization | | | | + + + + + | [facility] | [address] | [place] [address] | [phone] | + + + + + POC [...] | | | POC | performed at [facility];[address] | | LABORATORY | | | | [address];[place] | | | | | | [address] | | | | + + + + + + + + | Specimen | + + | | + + + + + + + | Performing | Address | City/State/Zipcode | Phone Number | | Organization | | | | + + + + + | [facility] | [address] | [place] [address] | [phone] | + + + + + POC [...] | | | POC | performed at [facility];[address] | | LABORATORY | | | | [address];[place] | | | | | | [address] | | | | + + + + + + + + | Specimen | + + | | + + + + + + + | Performing | Address | City/State/Zipcode | Phone Number | | Organization | | | | + + + + + | [facility] | [address] | [place] [address] | [phone] | + + + + + POC [...] | | | POC | performed at [facility];[address] | | LABORATORY | | | | [address];[place] | | | | | | [address] | | | | + + + + + + + + | Specimen | + + | | + + + + + + + | Performing | Address | City/State/Zipcode | Phone Number | | Organization | | | | + + + + + | [facility] | [address] | [place] [address] | [phone] | + + + + + POC [...] | | | POC | performed at [facility];[address] | | LABORATORY | | | | [address];[place] | | | | | | [address] | | | | + + + + + + + + | Specimen | + + | | + + + + + + + | Performing | Address | City/State/Zipcode | Phone Number | | Organization | | | | + + + + + | [facility] | [address] | [place] [address] | [phone] | + + + + + Sandipime [...] | | | | | performed at [facility];[address] | | | | | | [address];[place], [place] | | | | | | [address] | | | | + + + + + + + + | Specimen | + + | Blood | + + + + + + + | Performing | Address | City/State/Zipcode | Phone Number | | Organization | | | | + + + + + | [facility] | [address] | [place] [address] | [phone] | + + + + + Magnesium [...] | | | | | [place] [address] | | | | + + + + + + + + | Specimen | + + | Blood | + + + + + + + | Performing | Address | City/State/Zipcode | Phone Number | | Organization | | | | + + + + + | [facility] | [address] | [place] [address] | [phone] | + + + + + CBC [...] | | | Absolute | performed at [facility], [address] | K/uL | LABORATORY | | | | [address], | | | | | | [place] [address] | | | | + + + + + + + + | Specimen | + + | Blood | + + + + + + + | Performing | Address | City/State/Zipcode | Phone Number | | Organization | | | | + + + + + | [facility] | [address] | [place] [address] | [phone] | + + + + + Basic [...] 8.2 (L) | 8.5 - 10.5 | [facility] | | | | | mg/dL | LABORATORY | | + + + + + + | Estimated | 53 (L)Comment: GFR <60: | >60 | [facility] | | | GFR | CHRONIC [...] | | | | | | MDRD IDMD traceable | | | | | | equation.Testing | | | | | | performed at [facility], [address] | | | | | | [facility], | | | | | | [place] [address] | | | | + + + + + + + + | Specimen | + + | Blood | + + + + + + + | Performing | Address | City/State/Zipcode | Phone Number | | Organization | | | | + + + + + | [facility] | [address] | [place] [address] | [phone] | + + + + + PTT (02/24/2019 4:22 AM PDT) + + + + + + | Component | Value | Ref Range | Performed | Pathologist | | | | | At | Signature | + + + + + + | PTT | 90 (HH)Comment: CALLED | 23 - 32 seconds | [facility] | | | | NURSING UNITREAD BACK | | LABORATORY | | | | RESULTS VERIFIEDYESSICA | | | | | | O IN 9RP AT 0542 BY | | | | | | TDTesting performed at | | | | | | [facility];[address];[place] [address] | | | | + + + + + + + + | Specimen | + + | Blood | + + + + + + + | Performing | Address | City/State/Zipcode | Phone Number | | Organization | | | | + + + + + | [facility] | [address] | [place] [address] | [phone] | + + + + + Potassium (02/23/2019 9:19 PM PDT) + + + + + + | Component | Value | Ref Range | Performed | Pathologist | | | | | At | Signature | + + + + + + | K | 4.8Comment: Testing | 3.5 - 4.9 | [facility] | | | | performed at [facility];[address] | mmol/L | LABORATORY | | | | [facility] [address] [facility];[place], [place] | | | | | | [address] | | | | + + + + + + + + | Specimen | + + | Blood | + + + + + + + | Performing | Address | City/State/Zipcode | Phone Number | | Organization | | | | + + + + + | [facility] | [address] | [place] [address] | [phone] | + + + + + POC [...] | | | POC | performed at [facility];[address] | | LABORATORY | | | | [address];[place] | | | | | | [address] | | | | + + + + + + + + | Specimen | + + | | + + + + + + + | Performing | Address | City/State/Zipcode | Phone Number | | Organization | | | | + + + + + | [facility] | [address] | [place] [address] | [phone] | + + + + + POC [...] | | | POC | performed at [facility];[address] | | LABORATORY | | | | [address];[place] | | | | | | [address] | | | | + + + + + + + + | Specimen | + + | | + + + + + + + | Performing | Address | City/State/Zipcode | Phone Number | | Organization | | | | + + + + + | [facility] | [address] | [place] [address] | [phone] | + + + + + POC [...] | | | POC | performed at [facility];[address] | | LABORATORY | | | | [address];[place], [place] | | | | | | [address] | | | | + + + + + + + + | Specimen | + + | | + + + + + + + | Performing | Address | City/State/Zipcode | Phone Number | | Organization | | | | + + + + + | [facility] | [address] | [place] [address] | [phone] | + + + + + POC Glucose (02/23/2019 9:29 AM PDT) + + + + + + | Component | Value | Ref Range | Performed | Pathologist | | | | | At | Signature | + + + + + + | Glucose, | 165 (H)Comment: Testing | 65 - 99 mg/dL | [facility] | | | POC | performed at [facility];[address] | | LABORATORY | | | | [address];[place] | | | | | | [address] | | | | + + + + + + + + | Specimen | + + | | + + + + + + + | Performing | Address | City/State/Zipcode | Phone Number | | Organization | | | | + + + + + | [facility] | [address] | [place] [address] | [phone] | + + + + + PTT (02/23/2019 4:24 AM PDT) + + + + + + | Component | Value | Ref Range | Performed | Pathologist | | | | | At | Signature | + + + + + + | PTT | 56 (H)Comment: Testing | 23 - 32 seconds | [facility] | | | | performed at [facility];[address] | | LABORATORY | | | | [address];[place] | | | | | | [address] | | | | + + + + + + + + | Specimen | + + | | + + + + + + + | Performing | Address | City/State/Zipcode | Phone Number | | Organization | | | | + + + + + | [facility] | [address] | [place] [address] | [phone] | + + + + + Protime [...] | | | | | performed at [facility] | | | | | | [facility];[place], [place] | | | | | | [address] | | | | + + + + + + + + | Specimen | + + | Blood | + + + + + + + | Performing | Address | City/State/Zipcode | Phone Number | | Organization | | | | + + + + + | [facility] | [address] | [place] [address] | [phone] | + + + + + Magnesium (02/23/2019 4:24 AM PDT) + + + + + + | Component | Value | Ref Range | Performed | Pathologist | | | | | At | Signature | + + + + + + | Magnesium | 2.0Comment: Testing | 1.7 - 2.4 mg/dL | [facility] | | | | performed at [facility], [address] | | LABORATORY | | | | [address], | | | | | | [place] [address] | | | | + + + + + + + + | Specimen | + + | Blood | + + + + + + + | Performing | Address | City/State/Zipcode | Phone Number | | Organization | | | | + + + + + | [facility] | [address] | [place] [address] | [phone] | + + + + + CBC [...] | | | Absolute | performed at [facility], [address] | K/uL | LABORATORY | | | | [address], | | | | | | [place] [address] | | | | + + + + + + + + | Specimen | + + | Blood | + + + + + + + | Performing | Address | City/State/Zipcode | Phone Number | | Organization | | | | + + + + + | [facility] | [address] | [place] [address] | [phone] | + + + + + Basic [...] | | | | | performed at [facility], [address] | | | | | | [facility], | | | | | | [place] [address] | | | | + + + + + + + + | Specimen | + + | Blood | + + + + + + + | Performing | Address | City/State/Zipcode | Phone Number | | Organization | | | | + + + + + | [facility] | [address] | [place] [address] | [phone] | + + + + + PTT (02/22/2019 10:58 PM PDT) + + + + + + | Component | Value | Ref Range | Performed | Pathologist | | | | | At | Signature | + + + + + + | PTT | 50 (H)Comment: Testing | 23 - 32 seconds | [facility] | | | | performed at [facility];[address] | | LABORATORY | | | | [address];[place] | | | | | | [address] | | | | + + + + + + + + | Specimen | + + | Blood | + + + + + + + | Performing | Address | City/State/Zipcode | Phone Number | | Organization | | | | + + + + + | [facility] | [address] | [place] [address] | [phone] | + + + + + POC [...] | | | POC | performed at [facility];[address] | | LABORATORY | | | | [address]iv Huang;[place], [place] | | | | | | [address] | | | | + + + + + + + + | Specimen | + + | | + + + + + + + | Performing | Address | City/State/Zipcode | Phone Number | | Organization | | | | + + + + + | [facility] | [address] | [place] [address] | [phone] | + + + + + POC [...] | | | POC | performed at [facility];[address] | | LABORATORY | | | [address] | | | | | | [address] | | | | + + + + + + + + | Specimen | + + | | + + + + + + + | Performing | Address | City/State/Zipcode | Phone Number | | Organization | | | | + + + + + | [facility] | [address] | [place] [address] | [phone] | + + + + + PTT (02/22/2019 4:55 PM PDT) + + + + + + | Component | Value | Ref Range | Performed | Pathologist | | | | | At | Signature | + + + + + + | PTT | 41 (H)Comment: Testing | 23 - 32 seconds | [facility] | | | | performed at [facility];[address] | | LABORATORY | | | | [address];[place] | | | | | | [address] | | | | + + + + + + + + | Specimen | + + | Blood | + + + + + + + | Performing | Address | City/State/Zipcode | Phone Number | | Organization | | | | + + + + + | [facility] | [address] | [place] [address] | [phone] | + + + + + Potassium (02/22/2019 12:15 PM PDT) + + + + + + | Component | Value | Ref Range | Performed | Pathologist | | | | | At | Signature | + + + + + + | K | 4.0Comment: Testing | 3.5 - 4.9 | [facility] | | | | performed at [facility];888 | mmol/L | LABORATORY | | | | [address];[place], [place] | | | | | | [address] | | | | + + + + + + + + | Specimen | + + | Blood | + + + + + + + | Performing | Address | City/State/Zipcode | Phone Number | | Organization | | | | + + + + + | [facility] | [address] | [place] [address] | [phone] | + + + + + POC [...] | | | POC | performed at [facility];[address] | | LABORATORY | | | | [address];[place], [place] | | | | | | [address] | | | | + + + + + + + + | Specimen | + + | | + + + + + + + | Performing | Address | City/State/Zipcode | Phone Number | | Organization | | | | + + + + + | [facility] | [address] | [place] [address] | [phone] | + + + + + PTT (02/22/2019 10:19 AM PDT) + + + + + + | Component | Value | Ref Range | Performed | Pathologist | | | | | At | Signature | + + + + + + | PTT | 31Comment: Testing | 23 - 32 seconds | [facility] | | | | performed at [facility];888 | | LABORATORY | | | | [address];[place] | | | | | | [address] | | | | + + + + + + + + | Specimen | + + | Blood | + + + + + + + | Performing | Address | City/State/Zipcode | Phone Number | | Organization | | | | + + + + + | [facility] | [address] | [place] [address] | [phone] | + + + + + POC Glucose (02/22/2019 7:49 AM PDT) + + + + + + | Component | Value | Ref Range | Performed | Pathologist | | | | | At | Signature | + + + + + + | Glucose, | 188 (H)Comment: Testing | 65 - 99 mg/dL | [facility] | | | POC | performed at [facility];[address] | | LABORATORY | | | | [address];[place] | | | | | | [address] | | | | + + + + + + + + | Specimen | + + | | + + + + + + + | Performing | Address | City/State/Zipcode | Phone Number | | Organization | | | | + + + + + | [facility] | [address] | [place] [address] | [phone] | + + + + + Protime [...] | | | | | performed at [facility];888 | | | | | | [address];[place] | | | | | | [address] | | | | + + + + + + + + | Specimen | + + | Blood | + + + + + + + | Performing | Address | City/State/Zipcode | Phone Number | | Organization | | | | + + + + + | [facility] | [address] | [place] [address] | [phone] | + + + + + Magnesium (02/22/2019 4:02 AM PDT) + + + + + + | Component | Value | Ref Range | Performed | Pathologist | | | | | At | Signature | + + + + + + | Magnesium | 1.8Comment: Testing | 1.7 - 2.4 mg/dL | [facility] | | | | performed at [facility], [address] | | LABORATORY | | | | [address], | | | | | | [place] [address] | | | | + + + + + + + + | Specimen | + + | Blood | + + + + + + + | Performing | Address | City/State/Zipcode | Phone Number | | Organization | | | | + + + + + | [facility] | [address] | [place] [address] | [phone] | + + + + + CBC [...] | | | Absolute | performed at [facility], [address] | K/uL | LABORATORY | | | | [facility], | | | | | | [place] [address] | | | | + + + + + + + + | Specimen | + + | Blood | + + + + + + + | Performing | Address | City/State/Zipcode | Phone Number | | Organization | | | | + + + + + | [facility] | [address] | [place] [address] | [phone] | + + + + + Basic [...] 58 (L)Comment: GFR <60: | >60 | [facility] | | | GFR | CHRONIC [...] | | | | | | MDRD IDMD traceable | | | | | | equation.Testing | | | | | | performed at [facility], [address] | | | | | | [facility], | | | | | | [place] [address] | | | | + + + + + + + + | Specimen | + + | Blood | + + + + + + + | Performing | Address | City/State/Zipcode | Phone Number | | Organization | | | | + + + + + | [facility] | [address] | [place] [address] | [phone] | + + + + + POC [...] | | | POC | performed at [facility];[address] | | LABORATORY | | | | [address];[place] | | | | | | [address] | | | | + + + + + + + + | Specimen | + + | | + + + + + + + | Performing | Address | City/State/Zipcode | Phone Number | | Organization | | | | + + + + + | [facility] | [address] | [place] [address] | [phone] | + + + + + POC Glucose (02/21/2019 6:01 PM PDT) + + + + + + | Component | Value | Ref Range | Performed | Pathologist | | | | | At | Signature | + + + + + + | Glucose, | 212 (H)Comment: Testing | 65 - 99 mg/dL | [facility] | | | POC | performed at [facility];[address] | | LABORATORY | | | | [address];[place], [place] | | | | | | [address] | | | | + + + + + + + + | Specimen | + + | | + + + + + + + | Performing | Address | City/State/Zipcode | Phone Number | | Organization | | | | + + + + + | [facility] | [address] | [place] [address] | [phone] | + + + + + Protime [...] | | | | | performed at [facility] | | | | | | [address];[place], [place] | | | | | | [address] | | | | + + + + + + + + | Specimen | + + | Blood | + + + + + + + | Performing | Address | City/State/Zipcode | Phone Number | | Organization | | | | + + + + + | [facility] | [address] | [place] [address] | [phone] | + + + + + POC Glucose (02/21/2019 12:39 PM PDT) + + + + + + | Component | Value | Ref Range | Performed | Pathologist | | | | | At | Signature | + + + + + + | Glucose, | 93Comment: Testing | 65 - 99 mg/dL | [facility] | | | POC | performed at [facility];[address] | | LABORATORY | | | | [address];[place], [place] | | | | | | [address] | | | | + + + + + + + + | Specimen | + + | | + + + + + + + | Performing | Address | City/State/Zipcode | Phone Number | | Organization | | | | + + + + + | [facility] | [address] | [place] [address] | [phone] | + + + + + ECHO [...] | | | POC | performed at [facility];[address] | | LABORATORY | | | | [address];[place] | | | | | | [address] | | | | + + + + + + + + | Specimen | + + | | + + + + + + + | Performing | Address | City/State/Zipcode | Phone Number | | Organization | | | | + + + + + | [facility] | [address] | [place] [address] | [phone] | + + + + + POC Glucose (02/21/2019 8:10 AM PDT) + + + + + + | Component | Value | Ref Range | Performed | Pathologist | | | | | At | Signature | + + + + + + | Glucose, | 205 (H)Comment: Testing | 65 - 99 mg/dL | [facility] | | | POC | performed at [facility];[address] | | LABORATORY | | | | [address];[place] | | | | | | [address] | | | | + + + + + + + + | Specimen | + + | | + + + + + + + | Performing | Address | City/State/Zipcode | Phone Number | | Organization | | | | + + + + + | [facility] | [address] | [place] [address] | [phone] | + + + + + Magnesium (02/21/2019 5:46 AM PDT) + + + + + + | Component | Value | Ref Range | Performed | Pathologist | | | | | At | Signature | + + + + + + | Magnesium | 2.0Comment: Testing | 1.7 - 2.4 mg/dL | [facility] | | | | performed at [address], [address] | | LABORATORY | | | | [address], | | | | | | [place] [address] | | | | + + + + + + + + | Specimen | + + | Blood | + + + + + + + | Performing | Address | City/State/Zipcode | Phone Number | | Organization | | | | + + + + + | [facility] | [address] | [place] [address] | [phone] | + + + + + Basic [...] | | | | | performed at [facility], [address] | | | | | | [facility], | | | | | | [place] [address] | | | | + + + + + + + + | Specimen | + + | Blood | + + + + + + + | Performing | Address | City/State/Zipcode | Phone Number | | Organization | | | | + + + + + | [facility] | [address] | [place] [address] | [phone] | + + + + + CBC [...] | | | Absolute | performed at [facility], [address] | K/uL | LABORATORY | | | | [address], | | | | | | [place] [address] | | | | + + + + + + + + | Specimen | + + | Blood | + + + + + + + | Performing | Address | City/State/Zipcode | Phone Number | | Organization | | | | + + + + + | [facility] | [address] | [place] [address] | [phone] | + + + + + POC Glucose (02/20/2019 9:21 PM PDT) + + + + + + | Component | Value | Ref Range | Performed | Pathologist | | | | | At | Signature | + + + + + + | Glucose, | 176 (H)Comment: Testing | 65 - 99 mg/dL | [facility] | | | POC | performed at [facility];[address] | | LABORATORY | | | | [address];[place] | | | | | | [address] | | | | + + + + + + + + | Specimen | + + | | + + + + + + + | Performing | Address | City/State/Zipcode | Phone Number | | Organization | | | | + + + + + | [facility] | [address] | [place] [address] | [phone] | + + + + + POC [...] | | | POC | performed at [facility];[address] | | LABORATORY | | | | [address];[place] | | | | | | [address] | | | | + + + + + + + + | Specimen | + + | | + + + + + + + | Performing | Address | City/State/Zipcode | Phone Number | | Organization | | | | + + + + + | [facility] | [address] | [place] [address] | [phone] | + + + + + POC [...] | | | POC | performed at [facility];[address] | | LABORATORY | | | | [address];[place], [place] | | | | | | [address] | | | | + + + + + + + + | Specimen | + + | | + + + + + + + | Performing | Address | City/State/Zipcode | Phone Number | | Organization | | | | + + + + + | [facility] | [address] [facility] | [place] [address] | [phone] | + + + + + POC [...] | | | POC | performed at [facility];[address] | | LABORATORY | | | | [address];[place], [place] | | | | | | [address] | | | | + + + + + + + + | Specimen | + + | | + + + + + + + | Performing | Address | City/State/Zipcode | Phone Number | | Organization | | | | + + + + + | [facility] | [address] | [place] [address] | [phone] | + + + + + POC Glucose (02/20/2019 8:38 AM PDT) + + + + + + | Component | Value | Ref Range | Performed | Pathologist | | | | | At | Signature | + + + + + + | Glucose, | 165 (H)Comment: Testing | 65 - 99 mg/dL | [facility] | | | POC | performed at [facility];[address] | | LABORATORY | | | | [address];[place] | | | | | | [address] | | | | + + + + + + + + | Specimen | + + | | + + + + + + + | Performing | Address | City/State/Zipcode | Phone Number | | Organization | | | | + + + + + | [facility] | [address] | [place] [address] | [phone] | + + + + + XR [...] | | | | | [place] [address] | | | | + + + + + + + + | Specimen | + + | Blood | + + + + + + + | Performing | Address | City/State/Zipcode | Phone Number | | Organization | | | | + + + + + | [facility] | [address] | [place] [address] | [phone] | + + + + + CBC [...] | | | Absolute | performed at [facility], [address] | K/uL | LABORATORY | | | | [address], | | | | | | [place] [address] | | | | + + + + + + + + | Specimen | + + | Blood | + + + + + + + | Performing | Address | City/State/Zipcode | Phone Number | | Organization | | | | + + + + + | [facility] | [address] | [place] [address] | [phone] | + + + + + Basic [...] | | | | | | MDRD [facility] traceable | | | | | | equation.Testing | | | | | | performed at [facility], [address] | | | | | | [address] [facility], | | | | | | [place] [address] | | | | + + + + + + + + | Specimen | + + | Blood | + + + + + + + | Performing | Address | City/State/Zipcode | Phone Number | | Organization | | | | + + + + + | [facility] | [address] | [place] [address] | [phone] | + + + + + POC [...] | | | POC | performed at [facility];[address] | | LABORATORY | | | | [address];[place] | | | | | | [address] | | | | + + + + + + + + | Specimen | + + | | + + + + + + + | Performing | Address | City/State/Zipcode | Phone Number | | Organization | | | | + + + + + | [facility] | [address] | [place] [address] | [phone] | + + + + + POC Glucose (02/19/2019 5:24 PM PDT) + + + + + + | Component | Value | Ref Range | Performed | Pathologist | | | | | At | Signature | + + + + + + | Glucose, | 146 (H)Comment: Testing | 65 - 99 mg/dL | [facility] | | | POC | performed at [facility];[address] | | LABORATORY | | | | [address];[place] | | | | | | [address] | | | | + + + + + + + + | Specimen | + + | | + + + + + + + | Performing | Address | City/State/Zipcode | Phone Number | | Organization | | | | + + + + + | [facility] | [address] | [place] [address] | [phone] | + + + + + POC [...] | | | POC | performed at [facility];[address] | | LABORATORY | | | | [address];[place], [place] | | | | | | [address] | | | | + + + + + + + + | Specimen | + + | | + + + + + + + | Performing | Address | City/State/Zipcode | Phone Number | | Organization | | | | + + + + + | [facility] | [address] | [place] [address] | [phone] | + + + + + POC [...] | | | POC | performed at [facility];[address] | | LABORATORY | | | | [address];[place], [place] | | | | | | [address] | | | | + + + + + + + + | Specimen | + + | | + + + + + + + | Performing | Address | City/State/Zipcode | Phone Number | | Organization | | | | + + + + + | [facility] | [address] | [place] [address] | [phone] | + + + + + XR [...] Testing | 1.7 - 2.4 mg/dL | [facility] | | | | performed at [facility], [address] | | LABORATORY | | | | [address], | | | | | | [place] [address] | | | | + + + + + + + + | Specimen | + + | Blood | + + + + + + + | Performing | Address | City/State/Zipcode | Phone Number | | Organization | | | | + + + + + | [facility] | [address] | [place] [address] | [phone] | + + + + + CBC [...] | | | Absolute | performed at [facility], [address] | K/uL | LABORATORY | | | | [address], | | | | | | [place] [address] | | | | + + + + + + + + | Specimen | + + | Blood | + + + + + + + | Performing | Address | City/State/Zipcode | Phone Number | | Organization | | | | + + + + + | [facility] | [address] | [place] [address] | [phone] | + + + + + Basic [...] 35 (L)Comment: GFR <60: | >60 | [facility] | | | GFR | CHRONIC [...] | | | | | performed at [facility], [address] | | | | | | [facility], | | | | | | [place] [address] | | | | + + + + + + + + | Specimen | + + | Blood | + + + + + + + | Performing | Address | City/State/Zipcode | Phone Number | | Organization | | | | + + + + + | [facility] | [address] | [place] [address] | [phone] | + + + + + POC Glucose (02/18/2019 9:30 PM PDT) + + + + + + | Component | Value | Ref Range | Performed | Pathologist | | | | | At | Signature | + + + + + + | Glucose, | 107 (H)Comment: Testing | 65 - 99 mg/dL | [facility] | | | POC | performed at [facility];[address] | | LABORATORY | | | | [address];[place] | | | | | | [address] | | | | + + + + + + + + | Specimen | + + | | + + + + + + + | Performing | Address | City/State/Zipcode | Phone Number | | Organization | | | | + + + + + | [facility] | [address] | [place] [address] | [phone] | + + + + + POC [...] | | | POC | performed at [facility];[address] | | LABORATORY | | | | [address];[place] | | | | | | [address] | | | | + + + + + + + + | Specimen | + + | | + + + + + + + | Performing | Address | City/State/Zipcode | Phone Number | | Organization | | | | + + + + + | [facility] | [address] [facility] | [place] [address] | [phone] | + + + + + POC [...] | | | POC | performed at [facility];[address] | | LABORATORY | | | | [address];[place] | | | | | | [address] | | | | + + + + + + + + | Specimen | + + | | + + + + + + + | Performing | Address | City/State/Zipcode | Phone Number | | Organization | | | | + + + + + | [facility] | [address] | [place] [address] | [phone] | + + + + + POC Glucose (02/18/2019 8:37 AM PDT) + + + + + + | Component | Value | Ref Range | Performed | Pathologist | | | | | At | Signature | + + + + + + | Glucose, | 89Comment: Testing | 65 - 99 mg/dL | [facility] | | | POC | performed at [facility];[address] | | LABORATORY | | | | [address];[place] | | | | | | [address] | | | | + + + + + + + + | Specimen | + + | | + + + + + + + | Performing | Address | City/State/Zipcode | Phone Number | | Organization | | | | + + + + + | [facility] | [address] | [place] [address] | [phone] | + + + + + XR [...] Testing | 1.7 - 2.4 mg/dL | [facility] | | | | performed at [facility], [address] | | LABORATORY | | | | [address], | | | | | | [place] [address] | | | | + + + + + + + + | Specimen | + + | Blood | + + + + + + + | Performing | Address | City/State/Zipcode | Phone Number | | Organization | | | | + + + + + | [facility] | [address] | [place] [address] | [phone] | + + + + + CBC [...] | | | Absolute | performed at [facility], [address] | K/uL | LABORATORY | | | | [address], | | | | | | [place] [address] | | | | + + + + + + + + | Specimen | + + | Blood | + + + + + + + | Performing | Address | City/State/Zipcode | Phone Number | | Organization | | | | + + + + + | [facility] | [address] | [place] [address] | [phone] | + + + + + Basic [...] 26 (L)Comment: GFR <60: | >60 | [facility] | | | GFR | CHRONIC [...] | | | | | | MDRD [facility] traceable | | | | | | equation.Testing | | | | | | performed at [facility], [address] | | | | | | [facility], | | | | | | [place] [address] | | | | + + + + + + + + | Specimen | + + | Blood | + + + + + + + | Performing | Address | City/State/Zipcode | Phone Number | | Organization | | | | + + + + + | [facility] | [address] | [place] [address] | [phone] | + + + + + POC [...] | | | POC | performed at [facility];[address] | | LABORATORY | | | | [address];[place], [place] | | | | | | [address] | | | | + + + + + + + + | Specimen | + + | | + + + + + + + | Performing | Address | City/State/Zipcode | Phone Number | | Organization | | | | + + + + + | [facility] | [address] | [place] [address] | [phone] | + + + + + POC [...] | | | POC | performed at [facility];[address] | | LABORATORY | | | | [address];[place], [place] | | | | | | [address] | | | | + + + + + + + + | Specimen | + + | | + + + + + + + | Performing | Address | City/State/Zipcode | Phone Number | | Organization | | | | + + + + + | [facility] | [address] | [place] [address] | [phone] | + + + + + POC Glucose (02/17/2019 1:25 PM PDT) + + + + + + | Component | Value | Ref Range | Performed | Pathologist | | | | | At | Signature | + + + + + + | Glucose, | 139 (H)Comment: Testing | 65 - 99 mg/dL | [facility] | | | POC | performed at [facility];[address] | | LABORATORY | | | | [address];[place] | | | | | | [address] | | | | + + + + + + + + | Specimen | + + | | + + + + + + + | Performing | Address | City/State/Zipcode | Phone Number | | Organization | | | | + + + + + | [facility] | [address] | [place] [address] | [phone] | + + + + + POC Glucose (02/17/2019 9:42 AM PDT) + + + + + + | Component | Value | Ref Range | Performed | Pathologist | | | | | At | Signature | + + + + + + | Glucose, | 99Comment: Testing | 65 - 99 mg/dL | [facility] | | | POC | performed at [facility];[address] | | LABORATORY | | | | [address];[place] | | | | | | [address] | | | | + + + + + + + + | Specimen | + + | | + + + + + + + | Performing | Address | City/State/Zipcode | Phone Number | | Organization | | | | + + + + + | [facility] | [address] | [place] [address] | [phone] | + + + + + Magnesium (02/17/2019 4:44 AM PDT) + + + + + + | Component | Value | Ref Range | Performed | Pathologist | | | | | At | Signature | + + + + + + | Magnesium | 2.8 (H)Comment: Testing | 1.7 - 2.4 mg/dL | [facility] | | | | performed at [facility], [address] | | LABORATORY | | | | [address], | | | | | | [place] [address] | | | | + + + + + + + + | Specimen | + + | Blood | + + + + + + + | Performing | Address | City/State/Zipcode | Phone Number | | Organization | | | | + + + + + | [facility] | [address] | [place] [address] | [phone] | + + + + + CBC [...] | | | | | [place] [address] | | | | + + + + + + + + | Specimen | + + | Blood | + + + + + + + | Performing | Address | City/State/Zipcode | Phone Number | | Organization | | | | + + + + + | [facility] | [address] | [place] [address] | [phone] | + + + + + Basic [...] | | | | | performed at [facility], [address] | | | | | | [facility], | | | | | | [place] [address] | | | | + + + + + + + + | Specimen | + + | Blood | + + + + + + + | Performing | Address | City/State/Zipcode | Phone Number | | Organization | | | | + + + + + | [facility] | [address] | [place] [address] | [phone] | + + + + + XR [...] | | | POC | performed at [facility];[address] | | LABORATORY | | | | [address];[place] | | | | | | [address] | | | | + + + + + + + + | Specimen | + + | | + + + + + + + | Performing | Address | City/State/Zipcode | Phone Number | | Organization | | | | + + + + + | [facility] | [address] | [place] [address] | [phone] | + + + + + POC Glucose (02/16/2019 5:41 PM PDT) + + + + + + | Component | Value | Ref Range | Performed | Pathologist | | | | | At | Signature | + + + + + + | Glucose, | 227 (H)Comment: Testing | 65 - 99 mg/dL | [facility] | | | POC | performed at [facility];[address] | | LABORATORY | | | | [address];[place], [place] | | | | | | [address] | | | | + + + + + + + + | Specimen | + + | | + + + + + + + | Performing | Address | City/State/Zipcode | Phone Number | | Organization | | | | + + + + + | [facility] | [address] | [place] [address] | [phone] | + + + + + POC [...] | | | POC | performed at [facility];[address] | | LABORATORY | | | | [address];[place] | | | | | | [address] | | | | + + + + + + + + | Specimen | + + | | + + + + + + + | Performing | Address | City/State/Zipcode | Phone Number | | Organization | | | | + + + + + | [facility] | [address] | [place] [address] | [phone] | + + + + + Potassium (02/16/2019 12:45 PM PDT) + + + + + + | Component | Value | Ref Range | Performed | Pathologist | | | | | At | Signature | + + + + + + | K | 5.6 (H)Comment: Testing | 3.5 - 4.9 | [facility] | | | | performed at [facility];[address] | mmol/L | LABORATORY | | | | [address];[place] | | | | | | [address] | | | | + + + + + + + + | Specimen | + + | Blood | + + + + + + + | Performing | Address | City/State/Zipcode | Phone Number | | Organization | | | | + + + + + | [facility] | [address] | [place] [address] | [phone] | + + + + + POC Glucose (02/16/2019 11:21 AM PDT) + + + + + + | Component | Value | Ref Range | Performed | Pathologist | | | | | At | Signature | + + + + + + | Glucose, | 155 (H)Comment: Testing | 65 - 99 mg/dL | [facility] | | | POC | performed at [facility];888 | | LABORATORY | | | | [address];[place], [place] | | | | | | [address] | | | | + + + + + + + + | Specimen | + + | | + + + + + + + | Performing | Address | City/State/Zipcode | Phone Number | | Organization | | | | + + + + + | [facility] | [address] | [place] [address] | [phone] | + + + + + POC Glucose (02/16/2019 9:25 AM PDT) + + + + + + | Component | Value | Ref Range | Performed | Pathologist | | | | | At | Signature | + + + + + + | Glucose, | 88Comment: Testing | 65 - 99 mg/dL | [facility] | | | POC | performed at [facility];888 | | LABORATORY | | | | [address];[place] | | | | | | [address] | | | | + + + + + + + + | Specimen | + + | | + + + + + + + | Performing | Address | City/State/Zipcode | Phone Number | | Organization | | | | + + + + + | [facility] | [address] | [place] [address] | [phone] | + + + + + POC Glucose (02/16/2019 8:44 AM PDT) + + + + + + | Component | Value | Ref Range | Performed | Pathologist | | | | | At | Signature | + + + + + + | Glucose, | 80Comment: Testing | 65 - 99 mg/dL | [facility] | | | POC | performed at [facility];[address] | | LABORATORY | | | | [address];[place] | | | | | | [address] | | | | + + + + + + + + | Specimen | + + | | + + + + + + + | Performing | Address | City/State/Zipcode | Phone Number | | Organization | | | | + + + + + | [facility] | [address] | [place] [address] | [phone] | + + + + + POC Glucose (02/16/2019 6:40 AM PDT) + + + + + + | Component | Value | Ref Range | Performed | Pathologist | | | | | At | Signature | + + + + + + | Glucose, | 108 (H)Comment: Testing | 65 - 99 mg/dL | [facility] | | | POC | performed at [facility];888 | | LABORATORY | | | | [address];[place] | | | | | | [address] | | | | + + + + + + + + | Specimen | + + | | + + + + + + + | Performing | Address | City/State/Zipcode | Phone Number | | Organization | | | | + + + + + | [facility] | [address] | [place] [address] | [phone] | + + + + + POC [...] | | | POC | performed at [facility];[address] | | LABORATORY | | | | [address];[place], [place] | | | | | | [address] | | | | + + + + + + + + | Specimen | + + | | + + + + + + + | Performing | Address | City/State/Zipcode | Phone Number | | Organization | | | | + + + + + | [facility] | [address] | [place] [address] | [phone] | + + + + + XR [...] Testing | 1.7 - 2.4 mg/dL | [facility] | | | | performed at [facility] | | LABORATORY | | | | [address];[place], [place] | | | | | | [address] | | | | + + + + + + + + | Specimen | + + | Blood | + + + + + + + | Performing | Address | City/State/Zipcode | Phone Number | | Organization | | | | + + + + + | [facility] | [address] | [place] [address] | [phone] | + + + + + CBC [...] | | | Absolute | performed at [facility], [address] | LABORATORY | | | | [address], | | | | | | [place] [address] | | | | + + + + + + + + | Specimen | + + | Blood | + + + + + + + | Performing | Address | City/State/Zipcode | Phone Number | | Organization | | | | + + + + + | [facility] | [address] | [place] [address] | [phone] | + + + + + Basic [...] 32 (L)Comment: GFR <60: | >60 | [facility] | | | GFR | CHRONIC [...] | | | | | performed at [facility];[address] | | | | | | [facility];[place], [place] | | | | | | [address] | | | | + + + + + + + + | Specimen | + + | Blood | + + + + + + + | Performing | Address | City/State/Zipcode | Phone Number | | Organization | | | | + + + + + | [facility] | [address] | [place] [address] | [phone] | + + + + + POC Glucose (02/16/2019 4:30 AM PDT) + + + + + + | Component | Value | Ref Range | Performed | Pathologist | | | | | At | Signature | + + + + + + | Glucose, | 121 (H)Comment: Testing | 65 - 99 mg/dL | [facility] | | | POC | performed at [facility];[address] | | LABORATORY | | | | [address];[place] | | | | | | [address] | | | | + + + + + + + + | Specimen | + + | | + + + + + + + | Performing | Address | City/State/Zipcode | Phone Number | | Organization | | | | + + + + + | [facility] | [address] | [place] [address] | [phone] | + + + + + POC [...] | | | POC | performed at [facility];[address] | | LABORATORY | | | | [address];[place], [place] | | | | | | [address] | | | | + + + + + + + + | Specimen | + + | | + + + + + + + | Performing | Address | City/State/Zipcode | Phone Number | | Organization | | | | + + + + + | [facility] | [address] | [place] [address] | [phone] | + + + + + POC [...] | | | POC | performed at [facility];[address] | | LABORATORY | | | | [address];[place] | | | | | | [address] | | | | + + + + + + + + | Specimen | + + | | + + + + + + + | Performing | Address | City/State/Zipcode | Phone Number | | Organization | | | | + + + + + | [facility] | [address] | [place] [address] | [phone] | + + + + + Potassium (02/15/2019 11:39 PM PDT) + + + + + + | Component | Value | Ref Range | Performed | Pathologist | | | | | At | Signature | + + + + + + | K | 4.6Comment: Testing | 3.5 - 4.9 | [facility] | | | | performed at [facility];888 | mmol/L | LABORATORY | | | | [address];[place] | | | | | | [address] | | | | + + + + + + + + | Specimen | + + | Blood | + + + + + + + | Performing | Address | City/State/Zipcode | Phone Number | | Organization | | | | + + + + + | [facility] | [address] | [place] [address] | [phone] | + + + + + Blood [...] | | | Arterial, | performed at [facility];888 | | LABORATORY | | | POC | [address];[place] | | | | | | [address] | | | | + + + + + + + + | Specimen | + + | | + + + + + + + | Performing | Address | City/State/Zipcode | Phone Number | | Organization | | | | + + + + + | [facility] | [address] | [place] [address] | [phone] | + + + + + POC Glucose (02/15/2019 11:28 PM PDT) + + + + + + | Component | Value | Ref Range | Performed | Pathologist | | | | | At | Signature | + + + + + + | Glucose, | 131 (H)Comment: Testing | 65 - 99 mg/dL | [facility] | | | POC | performed at [facility];[address] | | LABORATORY | | | | [address];[place] | | | | | | [address] | | | | + + + + + + + + | Specimen | + + | | + + + + + + + | Performing | Address | City/State/Zipcode | Phone Number | | Organization | | | | + + + + + | [facility] | [address] | [place] [address] | [phone] | + + + + + POC Glucose (02/15/2019 10:22 PM PDT) + + + + + + | Component | Value | Ref Range | Performed | Pathologist | | | | | At | Signature | + + + + + + | Glucose, | 130 (H)Comment: Testing | 65 - 99 mg/dL | [facility] | | | POC | performed at [facility];[address] | | LABORATORY | | | | [address];[place], [place] | | | | | | [address] | | | | + + + + + + + + | Specimen | + + | | + + + + + + + | Performing | Address | City/State/Zipcode | Phone Number | | Organization | | | | + + + + + | [facility] | [address] | [place] [address] | [phone] | + + + + + POC [...] | | | POC | performed at [facility];[address] | | LABORATORY | | | | [address];[place], [place] | | | | | | [address] | | | | + + + + + + + + | Specimen | + + | | + + + + + + + | Performing | Address | City/State/Zipcode | Phone Number | | Organization | | | | + + + + + | [facility] | [address] | [place] [address] | [phone] | + + + + + POC ISTAT, CG8, Venous (02/15/2019 8:50 PM PDT) + + + + + + | Component | Value | Ref Range | Performed | Pathologist | | | | | At | Signature | + + + + + + | pH, Venous, | 7.338 | 7.310 - 7.410 | [facility] | | | POC | | [...] | | | | | performed at [facility];[address] | | | | | | [address];[place], [place] | | | | | | [address] | | | | + + + + + + + + | Specimen | + + | | + + + + + + + | Performing | Address | City/State/Zipcode | Phone Number | | Organization | | | | + + + + + | [facility] | [address] | [place] [address] | [phone] | + + + + + Blood [...] | | | Arterial, | performed at [facility];[address] | | LABORATORY | | | POC | [facility];[place], [place] | | | | | | [address] | | | | + + + + + + + + | Specimen | + + | | + + + + + + + | Performing | Address | City/State/Zipcode | Phone Number | | Organization | | | | + + + + + | [facility] | [address] | [place] [address] | [phone] | + + + + + Potassium (02/15/2019 8:02 PM PDT) + + + + + + | Component | Value | Ref Range | Performed | Pathologist | | | | | At | Signature | + + + + + + | K | 3.7Comment: Testing | 3.5 - 4.9 | [facility] | | | | performed at [facility];888 | mmol/L | LABORATORY | | | | [address];[place], [place] | | | | | | [address] | | | | + + + + + + + + | Specimen | + + | Blood | + + + + + + + | Performing | Address | City/State/Zipcode | Phone Number | | Organization | | | | + + + + + | [facility] | [address] | [place] [address] | [phone] | + + + + + POC Glucose (02/15/2019 6:47 PM PDT) + + + + + + | Component | Value | Ref Range | Performed | Pathologist | | | | | At | Signature | + + + + + + | Glucose, | 91Comment: Testing | 65 - 99 mg/dL | [facility] | | | POC | performed at [facility];[address] | | LABORATORY | | | | [address];[place] | | | | | | [address] | | | | + + + + + + + + | Specimen | + + | | + + + + + + + | Performing | Address | City/State/Zipcode | Phone Number | | Organization | | | | + + + + + | [facility] | [address] | [place] [address] | [phone] | + + + + + Blood [...] | | | Arterial, | performed at [facility];888 | | LABORATORY | | | POC | [address];[place] | | | | | | [address] | | | | + + + + + + + + | Specimen | + + | | + + + + + + + | Performing | Address | City/State/Zipcode | Phone Number | | Organization | | | | + + + + + | [facility] | [address] | [place] [address] | [phone] | + + + + + Blood [...] | | | Arterial, | performed at [facility];[address] | | LABORATORY | | | POC | [address];[place], [place] | | | | | | [address] | | | | + + + + + + + + | Specimen | + + | | + + + + + + + | Performing | Address | City/State/Zipcode | Phone Number | | Organization | | | | + + + + + | [facility] | [address] | [place] [address] | [phone] | + + + + + POC [...] | | | POC | performed at [facility];[address] | | LABORATORY | | | | [address];[place] | | | | | | [address] | | | | + + + + + + + + | Specimen | + + | | + + + + + + + | Performing | Address | City/State/Zipcode | Phone Number | | Organization | | | | + + + + + | [facility] | [address] | [place] [address] | [phone] | + + + + + Blood [...] | | | Arterial, | performed at [facility];888 | | LABORATORY | | | POC | [address];[place] | | | | | | [address] | | | | + + + + + + + + | Specimen | + + | | + + + + + + + | Performing | Address | City/State/Zipcode | Phone Number | | Organization | | | | + + + + + | [facility] | [address] | [place] [address] | [phone] | + + + + + Potassium (02/15/2019 4:03 PM PDT) + + + + + + | Component | Value | Ref Range | Performed | Pathologist | | | | | At | Signature | + + + + + + | K | 3.9Comment: Testing | 3.5 - 4.9 | [facility] | | | | performed at [facility];888 | mmol/L | LABORATORY | | | | [address];[place], [place] | | | | | | [address] | | | | + + + + + + + + | Specimen | + + | Blood | + + + + + + + | Performing | Address | City/State/Zipcode | Phone Number | | Organization | | | | + + + + + | [facility] | [address] | [place] [address] | [phone] | + + + + + POC [...] | | | POC | performed at [facility];[address] | | LABORATORY | | | | [facility];[place], [place] | | | | | | [address] | | | | + + + + + + + + | Specimen | + + | | + + + + + + + | Performing | Address | City/State/Zipcode | Phone Number | | Organization | | | | + + + + + | [facility] | [address] | [place] [address] | [phone] | + + + + + Blood [...] | | | Arterial, | performed at [facility];[address] | | LABORATORY | | | POC | [address];[place] | | | | | | [address] | | | | + + + + + + + + | Specimen | + + | | + + + + + + + | Performing | Address | City/State/Zipcode | Phone Number | | Organization | | | | + + + + + | [facility] | [address] | [place] [address] | [phone] | + + + + + POC [...] | | | POC | performed at [facility];[address] | | LABORATORY | | | | [address];[place] | | | | | | [address] | | | | + + + + + + + + | Specimen | + + | | + + + + + + + | Performing | Address | City/State/Zipcode | Phone Number | | Organization | | | | + + + + + | [facility] | [address] | [place] [address] | [phone] | + + + + + Calcium, [...] [facility] | | | | performed at [facility];8 | | LABORATORY | | | | [address];[place], [place] | | | | | | [address] | | | | + + + + + + + + | Specimen | + + | Blood | + + + + + + + | Performing | Address | City/State/Zipcode | Phone Number | | Organization | | | | + + + + + | [facility] | [address] | [place] [address] | [phone] | + + + + + PTT (02/15/2019 1:45 PM PDT) + + + + + + | Component | Value | Ref Range | Performed | Pathologist | | | | | At | Signature | + + + + + + | PTT | 26Comment: Testing | 23 - 32 seconds | [facility] | | | | performed at [facility];[address] | | LABORATORY | | | | [address];[place] | | | | | | [address] | | | | + + + + + + + + | Specimen | + + | Blood | + + + + + + + | Performing | Address | City/State/Zipcode | Phone Number | | Organization | | | | + + + + + | [facility] | [address] | [place] [address] | [phone] | + + + + + Protime [...] | | | | | performed at [facility];888 | | | | | | [address];[place] | | | | | | [address] | | | | + + + + + + + + | Specimen | + + | Blood | + + + + + + + | Performing | Address | City/State/Zipcode | Phone Number | | Organization | | | | + + + + + | [facility] | [address] | [place] [address] | [phone] | + + + + + Magnesium (02/15/2019 1:45 PM PDT) + + + + + + | Component | Value | Ref Range | Performed | Pathologist | | | | | At | Signature | + + + + + + | Magnesium | 3.0 (H)Comment: Testing | 1.7 - 2.4 mg/dL | [facility] | | | | performed at [facility];[address] | | LABORATORY | | | | [address];[place] | | | | | | [address] | | | | + + + + + + + + | Specimen | + + | Blood | + + + + + + + | Performing | Address | City/State/Zipcode | Phone Number | | Organization | | | | + + + + + | [facility] | [address] | [place] [address] | [phone] | + + + + + Hemoglobin A1C (02/15/2019 1:45 PM PDT) + + + + + + | Component | Value | Ref Range | Performed | Pathologist | | | | | At | Signature | + + + + + + | Hemoglobin | 7.4 (H)Comment: HbA1c | 4.0 - 6.0 % | [facility] | | | A1c | method [...] | 166 (H)Comment: | <154 mg/dL | [facility] | | | Average | Estimated Average | | LABORATORY | | | Glucose | Glucose calculated from | | | | | | hemoglobin A1c by use of | | | | | | the ADArecommended | | | | | | formula.Testing | | | | | | performed at [facility], [address] | | | | | | [facility], | | | | | | [place] [address] | | | | + + + + + + + + | Specimen | + + | Blood | + + + + + + + | Performing | Address | City/State/Zipcode | Phone Number | | Organization | | | | + + + + + | [facility] | [address] | [place] [address] | [phone] | + + + + + Fibrinogen (02/15/2019 1:45 PM PDT) + + + + + + | Component | Value | Ref Range | Performed | Pathologist | | | | | At | Signature | + + + + + + | Fibrinogen | 434Comment: Testing | 200 - 450 mg/dL | [facility] | | | | performed at [facility];[address] | | LABORATORY | | | | [address];[place] | | | | | | [address] | | | | + + + + + + + + | Specimen | + + | Blood | + + + + + + + | Performing | Address | City/State/Zipcode | Phone Number | | Organization | | | | + + + + + | [facility] | [address] | [place] [address] | [phone] | + + + + + CBC [...] Comment | SLIDE SCANNED, AGREES | | [facility] | | | | WITH AUTOMATED | | LABORATORY | | | | RESULTS.Comment: Testing | | | | | | performed at [facility];[address] | | | | | | [facility];[place] | | | | | | [address] | | | | + + + + + + + + | Specimen | + + | Blood | + + + + + + + | Performing | Address | City/State/Zipcode | Phone Number | | Organization | | | | + + + + + | [facility] | [address] | [place] [address] | [phone] | + + + + + Basic [...] | | | | | performed at [facility];[address] | | | | | | [address];[place], [place] | | | | | | [address] | | | | + + + + + + + + | Specimen | + + | Blood | + + + + + + + | Performing | Address | City/State/Zipcode | Phone Number | | Organization | | | | + + + + + | [facility] | [address] | [place] [address] | [phone] | + + + + + POC [...] | | | POC | performed at [facility];888 | g/dL | LABORATORY | | | | [address];[place], [place] | | | | | | [address] | | | | + + + + + + + + | Specimen | + + | | + + + + + + + | Performing | Address | City/State/Zipcode | Phone Number | | Organization | | | | + + + + + | [facility] | [address] | [place] [address] | [phone] | + + + + + XR [...] | projects 4.1 cm above the fransico. [place] catheter tip appears to | | | [...] 4.1 cm | | above the fransico. [place] catheter tip appears to project at the [...] | | | Arterial, | performed at [facility];[address] | | LABORATORY | | | POC | [address];[place], [place] | | | | | | [address] | | | | + + + + + + + + | Specimen | + + | | + + + + + + + | Performing | Address | City/State/Zipcode | Phone Number | | Organization | | | | + + + + + | [facility] | [address] | [place] [address] | [phone] | + + + + + POC [...] | | | POC | performed at [facility];[address] | | LABORATORY | | | | [address];[place], [place] | | | | | | [address] | | | | + + + + + + + + | Specimen | + + | | + + + + + + + | Performing | Address | City/State/Zipcode | Phone Number | | Organization | | | | + + + + + | [facility] | [address] | [place] [address] | [phone] | + + + + + ECG [...] | | | Arterial, | performed at [facility];[address] | | LABORATORY | | | POC | [address];[place] | | | | | | [address] | | | | + + + + + + + + | Specimen | + + | | + + + + + + + | Performing | Address | City/State/Zipcode | Phone Number | | Organization | | | | + + + + + | [facility] | [address] | [place] [address] | [phone] | + + + + + POC [...] | | | POC | performed at [facility];888 | g/dL | LABORATORY | | | | [address];[place], [place] | | | | | | [address] | | | | + + + + + + + + | Specimen | + + | | + + + + + + + | Performing | Address | City/State/Zipcode | Phone Number | | Organization | | | | + + + + + | [facility] | [address] [facility] | [place] [address] | [phone] | + + + + + POC [...] Testing | 95 - 98 % | [facility] | | | Arterial, | performed at [facility];[address] | | LABORATORY | | | POC | [address];[place], [place] | | | | | | [address] | | | | + + + + + + + + | Specimen | + + | | + + + + + + + | Performing | Address | City/State/Zipcode | Phone Number | | Organization | | | | + + + + + | [facility] | [address] | [place] [address] | [phone] | + + + + + POC [...] | | | POC | performed at [facility];888 | g/dL | LABORATORY | | | | [address];[place], [place] | | | | | | [address] | | | | + + + + + + + + | Specimen | + + | | + + + + + + + | Performing | Address | City/State/Zipcode | Phone Number | | Organization | | | | + + + + + | [facility] | [address] | [place] [address] | [phone] | + + + + + POC [...] | | | POC | performed at [facility];888 | g/dL | LABORATORY | | | | [address];[place], [place] | | | | | | [address] | | | | + + + + + + + + | Specimen | + + | | + + + + + + + | Performing | Address | City/State/Zipcode | Phone Number | | Organization | | | | + + + + + | [facility] | [address] | [place] [address] | [phone] | + + + + + POC CG 4, ISTAT Arterial (02/15/2019 10:59 AM PDT) + + + + + + | Component | Value | Ref Range | Performed | Pathologist | | | | | At | Signature | + + + + + + | pH, | 7.310 (L) | 7.350 - 7.450 | [facility] | | | Arterial, | | [...] | | | Arterial, | performed at [facility];888 | | LABORATORY | | | POC | [address];[place], [place] | | | | | | [address] | | | | + + + + + + + + | Specimen | + + | | + + + + + + + | Performing | Address | City/State/Zipcode | Phone Number | | Organization | | | | + + + + + | [facility] | [address] | [place] [address] | [phone] | + + + + + POC ISTAT, [id number], Arterial (02/15/2019 10:52 AM PDT) + + + + + + | Component | Value | Ref Range | Performed | Pathologist | | | | | At | Signature | + + + + + + | pH, | 7.298 (L) | 7.350 - 7.450 | [facility] | | | Arterial, | | [...] | | | POC | performed at [facility];888 | g/dL | LABORATORY | | | | Shiv Huang;[place], [place] | | | | | | [address] | | | | + + + + + + + + | Specimen | + + | | + + + + + + + | Performing | Address | City/State/Zipcode | Phone Number | | Organization | | | | + + + + + | [facility] | [address] | [place] [address] | [phone] | + + + + + POC [...] (L)Comment: Testing | 13.7 - 16.7 | [facility] | | | POC | performed at [facility];888 | g/dL | LABORATORY | | | | Shiv Huang;[place] | | | | | | [address] | | | | + + + + + + + + | Specimen | + + | | + + + + + + + | Performing | Address | City/State/Zipcode | Phone Number | | Organization | | | | + + + + + | [facility] | [address] | [place] [address] | [phone] | + + + + + POC [...] | | | POC | performed at [facility];888 | g/dL | LABORATORY | | | | [address];[place], [place] | | | | | | [address] | | | | + + + + + + + + | Specimen | + + | | + + + + + + + | Performing | Address | City/State/Zipcode | Phone Number | | Organization | | | | + + + + + | [facility] | [address] | [place] [address] | [phone] | + + + + + POC ISTAT, CG8, Arterial (02/15/2019 9:43 AM PDT) + + + + + + | Component | Value | Ref Range | Performed | Pathologist | | | | | At | Signature | + + + + + + | pH, | 7.314 (L) | 7.350 - 7.450 | [facility] | | | Arterial, | | [...] | | | POC | performed at [facility];888 | g/dL | LABORATORY | | | | [address];[place] | | | | | | [address] | | | | + + + + + + + + | Specimen | + + | | + + + + + + + | Performing | Address | City/State/Zipcode | Phone Number | | Organization | | | | + + + + + | [facility] | [address] | [place] [address] | [phone] | + + + + + POC [...] | | | POC | performed at [facility];888 | g/dL | LABORATORY | | | | [address];[place] | | | | | | [address] | | | | + + + + + + + + | Specimen | + + | | + + + + + + + | Performing | Address | City/State/Zipcode | Phone Number | | Organization | | | | + + + + + | [facility] | [address] | [place] [address] | [phone] | + + + + + POC [...] | | | Arterial, | performed at [facility];[address] | | LABORATORY | | | POC | [address];[place], [place] | | | | | | [address] | | | | + + + + + + + + | Specimen | + + | | + + + + + + + | Performing | Address | City/State/Zipcode | Phone Number | | Organization | | | | + + + + + | [facility] | [address] | [place] [address] | [phone] | + + + + + FAM [...] (L)Comment: Testing | 13.7 - 16.7 | [facility] | | | POC | performed at [facility];888 | g/dL | LABORATORY | | | | [address];[place], [place] | | | | | | [address] | | | | + + + + + + + + | Specimen | + + | | + + + + + + + | Performing | Address | City/State/Zipcode | Phone Number | | Organization | | | | + + + + + | [facility] | [address] | [place] [address] | [phone] | + + + + + ECHO [...] | | Name BOB MANCINI Room Number 98928 | | | Patient Number [id number] Date of Study | | | 02/15/2019 Visit Number [id number] Referring | | | Physician LUISANA ALCALA Accession Number [id number] | | | Consumer Loan Officer Date of 1965 Interpreting | | | Physician Ed lEmore Age 53 year(s) | | | Nurse Gender Male Stress | | | Awake Overnight Monitor Procedure Type of Study SHALA procedure:TRANSESOPHAGEAL(SHALA) | [...] Mild | | | MR. Mild AI. Cucf-dg-tvimxxmh TR. Mild PI. Yjiimqrt-fa-jlenti PAH. | | | Bilateral pleural effusions [...] = 54mmHg | | | (consistent with alhbjeqh-mp-mpcspl pulmonary arterial | | | hypertension--reading was consistent with direct PASP measurement via | | | [place] catheter). Pulmonic Valve Peak Velocity: 51.33 cm/s [...] = 54mmHg | | | (consistent with fjudijax-cs-zasuac pulmonary arterial | | | hypertension--reading was consistent with direct PASP measurement via | | | [place] catheter). | | | | | | [...] Demographics Patient Name BOB MANCINI Room Number 10183 | | Patient Number [id number] Date of Study 02/15/2019 Visit Number | | [id number] Referring Physician LUISANA ALCALA Accession Number [id number] | | Consumer Loan Officer Date of 1965 Interpreting Physician Ed Elmore | | Age 53 year(s) Nurse Gender Male Stress | | TechnicianProcedureType of Study SHALA procedure:TRANSESOPHAGEAL(SHALA) - | | PERIOPERATIVE.Procedure DateDate: 02/15/2019 Start: 07:41 AMStudy [facility]: [facility] | | Quality: Adequate visualizationPatient Status: RoutineHeight: 70.87 inches Weight: | | 208.12 pounds BSA: 2.14 m^2 BMI: 29.14 kg/m^2Rhythm: Normal Sinus Rhythm HR: 75 bpm BP: | | 110/70 mmHg Conclusions Summary Severely depressed baseline LV global systolic function | | with multiple RWMAs as documented below. LVEF = 25-30%. Mild MR. Mild AI. | | Bhol-pz-nbcvhdsu TR. Mild PI. Vdpyelww-yg-zbadus PAH. Bilateral pleural effusions | | (drained [...] tricuspid regurgitation. RVSP = 54mmHg (consistent with xatwxkqj-dt-jynbum | | pulmonary arterial hypertension--reading was consistent with direct PASP measurement | | via [place] catheter). Pulmonic Valve Peak Velocity: 51.33 cm/s [...] RVSP = 54mmHg | | (consistent with avjclyyn-bo-gllnxr pulmonary arterial | | hypertension--reading was consistent with direct PASP measurement via | | [place] catheter). | | | | Pulmonic Valve [...] | | | POC | performed at [facility];888 | | LABORATORY | | | | [address];[place] | | | | | | [address] | | | | + + + + + + + + | Specimen | + + | | + + + + + + + | Performing | Address | City/State/Zipcode | Phone Number | | Organization | | | | + + + + + | [facility] | [address] | [place] [address] | [phone] | + + + + + PTT (02/15/2019 5:49 AM PDT) + + + + + + | Component | Value | Ref Range | Performed | Pathologist | | | | | At | Signature | + + + + + + | PTT | 64 (H)Comment: Testing | 23 - 32 seconds | [facility] | | | | performed at [facility];888 | | LABORATORY | | | | [address];[place] | | | | | | [address] | | | | + + + + + + + + | Specimen | + + | | + + + + + + + | Performing | Address | City/State/Zipcode | Phone Number | | Organization | | | | + + + + + | [facility] | [address] | [place] [address] | [phone] | + + + + + Protime [...] | | | | | performed at [facility];88 | | | | | | [address];[place], [place] | | | | | | [address] | | | | + + + + + + + + | Specimen | + + | | + + + + + + + | Performing | Address | City/State/Zipcode | Phone Number | | Organization | | | | + + + + + | [facility] | [address] | [place] [address] | [phone] | + + + + + CBC [...] [facility] | | | | performed at [facility], [address] | | LABORATORY | | | | [address], | | | | | | [place] [address] | | | | + + + + + + + + | Specimen | + + | | + + + + + + + | Performing | Address | City/State/Zipcode | Phone Number | | Organization | | | | + + + + + | [facility] | [address] | [place] [address] | [phone] | + + + + + Renal [...] 37 (L)Comment: GFR <60: | >60 | [facility] | | | GFR | CHRONIC [...] | | | | | | MDRD [facility] traceable | | | | | | equation.Testing | | | | | | performed at [facility], [address] | | | | | | [facility], | | | | | | [place] [address] | | | | + + + + + + + + | Specimen | + + | Blood | + + + + + + + | Performing | Address | City/State/Zipcode | Phone Number | | Organization | | | | + + + + + | [facility] | [address] | [place] [address] | [phone] | + + + + + Red [...] | ORDER RECEIVED IN BLOOD | | [facility] | | | COMMENT | BANK. | | LABORATORY | | + + + + + + | BLOOD BANK | Testing performed at | | [facility] | | | COMMENT | [facility];[address] | LABORATORY | | | | [address];[place] [address] | | | | + + + + + + + + | Specimen | + + | | + + + + + + + | Performing | Address | City/State/Zipcode | Phone Number | | Organization | | | | + + + + + | [facility] | [address] | [place] [address] | [phone] | + + + + + Type [...] + + + | UNIT # | [id number] | | [facility] | | | | [...] + + + | UNIT # | [id number] | | [facility] | | | | [...] + + + | UNIT # | [id number] | | [facility] | | | | [...] | | | RESULT | performed at [facility] | | LABORATORY | | | | [address];[place], [place] | | | | | | [address] | | | | + + + + + + | UNIT # | [id number] | | [facility] | | | | [...] | + + + + + | [facility] | [address] | [place] [address] | [phone] | + + + + + PTT (02/14/2019 11:09 PM PDT) + + + + + + | Component | Value | Ref Range | Performed | Pathologist | | | | | At | Signature | + + + + + + | PTT | 52 (H)Comment: Testing | 23 - 32 seconds | [facility] | | | | performed at [facility];888 | | LABORATORY | | | | [address];[place] | | | | | | [address] | | | | + + + + + + + + | Specimen | + + | Blood | + + + + + + + | Performing | Address | City/State/Zipcode | Phone Number | | Organization | | | | + + + + + | [facility] | [address] | [place] [address] | [phone] | + + + + + Troponin [...] | | | | | performed at [facility];888 | | | | | | [address];[place] | | | | | | [address] | | | | + + + + + + + + | Specimen | + + | Blood | + + + + + + + | Performing | Address | City/State/Zipcode | Phone Number | | Organization | | | | + + + + + | [facility] | [address] | [place] [address] | [phone] | + + + + + XR [...] [facility] | | | | performed at [facility] | | LABORATORY | | | | [address];[place], [place] | | | | | | [address] | | | | + + + + + + + + | Specimen | + + | Tissue - Both | | anterior nares (body | | structure) | + + + + + + + | Performing | Address | City/State/Zipcode | Phone Number | | Organization | | | | + + + + + | [facility] | [address] | [place] [address] | [phone] | + + + + + POC [...] | | | POC | performed at [facility];[address] | | LABORATORY | | | | [address];[place] | | | | | | [address] | | | | + + + + + + + + | Specimen | + + | | + + + + + + + | Performing | Address | City/State/Zipcode | Phone Number | | Organization | | | | + + + + + | [facility] | [address] | [place] [address] | [phone] | + + + + + POC Glucose (02/14/2019 4:44 PM PDT) + + + + + + | Component | Value | Ref Range | Performed | Pathologist | | | | | At | Signature | + + + + + + | Glucose, | 166 (H)Comment: Testing | 65 - 99 mg/dL | [facility] | | | POC | performed at [facility];888 | | LABORATORY | | | | [address];[place] | | | | | | [address] | | | | + + + + + + + + | Specimen | + + | | + + + + + + + | Performing | Address | City/State/Zipcode | Phone Number | | Organization | | | | + + + + + | [facility] | [address] | [place] [address] | [phone] | + + + + + ECG [...] [facility] | | | | performed at [facility];[address] | | LABORATORY | | | | [address];[place] | | | | | | [address] | | | | + + + + + + + + | Specimen | + + | Blood | + + + + + + + | Performing | Address | City/State/Zipcode | Phone Number | | Organization | | | | + + + + + | [facility] | [address] | [place] [address] | [phone] | + + + + + Troponin [...] BENÍTEZ | | | | | | [id number] AT [address] [facility]. | | | | | | Testing performed at | | | | | | [facility];[address] [facility] [facility] | | | | | | Blvd;[place] [address] | | | | + + + + + + + + | Specimen | + + | Blood | + + + + + + + | Performing | Address | City/State/Zipcode | Phone Number | | Organization | | | | + + + + + | [facility] | [address] | [place] [address] | [phone] | + + + + + POC [...] | | | POC | performed at [facility];[address] | | LABORATORY | | | | [address];[place], [place] | | | | | | [address] | | | | + + + + + + + + | Specimen | + + | | + + + + + + + | Performing | Address | City/State/Zipcode | Phone Number | | Organization | | | | + + + + + | [facility] | [address] | [place] [address] | [phone] | + + + + + POC [...] | | | POC | performed at [facility];[address] | | LABORATORY | | | | [address];[place] | | | | | | [address] | | | | + + + + + + + + | Specimen | + + | | + + + + + + + | Performing | Address | City/State/Zipcode | Phone Number | | Organization | | | | + + + + + | [facility] | [address] | [place] [address] | [phone] | + + + + + Troponin I (02/14/2019 7:14 AM PDT) + + + + + + | Component | Value | Ref Range | Performed | Pathologist | | | | | At | Signature | + + + + + + | Troponin I | 12.832 ()Comment: | 0.00 - 0.04 | [facility] | | | | 0.04 ng/mL [...] | | | | BY:CARLA Baxter ON [id number] | | | | | | AT 0758 BY Rima. Testing | | | | | | performed at [facility] | | | | | | [facility];[place], [place] | | | | | | [address] | | | | + + + + + + + + | Specimen | + + | Blood | + + + + + + + | Performing | Address | City/State/Zipcode | Phone Number | | Organization | | | | + + + + + | [facility] | [address] | [place] [address] | [phone] | + + + + + Hemoglobin A1C (02/14/2019 6:11 AM PDT) + + + + + + | Component | Value | Ref Range | Performed | Pathologist | | | | | At | Signature | + + + + + + | Hemoglobin | 7.4 (H)Comment: HbA1c | 4.0 - 6.0 % | [facility] | | | A1c | method [...] | 166 (H)Comment: | <154 mg/dL | [facility] | | | Average | Estimated Average | | LABORATORY | | | Glucose | Glucose calculated from | | | | | | hemoglobin A1c by use of | | | | | | the ADArecommended | | | | | | formula.Testing | | | | | | performed at [facility], [address] | | | | | | [facility], | | | | | | [place] [address] | | | | + + + + + + + + | Specimen | + + | Blood | + + + + + + + | Performing | Address | City/State/Zipcode | Phone Number | | Organization | | | | + + + + + | [facility] | [address] | [place] [address] | [phone] | + + + + + PTT (02/14/2019 6:11 AM PDT) + + + + + + | Component | Value | Ref Range | Performed | Pathologist | | | | | At | Signature | + + + + + + | PTT | 44 (H)Comment: Testing | 23 - 32 seconds | [facility] | | | | performed at [facility];[address] | | LABORATORY | | | | [address];[place], [place] | | | | | | [address] | | | | + + + + + + + + | Specimen | + + | Blood | + + + + + + + | Performing | Address | City/State/Zipcode | Phone Number | | Organization | | | | + + + + + | [facility] | [address] [facility] | [place] [address] | [phone] | + + + + + Renal [...] | | | | | performed at [facility], [address] | | | | | | [address] [facility], | | | | | | [place] [address] | | | | + + + + + + + + | Specimen | + + | Blood | + + + + + + + | Performing | Address | City/State/Zipcode | Phone Number | | Organization | | | | + + + + + | [facility] | [address] [facility] | [place] [address] | [phone] | + + + + + Troponin [...] | | | | | performed at [facility] | | | | | | [address];[place] | | | | | | [address] | | | | + + + + + + + + | Specimen | + + | Blood | + + + + + + + | Performing | Address | City/State/Zipcode | Phone Number | | Organization | | | | + + + + + | [facility] | [address] | [place] [address] | [phone] | + + + + + POC [...] | | | POC | performed at [facility];[address] | | LABORATORY | | | | [address];[place] | | | | | | [address] | | | | + + + + + + + + | Specimen | + + | | + + + + + + + | Performing | Address | City/State/Zipcode | Phone Number | | Organization | | | | + + + + + | [facility] | [address] | [place] [address] | [phone] | + + + + + POC [...] | | | POC | performed at [facility];[address] | | LABORATORY | | | | [address];[place] | | | | | | [address] | | | | + + + + + + + + | Specimen | + + | | + + + + + + + | Performing | Address | City/State/Zipcode | Phone Number | | Organization | | | | + + + + + | [facility] | [address] | [place] [address] | [phone] | + + + + + Troponin [...] 1544 | | | | | | [id number] KAWTesting | | | | | | performed at [facility];[address] | | | | | | [facility];[place], [place] | | | | | | [address] | | | | + + + + + + + + | Specimen | + + | Blood | + + + + + + + | Performing | Address | City/State/Zipcode | Phone Number | | Organization | | | | + + + + + | [facility] | [address] | [place] [address] | [phone] | + + + + + POC Glucose (02/13/2019 11:46 AM PDT) + + + + + + | Component | Value | Ref Range | Performed | Pathologist | | | | | At | Signature | + + + + + + | Glucose, | 185 (H)Comment: Testing | 65 - 99 mg/dL | [facility] | | | POC | performed at [facility];[address] | | LABORATORY | | | | [address];[place] | | | | | | [address] | | | | + + + + + + + + | Specimen | + + | | + + + + + + + | Performing | Address | City/State/Zipcode | Phone Number | | Organization | | | | + + + + + | [facility] | [address] | [place] [address] | [phone] | + + + + + POC Glucose (02/13/2019 8:49 AM PDT) + + + + + + | Component | Value | Ref Range | Performed | Pathologist | | | | | At | Signature | + + + + + + | Glucose, | 145 (H)Comment: Testing | 65 - 99 mg/dL | [facility] | | | POC | performed at [facility];[address] | | LABORATORY | | | | [address];[place] | | | | | | [address] | | | | + + + + + + + + | Specimen | + + | | + + + + + + + | Performing | Address | City/State/Zipcode | Phone Number | | Organization | | | | + + + + + | [facility] | [address] | [place] [address] | [phone] | + + + + + Phosphorus (02/13/2019 7:42 AM PDT) + + + + + + | Component | Value | Ref Range | Performed | Pathologist | | | | | At | Signature | + + + + + + | Phosphorus | 4.1Comment: Testing | 2.3 - 4.8 mg/dL | [facility] | | | | performed at [facility];[address] | | LABORATORY | | | | [address];[place], [place] | | | | | | [address] | | | | + + + + + + + + | Specimen | + + | Blood | + + + + + + + | Performing | Address | City/State/Zipcode | Phone Number | | Organization | | | | + + + + + | [facility] | [address] | [place] [address] | [phone] | + + + + + Troponin I (02/13/2019 7:42 AM PDT) + + + + + + | Component | Value | Ref Range | Performed | Pathologist | | | | | At | Signature | + + + + + + | Troponin I | 16.442 ()Comment: | 0.00 - 0.04 | [facility] | | | | 0.04 ng/mL [...] | | | | | performed at [facility] | | | | | | [facility];[place], [place] | | | | | | [address] | | | | + + + + + + + + | Specimen | + + | Blood | + + + + + + + | Performing | Address | City/State/Zipcode | Phone Number | | Organization | | | | + + + + + | [facility] | [address] | [place] [address] | [phone] | + + + + + CBC [...] | | | Absolute | performed at [facility];[address] | K/uL | LABORATORY | | | | [address];[place] | | | | | | [address] | | | | + + + + + + + + | Specimen | + + | Blood | + + + + + + + | Performing | Address | City/State/Zipcode | Phone Number | | Organization | | | | + + + + + | [facility] | [address] | [place] [address] | [phone] | + + + + + Basic [...] | | | | | performed at [facility];[address] | | | | | | [facility];[place], [place] | | | | | | [address] | | | | + + + + + + + + | Specimen | + + | Blood | + + + + + + + | Performing | Address | City/State/Zipcode | Phone Number | | Organization | | | | + + + + + | [facility] | [address] | [place] [address] | [phone] | + + + + + PTT (02/13/2019 5:09 AM PDT) + + + + + + | Component | Value | Ref Range | Performed | Pathologist | | | | | At | Signature | + + + + + + | PTT | 47 (H)Comment: Testing | 23 - 32 seconds | [facility] | | | | performed at [facility];[address] | | LABORATORY | | | | [address] [facility];[place], [place] | | | | | | [address] | | | | + + + + + + + + | Specimen | + + | Blood | + + + + + + + | Performing | Address | City/State/Zipcode | Phone Number | | Organization | | | | + + + + + | [facility] | [address] | [place] [address] | [phone] | + + + + + Troponin I (02/12/2019 11:04 PM PDT) + + + + + + | Component | Value | Ref Range | Performed | Pathologist | | | | | At | Signature | + + + + + + | Troponin I | 19.769 ()Comment: | 0.00 - 0.04 | [facility] | | | | 0.04 ng/mL [...] | | | | | performed at [facility] | | | | | | [facility];[place], [place] | | | | | | [address] | | | | + + + + + + + + | Specimen | + + | Blood | + + + + + + + | Performing | Address | City/State/Zipcode | Phone Number | | Organization | | | | + + + + + | [facility] | [address] | [place] [address] | [phone] | + + + + + POC [...] | | | POC | performed at [facility];[address] | | LABORATORY | | | | [address];[place] | | | | | | [address] | | | | + + + + + + + + | Specimen | + + | | + + + + + + + | Performing | Address | City/State/Zipcode | Phone Number | | Organization | | | | + + + + + | [facility] | [address] | [place] [address] | [phone] | + + + + + POC [...] | | | POC | performed at [facility];[address] | | LABORATORY | | | | [address];[place] | | | | | | [address] | | | | + + + + + + + + | Specimen | + + | | + + + + + + + | Performing | Address | City/State/Zipcode | Phone Number | | Organization | | | | + + + + + | [facility] | [address] | [place] [address] | [phone] | + + + + + Troponin I (02/12/2019 3:51 PM PDT) + + + + + + | Component | Value | Ref Range | Performed | Pathologist | | | | | At | Signature | + + + + + + | Troponin I | 19.414 ()Comment: | 0.00 - 0.04 | [facility] | | | | 0.04 ng/mL [...] | | | | | performed at [facility];[address] | | | | | | [address];[place] | | | | | | [address] | | | | + + + + + + + + | Specimen | + + | Blood | + + + + + + + | Performing | Address | City/State/Zipcode | Phone Number | | Organization | | | | + + + + + | [facility] | [address] [facility] | [place] [address] | [phone] | + + + + + Protein, [...] LABORATORY | | | | performed at [facility], [address] | | | [address], | | | | | | [place] [address] | | | | + + + + + + + + | Specimen | + + | | + + + + + + + | Performing | Address | City/State/Zipcode | Phone Number | | Organization | | | | + + + + + | [facility] | [address] | [place] [address] | [phone] | + + + + + Protein/Creatinine Ratio, Urine (02/12/2019 3:05 PM PDT) + + + + + + | Component | Value | Ref Range | Performed | Pathologist | | | | | At | Signature | + + + + + + | PRO/CREA | 1.364Comment: Testing | | [facility] | | | RATIO,URINE | performed at [facility], [address] | | LABORATORY | | | | [address], | | | | | | [place] [address] | | | | + + + + + + + + | Specimen | + + | | + + + + + + + | Performing | Address | City/State/Zipcode | Phone Number | | Organization | | | | + + + + + | [facility] | [address] | [place] [address] | [phone] | + + + + + Urinalysis [...] - 1.030 | [facility] | | | [place], | | | LABORATORY | | | [...] | | | CRY[place] | performed at [facility] [place];[address] | | LABORATORY | | | | [address];[place] | | | | | | [id number] | | | | + + + [...] | + + + + + | [facility] | [address] | [place] [address] | [phone] | + + + + + Urea [...] | | | Urine | performed at [facility], [address] | | | | | [address] [facility], | | | | | | [place] [address] | | | | + + + [...] | + + + + + | [facility] | [address] | [place] [address] | [phone] | + + + + + Sodium, Urine, Random (02/12/2019 3:05 PM PDT) + + + + + + | Component | Value | Ref Range | Performed | Pathologist | | | | | At | Signature | + + + + + + | Sodium, | 27Comment: NO NORMAL | mmol/L | [facility] [facility] | | | Random | RANGE ESTABLISHEDTesting | | LABORATORY | | | urine | performed at [facility], [address] | | | | | [address], | | | | | | [place] [address] | | | | + + + [...] | + + + + + | [facility] | [address] | [place] [address] | [phone] | + + + + + Eosinophil [...] LABORATORY | | | | performed at [facility], [address] | | | | | | [address], | | | | | | [place] [address] | | | | + + + [...] | + + + + + | [facility] | [address] | [place] [address] | [phone] | + + + + + Creatinine, Urine, Random (02/12/2019 3:05 PM PDT) + + + + + + | Component | Value | Ref Range | Performed | Pathologist | | | | | At | Signature | + + + + + + | Creatinine, | 253.0Comment: NO NORMAL | mg/dL | [facility] | | | random | RANGE ESTABLISHEDTesting | | LABORATORY | | | urine | performed at [facility], [address] | | | | | | [address], | | | | | | [place] [address] | | | | + + + [...] | + + + + + | [facility] | [address] | [place] [address] | [phone] | + + + + + Chloride, [...] | | | CHLORIDE | performed at [facility], [address] | | | | | | [address] [facility], | | | | | | [place] [address] | | | | + + + [...] | + + + + + | [facility] | [address] | [place] [address] | [phone] | + + + + + POC Glucose (02/12/2019 11:15 AM PDT) + + + + + + | Component | Value | Ref Range | Performed | Pathologist | | | | | At | Signature | + + + + + + | Glucose, | 212 (H)Comment: Testing | 65 - 99 mg/dL | [facility] | | | POC | performed at [facility];[address] | | LABORATORY | | | | [address];[place] | | | | | | [address] | | | | + + + + + + + + | Specimen | + + | | + + + + + + + | Performing | Address | City/State/Zipcode | Phone Number | | Organization | | | | + + + + + | [facility] | [address] | [place] [address] | [phone] | + + + + + ECHO [...] cm/s | [facility] | | | chelsae | | | | | + + [...] | | | | | | n Lee | | | | | + + [...] | | | | | performed at [facility];[address] | | | | | [address];[place] | | | | | | [address] | | | | + + + + + + + + | Specimen | + + | Blood | + + + + + + + | Performing | Address | City/State/Zipcode | Phone Number | | Organization | | | | + + + + + | [facility] | [address] | [place] [address] | [phone] | + + + + + POC [...] | | | POC | performed at [facility];[address] | | LABORATORY | | | | [address];[place] | | | | | | [address] | | | | + + + + + + + + | Specimen | + + | | + + + + + + + | Performing | Address | City/State/Zipcode | Phone Number | | Organization | | | | + + + + + | [facility] | [address] | [place] [address] | [phone] | + + + + + PTT (02/12/2019 5:12 AM PDT) + + + + + + | Component | Value | Ref Range | Performed | Pathologist | | | | | At | Signature | + + + + + + | PTT | 49 (H)Comment: Testing | 23 - 32 seconds | [facility] | | | | performed at [facility];[address] | | LABORATORY | | | | [address];[place] | | | | | | [address] | | | | + + + + + + + + | Specimen | + + | Blood | + + + + + + + | Performing | Address | City/State/Zipcode | Phone Number | | Organization | | | | + + + + + | [facility] | [address] | [place] [address] | [phone] | + + + + + Basic [...] | | | | | performed at [facility], [address] | | | | | | [facility], | | | | | | [place] [address] | | | | + + + + + + + + | Specimen | + + | Blood | + + + + + + + | Performing | Address | City/State/Zipcode | Phone Number | | Organization | | | | + + + + + | [facility] | [address] | [place] [address] | [phone] | + + + + + CBC [...] | | | | | [place] [address] | | | | + + + + + + + + | Specimen | + + | Blood | + + + + + + + | Performing | Address | City/State/Zipcode | Phone Number | | Organization | | | | + + + + + | [facility] | [address] | [place] [address] | [phone] | + + + + + CK Total (02/12/2019 5:12 AM PDT) + + + + + + | Component | Value | Ref Range | Performed | Pathologist | | | | | At | Signature | + + + + + + | CK TOTAL | 309Comment: Testing | 55 - 400 U/L | [facility] | | | | performed at [facility];[address] | | LABORATORY | | | | [address];[place], [place] | | | | | | [address] | | | | + + + + + + + + | Specimen | + + | Blood | + + + + + + + | Performing | Address | City/State/Zipcode | Phone Number | | Organization | | | | + + + + + | [facility] | [address] | [place] [address] | [phone] | + + + + + ECG [...] | | | POC | performed at [facility];[address] | | LABORATORY | | | | [address];[place] | | | | | | [address] | | | | + + + + + + + + | Specimen | + + | | + + + + + + + | Performing | Address | City/State/Zipcode | Phone Number | | Organization | | | | + + + + + | [facility] | [address] | [place] [address] | [phone] | + + + + + POC Glucose (02/11/2019 8:56 PM PDT) + + + + + + | Component | Value | Ref Range | Performed | Pathologist | | | | | At | Signature | + + + + + + | Glucose, | 141 (H)Comment: Testing | 65 - 99 mg/dL | [facility] | | | POC | performed at [facility];[address] | | LABORATORY | | | | [address];[place] | | | | | | [address] | | | | + + + + + + + + | Specimen | + + | | + + + + + + + | Performing | Address | City/State/Zipcode | Phone Number | | Organization | | | | + + + + + | [facility] | [address] | [place] [address] | [phone] | + + + + + PTT (02/11/2019 7:45 PM PDT) + + + + + + | Component | Value | Ref Range | Performed | Pathologist | | | | | At | Signature | + + + + + + | PTT | 46 (H)Comment: Testing | 23 - 32 seconds | [facility] | | | | performed at [facility];[address] | | LABORATORY | | | | [address];[place], [place] | | | | | | [address] | | | | + + + + + + + + | Specimen | + + | Blood | + + + + + + + | Performing | Address | City/State/Zipcode | Phone Number | | Organization | | | | + + + + + | [facility] | [address] | [place] [address] | [phone] | + + + + + POC [...] | | | POC | performed at [facility];[address] | | LABORATORY | | | | [address];[place], [place] | | | | | | [address] | | | | + + + + + + + + | Specimen | + + | | + + + + + + + | Performing | Address | City/State/Zipcode | Phone Number | | Organization | | | | + + + + + | [facility] | [address] | [place] [address] | [phone] | + + + + + ECG [...] | | | Clotting | performed at [facility];[address] | seconds | LABORATORY | | | Time, POC | [address];[place] | | | | | | [address] | | | | + + + + + + + + | Specimen | + + | | + + + + + + + | Performing | Address | City/State/Zipcode | Phone Number | | Organization | | | | + + + + + | [facility] | [address] | [place] [address] | [phone] | + + + + + POC [...] | | | POC | performed at [facility];[address] | | LABORATORY | | | | [address];[place], [place] | | | | | | [address] | | | | + + + + + + + + | Specimen | + + | | + + + + + + + | Performing | Address | City/State/Zipcode | Phone Number | | Organization | | | | + + + + + | [facility] | [address] | [place] [address] | [phone] | + + + + + PTT (02/11/2019 11:47 AM PDT) + + + + + + | Component | Value | Ref Range | Performed | Pathologist | | | | | At | Signature | + + + + + + | PTT | 48 (H)Comment: Testing | 23 - 32 seconds | [facility] | | | | performed at [facility];[address] | | LABORATORY | | | | [address];[place] | | | | | | [address] | | | | + + + + + + + + | Specimen | + + | Blood | + + + + + + + | Performing | Address | City/State/Zipcode | Phone Number | | Organization | | | | + + + + + | [facility] | [address] | [place] [address] | [phone] | + + + + + Troponin I (02/11/2019 11:47 AM PDT) + + + + + + | Component | Value | Ref Range | Performed | Pathologist | | | | | At | Signature | + + + + + + | Troponin I | 14.741 ()Comment: | 0.00 - 0.04 | [facility] | | | | 0.04 ng/mL [...] NURSING | | | | | | [facility] @ 1227 | | | | | | [employer] RESULTS | | | | | | VERIFIEDTesting | | | | | | performed at [facility];[address] | | | | | | [address];[place] | | | | | | [address] | | | | + + + + + + + + | Specimen | + + | Blood | + + + + + + + | Performing | Address | City/State/Zipcode | Phone Number | | Organization | | | | + + + + + | [facility] | [address] | [place] [address] | [phone] | + + + + + ECG [...] [facility] | | | | performed at [facility];[address] | | LABORATORY | | | | [address];[place] | | | | | | [address] | | | | + + + + + + + + | Specimen | + + | Blood | + + + + + + + | Performing | Address | City/State/Zipcode | Phone Number | | Organization | | | | + + + + + | [facility] | [address] | [place] [address] | [phone] | + + + + + TSH (02/11/2019 7:43 AM PDT) + + + + + + | Component | Value | Ref Range | Performed | Pathologist | | | | | At | Signature | + + + + + + | TSH | 0.779Comment: Testing | 0.450 - 5.100 | [facility] | | | | performed at [facility];[address] | uIU/mL | LABORATORY | | | | [address];[place], [place] | | | | | | [address] | | | | + + + + + + + + | Specimen | + + | Blood | + + + + + + + | Performing | Address | City/State/Zipcode | Phone Number | | Organization | | | | + + + + + | [facility] | [address] | [place] [address] | [phone] | + + + + + B Type Natriuretic Peptide (02/11/2019 7:43 AM PDT) + + + + + + | Component | Value | Ref Range | Performed | Pathologist | | | | | At | Signature | + + + + + + | BNP | 406.69 (H)Comment: | 0 - 100 pg/mL | [facility] | | | | Testing performed at | | LABORATORY | | | | [facility];[address];[place] [address] | | | | + + + + + + + + | Specimen | + + | Blood | + + + + + + + | Performing | Address | City/State/Zipcode | Phone Number | | Organization | | | | + + + + + | [facility] | [address] | [place] [address] | [phone] | + + + + + Lipid [...] | | | Calculated | performed at [facility], [address] | | LABORATORY | | | | [address], | | | | | | [place] [address] | | | | + + + + + + + + | Specimen | + + | Blood | + + + + + + + | Performing | Address | City/State/Zipcode | Phone Number | | Organization | | | | + + + + + | [facility] | [address] | [place] [address] | [phone] | + + + + + Comprehensive [...] | | | | | | MDRD IDMD traceable | | | | | | equation.Testing | | | | | | performed at [facility], [address] | | | | | | [facility], | | | | | | [place] [address] | | | | + + + + + + + + | Specimen | + + | Blood | + + + + + + + | Performing | Address | City/State/Zipcode | Phone Number | | Organization | | | | + + + + + | [facility] | [address] | [place] [address] | [phone] | + + + + + CBC [...] [facility] | | | | performed at [facility], [address] | | LABORATORY | | | | [address], | | | | | | [place] [address] | | | | + + + + + + + + | Specimen | + + | Blood | + + + + + + + | Performing | Address | City/State/Zipcode | Phone Number | | Organization | | | | + + + + + | [facility] | [address] | [place] [address] | [phone] | + + + + + Troponin [...] | | | | UNITMELODY V/6RP @ 9768 | | | | | | [employer] RESULTS | | | | | | VERIFIEDTesting | | | | | | performed at [facility];[address] | | | | | | [facility];[place], [place] | | | | | | [address] | | | | + + + + + + + + | Specimen | + + | Blood | + + + + + + + | Performing | Address | City/State/Zipcode | Phone Number | | Organization | | | | + + + + + | [facility] | [address] | [place] [address] | [phone] | + + + + + POC Glucose (02/11/2019 6:10 AM PDT) + + + + + + | Component | Value | Ref Range | Performed | Pathologist | | | | | At | Signature | + + + + + + | Glucose, | 126 (H)Comment: Testing | 65 - 99 mg/dL | [facility] | | | POC | performed at [facility];[address] | | LABORATORY | | | | [address];[place] | | | | | | [address] | | | | + + + + + + + + | Specimen | + + | | + + + + + + + | Performing | Address | City/State/Zipcode | Phone Number | | Organization | | | | + + + + + | [facility] | [address] | [place] [address] | [phone] | + + + + + Troponin I (02/11/2019 3:56 AM PDT) + + + + + + | Component | Value | Ref Range | Performed | Pathologist | | | | | At | Signature | + + + + + + | Troponin I | 9.098 ()Comment: | 0.00 - 0.04 | [facility] | | | | 0.04 ng/mL [...] | | | | | performed at [facility] | | | | | | [facility];[place], [place] | | | | | | [address] | | | | + + + + + + + + | Specimen | + + | Blood | + + + + + + + | Performing | Address | City/State/Zipcode | Phone Number | | Organization | | | | + + + + + | [facility] | [address] | [place] [address] | [phone] | + + + + + ECG [...] (500), | | | | | | web editor Shea Fajardo | | | | | [...]
--- OUTSIDE RECORDS SUMMARY | ~2019-04-07 | XMS | Encounter Summary ---
Demographics + + + | Address | [address] | | | [place] [address] | + + + | Home Phone | | + + + | Preferred Language | Unknown | + + + | Marital Status | Legally | + + + | Roman Catholic Affiliation | 1041 | + + + [...] Team Providers + +------+ + | Care Belt Maker Name | Role | Phone | + [...] + + | 03/13/ | Telephone | [facility] | Damaris Onealanish Juarez, | No Show | | 2018 | | CARDIOTHORACIC | RN | | | | | SURGERY [address] | | | | | | [address] | | | | | | [place] | | | | | | [address] | | | | | | [phone] | | | +--------+ + + + [...] | | | | | [place] [address] | | | | | | [phone] | | | | | | | | +--------+---------+ + + + documented as of this encounter Visit Diagnoses Not on filedocumented in this encounter"
--- OUTSIDE RECORDS SUMMARY | ~2019-04-07 | XMS | Encounter Summary ---
Demographics + + + | Address | [address] | | | [place] [address] | + + + | Home Phone | | + + + | Preferred Language | Unknown | + + + | Marital Status | Legally | + + + | Gnosticist Affiliation | 1041 | + + + | Race | Unknown | + + + | Ethnic Group | Unknown | + + + Author + + + | Author | [facility] | | | and [place] | + + + | Organization | [facility] | | [...] Team Providers + +------+ + | Care Chief Embalmer Name | Role | Phone | + +------+ + PCP | Unavailable | + +------+ + Encounter Details +--------+ + + + + | Date | Type | Department | Care Team | Description | +--------+ + + + + | 05/09/ | Orders Only | [facility] | Shea Pedraza W, | ATN (acute tubular | | 2019 | | NEPHROLOGY [address] | necrosis) ([facility]) | | | | [address] | [address] [place] | (Primary Dx); | | | | [place], [place] | [place] [address] | Essential | | | | [address] | [phone] | hypertension with | | | | [phone] | | goal blood pressure | | | | | | less than 130/85; | | | | | | Vitamin D deficiency | +--------+ + + + + Social [...] documented as of this encounter Progress Notes Jesenia Robison RN - 05/09/2018 9:42 AM PSTLabs for nephrology appt on 06/06/18 sent to [facility] wharton documented in this en counter Plan of Treatment +--------+---------+ + + + | Date | Type | Specialty | Care Team | Description | +--------+---------+ + + + | 06/19/ | Office | Nephrology | Shea Pedraza, | | | 2019 | Visit | | MD Harmony Sharma | | | | | | [place] | | | | | | [place] [address] | | | | | | [phone] | | | | | | | | +--------+---------+ + + + documented as of this encounter Visit Diagnoses + + | Diagnosis | + + | ATN (acute tubular necrosis) (HCC) - Primary Acute kidney failure with lesion of | | tubular necrosis | + + | Essential hypertension with goal blood pressure less than 130/85 | + + | Vitamin D deficiency Unspecified vitamin D deficiency | + + documented in this encounter"
--- OUTSIDE RECORDS SUMMARY | ~2019-04-07 | XMS | Encounter Summary ---
Demographics + + + | Address | [address] | | | [place] [address] | + + + | Home Phone | | + + + | Preferred Language | Unknown | + + + | Marital Status | Legally | + + + | Jehovah'S Witness Affiliation | [id number] | + + + [...] Team Providers + +------+ + | Care Indoor Landscaper/Gardener Name | Role | Phone | + [...] | | | | | | | [place] | | | | | | [...] | +--------+ + + + + | 02/11/ | Hospital | [facility] | Albert Strange | NSTEMI (non-ST | | 2019 - | Encounter | [facility] | MD Dre [address] | elevated myocardial | | | | CARE FLOOR [address] [place], [place] | infarction) (HCC) | | 02/28/ | | [address] | [address] | (Primary Dx); CKD | | 2019 | | [place], [place] | [phone] | (chronic kidney | | | | [phone] | | disease) stage 4, | | | | [phone] | Theodore Breaux, | GFR 15-29 ml/min | | | | | [address] | (HCC); Acute | | | | | [place] [address] | coronary syndrome | | | | | [phone] | (HCC); Acute renal | | | | | | failure with other | | | | | Sue Avitia MD | specified | | | | | [address] | pathological kidney | | | | | [place] [address] | lesion superimposed | | | | | [phone] | on stage 3 chronic | | | | | | kidney disease | | | | | Liban Nair MD | (HCC); Paroxysmal | | | | | [address] | atrial fibrillation | | | | | [place], [place] | ([facility]); Chest pain, | | | | | [phone] | unspecified type; | | | | | | Atherosclerosis of | | | | | | coronary artery, | | | | | | angina presence | | | | | | unspecified, | | | | | | unspecified vessel | | | | | | or lesion type, | | | | | | unspecified whether | | | | | | [place] | | | | | | transplanted heart; | | | | | | Type 2 diabetes | | | | | | mellitus with stage | | | | | | 3 chronic kidney | | | | | | disease, with | | | | | | long-term current | | | | | | use of insulin | | | | | | ([facility]); | | | | | | Hyperlipidemia, | | | | | | unspecified | | | | | | hyperlipidemia type; | | | | | | JAMESON (acute kidney | | | | | | injury) ([facility]); CKD | | | | | | (chronic kidney | | | | | | disease) stage 3, | | | | | | GFR 30-59 ml/min | | | | | | ([facility]); Essential | | | | | | hypertension with | | | | | | goal blood pressure | | | | | | less than 130/85; | | | | | | Electrolyte | | | | | | imbalance risk; | | | | | | Hypoalbuminemia; | | | | | | Anemia of chronic | | | | | | kidney failure, | | | | | | stage 3 (moderate) | | | | | | ([facility]); Hyperkalemia; | | | | | | Edema, unspecified | | | | | | type; Anemia, | | | | | | unspecified type; C. | | | | | | difficile diarrhea; | | | | | | S/P CABG (coronary | | | | | | artery bypass | | | | | | graft); Reactive | | | | | | thrombocytosis; | | | | | | Chronic kidney | | | | | | disease, unspecified | | | | | | CKD stage; Ischemic | | | | | | cardiomyopathy | +--------+ + + + + Social [...] Joselito Robertson AGE/SEX: 53 y.o. male ROOM: [address] [place] [address] : 1965 PCP: No Physician on file [...] was diagnosed with a non- ST segment MS. He was evaluated by Dr. Canales and [...] The patient was fit for discharge to [facility] ([facility]) on 02/28/19. Problems addressed during hospital stay: 1)Low EF with LV thrombus: On Xarelto [facility] for PAF (pt remained SR throughout hospitalizati on), however dt concern for bleeding was started on Coumadin instead. Goal INR 2-3. F/u with cardiology 2)CKD/ARF: Nephrology following patient closely throughout hospitalization. Cr increased h owever improved with hydration. Pt to f/u with his director global development outpatient. 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 08/12/2014 Vitamin D deficiency 10/13/2017 Past Surgical History: Procedure Laterality Date CARDIAC CATHERIZATION N/A 02/11/2019 Procedure: CV COR ANGIO; Surgeon: Juan Canales MD; [place] [facility] [place] CORONARY ARTERY BYPASS GRAFT N/A 02/15/2019 Procedure: CORONARY ARTERY BYPASS GRAFT X4 WITH TAKEDOWN LEFT INTERNAL MAMMARY ARTERY, EVH RIGHT SAPHONUS VEIN; Surgeon: Liban Nair MD; Location[place] [facility] [place] Allergies Allergen Reactions Penicillins Anaphylaxis, [...] to start cardiac rehabilitation in accordance with auto refinisher recommendations. Pt advised not to drive for [...] manage prescriptions until pt has seen seen Waterworks Chief Engineer and Primary Care Physician, who will resume [...] on file. Follow up: Yue Mcguire PA-C [address] [facility] [address] [facility] [phone] Liban Nair MD [address] [place] [facility] [id number] Schedule an appointment as soon as possible for a visit on 03/13/2019 Post-op Juan Canales MD [address] [facility] [id number] Schedule an appointment as soon as possible [...] | | | | | | 4 [id number] to 260 | | | | | | | Give 6 [id number] | | | | | | | to 300 Give 8 | | | | | | | [id number] to 350 Give | | | | [...] a long and complicated course during his [facility] hospitalization. In brief he is [...] was completed later after rounds. Dictation software, Aspyra, was used which may contain error for [...] mg Oral Daily - Warfarin dextrose 10% uan Canales MD - 02/28/2019 8:30 AM PSTFormatting of this note might be different from the [facility] Service: Cardiology Progress Note Hospital Day: [...] f/u with pt. Juan Canales MD 02/28/2019 Jacinda Anderson RN - 02/28/2019 6:05 AM PSTHourly rounding uneventful. Chart check complete. Lorena Smith RN Reji Duenas MD - 02/27/2019 3:55 PM PSTFormatting of this note might be different from caridad lainez original. 9103/9103-01 Hospital Day: LOS: 16 days Joselito Robertson is a 53 y.o. man who has had a long and complicated course during his cu rrent hospitalization. In brief he is status post [...] was diagnosed with C. difficile on the a nd has had significant volume loss [...] was completed later after rounds. Dictation software, Aspyra, was used which may contain error for [...] mg Oral Daily - Warfarin dextrose 10% amagaly, Juan jeong MD - 02/27/2019 8:26 AM PSTFormatting of this note might be different from the [facility] Service: Cardiology Progress Note Hospital Day: [...] Barrow PA-C - 02/27/2019 8:17 AM PST [facility] Service: Cardiothoracic Surgery Progress Note ROOM: [address] [place] [address] Hospital Day: LOS: 16 days Post-Op Day: [...] Shea Andrews MD LABS: Recent Labs Lab 02/27/1934802/26/1940302/25/19406 WBC 10.67 9.62 9.75 HGB 9.9* 10.4* 10.5* HCT 28.9* 31.1* 31.9* PLT 506* 577* 559* MONOPCT 8.27 7.85 8.71 Recent Labs Lab 02/27/1934802/26/1940302/25/19406 NA 140 144 141 K 4.9 4.8 4.3 CL 115* 119* 116* CO2 19* 18* 14* BUN 39* 27* 34* CALCIUM 8.2* 8.4* 8.4* ALKPHOS -- -- 114 ALT -- -- 64 AST -- -- 70* Phosphorus: Lab Results Component Value Date PHOS 3.7 02/15/2019 No results for input(s): LABALBU in the last 168 hours. Recent Labs Lab 02/27/1934802/26/1940302/25/19406 MG 2.0 2.0 2.0 No results for input(s): AMYLASE in the last 168 hours. No results for input(s): PHART, PO2ART, KLK0WHB, J3KPQLRE, BEART in the last 168 hours. Recent Labs Lab 02/27/1934802/26/1940303/19 0407 02/24/19 0422 02/23/19 0424 02/22/19 2258 [...] Continue Step Down Unit care. Discharge to [facility] Nephrology Consult. Code Status: Full Code The patient has been seen, all new lab results and imaging reviewed, and the plan discussed with the attending provider, Dr. Matias KHAN PA-C 02/27/2019 Associated attestation - Mark Salcedo MD PhD - 02/27/2019 10:54 AM PSTI have reviewed the note below, personally reviewed the available laboratory and imaging studies and examine d the patient. I agree with the assessment and plan mentioned below. Electronically signed by: Mark Salcedo MD, PhD, FACS 02/27/2019 10:54MesLauren jim RN - 02/26/2019 8:48 PM PSTNo acute events overnight. Tai valdes continues to have multiple loose stools throughout the shift. Ambulating in room and peres without difficulty or SOB. Lifevest remains on. Lauren Diamond RN 02/27/2019 6:11 Trini Lizarraga MD - 02/26/2019 9:05 AM PST [facility] Service: Infectious Disease Progress Note [...] A/B, NAAT NEGATIVE CLNEG C Diff Strain 0700YGZ5-C4, Stool 027 NAP1 BI PRESUMPTIVE NEGATIVE POC [...] Status: Full Code Trini Carbone MD 02/26/2019 Giorgi Hall MD - 02/26/2019 9:00 AM PSTFormatting of this note might be different fro m the original. [facility] Service: Cardiology Progress Note Hospital Day: [...] no C/O. Juan Canales MD 02/26/2019 Valeria Barorw PA-C - 02/26/2019 7:41 AM PST [facility] Service: Cardiothoracic Surgery Progress Note ROOM: [address] [place] [address] Hospital Day: LOS: 15 days Post-Op Day: [...] 1 tablet by mouth Daily. 08/08/18 Dewey edwin Shea Pedraza MD fenofibrate (LOFIBRA, TRIGLIDE) 160 [...] Shea Andrews MD LABS: Recent Labs Lab 02/26/19 0404 02/25/1940602/24/19 042 WBC 9.62 9.75 9.97 HGB 10.4* 10.5* 10.5* HCT 31.1* 31.9* 30.7* PLT 577* 559* 528* MONOPCT 7.85 8.71 8.89 Recent Labs Lab 02/26/19 0404 02/25/1940602/24/19 042 NA 144 141 140 K 4.8 4.3 [...] hours. No results for input(s): PHART, PO2ART, PSZ5TAH, W3AFUALA, BEART in the last 168 hours. Recent [...] added 02/23 Waiting on LifeVest-may AICD placement prior to discharge Fluid Volume [...] Continue Step Down Unit care. Discharge to [facility] pending Life Vest place ment. Code [...] minimal assist. Lauren Diamond RN 02/26/2019 6:13 Yomi Dimas ARNP - 02/25/2019 10:06 AM PST . [facility] Service: Cardiothoracic Surgery Progress Note ROOM: [address] [place] [address] Hospital Day: LOS: 14 days Post-Op Day: [...] L/24 hrs +unmeasured CT: Removed BM: x 6/24 hrs OBJECTIVE Vital Signs: BP 128/68 | [...] incision dressing is C/D/I. Chest tube removed noa rodriguez C/D/I. Pacing wires removed EVH incisions C/D/I. [...] Take 1 tablet by mouth Daily. 08/08/18 eDwey s Shea Pedraza MD fenofibrate (LOFIBRA, TRIGLIDE) [...] Shea Andrews MD LABS: Recent Labs Lab 02/25/1940602/24/1942102/23/19423 WBC 9.75 9.97 10.49 HGB 10.5* 10.5* [...] hours. No results for input(s): PHART, PO2ART, XJN3YGH, T4URSBBR, BEART in the last 168 hours. Recent Labs Lab 02/25/1940602/19 0422 02/23/19 0424 02/22/19 2258 INR 2.2 1.7 1.2 -- PTT [...] Continue Step Down Unit care. Placement with [facility] Swing Bed on Tuesday. Code Status: Full Code The patient has been seen, all new lab results and imaging reviewed, and the plan discussed with the attending provider, Dr. Matias TERRELL, COMMERCIAL FINANCE MANAGER 02/25/2019 Associated attestation - Mark Salcedo MD [...] might b e different from the original. [facility] Service: Cardiology Progress note Hospital Day: [...] g 4 g Intravenous Daily PRN BELINDA Erickosn menthol (HALLS) lozenge 1 lozenge 1 lozenge [...] Net -120 ml First: 95.3 kg (02/11/19 031)Last: 85.8 kg (02/25/19620)Difference: -9.5kg Physical Exam Constitutional: He is oriented [...] Status: Full Code Douglas Vargas MD 02/25/19 Chen Anderson i, RN - 02/25/2019 5:28 AM PSTHourly rounding uneventful. Chart check complete. Lorena Smith RN Sera Dimas ARNP - 02/24/2019 1:11 PM PDTFormatting of this note might be different from the o riginal. [facility] Service: Cardiothoracic Surgery Progress Note ROOM: 9103/9103-01 Hospital Day: LOS: 13 days Post-Op Day: [...] Andrews MD LABS: Recent Labs Lab 02/24/1942102/23/1942302/22/19 040 WBC 9.97 10.49 11.18* HGB 10.5* 11.6* 11.4* HCT 30.7* 34.3* 33.8* PLT 528* 507* 409* MONOPCT 8.89 8.74 9.97 Recent Labs Lab 02/24/1942102/23/19211802/23/1942302/22/19401 NA 140 -- 141 -- 140 K [...] the last 168 hours. Recent Labs Lab 02/24/1942102/23/1942302/22/19401 MG 1.8 2.0 1.8 No results for input(s): AMYLASE in the last 168 hours. No results for input(s): PHART, PO2ART, OVE6ZME, J3BSSEQF, BEART in the last 168 hours. Recent Labs Lab 02/24/1942102/23/1942302/22/19225702/22/19 040 INR 1.7 1.2 -- -- 1.1 PTT [...] Continue Step Down Unit care. Placement with [facility] on Tuesday. Code Status: Full Code The patient has been seen, all new lab results and imaging reviewed, and the plan discussed with the attending provider, Dr. Matias TERRELL, COMMERCIAL FINANCE MANAGER 02/24/2019 Associated attestation - Mark Salcedo MD [...] might b e different from the original. [facility] Service: Cardiology Progress note Hospital Day: [...] 02/15/19 19 30 12.5 g at 02/15/19 193 albuterol [...] Net -763 ml First: 95.3 kg (02/11/19 0311)Last: 86.9 kg (02/24/19 0541)Difference: -8.4kg Physical Exam [...] Status: Full Code Douglas Vargas MD 02/24/19 hen Smith i, RN - 02/24/2019 6:11 AM PDTHourly rounding uneventful Chart check complete. Lorena Smith, RN Yomi Osei ARNP - 02/23/2019 1:59 PM PDTPatient with multiple episodes of loose sto ols daily. Creatinine and chloride increased slightly over last 24 hours. Patient is on RA, lungs clear. Lasix discontinued. Will re-evaluate for need daily given EF of 30%. Electronic ally signed by SHABBIR Duval at 02/23/2019 2:09 PM Halima Marks [facility] - 1 04/25/2018 1:55 PM PDT Clinical Pharmacy Note: Warfarin Continuation of Therapy Referring Provider: Valeria Robertson male 53 y.o. Indication Atrial Fibrillation, LV thrombus Goal INR: 2-3 Other Anticoagulation: Heparin drip (xarelto listed on [facility] med list) Drug Interactions: aspirin may increase list of bleeding. [facility] med list reviewed and no sign ificant [...] therapy as indicated. Thank you. Alexander. Tapia [facility] I have read and agree with the resident's assessment and plan. Escalating warfarin dose tod ay to obtain therapeutic level more quickly and transition off of heparin drip in anticipati on of discharge to [facility] this weekend. If INR increases by [...] Angelo MD - 02/23/2019 12:59 PM PDT [facility] Service: Cardiology Progress note Hospital Day: [...] Douglas Vargas MD 02/23/19 reen, Marlon Street, COMMERCIAL FINANCE MANAGER - 02/23/2019 8:29 AM PDTFormatting of this note might be different from the or iginal. [facility] Service: Cardiothoracic Surgery Progress Note ROOM: [address] [place] [address] Hospital Day: LOS: 12 days Post-Op Day: [...] dextrose 10% heparin infusion 13.1 Units/kg/hr (02/23/19 0702) PRN Medications acetaminophen, albumin, albuterol, bisacodyl, Hypoglycemia [...] Shea Andrews MD LABS: Recent Labs Lab 02/23/1942302/22/1940102/21/19 0535 WBC 10.49 11.18* 8.93 HGB 11.6* 11.4* 11.1* HCT 34.3* 33.8* 32.7* PLT 507* 409* 329 MONOPCT 8.74 9.97 12.59 Recent Labs Lab 02/23/19 0424 02/22/19 1215 02/22/19 0402 02/21/19 0546 NA 141 -- 140 141 K 3.9 4.0 3.9 4.1 CL 113* -- 109 108 CO2 21* -- 23 26 BUN 28* -- 30* 37* CALCIUM 8.7 -- 8.5 8.3* Phosphorus: Lab Results Component Value Date PHOS 3.7 02/15/2019 No results for input(s): LABALBU in the last 168 hours. Recent Labs Lab 02/23/1942302/22/19 0402 02/21/19 0546 MG 2.0 1.8 2.0 No results for input(s): AMYLASE in the last 168 hours. No results for input(s): PHART, PO2ART, FQZ8TPP, L7NPZAUT, BEART in the last 168 hours. Recent Labs Lab 02/23/19 0424 02/22/19 2258 02/22/19 1655 02/22/19 0402 02/21/19 1501 [...] bleeding risks postoperatively Heparin bridge initiated on 10/31- PTT of 56 INR of 1.2 today [...] Continue Step Down Unit care. Placement with [facility] Swing Bed pending. Anticipate d ischarge this weekend. Code Status: Full Code The patient has been seen, all new lab results and imaging reviewed, and the plan discussed with the attending provider, Dr. Luisana TERRELL, SHABBIR 02/23/2019 Associated attestation - Liban Nair MD [...] complete. Meredith Quinones RN roctor, Cecil Razo [facility] - 02/22/2019 3:21 PM PDTFormatting of this note might be different from the origi nal. Pharmacy Warfarin Monitoring: Joselito Robertson male 53 y.o. Pharmacy consulted to dose warfarin per: BELINDA Luna INDICATION: Atrial Fibrillation, LV thrombus OTHER ANTICOAGULATION: heparin drip inpatient (Xarelto listed on [facility] med list) DRUG INTERACTIONS: aspirin and plavix may increase list of bleeding. [facility] med list reviewed and no significant DDI [...] Angelo MD - 02/22/2019 1:39 PM PDT [facility] Service: Cardiology Cross coverage for Dr. [...] THANKS FOR THE CONSULT Stanislav Patricio MD ose, [address]omi [address], COMMERCIAL FINANCE MANAGER - 02/22/2019 7:48 AM PDT [facility] Service: Cardiothoracic Surgery Progress Note ROOM: 9103/9103-01 Hospital Day: LOS: 11 days Post-Op Day: [...] 2.3 L/[address]: Removed BM: x 10/16 hrs OBJECTIVE Vital Signs: BP 127/65 | [...] by mouth Daily. 06/29/18 Yes Historic al ProviderMD metoprolol succinate (TOPROL-XL) 100 mg ER tablet [...] 7.383 7.329* 7.309* PO2ART 94 94 83 [id number] 39 43 39 [id number] 97 97 95 Recent Labs Lab 02/22/19 [...] Dr. Vargas who is covering for Dr. Canales-will evaluate patient Patient with a history of [...] Cardiac Unit care for now. Placement with [facility]ing Bed pending. Elian fleming discharge on 02/22. Code Status: Full Code The patient has been seen, all new lab results and imaging reviewed, and the plan discussed with the attending provider, Dr. Luisana TERRELL, SHABBIR 02/22/2019 Associated attestation - Liban Nair MD - 02/22/2019 9:42 AM PDTPatient was seen, exami danis, labs, x-rays, treatment plan reviewed. Omar Lacey RN - 02/22/2019 5:36 AM PDTNo acute events, VSS. Chart check complete. sbaldoschLeisa jang RN - 02/21/2019 8:06 PM PDTEnd of [...] Stanislav Patricio MD roctor, Meredith Razo RP - 02/21/2019 3:08 PM PDT Pharmacy Warfarin Monitoring: Joselito Robertson male 53 y.o. Pharmacy consulted to dose warfarin per: BELINDA Luna INDICATION: Atrial Fibrillation OTHER ANTICOAGULATION: none inpatient (Xarelto listed on [facility] med list) DRUG INTERACTIONS: aspirin and plavix may increase list of bleeding. [facility] med list reviewed and no significant DDI [...] and modify therapy as indication. Meredith Murphy, VarshaD, BCPS Montserrat Mott PA-C - 02/21/2019 11:50 AM PDTFormatting of this note might be different from the [facility]: Cardiothoracic Surgery Progress Note ROOM: [address] [place] [address] Hospital Day: LOS: 10 days Post-Op Day: [...] Nightly insulin lispro 0-14 Units Subcutaneous TID metoprolol tartrate 50 mg Oral BID Continuous [...] mg by mouth Daily. Yes Histori pita ProviderMD nitroglycerin (NITROSTAT) 0.[address] [...] MD LABS: Recent Labs Lab 02/21/19 0535 02/20/193 02/19/19 0412 WBC 8.93 9.11 11.44* HGB 11.1* 11.0* 10.3* HCT 32.7* 32.6* 29.9* PLT 329 268 182 MONOPCT 12.59 11.07 8.13 Recent Labs Lab 02/21/19 0546 02/20/193 02/19/192 NA 141 141 140 K 4.1 4.1 4.4 CL 108 107 108 CO2 26 26 23 BUN 37* 47* 55* CALCIUM 8.3* 8.3* 8.1* Phosphorus: Lab Results Component Value Date PHOS 3.7 02/15/2019 No results for input(s): LABALBU in the last 168 hours. Recent Labs Lab 02/21/1945 02/20/1940202/19/19411 MG 2.0 2.2 2.6* No results for input(s): AMYLASE in the last 168 hours. Recent Labs Lab 02/15/19 2329 02/15/19200202/15/19 1819 PHART 7.383 7.329* 7.309* PO2ART 94 94 83 [id number] 39 43 39 [id number] 97 97 95 Recent Labs Lab 02/15/19 [...] Off Endotool and on subq insulin Per MAR, patient has not received basal insulin for the past 48 hours. Reason for medicati on withholding is unknown Hx of DM, on Lantus and oral medication taken at home A1c of 7.4 Consult placed for DM educator Dispo Continue Cardiac Unit care for now. Placement with [facility] pending. Elian fleming discharge on 02/22. Code Status: Full [...] this note might be different from t he original. Hospital Problem List: Principal Problem: NSTEMI [...] shift chart check complete. Leisa Wolf RN Edwin Mott PA-C - 02/20/2019 9:30 AM PDT [facility] Service: Cardiothoracic Surgery Progress Note ROOM: [address] [place] [address] Hospital Day: LOS: 9 days Post-Op Day: [...] 3 Units Subcutaneous TID WC metoprolol tartrate 25 mg Oral BID Continuous [...] 7.383 7.329* 7.309* PO2ART 94 94 83 [id number] 39 43 39 [id number] 97 97 95 Recent Labs Lab 02/15/19 [...] Cardiac Unit care for now. Placement with [facility] pending. Code Status: Full Code The [...] this note might be different from t he original. Hospital Problem List: Principal Problem: NSTEMI [...] stable throughout shift. Chart check co mplete. relio, Yomi Street, COMMERCIAL FINANCE MANAGER - 02/19/2019 9:00 AM PDTFormatting of this note might be different from the shaggy maria ines. [facility] Service: Cardiothoracic Surgery Progress Note ROOM: [address] [place] [address] Hospital Day: LOS: 8 days Post-Op Day: [...] Shea Andrews MD LABS: Recent Labs Lab 02/19/1941102/18/1940702/17/19443 WBC 11.44* 13.70* 16.22* HGB 10.3* 9.9* 9.7* HCT 29.9* 29.8* 28.7* PLT 182 139* 132* MONOPCT 8.13 7.02 10. Recent Labs Lab 02/19/1941102/18/1940702/17/19443 NA 140 139 142 K 4.4 5.2* 4.7 CL 108 109 111* CO2 BUN 55* 64* 54* CALCIUM 8.1* 7.9* 7.9* Phosphorus: Lab Results Component Value Date PHOS 3.7 02/15/2019 No results for input(s): LABALBU in the last 168 hours. Recent Labs Lab 02/19/1941102/18/1940702/17/19443 MG 2.6* 3.0* 2.8* No results for input(s): AMYLASE in the last 168 hours. Recent Labs Lab 02/15/19 2329 02/15/19200202/15/19 1819 PHART 7.383 7.329* 7.309* PO2ART 94 94 83 [id number] 39 43 39 [id number] 97 97 95 Recent Labs Lab 02/15/19 [...] DETAIL, VERBALIZ ES UNDERSTANDING Stanislav Patricio MD Walker Rowe RN - 5:31 PM PDTVSS, BM today, [...] moderate Required Follow Up: (M; 02/23) Nicolasa Freitas MS-MPH, RDN 02/18/2019 13:04 omurray, BELINDA Chaney - 02/18/2019 8:49 AM PDTFormatting of this note might be different from the [facility] Service: Cardiothoracic Surgery Progress Note ROOM: 501[address]-34 Hospital Day: LOS: 7 days Post-Op Day: [...] Oral BID Continuous Infusions dexmedetomidine Stopped (02/16/19 6365) dextrose 10% EPINEPHrine infusion Stopped (02/16/19 6390) nitroglycerin in dextrose Stopped (02/15/19 1308) phenylephrine 30 mcg/min (02/16/19 8539) vasopressin (VASOSTRICT) infusion (shock) PRN Medications albumin, [...] Shea Andrews MD LABS: Recent Labs Lab 02/18/19 0408 02/17/19 0444 02/16/19 0434 WBC 13.70* 16.22* 18.13* HGB 9.9* 9.7* 11.4* HCT 29.8* 28.7* 33.3* PLT 139* 132* 137* MONOPCT 7.02 10.22 11.75 Recent Labs Lab 02/18/19 0408 02/17/19 0444 02/16/19 1245 02/16/19 0434 NA 139 142 [...] 7.383 7.329* 7.309* PO2ART 94 94 83 [id number] 39 43 39 [id number] 97 97 95 Recent Labs Lab 02/15/19 [...] discussed with the attending provider, Dr. Luisana Najera, BELINDA 02/18/2019 Associated attestation - Mckay Fuller MD [...] Connor Wallace ARNP - 02/18/2019 3:19 AM [facility] Service: Candy Maker Helper Cardiothoracic Surgery Consult and Follow Up Date/Time:02/18/2019 [...] CKD stage 3, psoriasis who presented to [facility] due to a 2 day history of chest pain and SOB. Initial troponin was mildly elevated and cont inued to rise after admission, peaked at 22. EKG did show inferolateral ST -T wave abnormali ties suggestive of ischemia. Coronary angiogram was performed on 02/11 with Ally Valles which revealed restenosis of RCA lesion and [...] (ASA, plavix, betablocker, statin) - extubated to AR. - Post operative management per CTS (chest [...] Oral BID current Meds: dexmedetomidine Stopped (02/16/19 1458) dextrose 10% EPINEPHrine infusion Stopped (02/16/19 2830) nitroglycerin in dextrose Stopped (02/15/19 1308) phenylephrine 30 mcg/min (02/16/19 856) vasopressin (VASOSTRICT) infusion (shock) P.E. Vs; reviewed [...] Patricio MD Calixto Sanders PA - 1 4:11 PM PDT [facility] Service: Cardiothoracic Surgery Progress Note ROOM: 75967/13555-03 Hospital Day: LOS: 6 days Post-Op Day: [...] Nightly insulin lispro 3 Units Subcutaneous TID magnesium hydroxide 30 mL Oral Nightly metoprolol tartrate 12.5 mg Oral BID Continuous Infusions dexmedetomidine Stopped (02/16/19 0415) dextrose 10% EPINEPHrine infusion Stopped (02/16/19 1550) nitroglycerin in dextrose Stopped (02/15/19 1308) phenylephrine 30 mcg/min (02/16/19 6209) vasopressin (VASOSTRICT) infusion (shock) PRN Medications albumin, [...] by mouth Daily. 06/29/18 Yes Historic al ProviderMD metoprolol succinate (TOPROL-XL) 100 mg ER tablet [...] Shea Andrews MD LABS: Recent Labs Lab 02/17/1944302/16/1943302/15/19 1345 WBC 16.22* 18.13* 17.53* HGB 9.7* 11.4* 12.8* HCT 28.7* 33.3* 37.7* PLT 132* 137* 131* MONOPCT 10. 11.75 7.20 Recent Labs Lab 02/17/1944302/16/19 1245 02/16/19 0434 02/15/19 1345 02/11/19 0743 [...] 7.383 7.329* 7.309* PO2ART 94 94 83 [id number] 39 43 39 [id number] 97 97 95 Recent Labs Lab 02/15/19 [...] Connor Lim ARNP - 02/17/2019 1:27 AM [facility] Service: Candy Maker Helper Cardiothoracic Surgery Consult and Follow Up Date/Time:02/17/2019 [...] CKD stage 3, psoriasis who presented to [facility] due to a 2 day history of chest pain and SOB. Initial troponin was mildly elevated and cont inued to rise after admission, peaked at 22. EKG did show inferolateral ST -T wave abnormali ties suggestive of ischemia. Coronary angiogram was performed on 02/11 with Ally Valles which revealed restenosis of RCA lesion and [...] (ASA, plavix, betablocker, statin) - extubated to AR. - Post operative management per CTS (chest [...] all other procedures. SHABBIR Jacobson 02/17/2019 5:39 oao Clark RN - 02/16/2019 5:56 PM PDTEnd of shift chart audit completeElectronically si gned by Joao Barth RN at 02/16/2019 5:56 PM Stanislav Mckinnon MD - 02/16/2019 3:32 PM PDT Hospital [...] Oral BID current Meds: dexmedetomidine Stopped (02/16/19 1241) dextrose 10% EPINEPHrine infusion 1 mcg/min (02/16/19 [...] Sanders PA - 1 9:38 AM PDT [facility] Service: Cardiothoracic Surgery Progress Note ROOM: [facility]/[address] [place] [address] Hospital Day: LOS: 5 days Post-Op Day: [...] C (99 F) (Infrared Device) Comment (Src): [place]-Roland catheter | Resp 16 | Ht 1.803 [...] Continuous Infusions dexmedetomidine Stopped (02/16/19 0415) dextrose 5% and sodium chloride 0.45% 50 [...] 160 mg by mouth nightly. Yes Historica elva ProviderMD folic acid 1 mg tablet Take [...] Shea Andrews MD LABS: Recent Labs Lab 02/16/19 0434 02/15/19 1345 02/15/19 1339 02/15/19 0549 02/13/19 0652 WBC 18.13* 17.53* -- -- 10.24 10.43 HGB 11.4* 12.8* 11.6* < > 11.7* 11.4* HCT 33.3* 37.7* 34* < > 34.5* 33.0* PLT 137* 131* -- -- 239 204 MONOPCT 11.75 7.20 -- -- -- 8.98 < > = values in this interval not displayed. Recent Labs Lab 02/16/19 0434 02/15/19 2339 02/15/19 2002 02/15/19 1345 02/15/19 0549 02/11/19 0743 NA 151* [...] the last 168 hours. Recent Labs Lab 02/16/19 0434 02/15/19 1345 MG 2.6* 3.0* No results for input(s): AMYLASE in the last 168 hours. Recent Labs Lab 02/15/19 2329 02/15/19200202/15/19 1819 PHART 7.383 7.329* 7.309* PO2ART 94 94 83 [id number] 39 43 39 [id number] 97 97 95 Recent Labs Lab 02/15/19 [...] Celeste Hicks ARNP - 02/16/2019 6:57 AM [facility] Service: Candy Maker Helper Cardiothoracic Surgery Consult and Follow Up Date/Time:02/16/2019 [...] CKD stage 3, psoriasis who presented to [facility] due to a 2 day history of chest pain and SOB. Initial troponin was mildly elevated and cont inued to rise after admission, peaked at 22. EKG did show inferolateral ST -T wave abnormali ties suggestive of ischemia. Coronary angiogram was performed on 02/11 with Ally Valles which revealed restenosis of RCA lesion and [...] C (99 F) (Infrared Device) Comment (Src): [place] catheter | Resp 19 | Ht 1.803 [...] (ASA, plavix, betablocker, statin) - extubated to AR. - Post operative management per CTS (chest [...] 4. PAF on xarelto -Xarelto held since 10/19. Primary service to resume when cleared. -Telemetry monitoring. Disposition: Per cardiothoracic surgery Code Status: Full Code *Please bill 30 minutes of critical care time spent evaluating the patient, reviewing the d librado and formulating a plan exclusive of all other procedures. SHABBIR Bishop 02/16/2019 6:57 Ritu Caicedo RRT - 02/16/2019 12:46 AM PDT 02/16/19 0031 [...] Urine output between 40-70 mL/hr so far. koum, Sai Wiley MD - 1 1:05 PM PDT Hospital [...] | BMI 28.93 kg/m General appearance: intubated; mech ventilated Lungs: Clear to auscultation by CHARISMA. 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 Plan to stop IVF [...] the ON pump repor t by phone [phone] @ 1014 OFF bypass report received @ 1156 Gave Pt's ex- the OFF pump report at 1205 Electronica lly signed by Chaplain Zuhair at 02/15/2019 12:34 PM PDTVeto Hill Chaplain - 7:49 AM PDTPt Request (CVOR [...] support of family , & prayers by chaplains. Pt & family thanked chp for visit & info. Chaplain Dylan Duboisy Sai Chandler MD - 02/14/2019 11:11 AM PDTFormatting of this note might be different from t he original. 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 Stop IVF Strict low sodium in [...] Sue Calderon MD - 8:52 AM PDT [facility] Service: Hospitalist Progress Note Hospital Day: LOS: 3 days Post-Op Day: Day of Surgery SUBJECTIVE Patient Summary: 53-year-old male who has a known history of coronary arter y disease, status post stenting approximately in 2007, afib on xarelto, hypertension, HLD, D M type II who was transferred from [facility] for chest pain and was found [...] dextrose 10% heparin infusion 14 Units/kg/hr (02/14/19 4914) sodium chloride 0.9% 75 mL/hr at 02/13/19 0324 PRN Medications acetaminophen, Hypoglycemia Management AND POCT [...] inpatient, currently scheduled for . Chronic diarrhea: [place]enton to be related to lactose intolerance. He [...] Status: Full Code Sue Avitia MD 02/14/2019 avage, Juan jeong MD - 02/14/2019 8:46 AM PDTFormatting of this note might be different from the [facility] Service: Cardiology Progress Note Hospital Day: [...] option. Await CABG Juan Canales MD 02/14/2019 acinda Smith RN - 02/13/2019 10:39 PM [id number] Patient complained of CP 1x nitroglycerin given after 5 min RN reassessed and patient stated that the pain has subsided. Patient SOB when ambulat ing to the restroom. 1L NC on while sleeping. Otherwise, hourly rounding uneventful. Lorena Smith RN koum, Vanna Syed MD - 02/13/2019 11:41 AM PDTFormatting of [...] dextrose 10% heparin infusion 12 Units/kg/hr (02/13/19 5924) sodium chloride 0.9% 1,000 mL (02/13/19 0440) P.E. BP 115/72 | Pulse 78 | [...] moderate proteinuria Mild hyperK Mild met acidosis corca is ok Mild anemia [...] risk of JAMESON are undertaken. 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 Sai Chandler MD avage, Juan byrd MD - 02/13/2019 8:59 AM PDT . [facility] Service: Cardiology Progress Note Hospital Day: [...] this note might be different from the halie stevenson. [facility] Service: Hospitalist Progress Note Hospital Day: LOS: 2 days Post-Op Day: Day of Surgery SUBJECTIVE Patient Summary: 53-year-old male who has a known history of coronary arter y disease, status post stenting approximately in 2007, afib on xarelto, hypertension, HLD, D M type II who was transferred from [facility] for chest pain and was found [...] dextrose 10% heparin infusion 12 Units/kg/hr (02/13/19 5617) sodium chloride 0.9% 1,000 mL (02/13/19 0686) PRN Medications acetaminophen, Hypoglycemia Management AND POCT [...] PV Regurgitation Velocity 132.5 cm/s AV Deceleration [place] 224.61 cm/s2 AV Deceleration Time 1,390.28 msec [...] Color, UA YELLOW Clarity, UA HAZY Specific Mckenzie, Urine 1.020 1.002 - 1.030 Leukocyte esterase, [...] morphine prn. Continue aspirin, BB, statin. Holdin bipin francoeltmitzi. Dr. Nair consulted, plan for CABG while [...] Full Code Sue Avitia MD 02/13/2019 Michael Osborne RN - 02/13/2019 6:59 AM PDTPt needs reminders to use urinal when getting up to use bathroom. S OB after ambulating back to bed. PRN Phenergan x1 for nausea. Able to tolerate 25-50% of dinner. Trop 19.769 (expected value, per lead. Last 2 values: 22, 19). R groin site C/D/I. Per dayshift, CABG [...] note might be different from the original. [facility] Service: Hospitalist Progress Note Hospital Day: LOS: 1 day Post-Op Day: Day of Surgery SUBJECTIVE Patient Summary: 53-year-old male who has a known history of coronary arter y disease, status post stenting approximately in 2007, afib on xarelto, hypertension, HLD, D M type II who was transferred from [facility] for chest pain and was found [...] dextrose 10% heparin infusion 12 Units/kg/hr (02/12/19 8036) sodium chloride 0.9% 75 mL/hr at 02/12/19 [...] PV Regurgitation Velocity 132.5 cm/s AV Deceleration [place] 224.61 cm/s2 AV Deceleration Time 1,390.28 msec [...] Color, UA YELLOW Clarity, UA HAZY Specific Mckenzie, Urine 1.020 1.002 - 1.030 Leukocyte esterase, [...] Status: Full Code Sue Avitia MD 02/12/2019 Yomi Butt AR MANUFACTURING INTERN - 02/12/2019 8:54 AM [facility]TCalled [facility] and informed that patient picked up h is Xarelto on 02/10/19. Per documentation and patient information. Patient took his last dos e of Xarelto on Tuesday morning (02/10/19). He then presented to [facility] on the af of 02/10 and was transferred to [facility] early Tuesday (02/11/2019). Additionally, per ED documentation, the patient has not seen a Waterworks Chief Engineer in 8 years, how ever he was seen by Dr. Becerra 2 years ago and has had Xarelto and Echo's ordered by Dr. Posada him. Dr. Canales notified and will continue to see patient for the next few days. Patient susie l be followed by Dr. Becerra after surgery. Electronically signed by Liban Nair MD at 01/24 11:43 AM Juan Montenegro MD - 02/12/2019 8:48 AM PDT [facility] Service: Cardiology Progress Note Hospital Day: [...] follow after review of angiogram Renal Consultation le Sam RN - 02/12/2019 5:45 AM PDTVSS. Denied CP throughout shift. Pt up to [facility] site is c/d/i. Hourly rounding uneventful otherwise. Chart check complete. Ale Bernard RN Kerline Rojas RN - 02/11/2019 7:00 PM PDTPt transferred from cardiac catheterization technologist to the floor at 1344 and remained [...] Calderon MD - 02/11/2019 12:00 PM PDT [facility] Service: Hospitalist Progress Note Hospital Day: [...] dextrose 10% heparin infusion 12 Units/kg/hr (02/11/19 1909) PRN Medications acetaminophen, Hypoglycemia Management AND POCT [...] Confirmed by MUSE READ ONLY, -COMPUTER (500), assistant film editor Fajardo, Shea (18) on 02/11/2019 12:59 [...] care everyw here shows EF of 45-50%. As [...] | | | | | [address] [facility] | | | | | | [place] [address] | | | | | | [phone] | | | | | | | [...] | + +--------+ + + + | CWhit DIFFICILE DNA | Routin | 02/25/2019 | [...] | + +--------+ + + + | DENIS MCKEON8, | Routin | 02/15/2019 | | Results [...] + + + | POC CG 4, ISLEISA | Routin | 02/15/2019 | | Results [...] + + + | POC DENIS Duggan, ISLEISA | Routin | 02/15/2019 | | Results [...] +--------+ + + + | POC DENIS 4, ISTAT | Routin | 02/15/2019 | [...] | | | | PDT | infarction) ([facility]) | | + +--------+ + + + [...] | | | 02/11/ | | | 2018 | | | 3:12 | | | [...] | | | FICATI | | | ON?/ | | | | | | 9 | | | 03:11? | | | JOHNSO | | | N, | | | STANIS | | | LAUS?M | | | RN: | | | [id number] | | | [id number] | | | riteri | | | [...] | | | St. | | | [place] | | | y | | | [...] | | | St. | | | [place] | | | y H. | | [...] | | | St. | | | [place] | | | y H. | | [...] | | | St. | | | [place] | | | y H. | | [...] | | | St. | | | [place] | | | y H. | | [...] | | | St. | | | [place] | | | y H. | | | [place] | | | [place] | | | Medica | | | l | | | Surgic | | | al | | | Other | | | viral | | | pneumo | | | odilai | | | | | | [place] [...] | | e of | | | [place] | | | | | | dasilva [...] | | | ed.? | | | 2018 | | | Collec | | | [...] Testing | 65 - 99 mg/dL | [facility] | | | POC | performed at [facility] | | LABORATORY | | | | [address];[place], [place] | | | | | | [address] | | | | + + + + + + + + | Specimen | + + | | + + + + + + + | Performing | Address | City/State/Zipcode | Phone Number | | Organization | | | | + + + + + | [facility] | [address] | [place] [address] | [phone] | + + + + + Protime [...] | | | | | performed at [facility];[address] | | | | | | [address];[place], [place] | | | | | | [address] | | | | + + + + + + + + | Specimen | + + | Blood | + + + + + + + | Performing | Address | City/State/Zipcode | Phone Number | | Organization | | | | + + + + + | [facility] | [address] | [place] [address] | [phone] | + + + + + Magnesium (02/28/2019 4:39 AM PST) + + + + + + | Component | Value | Ref Range | Performed | Pathologist | | | | | At | Signature | + + + + + + | Magnesium | 2.0Comment: Testing | 1.7 - 2.4 mg/dL | [facility] | | | | performed at [facility], [address] | | LABORATORY | | | | [address], | | | | | | [place] [address] | | | | + + + + + + + + | Specimen | + + | Blood | + + + + + + + | Performing | Address | City/State/Zipcode | Phone Number | | Organization | | | | + + + + + | [facility] | [address] | [place] [address] | [phone] | + + + + + CBC with Differential (02/28/2019 4:39 AM PST) + + + + + + | Component | Value | Ref Range | Performed | Pathologist | | | | | At | Signature | + + + + + + | WBC | 10.81 | 3.80 - 11.00 | [facility] | [...] (H)Comment: Testing | 0.00 - 0.10 | [facility] | | | Absolute | performed at [facility], [address] | [address] | LABORATORY | | | | [address], | | | | | | [place] [address] | | | | + + + + + + + + | Specimen | + + | Blood | + + + + + + + | Performing | Address | City/State/Zipcode | Phone Number | | Organization | | | | + + + + + | [facility] | [address] | [place] [address] | [phone] | + + + + + Basic [...] 40 (L)Comment: GFR <60: | >60 | [facility] | | | GFR | CHRONIC [...] | | | | | [facility] traceable | | | | | | equation.Testing | | | | | | performed at [facility], [address] | | | | | | [facility], | | | | | | [place] [address] | | | | + + + + + + + + | Specimen | + + | Blood | + + + + + + + | Performing | Address | City/State/Zipcode | Phone Number | | Organization | | | | + + + + + | [facility] | [address] | [place] [address] | [phone] | + + + + + POC Glucose (02/27/2019 9:10 PM PST) + + + + + + | Component | Value | Ref Range | Performed | Pathologist | | | | | At | Signature | + + + + + + | Glucose, | 115 (H)Comment: Testing | 65 - 99 mg/dL | [facility] | | | POC | performed at [facility];[address] | | LABORATORY | | | | [address];[place] | | | | | | [address] | | | | + + + + + + + + | Specimen | + + | | + + + + + + + | Performing | Address | City/State/Zipcode | Phone Number | | Organization | | | | + + + + + | [facility] | [address] | [place] [address] | [phone] | + + + + + POC [...] | | | POC | performed at [facility];[address] | | LABORATORY | | | | [address];[place] | | | | | | [address] | | | | + + + + + + + + | Specimen | + + | | + + + + + + + | Performing | Address | City/State/Zipcode | Phone Number | | Organization | | | | + + + + + | [facility] | [address] | [place] [address] | [phone] | + + + + + POC [...] | | | POC | performed at [facility];[address] | | LABORATORY | | | | [address];[place], [place] | | | | | | [address] | | | | + + + + + + + + | Specimen | + + | | + + + + + + + | Performing | Address | City/State/Zipcode | Phone Number | | Organization | | | | + + + + + | [facility] | [address] | [place] [address] | [phone] | + + + + + POC [...] | | | POC | performed at [facility];[address] | | LABORATORY | | | | [address];[place] | | | | | | [address] | | | | + + + + + + + + | Specimen | + + | | + + + + + + + | Performing | Address | City/State/Zipcode | Phone Number | | Organization | | | | + + + + + | [facility] | [address] | [place] [address] | [phone] | + + + + + POC [...] | | | POC | performed at [facility];[address] | | LABORATORY | | | | [address];[place] | | | | | | [address] | | | | + + + + + + + + | Specimen | + + | | + + + + + + + | Performing | Address | City/State/Zipcode | Phone Number | | Organization | | | | + + + + + | [facility] | [address] | [place] [address] | [phone] | + + + + + Protime INR (02/27/2019 3:49 AM PST) + + + + + + | Component | Value | Ref Range | Performed | Pathologist | | | | | At | Signature | + + + + + + | INR | 2.7Comment: REFERENCE | | [facility] | | | [...] | | | | | performed at [facility] | | | | | | [address] [facility];[place], [place] | | | | | | [address] | | | | + + + + + + + + | Specimen | + + | Blood | + + + + + + + | Performing | Address | City/State/Zipcode | Phone Number | | Organization | | | | + + + + + | [facility] | [address] | [place] [address] | [phone] | + + + + + Magnesium (02/27/2019 3:49 AM PST) + + + + + + | Component | Value | Ref Range | Performed | Pathologist | | | | | At | Signature | + + + + + + | Magnesium | 2.0Comment: Testing | 1.7 - 2.4 mg/dL | [facility] | | | | performed at [facility], [address] | | LABORATORY | | | | [address], | | | | | | [place] [address] | | | | + + + + + + + + | Specimen | + + | Blood | + + + + + + + | Performing | Address | City/State/Zipcode | Phone Number | | Organization | | | | + + + + + | [facility] | [address] | [place] [address] | [phone] | + + + + + CBC [...] | | | Absolute | performed at [facility], [address] | [address] | LABORATORY | | | | [facility] | | | | | | [place] [address] | | | | + + + + + + + + | Specimen | + + | Blood | + + + + + + + | Performing | Address | City/State/Zipcode | Phone Number | | Organization | | | | + + + + + | [facility] | [address] | [place] [address] | [phone] | + + + + + Basic [...] 32 (L)Comment: GFR <60: | >60 | [facility] [...] | | | | | performed at [facility], [address] | | | | | | [facility], | | | | | | [place] [address] | | | | + + + + + + + + | Specimen | + + | Blood | + + + + + + + | Performing | Address | City/State/Zipcode | Phone Number | | Organization | | | | + + + + + | [facility] | [address] | [place] [address] | [phone] | + + + + + POC Glucose (02/26/2019 8:34 PM PST) + + + + + + | Component | Value | Ref Range | Performed | Pathologist | | | | | At | Signature | + + + + + + | Glucose, | 153 (H)Comment: Testing | 65 - 99 mg/dL | [facility] | | | POC | performed at [facility];[address] | | LABORATORY | | | | [address];[place] | | | | | | [address] | | | | + + + + + + + + | Specimen | + + | | + + + + + + + | Performing | Address | City/State/Zipcode | Phone Number | | Organization | | | | + + + + + | [facility] | [address] | [place] [address] | [phone] | + + + + + POC [...] | | | POC | performed at [facility];[address] | | LABORATORY | | | | [address];[place], [place] | | | | | | [address] | | | | + + + + + + + + | Specimen | + + | | + + + + + + + | Performing | Address | City/State/Zipcode | Phone Number | | Organization | | | | + + + + + | [facility] | [address] | [place] [address] | [phone] | + + + + + POC Glucose (02/26/2019 11:45 AM PST) + + + + + + | Component | Value | Ref Range | Performed | Pathologist | | | | | At | Signature | + + + + + + | Glucose, | 119 (H)Comment: Testing | 65 - 99 mg/dL | [facility] | | | POC | performed at [facility];[address] | | LABORATORY | | | | [address];[place] | | | | | | [address] | | | | + + + + + + + + | Specimen | + + | | + + + + + + + | Performing | Address | City/State/Zipcode | Phone Number | | Organization | | | | + + + + + | [facility] | [address] | [place] [address] | [phone] | + + + + + POC Glucose (02/26/2019 7:41 AM PST) + + + + + + | Component | Value | Ref Range | Performed | Pathologist | | | | | At | Signature | + + + + + + | Glucose, | 164 (H)Comment: Testing | 65 - 99 mg/dL | [facility] | | | POC | performed at [facility];[address] | | LABORATORY | | | | [address];[place] | | | | | | [address] | | | | + + + + + + + + | Specimen | + + | | + + + + + + + | Performing | Address | City/State/Zipcode | Phone Number | | Organization | | | | + + + + + | [facility] | [address] | [place] [address] | [phone] | + + + + + Protime INR (02/26/2019 4:04 AM PST) + + + + + + | Component | Value | Ref Range | Performed | Pathologist | | | | | At | Signature | + + + + + + | INR | 2.9Comment: REFERENCE | | [facility] | | | [...] | | | | | performed at [facility];[address] | | | | | | [address] [facility];[place], [place] | | | | | | [address] | | | | + + + + + + + + | Specimen | + + | Blood | + + + + + + + | Performing | Address | City/State/Zipcode | Phone Number | | Organization | | | | + + + + + | [facility] | [address] | [place] [address] | [phone] | + + + + + Magnesium (02/26/2019 4:04 AM PST) + + + + + + | Component | Value | Ref Range | Performed | Pathologist | | | | | At | Signature | + + + + + + | Magnesium | 2.0Comment: Testing | 1.7 - 2.4 mg/dL | [facility] | | | | performed at [facility], [address] | | LABORATORY | | | | [address], | | | | | | [place] [address] | | | | + + + + + + + + | Specimen | + + | Blood | + + + + + + + | Performing | Address | City/State/Zipcode | Phone Number | | Organization | | | | + + + + + | [facility] | [address] | [place] [address] | [phone] | + + + + + CBC [...] 0.08Comment: Testing | 0.00 - 0.10 | [facility] | | | Absolute | performed at [facility], [address] | [address] | LABORATORY | | | | [address], | | | | | | [place] [address] | | | | + + + + + + + + | Specimen | + + | Blood | + + + + + + + | Performing | Address | City/State/Zipcode | Phone Number | | Organization | | | | + + + + + | [facility] | [address] | [place] [address] | [phone] | + + + + + Basic [...] | | | | | performed at [facility], [address] | | | | | | [facility], | | | | | | [place] [address] | | | | + + + + + + + + | Specimen | + + | Blood | + + + + + + + | Performing | Address | City/State/Zipcode | Phone Number | | Organization | | | | + + + + + | [facility] | [address] | [place] [address] | [phone] | + + + + + POC [...] | | | POC | performed at [facility];[address] | | LABORATORY | | | | [address];[place], [place] | | | | | | [address] | | | | + + + + + + + + | Specimen | + + | | + + + + + + + | Performing | Address | City/State/Zipcode | Phone Number | | Organization | | | | + + + + + | [facility] | [address] | [place] [address] | [phone] | + + + + + Clostridium difficile DNA amplified (02/25/2019 5:42 PM PST) + + + + + + | Component | Value | Ref Range | Performed | Pathologist | | | | | At | Signature | + + + + + + | C. Diff | NEGATIVE | [facility] | [facility] | | | Toxin A/B, | | | LABORATORY | | | NAAT | | | | | + + + + + + | C Diff | 027 NAP1 BI PRESUMPTIVE | | [facility] | | | Strain | NEGATIVEComment: | | LABORATORY | | | [id number] | Detection of 027 NAP1 BI | [...] | | | | | performed at [facility];[address] | | | | | | [facility];[place], [place] | | | | | | [address] | | | | + + + + + + + + | Specimen | + + | Stool - Stool | | specimen (specimen) | + + + + + + + | Performing | Address | City/State/Zipcode | Phone Number | | Organization | | | | + + + + + | [facility] | [address] | [place] [address] | [phone] | + + + + + POC [...] | | | POC | performed at [facility];[address] | | LABORATORY | | | | [address];[place] | | | | | | [address] | | | | + + + + + + + + | Specimen | + + | | + + + + + + + | Performing | Address | City/State/Zipcode | Phone Number | | Organization | | | | + + + + + | [facility] | [address] | [place] [address] | [phone] | + + + + + POC Glucose (02/25/2019 12:05 PM PST) + + + + + + | Component | Value | Ref Range | Performed | Pathologist | | | | | At | Signature | + + + + + + | Glucose, | 242 (H)Comment: Testing | 65 - 99 mg/dL | [facility] | | | POC | performed at [facility];[address] | | LABORATORY | | | | [address];[place] | | | | | | [address] | | | | + + + + + + + + | Specimen | + + | | + + + + + + + | Performing | Address | City/State/Zipcode | Phone Number | | Organization | | | | + + + + + | [facility] | [address] | [place] [address] | [phone] | + + + + + Clostridium [...] | C. | Indeterminant, repeat | | [facility] | | | difficile, | with fresh | | LABORATORY | | | Interp | sample.Comment: Testing | | | | | | performed at [facility] | | | | | | [facility];[place], [place] | | | | | | [address] | | | | + + + + + + + + | Specimen | + + | | + + + + + + + | Performing | Address | City/State/Zipcode | Phone Number | | Organization | | | | + + + + + | [facility] | [address] | [place] [address] | [phone] | + + + + + POC Glucose (02/25/2019 7:41 AM PST) + + + + + + | Component | Value | Ref Range | Performed | Pathologist | | | | | At | Signature | + + + + + + | Glucose, | 147 (H)Comment: Testing | 65 - 99 mg/dL | [facility] | | | POC | performed at [facility];[address] | | LABORATORY | | | | [address];[place], [place] | | | | | | [address] | | | | + + + + + + + + | Specimen | + + | | + + + + + + + | Performing | Address | City/State/Zipcode | Phone Number | | Organization | | | | + + + + + | [facility] | [address] | [place] [address] | [phone] | + + + + + POC [...] | | | POC | performed at [facility];[address] | | LABORATORY | | | | [address];[place], [place] | | | | | | [address] | | | | + + + + + + + + | Specimen | + + | | + + + + + + + | Performing | Address | City/State/Zipcode | Phone Number | | Organization | | | | + + + + + | [facility] | [address] | [place] [address] | [phone] | + + + + + Hepatic [...] Testing | 10 - 65 U/L | [facility] | | | | performed at [facility], [address] | | LABORATORY | | | | [address], | | | | | | [place] [address] | | | | + + + + + + + + | Specimen | + + | Blood | + + + + + + + | Performing | Address | City/State/Zipcode | Phone Number | | Organization | | | | + + + + + | [facility] | [address] | [place] [address] | [phone] | + + + + + Protime INR (02/25/2019 4:07 AM PST) + + + + + + | Component | Value | Ref Range | Performed | Pathologist | | | | | At | Signature | + + + + + + | INR | 2.2Comment: REFERENCE | | [facility] | | | [...] | | | | | performed at [facility] | | | | | | [address];[place], [place] | | | | | | [address] | | | | + + + + + + + + | Specimen | + + | Blood | + + + + + + + | Performing | Address | City/State/Zipcode | Phone Number | | Organization | | | | + + + + + | [facility] | [address] | [place] [address] | [phone] | + + + + + Magnesium (02/25/2019 4:07 AM PST) + + + + + + | Component | Value | Ref Range | Performed | Pathologist | | | | | At | Signature | + + + + + + | Magnesium | 2.0Comment: Testing | 1.7 - 2.4 mg/dL | [facility] | | | | performed at [facility], [address] | | LABORATORY | | | | [address], | | | | | | [place] [address] | | | | + + + + + + + + | Specimen | + + | Blood | + + + + + + + | Performing | Address | City/State/Zipcode | Phone Number | | Organization | | | | + + + + + | [facility] | [address] | [place] [address] | [phone] | + + + + + CBC [...] | | | Absolute | performed at [facility], [address] | K/uL | LABORATORY | | | | [facility], | | | | | | [place] [address] | | | | + + + + + + + + | Specimen | + + | Blood | + + + + + + + | Performing | Address | City/State/Zipcode | Phone Number | | Organization | | | | + + + + + | [facility] | [address] | [place] [address] | [phone] | + + + + + Basic [...] | LABORATORY | | | | [address] [id number] CMS | | | | | |[address] 0733 [id number] CMS | | | | | | [...] | | | | | performed at [facility], [address] | | | | | | [address], | | | | | | [place] [address] | | | | + + + + + + + + | Specimen | + + | Blood | + + + + + + + | Performing | Address | City/State/Zipcode | Phone Number | | Organization | | | | + + + + + | [facility] | [address] | [place] [address] | [phone] | + + + + + POC [...] | | | POC | performed at [facility];[address] | | LABORATORY | | | | [address];[place], [place] | | | | | | [address] | | | | + + + + + + + + | Specimen | + + | | + + + + + + + | Performing | Address | City/State/Zipcode | Phone Number | | Organization | | | | + + + + + | [facility] | [address] | [place] [address] | [phone] | + + + + + POC Glucose (02/24/2019 4:29 PM PDT) + + + + + + | Component | Value | Ref Range | Performed | Pathologist | | | | | At | Signature | + + + + + + | Glucose, | 170 (H)Comment: Testing | 65 - 99 mg/dL | [facility] | | | POC | performed at [facility];[address] | | LABORATORY | | | | [address];[place] | | | | | | [address] | | | | + + + + + + + + | Specimen | + + | | + + + + + + + | Performing | Address | City/State/Zipcode | Phone Number | | Organization | | | | + + + + + | [facility] | [address] | [place] [address] | [phone] | + + + + + POC Glucose (02/24/2019 1:07 PM PDT) + + + + + + | Component | Value | Ref Range | Performed | Pathologist | | | | | At | Signature | + + + + + + | Glucose, | 179 (H)Comment: Testing | 65 - 99 mg/dL | [facility] | | | POC | performed at [facility];[address] | | LABORATORY | | | | [address];[place], [place] | | | | | | [address] | | | | + + + + + + + + | Specimen | + + | | + + + + + + + | Performing | Address | City/State/Zipcode | Phone Number | | Organization | | | | + + + + + | [facility] | [address] | [place] [address] | [phone] | + + + + + POC [...] | | | POC | performed at [facility];[address] | | LABORATORY | | | | [address];[place], [place] | | | | | | [address] | | | | + + + + + + + + | Specimen | + + | | + + + + + + + | Performing | Address | City/State/Zipcode | Phone Number | | Organization | | | | + + + + + | [facility] | [address] | [place] [address] | [phone] | + + + + + Protime INR (02/24/2019 4:22 AM PDT) + + + + + + | Component | Value | Ref Range | Performed | Pathologist | | | | | At | Signature | + + + + + + | INR | 1.7Comment: REFERENCE | | [facility] | | | | RANGE:0.9 - [...] | | | | | performed at [facility];[address] | | | | | | [facility];[place], [place] | | | | | | [address] | | | | + + + + + + + + | Specimen | + + | Blood | + + + + + + + | Performing | Address | City/State/Zipcode | Phone Number | | Organization | | | | + + + + + | [facility] | [address] | [place] [address] | [phone] | + + + + + Magnesium [...] | | | | | [place] [address] | | | | + + + + + + + + | Specimen | + + | Blood | + + + + + + + | Performing | Address | City/State/Zipcode | Phone Number | | Organization | | | | + + + + + | [facility] | [address] | [place] [address] | [phone] | + + + + + CBC [...] 0.09Comment: Testing | 0.00 - 0.10 | [facility] | | | Absolute | performed at [facility], [address] | K/uL | LABORATORY | | | | [address], | | | | | | [place] [address] | | | | + + + + + + + + | Specimen | + + | Blood | + + + + + + + | Performing | Address | City/State/Zipcode | Phone Number | | Organization | | | | + + + + + | [facility] | [address] | [place] [address] | [phone] | + + + + + Basic [...] | | | | | performed at [facility], [address] | | | | | | [facility], | | | | | | [place] [address] | | | | + + + + + + + + | Specimen | + + | Blood | + + + + + + + | Performing | Address | City/State/Zipcode | Phone Number | | Organization | | | | + + + + + | [facility] | [address] | [place] [address] | [phone] | + + + + + PTT (02/24/2019 4:22 AM PDT) + + + + + + | Component | Value | Ref Range | Performed | Pathologist | | | | | At | Signature | + + + + + + | PTT | 90 (HH)Comment: CALLED | 23 - 32 seconds | [facility] | | | | NURSING UNITREAD BACK | | LABORATORY | | | | RESULTS VERIFIEDYESSICA | | | | | | O IN 9RP AT 0542 BY | | | | | | TDTesting performed at | | | | | | [facility];[address];[place] [address] | | | | + + + + + + + + | Specimen | + + | Blood | + + + + + + + | Performing | Address | City/State/Zipcode | Phone Number | | Organization | | | | + + + + + | [facility] | [address] | [place] [address] | [phone] | + + + + + Potassium (02/23/2019 9:19 PM PDT) + + + + + + | Component | Value | Ref Range | Performed | Pathologist | | | | | At | Signature | + + + + + + | K | 4.8Comment: Testing | 3.5 - 4.9 | [facility] | | | | performed at [facility];[address] | mmol/L | LABORATORY | | | | [address];[place] | | | | | | [address] | | | | + + + + + + + + | Specimen | + + | Blood | + + + + + + + | Performing | Address | City/State/Zipcode | Phone Number | | Organization | | | | + + + + + | [facility] | [address] | [place] [address] | [phone] | + + + + + POC Glucose (02/23/2019 9:12 PM PDT) + + + + + + | Component | Value | Ref Range | Performed | Pathologist | | | | | At | Signature | + + + + + + | Glucose, | 169 (H)Comment: Testing | 65 - 99 mg/dL | [facility] | | | POC | performed at [facility];[address] | | LABORATORY | | | | [address];[place] | | | | | | [address] | | | | + + + + + + + + | Specimen | + + | | + + + + + + + | Performing | Address | City/State/Zipcode | Phone Number | | Organization | | | | + + + + + | [facility] | [address] | [place] [address] | [phone] | + + + + + POC [...] | | | POC | performed at [facility];[address] | | LABORATORY | | | | [address];[place], [place] | | | | | | [address] | | | | + + + + + + + + | Specimen | + + | | + + + + + + + | Performing | Address | City/State/Zipcode | Phone Number | | Organization | | | | + + + + + | [facility] | [address] | [place] [address] | [phone] | + + + + + POC [...] | | | POC | performed at [facility];[address] | | LABORATORY | | | | [address];[place] | | | | | | [address] | | | | + + + + + + + + | Specimen | + + | | + + + + + + + | Performing | Address | City/State/Zipcode | Phone Number | | Organization | | | | + + + + + | [facility] | [address] | [place] [address] | [phone] | + + + + + POC Glucose (02/23/2019 9:29 AM PDT) + + + + + + | Component | Value | Ref Range | Performed | Pathologist | | | | | At | Signature | + + + + + + | Glucose, | 165 (H)Comment: Testing | 65 - 99 mg/dL | [facility] | | | POC | performed at [facility];[address] | | LABORATORY | | | | [address];[place] | | | | | | [address] | | | | + + + + + + + + | Specimen | + + | | + + + + + + + | Performing | Address | City/State/Zipcode | Phone Number | | Organization | | | | + + + + + | [facility] | [address] | [place] [address] | [phone] | + + + + + PTT (02/23/2019 4:24 AM PDT) + + + + + + | Component | Value | Ref Range | Performed | Pathologist | | | | | At | Signature | + + + + + + | PTT | 56 (H)Comment: Testing | 23 - 32 seconds | [facility] | | | | performed at [facility];[address] | | LABORATORY | | | | [address];[place] | | | | | | [address] | | | | + + + + + + + + | Specimen | + + | | + + + + + + + | Performing | Address | City/State/Zipcode | Phone Number | | Organization | | | | + + + + + | [facility] | [address] | [place] [address] | [phone] | + + + + + Protime INR (02/23/2019 4:24 AM PDT) + + + + + + | Component | Value | Ref Range | Performed | Pathologist | | | | | At | Signature | + + + + + + | INR | 1.2Comment: REFERENCE | | [facility] | | | [...] | | | | | performed at [facility];[address] | | | | | | [address];[place] | | | | | | [address] | | | | + + + + + + + + | Specimen | + + | Blood | + + + + + + + | Performing | Address | City/State/Zipcode | Phone Number | | Organization | | | | + + + + + | [facility] | [address] | [place] [address] | [phone] | + + + + + Magnesium (02/23/2019 4:24 AM PDT) + + + + + + | Component | Value | Ref Range | Performed | Pathologist | | | | | At | Signature | + + + + + + | Magnesium | 2.0Comment: Testing | 1.7 - 2.4 mg/dL | [facility] | | | | performed at [facility], [address] | | LABORATORY | | | | [address], | | | | | | [place] [address] | | | | + + + + + + + + | Specimen | + + | Blood | + + + + + + + | Performing | Address | City/State/Zipcode | Phone Number | | Organization | | | | + + + + + | [facility] | [address] | [place] [address] | [phone] | + + + + + CBC with Differential (02/23/2019 4:24 AM PDT) + + + + + + | Component | Value | Ref Range | Performed | Pathologist | | | | | At | Signature | + + + + + + | WBC | 10.49 | 3.80 - 11.00 | [facility] | | | | | K/uL | [...] | | | Absolute | performed at [facility], [address] | K/uL | LABORATORY | | | | [facility], | | | | | | [place] [address] | | | | + + + + + + + + | Specimen | + + | Blood | + + + + + + + | Performing | Address | City/State/Zipcode | Phone Number | | Organization | | | | + + + + + | [facility] | [address] | [place] [address] | [phone] | + + + + + Basic [...] 53 (L)Comment: GFR <60: | >60 | [facility] | | | GFR | CHRONIC [...] | | | | | performed at [facility], [address] | | | | | | [facility], | | | | | | [place] [address] | | | | + + + + + + + + | Specimen | + + | Blood | + + + + + + + | Performing | Address | City/State/Zipcode | Phone Number | | Organization | | | | + + + + + | [facility] | [address] | [place] [address] | [phone] | + + + + + PTT (02/22/2019 10:58 PM PDT) + + + + + + | Component | Value | Ref Range | Performed | Pathologist | | | | | At | Signature | + + + + + + | PTT | 50 (H)Comment: Testing | 23 - 32 seconds | [facility] | | | | performed at [facility];[address] | | LABORATORY | | | | [address];[place] | | | | | | [address] | | | | + + + + + + + + | Specimen | + + | Blood | + + + + + + + | Performing | Address | City/State/Zipcode | Phone Number | | Organization | | | | + + + + + | [facility] | [address] | [place] [address] | [phone] | + + + + + POC [...] | | | POC | performed at [facility];[address] | | LABORATORY | | | | [address];[place] | | | | | | [address] | | | | + + + + + + + + | Specimen | + + | | + + + + + + + | Performing | Address | City/State/Zipcode | Phone Number | | Organization | | | | + + + + + | [facility] | [address] | [place] [address] | [phone] | + + + + + POC [...] | | | POC | performed at [facility];[address] | | LABORATORY | | | | [address];[place], [place] | | | | | | [address] | | | | + + + + + + + + | Specimen | + + | | + + + + + + + | Performing | Address | City/State/Zipcode | Phone Number | | Organization | | | | + + + + + | [facility] | [address] | [place] [address] | [phone] | + + + + + PTT (02/22/2019 4:55 PM PDT) + + + + + + | Component | Value | Ref Range | Performed | Pathologist | | | | | At | Signature | + + + + + + | PTT | 41 (H)Comment: Testing | 23 - 32 seconds | [facility] | | | | performed at [facility];[address] | | LABORATORY | | | | [address];[place] | | | | | | [address] | | | | + + + + + + + + | Specimen | + + | Blood | + + + + + + + | Performing | Address | City/State/Zipcode | Phone Number | | Organization | | | | + + + + + | [facility] | [address] | [place] [address] | [phone] | + + + + + Potassium (02/22/2019 12:15 PM PDT) + + + + + + | Component | Value | Ref Range | Performed | Pathologist | | | | | At | Signature | + + + + + + | K | 4.0Comment: Testing | 3.5 - 4.9 | [facility] | | | | performed at [facility];[address] | mmol/L | LABORATORY | | | | [address];[place], [place] | | | | | | [address] | | | | + + + + + + + + | Specimen | + + | Blood | + + + + + + + | Performing | Address | City/State/Zipcode | Phone Number | | Organization | | | | + + + + + | [facility] | [address] | [place] [address] | [phone] | + + + + + POC [...] | | | POC | performed at [facility];[address] | | LABORATORY | | | | [address];[place] | | | | | | [address] | | | | + + + + + + + + | Specimen | + + | | + + + + + + + | Performing | Address | City/State/Zipcode | Phone Number | | Organization | | | | + + + + + | [facility] | [address] | [place] [address] | [phone] | + + + + + PTT (02/22/2019 10:19 AM PDT) + + + + + + | Component | Value | Ref Range | Performed | Pathologist | | | | | At | Signature | + + + + + + | PTT | 31Comment: Testing | 23 - 32 seconds | [facility] | | | | performed at [facility];[address] | | LABORATORY | | | | [address];[place] | | | | | | [address] | | | | + + + + + + + + | Specimen | + + | Blood | + + + + + + + | Performing | Address | City/State/Zipcode | Phone Number | | Organization | | | | + + + + + | [facility] | [address] | [place] [address] | [phone] | + + + + + POC Glucose (02/22/2019 7:49 AM PDT) + + + + + + | Component | Value | Ref Range | Performed | Pathologist | | | | | At | Signature | + + + + + + | Glucose, | 188 (H)Comment: Testing | 65 - 99 mg/dL | [facility] | | | POC | performed at [facility];[address] | | LABORATORY | | | | [address];[place] | | | | | | [address] | | | | + + + + + + + + | Specimen | + + | | + + + + + + + | Performing | Address | City/State/Zipcode | Phone Number | | Organization | | | | + + + + + | [facility] | [address] | [place] [address] | [phone] | + + + + + Protime [...] | | | | | performed at [facility] | | | | | | [facility];[place], [place] | | | | | | [address] | | | | + + + + + + + + | Specimen | + + | Blood | + + + + + + + | Performing | Address | City/State/Zipcode | Phone Number | | Organization | | | | + + + + + | [facility] | [address] | [place] [address] | [phone] | + + + + + Magnesium (02/22/2019 4:02 AM PDT) + + + + + + | Component | Value | Ref Range | Performed | Pathologist | | | | | At | Signature | + + + + + + | Magnesium | 1.8Comment: Testing | 1.7 - 2.4 mg/dL | [facility] | | | | performed at [facility], [address] | | LABORATORY | | | | [address], | | | | | | [place] [address] | | | | + + + + + + + + | Specimen | + + | Blood | + + + + + + + | Performing | Address | City/State/Zipcode | Phone Number | | Organization | | | | + + + + + | [facility] | [address] | [place] [address] | [phone] | + + + + + CBC with Differential (02/22/2019 4:02 AM PDT) + + + + + + | Component | Value | Ref Range | Performed | Pathologist | | | | | At | Signature | + + + + + + | WBC | 11.18 (H) | 3.80 - 11.00 | [facility] [...] | | | Absolute | performed at [facility], [address] | K/uL | LABORATORY | | | | [address], | | | | | | [place] [address] | | | | + + + + + + + + | Specimen | + + | Blood | + + + + + + + | Performing | Address | City/State/Zipcode | Phone Number | | Organization | | | | + + + + + | [facility] | [address] | [place] [address] | [phone] | + + + + + Basic [...] 58 (L)Comment: GFR <60: | >60 | [facility] [...] | | | | | performed at [facility], [address] | | | | | | [address], | | | | | | [place] [address] | | | | + + + + + + + + | Specimen | + + | Blood | + + + + + + + | Performing | Address | City/State/Zipcode | Phone Number | | Organization | | | | + + + + + | [facility] | [address] | [place] [address] | [phone] | + + + + + POC [...] | | | POC | performed at [facility];[address] | | LABORATORY | | | | [address];[place] | | | | | | [address] | | | | + + + + + + + + | Specimen | + + | | + + + + + + + | Performing | Address | City/State/Zipcode | Phone Number | | Organization | | | | + + + + + | [facility] | [address] | [place] [address] | [phone] | + + + + + POC [...] | | | POC | performed at [facility] [place];[address] | | LABORATORY | | | | [address];[place] | | | | | | [address] | | | | + + + + + + + + | Specimen | + + | | + + + + + + + | Performing | Address | City/State/Zipcode | Phone Number | | Organization | | | | + + + + + | [facility] | [address] | [place] [address] | [phone] | + + + + + Protime INR (02/21/2019 3:01 PM PDT) + + + + + + | Component | Value | Ref Range | Performed | Pathologist | | | | | At | Signature | + + + + + + | INR | 1.1Comment: REFERENCE | | [facility] | | | | RANGE:0.9 - [...] | | | | | performed at [facility] [place];[address] | | | | | | [address];[place] | | | | | | [address] | | | | + + + + + + + + | Specimen | + + | Blood | + + + + + + + | Performing | Address | City/State/Zipcode | Phone Number | | Organization | | | | + + + + + | [facility] | [address] | [place] [address] | [phone] | + + + + + POC Glucose (02/21/2019 12:39 PM PDT) + + + + + + | Component | Value | Ref Range | Performed | Pathologist | | | | | At | Signature | + + + + + + | Glucose, | 93Comment: Testing | 65 - 99 mg/dL | [facility] | | | POC | performed at [facility];[address] | | LABORATORY | | | | [address];[place], [place] | | | | | | [address] | | | | + + + + + + + + | Specimen | + + | | + + + + + + + | Performing | Address | City/State/Zipcode | Phone Number | | Organization | | | | + + + + + | [facility] | [address] | [place] [address] | [phone] | + + + + + ECHO [...] | | | POC | performed at [facility];[address] | | LABORATORY | | | | [address];[place] | | | | | | [address] | | | | + + + + + + + + | Specimen | + + | | + + + + + + + | Performing | Address | City/State/Zipcode | Phone Number | | Organization | | | | + + + + + | [facility] | [address] | [place] [address] | [phone] | + + + + + POC Glucose (02/21/2019 8:10 AM PDT) + + + + + + | Component | Value | Ref Range | Performed | Pathologist | | | | | At | Signature | + + + + + + | Glucose, | 205 (H)Comment: Testing | 65 - 99 mg/dL | [facility] | | | POC | performed at [facility];[address] | | LABORATORY | | | | [address];[place] | | | | | | [address] | | | | + + + + + + + + | Specimen | + + | | + + + + + + + | Performing | Address | City/State/Zipcode | Phone Number | | Organization | | | | + + + + + | [facility] | [address] | [place] [address] | [phone] | + + + + + Magnesium (02/21/2019 5:46 AM PDT) + + + + + + | Component | Value | Ref Range | Performed | Pathologist | | | | | At | Signature | + + + + + + | Magnesium | 2.0Comment: Testing | 1.7 - 2.4 mg/dL | [facility] | | | | performed at [facility], [address] | | LABORATORY | | | | [address], | | | | | | [place] [address] | | | | + + + + + + + + | Specimen | + + | Blood | + + + + + + + | Performing | Address | City/State/Zipcode | Phone Number | | Organization | | | | + + + + + | [facility] | [address] | [place] [address] | [phone] | + + + + + Basic [...] 53 (L)Comment: GFR <60: | >60 | [facility] | | | GFR | CHRONIC [...] | | | | | performed at [facility], [address] | | | | | | [facility], | | | | | | [place] [address] | | | | + + + + + + + + | Specimen | + + | Blood | + + + + + + + | Performing | Address | City/State/Zipcode | Phone Number | | Organization | | | | + + + + + | [facility] | [address] | [place] [address] | [phone] | + + + + + CBC [...] | | | Absolute | performed at [facility], [address] | K/uL | LABORATORY | | | | [address], | | | | | | [place] [address] | | | | + + + + + + + + | Specimen | + + | Blood | + + + + + + + | Performing | Address | City/State/Zipcode | Phone Number | | Organization | | | | + + + + + | [facility] | [address] | [place] [address] | [phone] | + + + + + POC Glucose (02/20/2019 9:21 PM PDT) + + + + + + | Component | Value | Ref Range | Performed | Pathologist | | | | | At | Signature | + + + + + + | Glucose, | 176 (H)Comment: Testing | 65 - 99 mg/dL | [facility] | | | POC | performed at [facility];[address] | | LABORATORY | | | | [address];[place] | | | | | | [address] | | | | + + + + + + + + | Specimen | + + | | + + + + + + + | Performing | Address | City/State/Zipcode | Phone Number | | Organization | | | | + + + + + | [facility] | [address] | [place] [address] | [phone] | + + + + + POC Glucose (02/20/2019 6:24 PM PDT) + + + + + + | Component | Value | Ref Range | Performed | Pathologist | | | | | At | Signature | + + + + + + | Glucose, | 178 (H)Comment: Testing | 65 - 99 mg/dL | [facility] | | | POC | performed at [facility];[address] | | LABORATORY | | | | [address];[place], [place] | | | | | | [address] | | | | + + + + + + + + | Specimen | + + | | + + + + + + + | Performing | Address | City/State/Zipcode | Phone Number | | Organization | | | | + + + + + | [facility] | [address] | [place] [address] | [phone] | + + + + + POC [...] | | | POC | performed at [facility];[address] | | LABORATORY | | | | [address];[place], [place] | | | | | | [address] | | | | + + + + + + + + | Specimen | + + | | + + + + + + + | Performing | Address | City/State/Zipcode | Phone Number | | Organization | | | | + + + + + | [facility] | [address] | [place] [address] | [phone] | + + + + + POC [...] | | | POC | performed at [facility];[address] | | LABORATORY | | | | [address];[place] | | | | | | [address] | | | | + + + + + + + + | Specimen | + + | | + + + + + + + | Performing | Address | City/State/Zipcode | Phone Number | | Organization | | | | + + + + + | [facility] | [address] | [place] [address] | [phone] | + + + + + POC Glucose (02/20/2019 8:38 AM PDT) + + + + + + | Component | Value | Ref Range | Performed | Pathologist | | | | | At | Signature | + + + + + + | Glucose, | 165 (H)Comment: Testing | 65 - 99 mg/dL | [facility] | | | POC | performed at [facility];[address] | | LABORATORY | | | | [address];[place] | | | | | | [address] | | | | + + + + + + + + | Specimen | + + | | + + + + + + + | Performing | Address | City/State/Zipcode | Phone Number | | Organization | | | | + + + + + | [facility] | [address] | [place] [address] | [phone] | + + + + + XR [...] Testing | 1.7 - 2.4 mg/dL | [facility] | | | | performed at [facility], [address] | | LABORATORY | | | | [address], | | | | | | [place] [address] | | | | + + + + + + + + | Specimen | + + | Blood | + + + + + + + | Performing | Address | City/State/Zipcode | Phone Number | | Organization | | | | + + + + + | [facility] | [address] | [place] [address] | [phone] | + + + + + CBC [...] | | | Absolute | performed at [facility], [address] | K/uL | LABORATORY | | | | [address], | | | | | | [place] [address] | | | | + + + + + + + + | Specimen | + + | Blood | + + + + + + + | Performing | Address | City/State/Zipcode | Phone Number | | Organization | | | | + + + + + | [facility] | [address] | [place] [address] | [phone] | + + + + + Basic [...] 8.3 (L) | 8.5 - 10.5 | [facility] | | | | | mg/dL | LABORATORY | | + + + + + + | Estimated | 43 (L)Comment: GFR <60: | >60 | [facility] | | | GFR | CHRONIC [...] | | | | | [facility] traceable | | | | | | equation.Testing | | | | | | performed at [facility], [address] | | | | | | [facility], | | | | | | [place] [address] | | | | + + + + + + + + | Specimen | + + | Blood | + + + + + + + | Performing | Address | City/State/Zipcode | Phone Number | | Organization | | | | + + + + + | [facility] | [address] | [place] [address] | [phone] | + + + + + POC [...] | | | POC | performed at [facility];[address] | | LABORATORY | | | | [address];[place] | | | | | | [address] | | | | + + + + + + + + | Specimen | + + | | + + + + + + + | Performing | Address | City/State/Zipcode | Phone Number | | Organization | | | | + + + + + | [facility] | [address] | [place] [address] | [phone] | + + + + + POC [...] | | | POC | performed at [facility];[address] | | LABORATORY | | | | [address];[place] | | | | | | [address] | | | | + + + + + + + + | Specimen | + + | | + + + + + + + | Performing | Address | City/State/Zipcode | Phone Number | | Organization | | | | + + + + + | [facility] | [address] | [place] [address] | [phone] | + + + + + POC Glucose (02/19/2019 11:34 AM PDT) + + + + + + | Component | Value | Ref Range | Performed | Pathologist | | | | | At | Signature | + + + + + + | Glucose, | 135 (H)Comment: Testing | 65 - 99 mg/dL | [facility] | | | POC | performed at [facility];[address] | | LABORATORY | | | | [address];[place] | | | | | | [address] | | | | + + + + + + + + | Specimen | + + | | + + + + + + + | Performing | Address | City/State/Zipcode | Phone Number | | Organization | | | | + + + + + | [facility] | [address] | [place] [address] | [phone] | + + + + + POC [...] | | | POC | performed at [facility];[address] | | LABORATORY | | | | [address];[place], [place] | | | | | | [address] | | | | + + + + + + + + | Specimen | + + | | + + + + + + + | Performing | Address | City/State/Zipcode | Phone Number | | Organization | | | | + + + + + | [facility] | [address] | [place] [address] | [phone] | + + + + + XR [...] | | | pneumothorax. Signed by: Radha Brasher Zachary Sign | | | Date/Time: 02/19/2019 6:32 [...] | | | | | [place] [address] | | | | + + + + + + + + | Specimen | + + | Blood | + + + + + + + | Performing | Address | City/State/Zipcode | Phone Number | | Organization | | | | + + + + + | [facility] | [address] | [place] [address] | [phone] | + + + + + CBC [...] | | | | | [place] [address] | | | | + + + + + + + + | Specimen | + + | Blood | + + + + + + + | Performing | Address | City/State/Zipcode | Phone Number | | Organization | | | | + + + + + | [facility] | [address] | [place] [address] | [phone] | + + + + + Basic [...] 35 (L)Comment: GFR <60: | >60 | [facility] [...] | | | | | performed at [facility], [address] | | | | | | [facility], | | | | | | [place] [address] | | | | + + + + + + + + | Specimen | + + | Blood | + + + + + + + | Performing | Address | City/State/Zipcode | Phone Number | | Organization | | | | + + + + + | [facility] | [address] | [place] [address] | [phone] | + + + + + POC [...] | | | POC | performed at [facility];[address] | | LABORATORY | | | | [address];[place] | | | | | | [address] | | | | + + + + + + + + | Specimen | + + | | + + + + + + + | Performing | Address | City/State/Zipcode | Phone Number | | Organization | | | | + + + + + | [facility] | [address] | [place] [address] | [phone] | + + + + + POC [...] | | | POC | performed at [facility];[address] | | LABORATORY | | | | [address];[place], [place] | | | | | | [address] | | | | + + + + + + + + | Specimen | + + | | + + + + + + + | Performing | Address | City/State/Zipcode | Phone Number | | Organization | | | | + + + + + | [facility] | [address] | [place] [address] | [phone] | + + + + + POC [...] | | | POC | performed at [facility];[address] | | LABORATORY | | | | [address];[place] | | | | | | [address] | | | | + + + + + + + + | Specimen | + + | | + + + + + + + | Performing | Address | City/State/Zipcode | Phone Number | | Organization | | | | + + + + + | [facility] | [address] | [place] [address] | [phone] | + + + + + POC Glucose (02/18/2019 8:37 AM PDT) + + + + + + | Component | Value | Ref Range | Performed | Pathologist | | | | | At | Signature | + + + + + + | Glucose, | 89Comment: Testing | 65 - 99 mg/dL | [facility] | | | POC | performed at [facility];[address] | | LABORATORY | | | | [address];[place] | | | | | | [address] | | | | + + + + + + + + | Specimen | + + | | + + + + + + + | Performing | Address | City/State/Zipcode | Phone Number | | Organization | | | | + + + + + | [facility] | [address] | [place] [address] | [phone] | + + + + + XR [...] | | | | performed at [facility], [address] | | LABORATORY | | | | [address], | | | | | | [place] [address] | | | | + + + + + + + + | Specimen | + + | Blood | + + + + + + + | Performing | Address | City/State/Zipcode | Phone Number | | Organization | | | | + + + + + | [facility] | [address] | [place] [address] | [phone] | + + + + + CBC [...] | | | | | [place] [address] | | | | + + + + + + + + | Specimen | + + | Blood | + + + + + + + | Performing | Address | City/State/Zipcode | Phone Number | | Organization | | | | + + + + + | [facility] | [address] | [place] [address] | [phone] | + + + + + Basic [...] 7.9 (L) | 8.5 - 10.5 | [facility] | | | | | mg/dL | LABORATORY | | + + + + + + | Estimated | 26 (L)Comment: GFR <60: | >60 | [facility] | | | GFR | CHRONIC [...] | | | | | performed at [facility], [address] | | | | | | [facility], | | | | | | [place] [address] | | | | + + + + + + + + | Specimen | + + | Blood | + + + + + + + | Performing | Address | City/State/Zipcode | Phone Number | | Organization | | | | + + + + + | [facility] | [address] | [place] [address] | [phone] | + + + + + POC Glucose (02/17/2019 10:25 PM PDT) + + + + + + | Component | Value | Ref Range | Performed | Pathologist | | | | | At | Signature | + + + + + + | Glucose, | 140 (H)Comment: Testing | 65 - 99 mg/dL | [facility] | | | POC | performed at [facility];[address] | | LABORATORY | | | | [address];[place] | | | | | | [address] | | | | + + + + + + + + | Specimen | + + | | + + + + + + + | Performing | Address | City/State/Zipcode | Phone Number | | Organization | | | | + + + + + | [facility] | [address] | [place] [address] | [phone] | + + + + + POC [...] | | | POC | performed at [facility];[address] | | LABORATORY | | | | [address];[place], [place] | | | | | | [address] | | | | + + + + + + + + | Specimen | + + | | + + + + + + + | Performing | Address | City/State/Zipcode | Phone Number | | Organization | | | | + + + + + | [facility] | [address] | [place] [address] | [phone] | + + + + + POC Glucose (02/17/2019 1:25 PM PDT) + + + + + + | Component | Value | Ref Range | Performed | Pathologist | | | | | At | Signature | + + + + + + | Glucose, | 139 (H)Comment: Testing | 65 - 99 mg/dL | [facility] | | | POC | performed at [facility];[address] | | LABORATORY | | | | [address];[place] | | | | | | [address] | | | | + + + + + + + + | Specimen | + + | | + + + + + + + | Performing | Address | City/State/Zipcode | Phone Number | | Organization | | | | + + + + + | [facility] | [address] | [place] [address] | [phone] | + + + + + POC Glucose (02/17/2019 9:42 AM PDT) + + + + + + | Component | Value | Ref Range | Performed | Pathologist | | | | | At | Signature | + + + + + + | Glucose, | 99Comment: Testing | 65 - 99 mg/dL | [facility] | | | POC | performed at [facility];[address] | | LABORATORY | | | | [address];[place] | | | | | | [address] | | | | + + + + + + + + | Specimen | + + | | + + + + + + + | Performing | Address | City/State/Zipcode | Phone Number | | Organization | | | | + + + + + | [facility] | [address] | [place] [address] | [phone] | + + + + + Magnesium (02/17/2019 4:44 AM PDT) + + + + + + | Component | Value | Ref Range | Performed | Pathologist | | | | | At | Signature | + + + + + + | Magnesium | 2.8 (H)Comment: Testing | 1.7 - 2.4 mg/dL | [facility] | | | | performed at [facility], [address] | | LABORATORY | | | | [address], | | | | | | [place] [address] | | | | + + + + + + + + | Specimen | + + | Blood | + + + + + + + | Performing | Address | City/State/Zipcode | Phone Number | | Organization | | | | + + + + + | [facility] | [address] | [place] [address] | [phone] | + + + + + CBC [...] | | | Absolute | performed at [facility], [address] | K/uL | LABORATORY | | | | [facility], | | | | | | [place] [address] | | | | + + + + + + + + | Specimen | + + | Blood | + + + + + + + | Performing | Address | City/State/Zipcode | Phone Number | | Organization | | | | + + + + + | [facility] | [address] | [place] [address] | [phone] | + + + + + Basic [...] 26 (L)Comment: GFR <60: | >60 | [facility] | | | GFR | CHRONIC [...] | | | | | | MDRD [facility] traceable | | | | | | equation.Testing | | | | | | performed at [facility], [address] | | | | | | [facility], | | | | | | [place] [address] | | | | + + + + + + + + | Specimen | + + | Blood | + + + + + + + | Performing | Address | City/State/Zipcode | Phone Number | | Organization | | | | + + + + + | [facility] | [address] | [place] [address] | [phone] | + + + + + XR [...] Testing | 65 - 99 mg/dL | [facility] | | | POC | performed at [facility];[address] | | LABORATORY | | | | [address];[place] | | | | | | [address] | | | | + + + + + + + + | Specimen | + + | | + + + + + + + | Performing | Address | City/State/Zipcode | Phone Number | | Organization | | | | + + + + + | [facility] | [address] | [place] [address] | [phone] | + + + + + POC [...] | | | POC | performed at [facility];[address] | | LABORATORY | | | | [address];[place], [place] | | | | | | [address] | | | | + + + + + + + + | Specimen | + + | | + + + + + + + | Performing | Address | City/State/Zipcode | Phone Number | | Organization | | | | + + + + + | [facility] | [address] | [place] [address] | [phone] | + + + + + POC [...] | | | POC | performed at [facility];[address] | | LABORATORY | | | | [address];[place] | | | | | | [address] | | | | + + + + + + + + | Specimen | + + | | + + + + + + + | Performing | Address | City/State/Zipcode | Phone Number | | Organization | | | | + + + + + | [facility] | [address] | [place] [address] | [phone] | + + + + + Potassium (02/16/2019 12:45 PM PDT) + + + + + + | Component | Value | Ref Range | Performed | Pathologist | | | | | At | Signature | + + + + + + | K | 5.6 (H)Comment: Testing | 3.5 - 4.9 | [facility] | | | | performed at [facility];[address] | mmol/L | LABORATORY | | | | [address];[place] | | | | | | [address] | | | | + + + + + + + + | Specimen | + + | Blood | + + + + + + + | Performing | Address | City/State/Zipcode | Phone Number | | Organization | | | | + + + + + | [facility] | [address] | [place] [address] | [phone] | + + + + + POC [...] | | | POC | performed at [facility];[address] | | LABORATORY | | | | [address];[place], [place] | | | | | | [address] | | | | + + + + + + + + | Specimen | + + | | + + + + + + + | Performing | Address | City/State/Zipcode | Phone Number | | Organization | | | | + + + + + | [facility] | [address] | [place] [address] | [phone] | + + + + + POC Glucose (02/16/2019 9:25 AM PDT) + + + + + + | Component | Value | Ref Range | Performed | Pathologist | | | | | At | Signature | + + + + + + | Glucose, | 88Comment: Testing | 65 - 99 mg/dL | [facility] | | | POC | performed at [facility];[address] | | LABORATORY | | | | [address];[place] | | | | | | [address] | | | | + + + + + + + + | Specimen | + + | | + + + + + + + | Performing | Address | City/State/Zipcode | Phone Number | | Organization | | | | + + + + + | [facility] | [address] | [place] [address] | [phone] | + + + + + POC Glucose (02/16/2019 8:44 AM PDT) + + + + + + | Component | Value | Ref Range | Performed | Pathologist | | | | | At | Signature | + + + + + + | Glucose, | 80Comment: Testing | 65 - 99 mg/dL | [facility] | | | POC | performed at [facility];[address] | | LABORATORY | | | | [address];[place] | | | | | | [address] | | | | + + + + + + + + | Specimen | + + | | + + + + + + + | Performing | Address | City/State/Zipcode | Phone Number | | Organization | | | | + + + + + | [facility] | [address] | [place] [address] | [phone] | + + + + + POC [...] | | | POC | performed at [facility];[address] | | LABORATORY | | | | [address];[place] | | | | | | [address] | | | | + + + + + + + + | Specimen | + + | | + + + + + + + | Performing | Address | City/State/Zipcode | Phone Number | | Organization | | | | + + + + + | [facility] | [address] | [place] [address] | [phone] | + + + + + POC Glucose (02/16/2019 6:36 AM PDT) + + + + + + | Component | Value | Ref Range | Performed | Pathologist | | | | | At | Signature | + + + + + + | Glucose, | 133 (H)Comment: Testing | 65 - 99 mg/dL | [facility] | | | POC | performed at [facility];[address] | | LABORATORY | | | | [address];[place] | | | | | | [address] | | | | + + + + + + + + | Specimen | + + | | + + + + + + + | Performing | Address | City/State/Zipcode | Phone Number | | Organization | | | | + + + + + | [facility] | [address] | [place] [address] | [phone] | + + + + + XR [...] Testing | 1.7 - 2.4 mg/dL | [facility] | | | | performed at [facility];[address] | | LABORATORY | | | | [address];[place], [place] | | | | | | [address] | | | | + + + + + + + + | Specimen | + + | Blood | + + + + + + + | Performing | Address | City/State/Zipcode | Phone Number | | Organization | | | | + + + + + | [facility] | [address] | [place] [address] | [phone] | + + + + + CBC [...] | | | | | [place] [address] | | | | + + + + + + + + | Specimen | + + | Blood | + + + + + + + | Performing | Address | City/State/Zipcode | Phone Number | | Organization | | | | + + + + + | [facility] | [address] | [place] [address] | [phone] | + + + + + Basic [...] 32 (L)Comment: GFR <60: | >60 | [facility] [...] | | | | | performed at [facility] [place] | | | | | | [facility];[place], [place] | | | | | | [address] | | | | + + + + + + + + | Specimen | + + | Blood | + + + + + + + | Performing | Address | City/State/Zipcode | Phone Number | | Organization | | | | + + + + + | [facility] | [address] | [place] [address] | [phone] | + + + + + POC Glucose (02/16/2019 4:30 AM PDT) + + + + + + | Component | Value | Ref Range | Performed | Pathologist | | | | | At | Signature | + + + + + + | Glucose, | 121 (H)Comment: Testing | 65 - 99 mg/dL | [facility] | | | POC | performed at [facility] [place];[address] | | LABORATORY | | | | [address];[place] | | | | | | [id number] | | | | + + + + + + + + | Specimen | + + | | + + + + + + + | Performing | Address | City/State/Zipcode | Phone Number | | Organization | | | | + + + + + | [facility] | [address] | [place] [address] | [phone] | + + + + + POC [...] | | | POC | performed at [facility];[address] | | LABORATORY | | | | [address];[place], [place] | | | | | | [address] | | | | + + + + + + + + | Specimen | + + | | + + + + + + + | Performing | Address | City/State/Zipcode | Phone Number | | Organization | | | | + + + + + | [facility] | [address] | [place] [address] | [phone] | + + + + + POC [...] | | | POC | performed at [facility];[address] | | LABORATORY | | | | [address];[place] | | | | | | [address] | | | | + + + + + + + + | Specimen | + + | | + + + + + + + | Performing | Address | City/State/Zipcode | Phone Number | | Organization | | | | + + + + + | [facility] | [address] | [place] [address] | [phone] | + + + + + Potassium (02/15/2019 11:39 PM PDT) + + + + + + | Component | Value | Ref Range | Performed | Pathologist | | | | | At | Signature | + + + + + + | K | 4.6Comment: Testing | 3.5 - 4.9 | [facility] | | | | performed at [facility];888 | mmol/L | LABORATORY | | | | [address];[place] | | | | | | [address] | | | | + + + + + + + + | Specimen | + + | Blood | + + + + + + + | Performing | Address | City/State/Zipcode | Phone Number | | Organization | | | | + + + + + | [facility] | [address] | [place] [address] | [phone] | + + + + + Blood [...] | | | Arterial, | performed at [facility];888 | | LABORATORY | | | POC | [address] [facility];[place], [place] | | | | | | [address] | | | | + + + + + + + + | Specimen | + + | | + + + + + + + | Performing | Address | City/State/Zipcode | Phone Number | | Organization | | | | + + + + + | [facility] | [address] | [place] [address] | [phone] | + + + + + POC Glucose (02/15/2019 11:28 PM PDT) + + + + + + | Component | Value | Ref Range | Performed | Pathologist | | | | | At | Signature | + + + + + + | Glucose, | 131 (H)Comment: Testing | 65 - 99 mg/dL | [facility] | | | POC | performed at [facility];[address] | | LABORATORY | | | | [address];[place] | | | | | | [address] | | | | + + + + + + + + | Specimen | + + | | + + + + + + + | Performing | Address | City/State/Zipcode | Phone Number | | Organization | | | | + + + + + | [facility] | [address] | [place] [address] | [phone] | + + + + + POC [...] | | | POC | performed at [facility];888 | | LABORATORY | | | | [address];[place], [place] | | | | | | [address] | | | | + + + + + + + + | Specimen | + + | | + + + + + + + | Performing | Address | City/State/Zipcode | Phone Number | | Organization | | | | + + + + + | [facility] | [address] | [place] [address] | [phone] | + + + + + POC Glucose (02/15/2019 9:17 PM PDT) + + + + + + | Component | Value | Ref Range | Performed | Pathologist | | | | | At | Signature | + + + + + + | Glucose, | 141 (H)Comment: Testing | 65 - 99 mg/dL | [facility] | | | POC | performed at [facility];[address] | | LABORATORY | | | | [address];[place], [place] | | | | | | [address] | | | | + + + + + + + + | Specimen | + + | | + + + + + + + | Performing | Address | City/State/Zipcode | Phone Number | | Organization | | | | + + + + + | [facility] | [address] | [place] [address] | [phone] | + + + + + POC DENIS GUERRA8, Venous (02/15/2019 8:50 PM PDT) + + + + + + | Component | Value | Ref Range | Performed | Pathologist | | | | | At | Signature | + + + + + + | pH, Venous, | 7.338 | 7.310 - 7.410 | [facility] | [...] | | | | | performed at [facility] | | | | | | [address];[place], [place] | | | | | | [address] | | | | + + + + + + + + | Specimen | + + | | + + + + + + + | Performing | Address | City/State/Zipcode | Phone Number | | Organization | | | | + + + + + | [facility] | [address] | [place] [address] | [phone] | + + + + + Blood [...] 3 (H) | 0.0 - 2.0 | [facility] | | | Deficit | | mmol/L | LABORATORY | | | mmol/L | | | | | + + + + + + | SO2, | 97Comment: Testing | 95 - 98 % | [facility] | | | Arterial, | performed at [facility];888 | | LABORATORY | | | POC | [address];[place] | | | | | | [address] | | | | + + + + + + + + | Specimen | + + | | + + + + + + + | Performing | Address | City/State/Zipcode | Phone Number | | Organization | | | | + + + + + | [facility] | [address] | [place] [address] | [phone] | + + + + + Potassium (02/15/2019 8:02 PM PDT) + + + + + + | Component | Value | Ref Range | Performed | Pathologist | | | | | At | Signature | + + + + + + | K | 3.7Comment: Testing | 3.5 - 4.9 | [facility] | | | | performed at [facility];888 | mmol/L | LABORATORY | | | | [address];[place] | | | | | | [address] | | | | + + + + + + + + | Specimen | + + | Blood | + + + + + + + | Performing | Address | City/State/Zipcode | Phone Number | | Organization | | | | + + + + + | [facility] | [address] | [place] [address] | [phone] | + + + + + POC Glucose (02/15/2019 6:47 PM PDT) + + + + + + | Component | Value | Ref Range | Performed | Pathologist | | | | | At | Signature | + + + + + + | Glucose, | 91Comment: Testing | 65 - 99 mg/dL | [facility] | | | POC | performed at [facility];[address] | | LABORATORY | | | | [address];[place], [place] | | | | | | [address] | | | | + + + + + + + + | Specimen | + + | | + + + + + + + | Performing | Address | City/State/Zipcode | Phone Number | | Organization | | | | + + + + + | [facility] | [address] [facility] | [place] [address] | [phone] | + + + + + Blood [...] | | | Arterial, | performed at [facility];888 | | LABORATORY | | | POC | [address];[place], [place] | | | | | | [address] | | | | + + + + + + + + | Specimen | + + | | + + + + + + + | Performing | Address | City/State/Zipcode | Phone Number | | Organization | | | | + + + + + | [facility] | [address] | [place] [address] | [phone] | + + + + + Blood [...] | | | Arterial, | performed at [facility];888 | | LABORATORY | | | POC | [address] [facility];[place], [place] | | | | | | [address] | | | | + + + + + + + + | Specimen | + + | | + + + + + + + | Performing | Address | City/State/Zipcode | Phone Number | | Organization | | | | + + + + + | [facility] | [address] | [place] [address] | [phone] | + + + + + POC Glucose (02/15/2019 4:43 PM PDT) + + + + + + | Component | Value | Ref Range | Performed | Pathologist | | | | | At | Signature | + + + + + + | Glucose, | 137 (H)Comment: Testing | 65 - 99 mg/dL | [facility] | | | POC | performed at [facility];888 | | LABORATORY | | | | [address];[place] | | | | | | [address] | | | | + + + + + + + + | Specimen | + + | | + + + + + + + | Performing | Address | City/State/Zipcode | Phone Number | | Organization | | | | + + + + + | [facility] | [address] | [place] [address] | [phone] | + + + + + Blood [...] Testing | 95 - 98 % | [facility] | | | Arterial, | performed at [facility];[address] | | LABORATORY | | | POC | [address];[place], [place] | | | | | | [address] | | | | + + + + + + + + | Specimen | + + | | + + + + + + + | Performing | Address | City/State/Zipcode | Phone Number | | Organization | | | | + + + + + | [facility] | [address] | [place] [address] | [phone] | + + + + + Potassium (02/15/2019 4:03 PM PDT) + + + + + + | Component | Value | Ref Range | Performed | Pathologist | | | | | At | Signature | + + + + + + | K | 3.9Comment: Testing | 3.5 - 4.9 | [facility] | | | | performed at [facility];888 | mmol/L | LABORATORY | | | | [address];[place], [place] | | | | | | [address] | | | | + + + + + + + + | Specimen | + + | Blood | + + + + + + + | Performing | Address | City/State/Zipcode | Phone Number | | Organization | | | | + + + + + | [facility] | [address] | [place] [address] | [phone] | + + + + + POC Glucose (02/15/2019 3:39 PM PDT) + + + + + + | Component | Value | Ref Range | Performed | Pathologist | | | | | At | Signature | + + + + + + | Glucose, | 139 (H)Comment: Testing | 65 - 99 mg/dL | [facility] | | | POC | performed at [facility];[address] | | LABORATORY | | | | [address];[place] | | | | | | [address] | | | | + + + + + + + + | Specimen | + + | | + + + + + + + | Performing | Address | City/State/Zipcode | Phone Number | | Organization | | | | + + + + + | [facility] | [address] | [place] [address] | [phone] | + + + + + Blood [...] | | | Arterial, | performed at [facility];888 | | LABORATORY | | | POC | [address] [facility];[place], [place] | | | | | | [address] | | | | + + + + + + + + | Specimen | + + | | + + + + + + + | Performing | Address | City/State/Zipcode | Phone Number | | Organization | | | | + + + + + | [facility] | [address] | [place] [address] | [phone] | + + + + + POC Glucose (02/15/2019 2:43 PM PDT) + + + + + + | Component | Value | Ref Range | Performed | Pathologist | | | | | At | Signature | + + + + + + | Glucose, | 123 (H)Comment: Testing | 65 - 99 mg/dL | [facility] | | | POC | performed at [facility];888 | | LABORATORY | | | | [address];[place] | | | | | | [address] | | | | + + + + + + + + | Specimen | + + | | + + + + + + + | Performing | Address | City/State/Zipcode | Phone Number | | Organization | | | | + + + + + | [facility] | [address] | [place] [address] | [phone] | + + + + + Calcium, [...] [facility] | | | | performed at [facility];888 | | LABORATORY | | | | [address];[place] | | | | | | [address] | | | | + + + + + + + + | Specimen | + + | Blood | + + + + + + + | Performing | Address | City/State/Zipcode | Phone Number | | Organization | | | | + + + + + | [facility] | [address] | [place] [address] | [phone] | + + + + + PTT (02/15/2019 1:45 PM PDT) + + + + + + | Component | Value | Ref Range | Performed | Pathologist | | | | | At | Signature | + + + + + + | PTT | 26Comment: Testing | 23 - 32 seconds | [facility] | | | | performed at [facility];888 | | LABORATORY | | | | [address];[place] | | | | | | [address] | | | | + + + + + + + + | Specimen | + + | Blood | + + + + + + + | Performing | Address | City/State/Zipcode | Phone Number | | Organization | | | | + + + + + | [facility] | [address] | [place] [address] | [phone] | + + + + + Protime INR (02/15/2019 1:45 PM PDT) + + + + + + | Component | Value | Ref Range | Performed | Pathologist | | | | | At | Signature | + + + + + + | INR | 1.2Comment: REFERENCE | | [facility] | | | [...] | | | | | performed at [facility] | | | | | | [address];[place], [place] | | | | | | [address] | | | | + + + + + + + + | Specimen | + + | Blood | + + + + + + + | Performing | Address | City/State/Zipcode | Phone Number | | Organization | | | | + + + + + | [facility] | [address] | [place] [address] | [phone] | + + + + + Magnesium (02/15/2019 1:45 PM PDT) + + + + + + | Component | Value | Ref Range | Performed | Pathologist | | | | | At | Signature | + + + + + + | Magnesium | 3.0 (H)Comment: Testing | 1.7 - 2.4 mg/dL | [facility] | | | | performed at [facility];[address] | | LABORATORY | | | | [address];[place], [place] | | | | | | [address] | | | | + + + + + + + + | Specimen | + + | Blood | + + + + + + + | Performing | Address | City/State/Zipcode | Phone Number | | Organization | | | | + + + + + | [facility] | [address] | [place] [address] | [phone] | + + + + + Hemoglobin A1C (02/15/2019 1:45 PM PDT) + + + + + + | Component | Value | Ref Range | Performed | Pathologist | | | | | At | Signature | + + + + + + | Hemoglobin | 7.4 (H)Comment: HbA1c | 4.0 - 6.0 % | [facility] | | | A1c | method [...] | 166 (H)Comment: | <154 mg/dL | [facility] | | | Average | Estimated Average | | LABORATORY | | | Glucose | Glucose calculated from | | | | | | hemoglobin A1c by use of | | | | | | the ADArecommended | | | | | | formula.Testing | | | | | | performed at [facility], [address] | | | | | | [address], | | | | | | [place] [address] | | | | + + + + + + + + | Specimen | + + | Blood | + + + + + + + | Performing | Address | City/State/Zipcode | Phone Number | | Organization | | | | + + + + + | [facility] | [address] | [place] [address] | [phone] | + + + + + Fibrinogen (02/15/2019 1:45 PM PDT) + + + + + + | Component | Value | Ref Range | Performed | Pathologist | | | | | At | Signature | + + + + + + | Fibrinogen | 434Comment: Testing | 200 - 450 mg/dL | [facility] | | | | performed at [facility];888 | | LABORATORY | | | | [address];[place] | | | | | | [address] | | | | + + + + + + + + | Specimen | + + | Blood | + + + + + + + | Performing | Address | City/State/Zipcode | Phone Number | | Organization | | | | + + + + + | [facility] | [address] | [place] [address] | [phone] | + + + + + CBC [...] Comment | SLIDE SCANNED, AGREES | | [facility] | | | | WITH AUTOMATED | | LABORATORY | | | | RESULTS.Comment: Testing | | | | | | performed at [facility] | | | | | | [facility];[place] | | | | | | [address] | | | | + + + + + + + + | Specimen | + + | Blood | + + + + + + + | Performing | Address | City/State/Zipcode | Phone Number | | Organization | | | | + + + + + | [facility] | [address] | [place] [address] | [phone] | + + + + + Basic [...] 7.7 (L) | 8.5 - 10.5 | [facility] | | | | | mg/dL | LABORATORY | | + + + + + + | Estimated | 38 (L)Comment: GFR <60: | >60 | [facility] | | | GFR | CHRONIC [...] | | | | | performed at [facility] | | | | | | [facility];[place], [place] | | | | | | [address] | | | | + + + + + + + + | Specimen | + + | Blood | + + + + + + + | Performing | Address | City/State/Zipcode | Phone Number | | Organization | | | | + + + + + | [facility] | [address] | [place] [address] | [phone] | + + + + + POC CHARLIE, CG8, Arterial (02/15/2019 1:39 PM PDT) + [...] (L)Comment: Testing | 13.7 - 16.7 | [facility] | | | POC | performed at [facility];888 | g/dL | LABORATORY | | | | [address];[place], [place] | | | | | | [address] | | | | + + + + + + + + | Specimen | + + | | + + + + + + + | Performing | Address | City/State/Zipcode | Phone Number | | Organization | | | | + + + + + | [facility] | [address] | [place] [address] | [phone] | + + + + + XR [...] | projects 4.1 cm above the fransico. [place] catheter tip appears to | | | [...] | Hung Pagan Results In - 02/15/2019 2:02 PM PDT | | CHEST PORTABLE ONE VIEW | | | | CLINICAL INFORMATION: | | Post open heart surgery. | | | | COMPARISON: | | XR CHEST PA AND LATERAL (02/14/2019); | | | | FINDINGS: | | Patient is post sternotomy. Endotracheal tube tip projects 4.1 cm | | above the fransico. [place] catheter tip appears to project at the [...] | | | | Signed by: Radha Avery Amit | | Sign Date/Time: 02/15/2019 1:59 PM [...] | | | Arterial, | performed at [facility];888 | | LABORATORY | | | POC | [address];[place] | | | | | | [address] | | | | + + + + + + + + | Specimen | + + | | + + + + + + + | Performing | Address | City/State/Zipcode | Phone Number | | Organization | | | | + + + + + | [facility] | [address] | [place] [address] | [phone] | + + + + + POC [...] | | | POC | performed at [facility];[address] | | LABORATORY | | | | [address];[place], [place] | | | | | | [address] | | | | + + + + + + + + | Specimen | + + | | + + + + + + + | Performing | Address | City/State/Zipcode | Phone Number | | Organization | | | | + + + + + | [facility] | [address] | [place] [address] | [phone] | + + + + + ECG [...] Testing | 95 - 98 % | [facility] | | | Arterial, | performed at [facility];[address] | | LABORATORY | | | POC | [address];[place] | | | | | | [address] | | | | + + + + + + + + | Specimen | + + | | + + + + + + + | Performing | Address | City/State/Zipcode | Phone Number | | Organization | | | | + + + + + | [facility] | [address] | [place] [address] | [phone] | + + + + + POC ISTAT, CG8, Arterial (02/15/2019 12:09 PM PDT) + [...] | | | POC | performed at [facility];888 | g/dL | LABORATORY | | | | [address];[place], [place] | | | | | | [address] | | | | + + + + + + + + | Specimen | + + | | + + + + + + + | Performing | Address | City/State/Zipcode | Phone Number | | Organization | | | | + + + + + | [facility] | [address] | [place] [address] | [phone] | + + + + + POC [...] | | | Arterial, | performed at [facility];888 | | LABORATORY | | | POC | [address];[place] | | | | | | [address] | | | | + + + + + + + + | Specimen | + + | | + + + + + + + | Performing | Address | City/State/Zipcode | Phone Number | | Organization | | | | + + + + + | [facility] | [address] | [place] [address] | [phone] | + + + + + POC ISTAT, CG8, Arterial (02/15/2019 11:31 AM PDT) + + + + + + | Component | Value | Ref Range | Performed | Pathologist | | | | | At | Signature | + + + + + + | pH, | 7.337 (L) | 7.350 - 7.450 | [facility] | | | Arterial, | | [...] | | | POC | performed at [facility];888 | g/dL | LABORATORY | | | | [address];[place] | | | | | | [address] | | | | + + + + + + + + | Specimen | + + | | + + + + + + + | Performing | Address | City/State/Zipcode | Phone Number | | Organization | | | | + + + + + | [facility] | [address] | [place] [address] | [phone] | + + + + + POC CHARLIE CG8, Arterial (02/15/2019 11:10 AM PDT) + [...] | | | POC | performed at [facility];888 | g/dL | LABORATORY | | | | [address];[place] | | | | | | [address] | | | | + + + + + + + + | Specimen | + + | | + + + + + + + | Performing | Address | City/State/Zipcode | Phone Number | | Organization | | | | + + + + + | [facility] | [address] [facility] | [place] [address] | [phone] | + + + + + POC CG 4, ISTAT Arterial (02/15/2019 10:59 AM PDT) + + + + + + | Component | Value | Ref Range | Performed | Pathologist | | | | | At | Signature | + + + + + + | pH, | 7.310 (L) | 7.350 - 7.450 | [facility] [...] Testing | 95 - 98 % | [facility] | | | Arterial, | performed at [facility];888 | | LABORATORY | | | POC | [address];[place] | | | | | | [address] | | | | + + + + + + + + | Specimen | + + | | + + + + + + + | Performing | Address | City/State/Zipcode | Phone Number | | Organization | | | | + + + + + | [facility] | [address] | [place] [address] | [phone] | + + + + + POC ISLEISA CG8, Arterial (02/15/2019 10:52 AM PDT) + + + + + + | Component | Value | Ref Range | Performed | Pathologist | | | | | At | Signature | + + + + + + | pH, | 7.298 (L) | 7.350 - 7.450 | [facility] [...] | | | POC | performed at [facility];888 | g/dL | LABORATORY | | | | [address];[place], [place] | | | | | | [address] | | | | + + + + + + + + | Specimen | + + | | + + + + + + + | Performing | Address | City/State/Zipcode | Phone Number | | Organization | | | | + + + + + | [facility] | [address] | [place] [address] | [phone] | + + + + + POC ISTAT, CG8, Venous (02/15/2019 10:21 AM PDT) + + [...] | | | POC | performed at [facility];888 | g/dL | LABORATORY | | | | [address];[place], [place] | | | | | | [address] | | | | + + + + + + + + | Specimen | + + | | + + + + + + + | Performing | Address | City/State/Zipcode | Phone Number | | Organization | | | | + + + + + | [facility] | [address] | [place] [address] | [phone] | + + + + + POC ISTAT, CG8, Arterial (02/15/2019 10:07 AM PDT) + + + + + + | Component | Value | Ref Range | Performed | Pathologist | | | | | At | Signature | + + + + + + | pH, | 7.345 (L) | 7.350 - 7.450 | [facility] | | | Arterial, | | [...] | | | POC | performed at [facility];888 | g/dL | LABORATORY | | | | [address];[place], [place] | | | | | | [address] | | | | + + + + + + + + | Specimen | + + | | + + + + + + + | Performing | Address | City/State/Zipcode | Phone Number | | Organization | | | | + + + + + | [facility] | [address] | [place] [address] | [phone] | + + + + + POC ISLEISA CG8, Arterial (02/15/2019 9:43 AM PDT) + + + + + + | Component | Value | Ref Range | Performed | Pathologist | | | | | At | Signature | + + + + + + | pH, | 7.314 (L) | 7.350 - 7.450 | [facility] [...] (L)Comment: Testing | 13.7 - 16.7 | [facility] | | | POC | performed at [facility];888 | g/dL | LABORATORY | | | | [address];[place], [place] | | | | | | [address] | | | | + + + + + + + + | Specimen | + + | | + + + + + + + | Performing | Address | City/State/Zipcode | Phone Number | | Organization | | | | + + + + + | [facility] | [address] | [place] [address] | [phone] | + + + + + POC ISTAT, CG8, Arterial (02/15/2019 9:04 AM PDT) + + [...] | | | POC | performed at [facility];888 | g/dL | LABORATORY | | | | [address];[place] | | | | | | [address] | | | | + + + + + + + + | Specimen | + + | | + + + + + + + | Performing | Address | City/State/Zipcode | Phone Number | | Organization | | | | + + + + + | [facility] | [address] | [place] [address] | [phone] | + + + + + POC CG 4, ISTAT Arterial (02/15/2019 7:53 AM PDT) + + [...] | | | Arterial, | performed at [facility];888 | | LABORATORY | | | POC | Shiv Huang;[place], [place] | | | | | | [id number] | | | | + + + + + + + + | Specimen | + + | | + + + + + + + | Performing | Address | City/State/Zipcode | Phone Number | | Organization | | | | + + + + + | [facility] | [address] | [place] [address] | [phone] | + + + + + POC ISTAT, CG8, Arterial (02/15/2019 7:50 AM PDT) + + + + + + | Component | Value | Ref Range | Performed | Pathologist | | | | | At | Signature | + + + + + + | pH, | 7.305 (L) | 7.350 - 7.450 | [facility] | | | Arterial, | | [...] | | | POC | performed at [facility] [place];888 | g/dL | LABORATORY | | | | Shiv Huang;[place] | | | | | | [id number] | | | | + + + + + + + + | Specimen | + + | | + + + + + + + | Performing | Address | City/State/Zipcode | Phone Number | | Organization | | | | + + + + + | [facility] | [address] | [place] [address] | [phone] | + + + + + ECHO Transesophageal (SHALA) - Adelia (02/15/2019 7:41 AM PDT) + +-------+ + [...] Demographics Patient | | | Name BOB MNACINI Room Number [id number] | | | Patient Number [id number] Date of Study | | | 02/15/2019 Visit Number [id number] Referring | | | Physician LUISANA ALCALA Accession Number [id number] | | | Wheel Loader Operator Date of 1965 Interpreting | | | Physician Ed Elmore Age 53 year(s) | | | Nurse Gender Male Stress | | | Wool Presser Procedure Type of Study SHALA procedure:TRANSESOPHAGEAL(SHALA) | [...] Mild | | | MR. Mild AI. Ldqe-lp-pspqunnl TR. Mild PI. Uymbises-py-gwbewc PAH. | | | Bilateral pleural effusions (drained intraoperatively). Mildly | | | improved global & regional function post-CABG on low-dose epinephrine | | | infusion. Signature | | | | | | Electronically signed by Ed KongInterpreting physician) on | | | 02/15/2019 at [...] = 54mmHg | | | (consistent with pcppwqol-rg-scoefv pulmonary arterial | | | hypertension--reading was consistent with direct PASP measurement via | | | [place] catheter). Pulmonic Valve Peak Velocity: 51.33 cm/s [...] = 54mmHg | | | (consistent with xujqbwxj-qo-vemlca pulmonary arterial | | | hypertension--reading was consistent with direct PASP measurement via | | | [facility] [place]-Roland catheter). | | | | | | [...] | Ej, Rad Results In - 02/15/2019 2:10 PM PDT Transesophageal Echocardiography Report | | (SHALA) Demographics Patient Name BOB MANCINI Room Number 36003 | | Patient Number [id number] Date of Study 02/15/2019 Visit Number | | [id number] Referring Physician LUISANA ALCALA Accession Number [id number] | | Wheel Loader Operator Date of 1965 Interpreting Physician Ed [place] | | Age 53 year(s) Nurse Gender Male Stress | | TechnicianProcedureType of Study SHALA procedure:TRANSESOPHAGEAL(SHALA) - | | PERIOPERATIVE.Procedure DateDate: 02/15/2019 Start: 07:41 AMStudy [facility] | | Quality: Adequate visualizationPatient Status: RoutineHeight: 70.87 inches Weight: | | 208.12 pounds BSA: 2.14 m^2 BMI: 29.14 kg/m^2Rhythm: Normal Sinus Rhythm HR: 75 bpm BP: | | 110/70 mmHg Conclusions Summary Severely depressed baseline LV global systolic function | | with multiple RWMAs as documented below. LVEF = 25-30%. Mild MR. Mild AI. | | Osbs-fp-vxsamuur TR. Mild PI. Csacvfjf-we-bnqvmj PAH. Bilateral pleural effusions | | (drained intraoperatively). Mildly improved global & regional function post-CABG on | | low-dose epinephrine infusion. Signature | | | | SHALA Performed By: | | Mekhi Type of Anesthesia: General anesthesia Cardiac Chambers [...] tricuspid regurgitation. RVSP = 54mmHg (consistent with lhmlnmxg-rm-rewhrd | | pulmonary arterial hypertension--reading was consistent with direct PASP measurement | | via [place]-Roland catheter). Pulmonic Valve Peak Velocity: 51.33 cm/s [...] RVSP = 54mmHg | | (consistent with wabzcszh-nq-qgndkv pulmonary arterial | | hypertension--reading was consistent with direct PASP measurement via | | [place]-Roland catheter). | | | | Pulmonic Valve [...] | | | POC | performed at [facility];[address] | | LABORATORY | | | | [address];[place], [place] | | | | | | [address] | | | | + + + + + + + + | Specimen | + + | | + + + + + + + | Performing | Address | City/State/Zipcode | Phone Number | | Organization | | | | + + + + + | [facility] | [address] | [place] [address] | [phone] | + + + + + PTT (02/15/2019 5:49 AM PDT) + + + + + + | Component | Value | Ref Range | Performed | Pathologist | | | | | At | Signature | + + + + + + | PTT | 64 (H)Comment: Testing | 23 - 32 seconds | [facility] | | | | performed at [facility];[address] | | LABORATORY | | | | [address];[place] | | | | | | [address] | | | | + + + + + + + + | Specimen | + + | | + + + + + + + | Performing | Address | City/State/Zipcode | Phone Number | | Organization | | | | + + + + + | [facility] | [address] | [place] [address] | [phone] | + + + + + Protime INR (02/15/2019 5:49 AM PDT) + + + + + + | Component | Value | Ref Range | Performed | Pathologist | | | | | At | Signature | + + + + + + | INR | 1.0Comment: REFERENCE | | [facility] | | | | RANGE:0.9 - [...] | | | | | performed at [facility] | | | | | | [facility];[place], [place] | | | | | | [address] | | | | + + + + + + + + | Specimen | + + | | + + + + + + + | Performing | Address | City/State/Zipcode | Phone Number | | Organization | | | | + + + + + | [facility] | [address] [facility] | [place] [address] | [phone] | + + + + + CBC [...] [facility] | | | | performed at [facility], [address] | | LABORATORY | | | | [address], | | | | | | [place] [address] | | | | + + + + + + + + | Specimen | + + | | + + + + + + + | Performing | Address | City/State/Zipcode | Phone Number | | Organization | | | | + + + + + | [facility] | [address] | [place] [address] | [phone] | + + + + + Renal [...] 37 (L)Comment: GFR <60: | >60 | [facility] [...] | | | | | | MDRD IDTN traceable | | | | | | equation.Testing | | | | | | performed at [facility], [address] | | | | | | [facility], | | | | | | [place] [address] | | | | + + + + + + + + | Specimen | + + | Blood | + + + + + + + | Performing | Address | City/State/Zipcode | Phone Number | | Organization | | | | + + + + + | [facility] | [address] | [place] [address] | [phone] | + + + + + Red [...] | ORDER RECEIVED IN BLOOD | | [facility] | | | COMMENT | BANK. | | LABORATORY | | + + + + + + | BLOOD BANK | Testing performed at | | [facility] | | | COMMENT | [facility];[address] | | LABORATORY | | | | [address];[place] [address] | | | | + + + + + + + + | Specimen | + + | | + + + + + + + | Performing | Address | City/State/Zipcode | Phone Number | | Organization | | | | + + + + + | [facility] | [address] | [place] [address] | [phone] | + + + + + Type [...] + + + | UNIT # | [id number] | | [facility] | | | | [...] + + + | UNIT # | [id number] | | [facility] | | | | [...] + + + | UNIT # | [id number] | | [facility] | | | | [...] | | | RESULT | performed at [facility];[address] | | LABORATORY | | | | [address];[place], [place] | | | | | | [address] | | | | + + + + + + | UNIT # | [id number] | | [facility] | | | | [...] [facility] | [address] | [place] [address] | [phone] | + + + + + PTT (02/14/2019 11:09 PM PDT) + + + + + + | Component | Value | Ref Range | Performed | Pathologist | | | | | At | Signature | + + + + + + | PTT | 52 (H)Comment: Testing | 23 - 32 seconds | [facility] | | | | performed at [facility];[address] | | LABORATORY | | | | [address];[place], [place] | | | | | | [address] | | | | + + + + + + + + | Specimen | + + | Blood | + + + + + + + | Performing | Address | City/State/Zipcode | Phone Number | | Organization | | | | + + + + + | [facility] | [address] | [place] [address] | [phone] | + + + + + Troponin [...] | | | | | performed at [facility];[address] | | | | | | [facility];[place], [place] | | | | | | [address] | | | | + + + + + + + + | Specimen | + + | Blood | + + + + + + + | Performing | Address | City/State/Zipcode | Phone Number | | Organization | | | | + + + + + | [facility] | [address] | [place] [address] | [phone] | + + + + + XR Chest PA and Lateral (02/14/2019 10:55 PM PDT) + + | Specimen | + + | | + + + + + | Impressions | Performed At | + + + | Cardiomegaly with pulmonary edema, mildly increased since | [facility] | | 02/12/2019. Signed by: Radha Chavez Julie Sign | | | Date/Time: 02/15/2019 1:18 [...] [facility] | | | | performed at [facility];[address] | | LABORATORY | | | | [address];[place] | | | | | | [address] | | | | + + + + + + + + | Specimen | + + | Tissue - Both | | anterior nares (body | | structure) | + + + + + + + | Performing | Address | City/State/Zipcode | Phone Number | | Organization | | | | + + + + + | [facility] | [address] | [place] [address] | [phone] | + + + + + POC Glucose (02/14/2019 9:11 PM PDT) + + + + + + | Component | Value | Ref Range | Performed | Pathologist | | | | | At | Signature | + + + + + + | Glucose, | 165 (H)Comment: Testing | 65 - 99 mg/dL | [facility] | | | POC | performed at [facility];[address] | | LABORATORY | | | | [address];[place], [place] | | | | | | [address] | | | | + + + + + + + + | Specimen | + + | | + + + + + + + | Performing | Address | City/State/Zipcode | Phone Number | | Organization | | | | + + + + + | [facility] | [address] | [place] [address] | [phone] | + + + + + POC [...] | | | POC | performed at [facility];[address] | | LABORATORY | | | | [address];[place], [place] | | | | | | [address] | | | | + + + + + + + + | Specimen | + + | | + + + + + + + | Performing | Address | City/State/Zipcode | Phone Number | | Organization | | | | + + + + + | [facility] | [address] | [place] [address] | [phone] | + + + + + ECG [...] MD | | | | | | (593) on 02/14/2019 | | | | | [...] KRMOOKIE | | | | performed at [facility];[address] | | LABORATORY | | | | [address];[place] | | | | | | [address] | | | | + + + + + + + + | Specimen | + + | Blood | + + + + + + + | Performing | Address | City/State/Zipcode | Phone Number | | Organization | | | | + + + + + | [facility] | [address] | [place] [address] | [phone] | + + + + + Troponin I (02/14/2019 12:47 PM PDT) + + + + + + | Component | Value | Ref Range | Performed | Pathologist | | | | | At | Signature | + + + + + + | Troponin I | 12.566 ()Comment: | 0.00 - 0.04 | [facility] | | | | 0.04 ng/mL [...] BENÍTEZ | | | | | | [id number] AT 1523 BY [place]. | | | | | | Testing performed at | | | | | | [facility];[address] [place] [address] | | | | | | [facility];[place] [address] | | | | + + + + + + + + | Specimen | + + | Blood | + + + + + + + | Performing | Address | City/State/Zipcode | Phone Number | | Organization | | | | + + + + + | [facility] | [address] | [place] [address] | [phone] | + + + + + POC [...] | | | POC | performed at [facility];[address] | | LABORATORY | | | | [address];[place] | | | | | | [address] | | | | + + + + + + + + | Specimen | + + | | + + + + + + + | Performing | Address | City/State/Zipcode | Phone Number | | Organization | | | | + + + + + | [facility] | [address] | [place] [address] | [phone] | + + + + + POC [...] | | | POC | performed at [facility];[address] | | LABORATORY | | | | [address];[place] | | | | | | [address] | | | | + + + + + + + + | Specimen | + + | | + + + + + + + | Performing | Address | City/State/Zipcode | Phone Number | | Organization | | | | + + + + + | [facility] | [address] | [place] [address] | [phone] | + + + + + Troponin I (02/14/2019 7:14 AM PDT) + + + + + + | Component | Value | Ref Range | Performed | Pathologist | | | | | At | Signature | + + + + + + | Troponin I | 12.832 ()Comment: | 0.00 - 0.04 | [facility] [...] | | | | BY:CARLA Baxter ON [id number] | | | | | | AT 0758 BY BENI. Testing | | | | | | performed at [facility];[address] | | | | | | [address] [facility];[place] | | | | | | [address] | | | | + + + + + + + + | Specimen | + + | Blood | + + + + + + + | Performing | Address | City/State/Zipcode | Phone Number | | Organization | | | | + + + + + | [facility] | [address] | [place] [address] | [phone] | + + + + + Hemoglobin A1C (02/14/2019 6:11 AM PDT) + + + + + + | Component | Value | Ref Range | Performed | Pathologist | | | | | At | Signature | + + + + + + | Hemoglobin | 7.4 (H)Comment: HbA1c | 4.0 - 6.0 % | [facility] | | | A1c | method [...] | 166 (H)Comment: | <154 mg/dL | [facility] | | | Average | Estimated Average | | LABORATORY | | | Glucose | Glucose calculated from | | | | | | hemoglobin A1c by use of | | | | | | the ADArecommended | | | | | | formula.Testing | | | | | | performed at [facility], [address] | | | | | | [address], | | | | | | [place] [address] | | | | + + + + + + + + | Specimen | + + | Blood | + + + + + + + | Performing | Address | City/State/Zipcode | Phone Number | | Organization | | | | + + + + + | [facility] | [address] | [place] [address] | [phone] | + + + + + PTT (02/14/2019 6:11 AM PDT) + + + + + + | Component | Value | Ref Range | Performed | Pathologist | | | | | At | Signature | + + + + + + | PTT | 44 (H)Comment: Testing | 23 - 32 seconds | [facility] | | | | performed at [facility];[address] | | LABORATORY | | | | [address];[place], [place] | | | | | | [address] | | | | + + + + + + + + | Specimen | + + | Blood | + + + + + + + | Performing | Address | City/State/Zipcode | Phone Number | | Organization | | | | + + + + + | [facility] | [address] | [place] [address] | [phone] | + + + + + Renal [...] 3.3 | 2.3 - 4.8 mg/dL | [facility] | | | | | | LABORATORY [...] | | | | | | MDRD IDTN traceable | | | | | | equation.Testing | | | | | | performed at [facility], [address] | | | | | | [facility], | | | | | | [place] [address] | | | | + + + + + + + + | Specimen | + + | Blood | + + + + + + + | Performing | Address | City/State/Zipcode | Phone Number | | Organization | | | | + + + + + | [facility] | [address] | [place] [address] | [phone] | + + + + + Troponin I (02/13/2019 11:43 PM PDT) + + + + + + | Component | Value | Ref Range | Performed | Pathologist | | | | | At | Signature | + + + + + + | Troponin I | 15.415 ()Comment: | 0.00 - 0.04 | [facility] | | | | 0.04 ng/mL [...] | | | | | performed at [facility] | | | | | | [facility];[place], [place] | | | | | | [address] | | | | + + + + + + + + | Specimen | + + | Blood | + + + + + + + | Performing | Address | City/State/Zipcode | Phone Number | | Organization | | | | + + + + + | [facility] | [address] | [place] [address] | [phone] | + + + + + POC [...] | | | POC | performed at [facility];[address] | | LABORATORY | | | | [address];[place] | | | | | | [address] | | | | + + + + + + + + | Specimen | + + | | + + + + + + + | Performing | Address | City/State/Zipcode | Phone Number | | Organization | | | | + + + + + | [facility] | [address] | [place] [address] | [phone] | + + + + + POC Glucose (02/13/2019 6:25 PM PDT) + + + + + + | Component | Value | Ref Range | Performed | Pathologist | | | | | At | Signature | + + + + + + | Glucose, | 123 (H)Comment: Testing | 65 - 99 mg/dL | [facility] | | | POC | performed at [facility];[address] | | LABORATORY | | | | [address];[place], [place] | | | | | | [address] | | | | + + + + + + + + | Specimen | + + | | + + + + + + + | Performing | Address | City/State/Zipcode | Phone Number | | Organization | | | | + + + + + | [facility] | [address] | [place] [address] | [phone] | + + + + + Troponin [...] 1544 | | | | | | [id number] KAWTesting | | | | | | performed at [facility] | | | | | | [facility];[place], [place] | | | | | | [address] | | | | + + + + + + + + | Specimen | + + | Blood | + + + + + + + | Performing | Address | City/State/Zipcode | Phone Number | | Organization | | | | + + + + + | [facility] | [address] | [place] [address] | [phone] | + + + + + POC Glucose (02/13/2019 11:46 AM PDT) + + + + + + | Component | Value | Ref Range | Performed | Pathologist | | | | | At | Signature | + + + + + + | Glucose, | 185 (H)Comment: Testing | 65 - 99 mg/dL | [facility] | | | POC | performed at [facility];[address] | | LABORATORY | | | | [address];[place] | | | | | | [address] | | | | + + + + + + + + | Specimen | + + | | + + + + + + + | Performing | Address | City/State/Zipcode | Phone Number | | Organization | | | | + + + + + | [facility] | [address] | [place] [address] | [phone] | + + + + + POC [...] | | | POC | performed at [facility];[address] | | LABORATORY | | | | [address];[place] | | | | | | [address] | | | | + + + + + + + + | Specimen | + + | | + + + + + + + | Performing | Address | City/State/Zipcode | Phone Number | | Organization | | | | + + + + + | [facility] | [address] | [place] [address] | [phone] | + + + + + Phosphorus (02/13/2019 7:42 AM PDT) + + + + + + | Component | Value | Ref Range | Performed | Pathologist | | | | | At | Signature | + + + + + + | Phosphorus | 4.1Comment: Testing | 2.3 - 4.8 mg/dL | [facility] | | | | performed at [facility];[address] | | LABORATORY | | | | [address];[place], [place] | | | | | | [address] | | | | + + + + + + + + | Specimen | + + | Blood | + + + + + + + | Performing | Address | City/State/Zipcode | Phone Number | | Organization | | | | + + + + + | [facility] | [address] [facility] | [place] [address] | [phone] | + + + + + Troponin I (02/13/2019 7:42 AM PDT) + + + + + + | Component | Value | Ref Range | Performed | Pathologist | | | | | At | Signature | + + + + + + | Troponin I | 16.442 ()Comment: | 0.00 - 0.04 | [facility] [...] | | | | | performed at [facility];[address] | | | | | | [address];[place], [place] | | | | | | [address] | | | | + + + + + + + + | Specimen | + + | Blood | + + + + + + + | Performing | Address | City/State/Zipcode | Phone Number | | Organization | | | | + + + + + | [facility] | [address] | [place] [address] | [phone] | + + + + + CBC [...] | | | Absolute | performed at [facility];[address] | K/uL | LABORATORY | | | | [address];[place] | | | | | | [address] | | | | + + + + + + + + | Specimen | + + | Blood | + + + + + + + | Performing | Address | City/State/Zipcode | Phone Number | | Organization | | | | + + + + + | [facility] | [address] | [place] [address] | [phone] | + + + + + Basic [...] 8.4 (L) | 8.5 - 10.5 | [facility] | | | | | mg/dL | LABORATORY | | + + + + + + | Estimated | 31 (L)Comment: GFR <60: | >60 | [facility] | | | GFR | CHRONIC [...] | | | | | | MDRD UTMS traceable | | | | | | equation.Testing | | | | | | performed at [facility] | | | | | | [facility];[place], [place] | | | | | | [address] | | | | + + + + + + + + | Specimen | + + | Blood | + + + + + + + | Performing | Address | City/State/Zipcode | Phone Number | | Organization | | | | + + + + + | [facility] | [address] | [place] [address] | [phone] | + + + + + PTT (02/13/2019 5:09 AM PDT) + + + + + + | Component | Value | Ref Range | Performed | Pathologist | | | | | At | Signature | + + + + + + | PTT | 47 (H)Comment: Testing | 23 - 32 seconds | [facility] | | | | performed at [facility];[address] | | LABORATORY | | | | [address];[place], [place] | | | | | | [address] | | | | + + + + + + + + | Specimen | + + | Blood | + + + + + + + | Performing | Address | City/State/Zipcode | Phone Number | | Organization | | | | + + + + + | [facility] | [address] [facility] | [place] [address] | [phone] | + + + + + Troponin I (02/12/2019 11:04 PM PDT) + + + + + + | Component | Value | Ref Range | Performed | Pathologist | | | | | At | Signature | + + + + + + | Troponin I | 19.769 ()Comment: | 0.00 - 0.04 | [facility] | | | | 0.04 ng/mL [...] Riggs | | | | | | RN/4RP AT 0002 02/13/19 | | | | | | BY SkuldtechREAD BACK RESULTS | | | | | | VERIFIEDTesting | | | | | | performed at [facility] | | | | | | [address];[place], [place] | | | | | | [address] | | | | + + + + + + + + | Specimen | + + | Blood | + + + + + + + | Performing | Address | City/State/Zipcode | Phone Number | | Organization | | | | + + + + + | [facility] | [address] | [place] [address] | [phone] | + + + + + POC Glucose (02/12/2019 9:16 PM PDT) + + + + + + | Component | Value | Ref Range | Performed | Pathologist | | | | | At | Signature | + + + + + + | Glucose, | 114 (H)Comment: Testing | 65 - 99 mg/dL | [facility] | | | POC | performed at [facility];[address] | | LABORATORY | | | | [address];[place] | | | | | | [address] | | | | + + + + + + + + | Specimen | + + | | + + + + + + + | Performing | Address | City/State/Zipcode | Phone Number | | Organization | | | | + + + + + | [facility] | [address] | [place] [address] | [phone] | + + + + + POC [...] | | | POC | performed at [facility];[address] | | LABORATORY | | | | [address];[place], [place] | | | | | | [address] | | | | + + + + + + + + | Specimen | + + | | + + + + + + + | Performing | Address | City/State/Zipcode | Phone Number | | Organization | | | | + + + + + | [facility] | [address] | [place] [address] | [phone] | + + + + + Troponin I (02/12/2019 3:51 PM PDT) + + + + + + | Component | Value | Ref Range | Performed | Pathologist | | | | | At | Signature | + + + + + + | Troponin I | 19.414 ()Comment: | 0.00 - 0.04 | [facility] [...] RESULTS | | | | | | VERIFIEDACFL4/ANABELA K | | | | | | AT 1638 BY SALTesting | | | | | | performed at [facility];[address] | | | | | | [facility];[place], [place] | | | | | | [address] | | | | + + + + + + + + | Specimen | + + | Blood | + + + + + + + | Performing | Address | City/State/Zipcode | Phone Number | | Organization | | | | + + + + + | [facility] | [address] | [place] [address] | [phone] | + + + + + Protein, Urine, Random (02/12/2019 3:05 PM PDT) + + + + + + | Component | Value | Ref Range | Performed | Pathologist | | | | | At | Signature | + + + + + + | Protein, | 345Comment: NO NORMAL | mg/dL | [facility] | | | Urine | RANGE ESTABLISHEDTesting | | LABORATORY | | | | performed at [facility], [address] | | [address], | | | | | | [place] [address] | | | | + + + + + + + + | Specimen | + + | | + + + + + + + | Performing | Address | City/State/Zipcode | Phone Number | | Organization | | | | + + + + + | [facility] | [address] | [place] [address] | [phone] | + + + + + Protein/Creatinine Ratio, Urine (02/12/2019 3:05 PM PDT) + + + + + + | Component | Value | Ref Range | Performed | Pathologist | | | | | At | Signature | + + + + + + | PRO/CREA | 1.364Comment: Testing | | [facility] | | | RATIO,URINE | performed at [facility], [address] | | LABORATORY | | | | [address], | | | | | | [place] [address] | | | | + + + + + + + + | Specimen | + + | | + + + + + + + | Performing | Address | City/State/Zipcode | Phone Number | | Organization | | | | + + + + + | [facility] | [address] | [place] [address] | [phone] | + + + + + Urinalysis [...] - 1.030 | [facility] | | | [place], | | | LABORATORY | | | [...] | | | CRYSTALS | performed at [facility] [place] | | LABORATORY | | | | Shiv Huang;[place], [place] | | | | | | [address] | | | | + + + [...] | + + + + + | [facility] | [address] | [place] [address] | [phone] | + + + + + Urea Nitrogen, Urine, Random (02/12/2019 3:05 PM PDT) + + + + + + | Component | Value | Ref Range | Performed | Pathologist | | | | | At | Signature | + + + + + + | Urea | 570.0Comment: NO NORMAL | mg/dL | [facility] | | | Nitrogen, | [facility] | | LABORATORY | | | Urine | performed at [facility], [address] | | | | | [address] [facility], | | | | | | [place] [address] | | | | + + + [...] | + + + + + | [facility] | [address] | [place] [address] | [phone] | + + + + + Sodium, Urine, Random (02/12/2019 3:05 PM PDT) + + + + + + | Component | Value | Ref Range | Performed | Pathologist | | | | | At | Signature | + + + + + + | Sodium, | 27Comment: NO NORMAL | mmol/L | [facility] | | | Random | [facility] | | LABORATORY | | | urine | performed at [facility], [address], | | | | | | [place] [address] | | | | + + + [...] | + + + + + | [facility] | [address] | [place] [address] | [phone] | + + + + + Eosinophil Smear, Urine (02/12/2019 3:05 PM PDT) + + + + + + | Component | Value | Ref Range | Performed | Pathologist | | | | | At | Signature | + + + + + + | Eosinophils | NO EOSINOPHILS | <1 % | [facility] | | | | SEENComment: Testing | | LABORATORY | | | | performed at [facility], [address] | | | | | [address], | | | | | | [place] [address] | | | | + + + [...] | + + + + + | [facility] | [address] | [place] [address] | [phone] | + + + + + Creatinine, Urine, Random (02/12/2019 3:05 PM PDT) + + + + + + | Component | Value | Ref Range | Performed | Pathologist | | | | | At | Signature | + + + + + + | Creatinine, | 253.0Comment: NO NORMAL | mg/dL | [facility] | | | random | RANGE ESTABLISHEDTesting | | LABORATORY | | | urine | performed at [facility], [address] | | | | | [address], | | | | | | [place] [address] | | | | + + + [...] | + + + + + | [facility] | [address] | [place] [address] | [phone] | + + + + + Chloride, Urine, Random (02/12/2019 3:05 PM PDT) + + + + + + | Component | Value | Ref Range | Performed | Pathologist | | | | | At | Signature | + + + + + + | RANDOM | 50Comment: NO NORMAL | mmol/L | [facility] | | | URINE | RANGE ESTABLISHEDTesting | | LABORATORY | | | CHLORIDE | performed at [facility], [address], | | | | | | [place] [address] | | | | + + + [...] | + + + + + | [facility] | [address] | [place] [address] | [phone] | + + + + + POC Glucose (02/12/2019 11:15 AM PDT) + + + + + + | Component | Value | Ref Range | Performed | Pathologist | | | | | At | Signature | + + + + + + | Glucose, | 212 (H)Comment: Testing | 65 - 99 mg/dL | [facility] | | | POC | performed at [facility];[address] | | LABORATORY | | | | [address];[place], [place] | | | | | | [address] | | | | + + + + + + + + | Specimen | + + | | + + + + + + + | Performing | Address | City/State/Zipcode | Phone Number | | Organization | | | | + + + + + | [facility] | [address] | [place] [address] | [phone] | + + + + + ECHO [...] | | | | | | n [place] | | | | | + + [...] | | | | Signed by: Radha Day, Wilda | | Sign Date/Time: 02/12/2019 10:43 AM [...] | Ej, Rad Results In - 02/12/2019 9:12 AM PDT [...] 22.34 ()Comment: | 0.00 - 0.04 | [facility] [...] | | | | | performed at [facility];[address] | | | | | | [facility];[place], [place] | | | | | | [address] | | | | + + + + + + + + | Specimen | + + | Blood | + + + + + + + | Performing | Address | City/State/Zipcode | Phone Number | | Organization | | | | + + + + + | [facility] | [address] | [place] [address] | [phone] | + + + + + POC Glucose (02/12/2019 5:56 AM PDT) + + + + + + | Component | Value | Ref Range | Performed | Pathologist | | | | | At | Signature | + + + + + + | Glucose, | 115 (H)Comment: Testing | 65 - 99 mg/dL | [facility] | | | POC | performed at [facility];[address] | | LABORATORY | | | | [address];[place] | | | | | | [address] | | | | + + + + + + + + | Specimen | + + | | + + + + + + + | Performing | Address | City/State/Zipcode | Phone Number | | Organization | | | | + + + + + | [facility] | [address] | [place] [address] | [phone] | + + + + + PTT (02/12/2019 5:12 AM PDT) + + + + + + | Component | Value | Ref Range | Performed | Pathologist | | | | | At | Signature | + + + + + + | PTT | 49 (H)Comment: Testing | 23 - 32 seconds | [facility] | | | | performed at [facility];[address] | | LABORATORY | | | | [address];[place] | | | | | | [address] | | | | + + + + + + + + | Specimen | + + | Blood | + + + + + + + | Performing | Address | City/State/Zipcode | Phone Number | | Organization | | | | + + + + + | [facility] | [address] | [place] [address] | [phone] | + + + + + Basic [...] 32 (L)Comment: GFR <60: | >60 | [facility] [...] | | | | | performed at [facility], [address] | | | | | [address], | | | | | | [place] [address] | | | | + + + + + + + + | Specimen | + + | Blood | + + + + + + + | Performing | Address | City/State/Zipcode | Phone Number | | Organization | | | | + + + + + | [facility] | [address] | [place] [address] | [phone] | + + + + + CBC [...] [facility] | | | | performed at [facility], [address] | | LABORATORY | | | | [address], | | | | | | [place] [address] | | | | + + + + + + + + | Specimen | + + | Blood | + + + + + + + | Performing | Address | City/State/Zipcode | Phone Number | | Organization | | | | + + + + + | [facility] | [address] | [place] [address] | [phone] | + + + + + CK Total (02/12/2019 5:12 AM PDT) + + + + + + | Component | Value | Ref Range | Performed | Pathologist | | | | | At | Signature | + + + + + + | CK TOTAL | 309Comment: Testing | 55 - 400 U/L | [facility] | | | | performed at [facility];[address] | | LABORATORY | | | | [address];[place] | | | | | | [address] | | | | + + + + + + + + | Specimen | + + | Blood | + + + + + + + | Performing | Address | City/State/Zipcode | Phone Number | | Organization | | | | + + + + + | [facility] | [address] | [place] [address] | [phone] | + + + + + ECG [...] | | | POC | performed at [facility];[address] | | LABORATORY | | | | [address];[place] | | | | | | [address] | | | | + + + + + + + + | Specimen | + + | | + + + + + + + | Performing | Address | City/State/Zipcode | Phone Number | | Organization | | | | + + + + + | [facility] | [address] | [place] [address] | [phone] | + + + + + POC Glucose (02/11/2019 8:56 PM PDT) + + + + + + | Component | Value | Ref Range | Performed | Pathologist | | | | | At | Signature | + + + + + + | Glucose, | 141 (H)Comment: Testing | 65 - 99 mg/dL | [facility] | | | POC | performed at [facility];[address] | | LABORATORY | | | | [address];[place] | | | | | | [address] | | | | + + + + + + + + | Specimen | + + | | + + + + + + + | Performing | Address | City/State/Zipcode | Phone Number | | Organization | | | | + + + + + | [facility] | [address] | [place] [address] | [phone] | + + + + + PTT (02/11/2019 7:45 PM PDT) + + + + + + | Component | Value | Ref Range | Performed | Pathologist | | | | | At | Signature | + + + + + + | PTT | 46 (H)Comment: Testing | 23 - 32 seconds | [facility] | | | | performed at [facility];[address] | | LABORATORY | | | | [address];[place], [place] | | | | | | [address] | | | | + + + + + + + + | Specimen | + + | Blood | + + + + + + + | Performing | Address | City/State/Zipcode | Phone Number | | Organization | | | | + + + + + | [facility] | [address] | [place] [address] | [phone] | + + + + + POC [...] | | | POC | performed at [facility];[address] | | LABORATORY | | | | [address];[place], [place] | | | | | | [address] | | | | + + + + + + + + | Specimen | + + | | + + + + + + + | Performing | Address | City/State/Zipcode | Phone Number | | Organization | | | | + + + + + | [facility] | [address] | [place] [address] | [phone] | + + + + + ECG [...] (H)Comment: Testing | 74 - 137 | [facility] | | | Clotting | performed at [facility];[address] | seconds | LABORATORY | | | Time, POC | [address];[place], [place] | | | | | | [address] | | | | + + + + + + + + | Specimen | + + | | + + + + + + + | Performing | Address | City/State/Zipcode | Phone Number | | Organization | | | | + + + + + | [facility] | [address] | [place] [address] | [phone] | + + + + + POC Glucose (02/11/2019 12:33 PM PDT) + + + + + + | Component | Value | Ref Range | Performed | Pathologist | | | | | At | Signature | + + + + + + | Glucose, | 124 (H)Comment: Testing | 65 - 99 mg/dL | [facility] | | | POC | performed at [facility];[address] | | LABORATORY | | | | [address];[place], [place] | | | | | | [address] | | | | + + + + + + + + | Specimen | + + | | + + + + + + + | Performing | Address | City/State/Zipcode | Phone Number | | Organization | | | | + + + + + | [facility] | [address] | [place] [address] | [phone] | + + + + + PTT (02/11/2019 11:47 AM PDT) + + + + + + | Component | Value | Ref Range | Performed | Pathologist | | | | | At | Signature | + + + + + + | PTT | 48 (H)Comment: Testing | 23 - 32 seconds | [facility] | | | | performed at [facility];[address] | | LABORATORY | | | | [address];[place], [place] | | | | | | [address] | | | | + + + + + + + + | Specimen | + + | Blood | + + + + + + + | Performing | Address | City/State/Zipcode | Phone Number | | Organization | | | | + + + + + | [facility] | [address] | [place] [address] | [phone] | + + + + + Troponin I (02/11/2019 11:47 AM PDT) + + + + + + | Component | Value | Ref Range | Performed | Pathologist | | | | | At | Signature | + + + + + + | Troponin I | 14.741 ()Comment: | 0.00 - 0.04 | [facility] | | | | 0.04 ng/mL [...] NURSING | | | | | | [facility]/6 RP @ 1227 | | | | | | BY BURTREAD BACK RESULTS | | | | | | VERIFIEDTesting | | | | | | performed at [facility];[address] | | | | | | [address];[place] | | | | | | [address] | | | | + + + + + + + + | Specimen | + + | Blood | + + + + + + + | Performing | Address | City/State/Zipcode | Phone Number | | Organization | | | | + + + + + | [facility] | [address] | [place] [address] | [phone] | + + + + + ECG [...] Testing | 55 - 400 U/L | [facility] | | | | performed at [facility];[address] | | LABORATORY | | | | [address];[place], [place] | | | | | | [address] | | | | + + + + + + + + | Specimen | + + | Blood | + + + + + + + | Performing | Address | City/State/Zipcode | Phone Number | | Organization | | | | + + + + + | [facility] | [address] | [place] [address] | [phone] | + + + + + TSH (02/11/2019 7:43 AM PDT) + + + + + + | Component | Value | Ref Range | Performed | Pathologist | | | | | At | Signature | + + + + + + | TSH | 0.779Comment: Testing | 0.450 - 5.100 | [facility] | | | | performed at [facility];[address] | uIU/mL | LABORATORY | | | | [address];[place], [place] | | | | | | [address] | | | | + + + + + + + + | Specimen | + + | Blood | + + + + + + + | Performing | Address | City/State/Zipcode | Phone Number | | Organization | | | | + + + + + | [facility] | [address] | [place] [address] | [phone] | + + + + + B Type Natriuretic Peptide (02/11/2019 7:43 AM PDT) + + + + + + | Component | Value | Ref Range | Performed | Pathologist | | | | | At | Signature | + + + + + + | BNP | 406.69 (H)Comment: | 0 - 100 pg/mL | [facility] | | | | Testing performed at | | LABORATORY | | | | [facility];[address];[place] [address] | | | | + + + + + + + + | Specimen | + + | Blood | + + + + + + + | Performing | Address | City/State/Zipcode | Phone Number | | Organization | | | | + + + + + | [facility] | [address] | [place] [address] | [phone] | + + + + + Lipid [...] | 95Comment: Testing | <100 mg/dL | [facility] | | | Calculated | performed at [facility], [address] | | LABORATORY | | | | [address], | | | | | | [place] [address] | | | | + + + + + + + + | Specimen | + + | Blood | + + + + + + + | Performing | Address | City/State/Zipcode | Phone Number | | Organization | | | | + + + + + | [facility] | [address] | [place] [address] | [phone] | + + + + + Comprehensive [...] 41 | 10 - 65 U/L | [facility] | | | | | | LABORATORY | | + + + + + + | Estimated | 40 (L)Comment: GFR <60: | >60 | [facility] | | | GFR | CHRONIC [...] | | | | | performed at [facility], [address] | | | | | | [facility], | | | | | | [place] [address] | | | | + + + + + + + + | Specimen | + + | Blood | + + + + + + + | Performing | Address | City/State/Zipcode | Phone Number | | Organization | | | | + + + + + | [facility] | [address] | [place] [address] | [phone] | + + + + + CBC [...] [facility] | | | | performed at [facility], [address] | | LABORATORY | | | | [address], | | | | | | [place] [address] | | | | + + + + + + + + | Specimen | + + | Blood | + + + + + + + | Performing | Address | City/State/Zipcode | Phone Number | | Organization | | | | + + + + + | [facility] | [address] | [place] [address] | [phone] | + + + + + Troponin [...] | | | | UNITMELODY V/6RP @ 0834 | | | | | | BY SportsBUZZ BACK RESULTS | | | | | | VERIFIEDTesting | | | | | | performed at [facility] | | | | | | [address];[place] | | | | | | [address] | | | | + + + + + + + + | Specimen | + + | Blood | + + + + + + + | Performing | Address | City/State/Zipcode | Phone Number | | Organization | | | | + + + + + | [facility] | [address] | [place] [address] | [phone] | + + + + + POC [...] | | | POC | performed at [facility];[address] | | LABORATORY | | | | [address];[place] | | | | | | [address] | | | | + + + + + + + + | Specimen | + + | | + + + + + + + | Performing | Address | City/State/Zipcode | Phone Number | | Organization | | | | + + + + + | [facility] | [address] | [place] [address] | [phone] | + + + + + Troponin I (02/11/2019 3:56 AM PDT) + + + + + + | Component | Value | Ref Range | Performed | Pathologist | | | | | At | Signature | + + + + + + | Troponin I | 9.098 ()Comment: | 0.00 - 0.04 | [facility] [...] | | | | CALLED TO DR. 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 | | | | [...] aortocoronary bypass status | + + | NSTEMI (non-ST elevated myocardial infarction) (HCC) Acute myocardial infarction, | | subendocardial infarction, episode of care unspecified | + + | CKD (chronic kidney disease) stage 4, GFR 15-29 ml/min (HCC) Chronic kidney disease, | | Stage IV (severe) | + + | Acute coronary syndrome (HCC) Intermediate coronary syndrome | + + | Acute renal failure with other specified pathological kidney lesion superimposed on | | stage 3 chronic kidney disease (HCC) | + + | Paroxysmal atrial fibrillation (HCC) Atrial fibrillation | + + | Chest pain, unspecified type | + + | Atherosclerosis of coronary artery, angina presence unspecified, unspecified vessel or | | lesion type, unspecified whether [place] or transplanted heart | + + | Type 2 diabetes mellitus with stage 3 chronic kidney disease, with long-term current | | use of insulin (HCC) | + + | Hyperlipidemia, unspecified hyperlipidemia type | + + | JAMESON (acute kidney injury) (HCC) Acute kidney failure, unspecified | + + | CKD (chronic kidney disease) stage 3, GFR 30-59 ml/min ([facility]) Chronic kidney disease, | | Stage III (moderate) | + + | Essential hypertension with goal blood pressure less than 130/85 | + + | Electrolyte imbalance risk Other specified conditions influencing health status | + + | Hypoalbuminemia Other disorders of plasma protein metabolism | + + | Anemia of chronic kidney failure, stage 3 (moderate) (HCC) | + + | Hyperkalemia Hyperpotassemia | + + | Edema, unspecified type | + + | Anemia, unspecified type | + + | C. difficile diarrhea Intestinal infection due to clostridium difficile | + + | S/P CABG (coronary artery bypass graft) Postsurgical aortocoronary bypass status | + + | Reactive thrombocytosis | + + | Chronic kidney disease, unspecified CKD stage | + + | Ischemic cardiomyopathy Other specified forms of chronic ischemic heart disease | + + | DM (diabetes mellitus) ([facility]) Type II or unspecified type diabetes mellitus without | | mention of complication, not stated as uncontrolled | + + | A-fib ([facility]) Atrial fibrillation | + + documented in this encounter Administered Medications + +--------+ + +------+------+ | Medication Order | MAR | Action | Dose | Rate | Site | | | Action | Date | | | | + +--------+ + +------+------+ | acetaminophen (TYLENOL) tablet | Given | 02/21/20 | 1,000 mg | | | | 1,000 mg 1,000 mg, Oral, EVERY 8 | | 19 5:40 | | | | | HOURS (3 times per day), First | | AM PDT | | | | | dose on [facility] 02/15/19 at 1400, | | | | | | | Start 8 hours after pre-op dose., | | | | | | | | | | | | | + +--------+ + +------+------+ +-------+ + +---+---+ | Given | 02/20/20 | 1,000 mg | | | | | 19 8:24 | | | | | | PM PDT | | | | +-------+ + +---+---+ | Given | 02/20/20 | 1,000 mg | | | | | 19 5:48 | | | | | | AM PDT | | | | +-------+ + +---+---+ +---+---+ | | | +---+---+ + +-------+ +--------+---+---+ | acetaminophen (TYLENOL) tablet | Given | [...] +-------+ +--------+---+---+ +-------+ +--------+---+---+ | Given | 02/27/20 | [...] +--------+-------+---+ +---+---+ | | | +---+---+ + +---------+ +------+-------+---+ | albumin 5% IVPB 25 g 25 g, | New Bag | 02/19/20 | 25 g | 500 | | | Intravenous, Administer over 1 | | 19 8:02 | | mL/hr | | | Hours, 2 TIMES DAILY, First dose | | PM PDT | | | | | on 02/18/19 at 0915, For 2 | | | | | | | doses | | | | | | + +---------+ +------+-------+---+ +---------+ +------+-------+---+ | New Bag | 02/19/20 | 25 g | 500 | | | | 19 9:33 | | mL/hr | | | | AM PDT | | | | +---------+ +------+-------+---+ +---+---+ | | | +---+---+ + +---------+ +------+-------+---+ | albumin 5% IVPB 50 g 50 g, | New Bag | 02/28/20 | 50 g | 1000 | | | Intravenous, Administer over 1 | | 19 5:38 | | mL/hr | | | Hours, ONCE, 02/27/19 at 1545, | | PM PST | | | | | For 1 dose | | | | | | + +---------+ +------+-------+---+ +---+---+ | | | +---+---+ + +-------+ +-------+---+---+ | albuterol-ipratropium 2.5-0.5 | Given | 02/16/20 | 3 mLs | | | | mg/3 mL nebulizer solution 3 mL | | 19 6:51 | | | | | 3 mL, Nebulization, RT Once, Cookie | | AM PDT | | | | | 02/15/19 at 0800, For 1 dose, | | | | | | | Pre-op | | | | | | + +-------+ +-------+---+---+ + +---+ | | | + +---+ | albuterol-ipratropium 2.5-0.5 | | | mg/3 mL nebulizer solution | | | Starting Cookie 02/15/19 at 0648, | | | For 1 dose, Duane Rios : | | | ace chavira, | | + +---+ | | | + +---+ + +-------+ +--------+---+---+ | amLODIPine (NORVASC) tablet 2.5 | Given | 02/15/20 | 2.5 mg | | | | mg 2.5 mg, Oral, DAILY, First | | 19 8:45 | | | | | dose (after last modification) on | | AM PDT | | | | | 02/13/19 at 0900, Hold for | | | | | | | SBP<140 mmHg., | | | | | | + +-------+ +--------+---+---+ +-------+ +--------+---+---+ | Given | 02/14/20 | 2.5 mg | | | | | 19 9:10 | | | | | | AM PDT | | | | +-------+ +--------+---+---+ +---+---+ | | | +---+---+ + +-------+ +------+---+---+ | amLODIPine (NORVASC) tablet 5 | Given | 02/12/20 | 5 mg | | | | mg 5 mg, Oral, DAILY, First dose | | 19 10:56 | | | | | on 02/11/19 at 1015 | | AM PDT | | | | + +-------+ +------+---+---+ +---+---+ | | | +---+---+ + +-------+ +-------+---+---+ | aspirin chewable tablet 81 mg | Given | 02/20/20 | 81 mg | | | | 81 mg, Oral, DAILY, First dose on | | 19 8:39 | | | | | Cookie 02/15/19 at 1345, Initiated | | AM PDT | | | | | within 6 hours of arrival in the | | | | | | | intensive care unit if aspirin | | | | | | | was not administered | | | | | | | preoperatively. If unable to take | | | | | | | po tablet - may give rectal | | | | | | | aspirin, if ordered., | | | | | | + +-------+ +-------+---+---+ +-------+ +-------+---+---+ | Given | 02/19/20 | 81 mg | | | | | 19 9:33 | | | | | | AM PDT | | | | +-------+ +-------+---+---+ | Given | 02/18/20 | 81 mg | | | | | 19 9:31 | | | | | | AM PDT | | | | +-------+ +-------+---+---+ +---+---+ [...] | | +---+---+ + +-------+ +-------+---+---+ | aspirin EC tablet 81 mg 81 mg, | Given | 02/15/20 | 81 mg | | | | Oral, DAILY, First dose on Sun | | 19 8:45 | | | | | 02/11/19 at 1015 | | AM PDT | | | | + +-------+ +-------+---+---+ +-------+ +-------+---+---+ | Given | 02/14/20 | 81 mg | | | | | 19 9:10 | | | | | | AM PDT | | | | +-------+ +-------+---+---+ | Given | 02/13/20 | 81 mg | | | | | 19 7:47 | | | | | | AM PDT | | | | +-------+ +-------+---+---+ +---+---+ | | | +---+---+ + +-------+ +-------+---+---+ | aspirin EC tablet 81 mg 81 mg, | Given | 02/26/20 | 81 mg | | | | Oral, DAILY, First dose on Tue | | 19 7:53 | | | | | 02/20/19 at 1000 | | AM PST | | | | + +-------+ +-------+---+---+ +-------+ +-------+---+---+ | Given | 02/25/20 | 81 mg | | | | | 19 8:36 | | | | | | AM PDT | | | | +-------+ +-------+---+---+ | Given | 02/24/20 | 81 mg | | | | | 19 9:24 | | | | | | AM PDT | | | | +-------+ +-------+---+---+ +---+---+ | | | +---+---+ + +-------+ +-------+---+---+ | atorvaSTATin (LIPITOR) tablet | Given | 02/28/20 | 40 mg | | | | 40 mg 40 mg, Oral, NIGHTLY, | | 19 7:59 | | | | | First dose on Tue02/15/19 at | | PM PST | | [...] +-------+---+---+ +---+---+ | | | +---+---+ + +---------+ +---+ +---+ | balanced electrolytes in water | New Bag | 02/16/20 | | 30 mL/hr | | | - pH 7.4 (NORMOSOL-R pH | | 19 6:52 | | | | | 7.4/PLASMALYTE-A) infusion at 30 | | AM PDT | | | | | mL/hr, Intravenous, CONTINUOUS, | | | | | | | Starting [facility] 02/15/19 at 0630, | | | | | | | Pre-op, Pre-op | | | | | | + +---------+ +---+ +---+ +---+---+ | | | +---+---+ + +-------+ +---+---+---+ | chlorhexidine (HIBICLENS) 4 % | Given | 02/16/20 | | | | | liquid Topical, 2 TIMES DAILY, | | 19 4:00 | | | | | First dose (after last | | AM PDT | | | | | modification) on [facility] 02/15/19 at | | | | | | | 0000, For 2 doses, Apply to: | | | | | | | Chest-Left Anterior, Chest-Right | | | | | | | Anterior | | | | | | + +-------+ +---+---+---+ +-------+ +---+---+---+ | Given | 02/16/20 | | | | | | 19 12:00 | | | | | | AM PDT | | | | +-------+ +---+---+---+ +---+---+ | | | +---+---+ + +-------+ +-------+---+---+ | clopidogrel (PLAVIX) tablet 75 | Given | 02/23/20 | 75 mg | | | | mg 75 mg, Oral, DAILY, First | | 19 8:04 | | | | | dose on Tue02/16/19 at 1000 | | AM PDT | | | | + +-------+ +-------+---+---+ +-------+ +-------+---+---+ | Given | 02/22/20 | 75 mg | | | | | 19 10:12 | | | | | | AM PDT | | | | +-------+ +-------+---+---+ | Given | 02/21/20 | 75 mg | | | | | 19 9:58 | | | | | | AM PDT | | | | +-------+ +-------+---+---+ +---+---+ | | | +---+---+ + + + + +-------+---+ | dexmedetomidine in saline | Rate/Dos | 02/17/20 | 0.4 | 9.4 | | | (PRECEDEX) 4 mcg/mL infusion | e Change | 19 12:50 | mcg/kg/h | mL/hr | | | 0.2-1.5 mcg/kg/hr | | AM PDT | r | | | | 94.1 kg (4.705-35.2875 mL/hr, | | | | | | | rounded to 4.7-35.3 mL/hr), at | | | | | | | 4.7-35.3 mL/hr, Intravenous, | | | | | | | TITRATED, Starting [facility] 02/15/19 | | | | | | | at 1345, Reduce dose every 4 | | | | | | | hours to the lowest dose required | | | | | | | to meet sedation goal., | | | | | | | Titration Instruction: See below, | | | | | | | Goal: Other, Other goal: RASS | | | | | | | goal in pain/sedation management | | | | | | | order, Initial dose: 0.2 | | | | | | | mcg/kg/hr, Increase rate by: 0.2 | | | | | | | mcg/kg/hr every 30 minutes., | | | | | | | Decrease rate by: 0.2 mcg/kg/hr | | | | | | | every 30 minutes., *: Titrate | | | | | | | drug per order as tolerated. | | | | | | | Titration may vary based on the | | | | | | | patient | | | | | | | | | | | | | | s critical condition., | | | | | | | Post-op/Phase II | | | | | | + + + + +-------+---+ + + + +-------+---+ | Rate/Dose Change | 02/17/20 | 0.2 | 4.7 | | | | 19 12:35 | mcg/kg/h | mL/hr | | | | AM PDT | r | | | + + + +-------+---+ | New Bag | 02/16/20 | 0.2 | 4.7 | | | | 19 7:32 | mcg/kg/h | mL/hr | | | | PM PDT | r | | | + + + +-------+---+ + +---+ | | | + +---+ | dextrose 10% (D10W) infusion | | | at 50 mL/hr, Intravenous, | | | CONTINUOUS PRN, hypoglycemia, | | | Starting Tue02/16/19 at 1136, | | | Start infusion [...] +---+ | | | + +---+ + +---------+ +---+ +---+ | dextrose 5% and sodium chloride | New Bag | 02/17/20 | | 50 mL/hr | | | 0.45% (D5 1/2 NS) infusion at | | 19 3:07 | | | | | 50 mL/hr, Intravenous, | | AM PDT | | | | | CONTINUOUS, Starting Cookie 02/15/19 | | | | | | | at 1345, Post-op/Phase II | | | | | | + +---------+ +---+ +---+ +---------+ +---+ +---+ | New Bag | 02/16/20 | | 50 mL/hr | | | | 19 2:06 | | | | | | PM PDT | | | | +---------+ +---+ +---+ + +---+ | | | + +---+ [...] | + +---+ + +-------+ +---------+---+---+ | diphenoxylate-atropine | Given | 02/26/20 | 2 | | | | (LOMOTIL) 2.5-0.025 mg per tablet | | 19 12:20 | tablets | | | | 2 tablet 2 tablet, Oral, ONCE, | | PM PST | | | | | 02/25/19 at 1100, For 1 dose | | | | | | + +-------+ +---------+---+---+ +---+---+ | | | +---+---+ + +-------+ +--------+---+---+ | docusate sodium (COLACE) | Given | 02/15/20 | 100 mg | | | | capsule 100 mg 100 mg, Oral, | | 19 8:45 | | | | | DAILY, First dose on Tue02/13/19 | | AM PDT | | | | | at 1015, Swallow capsule whole., | | | | | | | | | | | | | + +-------+ +--------+---+---+ +-------+ +--------+---+---+ | Given | 02/14/20 | 100 mg | | | | | 19 12:12 | | | | | | PM PDT | | | | +-------+ +--------+---+---+ +---+---+ | | | +---+---+ + +-------+ +--------+---+---+ | docusate sodium (COLACE) | Given | 02/21/20 | 100 mg | | | | capsule 100 mg 100 mg, Oral, 2 | | 19 7:33 | | | | | TIMES DAILY, First dose on Cookie | | PM PDT | | | | | 02/15/19 at 1345, First line | | | | | | | agent for constipation, | | | | | | + +-------+ +--------+---+---+ +-------+ +--------+---+---+ | Given | 02/21/20 | 100 mg | | | | | 19 9:58 | | | | | | AM PDT | | | | +-------+ +--------+---+---+ | Given | 02/20/20 | 100 mg | | | | | 19 8:24 | | | | | | PM PDT | | | | +-------+ +--------+---+---+ +---+---+ | | | +---+---+ + + + +---------+---------+---+ | EPINEPHrine 20 mcg/mL in sodium | Rate/Dos | 02/17/20 | 1 | 3 mL/hr | | | chloride 0.9% 500 mL infusion | e Change | 19 6:30 | mcg/min | | | | 1-10 mcg/min (3-30 mL/hr), at | | AM PDT | | | | | 3-30 mL/hr, Intravenous, | | | | | | | TITRATED, Starting Cookie 02/15/19 | | | | | | | at 1345, Titration Instruction: | | | | | | | See below, Goal: MAP 65 and | | | | | | | greater, SBP greater than 90, | | | | | | | Initial dose: 1 mcg/min, Increase | | | | | | | rate by: 1 mcg/min every 5 | | | | | | | minutes., Decrease rate by: 1 | | | | | | | mcg/min every 5 minutes., *: | | | | | | | Titrate drug per order as | | | | | | | tolerated. Titration may vary | | | | | | | based on the patient | | | | | | | | | | | | | | s critical condition., | | | | | | | Post-op/Phase II | | | | | | + + + +---------+---------+---+ + + +---------+---------+---+ | Rate/Dose Change | 02/16/20 | 2 | 6 mL/hr | | | | 19 11:36 | mcg/min | | | | | PM PDT | | | | + + +---------+---------+---+ | Rate/Dose Change | 02/16/20 | 1 | 3 mL/hr | | | | 19 11:25 | mcg/min | | | | | PM PDT | | | | + + +---------+---------+---+ +---+---+ | | | +---+---+ + +-------+ +-------+---+---+ | famotidine (PEPCID) tablet 20 | Given | 02/18/20 | 20 mg | | | | mg 20 mg, Oral, 2 TIMES DAILY, | | 19 9:37 | | | | | First dose on [facility] 02/15/19 at | | PM PDT | | | | | 1345, Post-op/Phase II | | | | | | + +-------+ +-------+---+---+ +-------+ +-------+---+---+ | Given | 02/18/20 | 20 mg | | | | | 19 9:31 | | | | | | AM PDT | | | | +-------+ +-------+---+---+ | Given | 02/17/20 | 20 mg | | | | | 19 10:00 | | | | | | AM PDT | | | | +-------+ +-------+---+---+ +---+---+ | | | +---+---+ + +-------+ +--------+---+---+ | fenofibrate tablet 160 mg 160 | Given | 02/15/20 | 160 mg | | | | mg, Oral, NIGHTLY, First dose on | | 19 9:13 | | | | | 02/11/19 at 2100 | | PM PDT | | | | + +-------+ +--------+---+---+ +-------+ +--------+---+---+ | Given | 02/14/20 | 160 mg | | | | | 19 8:05 | | | | | | PM PDT | | | | +-------+ +--------+---+---+ | Given | 02/13/20 | 160 mg | | | | | 19 9:22 | | | | | | PM PDT | | | | +-------+ +--------+---+---+ +---+---+ | | | +---+---+ + +-------+ +------+---+---+ | folic acid tablet 1 mg 1 mg, | Given | 02/15/20 | 1 mg | | | | Oral, DAILY, First dose on Sun | | 19 8:45 | | | | | 02/11/19 at 1015 | | AM PDT | | | | + +-------+ +------+---+---+ +-------+ +------+---+---+ | Given | 02/14/20 | 1 mg | | | | | 19 9:11 | | | | | | AM PDT | | | | +-------+ +------+---+---+ | Given | 02/13/20 | 1 mg | | | | | 19 7:47 | | | | | | AM PDT | | | | +-------+ +------+---+---+ +---+---+ | | | +---+---+ + +-------+ +-------+---+---+ | furosemide (LASIX) injection 20 | Given | 02/17/20 | 20 mg | | | | mg 20 mg, Intravenous, ONCE, | | 19 5:21 | | | | | 02/16/19 at 1630, For 1 dose | | PM PDT | | | | + +-------+ +-------+---+---+ +---+---+ | | | +---+---+ + +-------+ +-------+---+---+ | furosemide (LASIX) injection 20 | Given | 02/20/20 | 20 mg | | | | mg 20 mg, Intravenous, 2 TIMES | | 19 4:07 | | | | | DAILY 0800 & 1600, First dose on | | PM PDT | | | | | 02/19/19 at 0800 | | | | | | + +-------+ +-------+---+---+ +-------+ +-------+---+---+ | Given | 02/20/20 | 20 mg | | | | | 19 8:39 | | | | | | AM PDT | | | | +-------+ +-------+---+---+ +---+---+ | | | +---+---+ + +-------+ +-------+---+---+ | furosemide (LASIX) injection 40 | Given | 02/12/20 | 40 mg | | | | mg 40 mg, Intravenous, ONCE, | | 19 10:33 | | | | | 02/11/19 at 2215, For 1 dose | | PM PDT | | | | + +-------+ +-------+---+---+ +---+---+ | | | +---+---+ + +-------+ +-------+---+---+ | furosemide (LASIX) injection 40 | Given | 02/19/20 | 40 mg | | | | mg 40 mg, Intravenous, ONCE, | | 19 12:06 | | | | | 02/18/19 at 1200, For 1 dose | | PM PDT | | | | + +-------+ +-------+---+---+ +---+---+ | | | +---+---+ + +-------+ +-------+---+---+ | furosemide (LASIX) tablet 40 mg | Given | 02/24/20 | 40 mg | | | | 40 mg, Oral, DAILY, First dose | | 19 9:24 | | | | | on 02/20/19 at 1015 | | AM PDT | | | | + +-------+ +-------+---+---+ +-------+ +-------+---+---+ | Given | 02/23/20 | 40 mg | | | | | 19 8:04 | | | | | | AM PDT | | | | +-------+ +-------+---+---+ | Given | 02/22/20 | 40 mg | | | | | 19 10:13 | | | | | | AM PDT | | | | +-------+ +-------+---+---+ +---+---+ | | | +---+---+ + +-------+ +-------+---+---+ | furosemide (LASIX) tablet 40 mg | Given | 02/28/20 | 40 mg | | | | 40 mg, Oral, DAILY, First dose | | 19 7:56 | | | | | on 02/26/19 at 1100 | | AM PST | | | | + +-------+ +-------+---+---+ +-------+ +-------+---+---+ | Given | 02/27/20 | 40 mg | | | | | 19 11:10 | | | | | | AM PST | | | | +-------+ +-------+---+---+ +---+---+ | | | +---+---+ + +-------+ +--------+---+---+ | heparin 1,000 units/mL | Given | 02/12/20 | 5,000 | | | | injection 5,000 Units 5,000 | | 19 5:19 | Units | | | | Units, Intravenous, ONCE, Sun | | AM PDT | | | | | 02/11/19 at 0510, For 1 dose, | | | | | | | Heparin Protocol - Cardiac Dose | | | | | | | Initial Bolus Give heparin 5,000 | | | | | | | units x1 (60 units/kg IV x 1, | | | | | | | round to nearest 100 units, max | | | | | | | 5000 units), | | | | | | + +-------+ +--------+---+---+ +---+---+ | | | +---+---+ + +---------+ + +-------+---+ | heparin in dextrose 100 | New Bag | 02/15/20 | 16 | 15.2 | | | units/mL infusion 10.5 | | 19 11:55 | Units/kg | mL/hr | | | Units/kg/hr | | PM PDT | /hr | | | | 95.3 kg (10.0065 mL/hr, rounded | | | | | | | to 10 mL/hr), at 10 mL/hr, | | | | | | | Intravenous, TITRATED, Starting | | | | | | | 02/11/19 at 0510, CARDIAC | | | | | | | DOSE HEPARIN PROTOCOL STARTING | | | | | | | heparin infusion dose 12 | | | | | | | units/kg/hr, initial rate max | | | | | | | 1,000 units/hr. Draw APTT from | | | | | | | an IV site other than heparin IV | | | | | | | site 6 hours after starting a | | | | | | | heparin infusion. APTT Nomogram | | | | | | | for ADJUSTING heparin APTT < 20 | | | | | | | seconds: Bolus 5,000 units and | | | | | | | Increase rate by 3 units/kg/hr | | | | | | | Repeat aPTT 6 hr after change | | | | | | | APTT 20-29 seconds: Bolus 2,500 | | | | | | | units and Increase rate by 2 | | | | | | | units/kg/hr Repeat aPTT 6 hr | | | | | | | after change APTT 30-45 seconds | | | | | | | Increase rate by 2 units/kg/hr | | | | | | | Repeat aPTT 6 hr after change | | | | | | | APTT 46-56 seconds: (GOAL | | | | | | | RANGE): Cardiac dose | | | | | | | therapeutic range No change | | | | | | | APTT 57-75 seconds: Decrease | | | | | | | rate by 2 units/kg/hr Repeat | | | | | | | aPTT 6 hr after change IF aPTT > | | | | | | | 75 seconds: Decrease rate by 3 | | | | | | | units/kg/hr Do not hold | | | | | | | infusion Repeat aPTT 6 hr after | | | | | | | change, | | | | | | + +---------+ + +-------+---+ + + + +-------+---+ | Rate/Dose Change | 02/15/20 | 16 | 15.2 | | | | 19 5:57 | Units/kg | mL/hr | | | | PM PDT | /hr | | | + + + +-------+---+ | Rate/Dose Change-Dual Sign | 02/15/20 | 14 | 13.3 | | | | 19 6:37 | Units/kg | mL/hr | | | | AM PDT | /hr | | | + + + +-------+---+ +---+---+ | | | +---+---+ + +---------+ + +-------+---+ | heparin in dextrose 100 | New Bag | 02/25/20 | 10.1 | 9.1 | | | units/mL infusion 11.1 | | 19 6:35 | Units/kg | mL/hr | | | Units/kg/hr | | AM PDT | /hr | | | | 90.1 kg (10.0011 mL/hr, rounded | | | | | | | to 10 mL/hr), at 10 mL/hr, | | | | | | | Intravenous, TITRATED, Starting | | | | | | | Cookie 02/22/19 at 1015, CARDIAC | | | | | | | DOSE HEPARIN PROTOCOL STARTING | | | | | | | heparin infusion dose 12 | | | | | | | units/kg/hr, initial rate max | | | | | | | 1,000 units/hr. Draw APTT from | | | | | | | an IV site other than heparin IV | | | | | | | site 6 hours after starting a | | | | | | | heparin infusion. APTT Nomogram | | | | | | | for ADJUSTING heparin APTT < 20 | | | | | | | seconds: Bolus 5,000 units and | | | | | | | Increase rate by 3 units/kg/hr | | | | | | | Repeat aPTT 6 hr after change | | | | | | | APTT 20-29 seconds: Bolus 2,500 | | | | | | | units and Increase rate by 2 | | | | | | | units/kg/hr Repeat aPTT 6 hr | | | | | | | after change APTT 30-45 seconds | | | | | | | Increase rate by 2 units/kg/hr | | | | | | | Repeat aPTT 6 hr after change | | | | | | | APTT 46-56 seconds: (GOAL | | | | | | | RANGE): Cardiac dose | | | | | | | therapeutic range No change | | | | | | | APTT 57-75 seconds: Decrease | | | | | | | rate by 2 units/kg/hr Repeat | | | | | | | aPTT 6 hr after change IF aPTT > | | | | | | | 75 seconds: Decrease rate by 3 | | | | | | | units/kg/hr Do not hold | | | | | | | infusion Repeat aPTT 6 hr after | | | | | | | change, | | | | | | + +---------+ + +-------+---+ + + + +-------+---+ | Rate/Dose Change-Dual Sign | 02/24/20 | 13.1 | 11.8 | | | | 19 7:09 | Units/kg | mL/hr | | | | PM PDT | /hr | | | + + + +-------+---+ | New Bag | 02/24/20 | 13.1 | 11.8 | | | | 19 7:41 | Units/kg | mL/hr | | | | AM PDT | /hr | | | + + + +-------+---+ +---+---+ | | | +---+---+ + +-------+ +--------+---+---+ | HYDROmorphone (DILAUDID) | Given | 02/16/20 | 0.5 mg | | | | injection 0.25-1 mg 0.25-1 mg, | | 19 5:00 | | | | | Intravenous, EVERY 10 MIN PRN, | | PM PDT | | | | | Pain, Starting Cookie 02/15/19 at | | | | | | | 1323, While intubated only. To | | | | | | | maximum of 6 mg in 4 hours., | | | | | | | Post-op/Phase II | | | | | | + +-------+ +--------+---+---+ +-------+ +--------+---+---+ | Given | 02/16/20 | 0.5 mg | | | | | 19 3:30 | | | | | | PM PDT | | | | +-------+ +--------+---+---+ | Given | 02/16/20 | 1 mg | | | | | 19 2:00 | | | | | | PM PDT | | | | +-------+ +--------+---+---+ +---+---+ | | | +---+---+ + +-------+ + +---+ + | insulin detemir (LEVEMIR | Given | 02/22/20 | 10 Units | | Abdomen- | | FLEXTOUCH) injection (pen) | | 19 9:10 | | | LLQ | | Units 10 Units, Subcutaneous, | | PM PDT | | | | | NIGHTLY, First dose (after last | | | | | | | modification) on Tue02/20/19 at | | | | | | [...] | | | | + +-------+ + +---+ + +---+---+ | | | +---+---+ + +-------+ + +---+ + | insulin detemir (LEVEMIR | Given | 02/19/20 | 13 Units | | Abdomen- | | FLEXTOUCH) injection (pen) | | 19 8:04 | | | RLQ | | Units 13 Units, Subcutaneous, | | PM PDT | | | | | NIGHTLY, First dose on Fri | | | | | | | 02/16/19 at 2100, If the total | | | | | | | daily dose of Levemir is 40 units | | | | | | | or greater, it should be ordered | | | | | | | as BID with 1/2 of the dose in | | | | | | | the morning and 1/2 dose at | | | | | | | bedtime., If NPO: Other (see | | | | | | | instruction), Instruction: If | | | | | | | patient is NPO or not tolerating | | | | | | | meals, HOLD all scheduled insulin | | | | | | | and give Correction Scale doses | | | | | | | only. | | | | | | + +-------+ + +---+ + +-------+ + +---+ + | Given | 02/18/20 | 13 Units | | Abdomen- | | | 19 10:26 | | | RLQ | | | PM PDT | | | | +-------+ + +---+ + | Given | 02/17/20 | 13 Units | | Arm-Righ | | | 19 9:40 | | | t Upper | | | PM PDT | | | | +-------+ + +---+ + +---+---+ | | | +---+---+ + +-------+ +---------+---+ + | insulin detemir (LEVEMIR | Given | 02/17/20 | 3 Units | | Abdomen- | | FLEXTOUCH) injection (pen) 3 | | 19 2:01 | | | RLQ | | Units 3 Units, Subcutaneous, | | PM PDT | | | | | ONCE, 02/16/19 at 1400, For 1 | | | | | | | dose, For subcutaneous use only. | | | | | | | Basal (long acting) insulin., If | | | | | | | NPO: Give dose as ordered. | | | | | | + +-------+ +---------+---+ + +---+---+ | | | +---+---+ + +-------+ +---------+---+ + | insulin detemir (LEVEMIR | Given | 02/28/20 | 5 Units | | Arm-Righ | | FLEXTOUCH) injection (pen) | | 19 8:00 | | | [...] | insulin lispro (humaLOG) | Given | 02/14/20 | 1 Units | | Abdomen- | | injection (vial) 0-6 Units 0-6 | | 19 12:12 | | | LLQ | | Units, Subcutaneous, 4 TIMES | | PM PDT | | | | | DAILY BEFORE MEALS & NIGHTLY, | | | | | | | First dose (after last | | | | | | | modification) on Tue02/13/19 at | | | | | | | 0730, CORRECTION SCALE: Blood | | | | | | | Glucose (BG) < 150: | | | | | | | None BG 150-200: DAY: 1 units. | | | | | | | NIGHT: 0 units BG 201-250: | | | | | | | DAY: 2 units. NIGHT: 1 units | | | | | | | BG 251-300: DAY: 3 units. NIGHT: | | | | | | | 2 units BG 301-350: DAY: 4 | | | | | | | units. NIGHT: 3 units BG | | | | | | | 351-400: DAY: 5 units. NIGHT: 4 | | | | | | | units BG > 400 : DAY: 6 | | | | | | | units. NIGHT: 5 units | | | | | | | AND CALL PROVIDER | | | | | | | Use DAY DOSE for doses | | | | | | | scheduled: AC, NPO, Daytime | | | | | | | 6421-6020 Use NIGHT DOSE for | | | | | | | doses scheduled: HS, 3AM, | | | | | | | Nighttime [id number] If the BG is | | | | | | | not checked before the patient | | | | | | | starts eating, do not give | | | | | | | correction insulin. If HS insulin | | | | | | | given, check blood glucose at | | | | | | | 3AM. Only for use with U-100 | | | | | | | insulin syringe., | | | | | | + +-------+ +---------+---+ + +---+---+ | | | +---+---+ + +-------+ +---------+---+ + | insulin lispro (humaLOG) | Given | 02/17/20 | 1 Units | | Arm-Righ | | injection (vial) 0-7 Units 0-7 | | 19 9:40 | | | t Upper | | Units, Subcutaneous, NIGHTLY, | | PM PDT | | | | | First dose on Tue02/16/19 at | | | | | | | 2100, EndoTool Correctional | | | | | | | Scale: For Blood Glucose (BG): | | | | | | | 142 to 180 Give 1 units 181 to | | | | | | | 220 Give 2 units 221 to 260 Give | | | | | | | 3 units 261 to 300 Give 4 | | | | | | | units 301 to 350 Give 5 units | | | | | | | 351 to 400 Give 6 units Over | | | | | | | 400 Give 7 units Only for use | | | | | | | with U-100 insulin syringe., | | | | | | + +-------+ +---------+---+ + +---+---+ | | | +---+---+ + +-------+ +---------+---+ + | insulin lispro (humaLOG) | Given | 02/20/20 | 3 Units | | Arm-Righ | | injection (vial) 3 Units 3 | | 19 6:10 | | | t Upper | | Units, Subcutaneous, 3 TIMES | | PM PDT | | | | | DAILY WITH MEALS, First dose on | | | | | | | Tue02/16/19 at 1200, Hold if | | | | | | | patient is NPO or not eating. | | | | | | | Only for use with U-100 insulin | | | | | | | syringe., | | | | | | + +-------+ +---------+---+ + +-------+ +---------+---+ + | Given | 10/28/20 | 3 Units | | Abdomen- | | | 19 12:53 | | | RLQ | | | PM PDT | | | | +-------+ +---------+---+ + | Given | 02/20/20 | 3 Units | | Abdomen- | | | 19 8:48 | | | LLQ | | | AM PDT | | | | +-------+ +---------+---+ + +---+---+ | | | +---+---+ + + + + +-------+---+ | insulin regular (humuLIN R, | Rate/Dos | 02/17/20 | 1.5 | 1.5 | | | novoLIN R) 1 Units/mL in sodium | e Change | 19 2:51 | Units/hr | mL/hr | | | chloride 0.9% 250 mL infusion | | AM PDT | | | | | (EndoTool) 0.1-50 Units/hr | | | | | | | (0.1-50 mL/hr), at 0.1-50 mL/hr, | | | | | | | Intravenous, TITRATED, Starting | | | | | | | Cookie 02/15/19 at 1345, Work with | | | | | | | provider to assure there are no | | | | | | | other orders for other insulin or | | | | | | | oral diabetes medications. | | | | | | | Attach insulin drip into "Y" site | | | | | | | of normal saline IV running @ 30 | | | | | | | mL/hr. Prime tubing with 30 mL | | | | | | | of insulin infusion, prior to | | | | | | | starting infusion. Patient should | | | | | | | be on continuous nutritional | | | | | | | support while on IV insulin. When | | | | | | | patient's blood glucose is | | | | | | | stable as indicated by EndoTool, | | | | | | | convert to subcutaneous | | | | | | | correctional insulin based on | | | | | | | EndoTool conversion orders., | | | | | | | Post-op/Phase II | | | | | | + + + + +-------+---+ + + + +-------+---+ | Rate/Dose Change | 02/17/20 | 1.8 | 1.8 | | | | 19 12:43 | Units/hr | mL/hr | | | | AM PDT | | | | + + + +-------+---+ | Rate/Dose Change | 02/16/20 | 2.2 | 2.2 | | | | 19 11:28 | Units/hr | mL/hr | | | | PM PDT | | | | + + + +-------+---+ +---+---+ | | | +---+---+ + +-------+ +--------+---+---+ | lisinopril (PRINIVIL, ZESTRIL) | Given | 02/23/20 | 2.5 mg | | | | tablet 2.5 mg 2.5 mg, Oral, | | 19 8:04 | | | | | DAILY, First dose on [facility] 02/22/19 | | AM PDT | | | | | at 0900 | | | | | | + +-------+ +--------+---+---+ +---+---+ | | | +---+---+ + +-------+ +-------+---+---+ | losartan (COZAAR) tablet 25 mg | Given | 02/26/20 | 25 mg | | | | 25 mg, Oral, DAILY, First dose | | 19 7:53 | | | | | on Tue02/23/19 at 0900 | | AM PST | | | | + +-------+ +-------+---+---+ +-------+ +-------+---+---+ | Given | 02/25/20 | 25 mg | | | | | 19 8:36 | | | | | | AM PDT | | | | +-------+ +-------+---+---+ | Given | 02/24/20 | 25 mg | | | | | 19 9:23 | | | | | | AM PDT | | | | +-------+ +-------+---+---+ +---+---+ | | | +---+---+ + +-------+ +-------+---+---+ | losartan (COZAAR) tablet 50 mg | Given | 02/28/20 | 50 mg | | | | 50 mg, Oral, DAILY, First dose | | 19 7:56 | | | | | (after last modification) on Mon | | AM PST | | | | | 02/26/19 at 0900 | | | | | | + +-------+ +-------+---+---+ +-------+ +-------+---+---+ | Given | 02/27/20 | 50 mg | | | | | 19 8:13 | | | | | | AM PST | | | | +-------+ +-------+---+---+ +---+---+ | | | +---+---+ + +-------+ +--------+---+---+ | magnesium hydroxide (MILK OF | Given | 02/16/20 | 30 mLs | | | | MAGNESIA) 400 mg/5 mL suspension | | 19 9:01 | | | | | 30 mL 30 mL, Oral, NIGHTLY, | | PM PDT | | | | | First dose on Cookie 02/15/19 at | | | | | | | 2100, If docusate, senna, and | | | | | | | polyethylene glycol ineffective x | | | | | | | 24 hours or not ordered, | | | | | | + +-------+ +--------+---+---+ +---+---+ | | | +---+---+ [...] | + +---+ + +-------+ +--------+---+---+ | metoprolol succinate | Given | 02/15/20 | 100 mg | | | | (TOPROL-XL) ER tablet 100 mg 100 | | 19 8:45 | | | | | mg, Oral, DAILY, First dose on | | AM PDT | | | | | 02/11/19 at 0900 | | | | | | + +-------+ +--------+---+---+ +-------+ +--------+---+---+ | Given | 02/14/20 | 100 mg | | | | | 19 9:10 | | | | | | AM PDT | | | | +-------+ +--------+---+---+ | Given | 02/13/20 | 100 mg | | | | | 19 7:47 | | | | | | AM PDT | | | | +-------+ +--------+---+---+ +---+---+ | | | +---+---+ + +-------+ +-------+---+---+ | metoprolol succinate | Given | 02/23/20 | 50 mg | | | | (TOPROL-XL) ER tablet 50 mg 50 | | 19 8:03 | | | | | mg, Oral, DAILY, First dose on | | AM PDT | | | | | Cookie 02/22/19 at 0730, Tablet may | | | | | | | be cut where scored but do not | | | | | | | crush., | | | | | | + +-------+ +-------+---+---+ +---+---+ | | | +---+---+ + +-------+ +-------+---+---+ | metoprolol succinate | [...] | | +---+---+ + +-------+ +-------+---+---+ | metoprolol succinate | Given | 02/25/20 | 75 mg | | | | (TOPROL-XL) ER tablet 75 mg 75 | | 19 9:50 | | | | | mg, Oral, DAILY, First dose | | AM PDT | | | | | (after last modification) on Fri | | | | | | | 02/23/19 at 0900, Tablet may be | | | | | | | cut where scored but do not | | | | | | | crush., | | | | | | + +-------+ +-------+---+---+ +-------+ +-------+---+---+ | Given | 02/24/20 | 75 mg | | | | | 19 9:24 | | | | | | AM PDT | | | | +-------+ +-------+---+---+ +---+---+ | | | +---+---+ + +-------+ +---------+---+---+ | metoprolol tartrate (LOPRESSOR) | Given | 02/20/20 | 12.5 mg | | | | tablet 12.5 mg 12.5 mg, Oral, 2 | | 19 8:40 | | | | | TIMES DAILY, First dose on Cookie | | AM PDT | | | | | 02/15/19 at 1345, Hold if SBP < | | | | | | | 100, or HR < 50, | | | | | | + +-------+ +---------+---+---+ +-------+ +---------+---+---+ | Given | 02/19/20 | 12.5 mg | | | | | 19 8:01 | | | | | | PM PDT | | | | +-------+ +---------+---+---+ | Given | 02/19/20 | 12.5 mg | | | | | 19 9:33 | | | | | | AM PDT | | | | +-------+ +---------+---+---+ +---+---+ | | | +---+---+ + +-------+ +-------+---+---+ | metoprolol tartrate (LOPRESSOR) | Given | 02/21/20 | 25 mg | | | | tablet 25 mg 25 mg, Oral, 2 | | 19 7:34 | | | | | TIMES DAILY, First dose (after | | PM PDT | | | | | last modification) on Mon | | | | | | | 02/19/19 at 2100, Hold if SBP < | | | | | | | 100, or HR < 50, | | | | | | + +-------+ +-------+---+---+ +-------+ +-------+---+---+ | Given | 02/21/20 | 25 mg | | | | | 19 9:58 | | | | | | AM PDT | | | | +-------+ +-------+---+---+ | Given | 02/20/20 | 25 mg | | | | | 19 8:24 | | | | | | PM PDT | | | | +-------+ +-------+---+---+ +---+---+ | | | +---+---+ + +-------+ +-------+---+---+ | metoprolol tartrate (LOPRESSOR) | Given | 02/21/20 | 25 mg | | | | tablet 25 mg 25 mg, Oral, ONCE, | | 19 8:50 | | | | | 02/20/19 at 2030, For 1 dose | | PM PDT | | | | + +-------+ +-------+---+---+ +---+---+ | | | +---+---+ + +-------+ +-------+---+---+ | metoprolol tartrate (LOPRESSOR) | Given | 02/22/20 | 50 mg | | | | tablet 50 mg 50 mg, Oral, 2 | | 19 9:09 | | | | | TIMES DAILY, First dose (after | | PM PDT | | | | | last modification) on Tue | | | | | | | 02/21/19 at 0900, Hold if SBP < | | | | | | | 100, or HR < 50, | | | | | | + +-------+ +-------+---+---+ +-------+ +-------+---+---+ | Given | 02/22/20 | 50 mg | | | | | 19 10:13 | | | | | | AM PDT | | | | +-------+ +-------+---+---+ +---+---+ | | | +---+---+ + +-------+ +-------+---+---+ | metoprolol tartrate (LOPRESSOR) | Given | 02/26/20 | 50 mg | | | | tablet 50 mg 50 mg, Oral, 2 | | 19 7:53 | | | | | TIMES DAILY, First dose on Sat | | AM PST | | | | | 02/24/19 at 2100 | | | | | | + +-------+ +-------+---+---+ +-------+ +-------+---+---+ | Given | 02/25/20 | 50 mg | | | | | 19 8:05 | | | | | | PM PDT | | | | +-------+ +-------+---+---+ +---+---+ | | | +---+---+ + +-------+ +---------+---+---+ | metoprolol tartrate (LOPRESSOR) | Given | 02/16/20 | 6.25 mg | | | | tablet 6.25 mg 6.25 mg, Oral, | | 19 6:38 | | | | | [employer], Starting Cookie 02/15/19 at | | AM PDT | | | | | 0610, For 1 dose, Give morning | | | | | | | of heart surgery, Pre-op | | | | | | + +-------+ +---------+---+---+ +---+---+ | | | +---+---+ + +-------+ +------+---+---+ | morphine injection 2 mg 2 mg, | Given | 02/13/20 | 2 mg | | | | Intravenous, EVERY 3 HOURS PRN, | | 19 5:14 | | | | | Pain, Moderate Pain, Starting Sun | | PM PDT | | | | | 02/11/19 at 1835, Slow IV push, | | | | | | | not faster than 2 mg/minute. If | | | | | | | ineffective or not tolerated, use | | | | | | | hydromorphone IV if ordered., | | | | | | + +-------+ +------+---+---+ +-------+ +------+---+---+ | Given | 02/12/20 | 2 mg | | | | | 19 6:55 | | | | | | PM PDT | | | | +-------+ +------+---+---+ +---+---+ | | | +---+---+ + +-------+ +--------+---+---+ | nitroglycerin (NITROSTAT) SL | Given | 02/12/20 | 0.4 mg | | | | tablet 0.4 mg 0.4 mg, | | 19 8:32 | | | | | Sublingual, EVERY 5 MIN PRN, | | AM PDT | | | | | Chest pain, Starting 02/11/19 | | | | | | | at 0600, May give up to 3 doses. | | | | | | | Notify physician after 2nd dose | | | | | | | given. Hold for SBP<100, | | | | | | + +-------+ +--------+---+---+ +---+---+ | | | +---+---+ + +-------+ +--------+---+---+ | nitroglycerin (NITROSTAT) SL | Given | 02/14/20 | 0.4 mg | | | | tablet 0.4 mg 0.4 mg, | | 19 9:51 | | | | | Sublingual, EVERY 5 MIN PRN, | | PM PDT | | | | | Chest pain, Starting 02/11/19 | | | | | | | at 1347, May give up to 3 doses. | | | | | | | Notify physician after 2nd dose | | | | | | | given. Hold for SBP<100, | | | | | | | Post-op/Phase II | | | | | | + +-------+ +--------+---+---+ +-------+ +--------+---+---+ | Given | 02/12/20 | 0.4 mg | | | | | 19 6:10 | | | | | | PM PDT | | | | +-------+ +--------+---+---+ +---+---+ | | | +---+---+ + +---------+ +---------+-------+---+ | nitroglycerin in dextrose 200 | New Bag | 02/15/20 | 5 | 1.5 | | | mcg/mL infusion 0-200 mcg/min | | 19 1:27 | mcg/min | mL/hr | | | (0-60 mL/hr), at 0-60 mL/hr, | | PM PDT | | | | | Intravenous, TITRATED, Starting | | | | | | | 02/14/19 at 1315, Hold for | | | | | | | SBP < 90, Titration Instruction: | | | | | | | See below, Goal: Reduction of | | | | | | | chest pain, Initial dose: 5 | | | | | | | mcg/min, Increase rate by: 5 | | | | | | | mcg/min every 5 minutes until 20 | | | | | | | mcg/min achieved, then increase | | | | | | | by 10 mcg/min every 5 minutes., | | | | | | | Decrease rate by: 10 mcg/min | | | | | | | every 5 minutes., *: Titrate drug | | | | | | | per order as tolerated. | | | | | | | Titration may vary based on the | | | | | | | patient | | | | | | | | | | | | | | s critical condition. | | | | | | + +---------+ +---------+-------+---+ +---+---+ | | | +---+---+ + +-------+ +------+---+---+ | ondansetron (ZOFRAN) injection | Given | 02/15/20 | 4 mg | | | | 4 mg 4 mg, Intravenous, EVERY 6 | | 19 9:13 | | | | | HOURS PRN, Nausea, Vomiting, | | PM PDT | | | | | Starting 02/11/19 at 0600, | | | | | | | First line agent, | | | | | | + +-------+ +------+---+---+ +-------+ +------+---+---+ | Given | 02/14/20 | 4 mg | | | | | 19 1:29 | | | | | | PM PDT | | | | +-------+ +------+---+---+ | Given | 02/13/20 | 4 mg | | | | | 19 2:50 | | | | | | PM [...] PDT | | | | | Starting [facility] 02/15/19 at 1323, | | | | [...] | | +---+---+ + +-------+ +-------+---+---+ | perflutren lipid microspheres | Given | 02/22/20 | 2 mLs | | | | (DEFINITY) injection 2 mL 2 mL, | | 19 11:56 | | | | | Intravenous, ONCE PRN, Other, | | AM PDT | | | | | Starting 02/21/19 at 1156, | | | | | | | For 1 dose, Echo | | | | | | + +-------+ +-------+---+---+ +---+---+ | | | +---+---+ + + + +---------+ +---+ | phenylephrine (DAVEY-SYNEPHRINE, | Rate/Dos | 02/17/20 | 30 | 18 mL/hr | | | VAZCULEP) 100 mcg/mL in sodium | e Change | 19 10:39 | mcg/min | | | | chloride 0.9% 500 mL infusion | | PM PDT | | | | | 20-260 mcg/min (12-156 mL/hr), at | | | | | | | 12-156 mL/hr, Intravenous, | | | | | | | TITRATED, Starting [facility] 02/15/19 | | | | | | | at 1345, Titration Instruction: | | | | | | | See below, Goal: MAP 65 and | | | | | | | greater, SBP greater than 90, | | | | | | | Initial dose: 100 mcg/min, | | | | | | | Increase rate by: 20 mcg/min | | | | | | | every 5 minutes., Decrease rate | | | | | | | by: 20 mcg/min every 5 minutes., | | | | | | | *: Titrate drug per order as | | | | | | | tolerated. Titration may vary | | | | | | | based on the patient | | | | | | | | | | | | | | s critical condition., | | | | | | | Post-op/Phase II | | | | | | + + + +---------+ +---+ + + +---------+ +---+ | Rate/Dose Change | 02/17/20 | 40 | 24 mL/hr | | | | 19 3:50 | mcg/min | | | | | PM PDT | | | | + + +---------+ +---+ | Rate/Dose Change | 02/17/20 | 30 | 18 mL/hr | | | | 19 11:40 | mcg/min | | | | | AM PDT | | | | + + +---------+ +---+ +---+---+ | | | +---+---+ + +-------+ +------+---+---+ | polyethylene glycol (MIRALAX) | Given | 02/14/20 | 17 g | | | | powder 17 g 17 g, Oral, DAILY | | 19 6:26 | | | | | PRN, Constipation, Starting Tue | | PM PDT | | | | | 02/13/19 at 0951, Mix with 8 oz. | | | | | | | water., | | | | | | + +-------+ +------+---+---+ +---+---+ | | | +---+---+ + +-------+ +------+---+---+ | polyethylene glycol (MIRALAX) | Given | 02/17/20 | 17 g | | | | powder 17 g 17 g, Oral, DAILY | | 19 10:25 | | | | | PRN, Constipation, Starting [facility] | | AM PDT | | | | | 02/15/19 at 1323, If docusate and | | | | | | | senna ineffective or not | | | | | | | ordered, | | | | | | + +-------+ +------+---+---+ +---+---+ | | | +---+---+ + +-------+ +--------+---+---+ | potassium chloride (KLOR-CON) | Given | 02/28/20 | 20 mEq | | | | ER tablet 20 mEq 20 mEq, Oral, 2 | | 19 7:59 | | | | | TIMES DAILY, First dose on Mon | | PM PST | | | | | 02/26/19 at 1100, Tablet may be | | | | | | | cut where scored but do not | | | | | | | crush. May take with food to | | | | | | | decrease GI upset., | | | | | | + +-------+ +--------+---+---+ +-------+ +--------+---+---+ | Given | 02/28/20 | 20 mEq | | | | | 19 7:55 | | | | | | AM PST | | | | +-------+ +--------+---+---+ | Given | 02/27/20 | 20 mEq | | | | | 19 7:26 [...] | + +---+ + +-------+ +--------+---+---+ | potassium chloride (KLOR-CON) | Given | 02/16/20 | 40 mEq | | | | packet 40-60 mEq 40-60 mEq, | | 19 9:25 | | | | | Feeding Tube, PRN, Per Protocol, | | PM PDT | | | | | Starting [facility] 02/15/19 at 1323, | | | | | | | ICU Use Only Protocol NOT | | | | | | | recommended if Scr > 1.8, | | | | | | | dialysis patients or CrCl < 50 | | | | | | | mL/min [K+] =3.6 - 4 mEql/L | | | | | | | Give 40 mEq KCl PO/FT x 1 dose | | | | | | | [K+] =3 - 3.5 mEql/L Give 60 | | | | | | | mEq KCl PO/FT x 1 dose [K+] < | | | | | | | 3.0 mEql/L Give 40 mEq KCl | | | | | | | Q2H PO/FT x 2 doses for total | | | | | | | of 80 meq. * Obtain K+ level 4 | | | | | | | hours after replacement is | | | | | | | done. If K+ still < 3.6 mEq/L, | | | | | | | repeat replacement as | | | | | | | indicated per protocol. Give | | | | | | | either tablet, liquid, or IV but | | | | | | | never more than one form., | | | | | | | Post-op/Phase II | | | | | | + +-------+ +--------+---+---+ + +---+ | | | [...] | + +---+ + +-------+ +-------+---+---+ | promethazine (PHENERGAN) tablet | Given | 02/14/20 | 25 mg | | | | 12.5-25 mg 12.5-25 mg, Oral, | | 19 6:26 | | | | | EVERY 6 HOURS PRN, Nausea, | | PM PDT | | | | | Vomiting, Starting 02/12/19 | | | | | | | at 1657 | | | | | | + +-------+ +-------+---+---+ +-------+ +-------+---+---+ | Given | 02/13/20 | 25 mg | | | | | 19 11:44 | | | | | | PM PDT | | | | +-------+ +-------+---+---+ | Given | 02/13/20 | 25 mg | | | | | 19 5:14 | | | | | | PM PDT | | | | +-------+ +-------+---+---+ +---+---+ | | | +---+---+ + +-------+ +-------+---+---+ | rosuvastatin (CRESTOR) tablet | Given | 02/15/20 | 20 mg | | | | 20 mg 20 mg, Oral, NIGHTLY, | | 19 9:13 | | | | | First dose on 02/11/19 at | | PM PDT | | | | | 2100 | | | | | | + +-------+ +-------+---+---+ +-------+ +-------+---+---+ | Given | //20 | 20 mg | | | | | 19 8:05 | | | | | | PM PDT | | | | +-------+ +-------+---+---+ | Given | 02/12/ | 20 mg | | | | | 19 9:22 | | | | | | PM PDT | | | | +-------+ +-------+---+---+ +---+---+ | | | +---+---+ + +-------+ +---------+-------+---+ | sodium bicarbonate 1 mEq/mL | Given | 02/16/20 | 100 mEq | 6000 | | | injection 100 mEq 100 mEq, | | 19 3:45 | | mL/hr | | | Intravenous, Administer over 1 | | PM PDT | | | | | Minutes, ONCE, [facility] 02/15/19 at | | | | | | | 1600, For 1 dose | | | | | | + +-------+ +---------+-------+---+ +---+---+ | | | +---+---+ + +-------+ +--------+-------+---+ | sodium bicarbonate 1 mEq/mL | Given | 02/16/20 | 50 mEq | 3000 | | | injection 50 mEq 50 mEq, | | 19 2:37 | | mL/hr | | | Intravenous, Administer over 1 | | PM PDT | | | | | Minutes, ONCE, [facility] 02/15/19 at | | | | | | | 1400, For 1 dose | | | | | | + +-------+ +--------+-------+---+ +---+---+ | | | +---+---+ + +-------+ +--------+-------+---+ | sodium bicarbonate 1 mEq/mL | Given | 02/16/20 | 50 mEq | 3000 | | | injection 50 mEq 50 mEq, | | 19 5:00 | | mL/hr | | | Intravenous, Administer over 1 | | PM PDT | | | | | Minutes, ONCE, [facility] 02/15/19 at | | | | | | | 1700, For 1 dose | | | | | | + +-------+ +--------+-------+---+ +---+---+ | | | +---+---+ + +-------+ +--------+-------+---+ | sodium bicarbonate 1 mEq/mL | Given | 02/16/20 | 50 mEq | 3000 | | | injection 50 mEq 50 mEq, | | 19 6:57 | | mL/hr | | | Intravenous, Administer over 1 | | PM PDT | | | | | Minutes, ONCE, [facility] 02/15/19 at | | | | | | | 1915, For 1 dose | | | | | | + +-------+ +--------+-------+---+ + +---+ | | | + +---+ | sodium bicarbonate tablet 650 | | | mg 650 mg, Oral, 3 TIMES DAILY, | | | First dose on Tue02/28/19 at 1015 | | + +---+ | | | + +---+ + +---------+ +---+-------+---+ | sodium chloride 0.45% (1/2 NS) | New Bag | 02/12/20 | | 100 | | | infusion at 100 mL/hr, | | 19 2:00 | | mL/hr | | | Intravenous, CONTINUOUS, Starting | | PM PDT | | | | | 02/11/19 at 1345, For 6 | | | | | | | hours | | | | | | + +---------+ +---+-------+---+ +---+---+ | | | +---+---+ + +---------+ +---+ +---+ | sodium chloride 0.9% (NS) | New Bag | 02/14/20 | | 75 mL/hr | | | infusion at 75 mL/hr, | | 19 9:49 | | | | | Intravenous, CONTINUOUS, Starting | | PM PDT | | | | | 02/12/19 at 0900 | | | | | | + +---------+ +---+ +---+ +---------+ +--------+ +---+ | New Bag | 02/14/20 | 1,000 | 75 mL/hr | | | | 19 4:40 | mLs | | | | | AM PDT | | | | +---------+ +--------+ +---+ | New Bag | 02/13/20 | | 75 mL/hr | | | | 19 2:52 | | | | | | PM PDT | | | | +---------+ +--------+ +---+ +---+---+ | | | +---+---+ + +---------+ +---+ +---+ | sodium chloride 0.9% (NS) | New Bag | 02/17/20 | | 30 mL/hr | | | infusion at 30 mL/hr, | | 19 3:07 | | | | | Intravenous, CONTINUOUS, Starting | | AM PDT | | | | | [facility] 02/15/19 at 1345, | | | | | | | Post-op/Phase II | | | | | | + +---------+ +---+ +---+ + + +---+ +---+ | Continued Bag | 02/16/20 | | 30 mL/hr | | | | 19 1:59 | | | | | | PM PDT | | | | + + +---+ +---+ +---+---+ | | | +---+---+ + +-------+ +--------+---+---+ | vancomycin 25 mg/mL [...] | | +---+---+ + +-------+ +--------+---+---+ | vancomycin 25 mg/mL liquid 500 | Given | 02/27/20 | 500 mg | | | | mg 500 mg, Oral, EVERY 6 HOURS | | 19 5:40 | | | | | (4 times per day), First dose on | | AM PST | | | | | 02/25/19 at 1800, Shake well. | | | | | | | Keep in refrigerator., | | | | | | | Indications: Clostridium | | | | | | | Difficile Infection | | | | | | + +-------+ +--------+---+---+ +-------+ +--------+---+---+ | Given | 02/26/20 | 500 mg | | | | | 19 11:39 | | | | | | PM PST | | | | +-------+ +--------+---+---+ | Given | 02/26/20 | 500 mg | | | | | 19 6:20 | | | | | | PM PST | | | | +-------+ +--------+---+---+ +---+---+ | | | +---+---+ + +---------+ +-------+--------+---+ | vancomycin in NS (VANCOCIN) | New Bag | 02/16/20 | 1.5 g | 166.7 | | | IVPB 1.5 g 1.5 g, Intravenous, | | 19 2:31 | | mL/hr | | | Administer over 90 Minutes, EVERY | | PM PDT | | | | | 12 HOURS INTERVAL, First dose on | | | | | | | [facility] 02/15/19 at 1400, For 1 | | | | | | | dose, Start 12 hours after | | | | | | | previous dose. Last dose to be | | | | | | | given within 24 hours of surgery | | | | | | | end time Keep in refrigerator., | | | | | | | Post-op/Phase II, Indications: | | | | | | | Surgical Prophylaxis | | | | | | + +---------+ +-------+--------+---+ +---+---+ | | | +---+---+ + +-------+ [...] + +-------+ +------+---+---+ | warfarin (COUMADIN) tablet 5 mg | Given | 02/22/20 | 5 mg | | | | 5 mg, Oral, Daily - Warfarin, | | 19 6:10 | | | | | First dose on Tue02/21/19 at | | PM PDT | | | | | 1800, Reproductive Risk: Use | | | | | | | appropriate handling precautions. | | | | | | | Drug education required., | | | | | | + +-------+ +------+---+---+ +---+---+ | | | +---+---+ + +-------+ +------+---+---+ | warfarin (COUMADIN) tablet 5 mg | Given | 02/23/20 | 5 mg | | | | 5 mg, Oral, Daily - Warfarin, | | 19 5:40 | | | | | First dose on [facility] 02/22/19 at | | PM PDT | | | | | 1800, Reproductive Risk: Use | | | | | | | appropriate handling precautions. | | | | | | | Drug education required., | | | | | | + +-------+ +------+---+---+ +---+---+ | | | +---+---+ + +-------+ +------+---+---+ | warfarin (COUMADIN) tablet 5 mg | Given | 02/24/20 | 5 mg | | | | 5 mg, Oral, Once - Warfarin, | | 19 5:01 | | | | | First dose (after last | | PM PDT | | | | | modification) on Tue02/23/19 at | | | | | | | 1800, For 1 dose, Reproductive | | | | | | | Risk: Use appropriate handling | | | | | | | precautions. Drug education | | | | | | | required., | | | | | | + +-------+ +------+---+---+ +---+---+ | | | +---+---+ + +-------+ +------+---+---+ | warfarin (COUMADIN) tablet 5 mg | Given | 02/25/20 | 5 mg | | | | 5 mg, Oral, Daily - Warfarin, | | 19 5:06 | | | | | First dose on 02/24/19 at | | PM PDT | | | | | 1800, Reproductive Risk: Use | | | | | | | appropriate handling precautions. | | | | | | | Drug education required., | | | | | | + +-------+ +------+---+---+ +---+---+ | | | +---+---+ documented in this encounter
--- OUTSIDE RECORDS SUMMARY | ~2019-04-07 | XMS | Encounter Summary ---
Demographics + + + | Address | [address] | | | [place] [address] | + + + | Home Phone | | + + + | Preferred Language | Unknown | + + + | Marital Status | Legally | + + + | Pentecostalism Affiliation | 1041 | + + + | Race | Unknown | + + + | Ethnic Group | Unknown | + + + Author + + + | Author | [facility] | | | and [place] | + + + | Organization | [facility] | | | [...] Team Providers + +------+ + | Care Laborer Heading Name | Role | Phone | + +------+ + PCP | Unavailable | + +------+ + Encounter Details +--------+ + + + + | Date | Type | Department | Care Team | Description | +--------+ + + + + | 10/31/ | Orders Only | [facility] | Conversion | | | 2019 | | CONVERSION [address] | Transaction, | | | | | [address] | Provider Unknown | | | | | [place], [place] | [phone] | | | | | [address] | | | | | | [phone] | | | +--------+ + + + [...] | 2019 | Visit | | MD Antunez [address] Edith | | | | | | [address] | | | | | | [place] [address] | | | | | | [phone] | | | | | | | | +--------+---------+ + + + documented as of this encounter Procedures + +--------+ + + + | Procedure Name | Priori | Date/Time | Associated Diagnosis | Comments | | | ty | | | | + +--------+ + + + | ECHO INTERPRETATION | Routin | 10/31/2018 | | Results for this | | OF OUTSIDE FILMS | e | 5:42 PM | | procedure are in the | | | | PDT | | results section. | + +--------+ + + + documented in this encounter Results ECHO Interpretation of Outside Films (10/31/2018 5:42 PM PDT) + + | Specimen | + + | | + + + + + | Impressions | Performed At | + + + | 1. Overall left ventricular systolic function is mildly impaired | | | with, an EF between 45 - 50 %. 2. The right ventricle is normal in | | | size and function. | | + + + + + + | Narrative | Performed At | + + + | Patient Name: LIVE ROJAS Date of : 1965 | | | Performing Physician: Opal Cooper MD | | | | | | INDICATIONS uncontrolled htn, le edema CONCLUSIONS | | | 1. Overall left ventricular systolic function is mildly | | | impaired with, an EF between 45 - 50 %. 2. The right ventricle is | | | normal in size and function. FINDINGS -------- ECG rhythm: Sinus | | | rhythm. Study: A 2-dimensional transthoracic echocardiogram with | | | m-mode, spectral and color flow Doppler was perfomed. Study: This was | | | a technically adequate study. Left Ventricle: Overall left | | | ventricular systolic function is mildly impaired with, an EF between | | | 45 - 50 %. Left Ventricle: The left ventricle cavity size is normal. | | | Left Ventricle: No regional wall motion abnormalities. Left | | | Ventricle: Mild septal hypertrophy. Indeterminate diastolic function. | | | Right Ventricle: The right ventricle is normal in size and function. | | | Left Atrium: The left atrium is normal in size. Right Atrium: The | | | right atrium is normal in size. Aortic Valve: The aortic valve is | | | trileaflet and appears structurally normal. Aortic Valve: There is no | | | evidence of aortic regurgitation. Aortic Valve: There is no evidence | | | of aortic stenosis. Mitral Valve: Normal appearing mitral valve. | | | Mitral Valve: Mild mitral regurgitation is present. Tricuspid Valve: | | | The tricuspid valve appears structurally normal. Tricuspid Valve: | | | Trace tricuspid regurgitation present. Tricuspid Valve: Pulmonary | | | artery systolic pressure could not be assessed due to the absence of | | | adequate TR jet. Pulmonic Valve: Pulmonic valve appears structurally | | | normal. Pulmonic Valve: Trace pulmonic regurgitation. Pericardium: | | | There is no pericardial effusion. IVC/Hepatic Veins: The inferior | | | vena cava is normal in size and collapses > 50 % with sniff, | | | indicating normal central venous pressures. Aorta: The aortic root, | | | ascending aorta and aortic arch are normal. Mass: No mass visualized | | | Thrombus: No clot visualized Thrombus: No vegetation visualized. | | | Septum: No ASD observed. Septum: No VSD observed. MEASUREMENTS | | | Ao asc: 3.38 cm Ao sinus: 3.[address] junct: | | | 3.07 cm IVC: 1.36 cm EDV(Teich): 143.29 ml IVSd: 1.17 | | | cm LVIDd: 5.43 cm LVPWd: 0.98 cm LVOT Area: 4.48 cm2 LVOT | | | Diam: 2.39 cm %FS: 18.54 % EF(Teich): 37.96 % ESV(Teich): | | | 88.88 ml LVIDs: 4.42 cm SV(Teich): 54.40 ml RV Major: | | | 7.82 cm RV Minor: 3.18 cm LVEF MOD A2C: 38.79 % SV MOD A2C: | | | 59.29 ml LVEF MOD A4C: 46.21 % SV MOD A4C: 112.06 ml EF | | | Biplane: 42.89 % LVEDV MOD BP: 193.24 ml LVESV MOD BP: | | | 110.36 ml LVEDV MOD A2C: 152.85 ml LVLd A2C: 9.95 cm LVEDV | | | MOD A4C: 242.48 ml LVLd A4C: 10.08 cm LVESV MOD A2C: 93.55 | | | ml LVLs A2C: 8.97 cm LVESV MOD A4C: 130.41 ml LVLs A4C: | | | 8.97 cm LAESV(A-L): 45.73 ml LAESV Index (A-L): 21.27 ml/m2 | | | LAAs A2C: 16.41 cm2 LAESV A-L A2C: 52.35 ml LALs A2C: 4.36 | | | cm LAAs A4C: 11.00 cm2 LAESV A-L A4C: 30.66 ml LALs A4C: | | | 3.35 cm RAAs: 11.33 cm2 RAESV A-L: 26.07 ml RAESV MOD: | | | 23.43 ml RALs: 4.17 cm TAPSE: 2.16 cm AV maxP.31 mmHg | | | AV meanP.02 mmHg AV Vmax: 1.03 m/s AV Vmean: 0.64 m/s | | | AV VTI: 20.29 cm GERALD Vmax: 3.34 cm2 GERALD (VTI): 3.86 cm2 | | | AVAI (Vmax): 0.00 cm2/m2 AVAI (VTI): 0.00 cm2/m2 LVOT maxPG: | | | 2.39 mmHg LVOT meanP.26 mmHg LVSI Dopp: 36.47 ml/m2 | | | LVSV Dopp: 78.42 ml LVOT Vmax: 0.77 m/s LVOT Vmean: 0.53 | | | m/s LVOT VTI: 17.48 cm MV A Jayy: 0.83 m/s MV Dec [place]: | | | 4.25 m/s2 MV DecT: 125.17 ms MV E Jayy: 0.53 m/s MV E/A Ratio: | | | 0.63 MV PHT: 36.30 ms MVA By PHT: 6.06 cm2 Septal e': | | | 0.03 m/s Septal E/e': 13.44 Lateral e': 0.05 m/s Lateral | | | E/e': 10.22 RAP: 5 mmHg RV s': 0.12 m/s Delicatessen Slicer: | | | DBS Authenticated by: Opal Cooper MD Report Date/Time: -- | | | [id number] | | + + + + -----+ | Procedure Note | + -----+ | Ej, Rad Conversion - 12/14/2018 12:38 PM PDT Patient Name: Sriram ROJAS | | of : 1965 Performing Physician: Opal Cooper | | INDICATIONS u | | ncontrolled htn, le edema CONCLUSIONS 1. Overall left ventricular systolic | | function is mildly impaired with, an EF between 45 - 50 %.2. The right ventricle is | | normal in size and function. FINDINGS--------ECG rhythm: Sinus rhythm.Study: A | | 2-dimensional transthoracic echocardiogram with m-mode, spectral and color flow Doppler | | was perfomed.Study: This was a technically adequate study.Left Ventricle: Overall left | | ventricular systolic function is mildly impaired with, an EF between 45 - 50 %.Left | | Ventricle: The left ventricle cavity size is normal.Left Ventricle: No regional wall | | motion abnormalities.Left Ventricle: Mild septal hypertrophy. Indeterminate diastolic | | function.Right Ventricle: The right ventricle is normal in size and function.Left | | Atrium: The left atrium is normal in size.Right Atrium: The right atrium is normal in | | size.Aortic Valve: The aortic valve is trileaflet and appears structurally normal.Aortic | | Valve: There is no evidence of aortic regurgitation.Aortic Valve: There is no evidence | | of aortic stenosis.Mitral Valve: Normal appearing mitral valve.Mitral Valve: Mild mitral | | regurgitation is present.Tricuspid Valve: The tricuspid valve appears structurally | | normal.Tricuspid Valve: Trace tricuspid regurgitation present.Tricuspid Valve: Pulmonary | | artery systolic pressure could not be assessed due to the absence of adequate TR | | jet.Pulmonic Valve: Pulmonic valve appears structurally normal.Pulmonic Valve: Trace | | pulmonic regurgitation.Pericardium: There is no pericardial effusion.IVC/Hepatic Veins: | | The inferior vena cava is normal in size and collapses > 50 % with sniff, indicating | | normal central venous pressures.Aorta: The aortic root, ascending aorta and aortic arch | | are normal.Mass: No mass visualizedThrombus: No clot visualizedThrombus: No vegetation | | visualized.Septum: No ASD observed.Septum: No VSD observed. MEASUREMENTS Ao | | asc: 3.38 cmAo sinus: 3.[address] junct: 3.07 cmIVC: 1.36 cmEDV(Teich): | | 143.29 mlIVSd: 1.17 cmLVIDd: 5.43 cmLVPWd: 0.98 cmLVOT Area: 4.48 [id number] Diam: | | 2.39 cm%FS: 18.54 %EF(Teich): 37.96 %ESV(Teich): 88.88 mlLVIDs: 4.42 | | cmSV(Teich): 54.40 mlRV Major: 7.82 cmRV Minor: 3.18 cmLVEF MOD A2C: 38.79 %SV | | MOD A2C: 59.29 mlLVEF MOD A4C: 46.21 %SV MOD A4C: 112.06 mlEF Biplane: 42.89 | | %LVEDV MOD BP: 193.24 mlLVESV MOD BP: 110.36 mlLVEDV MOD A2C: 152.85 mlLVLd A2C: | | 9.95 cmLVEDV MOD A4C: 242.48 mlLVLd A4C: 10.08 cmLVESV MOD A2C: 93.55 mlLVLs A2C: | | 8.97 cmLVESV MOD A4C: 130.41 mlLVLs A4C: 8.97 cmLAESV(A-L): 45.73 mlLAESV Index | | (A-L): 21.27 ml/m2LAAs A2C: 16.41 [id number] A-L A2C: 52.35 mlLALs A2C: 4.36 | | cmLAAs A4C: 11.00 [id number] A-L A4C: 30.66 mlLALs A4C: 3.35 cmRAAs: 11.33 | | [id number] A-L: 26.07 mlRAESV MOD: 23.43 mlRALs: 4.17 cmTAPSE: 2.16 cmAV maxPG: | | 4.31 mmHgAV meanP.02 mmHgAV Vmax: 1.03 m/Ly Vmean: 0.64 m/Ly VTI: 20.29 | | cmAVA Vmax: 3.34 cm2AVA (VTI): 3.86 fi2BPRZ (Vmax): 0.00 cm2/m2AVAI (VTI): 0.00 | | cm2/m2LVOT maxP.39 mmHgLVOT meanP.26 mmHgLVSI Dopp: 36.47 ml/m2LVSV Dopp: | | 78.42 mlLVOT Vmax: 0.77 m/sLVOT Vmean: 0.53 m/sLVOT VTI: 17.48 cmMV A Jayy: | | 0.83 m/sMV Dec [place]: 4.25 m/s2MV DecT: 125.17 msMV E Jayy: 0.53 m/sMV E/A Ratio: | | 0.63MV PHT: 36.30 msMVA By PHT: 6.06 ae2Nempor e': 0.03 m/sSeptal E/e': | | 13.44Lateral e': 0.05 m/sLateral E/e': 10.22RAP: 5 mmHgRV s': 0.12 m/s | | Delicatessen Slicer: DBSAuthenticated by: [facility]INdan[facility] Date/Time: -- | | [id number]:56 IMPRESSION: 1. Overall left ventricular systolic function is mildly | | impaired with, an EF between 45 - 50 %.2. The right ventricle is normal in size and | | function. | | | |MEASUREMENTS | | | |Ao asc: 3.38 cm | |Ao sinus: 3.47 cm | |Ao st junct: 3.07 cm | |IVC: 1.36 cm | |EDV(Teich): 143.29 ml | |IVSd: 1.17 cm | |LVIDd: 5.43 cm | |LVPWd: 0.98 cm | |LVOT Area: 4.48 cm2 | |LVOT Diam: 2.39 cm | |%FS: 18.54 % | |EF(Teich): 37.96 % | |ESV(Teich): 88.88 ml | |LVIDs: 4.42 cm | |SV(Teich): 54.40 ml | |RV Major: 7.82 cm | |RV Minor: 3.18 cm | |LVEF MOD A2C: 38.79 % | |SV MOD A2C: 59.29 ml | |LVEF MOD A4C: 46.21 % | |SV MOD A4C: 112.06 ml | |EF Biplane: 42.89 % | |LVEDV MOD BP: 193.24 ml | |LVESV MOD BP: 110.36 ml | |LVEDV MOD A2C: 152.85 ml | |LVLd A2C: 9.95 cm | |LVEDV MOD A4C: 242.48 ml | |LVLd A4C: 10.08 cm | |LVESV MOD A2C: 93.55 ml | |LVLs A2C: 8.97 cm | |LVESV MOD A4C: 130.41 ml | |LVLs A4C: 8.97 cm | |LAESV(A-L): 45.73 ml | |LAESV Index (A-L): 21.27 ml/m2 | |LAAs A2C: 16.41 cm2 | |LAESV A-L A2C: 52.35 ml | |LALs A2C: 4.36 cm | |LAAs A4C: 11.00 cm2 | |LAESV A-L A4C: 30.66 ml | |LALs A4C: 3.35 cm | |RAAs: 11.33 cm2 | |RAESV A-L: 26.07 ml | |RAESV MOD: 23.43 ml | |RALs: 4.17 cm | |TAPSE: 2.16 cm | |AV maxP.31 mmHg | |AV meanP.02 mmHg | |AV Vmax: 1.03 m/s | |AV Vmean: 0.64 m/s | |AV VTI: 20.29 cm | |GERALD Vmax: 3.34 cm2 | |GERALD (VTI): 3.86 cm2 | |AVAI (Vmax): 0.00 cm2/m2 | |AVAI (VTI): 0.00 cm2/m2 | |LVOT maxP.39 mmHg | |LVOT meanP.26 mmHg | |LVSI Dopp: 36.47 ml/m2 | |LVSV Dopp: 78.42 ml | |LVOT Vmax: 0.77 m/s | |LVOT Vmean: 0.53 m/s | |LVOT VTI: 17.48 cm | |MV A Jayy: 0.83 m/s | |MV Dec [place]: 4.25 m/s2 | |MV DecT: 125.17 ms | |MV E Jayy: 0.53 m/s | |MV E/A Ratio: 0.63 | |MV PHT: 36.30 ms | |MVA By PHT: 6.06 cm2 | |Septal e': 0.03 m/s | |Septal E/e': 13.44 | |Lateral e': 0.05 m/s | |Lateral E/e': 10.22 | |RAP: 5 mmHg | |RV s': 0.12 m/s | | | |Delicatessen Slicer: DBS | |Authenticated by: Opal Cooper MD | |Report Date/Time: -- [id number]:2:56 | | | |IMPRESSION: | |1. Overall left ventricular systolic function is mildly impaired with, an EF between 45 - 5 0 %. | |2. The right ventricle is normal in size and function. | + -----+ documented in this encounter Visit Diagnoses Not on filedocumented in this encounter"
--- OUTSIDE RECORDS SUMMARY | ~2019-04-07 | XMS | Encounter Summary ---
Demographics + + + | Address | [address] | | | [place] [address] | + + + | Home Phone | | + + + | Preferred Language | Unknown | + + + | Marital Status | Legally | + + + | Amish Affiliation | 1041 | + + + | Race | Unknown | + + + | Ethnic Group | Unknown | + + + Author + + + | Author | [facility] | | | and [place] | + + + | Organization | [facility] | | [...] Team Providers + +------+ + | Care Wrapper Off Name | Role | Phone | + +------+ + PCP | Unavailable | + +------+ + Encounter Details +--------+ + + + + | Date | Type | Department | Care Team | Description | +--------+ + + + + | 11/29/ | Orders Only | [facility] [place] | Shea Pedraza W, | Chronic kidney | | 2018 | | NEPHROLOGY [address] | disease, stage III | | | | [address] | [address] [place] | (moderate) (Primary | | | | [place], [place] | [place] [address] | Dx) | | | | [address] | [phone] | | | | | [phone] | | | +--------+ + + + [...] encounter Progress Notes Yvonne Hahn RN - 11/29/2017 4:26 PM PDTLabs for upcoming nephrology appointment sent to: Need to be sent to [facility] closer to appt date RU completed 11/04/17 at [facility] signed by Yvonne Hahn RN at 4:49 PM PDTdocumented in this encounter Plan of Treatment +--------+---------+ + + + | Date | Type | Specialty | Care Team | Description | +--------+---------+ + + + | 06/19/ | Office | Nephrology | Shea Pedraza, | | | 2019 | Visit | | MD Harmony Sharma | | | | | | [place] | | | | | | [place] [address] | | | | | | [phone] | | | | | | | | +--------+---------+ + + + documented as of this encounter Visit Diagnoses + + | Diagnosis | + + | Chronic kidney disease, stage III (moderate) (HCC) - Primary Chronic kidney disease, | | Stage III (moderate) | + + documented in this encounter"
--- OUTSIDE RECORDS SUMMARY | ~2019-04-07 | XMS | Encounter Summary ---
Demographics + + + | Address | [address] | | | [place] [address] | + + + | Home Phone | | + + + | Preferred Language | Unknown | + + + | Marital Status | Legally | + + + | Taoist Affiliation | 1041 | + + + | Race | Unknown | + + + | Ethnic Group | Unknown | + + + Author + + + | Author | [facility] | | | and [place] | + + + | Organization | [facility] | | | [...] Team Providers + +------+ + | Care Project Architect Name | Role | Phone | + +------+ + PCP | Unavailable | + +------+ + Encounter Details +--------+ + + + + | Date | Type | Department | Care Team | Description | +--------+ + + + + | 06/14/ | Orders Only | [facility] | Conversion | | | 2014 | | CARDIOLOGY [place] | Transaction, | | | | | [address] | Provider Unknown | | | | | [place], [place] | [phone] | | | | | [address] | | | | | | [phone] | | | +--------+ + + + [...] [place] | | | | | | [place] [address] | | | | | | [phone] | | | | | | | | +--------+---------+ + + + documented as of this encounter Procedures + +--------+ + + + | Procedure Name | Priori | Date/Time | Associated Diagnosis | Comments | | | ty | | | | + +--------+ + + + | BASIC METABOLIC | Routin | 06/14/2014 | | Results for this | | PANEL | e | 7:55 AM | | procedure are in the | | | | PST | | results section. | + +--------+ + + + documented in this encounter Results Basic Metabolic Panel (06/14/2014 7:55 AM PST) + +---------+ + + + | Component | Value | Ref Range | Performed | Pathologist | | | | | At | Signature | + +---------+ + + + | Glucose, | 212 (A) | 70 - 100 mg/dL | EXTERNAL | | | Fasting | | | LAB | | + +---------+ + + + | BUN | 17 | 6 - 23 mg/dL | EXTERNAL | | | | | | LAB | | + +---------+ + + + | Creatinine | 0.99 | 0.60 - 1.35 | EXTERNAL | | | | | mg/dL | LAB | | + +---------+ + + + | BUN/Creatin | 17.2 | 6.0 - 28.6 | EXTERNAL | | | ine Ratio | | | LAB | | + +---------+ + + + | Calcium | 8.9 | 8.4 - 10.2 | EXTERNAL | | | | | mg/dL | LAB | | + +---------+ + + + | Na | 138 | 132 - 143 | EXTERNAL | | | | | mmol/L | LAB | | + +---------+ + + + | K | 4.4 | 3.6 - 5.1 | EXTERNAL | | | | | mmol/L | LAB | | + +---------+ + + + | Cl | 105 | 95 - 112 mmol/L | EXTERNAL | | | | | | LAB | | + +---------+ + + + | CO2 | 25 | 19 - 31 mmol/L | EXTERNAL | | | | | | LAB | | + +---------+ + + + | Anion Gap | 12.4 | 7 - 21 mmol/L | EXTERNAL | | | | | | LAB | | + +---------+ + + + | Estimated | 81 | 60 mg/dL | EXTERNAL | | | GFR | | | LAB | | + +---------+ + + + + + | Specimen | + + | Blood specimen | | (specimen) | + + + +---------+ + + | Performing | Address | City/State/Zipcode | Phone Number | | Organization | | | | + +---------+ + + | EXTERNAL LAB | | | | + +---------+ + + documented in this encounter Visit Diagnoses Not on filedocumented in this encounter"
--- OUTSIDE RECORDS SUMMARY | ~2019-04-07 | XMS | Encounter Summary ---
Demographics + + + | Address | [address] | | | [place] [address] | + + + | Home Phone [...] Team Providers + +------+ + | Care Hydro Mechanic Name | Role | Phone | + [...] | NEPHROLOGY [address] | necrosis) ([facility]) | | | | [address] | [address] [place] | (Primary Dx); | | | | [place], [place] | [place] [address] | Essential | | | | [address] | [phone] | hypertension with | | | | [phone] | | goal blood pressure | | [...] | | | | | [place] [address] | | | | | | [phone] | | | | | | | [...]
--- OUTSIDE RECORDS SUMMARY | ~2019-04-07 | XMS | Encounter Summary ---
Demographics + + + | Address | [address] | | | [place] [address] | + + + | Home Phone | | + + + | Preferred Language | Unknown | + + + | Marital Status | Legally | + + + | Anglican Affiliation | 1041 | + + + [...] Team Providers + +------+ + | Care Platform Architect Name | Role | Phone | [...] + + | 03/02/ | Telephone | [facility] | Day Oneal, | Follow-up(Procedure) | | 2019 | | CARDIOTHORACIC | RN | (CABGx4 f/u post 2 | | | | SURGERY 1100 | | day discharge) | | | | [address] | | | | | | [facility] [place] [place] | | | | | | [address] | | | | | | [phone] | | | +--------+ + + + [...] | | | | | [place] [address] | | | | | | [phone] | | | | | | | | +--------+---------+ + + + documented as of this encounter Visit Diagnoses Not on filedocumented in this encounter"
--- OUTSIDE RECORDS SUMMARY | ~2019-04-07 | XMS | Clinical Summary ---
Demographics + + + | Address | [address] | | | [place] [address] | + + + | Home Phone | | + + + | Preferred Language | Unknown | + + + | Marital Status | Legally | + + + | Hindu Affiliation | 1041 | + + + [...] Team Providers + +------+ + | Care Summer Law Clerk Name | Role | Phone | + +------+ + | Janusz Davis MD | PCP | | + +------+ + Allergies + + [...] + + +---------+------+------+-------+ | metoprolol | Take 1 tablet by | 30 | 0 | 11/0 | | Activ | | succinate | mouth 2 times daily. | tablet | | 5/20 | | e | | (TOPROL-XL) 50 mg 24 | | | | 19 | | | | hr tablet | | | | | | | + + + +---------+------+------+-------+ | losartan (COZAAR) | Take 1 tablet by | 30 | 0 | 11/0 | | Activ | | 50 mg tablet | mouth Daily. | tablet | | 5/20 | | e | | | | | | 19 | | | + + + +---------+------+------+-------+ | warfarin | Take 3 tablets by | 30 | 0 | 11/0 | | Activ | | (COUMADIN) 1 mg | mouth Daily. | tablet | | 5/20 | | e | | tablet | | | | 19 | | | + + + +---------+------+------+-------+ | aspirin 325 MG EC | Take 1 tablet by | 30 | 0 | 11/0 | | Activ | | tablet | mouth Daily. | tablet | | 6/20 | | e | | | | | | 19 | | | + + + +---------+------+------+-------+ | sodium bicarbonate | Take 1 tablet by | 90 | 2 | 11/0 | 02/0 | Activ | | 650 mg tablet | mouth 3 times daily | tablet | | 10/12 | 08/12 | e | | | for 90 days. | | | 19 | 20 | | + + + +---------+------+------+-------+ | metFORMIN | Take 500 mg by mouth | | 0 | | | Activ | | (GLUCOPHAGE) 500 mg | every evening. | | | | | e | | tablet | | | | | | | + + + +---------+------+------+-------+ | SITagliptin | Take 1 tablet by | 30 | 11 | 10/24 | 02/24 | Disco | | (JANUVIA) 50 MG | mouth Daily. | tablet | | 07/12 | 05/14 | ntinu | | tablet | | | | 19 | 19 | ed | | | | | | | | (Disc | | | | | | | | ontin | | | | | | | | ued | | | | | | | | by | | | | | | | | anoth | | | | | | | | er | | | | | | | | clini | | | | | | | | bibi) | + + + +---------+------+------+-------+ | oxyCODONE | Take 1 tablet by | 30 | 0 | 11/0 | 02/23 | Expir | | (ROXICODONE) 5 mg | mouth every 6 hours | tablet | | /20 | 5/20 | ed | | tablet | as needed for Pain | | | 19 | 19 | | | | for up to 10 days. | | | | | | + + + +---------+------+------+-------+ | insulin lispro | Inject 0-14 Units | 10 mL | 0 | 0 | 02/24 | Disco | | (HUMALOG) 100 | under the skin 3 | | | 10/12 | / | ntinu | | units/mL injection | times daily (with | | | 19 | 19 | ed | | (vial) | meals). [employer] | | | | | (Disc | | | Correctional | | | | | ontin | | | Scale:For Blood | | | | | ued | | | Glucose (BG):142 to | | | | | by | | | 180 Give 2 | | | | | anoth | | | [id number] to 220 Give | | | | | er | | | 4 [id number] to 260 | | | | | clini | | | Give 6 [id number] | | | | | bibi) | | | to 300 Give 8 | | | | | | | | to 350 Give | | | | [...] | syringe. | | | | | | + + + +---------+------+------+-------+ Active Problems + + + | Problem | Noted Date | + + + | S/P CABG x 4 | 02/24/2019 | + + + | Ischemic cardiomyopathy | 02/23/2019 | + + + | NSTEMI (non-ST elevated myocardial infarction) | 02/11/2019 | + + + | Acute coronary syndrome | 02/11/2019 | + + + | CKD (chronic [...] Date | + + + + | Chest pain | 02/12/20 | | | | 19 | 9 | + + + + | Acute on chronic renal failure | 02/12/20 | | | | 19 | 9 | + + + + | ATN [...] | +--------+ + + + + | 04/03/ | Hospital | Radiology | Adrian, | CVD (cardiovascular | | 2019 | Encounter | | Juan Price, | disease) | | | | | MD | | +--------+ + + + + | 03/21/ | Orders Only | Cardiology | Adrian, | CVD (cardiovascular | | 2018 | | | Juan Price, | disease) (Primary | | | | | MD | Dx) | +--------+ + + + + | 03/20/ | Office | Cardiothoracic | Yomi Garcia | S/P CABG x 4 | | 2018 | Visit | Surgery | [address] | (Primary Dx); | | | | | | Follow-up exam | +--------+ + + + + | 03/16/ | Abstract | Nephrology | Shea Pedraza, | | | 2018 | | | MD | | +--------+ + + + + | 03/15/ | Office | Nephrology | Shea Pedraza, | CKD (chronic kidney | | 2018 | Visit | | MD | disease) [...] | | | CABG x 4 | +--------+ + + + + | 03/14/ | Abstract | Nephrology | Shea Pedraza, | | | 2018 | | | MD | | +--------+ + + + + | 03/13/ | Telephone | Cardiothoracic | Day Oneal, | No Show | | 2018 | | Surgery | RN | | +--------+ + + + + | 03/02/ | Telephone | Cardiothoracic | Day Oneal, | Follow-up(Procedure) | | 2018 | | Surgery | RN | (CABGx4 f/u post 2 | | | | | | day discharge) | +--------+ + + + + | 03/01/ | Orders Only | Nephrology | Shea Pedraza, | CKD (chronic kidney | | 2018 | | | MD | disease) stage 3, | | | | | | GFR 30-59 ml/min | | | | | | (HCC) (Primary Dx); | | | | | | Anemia in stage 3 | | | | | | chronic kidney | | | | | | disease (HCC) | +--------+ + + + + | 02/15/ | Anesthesia | | Ed Elmore MD | | | 2018 | Event | | | | +--------+ + + + + | 02/15/ | Surgery | | Liban Nair MD | CORONARY ARTERY | | 2018 | | | | BYPASS GRAFT X4 WITH | | | | | | TAKEDOWN LEFT | | | | | | INTERNAL MAMMARY | | | | | | ARTERY, EVH RIGHT | | | | | | SAPHONUS VEIN | +--------+ + + + + | 02/11/ | Surgery | Radiology | Adrian, | CV COR ANGIO | | 2018 | | | Juan Price, | | | | | | | | +--------+ + + + + | 02/11/ | Hospital | Internal Medicine | Albert Strange | NSTEMI (non-ST | | 2019 - | Encounter | | MD Saeid Erickson, | elevated myocardial | | | | | Theodore Alcala MD | infarction) (HCC) | | 02/28/ | | | Sue Avitia MD | (Primary Dx); CKD | | 2018 | | | Liban Nair MD | (chronic kidney | | | | | | disease) stage 4, | | | | | | GFR 15-29 ml/min | | | | | | (HCC); Acute | | | | | | coronary syndrome | | | | | | (HCC); Acute renal | | | | | | failure with other | | | | | | specified | | | | | | pathological kidney | | | | | | lesion superimposed | | | | | | on stage 3 chronic | | | | | | kidney disease | | | | | | (HCC); Paroxysmal | | | | | | atrial fibrillation | | | | | | (HCC); Chest pain, | | | | | | unspecified [...] whether | | | | | | [place] or | | | | | | [...] insulin | | | | | | ([facility]); | | | | | | Hyperlipidemia, | | | | | | unspecified | | | | | | hyperlipidemia type; | | | | | | JAMESON (acute kidney | | | | | | injury) ([facility]); CKD | | | | | | (chronic kidney | | | | | | disease) stage 3, | | | | | | GFR 30-59 ml/min | | | | | | ([facility]); Essential | | | | | | [...] (moderate) | | | | | | ([facility]); Hyperkalemia; | | | | | | [...] cardiomyopathy | +--------+ + + + + | 01/24/ | Orders Only | Nephrology | Shea Pedraza, | CKD (chronic kidney | | 2018 | | | MD | disease) stage 3, | | | | | | GFR 30-59 ml/min | | | | | | ([facility]) (Primary Dx) | +--------+ + + + + from Last 3 Months Immunizations + + + + | Name | Administration Dates | Next Due | + + + + | HEP A, 2 DOSE | 08/20/2015 | | | (ADULT) | | | + + + + | HEP A/HEP B, 3 DOSE | 01/22/2013, 11/10/2012, 09/27/2012 | | | (ADULT) | | | + + + + | INFLUENZA PF | 01/10/2019, 01/03/2018, 03/02/2017 | | | QUAD(PED/ADOL/ADULT) | | | | ,PSKT or VIAL | | | + + + + | PNEUMOCOCCAL | 10/16/2010 | | | POLYSACCHARIDE | | | | 23-VALENT (PPSV23) | | | + + + + | ZOSTER NON-LIVE | 12/07/2018 | | | (SHINGRIX) | | | + + + + [...] | | + + + + + Plan of Treatment [...] | | | | | | [place] [address] | | | | | | [phone] | | | | | | | [...] + + + + | Vaccine: Zoster (2 | | 12/07/2018 | | | of 2) | 9 | | | + + + + + | Hemoglobin A1c | | 02/15/2019, 02/14/2019, | | | Screening | 0 | 07/03/2018, Additional history | | | | | exists | | + + + + + | Vaccine: | Completed | 10/16/2010 | | | Pneumococcal 19-64 | | | | + + + + + | Vaccine: Influenza | Completed | 01/10/2019, 01/03/2018, | | | | | 03/02/2017 | | + + + + + Implants + +--------+-------+ +--------+--------+--------+ | Implanted | Type | Area | Manufacture | Device | Shelf | Model | | | | | r | | Expira | / | | | | | | Identi | tion | Serial | | | | | | fier | Date | / Lot | + +--------+-------+ +--------+--------+--------+ | Marker Grft Crnry Imp Strl - | Generi | N/A: | GENESSE | | 06/23/ | AMGM-S | | SnaImplanted: Qty: 1 on | c | Heart | BIOMEDICAL | | 2021 | D /NA | | 02/15/2019 by Liban Nair, | | | - GNES | | | /[id number] | | at [facility] | | | | | | 12 | | [facility] | | | | | | | + +--------+-------+ +--------+--------+--------+ | Marker Grft Crnry Imp Strl - | Generi | N/A: | GENESSE | | 10/23/ | AMGM-S | | SnaImplanted: Qty: 2 on | c | Heart | BIOMEDICAL | | 2021 | D /NA | | 02/15/2019 by Liban Nair, | | | - GNES | | | /[id number] | | at [facility] | | | | | | 97 | | [facility] | | | | | | | + +--------+-------+ +--------+--------+--------+ Procedures + +--------+ + + + | Procedure Name | Priori | Date/Time | Associated Diagnosis | Comments | | | ty | | | | + +--------+ + + + | ECHO COMPLETE | Routin | 04/03/2019 | CVD | Results for this | | | e | 2:54 PM | (cardiovascular | procedure are in the | | | | PST | disease) | results section. | + +--------+ + + + | LABS - EXTERNAL SCAN | | 03/14/2019 | | Results for this | | | | 12:00 AM | | procedure are in the [...] | LABS - EXTERNAL SCAN | | 03/13/2019 | | Results for this | | | | 12:00 AM | | procedure are in the [...] | EXTERNAL LAB: BUN | Routin | 03/13/2019 | | Results [...] + + + | POC DENIS 4, ISKATELYNNT | Routin | 02/15/2019 | | [...] | + +--------+ + + + | CHARLIE KLINE | Routin | 02/15/2019 | | Results [...] + +--------+ + + + | POC CHARLIE, DENIS8, | Routin | 02/15/2019 | | Results for this | | ARTERIAL | e | 9:43 AM | | procedure are in the | | | | PDT | | results section. | + +--------+ + + + | ANE PULMONARY ARTERY | Routin | 02/15/2019 | | Results for this | | LINE NOTE | e | 9:29 AM | | procedure are in the | | | | PDT | | results section. | + +--------+ + + + | ANE AIRWAY NOTE | Routin | 02/15/2019 | | Results for this | | | e | 9:28 AM | | procedure are in the [...] +--------+ + + + | POC DENIS Duggan NORBERTODung | Routin | 02/15/2019 | | Results [...] | + +--------+ + + + | ANE ARTERIAL LINE | Routin | 02/15/2019 | | Results for this | | NOTE | e | 7:14 AM | | [...] | | n - | | | 10/20/ | | | 2019 | | | [...] | | | ON?10/ | | | 20/201 | | | 9 | | | 03:11? | | | JOHNSO | | | N, | | | STANIS | | | LAUS?M | | | RN: | | | [id number] | | | [id number] | | | riteri | | | [...] | | | St. | | | [place] | | | y | | | [...] | | | St. | | | [place] | | | y H. | | [...] | | | St. | | | [place] | | | y H. | | [...] | | | St. | | | [place] | | | y H. | | [...] | | | St. | | | [place] | | | y H. | | [...] | | | St. | | | [place] | | | y H. | | [...] | | e of | | | [place] | | | | | | dasilva [...] [email or web address] | | | m | +---+--------+ from Last 3 Months Results ECHO Complete (04/03/2019 2:54 PM PST)Only the most recent of 2 results within the time manuel alfred is included. + +--------+ + + + | Component | Value | Ref Range | Performed | Pathologist | | | | | At | Signature | + +--------+ + + + | LVEF-TTE | 56 | % | [facility] | | | TRANSTHORAC | | | | | | IC ECHO | | | | | + +--------+ + + + | Patient | 203# | | [facility] | | | Weight | | | | | | (lbs) | | | | | + +--------+ + + + | Patient | 71" | | [facility] | | | Height | | | | | + +--------+ + + + | Inferior | 1.9 | cm | [facility] | | | Vena Cava | | | | | | Diameter at | | | | | | | | | | | | Inspiration | | | | | + +--------+ + + + | Inferior | 2.2 | cm | [facility] | | | Vena Cava | | | | | | Diameter at | | | | | | Expiration | | | | | + +--------+ + + + | RA PRESSURE | 8 | mmHg | [facility] | | + +--------+ + + + | LVIDd | 5.56 | cm | [facility] | | + +--------+ + + + | FS | 33 | % | [facility] | | + +--------+ + + + | LA volume | 86.62 | mL | [facility] | | + +--------+ + + + | Ascending | 2.96 | cm | [facility] | | | aorta | | | | | + +--------+ + + + | AV mean | 2.36 | mmHg | [facility] | | | gradient | | | | | + +--------+ + + + | Aortic | 3.97 | cm2 | [facility] | | | Valve Area | | | | | | by | | | | | | Continuity | | | | | | VTI | | | | | + +--------+ + + + | MV Area by | 3.82 | cm2 | [facility] | | | P 1/2 | | | | | | method | | | | | + +--------+ + + + | PV peak | 2.39 | mmHg | [facility] | | | gradient | | | | | + +--------+ + + + | Pulm vein | 119.89 | msec | [facility] | | | "A" wave | | | | | + +--------+ + + + | Pulm vein | 30.59 | | [facility] | | | S/D ratio | | | | | + +--------+ + + + | LVOT | 2.56 | cm | [facility] | | | diameter | | | | | + +--------+ + + + | LVOT peak | 70.89 | cm/s | [facility] | | | jayy | | | | | + +--------+ + + + | LVOT peak | 15.39 | cm | [facility] | | | VTI | | | | | + +--------+ + + + | AV peak jayy | 96.36 | cm/s | [facility] | | + +--------+ + + + | AV VTI | 19.92 | cm | [facility] | | + +--------+ + + + | MR max jayy | 482.68 | cm/s | [facility] | | + +--------+ + + + | AV peak | 3.71 | mmHg | [facility] | | | gradient | | | | | + +--------+ + + + | TV peak | 0.58 | mmHg | [facility] | | | gradient | | | | | + +--------+ + + + | PV mean | 1.49 | mmHg | [facility] | | | gradient | | | | | + +--------+ + + + | MV VTI | 164.5 | cm | [facility] | | + +--------+ + + + | MV Pressure | 57.58 | msec | [facility] | | | 1/2 time | | | | | + +--------+ + + + | Pulm Vein | 48.59 | cm/s | [facility] | | | Peak S Jayy | | | | | + +--------+ + + + | Pulm Vein | 55.91 | cm/s | [facility] | | | Peak D Jayy | | | | | + +--------+ + + + | LA Volume | 41 | mL/m2 | [facility] | | | Index | | | | | + +--------+ + + + | AV LVOT | 2.01 | mmHg | [facility] | | | Peak | | | | | | Gradient | | | | | + +--------+ + + + | AV LVOT | 1.19 | mmHg | [facility] | | | Mean | | | | | | Gradient | | | | | + +--------+ + + + | TR Peak | 30 | mmHg | [facility] | | | Gradient | | | | | + +--------+ + + + | TR Velocity | 273.07 | cm | [facility] | | + +--------+ + + + | PI Peak | 77.28 | cm/s | [facility] | | | Velocity | | | | | + +--------+ + + + | LV | 9.4 | cm | [facility] | | | Diastolic | | | | | | Length 4C | | | | | + +--------+ + + + | RV | 3.3 | cm | [facility] | | | Diastolic | | | | | | Basal | | | | | | Diameter | | | | | + +--------+ + + + | LV | 56 | % | [facility] | | | Cavazos's | | | | | | Biplane EF | | | | | + +--------+ + + + | LV ED | 193.41 | ml | [facility] | | | Volume | | | | | | (Cavazos's) | | | | | + +--------+ + + + | LV ED | 91 | ml/m2 | [facility] | | | Volume | | | | | | Index | | | | | + +--------+ + + + | LV ES | 85.43 | ml | [facility] | | | Volume | | | | | + +--------+ + + + | LVOT Mean | 51.83 | cm/s | [facility] | | | Velocity | | | | | + +--------+ + + + | RVSP | 38 | mmHg | [facility] | | | Estimated | | | | | + +--------+ + + + | MV | 189.59 | msec | [facility] | | | Deceleratio | | | | | | n Time | | | | | + +--------+ + + + | MV E/A | 1.64 | | [facility] | | | Ratio | | | | | + +--------+ + + + | MV Peak | 46.71 | cm/s | [facility] | | | A-Wave | | | | | + +--------+ + + + | MV Peak | 76.79 | cm/s | [facility] | | | E-Wave | | | | | + +--------+ + + + | TV | 245.56 | msec | [facility] | | | Deceleratio | | | | | | n Time | | | | | + +--------+ + + + | TV Peak | 36.74 | cm/s | [facility] | | | A-Wave | | | | | + +--------+ + + + | TV Peak | 37.99 | cm/s | [facility] | | | E-Wave | | | | | + +--------+ + + + | PV Mean | 59.42 | cm/s | [facility] | | | Velocity | | | | | + +--------+ + + + | AV Mean | 72.81 | cm/s | [facility] | | | Velocity | | | | | + +--------+ + + + | RA Area | 17.1 | cm2 | [facility] | | + +--------+ + + + | RA | 5 | cm | [facility] | | | Dimension | | | | | + +--------+ + + + | LA/Aorta | 1.49 | | [facility] | | | Ratio | | | | | + +--------+ + + + | LA Area | 25.64 | cm2 | [facility] | | + +--------+ + + + | LA Major | 0.1992 | cm | [facility] | | + +--------+ + + + | LV ES | 40 | ml/m2 | [facility] | | | Volume | | | | | | Index | | | | | + +--------+ + + + | Cardiac | 5.54 | l/min | [facility] | | | Output | | | | | + +--------+ + + + | Cardiac | 2.61 | l/min/m2 | [facility] | | | Index | | | | | + +--------+ + + + | Vitals | 70 | | [facility] | | | Heart Rate | | | | | | Rest | | | | | + +--------+ + + + | Vitals BP | 120 | | [facility] | | | Systolic | | | | | + +--------+ + + + | Vitals BP | 80 | | [facility] | | | Diastolic | | | | | + +--------+ + + + | Aortic Root | 3.56 | cm | [facility] | | | Diameter | | | | | + +--------+ + + + | IVS | 1.17 | cm | [facility] | | | Diastolic | | | | | | Thickness | | | | | | MM | | | | | + +--------+ + + + | LVPW | 1.32 | cm | [facility] | | | Diastolic | | | | | | Thickness | | | | | | MM | | | | | + +--------+ + + + | IVS | 1.4 | cm | [facility] | | | Systolic | | | | | | Thickness | | | | | | MM | | | | | + +--------+ + + + | LV Systolic | 3.75 | cm | [facility] | | | Diameter | | | | | | MM | | | | | + +--------+ + + + | LVPW | 1.31 | cm | [facility] | | | Systolic | | | | | | Thickness | | | | | | MM | | | | | + +--------+ + + + | AV Cusp | 2.09 | cm | [facility] | | | Seperation | | | | | | MM | | | | | + +--------+ + + + | LA Systolic | 5.31 | cm | [facility] | | | Diameter | | | | | | MM | | | | | + +--------+ + + + + + | Specimen | + + | | + + + + + | Narrative | Performed At | + + + | LVEF is | [facility] | | 50-55% without signifcant RWMA (RVSP) is 38 mmHg | | | | | + + + + +---------+ + + | Performing | Address | City/State/Zipcode | Phone Number | | Organization | | | | + +---------+ + + | [facility] | | | | + +---------+ + + LABS - EXTERNAL SCAN (03/14/2019 12:00 AM PST)Only the most recent of 2 results within the time period is included. + + + | Narrative | Performed At | + + + | Ordered by an | | | unspecified provider. | | + + + External Lab: [facility]US (03/13/2019) + +-------+ + + + | Component | Value | Ref Range | Performed | Pathologist | | | | | At | Signature | + +-------+ + + + | JUS, | 35 | | EXTERNAL | | [...] 1.012 | | EXTERNAL | | | [place], | | | LAB | | | [...] + +---------+ + + External Lab: Iron Total (03/13/2019) [...] | | | + +---------+ + + Urinalysis, Microscopic Only (03/13/2019) + + + [...] + + | Urine | + + Transferrin (03/13/2019) + + + + + [...] + + | Blood | + + POC Glucose (02/28/2019 7:36 AM PST)Only the most recent of 86 results within the time per iod is included. + + + + + + | Component | Value | Ref Range | Performed | Pathologist | | | | | At | Signature | + + + + + + | Glucose, | 161 (H)Comment: Testing | 65 - 99 mg/dL | [place] | | | POC | performed at [facility];[address] | LAB[address] | | | | [address];[place], [place] | | | | | | [address] | | | | + + + + + + + + | Specimen | + + | | + + + + + + + | Performing | Address | City/State/Zipcode | Phone Number | | Organization | | | | + + + + + | [facility] | [address] | [place] [address] | [phone] | + + + + + Protime INR (02/28/2019 4:39 AM PST)Only the most recent of 10 results within the time per iod is included. + + + + + + | Component | Value | Ref Range | Performed | Pathologist | | | | | At | Signature | + + + + + + | INR | 2.8Comment: REFERENCE | | [facility] | | | | RANGE:0.9 [...] | | | | | performed at [facility];[address] | | | | | | [address];[place] | | | | | | [address] | | | | + + + + + + + + | Specimen | + + | Blood | + + + + + + + | Performing | Address | City/State/Zipcode | Phone Number | | Organization | | | | + + + + + | [facility] | [address] | [place] [address] | [phone] | + + + + + CBC with Differential (02/28/2019 4:39 AM PST)Only the most recent of 15 results within e time period is included. + + + + + + | [...] | | | Absolute | performed at [facility], [address] | LABORATORY | | | | [address], | | | | | | [place] [address] | | | | + + + + + + + + | Specimen | + + | Blood | + + + + + + + | Performing | Address | City/State/Zipcode | Phone Number | | Organization | | | | + + + + + | [facility] | [address] [facility] [facility] [address] | [place] [address] | [phone] | + + + + + Magnesium (02/28/2019 4:39 AM PST)Only the most recent of 14 results within the time santo garcia is included. + + + + + + | Component | Value | Ref Range | Performed | Pathologist | | | | | At | Signature | + + + + + + | Magnesium | 2.0Comment: Testing | 1.7 - 2.4 mg/dL | [place] | | | | performed at [facility], [address] | LABORATORY | | | | [address], | | | | | | [place] [address] | | | | + + + + + + + + | Specimen | + + | Blood | + + + + + + + | Performing | Address | City/State/Zipcode | Phone Number | | Organization | | | | + + + + + | [facility] | [address] | [place] [address] | [phone] | + + + + + Basic Metabolic Panel (02/28/2019 4:39 AM PST)Only the most recent of 16 results within time period is included. + + + + + + | [...] 40 (L)Comment: GFR <60: | >60 | [facility] | | | GFR | [...] | | | | | | MDRD IDWI traceable | | | | | | equation.Testing | | | | | | performed at [facility], [address] | | | | | | [facility], | | | | | | [place] [address] | | | | + + + + + + + + | Specimen | + + | Blood | + + + + + + + | Performing | Address | City/State/Zipcode | Phone Number | | Organization | | | | + + + + + | [facility] | [address] | [place] [address] | [phone] | + + + + + Clostridium difficile DNA amplified (02/25/2019 5:42 PM PST) + + + + + + | Component | Value | Ref Range | Performed | Pathologist | | | | | At | Signature | + + + + + + | C. Diff | NEGATIVE | CLNEG | [facility] | | | Toxin A/B, | | | LABORATORY | | | NAAT | | | | | + + + + + + | C Diff | 027 NAP1 BI PRESUMPTIVE | | [facility] | | | Strain | NEGATIVEComment: | | LABORATORY | | | [id number] | Detection of 027 NAP1 BI | [...] | | | | | performed at [facility];[address] | | | | | | [address];[place], [place] | | | | | | [address] | | | | + + + + + + + + | Specimen | + + | Stool - Stool | | specimen (specimen) | + + + + + + + | Performing | Address | City/State/Zipcode | Phone Number | | Organization | | | | + + + + + | [facility] | [address] | [place] [address] | [phone] | + + + + + Clostridium [...] | | | | | performed at [facility];[address] | | | | | | [address];[place] | | | | | | [address] | | | | + + + + + + + + | Specimen | + + | | + + + + + + + | Performing | Address | City/State/Zipcode | Phone Number | | Organization | | | | + + + + + | [facility] | [address] | [place] [address] | [phone] | + + + + + Hepatic [...] [facility] | | | | performed at [facility], [address] | LABORATORY | | | | [address], | | | | | | [place] [address] | | | | + + + + + + + + | Specimen | + + | Blood | + + + + + + + | Performing | Address | City/State/Zipcode | Phone Number | | Organization | | | | + + + + + | [facility] | [address] | [place] [address] | [phone] | + + + + + PTT (02/24/2019 4:22 AM PDT)Only the most recent of 14 results within the time period is i ncluded. + + + + + + | Component | Value | Ref Range | Performed | Pathologist | | | | | At | Signature | + + + + + + | PTT | 90 (HH)Comment: CALLED | 23 - 32 seconds | [facility] | | | | NURSING UNITREAD BACK | | LABORATORY | | | | RESULTS VERIFIEDYESSICA | | | | | | O IN 9RP AT 0542 BY | | | | | | TDTesting performed at | | | | | | [facility];[address];[place] [address] | | | | + + + + + + + + | Specimen | + + | Blood | + + + + + + + | Performing | Address | City/State/Zipcode | Phone Number | | Organization | | | | + + + + + | [facility] | [address] | [place] [address] | [phone] | + + + + + Potassium (02/23/2019 9:19 PM PDT)Only the most recent of 6 results within the time period is included. + + + + + + | Component | Value | Ref Range | Performed | Pathologist | | | | | At | Signature | + + + + + + | K | 4.8Comment: Testing | 3.5 - 4.9 | [facility] | | | | performed at [facility];[address] | mmol/L | LABORATORY | | | | [facility];[place], [place] | | | | | | [address] | | | | + + + + + + + + | Specimen | + + | Blood | + + + + + + + | Performing | Address | City/State/Zipcode | Phone Number | | Organization | | | | + + + + + | [facility] | [address] | [place] [address] | [phone] | + + + + + ECHO [...] cm/s | [facility] | | | jayy | | | | | + +--------+ + + + | LVOT peak | 11.26 | cm | [facility] | | | VTI | | | | | + +--------+ + + + | AV peak jayy | 77.14 | cm/s | [facility] [...] +---------+ + + XR Chest 2 Vws (02/20/2019 8:22 AM PDT)Only the most recent of 2 results within the time desirae sol is included. + + | Specimen | + + [...] | + +---------+ + + XR Chest AP Portable (02/19/2019 4:54 AM PDT)Only the most recent of 5 results within the time period is included. + + | Specimen | + + [...] +---------+ + + Blood gas, Arterial (02/15/2019 11:29 PM PDT)Only the most recent of 7 results within the period is included. + + + + + + | [...] | | | Arterial, | performed at [facility];[address] | | LABORATORY | | | POC | [address];[place], [place] | | | | | | [address] | | | | + + + + + + + + | Specimen | + + | | + + + + + + + | Performing | Address | City/State/Zipcode | Phone Number | | Organization | | | | + + + + + | [facility] | [address] | [place] [address] | [phone] | + + + + + POC ISTAT, CG8, Venous (02/15/2019 8:50 PM PDT)Only the most recent of 2 results within time period is included. + + + + + + | [...] | | | | | performed at [facility];[place] | | | | | | [address];[place] | | | | | | [address] | | | | + + + + + + + + | Specimen | + + | | + + + + + + + | Performing | Address | City/State/Zipcode | Phone Number | | Organization | | | | + + + + + | [facility] | [address] | [place] [address] | [phone] | + + + + + Calcium, [...] [facility] | | | | performed at [facility];[address] | | LABORATORY | | | | [address];[place], [place] | | | | | | [address] | | | | + + + + + + + + | Specimen | + + | Blood | + + + + + + + | Performing | Address | City/State/Zipcode | Phone Number | | Organization | | | | + + + + + | [facility] | [address] | [place] [address] | [phone] | + + + + + Fibrinogen (02/15/2019 1:45 PM PDT) + + + + + + | Component | Value | Ref Range | Performed | Pathologist | | | | | At | Signature | + + + + + + | Fibrinogen | 434Comment: Testing | 200 - 450 mg/dL | [facility] | | | | performed at [facility];[address] | | LABORATORY | | | | [address];[place] | | | | | | [address] | | | | + + + + + + + + | Specimen | + + | Blood | + + + + + + + | Performing | Address | City/State/Zipcode | Phone Number | | Organization | | | | + + + + + | [facility] | [address] | [place] [address] | [phone] | + + + + + Hemoglobin A1C (02/15/2019 1:45 PM PDT)Only the most recent of 2 results within the time desirae sol is included. + + + + + + | Component | Value | Ref Range | Performed | Pathologist | | | | | At | Signature | + + + + + + | Hemoglobin | 7.4 (H)Comment: HbA1c | 4.0 - 6.0 % | [facility] | | | A1c | [...] | 166 (H)Comment: | <154 mg/dL | [facility] | | | Average | Estimated Average | | LABORATORY | | | Glucose | Glucose calculated from | | | | | | hemoglobin A1c by use of | | | | | | the ADArecommended | | | | | | formula.Testing | | | | | | performed at [facility], [address] | | | | | [facility], | | | | | | [place] [address] | | | | + + + + + + + + | Specimen | + + | Blood | + + + + + + + | Performing | Address | City/State/Zipcode | Phone Number | | Organization | | | | + + + + + | [facility] | [address] | [place] [address] | [phone] | + + + + + POC ISTAT, CG8, Arterial (02/15/2019 1:39 PM PDT)Only the most recent of 9 results within the time period is included. + + + + + + | [...] (L)Comment: Testing | 13.7 - 16.7 | [facility] | | | POC | performed at [facility];[address] | g/dL | LABORATORY | | | | [address];[place], [place] | | | | | | [address] | | | | + + + + + + + + | Specimen | + + | | + + + + + + + | Performing | Address | City/State/Zipcode | Phone Number | | Organization | | | | + + + + + | [facility] | [address] | [place] [address] | [phone] | + + + + + ECG 12 lead (02/15/2019 1:22 PM PDT)Only the most recent of 6 results within the time judit od is included. + + + + + + | [...] CG 4, ISTAT Arterial (02/15/2019 12:14 PM PDT)Only the most recent of 4 results within the time period is included. + + + + + + | [...] Testing | 95 - 98 % | [facility] | | | Arterial, | performed at [facility];[address] | | LABORATORY | | | POC | [address];[place], [place] | | | | | | [address] | | | | + + + + + + + + | Specimen | + + | | + + + + + + + | Performing | Address | City/State/Zipcode | Phone Number | | Organization | | | | + + + + + | [facility] | [address] | [place] [address] | [phone] | + + + + + PAC (02/15/2019 9:29 AM PDT) + + + | Narrative | Performed At | + + + | Ed Elmore MD 02/15/2019 9:31 Pulmonary Artery Catheter | | | Note 02/15/2019 7:32 Indication: continuous CVP monitoring and | | | continuous hemodynamic monitoring Reason for insertion: new | | | indication for central line Prep solution: chlorhexidine/isoproplyl | | | alcohol Preparation: PA line kit used, staff scrubbed hands and prep | | | allowed to dry Sterile barriers used: all Port laterality: right | | | Port location: internal jugular Size: 9 Fr Catheter depth at end of | | | port: 54 cm Catheter Type: oximetric Port patency: All ports flushed | | | Placement verification: pulmonary artery waveform and | | | transesophageal echocardiogram Securement: transparent dressing and | | | dressing per hospital protocol Complications: no complications noted | | | at this time Person recording: fitting room attendant Performed by: Ed Elmore | | | Comments: Easy, first-pass insertion. Number of lumens: triple | | | lumen Location performed: OR | | + + + + + | Procedure Note | + + | Ed Elmore MD - 02/15/2019 9:29 AM PDT Pulmonary Artery Catheter Note | | | | 02/15/2019 7:32 | | Indication: continuous CVP monitoring and continuous hemodynamic monitoring | | Reason for insertion: new indication for central line | | Prep solution: chlorhexidine/isoproplyl alcohol | | Preparation: PA line kit used, staff scrubbed hands and prep allowed to dry | | Sterile barriers used: all | | Port laterality: right | | Port location: internal jugular | | Size: 9 Fr | | Catheter depth at end of port: 54 cm | | Catheter Type: oximetric | | Port patency: All ports flushed | | Placement verification: pulmonary artery waveform and transesophageal echocardiogram | | Securement: transparent dressing and dressing per hospital protocol | | Complications: no complications noted at this time | | Person recording: fitting room attendant | | Performed by: Ed Elmore MD | | Comments: Easy, first-pass insertion. | | Number of lumens: triple lumen | | Location performed: OR | + + Airway (02/15/2019 9:28 AM PDT) + + + | Narrative | Performed At | + + + | Ed Elmore MD 02/15/2019 9:28 Anesthesia Airway | | | Placement 02/15/2019 7:22 Preprocedure check: patient identified, | | | airway equipment checked, patient reassessment prior to induction, | | | airway assessed, suction and oxygen Rapid Sequence Induction: no | | | Mask ventilation: easy with oral airway Successful technique: Mac | | | Laryngoscope blade size: 3 Airway grade: 1 (Full view of glottis) | | | Other equipment: stylette Attempts: 1 Airway type: endotracheal | | | Size: 8 Cuffed: cuffed Route, reference point: teeth/lips Tube | | | depth: 22 cm Tube secured with: adhesive tape Trauma: none Tube | | | placement verification: bilateral chest rise, carbon dioxide | | | detection and equal bilateral breath sounds Performing provider: | | | Ed Elmore MD Please see intraoperative grid for any | | | additional medication documentation. | | + + + + + | Procedure Note | + + | Ed Elmore MD - 02/15/2019 9:28 AM PDT Anesthesia Airway Joiywwewy29/24/2019 | | 7:22Preprocedure check: patient identified, airway equipment checked, patient | | reassessment prior to induction, airway assessed, suction and oxygenRapid Sequence | | Induction: noMask ventilation: easy with oral airwaySuccessful technique: | | MacLaryngoscope blade size: 3 Airway grade: 1 (Full view of glottis)Other equipment: | | styletteAttempts: 1Airway type: endotrachealSize: 8Cuffed: cuffedRoute, reference point: | | teeth/lipsTube depth: 22 cmTube secured with: adhesive tapeTrauma: noneTube placement | | verification: bilateral chest rise, carbon dioxide detection and equal bilateral breath | | soundsPerforming provider: Vijaya Travis see intraoperative grid for any | | additional medication documentation. | |Attempts: 1 | |Airway type: endotracheal | |Size: 8 | |Cuffed: cuffed | |Route, reference point: teeth/lips | |Tube depth: 22 cm | |Tube secured with: adhesive tape | |Trauma: none | |Tube placement verification: bilateral chest rise, carbon dioxide detection and equal bilat eral breath sounds | |Performing provider: Ed Elmore MD | | | | | | | |Please see intraoperative grid for any additional medication documentation. 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 Mild AI. Frip-vg-fxppdoxb TR. Mild PI. Boavuhvq-xa-aqoebm PAH. | | | Bilateral pleural effusions [...] = 54mmHg | | | (consistent with ixeaglqs-hv-nigbav pulmonary arterial | | | hypertension--reading was consistent with direct PASP measurement via | | | Stonewall-Roland catheter). Pulmonic Valve Peak Velocity: 51.33 cm/s [...] = 54mmHg | | | (consistent with bjslzdoh-nb-baccle pulmonary arterial | | | hypertension--reading was consistent with direct PASP measurement via | | | Stonewall-Roland catheter). | | | | | | [...] Rad Results In - 02/15/2019 2:10 PM [facility] Transesophageal Echocardiography Report | | (SHALA) Demographics Patient Name MARCELO MANCINI Room Number 61530 | | Patient Number [id number] Date of Study 02/15/2019 Visit Number | | [id number] Referring Physician LUISANA ALCALA Accession Number [id number] | | Pelt Salter Date of 1965 Interpreting Physician Ed Elmore | | Age 53 year(s) Nurse Gender Male Stress | | TechnicianProcedureType of Study SHALA procedure:TRANSESOPHAGEAL(SHALA) - | | PERIOPERATIVE.Procedure DateDate: 02/15/2019 Start: 07:41 AMStudy [address] [facility] | | Quality: Adequate visualizationPatient Status: RoutineHeight: 70.87 inches Weight: | | 208.12 pounds BSA: 2.14 m^2 BMI: 29.14 kg/m^2Rhythm: Normal Sinus Rhythm HR: 75 bpm BP: | | 110/70 mmHg Conclusions Summary Severely depressed baseline LV global systolic function | | with multiple RWMAs as documented below. LVEF = 25-30%. Mild MR. Mild AI. | | Szea-vu-azpnexdj TR. Mild PI. Jkvzqatf-mk-tpklqk PAH. Bilateral pleural effusions | | (drained [...] tricuspid regurgitation. RVSP = 54mmHg (consistent with znszkrfc-wh-loawlh | | pulmonary arterial hypertension--reading was consistent with direct PASP measurement | | via Stonewall-Roland catheter). Pulmonic Valve Peak Velocity: 51.33 cm/s [...] RVSP = 54mmHg | | (consistent with qkaecclk-jf-upymii pulmonary arterial | | hypertension--reading was consistent with direct PASP measurement via | | Stonewall-Roland catheter). | | | | Pulmonic Valve [...] | | | + +---------+ + + Ada (02/15/2019 7:14 AM PDT) + + + | Narrative | Performed At | + + + | Ed Elmore MD 02/15/2019 7:15 Arterial Line Placement | | | 02/15/2019 7:14 Indication: continuous blood pressure monitoring | | | and acid-base/laboratory analysis Prep solution: | | | chlorhexidine/isoproplyl alcohol Patient was: sedated Pain | | | prevention: 1% lidocaine infiltration Laterality: right | | | Artery:brachial Size: 20 g Localization technique: ultrasound | | | Securement: transparent dressing, tape and arm board Performed by: | | | Ed Elmore MD Comments: Elective brachial insertion secondary to | | | poor radial target bilaterally (inspected with US in preop). | | | First-pass success. 12cm 20G catheter placed sterilely. | | | Please see intraoperative grid for any additional medication | | | documentation. | | + + + + + | Procedure Note | + + | Ed Elmore MD - 02/15/2019 7:14 AM PDT Arterial Line Vyejficjf94/24/2019 | | 7:14Indication: continuous blood pressure monitoring and acid-base/laboratory | | analysisPrep solution: chlorhexidine/isoproplyl alcoholPatient was: sedatedPain | | prevention: 1% lidocaine infiltrationLaterality: rightArtery:brachialSize: 20 | | gLocalization technique: ultrasoundSecurement: transparent dressing, tape and arm | | boardPerformed by: SUMANTH Travisomments: Elective brachial insertion secondary to | | poor radial target bilaterally (inspected with US in preop). First-pass success. 12cm | | 20G catheter placed sterilely.Please see intraoperative grid for any additional | | medication documentation. | |Size: 20 g | |Localization technique: ultrasound | |Securement: transparent dressing, tape and arm board | |Performed by: Ed Elmore MD | |Comments: Elective brachial insertion secondary to poor radial target bilaterally (inspecte d with US in preop). First-pass success. 12cm 20G catheter placed sterilely. | | | | | |Please see intraoperative grid for any additional medication documentation. | + + CBC no Differential (02/15/2019 5:49 AM PDT)Only the most recent of 3 results within the period is included. + + + + + + | [...] [facility] | | | | performed at [facility], [address] | | LABORATORY | | | | [address], | | | | | | [place] [address] | | | | + + + + + + + + | Specimen | + + | | + + + + + + + | Performing | Address | City/State/Zipcode | Phone Number | | Organization | | | | + + + + + | [facility] | [address] | [place] [address] | [phone] | + + + + + Renal Function Panel (02/15/2019 5:49 AM PDT)Only the most recent of 2 results within the time period is included. + + + + + + | [...] 37 (L)Comment: GFR <60: | >60 | [facility] [...] | | | | | performed at [facility], [address] | | | | | | [address], | | | | | | [place] [address] | | | | + + + + + + + + | Specimen | + + | Blood | + + + + + + + | Performing | Address | City/State/Zipcode | Phone Number | | Organization | | | | + + + + + | [facility] | [address] | [place] [address] | [phone] | + + + + + Red [...] BANK | Testing performed at | | [facility] | | | COMMENT | [facility];[address] | LABORATORY | | | | [address];[place] [address] | | | | + + + + + + + + | Specimen | + + | | + + + + + + + | Performing | Address | City/State/Zipcode | Phone Number | | Organization | | | | + + + + + | [facility] | [address] | [place] [address] | [phone] | + + + + + Type [...] + + + | UNIT # | [id number] | | [facility] | | | | [...] + + + | UNIT # | [id number] | | [facility] | | | | [...] + + + | UNIT # | [id number] | | [facility] | | | | [...] | | | RESULT | performed at [facility];[address] | | LABORATORY | | | | [address];[place], [place] | | | | | | [address] | | | | + + + + + + | UNIT # | [id number] | | [facility] | | | | [...] | + + + + + | [facility] | [address] | [place] [address] | [phone] | + + + + + Troponin I (02/14/2019 11:09 PM PDT)Only the most recent of 12 results within the time judit od is included. + + + + + + | Component | Value | Ref Range | Performed | Pathologist | | | | | At | Signature | + + + + + + | Troponin I | 14.737 ()Comment: | 0.00 - 0.04 | [facility] | | | | 0.04 [...] @ | | | | | | [address] | | | | | | performed at [facility];[address] | | | | | | [address];[place], [place] | | | | | | [address] | | | | + + + + + + + + | Specimen | + + | Blood | + + + + + + + | Performing | Address | City/State/Zipcode | Phone Number | | Organization | | | | + + + + + | [facility] | [address] | [place] [address] | [phone] | + + + + + XR [...] [facility] | | | | performed at [facility] | | LABORATORY | | | | [address];[place] | | | | | | [address] | | | | + + + + + + + + | Specimen | + + | Tissue - Both | | anterior nares (body | | structure) | + + + + + + + | Performing | Address | City/State/Zipcode | Phone Number | | Organization | | | | + + + + + | [facility] | [address] | [place] [address] | [phone] | + + + + + Phosphorus (02/13/2019 7:42 AM PDT) + + + + + + | Component | Value | Ref Range | Performed | Pathologist | | | | | At | Signature | + + + + + + | Phosphorus | 4.1Comment: Testing | 2.3 - 4.8 mg/dL | [facility] | | | | performed at [facility];[address] | | LABORATORY | | | | [address];[place], [place] | | | | | | [address] | | | | + + + + + + + + | Specimen | + + | Blood | + + + + + + + | Performing | Address | City/State/Zipcode | Phone Number | | Organization | | | | + + + + + | [facility] | [address] | [place] [address] | [phone] | + + + + + Urinalysis [...] - 1.030 | [facility] | | | [place], | | | LABORATORY | | | [...] | | | CRYSTALS | performed at [facility];[address] | | LABORATORY | | | | [address];[place] | | | | | | [address] | | | | + + + [...] | + + + + + | [facility] | [address] | [place] [address] | [phone] | + + + + + Urea Nitrogen, Urine, Random (02/12/2019 3:05 PM PDT) + + + + + + | Component | Value | Ref Range | Performed | Pathologist | | | | | At | Signature | + + + + + + | Urea | 570.0Comment: NO NORMAL | mg/dL | [facility] | | | Nitrogen, | [facility] ESTABLISHEDTesting | | LABORATORY | | | Urine | performed at [facility], [address] | | | | | [address], | | | | | | [place] [address] | | | | + + + [...] | + + + + + | [facility] | [address] | [place] [address] | [phone] | + + + + + Eosinophil [...] LABORATORY | | | | performed at [facility], [address] | | | | | | [facility], | | | | | | [place] [address] | | | | + + + [...] | + + + + + | [facility] | [address] | [place] [address] | [phone] | + + + + + Protein/Creatinine Ratio, Urine (02/12/2019 3:05 PM PDT) + + + + + + | Component | Value | Ref Range | Performed | Pathologist | | | | | At | Signature | + + + + + + | PRO/CREA | 1.364Comment: Testing | | [facility] | | | RATIO,URINE | performed at [facility], [address] | | LABORATORY | | | | [address], | | | | | | [place] [address] | | | | + + + + + + + + | Specimen | + + | | + + + + + + + | Performing | Address | City/State/Zipcode | Phone Number | | Organization | | | | + + + + + | [facility] | [address] | [place] [address] | [phone] | + + + + + Sodium, Urine, Random (02/12/2019 3:05 PM PDT) + + + + + + | Component | Value | Ref Range | Performed | Pathologist | | | | | At | Signature | + + + + + + | Sodium, | 27Comment: NO NORMAL | mmol/L | [facility] | | | Random | [facility]ISHEDTesting | | LABORATORY | | | urine | performed at [facility], [address] | | | | | [address], | | | | | | [place] [address] | | | | + + + [...] | + + + + + | [facility] | [address] | [place] [address] | [phone] | + + + + + Protein, [...] LABORATORY | | | | performed at [facility], [address] | | | | | [address], | | | | | | [place] [address] | | | | + + + + + + + + | Specimen | + + | | + + + + + + + | Performing | Address | City/State/Zipcode | Phone Number | | Organization | | | | + + + + + | [facility] | [address] | [place] [address] | [phone] | + + + + + Creatinine, [...] | | | urine | performed at [facility], [address] | | | | | [address], | | | | | | [place] [address] | | | | + + + [...] | + + + + + | [facility] | [address] | [place] [address] | [phone] | + + + + + Chloride, [...] | | | CHLORIDE | performed at [facility], [address] | | | | | [address] [facility], | | | | | | [place] [address] | | | | + + + [...] | + + + + + | [facility] | [address] | [place] [address] | [phone] | + + + + + US Renal Limited (02/12/2019 9:45 AM PDT) + + | Specimen | + + | | + + + + + | Impressions | Performed At | + + + | Negative renal ultrasound. Signed by: Radha Day Paige | [facility] | | Sign Date/Time: [...] | + +---------+ + + CK Total (02/12/2019 5:12 AM PDT)Only the most recent of 2 results within the time period is included. + + + + + + | Component | Value | Ref Range | Performed | Pathologist | | | | | At | Signature | + + + + + + | CK TOTAL | 309Comment: Testing | 55 - 400 U/L | [facility] | | | | performed at [facility];[address] | | LABORATORY | | | | [address];[place], [place] | | | | | | [address] | | | | + + + + + + + + | Specimen | + + | Blood | + + + + + + + | Performing | Address | City/State/Zipcode | Phone Number | | Organization | | | | + + + + + | [facility] | [address] [facility] | [place] [address] | [phone] | + + + + + CV CARDIAC PROCEDURE (02/11/2019 1:36 [...] Procedure Note | + + | Juan Campbell MD - 02/11/2019 1:35 PM PDT For additional detail as to | | the procedures performed and the equipment that was utilized, please refer to the | | Procedure Log. | | | |For additional detail as to the procedures performed and the equipment that was utilized, desirae de anda refer to the Procedure Log. [...] | | | Clotting | performed at [facility];[address] | seconds | LABORATORY | | | Time, POC | [address];[place], [place] | | | | | | [address] | | | | + + + + + + + + | Specimen | + + | | + + + + + + + | Performing | Address | City/State/Zipcode | Phone Number | | Organization | | | | + + + + + | [facility] | [address] | [place] [address] | [phone] | + + + + + Lipid [...] | | | Calculated | performed at [facility], [address] | | LABORATORY | | | | [address], | | | | | | [place] [address] | | | | + + + + + + + + | Specimen | + + | Blood | + + + + + + + | Performing | Address | City/State/Zipcode | Phone Number | | Organization | | | | + + + + + | [facility] | [address] | [place] [address] | [phone] | + + + + + TSH (02/11/2019 7:43 AM PDT) + + + + + + | Component | Value | Ref Range | Performed | Pathologist | | | | | At | Signature | + + + + + + | TSH | 0.779Comment: Testing | 0.450 - 5.100 | [facility] | | | | performed at [facility];[address] | uIU/mL | LABORATORY | | | | [address];[place] | | | | | | [address] | | | | + + + + + + + + | Specimen | + + | Blood | + + + + + + + | Performing | Address | City/State/Zipcode | Phone Number | | Organization | | | | + + + + + | [facility] | [address] | [place] [address] | [phone] | + + + + + B Type Natriuretic Peptide (02/11/2019 7:43 AM PDT) + + + + + + | Component | Value | Ref Range | Performed | Pathologist | | | | | At | Signature | + + + + + + | BNP | 406.69 (H)Comment: | 0 - 100 pg/mL | [facility] | | | | Testing performed at | | LABORATORY | | | | [facility];[address] | | | | | | [place] [address] | | | | + + + + + + + + | Specimen | + + | Blood | + + + + + + + | Performing | Address | City/State/Zipcode | Phone Number | | Organization | | | | + + + + + | [facility] | [address] | [place] [address] | [phone] | + + + + + Comprehensive [...] | | | | | performed at [facility], [address] | | | | | [address], | | | | | | [place] [address] | | | | + + + + + + + + | Specimen | + + | Blood | + + + + + + + | Performing | Address | City/State/Zipcode | Phone Number | | Organization | | | | + + + + + | [facility] | [address] | [place] [address] | [phone] | + + + + + from Last 3 Months Insurance [...] +--------+ +--------+-------+---------+--------+ | BCBS | BCBS | [id number] | 09/24/19 | | | PPO | | | OOS | C | 19-Pre | | | | | | PPO | | sent | | | | + +--------+ +--------+-------+---------+--------+ | BCBS | BCBS | [id number] | 09/24/19 | | | PPO | | | OOS | C | 19-Pre | | | | | | PPO | | sent | | | | + +--------+ +--------+-------+---------+--------+ | [facility] | IHS | [id number] | 05/01/19 | | | Indemn | | SERVICE | YELLOW | | 15-Pre | | | ity | | | [place] | | sent | | | | + +--------+ +--------+-------+---------+--------+ | [facility] | [employer]HS | [id number] | 02/11/ | | | Joe | | SERVICE | YELLOW | | 2019-P | | | ity | | | [place] | | resent | | | | + +--------+ +--------+-------+---------+--------+ [...] | | al/Lefty | | 1965 | [phone] | [place] | | | [place] | | | 2 (Home) | [address] | | | | | | [phone] | | | | | | | 1 (Work) | | + +--------+ +--------+ + + | Joselito Robertson | Person | Self | [birth year] | [address] | | | al/Fam | | 1965 | [phone] | [place] | | | [place] | | | 2 (Home) | [address] | + +--------+ +--------+ + + Advance Directives + + + + + | Type | Date Recorded | Patient | Explanation | | | | Mixing Picker Tender | | + + + + + | Power of | | | | | Carbider | | | | + + + + + | Advance | 02/11/2019 | | | | Directive | 9:18 AM | | | + + + + + + + + + + | Code Status | Date | Date | Comments | | | Activated | Inactivated | | + + + + + | Full Code | 02/15/2019 | 02/28/2019 | | | | 1:24 PM | 12:41 PM | | + + + + + + + + +---+ | | | | | + + + +---+ | Full Code | 02/11/2019 | 02/15/2019 | | | | 6:00 AM | 1:24 PM | | + + + +---+
--- OUTSIDE RECORDS SUMMARY | ~2019-04-07 | XMS | Encounter Summary ---
Demographics + + + | Address | [address] | | | [place] [address] | + + + | Home Phone | | + + + | Preferred Language | Unknown | + + + | Marital Status | Legally | + + + | Advent Affiliation | 1041 | + + + [...] Team Providers + +------+ + | Care Complex Care Nurse Practitioner Name | Role | Phone | + +------+ + PCP | Unavailable | + +------+ + Encounter Details +--------+ + + + + | Date | Type | Department | Care Team | Description | +--------+ + + + + | 09/22/ | Orders Only | [facility] [place] | Shea Pedraza W, | | | 2018 | | NEPHROLOGY [address] | [address] | | | | | [address] | [address] [place] | | | | | [place], [place] | [place] [address] | | | | | [address] | [phone] | | | | | [phone] | | | +--------+ + + + [...] | | | | | [address] | | | | | | [place] [address] | | | | | | [phone] | | | | | | | | +--------+---------+ + + + documented as of this encounter Visit Diagnoses Not on filedocumented in this encounter"
--- OUTSIDE RECORDS SUMMARY | ~2019-04-07 | XMS | Clinical Summary ---
Demographics + + + | Address | [address] | | | [place] [address] | + + + | Home Phone | | + + + | Preferred Language | Unknown | + + + | Marital Status | | + + + | Alevism Affiliation | 1041 | + + + | Race | Unknown | + + + | Ethnic Group | Unknown | + + + Author + + + | Author | [employer] (Historical as of | | | 12-09-18) | + + + | Organization | [facility] [employer] [facility] (Historical as of | | | 12-09-18) | + + + | Address | Unknown | + + + | Phone | Unavailable | + + + Support + + + + + | Name | Relationship | Address | Phone | + + + + + | Halina Hankins | ECON | [address] | | | | [place] | | | | | [address] | | + + + + + | Halina Robertson | ECON | Unknown | | + + + + + | Jyotsna Delcid | ECON | Unknown | | + + + + + | Reinier Gray | ECON | Unknown | | + + + + + | Yasmine Knox | ECON | Unknown | | + + + + + Care Team Providers + +------+ + | Care Bridges Supervisor Name | Role | Phone | + +------+ + | Yue Mcguire PA-C | PP | | + +------+ + Allergies + + + + + + | Active Allergy | Reactions | Severity | Noted | Comments | | | | | Date | | + + + + + + | Penicillins | Swelling, Rash, | High | 04/03/20 | | | | Anaphylaxis, Hives | | 13 | | + + + + + + Current Medications + + +--------+---------+------+------+-------+ | Prescription | Sig. | Disp. | Refills | Star | End | Statu | | | | | | t | Date | s | | | | | | Date | | | + + +--------+---------+------+------+-------+ | insulin glargine | Inject 24 Units into | | | | | Activ | | (LANTUS) 100 UNIT/ML | the skin nightly. | | | | | e | | injection | | | | | | | + + +--------+---------+------+------+-------+ | insulin aspart | Inject 10 Units into | | | | | Activ | | (NOVOLOG) 100 | the skin 2 (two) | | | | | e | | UNIT/ML injection | times daily before | | | | | | | | meals. | | | | | | + + +--------+---------+------+------+-------+ | lisinopril | Take 40 mg by mouth | | | | | Activ | | (PRINIVIL,ZESTRIL) | daily. | | | | | e | | 40 MG tablet | | | | | | | + + +--------+---------+------+------+-------+ | fenofibrate 160 MG | Take 160 mg by mouth | | | | | Activ | | tablet | nightly. | | | | | e | + + +--------+---------+------+------+-------+ | sitagliptan | Take 100 mg by mouth | | | | | Activ | | (JANUVIA) 100 MG | daily. Indications: | | | | | e | | tabletIndications: | Type 2 Diabetes | | | | | | | Type 2 Diabetes | | | | | | | | Mellitus | | | | | | | + + +--------+---------+------+------+-------+ | aspirin 81 MG EC | Take 81 mg by mouth | | | | | Activ | | tablet | daily. | | | | | e | + + +--------+---------+------+------+-------+ | nitroGLYCERIN | Place 0.4 mg under | | | | | Activ | | (NITROSTAT) 0.4 MG | the tongue every 5 | | | | | e | | SL tablet | (five) minutes as | | | | | | | | needed. | | | | | | + + +--------+---------+------+------+-------+ | rosuvastatin | Take 20 mg by mouth | | | | | Activ | | (CRESTOR) 20 MG | nightly. | | | | | e | | tablet | | | | | | | + + +--------+---------+------+------+-------+ | metoprolol | Take 100 mg by mouth | | | | | Activ | | (TOPROL-XL) 100 MG | daily. | | | | | e | | 24 hr tablet | | | | | | | + + +--------+---------+------+------+-------+ | amLODIPine | Take 5 mg by mouth | | | | | Activ | | (NORVASC) 5 MG | daily. | | | | | e | | tablet | | | | | | | + + +--------+---------+------+------+-------+ | loperamide | Take 2 mg by mouth | | | | | Activ | | (IMODIUM) 2 MG | as needed for | | | | | e | | capsule | Diarrhea. | | | | | | + + +--------+---------+------+------+-------+ | betamethasone | Apply 15 mg | | | | | Activ | | valerate (VALISONE) | topically daily. | | | | | e | | 0.1 % | | | | | | | | creamIndications: to | | | | | | | | patches on elbow | | | | | | | | and knees | | | | | | | + + +--------+---------+------+------+-------+ | betamethasone | Apply 60 mLs | | | | | Activ | | valerate (VALISONE) | topically 2 (two) | | | | | e | | 0.1 % | times daily. | | | | | | | lotionIndications: | | | | | | | | to scalp | | | | | | | + + +--------+---------+------+------+-------+ | Apremilast (OTEZLA | Take 30 mg by mouth | | | | | Activ | | PO)Indications: | 2 (two) times daily. | | | | | e | | titrate to 30 mg tab | | | | | | | | BID | | | | | | | + + +--------+---------+------+------+-------+ | fluticasone | 1 spray by Each Nare | | | | | Activ | | (FLONASE) 50 MCG/ACT | route daily as | | | | | e | | nasal | needed for Rhinitis. | | | | | | + + +--------+---------+------+------+-------+ | XARELTO 20 MG | take 1 tablet by | 30 | 11 | 05/3 | | Activ | | tablet | mouth once daily | tablet | | 0/20 | | e | | | WITH DINNER | | | 18 | | | + + +--------+---------+------+------+-------+ | levofloxacin | | | | 05/2 | | Activ | | (LEVAQUIN) 750 MG | | | | 3/20 | | e | | tablet | | | | 18 | | | + + +--------+---------+------+------+-------+ | | | | | 06/0 | | Activ | | HYDROcodone-acetamin | | | | 1/20 | | e | | ophen (NORCO) 5-325 | | | | 18 | | | | MG per tablet | | | | | | | + + +--------+---------+------+------+-------+ | doxazosin | | | | 05/3 | | Activ | | (CARDURA) 2 MG | | | | 1/20 | | e | | tablet | | | | 18 | | | + + +--------+---------+------+------+-------+ Active Problems + + + | Problem | Noted Date | + + + | Infection due to Streptococcus pyogenes | 09/15/2017 | + + + | Streptococcal bacteremia | 09/15/2017 | + + + | Endocarditis--suspected bacterial | 09/15/2017 | + + + | Anticoagulated--with xarelto | 09/15/2017 | + + + | Psoriasis | 09/15/2017 | + + + | Paroxysmal atrial fibrillation (HCC) | 08/12/2016 | + + + | Essential hypertension with goal blood pressure less than 130/85 | 08/12/2016 | + + + | Hyperlipidemia | 11/15/2013 | + + + | A-fib | 04/03/2013 | + + + | CAD (coronary artery disease) | 04/03/2013 | + + + | HTN (hypertension) | 04/03/2013 | + + + | DM (diabetes mellitus) | 04/03/2013 | + + + Family History + + +------+ + | Medical History | Relation | Name | Comments | + + +------+ + | Diabetes type II | Brother | | | + + +------+ + | Stroke | Brother | | | + + +------+ + | Heart disease | Father | | | + + +------+ + | Heart disease | Mother | | | + + +------+ + | Diabetes type II | Sister | | | + + +------+ + + +------+ + + | Relation | Name | Status | Comments | + +------+ + + | Brother | | Alive | on dialysis | + +------+ + + | Father | | | | + +------+ + + | Mother | | | | + +------+ + + | Sister | | Alive | | + +------+ + + Social History + + + +--------+ + | Tobacco Use | Types | Packs/Day | Years | Date | | | | | Used | | + + + +--------+ + | Former Smoker | Cigarettes | | | Quit: 04/03/2002 | + + + +--------+ + + +------+---+ + | Smokeless Tobacco: | Chew | | Quit: | | Former User | | | 12/03/19 | | | | | 13 | + +------+---+ + + + +---------+ + | Alcohol Use | Drinks/We | oz/Week | Comments | | | ek | | | + + +---------+ + | No | | | | + + +---------+ + + + + | Sex Assigned at | Date Recorded | | | | + + + | Not on file | | + + + Last Filed Vital Signs + + + + | Vital Sign | Reading | Time Taken | + + + + | Blood Pressure | 147/80 | 09/17/2017 7:42 AM PDT | + + + + | Pulse | 79 | 09/17/2017 7:42 AM PDT | + + + + | Temperature | 36.6 C (97.8 F) | 09/17/2017 7:42 AM PDT | + + + + | Respiratory Rate | 16 | 09/17/2017 7:42 AM PDT | + + + + | Oxygen Saturation | 99% | 09/17/2017 7:42 AM PDT | + + + + | Inhaled Oxygen | - | - | | Concentration | | | + + + + | Weight | 87.4 kg (192 lb 10.9 | 09/17/2017 3:43 AM PDT | | | oz) | | + + + + | Height | 180.3 cm (5' 10.98") | 09/14/2017 5:15 PM PDT | + + + + | Body Mass Index | 26.89 | 09/17/2017 3:43 AM PDT | + + + + Plan of Treatment + + + + + | Health Maintenance | Due Date | Last Done | Comments | + + + + + | Diabetic Eye Exam | | | | | | 6 | | | + + + + + | Diabetic Foot Exam | | | | | | 6 | | | + + + + + | Microalbumin | | | | | Screening | 6 | | | + + + + + | Vaccine: | | | | | Dtap/Tdap/Td (1 - | 5 | | | | Tdap) | | | | + + + + + | Colon Cancer | | | | | Screening | 6 | | | | (Colonoscopy) | | | | + + + + + | Vaccine: Zoster (1 | | | | | of 2) | 6 | | | + + + + + | Hemoglobin A1c | | 09/16/2017 | | | | 8 | | | + + + + + | Vaccine: Influenza | | 01/03/2018, 03/02/2017 | | | (#1) | 9 | | | + + + + + | Vaccine: | Completed | 10/16/2010 | | | Pneumococcal 19-64 | | | | | (PPSV23 only) Medium | | | | | Risk | | | | + + + + + Results Not on filefrom Last 3 Months Insurance + +--------+ +------+-------+---------+ | Payer | Benefi | Subscriber | Type | Phone | Address | | | t Plan | ID | | | | | | / | | | | | | | Group | | | | | + +--------+ +------+-------+---------+ | [employer] | FC-NET | [id number] | | | | | | WORK | | | | | + +--------+ +------+-------+---------+ | [facility] | YELLOW | [id number] | | | | | PLANS | [place] | | | | | + +--------+ +------+-------+---------+ + +--------+ +--------+ + + | Guarantor Name | Accoun | Relation to | Date | Phone | Billing Address | | | t Type | Patient | of | | | | | | | | | | + +--------+ +--------+ + + | LIVE ROBERTSON | Person | Self [birth year] | Work: | [address] 1974 | | | yuri/Lefty | | 1965 | [phone] | [place] | | | [place] | | | [address]: | [address] | | | | | | | | | | | | | [phone] | | | | | | [phone] | | + +--------+ +--------+ + +
--- OUTSIDE RECORDS SUMMARY | ~2019-04-07 | XMS | Encounter Summary ---
Demographics + + + | Address | [address] | | | [place] [address] | + + + | Home Phone [...] + + + | Author | [facility] | | | and [place] | + + + | Organization | [facility] | | | [...] Providers + +------+ + | Care Software Applications Engineer Name | Role | Phone | + +------+ + | Janusz Davis MD | PCP | | + +------+ + Reason for Referral Diagnostic/Screening (Routine) +--------+--------+ + + + + | Status | Reason | Specialty | Diagnoses / | Referred By | Referred To | | | | | Procedures | Contact | Contact | +--------+--------+ + + + + | Closed | | Radiology | Diagnoses | Adrian, | [facility] | | | | | CVD | Chuckalyce | [address] | | | | | (cardiovascu | MD [address] | [address] | | | | | lar disease) | [address] | [place], [place] | | | | | Procedures | [address] | [address] | | | | | ECHO | [place], [place] | Phone: | | | | | Complete | [address] | [phone] | | | | | | Phone: | Fax: | | | | | | [phone] | [phone] | | | | | | Fax: | | | | | | | [phone] | | +--------+--------+ + + + + Reason for Visit Diagnostic/Screening (Routine) +--------+--------+ + + + + | Status | Reason | Specialty | Diagnoses / | Referred By | Referred To | | | | | Procedures | Contact | Contact | +--------+--------+ + + + + | Closed | | Radiology | Diagnoses | Ravnader, | [facility] | | | | | CVD | Juan | [address] | | | | | (cardiovascu | MD [address] | [address] | | | | | lar disease) | [address] | [place], [place] | | | | | Procedures | [address] | [address] | | | | | ECHO | [place], [place] | Phone: | | | | | Complete | [address] | [phone] | | | | | | Phone: | Fax: | | | | | | [phone] | [phone] | | | | | | Fax: | | | | | | | [phone] | | +--------+--------+ + + + + Encounter Details +--------+ + + + + | Date | Type | Department | Care Team | Description | +--------+ + + + + | 04/03/ | Hospital | [facility] | Dilipnader, | CVD (cardiovascular | | 2019 | Encounter | [facility] | Juan Price, | disease) | | | | [address] | MD [address] | | | | | [address] [place], [place] | [address] [place], | | | | | [address] | [place] [address] | | | | | [phone] | [phone] | | | | | | | [...] + + documented as of this encounter Medications at Time of Discharge [...] + + + +---------+ + + | metFORMIN | Take 500 mg by mouth | | 0 | | | | (GLUCOPHAGE) 500 mg | every evening. | | | | | | tablet [...] | Visit | | MD [address] | | | | | | [address] [place] | | | | | | [place] [address] | | | | | | [phone] | | | | | | | [...] documented in this encounter Results ECHO Complete (04/03/2019 2:54 PM PST) + +--------+ + + + | Component [...] [facility] | | | Peak D Ajyy | | | | | + +--------+ [...] + | Diagnosis | + + | CVD (cardiovascular disease) Unspecified cardiovascular disease | + + documented in this encounter
--- OUTSIDE RECORDS SUMMARY | ~2019-04-07 | XMS | Encounter Summary ---
Demographics + + + | Address | [address] | | | [place] [address] | + + + | Home Phone | | + + + | Preferred Language | Unknown | + + + | Marital Status | Legally | + + + | Faith Affiliation | 1041 | + + + | Race | Unknown | + + + | Ethnic Group | Unknown | + + + Author + + + | Author | [facility] | | | and [place] | + + + | Organization | [facility] | | | [...] Team Providers + +------+ + | Care Bulk Plant Agent Name | Role | Phone | [...] NEPHROLOGY [address] | MD [address] | disease) stage 3, | | | | [address] | [address] [place] | GFR 30-59 ml/min | | | | [place], [place] | [place] [address] | ([facility]) (Primary Dx) | | | | [address] | [phone] | | | | | [phone] | | | +--------+ + + + [...] Progress Notes Yvonne Hahn RN - 01/24/2019 9:20 AM PDTLabs for upcoming nephrology appointment sent to: [...] | | | | | [place] [address] | | | | | | [phone] | | | | | | | | +--------+---------+ + + + documented as of this encounter Visit Diagnoses + + | Diagnosis | + + | CKD (chronic kidney disease) stage 3, GFR 30-59 ml/min ([facility]) - Primary Chronic kidney | | disease, Stage III (moderate) | + + documented in this encounter"
--- OUTSIDE RECORDS SUMMARY | ~2019-04-07 | XMS | Encounter Summary ---
Demographics + + + | Address | [address] | | | [place] [address] | + + + | Home Phone | | + + + | Preferred Language | Unknown | + + + | Marital Status | Legally | + + + | Adventism Affiliation | 1041 | + + + | Race | Unknown | + + + | Ethnic Group | Unknown | + + + Author + + + | Author | [facility] | | | and [place] | + + + | Organization | [facility] | | | [...] Team Providers + +------+ + | Care Photographer News Name | Role | Phone | + [...] | | | injury) | [address] | [place] [address] | | | | | (HCC) | [place] | [address] [place] | | | | | Procedures | [address] | [place], [place] | | | | | DE OFFICE | [facility] | [address] Phone: | | | | | OUTPATIENT | [place] | [phone] | | | | | VISIT 25 | [address] | Fax: | | | | | MINUTES | Phone: | [phone] | | | | | | [phone] | | | | | | | Fax: | | | | | | | [phone] | | +--------+--------+ + + + + Encounter Details +--------+---------+ + + + | Date | Type | Department | Care Team | Description | +--------+---------+ + + + | 08/08/ | Office | [facility] | Shea Pedraza W, | CKD (chronic kidney | | 2019 | Visit | NEPHROLOGY [address] | disease) stage 3, | | | | [address] | [address] [place] | GFR 30-59 ml/min | | | | [place], [place] | [place] [address] | ([facility]) (Primary Dx); | | | | [address] | [phone] | Nephrotic range | | | | [phone] | | proteinuria; | | | | | | Essential | | | | | | hypertension; Type 2 | | | | | | DM with CKD stage 3 | | | | | | and hypertension | | | | | | ([facility]); Vitamin D | | | | | [...] Pt reports hypertension. 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 No pertinent surgical history. [...] Yellow Yellow, Light Yellow Final Clarity, UA, [facility] 08/08/2018 Clear Final Glucose, UA, [facility] 08/08/2018 250 mg/dL* Negative Final Bilirubin, UA, [facility] 08/08/2018 Negative Negative Final Ketones, UA, [facility] 08/08/2018 Negative Negative, 100 mg/dL Final Specific [place], UA, [facility] 08/08/2018 1.025 1.001 - 1.030 Final Blood, UA, [facility] 08/08/2018 Moderate* Negative Final pH, UA, [facility] 08/08/2018 6.0 5.0, 6.0, 7.0, 8.0, 5.5, 6.5, 7.5 Final Protein, UA, [facility] 08/08/2018 >=300 mg/dL* Negative Final Urobilinogen, UA, [facility] 08/08/2018 0.2 0.2, Negative, Normal, < 0.2 mg/dL, 1 mg/dL, < 0. 2 E.U./dl, 1.0 E.U./dL, 0.2 mg/dL Final Nitrite, UA, [facility] 08/08/2018 Negative Negative Final Leukocyte Esterase, UA, [facility] 08/08/2018 Negative Negative Final Abstract on [...] RBC, External 07/03/2018 0 Final UA Specific [place], External 07/03/2018 1.021 Final UA Leukocyte Esterase, [...] 3, GFR 30-59 ml/min ([facility]) N18.3 585.3 Proteinuric CKD , likely due [...] DM with CKD stage 3 and hypertension ([facility]) E11.22 250.40 Lab Results Component Value Date [...] | | | | | [address] [facility] | | | | | | [place] [address] | | | | | | [phone] | | | | | | | [...] 1.001 - 1.030 | | | | [place], | | | | | | UA, [...] 3, GFR 30-59 ml/min ([facility]) - Primary Chronic kidney | | disease, [...]
--- OUTSIDE RECORDS SUMMARY | ~2019-04-07 | XMS | Encounter Summary ---
Demographics + + + | Address | [address] | | | [place] [address] | + + + | Home Phone [...] Team Providers + +------+ + | Care Performing Arts Technicians Name | Role | Phone | + [...] | NEPHROLOGY [address] | [address] | | | | | [address] | [address] [place] | | | | | [place], [place] | [place] [address] | | | | | [address] | [phone] | | | | | [phone] | | | +--------+ + + + [...] | | | | | [place] [address] | | | | | | [phone] | | | | | | | [...]
--- OUTSIDE RECORDS SUMMARY | ~2019-04-07 | XMS | Clinical Summary ---
Demographics + + + | Address | [address] | | | [place] [address] | + + + | Home Phone | | + + + | Preferred Language | Unknown | + + + | Marital Status | | + + + | Rastafari Affiliation | 1041 | + + + | Race | Unknown | + + + | Ethnic Group | Unknown | + + + Author + + + | Author | [email or web address] (Historical as of | | | 12-09-18) | + + + | Organization | [facility] [employer] (Historical as of | | | 12-09-18) [...] [place] | | | | | [address] | | + + + + + [...] Team Providers + +------+ + | Care Circuit Court Magistrate Name | Role | Phone | + [...] +------+-------+---------+ | [employer] | FC-NET | [id number] | | | | | | WORK | | | | | + +--------+ +------+-------+---------+ | [facility] | YELLOW | [id number] | | | | | PLANS | [...] | | yuri/Lefty | | 1965 | [phone] | [place] | | | [place] | | | [address]: | [address] | | | | | | | | | | | | | [phone] | | | | | | [address] | | + +--------+ +--------+ + +
--- OUTSIDE RECORDS SUMMARY | ~2019-04-07 | XMS | Encounter Summary ---
Demographics + + + | Address | [address] | | | [place] [address] | + + + | Home Phone [...] Team Providers + +------+ + | Care Pin Chaser Name | Role | Phone | + [...] | NEPHROLOGY [address] | [address] | | | | | [address] | [address] [place] | | | | | [place], [place] | [place] [address] | | | | | [address] | [phone] | | | | | [phone] | | | +--------+ + + + [...] | | | | | | [place] [address] | | | | | | [phone] | | | | | | | | +--------+---------+ + + + documented as of this encounter Visit Diagnoses Not on filedocumented in this encounter"
--- OUTSIDE RECORDS SUMMARY | ~2019-04-07 | XMS | Clinical Summary ---
Demographics + + + | Address | [address] | | | [place] [address] | + + + | Home Phone [...] Team Providers + +------+ + | Care Wooden Box Maker Name | Role | Phone | [...] | | | anoth | | | [id number] to 220 Give | | | | | er | | | 4 to 260 | | | | | clini | | | Give 6 [id number] | | | | | bibi) | [...] whether | | | | | | otoe-missouria or | | | | | | [...] insulin | | | | | | ([facility]); | | | | | | Hyperlipidemia, | | | | | | unspecified | | | | | | hyperlipidemia type; | | | | | | JAMESON (acute kidney | | | | | | injury) ([facility]); CKD | | | | | | (chronic kidney | | | | | | disease) stage 3, | | | | | | GFR 30-59 ml/min | | | | | | ([facility]); Essential | | | | [...] (moderate) | | | | | | ([facility]); Hyperkalemia; | | | | [...] ml/min | | | | | | ([facility]) (Primary Dx) | +--------+ + + + [...] | | | | | [place] [address] | | | | | | [phone] | | | | | | | [...] | | | /[id number] | | at [facility] | | | | | | 12 | | [facility] | | | | | | [...] | | | /[id number] | | at [facility] | | | | | | 97 | | [facility] | | | | | | [...] + +--------+ + + + | FAM MCKENO, | Routin | 02/15/2019 | | Results [...] | | | RN: | | | [id number] | | | [id number] | | | riteri | | | [...] | | | St. | | | [place] | | | y | | | [...] | | | St. | | | [place] | | | y H. | | [...] | | | St. | | | [place] | | | y H. | | [...] | | | St. | | | [place] | | | y H. | | [...] | | | St. | | | [place] | | | y H. | | [...] | | | St. | | | [place] | | | y H. | | [...] | | e of | | | otoe-missouria | | | | | | dasilva [...] 1.012 | | EXTERNAL | | | [place], | | | LAB | | | [...] | | | POC | performed at [facility];[address] | | LABORATORY | | | | [address];[place], [place] | | | | | | [address] | | | | + + + + + + + + | Specimen | + + | | + + + + + + + | Performing | Address | City/State/Zipcode | Phone Number | | Organization | | | | + + + + + | [facility] | [address] | [place] [address] | [phone] | + + + + + Protime [...] | INR | 2.8Comment: REFERENCE | | [facility] | | | | RANGE:0.9 - 1.2 [...] | | | | | performed at [facility];[address] | | | | | | [address];[place] | | | | | | [address] | | | | + + + + + + + + | Specimen | + + | Blood | + + + + + + + | Performing | Address | City/State/Zipcode | Phone Number | | Organization | | | | + + + + + | [facility] | [address] | [place] [address] | [phone] | + + + + + CBC [...] | | | Absolute | performed at [facility], [address] | [address] | LABORATORY | | | | [address], | | | | | | [place] [address] | | | | + + + + + + + + | Specimen | + + | Blood | + + + + + + + | Performing | Address | City/State/Zipcode | Phone Number | | Organization | | | | + + + + + | [facility] | [address] [facility] | [place] [address] | [phone] | + + + + + Magnesium [...] KR | | | | performed at [facility], [address] | | LABORATORY | | | | [address], | | | | | | [place] [address] | | | | + + + + + + + + | Specimen | + + | Blood | + + + + + + + | Performing | Address | City/State/Zipcode | Phone Number | | Organization | | | | + + + + + | [facility] | [address] | [place] [address] | [phone] | + + + + + Basic [...] 40 (L)Comment: GFR <60: | >60 | [facility] | | | GFR | CHRONIC KIDNEY [...] | | | | | | MDRD IDCT traceable | | | | | | equation.Testing | | | | | | performed at [facility], [address] | | | | | | [facility], | | | | | | [place] [address] | | | | + + + + + + + + | Specimen | + + | Blood | + + + + + + + | Performing | Address | City/State/Zipcode | Phone Number | | Organization | | | | + + + + + | [facility] | [address] | [place] [address] | [phone] | + + + + + Clostridium difficile DNA amplified (02/25/2019 5:42 PM PST) + + + + + + | Component | Value | Ref Range | Performed | Pathologist | | | | | At | Signature | + + + + + + | C. Diff | NEGATIVE | CLNEG | [facility] | | | Toxin A/B, | | | LABORATORY | | | NAAT | | | | | + + + + + + | C Diff | 027 NAP1 BI PRESUMPTIVE | | [facility] | | | Strain | NEGATIVEComment: | | LABORATORY | | | [id number] | Detection of 027 NAP1 BI | [...] | | | | | performed at [facility];[address] | | | | | | [address];[place], [place] | | | | | | [address] | | | | + + + + + + + + | Specimen | + + | Stool - Stool | | specimen (specimen) | + + + + + + + | Performing | Address | City/State/Zipcode | Phone Number | | Organization | | | | + + + + + | [facility] | [address] | [place] [address] | [phone] | + + + + + Clostridium [...] | | | | | performed at [facility];[address] | | | | | | [address];[place] | | | | | | [address] | | | | + + + + + + + + | Specimen | + + | | + + + + + + + | Performing | Address | City/State/Zipcode | Phone Number | | Organization | | | | + + + + + | [facility] | [address] | [place] [address] | [phone] | + + + + + Hepatic [...] [facility] | | | | performed at [facility], [address] | | LABORATORY | | | | [address], | | | | | | [place] [address] | | | | + + + + + + + + | Specimen | + + | Blood | + + + + + + + | Performing | Address | City/State/Zipcode | Phone Number | | Organization | | | | + + + + + | [facility] | [address] | [place] [address] | [phone] | + + + + + PTT [...] at | | | | | | [facility];[address];[place] [address] | | | | + + + + + + + + | Specimen | + + | Blood | + + + + + + + | Performing | Address | City/State/Zipcode | Phone Number | | Organization | | | | + + + + + | [facility] | [address] | [place] [address] | [phone] | + + + + + Potassium [...] [facility] | | | | performed at [facility];[address] | mmol/L | LABORATORY | | | | [facility];[place], [place] | | | | | | [address] | | | | + + + + + + + + | Specimen | + + | Blood | + + + + + + + | Performing | Address | City/State/Zipcode | Phone Number | | Organization | | | | + + + + + | [facility] | [address] | [place] [address] | [phone] | + + + + + ECHO [...] | | | | | Signed by: Rahda Brasher Zachary | | Sign Date/Time: 02/19/2019 [...] | | | Arterial, | performed at [facility];[address] | | LABORATORY | | | POC | [address];[place], [place] | | | | | | [address] | | | | + + + + + + + + | Specimen | + + | | + + + + + + + | Performing | Address | City/State/Zipcode | Phone Number | | Organization | | | | + + + + + | [facility] | [address] | [place] [address] | [phone] | + + + + + POC [...] | | | | | performed at [facility];[address] | | | | | | [address];[place] | | | | | | [address] | | | | + + + + + + + + | Specimen | + + | | + + + + + + + | Performing | Address | City/State/Zipcode | Phone Number | | Organization | | | | + + + + + | [facility] | [address] | [place] [address] | [phone] | + + + + + Calcium, [...] [facility] | | | | performed at [facility];[address] | | LABORATORY | | | | [address];[place], [place] | | | | | | [address] | | | | + + + + + + + + | Specimen | + + | Blood | + + + + + + + | Performing | Address | City/State/Zipcode | Phone Number | | Organization | | | | + + + + + | [facility] | [address] | [place] [address] | [phone] | + + + + + Fibrinogen (02/15/2019 1:45 PM PDT) + + + + + + | Component | Value | Ref Range | Performed | Pathologist | | | | | At | Signature | + + + + + + | Fibrinogen | 434Comment: Testing | 200 - 450 mg/dL | [facility] | | | | performed at [facility];[address] | | LABORATORY | | | | [address];[place] | | | | | | [address] | | | | + + + + + + + + | Specimen | + + | Blood | + + + + + + + | Performing | Address | City/State/Zipcode | Phone Number | | Organization | | | | + + + + + | [facility] | [address] | [place] [address] | [phone] | + + + + + Hemoglobin [...] HbA1c | 4.0 - 6.0 % | [facility] | | | A1c | method is [...] | 166 (H)Comment: | <154 mg/dL | [facility] | | | Average | Estimated Average | | LABORATORY | | | Glucose | Glucose calculated from | | | | | | hemoglobin A1c by use of | | | | | | the ADArecommended | | | | | | formula.Testing | | | | | | performed at [facility], [address] | | | | | | [facility], | | | | | | [place] [address] | | | | + + + + + + + + | Specimen | + + | Blood | + + + + + + + | Performing | Address | City/State/Zipcode | Phone Number | | Organization | | | | + + + + + | [facility] | [address] | [place] [address] | [phone] | + + + + + POC [...] (L)Comment: Testing | 13.7 - 16.7 | [facility] | | | POC | performed at [facility];[address] | g/dL | LABORATORY | | | | [address];[place], [place] | | | | | | [address] | | | | + + + + + + + + | Specimen | + + | | + + + + + + + | Performing | Address | City/State/Zipcode | Phone Number | | Organization | | | | + + + + + | [facility] | [address] | [place] [address] | [phone] | + + + + + ECG [...] | | | Arterial, | performed at [facility];[address] | | LABORATORY | | | POC | [address];[place], [place] | | | | | | [address] | | | | + + + + + + + + | Specimen | + + | | + + + + + + + | Performing | Address | City/State/Zipcode | Phone Number | | Organization | | | | + + + + + | [facility] | [address] | [place] [address] | [phone] | + + + + + PAC [...] | | at this time Person recording: clinical laboratory scientist Performed by: Ed Elmore | | | [...] at this time | | Person recording: clinical laboratory scientist | | Performed by: Ed Elmore MD [...] - 02/15/2019 9:28 AM PDT Anesthesia Airway Qruraxezp05/24/2019 | | 7:22Preprocedure check: patient identified, airway [...] | | Name MARCELO MANCINI Room Number 45587 | | | Patient Number [id number] Date of Study | | | 02/15/2019 Visit Number [id number] Referring | | | Physician LUISANA ALCALA Accession Number [id number] | | | Hand Rug Braider Date of 1965 Interpreting | | | Physician Ed Elmore Age 53 year(s) | | | Nurse Gender Male Stress | | | Green House Manager Procedure Type of Study SHALA procedure:TRANSESOPHAGEAL(SHALA) | [...] Mild | | | MR. Mild AI. Xayh-pf-ejdzxfkc TR. Mild PI. Zoeqfyut-do-dgheli PAH. | | | Bilateral pleural effusions [...] = 54mmHg | | | (consistent with efznlbqx-dq-flujqt pulmonary arterial | | | hypertension--reading was consistent with direct PASP measurement via | | | [place]-Roland catheter). Pulmonic Valve Peak Velocity: 51.33 cm/s [...] = 54mmHg | | | (consistent with pfnrnfwb-vj-tjcsmj pulmonary arterial | | | hypertension--reading was consistent with direct PASP measurement via | | | [place]-Roland catheter). | | | | | | [...] Rad Results In - 02/15/2019 2:10 PM [facility] Transesophageal Echocardiography Report | | (SHALA) Demographics Patient Name MARCELO MANCINI Room Number 12558 | | Patient Number [id number] Date of Study 02/15/2019 Visit Number | | [id number] Referring Physician LUISANA ALCALA Accession Number [id number] | | Hand Rug Braider Date of 1965 Interpreting Physician Ed Elmore | | Age 53 year(s) Nurse Gender Male Stress | | TechnicianProcedureType of Study SHALA procedure:TRANSESOPHAGEAL(SHALA) - | | PERIOPERATIVE.Procedure DateDate: 02/15/2019 Start: 07:41 AMStudy [facility] | | Quality: Adequate visualizationPatient Status: RoutineHeight: 70.87 inches Weight: | | 208.12 pounds BSA: 2.14 m^2 BMI: 29.14 kg/m^2Rhythm: Normal Sinus Rhythm HR: 75 bpm BP: | | 110/70 mmHg Conclusions Summary Severely depressed baseline LV global systolic function | | with multiple RWMAs as documented below. LVEF = 25-30%. Mild MR. Mild AI. | | Qwhq-rg-fkksvoml TR. Mild PI. Ptgssqvp-ub-jecchz PAH. Bilateral pleural effusions | | (drained [...] tricuspid regurgitation. RVSP = 54mmHg (consistent with pqbzobin-uz-amywqi | | pulmonary arterial hypertension--reading was consistent with direct PASP measurement | | via [place]-Roland catheter). Pulmonic Valve Peak Velocity: 51.33 cm/s [...] RVSP = 54mmHg | | (consistent with krivitrq-oh-dysomf pulmonary arterial | | hypertension--reading was consistent with direct PASP measurement via | | [place]-Roland catheter). | | | | Pulmonic Valve [...] - 02/15/2019 7:14 AM PDT Arterial Line Ezriwcjbd32/24/2019 | | 7:14Indication: continuous blood pressure monitoring [...] [facility] | | | | performed at [facility], [address] | | LABORATORY | | | | [address], | | | | | | [place] [address] | | | | + + + + + + + + | Specimen | + + | | + + + + + + + | Performing | Address | City/State/Zipcode | Phone Number | | Organization | | | | + + + + + | [facility] | [address] | [place] [address] | [phone] | + + + + + Renal [...] | | | | | performed at [facility], [address] | | | | | | [address], | | | | | | [place] [address] | | | | + + + + + + + + | Specimen | + + | Blood | + + + + + + + | Performing | Address | City/State/Zipcode | Phone Number | | Organization | | | | + + + + + | [facility] | [address] | [place] [address] | [phone] | + + + + + Red [...] | [facility] | | | COMMENT | [facility];[address] | | LABORATORY | | | | [address];[place] [address] | | | | + + + + + + + + | Specimen | + + | | + + + + + + + | Performing | Address | City/State/Zipcode | Phone Number | | Organization | | | | + + + + + | [facility] | [address] | [place] [address] | [phone] | + + + + + Type [...] + + + | UNIT # | [id number] | | [facility] | | | | [...] + + + | UNIT # | [id number] | | [facility] | | | | [...] + + + | UNIT # | [id number] | | [facility] | | | | [...] | | | RESULT | performed at [facility];[address] | | LABORATORY | | | | [address];[place], [place] | | | | | | [address] | | | | + + + + + + | UNIT # | [id number] | | [facility] | | | | [...] | + + + + + | [facility] | [address] | [place] [address] | [phone] | + + + + + Troponin [...] 14.737 ()Comment: | 0.00 - 0.04 | [facility] | | | | 0.04 ng/mL or [...] @ | | | | | | 6829 DLSTesting | | | | | | performed at [facility];[address] | | | | | | [address];[place], [place] | | | | | | [address] | | | | + + + + + + + + | Specimen | + + | Blood | + + + + + + + | Performing | Address | City/State/Zipcode | Phone Number | | Organization | | | | + + + + + | [facility] | [address] | [place] [address] | [phone] | + + + + + XR [...] [facility] | | | | performed at [facility] | | LABORATORY | | | | [address];[place] | | | | | | [address] | | | | + + + + + + + + | Specimen | + + | Tissue - Both | | anterior nares (body | | structure) | + + + + + + + | Performing | Address | City/State/Zipcode | Phone Number | | Organization | | | | + + + + + | [facility] | [address] | [place] [address] | [phone] | + + + + + Phosphorus (02/13/2019 7:42 AM PDT) + + + + + + | Component | Value | Ref Range | Performed | Pathologist | | | | | At | Signature | + + + + + + | Phosphorus | 4.1Comment: Testing | 2.3 - 4.8 mg/dL | [facility] | | | | performed at [facility];[address] | | LABORATORY | | | | [address];[place], [place] | | | | | | [address] | | | | + + + + + + + + | Specimen | + + | Blood | + + + + + + + | Performing | Address | City/State/Zipcode | Phone Number | | Organization | | | | + + + + + | [facility] | [address] | [place] [address] | [phone] | + + + + + Urinalysis [...] - 1.030 | [facility] | | | [place], | | | LABORATORY | | | [...] | | | CRYSTALS | performed at [facility];[address] | | LABORATORY | | | | [address];[place] | | | | | | [address] | | | | + + + [...] | + + + + + | [facility] | [address] | [place] [address] | [phone] | + + + + + Urea Nitrogen, Urine, Random (02/12/2019 3:05 PM PDT) + + + + + + | Component | Value | Ref Range | Performed | Pathologist | | | | | At | Signature | + + + + + + | Urea | 570.0Comment: NO NORMAL | mg/dL | [facility] | | | Nitrogen, | RANGE ESTABLISHEDTesting | | LABORATORY | | | Urine | performed at [facility], [address] | | | | | [address], | | | | | | [place] [address] | | | | + + + [...] | + + + + + | [facility] | [address] | [place] [address] | [phone] | + + + + + Eosinophil [...] LABORATORY | | | | performed at [facility], [address] | | | | | | [facility], | | | | | | [place] [address] | | | | + + + [...] | + + + + + | [facility] | [address] | [place] [address] | [phone] | + + + + + Protein/Creatinine Ratio, Urine (02/12/2019 3:05 PM PDT) + + + + + + | Component | Value | Ref Range | Performed | Pathologist | | | | | At | Signature | + + + + + + | PRO/CREA | 1.364Comment: Testing | | [facility] | | | RATIO,URINE | performed at [facility], [address] | | LABORATORY | | | | [address], | | | | | | [place] [address] | | | | + + + + + + + + | Specimen | + + | | + + + + + + + | Performing | Address | City/State/Zipcode | Phone Number | | Organization | | | | + + + + + | [facility] | [address] | [place] [address] | [phone] | + + + + + Sodium, Urine, Random (02/12/2019 3:05 PM PDT) + + + + + + | Component | Value | Ref Range | Performed | Pathologist | | | | | At | Signature | + + + + + + | Sodium, | 27Comment: NO NORMAL | mmol/L | [facility] | | | Random | RANGE ESTABLISHEDTesting | | LABORATORY | | | urine | performed at [facility], [address] | | | | | [address], | | | | | | [place] [address] | | | | + + + [...] | + + + + + | [facility] | [address] | [place] [address] | [phone] | + + + + + Protein, [...] LABORATORY | | | | performed at [facility], [address] | | | | | [address], | | | | | | [place] [address] | | | | + + + + + + + + | Specimen | + + | | + + + + + + + | Performing | Address | City/State/Zipcode | Phone Number | | Organization | | | | + + + + + | [facility] | [address] | [place] [address] | [phone] | + + + + + Creatinine, [...] | | | urine | performed at [facility], [address] | | | | | | [address], | | | | | | [place] [address] | | | | + + + [...] | + + + + + | [facility] | [address] | [place] [address] | [phone] | + + + + + Chloride, [...] | | | CHLORIDE | performed at [facility], [address] | | | | | | [address] [facility], | | | | | | [place] [address] | | | | + + + [...] | + + + + + | [facility] | [address] | [place] [address] | [phone] | + + + + + US [...] [facility] | | | | performed at [facility];[address] | | LABORATORY | | | | [address];[place], [place] | | | | | | [address] | | | | + + + + + + + + | Specimen | + + | Blood | + + + + + + + | Performing | Address | City/State/Zipcode | Phone Number | | Organization | | | | + + + + + | [facility] | [address] [facility] | [place] [address] | [phone] | + + + + + CV [...] | | | Clotting | performed at [facility];[address] | seconds | LABORATORY | | | Time, POC | [address];[place], [place] | | | | | | [address] | | | | + + + + + + + + | Specimen | + + | | + + + + + + + | Performing | Address | City/State/Zipcode | Phone Number | | Organization | | | | + + + + + | [facility] | [address] | [place] [address] | [phone] | + + + + + Lipid [...] | | | Calculated | performed at [facility], [address] | | LABORATORY | | | | [address], | | | | | | [place] [address] | | | | + + + + + + + + | Specimen | + + | Blood | + + + + + + + | Performing | Address | City/State/Zipcode | Phone Number | | Organization | | | | + + + + + | [facility] | [address] | [place] [address] | [phone] | + + + + + TSH (02/11/2019 7:43 AM PDT) + + + + + + | Component | Value | Ref Range | Performed | Pathologist | | | | | At | Signature | + + + + + + | TSH | 0.779Comment: Testing | 0.450 - 5.100 | [facility] | | | | performed at [facility];[address] | uIU/mL | LABORATORY | | | | [address];[place] | | | | | | [address] | | | | + + + + + + + + | Specimen | + + | Blood | + + + + + + + | Performing | Address | City/State/Zipcode | Phone Number | | Organization | | | | + + + + + | [facility] | [address] | [place] [address] | [phone] | + + + + + B Type Natriuretic Peptide (02/11/2019 7:43 AM PDT) + + + + + + | Component | Value | Ref Range | Performed | Pathologist | | | | | At | Signature | + + + + + + | BNP | 406.69 (H)Comment: | 0 - 100 pg/mL | [facility] | | | | Testing performed at | | LABORATORY | | | | [facility] [place] [place];[address] | | | | | | [place] [address] | | | | + + + + + + + + | Specimen | + + | Blood | + + + + + + + | Performing | Address | City/State/Zipcode | Phone Number | | Organization | | | | + + + + + | [facility] | [address] | [place] [address] | [phone] | + + + + + Comprehensive [...] | | | | | performed at [facility], [address] | | | | | [address], | | | | | | [place] [address] | | | | + + + + + + + + | Specimen | + + | Blood | + + + + + + + | Performing | Address | City/State/Zipcode | Phone Number | | Organization | | | | + + + + + | [facility] | [address] | [place] [address] | [phone] | + + + + + from [...] +--------+ +--------+-------+---------+--------+ | [employer]BS | BCBS | [id number] | 09/24/19 | | | PPO | | | OOS | C | 19-Pre | | | | | | PPO | | sent | | | | + +--------+ +--------+-------+---------+--------+ | BCBS | BCBS | [id number] | 09/24/19 | | | PPO | | | OOS | C | 19-Pre | | | | | | PPO | | sent | | | | + +--------+ +--------+-------+---------+--------+ | [facility] | [facility] | [id number] | 05/01/19 | | | Indemn | | SERVICE | YELLOW | | 15-Pre | | | ity | | | HAWK | | sent | | | | + +--------+ +--------+-------+---------+--------+ | [facility] | [facility] | [id number] | 02/11/ | | | Joe | [...] | | al/Lefty | | 1965 | [phone] | NAEL SUGGS | | | glen | | | 2 (Home) | [address] | | | | | | [phone] | | | | | | | 1 (Work) | | + +--------+ +--------+ + + | Joselito Robertson | Person | Self | [birth year] | [address] | | | al/Fam | | 1965 | [phone] | [place] | | | glen | | | 2 (Home) | [address] | + +--------+ +--------+ + + Advance Directives + + + + + | Type | Date Recorded | Patient | Explanation | | | | Library Circulation Assistant | | + + + + + | Power of | | | | | Waterproof Material Folder | | | | + + + [...]
--- OUTSIDE RECORDS SUMMARY | ~2019-04-07 | XMS | Encounter Summary ---
Demographics + + + | Address | [address] | | | [place] [address] | + + + | Home Phone | | + + + | Preferred Language | Unknown | + + + | Marital Status | Legally | + + + | Mormonism Affiliation | 1041 | + + + | Race | Unknown | + + + | Ethnic Group | Unknown | + + + Author + + + | Author | [facility] | | | and [place] | + + + | Organization | [facility] | | [...] Team Providers + +------+ + | Care Cable Installer Name | Role | Phone | + +------+ + PCP | Unavailable | + +------+ + Encounter Details +--------+ + + + + | Date | Type | Department | Care Team | Description | +--------+ + + + + | 12/23/ | Hospital | [facility] | Antoine Naqvi | Unspecified Chest | | 2007 - | Encounter | [facility] | MD [address] | Pain | | | | CARE FLOOR [address] | [address] | | | [address] | | [address] | [place] [address] | | | 2007 | | [place], [place] | [phone] | | | | | [address] | | | | | | [phone] | | | +--------+ + + + [...] [place] | | | | | | [place] [address] | | | | | | [phone] | | | | | | | | +--------+---------+ + + + documented as of this encounter Visit Diagnoses + + | Diagnosis | + + | Chest pain, unspecified | + + documented in this encounter"
--- OUTSIDE RECORDS SUMMARY | ~2019-04-07 | XMS | Encounter Summary ---
Demographics + + + | Address | [address] | | | [place] [address] | + + + | Home Phone [...] + + + | Author | [facility] | | | and [place] | + + + | Organization | [facility] | | [...] Team Providers + +------+ + | Care Chemical Test Engineer Name | Role | Phone | [...] | | Procedures | [address] | [facility], [place] | | | | | [place] | [facility], [place] | [address] Phone: | | | | | &/SENS 1-2 | [address] | [phone] | | | | | NRV CNDJ | Phone: | Fax: | | | | | PRECONF | [phone] | [phone] | | | | | [place]TR[place]DE [place]B | Fax: | | | | | | | [phone] | | | | | | EMG/NCS-pare [...] | 08/12/ | Procedure | [facility] | Elmer Louise | 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) | | | | [place], | [place], [place] | (Primary Dx); Ulnar | | | | [place] [address] | [address] | 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 Elmer Louise MD Fellow, [employer] [place] [employer]. documented in this encounter Plan of Treatment +--------+---------+ + + + | Date | Type | Specialty | Care Team | Description | +--------+---------+ + + + | 06/19/ | Office | Nephrology | Shea Pedraza, | | | 2019 | Visit | | MD Harmony Pendleton [place] | | | | | | [address] [place] | | | | | | [place] [address] | | | | | | [phone] | | | | | | | [...]
--- OUTSIDE RECORDS SUMMARY | ~2019-04-07 | XMS | Encounter Summary ---
Demographics + + + | Address | [address] | | | [place] [address] | + + + | Home Phone | | + + + | Preferred Language | Unknown | + + + | Marital Status | Legally | + + + | Adventism Affiliation | 1041 | + + + | Race | Unknown | + + + | Ethnic Group | Unknown | + + + Author + + + | Author | [facility] | | | and [place] | + + + | Organization | [facility] | | | [...] Team Providers + +------+ + | Care Maintenance Painter Name | Role | Phone | + +------+ + PCP | Unavailable | + +------+ + Reason for Visit Auth/Cert +--------+--------+ + + + + | [...] | | | | | | | [place] or | | | | | | [...] + + | 02/15/ | Anesthesia | [facility] | Ed Elmore MD | | | 2019 | [facility] | [address] | | | | | [address]PER[address] | [place] [address] | | | | | [address] | [phone] | | | | | [place], [place] | | | | | | [address] | | | | | | [phone] | | | +--------+ + + + + Anesthesia Record + + + + + | Procedure Name | Responsible | Anesthesia Start | Anesthesia Stop Time | | | Anesthesiologist | Time | | + + + + + | CORONARY ARTERY | Ed Elmore MD | 02/15/19 0700 | 02/15/19 1310 | | BYPASS GRAFT X4 WITH | | | | | TAKEDOWN LEFT | | | | | INTERNAL MAMMARY | | | | | ARTERY, EVH RIGHT | | | | | SAPHONUS VEIN (N/A | | | | | Chest) | | | | + + + + + +----+---+ + + | Da | T | Event | Comment | | te | i | | | | | m | | | | | e | | | +----+---+ + + | 10 | 0 | An Start | Reassessment prior to anesthesia induction/procedure. | | /2 | 7 | | | | 4/ | 0 | | | | 20 | 0 | | | | 19 | | | | +----+---+ + + | | 0 | An | | | | 7 | Induction | | | | 1 | | | | | 7 | | | +----+---+ + + | | 0 | An | | | | 7 | Intubation | | | | 2 | | | | | 2 | | | +----+---+ + + | | 0 | Quick Note | PHARMACY: vancomycin 1.5g IVPB started | | | 7 | | | | | 4 | | | | | 1 | | | +----+---+ + + | | 0 | SHALA Probe | Easy, atraumatic insertion; (+)bite block | | | 7 | Placement | | | | 4 | | | | | 5 | | | +----+---+ + + | | 0 | Quick Note | Ci=2.6, SvO2=77% (MAP92, CVP17) | | | 7 | | | | | 4 | | | | | 8 | | | +----+---+ + + | | 0 | Anesthesia | | | | 7 | Ready | | | | 5 | | | | | 3 | | | +----+---+ + + | | 0 | Quick Note | PAP: 54/34 | | | 7 | | | | | 5 | | | | | 6 | | | +----+---+ + + | | 0 | First | | | | 8 | Inc/Proc St | | | | 0 | | | | | 3 | | | +----+---+ + + | | 0 | Quick Note | Ci=2.3, SvO2=78% (MAP86, CVP20) PAP55/33 [id number] | | | 8 | | | | | 5 | | | | | 4 | | | +----+---+ + + | | 0 | Quick Note | Blood gas shows metabolic acidosis and anemia. Plan to administer | | | 9 | | additional [id number] on CPB and give 2u pRBCs now. | | | 0 | | | | | 7 | | | +----+---+ + + | | 0 | Quick Note | Blood bank: 2units pRBCs given. First unit (#[id number]) | | | 9 | | started @0912, finished @928. Second unit: (#[id number]) | | | 1 | | started @0932, finished @1012. Total 600mL infused. | | | 2 | | | +----+---+ + + | | 0 | Faisal Note | Aortic cannulation | | | 9 | | | | | 2 | | | | | 7 | | | +----+---+ + + | | 0 | Faisal Note | RAP start | | | 9 | | | | | 4 | | | | | 6 | | | +----+---+ + + | | 0 | Quick Note | Ci=3.8, SvO2=81%, PAP36/21 | | | 9 | | | | | 5 | | | | | 4 | | | +----+---+ + + | | 1 | An CV | | | | 0 | Bypass init | | | | 0 | | | | | 3 | | | +----+---+ + + | | 1 | | | | | 1 | | | | | 3 | | | | | 7 | | | +----+---+ + + | | 1 | An CV | | | | 1 | Bypass | | | | 5 | cease | | | | 0 | | | +----+---+ + + | | 1 | Quick Note | Protamine test dose given | | | 1 | | | | | 5 | | | | | 1 | | | +----+---+ + + | | 1 | SHALA Probe | | | | 2 | Removed | | | | 3 | | | | | 9 | | | +----+---+ + + | | 1 | NG/OG | | | | 2 | Placement | | | | 5 | | | | | 7 | | | +----+---+ + + | | 1 | An Stop | Patient handed off to recovery nurse. | | | 1 | | | | | 0 | | | +----+---+ + + +------+ | Meds | +------+ + + + | Name | Total | + + + | midazolam 2 mg/mL | 2 mg | + + + | fentaNYL | 500 mcg | + + + | lidocaine 2% | 60 mg | + + + | etomidate | 20 mg | + + + | rocuronium | 100 mg | + + + | phenylephrine (bolus) | 800 mcg | + + + | phenylephrine (infusion) | 2,591 mcg | + + + | EPINEPHrine (bolus) | 5 mcg | + + + | EPINEPHrine (infusion) | 364 mcg | + + + | nitroglycerin (bolus) | 100 mcg | + + + | nitroglycerin (infusion) | 40 mcg | + + + | aminocaproic acid | 10 g | + + + | heparin | 38,000 Units | + + + | protamine | 300 mg | + + + | sodium bicarbonate injection 1 | 150 mEq | | mEq/mL | | + + + | furosemide (LASIX) injection | 20 mg | + + + | NS (infusion) | 700 mL | + + + | Plasmalyte (infusion) | 500 mL | + + + + + | Name | + + | N2O Flow Rate (L/Min) | + + | O2 Flow Rate (L/Min) | + + | Insp O2 | + + | Exp N2O | + + | Exp ISO | + + | Air Flow Rate (L/Min) | + + + + | No blood administrations on file. | + + +--------+ + + + | Type | Details | Placement | Removal | +--------+ + + + | Periph | 02/11/19; 315; yes; Right; | 02/11/19 0316 by | 02/18/19110 by | | eral | Forearm; ipfl-hxu-mmoilm catheter | Andreea Zuñiga RN | Theodore Patterson RN | | IV | system; 20 gauge; | | | | | catheter/device intact, site | | | | | symptomatic; 02/18/19; 0111 | | | +--------+ + + + | Periph | 02/11/19; 516; Left; Hand; | 02/11/19516 by | 02/18/19111 by | | eral | gnyl-bxd-qsiyxg catheter system; | Andreea Zuñiga RN | Theodore Patterson RN | | IV | 20 gauge; site symptomatic, | | | | | catheter/device intact; 02/18/19; | | | | | 0112 | | | +--------+ + + + | Drain/ | 02/15/19; #1; midline; chest; | 02/15/19 0000 by | 02/19/19943 by | | Device | other (see comments) (PREVENA | Geoff Briscoe RN | Tika Nagy RN | | Site | WOUND VAC); 02/19/19; 943 | | | +--------+ + + + | Wound | 02/15/19; N; Incision; other (see | 02/15/19 0000 by | 02/28/19 100 by | | | comments) (midsternal); chest; | Laly Rodriguez RN | Fatou Askew RN | | | 02/28/19; 1003 | | | +--------+ + + + | Arteri | 02/15/19; 713 (created via | 02/15/19713 by | 02/17/191638 by | | al | procedure documentation); | Ed Elmore MD | Carter Nagy, | | Line | Chlorhexidine/Isopropyl Alcohol; | | [employer] Associate | | | sedated; Right; brachial artery; | | | | | 20 gauge; continuous blood | | | | | pressure monitoring, frequent | | | | | blood gas measurement; | | | | | intradermal injection; ultrasound | | | | | guided; arm board, other (see | | | | | comments); no longer indicated; | | | | | Elective brachial insertion | | | | | secondary to poor radial target | | | | | bilaterally (inspected with US in | | | | | preop). First-pass success. 12cm | | | | | 20G catheter placed sterilely.; | | | | | 02/17/19; 1639 | | | +--------+ + + + | Urethr | 02/15/19; 0720; indicated due to | 02/15/19 0720 by | 02/18/19 1158 by | | al | specific surgical procedure; All | Darryl Kunz, | Walker Mckee, RN | | Cathet | elements; All elements; Bag | RN | | | er | positioned below the bladder, | | | | | System checked to verify closed | | | | | connections & no dependent loops, | | | | | obstructions/kinks; indwelling | | | | | double lumen catheter; latex; 14; | | | | | None; 2; 5; 10; not present | | | | | after transfer; 02/18/19; 1158 | | | +--------+ + + + | Airway | Placement Date: 02/15/19; | 02/15/19721 by | 02/16/19 0031 by | | | Placement Time: 721 (created via | Ed Elmore MD | Connor Crews RN | | | procedure documentation); Mask | | | | | Ventilation: EZ w/OA; Airway | | | | | Grade: 1; Successful Technique: | | | | | Mac; Laryngoscope Blade Size: 3; | | | | | Attempts: 1; Airway Type: | | | | | endotracheal; Size: 8; Airway | | | | | Tube Secured At: 22; Trauma: | | | | | none; Other Equipment: stylette; | | | | | Placement Check: exhaled CO2 | | | | | detection device, bilateral chest | | | | | rise, breath sounds equal | | | | | bilaterally; Removal: per order, | | | | | removed by RT; Removal Date: | | | | | 02/16/19; Removal Time: 30 | | | +--------+ + + + | PAC | 02/15/19; 731 (created via | 02/15/19731 by | 02/17/191638 by | | Triple | procedure documentation); Yes; | Ed Elmore MD | Carter Nagy, | | Lumen | Chlorhexidine/Isopropyl Alcohol; | | [employer] Associate | | | Yes; Yes; All; OR; 3D Specialist; | | | | | Ed Elmore MD; New indication | | | | | for central line (e.g., | | | | | hemodynamic monitoring, | | | | | fluid/medication administration, | | | | | etc.); Right; internal jugular | | | | | vein; oximetric; 9 Fr; no longer | | | | | indicated; Easy, first-pass | | | | | insertion.; 02/17/19; 1639 | | | +--------+ + + + | Wound | 02/15/19; 1120; Incision; Right; | 02/15/19 1120 by | 02/28/19 1003 by | | | leg; 02/28/19; 1003 | Darryl Kunz, | Fatou Askew RN | | | | RN | | +--------+ + + + | Chest | 02/15/19; 1227; LIEBERMAN; 1; | 02/15/19 1227 by | 02/19/19 09 by | | Tube Y | Left:; pleural; 24 Fr.; 2; | Geoff Briscoe RN | Tika Nagy RN | | 1&2 | Right:; pleural; 24 Fr.; | | | | | 02/19/19; 937 | | | +--------+ + + + | Chest | 02/15/19; 1228; 3; mediastinum; | 02/15/19 1228 by | 02/19/19 0938 by | | Tube | 02/19/19; 937 | Geoff Briscoe RN | Tika Nagy RN | +--------+ + + + | NG/OG | 02/15/19; 1300 (Placed in OR); | 02/15/19 1300 by | 02/16/19 0030 by | | | orogastric; right mouth; | Connor Crews RN | Joao Barth RN | | | medication administration, | | | | | gastric decompression; 02/16/19; | | | | | 0030 | | | +--------+ + + + documented in this encounter Social History + + + +--------+ + [...] | | | | | [address] | | | | | | [place] [address] | | | | | | [phone] | | | | | | | [...] + + documented in this encounter Results PAC (02/15/2019 9:29 AM PDT) + + [...] | | at this time 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 | + + Ada (02/15/2019 7:14 AM PDT) [...] - 02/15/2019 7:14 AM PDT Arterial Line Xvhzetbzw35/24/2019 | | 7:14Indication: continuous blood pressure monitoring [...] any additional medication documentation. | + + documented in this encounter Visit Diagnoses Not on filedocumented in this encounter Administered Medications + +--------+ +------+------+------+ | Medication Order | MAR | Action | Dose | Rate | Site | | | Action | Date | | | | + +--------+ +------+------+------+ | aminocaproic acid (AMICAR) | Given | 02/16/20 | 5 g | | | | injection Intravenous, PRN, | | 19 12:01 | | | | | Starting Cookie 02/15/19 at 0752, | | PM PDT | | | | | Anesthesia Intra-op | | | | | | + +--------+ +------+------+------+ +-------+ +-----+---+---+ | Given | 02/16/20 | 5 g | | | | | 19 7:52 | | | | | | AM PDT | | | | +-------+ +-----+---+---+ +---+---+ | | | +---+---+ + +---------+ +---+---+---+ | balanced electrolytes in water | New Bag | 02/16/20 | | | | | (PLASMALYTE-148/NORMOSOL-R) | | 19 7:00 | | | | | infusion Intravenous, CONTINUOUS | | AM PDT | | | | | PRN, Starting Cookie 02/15/19 at | | | | | | | 0700, Anesthesia Intra-op | | | | | | + +---------+ +---+---+---+ +---+---+ | | | +---+---+ + + + +---------+-------+---+ | EPINEPHrine 1 mg/mL injection | Rate/Dos | 02/16/20 | 4 | 0.2 | | | Intravenous, CONTINUOUS PRN, | e Change | 19 11:46 | mcg/min | mL/hr | | | Starting Cookie 02/15/19 at 1132, | | AM PDT | | | | | Anesthesia Intra-op | | | | | | + + + +---------+-------+---+ +---------+ +---------+-------+---+ | New Bag | 02/16/20 | 2 | 0.1 | | | | 19 11:32 | mcg/min | mL/hr | | | | AM PDT | | | | +---------+ +---------+-------+---+ +---+---+ | | | +---+---+ + +-------+ +-------+---+---+ | EPINEPHrine 1 mg/mL injection | Given | 02/16/20 | 5 mcg | | | | EPIDURAL, PRN, Starting Cookie | | 19 11:46 | | | | | 02/15/19 at 1146, Anesthesia | | AM PDT | | | | | Intra-op | | | | | | + +-------+ +-------+---+---+ +---+---+ | | | +---+---+ + +-------+ +-------+---+---+ | etomidate (AMIDATE) injection | Given | 02/16/20 | 20 mg | | | | Intravenous, PRN, Starting Cookie | | 19 7:17 | | | | | 02/15/19 at 0717, Anesthesia | | AM PDT | | | | | Intra-op | | | | | | + +-------+ +-------+---+---+ +---+---+ | | | +---+---+ + +-------+ +---------+---+---+ | fentaNYL (PF) injection | Given | 02/16/20 | 100 mcg | | | | Intravenous, PRN, Starting [place] | | 19 9:15 | | | | | 02/15/19 at 0658, Anesthesia | | AM PDT | | | | | Intra-op | | | | | | + +-------+ +---------+---+---+ +-------+ +---------+---+---+ | Given | 10/24/20 | 100 mcg | | | | | 19 8:23 | | | | | | AM PDT | | | | +-------+ +---------+---+---+ | Given | 02/16/20 | 50 mcg | | | | | 19 8:17 | | | | | | AM PDT | | | | +-------+ +---------+---+---+ +---+---+ | | | +---+---+ + +-------+ +-------+---+---+ | furosemide (LASIX) injection | Given | 02/16/20 | 20 mg | | | | PRN, Starting Cookie 02/15/19 at | | 19 12:18 | | | | | 1218, Anesthesia Intra-op | | PM PDT | | | | + +-------+ +-------+---+---+ +---+---+ | | | +---+---+ + +-------+ +---------+---+---+ | heparin 1,000 units/mL | Given | 02/16/20 | 35,000 | | | | injection Intravenous, PRN, | | 19 8:57 | Units | | | | Starting Cookie 02/15/19 at 0804, | | AM PDT | | | | | Anesthesia Intra-op | | | | | | + +-------+ +---------+---+---+ +-------+ +--------+---+---+ | Given | 02/16/20 | 3,000 | | | | | 19 8:04 | Units | | | | | AM PDT | | | | +-------+ +--------+---+---+ +---+---+ | | | +---+---+ + +-------+ +-------+---+---+ | lidocaine (PF) 2% injection | Given | 02/16/20 | 60 mg | | | | Intravenous, PRN, Starting Cookie | | 19 7:17 | | | | | 02/15/19 at 0717, Anesthesia | | AM PDT | | | | | Intra-op | | | | | | + +-------+ +-------+---+---+ +---+---+ | | | +---+---+ + +-------+ +------+---+---+ | midazolam (VERSED) 1 mg/mL | Given | 02/16/20 | 1 mg | | | | injection Intravenous, PRN, | | 19 7:17 | | | | | Starting Cookie 02/15/19 at 0658, | | AM PDT | | | | | Anesthesia Intra-op | | | | | | + +-------+ +------+---+---+ +-------+ +------+---+---+ | Given | 02/16/20 | 1 mg | | | | | 19 6:58 | | | | | | AM PDT | | | | +-------+ +------+---+---+ +---+---+ | | | +---+---+ + +---------+ +---------+-------+---+ | nitroglycerin in dextrose 200 | New Bag | 02/16/20 | 5 | 1.5 | | | mcg/mL infusion Intravenous, | | 19 8:24 | mcg/min | mL/hr | | | CONTINUOUS PRN, Starting Cookie | | AM PDT | | | | | 02/15/19 at 0824, Anesthesia | | | | | | | Intra-op | | | | | | + +---------+ +---------+-------+---+ +---+---+ | | | +---+---+ + +-------+ +--------+---+---+ | nitroglycerin in dextrose 200 | Given | 02/16/20 | 50 mcg | | | | mcg/mL infusion Intravenous, | | 19 11:59 | | | | | PRN, Starting Cookie 02/15/19 at | | AM PDT | | | | | 0926, Anesthesia Intra-op | | | | | | + +-------+ +--------+---+---+ +-------+ +--------+---+---+ | Given | 02/16/20 | 50 mcg | | | | | 19 9:26 | | | | | | AM PDT | | | | +-------+ +--------+---+---+ +---+---+ | | | +---+---+ + + + +---------+-------+---+ | phenylephrine (CHYNA-SYNEPHRINE, | Rate/Dos | 02/16/20 | 15 | 0.1 | | | VAZCULEP) 10 mg per mL injection | e Change | 19 12:53 | mcg/min | mL/hr | | | Intravenous, CONTINUOUS PRN, | | PM PDT | | | | | Starting [facility] 02/15/19 at 0806, | | | | | | | Anesthesia Intra-op | | | | | | + + + +---------+-------+---+ + + +---------+-------+---+ | Restarted | 02/16/20 | 10 | 0.1 | | | | 19 12:29 | mcg/min | mL/hr | | | | PM PDT | | | | + + +---------+-------+---+ | Rate/Dose Change | 02/16/20 | 5 | 0.1 | | | | 19 12:10 | mcg/min | mL/hr | | | | PM PDT | | | | + + +---------+-------+---+ +---+---+ | | | +---+---+ + +-------+ +---------+---+---+ | phenylephrine (CHYNA-SYNEPHRINE, | Given | 02/16/20 | 200 mcg | | | | VAZCULEP) 10 mg per mL injection | | 19 12:39 | | | | | Intravenous, PRN, Starting Cookie | | PM PDT | | | | | 02/15/19 at 0812, Anesthesia | | | | | | | Intra-op | | | | | | + +-------+ +---------+---+---+ +-------+ +---------+---+---+ | Given | 02/16/20 | 100 mcg | | | | | 19 12:02 | | | | | | PM PDT | | | | +-------+ +---------+---+---+ | Given | 02/16/20 | 200 mcg | | | | | 19 9:46 | | | | | | AM PDT | | | | +-------+ +---------+---+---+ +---+---+ | | | +---+---+ + +-------+ +-------+---+---+ | protamine injection | Given | 02/16/20 | 50 mg | | | | Intravenous, PRN, Starting Cookie | | 19 12:43 | | | | | 02/15/19 at 1200, Anesthesia | | PM PDT | | | | | Intra-op | | | | | | + +-------+ +-------+---+---+ +-------+ +--------+---+---+ | Given | 02/16/20 | 250 mg | | | | | 19 12:00 | | | | | | PM PDT | | | | +-------+ +--------+---+---+ +---+---+ | | | +---+---+ + +-------+ +-------+---+---+ | rocuronium (ZEMURON) injection | Given | 02/16/20 | 20 mg | | | | Intravenous, PRN, Starting Cookie | | 19 9:15 | | | | | 02/15/19 at 0718, Anesthesia | | AM PDT | | | | | Intra-op | | | | | | + +-------+ +-------+---+---+ +-------+ +-------+---+---+ | Given | 02/16/20 | 30 mg | | | | | 19 8:23 | | | | | | AM PDT | | | | +-------+ +-------+---+---+ | Given | 02/16/20 | 50 mg | | | | | 19 7:18 | | | | | | AM PDT | | | | +-------+ +-------+---+---+ +---+---+ | | | +---+---+ + +-------+ +--------+---+---+ | sodium bicarbonate 1 mEq/mL | Given | 02/16/20 | 50 mEq | | | | injection Administer over 1 | | 19 12:13 | | | | | Minutes, PRN, Starting Cookie | | PM PDT | | | | | 02/15/19 at 0757, Anesthesia | | | | | | | Intra-op | | | | | | + +-------+ +--------+---+---+ +-------+ +--------+---+---+ | Given | 02/16/20 | 50 mEq | | | | | 19 9:16 | | | | | | AM PDT | | | | +-------+ +--------+---+---+ | Given | 02/16/20 | 50 mEq | | | | | 19 7:57 | | | | | | AM PDT | | | | +-------+ +--------+---+---+ +---+---+ | | | +---+---+ + +---------+ +---+---+---+ | sodium chloride 0.9% (NS) | New Bag | 02/16/20 | | | | | infusion Intravenous, CONTINUOUS | | 19 7:00 | | | | | PRN, Starting Cookie 02/15/19 at | | AM PDT | | | | | 0700, Anesthesia Intra-op | | | | | | + +---------+ +---+---+---+ +---+---+ | | | +---+---+ documented in this encounter"
--- OUTSIDE RECORDS SUMMARY | ~2019-04-07 | XMS | Encounter Summary ---
Demographics + + + | Address | [address] | | | [place] [address] | + + + | Home Phone [...] Team Providers + +------+ + | Care Labor Crew Supervisor Name | Role | Phone | + +------+ + PCP | Unavailable | + +------+ + Encounter Details +--------+ + + + + | Date | Type | Department | Care Team | Description | +--------+ + + + + | 09/14/ | Hospital | [facility] | Randy Kumar MD | Streptococcal | | 2018 - | Encounter | [facility] | [address] | bacteremia; | | | | CARE FLOOR [address] | [address] [place], | Essential | | 09/17/ | | [address] | [place] [address] | hypertension; | | 2018 | | [place], [place] | [phone] | Paroxysmal atrial | | | | [address] | | fibrillation (HCC); | | | | [phone] | | Psoriasis | +--------+ + + + + Social [...] | Blood Pressure | 147/80 | 09/17/2017 9:16 AM | | | | | PDT | | + + + + + | Pulse | 79 | 09/17/2017 9:16 AM | | | | | PDT | | + + + + + | Temperature | 36.6 C (97.8 F) | 09/17/2017 9:16 AM | | | | | PDT | | + + + + + | Respiratory Rate | 16 | 09/17/2017 9:16 AM | | | | | PDT | | + + + + + | Oxygen Saturation | - | - | | + + + + + | Inhaled Oxygen | - | - | | | Concentration | | | | + + + + + | Weight | 87.4 kg (192 lb 10.9 | 09/17/2017 9:16 AM | | | | oz) | PDT | | + + + + + | Height | 180.3 cm (5' 10.98") | 09/17/2017 9:16 AM | | | | | PDT | | + + + + + | Body Mass Index | 26.89 | 09/17/2017 9:16 AM | | | | | PDT | | + + + + + documented in this encounter Discharge Summaries Rangel Bright MD - 09/17/2017 10:52 AM PDTFormatting of this note might be different f rom the original. 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 * Procedures Performed: Chief Complaint: Transfer in for suspected endocarditis Hospital Course: Live Robertson is a 52 y.o. male who was admitted on 09/14/2017 with suspected streptoco ccal endocarditis given positive blood cultures with strep iatrogenic knees. Patient was tra nsferred and was seen by cardiology and infectious disease underwent a transesophageal echoc ardiogram which did not show suggestion of endocarditis. Given this the patient will have janell paniagua a two-week course of antibiotics as per infectious disease and will be on vancomycin fo r this. The patient has a PICC line in place. He also has significant psoriasis for which sh e states he is to follow-up with a provider in the outpatient setting in a couple of weeks s ounds to be a outside sales. Patient should have clearance from infectious disease prior to any significant immunosuppressants being initiated. He will resume his prior to admission re harish for treatment of this as well as his diabetes and hypertension. Discharge Exam and Data: Vital Signs: BP 147/80 (BP Location: Left upper arm) | Pulse 79 | Temp 97.8 F (36.6 C) (Oral) | R javi 16 | Ht 1.803 m (5' 10.98") | Wt 87.4 kg (192 lb 10.9 oz) | SpO2 99% | BMI 26.89 kg/ m I&O Last 3 Shifts: 09/15 1899 - 09/17 0659 In: 1100 [P.O.:1100] Out: 900 [Urine:900] Physical Examination: Constitutional: Alert and oriented to person, place, and time. Appears well-developed and w ell-nourished. HEENT: Neck supple, no JVD, non icteric sclera. Cardiovascular: Normal rate, regular rhythm, normal heart sounds, and intact distal pulses. Exam reveals no appreciated gallop or friction rub. No murmur heard. Pulmonary/Chest: Effort normal and breath sounds normal. No stridor. No respiratory distres s. no wheezes. no rales. exhibits no tenderness. Abdominal: Soft. Bowel sounds are normal. exhibits no distension. There is no tenderness. T here is no rebound and no guarding. Extremeties/Musculoskeletal: Normal general range of motion.exhibits no tenderness. exhibi ts no edema. Cap ref <2 SECONDS Neurological: Alert and oriented to person, place, and time. Has normal reflexes. No chapo s cranial nerve or focal deficit. Exhibits normal muscle tone. Coordination normal. Skin: Skin is warm and dry. Diffuse psoriatic plaques appreciated over arms and patient rep orts over several other areas of his body. No erythema. No pallor. Psychiatric: Has a normal mood and affect given situation. Behavior is normal. Judgment nor mal for patient. Recent Labs Recent Labs Lab 09/17/1745609/16/1751709/15/17 0542 WBC 11.66* 11.19* 10.30 HGB 12.8* 12.4* 12.2* HCT 36.6* 35.8* 35.0* PLT 285 289 283 Recent Labs Lab 09/17/1745609/16/17 0518 09/15/17 0542 NA 143 142 143 K 3.9 3.9 3.7 CL 111* 109 111* CO2 22* 26 23 BUN 17 18 15 CREATININE 1.2 1.2 1.1 No results for input(s): INR in the last 168 hours. Results Procedure Component Value Units Date/Time Blood Culture Set 1 [[id number]] Collected: 09/14/17 181 Specimen: Blood from Blood, peripheral draw Updated: 09/16/17 0637 Specimen Description BLOOD, PERIPHERAL DRAW SPECIAL REQUESTS RAC CULTURE NO GROWTH 2 DAYS Blood Culture Set 2 [[id number]] Collected: 09/14/17 1824 Specimen: Blood from Blood, peripheral draw Updated: 09/16/17 0637 Specimen Description BLOOD, PERIPHERAL DRAW SPECIAL REQUESTS LAC CULTURE NO GROWTH 2 DAYS Recent Radiology Results Echo Outside Interpretation Standard Result Date: 09/13/2017 1. Overall left ventricular systolic function is normal with a visually estimated EF of 55% , slightly decreased from the EF of 60-65% on the prior study, done 10/29/13. 2. The right umm tricle is normal in size and function. 3. There is a possible small (3 mm) vegetation on the ventricular surface of the aortic valve, probably the left coronary cusp, but this is not w ell visualized. A TUAN would be helpful, as it would give better resolution of this structur e. Echo Tuan Result Date: 09/15/2017 1. LV size, wall thickness and systolic function are normal, with an EF > 60%. 2. The right ventricle is normal in size and function. 3. No vegetation seen on this examination. 4. The pericardium is normal. Outstanding Issues: I will put PCP follow-up with the outside sales that he is planning on seeing follow-up wit h infectious disease and all other providers that were being seen prior to admission. Prior to any immunosuppressants patient would need clearance from infectious disease. Patient will have outpatient vancomycin with monitoring of labs as per infectious disease. Discharge Information: Follow up: Yue Mcguire PA-C [address] [place] [address] [facility] [address] [facility] [phone] Follow up on 09/29/2017 [facility] [address] [facility] [address] Follow up Will provide IV medications [facility] [address] [place] [address] [place] [id number] Follow up Picc dressing change on at 5pm, labs on at 5pm. Please go to [address] Medication List START taking these medications vancomycin IVPB QTY: 24 Doses Refills: 0 Commonly known as: VANCOCIN Inject 1,250 mg into the vein every 12 (twelve) hours for 12 days. Dilute in appropriate vo lume of IV fluid and give by slow IV infusion. CHANGE how you take these medications rivaroxaban 20 MG tablet QTY: 30 tablet Refills: 11 Commonly known as: XARELTO Take 1 tablet by mouth daily with dinner. What changed: when to take this CONTINUE taking these medications amLODIPine 5 MG tablet Refills: 0 Commonly known as: NORVASC aspirin 81 MG EC tablet Refills: 0 * betamethasone valerate 0.1 % cream Refills: 0 Commonly known as: VALISONE * betamethasone valerate 0.1 % lotion Refills: 0 Commonly known as: VALISONE fenofibrate 160 MG tablet Refills: 0 fluticasone 50 MCG/ACT nasal Refills: 0 Commonly known as: FLONASE insulin aspart 100 UNIT/ML injection Refills: 0 Commonly known as: NOVOLOG insulin glargine 100 UNIT/ML injection Refills: 0 Commonly known as: LANTUS lisinopril 40 MG tablet Refills: 0 Commonly known as: ZESTRIL loperamide 2 MG capsule Refills: 0 Commonly known as: IMODIUM metoprolol 100 MG 24 hr tablet Refills: 0 Commonly known as: TOPROL-XL NITROSTAT 0.4 MG SL tablet Refills: 0 Generic drug: nitroGLYCERIN OTEZLA PO Refills: 0 rosuvastatin 20 MG tablet Refills: 0 Commonly known as: CRESTOR sitagliptan 100 MG tablet Refills: 0 Commonly known as: JANUVIA * This list has 2 medication(s) that are the same as other medications prescribed for you. Read the directions carefully, and ask your doctor or other care provider to review them wit h you. You might also be taking other medications not listed above. If you have questions about an y of your other medications, talk to the person who prescribed them or your Primary Care Pro vider. Where to Get Your Medications You can get these medications from any pharmacy Bring a paper prescription for each of these medications vancomycin IVPB Disposition: Home Condition: Stable Code Status: Full Code Discharge took 40 minutes, to include final examination, discussion of admission, and prepa ration of prescriptions, instructions for on-going care, follow-up and documentation of disc harge summary. RANGEL BRIGHT MD 10:52 AM documented in this encounter Progress Notes Conversion Transaction, Provider Unknown - 09/17/2017 11:37 AM PDTFormatting of this note m ight be different from the original. Progress Notes by Tika Nagy RN at 09/17/17 1137 Author: Tika Nagy RN Service: (none) Author Type: Registered Nurse Filed: 09/17/17 1138 Date of Service: 09/17/17 113 Status: Signed Registered Phlebotomist Part Time: Tika Nagy RN (Registered Nurse) Called Osvaldo to confirm abx would be dropped off this afternoon for this evening dose. Ale abby is set up. Went over discharge instructions and follow up appointments with the haja oviedo. He is in stable condition upon discharge. No further concerns or questions at this t jero. onver jennifer Transaction, Provider Unknown - 09/17/2017 9:12 AM PDT Pharmacy Note by Diana Interiano RPH at 09/17/17 0912 Author: Diana Interiano RPH Service: Pharmacy Author Type: Pharmacist Filed: 09/17/17911 Date of Service: 09/17/17911 Status: Signed Registered Phlebotomist Part Time: Diana Interiano RPH (Pharmacist) Vancomycin Monitoring: Scr = 1.2 WBC = 11.66 Estim CrCl = 77.6 ml/min Current regimen Vanco 1250mg (13.7 mg/kg) IV q 12h. Next Vanco Tr 0500 09/18/17. Goal Tr 15-20 mcg/ml INDICATION: Sepsis Pharmacist; DIANA INTERIANO 09/17/2017 9:12 AM Trini Morley MD - 09/17/2017 8:55 AM PDT Progress Notes by Trini Paul MD at 09/17/17854 Author: Trini Paul MD Service: Infectious Disease Author Type: Physician Filed: 09/17/17 1414 Date of Service: 09/17/17854 Status: Signed Registered Phlebotomist Part Time: Trini Paul MD (Physician) [facility] Service: Infectious Disease Progress Note Hospital Day: LOS: 3 days Post-Op Day: * No surgery found * SUBJECTIVE Patient Summary: Re: Strep pyogenes bacteremia, suspected aortic valve endocarditis From ID consult note on 09/16: The patient is 52 y.o. male with significant past medical hi story of type II diabetes mellitus, hypertension, coronary artery disease status post cardia c stenting 2007, paroxysmal atrial fibrillation on Xarelto, psoriasis on apremilast (Otezla) , hypertension. He had no prior history of bacteremia, valvular heart disease or endocarditi s. He does not use illicit drugs. He was admitted to [facility] is a transfer from [facility]. He initially presented at [facility] with 4 days of fever, chills and malaise. There was no clear focus of infection bu t he had skin rash from psoriasis; he has been referred but not yet seen by Dermatology. He was placed on broad-spectrum antibiotics and was found to have Streptococcus pyogenes bacter emia. Transthoracic echocardiogram showed possible vegetation at the aortic valve measuring 3 mm. WBC on presentation was initially 22,000 with trend down to 11,500 on antibiotic thera py. He had defervesced and chills had resolved. He has history of allergy to penicillin desc ribed to swelling and rash so he was placed on IV vancomycin. He has never been on cephalosp orins based on his account and available medical records. Blood cultures were drawn on admission to [facility] on 09/14 with no growth to date. Transesoph ageal echocardiogram was carried out on 09/15 with no vegetations, normal pericardium and EF. He has remained afebrile, hemodynamically stable. He has no chills. He denies respirator y symptoms, chest pain, palpitations. He denies skin infections including cellulitis/absces ses. 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 He has no artis nt swelling or back pain. He reports "chronic diarrhea" worked up by GI, which is typical f or him; review of nursing reports indicate that last BM was on 09/15 with no report of diarrh ea. He has no weakness, numbness, light-headedness. Events Overnight: Afebrile, hemodynamically stable. IV vancomycin dosing adjusted b ecause of supratherapeutic level. No new issues. Discharge planning ongoing. Scheduled Medications aspirin 81 mg Oral Daily fenofibrate 160 mg Oral Nightly insulin glargine 15 Units Subcutaneous Nightly insulin lispro (human) 0-3 Units Subcutaneous Nightly insulin lispro (human) 0-6 Units Subcutaneous TID AC lisinopril 40 mg Oral Daily metoprolol 100 mg Oral Daily rivaroxaban 20 mg Oral Daily with dinner rosuvastatin 20 mg Oral Nightly sitagliptan 100 mg Oral Daily sodium chloride 10 mL Intravenous 2 times per day vancomycin 15 mg/kg Intravenous Q12H Continuous Infusions dextrose PRN Medications acetaminophen OR acetaminophen, dextrose, dextrose, dextrose, fentaNYL, glucagon, gluca deyis, hydrALAZINE, midazolam, nitroGLYCERIN, ondansetron OR ondansetron, polyethylene gly col, sodium chloride, zolpidem OBJECTIVE Vital Signs: BP 147/80 (BP Location: Left upper arm) | Pulse 79 | Temp 97.8 F (36.6 C) (Oral) | R javi 16 | Ht 1.803 m (5' 10.98") | Wt 87.4 kg (192 lb 10.9 oz) | SpO2 99% | BMI 26.89 kg/ m Temp: [97.3 F (36.3 C)-98 F (36.7 C)] 97.8 F (36.6 C) (09/17 741) BP: (135-170)/(69-86) 147/80 (09/17 741) Heart Rate: [67-79] 79 (09/17 741) Resp: [16-18] 16 (09/17 741) SpO2: [97 %-99 %] 99 % (09/17 741) Weight: [87.4 kg (192 lb 10.9 oz)] 87.4 kg (192 lb 10.9 oz) (09/17 342) Physical Exam Vital signs have been reviewed Gen.: Not in acute distress HEENT: Normocephalic. Anicteric sclera. No conjunctival lesions. No oral thrush or ulcers Lungs: No adventitious breath sounds Cardiovascular: Normal rate. Regular rhythm. No murmur or rubs Abdomen: No distention. Soft. No tenderness or palpable masses Skin: No drug rash. Scaly white plaques over her upper and lower extremities and torso; no signs of skin infection Musculoskeletal: No inflamed looking joints Neurologic: Oriented 3. Motor strength intact upper and lower extremities DATA CBC: Lab Results Component Value Date WBC 11.66 (H) 09/17/2017 RBC 4.25 09/17/2017 HGB 12.8 (L) 09/17/2017 HCT 36.6 (L) 09/17/2017 MCV 86.2 09/17/2017 MCH 30.2 09/17/2017 MCHC 35.1 09/17/2017 RDW 42.0 09/17/2017 PLT 285 09/17/2017 MPV 7.2 09/17/2017 DIFFTYPE AUTOMATED 09/17/2017 WBC: Lab Results Component Value Date WBC 11.66 (H) 09/17/2017 NEUTROABS 8.45 (H) 09/17/2017 LYMPHSABS 1.37 09/17/2017 LYMPHOPCT 11.77 09/17/2017 MONOPCT 10.82 09/17/2017 EOSABS 0.49 09/17/2017 EOSPCT 4.17 09/17/2017 BASOSABS 0.09 09/17/2017 BASOPCT 0.78 09/17/2017 CMP: Lab Results Component Value Date NA 143 09/17/2017 K 3.9 09/17/2017 CL 111 (H) 09/17/2017 CO2 22 (L) 09/17/2017 ANIONGAP 14 09/17/2017 GLUF 91 09/17/2017 BUN 17 09/17/2017 CREATININE 1.2 09/17/2017 BCR 14 09/15/2017 CA 8.6 09/17/2017 ALB 2.1 (L) 09/17/2017 EGFR >60 09/17/2017 Component Latest Ref Rng & Units 09/16/2017 11:52 AM VANCOMYCIN,TROUGH 10 - 20 ug/mL 24.5 (HH) Lab Results Component Value Date ESR 49 (H) 09/16/2017 Lab Results Component Value Date CRP 1.2 (H) 09/16/2017 Microbiology data: 09/14 blood cultures with no growth to date 09/10 Blood cultures from [facility] Strep pyogenes S to PCN, ampicillin, cephalosporins, quinolones, vancomycin Transthoracic echocardiogram Reviewed 09/10 chest x-ray outside film reviewed - no infiltrates or pleural effusion Transesophageal echocardiogram Impression 1. LV size, wall thickness and systolic function are normal, with an EF > 60%. 2 . The right ventricle is normal in size and function. 3. No vegetation seen on this examinat ion. 4. The pericardium is normal. PROBLEM LIST Principal Problem: Streptococcal bacteremia Active Problems: CAD (coronary artery disease) HTN (hypertension) DM (diabetes mellitus) Hyperlipidemia Paroxysmal atrial fibrillation (HCC) Essential hypertension with goal blood pressure less than 130/85 Infection due to Streptococcus pyogenes Endocarditis--suspected bacterial Anticoagulated--with xarelto Psoriasis ASSESSMENT & PLAN Strep pyogenes bacteremia -There was suspected infectious endocarditis involving the aortic valve on transthoracic e chocardiogram done at [facility]; transesophageal echocardiogram done here shows no evide nce of vegetation -Patient has comorbidities of type II diabetes mellitus, coronary artery disease, paroxysm al atrial fibrillation on Xarelto, psoriasis not on biologicals or steroids and penicillin a llergy described as hives; no history of cephalosporin tolerance -Current creatinine is 1.2 with calculated GFR of 84 -Patient is currently afebrile, hemodynamically stable. Leukocytosis is improved. -Continue IV vancomycin, target trough of 15-20; vanco level supratherapeutic with dose ad justed -PICC placement requested for this morning -Social work consulted. Prescription for IV vancomycin for 14 days, stop date of 09/28 in E PIC/paper chart along with twice weekly laboratory monitoring and weekly PICC dressing baker es. ID follow-up on or around 09/28 Case discussed yesterday with Dr. Bright Code Status: Full Code TRINI PAUL MD 09/17/2017 onversion Rosa saction, Provider Unknown - 09/16/2017 5:01 PM PDTFormatting of this note might be differen t from the original. Progress Notes by Tika Nagy RN at 09/16/171700 Author: Tika Nagy RN Service: (none) Author Type: Registered Nurse Filed: 09/16/171701 Date of Service: 09/16/171700 Status: Signed Registered Phlebotomist Part Time: Tika Nagy RN (Registered Nurse) Patient had an uneventful shift, receiving IV abx. Patient should d/c tomorrow after PICC placement, home with IV ABX. onver jennifer Transaction, Provider Unknown - 09/16/2017 1:14 PM PDT Pharmacy Note by Chantal Edmondson RPH at 09/16/171313 Author: Chantal Edmondson RPH Service: Pharmacy Author Type: Pharmacist Filed: 09/16/171313 Date of Service: 09/16/171313 Status: Signed Registered Phlebotomist Part Time: Chantal Edmondson RPH (Pharmacist) Vancomycin Monitoring Clinician Dosing: Pharmacy Dosing Recent Trough level: 24.5 mcg/mL Drawn: 09/16 @ 1152 Serum creatinine: 1.2 mg/dL 09/16/17517 Estimated creatinine clearance: 83.7 mL/min Plan per protocol: Change regimen to: Vancomycin 1250 mg Q12H. Order trough levels:09/18 @ 0500 09/16/2017 1:12 PM Pharmacist: Chantal Edmondson onver jennifer Transaction, Provider Unknown - 09/16/2017 10:51 AM PDT Case Management by Marlyn Patterson RN at 09/16/17 1051 Author: Marlyn Patterson RN Service: (none) Author Type: Registered Nurse Filed: 09/16/17 2141 Date of Service: 09/16/17 1051 Status: Addendum Registered Phlebotomist Part Time: Marlyn Patterson RN (Registered Nurse) Related Notes: Original Note by Marlyn Patterson RN (Registered Nurse) filed at 09/16/17 161 9 Pt to d/c home on 2 wks IV Vanco BID. Met with pt re IV therapy plan, pt doesn't understand why he cant d/c home on PO abx and states last time, "I was on 6wks of abx last time and h ad to be out of work for 6 wks" . Pt finally agreed to go to OP IV therapy at [facility] to [facility] , as pt states this is where his PCP(Yeu tran) is. Left [facility] for Clarissa Jorge and Marisela(RN Sujpervisor) to call back re sett ing up IV therapy plan. Faxed H&P, prog notes and tentative Vanco order to [phone]. 1400: Addendum: This is a tentative vanco order, Dr Paul may need to change vanco dosin g depending on next Trough level. May need to refax order tomorrow Tc to [facility] , re IV therapy plan. Per Katheryn, they need to rece brina orders for IV therapy from pt's PCP in order to schedule pt. Tentative d/c this wknd. Pt needs PICC placement 1400: notified pt that this CM has left 3 messages with [facility] and have f axed orders/notes but no one has called back this CM to update on status of request. Informe d pt if this isnt set up today by them, pt will have to stay here till Tuesday. Notified primary RN and hospitalist. 1500: per Deidre with [facility], their PCPs dont have privileges at [facility] and cannot set up OP IV therapy at [facility]. Deidre suggests pt receive home infusion or g o to [facility] or [facility] for OP therapy. 1530: Per nursing superviosor Katheryn at [facility], they cannot provide any ass istance with OP iv therapy unless they have a PCP that has privileges there. 1600: Tc to [facility] came to meet with pt about home infusion services. Pt has agreed t o home insufion and will go to [facility] for PICC care. Oscar will provide tea hannah today to pt and his SO. Lyndsey info in AVS Faxed PICC orders to [facility] appnt schedule in [facility] Notified primary RN, hospitalist and ID Pt can be d/c tomorrow if medically ready. Carolyn angel Cummins MD - 09/16/2017 8:52 AM PDT Progress Notes by Rangel Bright MD at 09/16/17851 Author: Rangel Bright MD Service: Hospitalist Author Type: Physician Filed: 09/16/17 1631 Date of Service: 09/16/17851 Status: Signed Registered Phlebotomist Part Time: Rangel Bright MD (Physician) [facility] Service: Hospitalist Progress Note Pt: Live Robertson AGE/SEX: 52 y.o. male ROOM: [address] [place] [address]- : 1965 PCP: PER PT NONE (Inactive) ADMIT DATE: 09/14/2017 TODAY'S DATE: 09/16/2017 Hospital Day: LOS: 2 days Post-Op Day: * No surgery found * Hospital Day/Hospital Course: LOS: 2 days SUBJECTIVE: Patient seen and examined. Complaint of nothing at present denies pain nausea vomiting feve r chills at present. No chest pain, SOB, OSORIO. No cough on recumbency. Had no orthopnea or PND. No Abdominal pain , N/V or fever. No dizziness or lightheadedness. Scheduled Medications: aspirin 81 mg Oral Daily fenofibrate 160 mg Oral Nightly insulin glargine 15 Units Subcutaneous Nightly insulin lispro (human) 0-3 Units Subcutaneous Nightly insulin lispro (human) 0-6 Units Subcutaneous TID AC lisinopril 40 mg Oral Daily metoprolol 100 mg Oral Daily rivaroxaban 20 mg Oral Daily with dinner rosuvastatin 20 mg Oral Nightly sitagliptan 100 mg Oral Daily sodium chloride 10 mL Intravenous 2 times per day vancomycin 17 mg/kg Intravenous Q12H Continuous Infusions dextrose PRN Medications acetaminophen OR acetaminophen, dextrose, dextrose, dextrose, fentaNYL, glucagon, gluca deysi, hydrALAZINE, midazolam, nitroGLYCERIN, ondansetron OR ondansetron, polyethylene gly col, sodium chloride, zolpidem Allergy: Allergies Allergen Reactions Penicillins Swelling and Rash OBJECTIVE: Vitals: Patient Vitals for the past 24 hrs: BP Temp Temp src Pulse Resp SpO2 Weight 09/16/17 0817 167/85 97.7 F (36.5 C) Oral 83 - 97 % - 09/16/17 0352 142/75 97.9 F (36.6 C) Oral 76 18 94 % 90.4 kg (199 lb 4.7 oz) 09/15/17 2300 131/69 97.7 F (36.5 C) Oral 65 - 98 % - 09/15/171999 161/90 - - 72 - - - 09/15/17 1932 (!) 172/94 97.9 F (36.6 C) Oral 71 18 98 % - 09/15/17 1730 114/64 - - 61 - 97 % - 09/15/17 1715 148/85 - - 66 - 98 % - 09/15/17 1710 (!) 169/91 - - 63 - 97 % - 09/15/17 1705 171/90 - - 67 - 99 % - 09/15/17 1700 177/89 - - 69 - 96 % - 09/15/17 1653 184/87 97.4 F (36.3 C) Oral 73 16 97 % - 09/15/17 1212 146/78 97.9 F (36.6 C) Oral 68 16 97 % - I&O Detailed Table: Intake/Output Summary (Last 24 hours) at 09/16/17 0852 Last data filed at 09/16/17 0354 Gross per 24 hour Intake 600 ml Output 600 ml Net 0 ml Patient Vitals for the past 96 hrs: Weight 09/16/17 0352 90.4 kg (199 lb 4.7 oz) 09/14/17 1700 91.5 kg (201 lb 11.5 oz) Hemodynamics Last 24hrs: Physical Examination: Constitutional: Alert and oriented to person, place, and time. Appears well-developed and w ell-nourished. HEENT: Neck supple, no JVD, non icteric sclera. Cardiovascular: Normal rate, regular rhythm, normal heart sounds, and intact distal pulses. Exam reveals no appreciated gallop or friction rub. No murmur heard. Pulmonary/Chest: Effort normal and breath sounds normal. No stridor. No respiratory distres s. no wheezes. no rales. exhibits no tenderness. Abdominal: Soft. Bowel sounds are normal. exhibits no distension. There is no tenderness. T here is no rebound and no guarding. Extremeties/Musculoskeletal: Normal general range of motion.exhibits no tenderness. exhibi ts no edema. Cap ref <2 SECONDS Neurological: Alert and oriented to person, place, and time. Has normal reflexes. No chapo s cranial nerve or focal deficit. Exhibits normal muscle tone. Coordination normal. Skin: Skin is warm and dry. Diffuse psoriatic plaques appreciated over arms and patient rep orts over several other areas of his body. No erythema. No pallor. Psychiatric: Has a normal mood and affect given situation. Behavior is normal. Judgment nor mal for patient. LABS: Recent Labs Lab 09/16/17 0518 09/15/17 0542 WBC 11.19* 10.30 HGB 12.4* 12.2* HCT 35.8* 35.0* PLT 289 283 NEUTOPHILPCT 72.42 66.92 MONOPCT 10.21 10.59 Recent Labs Lab 09/16/17 0518 09/15/17 0542 NA 142 143 K 3.9 3.7 CL 109 111* CO2 26 23 BUN 18 15 CREATININE 1.2 1.1 Phosphorus: Lab Results Component Value Date PHOS 3.2 09/16/2017 Invalid input(s): LABALBU Recent Labs Lab 09/16/17 0518 09/15/17 0542 MG 2.0 1.9 No results for input(s): AMYLASE in the last 168 hours. No results for input(s): PHART, PO2ART, EJD2TWS, O5HYJXWS, BEART in the last 168 hours. No results for input(s): APTT, INR, PTT in the last 168 hours. No results for input(s): TSH, T3FREE, FREET4 in the last 168 hours. No results for input(s): CKTOTAL, TROPONINI, TROPONINT, CKMBINDEX in the last 168 hours. Results Procedure Component Value Units Date/Time Blood Culture Set 1 [[id number]] Collected: 09/14/171817 Specimen: Blood from Blood, peripheral draw Updated: 09/16/17 0637 Specimen Description BLOOD, PERIPHERAL DRAW SPECIAL REQUESTS RAC CULTURE NO GROWTH 2 DAYS Blood Culture Set 2 [[id number]] Collected: 09/14/171823 Specimen: Blood from Blood, peripheral draw Updated: 09/16/17 0637 Specimen Description BLOOD, PERIPHERAL DRAW SPECIAL REQUESTS LAC CULTURE NO GROWTH 2 DAYS RADIOLOGY: Echo Outside Interpretation Standard Result Date: 09/13/2017 1. Overall left ventricular systolic function is normal with a visually estimated EF of 55% , slightly decreased from the EF of 60-65% on the prior study, done 10/29/13. 2. The right umm tricle is normal in size and function. 3. There is a possible small (3 mm) vegetation on the ventricular surface of the aortic valve, probably the left coronary cusp, but this is not w ell visualized. A TUAN would be helpful, as it would give better resolution of this structur e. PROBLEM LIST Principal Problem: Streptococcal bacteremia Active Problems: Infection due to Streptococcus pyogenes Endocarditis--suspected bacterial Anticoagulated--with xarelto CAD (coronary artery disease) HTN (hypertension) DM (diabetes mellitus) Hyperlipidemia Paroxysmal atrial fibrillation (HCC) Essential hypertension with goal blood pressure less than 130/85 Psoriasis ASSESSMENT & PLAN Streptococcal bacteremia (09/15/2017) Infection due to Streptococcus pyogenes (09/15/2017) Endocarditis--suspected bacterial (09/15/2017) Assessment: Currently await the transesophageal echocardiogram to evaluate for the potent ial of endocarditis. The patient reportedly has bacteremia as per the outside facility. Here blood cultures are currently pending on sure if there was a first negative yet however awai t these to see if they would be. Infectious disease is aware of the patient recommends hernandez nuing vancomycin for now further adjustment pending to progress and results of the transesop hageal echocardiogram. 09/16: I am happy to see that no veg suggested on TUAN, ID seeing and await further reccs an d plan for mgt. On vanco presently. PCN allergy per report. Addendum: Plan is for vancomycin as per infectious disease which will be arranged to be don e in the outpatient setting. Additionally the patient will need a PICC line placed. Anticoagulated--with xarelto (09/15/2017) Assessment: As per prior to admission. CAD (coronary artery disease) (04/03/2013) Assessment: Denies chest pain presently. Unknown specific severity of disease. Cardiology to see the patient for transesophageal echocardiogram and further evaluation. HTN (hypertension) (04/03/2013) Essential hypertension with goal blood pressure less than 130/85 (08/12/2016) Assessment: Patient does seem to have ambivalent blood pressures. Unclear if some of this is stress related or other. Continue to follow and adjust regimen as needed. Will order prn IV hydralazine as well 09/16: BP a bit improved presently. Continue with current regimen for now, follow, and adju st as needed based on progress. Vitals: 09/15/17 2000 09/15/17 2300 09/16/17 0352 09/16/17 0817 BP: 161/90 131/69 142/75 167/85 BP Location: Left upper arm Left upper arm Pulse: 72 65 76 83 Resp: 18 Temp: 97.7 F (36.5 C) 97.9 F (36.6 C) 97.7 F (36.5 C) TempSrc: Oral Oral Oral SpO2: 98% 94% 97% Weight: 90.4 kg (199 lb 4.7 oz) Height: DM (diabetes mellitus) (04/03/2013) Assessment: Continue with current regimen for now, follow, and adjust as needed based on progress. Check hemoglobin A1c, will add on if not already drawn this am. No results for input(s): HGBA1C in the last 168 hours. Hyperlipidemia (11/15/2013) Assessment: Continue with current regimen for now, follow, and adjust as needed based on progress. Check lipid panel in the a.m. 09/16: lipid panel as below. Continue with current regimen for now, follow, and adjust as n eeded based on progress. Recent Labs Lab 09/16/17 0518 CHOL 84 TRIG 116 HDL 33* LDL 28 Paroxysmal atrial fibrillation (HCC) (08/12/2016) Assessment: Rate controlled anticoagulated continue to follow and adjust regimen as neede d. No change today. Vitals: 09/15/17 2000 09/15/17 2300 09/16/17 0352 09/16/17 0817 BP: 161/90 131/69 142/75 167/85 BP Location: Left upper arm Left upper arm Pulse: 72 65 76 83 Resp: 18 Temp: 97.7 F (36.5 C) 97.9 F (36.6 C) 97.7 F (36.5 C) TempSrc: Oral Oral Oral SpO2: 98% 94% 97% Weight: 90.4 kg (199 lb 4.7 oz) Height: Psoriasis (09/15/2017) Assessment: On otezla in the outpatient setting. Pt reports he is following up with outpa tient providers on this in a couple of weeks. I would imaging pt will need clearance from I D prior to any immunosuppressants. RANGEL BRIGHT MD 09/16/2017 8:52 AM Greater than 35 minutes spent today overall in coordination of care, seeing and managing pa elidia, review of data, coordination with staff, coordination with involved consultants, and including any scheduled multidisciplinary rounding focused on the patient with 50 percent or more spent seeing and managing patient and counseling/coordination. Dictation software, Dealised, used which may contain error for similar sounding words even af ter review. Personal communication requested for any clarification. Portions of this chart may have been copied from previous notes for continuity of care purp ose oon Red MD - 09/15/2017 5:01 PM PDT Progress Notes by Joon Red MD at 09/15/17 170 Author: Joon Red MD Service: Cardiology Author Type: Physician Filed: 09/15/17 7020 Date of Service: 09/15/171700 Status: Signed Registered Phlebotomist Part Time: Joon Red MD (Physician) [facility] Service: Cardiology Pre-Operative History & Physical Interval Update Transesophageal echocardiogram is requested for further evaluation of aortic valve. Moderate Sedation Presedation Assessment completed. ASA Classification: ASA 1: Normal healthy patient and ASA 2: Patient with a mild systemic disease Mallampati Classification: II: Visibility of hard and soft palate, upper portion of tonsil s and uvula Lungs: CTA bilaterally CV: s1 s2 RRR> Neuro: AAO X 3 There has been no change since prior encounter. Joon Red MD 09/15/2017 *CORE MEASURES REMINDER: If the patient has a known or suspected infection prior to surger y, please add diagnosis to the problem list (consider: Infection 136.9). angel Bright MD - 09/15/2017 3:46 PM PDT Progress Notes by Rangel Bright MD at 09/15/17 1546 Author: Rangel Bright MD Service: Hospitalist Author Type: Physician Filed: 09/15/17 6356 Date of Service: 09/15/17 154 Status: Signed Registered Phlebotomist Part Time: Rangel Bright MD (Physician) [facility] Service: Hospitalist Progress Note Pt: Live Robertson AGE/SEX: 52 y.o. male ROOM: [address] [place] [address] : 1965 PCP: PER PT NONE (Inactive) ADMIT DATE: 09/14/2017 TODAY'S DATE: 09/15/2017 Hospital Day: LOS: 1 day Post-Op Day: * No surgery found * Hospital Day/Hospital Course: LOS: 1 day SUBJECTIVE: Patient seen and examined. Complaint of nothing at present denies pain nausea vomiting feve r chills at present. No chest pain, SOB, OSORIO. No cough on recumbency. Had no orthopnea or PND. No Abdominal pain , N/V or fever. No dizziness or lightheadedness. Scheduled Medications: aspirin 81 mg Oral Daily fenofibrate 160 mg Oral Nightly insulin glargine 15 Units Subcutaneous Nightly insulin lispro (human) 0-3 Units Subcutaneous Nightly insulin lispro (human) 0-6 Units Subcutaneous TID AC lisinopril 40 mg Oral Daily metoprolol 100 mg Oral Daily rivaroxaban 20 mg Oral Daily with dinner rosuvastatin 20 mg Oral Nightly sitagliptan 100 mg Oral Daily vancomycin 17 mg/kg Intravenous Q12H Continuous Infusions dextrose PRN Medications acetaminophen OR acetaminophen, dextrose, dextrose, dextrose, glucagon, glucagon, nitro GLYCERIN, ondansetron OR ondansetron, polyethylene glycol, zolpidem Allergy: Allergies Allergen Reactions Penicillins Swelling and Rash OBJECTIVE: Vitals: Patient Vitals for the past 24 hrs: BP Temp Temp src Pulse Resp SpO2 Height Weight 09/15/17 1212 146/78 97.9 F (36.6 C) Oral 68 16 97 % - - 09/15/17 0739 (!) 196/96 - - - - - - - 09/15/17 0738 (!) 200/96 98.3 F (36.8 C) Oral 91 18 96 % - - 09/15/17 0403 140/72 97.6 F (36.4 C) Oral 75 20 100 % - - 09/14/17 2305 165/86 97.6 F (36.4 C) Oral 89 20 93 % - - 09/14/17 1948 147/76 97.8 F (36.6 C) Oral 93 20 98 % - - 09/14/17 1900 - - - - 20 - - - 09/14/17 1715 (!) 182/95 98.1 F (36.7 C) Oral 94 20 - 1.803 m (5' 10.98") - 09/14/17 1700 (!) 182/95 98.1 F (36.7 C) Oral 94 20 - 1.803 m (5' 11") 91.5 kg (201 lb 11.5 oz) I&O Detailed Table: Intake/Output Summary (Last 24 hours) at 09/15/17 1552 Last data filed at 09/15/17 0404 Gross per 24 hour Intake 1050 ml Output 0 ml Net 1050 ml Patient Vitals for the past 96 hrs: Weight 09/14/17 1700 91.5 kg (201 lb 11.5 oz) Hemodynamics Last 24hrs: Physical Examination: Constitutional: Alert and oriented to person, place, and time. Appears well-developed and w ell-nourished. HEENT: Neck supple, no JVD, non icteric sclera. Cardiovascular: Normal rate, regular rhythm, normal heart sounds, and intact distal pulses. Exam reveals no appreciated gallop or friction rub. No murmur heard. Pulmonary/Chest: Effort normal and breath sounds normal. No stridor. No respiratory distres s. no wheezes. no rales. exhibits no tenderness. Abdominal: Soft. Bowel sounds are normal. exhibits no distension. There is no tenderness. T here is no rebound and no guarding. Extremeties/Musculoskeletal: Normal general range of motion.exhibits no tenderness. exhibi ts no edema. Cap ref <2 SECONDS Neurological: Alert and oriented to person, place, and time. Has normal reflexes. No chapo s cranial nerve or focal deficit. Exhibits normal muscle tone. Coordination normal. Skin: Skin is warm and dry. Diffuse psoriatic plaques appreciated over arms and patient rep orts over several other areas of his body. No erythema. No pallor. Psychiatric: Has a normal mood and affect given situation. Behavior is normal. Judgment nor mal for patient. LABS: Recent Labs Lab 09/15/17 0542 WBC 10.30 HGB 12.2* HCT 35.0* PLT 283 NEUTOPHILPCT 66.92 MONOPCT 10.59 Recent Labs Lab 09/15/17 0542 NA 143 K 3.7 CL 111* CO2 23 BUN 15 CREATININE 1.1 Phosphorus: Lab Results Component Value Date PHOS 3.5 09/15/2017 Invalid input(s): LABALBU Recent Labs Lab 09/15/17 0542 MG 1.9 No results for input(s): AMYLASE in the last 168 hours. No results for input(s): PHART, PO2ART, FUB6XOW, H2WGUQNJ, BEART in the last 168 hours. No results for input(s): APTT, INR, PTT in the last 168 hours. No results for input(s): TSH, T3FREE, FREET4 in the last 168 hours. No results for input(s): CKTOTAL, TROPONINI, TROPONINT, CKMBINDEX in the last 168 hours. Results Procedure Component Value Units Date/Time Blood Culture Set 1 [[id number]] Collected: 09/14/171817 Specimen: Blood from Blood, peripheral draw Updated: 09/14/172019 Blood Culture Set 2 [[id number]] Collected: 09/14/171823 Specimen: Blood from Blood, peripheral draw Updated: 09/14/172019 RADIOLOGY: Echo Outside Interpretation Standard Result Date: 09/13/2017 1. Overall left ventricular systolic function is normal with a visually estimated EF of 55% , slightly decreased from the EF of 60-65% on the prior study, done 10/29/13. 2. The right umm tricle is normal in size and function. 3. There is a possible small (3 mm) vegetation on the ventricular surface of the aortic valve, probably the left coronary cusp, but this is not w ell visualized. A TUAN would be helpful, as it would give better resolution of this structur e. PROBLEM LIST Principal Problem: Streptococcal bacteremia Active Problems: Infection due to Streptococcus pyogenes Endocarditis--suspected bacterial Anticoagulated--with xarelto CAD (coronary artery disease) HTN (hypertension) DM (diabetes mellitus) Hyperlipidemia Paroxysmal atrial fibrillation (HCC) Essential hypertension with goal blood pressure less than 130/85 Psoriasis ASSESSMENT & PLAN Streptococcal bacteremia (09/15/2017) Infection due to Streptococcus pyogenes (09/15/2017) Endocarditis--suspected bacterial (09/15/2017) Assessment: Currently await the transesophageal echocardiogram to evaluate for the potent ial of endocarditis. The patient reportedly has bacteremia as per the outside facility. Here blood cultures are currently pending on sure if there was a first negative yet however awai t these to see if they would be. Infectious disease is aware of the patient recommends hernandez nuing vancomycin for now further adjustment pending to progress and results of the transesop hageal echocardiogram. Anticoagulated--with xarelto (09/15/2017) Assessment: As per prior to admission. CAD (coronary artery disease) (04/03/2013) Assessment: Denies chest pain presently. Unknown specific severity of disease. Cardiology to see the patient for transesophageal echocardiogram and further evaluation. HTN (hypertension) (04/03/2013) Essential hypertension with goal blood pressure less than 130/85 (08/12/2016) Assessment: Patient does seem to have ambivalent blood pressures. Unclear if some of this is stress related or other. Continue to follow and adjust regimen as needed. Will order prn IV hydralazine as well Vitals: 09/15/17 0403 09/15/17 0738 09/15/17 0739 09/15/17 1212 BP: 140/72 (!) 200/96 (!) 196/96 146/78 BP Location: Left upper arm Left upper arm Left upper arm Pulse: 75 91 68 Resp: 20 18 16 Temp: 97.6 F (36.4 C) 98.3 F (36.8 C) 97.9 F (36.6 C) TempSrc: Oral Oral Oral SpO2: 100% 96% 97% Weight: Height: DM (diabetes mellitus) (04/03/2013) Assessment: Continue with current regimen for now, follow, and adjust as needed based on progress. Check hemoglobin A1c No results for input(s): HGBA1C in the last 168 hours. Hyperlipidemia (11/15/2013) Assessment: Continue with current regimen for now, follow, and adjust as needed based on progress. Check lipid panel in the a.m. No results for input(s): CHOL, TRIG, HDL, LDL in the last 168 hours. Paroxysmal atrial fibrillation (HCC) (08/12/2016) Assessment: Rate controlled anticoagulated continue to follow and adjust regimen as neede d. Vitals: 09/15/17 0403 09/15/17 0738 09/15/17 0739 09/15/17 1212 BP: 140/72 (!) 200/96 (!) 196/96 146/78 BP Location: Left upper arm Left upper arm Left upper arm Pulse: 75 91 68 Resp: 18 16 Temp: 97.6 F (36.4 C) 98.3 F (36.8 C) 97.9 F (36.6 C) TempSrc: Oral Oral Oral SpO2: 100% 96% 97% Weight: Height: Psoriasis (09/15/2017) Assessment: On otezla in the outpatient setting. RANGEL BRIGHT MD 09/15/2017 3:52 PM Greater than 35 minutes spent today overall in coordination of care, seeing and managing pa tient, review of data, coordination with staff, coordination with involved consultants, and including any scheduled multidisciplinary rounding focused on the patient with 50 percent or more spent seeing and managing patient and counseling/coordination. Dictation software, Dealised, used which may contain error for similar sounding words even af ter review. Personal communication requested for any clarification. Portions of this chart may have been copied from previous notes for continuity of care purp ose onversion Transac tion, Provider Unknown - 09/15/2017 3:02 PM PDTFormatting of this note might be different f rom the original. Case Management by Marlyn Patterson RN at 09/15/17 1502 Author: Marlyn Patterson RN Service: (none) Author Type: Registered Nurse Filed: 09/15/17 1510 Date of Service: 09/15/171501 Status: Signed Registered Phlebotomist Part Time: Marlyn Patterson RN (Registered Nurse) 09/15/17 1500 Discharge Planning Evaluation Admitting Diagnosis endocarditis Readmission No Living Arrangements Family members;Friends Support Systems Family members;Friends/neighbors Type of Residence Private residence Independent with ADL's Yes Independent with Mobility Yes Home Care Services No Caregiver after Discharge No Mental Status Oriented Prior functional status indep Resources Financial concerns No Transportation issues No Vascular access device No Anticipated Disposition Facility Type Home Met with pt and friends and discussed discharge planning, Pt is a 52 y.o., male. Pt lives i n [place] with family/friends and states he is indep with all his ADL's. No use of home O2 , no dme, no HD. Pt has been on Xarelto only. Pt plans to retrurn home. Pt's physical address is : [address] [place] [address] [address] Patient's PCP is: [facility] Patient's insurance: [facility] Coverage concerns: Medication coverage/concerns: Rx Bedside Delivery: [facility] resources utilized / needed: tbd Assistance in transportation: family Identification of any specific education / training: tbd Barriers to Discharge / Alternative housing needed: tbd Anticipated DCP: home Carolyn Patterson RN CM onver jennifer Transaction, Provider Unknown - 09/14/2017 8:33 PM PDT Progress Notes by Debbie Perez RPH at 09/14/172032 Author: Debbie Perez RPH Service: Pharmacy Author Type: Pharmacist Filed: 09/14/172032 Date of Service: 09/14/172032 Status: Signed Registered Phlebotomist Part Time: Debbie Perez RPH (Pharmacist) Initiation of Vancomycin Pharmacy Dosing Live Robertson 52 y.o. male 1.803 m (5' 10.98") 91.5 kg (201 lb 11.5 oz) Body mass index is 28.15 kg/m. SCr (from [facility], 09/14/2017): 0.94mg/dL Est CrCl: ~100mL/min WBC (from [facility], 09/14/2017): 11.5K/uL Indications: Sepsis From provider note on 09/14/2017: "Blood cultures grew Strep pyogenes and an echo was perfo rmed which showed a possible vegetation on her aortic valve measuring 3mm and hence he is tr ansferred for TUAN and infectious disease consultation." Dose per Protocol: Dose: Vancomycin 1500 mg (16.4mg/kg TBW) IV Q12H with next dose scheduled for 09/15/2017 at 0100. Patient is continuing therapy started at [facility] on 09/10/2017 with regimen of 1500mg IVPB Q12H. Trough obtained on 09/14/2017 at 1130 = 16.8mL/min with last vancomycin dose administered on 09/14/2017 at 1300. Since trough is therapeutic for sepsis indication, will continue with current regimen. Vancomycin Trough Due: 09/16/2017 at 1200 Goal Trough for Vancomycin: 15-20 mcg/mL Pharmacist: Debbie Perez 09/14/2017 8:25 PM onver jennifer Shankaraction, Provider Unknown - 09/14/2017 6:41 PM PDT Progress Notes by Debbie Perez RPH at 09/14/171840 Author: Debbie Perez RPH Service: Pharmacy Author Type: Pharmacist Filed: 09/14/171840 Date of Service: 09/14/171840 Status: Signed Registered Phlebotomist Part Time: Debbie Perez RPH (Pharmacist) Clinical Pharmacy Note: Renal Monitoring Live Robertson 52 y.o. male Ht Readings from Last 1 Encounters: 09/14/17 1.803 m (5' 11") Wt Readings from Last 1 Encounters: 09/14/17 91.5 kg (201 lb 11.5 oz) SCr (from [facility] on 09/14/2017) = 0.94mg/dL Est CrCl ~ 100mL/min Pharmacy dosing for renal function per Dr. Kumar. Currently, there are no medications needing to be adjusted. Pharmacy will continue to monit or for changes in medication orders and in renal function and adjust accordingly. Debbie Perez PharmD 09/14/2017 6:40 PM Gifty terrell in this encounter Plan of Treatment [...] | | | | | [place] [id number] | | | | | | [phone] | | | | | | | | +--------+---------+ + + + documented as of this encounter Procedures + +--------+ + + + | Procedure Name | Priori | Date/Time | Associated Diagnosis | Comments | | | ty | | | | + +--------+ + + + | POC GLUCOSE | Routin | 09/17/2017 | | Results for this | | | e | 5:40 AM | | procedure are in the | | | | PDT | | results section. | + +--------+ + + + | EXTERNAL LAB: CBC | Routin | 09/17/2017 | | Results for this | | | e | 4:57 AM | | procedure are in the | | | | PDT | | results section. | + +--------+ + + + | MAGNESIUM | Routin | 09/17/2017 | | Results for this | | | e | 4:57 AM | | procedure are in the | | | | PDT | | results section. | + +--------+ + + + | RENAL FUNCTION PANEL | Routin | 09/17/2017 | | Results for this | | | e | 4:57 AM | | procedure are in the | | | | PDT | | results section. | + +--------+ + + + | POC GLUCOSE | Routin | 09/16/2017 | | Results for this | | | e | 9:27 PM | | procedure are in the | | | | PDT | | results section. | + +--------+ + + + | POC GLUCOSE | Routin | 09/16/2017 | | Results for this | | | e | 5:56 PM | | procedure are in the | | | | PDT | | results section. | + +--------+ + + + | VANCOMYCIN, TROUGH | Routin | 09/16/2017 | | Results for this | | | e | 11:52 AM | | procedure are in the | | | | PDT | | results section. | + +--------+ + + + | POC GLUCOSE | Routin | 09/16/2017 | | Results for this | | | e | 11:22 AM | | procedure are in the | | | | PDT | | results section. | + +--------+ + + + | POC GLUCOSE | Routin | 09/16/2017 | | Results for this | | | e | 5:25 AM | | procedure are in the | | | | PDT | | results section. | + +--------+ + + + | EXTERNAL LAB: CBC | Routin | 09/16/2017 | | Results for this | | | e | 5:18 AM | | procedure are in the | | | | PDT | | results section. | + +--------+ + + + | LIPID PANEL | Routin | 09/16/2017 | | Results for this | | | e | 5:18 AM | | procedure are in the | | | | PDT | | results section. | + +--------+ + + + | SEDIMENTATION RATE, | Routin | 09/16/2017 | | Results for this | | AUTOMATED | e | 5:18 AM | | procedure are in the | | | | PDT | | results section. | + +--------+ + + + | C-REACTIVE PROTEIN | Routin | 09/16/2017 | | Results for this | | | e | 5:18 AM | | procedure are in the | | | | PDT | | results section. | + +--------+ + + + | MAGNESIUM | Routin | 09/16/2017 | | Results for this | | | e | 5:18 AM | | procedure are in the | | | | PDT | | results section. | + +--------+ + + + | HEMOGLOBIN A1C | Routin | 09/16/2017 | | Results for this | | | e | 5:18 AM | | procedure are in the | | | | PDT | | results section. | + +--------+ + + + | RENAL FUNCTION PANEL | Routin | 09/16/2017 | | Results for this | | | e | 5:18 AM | | procedure are in the | | | | PDT | | results section. | + +--------+ + + + | POC GLUCOSE | Routin | 09/15/2017 | | Results for this | | | e | 9:24 PM | | procedure are in the | | | | PDT | | results section. | + +--------+ + + + | ECHO TRANSESOPHAGEAL | Routin | 09/15/2017 | | Results for this | | (TUAN) | e | 5:21 PM | | procedure are in the | | | | PDT | | results section. | + +--------+ + + + | POC GLUCOSE | Routin | 09/15/2017 | | Results for this | | | e | 4:52 PM | | procedure are in the | | | | PDT | | results section. | + +--------+ + + + | POC GLUCOSE | Routin | 09/15/2017 | | Results for this | | | e | 12:16 PM | | procedure are in the | | | | PDT | | results section. | + +--------+ + + + | EXTERNAL LAB: CBC | Routin | 09/15/2017 | | Results for this | | | e | 5:42 AM | | procedure are in the | | | | PDT | | results section. | + +--------+ + + + | PHOSPHORUS | Routin | 09/15/2017 | | Results for this | | | e | 5:42 AM | | procedure are in the | | | | PDT | | results section. | + +--------+ + + + | MAGNESIUM | Routin | 09/15/2017 | | Results for this | | | e | 5:42 AM | | procedure are in the | | | | PDT | | results section. | + +--------+ + + + | BASIC METABOLIC | Routin | 09/15/2017 | | Results for this | | PANEL | e | 5:42 AM | | procedure are in the | | | | PDT | | results section. | + +--------+ + + + | POC GLUCOSE | Routin | 09/15/2017 | | Results for this | | | e | 5:28 AM | | procedure are in the | | | | PDT | | results section. | + +--------+ + + + | POC GLUCOSE | Routin | 09/14/2017 | | Results for this | | | e | 9:24 PM | | procedure are in the | | | | PDT | | results section. | + +--------+ + + + | CULTURE, BLOOD, 2ND | Timed | 09/14/2017 | | Results for this | | SPECIMEN (NON-ORD) | | 6:24 PM | | procedure are in the | | | | PDT | | results section. | + +--------+ + + + | CULTURE, BLOOD | Timed | 09/14/2017 | | Results for this | | | | 6:18 PM | | procedure are in the | | | | PDT | | results section. | + +--------+ + + + | POC GLUCOSE | Routin | 09/14/2017 | | Results for this | | | e | 5:18 PM | | procedure are in the | | | | PDT | | results section. | + +--------+ + + + documented in this encounter Results POC Glucose (09/17/2017 5:40 AM PDT) + + + + + + | Component | Value | Ref Range | Performed | Pathologist | | | | | At | Signature | + + + + + + | Glucose, | 98Comment: Testing | 65 - 99 mg/dL | EXTERNAL | | | Fingerstick | performed at [facility];[address] | | LAB | | | | [address] [facility];[place], [place] | | | | | | [address] | | | | + + + + + + + + | Specimen | + + | | + + + +---------+ + + | Performing | Address | City/State/Zipcode | Phone Number | | Organization | | | | + +---------+ + + | EXTERNAL LAB | | | | + +---------+ + + External Lab: CBC (09/17/2017 4:57 AM PDT) + + + + + + | Component | Value | Ref Range | Performed | Pathologist | | | | | At | Signature | + + + + + + | WBC | 11.66 (H) | 3.80 - 11.00 | EXTERNAL | | | | | K/uL | LAB | | + + + + + + | RED CELL | 4.25 | 4.20 - 5.70 | EXTERNAL | | | COUNT | | M/uL | LAB | | + + + + + + | Hgb | 12.8 (L) | 13.2 - 17.0 | EXTERNAL | | | | | g/dL | LAB | | + + + + + + | Hematocrit, | 36.6 (L) | 39.0 - 50.0 % | EXTERNAL | | | POC | | | LAB | | + + + + + + | MCV | 86.2 | 80.0 - 100.0 fl | EXTERNAL | | | | | | LAB | | + + + + + + | MCH | 30.2 | 27.0 - 34.0 pg | EXTERNAL | | | | | | LAB | | + + + + + + | MCHC | 35.1 | 32.0 - 35.5 | EXTERNAL | | | | | g/dL | LAB | | + + + + + + | RDW-CV | 42.0 | 37 - 53 fl | EXTERNAL | | | | | | LAB | | + + + + + + | Platelet | 285 | 150 - 400 K/uL | EXTERNAL | | | Count | | | LAB | | | Plasma | | | | | + + + + + + | MPV | 7.2 | fl | EXTERNAL | | | | | | LAB | | + + + + + + | Differentia | AUTOMATED | | EXTERNAL | | | l Type | | | LAB | | + + + + + + | % Segmented | 72.46 | % | EXTERNAL | | | | | | LAB | | | Neutrophils | | | | | + + + + + + | % | 11.77 | % | EXTERNAL | | | Lymphocytes | | | LAB | | + + + + + + | % Monocytes | 10.82 | % | EXTERNAL | | | | | | LAB | | + + + + + + | % | 4.17 | % | EXTERNAL | | | Eosinophils | | | LAB | | + + + + + + | % Basophils | 0.78 | % | EXTERNAL | | | | | | LAB | | + + + + + + | Absolute | 8.45 (H) | 1.90 - 7.40 | EXTERNAL | | | Segmented | | K/uL | LAB | | | Neutrophils | | | | | + + + + + + | Absolute | 1.37 | 1.00 - 3.90 | EXTERNAL | | | Lymphocytes | | K/uL | LAB | | + + + + + + | Absolute | 1.26 (H) | 0.00 - 0.80 | EXTERNAL | | | Monocytes | | K/uL | LAB | | + + + + + + | Absolute | 0.49 | 0.00 - 0.50 | EXTERNAL | | | Eosinophils | | K/uL | LAB | | + + + + + + | Absolute | 0.09Comment: Testing | 0.00 - 0.10 | EXTERNAL | | | Basophils | performed at [facility], [address] | [address] | LAB | | | | [address], | | | | | | [place] [address] | | | | + + + + + + + + | Specimen | + + | Blood specimen | | (specimen) | + + + +---------+ + + | Performing | Address | City/State/Zipcode | Phone Number | | Organization | | | | + +---------+ + + | EXTERNAL LAB | | | | + +---------+ + + Magnesium (09/17/2017 4:57 AM PDT) + + + + + + | Component | Value | Ref Range | Performed | Pathologist | | | | | At | Signature | + + + + + + | Magnesium | 2.0Comment: Testing | 1.7 - 2.4 mg/dL | EXTERNAL | | | | performed at [facility], [address] | | LAB | | | | [address], | | | | | | [place] [address] | | | | + + + + + + + + | Specimen | + + | Blood specimen | | (specimen) | + + + +---------+ + + | Performing | Address | City/State/Zipcode | Phone Number | | Organization | | | | + +---------+ + + | EXTERNAL LAB | | | | + +---------+ + + Renal Function Panel (09/17/2017 4:57 AM PDT) + + + + + + | Component | Value | Ref Range | Performed | Pathologist | | | | | At | Signature | + + + + + + | Na | 143 | 135 - 145 | EXTERNAL | | | | | mmol/L | LAB | | + + + + + + | K | 3.9 | 3.5 - 4.9 | EXTERNAL | | | | | mmol/L | LAB | | + + + + + + | Cl | 111 (H) | 99 - 109 mmol/L | EXTERNAL | | | | | | LAB | | + + + + + + | CO2 | 22 (L) | 23 - 32 mmol/L | EXTERNAL | | | | | | LAB | | + + + + + + | Anion Gap | 14 | 5 - 20 mmol/L | EXTERNAL | | | | | | LAB | | + + + + + + | Glucose, | 91 | 65 - 99 mg/dL | EXTERNAL | | | Fasting | | | LAB | | + + + + + + | BUN | 17 | 8 - 25 mg/dL | EXTERNAL | | | | | | LAB | | + + + + + + | Creatinine | 1.2 | 0.70 - 1.30 | EXTERNAL | | | | | mg/dL | LAB | | + + + + + + | Calcium | 8.6 | 8.5 - 10.5 | EXTERNAL | | | | | mg/dL | LAB | | + + + + + + | Albumin | 2.1 (L) | 3.6 - 5.0 g/dL | EXTERNAL | | | | | | LAB | | + + + + + + | PHOSPHORUS | 3.3 | 2.3 - 4.8 mg/dL | EXTERNAL | | | | | | LAB | | + + + + + + | Estimated | >60Comment: GFR <60: | mL/min/1.73m2 | EXTERNAL | | | GFR | CHRONIC KIDNEY DISEASE, | | LAB | | | | IF FOUND OVER A 3 MONTH | | | | | | PERIOD.GFR <15: KIDNEY | | | | | | FAILURE.FOR | | | | | | AMERICANS, MULTIPLY THE | | | | | | CALCULATED GFR BY | | | | | | 1.210.Testing performed | | | | | | at [facility], [address] | | | | | | [address], | | | | | | [place] [address] | | | | + + + + + + + + | Specimen | + + | | + + + +---------+ + + | Performing | Address | City/State/Zipcode | Phone Number | | Organization | | | | + +---------+ + + | EXTERNAL LAB | | | | + +---------+ + + POC Glucose (09/16/2017 9:27 PM PDT) + + + + + + | Component | Value | Ref Range | Performed | Pathologist | | | | | At | Signature | + + + + + + | Glucose, | 147 (H)Comment: Testing | 65 - 99 mg/dL | EXTERNAL | | | Fingerstick | performed at [facility];[address] | | LAB | | | | [address];[place] | | | | | | [address] | | | | + + + + + + + + | Specimen | + + | | + + + +---------+ + + | Performing | Address | City/State/Zipcode | Phone Number | | Organization | | | | + +---------+ + + | EXTERNAL LAB | | | | + +---------+ + + POC Glucose (09/16/2017 5:56 PM PDT) + + + + + + | Component | Value | Ref Range | Performed | Pathologist | | | | | At | Signature | + + + + + + | Glucose, | 116 (H)Comment: Testing | 65 - 99 mg/dL | EXTERNAL | | | Fingerstick | performed at [facility];[address] | | LAB | | | | [address];[place] | | | | | | [address] | | | | + + + + + + + + | Specimen | + + | | + + + +---------+ + + | Performing | Address | City/State/Zipcode | Phone Number | | Organization | | | | + +---------+ + + | EXTERNAL LAB | | | | + +---------+ + + Vancomycin, Trough (09/16/2017 11:52 AM PDT) + + + + + + | Component | Value | Ref Range | Performed | Pathologist | | | | | At | Signature | + + + + + + | Vancomycin | 24.5 ()Comment: 15 to | 10 - 20 ug/mL | EXTERNAL | | | Trough | 20 ug/mL for meningitis, | | LAB | | | | osteomyelitis, | | | | | | endocarditis, sepsis, or | | | | | | healthcare associated | | | | | | pneumonia, or an STEPHIE | | | | | | equal to or greater than | | | | | | 1.0 ug/mLRESULT READ | | | | | | BACK BY:ROCAEL PAREDES M/YoP ON | | | | | | [id number] @1226 | | | | | | NSTesting performed at | | | | | | [facility];[address] [place] [address] | | | | | | Bl;[place] [address] | | | | + + + + + + + + | Specimen | + + | Blood specimen | | (specimen) | + + + +---------+ + + | Performing | Address | City/State/Zipcode | Phone Number | | Organization | | | | + +---------+ + + | EXTERNAL LAB | | | | + +---------+ + + POC Glucose (09/16/2017 11:22 AM PDT) + + + + + + | Component | Value | Ref Range | Performed | Pathologist | | | | | At | Signature | + + + + + + | Glucose, | 154 (H)Comment: Testing | 65 - 99 mg/dL | EXTERNAL | | | Fingerstick | performed at [facility];[address] | | LAB | | | | [address];[place], [place] | | | | | | [address] | | | | + + + + + + + + | Specimen | + + | | + + + +---------+ + + | Performing | Address | City/State/Zipcode | Phone Number | | Organization | | | | + +---------+ + + | EXTERNAL LAB | | | | + +---------+ + + POC Glucose (09/16/2017 5:25 AM PDT) + + + + + + | Component | Value | Ref Range | Performed | Pathologist | | | | | At | Signature | + + + + + + | Glucose, | 82Comment: Testing | 65 - 99 mg/dL | EXTERNAL | | | Fingerstick | performed at [facility];[address] | | LAB | | | | [address];[place] | | | | | | [address] | | | | + + + + + + + + | Specimen | + + | | + + + +---------+ + + | Performing | Address | City/State/Zipcode | Phone Number | | Organization | | | | + +---------+ + + | EXTERNAL LAB | | | | + +---------+ + + Sedimentation rate, automated (09/16/2017 5:18 AM PDT) + + + + + + | Component | Value | Ref Range | Performed | Pathologist | | | | | At | Signature | + + + + + + | Sed Rate | 49 (H)Comment: Testing | 0 - 20 mm/Hr | EXTERNAL | | | | performed at [facility], [address] | | LAB | | | | [address], | | | | | | [place] [address] | | | | + + + [...] + +---------+ + + External Lab: CBC (09/16/2017 5:18 AM PDT) + + + + + + | Component | Value | Ref Range | Performed | Pathologist | | | | | At | Signature | + + + + + + | WBC | 11.19 (H) | 3.80 - 11.00 | EXTERNAL | | | | | K/uL | LAB | | + + + + + + | RED CELL | 4.17 (L) | 4.20 - 5.70 | EXTERNAL | | | COUNT | | M/uL | LAB | | + + + + + + | Hgb | 12.4 (L) | 13.2 - 17.0 | EXTERNAL | | | | | g/dL | LAB | | + + + + + + | Hematocrit, | 35.8 (L) | 39.0 - 50.0 % | EXTERNAL | | | POC | | | LAB | | + + + + + + | MCV | 86.0 | 80.0 - 100.0 fl | EXTERNAL | | | | | | LAB | | + + + + + + | MCH | 29.7 | 27.0 - 34.0 pg | EXTERNAL | | | | | | LAB | | + + + + + + | MCHC | 34.5 | 32.0 - 35.5 | EXTERNAL | | | | | g/dL | LAB | | + + + + + + | RDW-CV | 42.0 | 37 - 53 fl | EXTERNAL | | | | | | LAB | | + + + + + + | Platelet | 289 | 150 - 400 K/uL | EXTERNAL | | | Count | | | LAB | | | Plasma | | | | | + + + + + + | MPV | 7.2 | fl | EXTERNAL | | | | | | LAB | | + + + + + + | Differentia | AUTOMATED | | EXTERNAL | | | l Type | | | LAB | | + + + + + + | % Segmented | 72.42 | % | EXTERNAL | | | | | | LAB | | | Neutrophils | | | | | + + + + + + | % | 13.16 | % | EXTERNAL | | | Lymphocytes | | | LAB | | + + + + + + | % Monocytes | 10.21 | % | EXTERNAL | | | | | | LAB | | + + + + + + | % | 3.44 | % | EXTERNAL | | | Eosinophils | | | LAB | | + + + + + + | % Basophils | 0.77 | % | EXTERNAL | | | | | | LAB | | + + + + + + | Absolute | 8.10 (H) | 1.90 - 7.40 | EXTERNAL | | | Segmented | | K/uL | LAB | | | Neutrophils | | | | | + + + + + + | Absolute | 1.47 | 1.00 - 3.90 | EXTERNAL | | | Lymphocytes | | K/uL | LAB | | + + + + + + | Absolute | 1.14 (H) | 0.00 - 0.80 | EXTERNAL | | | Monocytes | | K/uL | LAB | | + + + + + + | Absolute | 0.39 | 0.00 - 0.50 | EXTERNAL | | | Eosinophils | | K/uL | LAB | | + + + + + + | Absolute | 0.09Comment: Testing | 0.00 - 0.10 | EXTERNAL | | | Basophils | performed at [facility], [address] | [address] | LAB | | | | [address], | | | | | | [place] [address] | | | | + + + + + + + + | Specimen | + + | Blood specimen | | (specimen) | + + + +---------+ + + | Performing | Address | City/State/Zipcode | Phone Number | | Organization | | | | + +---------+ + + | EXTERNAL LAB | | | | + +---------+ + + C-Reactive Protein (09/16/2017 5:18 AM PDT) + + + + + + | Component | Value | Ref Range | Performed | Pathologist | | | | | At | Signature | + + + + + + | CRP | 1.2 (H)Comment: Testing | mg/dL | EXTERNAL | | | | performed at [facility], [address] | | LAB | | | | [address], | | | | | | [place] [address] | | | | + + + + + + + + | Specimen | + + | Blood specimen | | (specimen) | + + + +---------+ + + | Performing | Address | City/State/Zipcode | Phone Number | | Organization | | | | + +---------+ + + | EXTERNAL LAB | | | | + +---------+ + + Magnesium (09/16/2017 5:18 AM PDT) + + + + + + | Component | Value | Ref Range | Performed | Pathologist | | | | | At | Signature | + + + + + + | Magnesium | 2.0Comment: Testing | 1.7 - 2.4 mg/dL | EXTERNAL | | | | performed at [facility], [address] | | LAB | | | | [address], | | | | | | [place] [address] | | | | + + + + + + + + | Specimen | + + | Blood specimen | | (specimen) | + + + +---------+ + + | Performing | Address | City/State/Zipcode | Phone Number | | Organization | | | | + +---------+ + + | EXTERNAL LAB | | | | + +---------+ + + Hemoglobin A1C (09/16/2017 5:18 AM PDT) + + + + + + | Component | Value | Ref Range | Performed | Pathologist | | | | | At | Signature | + + + + + + | Hemoglobin | 7.3 (H)Comment: The | 4.0 - 6.0 % | EXTERNAL | | | A1c | [employer] | | LAB | | | | Association considers a | | | | | | hemoglobin A1c result of | | | | | | <7.0% to be the goal of | | | | | | diabetic therapy. | | | | | | When results are | | | | | | consistently >8.0%, the | | | | | | ADA suggests | | | | | | reevaluation of the | | | | | | treatment regimen. The | | | | | | testing method used is | | | | | | certified traceable to | | | | | | the Diabetes Control and | | | | | | Complications Trial | | | | | | reference method. | | | | + + + + + + | Glycohemogl | 163Comment: The ADA | mg/dL | EXTERNAL | | | obin | considers an eAG result | | LAB | | | (GHb),Total | of LT 154 mg/dL to be | | | | | | the goal of diabetic | | | | | | therapy. Estimated | | | | | | Average Glucose | | | | | | calculated from | | | | | | hemoglobin A1c by use of | | | | | | the ADA recommended | | | | | | formula.Testing | | | | | | performed at [facility], [address] | | | | | | [facility], | | | | | | [place], [place] [address] | | | | + + + + + + + + | Specimen | + + | Blood specimen | | (specimen) | + + + +---------+ + + | Performing | Address | City/State/Zipcode | Phone Number | | Organization | | | | + +---------+ + + | EXTERNAL LAB | | | | + +---------+ + + Renal Function Panel (09/16/2017 5:18 AM PDT) + + + + + + | Component | Value | Ref Range | Performed | Pathologist | | | | | At | Signature | + + + + + + | Na | 142 | 135 - 145 | EXTERNAL | | | | | mmol/L | LAB | | + + + + + + | K | 3.9 | 3.5 - 4.9 | EXTERNAL | | | | | mmol/L | LAB | | + + + + + + | Cl | 109 | 99 - 109 mmol/L | EXTERNAL | | | | | | LAB | | + + + + + + | CO2 | 26 | 23 - 32 mmol/L | EXTERNAL | | | | | | LAB | | + + + + + + | Anion Gap | 11 | 5 - 20 mmol/L | EXTERNAL | | | | | | LAB | | + + + + + + | Glucose, | 86 | 65 - 99 mg/dL | EXTERNAL | | | Fasting | | | LAB | | + + + + + + | BUN | 18 | 8 - 25 mg/dL | EXTERNAL | | | | | | LAB | | + + + + + + | Creatinine | 1.2 | 0.70 - 1.30 | EXTERNAL | | | | | mg/dL | LAB | | + + + + + + | Calcium | 8.4 (L) | 8.5 - 10.5 | EXTERNAL | | | | | mg/dL | LAB | | + + + + + + | Albumin | 2.1 (L) | 3.6 - 5.0 g/dL | EXTERNAL | | | | | | LAB | | + + + + + + | PHOSPHORUS | 3.2 | 2.3 - 4.8 mg/dL | EXTERNAL | | | | | | LAB | | + + + + + + | Estimated | >60Comment: GFR <60: | mL/min/1.73m2 | EXTERNAL | | | GFR | CHRONIC KIDNEY DISEASE, | | LAB | | | | IF FOUND OVER A 3 MONTH | | | | | | PERIOD.GFR <15: KIDNEY | | | | | | FAILURE.FOR | | | | | | AMERICANS, MULTIPLY THE | | | | | | CALCULATED GFR BY | | | | | | 1.210.Testing performed | | | | | | at [facility], [address] | | | | | | [address], | | | | | | [place] [address] | | | | + + + + + + + + | Specimen | + + | | + + + +---------+ + + | Performing | Address | City/State/Zipcode | Phone Number | | Organization | | | | + +---------+ + + | EXTERNAL LAB | | | | + +---------+ + + Lipid Panel (09/16/2017 5:18 AM PDT) + + + + + + | Component | Value | Ref Range | Performed | Pathologist | | | | | At | Signature | + + + + + + | Cholesterol | 84 | mg/dL | EXTERNAL | | | | | | LAB | | + + + + + + | Triglycerid | 116 | mg/dL | EXTERNAL | | | es | | | LAB | | + + + + + + | HDL | 33 (L) | mg/dL | EXTERNAL | | | | | | LAB | | + + + + + + | LDL | 28Comment: Testing | mg/dL | EXTERNAL | | | Cholesterol | performed at [facility], [address] | | LAB | | | , | [address], | | | | | Calculated, | [place] [address] | | | | | External | [...] | + +---------+ + + POC Glucose (09/15/2017 9:24 PM PDT) + + + + + + | Component | Value | Ref Range | Performed | Pathologist | | | | | At | Signature | + + + + + + | Glucose, | 173 (H)Comment: Testing | 65 - 99 mg/dL | EXTERNAL | | | Fingerstick | performed at [facility] | | LAB | | | | [address];[place], [place] | | | | | | [address] | | | | + + + + + + + + | Specimen | + + | | + + + +---------+ + + | Performing | Address | City/State/Zipcode | Phone Number | | Organization | | | | + +---------+ + + | EXTERNAL LAB | | | | + +---------+ + + ECHO Transesophageal (TUAN) (09/15/2017 5:21 PM PDT) + + | Specimen | + + | | + + + + + | Impressions | Performed At | + + + | 1. LV size, wall thickness and systolic function are normal, with an | | | EF > 60%. 2. The right ventricle is normal in size and function. 3. | | | No vegetation seen on this examination. 4. The pericardium is | | | normal. | | + + + + + + | Narrative | Performed At | + + + | Patient Name: LIVE ROBERTSON Date of : 1965 | | | Performing Physician: Joon Red | | | | | | INDICATIONS endocarditis CONCLUSIONS | | | 1. LV size, wall thickness and systolic function are normal, with an | | | EF > 60%. 2. The right ventricle is normal in size and function. 3. | | | No vegetation seen on this examination. 4. The pericardium is normal. | | | FINDINGS -------- Procedure: Transesophageal echocardiogram | | | with spectral and color flow Doppler was performed. Procedure: The | | | patient was in the fasting state. Informed consent was obtained | | | after benefits and risks of the procedure were discussed with the | | | patient including but not limited to the potential for esophageal | | | puncture and . The oropharynx was anesthetized with 1% | | | Hurricane spray. After conscious sedation, the transesophageal probe | | | was advanced and placed in the esophagus and multiple projections of | | | the cardiovascular structures were acquired and recorded. This was | | | followed by advancement of the probe into the stomach for | | | transgastric imaging. Finally, interrogation of the descending aorta | | | and arch was performed. The probe was removed. The patient | | | tolerated the procedure well. There were no immediate | | | complications. 2 D, pulsed and continuous wave form and color | | | images were interpreted in real time. Medications: 2 mg of Versed and | | | Medications: 100 mcg of Fentanyl was given intraveonously for | | | conscious sedation. Medications: Total sedation time was 10 mins. | | | Study quality: This was a technically adequate study. Left Ventricle: | | | LV size, wall thickness and systolic function are normal, with an EF | | | > 60%. Left Atrium: The left atrium is normal in size and function. | | | Left Atrium: Normal left atrial appendage without evidence for | | | thrombi. Right Ventricle: The right ventricle is normal in size and | | | function. Right Atrium: The right atrium is normal in size and | | | function. Interatrial Septum: Evidence for small patent foramen ovale | | | present color doppler study. Interatrial Septum: No right to left | | | shunt seen with bubble study. Aortic Valve: The aortic valve is | | | trileaflet and appears structurally normal. Aortic Valve: Trace | | | amount of aortic regurgitation. Mitral Valve: The mitral valve is | | | normal. Mitral Valve: Mild mitral regurgitation is present. | | | Tricuspid Valve: The tricuspid valve appears structurally normal. | | | Tricuspid Valve: Trace tricuspid regurgitation present. Pulmonic | | | Valve: The pulmonic valve is normal. Pulmonic Valve: Trace/mild | | | (physiologic) pulmonic regurgitation. Mass: No vegetation seen on | | | this examination. Pericardium: The pericardium is normal. | | | MEASUREMENTS Labor Crew Supervisor: YOAN Authenticated by: | | | Joon [facility] Report Date/Time: 09-15-2017 21:22:37 | | + + + + + | Procedure Note | + + | Hung Pagan Conversion - 12/06/2018 4:36 AM PDT Patient Name: Sriram ROBERTSON | | of : 1965 Performing Physician: oJon | | Teofilo INDICATIONS------ | | -----endocarditis CONCLUSIONS 1. LV size, wall thickness and systolic function | | are normal, with an EF > 60%.2. The right ventricle is normal in size and function.3. | | No vegetation seen on this examination.4. The pericardium is normal. | | FINDINGS--------Procedure: Transesophageal echocardiogram with spectral and color flow | | Doppler was performed.Procedure: The patient was in the fasting state. Informed consent | | was obtained after benefits and risks of the procedure were discussed with the patient | | including but not limited to the potential for esophageal puncture and . The | | oropharynx was anesthetized with 1% Hurricane spray. After conscious sedation, the | | transesophageal probe was advanced and placed in the esophagus and multiple projections | | of the cardiovascular structures were acquired and recorded. This was followed by | | advancement of the probe into the stomach for transgastric imaging. Finally, | | interrogation of the descending aorta and arch was performed. The probe was removed. | | The patient tolerated the procedure well. There were no immediate complications. 2 | | D, pulsed and continuous wave form and color images were interpreted in real | | time.Medications: 2 mg of Versed andMedications: 100 mcg of Fentanyl was given | | intraveonously for conscious sedation.Medications: Total sedation time was 10 mins.Study | | quality: This was a technically adequate study.Left Ventricle: LV size, wall thickness | | and systolic function are normal, with an EF > 60%.Left Atrium: The left atrium is | | normal in size and function.Left Atrium: Normal left atrial appendage without evidence | | for thrombi.Right Ventricle: The right ventricle is normal in size and function.Right | | Atrium: The right atrium is normal in size and function.Interatrial Septum: Evidence for | | small patent foramen ovale present color doppler study.Interatrial Septum: No right to | | left shunt seen with bubble study.Aortic Valve: The aortic valve is trileaflet and | | appears structurally normal.Aortic Valve: Trace amount of aortic regurgitation.Mitral | | Valve: The mitral valve is normal.Mitral Valve: Mild mitral regurgitation is | | present.Tricuspid Valve: The tricuspid valve appears structurally normal.Tricuspid | | Valve: Trace tricuspid regurgitation present.Pulmonic Valve: The pulmonic valve is | | normal.Pulmonic Valve: Trace/mild (physiologic) pulmonic regurgitation.Mass: No | | vegetation seen on this examination.Pericardium: The pericardium is normal. | | MEASUREMENTS Labor Crew Supervisor: ASHLYNuthenticated by: Joon Dougherty | | Date/Time: 09-15-2017 21:22:37 IMPRESSION: 1. LV size, wall thickness and systolic | | function are normal, with an EF > 60%.2. The right ventricle is normal in size and | | function.3. No vegetation seen on this examination.4. The pericardium is normal. | |Right Atrium: The right atrium is normal in size and function. | |Interatrial Septum: Evidence for small patent foramen ovale present color doppler study. | |Interatrial Septum: No right to left shunt seen with bubble study. | |Aortic Valve: The aortic valve is trileaflet and appears structurally normal. | |Aortic Valve: Trace amount of aortic regurgitation. | |Mitral Valve: The mitral valve is normal. | |Mitral Valve: Mild mitral regurgitation is present. | |Tricuspid Valve: The tricuspid valve appears structurally normal. | |Tricuspid Valve: Trace tricuspid regurgitation present. | |Pulmonic Valve: The pulmonic valve is normal. | |Pulmonic Valve: Trace/mild (physiologic) pulmonic regurgitation. | |Mass: No vegetation seen on this examination. | |Pericardium: The pericardium is normal. | | | |MEASUREMENTS | | | | | |Labor Crew Supervisor: YOAN | |Authenticated by: Joon Red | |Report Date/Time: 09-15-2017 21:22:37 | | | |IMPRESSION: | |1. LV size, wall thickness and systolic function are normal, with an EF > 60%. | |2. The right ventricle is normal in size and function. | |3. No vegetation seen on this examination. | |4. The pericardium is normal. | + + POC Glucose (09/15/2017 4:52 PM PDT) + + + + + + | Component | Value | Ref Range | Performed | Pathologist | | | | | At | Signature | + + + + + + | Glucose, | 71Comment: Testing | 65 - 99 mg/dL | EXTERNAL | | | Fingerstick | performed at [facility];[address] | | LAB | | | | [facility];[place], [place] | | | | | | [address] | | | | + + + + + + + + | Specimen | + + | | + + + +---------+ + + | Performing | Address | City/State/Zipcode | Phone Number | | Organization | | | | + +---------+ + + | EXTERNAL LAB | | | | + +---------+ + + POC Glucose (09/15/2017 12:16 PM PDT) + + + + + + | Component | Value | Ref Range | Performed | Pathologist | | | | | At | Signature | + + + + + + | Glucose, | 88Comment: Testing | 65 - 99 mg/dL | EXTERNAL | | | Fingerstick | performed at [facility];[address] | | LAB | | | | [address];[place], [place] | | | | | | [address] | | | | + + + + + + + + | Specimen | + + | | + + + +---------+ + + | Performing | Address | City/State/Zipcode | Phone Number | | Organization | | | | + +---------+ + + | EXTERNAL LAB | | | | + +---------+ + + External Lab: CBC (09/15/2017 5:42 AM PDT) + + + + + + | Component | Value | Ref Range | Performed | Pathologist | | | | | At | Signature | + + + + + + | WBC | 10.30 | 3.80 - 11.00 | EXTERNAL | | | | | K/uL | LAB | | + + + + + + | RED CELL | 4.07 (L) | 4.20 - 5.70 | EXTERNAL | | | COUNT | | M/uL | LAB | | + + + + + + | Hgb | 12.2 (L) | 13.2 - 17.0 | EXTERNAL | | | | | g/dL | LAB | | + + + + + + | Hematocrit, | 35.0 (L) | 39.0 - 50.0 % | EXTERNAL | | | POC | | | LAB | | + + + + + + | MCV | 85.9 | 80.0 - 100.0 fl | EXTERNAL | | | | | | LAB | | + + + + + + | MCH | 29.9 | 27.0 - 34.0 pg | EXTERNAL | | | | | | LAB | | + + + + + + | MCHC | 34.8 | 32.0 - 35.5 | EXTERNAL | | | | | g/dL | LAB | | + + + + + + | RDW-CV | 41.1 | 37 - 53 fl | EXTERNAL | | | | | | LAB | | + + + + + + | Platelet | 283 | 150 - 400 K/uL | EXTERNAL | | | Count | | | LAB | | | Plasma | | | | | + + + + + + | MPV | 7.2 | fl | EXTERNAL | | | | | | LAB | | + + + + + + | Differentia | AUTOMATED | | EXTERNAL | | | l Type | | | LAB | | + + + + + + | % Segmented | 66.92 | % | EXTERNAL | | | | | | LAB | | | Neutrophils | | | | | + + + + + + | % | 17.62 | % | EXTERNAL | | | Lymphocytes | | | LAB | | + + + + + + | % Monocytes | 10.59 | % | EXTERNAL | | | | | | LAB | | + + + + + + | % | 4.04 | % | EXTERNAL | | | Eosinophils | | | LAB | | + + + + + + | % Basophils | 0.83 | % | EXTERNAL | | | | | | LAB | | + + + + + + | Absolute | 6.89 | 1.90 - 7.40 | EXTERNAL | | | Segmented | | K/uL | LAB | | | Neutrophils | | | | | + + + + + + | Absolute | 1.82 | 1.00 - 3.90 | EXTERNAL | | | Lymphocytes | | K/uL | LAB | | + + + + + + | Absolute | 1.09 (H) | 0.00 - 0.80 | EXTERNAL | | | Monocytes | | K/uL | LAB | | + + + + + + | Absolute | 0.42 | 0.00 - 0.50 | EXTERNAL | | | Eosinophils | | K/uL | LAB | | + + + + + + | Absolute | 0.09Comment: Testing | 0.00 - 0.10 | EXTERNAL | | | Basophils | performed at [facility], [address] | K/uL | LAB | | | | [address], | | | | | | [place] [address] | | | | + + + + + + + + | Specimen | + + | Blood specimen | | (specimen) | + + + +---------+ + + | Performing | Address | City/State/Zipcode | Phone Number | | Organization | | | | + +---------+ + + | EXTERNAL LAB | | | | + +---------+ + + Phosphorus (09/15/2017 5:42 AM PDT) + + + + + + | Component | Value | Ref Range | Performed | Pathologist | | | | | At | Signature | + + + + + + | PHOSPHORUS | 3.5Comment: Testing | 2.3 - 4.8 mg/dL | EXTERNAL | | | | performed at [facility], [address] | | LAB | | | | [address], | | | | | | [place] [address] | | | | + + + + + + + + | Specimen | + + | Blood specimen | | (specimen) | + + + +---------+ + + | Performing | Address | City/State/Zipcode | Phone Number | | Organization | | | | + +---------+ + + | EXTERNAL LAB | | | | + +---------+ + + Magnesium (09/15/2017 5:42 AM PDT) + + + + + + | Component | Value | Ref Range | Performed | Pathologist | | | | | At | Signature | + + + + + + | Magnesium | 1.9Comment: Testing | 1.7 - 2.4 mg/dL | EXTERNAL | | | | performed at [facility], [address] | | LAB | | | | [address], | | | | | | [place] [address] | | | | + + + + + + + + | Specimen | + + | Blood specimen | | (specimen) | + + + +---------+ + + | Performing | Address | City/State/Zipcode | Phone Number | | Organization | | | | + +---------+ + + | EXTERNAL LAB | | | | + +---------+ + + Basic Metabolic Panel (09/15/2017 5:42 AM PDT) + + + + + + | Component | Value | Ref Range | Performed | Pathologist | | | | | At | Signature | + + + + + + | Na | 143 | 135 - 145 | EXTERNAL | | | | | mmol/L | LAB | | + + + + + + | K | 3.7 | 3.5 - 4.9 | EXTERNAL | | | | | mmol/L | LAB | | + + + + + + | Cl | 111 (H) | 99 - 109 mmol/L | EXTERNAL | | | | | | LAB | | + + + + + + | CO2 | 23 | 23 - 32 mmol/L | EXTERNAL | | | | | | LAB | | + + + + + + | Anion Gap | 13 | 5 - 20 mmol/L | EXTERNAL | | | | | | LAB | | + + + + + + | Glucose, | 80 | 65 - 99 mg/dL | EXTERNAL | | | Fasting | | | LAB | | + + + + + + | BUN | 15 | 8 - 25 mg/dL | EXTERNAL | | | | | | LAB | | + + + + + + | Creatinine | 1.1 | 0.70 - 1.30 | EXTERNAL | | | | | mg/dL | LAB | | + + + + + + | BUN/Creatin | 14 | | EXTERNAL | | | ine Ratio | | | LAB | | + + + + + + | Calcium | 8.5 | 8.5 - 10.5 | EXTERNAL | | | | | mg/dL | LAB | | + + + + + + | Estimated | >60Comment: GFR <60: | mL/min/1.73m2 | EXTERNAL | | | GFR | CHRONIC KIDNEY DISEASE, | | LAB | | | | IF FOUND OVER A 3 MONTH | | | | | | PERIOD.GFR <15: KIDNEY | | | | | | FAILURE.FOR | | | | | | AMERICANS, MULTIPLY THE | | | | | | CALCULATED GFR BY | | | | | | 1.210.Testing performed | | | | | | at [facility], [address] | | | | | | [address], | | | | | | [place] [address] | | | | + + + + + + + + | Specimen | + + | Blood specimen | | (specimen) | + + + +---------+ + + | Performing | Address | City/State/Zipcode | Phone Number | | Organization | | | | + +---------+ + + | EXTERNAL LAB | | | | + +---------+ + + POC Glucose (09/15/2017 5:28 AM PDT) + + + + + + | Component | Value | Ref Range | Performed | Pathologist | | | | | At | Signature | + + + + + + | Glucose, | 82Comment: Testing | 65 - 99 mg/dL | EXTERNAL | | | Fingerstick | performed at [facility] | | LAB | | | | [address];[place], [place] | | | | | | [address] | | | | + + + + + + + + | Specimen | + + | | + + + +---------+ + + | Performing | Address | City/State/Zipcode | Phone Number | | Organization | | | | + +---------+ + + | EXTERNAL LAB | | | | + +---------+ + + POC Glucose (09/14/2017 9:24 PM PDT) + + + + + + | Component | Value | Ref Range | Performed | Pathologist | | | | | At | Signature | + + + + + + | Glucose, | 132 (H)Comment: Testing | 65 - 99 mg/dL | EXTERNAL | | | Fingerstick | performed at [facility];[address] | | LAB | | | | [address];[place] | | | | | | [address] | | | | + + + + + + + + | Specimen | + + | | + + + +---------+ + + | Performing | Address | City/State/Zipcode | Phone Number | | Organization | | | | + +---------+ + + | EXTERNAL LAB | | | | + +---------+ + + Culture, Blood, 2nd Specimen (09/14/2017 6:24 PM PDT) + + | Specimen | + + | Blood specimen | | (specimen) | + + + + + | Narrative | Performed At | + + + | Specimen Description BLOOD, PERIPHERAL DRAW | EXTERNAL LAB | | SPECIAL REQUESTS LAC CULTURE | | | NO GROWTH 6 DAYS | | + + + + +---------+ + + | Performing | Address | City/State/Zipcode | Phone Number | | Organization | | | | + +---------+ + + | EXTERNAL LAB | | | | + +---------+ + + Culture, Blood (09/14/2017 6:18 PM PDT) + + | Specimen | + + | Blood specimen | | (specimen) | + + + + + | Narrative | Performed At | + + + | Specimen Description BLOOD, PERIPHERAL DRAW | EXTERNAL LAB | | SPECIAL REQUESTS RAC CULTURE | | | NO GROWTH 6 DAYS | | + + + + +---------+ + + | Performing | Address | City/State/Zipcode | Phone Number | | Organization | | | | + +---------+ + + | EXTERNAL LAB | | | | + +---------+ + + POC Glucose (09/14/2017 5:18 PM PDT) + + + + + + | Component | Value | Ref Range | Performed | Pathologist | | | | | At | Signature | + + + + + + | Glucose, | 127 (H)Comment: Testing | 65 - 99 mg/dL | EXTERNAL | | | Fingerstick | performed at [facility];[address] | | LAB | | | | [address];[place], [place] | | | | | | [address] | | | | + + + + + + + + | Specimen | + + | | + + + +---------+ + + | Performing | Address | City/State/Zipcode | Phone Number | | Organization | | | | + +---------+ + + | EXTERNAL LAB | | | | + +---------+ + + documented in this encounter Visit Diagnoses + + | Diagnosis | + + | Streptococcal bacteremia Bacteremia | + + | Essential hypertension Unspecified essential hypertension | + + | Paroxysmal atrial fibrillation (HCC) Atrial fibrillation | + + | Psoriasis Other psoriasis | + + documented in this encounter
--- OUTSIDE RECORDS SUMMARY | ~2019-04-07 | XMS | Encounter Summary ---
Demographics + + + | Address | [address] | | | [place] [address] | + + + | Home Phone | | + + + | Preferred Language | Unknown | + + + | Marital Status | Legally | + + + | Protestant Affiliation | 1041 | + + + | Race | Unknown | + + + | Ethnic Group | Unknown | + + + Author + + + | Author | [facility] | | | and [place] | + + + | Organization | [facility] | | | [...] Providers + +------+ + | Care Software Technician Name | Role | Phone | + [...] NEPHROLOGY [address] | MD [address] | necrosis) ([facility]); | | | | [address] | [address] [place] | Vitamin D | | | | [place], [place] | [place] [address] | deficiency; Ischemic | | | | [address] | [phone] | heart disease | | | | [phone] | | | +--------+ + + + [...] [place] | | | | | | [place] [address] | | | | | | [phone] | | | | | | | [...]
--- OUTSIDE RECORDS SUMMARY | ~2019-04-07 | XMS | Encounter Summary ---
Demographics + + + | Address | [address] | | | [place] [address] | + + + | Home Phone | | + + + | Preferred Language | Unknown | + + + | Marital Status | Legally | + + + | Restorationist Affiliation | 1041 | + + + | Race | Unknown | + + + | Ethnic Group | Unknown | + + + Author + + + | Author | [facility] | | | and [place] | + + + | Organization | [facility] | | [...] Team Providers + +------+ + | Care Home Worker Name | Role | Phone | [...] | NEPHROLOGY [address] | [address] | disease, stage III | | | | [address] | [address] [place] | (moderate) (Primary | | | | [place], [place] | [place] [address] | Dx) | | | | [address] | [phone] | | | | | [phone] | | | +--------+ + + + [...] sent to: Need to be sent to [facility] closer to appt date RU completed 11/04/17 at [facility] signed by Yvonne Hahn RN at 4:49 [...] | | | | | [place] [address] | | | | | | [phone] | | | | | | | | +--------+---------+ + + + documented as of this encounter Visit Diagnoses + + | Diagnosis | + + | Chronic kidney disease, stage III (moderate) (HCC) - Primary Chronic kidney disease, | | Stage III (moderate) | + + documented in this encounter"
--- OUTSIDE RECORDS SUMMARY | ~2019-04-07 | XMS | Encounter Summary ---
Demographics + + + | Address | [address] | | | [place] [address] | + + + | Home Phone | | + + + | Preferred Language | Unknown | + + + | Marital Status | Legally | + + + | Zoroastrian Affiliation | 1041 | + + + | Race | Unknown | + + + | Ethnic Group | Unknown | + + + Author + + + | Author | [facility] | | | and [place] | + + + | Organization | [facility] | | | and [place] | + + + | Address | Unknown | + + + | Phone | Unavailable | + + + Support + + +---------+ + | Name | Relationship | Address | Phone | + + +---------+ + | Halina Robretson | ECON | Unknown | | + + +---------+ + | Danelle Robertson | ECON | Unknown | | + + +---------+ + Care Team Providers + +------+ + | Care Library Technical Assistant Name | Role | Phone | + [...] NEPHROLOGY [address] | MD [address] [place] | disease) stage 3, | | | | [address] | [address] [place] | GFR 30-59 ml/min | | | | [place], [place] | [place] [address] | ([facility]) (Primary Dx) | | | | [address] | [phone] | | | | | [phone] | | | +--------+ + + + [...] | | | | | [place] [address] | | | | | | [phone] | | | | | | | | +--------+---------+ + + + documented as of this encounter Visit Diagnoses + + | Diagnosis | + + | CKD (chronic kidney disease) stage 3, GFR 30-59 ml/min ([facility]) - Primary Chronic kidney | | disease, Stage III (moderate) | + + documented in this encounter"
--- OUTSIDE RECORDS SUMMARY | ~2019-04-07 | XMS | Encounter Summary ---
Demographics + + + | Address | [address] | | | [place] [address] | + + + | Home Phone [...] + + + | Author | [facility] | | | and [place] | + + + | Organization | [facility] | | [...] Team Providers + +------+ + | Care Mixer Driver Name | Role | Phone | [...] NEPHROLOGY [address] | MD [address] [place] | disease) stage 3, | | | | [address] | [address] [place] | GFR 30-59 ml/min | | | | [place], [place] | [place] [address] | ([facility]) (Primary Dx) | | | | [address] | [phone] | | | | | [phone] | | | +--------+ + + + [...] AM PDTLabs expected this week sent to [facility] documented in this e ncounter Plan of [...] | | | | | [place] [address] | | | | | | [phone] | | | | | | | [...]
--- OUTSIDE RECORDS SUMMARY | ~2019-04-07 | XMS | Encounter Summary ---
Demographics + + + | Address | [address] | | | [place] [address] | + + + | Home Phone | | + + + | Preferred Language | Unknown | + + + | Marital Status | Legally | + + + | Confucianist Affiliation | 1041 | + + + | Race | Unknown | + + + | Ethnic Group | Unknown | + + + Author + + + | Author | [facility] | | | and [place] | + + + | Organization | [facility] | | | [...] Team Providers + +------+ + | Care Overlock Hemmer Name | Role | Phone | + [...] | NEPHROLOGY [address] | [address] | Appointment | | | | [address] | [address] [place] | | | | | [place], [place] | [place] [address] | | | | | [address] | [phone] | | | | | [phone] | | | +--------+ + + + [...] | | | | | [place] [address] | | | | | | [phone] | | | | | | | | +--------+---------+ + + + documented as of this encounter Visit Diagnoses Not on filedocumented in this encounter"
--- OUTSIDE RECORDS SUMMARY | ~2019-04-07 | XMS | Encounter Summary ---
Demographics + + + | Address | [address] | | | [place] [address] | + + + | Home Phone | | + + + | Preferred Language | Unknown | + + + | Marital Status | Legally | + + + | Anabaptist Affiliation | 1041 | + + + | Race | Unknown | + + + | Ethnic Group | Unknown | + + + Author + + + | Author | [facility] | | | and [place] | + + + | Organization | [facility] | [...] Team Providers + +------+ + | Care Tissue Rewinder Name | Role | Phone | + [...] + + | 08/25/ | Telephone | [facility] [place] | [address], | Lab Results | | 2019 | | NEPHROLOGY [address] | MD [address] | | | | | [address] | [address] [place] | | | | | [place], [place] | [place] [address] | | | | | [address] | [phone] | | | | | [phone] | | | +--------+ + + + [...] | | | | | | [place] [address] | | | | | | [phone] | | | | | | | | +--------+---------+ + + + documented as of this encounter Visit Diagnoses Not on filedocumented in this encounter"
--- OUTSIDE RECORDS SUMMARY | ~2019-04-07 | XMS | Encounter Summary ---
Demographics + + + | Address | [address] | | | [place] [address] | + + + | Home Phone | | + + + | Preferred Language | Unknown | + + + | Marital Status | Legally | + + + | Congregational Affiliation | 1041 | + + + [...] Team Providers + +------+ + | Care Account Representative Name | Role | Phone | + +------+ + PCP | Unavailable | + +------+ + Encounter Details +--------+ + + + + | Date | Type | Department | Care Team | Description | +--------+ + + + + | 12/23/ | Hospital | [facility] | Antoine Naqvi | Unspecified Chest | | 2007 - | Encounter | [facility] | MD [address] | Pain | | | | CARE [address] | [address] | | | [address] | | [address] | [place] [address] | | | 2007 | | [place], [place] | [phone] | | | | | [address] | | | | | | [phone] | | | +--------+ + + + [...] [place] | | | | | | [place] [address] | | | | | | [phone] | | | | | | | | +--------+---------+ + + + documented as of this encounter Visit Diagnoses + + | Diagnosis | + + | Chest pain, unspecified | + + documented in this encounter"
--- OUTSIDE RECORDS SUMMARY | ~2019-04-07 | XMS | Encounter Summary ---
Demographics + + + | Address | [address] | | | [place] [address] | + + + | Home Phone | | + + + | Preferred Language | Unknown | + + + | Marital Status | Legally | + + + | Sabianist Affiliation | 1041 | + + + [...] Team Providers + +------+ + | Care Forensic Examiner Name | Role | Phone | [...] | Radiology | Diagnoses | Adrian, | [facility] | | | | | CVD | [place] | [address] | | | | | (cardiovascu | MD [address] | [address] | | | | | lar disease) | [address] | [place], [place] | | | | | Procedures | [address] | [address] | | | | | ECHO | [place], [place] | Phone: | | | | | Complete | [address] | [phone] | | | | | | Phone: | Fax: | | | | | | [phone] | [phone] | | | | | | Fax: | | | | | | | [phone] | | +--------+--------+ + + + + Encounter Details +--------+ + + + + | Date | Type | Department | Care Team | Description | +--------+ + + + + | 11/27/ | Orders Only | [facility] | [place], | CVD (cardiovascular | | 2019 | | [facility] | Juan Price, | disease) (Primary | | | | [facility] | MD [address] | Dx) | | | | [address] | [address] [place], | | | | | [place], [place] | [place] [address] | | | | | [address] | [phone] | | | | | [phone] | | | +--------+ + + + [...] [place] | | | | | | [place] [address] | | | | | | [phone] | | | | | | | | +--------+---------+ + + + documented as of this encounter Results ECHO Complete (04/03/2019 2:54 [...] | + + | CVD (cardiovascular disease) - Primary Unspecified cardiovascular disease | + + documented in this encounter
--- OUTSIDE RECORDS SUMMARY | ~2019-04-07 | XMS | Encounter Summary ---
Demographics + + + | Address | [address] | | | [place] [address] | + + + | Home Phone | | + + + | Preferred Language | Unknown | + + + | Marital Status | Legally | + + + | Islam Affiliation | 1041 | + + + | Race | Unknown | + + + | Ethnic Group | Unknown | + + + Author + + + | Author | [facility] | | | and [place] | + + + | Organization | [facility] | | | [...] Team Providers + +------+ + | Care Neon Sign Servicer Name | Role | Phone | + +------+ + PCP | Unavailable | + +------+ + Encounter Details +--------+ + + + + | Date | Type | Department | Care Team | Description | +--------+ + + + + | 10/31/ | Orders Only | [facility] | Conversion | | | 2019 | | CONVERSION [address] | Transaction, | | | | | [address] | Provider Unknown | | | | | [place], [place] | [phone] | | | | | [address] | | | | | | [phone] | | | +--------+ + + + [...] | | | | | [place] [address] | | | | | | [phone] | | | | | | | [...] MV A Jayy: 0.83 m/s MV Dec Loup: | | | 4.25 m/s2 MV DecT: 125.17 ms MV E Jayy: 0.53 m/s MV E/A Ratio: | | | 0.63 MV PHT: 36.30 ms MVA By PHT: 6.06 cm2 Septal e': | | | 0.03 m/s Septal E/e': 13.44 Lateral e': 0.05 m/s Lateral | | | E/e': 10.22 RAP: 5 mmHg RV s': 0.12 m/s Security Alarm Installer: | | | DBS Authenticated by: Opal Cooper MD Report Date/Time: -- | | | [id number] | | + + + + -----+ [...] cmLVIDd: 5.43 cmLVPWd: 0.98 cmLVOT Area: 4.48 rt7NNQT Diam: | | 2.39 cm%FS: 18.54 %EF(Teich): [...] | | (A-L): 21.27 ml/m2LAAs A2C: 16.41 ue5UYZMG A-L A2C: 52.35 mlLALs A2C: 4.36 | | cmLAAs A4C: 11.00 ca5NIYGY A-L A4C: 30.66 mlLALs A4C: 3.35 cmRAAs: 11.33 | | ju1GKKHU A-L: 26.07 mlRAESV MOD: 23.43 mlRALs: 4.17 cmTAPSE: 2.16 cmAV maxPG: | | 4.31 mmHgAV meanP.02 mmHgAV Vmax: 1.03 m/Ly Vmean: 0.64 m/Ly VTI: 20.29 | | cmAVA Vmax: 3.34 cm2AVA (VTI): 3.86 vt6JGNC (Vmax): 0.00 cm2/m2AVAI (VTI): 0.00 | | cm2/m2LVOT maxP.39 mmHgLVOT meanP.26 mmHgLVSI Dopp: 36.47 ml/m2LVSV Dopp: | | 78.42 mlLVOT Vmax: 0.77 m/sLVOT Vmean: 0.53 m/sLVOT VTI: 17.48 cmMV A Jayy: | | 0.83 m/sMV Dec Loup: 4.25 m/s2MV DecT: 125.17 msMV E Jayy: 0.53 m/sMV E/A Ratio: | | 0.63MV PHT: 36.30 msMVA By PHT: 6.06 sd4Benetf e': 0.03 m/sSeptal E/e': | | 13.44Lateral e': 0.05 m/sLateral E/e': 10.22RAP: 5 mmHgRV s': 0.12 m/s | | Security Alarm Installer: DBSAuthenticated by: Opal [facility]IN[facility] Date/Time: -- | | [id number]:56 IMPRESSION: 1. Overall left ventricular systolic function [...] A Jayy: 0.83 m/s | |MV Dec Loup: 4.25 m/s2 | |MV DecT: 125.17 ms | |MV E Jayy: 0.53 m/s | |MV E/A Ratio: 0.63 | |MV PHT: 36.30 ms | |MVA By PHT: 6.06 cm2 | |Septal e': 0.03 m/s | |Septal E/e': 13.44 | |Lateral e': 0.05 m/s | |Lateral E/e': 10.22 | |RAP: 5 mmHg | |RV s': 0.12 m/s | | | |Security Alarm Installer: DBS | |Authenticated by: Opal Cooper MD | |Report Date/Time: -- [id number]:56 | | | |IMPRESSION: | |1. Overall left ventricular systolic function is mildly impaired with, an EF between 45 - 5 0 %. | |2. The right ventricle is normal in size and function. | + -----+ documented in this encounter Visit Diagnoses Not on filedocumented in this encounter"
--- OUTSIDE RECORDS SUMMARY | ~2019-04-07 | XMS | Encounter Summary ---
Demographics + + + | Address | [address] | | | [place] [address] | + + + | Home Phone [...] Team Providers + +------+ + | Care Estate Planner Name | Role | Phone | + [...] | NEPHROLOGY [address] | | | | | [address] | [address] [place] | | | | | [place], [place] | [place] [address] | | | | | [address] | [phone] | | | | | [phone] | | | +--------+ + + + [...] | | | | | [place] [address] | | | | | | [phone] | | | | | | | [...]
--- OUTSIDE RECORDS SUMMARY | ~2019-04-07 | XMS | Encounter Summary ---
Demographics + + + | Address | [address] | | | [place] [address] | + + + | Home Phone [...] Team Providers + +------+ + | Care Costume Design Teacher Name | Role | Phone | + +------+ + PCP | Unavailable | + +------+ + Encounter Details +--------+ + + + + | Date | Type | Department | Care Team | Description | +--------+ + + + + | 03/01/ | Orders Only | [facility] [place] | Shea Pedraza W, | CKD (chronic kidney | | 2019 | | NEPHROLOGY [address] | [address] | disease) stage 3, | | | | [address] | [address] [place] | GFR 30-59 ml/min | | | | [place], [place] | [place] [address] | (HCC) (Primary Dx); | | | | [address] | [phone] | Anemia in stage 3 | | | | [phone] | | chronic kidney | | | | | | disease (HCC) | +--------+ + + + + Social [...] this encounter Progress Yvonne Davis RN - 03/01/2019 10:34 AM PSTLabs for upcoming nephrology appointment sent to: [facility] [...] [place] | | | | | | [place] [address] | | | | | | [phone] | | | | | | | | +--------+---------+ + + + documented as of this encounter Visit Diagnoses + + | Diagnosis | + + | CKD (chronic kidney disease) stage 3, GFR 30-59 ml/min ([facility]) - Primary Chronic kidney | | disease, Stage III (moderate) | + + | Anemia in stage 3 chronic kidney disease (HCC) | + + documented in this encounter"
--- OUTSIDE RECORDS SUMMARY | ~2019-04-07 | XMS | Encounter Summary ---
Demographics + + + | Address | [address] | | | [place] [address] | + + + | Home Phone | | + + + | Preferred Language | Unknown | + + + | Marital Status | Legally | + + + | Christianity Affiliation | 1041 | + + + | Race | Unknown | + + + | Ethnic Group | Unknown | + + + Author + + + | Author | [facility] | | | and [place] | + + + | Organization | [facility] | [...] Team Providers + +------+ + | Care Financial Analysis Consultant Name | Role | Phone | + [...] | | | | | | | little shell tribe or | | | | | | [...] + + | 02/15/ | Anesthesia | [facility] | Ed Elmore MD | | | 2019 | [facility] | [address] | | | | | [address]PER[address] | [place] [address] | | | | | [address] | [phone] | | | | | [place], [place] | | | | | | [address] | | | | | | [phone] | | | +--------+ + + + [...] Note | Ci=2.3, SvO2=78% (MAP86, CVP20) PAP55/33 [id number] | | | 8 | | | | | 5 | | | | | 4 | | | +----+---+ + + | | 0 | Quick Note | Blood gas shows metabolic acidosis and anemia. Plan to administer | | | 9 | | additional [id number] on CPB and give 2u pRBCs now. | | | 0 | | | | | 7 | | | +----+---+ + + | | 0 | Quick Note | Blood bank: 2units pRBCs given. First unit (#[id number]) | | | 9 | | started @0912, finished @928. Second unit: (#[id number]) | | | 1 | | started [...] 02/18/19110 by | | eral | Forearm; znuh-xnp-nabqju catheter | Andreea Zuñiga RN | Theodore Patterson RN | | IV | system; 20 gauge; | | | | | catheter/device intact, site | | | | | symptomatic; 02/18/19; 0111 | | | +--------+ + + + | Periph | 02/11/19; 516; Left; Hand; | 02/11/19516 by | 02/18/19111 by | | eral | fdlq-wzw-yuqtaw catheter system; | Andreea Zuñiga RN | [...] comments) (PREVENA | Geoff Briscoe RN | iTka Nagy RN | | Site | WOUND [...] | Line | Chlorhexidine/Isopropyl Alcohol; | | Load Manager | | | sedated; Right; brachial artery; [...] | Lumen | Chlorhexidine/Isopropyl Alcohol; | | Load Manager | | | Yes; Yes; All; [place]; Paper Machine Operator; | | | | | Ed Elmore [...] | | | | | | [place] [address] | | | | | | [phone] | | | | | | | [...] | | at this time Person recording: oracle etl developer Performed by: Ed Elmore | | | [...] at this time | | Person recording: oracle etl developer | | Performed by: Ed Elmore MD [...] - 02/15/2019 9:28 AM PDT Anesthesia Airway Kscfkgkpl92/24/2019 | | 7:22Preprocedure check: patient identified, airway [...] - 02/15/2019 7:14 AM PDT Arterial Line Gbbxyybzm82/24/2019 | | 7:14Indication: continuous blood pressure monitoring [...] PDT | | | | | Starting [facility] 02/15/19 at 0806, | | | | [...]
--- OUTSIDE RECORDS SUMMARY | ~2019-04-07 | XMS | Encounter Summary ---
Demographics + + + | Address | [address] | | | [place] [address] | + + + | Home Phone [...] Team Providers + +------+ + | Care District Court Reporter Name | Role | Phone | + [...] | Radiology | Diagnoses | [place], | [facility] | | | | | CVD | [place] | [address] | | | | | (cardiovascu | MD Albert | [address] | | | | | lar disease) | [address] | [place], [place] | | | | | Procedures | [address] | [address] | | | | | ECHO | [place], [place] | Phone: | | | | | Complete | [address] | [phone] | | | | | | Phone: | Fax: | | | | | | [phone] | [phone] | | | | | | Fax: | | | | | | | [phone] | | +--------+--------+ + + + + Encounter Details +--------+ + + + + | Date | Type | Department | Care Team | Description | +--------+ + + + + | 11/27/ | Orders Only | [facility] | [place], | CVD (cardiovascular | | 2019 | | [facility] | Juan Price, | disease) (Primary | | | | PROVIDER CARDIOLOGY | MD Skip Gerardo | Dx) | | | | [address] | [address] [place], | | | | | [place], [place] | [place] [address] | | | | | [address] | [phone] | | | | | [phone] | | | +--------+ + + + [...] | | | | | | [place] [address] | | | | | | [phone] | | | | | | | [...]
--- OUTSIDE RECORDS SUMMARY | ~2019-04-07 | XMS | Encounter Summary ---
Demographics + + + | Address | [address] | | | [place] [address] | + + + | Home Phone [...] Team Providers + +------+ + | Care Target Trimmer Name | Role | Phone | + [...] NEPHROLOGY [address] | MD [address] [place] | disease) stage 3, | | | | [address] | [address] [place] | GFR 30-59 ml/min | | | | [place], [place] | [place] [address] | ([facility]) (Primary Dx) | | | | [address] | [phone] | | | | | [phone] | | | +--------+ + + + [...] | | | | | [place] [address] | | | | | | [phone] | | | | | | | | +--------+---------+ + + + documented as of this encounter Visit Diagnoses + + | Diagnosis | + + | CKD (chronic kidney disease) stage 3, GFR 30-59 ml/min ([facility]) - Primary Chronic kidney | | disease, Stage III (moderate) | + + documented in this encounter"
--- OUTSIDE RECORDS SUMMARY | ~2019-04-07 | XMS | Encounter Summary ---
Demographics + + + | Address | [address] | | | [place] [address] | + + + | Home Phone [...] Team Providers + +------+ + | Care Biological Technician Name | Role | Phone | [...] [place] | | | | | [place], [place] | [address] | | | | | [address] | | | | | | [phone] | | | +--------+ + + + [...] | | | | | [place] [address] | | | | | | [phone] | | | | | | | [...] MV A Jayy: 0.72 m/s MV Dec Jayuya: | | | 6.02 m/s2 MV DecT: [...] | 24.44 mmHg TR Vmax: 2.47 m/s Slasher Tender: Authenticated | | | by: SONIDO CHI [...] cmLVPWd: 1.21 cmLVOT Area: | | 4.49 lq4CKPJ Diam: 2.39 cm%FS: 27.18 %EF(Teich): 52.66 %ESV(Teich): [...] (A-L): 29.54 ml/m2LAAs A2C: | | 19.23 lc2UTVZB A-L A2C: 64.43 mlLALs A2C: 4.87 cmLAAs A4C: 18.42 no4YTCYO A-L A4C: | | 59.43 mlLALs A4C: 4.85 cmRAAs: 10.81 dn4AQGLO A-L: 23.63 mlRAESV MOD: 22.84 | | mlRALs: 4.20 cmTAPSE: 1.89 cmAV maxP.19 mmHgAV meanP.56 mmHgAV Vmax: | | 1.24 m/Ly Vmean: 0.90 m/Ly VTI: 24.56 cmAVA Vmax: 3.46 cm2AVA (VTI): 3.75 | | du4RNIJ maxP.68 mmHgLVOT meanP.10 mmHgLVSI Dopp: 43.98 ml/m2LVSV Dopp: | | 92.37 mlLVOT Vmax: 0.96 m/sLVOT Vmean: 0.67 m/sLVOT VTI: 20.55 cmMV A Jayy: 0.72 | | m/sMV Dec Jayuya: 6.02 m/s2MV DecT: 155.27 msMV E Jayy: 0.93 m/sMV E/A Ratio: | | 1.29MV PHT: 45.02 msMVA By PHT: 4.88 ng1Jwcjbh e': 0.05 m/sSeptal E/e': | | 16.09Lateral e': 0.07 m/sLateral E/e': 12.08RAP: 5 mmHgRVSP: 29.44 mmHgTR maxPG: | | 24.44 mmHgTR Vmax: 2.47 m/s Slasher Tender:Authenticated by: Cherelle YI | | Date/Time: 09-13-2017 [...] A Jayy: 0.72 m/s | |MV Dec Jayuya: 6.02 m/s2 | |MV DecT: 155.27 ms [...] |TR Vmax: 2.47 m/s | | | |Slasher Tender: | |Authenticated by: SONIDO CHI MD | [...]
--- OUTSIDE RECORDS SUMMARY | ~2019-04-07 | XMS | Encounter Summary ---
Demographics + + + | Address | [address] | | | [place] [address] | + + + | Home Phone | | + + + | Preferred Language | Unknown | + + + | Marital Status | Legally | + + + | Episcopal Affiliation | 1041 | + + + | Race | Unknown | + + + | Ethnic Group | Unknown | + + + Author + + + | Author | [facility] | | | and [place] | + + + | Organization | [facility] | | [...] Team Providers + +------+ + | Care Linux Unix Engineer Name | Role | Phone | [...] NEPHROLOGY [address] | MD [address] | | | | | [address] | [address] [place] | | | | | [place], [place] | [place] [address] | | | | | [address] | [phone] | | | | | [phone] | | | +--------+ + + + [...] | Visit | | MD [address] | | | | | | [address] [place] | | | | | | [place] [address] | | | | | | [phone] | | | | | | | [...] 1.012 | | EXTERNAL | | | [place], | | | LAB | | | [...]
--- OUTSIDE RECORDS SUMMARY | ~2019-04-07 | XMS | Encounter Summary ---
Demographics + + + | Address | [address] | | | [place] [address] | + + + | Home Phone [...] Team Providers + +------+ + | Care Basket Sorter Name | Role | Phone | + [...] | | | injury) | [address] | [place] [address] | | | | | ([facility]) | [address] | [address] [place] | | | | | Procedures | [address] | [place], [place] | | | | | ID OFFICE | [facility] | [id number] Phone: | | | | | OUTPATIENT | [place] | [phone] | | | | | VISIT 25 | [address] | Fax: | | | | | MINUTES | Phone: | [phone] | | | | | | [phone] | | | | | | | Fax: | | | | | | | [phone] | | +--------+--------+ + + + + Encounter Details +--------+---------+ + + + | Date | Type | Department | Care Team | Description | +--------+---------+ + + + | 11/14/ | Office | [facility] [place] | Shea Pedraza W, | CKD (chronic kidney | | 2019 | Visit | NEPHROLOGY [address] | MD [address] | disease) stage 3, | | | | [address] | [address] [place] | GFR 30-59 ml/min | | | | [place], [place] | [place] [address] | ([facility]) (Primary Dx); | | | | [address] | [phone] | Essential | | | | [phone] | | hypertension with | | | [...] | | | | use of insulin ([facility]) | +--------+---------+ + + + Social History [...] evaluated by Dr. Garcia (GI ) in [place]. Pt believes his diarrhea is mostly related [...] 3, GFR 30-59 ml/min ([facility]) 11/14/2018 Vitamin D deficiency 10/13/2017 Diabetic neuropathy [...] elbow - bilateral 08/12/2014 Hyperlipidemia 11/15/2013 A-fib ([facility]) 04/03/2013 Coronary atherosclerosis 04/03/2013 DM (diabetes mellitus) ([facility]) 04/03/2013 Outpatient Medications Marked as Taking for [...] RBC, External 11/13/2018 5 Final UA Specific Reading, External 11/13/2018 1.024 Final UA Leukocyte Esterase, [...] [place] | | | | | | [place] [address] | | | | | | [phone] | | | | | | | [...] long-term current | | use of insulin ([facility]) | + + documented in this encounter"
--- OUTSIDE RECORDS SUMMARY | ~2019-04-07 | XMS | Encounter Summary ---
Demographics + + + | Address | [address] | | | [place] [address] | + + + | Home Phone | | + + + | Preferred Language | Unknown | + + + | Marital Status | Legally | + + + | Hinduism Affiliation | 1041 | + + + | Race | Unknown | + + + | Ethnic Group | Unknown | + + + Author + + + | Author | [facility] | | | and [place] | + + + | Organization | [facility] | | | [...] Team Providers + +------+ + | Care Outside Cutter Name | Role | Phone | + +------+ + PCP | Unavailable | + +------+ + Encounter Details +--------+ + + + + | Date | Type | Department | Care Team | Description | +--------+ + + + + | 09/14/ | Hospital | [facility] | Randy Kumar MD | Streptococcal | | 2018 - | Encounter | [facility] | [address] | bacteremia; | | | | CARE FLO[address] | [address] [place], | Essential | | 09/17/ | | [address] | [place] [address] | hypertension; | | 2018 | | [place], [place] | [phone] | Paroxysmal atrial | | | | [address] | | fibrillation (HCC); | | | | [phone] | | Psoriasis | +--------+ + + [...] 1100 Date of Service: 09/17/171051 Status: Signed Repairer Hairspring: Rangel Bright MD (Physician) Patient: Live Robertson [...] 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 Patient should have clearance from infectious disease [...] Value Units Date/Time Blood Culture Set 1 [[id number]] Collected: 09/14/17 181 Specimen: Blood from Blood, peripheral draw Updated: 09/16/17 0637 Specimen Description BLOOD, PERIPHERAL DRAW SPECIAL REQUESTS RAC CULTURE NO GROWTH 2 DAYS Blood Culture Set 2 [[id number]] Collected: 09/14/17 1824 Specimen: Blood from Blood, [...] I will put PCP follow-up with the escrow officer that he is planning on seeing follow-up wit h infectious disease and all other providers that were being seen prior to admission. Prior to any immunosuppressants patient would need clearance from infectious disease. Patient will have outpatient vancomycin with monitoring of labs as per infectious disease. Discharge Information: Follow up: Yue Mcguire PA-C [address] [place] [address] Follow up [facility] [address] [facility] [phone] Follow up on 09/29/2017 [facility] [address] [facility] [address] Follow up Will provide IV medications [facility] [address] [place] [address] [place] [address] Follow up Picc dressing change on at [...] Date of Service: 09/17/17 113 Status: Signed Repairer Hairspring: Tika Nagy RN (Registered Nurse) Called Osvaldo [...] 09/17/17911 Date of Service: 09/17/17911 Status: Signed Repairer Hairspring: Diana Interiano RPH (Pharmacist) Vancomycin Monitoring: Scr [...] 1414 Date of Service: 09/17/17854 Status: Signed Repairer Hairspring: Trini Paul MD (Physician) [facility] Service: Infectious Disease Progress Note Hospital [...] use illicit drugs. He was admitted to [facility] is a transfer from [facility]. He initially presented at [facility] with 4 days of fever, chills and [...] Blood cultures were drawn on admission to [facility] on 09/14 with no growth to date. [...] valve on transthoracic e chocardiogram done at [facility]; transesophageal echocardiogram done here shows no [...] 09/16/171701 Date of Service: 09/16/171700 Status: Signed Repairer Hairspring: Tika Nagy RN (Registered Nurse) Patient had an uneventful shift, receiving IV abx. Patient should d/c tomorrow after PICC placement, home with IV ABX. onver jennifer Transaction, Provider Unknown - 09/16/2017 1:14 PM PDT Pharmacy Note by Chantal Edmondson RPH at 09/16/171313 Author: Chantal Edmondson RPH Service: Pharmacy Author Type: Pharmacist Filed: 09/16/171313 Date of Service: 09/16/171313 Status: Signed Repairer Hairspring: Chantal Edmondson RPH (Pharmacist) Vancomycin Monitoring Clinician [...] (none) Author Type: Registered Nurse Filed: 09/16/17 3422 Date of Service: 09/16/17 1051 Status: Addendum Repairer Hairspring: Marlyn Patterson RN (Registered Nurse) Related Notes: [...] to go to OP IV therapy at [facility] to [facility] , as pt states this is where his PCP(Yue tran) is. [place] [facility] [place] Clarissa Jorge and Marisela(RN Sujpervisor) to call back re sett ing up IV therapy plan. Faxed H&P, prog notes and tentative Vanco order to [phone]. 1400: Addendum: This is a tentative vanco order, Dr Paul may need to change vanco dosin g depending on next Trough level. May need to refax order tomorrow Tc to [facility] , re IV therapy plan. Per Katheryn, they need to rece brina orders for IV therapy from pt's PCP in order to schedule pt. Tentative d/c this wknd. Pt needs PICC placement 1400: notified pt that this CM has left [address] [facility] and have f axed orders/notes but no one has called back this CM to update on status of request. Informe d pt if this isnt set up today by them, pt will have to stay here till Tuesday. Notified primary RN and hospitalist. 1500: per Deidre with [facility], their PCPs dont have privileges at [facility] and cannot set up OP IV therapy at [facility]. Deidre suggests pt receive home infusion or g o to [facility] or [facility] for OP therapy. 1530: Per nursing superviosor Katheryn at [facility], they cannot provide any ass istance with OP iv therapy unless they have a PCP that has privileges there. 1600: Tc to [facility] came to meet with pt about home infusion services. Pt has agreed t o home insufion and will go to [facility] for PICC care. Oscar will provide tea hannah today to pt and his SO. Lyndsey info in AVS Faxed PICC orders to [facility] appnt schedule in [facility] Notified primary RN, hospitalist and ID Pt can be d/c tomorrow if medically ready. Carolyn angel Cummins MD - 09/16/2017 8:52 AM PDT Progress Notes by Rangel Bright MD at 09/16/17851 Author: Rangel Bright MD Service: Hospitalist Author Type: Physician Filed: 09/16/17 1631 Date of Service: 09/16/17851 Status: Signed Repairer Hairspring: Rangel Bright MD (Physician) [facility] Service: Hospitalist Progress Note Pt: Live Robertson AGE/SEX: 52 y.o. male ROOM: [address] [place] [address]- : 1965 PCP: PER PT NONE (Inactive) [...] hours. No results for input(s): PHART, PO2ART, ROG7GDE, W0VIEEZS, BEART in the last 168 hours. No results for input(s): APTT, INR, PTT in the last 168 hours. No results for input(s): TSH, T3FREE, FREET4 in the last 168 hours. No results for input(s): CKTOTAL, TROPONINI, TROPONINT, CKMBINDEX in the last 168 hours. Results Procedure Component Value Units Date/Time Blood Culture Set 1 [[id number]] Collected: 09/14/171817 Specimen: Blood from Blood, peripheral draw Updated: 09/16/17 0637 Specimen Description BLOOD, PERIPHERAL DRAW SPECIAL REQUESTS RAC CULTURE NO GROWTH 2 DAYS Blood Culture Set 2 [[id number]] Collected: 09/14/171823 Specimen: Blood from Blood, peripheral [...] and managing patient and counseling/coordination. Dictation software, Ufree, used which may contain error for similar [...] Service: Cardiology Author Type: Physician Filed: 09/15/17 6773 Date of Service: 09/15/171700 Status: Signed Repairer Hairspring: Joon Red MD (Physician) [facility] Service: Cardiology Pre-Operative History & Physical [...] Service: Hospitalist Author Type: Physician Filed: 09/15/17 4739 Date of Service: 09/15/17 154 Status: Signed Repairer Hairspring: Rangel Bright MD (Physician) [facility] Service: Hospitalist Progress Note Pt: Live Robertson AGE/SEX: 52 y.o. male ROOM: [address] [place] [address] : 1965 PCP: PER PT NONE (Inactive) [...] hours. No results for input(s): PHART, PO2ART, OCE4ZAU, U9RSDNUD, BEART in the last 168 hours. No results for input(s): APTT, INR, PTT in the last 168 hours. No results for input(s): TSH, T3FREE, FREET4 in the last 168 hours. No results for input(s): CKTOTAL, TROPONINI, TROPONINT, CKMBINDEX in the last 168 hours. Results Procedure Component Value Units Date/Time Blood Culture Set 1 [[id number]] Collected: 09/14/171817 Specimen: Blood from Blood, peripheral draw Updated: 09/14/172019 Blood Culture Set 2 [[id number]] Collected: 09/14/171823 Specimen: Blood from Blood, peripheral [...] and managing patient and counseling/coordination. Dictation software, Ufree, used which may contain error for similar [...] 1510 Date of Service: 09/15/171501 Status: Signed Repairer Hairspring: Marlyn Patterson RN (Registered Nurse) 09/15/17 1500 [...] 52 y.o., male. Pt lives i n [place] with family/friends and states he is indep with all his ADL's. No use of home O2 , no dme, no HD. Pt has been on Xarelto only. Pt plans to retrurn home. Pt's physical address is : [address] [place] [address] [address] Patient's PCP is: [facility] Patient's insurance: [facility] Coverage concerns: Medication coverage/concerns: Rx Bedside Delivery: [facility] resources utilized / needed: tbd Assistance [...] 09/14/172032 Date of Service: 09/14/172032 Status: Signed Repairer Hairspring: Debbie Perez RPH (Pharmacist) Initiation of Vancomycin Pharmacy Dosing Live Robertson 52 y.o. male 1.803 m (5' 10.98") 91.5 kg (201 lb 11.5 oz) Body mass index is 28.15 kg/m. SCr (from [facility], 09/14/2017): 0.94mg/dL Est CrCl: ~100mL/min WBC (from [facility], 09/14/2017): 11.5K/uL Indications: Sepsis From provider [...] 0100. Patient is continuing therapy started at [facility] on 09/10/2017 with regimen of 1500mg IVPB [...] 09/14/171840 Date of Service: 09/14/171840 Status: Signed Repairer Hairspring: Debbie Perez RPH (Pharmacist) Clinical Pharmacy Note: Renal Monitoring Live Robertson 52 y.o. male Ht Readings from Last 1 Encounters: 09/14/17 1.803 m (5' 11") Wt Readings from Last 1 Encounters: 09/14/17 91.5 kg (201 lb 11.5 oz) SCr (from [facility] on 09/14/2017) = 0.94mg/dL Est CrCl ~ 100mL/min Pharmacy dosing for renal function per Dr. Kmuar. Currently, there are no medications needing to [...] | | | | | [place] [address] | | | | | | [phone] | | | | | | | [...] | | | Fingerstick | performed at [facility];[address] | | LAB | | | | [address] [facility];[place], [place] | | | | | | [address] | | | | + + + [...] | | | Basophils | performed at [facility], [address] | [address] | LAB | | | | [address], | | | | | | [place] [address] | | | | + + + [...] | | | | | [place] [address] | | | | + + + [...] | | | | | | at [facility], [address] | | | | | | [address], | | | | | | [place] [address] | | | | + + + [...] | | | Fingerstick | performed at [facility];[address] | | LAB | | | | [address];[place] | | | | | | [address] | | | | + + + [...] | | | Fingerstick | performed at [facility];[address] | | LAB | | | | [address];[place] | | | | | | [address] | | | | + + + [...] ON | | | | | | [id number] @1226 | | | | | | NSTesting performed at | | | | | | [facility];[address] [place] [address] | | | | | | Bl;[place] [address] | | | | + + + [...] | | | Fingerstick | performed at [facility];[address] | | LAB | | | | [address];[place], [place] | | | | | | [address] | | | | + + + [...] | | | Fingerstick | performed at [facility];[address] | | LAB | | | | [address];[place] | | | | | | [address] | | | | + + + [...] EXTERNAL | | | | performed at [facility], [address] | | LAB | | | | [address], | | | | | | [place] [address] | | | | + + + [...] | | | Basophils | performed at [facility], [address] | K/uL | LAB | | | | [address], | | | | | | [place] [address] | | | | + + + [...] EXTERNAL | | | | performed at [facility], [address] | | LAB | | | | [address], | | | | | | [place] [address] | | | | + + + [...] | | | | | [place] [address] | | | | + + + [...] | EXTERNAL | | | A1c | [facility] | | LAB | | | [...] | | | | | performed at [facility], [address] | | | | | | [facility], | | | | | | [place], [place] [address] | | | | + + + [...] | | | | | | at [facility], [address] | | | | | | [address], | | | | | | [place] [address] | | | | + + + [...] | | | Cholesterol | performed at [facility], [address] | | LAB | | | , | [address], | | | | | Calculated, | [place] [address] | | | | | External | [...] | | | Fingerstick | performed at [facility] | | LAB | | | | [address];[place], [place] | | | | | | [address] | | | | + + + [...] pericardium is normal. | | | MEASUREMENTS Model And Mold Maker: YOAN Authenticated by: | | | Joon [facility] Report Date/Time: 09-15-2017 21:22:37 | | + + + + + | Procedure Note | + + | Hung Pagan Conversion - 12/06/2018 4:36 AM PDT Patient Name: Sriram ROBERTSON | | of : 1965 Performing Physician: Joon | | Teofilo INDICATIONS------ | | -----endocarditis [...] The pericardium is normal. | | MEASUREMENTS Model And Mold Maker: ASHLYNuthenticated by: Joon Dougherty | | Date/Time: [...] | |MEASUREMENTS | | | | | |Model And Mold Maker: YOAN | |Authenticated by: Joon Red | [...] | | | Fingerstick | performed at [facility];[address] | | LAB | | | | [facility];[place], [place] | | | | | | [address] | | | | + + + [...] | | | Fingerstick | performed at [facility];[address] | | LAB | | | | [address];[place], [place] | | | | | | [address] | | | | + + + [...] | | | Basophils | performed at [facility], [address] | K/uL | LAB | | | | [address], | | | | | | [place] [address] | | | | + + + [...] EXTERNAL | | | | performed at [facility], [address] | | LAB | | | | [address], | | | | | | [place] [address] | | | | + + + [...] EXTERNAL | | | | performed at [facility], [address] | | LAB | | | | [address], | | | | | | [place] [address] | | | | + + + [...] [address], | | | | | | [place] [address] | | | | + + + [...] | | | Fingerstick | performed at [facility] | | LAB | | | | [address];[place], [place] | | | | | | [address] | | | | + + + [...] | | | Fingerstick | performed at [facility];[address] | | LAB | | | | [address];[place] | | | | | | [address] | | | | + + + [...] | | | Fingerstick | performed at [facility];[address] | | LAB | | | | [address];[place], [place] | | | | | | [address] | | | | + + + [...]
--- OUTSIDE RECORDS SUMMARY | ~2019-04-07 | XMS | Encounter Summary ---
Demographics + + + | Address | [address] | | | [place] [address] | + + + | Home Phone [...] Team Providers + +------+ + | Care Materials Intern Name | Role | Phone | + +------+ + PCP | Unavailable | + +------+ + Encounter Details +--------+ + + + + | Date | Type | Department | Care Team | Description | +--------+ + + + + | 06/14/ | Orders Only | [facility] | Conversion | | | 2014 | | [facility] | Transaction, | | | | | [address] | Provider Unknown | | | | | [place], [place] | [phone] | | | | | [address] | | | | | | [phone] | | | +--------+ + + + [...] [place]ANT[place] | | | | | | [place] [address] | | | | | | [phone] | | | | | | | [...]
--- OUTSIDE RECORDS SUMMARY | ~2019-04-07 | XMS | Encounter Summary ---
Demographics + + + | Address | [address] | | | [place] [address] | + + + | Home Phone | | + + + | Preferred Language | Unknown | + + + | Marital Status | Legally | + + + | Caodaism Affiliation | 1041 | + + + [...] Team Providers + +------+ + | Care Packaging Tech Name | Role | Phone | + [...] NEPHROLOGY [address] | MD [address] | Appointment | | | | [address] | [address] [place] | | | | | [place], [place] | [place] [address] | | | | | [address] | [phone] | | | | | [phone] | | | +--------+ + + + [...] | | | | | [place] [address] | | | | | | [phone] | | | | | | | | +--------+---------+ + + + documented as of this encounter Visit Diagnoses Not on filedocumented in this encounter"
--- OUTSIDE RECORDS SUMMARY | ~2019-04-07 | XMS | Encounter Summary ---
Demographics + + + | Address | [address] | | | [place] [address] | + + + | Home Phone | | + + + | Preferred Language | Unknown | + + + | Marital Status | Legally | + + + | Cheondoism Affiliation | 1041 | + + + | Race | Unknown | + + + | Ethnic Group | Unknown | + + + Author + + + | Author | [facility] | | | and [place] | + + + | Organization | [facility] | | | [...] Team Providers + +------+ + | Care Consulting Solution Director Name | Role | Phone | + [...] NEPHROLOGY [address] | [address] | | | | | [address] | [address] [place] | | | | | [place], [place] | [place] [address] | | | | | [address] | [phone] | | | | | [phone] | | | +--------+ + + + [...] SANT[place] | | | | | | [place] [address] | | | | | | [phone] | | | | | | | [...]
--- OUTSIDE RECORDS SUMMARY | ~2019-04-07 | XMS | Encounter Summary ---
Demographics + + + | Address | [address] 1974 | | | [place] [address] | + + + | Home Phone [...] Team Providers + +------+ + | Care Sample Cutter Name | Role | Phone | [...] | | | | | | | grand traverse or | | | | | | [...] Description | +--------+---------+ + + + | 02/11/ | Surgery | [facility] | Ally, | CV COR ANGIO | | 2018 | | CENTER CV [facility]TRA OP | Juan Ornelasin, | | | | | [address] | [address] | | | | | [place], [place] | [address] [place], | | | | | [address] | [place] [address] | | | | | [phone] | [phone] | | | | | | | [...] was diagnosed with a non- ST segment MO. He was evaluated by Dr. Canales and [...] The patient was fit for [facility] to [facility] ([facility]) on 02/28/19. Problems addressed during hospital stay: 1)Low EF with LV thrombus: On Xarelto INFECTION PREVENTIONIST for PAF (pt remained SR throughout hospitalizati on), however dt concern for bleeding was started on Coumadin instead. Goal INR 2-3. F/u with cardiology 2)CKD/ARF: Nephrology following patient closely throughout hospitalization. Cr increased h owever improved with hydration. Pt to f/u with his operator maintainer outpatient. 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 08/12/2014 Vitamin D deficiency 10/13/2017 Past Surgical History: Procedure Laterality Date CARDIAC CATHERIZATION N/A 02/11/2019 Procedure: CV COR ANGIO; Surgeon: Juan Canales MD; Location: [facility] CV LAB CORONARY ARTERY BYPASS GRAFT N/A 02/15/2019 Procedure: CORONARY ARTERY BYPASS GRAFT X4 WITH TAKEDOWN LEFT INTERNAL MAMMARY ARTERY, EVH RIGHT SAPHONUS VEIN; Surgeon: Liban Nair MD; Location: [facility] MAIN OR Allergies Allergen Reactions Penicillins Anaphylaxis, [...] to start cardiac rehabilitation in accordance with wedding decorator recommendations. Pt advised not to drive for [...] manage prescriptions until pt has seen seen Type Disk Quality Control Supervisor and Primary Care Physician, who will resume [...] on file. Follow up: Yue Mcguire PA-C [address] [facility] [address] [facility] [phone] Liban Nair MD [address] [facility] [address] [facility] [address] Schedule an appointment as soon as possible for a visit on 03/13/2019 Post-op Juan Canales MD [address] [facility] [address] [facility] [address] Schedule an appointment as soon as [...] | | | | | | 4 [id number] to 260 | | | | | | | Give 6 | | | | | | | to 300 Give 8 | | | | | | | [email or web address] to 350 Give | | | | [...] a long and complicated course during his [facility] hospitalization. In brief he is status post [...] was completed later after rounds. Dictation software, [employer], was used which may contain error for [...] mg Oral Daily - Warfarin dextrose 10% Rafael, Juan jeong MD - 02/28/2019 8:30 AM PSTFormatting of this note might be different from the [facility] Service: Cardiology Progress Note Hospital Day: [...] f/u with pt. Juan Canales MD 02/28/2019 arah, Jacinda Willett RN - 02/28/2019 6:05 AM PSTHourly rounding uneventful. Chart check complete. Lorena Smith RN Reji galindo MD - 02/27/2019 3:55 PM PSTFormatting of this note might be different from t he original. 9103/9103- Hospital Day: LOS: 16 days Joselito Robertson is a 53 y.o. man who has had a long and complicated course during his [facility] hospitalization. In brief he is status post [...] was not given a dose on the third but was resumed on the fourth and did also receive a dose today. [...] was completed later after rounds. Dictation software, [employer], was used which may contain error for [...] this note might be different from the [facility] Service: Cardiology Progress Note Hospital Day: [...] Barrow PA-C - 02/27/2019 8:17 AM PST [facility] Service: Cardiothoracic Surgery Progress Note ROOM: [...] L/24 hrs +unmeasured CT: Removed BM: x /24 hrs OBJECTIVE Vital Signs: BP 111/58 | [...] MONOPCT 8.27 7.85 8.71 Recent Labs Lab 02/27/1934802/26/19 0404 02/25/19 040 NA 140 144 141 K 4.9 4.8 [...] hours. No results for input(s): PHART, PO2ART, QCP8MKS, B5BJMYIM, BEART in the last 168 hours. Recent Labs Lab 02/27/1934802/26/1940302/25/1940602/24/19 0422 02/23/19 0424 02/22/19 2258 INR 2.7 [...] Continue Step Down Unit care. Discharge to [facility] Bed Nephrology Consult. Code Status: Full Code The patient has been seen, all new lab results and imaging reviewed, and the plan discussed with the attending provider, Dr. Matias KHAN, PAIndigoC 02/27/2019 Associated attestation - Mark Salcedo MD [...] Lizarraga MD - 02/26/2019 9:05 AM PST [facility] Service: Infectious Disease Progress Note Hospital Day: [...] A/B, NAAT NEGATIVE CLNEG C Diff Strain [id number], Stool 027 NAP1 BI PRESUMPTIVE NEGATIVE POC [...] might be different fro m the original. [facility] Service: Cardiology Progress Note Hospital Day: [...] Barrow PA-C - 02/26/2019 7:41 AM PST [facility] Service: Cardiothoracic Surgery Progress Note ROOM: [address] [place] [address] Hospital Day: LOS: 15 days Post-Op Day: [...] hours. No results for input(s): PHART, PO2ART, EXS6ILA, B7HBMMJE, BEART in the last 168 hours. Recent Labs Lab 02/26/1940302/25/1940602/24/1942102/23/1942302/22/198 INR 2.9 2.2 1.7 1.2 -- PTT [...] Continue Step Down Unit care. Discharge to [facility] Swing Bed pending Life Vest place ment. [...] minimal assist. Lauren Diamond RN 02/26/2019 6:13 omi Garcia ARNP - 02/25/2019 10:06 AM PST . [facility] Service: Cardiothoracic Surgery Progress Note ROOM: [address] [place] [address] Hospital Day: LOS: 14 days Post-Op Day: [...] hours. No results for input(s): PHART, PO2ART, XGQ6XYL, C5PNAYHW, BEART in the last 168 hours. Recent [...] Continue Step Down Unit care. Placement with [facility] Swing Bed on Tuesday. Code Status: Full Code The patient has been seen, all new lab results and imaging reviewed, and the plan discussed with the attending provider, Dr. Matias GARCIA, SHABBIR 02/25/2019 Associated attestation - Mark Salcedo MD [...] might b e different from the original. [facility] Service: Cardiology Progress note Hospital Day: [...] PRN Valeria Khan PA-C 650 mg at 10/29/19 2050 albumin 5% IVPB 25 g 25 g Intravenous PRN BELINDA Erickson 500 mL/hr at 02/15/19 30 12.5 g at 02/15/19 1930 albuterol [...] 95.3 kg (02/11/19 0311)Last: 85.8 kg (02/25/19 0621)Difference: -9.5kg Physical Exam Constitutional: He is oriented [...] note might be different from the o shantelleinal. [facility] Service: Cardiothoracic Surgery Progress Note ROOM: [address] [place] [address] Hospital Day: LOS: 13 days Post-Op Day: [...] hours. No results for input(s): PHART, PO2ART, AYS4EQP, L8SQPKQZ, BEART in the last 168 hours. Recent Labs Lab 02/24/19 0422 02/23/19 0424 02/22/19 2258 02/22/19 0402 INR 1.7 1.2 -- -- [...] Continue Step Down Unit care. Placement with [facility] Swing Bed on Tuesday. Code Status: Full Code The patient has been seen, all new lab results and imaging reviewed, and the plan discussed with the attending provider, Dr. Matias GARCIA, CAR HEAD LINER INSTALLER 02/24/2019 Associated attestation - Mark Salcedo MD [...] might b e different from the original. [facility] Service: Cardiology Progress note Hospital Day: [...] lozenge 1 lozenge Buccal Q2H PRN BELINDA rEickson ondansetron (ZOFRAN) injection 4 mg 4 mg [...] 02/23/2019 2:09 PM Halima Marks [facility] - 1 04/25/2018 1:55 PM PDT Clinical Pharmacy Note: Warfarin Continuation of Therapy Referring Provider: Valeria Robertson male 53 y.o. Indication Atrial Fibrillation, LV thrombus Goal INR: 2-3 Other Anticoagulation: Heparin drip (xarelto listed on INFECTION PREVENTIONIST med list) Drug Interactions: aspirin may increase list of bleeding. INFECTION PREVENTIONIST med list reviewed and no sign ificant [...] modify therapy as indicated. Thank you. Alexander. Willie RPH I have read and agree with the resident's assessment and plan. Escalating warfarin dose tod ay to obtain therapeutic level more quickly and transition off of heparin drip in anticipati on of discharge to [facility] this weekend. If INR increases by more [...] Angelo MD - 02/23/2019 12:59 PM PDT [facility] Service: Cardiology Progress note Hospital Day: [...] - - - - Resp - - Weight 195 lbs 2 oz - [...] 95.3 kg (02/11/19 0311)Last: 88.5 kg (02/23/19 06)Difference: -6.8kg Physical Exam Constitutional: He is oriented [...] Status: Full Code Douglas Vargas MD 02/23/19 Marlon Butt ARNP - 02/23/2019 8:29 AM PDTFormatting of this note might be different from the or iginal. [facility] Service: Cardiothoracic Surgery Progress Note ROOM: [...] mL/24 hrs +unmeasured CT: Removed BM: x 24 hrs OBJECTIVE Vital Signs: BP 141/72 | [...] Shea Andrews MD LABS: Recent Labs Lab 02/23/19 0424 02/22/19 0402 02/21/19 0535 WBC 10.49 11.18* 8.93 [...] hours. Recent Labs Lab 02/23/19 0424 02/22/19 0402 02/21/19 0546 MG 2.0 1.8 2.0 No results for input(s): AMYLASE in the last 168 hours. No results for input(s): PHART, PO2ART, RBF1FTW, F8WLTSUL, BEART in the last 168 hours. Recent [...] Continue Step Down Unit care. Placement with [facility] Swing Bed pending. Anticipate d ischarge this weekend. Code Status: Full Code The patient has been seen, all new lab results and imaging reviewed, and the plan discussed with the attending provider, Dr. Luisana GARCIA, SHABBIR 02/23/2019 Associated attestation - Liban Nair [...] from the origi nal. Pharmacy Warfarin Monitoring: Joseltio Robertson male 53 y.o. Pharmacy consulted to dose warfarin per: BELINDA Luna INDICATION: Atrial Fibrillation, LV thrombus OTHER ANTICOAGULATION: heparin drip inpatient (Xarelto listed on INFECTION PREVENTIONIST med list) DRUG INTERACTIONS: aspirin and plavix may increase list of bleeding. INFECTION PREVENTIONIST med list reviewed and no significant DDI [...] Angelo MD - 02/22/2019 1:39 PM PDT [facility] Service: Cardiology Cross coverage for Dr. [...] 17 g 17 g Oral Daily PRN BLEINDA Erickson 17 g at 02/16/19 1025 potassium [...] WITH PATIENT/ care team ct sx Montserrat Velazcoki, ANSWERS ALL QUES TIONS IN DETAIL, VERBALIZES UNDERSTANDING WILL SIGN OFF, CALL US PRN FOR ANY QUESTIONS, THANKS FOR THE CONSULT Stanislav Patricio MD ose, Yomi Manzon, CAR HEAD LINER INSTALLER - 02/22/2019 7:48 AM PDT [facility] Service: Cardiothoracic Surgery Progress Note ROOM: [address] [place] [address] Hospital Day: LOS: 11 days Post-Op Day: [...] 7.383 7.329* 7.309* PO2ART 94 94 83 [id number] 39 43 39 [id number] 97 97 95 Recent Labs Lab 02/22/19 [...] Cardiac Unit care for now. Placement with [facility] Swing Bed pending. Antici fleming discharge on [...] OTHER ANTICOAGULATION: none inpatient (Xarelto listed on INFECTION PREVENTIONIST med list) DRUG INTERACTIONS: aspirin and plavix may increase list of bleeding. INFECTION PREVENTIONIST med list reviewed and no significant DDI [...] indication. Meredith Murphy, PharmD, BCPS Montserrat Mott PA-C - 02/21/2019 11:50 AM PDTFormatting of this note might be different from the [facility] Service: Cardiothoracic Surgery Progress Note ROOM: [address] [place] [address]- Hospital Day: LOS: 10 days Post-Op Day: [...] 100 mg by mouth Daily. Yes Histori piat Provider, nitroglycerin (NITROSTAT) 0.4 mg SL tablet [...] LABS: Recent Labs Lab 02/21/19 0535 02/20/193 02/19/19411 WBC 8.93 9.11 11.44* HGB 11.1* 11.0* [...] 7.383 7.329* 7.309* PO2ART 94 94 83 [id number] 39 43 39 [id number] 97 97 95 Recent Labs Lab 02/15/19 [...] Cardiac Unit care for now. Placement with [facility] Bed pending. Bricei fleming discharge on 02/22. Code Status: Full [...] Mott PA-C - 02/20/2019 9:30 AM PDT [facility] Service: Cardiothoracic Surgery Progress Note ROOM: [address] [place] [address] Hospital Day: LOS: 9 days Post-Op Day: [...] 1 tablet by mouth Daily. 11/14/18 Yes Shae Pedraza MD insulin aspart (NOVOLOG) 100 units/mL [...] the last 168 hours. Recent Labs Lab 02/15/19232802/15/19200202/15/191818 PHART 7.383 7.329* 7.309* PO2ART 94 94 83 [id number] 39 43 39 [id number] 97 97 95 Recent Labs Lab 02/15/19 [...] Cardiac Unit care for now. Placement with [facility] Swing Bed pending. Code Status: Full Code [...] stable throughout shift. Chart check co mplete. Yomi Butt ARNP - 02/19/2019 9:00 AM PDTFormatting of this note might be different from the shaggy montelongo [facility] Service: Cardiothoracic Surgery Progress Note [facility]: [facility] Day: LOS: 8 days Post-Op Day: [...] 1 tablet by mouth Daily. 08/08/18 eDwey Pedraza MD fenofibrate (LOFIBRA, TRIGLIDE) 160 mg [...] 8.13 7.02 10. Recent Labs Lab 02/19/192 02/18/198 02/17/19 0444 NA 140 139 142 K 4.4 5.2* 4.7 CL 108 109 111* CO2 23 26 BUN 55* 64* 54* CALCIUM 8.1* 7.9* 7.9* Phosphorus: Lab Results Component Value Date PHOS 3.7 02/15/2019 No results for input(s): LABALBU in the last 168 hours. Recent Labs Lab 02/19/1941102/18/1940702/17/19443 MG 2.6* 3.0* 2.8* No results for input(s): AMYLASE in the last 168 hours. Recent Labs Lab 02/15/19 2329 02/15/19200202/15/19 1819 PHART 7.383 7.329* 7.309* PO2ART 94 94 83 [id number] 39 43 39 [id number] 97 97 95 Recent Labs Lab 02/15/19 [...] DETAIL, VERBALIZ ES UNDERSTANDING Stanislav Patricio MD ylee, Walker Pendleton RN - 5:31 PM PDTVSS, BM today, [...] this note might be different from the [facility] Service: Cardiothoracic Surgery Progress Note ROOM: [address] [place] [address] Hospital Day: LOS: 7 days Post-Op Day: [...] Oral BID Continuous Infusions dexmedetomidine Stopped (02/16/19 1605) dextrose 10% EPINEPHrine infusion Stopped (02/16/19 1550) nitroglycerin in dextrose Stopped (02/15/19 1308) phenylephrine 30 mcg/min (02/16/19 3999) vasopressin (VASOSTRICT) infusion (shock) PRN Medications albumin, [...] CL 109 111* -- 117* CO2 26 -- 27 BUN 64* 54* -- [...] 7.383 7.329* 7.309* PO2ART 94 94 83 [id number] 39 43 39 [id number] 97 97 95 Recent Labs Lab 02/15/19 [...] Connor Wallace ARNP - 02/18/2019 3:19 AM Merged with [facility] Service: Dough Brake Machine Operator Cardiothoracic Surgery Consult and Follow Up Date/Time:02/18/2019 [...] CKD stage 3, psoriasis who presented to [facility] due to a 2 day history of [...] x 4 + EVH with Dr. Nair 10/25 - Extubated shortly after midnight 02/17- Remains [...] (ASA, plavix, betablocker, statin) - extubated to MI. - Post operative management per CTS (chest [...] note might be different from the [facility] Problem List: Principal Problem: NSTEMI (non-ST [...] Oral BID current Meds: dexmedetomidine Stopped (02/16/19 4104) dextrose 10% EPINEPHrine infusion Stopped (02/16/19 1550) nitroglycerin in dextrose Stopped (02/15/19 1308) phenylephrine 30 mcg/min (02/16/19 765) vasopressin (VASOSTRICT) infusion (shock) P.E. Vs; reviewed [...] Sanders PA - 1 4:11 PM PDT [facility] Service: Cardiothoracic Surgery Progress Note ROOM: 9[address]88/[id number] Hospital Day: LOS: 6 days Post-Op Day: [...] 33.3* 37.7* PLT 132* 137* 131* MONOPCT 10.22 11.75 7.20 Recent Labs Lab 02/17/19 0444 [...] the last 168 hours. Recent Labs Lab 02/17/19 0444 02/16/19 0434 02/15/19 1345 MG 2.8* 2.6* 3.0* No results for input(s): AMYLASE in the last 168 hours. Recent Labs Lab 02/15/19 2329 02/15/19200202/15/19 1819 PHART 7.383 7.329* 7.309* PO2ART 94 94 83 [id number] 39 43 39 [id number] 97 97 95 Recent Labs Lab 02/15/19 [...] Connor Lim ARNP - 02/17/2019 1:27 AM Merged with [facility] Service: Dough Brake Machine Operator Cardiothoracic Surgery Consult and Follow Up Date/Time:02/17/2019 [...] CKD stage 3, psoriasis who presented to [facility] due to a 2 day history of [...] (ASA, plavix, betablocker, statin) - extubated to MI. - Post operative management per CTS (chest [...] Oral BID current Meds: dexmedetomidine Stopped (02/16/19 9182) dextrose 10% EPINEPHrine infusion 1 mcg/min (02/16/19 [...] Sanders PA - 1 9:38 AM PDT [facility] Service: Cardiothoracic Surgery Progress Note ROOM: [address] [place] [address] Hospital Day: LOS: 5 days Post-Op Day: [...] C (99 F) (Infrared Device) Comment (Src): Silverthorne-Roland catheter | Resp 16 | Ht 1.803 [...] Shea Andrews MD LABS: Recent Labs Lab 02/16/1943302/15/19134402/15/19133802/15/19 0549 02/13/19 0652 WBC 18.13* 17.53* -- -- 10.24 10.43 HGB 11.4* 12.8* 11.6* < > 11.7* 11.4* HCT 33.3* 37.7* 34* < > 34.5* 33.0* PLT 137* 131* -- -- 239 204 MONOPCT 11.75 7.20 -- -- -- 8.98 < > = values in this interval not displayed. Recent Labs Lab 02/16/1943302/15/19233802/15/19200102/15/19 1345 02/15/19 0549 02/11/19 0743 NA 151* [...] last 168 hours. Recent Labs Lab 02/15/19232802/15/19200202/15/19 1819 PHART 7.383 7.329* 7.309* PO2ART 94 94 83 [id number] 39 43 39 [id number] 97 97 95 Recent Labs Lab 02/15/19 [...] Celeste Hicks ARNP - 02/16/2019 6:57 AM Merged with [facility] Service: Dough Brake Machine Operator Cardiothoracic Surgery Consult and Follow Up Date/Time:02/16/2019 [...] CKD stage 3, psoriasis who presented to [facility] due to a 2 day history of [...] C (99 F) (Infrared Device) Comment (Src): Silverthorne-Roland catheter | Resp 19 | Ht 1.803 [...] (ASA, plavix, betablocker, statin) - extubated to MI. - Post operative management per CTS (chest [...] 7.38 CO2: 39 HCO3: 23 SO2 97% onnor Crews RN - 02/15/2019 10:52 PM PDTPatient switched to SPN-CPAP mode on ventilator. FiO2 .30, PE EP 8. RR currently 16, VT 600. 10:5 4 PM PDTConnor Crews RN - 02/15/2019 9:36 PM PDTDr. Nair [...] | BMI 28.93 kg/m General appearance: [facility]: Clear to auscultation by [...] presented with: "Chest Pain" Recommendations: No acute INFANT TODDLER LEAD TEACHER indication Gentle IVF. Plan to stop IVF [...] the ON pump repor t by phone [phone] @ 2236 OFF bypass report received @ 1152 Gave Pt's ex- the OFF pump report [...] presented with: "Chest Pain" Recommendations: No acute INFANT TODDLER LEAD TEACHER indication Stop IVF Strict low sodium in [...] Sue Calderon MD - 8:52 AM PDT [facility] Service: Hospitalist Progress Note Hospital Day: LOS: 3 days Post-Op Day: Day of Surgery SUBJECTIVE Patient Summary: 53-year-old male who has a known history of coronary arter y disease, status post stenting approximately in 2007, afib on xarelto, hypertension, HLD, D M type II who was transferred from [facility] for chest pain and was found to [...] sodium chloride 0.9% 75 mL/hr at 02/13/19 1240 PRN Medications acetaminophen, Hypoglycemia Management AND POCT [...] and morphine prn. Continue aspirin, BB, statin. Mindy argueta. Dr. Nair consulted, plan for CABG while inpatient, currently scheduled for . Chronic diarrhea: Deshler to be related to lactose intolerance. He [...] this note might be different from the [facility] Service: Cardiology Progress Note Hospital Day: [...] Jacinda Damon RN - 02/13/2019 10:39 PM [id number] Patient complained of CP 1x nitroglycerin given after 5 min RN reassessed and patient stated that the pain has subsided. Patient SOB when ambulat ing to the restroom. 1L NC on while sleeping. Otherwise, hourly rounding uneventful. Lorena Smith RN Vanna Gonzalez MD - 02/13/2019 11:41 AM PDTFormatting of this note might be different from the origin [facility] Problem List: Principal Problem: NSTEMI (non-ST elevated [...] dextrose 10% heparin infusion 12 Units/kg/hr (02/13/19 3364) sodium chloride 0.9% 1,000 mL (02/13/19 8859) P.E. BP 115/72 | Pulse 78 | [...] risk of JAMESON are undertaken. No acute INFANT TODDLER LEAD TEACHER indication Gentle IVF as ordered Strict low [...] MD - 02/13/2019 8:59 AM PDT . [facility] Service: Cardiology Progress Note Hospital Day: [...] this note might be different from the [facility] Service: Hospitalist Progress Note Hospital Day: LOS: 2 days Post-Op Day: Day of Surgery SUBJECTIVE Patient Summary: 53-year-old male who has a known history of coronary arter y disease, status post stenting approximately in 2007, afib on xarelto, hypertension, HLD, D M type II who was transferred from [facility] for chest pain and was found to [...] dextrose 10% heparin infusion 12 Units/kg/hr (02/13/19 0740) sodium chloride 0.9% 1,000 mL (02/13/19 0440) PRN Medications acetaminophen, Hypoglycemia Management AND POCT [...] [place] 54.43 cm/s Pulm Vein Peak D [place] 46.07 cm/s LA Volume Index 44 mL/m2 [...] PV Regurgitation Velocity 132.5 cm/s AV Deceleration Braxton 224.61 cm/s2 AV Deceleration Time 1,390.28 msec [...] Color, UA YELLOW Clarity, UA HAZY Specific [place], Urine 1.020 1.002 - 1.030 Leukocyte esterase, [...] prn. Continue aspirin, BB, statin. Holdin bipin xerelto. Dr. Nair consulted, plan for CABG [...] (expected value, per lead. Last 2 values: , 19). R groin site C/D/I. Per dayshift, [...] note might be different from the original. [facility] Service: Hospitalist Progress Note Hospital Day: LOS: 1 day Post-Op Day: Day of Surgery SUBJECTIVE Patient Summary: 53-year-old male who has a known history of coronary arter y disease, status post stenting approximately in 2007, afib on xarelto, hypertension, HLD, D M type II who was transferred from [facility] for chest pain and was found to [...] dextrose 10% heparin infusion 12 Units/kg/hr (02/12/19 4666) sodium chloride 0.9% 75 mL/hr at 02/12/19 [...] PV Regurgitation Velocity 132.5 cm/s AV Deceleration Braxton 224.61 cm/s2 AV Deceleration Time 1,390.28 msec [...] Color, UA YELLOW Clarity, UA HAZY Specific [place], Urine 1.020 1.002 - 1.030 Leukocyte esterase, [...] prn. Continue aspirin, BB, statin. Holdin bipin xerelto. Dr. Nair consulted, plan for CABG [...] Sue Avitia MD 02/12/2019 Yomi Butt AR NUT DEHYDRATOR OPERATOR - 02/12/2019 8:54 AM PDTCalled [facility] and informed that patient picked up h is Xarelto on 02/10/19. Per documentation and patient information. Patient took his last dos e of Xarelto on Tuesday morning (02/10/19). He then presented to [facility]'s ED on the of 02/10 and was transferred to [facility] early Tuesday (02/11/2019). Additionally, per ED documentation, the patient has not seen a Type Disk Quality Control Supervisor in 8 years, how ever he was [...] Montenegro MD - 02/12/2019 8:48 AM PDT [facility] Service: Cardiology Progress Note Hospital Day: [...] slightly. CABG soon. Juan Canales MD 02/12/2019 Annie Ruiz MD - 02/12/2019 6:51 AM PDTFull consult to follow after review of angiogram Renal Consultation Ale Alcala RN - 02/12/2019 5:45 AM PDTVSS. Denied CP throughout shift. Pt up to [facility]. [facility] site is c/d/i. Hourly rounding uneventful otherwise. Chart check complete. Ale Bernard, ROCAEL Kerline Rojas RN - 02/11/2019 7:00 PM PDTPt transferred from laborer steel handling to the floor at 1344 and remained [...] Calderon MD - 02/11/2019 12:00 PM PDT [facility] Service: Hospitalist Progress Note Hospital Day: [...] Confirmed by MUSE READ ONLY, -COMPUTER (500), image editor Fajardo, Shea (18) on 02/11/2019 12:59 [...] heart failure: last echo done 11/01/18 from [facility] everyw here shows EF of 45-50%. [...] 2019 | Visit | | [address] | | | | | | [address] | | | | | | [place] [address] | | | | | | [phone] | | | | | | | [...] + + + | CBC WITH | RCIKIE | 02/13/2019 | | Results for this [...] | | n - | | | | | | 2018 | | | [...] | | | RN: | | | [id number] | | | [id number] | | | riteri | | | [...] | | | St. | | | [place] | | | y | | | [...] | | | St. | | | [place] | | | y H. | | [...] | | | St. | | | [place] | | | y H. | | [...] | | | St. | | | [place] | | | y H. | | [...] | | | St. | | | [place] | | | y H. | | [...] | | | St. | | | [place] | | | y H. | | [...] | | e of | | | [place] | | | | | | dasilva [...] | | | POC | performed at [facility];[address] | | LABORATORY | | | | [address];[place] | | | | | | [address] | | | | + + + + + + + + | Specimen | + + | | + + + + + + + | Performing | Address | City/State/Zipcode | Phone Number | | Organization | | | | + + + + + | [facility] | [address] | [place] [address] | [phone] | + + + + + Protime [...] | | | | | performed at [facility];[address] | | | | | | [address] [facility];[place], [place] | | | | | | [address] | | | | + + + + + + + + | Specimen | + + | Blood | + + + + + + + | Performing | Address | City/State/Zipcode | Phone Number | | Organization | | | | + + + + + | [facility] | [address] | [place] [address] | [phone] | + + + + + Magnesium (02/28/2019 4:39 AM PST) + + + + + + | Component | Value | Ref Range | Performed | Pathologist | | | | | At | Signature | + + + + + + | Magnesium | 2.0Comment: Testing | 1.7 - 2.4 mg/dL | [facility] | | | | performed at [address], [address] | | LABORATORY | | | | [address], | | | | | | [place] [address] | | | | + + + + + + + + | Specimen | + + | Blood | + + + + + + + | Performing | Address | City/State/Zipcode | Phone Number | | Organization | | | | + + + + + | [facility] | [address] | [place] [address] | [phone] | + + + + + CBC [...] | | | Absolute | performed at [facility], [address] | LABORATORY | | | | [address], | | | | | | [place] [address] | | | | + + + + + + + + | Specimen | + + | Blood | + + + + + + + | Performing | Address | City/State/Zipcode | Phone Number | | Organization | | | | + + + + + | [facility] | [address] | [place] [address] | [phone] | + + + + + Basic [...] | 8.7 | 8.5 - 10.5 | [facility] | | | | | mg/dL | LABORATORY | | + + + + + + | Estimated | 40 (L)Comment: GFR <60: | >60 | [facility] | | | GFR | CHRONIC [...] | | | | | | MDRD IDWY traceable | | | | | | equation.Testing | | | | | | performed at [facility], [address] | | | | | | [facility], | | | | | | [place] [address] | | | | + + + + + + + + | Specimen | + + | Blood | + + + + + + + | Performing | Address | City/State/Zipcode | Phone Number | | Organization | | | | + + + + + | [facility] | [address] | [place] [address] | [phone] | + + + + + POC [...] | | | POC | performed at [facility];[address] | | LABORATORY | | | | [address];[place], [place] | | | | | | [address] | | | | + + + + + + + + | Specimen | + + | | + + + + + + + | Performing | Address | City/State/Zipcode | Phone Number | | Organization | | | | + + + + + | [facility] | [address] | [place] [address] | [phone] | + + + + + POC Glucose (02/27/2019 5:25 PM PST) + + + + + + | Component | Value | Ref Range | Performed | Pathologist | | | | | At | Signature | + + + + + + | Glucose, | 205 (H)Comment: Testing | 65 - 99 mg/dL | [facility] | | | POC | performed at [facility];[address] | | LABORATORY | | | | [address];[place] | | | | | | [address] | | | | + + + + + + + + | Specimen | + + | | + + + + + + + | Performing | Address | City/State/Zipcode | Phone Number | | Organization | | | | + + + + + | [facility] | [address] | [place] [address] | [phone] | + + + + + POC Glucose (02/27/2019 4:48 PM PST) + + + + + + | Component | Value | Ref Range | Performed | Pathologist | | | | | At | Signature | + + + + + + | Glucose, | 191 (H)Comment: Testing | 65 - 99 mg/dL | [facility] | | | POC | performed at [facility];[address] | | LABORATORY | | | | [address];[place], [place] | | | | | | [address] | | | | + + + + + + + + | Specimen | + + | | + + + + + + + | Performing | Address | City/State/Zipcode | Phone Number | | Organization | | | | + + + + + | [facility] | [address] | [place] [address] | [phone] | + + + + + POC [...] | | | POC | performed at [facility];[address] | | LABORATORY | | | | [address];[place], [place] | | | | | | [address] | | | | + + + + + + + + | Specimen | + + | | + + + + + + + | Performing | Address | City/State/Zipcode | Phone Number | | Organization | | | | + + + + + | [facility] | [address] | [place] [address] | [phone] | + + + + + POC [...] | | | POC | performed at [facility];[address] | | LABORATORY | | | | [address];[place], [place] | | | | | | [address] | | | | + + + + + + + + | Specimen | + + | | + + + + + + + | Performing | Address | City/State/Zipcode | Phone Number | | Organization | | | | + + + + + | [facility] | [address] | [place] [address] | [phone] | + + + + + Protime INR (02/27/2019 3:49 AM PST) + + + + + + | Component | Value | Ref Range | Performed | Pathologist | | | | | At | Signature | + + + + + + | INR | 2.7Comment: REFERENCE | | [facility] | | | | RANGE:0.9 - [...] | | | | | performed at [facility];[address] | | | | | | [facility];[place] | | | | | | [address] | | | | + + + + + + + + | Specimen | + + | Blood | + + + + + + + | Performing | Address | City/State/Zipcode | Phone Number | | Organization | | | | + + + + + | [facility] | [address] | [place] [address] | [phone] | + + + + + Magnesium (02/27/2019 3:49 AM PST) + + + + + + | Component | Value | Ref Range | Performed | Pathologist | | | | | At | Signature | + + + + + + | Magnesium | 2.0Comment: Testing | 1.7 - 2.4 mg/dL | [facility] | | | | performed at [facility], [address] | | LABORATORY | | | | [address], | | | | | | [place] [address] | | | | + + + + + + + + | Specimen | + + | Blood | + + + + + + + | Performing | Address | City/State/Zipcode | Phone Number | | Organization | | | | + + + + + | [facility] | [address] | [place] [address] | [phone] | + + + + + CBC [...] 0.09Comment: Testing | 0.00 - 0.10 | [facility] | | | Absolute | performed at [facility], [address] | [address] | LABORATORY | | | | [address], | | | | | | [place] [address] | | | | + + + + + + + + | Specimen | + + | Blood | + + + + + + + | Performing | Address | City/State/Zipcode | Phone Number | | Organization | | | | + + + + + | [facility] | [address] | [place] [address] | [phone] | + + + + + Basic [...] | | | | | performed at [facility], [address] | | | | | | [address], | | | | | | [place] [address] | | | | + + + + + + + + | Specimen | + + | Blood | + + + + + + + | Performing | Address | City/State/Zipcode | Phone Number | | Organization | | | | + + + + + | [facility] | [address] | [place] [address] | [phone] | + + + + + POC [...] | | | POC | performed at [facility];[address] | | LABORATORY | | | | [address];[place], [place] | | | | | | [address] | | | | + + + + + + + + | Specimen | + + | | + + + + + + + | Performing | Address | City/State/Zipcode | Phone Number | | Organization | | | | + + + + + | [facility] | [address] | [place] [address] | [phone] | + + + + + POC Glucose (02/26/2019 4:51 PM PST) + + + + + + | Component | Value | Ref Range | Performed | Pathologist | | | | | At | Signature | + + + + + + | Glucose, | 157 (H)Comment: Testing | 65 - 99 mg/dL | [facility] | | | POC | performed at [facility];[address] | | LABORATORY | | | | [address];[place] | | | | | | [address] | | | | + + + + + + + + | Specimen | + + | | + + + + + + + | Performing | Address | City/State/Zipcode | Phone Number | | Organization | | | | + + + + + | [facility] | [address] | [place] [address] | [phone] | + + + + + POC Glucose (02/26/2019 11:45 AM PST) + + + + + + | Component | Value | Ref Range | Performed | Pathologist | | | | | At | Signature | + + + + + + | Glucose, | 119 (H)Comment: Testing | 65 - 99 mg/dL | [facility] | | | POC | performed at [facility];[address] | | LABORATORY | | | | [address];[place] | | | | | | [address] | | | | + + + + + + + + | Specimen | + + | | + + + + + + + | Performing | Address | City/State/Zipcode | Phone Number | | Organization | | | | + + + + + | [facility] | [address] | [place] [address] | [phone] | + + + + + POC [...] | | | POC | performed at [facility];[address] | | LABORATORY | | | | [address];[place], [place] | | | | | | [address] | | | | + + + + + + + + | Specimen | + + | | + + + + + + + | Performing | Address | City/State/Zipcode | Phone Number | | Organization | | | | + + + + + | [facility] | [address] | [place] [address] | [phone] | + + + + + Protime INR (02/26/2019 4:04 AM PST) + + + + + + | Component | Value | Ref Range | Performed | Pathologist | | | | | At | Signature | + + + + + + | INR | 2.9Comment: REFERENCE | | [facility] | | | | RANGE:0.9 - [...] | | | | | performed at [facility];[address] | | | | | | [address];[place] | | | | | | [address] | | | | + + + + + + + + | Specimen | + + | Blood | + + + + + + + | Performing | Address | City/State/Zipcode | Phone Number | | Organization | | | | + + + + + | [facility] | [address] | [place] [address] | [phone] | + + + + + Magnesium (02/26/2019 4:04 AM PST) + + + + + + | Component | Value | Ref Range | Performed | Pathologist | | | | | At | Signature | + + + + + + | Magnesium | 2.0Comment: Testing | 1.7 - 2.4 mg/dL | [facility] | | | | performed at [address], [address] | | LABORATORY | | | | [address], | | | | | | [place] [address] | | | | + + + + + + + + | Specimen | + + | Blood | + + + + + + + | Performing | Address | City/State/Zipcode | Phone Number | | Organization | | | | + + + + + | [facility] | [address] | [place] [address] | [phone] | + + + + + CBC [...] 0.08Comment: Testing | 0.00 - 0.10 | [facility] | | | Absolute | performed at [facility], [address] | [address] | LABORATORY | | | | [address], | | | | | | [place] [address] | | | | + + + + + + + + | Specimen | + + | Blood | + + + + + + + | Performing | Address | City/State/Zipcode | Phone Number | | Organization | | | | + + + + + | [facility] | [address] | [place] [address] | [phone] | + + + + + Basic [...] | >60Comment: GFR <60: | >60 | [facility] | [...] | | | | | performed at [facility], [address] | | | | | | [address] [facility], | | | | | | [place] [address] | | | | + + + + + + + + | Specimen | + + | Blood | + + + + + + + | Performing | Address | City/State/Zipcode | Phone Number | | Organization | | | | + + + + + | [facility] | [address] | [place] [address] | [phone] | + + + + + POC [...] | | | POC | performed at [facility];[address] | | LABORATORY | | | | [address];[place] | | | | | | [address] | | | | + + + + + + + + | Specimen | + + | | + + + + + + + | Performing | Address | City/State/Zipcode | Phone Number | | Organization | | | | + + + + + | [facility] | [address] | [place] [address] | [phone] | + + + + + Clostridium difficile DNA amplified (02/25/2019 5:42 PM PST) + + + + + + | Component | Value | Ref Range | Performed | Pathologist | | | | | At | Signature | + + + + + + | C. Diff | NEGATIVE | CLNEG | [facility] | | | Toxin A/B, | | | LABORATORY | | | NAAT | | | | | + + + + + + | C Diff | 027 NAP1 BI PRESUMPTIVE | | [facility] | | | Strain | NEGATIVEComment: | | LABORATORY | | | [id number] | Detection of 027 NAP1 BI | [...] | | | | | performed at [facility] | | | | | | [facility];[place], [place] | | | | | | [address] | | | | + + + + + + + + | Specimen | + + | Stool - Stool | | specimen (specimen) | + + + + + + + | Performing | Address | City/State/Zipcode | Phone Number | | Organization | | | | + + + + + | [facility] | [address] | [place] [address] | [phone] | + + + + + POC [...] | | | POC | performed at [facility];[address] | | LABORATORY | | | | [address];[place] | | | | | | [address] | | | | + + + + + + + + | Specimen | + + | | + + + + + + + | Performing | Address | City/State/Zipcode | Phone Number | | Organization | | | | + + + + + | [facility] | [address] | [place] [address] | [phone] | + + + + + POC Glucose (02/25/2019 12:05 PM PST) + + + + + + | Component | Value | Ref Range | Performed | Pathologist | | | | | At | Signature | + + + + + + | Glucose, | 242 (H)Comment: Testing | 65 - 99 mg/dL | [facility] | | | POC | performed at [facility];[address] | | LABORATORY | | | | [address];[place], [place] | | | | | | [address] | | | | + + + + + + + + | Specimen | + + | | + + + + + + + | Performing | Address | City/State/Zipcode | Phone Number | | Organization | | | | + + + + + | [facility] | [address] | [place] [address] | [phone] | + + + + + Clostridium [...] | | | | | performed at [facility] | | | | | | [address];[place] | | | | | | [address] | | | | + + + + + + + + | Specimen | + + | | + + + + + + + | Performing | Address | City/State/Zipcode | Phone Number | | Organization | | | | + + + + + | [facility] | [address] | [place] [address] | [phone] | + + + + + POC Glucose (02/25/2019 7:41 AM PST) + + + + + + | Component | Value | Ref Range | Performed | Pathologist | | | | | At | Signature | + + + + + + | Glucose, | 147 (H)Comment: Testing | 65 - 99 mg/dL | [facility] | | | POC | performed at [facility];[address] | | LABORATORY | | | | [address];[place], [place] | | | | | | [address] | | | | + + + + + + + + | Specimen | + + | | + + + + + + + | Performing | Address | City/State/Zipcode | Phone Number | | Organization | | | | + + + + + | [facility] | [address] | [place] [address] | [phone] | + + + + + POC [...] | | | POC | performed at [facility];[address] | | LABORATORY | | | | [address];[place], [place] | | | | | | [address] | | | | + + + + + + + + | Specimen | + + | | + + + + + + + | Performing | Address | City/State/Zipcode | Phone Number | | Organization | | | | + + + + + | [facility] | [address] | [place] [address] | [phone] | + + + + + Hepatic Function Panel (02/25/2019 4:07 AM PST) + + + + + + | Component | Value | Ref Range | Performed | Pathologist | | | | | At | Signature | + + + + + + | Protein, | 6.8 | 6.3 - 8.2 g/dL | [facility] | | | Total | | | [...] [facility] | | | | performed at [facility], [address] | | LABORATORY | | | | [address], | | | | | | [place] [address] | | | | + + + + + + + + | Specimen | + + | Blood | + + + + + + + | Performing | Address | City/State/Zipcode | Phone Number | | Organization | | | | + + + + + | [facility] | [address] | [place] [address] | [phone] | + + + + + Protime INR (02/25/2019 4:07 AM PST) + + + + + + | Component | Value | Ref Range | Performed | Pathologist | | | | | At | Signature | + + + + + + | INR | 2.2Comment: REFERENCE | | [facility] | | | | RANGE:0.9 - [...] | | | | | performed at [facility];[address] | | | | | | [address];[place] | | | | | | [address] | | | | + + + + + + + + | Specimen | + + | Blood | + + + + + + + | Performing | Address | City/State/Zipcode | Phone Number | | Organization | | | | + + + + + | [facility] | [address] | [place] [address] | [phone] | + + + + + Magnesium (02/25/2019 4:07 AM PST) + + + + + + | Component | Value | Ref Range | Performed | Pathologist | | | | | At | Signature | + + + + + + | Magnesium | 2.0Comment: Testing | 1.7 - 2.4 mg/dL | [facility] | | | | performed at [facility], [address] | | LABORATORY | | | | [address], | | | | | | [place] [address] | | | | + + + + + + + + | Specimen | + + | Blood | + + + + + + + | Performing | Address | City/State/Zipcode | Phone Number | | Organization | | | | + + + + + | [facility] | [address] | [place] [address] | [phone] | + + + + + CBC [...] 0.09Comment: Testing | 0.00 - 0.10 | [facility] | | | Absolute | performed at [facility], [address] | [address] | LABORATORY | | | | [address], | | | | | | [place] [address] | | | | + + + + + + + + | Specimen | + + | Blood | + + + + + + + | Performing | Address | City/State/Zipcode | Phone Number | | Organization | | | | + + + + + | [facility] | [address] | [place] [address] | [phone] | + + + + + Basic [...] | LABORATORY | | | | [id number] | | | | | |[address] [id number] [address] | | | | | | [...] | | | | | performed at [facility], [address] | | | | | | [facility], | | | | | | [place] [address] | | | | + + + + + + + + | Specimen | + + | Blood | + + + + + + + | Performing | Address | City/State/Zipcode | Phone Number | | Organization | | | | + + + + + | [facility] | [address] | [place] [address] | [phone] | + + + + + POC [...] | | | POC | performed at [facility];[address] | | LABORATORY | | | | [address];[place], [place] | | | | | | [address] | | | | + + + + + + + + | Specimen | + + | | + + + + + + + | Performing | Address | City/State/Zipcode | Phone Number | | Organization | | | | + + + + + | [facility] | [address] | [place] [address] | [phone] | + + + + + POC [...] | | | POC | performed at [facility];[address] | | LABORATORY | | | | [address];[place] | | | | | | [address] | | | | + + + + + + + + | Specimen | + + | | + + + + + + + | Performing | Address | City/State/Zipcode | Phone Number | | Organization | | | | + + + + + | [facility] | [address] | [place] [address] | [phone] | + + + + + POC [...] | | | POC | performed at [facility];[address] | | LABORATORY | | | | [address];[place] | | | | | | [address] | | | | + + + + + + + + | Specimen | + + | | + + + + + + + | Performing | Address | City/State/Zipcode | Phone Number | | Organization | | | | + + + + + | [facility] | [address] | [place] [address] | [phone] | + + + + + POC [...] | | | POC | performed at [facility];[address] | | LABORATORY | | | | [address];[place] | | | | | | [address] | | | | + + + + + + + + | Specimen | + + | | + + + + + + + | Performing | Address | City/State/Zipcode | Phone Number | | Organization | | | | + + + + + | [facility] | [address] | [place] [address] | [phone] | + + + + + Protime INR (02/24/2019 4:22 AM PDT) + + + + + + | Component | Value | Ref Range | Performed | Pathologist | | | | | At | Signature | + + + + + + | INR | 1.7Comment: REFERENCE | | [facility] | | | [...] | | | | | performed at [facility];[address] | | | | | | [address];[place] | | | | | | [address] | | | | + + + + + + + + | Specimen | + + | Blood | + + + + + + + | Performing | Address | City/State/Zipcode | Phone Number | | Organization | | | | + + + + + | [facility] | [address] | [place] [address] | [phone] | + + + + + Magnesium (02/24/2019 4:22 AM PDT) + + + + + + | Component | Value | Ref Range | Performed | Pathologist | | | | | At | Signature | + + + + + + | Magnesium | 1.8Comment: Testing | 1.7 - 2.4 mg/dL | [facility] | | | | performed at [facility], [address] | | LABORATORY | | | | [facility], | | | | | | [place] [address] | | | | + + + + + + + + | Specimen | + + | Blood | + + + + + + + | Performing | Address | City/State/Zipcode | Phone Number | | Organization | | | | + + + + + | [facility] | [address] | [place] [address] | [phone] | + + + + + CBC [...] | | | Absolute | performed at [facility], [address] | K[address] | LABORATORY | | | | [address], | | | | | | [place] [address] | | | | + + + + + + + + | Specimen | + + | Blood | + + + + + + + | Performing | Address | City/State/Zipcode | Phone Number | | Organization | | | | + + + + + | [facility] | [address] | [place] [address] | [phone] | + + + + + Basic [...] 53 (L)Comment: GFR <60: | >60 | [facility] | | | GFR | CHRONIC [...] | | | | | | MDRD IDWY traceable | | | | | | equation.Testing | | | | | | performed at [facility], [address] | | | | | | [facility], | | | | | | [place] [address] | | | | + + + + + + + + | Specimen | + + | Blood | + + + + + + + | Performing | Address | City/State/Zipcode | Phone Number | | Organization | | | | + + + + + | [facility] | [address] | [place] [address] | [phone] | + + + + + PTT (02/24/2019 4:22 AM PDT) + + + + + + | Component | Value | Ref Range | Performed | Pathologist | | | | | At | Signature | + + + + + + | PTT | 90 (HH)Comment: CALLED | 23 - 32 seconds | [facility] | | | | NURSING UNITREAD BACK | | LABORATORY | | | | RESULTS VERIFIEDYESSICA | | | | | | O IN 9RP AT 0542 BY | | | | | | TDTesting performed at | | | | | | [facility];[address];[place] [address] | | | | + + + + + + + + | Specimen | + + | Blood | + + + + + + + | Performing | Address | City/State/Zipcode | Phone Number | | Organization | | | | + + + + + | [facility] | [address] | [place] [address] | [phone] | + + + + + Potassium (02/23/2019 9:19 PM PDT) + + + + + + | Component | Value | Ref Range | Performed | Pathologist | | | | | At | Signature | + + + + + + | K | 4.8Comment: Testing | 3.5 - 4.9 | [facility] | | | | performed at [facility];[address] | mmol/L | LABORATORY | | | | [address];[place] | | | | | | [address] | | | | + + + + + + + + | Specimen | + + | Blood | + + + + + + + | Performing | Address | City/State/Zipcode | Phone Number | | Organization | | | | + + + + + | [facility] | [address] | [place] [address] | [phone] | + + + + + POC [...] | | | POC | performed at [facility];[address] | LAB[address]AT[address] | | [address];[place], [place] | | | | | | [address] | | | | + + + + + + + + | Specimen | + + | | + + + + + + + | Performing | Address | City/State/Zipcode | Phone Number | | Organization | | | | + + + + + | [facility] | [address] | [place] [address] | [phone] | + + + + + POC [...] | | | POC | performed at [facility];[address] | | LABORAT[address] | | | | [address];[place] | | | | | | [address] | | | | + + + + + + + + | Specimen | + + | | + + + + + + + | Performing | Address | City/State/Zipcode | Phone Number | | Organization | | | | + + + + + | [facility] | [address] | [place] [address] | [phone] | + + + + + POC Glucose (02/23/2019 11:56 AM PDT) + + + + + + | Component | Value | Ref Range | Performed | Pathologist | | | | | At | Signature | + + + + + + | Glucose, | 118 (H)Comment: Testing | 65 - 99 mg/dL | [facility] | | | POC | performed at [facility];[address] | | LABORATORY | | | | [address];[place] | | | | | | [address] | | | | + + + + + + + + | Specimen | + + | | + + + + + + + | Performing | Address | City/State/Zipcode | Phone Number | | Organization | | | | + + + + + | [facility] | [address] | [place] [address] | [phone] | + + + + + POC [...] | | | POC | performed at [facility];[address] | | LABORATORY | | | | [address];[place], [place] | | | | | | [address] | | | | + + + + + + + + | Specimen | + + | | + + + + + + + | Performing | Address | City/State/Zipcode | Phone Number | | Organization | | | | + + + + + | [facility] | [address] | [place] [address] | [phone] | + + + + + PTT (02/23/2019 4:24 AM PDT) + + + + + + | Component | Value | Ref Range | Performed | Pathologist | | | | | At | Signature | + + + + + + | PTT | 56 (H)Comment: Testing | 23 - 32 seconds | [facility] | | | | performed at [facility];[address] | | LABORATORY | | | | [address];[place] | | | | | | [address] | | | | + + + + + + + + | Specimen | + + | | + + + + + + + | Performing | Address | City/State/Zipcode | Phone Number | | Organization | | | | + + + + + | [facility] | [address] | [place] [address] | [phone] | + + + + + Sandipime TRISH (02/23/2019 4:24 AM PDT) + + + + + + | Component | Value | Ref Range | Performed | Pathologist | | | | | At | Signature | + + + + + + | INR | 1.2Comment: REFERENCE | | [facility] | | | | RANGE:0.9 - [...] | | | | | performed at [facility] | | | | | | [facility];[place], [place] | | | | | | [address] | | | | + + + + + + + + | Specimen | + + | Blood | + + + + + + + | Performing | Address | City/State/Zipcode | Phone Number | | Organization | | | | + + + + + | [facility] | [address] | [place] [address] | [phone] | + + + + + Magnesium (02/23/2019 4:24 AM PDT) + + + + + + | Component | Value | Ref Range | Performed | Pathologist | | | | | At | Signature | + + + + + + | Magnesium | 2.0Comment: Testing | 1.7 - 2.4 mg/dL | [facility] | | | | performed at [facility], [address] | | LABORATORY | | | | [address], | | | | | | [place] [address] | | | | + + + + + + + + | Specimen | + + | Blood | + + + + + + + | Performing | Address | City/State/Zipcode | Phone Number | | Organization | | | | + + + + + | [facility] | [address] | [place] [address] | [phone] | + + + + + CBC [...] | | | Absolute | performed at [facility], [address] | K/u[address] | LABORATORY | | | | [address], | | | | | | [place] [address] | | | | + + + + + + + + | Specimen | + + | Blood | + + + + + + + | Performing | Address | City/State/Zipcode | Phone Number | | Organization | | | | + + + + + | [facility] | [address] | [place] [address] | [phone] | + + + + + Basic [...] | 8.7 | 8.5 - 10.5 | [facility] | | | | | mg/dL | LABORATORY | | + + + + + + | Estimated | 53 (L)Comment: GFR <60: | >60 | [facility] | | | GFR | CHRONIC [...] | | | | | performed at [facility], [address] | | | | | | [facility], | | | | | | [place] [address] | | | | + + + + + + + + | Specimen | + + | Blood | + + + + + + + | Performing | Address | City/State/Zipcode | Phone Number | | Organization | | | | + + + + + | [facility] | [address] | [place] [address] | [phone] | + + + + + PTT (02/22/2019 10:58 PM PDT) + + + + + + | Component | Value | Ref Range | Performed | Pathologist | | | | | At | Signature | + + + + + + | PTT | 50 (H)Comment: Testing | 23 - 32 seconds | [facility] | | | | performed at [facility];[address] | | LABORATORY | | | | [address];[place] | | | | | | [address] | | | | + + + + + + + + | Specimen | + + | Blood | + + + + + + + | Performing | Address | City/State/Zipcode | Phone Number | | Organization | | | | + + + + + | [facility] | [address] | [place] [address] | [phone] | + + + + + POC Glucose (02/22/2019 9:13 PM PDT) + + + + + + | Component | Value | Ref Range | Performed | Pathologist | | | | | At | Signature | + + + + + + | Glucose, | 159 (H)Comment: Testing | 65 - 99 mg/dL | [facility] | | | POC | performed at [facility];[address] | | LABORATORY | | | | [address];[place] | | | | | | [address] | | | | + + + + + + + + | Specimen | + + | | + + + + + + + | Performing | Address | City/State/Zipcode | Phone Number | | Organization | | | | + + + + + | [facility] | [address] | [place] [address] | [phone] | + + + + + POC [...] | | | POC | performed at [facility];[address] | | LABORATORY | | | | [address];[place], [place] | | | | | | [address] | | | | + + + + + + + + | Specimen | + + | | + + + + + + + | Performing | Address | City/State/Zipcode | Phone Number | | Organization | | | | + + + + + | [facility] | [address] | [place] [address] | [phone] | + + + + + PTT (02/22/2019 4:55 PM PDT) + + + + + + | Component | Value | Ref Range | Performed | Pathologist | | | | | At | Signature | + + + + + + | PTT | 41 (H)Comment: Testing | 23 - 32 seconds | [facility] | | | | performed at [facility];[address] | | LABORATORY | | | | [address];[place] | | | | | | [address] | | | | + + + + + + + + | Specimen | + + | Blood | + + + + + + + | Performing | Address | City/State/Zipcode | Phone Number | | Organization | | | | + + + + + | [facility] | [address] | [place] [address] | [phone] | + + + + + Potassium (02/22/2019 12:15 PM PDT) + + + + + + | Component | Value | Ref Range | Performed | Pathologist | | | | | At | Signature | + + + + + + | K | 4.0Comment: Testing | 3.5 - 4.9 | [facility] | | | | performed at [facility];[address] | mmol/L | LABORATORY | | | | [address];[place] | | | | | | [address] | | | | + + + + + + + + | Specimen | + + | Blood | + + + + + + + | Performing | Address | City/State/Zipcode | Phone Number | | Organization | | | | + + + + + | [facility] | [address] | [place] [address] | [phone] | + + + + + POC [...] | | | POC | performed at [facility];[address] | | LABORATORY | | | | [address];[place], [place] | | | | | | [address] | | | | + + + + + + + + | Specimen | + + | | + + + + + + + | Performing | Address | City/State/Zipcode | Phone Number | | Organization | | | | + + + + + | [facility] | [address] | [place] [address] | [phone] | + + + + + PTT (02/22/2019 10:19 AM PDT) + + + + + + | Component | Value | Ref Range | Performed | Pathologist | | | | | At | Signature | + + + + + + | PTT | 31Comment: Testing | 23 - 32 seconds | [facility] | | | | performed at [facility];[address] | | LABORATORY | | | | [address];[place] | | | | | | [address] | | | | + + + + + + + + | Specimen | + + | Blood | + + + + + + + | Performing | Address | City/State/Zipcode | Phone Number | | Organization | | | | + + + + + | [facility] | [address] | [place] [address] | [phone] | + + + + + POC [...] | | | POC | performed at [facility];[address] | | LABORATORY | | | | [address];[place] | | | | | | [address] | | | | + + + + + + + + | Specimen | + + | | + + + + + + + | Performing | Address | City/State/Zipcode | Phone Number | | Organization | | | | + + + + + | [facility] | [address] | [place] [address] | [phone] | + + + + + Protime [...] | | | | | performed at [facility];[address] | | | | | | [address];[place], [place] | | | | | | [address] | | | | + + + + + + + + | Specimen | + + | Blood | + + + + + + + | Performing | Address | City/State/Zipcode | Phone Number | | Organization | | | | + + + + + | [facility] | [address] | [place] [address] | [phone] | + + + + + Magnesium (02/22/2019 4:02 AM PDT) + + + + + + | Component | Value | Ref Range | Performed | Pathologist | | | | | At | Signature | + + + + + + | Magnesium | 1.8Comment: Testing | 1.7 - 2.4 mg/dL | [facility] | | | | performed at [facility], [address] | | LABORATORY | | | | [address], | | | | | | [place] [address] | | | | + + + + + + + + | Specimen | + + | Blood | + + + + + + + | Performing | Address | City/State/Zipcode | Phone Number | | Organization | | | | + + + + + | [facility] | [address] | [place] [address] | [phone] | + + + + + CBC [...] 0.06Comment: Testing | 0.00 - 0.10 | [facility] | | | Absolute | performed at [facility], [address] | K[address] | LABORATORY | | | | [address], | | | | | | [place] [address] | | | | + + + + + + + + | Specimen | + + | Blood | + + + + + + + | Performing | Address | City/State/Zipcode | Phone Number | | Organization | | | | + + + + + | [facility] | [address] | [place] [address] | [phone] | + + + + + Basic [...] | | | | | performed at [facility], [address] | | | | | | [address], | | | | | | [place] [address] | | | | + + + + + + + + | Specimen | + + | Blood | + + + + + + + | Performing | Address | City/State/Zipcode | Phone Number | | Organization | | | | + + + + + | [facility] | [address] | [place] [address] | [phone] | + + + + + POC [...] | | | POC | performed at [facility];[address] | | LABORATORY | | | | [address];[place] | | | | | | [address] | | | | + + + + + + + + | Specimen | + + | | + + + + + + + | Performing | Address | City/State/Zipcode | Phone Number | | Organization | | | | + + + + + | [facility] | [address] | [place] [address] | [phone] | + + + + + POC [...] | | | POC | performed at [facility];[address] | | LABORATORY | | | | [address];[place] | | | | | | [address] | | | | + + + + + + + + | Specimen | + + | | + + + + + + + | Performing | Address | City/State/Zipcode | Phone Number | | Organization | | | | + + + + + | [facility] | [address] | [place] [address] | [phone] | + + + + + Protime [...] | | | | | performed at [facility];[address] | | | | | | [facility];[place], [place] | | | | | | [address] | | | | + + + + + + + + | Specimen | + + | Blood | + + + + + + + | Performing | Address | City/State/Zipcode | Phone Number | | Organization | | | | + + + + + | [facility] | [address] [facility] | [place] [address] | [phone] | + + + + + POC Glucose (02/21/2019 12:39 PM PDT) + + + + + + | Component | Value | Ref Range | Performed | Pathologist | | | | | At | Signature | + + + + + + | Glucose, | 93Comment: Testing | 65 - 99 mg/dL | [facility] | | | POC | performed at [facility];[address] | | LABORATORY | | | | [address];[place] | | | | | | [address] | | | | + + + + + + + + | Specimen | + + | | + + + + + + + | Performing | Address | City/State/Zipcode | Phone Number | | Organization | | | | + + + + + | [facility] | [address] | [place] [address] | [phone] | + + + + + ECHO [...] Testing | 65 - 99 mg/dL | [facility] | | | POC | performed at [facility];[address] | | LABORATORY | | | | [address];[place] | | | | | | [address] | | | | + + + + + + + + | Specimen | + + | | + + + + + + + | Performing | Address | City/State/Zipcode | Phone Number | | Organization | | | | + + + + + | [facility] | [address] | [place] [address] | [phone] | + + + + + POC [...] | | | POC | performed at [facility];[address] | | LABORATORY | | | | [address];[place], [place] | | | | | | [address] | | | | + + + + + + + + | Specimen | + + | | + + + + + + + | Performing | Address | City/State/Zipcode | Phone Number | | Organization | | | | + + + + + | [facility] | [address] | [place] [address] | [phone] | + + + + + Magnesium (02/21/2019 5:46 AM PDT) + + + + + + | Component | Value | Ref Range | Performed | Pathologist | | | | | At | Signature | + + + + + + | Magnesium | 2.0Comment: Testing | 1.7 - 2.4 mg/dL | [facility] | | | | performed at [facility], [address] | | LABORATORY | | | | [address], | | | | | | [place] [address] | | | | + + + + + + + + | Specimen | + + | Blood | + + + + + + + | Performing | Address | City/State/Zipcode | Phone Number | | Organization | | | | + + + + + | [facility] | [address] | [place] [address] | [phone] | + + + + + Basic [...] 8.3 (L) | 8.5 - 10.5 | [facility] | | | | | mg/dL | LABORATORY | | + + + + + + | Estimated | 53 (L)Comment: GFR <60: | >60 | [facility] | | | GFR | CHRONIC [...] | | | | | | MDRD IDWY traceable | | | | | | equation.Testing | | | | | | performed at [facility], [address] | | | | | | [facility], | | | | | | [place] [address] | | | | + + + + + + + + | Specimen | + + | Blood | + + + + + + + | Performing | Address | City/State/Zipcode | Phone Number | | Organization | | | | + + + + + | [facility] | [address] | [place] [address] | [phone] | + + + + + CBC [...] | | | Absolute | performed at [facility], [address] | [address] | LABORATORY | | | | [address], | | | | | | [place] [address] | | | | + + + + + + + + | Specimen | + + | Blood | + + + + + + + | Performing | Address | City/State/Zipcode | Phone Number | | Organization | | | | + + + + + | [facility] | [address] | [place] [address] | [phone] | + + + + + POC [...] | | | POC | performed at [facility];[address] | | LABORATORY | | | | [address];[place] | | | | | | [address] | | | | + + + + + + + + | Specimen | + + | | + + + + + + + | Performing | Address | City/State/Zipcode | Phone Number | | Organization | | | | + + + + + | [facility] | [address] | [place] [address] | [phone] | + + + + + POC [...] | | | POC | performed at [facility];[address] | | LABORATORY | | | | [address];[place] | | | | | | [address] | | | | + + + + + + + + | Specimen | + + | | + + + + + + + | Performing | Address | City/State/Zipcode | Phone Number | | Organization | | | | + + + + + | [facility] | [address] | [place] [address] | [phone] | + + + + + POC [...] | | | POC | performed at [facility];[address] | | LABORATORY | | | | [address];[place] | | | | | | [address] | | | | + + + + + + + + | Specimen | + + | | + + + + + + + | Performing | Address | City/State/Zipcode | Phone Number | | Organization | | | | + + + + + | [facility] | [address] | [place] [address] | [phone] | + + + + + POC [...] | | | POC | performed at [facility];[address] | | LABORATORY | | | | [address];[place] | | | | | | [address] | | | | + + + + + + + + | Specimen | + + | | + + + + + + + | Performing | Address | City/State/Zipcode | Phone Number | | Organization | | | | + + + + + | [facility] | [address] | [place] [address] | [phone] | + + + + + POC [...] | | | POC | performed at [facility];[address] | | LABORATORY | | | | [address];[place], [place] | | | | | | [address] | | | | + + + + + + + + | Specimen | + + | | + + + + + + + | Performing | Address | City/State/Zipcode | Phone Number | | Organization | | | | + + + + + | [facility] | [address] | [place] [address] | [phone] | + + + + + XR [...] | | tubes. Signed by: Radha Mensah, Kena Sign | | | Date/Time: 02/20/2019 9:02 [...] Testing | 1.7 - 2.4 mg/dL | [facility] | | | | performed at [facility], [address] | | LABORATORY | | | | [address], | | | | | | [place] [address] | | | | + + + + + + + + | Specimen | + + | Blood | + + + + + + + | Performing | Address | City/State/Zipcode | Phone Number | | Organization | | | | + + + + + | [facility] | [address] | [place] [address] | [phone] | + + + + + CBC [...] | | | Absolute | performed at [facility], [address] | [address] | LABORATORY | | | | [address], | | | | | | [place] [address] | | | | + + + + + + + + | Specimen | + + | Blood | + + + + + + + | Performing | Address | City/State/Zipcode | Phone Number | | Organization | | | | + + + + + | [facility] | [address] | [place] [address] | [phone] | + + + + + Basic [...] | | | | | performed at [facility], [address] | | | | | | [address], | | | | | | [place] [address] | | | | + + + + + + + + | Specimen | + + | Blood | + + + + + + + | Performing | Address | City/State/Zipcode | Phone Number | | Organization | | | | + + + + + | [facility] | [address] | [place] [address] | [phone] | + + + + + POC [...] | | | POC | performed at [facility];[address] | | LABORATORY | | | | [address];[place] | | | | | | [address] | | | | + + + + + + + + | Specimen | + + | | + + + + + + + | Performing | Address | City/State/Zipcode | Phone Number | | Organization | | | | + + + + + | [facility] | [address] | [place] [address] | [phone] | + + + + + POC [...] | | | POC | performed at [facility];[address] | | LABORATORY | | | | [address];[place], [place] | | | | | | [address] | | | | + + + + + + + + | Specimen | + + | | + + + + + + + | Performing | Address | City/State/Zipcode | Phone Number | | Organization | | | | + + + + + | [facility] | [address] | [place] [address] | [phone] | + + + + + POC Glucose (02/19/2019 11:34 AM PDT) + + + + + + | Component | Value | Ref Range | Performed | Pathologist | | | | | At | Signature | + + + + + + | Glucose, | 135 (H)Comment: Testing | 65 - 99 mg/dL | [facility] | | | POC | performed at [facility];[address] | | LABORATORY | | | | [address];[place] | | | | | | [address] | | | | + + + + + + + + | Specimen | + + | | + + + + + + + | Performing | Address | City/State/Zipcode | Phone Number | | Organization | | | | + + + + + | [facility] | [address] | [place] [address] | [phone] | + + + + + POC Glucose (02/19/2019 8:29 AM PDT) + + + + + + | Component | Value | Ref Range | Performed | Pathologist | | | | | At | Signature | + + + + + + | Glucose, | 168 (H)Comment: Testing | 65 - 99 mg/dL | [facility] | | | POC | performed at [facility];[address] | | LABORATORY | | | | [address];[place] | | | | | | [address] | | | | + + + + + + + + | Specimen | + + | | + + + + + + + | Performing | Address | City/State/Zipcode | Phone Number | | Organization | | | | + + + + + | [facility] | [address] | [place] [address] | [phone] | + + + + + XR [...] Testing | 1.7 - 2.4 mg/dL | [facility] | | | | performed at [facility], [address] | | LABORATORY | | | | [address], | | | | | | [place] [address] | | | | + + + + + + + + | Specimen | + + | Blood | + + + + + + + | Performing | Address | City/State/Zipcode | Phone Number | | Organization | | | | + + + + + | [facility] | [address] | [place] [address] | [phone] | + + + + + CBC [...] 0.04Comment: Testing | 0.00 - 0.10 | [facility] | | | Absolute | performed at [facility], [address] | [address] | LABORATORY | | | | [address], | | | | | | [place] [address] | | | | + + + + + + + + | Specimen | + + | Blood | + + + + + + + | Performing | Address | City/State/Zipcode | Phone Number | | Organization | | | | + + + + + | [facility] | [address] | [place] [address] | [phone] | + + + + + Basic [...] 35 (L)Comment: GFR <60: | >60 | [facility] [...] | | | | | performed at [facility], [address] | | | | | | [facility], | | | | | | [place] [address] | | | | + + + + + + + + | Specimen | + + | Blood | + + + + + + + | Performing | Address | City/State/Zipcode | Phone Number | | Organization | | | | + + + + + | [facility] | [address] | [place] [address] | [phone] | + + + + + POC Glucose (02/18/2019 9:30 PM PDT) + + + + + + | Component | Value | Ref Range | Performed | Pathologist | | | | | At | Signature | + + + + + + | Glucose, | 107 (H)Comment: Testing | 65 - 99 mg/dL | [facility] | | | POC | performed at [facility];[address] | | LABORATORY | | | | [address];[place] | | | | | | [address] | | | | + + + + + + + + | Specimen | + + | | + + + + + + + | Performing | Address | City/State/Zipcode | Phone Number | | Organization | | | | + + + + + | [facility] | [address] | [place] [address] | [phone] | + + + + + POC Glucose (02/18/2019 4:56 PM PDT) + + + + + + | Component | Value | Ref Range | Performed | Pathologist | | | | | At | Signature | + + + + + + | Glucose, | 153 (H)Comment: Testing | 65 - 99 mg/dL | [facility] | | | POC | performed at [facility];[address] | | LABORATORY | | | | [address];[place] | | | | | | [address] | | | | + + + + + + + + | Specimen | + + | | + + + + + + + | Performing | Address | City/State/Zipcode | Phone Number | | Organization | | | | + + + + + | [facility] | [address] | [place] [address] | [phone] | + + + + + POC [...] | | | POC | performed at [facility];[address] | | LABORATORY | | | | [address];[place], [place] | | | | | | [address] | | | | + + + + + + + + | Specimen | + + | | + + + + + + + | Performing | Address | City/State/Zipcode | Phone Number | | Organization | | | | + + + + + | [facility] | [address] | [place] [address] | [phone] | + + + + + POC Glucose (02/18/2019 8:37 AM PDT) + + + + + + | Component | Value | Ref Range | Performed | Pathologist | | | | | At | Signature | + + + + + + | Glucose, | 89Comment: Testing | 65 - 99 mg/dL | [facility] | | | POC | performed at [facility];[id number] | | LABORATORY | | | [address];[place], [place] | | | | | | [address] | | | | + + + + + + + + | Specimen | + + | | + + + + + + + | Performing | Address | City/State/Zipcode | Phone Number | | Organization | | | | + + + + + | [facility] | [address] | [place] [address] | [phone] | + + + + + XR [...] | | No pneumothorax. Signed by: Radha Harper Sadaf Sign | | | Date/Time: 02/18/2019 6:55 [...] Testing | 1.7 - 2.4 mg/dL | [facility] | | | | performed at [facility], [address] | LABORATORY | | | | [address], | | | | | | [place] [address] | | | | + + + + + + + + | Specimen | + + | Blood | + + + + + + + | Performing | Address | City/State/Zipcode | Phone Number | | Organization | | | | + + + + + | [facility] | [address] | [place] [address] | [phone] | + + + + + CBC [...] | | | Absolute | performed at [facility], [address] | [address] | LABORATORY | | | | [address], | | | | | | [place] [address] | | | | + + + + + + + + | Specimen | + + | Blood | + + + + + + + | Performing | Address | City/State/Zipcode | Phone Number | | Organization | | | | + + + + + | [facility] | [address] | [place] [address] | [phone] | + + + + + Basic [...] 7.9 (L) | 8.5 - 10.5 | [facility] | | | | | mg/dL | LABORATORY | | + + + + + + | Estimated | 26 (L)Comment: GFR <60: | >60 | [facility] [...] | | | | | performed at [facility], [address] | | | | | | [facility], | | | | | | [place], [place] [address] | | | | + + + + + + + + | Specimen | + + | Blood | + + + + + + + | Performing | Address | City/State/Zipcode | Phone Number | | Organization | | | | + + + + + | [facility] LABORATORY | [address] | [place] [address] | [phone] | + + + + + POC Glucose (02/17/2019 10:25 PM PDT) + + + + + + | Component | Value | Ref Range | Performed | Pathologist | | | | | At | Signature | + + + + + + | Glucose, | 140 (H)Comment: Testing | 65 - 99 mg/dL | [facility] | | | POC | performed at [facility];[address] | | LABORATORY | | | | [address];[place] | | | | | | [address] | | | | + + + + + + + + | Specimen | + + | | + + + + + + + | Performing | Address | City/State/Zipcode | Phone Number | | Organization | | | | + + + + + | [facility] | [address] | [place] [address] | [phone] | + + + + + POC [...] | | | POC | performed at [facility];[address] | | LABORATORY | | | | [address];[place], [place] | | | | | | [address] | | | | + + + + + + + + | Specimen | + + | | + + + + + + + | Performing | Address | City/State/Zipcode | Phone Number | | Organization | | | | + + + + + | [facility] | [address] | [place] [address] | [phone] | + + + + + POC [...] | | | POC | performed at [facility];[address] | | LABORATORY | | | | [address];[place] | | | | | | [address] | | | | + + + + + + + + | Specimen | + + | | + + + + + + + | Performing | Address | City/State/Zipcode | Phone Number | | Organization | | | | + + + + + | [facility] | [address] | [place] [address] | [phone] | + + + + + POC Glucose (02/17/2019 9:42 AM PDT) + + + + + + | Component | Value | Ref Range | Performed | Pathologist | | | | | At | Signature | + + + + + + | Glucose, | 99Comment: Testing | 65 - 99 mg/dL | [facility] | | | POC | performed at [facility];[address] | | LABORATORY | | | | [address];[place] | | | | | | [address] | | | | + + + + + + + + | Specimen | + + | | + + + + + + + | Performing | Address | City/State/Zipcode | Phone Number | | Organization | | | | + + + + + | [facility] | [address] | [place] [address] | [phone] | + + + + + Magnesium (02/17/2019 4:44 AM PDT) + + + + + + | Component | Value | Ref Range | Performed | Pathologist | | | | | At | Signature | + + + + + + | Magnesium | 2.8 (H)Comment: Testing | 1.7 - 2.4 mg/dL | [facility] | | | | performed at [facility], [address] | | LABORATORY | | | | [address], | | | | | | [place] [address] | | | | + + + + + + + + | Specimen | + + | Blood | + + + + + + + | Performing | Address | City/State/Zipcode | Phone Number | | Organization | | | | + + + + + | [facility] | [address] | [place] [address] | [phone] | + + + + + CBC [...] | | | Absolute | performed at [facility], [address] | K/uL | LABORATORY | | | | [address], | | | | | | [place] [address] | | | | + + + + + + + + | Specimen | + + | Blood | + + + + + + + | Performing | Address | City/State/Zipcode | Phone Number | | Organization | | | | + + + + + | [facility] | [address] | [place] [address] | [phone] | + + + + + Basic [...] 7.9 (L) | 8.5 - 10.5 | [facility] | | | | | mg/dL | LABORATORY | | + + + + + + | Estimated | 26 (L)Comment: GFR <60: | >60 | [facility] [...] | | | | | | MDRD IDWY traceable | | | | | | equation.Testing | | | | | | performed at [facility], [address] | | | | | | [facility], | | | | | | [place] [address] | | | | + + + + + + + + | Specimen | + + | Blood | + + + + + + + | Performing | Address | City/State/Zipcode | Phone Number | | Organization | | | | + + + + + | [facility] | [address] | [place] [address] | [phone] | + + + + + XR [...] | | | POC | performed at [facility];[address] | | LABORATORY | | | | [address];[place] | | | | | | [address] | | | | + + + + + + + + | Specimen | + + | | + + + + + + + | Performing | Address | City/State/Zipcode | Phone Number | | Organization | | | | + + + + + | [facility] | [address] | [place] [address] | [phone] | + + + + + POC Glucose (02/16/2019 5:41 PM PDT) + + + + + + | Component | Value | Ref Range | Performed | Pathologist | | | | | At | Signature | + + + + + + | Glucose, | 227 (H)Comment: Testing | 65 - 99 mg/dL | [facility] | | | POC | performed at [facility];[address] | | LABORATORY | | | | [address];[place] | | | | | | [address] | | | | + + + + + + + + | Specimen | + + | | + + + + + + + | Performing | Address | City/State/Zipcode | Phone Number | | Organization | | | | + + + + + | [facility] | [address] | [place] [address] | [phone] | + + + + + POC [...] | | | POC | performed at [facility];[address] | | LABORATORY | | | | [address];[place], [place] | | | | | | [address] | | | | + + + + + + + + | Specimen | + + | | + + + + + + + | Performing | Address | City/State/Zipcode | Phone Number | | Organization | | | | + + + + + | [facility] | [address] | [place] [address] | [phone] | + + + + + Potassium (02/16/2019 12:45 PM PDT) + + + + + + | Component | Value | Ref Range | Performed | Pathologist | | | | | At | Signature | + + + + + + | K | 5.6 (H)Comment: Testing | 3.5 - 4.9 | [facility] | | | | performed at [facility];888 | mmol/L | LABORATORY | | | | [address];[place], [place] | | | | | | [address] | | | | + + + + + + + + | Specimen | + + | Blood | + + + + + + + | Performing | Address | City/State/Zipcode | Phone Number | | Organization | | | | + + + + + | [facility] | [address] | [place] [address] | [phone] | + + + + + POC [...] | | | POC | performed at [facility];[address] | | LABORATORY | | | | [address];[place] | | | | | | [address] | | | | + + + + + + + + | Specimen | + + | | + + + + + + + | Performing | Address | City/State/Zipcode | Phone Number | | Organization | | | | + + + + + | [facility] | [address] | [place] [address] | [phone] | + + + + + POC Glucose (02/16/2019 9:25 AM PDT) + + + + + + | Component | Value | Ref Range | Performed | Pathologist | | | | | At | Signature | + + + + + + | Glucose, | 88Comment: Testing | 65 - 99 mg/dL | [facility] | | | POC | performed at [facility];[address] | | LABORATORY | | | | [address];[place], [place] | | | | | | [address] | | | | + + + + + + + + | Specimen | + + | | + + + + + + + | Performing | Address | City/State/Zipcode | Phone Number | | Organization | | | | + + + + + | [facility] | [address] | [place] [address] | [phone] | + + + + + POC Glucose (02/16/2019 8:44 AM PDT) + + + + + + | Component | Value | Ref Range | Performed | Pathologist | | | | | At | Signature | + + + + + + | Glucose, | 80Comment: Testing | 65 - 99 mg/dL | [facility] | | | POC | performed at [facility];[address] | | LABORATORY | | | | [address];[place], [place] | | | | | | [address] | | | | + + + + + + + + | Specimen | + + | | + + + + + + + | Performing | Address | City/State/Zipcode | Phone Number | | Organization | | | | + + + + + | [facility] | [address] | [place] [address] | [phone] | + + + + + POC [...] | | | POC | performed at [facility];[address] | | LABORATORY | | | | [address];[place] | | | | | | [address] | | | | + + + + + + + + | Specimen | + + | | + + + + + + + | Performing | Address | City/State/Zipcode | Phone Number | | Organization | | | | + + + + + | [facility] | [address] | [place] [address] | [phone] | + + + + + POC Glucose (02/16/2019 6:36 AM PDT) + + + + + + | Component | Value | Ref Range | Performed | Pathologist | | | | | At | Signature | + + + + + + | Glucose, | 133 (H)Comment: Testing | 65 - 99 mg/dL | [facility] | | | POC | performed at [facility];[address] | | LABORATORY | | | | [address];[place], [place] | | | | | | [address] | | | | + + + + + + + + | Specimen | + + | | + + + + + + + | Performing | Address | City/State/Zipcode | Phone Number | | Organization | | | | + + + + + | [facility] | [address] | [place] [address] | [phone] | + + + + + XR [...] | | | | | Signed by: Kaczmark, M.D., Kayley | | Sign Date/Time: 02/16/2019 5:43 AM [...] [facility] | | | | performed at [facility];[address] | | LABORATORY | | | | [address];[place] | | | | | | [address] | | | | + + + + + + + + | Specimen | + + | Blood | + + + + + + + | Performing | Address | City/State/Zipcode | Phone Number | | Organization | | | | + + + + + | [facility] | [address] | [place] [address] | [phone] | + + + + + CBC [...] 0.06Comment: Testing | 0.00 - 0.10 | [facility] | | | Absolute | performed at [facility], [address] | K/uL | LABORATORY | | | | [address], | | | | | | [place] [address] | | | | + + + + + + + + | Specimen | + + | Blood | + + + + + + + | Performing | Address | City/State/Zipcode | Phone Number | | Organization | | | | + + + + + | [facility] | [address] | [place] [address] | [phone] | + + + + + Basic [...] | | | | | performed at [facility] | | | | | | [facility];[place], [place] | | | | | | [address] | | | | + + + + + + + + | Specimen | + + | Blood | + + + + + + + | Performing | Address | City/State/Zipcode | Phone Number | | Organization | | | | + + + + + | [facility] | [address] | [place] [address] | [phone] | + + + + + POC [...] | | | POC | performed at [facility];[address] | | LABORATORY | | | | [address];[place] | | | | | | [address] | | | | + + + + + + + + | Specimen | + + | | + + + + + + + | Performing | Address | City/State/Zipcode | Phone Number | | Organization | | | | + + + + + | [facility] | [address] | [place] [address] | [phone] | + + + + + POC [...] | | | POC | performed at [facility];[address] | | LABORATORY | | | | [address];[place] | | | | | | [address] | | | | + + + + + + + + | Specimen | + + | | + + + + + + + | Performing | Address | City/State/Zipcode | Phone Number | | Organization | | | | + + + + + | [facility] | [address] | [place] [address] | [phone] | + + + + + POC [...] | | | POC | performed at [facility];[address] | | LABORATORY | | | | [address];[place] | | | | | | [address] | | | | + + + + + + + + | Specimen | + + | | + + + + + + + | Performing | Address | City/State/Zipcode | Phone Number | | Organization | | | | + + + + + | [facility] | [address] | [place] [address] | [phone] | + + + + + Potassium (02/15/2019 11:39 PM PDT) + + + + + + | Component | Value | Ref Range | Performed | Pathologist | | | | | At | Signature | + + + + + + | K | 4.6Comment: Testing | 3.5 - 4.9 | [facility] | | | | performed at [facility];[address] | mmol/L | LABORATORY | | | | [address];[place] | | | | | | [address] | | | | + + + + + + + + | Specimen | + + | Blood | + + + + + + + | Performing | Address | City/State/Zipcode | Phone Number | | Organization | | | | + + + + + | [facility] | [address] | [place] [address] | [phone] | + + + + + Blood gas, Arterial (02/15/2019 11:29 PM PDT) + + + + + + | Component | Value | Ref Range | Performed | Pathologist | | | | | At | Signature | + + + + + + | pH, | 7.383 | 7.350 - 7.450 | [facility] | | | Arterial, | | | LABORATORY | | | POC | | | | | + + + + + + | pCO2, | 39 | 35 - 45 mmHg | [facility] | | | Arterial | | | [...] Testing | 95 - 98 % | [facility] | | | Arterial, | performed at [facility];[address] | | LABORATORY | | | POC | [address];[place], [place] | | | | | | [address] | | | | + + + + + + + + | Specimen | + + | | + + + + + + + | Performing | Address | City/State/Zipcode | Phone Number | | Organization | | | | + + + + + | [facility] | [address] | [place] [address] | [phone] | + + + + + POC [...] | | | POC | performed at [facility];[address] | | LABORATORY | | | | [address];[place] | | | | | | [address] | | | | + + + + + + + + | Specimen | + + | | + + + + + + + | Performing | Address | City/State/Zipcode | Phone Number | | Organization | | | | + + + + + | [facility] | [address] | [place] [address] | [phone] | + + + + + POC [...] | | | POC | performed at [facility];[address] | | LABORATORY | | | | [address];[place] | | | | | | [address] | | | | + + + + + + + + | Specimen | + + | | + + + + + + + | Performing | Address | City/State/Zipcode | Phone Number | | Organization | | | | + + + + + | [facility] | [address] | [place] [address] | [phone] | + + + + + POC [...] | | | POC | performed at [facility];[address] | | LABORATORY | | | | [address];[place], [place] | | | | | | [address] | | | | + + + + + + + + | Specimen | + + | | + + + + + + + | Performing | Address | City/State/Zipcode | Phone Number | | Organization | | | | + + + + + | [facility] | [address] | [place] [address] | [phone] | + + + + + POC ISDENIS DE LA FUENTE8, Venous (02/15/2019 8:50 PM PDT) + + [...] | | | | | performed at [facility] | | | | | | [address];[place], [place] | | | | | | [address] | | | | + + + + + + + + | Specimen | + + | | + + + + + + + | Performing | Address | City/State/Zipcode | Phone Number | | Organization | | | | + + + + + | [facility] | [address] | [place] [address] | [phone] | + + + + + Blood [...] | | | Arterial, | performed at [facility];[address] | | LABORATORY | | | POC | [address];[place], [place] | | | | | | [address] | | | | + + + + + + + + | Specimen | + + | | + + + + + + + | Performing | Address | City/State/Zipcode | Phone Number | | Organization | | | | + + + + + | [facility] | [address] | [place] [address] | [phone] | + + + + + Potassium (02/15/2019 8:02 PM PDT) + + + + + + | Component | Value | Ref Range | Performed | Pathologist | | | | | At | Signature | + + + + + + | K | 3.7Comment: Testing | 3.5 - 4.9 | [facility] | | | | performed at [facility];[address] | mmol/L | LABORATORY | | | | [address];[place] | | | | | | [address] | | | | + + + + + + + + | Specimen | + + | Blood | + + + + + + + | Performing | Address | City/State/Zipcode | Phone Number | | Organization | | | | + + + + + | [facility] | [address] | [place] [address] | [phone] | + + + + + POC Glucose (02/15/2019 6:47 PM PDT) + + + + + + | Component | Value | Ref Range | Performed | Pathologist | | | | | At | Signature | + + + + + + | Glucose, | 91Comment: Testing | 65 - 99 mg/dL | [facility] | | | POC | performed at [facility];[address] | | LABORATORY | | | | [address];[place] | | | | | | [address] | | | | + + + + + + + + | Specimen | + + | | + + + + + + + | Performing | Address | City/State/Zipcode | Phone Number | | Organization | | | | + + + + + | [facility] | [address] | [place] [address] | [phone] | + + + + + Blood [...] | | | Arterial, | performed at [facility];[address] | | LABORATORY | | | POC | [address];[place] | | | | | | [address] | | | | + + + + + + + + | Specimen | + + | | + + + + + + + | Performing | Address | City/State/Zipcode | Phone Number | | Organization | | | | + + + + + | [facility] | [address] | [place] [address] | [phone] | + + + + + Blood [...] Testing | 95 - 98 % | [facility] | | | Arterial, | performed at [facility];[address] | | LABORATORY | | | POC | [address];[place], [place] | | | | | | [address] | | | | + + + + + + + + | Specimen | + + | | + + + + + + + | Performing | Address | City/State/Zipcode | Phone Number | | Organization | | | | + + + + + | [facility] | [address] | [place] [address] | [phone] | + + + + + POC [...] | | | POC | performed at [facility];[address] | | LABORATORY | | | | [address];[place], [place] | | | | | | [address] | | | | + + + + + + + + | Specimen | + + | | + + + + + + + | Performing | Address | City/State/Zipcode | Phone Number | | Organization | | | | + + + + + | [facility] | [address] | [place] [address] | [phone] | + + + + + Blood [...] | | | Arterial, | performed at [facility];[address] | | LABORATORY | | | POC | [address];[place] | | | | | | [address] | | | | + + + + + + + + | Specimen | + + | | + + + + + + + | Performing | Address | City/State/Zipcode | Phone Number | | Organization | | | | + + + + + | [facility] | [address] | [place] [address] | [phone] | + + + + + Potassium (02/15/2019 4:03 PM PDT) + + + + + + | Component | Value | Ref Range | Performed | Pathologist | | | | | At | Signature | + + + + + + | K | 3.9Comment: Testing | 3.5 - 4.9 | [facility] | | | | performed at [facility];[address] | mmol/L | LABORATORY | | | | [address];[place] | | | | | | [address] | | | | + + + + + + + + | Specimen | + + | Blood | + + + + + + + | Performing | Address | City/State/Zipcode | Phone Number | | Organization | | | | + + + + + | [facility] | [address] | [place] [address] | [phone] | + + + + + POC Glucose (02/15/2019 3:39 PM PDT) + + + + + + | Component | Value | Ref Range | Performed | Pathologist | | | | | At | Signature | + + + + + + | Glucose, | 139 (H)Comment: Testing | 65 - 99 mg/dL | [facility] | | | POC | performed at [facility];[address] | | LABORATORY | | | | [address];[place], [place] | | | | | | [address] | | | | + + + + + + + + | Specimen | + + | | + + + + + + + | Performing | Address | City/State/Zipcode | Phone Number | | Organization | | | | + + + + + | [facility] | [address] | [place] [address] | [phone] | + + + + + Blood [...] Testing | 95 - 98 % | [facility] | | | Arterial, | performed at [facility];[address] | | LABORATORY | | | POC | [address];[place], [place] | | | | | | [address] | | | | + + + + + + + + | Specimen | + + | | + + + + + + + | Performing | Address | City/State/Zipcode | Phone Number | | Organization | | | | + + + + + | [facility] | [address] | [place] [address] | [phone] | + + + + + POC [...] | | | POC | performed at [facility];[address] | | LABORATORY | | | | [address];[place] | | | | | | [address] | | | | + + + + + + + + | Specimen | + + | | + + + + + + + | Performing | Address | City/State/Zipcode | Phone Number | | Organization | | | | + + + + + | [facility] | [address] | [place] [address] | [phone] | + + + + + Calcium, [...] [facility] | | | | performed at [facility];[address] | | LABORATORY | | | | [address];[place], [place] | | | | | | [address] | | | | + + + + + + + + | Specimen | + + | Blood | + + + + + + + | Performing | Address | City/State/Zipcode | Phone Number | | Organization | | | | + + + + + | [facility] | [address] | [place] [address] | [phone] | + + + + + PTT (02/15/2019 1:45 PM PDT) + + + + + + | Component | Value | Ref Range | Performed | Pathologist | | | | | At | Signature | + + + + + + | PTT | 26Comment: Testing | 23 - 32 seconds | [facility] | | | | performed at [facility];[address] | | LABORATORY | | | | [address];[place] | | | | | | [address] | | | | + + + + + + + + | Specimen | + + | Blood | + + + + + + + | Performing | Address | City/State/Zipcode | Phone Number | | Organization | | | | + + + + + | [facility] | [address] | [place] [address] | [phone] | + + + + + Protime INR (02/15/2019 1:45 PM PDT) + + + + + + | Component | Value | Ref Range | Performed | Pathologist | | | | | At | Signature | + + + + + + | INR | 1.2Comment: REFERENCE | | [facility] | | | | RANGE:0.9 - [...] | | | | | performed at [facility];[address] | | | | | | [facility];[place] | | | | | | [address] | | | | + + + + + + + + | Specimen | + + | Blood | + + + + + + + | Performing | Address | City/State/Zipcode | Phone Number | | Organization | | | | + + + + + | [facility] | [address] | [place] [address] | [phone] | + + + + + Magnesium (02/15/2019 1:45 PM PDT) + + + + + + | Component | Value | Ref Range | Performed | Pathologist | | | | | At | Signature | + + + + + + | Magnesium | 3.0 (H)Comment: Testing | 1.7 - 2.4 mg/dL | [facility] | | | | performed at [facility];[address] | | LABORATORY | | | | [address];[place] | | | | | | [address] | | | | + + + + + + + + | Specimen | + + | Blood | + + + + + + + | Performing | Address | City/State/Zipcode | Phone Number | | Organization | | | | + + + + + | [facility] | [address] | [place] [address] | [phone] | + + + + + Hemoglobin A1C (02/15/2019 1:45 PM PDT) + + + + + + | Component | Value | Ref Range | Performed | Pathologist | | | | | At | Signature | + + + + + + | Hemoglobin | 7.4 (H)Comment: HbA1c | 4.0 - 6.0 % | [facility] | | | A1c | method [...] | | | | | performed at [facility], [address] | | | | | [address], | | | | | | [place] [address] | | | | + + + + + + + + | Specimen | + + | Blood | + + + + + + + | Performing | Address | City/State/Zipcode | Phone Number | | Organization | | | | + + + + + | [facility] | [address] | [place] [address] | [phone] | + + + + + Fibrinogen (02/15/2019 1:45 PM PDT) + + + + + + | Component | Value | Ref Range | Performed | Pathologist | | | | | At | Signature | + + + + + + | Fibrinogen | 434Comment: Testing | 200 - 450 mg/dL | [facility] | | | | performed at [facility] | | LABORATORY | | | | [address] [facility];[place], [place] | | | | | | [address] | | | | + + + + + + + + | Specimen | + + | Blood | + + + + + + + | Performing | Address | City/State/Zipcode | Phone Number | | Organization | | | | + + + + + | [facility] | [address] | [place] [address] | [phone] | + + + + + CBC [...] | | | | | performed at [facility] | | | | | | [address];[place] | | | | | | [address] | | | | + + + + + + + + | Specimen | + + | Blood | + + + + + + + | Performing | Address | City/State/Zipcode | Phone Number | | Organization | | | | + + + + + | [facility] | [address] | [place] [address] | [phone] | + + + + + Basic [...] 38 (L)Comment: GFR <60: | >60 | KR [...] | | | | | performed at [facility];[address] | | | | | | [facility];[place], [place] | | | | | | [address] | | | | + + + + + + + + | Specimen | + + | Blood | + + + + + + + | Performing | Address | City/State/Zipcode | Phone Number | | Organization | | | | + + + + + | [facility] | [address] | [place] [address] | [phone] | + + + + + POC CHARLIE CG8, Arterial (02/15/2019 1:39 PM PDT) + [...] (L)Comment: Testing | 13.7 - 16.7 | [facility] | | | POC | performed at [facility];[address] | g/dL | LABORATORY | | | | [address];[place] | | | | | | [address] | | | | + + + + + + + + | Specimen | + + | | + + + + + + + | Performing | Address | City/State/Zipcode | Phone Number | | Organization | | | | + + + + + | [facility] | [address] | [place] [address] | [phone] | + + + + + XR Chest AP Portable (02/15/2019 1:27 PM PDT) + + | Specimen | + + | | + + + + + | Impressions | Performed At | + + + | Tiny left apical pneumothorax measuring 3 mm. Postsurgical changes | [facility] | | as noted in the findings Signed by: Radha Avery Amit Sign | | | Date/Time: 02/15/2019 1:59 [...] | projects 4.1 cm above the fransico. Silverthorne-Roland catheter tip appears to | | | [...] 4.1 cm | | above the fransico. Silverthorne-Roland catheter tip appears to project at the [...] Testing | 95 - 98 % | [facility] | | | Arterial, | performed at [facility];888 | | LABORATORY | | | POC | [address];[place] | | | | | | [address] | | | | + + + + + + + + | Specimen | + + | | + + + + + + + | Performing | Address | City/State/Zipcode | Phone Number | | Organization | | | | + + + + + | [facility] | [address] | [place] [address] | [phone] | + + + + + POC [...] | | | POC | performed at [facility];[address] | | LABORATORY | | | | [address];[place], [place] | | | | | | [address] | | | | + + + + + + + + | Specimen | + + | | + + + + + + + | Performing | Address | City/State/Zipcode | Phone Number | | Organization | | | | + + + + + | [facility] | [address] | [place] [address] | [phone] | + + + + + ECG [...] | | | Arterial, | performed at [facility];888 | | LABORATORY | | | POC | [address];[place], [place] | | | | | | [address] | | | | + + + + + + + + | Specimen | + + | | + + + + + + + | Performing | Address | City/State/Zipcode | Phone Number | | Organization | | | | + + + + + | [facility] | [address] | [place] [address] | [phone] | + + + + + POC [...] | | | POC | performed at [facility];888 | g/dL | LABORATORY | | | | [address];[place] | | | | | | [address] | | | | + + + + + + + + | Specimen | + + | | + + + + + + + | Performing | Address | City/State/Zipcode | Phone Number | | Organization | | | | + + + + + | [facility] | [address] | [place] [address] | [phone] | + + + + + POC [...] | | | Arterial, | performed at [facility];[address] | | LABORATORY | | | POC | [address];[place] | | | | | | [address] | | | | + + + + + + + + | Specimen | + + | | + + + + + + + | Performing | Address | City/State/Zipcode | Phone Number | | Organization | | | | + + + + + | [facility] | [address] | [place] [address] | [phone] | + + + + + POC CHARLIE CG8, Arterial (02/15/2019 11:31 AM PDT) + [...] | | | POC | performed at [facility];888 | g/dL | LABORATORY | | | | [address];[place], [place] | | | | | | [address] | | | | + + + + + + + + | Specimen | + + | | + + + + + + + | Performing | Address | City/State/Zipcode | Phone Number | | Organization | | | | + + + + + | [facility] | [address] | [place] [address] | [phone] | + + + + + FAM MCKEON, Arterial (02/15/2019 11:10 AM PDT) + + [...] (L)Comment: Testing | 13.7 - 16.7 | [facility] | | | POC | performed at [facility];888 | g/dL | LABORATORY | | | | [address];[place], [place] | | | | | | [address] | | | | + + + + + + + + | Specimen | + + | | + + + + + + + | Performing | Address | City/State/Zipcode | Phone Number | | Organization | | | | + + + + + | [facility] | [address] | [place] [address] | [phone] | + + + + + POC [...] Testing | 95 - 98 % | [facility] | | | Arterial, | performed at [facility];[address] | | LABORATORY | | | POC | [address];[place] | | | | | | [address] | | | | + + + + + + + + | Specimen | + + | | + + + + + + + | Performing | Address | City/State/Zipcode | Phone Number | | Organization | | | | + + + + + | [facility] | [address] | [place] [address] | [phone] | + + + + + POC [...] | | | POC | performed at [facility];888 | g/dL | LABORATORY | | | | [address];[place] | | | | | | [address] | | | | + + + + + + + + | Specimen | + + | | + + + + + + + | Performing | Address | City/State/Zipcode | Phone Number | | Organization | | | | + + + + + | [facility] | [address] | [place] [address] | [phone] | + + + + + POC ISTAT, CG8, Venous (02/15/2019 10:21 AM PDT) + + + + + + | Component | Value | Ref Range | Performed | Pathologist | | | | | At | Signature | + + + + + + | pH, Venous, | 7.301 (L) | 7.310 - 7.410 | [facility] | | | POC | | [...] | | | POC | performed at [facility];888 | g/dL | LABORATORY | | | | [address];[place] | | | | | | [address] | | | | + + + + + + + + | Specimen | + + | | + + + + + + + | Performing | Address | City/State/Zipcode | Phone Number | | Organization | | | | + + + + + | [facility] | [address] | [place] [address] | [phone] | + + + + + FAM MCKEON Arterial (02/15/2019 10:07 AM PDT) + + [...] (L)Comment: Testing | 13.7 - 16.7 | [facility] | | | POC | performed at [facility];888 | g/dL | LABORATORY | | | | [address];[place], [place] | | | | | | [address] | | | | + + + + + + + + | Specimen | + + | | + + + + + + + | Performing | Address | City/State/Zipcode | Phone Number | | Organization | | | | + + + + + | [facility] | [address] | [place] [address] | [phone] | + + + + + POC [...] | | | POC | performed at [facility];888 | g/dL | LABORATORY | | | | [address];[place], [place] | | | | | | [address] | | | | + + + + + + + + | Specimen | + + | | + + + + + + + | Performing | Address | City/State/Zipcode | Phone Number | | Organization | | | | + + + + + | [facility] | [address] | [place] [address] | [phone] | + + + + + POC [...] | | | POC | performed at [facility];888 | g/dL | LABORATORY | | | | [address];[place], [place] | | | | | | [address] | | | | + + + + + + + + | Specimen | + + | | + + + + + + + | Performing | Address | City/State/Zipcode | Phone Number | | Organization | | | | + + + + + | [facility] | [address] | [place] [address] | [phone] | + + + + + POC CG 4, ISTAT Arterial (02/15/2019 7:53 AM PDT) + + + + + + | Component | Value | Ref Range | Performed | Pathologist | | | | | At | Signature | + + + + + + | pH, | 7.293 (L) | 7.350 - 7.450 | [facility] | | | Arterial, | | [...] | | | Arterial, | performed at [facility];[address] | | LABORATORY | | | POC | [address];[place] | | | | | | [address] | | | | + + + + + + + + | Specimen | + + | | + + + + + + + | Performing | Address | City/State/Zipcode | Phone Number | | Organization | | | | + + + + + | [facility] | [address] | [place] [address] | [phone] | + + + + + POC ISTAT, CG8, Arterial (02/15/2019 7:50 AM PDT) + + + + + + | Component | Value | Ref Range | Performed | Pathologist | | | | | At | Signature | + + + + + + | pH, | 7.305 (L) | 7.350 - 7.450 | [facility] | | | Arterial, | | [...] | | | POC | performed at [facility];888 | g/dL | LABORATORY | | | | [address];[place], [place] | | | | | | [address] | | | | + + + + + + + + | Specimen | + + | | + + + + + + + | Performing | Address | City/State/Zipcode | Phone Number | | Organization | | | | + + + + + | [facility] | [address] | [place] [address] | [phone] | + + + + + ECHO [...] | | Name BOB MANCINI Room Number [id number] | | | Patient Number [id number] Date of Study | | | 02/15/2019 Visit Number [id number] Referring | | | Physician LUISANA ALCALA Accession Number [id number] | | | Lapping 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 Mild AI. Qmvu-vr-wkalsdxl TR. Mild PI. Zyuzjtlx-ez-sauftw PAH. | | | Bilateral pleural effusions [...] = 54mmHg | | | (consistent with evnyxrpm-za-hmsbjl pulmonary arterial | | | hypertension--reading was consistent with direct PASP measurement via | | | Silverthorne-Roland catheter). Pulmonic Valve Peak Velocity: 51.33 cm/s [...] = 54mmHg | | | (consistent with vlvvcmcs-yp-nhwnnu pulmonary arterial | | | hypertension--reading was consistent with direct PASP measurement via | | | Silverthorne-Roland catheter). | | | | | | [...] Demographics Patient Name BOB MANCINI Room Number [id number] | | Patient Number [id number] Date of Study 02/15/2019 Visit Number | | [id number] Referring Physician LUISANA ALCALA Accession Number [id number] | | Lapping Machine Tender Date of 1965 Interpreting Physician Ed Elmore | | Age 53 year(s) Nurse Gender Male Stress | | TechnicianProcedureType of Study SHALA procedure:TRANSESOPHAGEAL(SHALA) - | | PERIOPERATIVE.Procedure DateDate: 02/15/2019 Start: 07:41 AMStudy [facility]: [facility] | | Quality: Adequate visualizationPatient Status: RoutineHeight: 70.87 inches Weight: | | 208.12 pounds BSA: 2.14 m^2 BMI: 29.14 kg/m^2Rhythm: Normal Sinus Rhythm HR: 75 bpm BP: | | 110/70 mmHg Conclusions Summary Severely depressed baseline LV global systolic function | | with multiple RWMAs as documented below. LVEF = 25-30%. Mild MR. Mild AI. | | Wkqp-ae-xlslnknr TR. Mild PI. Hbdfufpq-ly-jbvlgn PAH. Bilateral pleural effusions | | (drained [...] tricuspid regurgitation. RVSP = 54mmHg (consistent with hhzgunuw-ku-hiusie | | pulmonary arterial hypertension--reading was consistent with direct PASP measurement | | via Silverthorne-Roland catheter). Pulmonic Valve Peak Velocity: 51.33 cm/s [...] RVSP = 54mmHg | | (consistent with dzahimqj-qr-guegzp pulmonary arterial | | hypertension--reading was consistent with direct PASP measurement via | | Silverthorne-Roland catheter). | | | | Pulmonic Valve [...] | | | POC | performed at [facility];[address] | | LABORATORY | | | | [address];[place], [place] | | | | | | [address] | | | | + + + + + + + + | Specimen | + + | | + + + + + + + | Performing | Address | City/State/Zipcode | Phone Number | | Organization | | | | + + + + + | [facility] | [address] | [place] [address] | [phone] | + + + + + PTT (02/15/2019 5:49 AM PDT) + + + + + + | Component | Value | Ref Range | Performed | Pathologist | | | | | At | Signature | + + + + + + | PTT | 64 (H)Comment: Testing | 23 - 32 seconds | [facility] | | | | performed at [facility];[address] | | LABORATORY | | | | [address];[place], [place] | | | | | | [address] | | | | + + + + + + + + | Specimen | + + | | + + + + + + + | Performing | Address | City/State/Zipcode | Phone Number | | Organization | | | | + + + + + | [facility] | [address] | [place] [address] | [phone] | + + + + + Protime [...] | | | | | performed at [facility];[address] | | | | | | [address];[place], [place] | | | | | | [address] | | | | + + + + + + + + | Specimen | + + | | + + + + + + + | Performing | Address | City/State/Zipcode | Phone Number | | Organization | | | | + + + + + | [facility] | [address] | [place] [address] | [phone] | + + + + + CBC [...] [facility] | | | | performed at [facility], [address] | | LABORATORY | | | | [address], | | | | | | [place] [address] | | | | + + + + + + + + | Specimen | + + | | + + + + + + + | Performing | Address | City/State/Zipcode | Phone Number | | Organization | | | | + + + + + | [facility] | [address] | [place] [address] | [phone] | + + + + + Renal [...] 37 (L)Comment: GFR <60: | >60 | [facility] | | | GFR | CHRONIC [...] | | | | | performed at [facility], [address] | | | | | | [facility], | | | | | | [place] [address] | | | | + + + + + + + + | Specimen | + + | Blood | + + + + + + + | Performing | Address | City/State/Zipcode | Phone Number | | Organization | | | | + + + + + | [facility] | [address] | [place] [address] | [phone] | + + + + + Red [...] | [facility] | | | COMMENT | [facility];[address] | | LABORATORY | | | | [address];[place] [address] | | | | + + + + + + + + | Specimen | + + | | + + + + + + + | Performing | Address | City/State/Zipcode | Phone Number | | Organization | | | | + + + + + | [facility] | [address] | [place] [address] | [phone] | + + + + + Type [...] + + + | UNIT # | [id number] | | [facility] | | | | [...] + + + | UNIT # | [id number] | | [facility] | | | | [...] + + + | UNIT # | [id number] | | [facility] | | | | [...] | | | RESULT | performed at [facility];[address] | | LABORATORY | | | | [address];[place], [place] | | | | | | [address] | | | | + + + + + + | UNIT # | [id number] | | [facility] | | | | [...] | + + + + + | [facility] | [address] | [place] [address] | [phone] | + + + + + PTT (02/14/2019 11:09 PM PDT) + + + + + + | Component | Value | Ref Range | Performed | Pathologist | | | | | At | Signature | + + + + + + | PTT | 52 (H)Comment: Testing | 23 - 32 seconds | [facility] | | | | performed at [facility];[address] | | LABORATORY | | | | [address];[place] | | | | | | [address] | | | | + + + + + + + + | Specimen | + + | Blood | + + + + + + + | Performing | Address | City/State/Zipcode | Phone Number | | Organization | | | | + + + + + | [facility] | [address] | [place] [address] | [phone] | + + + + + Troponin I (02/14/2019 11:09 PM PDT) + + + + + + | Component | Value | Ref Range | Performed | Pathologist | | | | | At | Signature | + + + + + + | Troponin I | 14.737 ()Comment: | 0.00 - 0.04 | [facility] [...] | | | | | performed at [facility];[address] | | | | | | [address] [facility];[place], [place] | | | | | | [address] | | | | + + + + + + + + | Specimen | + + | Blood | + + + + + + + | Performing | Address | City/State/Zipcode | Phone Number | | Organization | | | | + + + + + | [facility] | [address] | [place] [address] | [phone] | + + + + + XR [...] [facility] | | | | performed at [facility];[address] | | LABORATORY | | | | [address];[place], [place] | | | | | | [address] | | | | + + + + + + + + | Specimen | + + | Tissue - Both | | anterior nares (body | | structure) | + + + + + + + | Performing | Address | City/State/Zipcode | Phone Number | | Organization | | | | + + + + + | [facility] | [address] | [place] [address] | [phone] | + + + + + POC [...] | | | POC | performed at [facility];[address] | | LABORATORY | | | | [address];[place], [place] | | | | | | [address] | | | | + + + + + + + + | Specimen | + + | | + + + + + + + | Performing | Address | City/State/Zipcode | Phone Number | | Organization | | | | + + + + + | [facility] | [address] | [place] [address] | [phone] | + + + + + POC Glucose (02/14/2019 4:44 PM PDT) + + + + + + | Component | Value | Ref Range | Performed | Pathologist | | | | | At | Signature | + + + + + + | Glucose, | 166 (H)Comment: Testing | 65 - 99 mg/dL | [facility] | | | POC | performed at [facility];[address] | | LABORATORY | | | | [address];[place] | | | | | | [address] | | | | + + + + + + + + | Specimen | + + | | + + + + + + + | Performing | Address | City/State/Zipcode | Phone Number | | Organization | | | | + + + + + | [facility] | [address] | [place] [address] | [phone] | + + + + + ECG [...] MD | | | | | | (937) on 02/14/2019 | | | | | [...] [facility] | | | | performed at [facility];[address] | | LABORATORY | | | | [address];[place] | | | | | | [address] | | | | + + + + + + + + | Specimen | + + | Blood | + + + + + + + | Performing | Address | City/State/Zipcode | Phone Number | | Organization | | | | + + + + + | [facility] | [address] | [place] [address] | [phone] | + + + + + Troponin [...] BENÍTEZ | | | | | | [id number] AT 1523 BY Rima. | | | | | | Testing performed at | | | | | | [facility];[address] [facility] | | | | | | [facility];[place] [address] | | | | + + + + + + + + | Specimen | + + | Blood | + + + + + + + | Performing | Address | City/State/Zipcode | Phone Number | | Organization | | | | + + + + + | [facility] | [address] | [place] [address] | [phone] | + + + + + POC Glucose (02/14/2019 12:02 PM PDT) + + + + + + | Component | Value | Ref Range | Performed | Pathologist | | | | | At | Signature | + + + + + + | Glucose, | 148 (H)Comment: Testing | 65 - 99 mg/dL | [facility] | | | POC | performed at [facility];[address] | | LABORATORY | | | | [address];[place] | | | | | | [address] | | | | + + + + + + + + | Specimen | + + | | + + + + + + + | Performing | Address | City/State/Zipcode | Phone Number | | Organization | | | | + + + + + | [facility] | [address] | [place] [address] | [phone] | + + + + + POC [...] | | | POC | performed at [facility];[address] | | LABORATORY | | | | [address];[place], [place] | | | | | | [address] | | | | + + + + + + + + | Specimen | + + | | + + + + + + + | Performing | Address | City/State/Zipcode | Phone Number | | Organization | | | | + + + + + | [facility] | [address] | [place] [address] | [phone] | + + + + + Troponin I (02/14/2019 7:14 AM PDT) + + + + + + | Component | Value | Ref Range | Performed | Pathologist | | | | | At | Signature | + + + + + + | Troponin I | 12.832 ()Comment: | 0.00 - 0.04 | [facility] | | | | 0.04 ng/mL [...] | | | | BY:CARLA Baxter ON [id number] | | | | | | AT 0758 BY S. Testing | | | | | | performed at [facility] | | | | | | [facility];[place], [place] | | | | | | [address] | | | | + + + + + + + + | Specimen | + + | Blood | + + + + + + + | Performing | Address | City/State/Zipcode | Phone Number | | Organization | | | | + + + + + | [facility] | [address] | [place] [address] | [phone] | + + + + + Hemoglobin A1C (02/14/2019 6:11 AM PDT) + + + + + + | Component | Value | Ref Range | Performed | Pathologist | | | | | At | Signature | + + + + + + | Hemoglobin | 7.4 (H)Comment: HbA1c | 4.0 - 6.0 % | [facility] | | | A1c | method [...] | 166 (H)Comment: | <154 mg/dL | [facility] | | | Average | Estimated Average | | LABORATORY | | | Glucose | Glucose calculated from | | | | | | hemoglobin A1c by use of | | | | | | the ADArecommended | | | | | | formula.Testing | | | | | | performed at [facility], [address] | | | | | | [address] [facility], | | | | | | [place] [address] | | | | + + + + + + + + | Specimen | + + | Blood | + + + + + + + | Performing | Address | City/State/Zipcode | Phone Number | | Organization | | | | + + + + + | [facility] | [address] | [place] [address] | [phone] | + + + + + PTT (02/14/2019 6:11 AM PDT) + + + + + + | Component | Value | Ref Range | Performed | Pathologist | | | | | At | Signature | + + + + + + | PTT | 44 (H)Comment: Testing | 23 - 32 seconds | [facility] | | | | performed at [facility];[address] | | LABORATORY | | | | [address];[place], [place] | | | | | | [address] | | | | + + + + + + + + | Specimen | + + | Blood | + + + + + + + | Performing | Address | City/State/Zipcode | Phone Number | | Organization | | | | + + + + + | [facility] | [address] | [place] [address] | [phone] | + + + + + Renal [...] (L) | 3.6 - 5.0 g/dL | [facility] | | | | | | [facility] | | + + + + + + | Phosphorus | 3.3 | 2.3 - 4.8 mg/dL | [facility] | | | | | | LABORATORY | | + + + + + + | Estimated | 33 (L)Comment: GFR <60: | >60 | [facility] [...] | | | | | performed at [facility], [address] | | | | | | [facility], | | | | | | [place] [address] | | | | + + + + + + + + | Specimen | + + | Blood | + + + + + + + | Performing | Address | City/State/Zipcode | Phone Number | | Organization | | | | + + + + + | [facility] | [address] | [place] [address] | [phone] | + + + + + Troponin I (02/13/2019 11:43 PM PDT) + + + + + + | Component | Value | Ref Range | Performed | Pathologist | | | | | At | Signature | + + + + + + | Troponin I | 15.415 (HH)Comment: | 0.00 - 0.04 | [facility] | [...] | | | | VERIFIEDKATIE B IN P | | | | | | AT 0024 BY TDTesting | | | | | | performed at [facility];[address] | | | | | | [facility];[place], [place] | | | | | | [address] | | | | + + + + + + + + | Specimen | + + | Blood | + + + + + + + | Performing | Address | City/State/Zipcode | Phone Number | | Organization | | | | + + + + + | [facility] | [address] | [place] [address] | [phone] | + + + + + POC [...] | | | POC | performed at [facility];[address] | | LABORATORY | | | | [address];[place] | | | | | | [address] | | | | + + + + + + + + | Specimen | + + | | + + + + + + + | Performing | Address | City/State/Zipcode | Phone Number | | Organization | | | | + + + + + | [facility] | [address] | [place] [address] | [phone] | + + + + + POC Glucose (02/13/2019 6:25 PM PDT) + + + + + + | Component | Value | Ref Range | Performed | Pathologist | | | | | At | Signature | + + + + + + | Glucose, | 123 (H)Comment: Testing | 65 - 99 mg/dL | [facility] | | | POC | performed at [facility];[address] | | LABORATORY | | | | [address];[place] | | | | | | [address] | | | | + + + + + + + + | Specimen | + + | | + + + + + + + | Performing | Address | City/State/Zipcode | Phone Number | | Organization | | | | + + + + + | [facility] | [address] | [place] [address] | [phone] | + + + + + Troponin [...] | | | | BY:CARLA Gardner RN [facility] 1544 | | | | | | [id number] KAWTesting | | | | | | performed at [facility];[address] | | | | | | [address];[place] | | | | | | [address] | | | | + + + + + + + + | Specimen | + + | Blood | + + + + + + + | Performing | Address | City/State/Zipcode | Phone Number | | Organization | | | | + + + + + | [facility] | [address] | [place] [address] | [phone] | + + + + + POC [...] | | | POC | performed at [facility];[address] | | LABORATORY | | | | [address];[place], [place] | | | | | | [address] | | | | + + + + + + + + | Specimen | + + | | + + + + + + + | Performing | Address | City/State/Zipcode | Phone Number | | Organization | | | | + + + + + | [facility] | [address] | [place] [address] | [phone] | + + + + + POC [...] | | | POC | performed at [facility];[address] | | LABORATORY | | | | [address];[place] | | | | | | [address] | | | | + + + + + + + + | Specimen | + + | | + + + + + + + | Performing | Address | City/State/Zipcode | Phone Number | | Organization | | | | + + + + + | [facility] | [address] | [place] [address] | [phone] | + + + + + Phosphorus (02/13/2019 7:42 AM PDT) + + + + + + | Component | Value | Ref Range | Performed | Pathologist | | | | | At | Signature | + + + + + + | Phosphorus | 4.1Comment: Testing | 2.3 - 4.8 mg/dL | [facility] | | | | performed at [facility];[address] | | LABORATORY | | | | [address];[place], [place] | | | | | | [address] | | | | + + + + + + + + | Specimen | + + | Blood | + + + + + + + | Performing | Address | City/State/Zipcode | Phone Number | | Organization | | | | + + + + + | [facility] | [address] | [place] [address] | [phone] | + + + + + Troponin I (02/13/2019 7:42 AM PDT) + + + + + + | Component | Value | Ref Range | Performed | Pathologist | | | | | At | Signature | + + + + + + | Troponin I | 16.442 ()Comment: | 0.00 - 0.04 | [facility] [...] | | | | AT [address] CRDASHAWNesting | | | | | | performed at [facility];[address] | | | | | | [address];[place], [place] | | | | | | [address] | | | | + + + + + + + + | Specimen | + + | Blood | + + + + + + + | Performing | Address | City/State/Zipcode | Phone Number | | Organization | | | | + + + + + | [facility] | [address] [facility] | [place] [address] | [phone] | + + + + + CBC [...] | | | Absolute | performed at [facility];[address] | K/uL | LABORATORY | | | | [address];[place] | | | | | | [address] | | | | + + + + + + + + | Specimen | + + | Blood | + + + + + + + | Performing | Address | City/State/Zipcode | Phone Number | | Organization | | | | + + + + + | [facility] | [address] | [place] [address] | [phone] | + + + + + Basic [...] + | BUN/Creatin | 23 | | KR | | | ine Ratio | | | LABORATORY | | + + + + + + | Calcium | 8.4 (L) | 8.5 - 10.5 | [facility] | | | | | mg/dL | LABORATORY | | + + + + + + | Estimated | 31 (L)Comment: GFR <60: | >60 | [facility] | | | GFR | CHRONIC [...] | | | | | performed at [facility] | | | | | | [facility];[place], [place] | | | | | | [address] | | | | + + + + + + + + | Specimen | + + | Blood | + + + + + + + | Performing | Address | City/State/Zipcode | Phone Number | | Organization | | | | + + + + + | [facility] | [address] | [place] [address] | [phone] | + + + + + PTT (02/13/2019 5:09 AM PDT) + + + + + + | Component | Value | Ref Range | Performed | Pathologist | | | | | At | Signature | + + + + + + | PTT | 47 (H)Comment: Testing | 23 - 32 seconds | [facility] | | | | performed at [facility];[address] | | LABORATORY | | | | [address];[place] | | | | | | [address] | | | | + + + + + + + + | Specimen | + + | Blood | + + + + + + + | Performing | Address | City/State/Zipcode | Phone Number | | Organization | | | | + + + + + | [facility] | [address] | [place] [address] | [phone] | + + + + + Troponin I (02/12/2019 11:04 PM PDT) + + + + + + | Component | Value | Ref Range | Performed | Pathologist | | | | | At | Signature | + + + + + + | Troponin I | 19.769 ()Comment: | 0.00 - 0.04 | [facility] [...] | | | | | performed at [facility];[address] | | | | | | [address];[place] | | | | | | [address] | | | | + + + + + + + + | Specimen | + + | Blood | + + + + + + + | Performing | Address | City/State/Zipcode | Phone Number | | Organization | | | | + + + + + | [facility] | [address] | [place] [address] | [phone] | + + + + + POC [...] | | | POC | performed at [facility];[address] | | LABORATORY | | | | [address];[place], [place] | | | | | | [address] | | | | + + + + + + + + | Specimen | + + | | + + + + + + + | Performing | Address | City/State/Zipcode | Phone Number | | Organization | | | | + + + + + | [facility] | [address] | [place] [address] | [phone] | + + + + + POC Glucose (02/12/2019 4:30 PM PDT) + + + + + + | Component | Value | Ref Range | Performed | Pathologist | | | | | At | Signature | + + + + + + | Glucose, | 135 (H)Comment: Testing | 65 - 99 mg/dL | [facility] | | | POC | performed at [facility];[address] | | LABORATORY | | | | [address];[place] | | | | | | [address] | | | | + + + + + + + + | Specimen | + + | | + + + + + + + | Performing | Address | City/State/Zipcode | Phone Number | | Organization | | | | + + + + + | [facility] | [address] | [place] [address] | [phone] | + + + + + Troponin I (02/12/2019 3:51 PM PDT) + + + + + + | Component | Value | Ref Range | Performed | Pathologist | | | | | At | Signature | + + + + + + | Troponin I | 19.414 ()Comment: | 0.00 - 0.04 | [facility] | | | | 0.04 ng/mL [...] RESULTS | | | | | | VERIFIEDACEVER/ANABELA Torres | | | | | | AT 1638 BY SALTheather | | | | | | performed at [facility];[address] | | | | | | [facility];[place], [place] | | | | | | [address] | | | | + + + + + + + + | Specimen | + + | Blood | + + + + + + + | Performing | Address | City/State/Zipcode | Phone Number | | Organization | | | | + + + + + | [facility] | [address] | [place] [address] | [phone] | + + + + + Protein, Urine, Random (02/12/2019 3:05 PM PDT) + + + + + + | Component | Value | Ref Range | Performed | Pathologist | | | | | At | Signature | + + + + + + | Protein, | 345Comment: NO NORMAL | mg/dL | [facility] | | | Urine | RANGE ESTABLISHEDTesting | | LABORATORY | | | | performed at [facility], [facility] | | | | | | [address], | | | | | | [place] [address] | | | | + + + + + + + + | Specimen | + + | | + + + + + + + | Performing | Address | City/State/Zipcode | Phone Number | | Organization | | | | + + + + + | [facility] | [address] | [place] [address] | [phone] | + + + + + Protein/Creatinine Ratio, Urine (02/12/2019 3:05 PM PDT) + + + + + + | Component | Value | Ref Range | Performed | Pathologist | | | | | At | Signature | + + + + + + | PRO/CREA | 1.364Comment: Testing | | [facility] | | | RATIO,URINE | performed at [facility], [address] | | LABORATORY | | | | [address], | | | | | | [place] [address] | | | | + + + + + + + + | Specimen | + + | | + + + + + + + | Performing | Address | City/State/Zipcode | Phone Number | | Organization | | | | + + + + + | [facility] | [address] | [place] [address] | [phone] | + + + + + Urinalysis [...] - 1.030 | [facility] | | | [place], | | | LABORATORY | | | [...] | | | CRYSTALS | performed at [facility];[address] | | LABORATORY | | | | [address];[place] | | | | | | [address] | | | | + + + [...] | + + + + + | [facility] | [address] | [place] [address] | [phone] | + + + + + Urea Nitrogen, Urine, Random (02/12/2019 3:05 PM PDT) + + + + + + | Component | Value | Ref Range | Performed | Pathologist | | | | | At | Signature | + + + + + + | Urea | 570.0Comment: NO NORMAL | mg/dL | [facility] | | | Nitrogen, | RANGE ESTABLISHEDTesting | | LABORATORY | | | Urine | performed at [facility], [address] | | | | | [address] [facility], | | | | | | [place] [address] | | | | + + + [...] | + + + + + | [facility] | [address] | [place] [address] | [phone] | + + + + + Sodium, [...] | | | urine | performed at [facility], [address] | | | | | [address], | | | | | | [place] [address] | | | | + + + [...] | + + + + + | [facility] | [address] | [place] [address] | [phone] | + + + + + Eosinophil Smear, Urine (02/12/2019 3:05 PM PDT) + + + + + + | Component | Value | Ref Range | Performed | Pathologist | | | | | At | Signature | + + + + + + | Eosinophils | NO EOSINOPHILS | <1 % | [facility] | | | | SEENComment: Testing | | LABORATORY | | | | performed at [facility], [address] | | | | | | [address], | | | | | | [place] [address] | | | | + + + [...] | + + + + + | [facility] | [address] | [place] [address] | [phone] | + + + + + Creatinine, [...] | | | urine | performed at [facility], [address] | | | | | | [address] [facility] [address], | | | | | | [place] [address] | | | | + + + [...] | + + + + + | [facility] | [address] | [place] [address] | [phone] | + + + + + Chloride, [...] | | | CHLORIDE | performed at [facility], [address] | | | | | | [address] [facility] [address], | | | | | | [place] [address] | | | | + + + [...] | + + + + + | [facility] | [address] | [place] [address] | [phone] | + + + + + POC [...] | | | POC | performed at [facility];[address] | | LABORATORY | | | | [address];[place], [place] | | | | | | [address] | | | | + + + + + + + + | Specimen | + + | | + + + + + + + | Performing | Address | City/State/Zipcode | Phone Number | | Organization | | | | + + + + + | [facility] | [address] | [place] [address] | [phone] | + + + + + ECHO [...] | | | | | | n Braxton | | | | | + + [...] 22.34 ()Comment: | 0.00 - 0.04 | [facility] | | | | 0.04 ng/mL [...] | | | | | performed at [facility];[address] | | | | | | [address] [facility];[place], [place] | | | | | | [address] | | | | + + + + + + + + | Specimen | + + | Blood | + + + + + + + | Performing | Address | City/State/Zipcode | Phone Number | | Organization | | | | + + + + + | [facility] | [address] | [place] [address] | [phone] | + + + + + POC [...] | | | POC | performed at [facility];[address] | | LABORATORY | | | | [address];[place], [place] | | | | | | [address] | | | | + + + + + + + + | Specimen | + + | | + + + + + + + | Performing | Address | City/State/Zipcode | Phone Number | | Organization | | | | + + + + + | [facility] | [address] | [place] [address] | [phone] | + + + + + PTT (02/12/2019 5:12 AM PDT) + + + + + + | Component | Value | Ref Range | Performed | Pathologist | | | | | At | Signature | + + + + + + | PTT | 49 (H)Comment: Testing | 23 - 32 seconds | [facility] | | | | performed at [facility];[address] | | LABORATORY | | | | [address];[place] | | | | | | [address] | | | | + + + + + + + + | Specimen | + + | Blood | + + + + + + + | Performing | Address | City/State/Zipcode | Phone Number | | Organization | | | | + + + + + | [facility] | [address] | [place] [address] | [phone] | + + + + + Basic [...] | | | | | performed at [facility], [address] | | | | | | [facility], | | | | | | [place] [address] | | | | + + + + + + + + | Specimen | + + | Blood | + + + + + + + | Performing | Address | City/State/Zipcode | Phone Number | | Organization | | | | + + + + + | [facility] | [address] | [place] [address] | [phone] | + + + + + CBC [...] [facility] | | | | performed at [facility], [address] | | LABORATORY | | | | [address], | | | | | | [place] [address] | | | | + + + + + + + + | Specimen | + + | Blood | + + + + + + + | Performing | Address | City/State/Zipcode | Phone Number | | Organization | | | | + + + + + | [facility] | [address] | [place] [address] | [phone] | + + + + + CK Total (02/12/2019 5:12 AM PDT) + + + + + + | Component | Value | Ref Range | Performed | Pathologist | | | | | At | Signature | + + + + + + | CK TOTAL | 309Comment: Testing | 55 - 400 U/L | [facility] | | | | performed at [facility];[address] | | LABORATORY | | | | [address];[place], [place] | | | | | | [address] | | | | + + + + + + + + | Specimen | + + | Blood | + + + + + + + | Performing | Address | City/State/Zipcode | Phone Number | | Organization | | | | + + + + + | [facility] | [address] | [place] [address] | [phone] | + + + + + ECG [...] Testing | 65 - 99 mg/dL | [facility] | | | POC | performed at [facility];[address] | | LABORATORY | | | | [address];[place], [place] | | | | | | [address] | | | | + + + + + + + + | Specimen | + + | | + + + + + + + | Performing | Address | City/State/Zipcode | Phone Number | | Organization | | | | + + + + + | [facility] | [address] | [place] [address] | [phone] | + + + + + POC [...] | | | POC | performed at [facility];[address] | | LABORATORY | | | | [address];[place] | | | | | | [address] | | | | + + + + + + + + | Specimen | + + | | + + + + + + + | Performing | Address | City/State/Zipcode | Phone Number | | Organization | | | | + + + + + | [facility] | [address] | [place] [address] | [phone] | + + + + + PTT (02/11/2019 7:45 PM PDT) + + + + + + | Component | Value | Ref Range | Performed | Pathologist | | | | | At | Signature | + + + + + + | PTT | 46 (H)Comment: Testing | 23 - 32 seconds | [facility] | | | | performed at [facility];[address] | | LABORATORY | | | | [address];[place] | | | | | | [address] | | | | + + + + + + + + | Specimen | + + | Blood | + + + + + + + | Performing | Address | City/State/Zipcode | Phone Number | | Organization | | | | + + + + + | [facility] | [address] | [place] [address] | [phone] | + + + + + POC Glucose (02/11/2019 6:29 PM PDT) + + + + + + | Component | Value | Ref Range | Performed | Pathologist | | | | | At | Signature | + + + + + + | Glucose, | 127 (H)Comment: Testing | 65 - 99 mg/dL | [facility] | | | POC | performed at [facility];[address] | | LABORATORY | | | | [address];[place], [place] | | | | | | [address] | | | | + + + + + + + + | Specimen | + + | | + + + + + + + | Performing | Address | City/State/Zipcode | Phone Number | | Organization | | | | + + + + + | [facility] | [address] | [place] [address] | [phone] | + + + + + ECG [...] (H)Comment: Testing | 74 - 137 | [facility] | | | Clotting | performed at [facility];[address] | seconds | LABORATORY | | | Time, POC | [address];[place], [place] | | | | | | [address] | | | | + + + + + + + + | Specimen | + + | | + + + + + + + | Performing | Address | City/State/Zipcode | Phone Number | | Organization | | | | + + + + + | [facility] | [address] | [place] [address] | [phone] | + + + + + POC Glucose (02/11/2019 12:33 PM PDT) + + + + + + | Component | Value | Ref Range | Performed | Pathologist | | | | | At | Signature | + + + + + + | Glucose, | 124 (H)Comment: Testing | 65 - 99 mg/dL | [facility] | | | POC | performed at [facility];[address] | | LABORATORY | | | | [address];[place] | | | | | | [address] | | | | + + + + + + + + | Specimen | + + | | + + + + + + + | Performing | Address | City/State/Zipcode | Phone Number | | Organization | | | | + + + + + | [facility] | [address] | [place] [address] | [phone] | + + + + + PTT (02/11/2019 11:47 AM PDT) + + + + + + | Component | Value | Ref Range | Performed | Pathologist | | | | | At | Signature | + + + + + + | PTT | 48 (H)Comment: Testing | 23 - 32 seconds | [facility] | | | | performed at [facility];[address] | | LABORATORY | | | | [facility];[place], [place] | | | | | | [address] | | | | + + + + + + + + | Specimen | + + | Blood | + + + + + + + | Performing | Address | City/State/Zipcode | Phone Number | | Organization | | | | + + + + + | [facility] | [address] | [place] [address] | [phone] | + + + + + Troponin I (02/11/2019 11:47 AM PDT) + + + + + + | Component | Value | Ref Range | Performed | Pathologist | | | | | At | Signature | + + + + + + | Troponin I | 14.741 ()Comment: | 0.00 - 0.04 | [facility] | | | | 0.04 ng/mL [...] NURSING | | | | | | FRANNYEN S/6 RP @ 1227 | | | | | | BY BURTREAD BACK RESULTS | | | | | | VERIFIEDTesting | | | | | | performed at [facility] | | | | | | [facility];[place], [place] | | | | | | [address] | | | | + + + + + + + + | Specimen | + + | Blood | + + + + + + + | Performing | Address | City/State/Zipcode | Phone Number | | Organization | | | | + + + + + | [facility] | [address] | [place] [address] | [phone] | + + + + + ECG [...] [facility] | | | | performed at [facility];[address] | | LABORATORY | | | | [address];[place] | | | | | | [address] | | | | + + + + + + + + | Specimen | + + | Blood | + + + + + + + | Performing | Address | City/State/Zipcode | Phone Number | | Organization | | | | + + + + + | [facility] | [address] | [place] [address] | [phone] | + + + + + TSH (02/11/2019 7:43 AM PDT) + + + + + + | Component | Value | Ref Range | Performed | Pathologist | | | | | At | Signature | + + + + + + | TSH | 0.779Comment: Testing | 0.450 - 5.100 | [facility] | | | | performed at [facility];[address] | uIU/mL | LABORATORY | | | | [address];[place] | | | | | | [address] | | | | + + + + + + + + | Specimen | + + | Blood | + + + + + + + | Performing | Address | City/State/Zipcode | Phone Number | | Organization | | | | + + + + + | [facility] | [address] | [place] [address] | [phone] | + + + + + B Type Natriuretic Peptide (02/11/2019 7:43 AM PDT) + + + + + + | Component | Value | Ref Range | Performed | Pathologist | | | | | At | Signature | + + + + + + | BNP | 406.69 (H)Comment: | 0 - 100 pg/mL | [facility] | | | | Testing performed at | | LABORATORY | | | | [facility];[address];[place] [address] | | | | + + + + + + + + | Specimen | + + | Blood | + + + + + + + | Performing | Address | City/State/Zipcode | Phone Number | | Organization | | | | + + + + + | [facility] | [address] | [place] [address] | [phone] | + + + + + Lipid [...] | 95Comment: Testing | <100 mg/dL | [facility] | | | Calculated | performed at [facility], [address] | | LABORATORY | | | | [address], | | | | | | [place] [address] | | | | + + + + + + + + | Specimen | + + | Blood | + + + + + + + | Performing | Address | City/State/Zipcode | Phone Number | | Organization | | | | + + + + + | [facility] | [address] | [place] [address] | [phone] | + + + + + Comprehensive [...] | | | | | performed at [facility], [address] | | | | | | [facility], | | | | | | [place] [address] | | | | + + + + + + + + | Specimen | + + | Blood | + + + + + + + | Performing | Address | City/State/Zipcode | Phone Number | | Organization | | | | + + + + + | [facility] | [address] | [place] [address] | [phone] | + + + + + CBC [...] [facility] | | | | performed at [facility], [address] | | LABORATORY | | | | [address], | | | | | | [place] [address] | | | | + + + + + + + + | Specimen | + + | Blood | + + + + + + + | Performing | Address | City/State/Zipcode | Phone Number | | Organization | | | | + + + + + | [facility] | [address] | [place] [address] | [phone] | + + + + + Troponin [...] NURSING | | | | | | ALEJANDRA V/6RP @ 2097 | | | | | | [facility] | | | | | | VERIFIEDTesting | | | | | | performed at [facility];[address] | | | | | | [address];[place], [place] | | | | | | [address] | | | | + + + + + + + + | Specimen | + + | Blood | + + + + + + + | Performing | Address | City/State/Zipcode | Phone Number | | Organization | | | | + + + + + | [facility] | [address] | [place] [address] | [phone] | + + + + + POC [...] | | | POC | performed at [facility];[address] | | LABORATORY | | | | [address];[place], [place] | | | | | | [address] | | | | + + + + + + + + | Specimen | + + | | + + + + + + + | Performing | Address | City/State/Zipcode | Phone Number | | Organization | | | | + + + + + | [facility] | [address] | [place] [address] | [phone] | + + + + + Troponin I (02/11/2019 3:56 AM PDT) + + + + + + | Component | Value | Ref Range | Performed | Pathologist | | | | | At | Signature | + + + + + + | Troponin I | 9.098 ()Comment: | 0.00 - 0.04 | [facility] | | | | 0.04 ng/mL [...] | | | | | performed at [facility] | | | | | | [facility];[place], [place] | | | | | | [address] | | | | + + + + + + + + | Specimen | + + | Blood | + + + + + + + | Performing | Address | City/State/Zipcode | Phone Number | | Organization | | | | + + + + + | [facility] | [address] | [place] [address] | [phone] | + + + + + ECG [...] (500), | | | | | | image editor Shea Fajardo | | | | [...] PST | | | | +-------+ +-------+---+---+ + +---+ | | | [...] | + +---+ + +-------+ +--------+---+---+ | heparin 1,000 units/mL | Given | 02/12/20 | 2,000 | | | | injection ONCE PRN, Starting Sun | | 19 1:06 | Units | | | | 02/11/19 at 1306, Intra-op | | PM PDT | | [...] | | +---+---+ + +-------+ +--------+---+---+ | iohexol (OMNIPAQUE 300) 300 | Given | 02/12/20 | 40 mLs | | | | mg/mL injection ONCE PRN, | | 19 1:12 | | | | | Starting 02/11/19 at 1312, | | PM PDT | | | | | Intra-op | | | | | | + +-------+ +--------+---+---+ +---+---+ | | | +---+---+ + +-------+ +--------+---+---+ | lidocaine 1% injection ONCE | Given | 02/12/20 | 10 mLs | | | | PRN, Starting 02/11/19 at | | 19 1:02 | | | | | 1302, Intra-op | | PM PDT | | [...]
--- OUTSIDE RECORDS SUMMARY | ~2019-04-07 | XMS | Encounter Summary ---
Demographics + + + | Address | [address] | | | [place] [address] | + + + | Home Phone [...] + + + | Author | [facility] | | | and [place] | + + + | Organization | [facility] | | [...] Team Providers + +------+ + | Care Vegetable Grader Name | Role | Phone | + +------+ + PCP | Unavailable | + +------+ + Encounter Details +--------+ + + + + | Date | Type | Department | Care Team | Description | +--------+ + + + + | 09/14/ | Hospital | [facility] | Conversion | Diagnosis unknown | | 2018 | Encounter | CONVERSION [address] | [address], | | | | [address] | Provider Unknown | | | | | [place], [place] | [phone] | | | | | [address] | | | | | | [phone] | | | +--------+ + + + [...] | | | | | [place] [address] | | | | | | [phone] | | | | | | | [...]
--- OUTSIDE RECORDS SUMMARY | ~2019-04-07 | XMS | Encounter Summary ---
Demographics + + + | Address | [address] 1974 | | | [place] [address] | + + + | Home Phone [...] Team Providers + +------+ + | Care Risk Mgr Name | Role | Phone | + [...] | | | | | | | qagan tayagungin or | | | | | | [...] + + | 02/11/ | Surgery | [facility] | Ally, | CV COR ANGIO | | 2018 | | CENTER CV INTRA OP | Juan Ornelasin, | | | | | [address] | [address] | | | | | [place], [place] | [address] [place], | | | | | [address] | [place] [address] | | | | | [phone] | [phone] | | | | | | | [...] was diagnosed with a non- ST segment KS. He was evaluated by Dr. Canales and [...] The patient was fit for discharge to [facility] ([facility]) on 02/28/19. Problems addressed during hospital stay: 1)Low EF with LV thrombus: On Xarelto [facility] for PAF (pt remained SR throughout hospitalizati on), however dt concern for bleeding was started on Coumadin instead. Goal INR 2-3. F/u with cardiology 2)CKD/ARF: Nephrology following patient closely throughout hospitalization. Cr increased h owever improved with hydration. 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 Pt advised not to drive for [...] manage prescriptions until pt has seen seen Customs Investigator and Primary Care Physician, who will resume [...] file. Follow up: Yue Mcguire PA-C [address] [facility] [address] [facility] [id number] Liban Nair MD [address] [facility] E [facility] [place] [facility] [place] [address] Schedule an appointment as soon as possible for a visit on 03/13/2019 Post-op Juan Canales MD [address] [facility] 2[address] [facility] [place] [facility] [place] [address] Schedule an appointment as soon as [...] | | | | | | | [id number] to [phone] Give | | | | | | | 4 [id number] to [phone] | | | | | | | Give 6 [id number] | | | | | | | [...] a long and complicated course during his counts include 234 beds at the [facility] hospitalization. In brief he is status [...] was completed later after rounds. Dictation software, Sensulin, was used which may contain error for [...] note might be different from the [facility] Service: Cardiology Progress Note Hospital [...] a long and complicated course during his counts include 234 beds at the [facility] hospitalization. In brief he is status [...] was completed later after rounds. Dictation software, Sensulin, was used which may contain error for [...] note might be different from the [facility] Service: Cardiology Progress Note Hospital [...] Barrow PA-C - 02/27/2019 8:17 AM PST [facility] Service: Cardiothoracic Surgery Progress Note ROOM: [...] hours. No results for input(s): PHART, PO2ART, YJX1PCI, [id number], BEART in the last 168 hours. Recent [...] Continue Step Down Unit care. Discharge to [facility] Bed Nephrology Consult. Code Status: Full [...] Lizarraga MD - 02/26/2019 9:05 AM PST [facility] Service: Infectious Disease Progress Note [...] A/B, NAAT NEGATIVE CLNEG C Diff Strain [id number], Stool 027 NAP1 BI PRESUMPTIVE NEGATIVE POC [...] might be different fro m the original. [facility] Service: Cardiology Progress Note Hospital Day: [...] Barrow PA-C - 02/26/2019 7:41 AM PST [facility] Service: Cardiothoracic Surgery Progress Note ROOM: [address] [place] [address] Hospital Day: LOS: 15 days Post-Op Day: [...] hours. No results for input(s): PHART, PO2ART, TOY4PDD, N2ZWIHXW, BEART in the last 168 hours. Recent [...] Continue Step Down Unit care. Discharge to [facility] Swing Bed pending Life Vest place [...] ARNP - 02/25/2019 10:06 AM PST . [facility] Service: Cardiothoracic Surgery Progress Note ROOM: [address] [place] [address] Hospital Day: LOS: 14 days Post-Op Day: [...] hours. No results for input(s): PHART, PO2ART, NPF9GCN, Y0PHENRG, BEART in the last 168 hours. Recent [...] Continue Step Down Unit care. Placement with [facility] Swing Bed on Tuesday. Code Status: [...] might b e different from the original. [facility] Service: Cardiology Progress note Hospital Day: [...] might be different from the o shant[facility]. [facility] Service: Cardiothoracic Surgery Progress Note ROOM: [address] [place] [address] Hospital Day: LOS: 13 days Post-Op Day: [...] hours. No results for input(s): PHART, PO2ART, QLW0NDY, W8DQESHB, BEART in the last 168 hours. Recent [...] Continue Step Down Unit care. Placement with [facility] Swing Bed on Tuesday. Code Status: Full Code The patient has been seen, all new lab results and imaging reviewed, and the plan discussed with the attending provider, Dr. Matias GARCIA, [employer]ODU[employer] MACHINE OPERATOR 02/24/2019 Associated attestation - Mark Salcedo MD [...] might b e different from the original. [facility] Service: Cardiology Progress note Hospital Day: [...] Duval at 02/23/2019 2:09 PM Halima Marks [facility] - 1 04/25/2018 1:55 PM PDT Clinical Pharmacy Note: Warfarin Continuation of Therapy Referring Provider: Valeria Robertson male 53 y.o. Indication Atrial Fibrillation, LV thrombus Goal INR: 2-3 Other Anticoagulation: Heparin drip (xarelto listed on [facility] med list) Drug Interactions: aspirin may increase list of bleeding. [facility] med list reviewed and no sign ificant [...] drip in anticipati on of discharge to [facility] this weekend. If INR increases by [...] Angelo MD - 02/23/2019 12:59 PM PDT [facility] Service: Cardiology Progress note Hospital Day: [...] might be different from the or iginal. [facility] Service: Cardiothoracic Surgery Progress Note ROOM: [...] hours. No results for input(s): PHART, PO2ART, OPO2DUG, R3HBEAOY, BEART in the last 168 hours. Recent [...] Continue Step Down Unit care. Placement with [facility] Swing Bed pending. Anticipate d ischarge this [...] ANTICOAGULATION: heparin drip inpatient (Xarelto listed on [facility] med list) DRUG INTERACTIONS: aspirin and plavix may increase list of bleeding. [facility] med list reviewed and no significant DDI [...] Angelo MD - 02/22/2019 1:39 PM PDT [facility] Service: Cardiology Cross coverage for Dr. [...] FOR ANY QUESTIONS, THANKS FOR THE CONSULT Stansilav Patricio MD ose, Yomi Manzon, [employer] MACHINE OPERATOR - 02/22/2019 7:48 AM PDT [facility] Service: Cardiothoracic Surgery Progress Note ROOM: [address] [place] [address] Hospital Day: LOS: 11 days Post-Op Day: [...] 7.383 7.329* 7.309* PO2ART 94 94 83 [id number] 39 43 39 [id number] 97 97 95 Recent Labs Lab 02/22/19 [...] Cardiac Unit care for now. Placement with [facility] Swing Bed pending. Antici fleming discharge [...] acute events, VSS. Chart check complete. Leisa Olsno RN - 02/21/2019 8:06 PM PDTEnd of [...] OTHER ANTICOAGULATION: none inpatient (Xarelto listed on [facility] med list) DRUG INTERACTIONS: aspirin and plavix may increase list of bleeding. [facility] med list reviewed and no significant DDI [...] therapy as indication. Meredith Murphy, PharmD, BCPS Motnserrat Mott PA-C - 02/21/2019 11:50 AM PDTFormatting of this note might be different [facility]: Cardiothoracic Surgery Progress Note ROOM: [address] [place] [address]- Hospital Day: LOS: 10 days Post-Op Day: [...] 7.383 7.329* 7.309* PO2ART 94 94 83 [id number] 39 43 39 [id number] 97 97 95 Recent Labs Lab 02/15/19 [...] Cardiac Unit care for now. Placement with [facility] Bed pending. Bricei fleming discharge on 02/22. [...] Mott PA-C - 02/20/2019 9:30 AM PDT [facility] Service: Cardiothoracic Surgery Progress Note ROOM: [address] [place] [address] Hospital Day: LOS: 9 days Post-Op Day: [...] 7.383 7.329* 7.309* PO2ART 94 94 83 [id number] 39 43 39 [id number] 97 97 95 Recent Labs Lab 02/15/19 [...] Cardiac Unit care for now. Placement with [facility] Swing Bed pending. Code Status: Full [...] might be different from the shaggy montelongo [facility] Service: Cardiothoracic Surgery Progress Note ROOM: [facility] Hospital Day: LOS: 8 days Post-Op Day: [...] 7.383 7.329* 7.309* PO2ART 94 94 83 [id number] 39 43 39 [id number] 97 97 95 Recent Labs Lab 02/15/19 [...] note might be different from the [facility] Service: Cardiothoracic Surgery Progress Note ROOM: [address] [place] [address] Hospital Day: LOS: 7 days Post-Op Day: [...] Oral BID Continuous Infusions dexmedetomidine Stopped (02/16/19 3045) dextrose 10% EPINEPHrine infusion Stopped (02/16/19 1550) nitroglycerin in dextrose Stopped (02/15/19 1308) phenylephrine 30 mcg/min (02/16/19 5419) vasopressin (VASOSTRICT) infusion (shock) PRN Medications albumin, [...] 7.383 7.329* 7.309* PO2ART 94 94 83 [id number] 39 43 39 [id number] 97 97 95 Recent Labs Lab 02/15/19 [...] Connor Wallace ARNP - 02/18/2019 3:[address] [facility] Service: Cad Designer Cardiothoracic Surgery Consult and Follow Up Date/Time:02/18/2019 [...] CKD stage 3, psoriasis who presented to [facility] due to a 2 day history [...] (ASA, plavix, betablocker, statin) - extubated to [place]. - Post operative management per CTS (chest [...] note might be different [facility] the [facility] Problem List: Principal Problem: NSTEMI (non-ST [...] Oral BID current Meds: dexmedetomidine Stopped (02/16/19 3024) dextrose 10% EPINEPHrine infusion Stopped (02/16/19 1550) nitroglycerin in dextrose Stopped (02/15/19 1308) phenylephrine 30 mcg/min (02/16/19 635) vasopressin (VASOSTRICT) infusion (shock) P.E. Vs; reviewed [...] Sanders PA - 1 4:11 PM PDT [facility] Service: Cardiothoracic Surgery Progress Note ROOM: [id number] Hospital Day: LOS: 6 days Post-Op Day: [...] 7.383 7.329* 7.309* PO2ART 94 94 83 [id number] 39 43 39 [id number] 97 97 95 Recent Labs Lab 02/15/19 [...] Connor Lim ARNP - 02/17/2019 1:[address] [facility] Service: Cad Designer Cardiothoracic Surgery Consult and Follow Up Date/Time:02/17/2019 [...] CKD stage 3, psoriasis who presented to [facility] due to a 2 day history [...] (ASA, plavix, betablocker, statin) - extubated to [place]. - Post operative management per CTS (chest [...] Oral BID current Meds: dexmedetomidine Stopped (02/16/19 8238) dextrose 10% EPINEPHrine infusion 1 mcg/min (02/16/19 [...] Sanders PA - 1 9:38 AM PDT [facility] Service: Cardiothoracic Surgery Progress Note ROOM: [address] [place] [address] Hospital Day: LOS: 5 days Post-Op Day: [...] C (99 F) (Infrared Device) Comment (Src): [place] catheter | Resp 16 | Ht 1.803 [...] 7.383 7.329* 7.309* PO2ART 94 94 83 [id number] 39 43 39 [id number] 97 97 95 Recent Labs Lab 02/15/19 [...] Celeste Hicks ARNP - 02/16/2019 6:[address] [facility] Service: Cad Designer Cardiothoracic Surgery Consult and Follow Up Date/Time:02/16/2019 [...] CKD stage 3, psoriasis who presented to [facility] due to a 2 day history [...] C (99 F) (Infrared Device) Comment (Src): [place] catheter | Resp 19 | Ht 1.803 [...] (ASA, plavix, betablocker, statin) - extubated to [place]. - Post operative management per CTS (chest [...] | BMI 28.93 kg/m General appearance: [facility] Lungs: Clear to auscultation by CHARISMA. [...] presented with: "Chest Pain" Recommendations: No acute WOODS WARDEN indication Gentle IVF. Plan to stop IVF [...] the ON pump repor t by phone [phone] @ 6221 OFF bypass report received @ 1152 Gave [...] presented with: "Chest Pain" Recommendations: No acute WOODS WARDEN indication Stop IVF Strict low sodium in [...] Sue Calderon MD - 8:52 AM PDT [facility] Service: Hospitalist Progress Note Hospital Day: LOS: 3 days Post-Op Day: Day of Surgery SUBJECTIVE Patient Summary: 53-year-old male who has a known history of coronary arter y disease, status post stenting approximately in 2007, afib on xarelto, hypertension, HLD, D M type II who was transferred from [facility] for chest pain and was found [...] sodium chloride 0.9% 75 mL/hr at 02/13/19 3580 PRN Medications acetaminophen, Hypoglycemia Management AND POCT [...] inpatient, currently scheduled for . Chronic diarrhea: [place] to be related to lactose intolerance. He [...] note might be different from the [facility] Service: Cardiology Progress Note Hospital [...] Jacinda Damon RN - 02/13/2019 10:39 PM [id number] Patient complained of CP 1x nitroglycerin given after 5 min RN reassessed and patient stated that the pain has subsided. Patient SOB when ambulat ing to the restroom. 1L NC on while sleeping. Otherwise, hourly rounding uneventful. Lorena Smith RN Vanna Gonzalez MD - 02/13/2019 11:41 AM PDTFormatting of this note might be different from the origin [facility] Problem List: Principal Problem: NSTEMI (non-ST [...] dextrose 10% heparin infusion 12 Units/kg/hr (02/13/19 1460) sodium chloride 0.9% 1,000 mL (02/13/19 7772) P.E. BP 115/72 | Pulse 78 | [...] risk of JAMESON are undertaken. No acute WOODS WARDEN indication Gentle IVF as ordered Strict low [...] MD - 02/13/2019 8:59 AM PDT . [facility] Service: Cardiology Progress Note Hospital Day: [...] note might be different from the [facility] Service: Hospitalist Progress Note Hospital Day: LOS: 2 days Post-Op Day: Day of Surgery SUBJECTIVE Patient Summary: 53-year-old male who has a known history of coronary arter y disease, status post stenting approximately in 2007, afib on xarelto, hypertension, HLD, D M type II who was transferred from [facility] for chest pain and was found [...] PV Regurgitation Velocity 132.5 cm/s AV Deceleration Randolph 224.61 cm/s2 AV Deceleration Time 1,390.28 msec [...] Color, UA YELLOW Clarity, UA HAZY Specific [place], Urine 1.020 1.002 - 1.030 Leukocyte esterase, [...] note might be different from the original. [facility] Service: Hospitalist Progress Note Hospital Day: LOS: 1 day Post-Op Day: Day of Surgery SUBJECTIVE Patient Summary: 53-year-old male who has a known history of coronary arter y disease, status post stenting approximately in 2007, afib on xarelto, hypertension, HLD, D M type II who was transferred from [facility] for chest pain and was found [...] dextrose 10% heparin infusion 12 Units/kg/hr (02/12/19 5736) sodium chloride 0.9% 75 mL/hr at 02/12/19 [...] PV Regurgitation Velocity 132.5 cm/s AV Deceleration [place] 224.61 cm/s2 AV Deceleration Time 1,390.28 msec [...] Color, UA YELLOW Clarity, UA HAZY Specific [place], Urine 1.020 1.002 - 1.030 Leukocyte esterase, [...] Sue Avitia MD 02/12/2019 [place] CDL FLATBED TRUCK DRIVER - 02/12/2019 8:54 AM [facility] and informed that patient picked up h is Xarelto on 02/10/19. Per documentation and patient information. Patient took his last dos e of Xarelto on Tuesday morning (02/10/19). He then presented to [facility] on the of 02/10 and was transferred to [facility] early Tuesday (02/11/2019). Additionally, per ED documentation, the patient has not seen a Customs Investigator in 8 years, how ever he was [...] Montenegro MD - 02/12/2019 8:48 AM PDT [facility] Service: Cardiology Progress Note Hospital Day: [...] Denied CP throughout shift. Pt up to [facility]. [facility] site is c/d/i. Hourly rounding uneventful otherwise. Chart check complete. Ale Bernard, ROCAEL Kerline Rojas RN - 02/11/2019 7:00 PM PDTPt transferred from clinical lab clerk to the floor at 1344 and remained [...] Calderon MD - 02/11/2019 12:00 PM PDT [facility] Service: Hospitalist Progress Note Hospital Day: [...] Confirmed by MUSE READ ONLY, -COMPUTER ([id number]), medical transcription editor Fajardo, Shea ([id number]) on 02/11/2019 12:59 [...] heart failure: [facility] here shows EF of 45-50%. As [...] 2019 | Visit | | [address] | | | | | | [address] [place] | | | | | | [place] [address] | | | | | | [phone] | | | | | | | [...] | | | RN: | | | [id number] | | | [id number] | | | riteri | | | [...] | | | St. | | | [place] | | | y | | | [...] | | | St. | | | [place] | | | y H. | | [...] | | | St. | | | [place] | | | y H. | | [...] | | | St. | | | [place] | | | y H. | | [...] | | | St. | | | [place] | | | y H. | | [...] | | | St. | | | [place] | | | y H. | | [...] | | e of | | | qagan tayagungin | | | | | | dasilva [...] POC | performed at [facility];[address] | | LABORATORY | | | | [address];[place] | | | | | | [address] | | | | + + + + + + + + | Specimen | + + | | + + + + + + + | Performing | Address | City/State/Zipcode | Phone Number | | Organization | | | | + + + + + | [facility] | [address] | [place] [address] | [phone] | + + + + + Protime [...] | | performed at [facility];[address] | | | | | | [facility];[place], [place] | | | | | | [address] | | | | + + + + + + + + | Specimen | + + | Blood | + + + + + + + | Performing | Address | City/State/Zipcode | Phone Number | | Organization | | | | + + + + + | [facility] | [address] | [place] [address] | [phone] | + + + + + Magnesium [...] | | | | | [place] [address] | | | | + + + + + + + + | Specimen | + + | Blood | + + + + + + + | Performing | Address | City/State/Zipcode | Phone Number | | Organization | | | | + + + + + | [facility] | [address] | [place] [address] | [phone] | + + + + + CBC [...] | | | Absolute | performed at [facility], [address] | [address] | LABORATORY | | | | [address], | | | | | | [place] [address] | | | | + + + + + + + + | Specimen | + + | Blood | + + + + + + + | Performing | Address | City/State/Zipcode | Phone Number | | Organization | | | | + + + + + | [facility] | [address] | [place] [address] | [phone] | + + + + + Basic [...] | | | | | | MDRD IDAZ traceable | | | | | | equation.Testing | | | | | | performed at [facility], [address] | | | | | | [facility], | | | | | | [place] [address] | | | | + + + + + + + + | Specimen | + + | Blood | + + + + + + + | Performing | Address | City/State/Zipcode | Phone Number | | Organization | | | | + + + + + | [facility] | [address] | [place] [address] | [phone] | + + + + + POC [...] POC | performed at [facility];[address] | | LABORATORY | | | | [address];[place], [place] | | | | | | [address] | | | | + + + + + + + + | Specimen | + + | | + + + + + + + | Performing | Address | City/State/Zipcode | Phone Number | | Organization | | | | + + + + + | [facility] | [address] | [place] [address] | [phone] | + + + + + POC [...] POC | performed at [facility];[address] | | LABORATORY | | | | [address];[place] | | | | | | [address] | | | | + + + + + + + + | Specimen | + + | | + + + + + + + | Performing | Address | City/State/Zipcode | Phone Number | | Organization | | | | + + + + + | [facility] | [address] | [place] [address] | [phone] | + + + + + POC [...] POC | performed at [facility];[address] | | LABORATORY | | | | [address];[place], [place] | | | | | | [address] | | | | + + + + + + + + | Specimen | + + | | + + + + + + + | Performing | Address | City/State/Zipcode | Phone Number | | Organization | | | | + + + + + | [facility] | [address] | [place] [address] | [phone] | + + + + + POC [...] POC | performed at [facility];[address] | | LABORATORY | | | | [address];[place], [place] | | | | | | [address] | | | | + + + + + + + + | Specimen | + + | | + + + + + + + | Performing | Address | City/State/Zipcode | Phone Number | | Organization | | | | + + + + + | [facility] | [address] | [place] [address] | [phone] | + + + + + POC [...] POC | performed at [facility];[address] | | LABORATORY | | | | [address];[place], [place] | | | | | | [address] | | | | + + + + + + + + | Specimen | + + | | + + + + + + + | Performing | Address | City/State/Zipcode | Phone Number | | Organization | | | | + + + + + | [facility] | [address] | [place] [address] | [phone] | + + + + + Protime [...] | | performed at [facility];[address] | | | | | | [facility];[place] | | | | | | [address] | | | | + + + + + + + + | Specimen | + + | Blood | + + + + + + + | Performing | Address | City/State/Zipcode | Phone Number | | Organization | | | | + + + + + | [facility] | [address] | [place] [address] | [phone] | + + + + + Magnesium (02/27/2019 3:49 AM PST) + + + + + + | Component | Value | Ref Range | Performed | Pathologist | | | | | At | Signature | + + + + + + | Magnesium | 2.0Comment: Testing | 1.7 - 2.4 mg/dL | [facility] | | | | performed at [facility], [address] | | LABORATORY | | | | [address], | | | | | | [place] [address] | | | | + + + + + + + + | Specimen | + + | Blood | + + + + + + + | Performing | Address | City/State/Zipcode | Phone Number | | Organization | | | | + + + + + | [facility] | [address] | [place] [address] | [phone] | + + + + + CBC [...] | | | Absolute | performed at [facility], [address] | K/uL | LABORATORY | | | | [address], | | | | | | [place] [address] | | | | + + + + + + + + | Specimen | + + | Blood | + + + + + + + | Performing | Address | City/State/Zipcode | Phone Number | | Organization | | | | + + + + + | [facility] | [address] | [place] [address] | [phone] | + + + + + Basic [...] | | | | | [place] [address] | | | | + + + + + + + + | Specimen | + + | Blood | + + + + + + + | Performing | Address | City/State/Zipcode | Phone Number | | Organization | | | | + + + + + | [facility] | [address] | [place] [address] | [phone] | + + + + + POC [...] POC | performed at [facility];[address] | | LABORATORY | | | | [address];[place], [place] | | | | | | [address] | | | | + + + + + + + + | Specimen | + + | | + + + + + + + | Performing | Address | City/State/Zipcode | Phone Number | | Organization | | | | + + + + + | [facility] | [address] | [place] [address] | [phone] | + + + + + POC [...] POC | performed at [facility];[address] | | LABORATORY | | | | [address];[place] | | | | | | [address] | | | | + + + + + + + + | Specimen | + + | | + + + + + + + | Performing | Address | City/State/Zipcode | Phone Number | | Organization | | | | + + + + + | [facility] | [address] | [place] [address] | [phone] | + + + + + POC [...] POC | performed at [facility];[address] | | LABORATORY | | | | [address];[place] | | | | | | [address] | | | | + + + + + + + + | Specimen | + + | | + + + + + + + | Performing | Address | City/State/Zipcode | Phone Number | | Organization | | | | + + + + + | [facility] | [address] | [place] [address] | [phone] | + + + + + POC [...] POC | performed at [facility];[address] | | LABORATORY | | | | [address];[place], [place] | | | | | | [address] | | | | + + + + + + + + | Specimen | + + | | + + + + + + + | Performing | Address | City/State/Zipcode | Phone Number | | Organization | | | | + + + + + | [facility] | [address] | [place] [address] | [phone] | + + + + + Protime [...] | | performed at [facility];[address] | | | | | | [facility];[place] | | | | | | [address] | | | | + + + + + + + + | Specimen | + + | Blood | + + + + + + + | Performing | Address | City/State/Zipcode | Phone Number | | Organization | | | | + + + + + | [facility] | [address] | [place] [address] | [phone] | + + + + + Magnesium [...] | | | | | [place] [address] | | | | + + + + + + + + | Specimen | + + | Blood | + + + + + + + | Performing | Address | City/State/Zipcode | Phone Number | | Organization | | | | + + + + + | [facility] | [address] | [place] [address] | [phone] | + + + + + CBC [...] | | | Absolute | performed at [facility], [address] | [address] | LABORATORY | | | | [address], | | | | | | [place] [address] | | | | + + + + + + + + | Specimen | + + | Blood | + + + + + + + | Performing | Address | City/State/Zipcode | Phone Number | | Organization | | | | + + + + + | [facility] | [address] | [place] [address] | [phone] | + + + + + Basic [...] | | | | | performed at [facility], [address] | | | | | | [facility], | | | | | | [place] [address] | | | | + + + + + + + + | Specimen | + + | Blood | + + + + + + + | Performing | Address | City/State/Zipcode | Phone Number | | Organization | | | | + + + + + | [facility] | [address] | [place] [address] | [phone] | + + + + + POC [...] POC | performed at [facility];[address] | | LABORATORY | | | | [address];[place] | | | | | | [address] | | | | + + + + + + + + | Specimen | + + | | + + + + + + + | Performing | Address | City/State/Zipcode | Phone Number | | Organization | | | | + + + + + | [facility] | [address] | [place] [address] | [phone] | + + + + + Clostridium [...] NEGATIVEComment: | | LABORATORY | | | [id number] | Detection of 027 [id number] BI | [...] | | performed at [facility] | | | | | | [facility];[place], [place] | | | | | | [address] | | | | + + + [...] LABORATORY | [address] | [place] [address] | [phone] | + + + + + POC [...] POC | performed at [facility];[address] | | LABORATORY | | | | [address];[place] | | | | | | [address] | | | | + + + + + + + + | Specimen | + + | | + + + + + + + | Performing | Address | City/State/Zipcode | Phone Number | | Organization | | | | + + + + + | [facility] | [address] | [place] [address] | [phone] | + + + + + POC [...] POC | performed at [facility];[address] | | LABORATORY | | | | [address];[place], [place] | | | | | | [address] | | | | + + + + + + + + | Specimen | + + | | + + + + + + + | Performing | Address | City/State/Zipcode | Phone Number | | Organization | | | | + + + + + | [facility] | [address] | [place] [address] | [phone] | + + + + + Clostridium [...] | | performed at [facility] | | | | | | [address];[place] | | | | | | [address] | | | | + + + + + + + + | Specimen | + + | | + + + + + + + | Performing | Address | City/State/Zipcode | Phone Number | | Organization | | | | + + + + + | [facility] | [address] | [place] [address] | [phone] | + + + + + POC [...] POC | performed at [facility];[address] | | LABORATORY | | | | [address];[place], [place] | | | | | | [address] | | | | + + + + + + + + | Specimen | + + | | + + + + + + + | Performing | Address | City/State/Zipcode | Phone Number | | Organization | | | | + + + + + | [facility] | [address] | [place] [address] | [phone] | + + + + + POC [...] POC | performed at [facility];[address] | | LABORATORY | | | | [address];[place], [place] | | | | | | [address] | | | | + + + + + + + + | Specimen | + + | | + + + + + + + | Performing | Address | City/State/Zipcode | Phone Number | | Organization | | | | + + + + + | [facility] | [address] | [place] [address] | [phone] | + + + + + Hepatic [...] [facility] | | | | performed at [facility], [address] | | LABORATORY | | | | [address], | | | | | | [place] [address] | | | | + + + + + + + + | Specimen | + + | Blood | + + + + + + + | Performing | Address | City/State/Zipcode | Phone Number | | Organization | | | | + + + + + | [facility] | [address] | [place] [address] | [phone] | + + + + + Protime [...] | | performed at [facility];[address] | | | | | | [address];[place] | | | | | | [address] | | | | + + + + + + + + | Specimen | + + | Blood | + + + + + + + | Performing | Address | City/State/Zipcode | Phone Number | | Organization | | | | + + + + + | [facility] | [address] | [place] [address] | [phone] | + + + + + Magnesium (02/25/2019 4:07 AM PST) + + + + + + | Component | Value | Ref Range | Performed | Pathologist | | | | | At | Signature | + + + + + + | Magnesium | 2.0Comment: Testing | 1.7 - 2.4 mg/dL | [facility] | | | | performed at [facility], [address] | | LABORATORY | | | | [address], | | | | | | [place] [address] | | | | + + + + + + + + | Specimen | + + | Blood | + + + + + + + | Performing | Address | City/State/Zipcode | Phone Number | | Organization | | | | + + + + + | [facility] | [address] | [place] [address] | [phone] | + + + + + CBC [...] [address], | | | | | | [place] [address] | | | | + + + + + + + + | Specimen | + + | Blood | + + + + + + + | Performing | Address | City/State/Zipcode | Phone Number | | Organization | | | | + + + + + | [facility] | [address] | [place] [address] | [phone] | + + + + + Basic [...] | LABORATORY | | | | 07[address] [id number] CMS | | | | | |CALDERON Abarca [address]RP 0733 [id number] CMS | | | | | | [...] | | | | | performed at [facility], [address] | | | | | | [facility], | | | | | | [place] [address] | | | | + + + + + + + + | Specimen | + + | Blood | + + + + + + + | Performing | Address | City/State/Zipcode | Phone Number | | Organization | | | | + + + + + | [facility] | [address] | [place] [address] | [phone] | + + + + + POC [...] POC | performed at [facility];[address] | | LABORATORY | | | | [address];[place], [place] | | | | | | [address] | | | | + + + + + + + + | Specimen | + + | | + + + + + + + | Performing | Address | City/State/Zipcode | Phone Number | | Organization | | | | + + + + + | [facility] | [address] | [place] [address] | [phone] | + + + + + POC [...] POC | performed at [facility];[address] | | LABORATORY | | | | [address];[place] | | | | | | [address] | | | | + + + + + + + + | Specimen | + + | | + + + + + + + | Performing | Address | City/State/Zipcode | Phone Number | | Organization | | | | + + + + + | [facility] | [address] | [place] [address] | [phone] | + + + + + POC [...] POC | performed at [facility];[address] | | LABORATORY | | | | [address];[place] | | | | | | [address] | | | | + + + + + + + + | Specimen | + + | | + + + + + + + | Performing | Address | City/State/Zipcode | Phone Number | | Organization | | | | + + + + + | [facility] | [address] | [place] [address] | [phone] | + + + + + POC [...] POC | performed at [facility];[address] | | LABORATORY | | | | [address];[place] | | | | | | [address] | | | | + + + + + + + + | Specimen | + + | | + + + + + + + | Performing | Address | City/State/Zipcode | Phone Number | | Organization | | | | + + + + + | [facility] | [address] | [place] [address] | [phone] | + + + + + Protime [...] | | performed at [facility];[address] | | | | | | [address];[place] | | | | | | [address] | | | | + + + + + + + + | Specimen | + + | Blood | + + + + + + + | Performing | Address | City/State/Zipcode | Phone Number | | Organization | | | | + + + + + | [facility] | [address] | [place] [address] | [phone] | + + + + + Magnesium (02/24/2019 4:22 AM PDT) + + + + + + | Component | Value | Ref Range | Performed | Pathologist | | | | | At | Signature | + + + + + + | Magnesium | 1.8Comment: Testing | 1.7 - 2.4 mg/dL | [facility] | | | | performed at [facility], [address] | | LABORATORY | | | | [facility], | | | | | | [place] [address] | | | | + + + + + + + + | Specimen | + + | Blood | + + + + + + + | Performing | Address | City/State/Zipcode | Phone Number | | Organization | | | | + + + + + | [facility] | [address] | [place] [address] | [phone] | + + + + + CBC [...] | | | Absolute | performed at [facility], [address] | K/uL | LABORATORY | | | | [address], | | | | | | [place] [address] | | | | + + + + + + + + | Specimen | + + | Blood | + + + + + + + | Performing | Address | City/State/Zipcode | Phone Number | | Organization | | | | + + + + + | [facility] | [address] | [place] [address] | [phone] | + + + + + Basic [...] | | | | | | MDRD IDAZ traceable | | | | | | equation.Testing | | | | | | performed at [facility], [address] | | | | | | [facility], | | | | | | [place] [address] | | | | + + + + + + + + | Specimen | + + | Blood | + + + + + + + | Performing | Address | City/State/Zipcode | Phone Number | | Organization | | | | + + + + + | [facility] | [address] | [place] [address] | [phone] | + + + + + PTT [...] | | | | [facility];[address];[place] [address] | | | | + + + + + + + + | Specimen | + + | Blood | + + + + + + + | Performing | Address | City/State/Zipcode | Phone Number | | Organization | | | | + + + + + | [facility] | [address] | [place] [address] | [phone] | + + + + + Potassium [...] | | performed at [facility];[address] | mmol/L | LABORATORY | | | | [address];[place] | | | | | | [address] | | | | + + + + + + + + | Specimen | + + | Blood | + + + + + + + | Performing | Address | City/State/Zipcode | Phone Number | | Organization | | | | + + + + + | [facility] | [address] | [place] [address] | [phone] | + + + + + POC [...] POC | performed at [facility];[address] | | LABORATORY | | | | [address];[place], [place] | | | | | | [address] | | | | + + + + + + + + | Specimen | + + | | + + + + + + + | Performing | Address | City/State/Zipcode | Phone Number | | Organization | | | | + + + + + | [facility] | [address] | [place] [address] | [phone] | + + + + + POC [...] POC | performed at [facility];[address] | | LABORATORY | | | | [address];[place] | | | | | | [address] | | | | + + + + + + + + | Specimen | + + | | + + + + + + + | Performing | Address | City/State/Zipcode | Phone Number | | Organization | | | | + + + + + | [facility] | [address] | [place] [address] | [phone] | + + + + + POC [...] POC | performed at [facility];[address] | | LABORATORY | | | | [address];[place] | | | | | | [address] | | | | + + + + + + + + | Specimen | + + | | + + + + + + + | Performing | Address | City/State/Zipcode | Phone Number | | Organization | | | | + + + + + | [facility] | [address] | [place] [address] | [phone] | + + + + + POC [...] POC | performed at [facility];[address] | | LABORATORY | | | | [address];[place], [place] | | | | | | [address] | | | | + + + + + + + + | Specimen | + + | | + + + + + + + | Performing | Address | City/State/Zipcode | Phone Number | | Organization | | | | + + + + + | [facility] | [address] | [place] [address] | [phone] | + + + + + PTT [...] | | performed at [facility];[address] | | LABORATORY | | | | [address];[place] | | | | | | [address] | | | | + + + + + + + + | Specimen | + + | | + + + + + + + | Performing | Address | City/State/Zipcode | Phone Number | | Organization | | | | + + + + + | [facility] | [address] | [place] [address] | [phone] | + + + + + Sandipime [...] | | performed at [facility] | | | | | | [facility];[place], [place] | | | | | | [address] | | | | + + + + + + + + | Specimen | + + | Blood | + + + + + + + | Performing | Address | City/State/Zipcode | Phone Number | | Organization | | | | + + + + + | [facility] | [address] | [place] [address] | [phone] | + + + + + Magnesium [...] | LABORATORY | | | | [address], | | | | | | [place] [address] | | | | + + + + + + + + | Specimen | + + | Blood | + + + + + + + | Performing | Address | City/State/Zipcode | Phone Number | | Organization | | | | + + + + + | [facility] | [address] | [place] [address] | [phone] | + + + + + CBC [...] | | | Absolute | performed at [facility], [address] | K/uL | LABORATORY | | | | [address], | | | | | | [place] [address] | | | | + + + + + + + + | Specimen | + + | Blood | + + + + + + + | Performing | Address | City/State/Zipcode | Phone Number | | Organization | | | | + + + + + | [facility] | [address] | [place] [address] | [phone] | + + + + + Basic [...] | | | | | performed at [facility], [address] | | | | | | [facility], | | | | | | [place] [address] | | | | + + + + + + + + | Specimen | + + | Blood | + + + + + + + | Performing | Address | City/State/Zipcode | Phone Number | | Organization | | | | + + + + + | [facility] | [address] | [place] [address] | [phone] | + + + + + PTT [...] | | performed at [facility];[address] | | LABORATORY | | | | [address];[place] | | | | | | [address] | | | | + + + + + + + + | Specimen | + + | Blood | + + + + + + + | Performing | Address | City/State/Zipcode | Phone Number | | Organization | | | | + + + + + | [facility] | [address] | [place] [address] | [phone] | + + + + + POC [...] POC | performed at [facility];[address] | | LABORATORY | | | | [address];[place] | | | | | | [address] | | | | + + + + + + + + | Specimen | + + | | + + + + + + + | Performing | Address | City/State/Zipcode | Phone Number | | Organization | | | | + + + + + | [facility] | [address] | [place] [address] | [phone] | + + + + + POC [...] POC | performed at [facility];[address] | | LABORATORY | | | | [address];[place], [place] | | | | | | [address] | | | | + + + + + + + + | Specimen | + + | | + + + + + + + | Performing | Address | City/State/Zipcode | Phone Number | | Organization | | | | + + + + + | [facility] | [address] | [place] [address] | [phone] | + + + + + PTT [...] | | performed at [facility];[address] | | LABORATORY | | | | [address];[place] | | | | | | [address] | | | | + + + + + + + + | Specimen | + + | Blood | + + + + + + + | Performing | Address | City/State/Zipcode | Phone Number | | Organization | | | | + + + + + | [facility] | [address] | [place] [address] | [phone] | + + + + + Potassium [...] | | performed at [facility];[address] | mmol/L | LABORATORY | | | | [address];[place] | | | | | | [address] | | | | + + + + + + + + | Specimen | + + | Blood | + + + + + + + | Performing | Address | City/State/Zipcode | Phone Number | | Organization | | | | + + + + + | [facility] | [address] | [place] [address] | [phone] | + + + + + POC [...] POC | performed at [facility];[address] | | LABORATORY | | | | [address];[place], [place] | | | | | | [address] | | | | + + + + + + + + | Specimen | + + | | + + + + + + + | Performing | Address | City/State/Zipcode | Phone Number | | Organization | | | | + + + + + | [facility] | [address] | [place] [address] | [phone] | + + + + + PTT (02/22/2019 10:19 AM PDT) + + + + + + | Component | Value | Ref Range | Performed | Pathologist | | | | | At | Signature | + + + + + + | PTT | 31Comment: Testing | 23 - 32 seconds | [facility] | | | | performed at [facility];[address] | | LABORATORY | | | | [address];[place] | | | | | | [address] | | | | + + + + + + + + | Specimen | + + | Blood | + + + + + + + | Performing | Address | City/State/Zipcode | Phone Number | | Organization | | | | + + + + + | [facility] | [address] | [place] [address] | [phone] | + + + + + POC [...] POC | performed at [facility];[address] | | LABORATORY | | | | [address];[place] | | | | | | [address] | | | | + + + + + + + + | Specimen | + + | | + + + + + + + | Performing | Address | City/State/Zipcode | Phone Number | | Organization | | | | + + + + + | [facility] | [address] | [place] [address] | [phone] | + + + + + Protime [...] | | performed at [facility];[address] | | | | | | [address];[place], [place] | | | | | | [address] | | | | + + + + + + + + | Specimen | + + | Blood | + + + + + + + | Performing | Address | City/State/Zipcode | Phone Number | | Organization | | | | + + + + + | [facility] | [address] | [place] [address] | [phone] | + + + + + Magnesium (02/22/2019 4:02 AM PDT) + + + + + + | Component | Value | Ref Range | Performed | Pathologist | | | | | At | Signature | + + + + + + | Magnesium | 1.8Comment: Testing | 1.7 - 2.4 mg/dL | [facility] | | | | performed at [facility], [address] | | LABORATORY | | | | [address], | | | | | | [place] [address] | | | | + + + + + + + + | Specimen | + + | Blood | + + + + + + + | Performing | Address | City/State/Zipcode | Phone Number | | Organization | | | | + + + + + | [facility] | [address] | [place] [address] | [phone] | + + + + + CBC [...] | | | | | | [place] [address] | | | | + + + + + + + + | Specimen | + + | Blood | + + + + + + + | Performing | Address | City/State/Zipcode | Phone Number | | Organization | | | | + + + + + | [facility] | [address] | [place] [address] | [phone] | + + + + + Basic [...] | | | | | performed at [facility], [address] | | | | | | [address], | | | | | | [place] [address] | | | | + + + + + + + + | Specimen | + + | Blood | + + + + + + + | Performing | Address | City/State/Zipcode | Phone Number | | Organization | | | | + + + + + | [facility] | [address] | [place] [address] | [phone] | + + + + + POC [...] POC | performed at [facility];[address] | | LABORATORY | | | | [address];[place] | | | | | | [address] | | | | + + + + + + + + | Specimen | + + | | + + + + + + + | Performing | Address | City/State/Zipcode | Phone Number | | Organization | | | | + + + + + | [facility] | [address] | [place] [address] | [phone] | + + + + + POC [...] POC | performed at [facility];[address] | | LABORATORY | | | | [address];[place] | | | | | | [address] | | | | + + + + + + + + | Specimen | + + | | + + + + + + + | Performing | Address | City/State/Zipcode | Phone Number | | Organization | | | | + + + + + | [facility] | [address] | [place] [address] | [phone] | + + + + + Protime [...] | | performed at [facility];[address] | | | | | | [facility];[place], [place] | | | | | | [address] | | | | + + + + + + + + | Specimen | + + | Blood | + + + + + + + | Performing | Address | City/State/Zipcode | Phone Number | | Organization | | | | + + + + + | [facility] | [address] [facility] | [place] [address] | [phone] | + + + + + POC [...] POC | performed at [facility];[address] | | LABORATORY | | | | [address];[place] | | | | | | [address] | | | | + + + + + + + + | Specimen | + + | | + + + + + + + | Performing | Address | City/State/Zipcode | Phone Number | | Organization | | | | + + + + + | [facility] | [address] | [place] [address] | [phone] | + + + + + ECHO [...] POC | performed at [facility];[address] | | LABORATORY | | | | [address];[place] | | | | | | [address] | | | | + + + + + + + + | Specimen | + + | | + + + + + + + | Performing | Address | City/State/Zipcode | Phone Number | | Organization | | | | + + + + + | [facility] | [address] | [place] [address] | [phone] | + + + + + POC [...] POC | performed at [facility];[address] | | LABORATORY | | | | [address];[place], [place] | | | | | | [address] | | | | + + + + + + + + | Specimen | + + | | + + + + + + + | Performing | Address | City/State/Zipcode | Phone Number | | Organization | | | | + + + + + | [facility] | [address] | [place] [address] | [phone] | + + + + + Magnesium [...] | | | | | [place] [address] | | | | + + + + + + + + | Specimen | + + | Blood | + + + + + + + | Performing | Address | City/State/Zipcode | Phone Number | | Organization | | | | + + + + + | [facility] | [address] | [place] [address] | [phone] | + + + + + Basic [...] | | | | | | MDRD IDAZ traceable | | | | | | equation.Testing | | | | | | performed at [facility], [address] | | | | | | [facility], | | | | | | [place] [address] | | | | + + + + + + + + | Specimen | + + | Blood | + + + + + + + | Performing | Address | City/State/Zipcode | Phone Number | | Organization | | | | + + + + + | [facility] | [address] | [place] [address] | [phone] | + + + + + CBC [...] | | | Absolute | performed at [facility], [address] | K/uL | LABORATORY | | | | [address], | | | | | | [place] [address] | | | | + + + + + + + + | Specimen | + + | Blood | + + + + + + + | Performing | Address | City/State/Zipcode | Phone Number | | Organization | | | | + + + + + | [facility] | [address] | [place] [address] | [phone] | + + + + + POC [...] POC | performed at [facility];[address] | | LABORATORY | | | | [address];[place] | | | | | | [address] | | | | + + + + + + + + | Specimen | + + | | + + + + + + + | Performing | Address | City/State/Zipcode | Phone Number | | Organization | | | | + + + + + | [facility] | [address] | [place] [address] | [phone] | + + + + + POC [...] POC | performed at [facility];[address] | | LABORATORY | | | | [address];[place] | | | | | | [address] | | | | + + + + + + + + | Specimen | + + | | + + + + + + + | Performing | Address | City/State/Zipcode | Phone Number | | Organization | | | | + + + + + | [facility] | [address] | [place] [address] | [phone] | + + + + + POC [...] POC | performed at [facility];[address] | | LABORATORY | | | | [address];[place] | | | | | | [address] | | | | + + + + + + + + | Specimen | + + | | + + + + + + + | Performing | Address | City/State/Zipcode | Phone Number | | Organization | | | | + + + + + | [facility] | [address] | [place] [address] | [phone] | + + + + + POC [...] POC | performed at [facility];[address] | | LABORATORY | | | | [address];[place] | | | | | | [address] | | | | + + + + + + + + | Specimen | + + | | + + + + + + + | Performing | Address | City/State/Zipcode | Phone Number | | Organization | | | | + + + + + | [facility] | [address] | [place] [address] | [phone] | + + + + + POC [...] POC | performed at [facility];[address] | | LABORATORY | | | | [address];[place], [place] | | | | | | [address] | | | | + + + + + + + + | Specimen | + + | | + + + + + + + | Performing | Address | City/State/Zipcode | Phone Number | | Organization | | | | + + + + + | [facility] | [address] | [place] [address] | [phone] | + + + + + XR [...] | | | | | | [place] [address] | | | | + + + + + + + + | Specimen | + + | Blood | + + + + + + + | Performing | Address | City/State/Zipcode | Phone Number | | Organization | | | | + + + + + | [facility] | [address] | [place] [address] | [phone] | + + + + + CBC [...] | | | Absolute | performed at [facility], [address] | K/uL | LABORATORY | | | | [address], | | | | | | [place] [address] | | | | + + + + + + + + | Specimen | + + | Blood | + + + + + + + | Performing | Address | City/State/Zipcode | Phone Number | | Organization | | | | + + + + + | [facility] | [address] | [place] [address] | [phone] | + + + + + Basic [...] | | | | | performed at [facility], [address] | | | | | | [address], | | | | | | [place] [address] | | | | + + + + + + + + | Specimen | + + | Blood | + + + + + + + | Performing | Address | City/State/Zipcode | Phone Number | | Organization | | | | + + + + + | [facility] | [address] | [place] [address] | [phone] | + + + + + POC [...] POC | performed at [facility];[address] | | LABORATORY | | | | [address];[place] | | | | | | [address] | | | | + + + + + + + + | Specimen | + + | | + + + + + + + | Performing | Address | City/State/Zipcode | Phone Number | | Organization | | | | + + + + + | [facility] | [address] | [place] [address] | [phone] | + + + + + POC [...] POC | performed at [facility];[address] | | LABORATORY | | | | [address];[place], [place] | | | | | | [address] | | | | + + + + + + + + | Specimen | + + | | + + + + + + + | Performing | Address | City/State/Zipcode | Phone Number | | Organization | | | | + + + + + | [facility] | [address] | [place] [address] | [phone] | + + + + + POC [...] POC | performed at [facility];[address] | | LABORATORY | | | | [address];[place] | | | | | | [address] | | | | + + + + + + + + | Specimen | + + | | + + + + + + + | Performing | Address | City/State/Zipcode | Phone Number | | Organization | | | | + + + + + | [facility] | [address] | [place] [address] | [phone] | + + + + + POC [...] POC | performed at [facility];[address] | | LABORATORY | | | | [address];[place] | | | | | | [address] | | | | + + + + + + + + | Specimen | + + | | + + + + + + + | Performing | Address | City/State/Zipcode | Phone Number | | Organization | | | | + + + + + | [facility] | [address] | [place] [address] | [phone] | + + + + + XR [...] [place], | | | | | | [place] [address] | | | | + + + + + + + + | Specimen | + + | Blood | + + + + + + + | Performing | Address | City/State/Zipcode | Phone Number | | Organization | | | | + + + + + | [facility] | [address] | [place] [address] | [phone] | + + + + + CBC [...] | | | | | | [place] [address] | | | | + + + + + + + + | Specimen | + + | Blood | + + + + + + + | Performing | Address | City/State/Zipcode | Phone Number | | Organization | | | | + + + + + | [facility] | [address] | [place] [address] | [phone] | + + + + + Basic [...] | | | | | performed at [facility], [address] | | | | | | [facility], | | | | | | [place] [address] | | | | + + + + + + + + | Specimen | + + | Blood | + + + + + + + | Performing | Address | City/State/Zipcode | Phone Number | | Organization | | | | + + + + + | [facility] | [address] | [place] [address] | [phone] | + + + + + POC [...] POC | performed at [facility];[address] | | LABORATORY | | | | [address];[place] | | | | | | [address] | | | | + + + + + + + + | Specimen | + + | | + + + + + + + | Performing | Address | City/State/Zipcode | Phone Number | | Organization | | | | + + + + + | [facility] | [address] | [place] [address] | [phone] | + + + + + POC [...] POC | performed at [facility];[address] | | LABORATORY | | | | [address];[place] | | | | | | [address] | | | | + + + + + + + + | Specimen | + + | | + + + + + + + | Performing | Address | City/State/Zipcode | Phone Number | | Organization | | | | + + + + + | [facility] | [address] | [place] [address] | [phone] | + + + + + POC [...] POC | performed at [facility];[address] | | LABORATORY | | | | [address];[place], [place] | | | | | | [address] | | | | + + + + + + + + | Specimen | + + | | + + + + + + + | Performing | Address | City/State/Zipcode | Phone Number | | Organization | | | | + + + + + | [facility] | [address] | [place] [address] | [phone] | + + + + + POC [...] POC | performed at [facility];[address] | | LABORATORY | | | | [address];[place], [place] | | | | | | [address] | | | | + + + + + + + + | Specimen | + + | | + + + + + + + | Performing | Address | City/State/Zipcode | Phone Number | | Organization | | | | + + + + + | [facility] | [address] | [place] [address] | [phone] | + + + + + XR [...] Huang, | | | | | | [place] [address] | | | | + + + + + + + + | Specimen | + + | Blood | + + + + + + + | Performing | Address | City/State/Zipcode | Phone Number | | Organization | | | | + + + + + | [facility] | [address] | [place] [address] | [phone] | + + + + + CBC [...] | | | Absolute | performed at [facility], [address] | K/uL | LABORATORY | | | | [address], | | | | | | [place] [address] | | | | + + + + + + + + | Specimen | + + | Blood | + + + + + + + | Performing | Address | City/State/Zipcode | Phone Number | | Organization | | | | + + + + + | [facility] | [address] | [place] [address] | [phone] | + + + + + Basic [...] | | | | | performed at [facility], [address] | | | | | | [facility], | | | | | | [place], [place] [address] | | | | + + + + + + + + | Specimen | + + | Blood | + + + + + + + | Performing | Address | City/State/Zipcode | Phone Number | | Organization | | | | + + + + + | [facility] | [address] | [place] [address] | [phone] | + + + + + POC [...] POC | performed at [facility];[address] | | LABORATORY | | | | [address];[place] | | | | | | [address] | | | | + + + + + + + + | Specimen | + + | | + + + + + + + | Performing | Address | City/State/Zipcode | Phone Number | | Organization | | | | + + + + + | [facility] | [address] | [place] [address] | [phone] | + + + + + POC [...] POC | performed at [facility];[address] | | LABORATORY | | | | [address];[place], [place] | | | | | | [address] | | | | + + + + + + + + | Specimen | + + | | + + + + + + + | Performing | Address | City/State/Zipcode | Phone Number | | Organization | | | | + + + + + | [facility] | [address] | [place] [address] | [phone] | + + + + + POC [...] POC | performed at [facility];[address] | | LABORATORY | | | | [address];[place] | | | | | | [address] | | | | + + + + + + + + | Specimen | + + | | + + + + + + + | Performing | Address | City/State/Zipcode | Phone Number | | Organization | | | | + + + + + | [facility] | [address] | [place] [address] | [phone] | + + + + + POC [...] POC | performed at [facility];[address] | | LABORATORY | | | | [address];[place] | | | | | | [address] | | | | + + + + + + + + | Specimen | + + | | + + + + + + + | Performing | Address | City/State/Zipcode | Phone Number | | Organization | | | | + + + + + | [facility] | [address] | [place] [address] | [phone] | + + + + + Magnesium (02/17/2019 4:44 AM PDT) + + + + + + | Component | Value | Ref Range | Performed | Pathologist | | | | | At | Signature | + + + + + + | Magnesium | 2.8 (H)Comment: Testing | 1.7 - 2.4 mg/dL | [facility] | | | | performed at [facility], [address] | | LABORATORY | | | | [address], | | | | | | [place] [address] | | | | + + + + + + + + | Specimen | + + | Blood | + + + + + + + | Performing | Address | City/State/Zipcode | Phone Number | | Organization | | | | + + + + + | [facility] | [address] | [place] [address] | [phone] | + + + + + CBC [...] | | | Absolute | performed at [facility], [address] | K/uL | LABORATORY | | | | [address], | | | | | | [place] [address] | | | | + + + + + + + + | Specimen | + + | Blood | + + + + + + + | Performing | Address | City/State/Zipcode | Phone Number | | Organization | | | | + + + + + | [facility] | [address] | [place] [address] | [phone] | + + + + + Basic [...] | | | | | | MDRD IDAZ traceable | | | | | | equation.Testing | | | | | | performed at [facility], [address] | | | | | | [facility], | | | | | | [place] [address] | | | | + + + + + + + + | Specimen | + + | Blood | + + + + + + + | Performing | Address | City/State/Zipcode | Phone Number | | Organization | | | | + + + + + | [facility] | [address] | [place] [address] | [phone] | + + + + + XR [...] POC | performed at [facility];[address] | | LABORATORY | | | | [address];[place] | | | | | | [address] | | | | + + + + + + + + | Specimen | + + | | + + + + + + + | Performing | Address | City/State/Zipcode | Phone Number | | Organization | | | | + + + + + | [facility] | [address] | [place] [address] | [phone] | + + + + + POC [...] POC | performed at [facility];[address] | | LABORATORY | | | | [address];[place] | | | | | | [address] | | | | + + + + + + + + | Specimen | + + | | + + + + + + + | Performing | Address | City/State/Zipcode | Phone Number | | Organization | | | | + + + + + | [facility] | [address] | [place] [address] | [phone] | + + + + + POC [...] POC | performed at [facility];[address] | | LABORATORY | | | | [address];[place], [place] | | | | | | [address] | | | | + + + + + + + + | Specimen | + + | | + + + + + + + | Performing | Address | City/State/Zipcode | Phone Number | | Organization | | | | + + + + + | [facility] | [address] | [place] [address] | [phone] | + + + + + Potassium [...] | | performed at [facility];[address] | mmol/L | LABORATORY | | | | [address];[place], [place] | | | | | | [address] | | | | + + + + + + + + | Specimen | + + | Blood | + + + + + + + | Performing | Address | City/State/Zipcode | Phone Number | | Organization | | | | + + + + + | [facility] | [address] | [place] [address] | [phone] | + + + + + POC [...] POC | performed at [facility];[address] | | LABORATORY | | | | [address];[place] | | | | | | [address] | | | | + + + + + + + + | Specimen | + + | | + + + + + + + | Performing | Address | City/State/Zipcode | Phone Number | | Organization | | | | + + + + + | [facility] | [address] | [place] [address] | [phone] | + + + + + POC [...] POC | performed at [facility];[address] | | LABORATORY | | | | [address];[place], [place] | | | | | | [address] | | | | + + + + + + + + | Specimen | + + | | + + + + + + + | Performing | Address | City/State/Zipcode | Phone Number | | Organization | | | | + + + + + | [facility] | [address] | [place] [address] | [phone] | + + + + + POC [...] POC | performed at [facility];[address] | | LABORATORY | | | | [address];[place], [place] | | | | | | [address] | | | | + + + + + + + + | Specimen | + + | | + + + + + + + | Performing | Address | City/State/Zipcode | Phone Number | | Organization | | | | + + + + + | [facility] | [address] | [place] [address] | [phone] | + + + + + POC [...] POC | performed at [facility];[address] | | LABORATORY | | | | [address];[place] | | | | | | [address] | | | | + + + + + + + + | Specimen | + + | | + + + + + + + | Performing | Address | City/State/Zipcode | Phone Number | | Organization | | | | + + + + + | [facility] | [address] | [place] [address] | [phone] | + + + + + POC [...] POC | performed at [facility];[address] | | LABORATORY | | | | [address];[place], [place] | | | | | | [address] | | | | + + + + + + + + | Specimen | + + | | + + + + + + + | Performing | Address | City/State/Zipcode | Phone Number | | Organization | | | | + + + + + | [facility] | [address] | [place] [address] | [phone] | + + + + + XR [...] [facility] | | | | performed at [facility];[address] | | LABORATORY | | | | [address];[place] | | | | | | [address] | | | | + + + + + + + + | Specimen | + + | Blood | + + + + + + + | Performing | Address | City/State/Zipcode | Phone Number | | Organization | | | | + + + + + | [facility] | [address] | [place] [address] | [phone] | + + + + + CBC [...] | | | | | | [place] [address] | | | | + + + + + + + + | Specimen | + + | Blood | + + + + + + + | Performing | Address | City/State/Zipcode | Phone Number | | Organization | | | | + + + + + | [facility] | [address] | [place] [address] | [phone] | + + + + + Basic [...] | | performed at [facility] | | | | | | [facility];[place], [place] | | | | | | [address] | | | | + + + + + + + + | Specimen | + + | Blood | + + + + + + + | Performing | Address | City/State/Zipcode | Phone Number | | Organization | | | | + + + + + | [facility] | [address] | [place] [address] | [phone] | + + + + + POC [...] POC | performed at [facility];[address] | | LABORATORY | | | | [address];[place] | | | | | | [address] | | | | + + + + + + + + | Specimen | + + | | + + + + + + + | Performing | Address | City/State/Zipcode | Phone Number | | Organization | | | | + + + + + | [facility] | [address] | [place] [address] | [phone] | + + + + + POC [...] POC | performed at [facility];[address] | | LABORATORY | | | | [address];[place] | | | | | | [address] | | | | + + + + + + + + | Specimen | + + | | + + + + + + + | Performing | Address | City/State/Zipcode | Phone Number | | Organization | | | | + + + + + | [facility] | [address] | [place] [address] | [phone] | + + + + + POC [...] POC | performed at [facility];[address] | | LABORATORY | | | | [address];[place] | | | | | | [address] | | | | + + + + + + + + | Specimen | + + | | + + + + + + + | Performing | Address | City/State/Zipcode | Phone Number | | Organization | | | | + + + + + | [facility] | [address] | [place] [address] | [phone] | + + + + + Potassium (02/15/2019 11:39 PM PDT) + + + + + + | Component | Value | Ref Range | Performed | Pathologist | | | | | At | Signature | + + + + + + | K | 4.6Comment: Testing | 3.5 - 4.9 | [facility] | | | | performed at [facility];888 | mmol/L | LABORATORY | | | | [address];[place] | | | | | | [address] | | | | + + + + + + + + | Specimen | + + | Blood | + + + + + + + | Performing | Address | City/State/Zipcode | Phone Number | | Organization | | | | + + + + + | [facility] | [address] | [place] [address] | [phone] | + + + + + Blood [...] Arterial, | performed at [facility];[address] | | LABORATORY | | | POC | [address];[place], [place] | | | | | | [address] | | | | + + + + + + + + | Specimen | + + | | + + + + + + + | Performing | Address | City/State/Zipcode | Phone Number | | Organization | | | | + + + + + | [facility] | [address] | [place] [address] | [phone] | + + + + + POC [...] POC | performed at [facility];[address] | | LABORATORY | | | | [address];[place] | | | | | | [address] | | | | + + + + + + + + | Specimen | + + | | + + + + + + + | Performing | Address | City/State/Zipcode | Phone Number | | Organization | | | | + + + + + | [facility] | [address] | [place] [address] | [phone] | + + + + + POC [...] POC | performed at [facility];[address] | | LABORATORY | | | | [address];[place] | | | | | | [address] | | | | + + + + + + + + | Specimen | + + | | + + + + + + + | Performing | Address | City/State/Zipcode | Phone Number | | Organization | | | | + + + + + | [facility] | [address] | [place] [address] | [phone] | + + + + + POC [...] POC | performed at [facility];[address] | | LABORATORY | | | | [address];[place], [place] | | | | | | [address] | | | | + + + + + + + + | Specimen | + + | | + + + + + + + | Performing | Address | City/State/Zipcode | Phone Number | | Organization | | | | + + + + + | [facility] | [address] | [place] [address] | [phone] | + + + + + POC [...] | | performed at [facility] | | | | | | [address];[place], [place] | | | | | | [address] | | | | + + + + + + + + | Specimen | + + | | + + + + + + + | Performing | Address | City/State/Zipcode | Phone Number | | Organization | | | | + + + + + | [facility] | [address] | [place] [address] | [phone] | + + + + + Blood [...] Arterial, | performed at [facility];[address] | | LABORATORY | | | POC | [address];[place], [place] | | | | | | [address] | | | | + + + + + + + + | Specimen | + + | | + + + + + + + | Performing | Address | City/State/Zipcode | Phone Number | | Organization | | | | + + + + + | [facility] | [address] | [place] [address] | [phone] | + + + + + Potassium [...] | | performed at [facility];[address] | mmol/L | LABORATORY | | | | [address];[place] | | | | | | [address] | | | | + + + + + + + + | Specimen | + + | Blood | + + + + + + + | Performing | Address | City/State/Zipcode | Phone Number | | Organization | | | | + + + + + | [facility] | [address] | [place] [address] | [phone] | + + + + + POC [...] POC | performed at [facility];888 | | LABORATORY | | | | [address];[place] | | | | | | [address] | | | | + + + + + + + + | Specimen | + + | | + + + + + + + | Performing | Address | City/State/Zipcode | Phone Number | | Organization | | | | + + + + + | [facility] | [address] | [place] [address] | [phone] | + + + + + Blood [...] Arterial, | performed at [facility];888 | | LABORATORY | | | POC | [address];[place] | | | | | | [address] | | | | + + + + + + + + | Specimen | + + | | + + + + + + + | Performing | Address | City/State/Zipcode | Phone Number | | Organization | | | | + + + + + | [facility] | [address] | [place] [address] | [phone] | + + + + + Blood [...] Arterial, | performed at [facility];888 | | LABORATORY | | | POC | [address];[place], [place] | | | | | | [address] | | | | + + + + + + + + | Specimen | + + | | + + + + + + + | Performing | Address | City/State/Zipcode | Phone Number | | Organization | | | | + + + + + | [facility] | [address] | [place] [address] | [phone] | + + + + + POC [...] POC | performed at [facility];[address] | | LABORATORY | | | | [address];[place], [place] | | | | | | [address] | | | | + + + + + + + + | Specimen | + + | | + + + + + + + | Performing | Address | City/State/Zipcode | Phone Number | | Organization | | | | + + + + + | [facility] | [address] | [place] [address] | [phone] | + + + + + Blood [...] Arterial, | performed at [facility];888 | | LABORATORY | | | POC | [address];[place] | | | | | | [address] | | | | + + + + + + + + | Specimen | + + | | + + + + + + + | Performing | Address | City/State/Zipcode | Phone Number | | Organization | | | | + + + + + | [facility] | [address] | [place] [address] | [phone] | + + + + + Potassium [...] | | performed at [facility];888 | mmol/L | LABORATORY | | | | [address];[place] | | | | | | [address] | | | | + + + + + + + + | Specimen | + + | Blood | + + + + + + + | Performing | Address | City/State/Zipcode | Phone Number | | Organization | | | | + + + + + | [facility] | [address] | [place] [address] | [phone] | + + + + + POC [...] POC | performed at [facility];888 | | LABORATORY | | | | [address];[place], [place] | | | | | | [address] | | | | + + + + + + + + | Specimen | + + | | + + + + + + + | Performing | Address | City/State/Zipcode | Phone Number | | Organization | | | | + + + + + | [facility] | [address] | [place] [address] | [phone] | + + + + + Blood [...] Arterial, | performed at [facility];888 | | LABORATORY | | | POC | [address];[place], [place] | | | | | | [address] | | | | + + + + + + + + | Specimen | + + | | + + + + + + + | Performing | Address | City/State/Zipcode | Phone Number | | Organization | | | | + + + + + | [facility] | [address] | [place] [address] | [phone] | + + + + + POC [...] POC | performed at [facility];888 | | LABORATORY | | | | [address];[place] | | | | | | [address] | | | | + + + + + + + + | Specimen | + + | | + + + + + + + | Performing | Address | City/State/Zipcode | Phone Number | | Organization | | | | + + + + + | [facility] | [address] | [place] [address] | [phone] | + + + + + Calcium, [...] | | performed at [facility];[address] | | LABORATORY | | | | [address];[place], [place] | | | | | | [address] | | | | + + + + + + + + | Specimen | + + | Blood | + + + + + + + | Performing | Address | City/State/Zipcode | Phone Number | | Organization | | | | + + + + + | [facility] | [address] | [place] [address] | [phone] | + + + + + PTT [...] | | performed at [facility];888 | | LABORATORY | | | | [address];[place] | | | | | | [address] | | | | + + + + + + + + | Specimen | + + | Blood | + + + + + + + | Performing | Address | City/State/Zipcode | Phone Number | | Organization | | | | + + + + + | [facility] | [address] | [place] [address] | [phone] | + + + + + Protime [...] | | performed at [facility];888 | | | | | | [facility];[place] | | | | | | [address] | | | | + + + + + + + + | Specimen | + + | Blood | + + + + + + + | Performing | Address | City/State/Zipcode | Phone Number | | Organization | | | | + + + + + | [facility] | [address] | [place] [address] | [phone] | + + + + + Magnesium [...] | | performed at [facility];888 | | LABORATORY | | | | [address];[place] | | | | | | [address] | | | | + + + + + + + + | Specimen | + + | Blood | + + + + + + + | Performing | Address | City/State/Zipcode | Phone Number | | Organization | | | | + + + + + | [facility] | [address] | [place] [address] | [phone] | + + + + + Hemoglobin [...] | | | | | performed at [facility], [address] | | | | | | [address], | | | | | | [place] [address] | | | | + + + + + + + + | Specimen | + + | Blood | + + + + + + + | Performing | Address | City/State/Zipcode | Phone Number | | Organization | | | | + + + + + | [facility] | [address] | [place] [address] | [phone] | + + + + + Fibrinogen [...] | | performed at [facility] | | LABORATORY | | | | [address] [facility];[place], [place] | | | | | | [address] | | | | + + + + + + + + | Specimen | + + | Blood | + + + + + + + | Performing | Address | City/State/Zipcode | Phone Number | | Organization | | | | + + + + + | [facility] | [address] | [place] [address] | [phone] | + + + + + CBC [...] | | performed at [facility] | | | | | | [address];[place] | | | | | | [address] | | | | + + + + + + + + | Specimen | + + | Blood | + + + + + + + | Performing | Address | City/State/Zipcode | Phone Number | | Organization | | | | + + + + + | [facility] | [address] | [place] [address] | [phone] | + + + + + Basic [...] | | performed at [facility];888 | | | | | | [facility];[place], [place] | | | | | | [address] | | | | + + + + + + + + | Specimen | + + | Blood | + + + + + + + | Performing | Address | City/State/Zipcode | Phone Number | | Organization | | | | + + + + + | [facility] | [address] | [place] [address] | [phone] | + + + + + POC [...] POC | performed at [facility];888 | g/dL | LABORATORY | | | | [address];[place] | | | | | | [address] | | | | + + + + + + + + | Specimen | + + | | + + + + + + + | Performing | Address | City/State/Zipcode | Phone Number | | Organization | | | | + + + + + | [facility] | [address] | [place] [address] | [phone] | + + + + + XR [...] | projects 4.1 cm above the fransico. [place] catheter tip appears to | | | [...] 4.1 cm | | above the fransico. [place] catheter tip appears to project at the [...] Arterial, | performed at [facility];888 | | LABORATORY | | | POC | [address];[place] | | | | | | [address] | | | | + + + + + + + + | Specimen | + + | | + + + + + + + | Performing | Address | City/State/Zipcode | Phone Number | | Organization | | | | + + + + + | [facility] | [address] | [place] [address] | [phone] | + + + + + POC [...] POC | performed at [facility];888 | | LABORATORY | | | | [address];[place], [place] | | | | | | [address] | | | | + + + + + + + + | Specimen | + + | | + + + + + + + | Performing | Address | City/State/Zipcode | Phone Number | | Organization | | | | + + + + + | [facility] | [address] | [place] [address] | [phone] | + + + + + ECG [...] Arterial, | performed at [facility];888 | | LABORATORY | | | POC | [address];[place], [place] | | | | | | [address] | | | | + + + + + + + + | Specimen | + + | | + + + + + + + | Performing | Address | City/State/Zipcode | Phone Number | | Organization | | | | + + + + + | [facility] | [address] | [place] [address] | [phone] | + + + + + POC [...] POC | performed at [facility];888 | g/dL | LABORATORY | | | | [address];[place] | | | | | | [address] | | | | + + + + + + + + | Specimen | + + | | + + + + + + + | Performing | Address | City/State/Zipcode | Phone Number | | Organization | | | | + + + + + | [facility] | [address] | [place] [address] | [phone] | + + + + + POC [...] Arterial, | performed at [facility];888 | | LABORATORY | | | POC | [address];[place] | | | | | | [address] | | | | + + + + + + + + | Specimen | + + | | + + + + + + + | Performing | Address | City/State/Zipcode | Phone Number | | Organization | | | | + + + + + | [facility] | [address] | [place] [address] | [phone] | + + + + + POC [...] POC | performed at [facility];888 | g/dL | LABORATORY | | | | [address];[place], [place] | | | | | | [address] | | | | + + + + + + + + | Specimen | + + | | + + + + + + + | Performing | Address | City/State/Zipcode | Phone Number | | Organization | | | | + + + + + | [facility] | [address] | [place] [address] | [phone] | + + + + + FAM [...] POC | performed at [facility];888 | g/dL | LABORATORY | | | | [address];[place], [place] | | | | | | [address] | | | | + + + + + + + + | Specimen | + + | | + + + + + + + | Performing | Address | City/State/Zipcode | Phone Number | | Organization | | | | + + + + + | [facility] | [address] | [place] [address] | [phone] | + + + + + POC [...] Arterial, | performed at [facility];888 | | LABORATORY | | | POC | [address];[place] | | | | | | [address] | | | | + + + + + + + + | Specimen | + + | | + + + + + + + | Performing | Address | City/State/Zipcode | Phone Number | | Organization | | | | + + + + + | [facility] | [address] | [place] [address] | [phone] | + + + + + POC [...] POC | performed at [facility];888 | g/dL | LABORATORY | | | | [address];[place] | | | | | | [address] | | | | + + + + + + + + | Specimen | + + | | + + + + + + + | Performing | Address | City/State/Zipcode | Phone Number | | Organization | | | | + + + + + | [facility] | [address] | [place] [address] | [phone] | + + + + + POC [...] POC | performed at [facility];888 | g/dL | LABORATORY | | | | [address];[place] | | | | | | [address] | | | | + + + + + + + + | Specimen | + + | | + + + + + + + | Performing | Address | City/State/Zipcode | Phone Number | | Organization | | | | + + + + + | [facility] | [address] | [place] [address] | [phone] | + + + + + FAM [...] POC | performed at [facility];888 | g/dL | LABORATORY | | | | [address];[place], [place] | | | | | | [address] | | | | + + + + + + + + | Specimen | + + | | + + + + + + + | Performing | Address | City/State/Zipcode | Phone Number | | Organization | | | | + + + + + | [facility] | [address] [facility] | [place] [address] | [phone] | + + + + + POC [...] POC | performed at [facility];888 | g/dL | LABORATORY | | | | [address];[place], [place] | | | | | | [address] | | | | + + + + + + + + | Specimen | + + | | + + + + + + + | Performing | Address | City/State/Zipcode | Phone Number | | Organization | | | | + + + + + | [facility] | [address] | [place] [address] | [phone] | + + + + + POC [...] POC | performed at [facility];888 | g/dL | LABORATORY | | | | [address];[place], [place] | | | | | | [address] | | | | + + + + + + + + | Specimen | + + | | + + + + + + + | Performing | Address | City/State/Zipcode | Phone Number | | Organization | | | | + + + + + | [facility] | [address] | [place] [address] | [phone] | + + + + + POC [...] Arterial, | performed at [facility];888 | | LABORATORY | | | POC | [address];[place] | | | | | | [address] | | | | + + + + + + + + | Specimen | + + | | + + + + + + + | Performing | Address | City/State/Zipcode | Phone Number | | Organization | | | | + + + + + | [facility] | [address] | [place] [address] | [phone] | + + + + + POC [...] POC | performed at [facility];888 | g/dL | LABORATORY | | | | [address];[place], [place] | | | | | | [address] | | | | + + + + + + + + | Specimen | + + | | + + + + + + + | Performing | Address | City/State/Zipcode | Phone Number | | Organization | | | | + + + + + | [facility] | [address] | [place] [address] | [phone] | + + + + + ECHO [...] | | Name BOB MANCINI Room Number 18373 | | | Patient Number [id number] Date of Study | | | 02/15/2019 Visit Number [id number] Referring | | | Physician LUISANA ALCALA Accession Number [id number] | | | Policy Director Date of 1965 Interpreting | | | Physician Ed Elmore Age 53 year(s) | | | Nurse Gender Male Stress | | | Metrology Specialist Procedure Type of Study SHALA procedure:TRANSESOPHAGEAL(SHALA) | [...] Mild | | | MR. Mild AI. Klza-al-yeoxgikr TR. Mild PI. Aprtmhyk-dr-ptymyd PAH. | | | Bilateral pleural effusions [...] = 54mmHg | | | (consistent with ozudiiwf-zx-kcvhij pulmonary arterial | | | hypertension--reading was consistent with direct PASP measurement via | | | [place] catheter). Pulmonic Valve Peak Velocity: 51.33 cm/s [...] = 54mmHg | | | (consistent with yryomxfg-kw-tmktnr pulmonary arterial | | | hypertension--reading was consistent with direct PASP measurement via | | | [place] catheter). | | | | | | [...] Demographics Patient Name BOB MANCINI Room Number [id number] | | Patient Number [id number] Date of Study 02/15/2019 Visit Number | | [id number] Referring Physician LUISANA ALCALA Accession Number [id number] | | Policy Director Date of 1965 Interpreting Physician Ed Elmore | | Age 53 year(s) Nurse Gender Male Stress | | TechnicianProcedureType of Study SHALA procedure:TRANSESOPHAGEAL(SHALA) - | | PERIOPERATIVE.Procedure DateDate: 02/15/2019 Start: 07:41 [facility] | | Quality: Adequate visualizationPatient Status: RoutineHeight: 70.87 inches Weight: | | 208.12 pounds BSA: 2.14 m^2 BMI: 29.14 kg/m^2Rhythm: Normal Sinus Rhythm HR: 75 bpm BP: | | 110/70 mmHg Conclusions Summary Severely depressed baseline LV global systolic function | | with multiple RWMAs as documented below. LVEF = 25-30%. Mild MR. Mild AI. | | Mlox-fp-btefqjtp TR. Mild PI. Dazoawuj-jg-grlahh PAH. Bilateral pleural effusions | | (drained [...] tricuspid regurgitation. RVSP = 54mmHg (consistent with magmwpcn-la-wzphnp | | pulmonary arterial hypertension--reading was consistent with direct PASP measurement | | via [place] catheter). Pulmonic Valve Peak Velocity: 51.33 cm/s [...] RVSP = 54mmHg | | (consistent with esagegzn-ye-yzgtwy pulmonary arterial | | hypertension--reading was consistent with direct PASP measurement via | | [place] catheter). | | | | Pulmonic Valve [...] POC | performed at [facility];[address] | | LABORATORY | | | | [address];[place], [place] | | | | | | [address] | | | | + + + + + + + + | Specimen | + + | | + + + + + + + | Performing | Address | City/State/Zipcode | Phone Number | | Organization | | | | + + + + + | [facility] | [address] | [place] [address] | [phone] | + + + + + PTT (02/15/2019 5:49 AM PDT) + + + + + + | Component | Value | Ref Range | Performed | Pathologist | | | | | At | Signature | + + + + + + | PTT | 64 (H)Comment: Testing | 23 - 32 seconds | MARISEL | | | | performed at [facility];[address] | | LABORATORY | | | | [address];[place], [place] | | | | | | [address] | | | | + + + + + + + + | Specimen | + + | | + + + + + + + | Performing | Address | City/State/Zipcode | Phone Number | | Organization | | | | + + + + + | [facility] | [address] | [place] [address] | [phone] | + + + + + Protime [...] | | performed at [facility];888 | | | | | | [address];[place], [place] | | | | | | [address] | | | | + + + + + + + + | Specimen | + + | | + + + + + + + | Performing | Address | City/State/Zipcode | Phone Number | | Organization | | | | + + + + + | [facility] | [address] | [place] [address] | [phone] | + + + + + CBC [...] [facility] | | | | performed at [facility], [address] | | LABORATORY | | | | [address], | | | | | | [place] [address] | | | | + + + + + + + + | Specimen | + + | | + + + + + + + | Performing | Address | City/State/Zipcode | Phone Number | | Organization | | | | + + + + + | [facility] | [address] | [place] [address] | [phone] | + + + + + Renal [...] | | | | | performed at [facility], [address] | | | | | | [facility], | | | | | | [place] [address] | | | | + + + + + + + + | Specimen | + + | Blood | + + + + + + + | Performing | Address | City/State/Zipcode | Phone Number | | Organization | | | | + + + + + | [facility] | [address] | [place] [address] | [phone] | + + + + + Red [...] | [facility] | | | COMMENT | [facility];[address] | | LABORATORY | | | | [address];[place] [address] | | | | + + + + + + + + | Specimen | + + | | + + + + + + + | Performing | Address | City/State/Zipcode | Phone Number | | Organization | | | | + + + + + | [facility] | [address] | [place] [address] | [phone] | + + + + + Type [...] + + + | UNIT # | [id number] | | [facility] | | | | [...] + + + | UNIT # | [id number] | | [facility] | | | | [...] + + + | UNIT # | [id number] | | [facility] | | | | [...] RESULT | performed at [facility];[address] | | LABORATORY | | | | [address];[place], [place] | | | | | | [address] | | | | + + + + + + | UNIT # | [id number] | | [facility] | | | | [...] | [address] | [place] [address] | [phone] | + + + + + PTT [...] | | performed at [facility];888 | | LABORATORY | | | | [address];[place] | | | | | | [address] | | | | + + + + + + + + | Specimen | + + | Blood | + + + + + + + | Performing | Address | City/State/Zipcode | Phone Number | | Organization | | | | + + + + + | [facility] | [address] | [place] [address] | [phone] | + + + + + Troponin [...] | | performed at [facility];[address] | | | | | | [address] [facility];[place], [place] | | | | | | [address] | | | | + + + + + + + + | Specimen | + + | Blood | + + + + + + + | Performing | Address | City/State/Zipcode | Phone Number | | Organization | | | | + + + + + | [facility] | [address] | [place] [address] | [phone] | + + + + + XR [...] | | performed at [facility];[address] | | LABORATORY | | | | [address];[place], [place] | | | | | | [address] | | | | + + + [...] HOSPITAL LAB[facility]ORY | [address] | [place] [address] | [phone] | + + + + + POC [...] POC | performed at [facility];[address] | | LABORATORY | | | | [address];[place], [place] | | | | | | [address] | | | | + + + + + + + + | Specimen | + + | | + + + + + + + | Performing | Address | City/State/Zipcode | Phone Number | | Organization | | | | + + + + + | [facility] | [address] | [place] [address] | [phone] | + + + + + POC [...] POC | performed at [facility];[address] | | LABORATORY | | | | [address];[place] | | | | | | [address] | | | | + + + + + + + + | Specimen | + + | | + + + + + + + | Performing | Address | City/State/Zipcode | Phone Number | | Organization | | | | + + + + + | [facility] | [address] | [place] [address] | [phone] | + + + + + ECG [...] MD | | | | | | (359) on 02/14/2019 | | | | | [...] | | performed at [facility];[address] | | LABORATORY | | | | [address];[place] | | | | | | [address] | | | | + + + + + + + + | Specimen | + + | Blood | + + + + + + + | Performing | Address | City/State/Zipcode | Phone Number | | Organization | | | | + + + + + | [facility] | [address] | [place] [address] | [phone] | + + + + + Troponin [...] BENÍTEZ | | | | | | [id number] AT 1523 BY Rima. | | | | | | Testing performed at | | | | | | [facility];[address] [facility] | | | | | | [facility];[place] [address] | | | | + + + + + + + + | Specimen | + + | Blood | + + + + + + + | Performing | Address | City/State/Zipcode | Phone Number | | Organization | | | | + + + + + | [facility] | [address] | [place] [address] | [phone] | + + + + + POC [...] POC | performed at [facility];888 | | LABORATORY | | | | [address];[place] | | | | | | [address] | | | | + + + + + + + + | Specimen | + + | | + + + + + + + | Performing | Address | City/State/Zipcode | Phone Number | | Organization | | | | + + + + + | [facility] | [address] | [place] [address] | [phone] | + + + + + POC [...] POC | performed at [facility];[address] | | LABORATORY | | | | [address];[place], [place] | | | | | | [address] | | | | + + + + + + + + | Specimen | + + | | + + + + + + + | Performing | Address | City/State/Zipcode | Phone Number | | Organization | | | | + + + + + | [facility] | [address] | [place] [address] | [phone] | + + + + + Troponin [...] | | | | BY:CARLA Baxter ON [id number] | | | | | | AT 0758 BY S. Testing | | | | | | performed at [facility] | | | | | | [facility];[place], [place] | | | | | | [address] | | | | + + + + + + + + | Specimen | + + | Blood | + + + + + + + | Performing | Address | City/State/Zipcode | Phone Number | | Organization | | | | + + + + + | [facility] | [address] | [place] [address] | [phone] | + + + + + Hemoglobin [...] | | | | | performed at [facility], [address] | | | | | | [address] [facility], | | | | | | [place] [address] | | | | + + + + + + + + | Specimen | + + | Blood | + + + + + + + | Performing | Address | City/State/Zipcode | Phone Number | | Organization | | | | + + + + + | [facility] | [address] | [place] [address] | [phone] | + + + + + PTT [...] | | performed at [facility];[address] | | LABORATORY | | | | [address];[place], [place] | | | | | | [address] | | | | + + + + + + + + | Specimen | + + | Blood | + + + + + + + | Performing | Address | City/State/Zipcode | Phone Number | | Organization | | | | + + + + + | [facility] | [address] | [place] [address] | [phone] | + + + + + Renal [...] | | | | | performed at [facility], [address] | | | | | | [facility], | | | | | | [place] [address] | | | | + + + + + + + + | Specimen | + + | Blood | + + + + + + + | Performing | Address | City/State/Zipcode | Phone Number | | Organization | | | | + + + + + | [facility] | [address] | [place] [address] | [phone] | + + + + + Troponin [...] | | performed at [facility];[address] | | | | | | [facility];[place], [place] | | | | | | [address] | | | | + + + + + + + + | Specimen | + + | Blood | + + + + + + + | Performing | Address | City/State/Zipcode | Phone Number | | Organization | | | | + + + + + | [facility] | [address] | [place] [address] | [phone] | + + + + + POC [...] POC | performed at [facility];[address] | | LABORATORY | | [...] HOSP[facility] | [address] | [place] [address] | [phone] | + + + + + POC [...] POC | performed at [facility];[address] | | LABORATORY | | | | [address];[place] | | | | | | [address] | | | | + + + + + + + + | Specimen | + + | | + + + + + + + | Performing | Address | City/State/Zipcode | Phone Number | | Organization | | | | + + + + + | [facility] | [address] | [place] [address] | [phone] | + + + + + Troponin [...] | | | BY:CARLA Gardner RN [facility] [id number] | | | | | | [id number] KAWTesting | | | | | | performed at [facility];[address];[place] | | | | | | [address] | | | | + + + + + + + + | Specimen | + + | Blood | + + + + + + + | Performing | Address | City/State/Zipcode | Phone Number | | Organization | | | | + + + + + | [facility] | [address] | [place] [address] | [phone] | + + + + + POC [...] POC | performed at [facility];[address] | | LABORATORY | | | | [address];[place], [place] | | | | | | [address] | | | | + + + + + + + + | Specimen | + + | | + + + + + + + | Performing | Address | City/State/Zipcode | Phone Number | | Organization | | | | + + + + + | [facility] | [address] | [place] [address] | [phone] | + + + + + POC [...] POC | performed at [facility];[address] | | LABORATORY | | | | [address];[place] | | | | | | [address] | | | | + + + + + + + + | Specimen | + + | | + + + + + + + | Performing | Address | City/State/Zipcode | Phone Number | | Organization | | | | + + + + + | [facility] | [address] | [place] [address] | [phone] | + + + + + Phosphorus [...] | | performed at [facility];[address] | | LABORATORY | | | | [address];[place], [place] | | | | | | [address] | | | | + + + + + + + + | Specimen | + + | Blood | + + + + + + + | Performing | Address | City/State/Zipcode | Phone Number | | Organization | | | | + + + + + | [facility] | [address] | [place] [address] | [phone] | + + + + + Troponin [...] | | performed at [facility];[address] | | | | | | [address];[place], [place] | | | | | | [address] | | | | + + + + + + + + | Specimen | + + | Blood | + + + + + + + | Performing | Address | City/State/Zipcode | Phone Number | | Organization | | | | + + + + + | [facility] | [address] [facility] | [place] [address] | [phone] | + + + + + CBC [...] Absolute | performed at [facility];[address] | K/uL | LABORATORY | | | | [address];[place] | | | | | | [address] | | | | + + + + + + + + | Specimen | + + | Blood | + + + + + + + | Performing | Address | City/State/Zipcode | Phone Number | | Organization | | | | + + + + + | [facility] | [address] | [place] [address] | [phone] | + + + + + Basic [...] | | performed at [facility] | | | | | | [facility];[place], [place] | | | | | | [address] | | | | + + + + + + + + | Specimen | + + | Blood | + + + + + + + | Performing | Address | City/State/Zipcode | Phone Number | | Organization | | | | + + + + + | [facility] | [address] | [place] [address] | [phone] | + + + + + PTT [...] | | performed at [facility];[address] | | LABORATORY | | | | [address];[place] | | | | | | [address] | | | | + + + + + + + + | Specimen | + + | Blood | + + + + + + + | Performing | Address | City/State/Zipcode | Phone Number | | Organization | | | | + + + + + | [facility] | [address] | [place] [address] | [phone] | + + + + + Troponin [...] | | performed at [facility];[address] | | | | | | [address];[place] | | | | | | [address] | | | | + + + + + + + + | Specimen | + + | Blood | + + + + + + + | Performing | Address | City/State/Zipcode | Phone Number | | Organization | | | | + + + + + | [facility] | [address] | [place] [address] | [phone] | + + + + + POC [...] POC | performed at [facility];[address] | | LABORATORY | | | | [address];[place], [place] | | | | | | [address] | | | | + + + + + + + + | Specimen | + + | | + + + + + + + | Performing | Address | City/State/Zipcode | Phone Number | | Organization | | | | + + + + + | [facility] | [address] | [place] [address] | [phone] | + + + + + POC [...] POC | performed at [facility];[address] | | LABORATORY | | | | [address];[place] | | | | | | [address] | | | | + + + + + + + + | Specimen | + + | | + + + + + + + | Performing | Address | City/State/Zipcode | Phone Number | | Organization | | | | + + + + + | [facility] | [address] | [place] [address] | [phone] | + + + + + Troponin [...] | | performed at [facility];[address] | | | | | | [facility];[place], [place] | | | | | | [address] | | | | + + + + + + + + | Specimen | + + | Blood | + + + + + + + | Performing | Address | City/State/Zipcode | Phone Number | | Organization | | | | + + + + + | [facility] | [address] | [place] [address] | [phone] | + + + + + Protein, [...] LABORATORY | | | | performed at [facility], [facility] | | | | | | [address], | | | | | | [place] [address] | | | | + + + + + + + + | Specimen | + + | | + + + + + + + | Performing | Address | City/State/Zipcode | Phone Number | | Organization | | | | + + + + + | [facility] | [address] | [place] [address] | [phone] | + + + + + Protein/Creatinine Ratio, Urine (02/12/2019 3:05 PM PDT) + + + + + + | Component | Value | Ref Range | Performed | Pathologist | | | | | At | Signature | + + + + + + | PRO/CREA | 1.364Comment: Testing | | MARYAN | | | RATIO,URINE | performed at [facility], [address] | | LABORATORY | | | | [address], | | | | | | [place] [address] | | | | + + + + + + + + | Specimen | + + | | + + + + + + + | Performing | Address | City/State/Zipcode | Phone Number | | Organization | | | | + + + + + | [facility] | [address] | [place] [address] | [phone] | + + + + + Urinalysis [...] - 1.030 | [facility] | | | [place], | | | LABORATORY | | | [...] CRYSTALS | performed at [facility];[address] | | LABORATORY | | | | [address];[place] | | | | | | [address] | | | | + + + [...] HOSPITAL [facility] | [address] | [place] [address] | [phone] | + + + + + Urea [...] | | | Urine | performed at [facility], [address] | | | | | [address] [facility], | | | | | | [place] [address] | | | | + + + [...] HOSPITAL [facility] | [address] | [place] [address] | [phone] | + + + + + Sodium, [...] | | | urine | performed at [facility], [address] | | | | | [address], | | | | | | [place] [address] | | | | + + + [...] HOSPITAL [facility]ORY | [address] | [place] [address] | [phone] | + + + + + Eosinophil [...] LABORATORY | | | | performed at [facility], [address] | | | | | | [address], | | | | | | [place] [address] | | | | + + + [...] HOSPITAL [facility] | [address] | [place] [address] | [phone] | + + + + + Creatinine, [...] | | | urine | performed at [facility], [address] | | | | | | [address] [facility] [address], | | | | | | [place] [address] | | | | + + + [...] HOSPITAL [facility] | [address] | [place] [address] | [phone] | + + + + + Chloride, [...] | | | CHLORIDE | performed at [facility], [address] | | | | | | [address] [facility] [address], | | | | | | [place] [address] | | | | + + + [...] | [address] | [place] [address] | [phone] | + + + + + POC [...] POC | performed at [facility];[address] | | LABORATORY | | | | [address];[place], [place] | | | | | | [address] | | | | + + + + + + + + | Specimen | + + | | + + + + + + + | Performing | Address | City/State/Zipcode | Phone Number | | Organization | | | | + + + + + | [facility] | [address] | [place] [address] | [phone] | + + + + + ECHO [...] | | | | | | n [place] | | | | | + + [...] | | performed at [facility];[address] | | | | | | [address] [facility];[place], [place] | | | | | | [address] | | | | + + + + + + + + | Specimen | + + | Blood | + + + + + + + | Performing | Address | City/State/Zipcode | Phone Number | | Organization | | | | + + + + + | [facility] | [address] | [place] [address] | [phone] | + + + + + POC [...] POC | performed at [facility];[address] | | LABORATORY | | | | [address];[place], [place] | | | | | | [address] | | | | + + + + + + + + | Specimen | + + | | + + + + + + + | Performing | Address | City/State/Zipcode | Phone Number | | Organization | | | | + + + + + | [facility] | [address] | [place] [address] | [phone] | + + + + + PTT [...] | | performed at [facility];[address] | | LABORATORY | | | | [address];[place] | | | | | | [address] | | | | + + + + + + + + | Specimen | + + | Blood | + + + + + + + | Performing | Address | City/State/Zipcode | Phone Number | | Organization | | | | + + + + + | [facility] | [address] | [place] [address] | [phone] | + + + + + Basic [...] | | | | | performed at [facility], [address] | | | | | | [facility], | | | | | | [place] [address] | | | | + + + + + + + + | Specimen | + + | Blood | + + + + + + + | Performing | Address | City/State/Zipcode | Phone Number | | Organization | | | | + + + + + | [facility] | [address] | [place] [address] | [phone] | + + + + + CBC [...] [facility] | | | | performed at [facility], [address] | | LABORATORY | | | | [address], | | | | | | [place] [address] | | | | + + + + + + + + | Specimen | + + | Blood | + + + + + + + | Performing | Address | City/State/Zipcode | Phone Number | | Organization | | | | + + + + + | [facility] | [address] | [place] [address] | [phone] | + + + + + CK [...] | | performed at [facility];[address] | | LABORATORY | | | | [address];[place], [place] | | | | | | [address] | | | | + + + + + + + + | Specimen | + + | Blood | + + + + + + + | Performing | Address | City/State/Zipcode | Phone Number | | Organization | | | | + + + + + | [facility] | [address] [facility] | [place] [address] | [phone] | + + + + + ECG [...] POC | performed at [facility];[address] | | LABORATORY | | | | [address];[place], [place] | | | | | | [address] | | | | + + + + + + + + | Specimen | + + | | + + + + + + + | Performing | Address | City/State/Zipcode | Phone Number | | Organization | | | | + + + + + | [facility] | [address] | [place] [address] | [phone] | + + + + + POC [...] POC | performed at [facility];[address] | | LABORATORY | | | | [address];[place] | | | | | | [address] | | | | + + + + + + + + | Specimen | + + | | + + + + + + + | Performing | Address | City/State/Zipcode | Phone Number | | Organization | | | | + + + + + | [facility] | [address] | [place] [address] | [phone] | + + + + + PTT [...] | | performed at [facility];[address] | | LABORATORY | | | | [address];[place] | | | | | | [address] | | | | + + + + + + + + | Specimen | + + | Blood | + + + + + + + | Performing | Address | City/State/Zipcode | Phone Number | | Organization | | | | + + + + + | [facility] | [address] | [place] [address] | [phone] | + + + + + POC [...] POC | performed at [facility];[address] | | LABORATORY | | | | [address];[place], [place] | | | | | | [address] | | | | + + + + + + + + | Specimen | + + | | + + + + + + + | Performing | Address | City/State/Zipcode | Phone Number | | Organization | | | | + + + + + | [facility] | [address] | [place] [address] | [phone] | + + + + + ECG [...] Clotting | performed at [facility];888 | seconds | LABORATORY | | | Time, POC | [address];[place], [place] | | | | | | [address] | | | | + + + + + + + + | Specimen | + + | | + + + + + + + | Performing | Address | City/State/Zipcode | Phone Number | | Organization | | | | + + + + + | [facility] | [address] | [place] [address] | [phone] | + + + + + POC [...] POC | performed at [facility];[address] | | LABORATORY | | | | [address];[place] | | | | | | [address] | | | | + + + + + + + + | Specimen | + + | | + + + + + + + | Performing | Address | City/State/Zipcode | Phone Number | | Organization | | | | + + + + + | [facility] | [address] | [place] [address] | [phone] | + + + + + PTT [...] | | performed at [facility];[address] | | LABORATORY | | | | [facility];[place], [place] | | | | | | [address] | | | | + + + + + + + + | Specimen | + + | Blood | + + + + + + + | Performing | Address | City/State/Zipcode | Phone Number | | Organization | | | | + + + + + | [facility] | [address] | [place] [address] | [phone] | + + + + + Troponin [...] | | performed at [facility] | | | | | | [facility];[place], [place] | | | | | | [address] | | | | + + + + + + + + | Specimen | + + | Blood | + + + + + + + | Performing | Address | City/State/Zipcode | Phone Number | | Organization | | | | + + + + + | [facility] | [address] | [place] [address] | [phone] | + + + + + ECG [...] | | performed at [facility];[address] | | LABORATORY | | | | [address];[place] | | | | | | [address] | | | | + + + + + + + + | Specimen | + + | Blood | + + + + + + + | Performing | Address | City/State/Zipcode | Phone Number | | Organization | | | | + + + + + | [facility] | [address] | [place] [address] | [phone] | + + + + + TSH (02/11/2019 7:43 AM PDT) + + + + + + | Component | Value | Ref Range | Performed | Pathologist | | | | | At | Signature | + + + + + + | TSH | 0.779Comment: Testing | 0.450 - 5.100 | [facility] | | | | performed at [facility];[address] | uIU/mL | LABORATORY | | | | [address];[place] | | | | | | [address] | | | | + + + + + + + + | Specimen | + + | Blood | + + + + + + + | Performing | Address | City/State/Zipcode | Phone Number | | Organization | | | | + + + + + | [facility] | [address] | [place] [address] | [phone] | + + + + + B [...] | | LABORATORY | | | | [facility];[address];[place] [address] | | | | + + + + + + + + | Specimen | + + | Blood | + + + + + + + | Performing | Address | City/State/Zipcode | Phone Number | | Organization | | | | + + + + + | [facility] | [address] | [place] [address] | [phone] | + + + + + Lipid [...] | | | Calculated | performed at [facility], [address] | | LABORATORY | | | | [address], | | | | | | [place] [address] | | | | + + + + + + + + | Specimen | + + | Blood | + + + + + + + | Performing | Address | City/State/Zipcode | Phone Number | | Organization | | | | + + + + + | [facility] | [address] | [place] [address] | [phone] | + + + + + Comprehensive [...] W | | | | | | [facility], | | | | | | [place] [address] | | | | + + + + + + + + | Specimen | + + | Blood | + + + + + + + | Performing | Address | City/State/Zipcode | Phone Number | | Organization | | | | + + + + + | [facility] | [address] | [place] [address] | [phone] | + + + + + CBC [...] [facility] | | | | performed at [facility], [address] | | LABORATORY | | | | [address], | | | | | | [place] [address] | | | | + + + + + + + + | Specimen | + + | Blood | + + + + + + + | Performing | Address | City/State/Zipcode | Phone Number | | Organization | | | | + + + + + | [facility] | [address] | [place] [address] | [phone] | + + + + + Troponin [...] | | | | ALEJANDRA V/6RP @ 9288 | | | | | | [facility] | | | | | | VERIFIEDTesting | | | | | | performed at [facility];[address] | | | | | | [address];[place], [place] | | | | | | [address] | | | | + + + + + + + + | Specimen | + + | Blood | + + + + + + + | Performing | Address | City/State/Zipcode | Phone Number | | Organization | | | | + + + + + | [facility] | [address] [facility] | [place] [address] | [phone] | + + + + + POC [...] POC | performed at [facility];[address] | | LABORATORY | | | | [address];[place], [place] | | | | | | [address] | | | | + + + + + + + + | Specimen | + + | | + + + + + + + | Performing | Address | City/State/Zipcode | Phone Number | | Organization | | | | + + + + + | [facility] | [address] | [place] [address] | [phone] | + + + + + Troponin [...] | | performed at [facility] | | | | | | [facility];[place], [place] | | | | | | [address] | | | | + + + + + + + + | Specimen | + + | Blood | + + + + + + + | Performing | Address | City/State/Zipcode | Phone Number | | Organization | | | | + + + + + | [facility] | [address] | [place] [address] | [phone] | + + + + + ECG [...] (500), | | | | | | medical transcription editor Shea Fajardo | | | | [...]
--- OUTSIDE RECORDS SUMMARY | ~2019-04-07 | XMS | Encounter Summary ---
Demographics + + + | Address | [address] | | | [place] [address] | + + + | Home Phone | | + + + | Preferred Language | Unknown | + + + | Marital Status | Legally | + + + | Religion Affiliation | 1041 | + + + | Race | Unknown | + + + | Ethnic Group | Unknown | + + + Author + + + | Author | [facility] | | | and [place] | + + + | Organization | [facility] | | | [...] Team Providers + +------+ + | Care Physical Security Engineer Name | Role | Phone | [...] | | | | | [place] | | | | | | [...] + + | 02/11/ | Hospital | [facility] | Albert Strange | NSTEMI (non-ST | | 2019 - | Encounter | [facility] | MD Dre [address] | elevated myocardial | | | | CARE FLOOR [address] [place], [place] | infarction) (HCC) | | 02/28/ | | [address] | [address] | (Primary Dx); CKD | | 2019 | | [place], [place] | [phone] | (chronic kidney | | | | [address] | | disease) stage 4, | | | | [phone] | Theodore Breaux, | GFR 15-29 ml/min | | | | | [address] | (HCC); Acute | | | | | [place] [address] | coronary syndrome | | | | | [phone] | (HCC); Acute renal | | | | | | failure with other | | | | | Sue Avitia MD | specified | | | | | [address] | pathological kidney | | | | | [place] [address] | lesion superimposed | | | | | [phone] | on stage 3 chronic | | | | | | kidney disease | | | | | Liban Nair MD | (HCC); Paroxysmal | | | | | [address] | atrial fibrillation | | | | | [place], [place] | ([facility]); Chest pain, | | | | | [address] | unspecified type; | | | | [...] | | | | | [place] | | | | | | [...] insulin | | | | | | ([facility]); | | | | | | Hyperlipidemia, | | | | | | unspecified | | | | | | hyperlipidemia type; | | | | | | JAMESON (acute kidney | | | | | | injury) ([facility]); CKD | | | | | | (chronic kidney | | | | | | disease) stage 3, | | | | | | GFR 30-59 ml/min | | | | | | ([facility]); Essential | | | | | | [...] (moderate) | | | | | | ([facility]); Hyperkalemia; | | | | | | [...] Joselito Robertson AGE/SEX: 53 y.o. male ROOM: [address] [place] [address] : 1965 PCP: No Physician on file [...] was diagnosed with a non- ST segment LA. He was evaluated by Dr. Canales and [...] The patient was fit for discharge to [facility] ([facility]) on 02/28/19. Problems addressed during hospital stay: 1)Low EF with LV thrombus: On Xarelto FREIGHT REPRESENTATIVE for PAF (pt remained SR throughout hospitalizati on), however dt concern for bleeding was started on Coumadin instead. Goal INR 2-3. F/u with cardiology 2)CKD/ARF: Nephrology following patient closely throughout hospitalization. Cr increased h owever improved with hydration. Pt to f/u with his flooring machine operator outpatient. 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 08/12/2014 Vitamin D deficiency 10/13/2017 Past Surgical History: Procedure Laterality Date CARDIAC CATHERIZATION N/A 02/11/2019 Procedure: CV COR ANGIO; Surgeon: Juan Canales MD; Location: [facility] CV LAB CORONARY ARTERY BYPASS GRAFT N/A 02/15/2019 Procedure: CORONARY ARTERY BYPASS GRAFT X4 WITH TAKEDOWN LEFT INTERNAL MAMMARY ARTERY, EVH RIGHT SAPHONUS VEIN; Surgeon: Liban Nair MD; Location: [facility] MAIN OR Allergies Allergen Reactions Penicillins Anaphylaxis, [...] to start cardiac rehabilitation in accordance with weaver apprentice recommendations. Pt advised not to drive for [...] manage prescriptions until pt has seen seen Floor Service Worker Spring and Primary Care Physician, who will resume [...] on file. Follow up: Yue Mcguire PA-C [address] [facility] [address] [facility] [phone] Liban Nair MD [address] [place] E [facility] [address] Schedule an appointment as soon as possible for a visit on 03/13/2019 Post-op Juan Canales MD [address] [facility] [id number] Schedule an appointment as soon as possible [...] | | | | | | | [id number] to 220 Give | | | | | | | 4 [id number] to 260 | | | | | | | Give 6 [id number] | | | | | | | to 300 Give 8 | | | | | | | [id number] to 350 Give | | | | [...] a long and complicated course during his [facility] hospitalization. In brief he is status [...] was completed later after rounds. Dictation software, [employer], was used which may contain error for [...] this note might be different from the [facility] Service: Cardiology Progress Note Hospital Day: [...] was completed later after rounds. Dictation software, [employer], was used which may contain error for [...] this note might be different from the [facility] Service: Cardiology Progress Note Hospital Day: [...] Barrow PA-C - 02/27/2019 8:17 AM PST [facility]: Cardiothoracic Surgery Progress Note ROOM: [address] [place] [address] Hospital Day: LOS: 16 days Post-Op Day: [...] hours. No results for input(s): PHART, PO2ART, [id number], [id number], BEART in the last 168 hours. Recent [...] Continue Step Down Unit care. Discharge to [facility] Nephrology Consult. Code Status: Full Code [...] Lizarraga MD - 02/26/2019 9:05 AM PST [facility] Service: Infectious Disease Progress Note Hospital Day: [...] A/B, NAAT NEGATIVE CLNEG C Diff Strain [id number], Stool 027 NAP1 BI PRESUMPTIVE NEGATIVE POC [...] might be different fro m the original. [facility]: Cardiology Progress Note Hospital Day: LOS: [...] Barrow PA-C - 02/26/2019 7:41 AM PST [facility]: Cardiothoracic Surgery Progress Note ROOM: [address] [place] [address] Hospital Day: LOS: 15 days Post-Op Day: [...] hours. No results for input(s): PHART, PO2ART, [id number], [id number], BEART in the last 168 hours. Recent [...] Continue Step Down Unit care. Discharge to [facility] Bed pending Life Vest place ment. [...] ARNP - 02/25/2019 10:06 AM PST . [facility]: Cardiothoracic Surgery Progress Note ROOM: [address] [place] [address] Hospital Day: LOS: 14 days Post-Op Day: [...] hours. No results for input(s): PHART, PO2ART, JQJ3BQC, G8RWFVYM, BEART in the last 168 hours. Recent [...] Continue Step Down Unit care. Placement with [facility] Swing Bed on Tuesday. Code Status: Full Code The patient has been seen, all new lab results and imaging reviewed, and the plan discussed with the attending provider, Dr. Matias TERRELL, OUTSOLE CEMENTER 02/25/2019 Associated attestation - Mark Salcedo MD [...] might b e different from the original. [facility]: Cardiology Progress note Hospital Day: LOS [...] might be different from the o riginal. [facility]: Cardiothoracic Surgery Progress Note ROOM: 9103/9103-01 [...] hours. No results for input(s): PHART, PO2ART, NFM9EQR, V9TCJCUX, BEART in the last 168 hours. Recent [...] Continue Step Down Unit care. Placement with [facility] on Tuesday. Code Status: Full Code The patient has been seen, all new lab results and imaging reviewed, and the plan discussed with the attending provider, Dr. Matias TERRELL, OUTSOLE CEMENTER 02/24/2019 Associated attestation - Mark Salcedo MD [...] might b e different from the original. [facility]: Cardiology Progress note Hospital Day: LOS [...] 1-2 spray 1-2 spray Mouth/Throat Q3H PRN BEILNDA Erickson polyethylene glycol (MIRALAX) powder 17 g [...] Duval at 02/23/2019 2:09 PM Halima Marks [facility] - 1 04/25/2018 1:55 PM PDT Clinical Pharmacy Note: Warfarin Continuation of Therapy Referring Provider: Valeria Robertson male 53 y.o. Indication Atrial Fibrillation, LV thrombus Goal INR: 2-3 Other Anticoagulation: Heparin drip (xarelto listed on FREIGHT REPRESENTATIVE med list) Drug Interactions: aspirin may increase list of bleeding. FREIGHT REPRESENTATIVE med list reviewed and no sign ificant [...] therapy as indicated. Thank you. Alexander. Tapia [facility] I have read and agree with the resident's assessment and plan. Escalating warfarin dose tod ay to obtain therapeutic level more quickly and transition off of heparin drip in anticipati on of discharge to [facility] this weekend. If INR increases [...] Angelo MD - 02/23/2019 12:59 PM PDT [facility]: Cardiology Progress note Hospital Day: LOS [...] Douglas Vargas MD 02/23/19 reen, [address], OUTSOLE CEMENTER - 02/23/2019 8:29 AM PDTFormatting of this note might be different from the or iginal. [facility]: Cardiothoracic Surgery Progress Note ROOM: [address] [place] [address] Hospital Day: LOS: 12 days Post-Op Day: [...] dextrose 10% heparin infusion 13.1 Units/kg/hr (02/23/19 0776) PRN Medications acetaminophen, albumin, albuterol, bisacodyl, Hypoglycemia [...] hours. No results for input(s): PHART, PO2ART, FDI8JWR, T2APQZWA, BEART in the last 168 hours. Recent [...] Continue Step Down Unit care. Placement with [facility] Swing Bed pending. Anticipate d ischarge this [...] complete. Meredith Quinones RN roctor, Cecil Razo [facility] - 02/22/2019 3:21 PM PDTFormatting of this note might be different from the origi nal. Pharmacy Warfarin Monitoring: Joselito Robertson male 53 y.o. Pharmacy consulted to dose warfarin per: BELINDA Luna INDICATION: Atrial Fibrillation, LV thrombus OTHER ANTICOAGULATION: heparin drip inpatient (Xarelto listed on FREIGHT REPRESENTATIVE med list) DRUG INTERACTIONS: aspirin and plavix may increase list of bleeding. FREIGHT REPRESENTATIVE med list reviewed and no significant DDI [...] Angelo MD - 02/22/2019 1:39 PM PDT [facility]: Cardiology Cross coverage for Dr. Canales [...] DETAIL WITH PATIENT/ care team ct sx Mnotserrat Khan, ANSWERS ALL QUES TIONS IN DETAIL, VERBALIZES UNDERSTANDING WILL SIGN OFF, CALL US PRN FOR ANY QUESTIONS, THANKS FOR THE CONSULT Stanislav Patricio MD ose, [address], OUTSOLE CEMENTER - 02/22/2019 7:48 AM PDT [facility] [...] 7.383 7.329* 7.309* PO2ART 94 94 83 [id number] 39 43 39 [id number] 97 97 95 Recent Labs Lab 02/22/19 [...] Cardiac Unit care for now. Placement with [facility] Swing Bed pending. Elian fleming discharge on [...] OTHER ANTICOAGULATION: none inpatient (Xarelto listed on FREIGHT REPRESENTATIVE med list) DRUG INTERACTIONS: aspirin and plavix may increase list of bleeding. FREIGHT REPRESENTATIVE med list reviewed and no significant DDI [...] note might be different [facility] Progress Note ROOM: [address] [place] [address] Hospital Day: LOS: 10 days Post-Op Day: 6 Days Post-Op Surgery/Procedure: 02/15/19, Dr aNir 1. Urgent coronary artery bypass grafting times [...] 7.383 7.329* 7.309* PO2ART 94 94 83 [id number] 39 43 39 [id number] 97 97 95 Recent Labs Lab 02/15/19 [...] Cardiac Unit care for now. Placement with [facility] pending. Elian fleming discharge on [...] Mott PA-C - 02/20/2019 9:30 AM PDT [facility]: Cardiothoracic Surgery Progress Note ROOM: [address] [place] [address] Hospital Day: LOS: 9 days Post-Op Day: [...] 7.383 7.329* 7.309* PO2ART 94 94 83 [id number] 39 43 39 [id number] 97 97 95 Recent Labs Lab 02/15/19 [...] Cardiac Unit care for now. Placement with [facility] pending. Code Status: Full Code [...] Chart check co mplete. relio, [address], OUTSOLE CEMENTER - 02/19/2019 9:00 AM PDTFormatting of this note might be different from the shaggy maria ines. [facility]: Cardiothoracic Surgery Progress Note ROOM: [address] [place] [address] Hospital Day: LOS: 8 days Post-Op Day: [...] 100 mg by mouth Daily. Yes Histori ipta Provider, nitroglycerin (NITROSTAT) 0.4 mg SL tablet [...] 7.383 7.329* 7.309* PO2ART 94 94 83 [id number] 39 43 39 [id number] 97 97 95 Recent Labs Lab 02/15/19 [...] this note might be different from the [facility] Service: Cardiothoracic Surgery Progress Note ROOM: 22169/63290-70 Hospital Day: LOS: 7 days Post-Op Day: [...] Oral BID Continuous Infusions dexmedetomidine Stopped (02/16/19 7210) dextrose 10% EPINEPHrine infusion Stopped (02/16/19 9560) nitroglycerin in dextrose Stopped (02/15/19 1308) phenylephrine 30 mcg/min (02/16/19 8179) vasopressin (VASOSTRICT) infusion (shock) PRN Medications albumin, [...] 7.383 7.329* 7.309* PO2ART 94 94 83 [id number] 39 43 39 [id number] 97 97 95 Recent Labs Lab 02/15/19 [...] - 02/18/2019 3:19 AM [facility] Service: Psychic Reader Cardiothoracic Surgery Consult and Follow Up Date/Time:02/18/2019 [...] CKD stage 3, psoriasis who presented to [facility] due to a 2 day history [...] (ASA, plavix, betablocker, statin) - extubated to TN. - Post operative management per CTS (chest [...] Oral BID current Meds: dexmedetomidine Stopped (02/16/19 3744) dextrose 10% EPINEPHrine infusion Stopped (02/16/19 4600) nitroglycerin in dextrose Stopped (02/15/19 1308) phenylephrine 30 mcg/min (02/16/19 449) vasopressin (VASOSTRICT) infusion (shock) P.E. Vs; reviewed [...] Sanders PA - 1 4:11 PM PDT [facility]: Cardiothoracic Surgery Progress Note ROOM: 10976/34860-78 Hospital Day: LOS: 6 days Post-Op Day: [...] Stopped (02/15/19 1308) phenylephrine 30 mcg/min (02/16/19 3589) vasopressin (VASOSTRICT) infusion (shock) PRN Medications albumin, [...] 7.383 7.329* 7.309* PO2ART 94 94 83 [id number] 39 43 39 [id number] 97 97 95 Recent Labs Lab 02/15/19 [...] - 02/17/2019 1:27 AM [facility] Service: Psychic Reader Cardiothoracic Surgery Consult and Follow Up Date/Time:02/17/2019 [...] resolved hospital problems. * SUBJECTIVE: Patient Summary: hSai Robertson is a 53 yo male with PMH of CAD s.p stent to mid RCA, PAF on xarelto, type 2 DM, HTN, HLD, CKD stage 3, psoriasis who presented to [facility] due to a 2 day history [...] (ASA, plavix, betablocker, statin) - extubated to TN. - Post operative management per CTS (chest [...] Oral BID current Meds: dexmedetomidine Stopped (02/16/19 5883) dextrose 10% EPINEPHrine infusion 1 mcg/min (02/16/19 [...] Sanders PA - 1 9:38 AM PDT [facility]: Cardiothoracic Surgery Progress Note ROOM: [facility]/[address] [place] [address] Hospital Day: LOS: 5 days Post-Op Day: [...] C (99 F) (Infrared Device) Comment (Src): Davenport-Roland catheter | Resp 16 | Ht 1.803 [...] 7.383 7.329* 7.309* PO2ART 94 94 83 [id number] 39 43 39 [id number] 97 97 95 Recent Labs Lab 02/15/19 [...] - 02/16/2019 6:57 AM [facility] Service: Psychic Reader Cardiothoracic Surgery Consult and Follow Up Date/Time:02/16/2019 [...] CKD stage 3, psoriasis who presented to [facility] due to a 2 day history [...] C (99 F) (Infrared Device) Comment (Src): Davenport-Roland catheter | Resp 19 | Ht 1.803 [...] (ASA, plavix, betablocker, statin) - extubated to TN. - Post operative management per CTS (chest [...] Out: 3835 [Urine:685; Other:1900; Blood:1250] Assessment: Mr. Robertosn is a 53 y.o. male patient with [...] presented with: "Chest Pain" Recommendations: No acute LEVER MILLER indication Gentle IVF. Plan to stop IVF [...] the ON pump repor t by phone [phone] @ 1013 OFF bypass report received @ 1150 Gave Pt's ex- the OFF pump report [...] presented with: "Chest Pain" Recommendations: No acute LEVER MILLER indication Stop IVF Strict low sodium in [...] Sue Calderon MD - 8:52 AM PDT [facility]: Hospitalist Progress Note Hospital Day: LOS: 3 days Post-Op Day: Day of Surgery SUBJECTIVE Patient Summary: 53-year-old male who has a known history of coronary arter y disease, status post stenting approximately in 2007, afib on xarelto, hypertension, HLD, D M type II who was transferred from [facility] for chest pain and was found to have NSTEMI . Patient started on heparin gtt. Cardiology consulted, patient underwent angiogram on 02/11 and found to have multi vessel disease. Dr. Nari consulted. Hospital course complicated by Acute on [...] dextrose 10% heparin infusion 14 Units/kg/hr (02/14/19 8813) sodium chloride 0.9% 75 mL/hr at 02/13/19 6139 PRN Medications acetaminophen, Hypoglycemia Management AND POCT [...] inpatient, currently scheduled for . Chronic diarrhea: [place] to be related to lactose intolerance. He [...] this note might be different from the [facility] Service: Cardiology Progress Note Hospital Day: [...] acinda Smith RN - 02/13/2019 10:39 PM [id number] Patient complained of CP 1x nitroglycerin given [...] dextrose 10% heparin infusion 12 Units/kg/hr (02/13/19 6430) sodium chloride 0.9% 1,000 mL (02/13/19 0440) [...] risk of JAMESON are undertaken. No acute LEVER MILLER indication Gentle IVF as ordered Strict low [...] MD - 02/13/2019 8:59 AM PDT . [facility]: Cardiology Progress Note Hospital Day: LOS: [...] might be different from the halie stevenson. [facility]: Hospitalist Progress Note Hospital Day: LOS: 2 days Post-Op Day: Day of Surgery SUBJECTIVE Patient Summary: 53-year-old male who has a known history of coronary arter y disease, status post stenting approximately in 2007, afib on xarelto, hypertension, HLD, D M type II who was transferred from [facility] for chest pain and was [...] dextrose 10% heparin infusion 12 Units/kg/hr (02/13/19 6071) sodium chloride 0.9% 1,000 mL (02/13/19 6004) PRN Medications acetaminophen, Hypoglycemia Management AND POCT [...] PV Regurgitation Velocity 132.5 cm/s AV Deceleration [place] 224.61 cm/s2 AV Deceleration Time 1,390.28 msec [...] Color, UA YELLOW Clarity, UA HAZY Specific [place], Urine 1.020 1.002 - 1.030 Leukocyte esterase, [...] aspirin, BB, statin. Holdin bipin francoeltmitzi. Dr. aNir consulted, plan for CABG while inpatient, timing [...] note might be different from the original. [facility]: Hospitalist Progress Note Hospital Day: LOS: 1 day Post-Op Day: Day of Surgery SUBJECTIVE Patient Summary: 53-year-old male who has a known history of coronary arter y disease, status post stenting approximately in 2007, afib on xarelto, hypertension, HLD, D M type II who was transferred from [facility] for chest pain and was [...] dextrose 10% heparin infusion 12 Units/kg/hr (02/12/19 5096) sodium chloride 0.9% 75 mL/hr at 02/12/19 [...] PV Regurgitation Velocity 132.5 cm/s AV Deceleration [place] 224.61 cm/s2 AV Deceleration Time 1,390.28 msec [...] Color, UA YELLOW Clarity, UA HAZY Specific [place], Urine 1.020 1.002 - 1.030 Leukocyte esterase, [...] Sue Avitia MD 02/12/2019 Yomi Butt AR ROTARY DRILL OPERATOR HELPER - 02/12/2019 8:[facility] picked up h is Xarelto on 02/10/19. Per documentation and patient information. Patient took his last dos e of Xarelto on Tuesday morning (02/10/19). He then presented to [facility] on the af of 02/10 and was transferred to [facility] early Tuesday (02/11/2019). Additionally, per ED documentation, the patient has not seen a Floor Service Worker Spring in 8 years, how ever he was [...] Montenegro MD - 02/12/2019 8:48 AM PDT [facility]: Cardiology Progress Note Hospital Day: LOS: [...] Denied CP throughout shift. Pt up to [facility] site is c/d/i. Hourly rounding uneventful otherwise. Chart check complete. Ale Bernard RN Kerline Rojas RN - 02/11/2019 7:00 PM PDTPt transferred from starch factory laborer to the floor at 1344 and [...] Calderon MD - 02/11/2019 12:00 PM PDT [facility]: Hospitalist Progress Note Hospital Day: LOS: [...] Confirmed by MUSE READ ONLY, -COMPUTER ([id number]), manuscript editor Fajardo, Shea ([id number]) on 02/11/2019 12:59 [...] 06/19/ | Office | Nephrology | Shea Perdaza, | | | 2019 | Visit | | MD Harmony Sharma | | | | | | [address] | | | | | | [place] [address] | | | | | | [phone] | | | | | | | [...] + + + | POC DENIS Duggan, ISLIESA | Routin | 02/15/2019 | | Results [...] | | | | PDT | infarction) ([facility]) | | + +--------+ + + + [...] | | | RN: | | | [id number] | | | [id number] | | | riteri | | | [...] | | | St. | | | [place] | | | y | | | [...] | | | St. | | | [place] | | | y H. | | [...] | | | St. | | | [place] | | | y H. | | [...] | | | St. | | | [place] | | | y H. | | [...] | | | St. | | | [place] | | | y H. | | [...] | | | St. | | | [place] | | | y H. | | [...] e of | | | [place] | | | | | | dasilva [...] Testing | 65 - 99 mg/dL | [facility] | | | POC | performed at [facility] | | LABORATORY | | | | [address];[place], [place] | | | | | | [address] | | | | + + + + + + + + | Specimen | + + | | + + + + + + + | Performing | Address | City/State/Zipcode | Phone Number | | Organization | | | | + + + + + | [facility] | [address] | [place] [address] | [phone] | + + + + + Protime [...] | | | | | performed at [facility];[address] | | | | | | [facility];[place], [place] | | | | | | [address] | | | | + + + + + + + + | Specimen | + + | Blood | + + + + + + + | Performing | Address | City/State/Zipcode | Phone Number | | Organization | | | | + + + + + | [facility] | [address] | [place] [address] | [phone] | + + + + + Magnesium (02/28/2019 4:39 AM PST) + + + + + + | Component | Value | Ref Range | Performed | Pathologist | | | | | At | Signature | + + + + + + | Magnesium | 2.0Comment: Testing | 1.7 - 2.4 mg/dL | [facility] | | | | performed at [facility], [address] | | LABORATORY | | | | [address], | | | | | | [place] [address] | | | | + + + + + + + + | Specimen | + + | Blood | + + + + + + + | Performing | Address | City/State/Zipcode | Phone Number | | Organization | | | | + + + + + | [facility] | [address] | [place] [address] | [phone] | + + + + + CBC [...] | | | Absolute | performed at [facility], [address] | [address] | LABORATORY | | | | [address], | | | | | | [place] [address] | | | | + + + + + + + + | Specimen | + + | Blood | + + + + + + + | Performing | Address | City/State/Zipcode | Phone Number | | Organization | | | | + + + + + | [facility] | [address] | [place] [address] | [phone] | + + + + + Basic [...] 40 (L)Comment: GFR <60: | >60 | [facility] | | | GFR | [...] | | | | | | MDRD [facility] traceable | | | | | | equation.Testing | | | | | | performed at [facility], [address] | | | | | | [facility], | | | | | | [place] [address] | | | | + + + + + + + + | Specimen | + + | Blood | + + + + + + + | Performing | Address | City/State/Zipcode | Phone Number | | Organization | | | | + + + + + | [facility] | [address] | [place] [address] | [phone] | + + + + + POC Glucose (02/27/2019 9:10 PM PST) + + + + + + | Component | Value | Ref Range | Performed | Pathologist | | | | | At | Signature | + + + + + + | Glucose, | 115 (H)Comment: Testing | 65 - 99 mg/dL | [facility] | | | POC | performed at [facility];[address] | | LABORATORY | | | | [address];[place] | | | | | | [address] | | | | + + + + + + + + | Specimen | + + | | + + + + + + + | Performing | Address | City/State/Zipcode | Phone Number | | Organization | | | | + + + + + | [facility] | [address] | [place] [address] | [phone] | + + + + + POC [...] | | | POC | performed at [facility];[address] | | LABORATORY | | | | [address];[place] | | | | | | [address] | | | | + + + + + + + + | Specimen | + + | | + + + + + + + | Performing | Address | City/State/Zipcode | Phone Number | | Organization | | | | + + + + + | [facility] | [address] | [place] [address] | [phone] | + + + + + POC [...] | | | POC | performed at [facility];[address] | | LABORATORY | | | | [address];[place], [place] | | | | | | [address] | | | | + + + + + + + + | Specimen | + + | | + + + + + + + | Performing | Address | City/State/Zipcode | Phone Number | | Organization | | | | + + + + + | [facility] | [address] | [place] [address] | [phone] | + + + + + POC [...] | | | POC | performed at [facility];[address] | | LABORATORY | | | | [address];[place] | | | | | | [address] | | | | + + + + + + + + | Specimen | + + | | + + + + + + + | Performing | Address | City/State/Zipcode | Phone Number | | Organization | | | | + + + + + | [facility] | [address] | [place] [address] | [phone] | + + + + + POC [...] | | | POC | performed at [facility];[address] | | LABORATORY | | | | [address];[place] | | | | | | [address] | | | | + + + + + + + + | Specimen | + + | | + + + + + + + | Performing | Address | City/State/Zipcode | Phone Number | | Organization | | | | + + + + + | [facility] | [address] | [place] [address] | [phone] | + + + + + Protime [...] | | | | | performed at [facility] | | | | | | [address] [facility];[place], [place] | | | | | | [address] | | | | + + + + + + + + | Specimen | + + | Blood | + + + + + + + | Performing | Address | City/State/Zipcode | Phone Number | | Organization | | | | + + + + + | [facility] | [address] | [place] [address] | [phone] | + + + + + Magnesium (02/27/2019 3:49 AM PST) + + + + + + | Component | Value | Ref Range | Performed | Pathologist | | | | | At | Signature | + + + + + + | Magnesium | 2.0Comment: Testing | 1.7 - 2.4 mg/dL | [facility] | | | | performed at [facility], [address] | | LABORATORY | | | | [address], | | | | | | [place] [address] | | | | + + + + + + + + | Specimen | + + | Blood | + + + + + + + | Performing | Address | City/State/Zipcode | Phone Number | | Organization | | | | + + + + + | [facility] | [address] | [place] [address] | [phone] | + + + + + CBC [...] | | | Absolute | performed at [facility], [address] | K[address] | LABORATORY | | | | [facility], | | | | | | [place] [address] | | | | + + + + + + + + | Specimen | + + | Blood | + + + + + + + | Performing | Address | City/State/Zipcode | Phone Number | | Organization | | | | + + + + + | [facility] | [address] | [place] [address] | [phone] | + + + + + Basic [...] W | | | | | | [facility], | | | | | | [place] [address] | | | | + + + + + + + + | Specimen | + + | Blood | + + + + + + + | Performing | Address | City/State/Zipcode | Phone Number | | Organization | | | | + + + + + | [facility] | [address] | [place] [address] | [phone] | + + + + + POC Glucose (02/26/2019 8:34 PM PST) + + + + + + | Component | Value | Ref Range | Performed | Pathologist | | | | | At | Signature | + + + + + + | Glucose, | 153 (H)Comment: Testing | 65 - 99 mg/dL | [facility] | | | POC | performed at [facility];[address] | | LABORATORY | | | | [address];[place] | | | | | | [address] | | | | + + + + + + + + | Specimen | + + | | + + + + + + + | Performing | Address | City/State/Zipcode | Phone Number | | Organization | | | | + + + + + | [facility] | [address] | [place] [address] | [phone] | + + + + + POC [...] | | | POC | performed at [facility];[address] | | LABORATORY | | | | [address];[place], [place] | | | | | | [address] | | | | + + + + + + + + | Specimen | + + | | + + + + + + + | Performing | Address | City/State/Zipcode | Phone Number | | Organization | | | | + + + + + | [facility] | [address] | [place] [address] | [phone] | + + + + + POC Glucose (02/26/2019 11:45 AM PST) + + + + + + | Component | Value | Ref Range | Performed | Pathologist | | | | | At | Signature | + + + + + + | Glucose, | 119 (H)Comment: Testing | 65 - 99 mg/dL | [facility] | | | POC | performed at [facility];[address] | | LABORATORY | | | | [address];[place] | | | | | | [address] | | | | + + + + + + + + | Specimen | + + | | + + + + + + + | Performing | Address | City/State/Zipcode | Phone Number | | Organization | | | | + + + + + | [facility] | [address] | [place] [address] | [phone] | + + + + + POC Glucose (02/26/2019 7:41 AM PST) + + + + + + | Component | Value | Ref Range | Performed | Pathologist | | | | | At | Signature | + + + + + + | Glucose, | 164 (H)Comment: Testing | 65 - 99 mg/dL | [facility] | | | POC | performed at [facility];[address] | | LABORATORY | | | | [...] | + + + + + | [facility] | [address] | [place] [address] | [phone] | + + + + + Protime [...] | | | | | performed at [facility];[address] | | | | | | [address];[place], [place] | | | | | | [address] | | | | + + + + + + + + | Specimen | + + | Blood | + + + + + + + | Performing | Address | City/State/Zipcode | Phone Number | | Organization | | | | + + + + + | [facility] | [address] | [place] [address] | [phone] | + + + + + Magnesium (02/26/2019 4:04 AM PST) + + + + + + | Component | Value | Ref Range | Performed | Pathologist | | | | | At | Signature | + + + + + + | Magnesium | 2.0Comment: Testing | 1.7 - 2.4 mg/dL | [facility] | | | | performed at [facility], [address] | | LABORATORY | | | | [address], | | | | | | [place] [address] | | | | + + + + + + + + | Specimen | + + | Blood | + + + + + + + | Performing | Address | City/State/Zipcode | Phone Number | | Organization | | | | + + + + + | [facility] | [address] | [place] [address] | [phone] | + + + + + CBC [...] 0.08Comment: Testing | 0.00 - 0.10 | [facility] | | | Absolute | performed at [facility], [address] | K/uL | LABORATORY | | | | [address], | | | | | | [place] [address] | | | | + + + + + + + + | Specimen | + + | Blood | + + + + + + + | Performing | Address | City/State/Zipcode | Phone Number | | Organization | | | | + + + + + | [facility] | [address] | [place] [address] | [phone] | + + + + + Basic [...] W | | | | | | [facility], | | | | | | [place] [address] | | | | + + + + + + + + | Specimen | + + | Blood | + + + + + + + | Performing | Address | City/State/Zipcode | Phone Number | | Organization | | | | + + + + + | [facility] | [address] | [place] [address] | [phone] | + + + + + POC [...] | | | POC | performed at [facility];[address] | | LABORATORY | | | | [address];[place], [place] | | | | | | [address] | | | | + + + + + + + + | Specimen | + + | | + + + + + + + | Performing | Address | City/State/Zipcode | Phone Number | | Organization | | | | + + + + + | [facility] | [address] | [place] [address] | [phone] | + + + + + Clostridium difficile DNA amplified (02/25/2019 5:42 PM PST) + + + + + + | Component | Value | Ref Range | Performed | Pathologist | | | | | At | Signature | + + + + + + | C. Diff | NEGATIVE | CLNEG | [facility] | | | Toxin A/B, | | | LABORATORY | | | NAAT | | | | | + + + + + + | C Diff | 027 NAP1 BI PRESUMPTIVE | | [facility] | | | Strain | NEGATIVEComment: | | LABORATORY | | | [id number] | Detection of 027 NAP1 BI | [...] | | | | | performed at [facility];[address] | | | | | | [address] [facility];[place], [place] | | | | | | [address] | | | | + + + + + + + + | Specimen | + + | Stool - Stool | | specimen (specimen) | + + + + + + + | Performing | Address | City/State/Zipcode | Phone Number | | Organization | | | | + + + + + | [facility] | [address] | [place] [address] | [phone] | + + + + + POC [...] | | | POC | performed at [facility];[address] | | LABORATORY | | | | [address];[place] | | | | | | [address] | | | | + + + + + + + + | Specimen | + + | | + + + + + + + | Performing | Address | City/State/Zipcode | Phone Number | | Organization | | | | + + + + + | [facility] | [address] | [place] [address] | [phone] | + + + + + POC Glucose (02/25/2019 12:05 PM PST) + + + + + + | Component | Value | Ref Range | Performed | Pathologist | | | | | At | Signature | + + + + + + | Glucose, | 242 (H)Comment: Testing | 65 - 99 mg/dL | [facility] | | | POC | performed at [facility];[address] | | LABORATORY | | | | [address];[place] | | | | | | [address] | | | | + + + + + + + + | Specimen | + + | | + + + + + + + | Performing | Address | City/State/Zipcode | Phone Number | | Organization | | | | + + + + + | [facility] | [address] | [place] [address] | [phone] | + + + + + Clostridium [...] | | | | | performed at [facility] | | | | | | [facility];[place], [place] | | | | | | [address] | | | | + + + + + + + + | Specimen | + + | | + + + + + + + | Performing | Address | City/State/Zipcode | Phone Number | | Organization | | | | + + + + + | [facility] | [address] | [place] [address] | [phone] | + + + + + POC Glucose (02/25/2019 7:41 AM PST) + + + + + + | Component | Value | Ref Range | Performed | Pathologist | | | | | At | Signature | + + + + + + | Glucose, | 147 (H)Comment: Testing | 65 - 99 mg/dL | [facility] | | | POC | performed at [facility];[address] | | LABORATORY | | | | [address];[place], [place] | | | | | | [address] | | | | + + + + + + + + | Specimen | + + | | + + + + + + + | Performing | Address | City/State/Zipcode | Phone Number | | Organization | | | | + + + + + | [facility] | [address] | [place] [address] | [phone] | + + + + + POC [...] | | | POC | performed at [facility];[address] | | LABORATORY | | | | [address];[place], [place] | | | | | | [address] | | | | + + + + + + + + | Specimen | + + | | + + + + + + + | Performing | Address | City/State/Zipcode | Phone Number | | Organization | | | | + + + + + | [facility] | [address] | [place] [address] | [phone] | + + + + + Hepatic [...] [facility] | | | | performed at [facility], [address] | | LABORATORY | | | | [address], | | | | | | [place] [address] | | | | + + + + + + + + | Specimen | + + | Blood | + + + + + + + | Performing | Address | City/State/Zipcode | Phone Number | | Organization | | | | + + + + + | [facility] | [address] | [place] [address] | [phone] | + + + + + Protime [...] | | | | | performed at [facility] | | | | | | [address];[place], [place] | | | | | | [address] | | | | + + + + + + + + | Specimen | + + | Blood | + + + + + + + | Performing | Address | City/State/Zipcode | Phone Number | | Organization | | | | + + + + + | [facility] | [address] | [place] [address] | [phone] | + + + + + Magnesium (02/25/2019 4:07 AM PST) + + + + + + | Component | Value | Ref Range | Performed | Pathologist | | | | | At | Signature | + + + + + + | Magnesium | 2.0Comment: Testing | 1.7 - 2.4 mg/dL | [facility] | | | | performed at [facility], [address] | | LABORATORY | | | | [address], | | | | | | [place] [address] | | | | + + + + + + + + | Specimen | + + | Blood | + + + + + + + | Performing | Address | City/State/Zipcode | Phone Number | | Organization | | | | + + + + + | [facility] | [address] | [place] [address] | [phone] | + + + + + CBC [...] K/uL | LABORATORY | | | | [facility], | | | | | | [place] [address] | | | | + + + + + + + + | Specimen | + + | Blood | + + + + + + + | Performing | Address | City/State/Zipcode | Phone Number | | Organization | | | | + + + + + | [facility] | [address] | [place] [address] | [phone] | + + + + + Basic [...] | LABORATORY | | | | [id number] | | | | | |[id number] | | | | | | [...] [address], | | | | | | [place] [address] | | | | + + + + + + + + | Specimen | + + | Blood | + + + + + + + | Performing | Address | City/State/Zipcode | Phone Number | | Organization | | | | + + + + + | [facility] | [address] | [place] [address] | [phone] | + + + + + POC [...] | | | POC | performed at [facility];[address] | | LABORATORY | | | | [address];[place], [place] | | | | | | [address] | | | | + + + + + + + + | Specimen | + + | | + + + + + + + | Performing | Address | City/State/Zipcode | Phone Number | | Organization | | | | + + + + + | [facility] | [address] | [place] [address] | [phone] | + + + + + POC Glucose (02/24/2019 4:29 PM PDT) + + + + + + | Component | Value | Ref Range | Performed | Pathologist | | | | | At | Signature | + + + + + + | Glucose, | 170 (H)Comment: Testing | 65 - 99 mg/dL | [facility] | | | POC | performed at [facility];[address] | | LABORATORY | | | | [address];[place] | | | | | | [address] | | | | + + + + + + + + | Specimen | + + | | + + + + + + + | Performing | Address | City/State/Zipcode | Phone Number | | Organization | | | | + + + + + | [facility] | [address] | [place] [address] | [phone] | + + + + + POC Glucose (02/24/2019 1:07 PM PDT) + + + + + + | Component | Value | Ref Range | Performed | Pathologist | | | | | At | Signature | + + + + + + | Glucose, | 179 (H)Comment: Testing | 65 - 99 mg/dL | [facility] | | | POC | performed at [facility];[address] | | LABORATORY | | | | [address];[place], [place] | | | | | | [address] | | | | + + + + + + + + | Specimen | + + | | + + + + + + + | Performing | Address | City/State/Zipcode | Phone Number | | Organization | | | | + + + + + | [facility] | [address] | [place] [address] | [phone] | + + + + + POC [...] | | | POC | performed at [facility];[address] | | LABORATORY | | | | [address];[place], [place] | | | | | | [address] | | | | + + + + + + + + | Specimen | + + | | + + + + + + + | Performing | Address | City/State/Zipcode | Phone Number | | Organization | | | | + + + + + | [facility] | [address] | [place] [address] | [phone] | + + + + + Protime INR (02/24/2019 4:22 AM PDT) + + + + + + | Component | Value | Ref Range | Performed | Pathologist | | | | | At | Signature | + + + + + + | INR | 1.7Comment: REFERENCE | | [facility] | | | | RANGE:0.9 [...] | | | | | performed at [facility];[address] | | | | | | [facility];[place], [place] | | | | | | [address] | | | | + + + + + + + + | Specimen | + + | Blood | + + + + + + + | Performing | Address | City/State/Zipcode | Phone Number | | Organization | | | | + + + + + | [facility] | [address] | [place] [address] | [phone] | + + + + + Magnesium [...] | | | | | [place] [address] | | | | + + + + + + + + | Specimen | + + | Blood | + + + + + + + | Performing | Address | City/State/Zipcode | Phone Number | | Organization | | | | + + + + + | [facility] | [address] | [place] [address] | [phone] | + + + + + CBC [...] 0.09Comment: Testing | 0.00 - 0.10 | [facility] | | | Absolute | performed at [facility], [address] | K/u[address] | LABORATORY | | | | [address], | | | | | | [place] [address] | | | | + + + + + + + + | Specimen | + + | Blood | + + + + + + + | Performing | Address | City/State/Zipcode | Phone Number | | Organization | | | | + + + + + | [facility] | [address] | [place] [address] | [phone] | + + + + + Basic [...] W | | | | | | [facility], | | | | | | [place] [address] | | | | + + + + + + + + | Specimen | + + | Blood | + + + + + + + | Performing | Address | City/State/Zipcode | Phone Number | | Organization | | | | + + + + + | [facility] | [address] | [place] [address] | [phone] | + + + + + PTT [...] at | | | | | | [facility];[address];[place] [address] | | | | + + + + + + + + | Specimen | + + | Blood | + + + + + + + | Performing | Address | City/State/Zipcode | Phone Number | | Organization | | | | + + + + + | [facility] | [address] | [place] [address] | [phone] | + + + + + Potassium (02/23/2019 9:19 PM PDT) + + + + + + | Component | Value | Ref Range | Performed | Pathologist | | | | | At | Signature | + + + + + + | K | 4.8Comment: Testing | 3.5 - 4.9 | [facility] | | | | performed at [facility];[address] | mmol/L | LABORATORY | | | | [address];[place] | | | | | | [address] | | | | + + + + + + + + | Specimen | + + | Blood | + + + + + + + | Performing | Address | City/State/Zipcode | Phone Number | | Organization | | | | + + + + + | [facility] | [address] | [place] [address] | [phone] | + + + + + POC Glucose (02/23/2019 9:12 PM PDT) + + + + + + | Component | Value | Ref Range | Performed | Pathologist | | | | | At | Signature | + + + + + + | Glucose, | 169 (H)Comment: Testing | 65 - 99 mg/dL | [facility] | | | POC | performed at [facility];[address] | | LABORATORY | | | | [address];[place] | | | | | | [address] | | | | + + + + + + + + | Specimen | + + | | + + + + + + + | Performing | Address | City/State/Zipcode | Phone Number | | Organization | | | | + + + + + | [facility] | [address] | [place] [address] | [phone] | + + + + + POC [...] | | | POC | performed at [facility];[address] | | LABORATORY | | | | [address];[place], [place] | | | | | | [address] | | | | + + + + + + + + | Specimen | + + | | + + + + + + + | Performing | Address | City/State/Zipcode | Phone Number | | Organization | | | | + + + + + | [facility] | [address] | [place] [address] | [phone] | + + + + + POC [...] | | | POC | performed at [facility];[address] | | LABORATORY | | | | [address];[place] | | | | | | [address] | | | | + + + + + + + + | Specimen | + + | | + + + + + + + | Performing | Address | City/State/Zipcode | Phone Number | | Organization | | | | + + + + + | [facility] | [address] | [place] [address] | [phone] | + + + + + POC Glucose (02/23/2019 9:29 AM PDT) + + + + + + | Component | Value | Ref Range | Performed | Pathologist | | | | | At | Signature | + + + + + + | Glucose, | 165 (H)Comment: Testing | 65 - 99 mg/dL | [facility] | | | POC | performed at [facility];[address] | | LABORATORY | | | | [address];[place] | | | | | | [address] | | | | + + + + + + + + | Specimen | + + | | + + + + + + + | Performing | Address | City/State/Zipcode | Phone Number | | Organization | | | | + + + + + | [facility] | [address] | [place] [address] | [phone] | + + + + + PTT (02/23/2019 4:24 AM PDT) + + + + + + | Component | Value | Ref Range | Performed | Pathologist | | | | | At | Signature | + + + + + + | PTT | 56 (H)Comment: Testing | 23 - 32 seconds | [facility] | | | | performed at [facility];[address] | | LABORATORY | | | | [address];[place] | | | | | | [address] | | | | + + + + + + + + | Specimen | + + | | + + + + + + + | Performing | Address | City/State/Zipcode | Phone Number | | Organization | | | | + + + + + | [facility] | [address] | [place] [address] | [phone] | + + + + + Protime [...] | | | | | performed at [facility];[address] | | | | | | [address];[place] | | | | | | [address] | | | | + + + + + + + + | Specimen | + + | Blood | + + + + + + + | Performing | Address | City/State/Zipcode | Phone Number | | Organization | | | | + + + + + | [facility] | [address] | [place] [address] | [phone] | + + + + + Magnesium (02/23/2019 4:24 AM PDT) + + + + + + | Component | Value | Ref Range | Performed | Pathologist | | | | | At | Signature | + + + + + + | Magnesium | 2.0Comment: Testing | 1.7 - 2.4 mg/dL | [facility] | | | | performed at [facility], [address] | | LABORATORY | | | | [address], | | | | | | [place] [address] | | | | + + + + + + + + | Specimen | + + | Blood | + + + + + + + | Performing | Address | City/State/Zipcode | Phone Number | | Organization | | | | + + + + + | [facility] | [address] | [place] [address] | [phone] | + + + + + CBC [...] | | | Absolute | performed at [facility], [address] | [address] | LABORATORY | | | | [facility], | | | | | | [place] [address] | | | | + + + + + + + + | Specimen | + + | Blood | + + + + + + + | Performing | Address | City/State/Zipcode | Phone Number | | Organization | | | | + + + + + | [facility] | [address] | [place] [address] | [phone] | + + + + + Basic [...] 53 (L)Comment: GFR <60: | >60 | [facility] | | | GFR | [...] W | | | | | | [facility], | | | | | | [place] [address] | | | | + + + + + + + + | Specimen | + + | Blood | + + + + + + + | Performing | Address | City/State/Zipcode | Phone Number | | Organization | | | | + + + + + | [facility] | [address] | [place] [address] | [phone] | + + + + + PTT (02/22/2019 10:58 PM PDT) + + + + + + | Component | Value | Ref Range | Performed | Pathologist | | | | | At | Signature | + + + + + + | PTT | 50 (H)Comment: Testing | 23 - 32 seconds | [facility] | | | | performed at [facility];[address] | LABORATORY | | [address];[place] | | | | | | [address] | | | | + + + + + + + + | Specimen | + + | Blood | + + + + + + + | Performing | Address | City/State/Zipcode | Phone Number | | Organization | | | | + + + + + | [facility] | [address] | [place] [address] | [phone] | + + + + + POC [...] | | | POC | performed at [facility];[address] | | LABORATORY | | | | [address];[place] | | | | | | [address] | | | | + + + + + + + + | Specimen | + + | | + + + + + + + | Performing | Address | City/State/Zipcode | Phone Number | | Organization | | | | + + + + + | [facility] | [address] | [place] [address] | [phone] | + + + + + POC [...] | | | POC | performed at [facility];[address] | | LABORATORY | | | | [address];[place], [place] | | | | | | [address] | | | | + + + + + + + + | Specimen | + + | | + + + + + + + | Performing | Address | City/State/Zipcode | Phone Number | | Organization | | | | + + + + + | [facility] | [address] | [place] [address] | [phone] | + + + + + PTT (02/22/2019 4:55 PM PDT) + + + + + + | Component | Value | Ref Range | Performed | Pathologist | | | | | At | Signature | + + + + + + | PTT | 41 (H)Comment: Testing | 23 - 32 seconds | [facility] | | | | performed at [facility];[address] | | LABORATORY | | | | [address];[place] | | | | | | [address] | | | | + + + + + + + + | Specimen | + + | Blood | + + + + + + + | Performing | Address | City/State/Zipcode | Phone Number | | Organization | | | | + + + + + | [facility] | [address] | [place] [address] | [phone] | + + + + + Potassium (02/22/2019 12:15 PM PDT) + + + + + + | Component | Value | Ref Range | Performed | Pathologist | | | | | At | Signature | + + + + + + | K | 4.0Comment: Testing | 3.5 - 4.9 | [facility] | | | | performed at [facility];888 | mmol/L | LABORATORY | | | | [address];[place], [place] | | | | | | [address] | | | | + + + + + + + + | Specimen | + + | Blood | + + + + + + + | Performing | Address | City/State/Zipcode | Phone Number | | Organization | | | | + + + + + | [facility] | [address] | [place] [address] | [phone] | + + + + + POC [...] | | | POC | performed at [facility];[address] | | LABORATORY | | | | [address];[place], [place] | | | | | | [address] | | | | + + + + + + + + | Specimen | + + | | + + + + + + + | Performing | Address | City/State/Zipcode | Phone Number | | Organization | | | | + + + + + | [facility] | [address] | [place] [address] | [phone] | + + + + + PTT (02/22/2019 10:19 AM PDT) + + + + + + | Component | Value | Ref Range | Performed | Pathologist | | | | | At | Signature | + + + + + + | PTT | 31Comment: Testing | 23 - 32 seconds | [facility] | | | | performed at [facility];[address] | | LABORATORY | | | | [address];[place] | | | | | | [address] | | | | + + + + + + + + | Specimen | + + | Blood | + + + + + + + | Performing | Address | City/State/Zipcode | Phone Number | | Organization | | | | + + + + + | [facility] | [address] | [place] [address] | [phone] | + + + + + POC Glucose (02/22/2019 7:49 AM PDT) + + + + + + | Component | Value | Ref Range | Performed | Pathologist | | | | | At | Signature | + + + + + + | Glucose, | 188 (H)Comment: Testing | 65 - 99 mg/dL | [facility] | | | POC | performed at [facility];[address] | | LABORATORY | | | | [address];[place] | | | | | | [address] | | | | + + + + + + + + | Specimen | + + | | + + + + + + + | Performing | Address | City/State/Zipcode | Phone Number | | Organization | | | | + + + + + | [facility] | [address] | [place] [address] | [phone] | + + + + + Protime [...] | | | | | performed at [facility] | | | | | | [address] [facility];[place], [place] | | | | | | [address] | | | | + + + + + + + + | Specimen | + + | Blood | + + + + + + + | Performing | Address | City/State/Zipcode | Phone Number | | Organization | | | | + + + + + | [facility] | [address] | [place] [address] | [phone] | + + + + + Magnesium (02/22/2019 4:02 AM PDT) + + + + + + | Component | Value | Ref Range | Performed | Pathologist | | | | | At | Signature | + + + + + + | Magnesium | 1.8Comment: Testing | 1.7 - 2.4 mg/dL | [facility] | | | | performed at [facility], [address] | | LABORATORY | | | | [address], | | | | | | [place] [address] | | | | + + + + + + + + | Specimen | + + | Blood | + + + + + + + | Performing | Address | City/State/Zipcode | Phone Number | | Organization | | | | + + + + + | [facility] | [address] | [place] [address] | [phone] | + + + + + CBC [...] | | | Absolute | performed at [facility], [address] | K/uL | LABORATORY | | | | [address], | | | | | | [place] [address] | | | | + + + + + + + + | Specimen | + + | Blood | + + + + + + + | Performing | Address | City/State/Zipcode | Phone Number | | Organization | | | | + + + + + | [facility] | [address] | [place] [address] | [phone] | + + + + + Basic [...] | | | | | [place] [address] | | | | + + + + + + + + | Specimen | + + | Blood | + + + + + + + | Performing | Address | City/State/Zipcode | Phone Number | | Organization | | | | + + + + + | [facility] | [address] | [place] [address] | [phone] | + + + + + POC [...] | | | POC | performed at [facility];[address] | | LABORATORY | | | | [address];[place] | | | | | | [address] | | | | + + + + + + + + | Specimen | + + | | + + + + + + + | Performing | Address | City/State/Zipcode | Phone Number | | Organization | | | | + + + + + | [facility] | [address] | [place] [address] | [phone] | + + + + + POC [...] | | | POC | performed at [facility];[address] | | LABORATORY | | | | [address];[place] | | | | | | [address] | | | | + + + + + + + + | Specimen | + + | | + + + + + + + | Performing | Address | City/State/Zipcode | Phone Number | | Organization | | | | + + + + + | [facility] | [address] | [place] [address] | [phone] | + + + + + Protime INR (02/21/2019 3:01 PM PDT) + + + + + + | Component | Value | Ref Range | Performed | Pathologist | | | | | At | Signature | + + + + + + | INR | 1.1Comment: REFERENCE | | [facility] | | | | RANGE:0.9 [...] | | | | | performed at [facility];[address] | | | | | | [address];[place] | | | | | | [address] | | | | + + + + + + + + | Specimen | + + | Blood | + + + + + + + | Performing | Address | City/State/Zipcode | Phone Number | | Organization | | | | + + + + + | [facility] | [address] | [place] [address] | [phone] | + + + + + POC Glucose (02/21/2019 12:39 PM PDT) + + + + + + | Component | Value | Ref Range | Performed | Pathologist | | | | | At | Signature | + + + + + + | Glucose, | 93Comment: Testing | 65 - 99 mg/dL | [facility] | | | POC | performed at [facility];[address] | | LABORATORY | | | | [address];[place], [place] | | | | | | [address] | | | | + + + + + + + + | Specimen | + + | | + + + + + + + | Performing | Address | City/State/Zipcode | Phone Number | | Organization | | | | + + + + + | [facility] | [address] | [place] [address] | [phone] | + + + + + ECHO [...] | | | POC | performed at [facility];[address] | | LABORATORY | | | | [address];[place] | | | | | | [address] | | | | + + + + + + + + | Specimen | + + | | + + + + + + + | Performing | Address | City/State/Zipcode | Phone Number | | Organization | | | | + + + + + | [facility] | [address] | [place] [address] | [phone] | + + + + + POC Glucose (02/21/2019 8:10 AM PDT) + + + + + + | Component | Value | Ref Range | Performed | Pathologist | | | | | At | Signature | + + + + + + | Glucose, | 205 (H)Comment: Testing | 65 - 99 mg/dL | [facility] | | | POC | performed at [facility];[address] | | LABORATORY | | | | [address];[place] | | | | | | [address] | | | | + + + + + + + + | Specimen | + + | | + + + + + + + | Performing | Address | City/State/Zipcode | Phone Number | | Organization | | | | + + + + + | [facility] | [address] | [place] [address] | [phone] | + + + + + Magnesium (02/21/2019 5:46 AM PDT) + + + + + + | Component | Value | Ref Range | Performed | Pathologist | | | | | At | Signature | + + + + + + | Magnesium | 2.0Comment: Testing | 1.7 - 2.4 mg/dL | [facility] | | | | performed at [facility], [address] | | LABORATORY | | | | [address], | | | | | | [place] [address] | | | | + + + + + + + + | Specimen | + + | Blood | + + + + + + + | Performing | Address | City/State/Zipcode | Phone Number | | Organization | | | | + + + + + | [facility] | [address] | [place] [address] | [phone] | + + + + + Basic [...] 53 (L)Comment: GFR <60: | >60 | [facility] | | | GFR | [...] W | | | | | | [facility], | | | | | | [place] [address] | | | | + + + + + + + + | Specimen | + + | Blood | + + + + + + + | Performing | Address | City/State/Zipcode | Phone Number | | Organization | | | | + + + + + | [facility] | [address] | [place] [address] | [phone] | + + + + + CBC [...] | | | Absolute | performed at [facility], [address] | K/uL | LABORATORY | | | | [address], | | | | | | [place] [address] | | | | + + + + + + + + | Specimen | + + | Blood | + + + + + + + | Performing | Address | City/State/Zipcode | Phone Number | | Organization | | | | + + + + + | [facility] | [address] | [place] [address] | [phone] | + + + + + POC Glucose (02/20/2019 9:21 PM PDT) + + + + + + | Component | Value | Ref Range | Performed | Pathologist | | | | | At | Signature | + + + + + + | Glucose, | 176 (H)Comment: Testing | 65 - 99 mg/dL | [facility] | | | POC | performed at [facility];[address] | | LABORATORY | | | | [address];[place] | | | | | | [address] | | | | + + + + + + + + | Specimen | + + | | + + + + + + + | Performing | Address | City/State/Zipcode | Phone Number | | Organization | | | | + + + + + | [facility] | [address] | [place] [address] | [phone] | + + + + + POC Glucose (02/20/2019 6:24 PM PDT) + + + + + + | Component | Value | Ref Range | Performed | Pathologist | | | | | At | Signature | + + + + + + | Glucose, | 178 (H)Comment: Testing | 65 - 99 mg/dL | [facility] | | | POC | performed at [facility];[address] | | LABORATORY | | | | [address];[place], [place] | | | | | | [address] | | | | + + + + + + + + | Specimen | + + | | + + + + + + + | Performing | Address | City/State/Zipcode | Phone Number | | Organization | | | | + + + + + | [facility] | [address] | [place] [address] | [phone] | + + + + + POC [...] | | | POC | performed at [facility];[address] | | LABORATORY | | | | [address];[place], [place] | | | | | | [address] | | | | + + + + + + + + | Specimen | + + | | + + + + + + + | Performing | Address | City/State/Zipcode | Phone Number | | Organization | | | | + + + + + | [facility] | [address] | [place] [address] | [phone] | + + + + + POC [...] | | | POC | performed at [facility];[address] | | LABORATORY | | | | [address];[place] | | | | | | [address] | | | | + + + + + + + + | Specimen | + + | | + + + + + + + | Performing | Address | City/State/Zipcode | Phone Number | | Organization | | | | + + + + + | [facility] | [address] | [place] [address] | [phone] | + + + + + POC Glucose (02/20/2019 8:38 AM PDT) + + + + + + | Component | Value | Ref Range | Performed | Pathologist | | | | | At | Signature | + + + + + + | Glucose, | 165 (H)Comment: Testing | 65 - 99 mg/dL | [facility] | | | POC | performed at [facility];[address] | | LABORATORY | | | | [address];[place] | | | | | | [address] | | | | + + + + + + + + | Specimen | + + | | + + + + + + + | Performing | Address | City/State/Zipcode | Phone Number | | Organization | | | | + + + + + | [facility] | [address] | [place] [address] | [phone] | + + + + + XR [...] Testing | 1.7 - 2.4 mg/dL | [facility] | | | | performed at [facility], [address] | | LABORATORY | | | | [address], | | | | | | [place] [address] | | | | + + + + + + + + | Specimen | + + | Blood | + + + + + + + | Performing | Address | City/State/Zipcode | Phone Number | | Organization | | | | + + + + + | [facility] | [address] | [place] [address] | [phone] | + + + + + CBC [...] | | | Absolute | performed at [facility], [address] | K/uL | LABORATORY | | | | [address], | | | | | | [place] [address] | | | | + + + + + + + + | Specimen | + + | Blood | + + + + + + + | Performing | Address | City/State/Zipcode | Phone Number | | Organization | | | | + + + + + | [facility] | [address] | [place] [address] | [phone] | + + + + + Basic [...] 8.3 (L) | 8.5 - 10.5 | [facility] | | | | | mg/dL | LABORATORY | | + + + + + + | Estimated | 43 (L)Comment: GFR <60: | >60 | [facility] | | | GFR | [...] | | | | | | [facility] traceable | | | | | | equation.Testing | | | | | | performed at [facility], [address] | | | | | | [facility], | | | | | | [place] [address] | | | | + + + + + + + + | Specimen | + + | Blood | + + + + + + + | Performing | Address | City/State/Zipcode | Phone Number | | Organization | | | | + + + + + | [facility] | [address] | [place] [address] | [phone] | + + + + + POC [...] | | | POC | performed at [facility];[address] | | LABORATORY | | | | [address];[place] | | | | | | [address] | | | | + + + + + + + + | Specimen | + + | | + + + + + + + | Performing | Address | City/State/Zipcode | Phone Number | | Organization | | | | + + + + + | [facility] | [address] | [place] [address] | [phone] | + + + + + POC [...] | | | POC | performed at [facility];[address] | | LABORATORY | | | | [address];[place] | | | | | | [address] | | | | + + + + + + + + | Specimen | + + | | + + + + + + + | Performing | Address | City/State/Zipcode | Phone Number | | Organization | | | | + + + + + | [facility] | [address] | [place] [address] | [phone] | + + + + + POC Glucose (02/19/2019 11:34 AM PDT) + + + + + + | Component | Value | Ref Range | Performed | Pathologist | | | | | At | Signature | + + + + + + | Glucose, | 135 (H)Comment: Testing | 65 - 99 mg/dL | [facility] | | | POC | performed at [facility];[address] | | LABORATORY | | | | [address];[place] | | | | | | [address] | | | | + + + + + + + + | Specimen | + + | | + + + + + + + | Performing | Address | City/State/Zipcode | Phone Number | | Organization | | | | + + + + + | [facility] | [address] | [place] [address] | [phone] | + + + + + POC [...] | | | POC | performed at [facility];[address] | | LABORATORY | | | | [address];[place], [place] | | | | | | [address] | | | | + + + + + + + + | Specimen | + + | | + + + + + + + | Performing | Address | City/State/Zipcode | Phone Number | | Organization | | | | + + + + + | [facility] | [address] | [place] [address] | [phone] | + + + + + XR [...] | | | | | [place] [address] | | | | + + + + + + + + | Specimen | + + | Blood | + + + + + + + | Performing | Address | City/State/Zipcode | Phone Number | | Organization | | | | + + + + + | [facility] | [address] | [place] [address] | [phone] | + + + + + CBC [...] | | | | | [place] [address] | | | | + + + + + + + + | Specimen | + + | Blood | + + + + + + + | Performing | Address | City/State/Zipcode | Phone Number | | Organization | | | | + + + + + | [facility] | [address] | [place] [address] | [phone] | + + + + + Basic [...] W | | | | | | [facility], | | | | | | [place] [address] | | | | + + + + + + + + | Specimen | + + | Blood | + + + + + + + | Performing | Address | City/State/Zipcode | Phone Number | | Organization | | | | + + + + + | [facility] | [address] | [place] [address] | [phone] | + + + + + POC [...] | | | POC | performed at [facility];[address] | | LABORATORY | | | | [address];[place] | | | | | | [address] | | | | + + + + + + + + | Specimen | + + | | + + + + + + + | Performing | Address | City/State/Zipcode | Phone Number | | Organization | | | | + + + + + | [facility] | [address] | [place] [address] | [phone] | + + + + + POC [...] | | | POC | performed at [facility];[address] | | LABORATORY | | | | [address];[place], [place] | | | | | | [address] | | | | + + + + + + + + | Specimen | + + | | + + + + + + + | Performing | Address | City/State/Zipcode | Phone Number | | Organization | | | | + + + + + | [facility] | [address] | [place] [address] | [phone] | + + + + + POC [...] | | | POC | performed at [facility];[address] | | LABORATORY | | | | [address];[place] | | | | | | [address] | | | | + + + + + + + + | Specimen | + + | | + + + + + + + | Performing | Address | City/State/Zipcode | Phone Number | | Organization | | | | + + + + + | [facility] | [address] | [place] [address] | [phone] | + + + + + POC Glucose (02/18/2019 8:37 AM PDT) + + + + + + | Component | Value | Ref Range | Performed | Pathologist | | | | | At | Signature | + + + + + + | Glucose, | 89Comment: Testing | 65 - 99 mg/dL | [facility] | | | POC | performed at [facility];[address] | | LABORATORY | | | | [address];[place] | | | | | | [address] | | | | + + + + + + + + | Specimen | + + | | + + + + + + + | Performing | Address | City/State/Zipcode | Phone Number | | Organization | | | | + + + + + | [facility] | [address] | [place] [address] | [phone] | + + + + + XR [...] | | | | performed at [facility], [address] | | LABORATORY | | | | [address], | | | | | | [place] [address] | | | | + + + + + + + + | Specimen | + + | Blood | + + + + + + + | Performing | Address | City/State/Zipcode | Phone Number | | Organization | | | | + + + + + | [facility] | [address] | [place] [address] | [phone] | + + + + + CBC [...] | | | | | [place] [address] | | | | + + + + + + + + | Specimen | + + | Blood | + + + + + + + | Performing | Address | City/State/Zipcode | Phone Number | | Organization | | | | + + + + + | [facility] | [address] | [place] [address] | [phone] | + + + + + Basic [...] 7.9 (L) | 8.5 - 10.5 | [facility] | | | | | mg/dL | LABORATORY | | + + + + + + | Estimated | 26 (L)Comment: GFR <60: | >60 | [facility] | | | GFR | [...] W | | | | | | [facility], | | | | | | [place] [address] | | | | + + + + + + + + | Specimen | + + | Blood | + + + + + + + | Performing | Address | City/State/Zipcode | Phone Number | | Organization | | | | + + + + + | [facility] | [address] | [place] [address] | [phone] | + + + + + POC Glucose (02/17/2019 10:25 PM PDT) + + + + + + | Component | Value | Ref Range | Performed | Pathologist | | | | | At | Signature | + + + + + + | Glucose, | 140 (H)Comment: Testing | 65 - 99 mg/dL | [facility] | | | POC | performed at [facility];[address] | | LABORATORY | | | | [address];[place] | | | | | | [address] | | | | + + + + + + + + | Specimen | + + | | + + + + + + + | Performing | Address | City/State/Zipcode | Phone Number | | Organization | | | | + + + + + | [facility] | [address] | [place] [address] | [phone] | + + + + + POC [...] | | | POC | performed at [facility];[address] | | LABORATORY | | | | [address];[place], [place] | | | | | | [address] | | | | + + + + + + + + | Specimen | + + | | + + + + + + + | Performing | Address | City/State/Zipcode | Phone Number | | Organization | | | | + + + + + | [facility] | [address] | [place] [address] | [phone] | + + + + + POC Glucose (02/17/2019 1:25 PM PDT) + + + + + + | Component | Value | Ref Range | Performed | Pathologist | | | | | At | Signature | + + + + + + | Glucose, | 139 (H)Comment: Testing | 65 - 99 mg/dL | [facility] | | | POC | performed at [facility];[address] | | LABORATORY | | | | [address];[place] | | | | | | [address] | | | | + + + + + + + + | Specimen | + + | | + + + + + + + | Performing | Address | City/State/Zipcode | Phone Number | | Organization | | | | + + + + + | [facility] | [address] | [place] [address] | [phone] | + + + + + POC Glucose (02/17/2019 9:42 AM PDT) + + + + + + | Component | Value | Ref Range | Performed | Pathologist | | | | | At | Signature | + + + + + + | Glucose, | 99Comment: Testing | 65 - 99 mg/dL | [facility] | | | POC | performed at [facility];[address] | | LABORATORY | | | | [address];[place] | | | | | | [address] | | | | + + + + + + + + | Specimen | + + | | + + + + + + + | Performing | Address | City/State/Zipcode | Phone Number | | Organization | | | | + + + + + | [facility] | [address] | [place] [address] | [phone] | + + + + + Magnesium (02/17/2019 4:44 AM PDT) + + + + + + | Component | Value | Ref Range | Performed | Pathologist | | | | | At | Signature | + + + + + + | Magnesium | 2.8 (H)Comment: Testing | 1.7 - 2.4 mg/dL | [facility] | | | | performed at [facility], [address] | | LABORATORY | | | | [address], | | | | | | [place] [address] | | | | + + + + + + + + | Specimen | + + | Blood | + + + + + + + | Performing | Address | City/State/Zipcode | Phone Number | | Organization | | | | + + + + + | [facility] | [address] | [place] [address] | [phone] | + + + + + CBC [...] | | | Absolute | performed at [facility], [address] | K/uL | LABORATORY | | | | [facility], | | | | | | [place] [address] | | | | + + + + + + + + | Specimen | + + | Blood | + + + + + + + | Performing | Address | City/State/Zipcode | Phone Number | | Organization | | | | + + + + + | [facility] | [address] | [place] [address] | [phone] | + + + + + Basic [...] 26 (L)Comment: GFR <60: | >60 | [facility] | | | GFR | [...] W | | | | | | [facility], | | | | | | [place] [address] | | | | + + + + + + + + | Specimen | + + | Blood | + + + + + + + | Performing | Address | City/State/Zipcode | Phone Number | | Organization | | | | + + + + + | [facility] | [address] | [place] [address] | [phone] | + + + + + XR [...] Testing | 65 - 99 mg/dL | [facility] | | | POC | performed at [facility];888 | | LABORATORY | | | | [address];[place] | | | | | | [address] | | | | + + + + + + + + | Specimen | + + | | + + + + + + + | Performing | Address | City/State/Zipcode | Phone Number | | Organization | | | | + + + + + | [facility] | [address] | [place] [address] | [phone] | + + + + + POC [...] | | | POC | performed at [facility];[address] | | LABORATORY | | | | [address];[place], [place] | | | | | | [address] | | | | + + + + + + + + | Specimen | + + | | + + + + + + + | Performing | Address | City/State/Zipcode | Phone Number | | Organization | | | | + + + + + | [facility] | [address] | [place] [address] | [phone] | + + + + + POC [...] | | | POC | performed at [facility];[address] | | LABORATORY | | | | [address];[place] | | | | | | [address] | | | | + + + + + + + + | Specimen | + + | | + + + + + + + | Performing | Address | City/State/Zipcode | Phone Number | | Organization | | | | + + + + + | [facility] | [address] | [place] [address] | [phone] | + + + + + Potassium (02/16/2019 12:45 PM PDT) + + + + + + | Component | Value | Ref Range | Performed | Pathologist | | | | | At | Signature | + + + + + + | K | 5.6 (H)Comment: Testing | 3.5 - 4.9 | [facility] | | | | performed at [facility];888 | mmol/L | LABORATORY | | | | [address];[place] | | | | | | [address] | | | | + + + + + + + + | Specimen | + + | Blood | + + + + + + + | Performing | Address | City/State/Zipcode | Phone Number | | Organization | | | | + + + + + | [facility] | [address] | [place] [address] | [phone] | + + + + + POC [...] | | | POC | performed at [facility];[address] | | LABORATORY | | | | [address];[place], [place] | | | | | | [address] | | | | + + + + + + + + | Specimen | + + | | + + + + + + + | Performing | Address | City/State/Zipcode | Phone Number | | Organization | | | | + + + + + | [facility] | [address] | [place] [address] | [phone] | + + + + + POC Glucose (02/16/2019 9:25 AM PDT) + + + + + + | Component | Value | Ref Range | Performed | Pathologist | | | | | At | Signature | + + + + + + | Glucose, | 88Comment: Testing | 65 - 99 mg/dL | [facility] | | | POC | performed at [facility];[address] | | LABORATORY | | | | [address];[place] | | | | | | [address] | | | | + + + + + + + + | Specimen | + + | | + + + + + + + | Performing | Address | City/State/Zipcode | Phone Number | | Organization | | | | + + + + + | [facility] | [address] | [place] [address] | [phone] | + + + + + POC Glucose (02/16/2019 8:44 AM PDT) + + + + + + | Component | Value | Ref Range | Performed | Pathologist | | | | | At | Signature | + + + + + + | Glucose, | 80Comment: Testing | 65 - 99 mg/dL | [facility] | | | POC | performed at [facility];[address] | | LABORATORY | | | | [address];[place] | | | | | | [address] | | | | + + + + + + + + | Specimen | + + | | + + + + + + + | Performing | Address | City/State/Zipcode | Phone Number | | Organization | | | | + + + + + | [facility] | [address] | [place] [address] | [phone] | + + + + + POC [...] | | | POC | performed at [facility];[address] | | LABORATORY | | | | [address];[place] | | | | | | [address] | | | | + + + + + + + + | Specimen | + + | | + + + + + + + | Performing | Address | City/State/Zipcode | Phone Number | | Organization | | | | + + + + + | [facility] | [address] | [place] [address] | [phone] | + + + + + POC Glucose (02/16/2019 6:36 AM PDT) + + + + + + | Component | Value | Ref Range | Performed | Pathologist | | | | | At | Signature | + + + + + + | Glucose, | 133 (H)Comment: Testing | 65 - 99 mg/dL | [facility] | | | POC | performed at [facility];[address] | | LABORATORY | | | | [address];[place] | | | | | | [address] | | | | + + + + + + + + | Specimen | + + | | + + + + + + + | Performing | Address | City/State/Zipcode | Phone Number | | Organization | | | | + + + + + | [facility] | [address] | [place] [address] | [phone] | + + + + + XR [...] KR | | | | performed at [facility];[address] | | LABORATORY | | | | [address];[place], [place] | | | | | | [address] | | | | + + + + + + + + | Specimen | + + | Blood | + + + + + + + | Performing | Address | City/State/Zipcode | Phone Number | | Organization | | | | + + + + + | [facility] | [address] | [place] [address] | [phone] | + + + + + CBC [...] | | | | | [place] [address] | | | | + + + + + + + + | Specimen | + + | Blood | + + + + + + + | Performing | Address | City/State/Zipcode | Phone Number | | Organization | | | | + + + + + | [facility] | [address] | [place] [address] | [phone] | + + + + + Basic [...] | | | | | performed at [facility];[address] | | | | | | [facility];[place], [place] | | | | | | [address] | | | | + + + + + + + + | Specimen | + + | Blood | + + + + + + + | Performing | Address | City/State/Zipcode | Phone Number | | Organization | | | | + + + + + | [facility] | [address] | [place] [address] | [phone] | + + + + + POC Glucose (02/16/2019 4:30 AM PDT) + + + + + + | Component | Value | Ref Range | Performed | Pathologist | | | | | At | Signature | + + + + + + | Glucose, | 121 (H)Comment: Testing | 65 - 99 mg/dL | [facility] | | | POC | performed at [facility];[address] | | LABORATORY | | | | [address];[place] | | | | | | [address] | | | | + + + + + + + + | Specimen | + + | | + + + + + + + | Performing | Address | City/State/Zipcode | Phone Number | | Organization | | | | + + + + + | [facility] | [address] | [place] [address] | [phone] | + + + + + POC [...] | | | POC | performed at [facility];[address] | | LABORATORY | | | | [address];[place], [place] | | | | | | [address] | | | | + + + + + + + + | Specimen | + + | | + + + + + + + | Performing | Address | City/State/Zipcode | Phone Number | | Organization | | | | + + + + + | [facility] | [address] | [place] [address] | [phone] | + + + + + POC [...] | | | POC | performed at [facility];[address] | | LABORATORY | | | | [address];[place] | | | | | | [address] | | | | + + + + + + + + | Specimen | + + | | + + + + + + + | Performing | Address | City/State/Zipcode | Phone Number | | Organization | | | | + + + + + | [facility] | [address] | [place] [address] | [phone] | + + + + + Potassium (02/15/2019 11:39 PM PDT) + + + + + + | Component | Value | Ref Range | Performed | Pathologist | | | | | At | Signature | + + + + + + | K | 4.6Comment: Testing | 3.5 - 4.9 | [facility] | | | | performed at [facility];888 | mmol/L | LABORATORY | | | | [address];[place] | | | | | | [address] | | | | + + + + + + + + | Specimen | + + | Blood | + + + + + + + | Performing | Address | City/State/Zipcode | Phone Number | | Organization | | | | + + + + + | [facility] | [address] | [place] [address] | [phone] | + + + + + Blood [...] | | | Arterial, | performed at [facility];[address] | | LABORATORY | | | POC | [address] [facility];[place], [place] | | | | | | [address] | | | | + + + + + + + + | Specimen | + + | | + + + + + + + | Performing | Address | City/State/Zipcode | Phone Number | | Organization | | | | + + + + + | [facility] | [address] | [place] [address] | [phone] | + + + + + POC Glucose (02/15/2019 11:28 PM PDT) + + + + + + | Component | Value | Ref Range | Performed | Pathologist | | | | | At | Signature | + + + + + + | Glucose, | 131 (H)Comment: Testing | 65 - 99 mg/dL | [facility] | | | POC | performed at [facility];[address] | | LABORATORY | | | | [address];[place] | | | | | | [address] | | | | + + + + + + + + | Specimen | + + | | + + + + + + + | Performing | Address | City/State/Zipcode | Phone Number | | Organization | | | | + + + + + | [facility] | [address] | [place] [address] | [phone] | + + + + + POC [...] | | | POC | performed at [facility];[address] | | LABORATORY | | | | [address];[place], [place] | | | | | | [address] | | | | + + + + + + + + | Specimen | + + | | + + + + + + + | Performing | Address | City/State/Zipcode | Phone Number | | Organization | | | | + + + + + | [facility] | [address] | [place] [address] | [phone] | + + + + + POC Glucose (02/15/2019 9:17 PM PDT) + + + + + + | Component | Value | Ref Range | Performed | Pathologist | | | | | At | Signature | + + + + + + | Glucose, | 141 (H)Comment: Testing | 65 - 99 mg/dL | [facility] | | | POC | performed at [facility];[address] | | LABORATORY | | | | [address];[place], [place] | | | | | | [address] | | | | + + + + + + + + | Specimen | + + | | + + + + + + + | Performing | Address | City/State/Zipcode | Phone Number | | Organization | | | | + + + + + | [facility] | [address] | [place] [address] | [phone] | + + + + + POC [...] | | | | | performed at [facility] | | | | | | [address];[place], [place] | | | | | | [address] | | | | + + + + + + + + | Specimen | + + | | + + + + + + + | Performing | Address | City/State/Zipcode | Phone Number | | Organization | | | | + + + + + | [facility] | [address] | [place] [address] | [phone] | + + + + + Blood [...] 3 (H) | 0.0 - 2.0 | [facility] | | | Deficit | | mmol/L | LABORATORY | | | mmol/L | | | | | + + + + + + | SO2, | 97Comment: Testing | 95 - 98 % | [facility] | | | Arterial, | performed at [facility];888 | | LABORATORY | | | POC | [address];[place] | | | | | | [address] | | | | + + + + + + + + | Specimen | + + | | + + + + + + + | Performing | Address | City/State/Zipcode | Phone Number | | Organization | | | | + + + + + | [facility] | [address] | [place] [address] | [phone] | + + + + + Potassium (02/15/2019 8:02 PM PDT) + + + + + + | Component | Value | Ref Range | Performed | Pathologist | | | | | At | Signature | + + + + + + | K | 3.7Comment: Testing | 3.5 - 4.9 | [facility] | | | | performed at [facility];888 | mmol/L | LABORATORY | | | | [address];[place] | | | | | | [address] | | | | + + + + + + + + | Specimen | + + | Blood | + + + + + + + | Performing | Address | City/State/Zipcode | Phone Number | | Organization | | | | + + + + + | [facility] | [address] | [place] [address] | [phone] | + + + + + POC Glucose (02/15/2019 6:47 PM PDT) + + + + + + | Component | Value | Ref Range | Performed | Pathologist | | | | | At | Signature | + + + + + + | Glucose, | 91Comment: Testing | 65 - 99 mg/dL | [facility] | | | POC | performed at [facility];[address] | | LABORATORY | | | | [address];[place], [place] | | | | | | [address] | | | | + + + + + + + + | Specimen | + + | | + + + + + + + | Performing | Address | City/State/Zipcode | Phone Number | | Organization | | | | + + + + + | [facility] | [address] [facility] | [place] [address] | [phone] | + + + + + Blood [...] | | | Arterial, | performed at [facility];[address] | | LABORATORY | | | POC | [address];[place], [place] | | | | | | [address] | | | | + + + + + + + + | Specimen | + + | | + + + + + + + | Performing | Address | City/State/Zipcode | Phone Number | | Organization | | | | + + + + + | [facility] | [address] | [place] [address] | [phone] | + + + + + Blood [...] | | | Arterial, | performed at [facility];[address] | | LABORATORY | | | POC | [address] [facility];[place], [place] | | | | | | [address] | | | | + + + + + + + + | Specimen | + + | | + + + + + + + | Performing | Address | City/State/Zipcode | Phone Number | | Organization | | | | + + + + + | [facility] | [address] | [place] [address] | [phone] | + + + + + POC Glucose (02/15/2019 4:43 PM PDT) + + + + + + | Component | Value | Ref Range | Performed | Pathologist | | | | | At | Signature | + + + + + + | Glucose, | 137 (H)Comment: Testing | 65 - 99 mg/dL | [facility] | | | POC | performed at [facility];888 | | LABORATORY | | | | [address];[place] | | | | | | [address] | | | | + + + + + + + + | Specimen | + + | | + + + + + + + | Performing | Address | City/State/Zipcode | Phone Number | | Organization | | | | + + + + + | [facility] | [address] | [place] [address] | [phone] | + + + + + Blood [...] | | | Arterial, | performed at [facility];[address] | | LABORATORY | | | POC | [address];[place], [place] | | | | | | [address] | | | | + + + + + + + + | Specimen | + + | | + + + + + + + | Performing | Address | City/State/Zipcode | Phone Number | | Organization | | | | + + + + + | [facility] | [address] | [place] [address] | [phone] | + + + + + Potassium (02/15/2019 4:03 PM PDT) + + + + + + | Component | Value | Ref Range | Performed | Pathologist | | | | | At | Signature | + + + + + + | K | 3.9Comment: Testing | 3.5 - 4.9 | [facility] | | | | performed at [facility];888 | mmol/L | LABORATORY | | | | [address];[place], [place] | | | | | | [address] | | | | + + + + + + + + | Specimen | + + | Blood | + + + + + + + | Performing | Address | City/State/Zipcode | Phone Number | | Organization | | | | + + + + + | [facility] | [address] | [place] [address] | [phone] | + + + + + POC Glucose (02/15/2019 3:39 PM PDT) + + + + + + | Component | Value | Ref Range | Performed | Pathologist | | | | | At | Signature | + + + + + + | Glucose, | 139 (H)Comment: Testing | 65 - 99 mg/dL | [facility] | | | POC | performed at [facility];[address] | | LABORATORY | | | | [address];[place] | | | | | | [address] | | | | + + + + + + + + | Specimen | + + | | + + + + + + + | Performing | Address | City/State/Zipcode | Phone Number | | Organization | | | | + + + + + | [facility] | [address] | [place] [address] | [phone] | + + + + + Blood [...] | | | Arterial, | performed at [facility];888 | | LABORATORY | | | POC | [address] [facility];[place], [place] | | | | | | [address] | | | | + + + + + + + + | Specimen | + + | | + + + + + + + | Performing | Address | City/State/Zipcode | Phone Number | | Organization | | | | + + + + + | [facility] | [address] | [place] [address] | [phone] | + + + + + POC Glucose (02/15/2019 2:43 PM PDT) + + + + + + | Component | Value | Ref Range | Performed | Pathologist | | | | | At | Signature | + + + + + + | Glucose, | 123 (H)Comment: Testing | 65 - 99 mg/dL | [facility] | | | POC | performed at [facility];[address] | | LABORATORY | | | | [address];[place] | | | | | | [address] | | | | + + + + + + + + | Specimen | + + | | + + + + + + + | Performing | Address | City/State/Zipcode | Phone Number | | Organization | | | | + + + + + | [facility] | [address] | [place] [address] | [phone] | + + + + + Calcium, [...] [facility] | | | | performed at [facility];[address] | | LABORATORY | | | | [address];[place] | | | | | | [address] | | | | + + + + + + + + | Specimen | + + | Blood | + + + + + + + | Performing | Address | City/State/Zipcode | Phone Number | | Organization | | | | + + + + + | [facility] | [address] | [place] [address] | [phone] | + + + + + PTT (02/15/2019 1:45 PM PDT) + + + + + + | Component | Value | Ref Range | Performed | Pathologist | | | | | At | Signature | + + + + + + | PTT | 26Comment: Testing | 23 - 32 seconds | [facility] | | | | performed at [facility];888 | | LABORATORY | | | | [address];[place] | | | | | | [address] | | | | + + + + + + + + | Specimen | + + | Blood | + + + + + + + | Performing | Address | City/State/Zipcode | Phone Number | | Organization | | | | + + + + + | [facility] | [address] | [place] [address] | [phone] | + + + + + Protime [...] | | | | | performed at [facility] | | | | | | [address];[place], [place] | | | | | | [address] | | | | + + + + + + + + | Specimen | + + | Blood | + + + + + + + | Performing | Address | City/State/Zipcode | Phone Number | | Organization | | | | + + + + + | [facility] | [address] | [place] [address] | [phone] | + + + + + Magnesium (02/15/2019 1:45 PM PDT) + + + + + + | Component | Value | Ref Range | Performed | Pathologist | | | | | At | Signature | + + + + + + | Magnesium | 3.0 (H)Comment: Testing | 1.7 - 2.4 mg/dL | [facility] | | | | performed at [facility];[address] | | LABORATORY | | | | [address];[place], [place] | | | | | | [address] | | | | + + + + + + + + | Specimen | + + | Blood | + + + + + + + | Performing | Address | City/State/Zipcode | Phone Number | | Organization | | | | + + + + + | [facility] | [address] | [place] [address] | [phone] | + + + + + Hemoglobin A1C (02/15/2019 1:45 PM PDT) + + + + + + | Component | Value | Ref Range | Performed | Pathologist | | | | | At | Signature | + + + + + + | Hemoglobin | 7.4 (H)Comment: HbA1c | 4.0 - 6.0 % | [facility] | | | A1c | [...] | 166 (H)Comment: | <154 mg/dL | [facility] | | | Average | [...] [address] | | | | | | [address], | | | | | | [place] [address] | | | | + + + + + + + + | Specimen | + + | Blood | + + + + + + + | Performing | Address | City/State/Zipcode | Phone Number | | Organization | | | | + + + + + | [facility] | [address] | [place] [address] | [phone] | + + + + + Fibrinogen (02/15/2019 1:45 PM PDT) + + + + + + | Component | Value | Ref Range | Performed | Pathologist | | | | | At | Signature | + + + + + + | Fibrinogen | 434Comment: Testing | 200 - 450 mg/dL | [facility] | | | | performed at [facility];888 | | LABORATORY | | | | [address];[place] | | | | | | [address] | | | | + + + + + + + + | Specimen | + + | Blood | + + + + + + + | Performing | Address | City/State/Zipcode | Phone Number | | Organization | | | | + + + + + | [facility] | [address] | [place] [address] | [phone] | + + + + + CBC [...] | | | | | performed at [facility] | | | | | | [facility];[place] | | | | | | [address] | | | | + + + + + + + + | Specimen | + + | Blood | + + + + + + + | Performing | Address | City/State/Zipcode | Phone Number | | Organization | | | | + + + + + | [facility] | [address] | [place] [address] | [phone] | + + + + + Basic [...] 7.7 (L) | 8.5 - 10.5 | [facility] | | | | | mg/dL | LABORATORY | | + + + + + + | Estimated | 38 (L)Comment: GFR <60: | >60 | [facility] | | | GFR | [...] | | | | | performed at [facility] | | | | | | [facility];[place], [place] | | | | | | [address] | | | | + + + + + + + + | Specimen | + + | Blood | + + + + + + + | Performing | Address | City/State/Zipcode | Phone Number | | Organization | | | | + + + + + | [facility] | [address] | [place] [address] | [phone] | + + + + + POC [...] (L)Comment: Testing | 13.7 - 16.7 | [facility] | | | POC | performed at [facility];888 | g/dL | LABORATORY | | | | [address];[place], [place] | | | | | | [address] | | | | + + + + + + + + | Specimen | + + | | + + + + + + + | Performing | Address | City/State/Zipcode | Phone Number | | Organization | | | | + + + + + | [facility] | [address] | [place] [address] | [phone] | + + + + + XR [...] | projects 4.1 cm above the fransico. Davenport-Roland catheter tip appears to | | | [...] 4.1 cm | | above the fransico. [place]-Roland catheter tip appears to project at the [...] | | | Arterial, | performed at [facility];888 | | LABORATORY | | | POC | [address];[place] | | | | | | [address] | | | | + + + + + + + + | Specimen | + + | | + + + + + + + | Performing | Address | City/State/Zipcode | Phone Number | | Organization | | | | + + + + + | [facility] | [address] | [place] [address] | [phone] | + + + + + POC [...] | | | POC | performed at [facility];[address] | | LABORATORY | | | | [address];[place], [place] | | | | | | [address] | | | | + + + + + + + + | Specimen | + + | | + + + + + + + | Performing | Address | City/State/Zipcode | Phone Number | | Organization | | | | + + + + + | [facility] | [address] | [place] [address] | [phone] | + + + + + ECG [...] Testing | 95 - 98 % | [facility] | | | Arterial, | performed at [facility];[address] | | LABORATORY | | | POC | [address];[place] | | | | | | [id number] | | | | + + + + + + + + | Specimen | + + | | + + + + + + + | Performing | Address | City/State/Zipcode | Phone Number | | Organization | | | | + + + + + | [facility] | [address] | [place] [address] | [phone] | + + + + + POC [...] | | | POC | performed at [facility];888 | g/dL | LABORATORY | | | | [address];[place], [place] | | | | | | [id number] | | | | + + + + + + + + | Specimen | + + | | + + + + + + + | Performing | Address | City/State/Zipcode | Phone Number | | Organization | | | | + + + + + | [facility] | [address] | [place] [address] | [phone] | + + + + + POC [...] | | | Arterial, | performed at [facility];[address] | | LABORATORY | | | POC | [address];[place] | | | | | | [address] | | | | + + + + + + + + | Specimen | + + | | + + + + + + + | Performing | Address | City/State/Zipcode | Phone Number | | Organization | | | | + + + + + | [facility] | [address] | [place] [address] | [phone] | + + + + + POC ISTAT, CG8, Arterial (02/15/2019 11:31 AM PDT) + + + + + + | Component | Value | Ref Range | Performed | Pathologist | | | | | At | Signature | + + + + + + | pH, | 7.337 (L) | 7.350 - 7.450 | [facility] | | | Arterial, | | | [...] | | | POC | performed at [facility];888 | g/dL | LABORATORY | | | | [address];[place] | | | | | | [id number] | | | | + + + + + + + + | Specimen | + + | | + + + + + + + | Performing | Address | City/State/Zipcode | Phone Number | | Organization | | | | + + + + + | [facility] | [address] | [place] [address] | [phone] | + + + + + POC [...] | | | POC | performed at [facility];888 | g/dL | LABORATORY | | | | [address];[place] | | | | | | [address] | | | | + + + + + + + + | Specimen | + + | | + + + + + + + | Performing | Address | City/State/Zipcode | Phone Number | | Organization | | | | + + + + + | [facility] | [address] [facility] | [place] [address] | [phone] | + + + + + POC [...] | | | Arterial, | performed at [facility];888 | | LABORATORY | | | POC | [address];[place] | | | | | | [address] | | | | + + + + + + + + | Specimen | + + | | + + + + + + + | Performing | Address | City/State/Zipcode | Phone Number | | Organization | | | | + + + + + | [facility] | [address] | [place] [address] | [phone] | + + + + + POC [...] | | | POC | performed at [facility];888 | g/dL | LABORATORY | | | | [address];[place], [place] | | | | | | [address] | | | | + + + + + + + + | Specimen | + + | | + + + + + + + | Performing | Address | City/State/Zipcode | Phone Number | | Organization | | | | + + + + + | [facility] | [address] | [place] [address] | [phone] | + + + + + POC [...] | | | POC | performed at [facility];888 | g/dL | LABORATORY | | | | [address];[place], [place] | | | | | | [address] | | | | + + + + + + + + | Specimen | + + | | + + + + + + + | Performing | Address | City/State/Zipcode | Phone Number | | Organization | | | | + + + + + | [facility] | [address] | [place] [address] | [phone] | + + + + + POC ISTAT, CG8, Arterial (02/15/2019 10:07 AM PDT) + + + + + + | Component | Value | Ref Range | Performed | Pathologist | | | | | At | Signature | + + + + + + | pH, | 7.345 (L) | 7.350 - 7.450 | [facility] | | | Arterial, | | | [...] | | | POC | performed at [facility];888 | g/dL | LABORATORY | | | | [address];[place], [place] | | | | | | [address] | | | | + + + + + + + + | Specimen | + + | | + + + + + + + | Performing | Address | City/State/Zipcode | Phone Number | | Organization | | | | + + + + + | [facility] | [address] | [place] [address] | [phone] | + + + + + POC [...] (L)Comment: Testing | 13.7 - 16.7 | [facility] | | | POC | performed at [facility];888 | g/dL | LABORATORY | | | | [address];[place], [place] | | | | | | [address] | | | | + + + + + + + + | Specimen | + + | | + + + + + + + | Performing | Address | City/State/Zipcode | Phone Number | | Organization | | | | + + + + + | [facility] | [address] | [place] [address] | [phone] | + + + + + POC [...] | | | POC | performed at [facility];888 | g/dL | LABORATORY | | | | [address];[place] | | | | | | [address] | | | | + + + + + + + + | Specimen | + + | | + + + + + + + | Performing | Address | City/State/Zipcode | Phone Number | | Organization | | | | + + + + + | [facility] | [address] | [place] [address] | [phone] | + + + + + POC [...] | | | Arterial, | performed at [facility];888 | | LABORATORY | | | POC | [address];[place], [place] | | | | | | [address] | | | | + + + + + + + + | Specimen | + + | | + + + + + + + | Performing | Address | City/State/Zipcode | Phone Number | | Organization | | | | + + + + + | [facility] | [address] | [place] [address] | [phone] | + + + + + POC ISTAT, CG8, Arterial (02/15/2019 7:50 AM PDT) + + + + + + | Component | Value | Ref Range | Performed | Pathologist | | | | | At | Signature | + + + + + + | pH, | 7.305 (L) | 7.350 - 7.450 | [facility] | | | Arterial, | | | [...] | | | POC | performed at [facility];888 | g/dL | LABORATORY | | | | [address];[place] | | | | | | [address] | | | | + + + + + + + + | Specimen | + + | | + + + + + + + | Performing | Address | City/State/Zipcode | Phone Number | | Organization | | | | + + + + + | [facility] | [address] | [place] [address] | [phone] | + + + + + ECHO [...] | | Name BOB MANCINI Room Number 14416 | | | Patient Number [id number] Date of Study | | | 02/15/2019 Visit Number [id number] Referring | | | Physician LUISANA ALCALA Accession Number [id number] | | | State Tested Nursing Assistant Date of 1965 Interpreting | | | Physician Ed Elmore Age 53 year(s) | | | Nurse Gender Male 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 Mild AI. Avsm-mu-xsxxnlme TR. Mild PI. Ztuoquia-zd-uppcfi PAH. | | | Bilateral pleural effusions [...] = 54mmHg | | | (consistent with rckvkjio-mx-rbseho pulmonary arterial | | | hypertension--reading was consistent with direct PASP measurement via | | | Davenport-Roland catheter). Pulmonic Valve Peak Velocity: 51.33 cm/s [...] = 54mmHg | | | (consistent with skffwpfd-mh-hpovcb pulmonary arterial | | | hypertension--reading was consistent with direct PASP measurement via | | | Davenport-Roland catheter). | | | | | | [...] Demographics Patient Name BOB MANCINI Room Number 89819 | | Patient Number [id number] Date of Study 02/15/2019 Visit Number | | [id number] Referring Physician LUISANA ALCALA Accession Number [id number] | | State Tested Nursing Assistant Date of 1965 Interpreting Physician Ed Elmore | | Age 53 year(s) Nurse Gender Male Stress | | TechnicianProcedureType of Study SHALA procedure:TRANSESOPHAGEAL(SHALA) - | | PERIOPERATIVE.Procedure DateDate: 02/15/2019 Start: 07:41 AMStudy [facility]: [facility] | | Quality: Adequate visualizationPatient Status: RoutineHeight: 70.87 inches Weight: | | 208.12 pounds BSA: 2.14 m^2 BMI: 29.14 kg/m^2Rhythm: Normal Sinus Rhythm HR: 75 bpm BP: | | 110/70 mmHg Conclusions Summary Severely depressed baseline LV global systolic function | | with multiple RWMAs as documented below. LVEF = 25-30%. Mild MR. Mild AI. | | Rpvf-aa-dubmiplp TR. Mild PI. Bbzakntk-ju-vgmzfd PAH. Bilateral pleural effusions | | (drained [...] tricuspid regurgitation. RVSP = 54mmHg (consistent with owpvihir-mc-emhyvs | | pulmonary arterial hypertension--reading was consistent with direct PASP measurement | | via Davenport-Roland catheter). Pulmonic Valve Peak Velocity: 51.33 cm/s [...] RVSP = 54mmHg | | (consistent with pjchfdnw-fa-pmjyph pulmonary arterial | | hypertension--reading was consistent with direct PASP measurement via | | Davenport-Roland catheter). | | | | Pulmonic Valve [...] | | | POC | performed at [facility];[address] | | LABORATORY | | | | [address];[place], [place] | | | | | | [address] | | | | + + + + + + + + | Specimen | + + | | + + + + + + + | Performing | Address | City/State/Zipcode | Phone Number | | Organization | | | | + + + + + | [facility] | [address] | [place] [address] | [phone] | + + + + + PTT (02/15/2019 5:49 AM PDT) + + + + + + | Component | Value | Ref Range | Performed | Pathologist | | | | | At | Signature | + + + + + + | PTT | 64 (H)Comment: Testing | 23 - 32 seconds | [facility] | | | | performed at [facility];[address] | | LABORATORY | | | | [address];[place] | | | | | | [address] | | | | + + + + + + + + | Specimen | + + | | + + + + + + + | Performing | Address | City/State/Zipcode | Phone Number | | Organization | | | | + + + + + | [facility] | [address] | [place] [address] | [phone] | + + + + + Protime INR (02/15/2019 5:49 AM PDT) + + + + + + | Component | Value | Ref Range | Performed | Pathologist | | | | | At | Signature | + + + + + + | INR | 1.0Comment: REFERENCE | | [facility] | | | | RANGE:0.9 [...] | | | | | performed at [facility] | | | | | | [facility];[place], [place] | | | | | | [address] | | | | + + + + + + + + | Specimen | + + | | + + + + + + + | Performing | Address | City/State/Zipcode | Phone Number | | Organization | | | | + + + + + | [facility] | [address] [facility] | [place] [address] | [phone] | + + + + + CBC [...] [facility] | | | | performed at [facility], [address] | | LABORATORY | | | | [address], | | | | | | [place] [address] | | | | + + + + + + + + | Specimen | + + | | + + + + + + + | Performing | Address | City/State/Zipcode | Phone Number | | Organization | | | | + + + + + | [facility] | [address] | [place] [address] | [phone] | + + + + + Renal [...] W | | | | | | [facility], | | | | | | [place] [address] | | | | + + + + + + + + | Specimen | + + | Blood | + + + + + + + | Performing | Address | City/State/Zipcode | Phone Number | | Organization | | | | + + + + + | [facility] | [address] | [place] [address] | [phone] | + + + + + Red [...] | [facility] | | | COMMENT | [facility];[address] | | LABORATORY | | | | [address];[place] [address] | | | | + + + + + + + + | Specimen | + + | | + + + + + + + | Performing | Address | City/State/Zipcode | Phone Number | | Organization | | | | + + + + + | [facility] | [address] | [place] [address] | [phone] | + + + + + Type [...] + + + | UNIT # | [id number] | | [facility] | | | | [...] + + + | UNIT # | [id number] | | [facility] | | | | [...] + + + | UNIT # | [id number] | | [facility] | | | | [...] | | | RESULT | performed at [facility];[address] | | LABORATORY | | | | [address];[place], [place] | | | | | | [address] | | | | + + + + + + | UNIT # | [id number] | | [facility] | | | | [...] [facility] | [address] | [place] [address] | [phone] | + + + + + PTT (02/14/2019 11:09 PM PDT) + + + + + + | Component | Value | Ref Range | Performed | Pathologist | | | | | At | Signature | + + + + + + | PTT | 52 (H)Comment: Testing | 23 - 32 seconds | [facility] | | | | performed at [facility];[address] | | LABORATORY | | | | [address];[place], [place] | | | | | | [address] | | | | + + + + + + + + | Specimen | + + | Blood | + + + + + + + | Performing | Address | City/State/Zipcode | Phone Number | | Organization | | | | + + + + + | [facility] | [address] | [place] [address] | [phone] | + + + + + Troponin [...] | | | | | performed at [facility];[address] | | | | | | [facility];[place], [place] | | | | | | [address] | | | | + + + + + + + + | Specimen | + + | Blood | + + + + + + + | Performing | Address | City/State/Zipcode | Phone Number | | Organization | | | | + + + + + | [facility] | [address] | [place] [address] | [phone] | + + + + + XR [...] [facility] | | | | performed at [facility];[address] | | LABORATORY | | | | [address];[place] | | | | | | [address] | | | | + + + + + + + + | Specimen | + + | Tissue - Both | | anterior nares (body | | structure) | + + + + + + + | Performing | Address | City/State/Zipcode | Phone Number | | Organization | | | | + + + + + | [facility] | [address] | [place] [address] | [phone] | + + + + + POC Glucose (02/14/2019 9:11 PM PDT) + + + + + + | Component | Value | Ref Range | Performed | Pathologist | | | | | At | Signature | + + + + + + | Glucose, | 165 (H)Comment: Testing | 65 - 99 mg/dL | [facility] | | | POC | performed at [facility];[address] | | LABORATORY | | | | [address];[place], [place] | | | | | | [address] | | | | + + + + + + + + | Specimen | + + | | + + + + + + + | Performing | Address | City/State/Zipcode | Phone Number | | Organization | | | | + + + + + | [facility] | [address] | [place] [address] | [phone] | + + + + + POC [...] | | | POC | performed at [facility];[address] | | LABORATORY | | | | [address];[place], [place] | | | | | | [address] | | | | + + + + + + + + | Specimen | + + | | + + + + + + + | Performing | Address | City/State/Zipcode | Phone Number | | Organization | | | | + + + + + | [facility] | [address] | [place] [address] | [phone] | + + + + + ECG [...] MD | | | | | | (344) on 02/14/2019 | | | | | [...] KRMOOKIE | | | | performed at [facility];[address] | | LABORATORY | | | | [address];[place] | | | | | | [address] | | | | + + + + + + + + | Specimen | + + | Blood | + + + + + + + | Performing | Address | City/State/Zipcode | Phone Number | | Organization | | | | + + + + + | [facility] | [address] | [place] [address] | [phone] | + + + + + Troponin I (02/14/2019 12:47 PM PDT) + + + + + + | Component | Value | Ref Range | Performed | Pathologist | | | | | At | Signature | + + + + + + | Troponin I | 12.566 ()Comment: | 0.00 - 0.04 | [facility] | | | | 0.04 [...] BENÍTEZ | | | | | | [id number] AT 1523 BY Edwin. | | | | | | Testing performed at | | | | | | [facility];[address] [place] [address] | | | | | | [facility];[place] [address] | | | | + + + + + + + + | Specimen | + + | Blood | + + + + + + + | Performing | Address | City/State/Zipcode | Phone Number | | Organization | | | | + + + + + | [facility] | [address] | [place] [address] | [phone] | + + + + + POC [...] | | | POC | performed at [facility];[address] | | LABORATORY | | | | [address];[place] | | | | | | [address] | | | | + + + + + + + + | Specimen | + + | | + + + + + + + | Performing | Address | City/State/Zipcode | Phone Number | | Organization | | | | + + + + + | [facility] | [address] | [place] [address] | [phone] | + + + + + POC [...] | | | POC | performed at [facility];[address] | | LABORATORY | | | | [address];[place] | | | | | | [address] | | | | + + + + + + + + | Specimen | + + | | + + + + + + + | Performing | Address | City/State/Zipcode | Phone Number | | Organization | | | | + + + + + | [facility] | [address] | [place] [address] | [phone] | + + + + + Troponin [...] | | | | BY:CARLA Baxter ON [id number] | | | | | | AT 0758 BY BENI. Testing | | | | | | performed at [facility];[address] | | | | | | [address] [facility];[place] | | | | | | [address] | | | | + + + + + + + + | Specimen | + + | Blood | + + + + + + + | Performing | Address | City/State/Zipcode | Phone Number | | Organization | | | | + + + + + | [facility] | [address] | [place] [address] | [phone] | + + + + + Hemoglobin A1C (02/14/2019 6:11 AM PDT) + + + + + + | Component | Value | Ref Range | Performed | Pathologist | | | | | At | Signature | + + + + + + | Hemoglobin | 7.4 (H)Comment: HbA1c | 4.0 - 6.0 % | [facility] | | | A1c | [...] | | | | | | [place] [address] | | | | + + + + + + + + | Specimen | + + | Blood | + + + + + + + | Performing | Address | City/State/Zipcode | Phone Number | | Organization | | | | + + + + + | [facility] | [address] | [place] [address] | [phone] | + + + + + PTT (02/14/2019 6:11 AM PDT) + + + + + + | Component | Value | Ref Range | Performed | Pathologist | | | | | At | Signature | + + + + + + | PTT | 44 (H)Comment: Testing | 23 - 32 seconds | [facility] | | | | performed at [facility];8 | | LABORATORY | | | | [address];[place], [place] | | | | | | [address] | | | | + + + + + + + + | Specimen | + + | Blood | + + + + + + + | Performing | Address | City/State/Zipcode | Phone Number | | Organization | | | | + + + + + | [facility] | [address] | [place] [address] | [phone] | + + + + + Renal [...] W | | | | | | [facility], | | | | | | [place] [address] | | | | + + + + + + + + | Specimen | + + | Blood | + + + + + + + | Performing | Address | City/State/Zipcode | Phone Number | | Organization | | | | + + + + + | [facility] | [address] | [place] [address] | [phone] | + + + + + Troponin I (02/13/2019 11:43 PM PDT) + + + + + + | Component | Value | Ref Range | Performed | Pathologist | | | | | At | Signature | + + + + + + | Troponin I | 15.415 ()Comment: | 0.00 - 0.04 | [facility] | | | | 0.04 [...] | | | | | performed at [facility] | | | | | | [facility];[place], [place] | | | | | | [address] | | | | + + + + + + + + | Specimen | + + | Blood | + + + + + + + | Performing | Address | City/State/Zipcode | Phone Number | | Organization | | | | + + + + + | [facility] | [address] | [place] [address] | [phone] | + + + + + POC [...] | | | POC | performed at [facility];[address] | | LABORATORY | | | | [address];[place] | | | | | | [address] | | | | + + + + + + + + | Specimen | + + | | + + + + + + + | Performing | Address | City/State/Zipcode | Phone Number | | Organization | | | | + + + + + | [facility] | [address] | [place] [address] | [phone] | + + + + + POC Glucose (02/13/2019 6:25 PM PDT) + + + + + + | Component | Value | Ref Range | Performed | Pathologist | | | | | At | Signature | + + + + + + | Glucose, | 123 (H)Comment: Testing | 65 - 99 mg/dL | [facility] | | | POC | performed at [facility];[address] | | LABORATORY | | | | [address];[place], [place] | | | | | | [address] | | | | + + + + + + + + | Specimen | + + | | + + + + + + + | Performing | Address | City/State/Zipcode | Phone Number | | Organization | | | | + + + + + | [facility] | [address] | [place] [address] | [phone] | + + + + + Troponin [...] 1544 | | | | | | [id number] KAW[facility] | | | | | | performed at [facility] | | | | | | [facility];[place], [place] | | | | | | [address] | | | | + + + + + + + + | Specimen | + + | Blood | + + + + + + + | Performing | Address | City/State/Zipcode | Phone Number | | Organization | | | | + + + + + | [facility] | [address] | [place] [address] | [phone] | + + + + + POC [...] | | | POC | performed at [facility];[address] | | LABORATORY | | | | [address];[place] | | | | | | [address] | | | | + + + + + + + + | Specimen | + + | | + + + + + + + | Performing | Address | City/State/Zipcode | Phone Number | | Organization | | | | + + + + + | [facility] | [address] | [place] [address] | [phone] | + + + + + POC [...] | | | POC | performed at [facility];[address] | | LABORATORY | | | | [address];[place] | | | | | | [address] | | | | + + + + + + + + | Specimen | + + | | + + + + + + + | Performing | Address | City/State/Zipcode | Phone Number | | Organization | | | | + + + + + | [facility] | [address] | [place] [address] | [phone] | + + + + + Phosphorus (02/13/2019 7:42 AM PDT) + + + + + + | Component | Value | Ref Range | Performed | Pathologist | | | | | At | Signature | + + + + + + | Phosphorus | 4.1Comment: Testing | 2.3 - 4.8 mg/dL | [facility] | | | | performed at [facility];[address] | | LABORATORY | | | | [address];[place], [place] | | | | | | [address] | | | | + + + + + + + + | Specimen | + + | Blood | + + + + + + + | Performing | Address | City/State/Zipcode | Phone Number | | Organization | | | | + + + + + | [facility] | [address] [facility] | [place] [address] | [phone] | + + + + + Troponin [...] | | | | | performed at [facility];[address] | | | | | | [address];[place], [place] | | | | | | [address] | | | | + + + + + + + + | Specimen | + + | Blood | + + + + + + + | Performing | Address | City/State/Zipcode | Phone Number | | Organization | | | | + + + + + | [facility] | [address] | [place] [address] | [phone] | + + + + + CBC [...] | | | Absolute | performed at [facility];[address] | K/uL | LABORATORY | | | | [address];[place] | | | | | | [address] | | | | + + + + + + + + | Specimen | + + | Blood | + + + + + + + | Performing | Address | City/State/Zipcode | Phone Number | | Organization | | | | + + + + + | [facility] | [address] | [place] [address] | [phone] | + + + + + Basic [...] 8.4 (L) | 8.5 - 10.5 | [facility] | | | | | mg/dL | LABORATORY | | + + + + + + | Estimated | 31 (L)Comment: GFR <60: | >60 | [facility] | | | GFR | [...] | | | | | performed at [facility] | | | | | | [facility];[place], [place] | | | | | | [address] | | | | + + + + + + + + | Specimen | + + | Blood | + + + + + + + | Performing | Address | City/State/Zipcode | Phone Number | | Organization | | | | + + + + + | [facility] | [address] | [place] [address] | [phone] | + + + + + PTT (02/13/2019 5:09 AM PDT) + + + + + + | Component | Value | Ref Range | Performed | Pathologist | | | | | At | Signature | + + + + + + | PTT | 47 (H)Comment: Testing | 23 - 32 seconds | [facility] | | | | performed at [facility];[address] | | LABORATORY | | | | [address];[place], [place] | | | | | | [address] | | | | + + + + + + + + | Specimen | + + | Blood | + + + + + + + | Performing | Address | City/State/Zipcode | Phone Number | | Organization | | | | + + + + + | [facility] | [address] [facility] | [place] [address] | [phone] | + + + + + Troponin I (02/12/2019 11:04 PM PDT) + + + + + + | Component | Value | Ref Range | Performed | Pathologist | | | | | At | Signature | + + + + + + | Troponin I | 19.769 ()Comment: | 0.00 - 0.04 | [facility] | | | | 0.04 [...] | | | | | | BY RiffTraxREAD BACK RESULTS | | | | | | VERIFIEDTesting | | | | | | performed at [facility] | | | | | | [address];[place], [place] | | | | | | [address] | | | | + + + + + + + + | Specimen | + + | Blood | + + + + + + + | Performing | Address | City/State/Zipcode | Phone Number | | Organization | | | | + + + + + | [facility] | [address] | [place] [address] | [phone] | + + + + + POC Glucose (02/12/2019 9:16 PM PDT) + + + + + + | Component | Value | Ref Range | Performed | Pathologist | | | | | At | Signature | + + + + + + | Glucose, | 114 (H)Comment: Testing | 65 - 99 mg/dL | [facility] | | | POC | performed at [facility];[address] | LABORAT[address] | | | [address];[place] | | | | | | [address] | | | | + + + + + + + + | Specimen | + + | | + + + + + + + | Performing | Address | City/State/Zipcode | Phone Number | | Organization | | | | + + + + + | [facility] | [address] | [place] [address] | [phone] | + + + + + POC [...] | | | POC | performed at [facility];[address] | | LABORAT[address] | | | | [address];[place], [place] | | | | | | [address] | | | | + + + + + + + + | Specimen | + + | | + + + + + + + | Performing | Address | City/State/Zipcode | Phone Number | | Organization | | | | + + + + + | [facility] | [address] | [place] [address] | [phone] | + + + + + Troponin [...] | | | | | performed at [facility];[address] | | | | | | [facility];[place], [place] | | | | | | [address] | | | | + + + + + + + + | Specimen | + + | Blood | + + + + + + + | Performing | Address | City/State/Zipcode | Phone Number | | Organization | | | | + + + + + | [facility] | [address] | [place] [address] | [phone] | + + + + + Protein, Urine, Random (02/12/2019 3:05 PM PDT) + + + + + + | Component | Value | Ref Range | Performed | Pathologist | | | | | At | Signature | + + + + + + | Protein, | 345Comment: NO NORMAL | mg/dL | [facility] | | | Urine | RANGE ESTABLISHEDTesting | | LABORATORY | | | | performed at [facility], [address] | | | | | | [address], | | | | | | [place] [address] | | | | + + + + + + + + | Specimen | + + | | + + + + + + + | Performing | Address | City/State/Zipcode | Phone Number | | Organization | | | | + + + + + | [facility] | [address] | [place] [address] | [phone] | + + + + + Protein/Creatinine Ratio, Urine (02/12/2019 3:05 PM PDT) + + + + + + | Component | Value | Ref Range | Performed | Pathologist | | | | | At | Signature | + + + + + + | PRO/CREA | 1.364Comment: Testing | | [facility] | | | RATIO,URINE | performed at [facility], [address] | | LABORATORY | | | | [address], | | | | | | [place] [address] | | | | + + + + + + + + | Specimen | + + | | + + + + + + + | Performing | Address | City/State/Zipcode | Phone Number | | Organization | | | | + + + + + | [facility] | [address] | [place] [address] | [phone] | + + + + + Urinalysis [...] - 1.030 | [facility] | | | [place], | | | LABORATORY | | | [...] | | | CRYSTALS | performed at [facility] | | LABORATORY | | | | [address];[place], [place] | | | | | | [address] | | | | + + + [...] | + + + + + | [facility] | [address] | [place] [address] | [phone] | + + + + + Urea Nitrogen, Urine, Random (02/12/2019 3:05 PM PDT) + + + + + + | Component | Value | Ref Range | Performed | Pathologist | | | | | At | Signature | + + + + + + | Urea | 570.0Comment: NO NORMAL | mg/dL | [facility] | | | Nitrogen, | RANGE ESTABLISHEDTesting | | LABORATORY | | | Urine | performed at [facility], [address] | | | | | | [address] [facility], | | | | | | [place] [address] | | | | + + + [...] | + + + + + | [facility] | [address] | [place] [address] | [phone] | + + + + + Sodium, [...] | | | urine | performed at [facility], [address] | | | | | | [address], | | | | | | [place] [address] | | | | + + + [...] | + + + + + | [facility] | [address] | [place] [address] | [phone] | + + + + + Eosinophil Smear, Urine (02/12/2019 3:05 PM PDT) + + + + + + | Component | Value | Ref Range | Performed | Pathologist | | | | | At | Signature | + + + + + + | Eosinophils | NO EOSINOPHILS | <1 % | [facility] | | | | SEENComment: Testing | | LABORATORY | | | | performed at [facility], [address] | | | | | | [address], | | | | | | [place] [address] | | | | + + + [...] | + + + + + | [facility] | [address] | [place] [address] | [phone] | + + + + + Creatinine, [...] | | | urine | performed at [facility], [address] | | | | | | [address], | | | | | | [place] [address] | | | | + + + [...] | + + + + + | [facility] | [address] | [place] [address] | [phone] | + + + + + Chloride, Urine, Random (02/12/2019 3:05 PM PDT) + + + + + + | Component | Value | Ref Range | Performed | Pathologist | | | | | At | Signature | + + + + + + | RANDOM | 50Comment: NO NORMAL | mmol/L | [facility] | | | URINE | RANGE ESTABLISHEDTesting | | LABORATORY | | | CHLORIDE | performed at [facility], [address] | | | | | | [address], | | | | | | [place] [address] | | | | + + + [...] | + + + + + | [facility] | [address] | [place] [address] | [phone] | + + + + + POC Glucose (02/12/2019 11:15 AM PDT) + + + + + + | Component | Value | Ref Range | Performed | Pathologist | | | | | At | Signature | + + + + + + | Glucose, | 212 (H)Comment: Testing | 65 - 99 mg/dL | [facility] | | | POC | performed at [facility];[address] | | LABORATORY | | | | [address];[place], [place] | | | | | | [address] | | | | + + + + + + + + | Specimen | + + | | + + + + + + + | Performing | Address | City/State/Zipcode | Phone Number | | Organization | | | | + + + + + | [facility] | [address] | [place] [address] | [phone] | + + + + + ECHO [...] | | | | | | n [place] | | | | | + + [...] | | | | | performed at [facility];[address] | | | | | | [facility];[place], [place] | | | | | | [address] | | | | + + + + + + + + | Specimen | + + | Blood | + + + + + + + | Performing | Address | City/State/Zipcode | Phone Number | | Organization | | | | + + + + + | [facility] | [address] | [place] [address] | [phone] | + + + + + POC Glucose (02/12/2019 5:56 AM PDT) + + + + + + | Component | Value | Ref Range | Performed | Pathologist | | | | | At | Signature | + + + + + + | Glucose, | 115 (H)Comment: Testing | 65 - 99 mg/dL | [facility] | | | POC | performed at [facility];[address] | | LABORATORY | | | | [address];[place] | | | | | | [address] | | | | + + + + + + + + | Specimen | + + | | + + + + + + + | Performing | Address | City/State/Zipcode | Phone Number | | Organization | | | | + + + + + | [facility] | [address] | [place] [address] | [phone] | + + + + + PTT (02/12/2019 5:12 AM PDT) + + + + + + | Component | Value | Ref Range | Performed | Pathologist | | | | | At | Signature | + + + + + + | PTT | 49 (H)Comment: Testing | 23 - 32 seconds | [facility] | | | | performed at [facility];[address] | | LABORATORY | | | | [address];[place] | | | | | | [address] | | | | + + + + + + + + | Specimen | + + | Blood | + + + + + + + | Performing | Address | City/State/Zipcode | Phone Number | | Organization | | | | + + + + + | [facility] | [address] | [place] [address] | [phone] | + + + + + Basic [...] | | | | | [place] [address] | | | | + + + + + + + + | Specimen | + + | Blood | + + + + + + + | Performing | Address | City/State/Zipcode | Phone Number | | Organization | | | | + + + + + | [facility] | [address] | [place] [address] | [phone] | + + + + + CBC [...] [facility] | | | | performed at [facility], [address] | | LABORATORY | | | | [address], | | | | | | [place] [address] | | | | + + + + + + + + | Specimen | + + | Blood | + + + + + + + | Performing | Address | City/State/Zipcode | Phone Number | | Organization | | | | + + + + + | [facility] | [address] | [place] [address] | [phone] | + + + + + CK Total (02/12/2019 5:12 AM PDT) + + + + + + | Component | Value | Ref Range | Performed | Pathologist | | | | | At | Signature | + + + + + + | CK TOTAL | 309Comment: Testing | 55 - 400 U/L | [facility] | | | | performed at [facility];[address] | | LABORATORY | | | | [address];[place] | | | | | | [address] | | | | + + + + + + + + | Specimen | + + | Blood | + + + + + + + | Performing | Address | City/State/Zipcode | Phone Number | | Organization | | | | + + + + + | [facility] | [address] | [place] [address] | [phone] | + + + + + ECG [...] | | | POC | performed at [facility];[address] | | LABORATORY | | | | [address];[place] | | | | | | [address] | | | | + + + + + + + + | Specimen | + + | | + + + + + + + | Performing | Address | City/State/Zipcode | Phone Number | | Organization | | | | + + + + + | [facility] | [address] | [place] [address] | [phone] | + + + + + POC Glucose (02/11/2019 8:56 PM PDT) + + + + + + | Component | Value | Ref Range | Performed | Pathologist | | | | | At | Signature | + + + + + + | Glucose, | 141 (H)Comment: Testing | 65 - 99 mg/dL | [facility] | | | POC | performed at [facility];[address] | | LABORATORY | | | | [address];[place] | | | | | | [address] | | | | + + + + + + + + | Specimen | + + | | + + + + + + + | Performing | Address | City/State/Zipcode | Phone Number | | Organization | | | | + + + + + | [facility] | [address] | [place] [address] | [phone] | + + + + + PTT (02/11/2019 7:45 PM PDT) + + + + + + | Component | Value | Ref Range | Performed | Pathologist | | | | | At | Signature | + + + + + + | PTT | 46 (H)Comment: Testing | 23 - 32 seconds | [facility] | | | | performed at [facility];[address] | | LABORATORY | | | | [address];[place], [place] | | | | | | [address] | | | | + + + + + + + + | Specimen | + + | Blood | + + + + + + + | Performing | Address | City/State/Zipcode | Phone Number | | Organization | | | | + + + + + | [facility] | [address] | [place] [address] | [phone] | + + + + + POC [...] | | | POC | performed at [facility];[address] | | LABORATORY | | | | [address];[place], [place] | | | | | | [address] | | | | + + + + + + + + | Specimen | + + | | + + + + + + + | Performing | Address | City/State/Zipcode | Phone Number | | Organization | | | | + + + + + | [facility] | [address] | [place] [address] | [phone] | + + + + + ECG [...] | | | Clotting | performed at [facility];[address] | seconds | LABORATORY | | | Time, POC | [address];[place], [place] | | | | | | [address] | | | | + + + + + + + + | Specimen | + + | | + + + + + + + | Performing | Address | City/State/Zipcode | Phone Number | | Organization | | | | + + + + + | [facility] | [address] | [place] [address] | [phone] | + + + + + POC Glucose (02/11/2019 12:33 PM PDT) + + + + + + | Component | Value | Ref Range | Performed | Pathologist | | | | | At | Signature | + + + + + + | Glucose, | 124 (H)Comment: Testing | 65 - 99 mg/dL | [facility] | | | POC | performed at [facility];[address] | | LABORATORY | | | | [address];[place], [place] | | | | | | [address] | | | | + + + + + + + + | Specimen | + + | | + + + + + + + | Performing | Address | City/State/Zipcode | Phone Number | | Organization | | | | + + + + + | [facility] | [address] | [place] [address] | [phone] | + + + + + PTT (02/11/2019 11:47 AM PDT) + + + + + + | Component | Value | Ref Range | Performed | Pathologist | | | | | At | Signature | + + + + + + | PTT | 48 (H)Comment: Testing | 23 - 32 seconds | [facility] | | | | performed at [facility];[address] | | LABORATORY | | | | [address];[place], [place] | | | | | | [address] | | | | + + + + + + + + | Specimen | + + | Blood | + + + + + + + | Performing | Address | City/State/Zipcode | Phone Number | | Organization | | | | + + + + + | [facility] | [address] | [place] [address] | [phone] | + + + + + Troponin I (02/11/2019 11:47 AM PDT) + + + + + + | Component | Value | Ref Range | Performed | Pathologist | | | | | At | Signature | + + + + + + | Troponin I | 14.741 ()Comment: | 0.00 - 0.04 | [facility] | | | | 0.04 [...] NURSING | | | | | | [facility]/6 RP @ 1227 | | | | | | BY BURTREAD BACK RESULTS | | | | | | VERIFIEDTesting | | | | | | performed at [facility];[address] | | | | | | [address];[place] | | | | | | [address] | | | | + + + + + + + + | Specimen | + + | Blood | + + + + + + + | Performing | Address | City/State/Zipcode | Phone Number | | Organization | | | | + + + + + | [facility] | [address] | [place] [address] | [phone] | + + + + + ECG [...] [facility] | | | | performed at [facility];[address] | | LABORATORY | | | | [address];[place], [place] | | | | | | [address] | | | | + + + + + + + + | Specimen | + + | Blood | + + + + + + + | Performing | Address | City/State/Zipcode | Phone Number | | Organization | | | | + + + + + | [facility] | [address] | [place] [address] | [phone] | + + + + + TSH (02/11/2019 7:43 AM PDT) + + + + + + | Component | Value | Ref Range | Performed | Pathologist | | | | | At | Signature | + + + + + + | TSH | 0.779Comment: Testing | 0.450 - 5.100 | [facility] | | | | performed at [facility];[address] | uIU/mL | LABORATORY | | | | [address];[place], [place] | | | | | | [address] | | | | + + + + + + + + | Specimen | + + | Blood | + + + + + + + | Performing | Address | City/State/Zipcode | Phone Number | | Organization | | | | + + + + + | [facility] | [address] | [place] [address] | [phone] | + + + + + B Type Natriuretic Peptide (02/11/2019 7:43 AM PDT) + + + + + + | Component | Value | Ref Range | Performed | Pathologist | | | | | At | Signature | + + + + + + | BNP | 406.69 (H)Comment: | 0 - 100 pg/mL | [facility] | | | | Testing performed at | | LABORATORY | | | | [facility];[address];[place] [address] | | | | + + + + + + + + | Specimen | + + | Blood | + + + + + + + | Performing | Address | City/State/Zipcode | Phone Number | | Organization | | | | + + + + + | [facility] | [address] | [place] [address] | [phone] | + + + + + Lipid [...] | | | Calculated | performed at [facility], [address] | | LABORATORY | | | | [address], | | | | | | [place] [address] | | | | + + + + + + + + | Specimen | + + | Blood | + + + + + + + | Performing | Address | City/State/Zipcode | Phone Number | | Organization | | | | + + + + + | [facility] | [address] | [place] [address] | [phone] | + + + + + Comprehensive [...] 41 | 10 - 65 U/L | [facility] | | | | | | LABORATORY | | + + + + + + | Estimated | 40 (L)Comment: GFR <60: | >60 | [facility] | | | GFR | [...] W | | | | | | [facility], | | | | | | [place] [address] | | | | + + + + + + + + | Specimen | + + | Blood | + + + + + + + | Performing | Address | City/State/Zipcode | Phone Number | | Organization | | | | + + + + + | [facility] | [address] | [place] [address] | [phone] | + + + + + CBC [...] [facility] | | | | performed at [facility], [address] | | LABORATORY | | | | [address], | | | | | | [place] [address] | | | | + + + + + + + + | Specimen | + + | Blood | + + + + + + + | Performing | Address | City/State/Zipcode | Phone Number | | Organization | | | | + + + + + | [facility] | [address] | [place] [address] | [phone] | + + + + + Troponin [...] | | | | UNITMELODY V/6RP @ 0880 | | | | | | BY [employer] BACK RESULTS | | | | | | VERIFIEDTesting | | | | | | performed at [facility] | | | | | | [address];[place] | | | | | | [address] | | | | + + + + + + + + | Specimen | + + | Blood | + + + + + + + | Performing | Address | City/State/Zipcode | Phone Number | | Organization | | | | + + + + + | [facility] | [address] | [place] [address] | [phone] | + + + + + POC [...] | | | POC | performed at [facility];[address] | | LABORATORY | | | | [address];[place] | | | | | | [address] | | | | + + + + + + + + | Specimen | + + | | + + + + + + + | Performing | Address | City/State/Zipcode | Phone Number | | Organization | | | | + + + + + | [facility] | [address] | [place] [address] | [phone] | + + + + + Troponin [...] | | | | | performed at [facility];[address] | | | | | | [facility];[place], [place] | | | | | | [address] | | | | + + + + + + + + | Specimen | + + | Blood | + + + + + + + | Performing | Address | City/State/Zipcode | Phone Number | | Organization | | | | + + + + + | [facility] | [address] [facility] | [place] [address] | [phone] | + + + + + ECG [...] (500), | | | | | | manuscript editor Shea Fajardo | | | | [...] | lesion type, unspecified whether [place] or transplanted heart | + + | Type 2 diabetes mellitus with stage 3 chronic kidney disease, with long-term current | | use of insulin (HCC) | + + | Hyperlipidemia, unspecified hyperlipidemia type | + + | JAMESNO (acute kidney injury) (HCC) Acute kidney failure, unspecified | + + | CKD (chronic kidney disease) stage 3, GFR 30-59 ml/min ([facility]) Chronic kidney disease, | | Stage III [...] | + + | DM (diabetes mellitus) ([facility]) Type II or unspecified type diabetes mellitus without | | mention of complication, not stated as uncontrolled | + + | A-fib ([facility]) Atrial fibrillation | + + documented in [...] | | | | | dose on [facility] 02/15/19 at 1400, | | | [...] | | | | | | Starting [facility] 02/15/19 at 0630, | | | [...] | | | | | modification) on [facility] 02/15/19 at | | | | [...] | | | | | TITRATED, Starting [facility] 02/15/19 | | | | | [...] | | | | First dose on [facility] 02/15/19 at | | PM PDT [...] | | | | | | | 9120-0760 Use NIGHT DOSE for | | | | | | | doses scheduled: HS, 3AM, | | | | | | | Nighttime 7872-5614 If the BG is | | | [...] | | | DAILY, First dose on [facility] 02/22/19 | | AM PDT | [...] 19 6:38 | | | | | CLAM GRADER, Starting Cookie 02/15/19 at | | AM [...] PDT | | | | | Starting [facility] 02/15/19 at 1323, | | | [...] | | | | | Minutes, ONCE, [facility] 02/15/19 at | | | | [...] | | | | | Minutes, ONCE, [facility] 02/15/19 at | | | | [...] | | | | | | | [facility] 02/15/19 at 1400, For 1 | [...]
--- OUTSIDE RECORDS SUMMARY | ~2019-04-07 | XMS | Encounter Summary ---
Demographics + + + | Address | [address] | | | [place] [address] | + + + | Home Phone | | + + + | Preferred Language | Unknown | + + + | Marital Status | Legally | + + + | Congregation Affiliation | 1041 | + + + | Race | Unknown | + + + | Ethnic Group | Unknown | + + + Author + + + | Author | [facility] | | | and [place] | + + + | Organization | [facility] | | | and [...] Team Providers + +------+ + | Care Medication Aid Name | Role | Phone | + [...] NEPHROLOGY [address] | | | | | [address] | [address] [place] | | | | | [place], [place] | [place] [address] | | | | | [address] | [phone] | | | | | [phone] | | | +--------+ + + + [...] 2019 | Visit | | [address] | | | | | | [address] [place] | | | | | | [place] [address] | | | | | | [phone] | | | | | | | [...] | 1.021 | | | | | Central, | | | | | | External [...]
--- OUTSIDE RECORDS SUMMARY | ~2019-04-07 | XMS | Encounter Summary ---
Demographics + + + | Address | [address] | | | [place] [address] | + + + | Home Phone | | + + + | Preferred Language | Unknown | + + + | Marital Status | Legally | + + + | Baptist Affiliation | 1041 | + + + | Race | Unknown | + + + | Ethnic Group | Unknown | + + + Author + + + | Author | [facility] | | | and [place] | + + + | Organization | [facility] | | | and [...] Team Providers + +------+ + | Care Mines Inspector Name | Role | Phone | [...] | lar disease) | [address] | [place], [place] | | | | | Procedures | [address] | [address] | | | | | ECHO | [place], [place] | Phone: | | | | | Complete | [address] | [phone] | | | | | | Phone: | Fax: | | | | | | [phone] | [phone] | | | | | | Fax: | | | | | | | [phone] | | +--------+--------+ + + + + [...] | lar disease) | [address] | [place], [place] | | | | | Procedures | [address] | [address] | | | | | ECHO | [place], [place] | Phone: | | | | | Complete | [address] | [phone] | | | | | | Phone: | Fax: | | | | | | [phone] | [phone] | | | | | | Fax: | | | | | | | [phone] | | +--------+--------+ + + + + Encounter Details +--------+ + + + + | Date | Type | Department | Care Team | Description | +--------+ + + + + | 04/03/ | Hospital | [facility] | Dilipnader, | CVD (cardiovascular | | 2019 | Encounter | [facility] | Juan Price, | disease) | | | | [address] | MD [address] | | | | | [address] [place], [place] | [address] [place], | | | | | [address] | [place] [address] | | | | | [phone] | [phone] | | | | | | | [...] | | | | | [place] [address] | | | | | | [phone] | | | | | | | [...]
--- OUTSIDE RECORDS SUMMARY | ~2019-04-07 | XMS | Encounter Summary ---
Demographics + + + | Address | [address] | | | [place] [address] | + + + | Home Phone | | + + + | Preferred Language | Unknown | + + + | Marital Status | Legally | + + + | Shinto Affiliation | 1041 | + + + [...] Team Providers + +------+ + | Care Gambling Dealer Name | Role | Phone | + [...] | NEPHROLOGY [address] | disease) stage 3, | | | | [address] | [address] [place] | GFR 30-59 ml/min | | | | [place], [place] | [place] [address] | (HCC) (Primary Dx); | | | | [address] | [phone] | Anemia in stage 3 | | | | [phone] | | chronic kidney | | | [...] | | | | | | [place] [address] | | | | | | [phone] | | | | | | | | +--------+---------+ + + + documented as of this encounter Visit Diagnoses + + | Diagnosis | + + | CKD (chronic kidney disease) stage 3, GFR 30-59 ml/min ([facility]) - Primary Chronic kidney | | disease, Stage III (moderate) | + + | Anemia in stage 3 chronic kidney disease (HCC) | + + documented in this encounter"
--- OUTSIDE RECORDS SUMMARY | 2019-04-07 11:00 | XMS ---
PreManage Notification: [employer] [facility]J[employer] Security [employer] Events No recent Security Events currently on file CRITERIA MET - Group Notification CARE PROVIDERS [facility] Interviews Intern: Surgical 11/15/2017-Current PHONE: Unknown Name Unknown Nursing Home Facility Current PHONE: [phone] Name Unknown Clinic/Center 02/12/2019-Current PHONE: [phone] [facility] 05/17/2016-Current PHONE: [phone] Alia has no Care Guidelines for this patient. Care History Medical/Surgical 01/22/2019 [facility] PATIENT- [facility] ELIGIBLE PLEASE REFER PATIENT TO [facility] FOR NON EMERGENT MEDICAL NEEDS. [facility] CAN SEE PATIENTS SAME DAY FOR APTS IF PATIENT CALLS FIRST THING IN THE MORNING. EGutierrez VISIT COUNT (12 MO.) [address] TOTAL 6 NOTE: Visits indicate total known visits. 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 - Acute ischemic heart disease, unspecified - 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 - Non-ST elevation (NSTEMI) myocardial infarction - 1 Chronic kidney disease, stage 4 (severe) - Chest pain, unspecified - 1 Chronic kidney disease, stage 3 (moderate) - Other acute kidney failure - Paroxysmal atrial fibrillation - Athscl heart disease of habematolel coronary artery w/o ang pctrs - Hyperlipidemia, unspecified - Chest Pain 02/10/2019 22:57 [facility] [place] TYPE: Emergency COMPLAINT: - SOB, CHEST PAIN DIAGNOSES: - Non-ST elevation (NSTEMI) myocardial infarction - Personal history of nicotine dependence - Essential (primary) hypertension - Other chest pain - assisted (current) use of aspirin - 1 Type 2 diabetes mellitus without complications - Unspecified atrial fibrillation - Other prison (current) drug therapy - Presence of coronary angioplasty implant and graft - Allergy status to penicillin 01/19/2019 20:32 [facility] [place] TYPE: Emergency COMPLAINT: - BLOOD PRESSURE PROB DIAGNOSES: - 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 - Chronic kidney disease, unspecified - Syncope and collapse - Other prison (current) drug therapy - 1 Type 2 diabetes mellitus without complications - 1 Hypertensive chronic kidney disease w stg 1-4/unsp chr keeny - Allergy status to penicillin - Presence of coronary angioplasty implant and graft - assisted (current) use of insulin - Dehydration 12/07/2018 16:25 [facility] [place] TYPE: Emergency COMPLAINT: - HIGH BP DIAGNOSES: - Allergy status to penicillin - Other prison (current) drug therapy - assisted (current) use of insulin - assisted (current) use of aspirin - Personal history [...] atrial fibrillation - Essential (primary) hypertension - 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 - Unspecified atrial fibrillation - Other viral pneumonia - Presence of coronary angioplasty implant and graft - Personal history of nicotine dependence - Personal history of nicotine dependence - 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
[2019-04-07] MEDS ORDERED: COUMADIN2 MG PO (11:17)
[2019-04-07] MEDS ORDERED: KEFLEX500 MG PO (14:24)
--- NOTE | 2019-04-09 15:31 | NUR ---
Received orders for OP therapy from Dr Galvan. Spoke with Cindy Chicas in ER. She states he was wanting a referral for case management. Called Hayley Padilla RN from [facility] and requested Case Management from [facility].
== END 2019-04-07 14:39 | disposition home or self-care (01) ==
LOC: ED 10:58
DX: M79.89 Other specified soft tissue disorders (principal); I10 Essential (primary) hypertension; E11.9 Type 2 diabetes mellitus without complications; I48.91 Unspecified atrial fibrillation; Z87.891 Personal history of nicotine dependence; Z88.0 Allergy status to penicillin; Z79.899 Other long term (current) drug therapy; Z79.82 Long term (current) use of aspirin; Z79.84 Long term (current) use of oral hypoglycemic drugs; Z79.01 Long term (current) use of anticoagulants
CPT/HCPCS: 36415; 80053; 85025; 85610; 93971; 99284-25

== ENCOUNTER 2019-04-09 11:14 | Emergency (ER) | payer BC, OTHER ==
[~2019-04-09] VITALS: Ht 180.3 cm; Wt 95.2 kg
[~2019-04-09 11:14] MED LIST changes: +COUMADIN2 MG PO
--- OUTSIDE RECORDS SUMMARY | 2019-04-09 11:18 | XMS ---
PreManage Notification: LIVE ROJAS Security Manager Material Events No recent Security Events currently on file CRITERIA MET - Group Notification - 6 ED Visits in 6 Months - [facility] - 2 Visits in 30 Days CARE PROVIDERS LORENZO COLE Physician Manager Employee Relations: Surgical 11/15/2017-Current PHONE: Unknown Name Unknown Assisted Facility Current PHONE: [phone] Name Unknown Clinic/Center 02/12/2019-Current PHONE: [phone] LORENZO EUCEDA Primary Care 05/17/2016-Current PHONE: [phone] Alia has no Care Guidelines for this patient. Care History Medical/Surgical 01/22/2019 [facility] PATIENT- YELLOWHAW ELIGIBLE PLEASE REFER PATIENT TO [facility] FOR NON EMERGENT MEDICAL NEEDS. [facility] CAN SEE PATIENTS SAME DAY FOR APTS IF PATIENT CALLS FIRST THING IN THE MORNING. E.Nicky VISIT COUNT (12 MO.) [address] TOTAL 7 NOTE: Visits indicate total known visits. 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 - Non-ST elevation (NSTEMI) myocardial infarction - 1 Chronic kidney disease, stage 4 (severe) - Chest pain, unspecified - 1 Chronic kidney disease, stage 3 (moderate) - Other acute kidney failure - Paroxysmal atrial fibrillation - Athscl heart disease of [place] coronary artery w/o ang pctrs - Hyperlipidemia, unspecified - Chest Pain 02/10/2019 22:57 [facility] TYPE: Emergency COMPLAINT: - SOB, CHEST PAIN DIAGNOSES: - Non-ST elevation (NSTEMI) myocardial infarction - Personal history of nicotine dependence - Essential (primary) hypertension - Other chest pain - termite exterminator helper (current) use of aspirin - 1 Type 2 diabetes mellitus without complications - Unspecified atrial fibrillation - Other watermelon harvesting supervisor (current) drug therapy - Presence of coronary angioplasty implant and graft - Allergy status to penicillin 01/19/2019 20:32 [facility] TYPE: Emergency COMPLAINT: - BLOOD PRESSURE PROB DIAGNOSES: - detention (current) use of aspirin - Chronic kidney disease, unspecified - Syncope and collapse - Other watermelon harvesting supervisor (current) drug therapy - 1 Type 2 diabetes mellitus without complications - 1 Hypertensive chronic kidney disease w stg 1-4/michelle lilly - Allergy status to penicillin - Presence of coronary angioplasty implant and graft - termite exterminator helper (current) use of insulin - Dehydration 12/07/2018 16:25 [facility] TYPE: Emergency COMPLAINT: - HIGH BP DIAGNOSES: - Allergy status to penicillin - Other watermelon harvesting supervisor (current) drug therapy - termite exterminator helper (current) use of insulin - detention (current) use of aspirin - Personal history [...] atrial fibrillation - Essential (primary) hypertension - detention (current) use of insulin - Unspecified atrial fibrillation - Other viral pneumonia - Presence of coronary angioplasty implant and graft - Personal history of nicotine dependence - Personal history of nicotine dependence - termite exterminator helper (current) use of insulin - 1 Type 2 diabetes mellitus without complications - Essential (primary) hypertension - Hypomagnesemia - Psoriasis, unspecified - Athscl heart disease of [place] coronary artery w/o ang pctrs - Presence of coronary angioplasty implant and graft - 1 Type 2 diabetes mellitus without complications - Athscl heart disease of [place] coronary artery w/o ang pctrs - Psoriasis, unspecified [email or web address]
[2019-04-09] MEDS ORDERED: XARELTO15 MG PO (16:17)
[2019-04-09] MEDS ORDERED: BACTRIM DS TAB1 EACH PO (16:17)
== END 2019-04-09 17:00 | disposition home or self-care (01) ==
LOC: ED 11:14
DX: L03.115 Cellulitis of right lower limb (principal); L02.415 Cutaneous abscess of right lower limb; I82.411 Acute embolism and thrombosis of right femoral vein; I10 Essential (primary) hypertension; E11.9 Type 2 diabetes mellitus without complications; I48.91 Unspecified atrial fibrillation; Z88.0 Allergy status to penicillin; Z79.899 Other long term (current) drug therapy; Z79.82 Long term (current) use of aspirin; Z79.01 Long term (current) use of anticoagulants
CPT/HCPCS: 10060; 73590; 73701; 80053; 83605; 85025; 85610; 99284-25; J7030; Q9967

== ENCOUNTER 2019-04-13 00:48 | Emergency (ER) | payer BC, OTHER ==
[~2019-04-13] VITALS: Ht 180.3 cm; Wt 95.2 kg
--- OUTSIDE RECORDS SUMMARY | 2019-04-13 00:50 | XMS ---
PreManage Notification: LIVE ROJAS Security Hydroelectric Operator Events No recent Security Events currently on file CRITERIA MET - Group Notification - 6 ED Visits in 6 Months - [facility] - 2 Visits in 30 Days CARE PROVIDERS LORENZO COLE Physician Machine Operator Farmworker: Surgical 11/15/2017-Current PHONE: Unknown Name Unknown Intermediate Facility Current PHONE: [phone] Name Unknown Clinic/Center 02/12/2019-Current PHONE: [phone] LORENZO EUCEDA Primary Care 05/17/2016-Current PHONE: [phone] Alia has no Care Guidelines for this patient. Care History Medical/Surgical 01/22/2019 [facility] PATIENT- YELLOWHAW ELIGIBLE PLEASE REFER PATIENT TO [facility] FOR NON EMERGENT MEDICAL NEEDS. [facility] CAN SEE PATIENTS SAME DAY FOR APTS IF PATIENT CALLS FIRST THING IN THE MORNING. E.Nicky VISIT COUNT (12 MO.) [address] TOTAL 8 NOTE: Visits indicate total known visits. ED/UCC VISIT TRACKING (12 MO.) 04/13/2019 00:49 [facility] TYPE: Emergency COMPLAINT: - MEDICATION REACTION/VOMITING 04/09/2019 11:15 [facility] TYPE: Emergency COMPLAINT: - RIGHT LEG PAIN NON INJURY 04/07/2019 10:59 [facility] TYPE: Emergency COMPLAINT: - RIGHT LEG PROBLEM/ RECENT BIPASS SURGERY DIAGNOSES: - 1 Type 2 diabetes mellitus without complications - jail (current) use of anticoagulants - Unspecified atrial fibrillation - terminal gauger (current) use of aspirin - Other specified soft tissue disorders - terminal gauger (current) use of oral hypoglycemic drugs - Other fpc (current) drug therapy - Essential (primary) hypertension - Allergy status to penicillin - Personal history of nicotine dependence 02/11/2019 03:11 [facility] TYPE: Emergency DIAGNOSES: - jail (current) use of insulin - Acute ischemic heart disease, unspecified - 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 - Non-ST elevation (NSTEMI) myocardial infarction - 1 Chronic kidney disease, stage 4 (severe) - Chest pain, unspecified - 1 Chronic kidney disease, stage 3 (moderate) - Other acute kidney failure - Paroxysmal atrial fibrillation - Athscl heart disease of [place] coronary artery w/o ang pctrs - Hyperlipidemia, unspecified - Chest Pain 02/10/2019 22:57 [facility] TYPE: Emergency COMPLAINT: - SOB, CHEST PAIN DIAGNOSES: - Non-ST elevation (NSTEMI) myocardial infarction - Personal history of nicotine dependence - Essential (primary) hypertension - Other chest pain - jail (current) use of aspirin - 1 Type 2 diabetes mellitus without complications - Unspecified atrial fibrillation - Other fpc (current) drug therapy - Presence of coronary angioplasty implant and graft - Allergy status to penicillin 01/19/2019 20:32 [facility] TYPE: Emergency COMPLAINT: - BLOOD PRESSURE PROB DIAGNOSES: - jail (current) use of aspirin - Chronic kidney disease, unspecified - Syncope and collapse - Other superintendent container terminal (current) drug therapy - 1 Type 2 diabetes mellitus without complications - 1 Hypertensive chronic kidney disease w stg 1-4/unsdesirae lilly - Allergy status to penicillin - Presence of coronary angioplasty implant and graft - terminal gauger (current) use of insulin - Dehydration 12/07/2018 16:25 [facility] TYPE: Emergency COMPLAINT: - HIGH BP DIAGNOSES: - Allergy status to penicillin - Other superintendent container terminal (current) drug therapy - jail (current) use of insulin - terminal gauger (current) use of aspirin - Personal history [...] atrial fibrillation - Essential (primary) hypertension - terminal gauger (current) use of insulin - Unspecified atrial fibrillation - Other viral pneumonia - Presence of coronary angioplasty implant and graft - Personal history of nicotine dependence - Personal history of nicotine dependence - terminal gauger (current) use of insulin - 1 Type 2 diabetes mellitus without complications - Essential (primary) hypertension - Hypomagnesemia - Psoriasis, unspecified - Athscl heart disease of [place] coronary artery w/o ang pctrs - Presence of coronary angioplasty implant and graft - 1 Type 2 diabetes mellitus without complications - Athscl heart disease of [place] coronary artery w/o ang pctrs - Psoriasis, unspecified [email or web address]
[2019-04-13] MEDS ORDERED: ONDANSETRON ODT4 MG SL (01:40)
== END 2019-04-13 01:45 | disposition home or self-care (01) ==
LOC: ED 00:48
DX: R11.2 Nausea with vomiting, unspecified (principal); T40.2X5A Adverse effect of other opioids, initial encounter; T36.8X5A Adverse effect of other systemic antibiotics, initial encounter; T36.1X5A Adverse effect of cephalosporins and other beta-lactam antibiotics, initial encounter; I10 Essential (primary) hypertension; E11.9 Type 2 diabetes mellitus without complications; I48.91 Unspecified atrial fibrillation; Z88.0 Allergy status to penicillin; Z79.4 Long term (current) use of insulin; Z79.899 Other long term (current) drug therapy; Z79.01 Long term (current) use of anticoagulants
CPT/HCPCS: 99283

== ENCOUNTER 2019-04-20 19:00 | Emergency (ER) | payer BC, OTHER ==
[~2019-04-20] VITALS: Ht 180.3 cm; Wt 95.2 kg
[~2019-04-20 19:00] MED LIST changes: +ONDANSETRON ODT4 MG SL
--- OUTSIDE RECORDS SUMMARY | 2019-04-20 19:02 | XMS ---
PreManage Notification: LIVE ROJAS Security Five Piece Expansion Maker Hand Events No recent Security Events currently on file CRITERIA MET - Group Notification - 6 ED Visits in 6 Months - [facility] - 2 Visits in 30 Days CARE PROVIDERS LORENZO COLE Physician Drill Rig Operator: Surgical 11/15/2017-Current PHONE: Unknown Name Unknown Usp Facility Current PHONE: [phone] Name Unknown Clinic/Center 02/12/2019-Current PHONE: [phone] LORENZO EUCEDA Primary Care 05/17/2016-Current PHONE: [phone] Alia has no Care Guidelines for this patient. Care History Medical/Surgical 01/22/2019 [facility] PATIENT- YELLOWHAW ELIGIBLE PLEASE REFER PATIENT TO [facility] FOR NON EMERGENT MEDICAL NEEDS. [facility] CAN SEE PATIENTS SAME DAY FOR APTS IF PATIENT CALLS FIRST THING IN THE MORNING. EGutierrez VISIT COUNT (12 MO.) 1 [facility] 8 [facility]. TOTAL 9 NOTE: Visits indicate total known visits. ED/UCC VISIT TRACKING (12 MO.) 04/20/2019 19:00 [facility] TYPE: Emergency COMPLAINT: - SHORTNESS OF BREATH 04/13/2019 00:49 [facility] TYPE: Emergency COMPLAINT: - MEDICATION REACTION/VOMITING DIAGNOSES: - Adverse effect of cephalospor/oth beta-lactm antibiot, init - Nausea with vomiting, unspecified - Adverse effect of other opioids, initial encounter - MCC (current) use of insulin - Unspecified atrial fibrillation - MCC (current) use of anticoagulants - 1 Type 2 diabetes mellitus without complications - Adverse effect of other systemic antibiotics, init encntr - Other detention (current) drug therapy - Essential (primary) hypertension - Allergy status to penicillin 04/09/2019 11:15 [facility] TYPE: Emergency COMPLAINT: - RIGHT LEG PAIN NON INJURY DIAGNOSES: - 1 Type 2 diabetes mellitus without complications - Allergy status to penicillin - long term acute care registered nurse (current) use of aspirin - Essential (primary) hypertension - Pain in right leg - Cellulitis of right lower limb - Other intermediate accountant (current) drug therapy - Unspecified atrial fibrillation - Cutaneous abscess of right lower limb - Acute embolism and thrombosis of right femoral vein - MCC (current) use of anticoagulants 04/07/2019 10:59 [facility] TYPE: Emergency COMPLAINT: - RIGHT LEG PROBLEM/ RECENT BIPASS SURGERY DIAGNOSES: - 1 Type 2 diabetes mellitus without complications - long term acute care registered nurse (current) use of anticoagulants - Unspecified atrial fibrillation - long term acute care registered nurse (current) use of aspirin - Other specified soft tissue disorders - MCC (current) use of oral hypoglycemic drugs - Other intermediate accountant (current) drug therapy - Essential (primary) hypertension - Allergy status to penicillin - Personal history of nicotine dependence 02/11/2019 03:11 [facility] TYPE: Emergency DIAGNOSES: - MCC (current) use of insulin - Acute ischemic heart disease, unspecified - 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 - Non-ST elevation (NSTEMI) myocardial infarction - 1 Chronic kidney disease, stage 4 (severe) - Chest pain, unspecified - 1 Chronic kidney disease, stage 3 (moderate) - Other acute kidney failure - Paroxysmal atrial fibrillation - Athscl heart disease of [place] coronary artery w/o ang pctrs - Hyperlipidemia, unspecified - Chest Pain 02/10/2019 22:57 [facility] TYPE: Emergency COMPLAINT: - SOB, CHEST PAIN DIAGNOSES: - Non-ST elevation (NSTEMI) myocardial infarction - Personal history of nicotine dependence - Essential (primary) hypertension - Other chest pain - long term acute care registered nurse (current) use of aspirin - 1 Type 2 diabetes mellitus without complications - Unspecified atrial fibrillation - Other intermediate accountant (current) drug therapy - Presence of coronary angioplasty implant and graft - Allergy status to penicillin 01/19/2019 20:32 [facility] TYPE: Emergency COMPLAINT: - BLOOD PRESSURE PROB DIAGNOSES: - long term acute care registered nurse (current) use of aspirin - Chronic kidney disease, unspecified - Syncope and collapse - Other intermediate accountant (current) drug therapy - 1 Type 2 diabetes mellitus without complications - 1 Hypertensive chronic kidney disease w stg 1-4/unsp mayra lilly - Allergy status to penicillin - Presence of coronary angioplasty implant and graft - long term acute care registered nurse (current) use of insulin - Dehydration 12/07/2018 16:25 [facility] TYPE: Emergency COMPLAINT: - HIGH BP DIAGNOSES: - Allergy status to penicillin - Other intermediate accountant (current) drug therapy - MCC (current) use of insulin - long term acute care registered nurse (current) use of aspirin - Personal history of nicotine dependence - Presence of coronary angioplasty implant and graft - Essential (primary) hypertension - 1 Type 2 diabetes mellitus without complications 04/22/2018:43 [facility] TYPE: Emergency COMPLAINT: - WEAKNESS/VOMITING INPATIENT VISIT TRACKING (12 MO.) 04/22/2018 10:21 [facility] TYPE: Medical Surgical COMPLAINT: - BILATERAL PNEUMONIA DIAGNOSES: - Hypomagnesemia - Unspecified atrial fibrillation - Essential (primary) hypertension - long term acute care registered nurse (current) use of insulin - Unspecified atrial fibrillation - Other viral pneumonia - Presence of coronary angioplasty implant and graft - Personal history of nicotine dependence - Personal history of nicotine dependence - long term acute care registered nurse (current) use of insulin - 1 Type 2 diabetes mellitus without complications - Essential (primary) hypertension - Hypomagnesemia - Psoriasis, unspecified - Athscl heart disease of [place] coronary artery w/o ang pctrs - Presence of coronary angioplasty implant and graft - 1 Type 2 diabetes mellitus without complications - Athscl heart disease of [place] coronary artery w/o ang pctrs - Psoriasis, unspecified [email or web address]
--- NOTE | 2019-04-21 13:51 | EKG ---
[facility] [address] [facility] [place] [address] Signed Sinus tachycardia Possible Left atrial enlargement ST \T\ T wave abnormality, consider inferolateral ischemia Abnormal ECG When compared with ECG of 10-FEB-2019 23:01, Criteria for Septal infarct are no longer present Confirmed by DIONISIO LINDA MD ([id number]) on 04/21/2019 1:51:17 PM Electronically Signed By: DIONISIO LINDA MD 04/21/19 1351 PATIENT NAME: LIVE ROJAS Aliza Electrocardiogram DATE OF : 67 PHYSICIAN: DIONISIO LINDA MD REPORT #: [id number] REPORT IS CONFIDENTIAL AND NOT TO BE RELEASED WITHOUT AUTHORIZATION
== END 2019-04-21 00:15 | disposition short-term general hospital (02) ==
LOC: ED 19:00
DX: J90 Pleural effusion, not elsewhere classified (principal); I10 Essential (primary) hypertension; E11.9 Type 2 diabetes mellitus without complications; I48.91 Unspecified atrial fibrillation; Z95.5 Presence of coronary angioplasty implant and graft; Z87.891 Personal history of nicotine dependence; Z88.0 Allergy status to penicillin; Z79.899 Other long term (current) drug therapy; Z79.84 Long term (current) use of oral hypoglycemic drugs; Z79.82 Long term (current) use of aspirin
CPT/HCPCS: 71045; 71250; 80053; 83735; 83880; 84484; 85025; 93005; 93010; 99285-25

== ENCOUNTER 2019-08-06 08:34 | Emergency (ER) | payer BC, OTHER ==
[~2019-08-06] VITALS: Ht 180.3 cm; Wt 95.2 kg
--- OUTSIDE RECORDS SUMMARY | 2019-08-06 08:38 | XMS ---
PreManage Notification: LIVE ROJAS Security Vending Supervisor Events No recent Security Events currently on file CRITERIA MET - Group Notification - 6 ED Visits in 6 Months - History of Sepsis Dx CARE PROVIDERS LORENZO COLE Physician Fiber Optic Splicer: Surgical 11/15/2017-Current PHONE: Unknown Name Unknown Halfway Facility Current PHONE: [phone] Name Unknown Clinic/Center 02/12/2019-Current PHONE: [phone] Alia has no Care Guidelines for this patient. Care History Medical/Surgical 01/22/2019 [facility] PATIENT- [facility] ELIGIBLE PLEASE REFER PATIENT TO [facility] FOR NON EMERGENT MEDICAL NEEDS. [facility] CAN SEE PATIENTS SAME DAY FOR APTS IF PATIENT CALLS FIRST THING IN THE MORNING. Melody VISIT COUNT (12 MO.) 1 [facility] 8 [facility] TOTAL 9 NOTE: Visits indicate total known visits. ED/C VISIT TRACKING (12 MO.) 08/06/2019 08:35 [facility] TYPE: Emergency COMPLAINT: - VISION PROBLEM 04/20/2019 19:00 [facility] TYPE: Emergency COMPLAINT: - SHORTNESS OF BREATH DIAGNOSES: - Unspecified atrial fibrillation - Pleural effusion, not elsewhere classified - Personal history of nicotine dependence - Shortness of breath - halfway (current) use of aspirin - Other ferry terminal agent (current) drug therapy - Presence of coronary angioplasty implant and graft - Essential (primary) hypertension - terminal manager (current) use of oral hypoglycemic drugs - Allergy status to penicillin - Type 2 diabetes mellitus without complications 04/13/2019 00:49 [facility] TYPE: Emergency COMPLAINT: - MEDICATION REACTION/VOMITING DIAGNOSES: - Adverse effect of cephalosporins and other beta-lactam antibi - Nausea with vomiting, unspecified - Adverse effect of other opioids, initial encounter - terminal manager (current) use of insulin - Unspecified atrial fibrillation - terminal manager (current) use of anticoagulants - Type 2 diabetes mellitus without complications - Adverse effect of other systemic antibiotics, initial encount - Other ferry terminal agent (current) drug therapy - Essential (primary) hypertension - Allergy status to penicillin 04/09/2019 11:15 [facility] TYPE: Emergency COMPLAINT: - RIGHT LEG PAIN NON INJURY DIAGNOSES: - Type 2 diabetes mellitus without complications - Allergy status to penicillin - terminal manager (current) use of aspirin - Essential (primary) hypertension - Pain in right leg - Cellulitis of right lower limb - Other ferry terminal agent (current) drug therapy - Unspecified atrial fibrillation - Cutaneous abscess of right lower limb - Acute embolism and thrombosis of right femoral vein - terminal manager (current) use of anticoagulants 04/07/2019 10:59 [facility] TYPE: Emergency COMPLAINT: - RIGHT LEG PROBLEM/ RECENT BIPASS SURGERY DIAGNOSES: - Type 2 diabetes mellitus without complications - terminal manager (current) use of anticoagulants - Unspecified atrial fibrillation - terminal manager (current) use of aspirin - Other specified soft tissue disorders - terminal manager (current) use of oral hypoglycemic drugs - Other ferry terminal agent (current) drug therapy - Essential (primary) hypertension - Allergy status to penicillin - Personal history of nicotine dependence 02/11/2019 03:11 [facility] TYPE: Emergency DIAGNOSES: - halfway (current) use of insulin - Acute ischemic heart disease, unspecified - Type 2 diabetes mellitus with diabetic chronic kidney disease - Non-ST elevation (NSTEMI) myocardial infarction - Chronic kidney disease, stage 4 (severe) - Chest pain, unspecified - Chronic kidney disease, stage 3 (moderate) - Other acute kidney failure - Paroxysmal atrial fibrillation - Atherosclerotic heart disease of [place] coronary artery witho - Hyperlipidemia, unspecified - Chest Pain 02/10/2019 22:57 [facility] TYPE: Emergency COMPLAINT: - SOB, CHEST PAIN DIAGNOSES: - Non-ST elevation (NSTEMI) myocardial infarction - Personal history of nicotine dependence - Essential (primary) hypertension - Other chest pain - terminal manager (current) use of aspirin - Type 2 diabetes mellitus without complications - Unspecified atrial fibrillation - Other custodial (current) drug therapy - Presence of coronary angioplasty implant and graft - Allergy status to penicillin 01/19/2019 20:32 [facility] TYPE: Emergency COMPLAINT: - BLOOD PRESSURE PROB DIAGNOSES: - terminal manager (current) use of aspirin - Chronic kidney disease, unspecified - Syncope and collapse - Other ferry terminal agent (current) drug therapy - Type 2 diabetes mellitus without complications - Hypertensive chronic kidney disease with stage 1 through stag - Allergy status to penicillin - Presence of coronary angioplasty implant and graft - terminal manager (current) use of insulin - Dehydration 12/07/2018 16:25 [facility] TYPE: Emergency COMPLAINT: - HIGH BP DIAGNOSES: - Allergy status to penicillin - Other custodial (current) drug therapy - halfway (current) use of insulin - halfway (current) use of aspirin - Personal history of nicotine dependence - Presence of coronary angioplasty implant and graft - Essential (primary) hypertension - Type 2 diabetes mellitus without complications INPATIENT VISIT TRACKING (12 MO.) 04/21/2019 01:37 [facility] Abhishek BOWMAN TYPE: Cardiac Surgery DIAGNOSES: - Thrombosis of atrium, auricular appendage, and ventricle as c - Anemia in chronic kidney disease - Other specified personal risk factors, not elsewhere classifi - Chronic kidney disease, stage 3 (moderate) - Acute embolism and thrombosis of right femoral vein - Paroxysmal atrial fibrillation - Essential (primary) hypertension - Presence of aortocoronary bypass graft - loculated pleural effusion - Unspecified severe protein-calorie malnutrition - Acute kidney failure, unspecified - Pleural effusion, not elsewhere classified - Unspecified open wound, right lower leg, initial encounter - terminal manager (current) use of anticoagulants [email or web address]
== END 2019-08-06 10:40 | disposition home or self-care (01) ==
LOC: ED 08:34
DX: H53.8 Other visual disturbances (principal); I10 Essential (primary) hypertension; E11.9 Type 2 diabetes mellitus without complications; I48.91 Unspecified atrial fibrillation; Z87.891 Personal history of nicotine dependence; Z88.0 Allergy status to penicillin; Z79.899 Other long term (current) drug therapy
CPT/HCPCS: 70450; 99284-25

== ENCOUNTER 2020-02-29 20:23 | Emergency (ER) | payer BC, OTHER ==
[~2020-02-29] VITALS: Ht 180.3 cm; Wt 95.3 kg
--- OUTSIDE RECORDS SUMMARY | 2020-02-29 20:26 | XMS ---
PreManage Notification: LIVE ROJAS Security Customer Service Receptionist Events No recent Security Events currently on file CRITERIA MET - Group Notification - History of Sepsis Dx CARE PROVIDERS LORENZO COLE Physician Appeals Representative: Surgical 11/15/2017-Current PHONE: Unknown Name [facility] Current PHONE: [phone] Name Unknown Clinic/Center 02/12/2019-Current PHONE: [phone] Alia has no Care Guidelines for this patient. Care History Medical/Surgical 01/22/2019 [facility] PATIENT- [facility] ELIGIBLE PLEASE REFER PATIENT TO [facility] FOR NON EMERGENT MEDICAL NEEDS. [facility] CAN SEE PATIENTS SAME DAY FOR APTS IF PATIENT CALLS FIRST THING IN THE MORNING. Melody VISIT COUNT (12 MO.) 6 MISTI Nolasco TOTAL 6 NOTE: Visits indicate total known visits. ED/UCC VISIT TRACKING (12 MO.) 02/29/2020 20:23 [facility] [place] TYPE: Emergency COMPLAINT: - COUGH 08/06/2019 08:35 [facility] [place] TYPE: Emergency COMPLAINT: - VISION PROBLEM DIAGNOSES: - Type 2 diabetes mellitus without complications - Other visual disturbances - Other visual disturbances - Essential (primary) hypertension - Allergy status to penicillin - Unspecified atrial fibrillation - Other retirement (current) drug therapy - Personal history of nicotine dependence 04/20/2019 19:00 [facility] [place] TYPE: Emergency COMPLAINT: - SHORTNESS OF BREATH DIAGNOSES: - Unspecified atrial fibrillation - Pleural effusion, not elsewhere classified - Personal history of nicotine dependence - Shortness of breath - premium service representative (current) use of aspirin - Other retirement (current) drug therapy - Presence of coronary angioplasty implant and graft - Essential (primary) hypertension - half-way (current) use of oral hypoglycemic drugs - Allergy status to penicillin - Type 2 diabetes mellitus without complications 04/13/2019 00:49 [facility] [place] TYPE: Emergency COMPLAINT: - MEDICATION REACTION/VOMITING DIAGNOSES: - Adverse effect of cephalosporins and other beta-lactam antibiotics, initial encounter - Nausea with vomiting, unspecified - Adverse effect of other opioids, initial encounter - half-way (current) use of insulin - Unspecified atrial fibrillation - premium service representative (current) use of anticoagulants - Type 2 diabetes mellitus without complications - Adverse effect of other systemic antibiotics, initial encounter - Other marine insulator (current) drug therapy - Essential (primary) hypertension - Allergy status to penicillin 04/09/2019 11:15 [facility] [place] TYPE: Emergency COMPLAINT: - RIGHT LEG PAIN NON INJURY DIAGNOSES: - Type 2 diabetes mellitus without complications - Allergy status to penicillin - premium service representative (current) use of aspirin - Essential (primary) hypertension - Pain in right leg - Cellulitis of right lower limb - Other marine insulator (current) drug therapy - Unspecified atrial fibrillation - Cutaneous abscess of right lower limb - Acute embolism and thrombosis of right femoral vein - premium service representative (current) use of anticoagulants 04/07/2019 10:59 [facility] [place] TYPE: Emergency COMPLAINT: - RIGHT LEG PROBLEM/ RECENT BIPASS SURGERY DIAGNOSES: - Type 2 diabetes mellitus without complications - half-way (current) use of anticoagulants - Unspecified atrial fibrillation - half-way (current) use of aspirin - Other specified soft tissue disorders - premium service representative (current) use of oral hypoglycemic drugs - Other retirement (current) drug therapy - Essential (primary) hypertension - Allergy status to penicillin - Personal history of nicotine dependence INPATIENT VISIT TRACKING (12 MO.) 04/21/2019 01:37 [facility] TYPE: Cardiac Surgery DIAGNOSES: - Thrombosis of atrium, auricular appendage, and ventricle as current complications following acute myocardial infarction - Anemia in chronic kidney disease - Other specified personal risk factors, not elsewhere classified - Chronic kidney disease, stage 3 (moderate) - Acute embolism and thrombosis of right femoral vein - Paroxysmal atrial fibrillation - Essential (primary) hypertension - Presence of aortocoronary bypass graft - loculated pleural effusion - Unspecified severe protein-calorie malnutrition - Acute kidney failure, unspecified - Pleural effusion, not elsewhere classified - Unspecified open wound, right lower leg, initial encounter - half-way (current) use of anticoagulants [email or web address]
[2020-02-29] MEDS ORDERED: TESSALON PERLE100 MG PO (21:00)
== END 2020-02-29 21:16 | disposition home or self-care (01) ==
LOC: ED 20:23
DX: J20.9 Acute bronchitis, unspecified (principal); I10 Essential (primary) hypertension; E11.9 Type 2 diabetes mellitus without complications; I48.91 Unspecified atrial fibrillation; Z88.0 Allergy status to penicillin; Z79.4 Long term (current) use of insulin; Z79.899 Other long term (current) drug therapy; Z79.82 Long term (current) use of aspirin
CPT/HCPCS: 71046; 99283-25

== ENCOUNTER 2020-09-03 18:15 | Emergency (ER) | payer BC, OTHER ==
[~2020-09-03] VITALS: Ht 180.3 cm; Wt 95.2 kg
[~2020-09-03 18:15] MED LIST changes: -ASPIR 8181 MG PO; +ASPIRIN EC325 MG PO; +COZAAR100 MG PO; -GLUCOPHAGE500 MG PO; -NORVASC10 MG PO; +NORVASC2.5 MG PO; +TESSALON PERLE100 MG PO; -TOPROL XL100 MG PO; +TOPROL XL50 MG PO; +VITAMIN D3125 MC2 PO; -VITAMIN D35000 UNIT PO
--- OUTSIDE RECORDS SUMMARY | 2020-09-03 18:18 | XMS ---
PreManage Notification: LIVE ROJAS Security Catering Service Manager Events No recent Security Events currently on file CRITERIA MET - Group Notification - History of Sepsis Dx CARE PROVIDERS LORENZO COLE Physician Psychologist Industrial Organizational: Surgical 11/15/2017-[facility] PHONE: Unknown [facility] Fdc Facility [facility] \F\ [facility] [employer] Systems[employer]ATY PHONE: [phone] [facility] 02/12/2019-[facility] PHONE: [phone] Alia has no Care Guidelines for this patient. Care History Medical/Surgical 01/22/2019 [facility] PATIENT- [facility] ELIGIBLE PLEASE REFER PATIENT TO [facility] FOR NON EMERGENT MEDICAL NEEDS. [facility] CAN SEE PATIENTS SAME DAY FOR APTS IF PATIENT CALLS FIRST THING IN THE MORNING. Melody VISIT COUNT (12 MO.) 2 MISTI Nolasco TOTAL 2 NOTE: Visits indicate total known visits. ED/UCC VISIT TRACKING (12 MO.) 09/03/2020 18:15 [facility] [place] TYPE: Emergency COMPLAINT: - CRAMPING 02/29/2020 20:[address] [facility] [place] TYPE: Emergency COMPLAINT: - COUGH DIAGNOSES: - Type 2 diabetes mellitus without complications - Other buttermaker helper (current) drug therapy - rat exterminator (current) use of aspirin - Allergy status to penicillin - nursing home (current) use of insulin - Essential (primary) hypertension - Cough - Acute bronchitis, unspecified - Unspecified atrial fibrillation INPATIENT VISIT TRACKING (12 MO.) No inpatient visits to display in this time frame [email or web address]
--- NOTE | 2020-09-05 11:38 | EKG ---
[facility] [address] [place], [place] [address] Signed Normal sinus rhythm T wave abnormality, consider inferior ischemia Abnormal ECG When compared with ECG of 20-APR-2019 20:16, No significant change was found Confirmed by NANY GRAVES DO ([id number]) on 09/05/2020 11:38:14 AM Electronically Signed By: NANY GRAVES DO 09/05/20 1138 PATIENT NAME: LIVE ROJAS Electrocardiogram DATE OF : 67 PHYSICIAN: NANY GRAVES DO REPORT #: [id number] REPORT IS CONFIDENTIAL AND NOT TO BE RELEASED WITHOUT AUTHORIZATION
== END 2020-09-03 22:01 | disposition home or self-care (01) ==
LOC: ED 18:15
DX: E83.42 Hypomagnesemia (principal); E83.51 Hypocalcemia; R25.2 Cramp and spasm; I10 Essential (primary) hypertension; E11.9 Type 2 diabetes mellitus without complications; I48.91 Unspecified atrial fibrillation; Z88.0 Allergy status to penicillin; Z79.899 Other long term (current) drug therapy; Z79.4 Long term (current) use of insulin; Z79.82 Long term (current) use of aspirin
CPT/HCPCS: 80053; 83735; 84484; 85025; 93005; 93010; 96374; 99284-25; J3475; J7030

== ENCOUNTER 2020-11-09 22:22 | Inpatient (IN) | payer BC, OTHER ==
[~2020-11-09] VITALS: Ht 180.3 cm; Wt 86.5 kg
--- OUTSIDE RECORDS SUMMARY | 2020-11-09 22:24 | XMS ---
PreManage Notification: LIVE ROJAS Security Radio Broadcaster Events No recent Security Events currently on file CRITERIA MET - Group Notification CARE PROVIDERS LORENZO COLE Physician Advertising Intern: Surgical 11/15/2017-[facility] PHONE: Unknown [facility] Custodial [facility] Current PHONE: [phone] [facility] 02/12/2019-[facility] PHONE: [phone] Alia has no Care Guidelines for this patient. Care History Medical/Surgical 01/22/2019 [facility] PATIENT- [facility] ELIGIBLE PLEASE REFER PATIENT TO [facility] FOR NON EMERGENT MEDICAL NEEDS. [facility] CAN SEE PATIENTS SAME DAY FOR APTS IF PATIENT CALLS FIRST THING IN THE MORNING. Melody VISIT COUNT (12 MO.) 3 MISTI Nolasco TOTAL 3 NOTE: Visits indicate total known visits. ED/UCC VISIT TRACKING (12 MO.) 11/09/2020 22:23 [facility] TYPE: Emergency COMPLAINT: - RT LEG PAIN 09/03/2020 18:15 [facility] [place] TYPE: Emergency COMPLAINT: - DEHYDRATION CRAMP DIAGNOSES: - Cramp and spasm - Other panel machine setter (current) drug therapy - Dehydration - Allergy status to penicillin - Type 2 diabetes mellitus without complications - Unspecified atrial fibrillation - Hypomagnesemia - Cramp and spasm - electric deicer inspector (current) use of aspirin - Hypocalcemia - halfway (current) use of insulin - Essential (primary) hypertension 02/29/2020 20:23 [facility] [place] TYPE: Emergency COMPLAINT: - COUGH DIAGNOSES: - Type 2 diabetes mellitus without complications - Other panel machine setter (current) drug therapy - electric deicer inspector (current) use of aspirin - Allergy status to penicillin - electric deicer inspector (current) use of insulin - Essential (primary) hypertension - Cough - Acute bronchitis, unspecified - Unspecified atrial fibrillation INPATIENT VISIT TRACKING (12 MO.) No inpatient visits to display in this time frame [email or web address]
[2020-11-10] MEDS ORDERED: MAGNESIUM250 M1 PO (00:40)
--- NOTE | 2020-11-10 01:25 | NUR ---
alert and oriented, on room air, coop with assessment, aware of NPO status, oral swabs given and used. lungs clear dim at bases, area between R buttocks and scrotum very tender, hard to touch, warm, not open. repositioned to L side for comfort. has psoriaris dry scabbed over areas all over arms, abd, back, legs. very dry skin on feet. Open areas between L big toes, and ball of foot. R foot open area between R big and second toes. moist. R leg more edematous than L, pt stated since he had a vein stripping done in that leg for his CABG. IVF infusing, no c/o adverse reaction to abx. Pt BP has been elevated since admitting to ED, received Klonidine in ED. bp on admit was 214/110. aware
--- NOTE | 2020-11-10 01:49 | NUR ---
dr hardy notified of pts 101.9 temp. new orders for tylenol and BC obtained
--- NOTE | 2020-11-10 01:52 | NUR ---
WARM BLANKETS REMOVED. PT AWARE. TOOK TYLENOL W/O PROBLEMS
--- NOTE | 2020-11-10 03:17 | NUR ---
temp 98.0, coop with assessment, ivf infusing. aware of need to void. repositioned in bed and urinal given. NPO did own mouth care
--- NOTE | 2020-11-10 03:30 | NUR ---
voided yellow urine, sample sent to lab
--- NOTE | 2020-11-10 06:17 | NUR ---
DR VASQUEZ IN ROOM TALKING TO PT. PT AFEBRILE
--- NOTE | 2020-11-10 06:18 | NUR ---
PT ADMITTED FROM ED EARLIER THIS AM. TEMP 101.9, RECEIVED TYLENOL, BC AND LACTIC ACID WERE DRAWN, UA OBTAINED AND SENT TO LAB. CURRNT TEMP 98.5, MED EFFECTIVE, ALERT AND ORIENTED, ON ROOM AIR. INCREAED EDEMA TO R PROXIMAL SCROTAL/PERIRECTUM AREA , TENDER, FIRM TO TOUCH. VERY PAINFUL PER PT, HAS DENIED NEED FOR PAIN MED. IVF INFUSING. HAS PSORIASIS ALL OVER THE BODY. R LEG MORE EDEMATOUS THAN LEFT. NPO DOES OWN MOUTH CARE. BP ON ADMIT WAS 214/110 AND WAS MEDICATED IN ED WUTG CLONIDINE, BP AT THIS TIME 103/60. COOPERATIVE, ON ROOM AIR. SEEN BY DR VASQUEZ
--- NOTE | 2020-11-10 07:09 | CONS ---
[facility] [address] [place], [place] [address] Signed DATE OF CONSULTATION: 11/10/2020 HISTORY OF PRESENT ILLNESS: Shai is a 55-year-old diabetic gentleman with psoriasis who has had various abscesses drained over the years. He has had certainly one on his neck and one on his right foot. About four days ago, he felt like he had a boil on his buttock area and/or perineum. It has gotten progressively worse. It is more swollen and more tender and warm. He finally came to the emergency room last night for evaluation. I had been asked to admit him as a general surgeon on-call. He has been given cefepime and Flagyl. PAST MEDICAL HISTORY: 1. Diabetes. 2. Hypertension. 3. Atrial fibrillation. 4. Psoriasis. PAST SURGICAL HISTORY: 1. Cardiac stents. 2. CABG x4 in 2019. 3. Appendectomy. 4. I and D of cervical abscess. 5. I and D of right foot abscess in 2014. SOCIAL HISTORY: He does not smoke or drink. Dr. Alex Davis is his primary care provider. Yasmine Ware is his friend at [phone]. FAMILY HISTORY: None. REVIEW OF SYSTEMS: He had 10 systems reviewed and nothing new was found. ALLERGIES: Penicillin. MEDICATIONS: 1. Insulin. 2. Xarelto. 3. Aspirin. 4. Metoprolol. 5. Fenofibrate. 6. Amlodipine. Electronically Signed By: JOAQUIN VASQUEZ MD 11/10/20 0709 PATIENT NAME: LIVE ROJAS CONSULTATION DATE OF : 67 REPORT #: [id number] PHYSICIAN: JOAQUIN VASQUEZ MD PCP: ALEX DAVIS MD REPORT IS CONFIDENTIAL AND NOT TO BE RELEASED WITHOUT AUTHORIZATION [facility] [address] [place], [place] [address] Signed 7. Vitamin D. 8. Metformin. 9. Lisinopril. PHYSICAL EXAMINATION: VITAL SIGNS: His blood pressure is 126/71, heart rate is 93, his respiratory rate is 16, his temperature is 98.3. He is 97% on room air. He is 5 feet 11 inches at 86 kg. GENERAL: Shai is a 55-year-old gentleman who appears older than his stated age. He is lying supine in his hospital bed. He is not systemically ill or toxic. He is very pleasant to talk to and cooperative. LUNGS: Clear to auscultation bilaterally. HEART: Regular rate and rhythm without murmur. ABDOMEN: Soft and flat. On his perineum, he has an area that is swollen, indurated and tender. It is a little warm. LABORATORY DATA: His white blood cell count is 13.1, hemoglobin 13, neutrophils 84, BUN 46, creatinine 2.47. Lactic acid is 1. BNP is 231. LFTs are negative. Albumin is 3.3. Urinalysis shows protein. He has had blood cultures drawn and they are pending. RADIOGRAPHIC STUDIES: None. ASSESSMENT AND PLAN: Shai is a 55-year-old gentleman who presents with a perineal abscess. He has been admitted and started on his antibiotics. Shai is well aware we will need to take him to the operating room later today and incise and drain this area. I will be out of town starting tomorrow and Dr. Garcia will take over my absence. We will have our Internal Medicine Service help us with his medical issues particularly the diabetes. He is well aware there is risk to the surgery including, but not limited to bleeding, infection, scarring, change in contour of the skin as well as recurrent abscesses in the same or other locations. He has expressed understanding and would like to proceed as above. Joaquin Vasquez MD ALB/MODL /[id number] Electronically Signed By: JOAQUIN VASQUEZ MD 11/10/20 0709 PATIENT NAME: LIVE ROJAS CONSULTATION DATE OF : 67 REPORT #: [id number] PHYSICIAN: JOAQUIN VASQUEZ MD PCP: ALEX DAVIS MD REPORT IS CONFIDENTIAL AND NOT TO BE RELEASED WITHOUT AUTHORIZATION [address] [address] Signed cc: MD Alex Heaton MD Copies: JOAQUIN VASQUEZ MD, JAMES MD ~ Electronically Signed By: JOAQUIN VASQUEZ MD 11/10/20 0709 PATIENT NAME: LIVE ROJAS CONSULTATION DATE OF : 67 REPORT #: [id number] PHYSICIAN: JOAQUIN VASQUEZ MD PCP: ALEX DAVIS MD REPORT IS CONFIDENTIAL AND NOT TO BE RELEASED WITHOUT AUTHORIZATION
--- NOTE | 2020-11-10 07:47 | NUR ---
PT ALERT AND INTRACTIVE AT TIME OF BEDSIDE REPORT. CONTINUES NPO STATUS DENIES DISCOMFORTS OR NEEDS OF. BOTH DR VASQUEZ AND DR SIN IN TO SEE THIS PT, ALL QUESTIONS ANSWERED PLANS GOING FORWARD DISCUSSED.
--- NOTE | 2020-11-10 10:25 | NUR ---
PT CONTINUES RESTING IN BED REPORTS HE CANNOT SIT BECAUSE OF PERINEAL PAIN. DOWN TO CT VIA BED RETURNS TO THE ROOM. DENIES NEEDS AT THIS TIME. PRE-OP EDUCATION PROVIDED ALL QUESTIONS ANSWERED
--- NOTE | 2020-11-10 11:00 | NUR ---
It was my pleasure to check in on Mr. Robertson today regarding his care here in the hospital. Mr. Robertson was admitted to the medical floor after being seen in the emergency department. In regards to his care, Mr. Robertson states that the "care has been excellent" in both the ED and on the medical floor. Mr. Robertson feels that the staff members are answering his call light in a timely fashion, and he confirmed that staff members were explaining his medications to him with the possible side effects that might be associated with the medication. He also agrees that his pain is being controlled, and he is satisfied with the cleanliness of his room. Mr. Robertson is pleasant to converse with and he answers questions appropriately, being oriented also to person, place and time. Mr. Robertson expresses no patient care concerns at this time and he denies any needs at this time.
--- NOTE | 2020-11-10 11:11 | NUR ---
PT BACK TO THE ROOM UNDERGARMENT CHANGED.
[2020-11-10] MEDS ORDERED: OTEZLA30 MG PO (11:23)
[2020-11-10] MEDS ORDERED: CLOBETASOL PROP15 GM TOP (11:33)
[2020-11-10] MEDS ORDERED: FOLIC ACID1 MG PO (11:34)
[2020-11-10] MEDS ORDERED: LASIX80 MG PO (11:35)
[2020-11-10] MEDS ORDERED: INSULIN LI100 UNIT/2 SUB-Q (11:40)
[2020-11-10] MEDS ORDERED: XARELTO15 MG PO (11:42)
[2020-11-10] MEDS ORDERED: CRESTOR20 MG PO (11:43)
[2020-11-10] MEDS ORDERED: METHOTREXATE2.5 MG PO (11:45)
--- NOTE | 2020-11-10 11:46 | NUR ---
INTO PATIENT ROOM TO ATTEMPT ASSESSMENT, PATIENT SLEEPING. PATIENT DOES NOT WAKE TO VOICE. PER STAFF PATIENT NOT SCHEDULED FOR OR UNTIL AFTER 1700 THIS EVENING. WILL RETURN TO SEE PATIENT AT LATER TIME.
--- NOTE | 2020-11-10 12:47 | NUR ---
STOPPED TWICE TO SEE PATIENT, SLEEPING SOUNDLY. CM WILL CONTINUE TO FOLLOW.
--- NOTE | 2020-11-10 14:28 | NUR ---
PATIENT IN BED RESTING. VITALS AND I&O'S CHARTED. CALL LIGHT IN REACH. NO FURTHER NEEDS AT THIS TIME.
--- NOTE | 2020-11-10 14:33 | NUR ---
PT ALERT, ORIENTED AND SITTING IN QUIET RM IN BED. HE WELCOMED ME IN, IT HAS PLEASANT VISIT. PT BEGAN T SHARE WITH ME HIS PAIN IS A 3, DOWN FROM 10 LAST NIGHT. PT SHARED CONCERN HE HAS FOR HIS DAUGHTER IN HOSP IN [facility] WITH TROUBLE WITH . PT REQUESTED PRAYER, LEFT G.POST AND BLESSING
[2020-11-10] MEDS ORDERED: IMODIUM A-D2 M2 PO (15:22)
--- NOTE | 2020-11-10 15:22 | NUR ---
PT USES CALL LIGHT TO SAY HE'S NAUSEATED. PT WRETCHING NO EMESIS. ZOFRAN ADMINISTERED. NO FURTHER HEAVING AT THIS TIME. MOUTH WASH AND COOL CLOTH PROVIDE.
--- NOTE | 2020-11-10 15:23 | NUR ---
MED REC COMPLETE
--- NOTE | 2020-11-10 17:35 | EKG ---
[facility] [address] [facility] [address] [place] [address] Signed Normal sinus rhythm T wave abnormality, consider inferolateral ischemia Abnormal ECG When compared with ECG of 03-SEP-2020 18:23, No significant change was found Confirmed by PAULA LAKHANI MD ([id number]) on 11/10/2020 5:34:49 PM Electronically Signed By: PAULA LAKHANI MD 11/10/20 1735 PATIENT NAME: LIVE ROJAS Electrocardiogram DATE OF : 67 PHYSICIAN: PAULA LAKHANI MD REPORT #: [id number] REPORT IS CONFIDENTIAL AND NOT TO BE RELEASED WITHOUT AUTHORIZATION
--- NOTE | 2020-11-10 17:37 | NUR ---
11/10/20 1737 Ashleigh Eil 1732- PT ARRIVES TO PACU AROUSABLE TO STIMULI. PT DOES NOT ANSWER QUESTIONS AT THIS TIME AND FALLS BACK TO SLEEP. RESP 20-24 AND EVEN. OXYGEN SAT HIGH 90'S TO 100% ON 6L VIA MASK.
--- NOTE | 2020-11-10 18:08 | NUR ---
PT BACK TO ROOM FROM O/R VIA GURHERSON ABLE TO SELF TRANSFER TO BED WIT USE OF THE TRAPEZE. PT IS ALERT AND COOPERATIVE BUT DOZES OFF EASILY WHEN IT'S QUIET. DENIES PAIN OR DISCOMFORTS. SCD'S IN PLACE IV INFUSING. LUNCH BOX ORDERED FOR LATER IN THE EVENING H20 AT BEDSIDE. PT RESTING EYES CLOSED
--- NOTE | 2020-11-10 18:37 | NUR ---
PT RESTING EYES CLOSED AWAKENS TO VOICE RETURNS TO DOZING
--- NOTE | 2020-11-10 19:33 | NUR ---
REPORT RECEIVED FROM ROCAEL DELEON. pt RESTING IN BED WITH EYES CLOSED, BREATHING UNLABORED. SPO2 WNL ON RA, CPOX IN PLACE.
--- NOTE | 2020-11-10 21:18 | NUR ---
IN pt ROOM FOR SCHEDULED MEDICATION ADMINISTRATION. pt WITH LABORED BREATHING, HOLDING ONTO TRAPEZE TO ATTEMPT TO RELIEVE PRESSURE FROM MELANIE AREA. PRN PAIN MEDICATION ADMINISTERED FOR 8/10 PAIN. pt EATING JELLO AT THIS TIME. ICE WATER REFILLED. SEROSANGUINOUS DRAINAGE NOTED ON GAUZE PAD, MESH UNDERWEAR IN PLACE. pt DESCRIBES PAIN "BURNING". SPO2 WNL ON RA. PHONE CALL FROM PATIENT'S DAUGHTER, PATIENT NOTIFIED, PHONE NUMBER FOR DAUGHTER PROVIDED. IV SITE FLUSHED WNL AND IV ANTIBIOTIC INFUSING.
--- NOTE | 2020-11-10 21:26 | NUR ---
CALL LIGHT ANSWERED. pt C/O NAUSEA, SMALL AMT FLIPLLO COUGHED UP. RN ENTERS ROOM WITH ANTIEMETIC, pt REFUSES MEDICATION AT THIS TIME. pt AWAKE, ALERT, ON CELL PHONE. CALL LIGHT IN REACH.
--- NOTE | 2020-11-10 22:14 | NUR ---
CALL LIGHT ANSWERED. pt NAUSEOUS, SMALL AMT JELLO SPIT UP IN CUP, EMESIS BAG IN HAND. PRN NAUSEA MEDICATION ADMINISTERED. IV ANTIBIOTICS INFUSING WNL ORDERED. CALL LIGHT IN REACH. pt ASSISTED TO REPOSITION FOR COMFORT.
--- NOTE | 2020-11-10 23:10 | NUR ---
IV PUMP BEEPING, IV ANTIBIOTIC COMPLETE. pt SLEEPING, SPO2 WNL ON RA. BREATHING UNLABORED. LIGHTS OFF IN ROOM.
--- NOTE | 2020-11-11 00:38 | NUR ---
CALL LIGHT ANSWERED. pt NAUSEOUS, DRY HEAVING, SMALL AMT IN EMESIS BAG, ORANGE FROM JELLO. PRN NAUSEA MEDICATION ADMINISTERED. ICE WATER REFILLED. CALL LIGHT IN REACH.
--- NOTE | 2020-11-11 02:50 | NUR ---
pt SLEEPING, AWAKENS TO VOICE. VSS. pt RATES PAIN "LIKE A 1/10". DENIES ANY NEEDS. SPO2 WNL ON RA. LIGHTS OFF IN ROOM. CALL LIGHT IN REACH.
--- NOTE | 2020-11-11 06:44 | NUR ---
pt AWAKENS TO VOICE FOR IV ANTIBIOTIC. RATES PAIN 4/10 UPON WAKENING IN HIS PERINEUM, BURNING. PACKING IN PLACE, SS DRAINAGE. MELANIE PAD CHANGED. IV SITE FLUSHED, PAINFUL. SWELLING NOTED ABOVE IV SITE. NEW IV STARTED IN LEFT HAND BY SENIOR TELECOMMUNICATIONS ENGINEER ROCAEL KENNY. IV ANTIBIOTIC INFUSING WNL. PRN PAIN MEDICATION ADMINISTERED, AFTER 40 MINS, pt CONTINUES TO BE PAINFUL, SECOND PAIN PILL ADMINISTERERED REQUESTED FOR 7/10 REPORTED PAIN WITH MOVEMENT IN BED. ASSESSMENT COMPLETE. CALL LIGHT IN REACH.
--- NOTE | 2020-11-11 07:20 | NUR ---
REPORT RECIEVED FROM NIGHT RUBÉN COTE
--- NOTE | 2020-11-11 07:39 | NUR ---
MORNING ASSESSMENT DONE. PATIENT RATES MELANIE AREA PAIN 3/10 POST ORAL PAIN MEDICATIONS. BLOOD GLUCOSE IS 86 THIS MORNING WITH NO INSULIN COVERAGE, METFORMIN GIVEN WITH BREAKFAST. PACKING IS INTACT TO PERIANAL AREA, MESH UNDERWEAR TO COVER. PATIENT UP TO CHAIR FOR BREAKFAST WITH ONE PERSON ASSIST. NO OTHER NEEDS AT THIS TIME.
--- NOTE | 2020-11-11 08:23 | NUR ---
PT AWAKE IN BED. PT AMBULATED TO CHAIR FROM BED WITH ROCAEL KRISHNA AND THIS MULTIMEDIA DEVELOPER IN ROOM. PT WAS GIVEN WARM CLOTH FOR FACE. WHITE BOARD UPDATED. CALL LIGHT WITHIN REACH. FRESH ICE WATER GIVEN. NO FURTHER NEEDS AT THIS TIME.
--- NOTE | 2020-11-11 08:33 | OR ---
[facility] [address], [place] [address] Signed DATE OF OPERATION: SURGEON: Joaquin Vasquez MD PREOPERATIVE DIAGNOSIS: Right perineal abscess. POSTOPERATIVE DIAGNOSIS: Right perineal abscess. PROCEDURES: 1. Incision and drainage of perineal abscess. 2. Wound culture. ESTIMATED BLOOD LOSS: None. FINDINGS: The abscess started on the right side of the perineum and was working its way towards the base of the scrotum. He also has a large left hydrocele. INDICATIONS: Shai is a 55-year-old noncompliant diabetic gentleman, who has had various abscesses drained on his body including his neck and his right foot. He developed what he thought was a small boil on his perineum. It became progressively worse. He said he has not taken any meds at least for four days. He finally came to the emergency room for evaluation as it was getting worse. He also has psoriasis on his skin, but none in this area. He came to the emergency room and was admitted last night with an elevated white count. Lactic acid was fine. He also has chronic renal failure. He has had blood cultures taken as well. We did ask our urologist to consult this morning and we ordered a CT scan of the abdomen and pelvis to make sure there was no gas tracking up in other areas of the body. It all seems to be superficial. I had met with Shai earlier this morning. I had reviewed all the above findings with him. I explained to him this would need to be incised and drained and packed open at least for a day or two. He is going to need antibiotics as well. Generally these will heal in by secondary intention. He had expressed understanding and wished to proceed. He understands there is risk including, but not limited to bleeding, infection, scarring, change in contour of the skin as well as recurrent abscesses in the same or other locations. DESCRIPTION OF PROCEDURE: I met with Shai in our preop area. After answering his questions, he was given a saddle Electronically Signed By: JOAQUIN VASQUEZ MD 11/11/20 0833 PATIENT NAME: LIVE ROJAS OPERATIVE REPORT DATE OF : 67 REPORT #: [id number] PHYSICIAN: JOAQUIN VASQUEZ MD PCP: ALEX JOVEL MD REPORT IS CONFIDENTIAL AND NOT TO BE RELEASED WITHOUT AUTHORIZATION [facility] [address], [place] [address] Signed block by our nurse machine silver stripper. He was then taken in the operating room and placed in the supine lithotomy position under monitored anesthesia care. He was on preoperative antibiotics along with subcutaneous heparin. SCDs were utilized. We initially tried to place a Costello catheter, but the urethral meatus was quite small, so we abandoned that effort. He was then prepped and draped in the usual sterile fashion. There was a small opening with some pus coming out just to the right of the midline of the perineum. That was opened with the cautery and probably 5-7 mL of pus came out and it was cultured. The wound was irrigated and we extended that incision towards the base of the scrotum, so that it extended about 1.5 cm. The wound was irrigated and suctioned out until clear. I explored the wound with the tip of my index finger. After this, local anesthetic was injected into the skin around the area. We then packed the wound with Dakin's soaked gauze. It was covered with dry fluffs and underwear. He was then transferred over to his hospital bed and taken into recovery room in stable condition. Joaquin Vasquez MD ALB/MODL /[id number] cc: MD Alex Heaton MD Copies: JOAQUIN VASQUEZ MD, JAMES MD ~ Electronically Signed By: JOAQUIN VASQUEZ MD 11/11/20 0833 PATIENT NAME: LIVE ROJAS OPERATIVE REPORT DATE OF : 67 REPORT #: [id number] PHYSICIAN: JOAQUIN VASQUEZ MD PCP: ALEX JOVEL MD REPORT IS CONFIDENTIAL AND NOT TO BE RELEASED WITHOUT AUTHORIZATION
--- NOTE | 2020-11-11 08:40 | NUR ---
DR. VASQUEZ IN TO SEE PATIENT.
--- NOTE | 2020-11-11 09:10 | NUR ---
DR. VASQUEZ IN TO SEE PATIENT. PATIENT MAY SHOWER, PACKING OUT AND LEAVE OUT.
--- NOTE | 2020-11-11 09:25 | NUR ---
BLOOD DRAWN FROM LEFT HAND IV FOR LAB. PATIENT UP TO CHAIR, RATES PAIN 3/10, STILL EATING BREAKFAST. IV CEFAPIME INFUSING FOR 4 HOURS. PLAN TO SHOWER PATIENT THIS AFTERNOON.
--- NOTE | 2020-11-11 10:28 | NUR ---
PT AWAKE IN ROOM UP IN CHAIR VISITING WITH FAMILY IN THE ROOM. WINDOW SHADES ADJUSTED. CALL LIGHT WITHIN REACH. NO FURTHER NEEDS AT THIS TIME
--- NOTE | 2020-11-11 11:10 | NUR ---
I was able to visit with Shai today. Shai was in his chair and talking on his cell phone when I entered the room. He did take a few minutes to visit with me in the room today. Shai does acknowledge that he is happy with the care he is receiving in the hospital. He is aware that he has packing in his wound site that will need to be removed when he showers. He is also able to verbalize that he is being given IV antibiotics. He relates that his pain is fairly well controlled at this time, and he is oriented to person, place, and time. Mr. Robertson has no questions or concerns expressed to me at this time.
--- NOTE | 2020-11-11 11:53 | NUR ---
PATIENT UP TO CHAIR. BLOOD GLUCOSE IS 153 AND REQUIRES ONE UNIT OF REGULAR INSULIN. PATIENT RATES MELANIE PAIN "LOW" AND IS COMFORTABLE SITTING IN THE CHAIR. PLAN TO GIVE ORAL PAIN MEDICATIONS AFTER 1230.
--- NOTE | 2020-11-11 13:32 | NUR ---
VITALS DONE. PATIENT HAS YET TO VOID.
--- NOTE | 2020-11-11 14:40 | NUR ---
PT SITTING UP IN CHAIR-AID IT WAS PAINFUL TO MOVE FROM BED TO CHAIR. RESTING PAIN 3-4. MOVING PAIN JUMPS UP TO 5-6. SPEPT WELL, GAVE ENCOURAGEMENT AND BLESSING. WILL FOLLOW
--- NOTE | 2020-11-11 15:10 | NUR ---
Short conversation with pt as he is attempting to get into the shower. States he has had multiple IV antibiotics and has not been able to shower today. Pt lives with daughter, who is and currently in the hospital on bed rest. Pt will go home alone. Lives in a 1 level apartment without steps. Denies financial issues. He is [place] and will have good support from [facility] and staff. He sees Dr. Davis at [facility]. Denies any needs at this time for discharge. Per Dr. Porter and Dr. Shaw will remain a couple more days on antibiotics and for wound care. Will follow up with pt tomorrow again to check for needs.
--- NOTE | 2020-11-11 15:29 | NUR ---
PATIENT SALINE LOCKED, IV WRAPPED. PATIENT UP TO SHOWER, TOLERATING ACTIVITY FAIRLY WELL. PATIENT MEDICATED WITH X2 NORCO BEFORE ACTIVITY. DISCUSSED WITH PATIENT ABOUT SOAPING SURGICAL INCISION SITE AND RINSING WELL. FRESH GOWN, MESH UNDERWEAR AND MELANIE-PAD IN PLACE.
--- NOTE | 2020-11-11 15:46 | NUR ---
PATIENT RESTING IN BED AFTER SHOWER, LAYING ON RIGHT SIDE, PILLOW BETWEEN KNEES. IVF RESUMED.
--- NOTE | 2020-11-11 16:42 | NUR ---
PATIENT BLOOD GLUCOSE IS 136 AND DOES NOT REQUIRE COVERAGE. PATIENT RATES MELANIE-ANAL PAIN 4/10 AND IS COMFORTABLY RESTING AT THIS TIME.
--- NOTE | 2020-11-11 17:56 | NUR ---
PT AWAKE IN BED LISTENING TO MUSIC. CALL LIGHT WITHIN REACH. NO FURTHER NEEDS AT THIS TIME.
--- NOTE | 2020-11-11 19:20 | NUR ---
bedside report from isamar rn, pt has call light, denies needs, iv running - oriented to new shift nurse. reports judit pad in place and well.
--- NOTE | 2020-11-11 21:30 | NUR ---
note sent to both asking about stool softeners and no bm since 11/06. pt is on narcotics - side effects are constipation. discussed with charge and will iniate NIO for bowel regime.
--- NOTE | 2020-11-11 23:30 | NUR ---
pt eyes closed, resp even, call light in reach. held po stool softner from NIO
--- NOTE | 2020-11-12 04:38 | NUR ---
pt voided 300 ml dark urine, then got nauseated, dry heaves. zofran iv given, then req. jello and stool softner and education given on side effects of pain meds. pt improved and was resting with call light.
--- NOTE | 2020-11-12 05:26 | NUR ---
pt has episode of dry heaves after eating jello - bs check 134 - phenergan iv given - pt resting now, improved
--- NOTE | 2020-11-12 06:43 | NUR ---
nausea resolved- resting in bed with call light.
--- NOTE | 2020-11-12 07:24 | NUR ---
Shift report recieved from ROCAEL Munguia, pt resting in bed safely w/ call light in reach. non destructive testing technician in room to draw morning labs, pt denies any needs at this time.
--- NOTE | 2020-11-12 07:58 | NUR ---
Pt sittin up in bed breakfast at bedside, pt c/o of nausea, no medications available at this time. Morning assesment completed and scheduled meds given per provider order. VSS on RA, IV fluids and abx infusing per provider order. Pt denies any other needs at this time.
--- NOTE | 2020-11-12 09:52 | NUR ---
Surgeon in room to remove gauze packing from pernial abcess. Pt c/o 9/10 pain, PRN pain meds given per pt request/provider order. Perineal abcess not MILTON, w/ judit pad in place for drainage. Pt denies any other needs at this time
--- NOTE | 2020-11-12 10:26 | NUR ---
Uses call light to request assist to use urinal. Uses urinal at bedside with standby assist. Returns to bed, denies other needs at this time. Call light in reach, bed rails up X2.
--- NOTE | 2020-11-12 10:36 | NUR ---
IN TO SEE PATIENT, PATIENT RESTING IN BED. PATIENT UNDERSTANDS THAT HE WILL BE STAYING AT LEAST ONE MORE NIGHT. PATIENT HAS NO QUESTIONS OR CONCERNS AT THIS TIME. WILL CONTINUE TO FOLLOW UP WITH PATIENT DURING HIS VISIT.
--- NOTE | 2020-11-12 12:13 | NUR ---
Pt c/o nausea, PRN medication given per pt request/provider order.
--- NOTE | 2020-11-12 14:00 | NUR ---
Pt c/o nausea, PRN medication given per pt request/provider order.
--- NOTE | 2020-11-12 16:00 | NUR ---
IV fluids DC'd per provider.
--- NOTE | 2020-11-12 18:13 | NUR ---
Pt has been increasingly nauseous throughout the shift despite PRN nausea meds, provider called and TORB to increase IV Phenergan to 25mg IV Q6.
--- NOTE | 2020-11-12 18:28 | NUR ---
IV started by this nurse X2 attempt. 1st attempt with vein blown when IV inserted to left forearm. IV to right forearm initiated and advances without difficulty. Flushed with 5mL NS. Continues to be nauseated at this time.
--- NOTE | 2020-11-12 20:26 | NUR ---
IN ROOM CHARGE NURSE. PT SLEEPING; IV PUMP ALARMING. PROBLEM SOLVED. CALL LIGHT WITHIN REACH.
--- NOTE | 2020-11-12 21:50 | NUR ---
PATIENT CALLED TO USE THE BATHROOM. 1 SBA. PATIENT VOIDED AND HAD A BOWEL MOVEMENT. PATIENT IS BACK IN BED. 1 SUGAR FREE JELLO PROVIDED. NO OTHER NEEDS AT THIS TIME.
--- NOTE | 2020-11-12 21:57 | NUR ---
CALLED AND 1 TIME IV DOSE OF PAIN MEDICATION ORDERED AND NORCO DOSE CHANGED FROM EVERY 6HRS TO EVERY 4 HOURS.
--- NOTE | 2020-11-12 22:19 | NUR ---
PATIENT JUST BACK FROM THE BATHROOM AND SAYS HIS SURGICAL SITE PAIN IS 5/10. PATIENT GRIMACING AND GAURDED. 0.5MG IV DILAUDID GIVEN SIVP. PATIENT'S BLOOD SUGAR IN RANGE AND NO INSULIN NEEDED. PATIENT JUST HAD A BM AND HE REFUSED HIS STOOL SOFTENERS. PATIENT'S ICE WATER REFILLED AND CALL LIGHT IS IN REACH.
--- NOTE | 2020-11-13 00:30 | NUR ---
PATIENT RESTING QUIETLY IN SEMI-FOWLERS POSITION, RESPIRATIONS REGULAR AND EVEN, EYES CLOSED, CALL LIGHT IN REACH.
--- NOTE | 2020-11-13 01:20 | NUR ---
ANSWERED CALL LIGHT. SBA TO THE BATHROOM AND BACK TO BED.
--- NOTE | 2020-11-13 01:37 | NUR ---
PATIENT UP TO THE BATHROOM 1PSBA AND BACK TO BED. SURGICAL SITE PAIN 6/10 AND PATIENT GIVEN PO PAIN MEDICATION. PATIENT IS GOING TO TRY AND GET SOME MORE SLEEP. CALL LIGHT IN REACH.
--- NOTE | 2020-11-13 04:36 | NUR ---
PATIENT RESTING QUIETLY IN LOW FOWLERS POSITION, EYES CLOSED, RESPIRATIONS REGULAR AND EVEN, AND CALL LIGHT IS IN REACH.
--- NOTE | 2020-11-13 05:41 | NUR ---
PATIENT CALLED TO USE THE RESTROOM AND STARTED HAVING DRY HEAVES. PATIENT SAYING THERE WAS SOME INITIAL DISCOMFORT WHEN RFA AV WAS FLUSHED EVEN THOUGH IS FLUSHES WELL AND IS NOT RED. 20G IV STARTED IN THE LAC AND BY THE TIME THIS WAS COMPLETE PATIENT'S NAUSEA WAS GONE. PATIENT UP TO THE BATHROOM AND BACK TO BED WITH THIS RN PRESENT. NO OTHER CARE NEEDS AT THIS TIME. CALL LIGHT IN REACH.
--- NOTE | 2020-11-13 07:10 | NUR ---
Report from Bruce Hodges RN. Patient resting in bed at this time. Call light in reach. Bed rails up X2.
--- NOTE | 2020-11-13 07:48 | NUR ---
Shift report recieved from ROCAEL Andrade, pt resting in bed safely w/ call light in reach.
--- NOTE | 2020-11-13 09:49 | NUR ---
Pt SBA to bathroom, pt voided, and now in bed resting safely w/ call light in reach. VSS on RA, morning assesment completed and scheduled meds given per provider order. Pt unable to eat breakfast due to nausea, pt also c/o pain in perineal area, PRN medications given per pt request/provider order.
--- NOTE | 2020-11-13 10:41 | NUR ---
PATIENT UP IN BED. RECORDED I&OS. PATIENT DOES NOT NEED ANYTHING AT THIS TIME. CALL LIGHT IN REACH.
--- NOTE | 2020-11-13 12:00 | NUR ---
Pt sitting up in bed eating lunch, call light in reach. IV abx infusing per provider order. Pt denies any needs at this time
--- NOTE | 2020-11-13 13:02 | NUR ---
Pt c/o nausea, PRN medication given per pt request/provider order.
--- NOTE | 2020-11-13 14:03 | NUR ---
No change in plan for dc.
--- NOTE | 2020-11-13 14:48 | NUR ---
Pt called for SBA to bathroom, pt voided, and now resting in bed safely w/ call light in reach. Pt c/o 10/02 pain in perineal area, PRN pain medication given per pt request/provider order.
--- NOTE | 2020-11-13 17:19 | NUR ---
Pt ambulated in hallway SBA w/FWW, 1/2 lap. Pt then used urinal and is now back in bed resting safely w/ call light in reach.
--- NOTE | 2020-11-13 18:30 | NUR ---
Pt rested in bed throughout shift, but did ambulate in hallway this evening before dinner. IV abx infused per provider order. Pt required pain and nausea meds throughout shift. Pt able to have a BM this morning.
--- NOTE | 2020-11-13 19:30 | NUR ---
SHIFT REPORT RECEIVED FROM DAYSHIFT RN DAVIE AND GRETCHEN AT BEDSIDE. pt RESTING IN BED, REPORTS 4-5/10 PAIN R/T PERINEUM AREA, PRN PAIN MEDICATION GIVEN (SEE EMAR). NO ADDITIONAL NEEDS AT THIS TIME, CALL LIGHT IN REACH. BOARD UPDATED.
--- NOTE | 2020-11-13 19:43 | NUR ---
PT CALLED FOR ASSISTANCE TO RESTROOM. HE HAD A LOOSE BM AND IS NOW BACK IN BED WITH A NEW GOWN AND CLEAN ATTENDS. PRIMARY RN AMBROCIO IS NOW IN ROOM WITH PT.
--- NOTE | 2020-11-13 22:00 | NUR ---
IN TO GET VITALS, ICE WATER REFRESHED, PT DENIES NEED TO VOID AT THIS TIME, NO FURHTER NEEDS
--- NOTE | 2020-11-13 22:15 | NUR ---
ASSESSMENT COMPLETE, SCHEDULED MEDS GIVEN (SEE EMAR). ACCUCHECK RESULT OF 140, NO INSULIN GIVEN AT THIS TIME. pt REPORTS PAIN HAS IMPROVED AFTER LAST PAIN MEDICATION ADMINISTRATION, RATES TOLERABLE 2/10 PAIN. BRIEFLY REPORTS NAUSEA, RESOLVED INDEPENDENTLY, NO NEED FOR NAUSEA MEDICATION. IV SITE TO LEFT AC WNL, FLUSHES EASILY. pt REPORTS PAIN WITH RIGHT FOREARM WHEN FLUSHED, FLUSHES EASILY. SITE APPEARS WNL. NO ADDITIONAL NEEDS, CALL LIGHT IN REACH.
--- NOTE | 2020-11-14 01:00 | NUR ---
pt RESTING IN BED, EYES CLOSED. RR EVEN AND UNLABORED. NO DISTRESS NOTED. IV ABX INFUSING PER MD ORDERS, SITE WNL. CALL LIGHT IN REACH.
--- NOTE | 2020-11-14 01:36 | NUR ---
pt PREMEDICATED WITH 2 PAIN PILLS FOR DRESSING CHANGE TO ABCESS WOUND. pt DENIES NEEDS, CALL LIGHT IN REACH. IV ABX CONTINUES TO INFUSE PER MD ORDERS, IV SITE WNL.
--- NOTE | 2020-11-14 02:30 | NUR ---
WOUND CARE TO PERINEUM ABCESS COMPLETE PER MD ORDERS WITH HELP FROM PLANT PROTECTION SUPERVISORROCAEL NOVAK. SITE WNL, MESH PANTIES WITH ABD PAD IN PLACE PER MD ORDERS. NO DRAINAGE NOTED FROM WOUND AT THIS TIME, WILL CONTINUE TO MONITOR. ASSESSMENT COMPLETE, NO NEW CHANGES OR CONCERNS. CALL LIGHT IN REACH. pt TOLERATED WOUND CARE WELL.
--- NOTE | 2020-11-14 05:12 | NUR ---
pt RESTING QUIETLY IN BED, DENIES NEED OR CONCERNS. RR EVEN AND UNLABORED. CALL LIGHT IN REACH.
--- NOTE | 2020-11-14 06:15 | NUR ---
IV ABX HUNG AND INFUSING PER MD ORDERS, SITE WNL AND FLUSHES EASILY. pt DENIES ADDITIONAL NEEDS, RR EVEN AND UNLABORED. CALL LIGT IN REACH.
--- NOTE | 2020-11-14 07:33 | NUR ---
REPORT RECEIVED FROM ROCAEL ALBRECHT. PT RESTING ON BACK WITH EYES CLOSED. HEAD OF BED ELEVATED TO 30 DEGREES. RESPIRATIONS EVEN AND UNLABORED. PT ALLOWED TO REST UNDISTURBED AT THIS TIME. CALL LIGHT WITHIN REACH. BED RAILS UP.
--- NOTE | 2020-11-14 07:58 | NUR ---
PT HEARD FROM NURSING STATION DRY HEEVING IN ROOM. THIS NURSE TO BEDSIDE. PT DENIES EMESIS. REPORTS HE IS NAUSEOUS AND WOULD LIKE SOME MEDICATION. 8MG ZOFRAN ADMSINTERED. PRIMARY NURSE NOTIFIED.
--- NOTE | 2020-11-14 08:41 | NUR ---
MORNING ASSESSMENT AND MEDICATION DUE. PT CONTINUES TO REPORT NAUSEA, ADDITIONAL PRN MEDICATION, PHENEGRAN, GIVEN. IV ASSESSED PRIOR TO PHENEGRAN ADMINISTRATION. IV WNL, BLOOD RETURN NOTED. PHENEGRAN GIVEN OVER SLOW 10MINUTE IV PUSH. IV BLOOD RETURN NOTED EVERY 5ML OF ADMINISTRATION. PT DENIES PAIN AT IV SITE. NO S/S OF PHELBITIS NOTED. VITAL SIGNS TAKEN, BLOOD PRESSURE ELEVATE, SEE MAR FOR MEDICATIONS GIVEN. PT UP TO CHAIR WITH STAND BY ASSIST. PT VERY PAINFUL WITH MOVEMENT UP TO 8/10 STABBING PAIN IN PERINEAL WOUND AREA. SEE MAR FOR MEDICATION GIVEN. WOUND ASSESSE, STOOL NOTED AROUND WOUND AND ON DRESSING. PT REPORTS RECENT DIARRHEA. MELANIE CARE DONE, PT VERY PAINFUL WITH CARE AND CLEANING. WOUND CLENASER APPLIED. SOAP AND WATER USED TO WASH WOUND. NEW ABD PAD AND 4X4 GAUZE APPLED, HELD IN PLACE BY MESH UNDERWARE PER MD ORDER. PT UP TO CHAIR, DOUGHNUT MADE WITH TOWELS PER PT REQUEST TO RELEIVE PRESSURE OFF OF WOUND. DOUGHNUT COVERED WITH PILLOWS FOR SOFT SUPPORT. PT REPORTS PAIN GOES DOWN TO 3-4/10 WITH REST. LUNG SOUND CLEAR. PT REPORTS BASELINE NUMBNESS AND TINGLING IN BLE BELOW KNEES AND DOWN THROUGH FEET WITH FEET BEING COMPLETELY NUMB. PT REPORTS HE SEES DR. DODGE FOR FOOT CARE. OLD SCABS NOTED ON TOES, SEE ASSESSMENT. PT REMAINS UPT O CHAIR. CALL LIGHT WITHIN REACH. NO ADDITIONAL REQUESTS OR COMPLAINTS.
--- NOTE | 2020-11-14 09:25 | NUR ---
DR. VAZQUEZ UPDATED ON PT CONDITION, NAUSEA, PAIN, AND WOUND CONDITION. DR. VAZQUEZ TO ROOM FOR ROUNDS, NO ADDITONAL NEW ORDERS AT THIS TIME.
--- NOTE | 2020-11-14 10:45 | NUR ---
THIS RN TO ROOM TO CHECK ON PT. PT RESTING WITH EYES CLOSED, RESPIRATIONS EVEN AND UNLABORED. PT AWAKENS TO VOICE. REPORTS 1/10 HEADACHE AND 3/10 ACHING PAIN AT SURGICAL SITE. PT DENIES NEED FOR ADDITIONAL PAIN MEDICATION, DECLINES COOL CLOTH FOR HEADACHE. PT REPORTS NAUSEA HAS RESOLVED. PT VERBALIZES UNDERSTANDING OF PLAN OF CARE. NO ADDITIONAL REQUESTS OR COMPLAINTS. CALL LIGHT WHTIN REACH. WARM BLANKET PROVIDED.
--- NOTE | 2020-11-14 10:52 | NUR ---
Spoke with Shai, will remain another day per my visit with Dr. Mcclelland this am. Pt states his exwife will with him a couple of day and family will assist him after. He cont. to deny needs to go home. Pt will dc to home alone as daughter is in [facility] in [place]. Attempted to contact [facility] workers, then Dr. Frank SEVILLA to ask if someone can visit pt after discharge. Unable to contact anyone at this time. Message left.
--- NOTE | 2020-11-14 12:21 | NUR ---
THIS RN TO ROOM TO CHECK ON PT. PT REPORTS HEADACHE PAIN AND NAUSEA HAVE RESOLVED. PAIN TO SUGRICAL SITE REMAINS AT 2/10 ACHING PAIN. PT DENIES NEED FOR ADDITIONAL PAIN INTERVENTIONS. IV ASSESSED, WNL, NO S/S OF PHELBITIS NOTED. IV ABX INFUSION CONTINUES. LUNCH ARRIVED. INSULIN GIVEN (SEE MAR). PT EATING LUNCH AND WATCHING TV UP TO CHAIR. NO ADDITIONAL REQUESTS OR COMPLAINTS. CALL LIGHT WITHIN REACH.
--- NOTE | 2020-11-14 13:47 | NUR ---
AFTERNOON ASSESSMENT AND MEDICATIONS DUE. PT UP TO CHAIR WATCHING TV. PT DENIES NAUSEA AND HEADACES. PT REPORTS 3/10 PAIN AT SURGICAL SITE, PEINEAL. PT DECLIENS PAIN MEDICATONS AND OTHER PAIN INTERVENTIONS STATING "IT'S OK RIGHT NOW." IV SALINE LOCKED PREVIOUSLY BY ROCAEL PRATT. ASSESSED AT THIS TIME. NO S/S OF PHELBITIS, ALCOHOL CAP APPLIED. LUNG SOUNDS CLEAR. HEART TONES REGULAR RATE AND RHYTHEM. BASELINE NUMBNESS AND TINGLING REMAINS UNCHANGED TO BLE. WOUND TO PERINEAL AREA REMAINS WNL. CLEAN AT THIS TIME. SCANT SERIOUSANGUINOUS DRAINGE NOTED ON GAUZE. GAUZE AND ABD PAD REMAIN IN PLACE AT THIS TIME, HELD IN PLACE [facility], WILL CONTINUE TO MONITOR. PT WATCHING TV. DENIES ADDITIONAL REQUESTS OR COMPLAINTS. CALL LIGHT WITHIN REACH.
--- NOTE | 2020-11-14 15:08 | NUR ---
NEW MEDICATIONS ORDERED. THIS RN TO ROOM. PT RESTING WITH EYES CLOSED. MILD SNORING NOTED. PT AWAKENS TO VOICE. MEDICATIONS GIVEN (SEE MAR). NEW MEDICATION, REGLAN, REVIEWED WITH PT IN DETAIL. PT VERBALIZES UNDERSTANDING. NO ADDITIONAL REQUESTS OR COMPLAINTS. CALL LIGHT WITHIN REACH.
--- NOTE | 2020-11-14 16:45 | NUR ---
THIS RN TO ROOM TO CHECK ON PT. PT RESTING WITH EYES CLSOED. PT AWAKENS TO VOICE. PT REPORTS 5/10 ACHING PAIN IN PERINEUM AND HEADACHE. SEE MAR FOR MEDICATION GIVEN. BLOOD SUGAR WITHIN RANGE, NO INSULIN NEEDED. PT DENIES ADDITIONAL REQUESTS OR COMPLAINTS. CALL LIGHT WITHIN REACH.
--- NOTE | 2020-11-14 17:37 | NUR ---
PT HERE FOR PERINEAL ABCESS. SBA UP TO CHAIR AND RESTROOM THIS SHIFT. PT VERY PAINFUL WITH AMBULATION. PT TOLERATING 60G CARB DIET WITH MODERATE APPITITE. PRN NAUSEA MEDICAITONS GIVEN, REGLAN STARTED. PT REPORTS 2-8/10 PAIN IN PERINEAL AREA, WORSE WITH ACTIVITY, PRN PAIN MEDICAITONS GIVEN. WOUND CLEANED AND DRESSING CHANGED THIS SHIFT PER MD ORDER, PAINFUL FOR PT. BLOOD SUGARS WITHIN RANGE THIS SHIFT WITH ONLY 1 UNIT NEEDED FOR CBG OF 141 AT LUNCH. IV SALIN LOCKED BUT FOR IV ABX INFUSION, SWITCHED TO ORAL ABX TODAY. PT DECLINES SHOWER THIS SHIFT. PT VOIDING QUANTITY SUFFICIENT. PT USES CALL LIGHT APPROPRIATLY.
--- NOTE | 2020-11-14 18:40 | NUR ---
THIS RN TO ROOM TO CHECK ON PT. PT FINISHED WITH DINNER, ABLE TO EAT 100% WITH NO NAUSEA. PT REPORTS PAIN HAS IMPROVED NOW 3/10 SHARP TO ACHING PAIN. PT ENCOURAGED TO GET UP TO AMBULATE. PT AMBULATES 1 SMALL LAP IN NICE WITH FWW AND STAND BY ASSIST. PT SLOW BUT STEADY. PAIN INCREASES TO 5/10 WITH AMBULATION. PT BACK TO BED. REPORTS PAIN IMPROVES WITH REST BACK TO 3/10. NEW GUAZE APPLIED TO PERNEAL ABCESS AT THIS TIME. SCANT RED DRAINAGE NOTED ON GAUZE. GAUZE HELD IN PLACE BY MESH UNDERWARE. PT DENIES ADDITIONAL REQUESTS OR COMPLAINTS AT THIS TIME. CALL LIGHT WITHIN REACH. BED RAILS UP.
--- NOTE | 2020-11-14 19:00 | NUR ---
SHIFT REPORT RECEIVED FROM MAKSIM ALEGRE AT BEDSIDE. pt AWAKE AND RESTING IN BED. IV SALINE LOCKED. pt DENIES NEEDS OR CONCERNS. CALL LIGHT IN REACH.
--- NOTE | 2020-11-14 22:40 | NUR ---
IN TO GET VITALS, FRESH ICE WATER GIVEN, PT DENIES NEED TO VOID AT THIS TIME, NO FURTHER NEEDS
--- NOTE | 2020-11-14 22:45 | NUR ---
ASSESSMENT COMPLETE, SCHEDULED MEDS GIVEN (SEE EMAR). ACCUCHECK WNL, NO INSULIN REQUIRED. VSS, pt REPORTS TOLERABLE 6/10 PAIN. WOUND CARE TO ABCESS COMPLETED PER MD ORDERS, pt TOLERATED WELL. MESH PANTIES WITH ABD PAD IN PLACE. SCANT RED DRAINAGE NOTED, WILL MONITOR. NO FURTHER NEEDS, CALL LIGHT IN REACH.
--- NOTE | 2020-11-15 00:46 | NUR ---
prn pain medication given for 6/10 perineum pain, see emar. no further needs, call light in reach.
--- NOTE | 2020-11-15 03:02 | NUR ---
pt RESTING IN BED WITH EYES CLOSED, RR EVEN AND UNLABORED. NO DISTRESS NOTED, CALL LIGHT IN REACH.
--- NOTE | 2020-11-15 05:16 | NUR ---
VSS, ASSESSMENT COMPLETE. NO NEW CHANGES OR CONCERNS. pt REPORTS TOLERABLE 5/10 PAIN. NO DISTRESS NOTED. pt INCONTINENT OF SMALL BM, MELANIE CARE COMPLETE AND ABCESS CLEANED WITH WOUND CLEANSER. NEW MESH PANTIES WITH ABD PAD IN PLACE. pt BACK IN BED, NO FURTHER NEEDS. CALL LIGHT IN REACH.
--- NOTE | 2020-11-15 06:14 | NUR ---
SCHEDULED REGLAN GIVEN, SEE EMAR. NO FURTHER NEEDS, CALL LIGHT IN REACH.
--- NOTE | 2020-11-15 07:40 | NUR ---
REPORT RECEIVED FROM ROCAEL ALBRECHT. PT RESTING IN BED. PT REPORTS 3/10 PAIN IN PERNEAL AREA AT THIS TIME. PT DENIES NAUSEA AT THIS TIME. DR. VAZQUEZ TO BEDSIDE TO DISCUSS PLAN OF CARE WITH PT. ORDERS TO GIVE PT A SITZ BATH THIS MORNING PRIOR TO POSSIBLE DISCHARGE. PT VERBALIZES UNDERSTANDING OF PLAN OF CARE AND STATES HIS QUESTIONS HAVE BEEN ANSWERED. NO ADDITIONAL REQUESTS OR COMPLAINTS AT THIS TIME. CALL LIGHT WITHIN REACH. BED RAILS UP.
--- NOTE | 2020-11-15 08:06 | NUR ---
PT DECLINED TO GET OUT OF BED TO RECLINER FOR BREAKFAST.
[2020-11-15] MEDS ORDERED: HYDROCODON-ACE1 EAC8 PO (08:14)
[2020-11-15] MEDS ORDERED: ONDANSETRON4 MG/2 M1 PO (08:15)
[2020-11-15] MEDS ORDERED: METOCLOPRAMIDE H5 MG PO (08:16)
[2020-11-15] MEDS ORDERED: ZOFRAN4 MG PO (09:00)
--- NOTE | 2020-11-15 09:11 | NUR ---
MORNING ASSESSMENT AND MEDICATION DUE. PT CALL LIGHT ON. PT REQUESTS PAIN MEDICATION. THIS RN TO ROOM. PT REPORTS SHARP PAIN IN PERNEAL AREA AT 10/02. SEE MAR FOR MEDICATION GIVEN. IV ASSESSED, WNL, NO S/S OF PHELBITIS NOTED. ALCOHOL CAP APPLIED. SBA WITH FWW UP TO CHAIR. DOUGHNUT MADE WITH TOWELS AND PILLOWS TO SUPPORT PTS HIPS. PT PAINFUL WITH AMBULATION, PAIN DROPS ONCE AT REST. LUNG SOUNDS CLEAR. HEART TONES REGULAR. VITAL SIGNS STABLE. MEDICATIONS GIVEN (SEE MAR). BLE REMAIN DRY, SCALY AND EVELIO. PT REPORTS BASELINE NEUROPATHY TO BLE BELOW KNEES. PSORIASIS SORES CONTINUE THROUGHOUT SKIN. WOUND ASSESSED, WNL, MINIMAL RED DRAINAGE NOTED. WOUND CLEANED WITH WITH ANAT PAGE. NEW ABD PAD AND GAUZE APPLIED, HELD IN PLACE BY MESH UNDERWARE. PT DENIES ADDITIONAL REQUESTS OR COMPLAINTS AT THIS TIME. CALL LIGHT WITHIN REACH.
--- NOTE | 2020-11-15 09:39 | NUR ---
CALLED LAB TALKED TO JULIANNA IN REGARDS TO THE RESULTS OF PATIENT A1C. LAB CALLED BACK RESULTS STILL PENDLING
--- NOTE | 2020-11-15 10:30 | NUR ---
THIS RN TO ROOM TO CHECK ON PT. PT REMAINS UP TO CHAIR. PT REPORTS SHARP ACHING PAIN IN PERINEAL AREA IS NOW 3/10 AND TOELRABLE. PT DENIES NEED FOR ADDITIONAL PAIN INTERVENTIONS AT THIS TIME. PT DENIES NASUEA. SHOWER PLANNED FOR LATER THIS MORNING. NO ADDITIONAL REQUESTS OR COMPLAINTS. CALL LIGHT WITHIN REACH.
--- NOTE | 2020-11-15 11:42 | NUR ---
PT ANTICIPATING DISCHARGE. PT UP TO SHOWER WITH ASSISTANCE FROM THIS RN AND MABEL OBRIEN. PT EDUCATION REGARDIN STIZ BATH DONE. PT DEMONSTRATED UNDERSTANDING AND SITZ BATH PERFORMED DURING SHOWER. PT DRESSED IN CLOTHES FROM HOME AND HOSPITAL SCRUB PANTS HIS OWN PANTS ARE DIRTY. NEW ABD PAD AND 4X4 GAUZE APPLIED TO WOUND AFTER BATH. CLEAN MESH UNDERWARE IN PLACE TO HOLD DRESSING IN PLACE. PT REPORTS PAIN INCREASED TO 9/10 WIT ACTIVITY. IV DC'D PER PROTOCOL BY MABEL OBRIEN. WNL, TIP INTACT. GAUZE AND COBAN APPLIED. AWAITING DISCHARGE CLEARNCE FROM DR. LINDA. PT UP TO CHAIR. CALL LIGHT WITHIN REACH. NO ADDITIONAL REQUESTS OR COMPLAINTS.
[2020-11-15] MEDS ORDERED: AMLODIPINE BESY10 MG PO (13:54)
--- NOTE | 2020-11-15 14:40 | NUR ---
PT READY FOR DISCHARGE. PT DRESSED AFTER SHOWER PREVIOUSLY. VITAL SIGNS STABLE. AFTERNOON DOSE OF NICARDIPINE GIVEN. PT REPORTS 3/10 PAIN AT THIS TIME AND DECLINES PAIN MEDICAITON PRIOR TO DISCHARGE. DISCHARGE INSTRUCTIONS REVIEWED WITH PT. PT VERBALIZES UNDERSTANDING OF NEW MEDICATIONS, MEDICATION CHANGES, SITZ BATHS, WOUND CARE AND NEED TO FOLLOW UP WITH DR. VASQUEZ AND HIS PCP. PT VERBALIZES UNDERSTANDING OF IMPORTANCE OF FOLLOW UP APPOINTMENTS. OKSANA, PHARMCIST, TO BEDSIDE TO REVIEW MEDICATIONS WITH PT. PT STATES HIS QUESTIONS HAVE BEEN ANSWERED. PT ABLE TO REPEAT BACK MEDICATIONS CHANGES AND HOW TO TAKE PAIN MEDICATION. WORK RELEASE NOTE GIVEN TO PT. PT WHEELED FROM MED/MADISYN IN WHEELCHAIR TO MEET TAXI CAB AT FRONT OF HOSPITAL. NO ADDITIONAL REQUESTS OR CONCERNS.
== END 2020-11-15 15:10 | disposition home or self-care (01) | DRG 581 ==
LOC: ED 22:22 → MS 22:24
PROVIDERS: ADMIT Colon & Rectal Surgery; ATTEND Colon & Rectal Surgery
PROC: 0J9B0ZZ Drainage of Perineum Subcutaneous Tissue and Fascia, Open Approach (ICD-10-PCS; principal; 2020-11-10 17:00)
DX: L02.215 Cutaneous abscess of perineum (principal); E11.42 Type 2 diabetes mellitus with diabetic polyneuropathy; E66.9 Obesity, unspecified; Z20.822 Contact with and (suspected) exposure to COVID-19; E78.2 Mixed hyperlipidemia; I48.0 Paroxysmal atrial fibrillation; M10.9 Gout, unspecified; K21.9 Gastro-esophageal reflux disease without esophagitis; N43.3 Hydrocele, unspecified; I12.9 Hypertensive chronic kidney disease with stage 1 through stage 4 chronic kidney disease, or unspecified chronic kidney disease; E11.3319 Type 2 diabetes mellitus with moderate nonproliferative diabetic retinopathy with macular edema, unspecified eye; L40.9 Psoriasis, unspecified; Z91.14 Patient's other noncompliance with medication regimen; N18.30 Chronic kidney disease, stage 3 unspecified; E11.22 Type 2 diabetes mellitus with diabetic chronic kidney disease; E55.9 Vitamin D deficiency, unspecified; I25.10 Atherosclerotic heart disease of native coronary artery without angina pectoris; Z95.5 Presence of coronary angioplasty implant and graft; Z95.1 Presence of aortocoronary bypass graft; Z90.49 Acquired absence of other specified parts of digestive tract; Z98.890 Other specified postprocedural states; Z79.4 Long term (current) use of insulin; Z79.899 Other long term (current) drug therapy; Z88.0 Allergy status to penicillin; Z79.01 Long term (current) use of anticoagulants; Z79.82 Long term (current) use of aspirin
CPT/HCPCS: 00300; 74176; 80048; 80053; 81001; 83605; 83735; 84100; 85007; 85025; 93005; 93010; 96365; 96366; 96375; 96376; 99284-25; A9270; C9803; G0378; J0692; J1170; J1815; J2250; J2405; J2550; J2704; J3475; J7030; J7121; U0003

== ENCOUNTER 2021-04-16 08:27 | Emergency (ER) | payer BC, OTHER ==
[~2021-04-16] VITALS: Ht 180.3 cm; Wt 95.2 kg
[~2021-04-16 08:27] MED LIST changes: +AMLODIPINE BESY10 MG PO; +CLOBETASOL PROP15 GM TOP; +HYDROCODON-ACE1 EAC8 PO; +INSULIN LI100 UNIT/2 SUB-Q; +LASIX80 MG PO; +MAGNESIUM250 M1 PO; +METHOTREXATE2.5 MG PO; +METOCLOPRAMIDE H5 MG PO; +ONDANSETRON4 MG/2 M1 PO; +OTEZLA30 MG PO; +ZOFRAN4 MG PO
--- OUTSIDE RECORDS SUMMARY | 2021-04-16 08:30 | XMS ---
PreManage Notification: LIVE ROJAS Security Exterminator Termite Events No recent Security Events currently on file CRITERIA MET - Group Notification CARE PROVIDERS LORENZO COLE Physician Folding Machine Tender: Surgical 11/15/2017-[facility] PHONE: [facility] Current PHONE: Unknown [facility] 02/12/2019- PHONE: [phone] Alia has no Care Guidelines for this patient. Care History Medical/Surgical 01/22/2019 [facility] PATIENT- [facility] ELIGIBLE PLEASE REFER PATIENT TO [facility] FOR NON EMERGENT MEDICAL NEEDS. [facility] CAN SEE PATIENTS SAME DAY FOR APTS IF PATIENT CALLS FIRST THING IN THE MORNING. Melody VISIT COUNT (12 MO.) 3 M[facility] Nolasco TOTAL 3 NOTE: Visits indicate total known visits. ED/UCC VISIT TRACKING (12 MO.) 04/16/2021 08:28 [facility] [place] TYPE: Emergency COMPLAINT: - HIGH B/P 11/09/2020 22:23 [facility] [place] TYPE: Emergency COMPLAINT: - RT LEG PAIN 09/03/2020 18:15 [facility] [place] TYPE: Emergency COMPLAINT: - DEHYDRATION CRAMP DIAGNOSES: - Cramp and spasm - Other prison (current) drug therapy - Dehydration - Allergy status to penicillin - Type 2 diabetes mellitus without complications - Unspecified atrial fibrillation - Hypomagnesemia - Cramp and spasm - intermediate frame tender (current) use of aspirin - Hypocalcemia - intermediate frame tender (current) use of insulin - Essential (primary) hypertension INPATIENT VISIT TRACKING (12 MO.) 11/11/2020 09:00 [facility] [place] TYPE: Medical Surgical COMPLAINT: - PERINEAL ABCESS DIAGNOSES: - Gastro-esophageal reflux disease without esophagitis - Other termite control service representative (current) drug therapy - nursing home (current) use of insulin - Presence of coronary angioplasty implant and graft - Hypertensive chronic kidney disease with stage 1 through stage 4 chronic kidney disease, or unspecified chronic kidney disease - nursing home (current) use of anticoagulants - Allergy status to penicillin - Gout, unspecified - Allergy status to penicillin - Type 2 diabetes mellitus with moderate nonproliferative diabetic retinopathy with macular edema, unspecified eye - Type 2 diabetes mellitus with diabetic chronic kidney disease - Presence of aortocoronary bypass graft - Other specified postprocedural states - Hydrocele, unspecified - Type 2 diabetes mellitus with diabetic polyneuropathy - Gastro-esophageal reflux disease without esophagitis - Mixed hyperlipidemia - Vitamin D deficiency, unspecified - Presence of coronary angioplasty implant and graft - Atherosclerotic heart disease of [place] coronary artery without angina pectoris - Other termite control service representative (current) drug therapy - Presence of aortocoronary bypass graft - Type 2 diabetes mellitus with diabetic polyneuropathy - Acquired absence of other specified parts of digestive tract - Other specified postprocedural states - Mixed hyperlipidemia - Patient's other noncompliance with medication regimen - Paroxysmal atrial fibrillation - Obesity, unspecified - Psoriasis, unspecified - nursing home (current) use of aspirin - Chronic kidney disease, stage 3 unspecified - nursing home (current) use of anticoagulants - Gout, unspecified - nursing home (current) use of aspirin - Obesity, unspecified - Paroxysmal atrial fibrillation - Cutaneous abscess of perineum - Atherosclerotic heart disease of [place] coronary artery without angina pectoris - intermediate frame tender (current) use of insulin - Hypertensive chronic kidney disease with stage 1 through stage 4 chronic kidney disease, or unspecified chronic kidney disease - Acquired absence of other specified parts of digestive tract - Type 2 diabetes mellitus with diabetic chronic kidney disease - Chronic kidney disease, stage 3 unspecified [id number]
[2021-04-16] MEDS ORDERED: ATENOLOL50 MG PO (08:48)
== END 2021-04-16 10:21 | disposition home or self-care (01) ==
LOC: ED 08:27
DX: I10 Essential (primary) hypertension (principal); E11.9 Type 2 diabetes mellitus without complications; I48.91 Unspecified atrial fibrillation; Z88.0 Allergy status to penicillin; Z79.4 Long term (current) use of insulin; Z79.899 Other long term (current) drug therapy; Z79.82 Long term (current) use of aspirin
CPT/HCPCS: 99283

== ENCOUNTER 2021-04-18 12:23 | Emergency (ER) | payer BC, OTHER ==
[~2021-04-18] VITALS: Ht 180.3 cm; Wt 100.9 kg
[~2021-04-18 12:23] MED LIST changes: +ATENOLOL50 MG PO
--- OUTSIDE RECORDS SUMMARY | 2021-04-18 12:26 | XMS ---
PreManage Notification: LIVE ROJAS Security Php Developer Events No recent Security Events currently on file CRITERIA MET - [facility] - 2 Visits in 30 Days - Group Notification CARE PROVIDERS LORENZO COLE Physician Disease And Insect Control Boss: Surgical 11/15/2017-Current [facility]: [facility] Current PHONE: Unknown [facility] 02/12/2019-[facility] PHONE: [phone] Alia has no Care Guidelines for this patient. Care History Medical/Surgical 01/22/2019 [facility] PATIENT- [facility] ELIGIBLE PLEASE REFER PATIENT TO [facility] FOR NON EMERGENT MEDICAL NEEDS. [facility] CAN SEE PATIENTS SAME DAY FOR APTS IF PATIENT CALLS FIRST THING IN THE MORNING. Melody VISIT COUNT (12 MO.) 4 MISTI Nolasco TOTAL 4 NOTE: Visits indicate total known visits. ED/UCC VISIT TRACKING (12 MO.) 04/18/2021 12:25 [facility] [place] TYPE: Emergency COMPLAINT: - LEFT EYE HAS LOST EYE SIGHT, BLURRY 04/16/2021 08:28 [facility] [place] TYPE: Emergency COMPLAINT: - HIGH B/P 11/09/2020 22:23 [facility] [place] TYPE: Emergency COMPLAINT: - RT LEG PAIN 09/03/2020 18:15 [facility] [place] TYPE: Emergency COMPLAINT: - DEHYDRATION CRAMP DIAGNOSES: - Cramp and spasm - Other care home (current) drug therapy - Dehydration - Allergy status to penicillin - Type 2 diabetes mellitus without complications - Unspecified atrial fibrillation - Hypomagnesemia - Cramp and spasm - halfway (current) use of aspirin - Hypocalcemia - halfway (current) use of insulin - Essential (primary) hypertension INPATIENT VISIT TRACKING (12 MO.) 11/11/2020 09:[address] [facility] [place] TYPE: Medical Surgical COMPLAINT: - PERINEAL ABCESS DIAGNOSES: - Gastro-esophageal reflux disease without esophagitis - Other care home (current) drug therapy - halfway (current) use of insulin - Presence of coronary angioplasty implant and graft - Hypertensive chronic kidney disease with stage 1 through stage 4 chronic kidney disease, or unspecified chronic kidney disease - halfway (current) use of anticoagulants - Allergy status [...] and graft - Atherosclerotic heart disease of [place] coronary artery without angina pectoris - Other distribution collection operator (current) drug therapy - Presence of aortocoronary bypass graft - Type 2 diabetes mellitus with diabetic polyneuropathy - Acquired absence of other specified parts of digestive tract - Other specified postprocedural states - Mixed hyperlipidemia - Patient's other noncompliance with medication regimen - Paroxysmal atrial fibrillation - Obesity, unspecified - Psoriasis, unspecified - director clinical data (current) use of aspirin - Chronic kidney disease, stage 3 unspecified - director clinical data (current) use of anticoagulants - Gout, unspecified - halfway (current) use of aspirin - Obesity, unspecified - Paroxysmal atrial fibrillation - Cutaneous abscess of perineum - Atherosclerotic heart disease of [place] coronary artery without angina pectoris - director clinical data (current) use of insulin - Hypertensive chronic kidney disease with stage 1 through stage 4 chronic kidney disease, or unspecified chronic kidney disease - Acquired absence of other specified parts of digestive tract - Type 2 diabetes mellitus with diabetic chronic kidney disease - Chronic kidney disease, stage 3 unspecified [email or web address]
== END 2021-04-18 15:05 | disposition home or self-care (01) ==
LOC: ED 12:23
DX: H53.8 Other visual disturbances (principal); I10 Essential (primary) hypertension; E11.9 Type 2 diabetes mellitus without complications; I48.91 Unspecified atrial fibrillation; Z88.0 Allergy status to penicillin; Z79.4 Long term (current) use of insulin; Z79.899 Other long term (current) drug therapy; Z79.82 Long term (current) use of aspirin
CPT/HCPCS: 70450; 80048; 85025; 99284-25

== ENCOUNTER 2021-05-27 21:16 | Emergency (ER) | payer BC, OTHER ==
[~2021-05-27] VITALS: Ht 180.3 cm; Wt 100.7 kg
--- OUTSIDE RECORDS SUMMARY | 2021-05-27 21:18 | XMS ---
PreManage Notification: LIVE ROJAS Security Nail Feeder Events No recent Security Events currently on file CRITERIA MET - Group Notification - [facility] CARE PROVIDERS LORENZO COLE Physician Working Supervisor: Surgical 11/15/2017-[facility] PHONE: Unknown [facility] Current PHONE: Unknown [facility] Case Management 04/21/2021-[facility] PHONE: [phone] [facility] 02/12/2019-[facility] PHONE: [phone] Alia has no Care Guidelines for this patient. Care History Medical/Surgical 05/04/2021 [facility] Contacted [place] COTEfirer bisque kilnTohfhft-Hcruwl-jhgnrpge of recent ED visits. They will follow up with the patient. 04/21/2021 [facility] PATIENT- [facility] ELIGIBLE PLEASE REFER PATIENT TO [facility] FOR NON EMERGENT MEDICAL NEEDS. [facility] CAN SEE PATIENTS SAME DAY FOR APTS IF PATIENT CALLS FIRST THING IN THE MORNING. EGutierrez VISIT COUNT (12 MO.) 5 [facility] H. TOTAL 5 NOTE: Visits indicate total known visits. ED/UCC VISIT TRACKING (12 MO.) 05/27/2021 21:16 [facility] TYPE: Emergency COMPLAINT: - ABDOMINAL PAIN 04/18/2021 12:25 [facility] TYPE: Emergency COMPLAINT: - LEFT EYE HAS LOST EYE SIGHT, BLURRY DIAGNOSES: - residential (current) use of aspirin - Unspecified atrial fibrillation - residential (current) use of insulin - Other visual disturbances - Allergy status to penicillin - Other fdc (current) drug therapy - Essential (primary) hypertension - Type 2 diabetes mellitus without complications 04/16/2021 08:28 [facility] [place] TYPE: Emergency COMPLAINT: - HIGH B/P DIAGNOSES: - Essential (primary) hypertension - Allergy status to penicillin - Unspecified atrial fibrillation - termite control technician (current) use of aspirin - Other fdc (current) drug therapy - residential (current) use of insulin - Type 2 diabetes mellitus without complications 11/09/2020 22:23 [facility] TYPE: Emergency COMPLAINT: - RT LEG PAIN 09/03/2020 18:15 [facility] TYPE: Emergency COMPLAINT: - DEHYDRATION CRAMP DIAGNOSES: - Cramp and spasm - Other fdc (current) drug therapy - Dehydration - Allergy status to penicillin - Type 2 diabetes mellitus without complications - Unspecified atrial fibrillation - Hypomagnesemia - Cramp and spasm - residential (current) use of aspirin - Hypocalcemia - residential (current) use of insulin - Essential (primary) hypertension INPATIENT VISIT TRACKING (12 MO.) 11/11/2020 09:00 [facility] TYPE: Medical Surgical COMPLAINT: - PERINEAL ABCESS DIAGNOSES: - Gastro-esophageal reflux disease without esophagitis - Other fdc (current) drug therapy - residential (current) use of insulin - Presence of coronary angioplasty implant and graft - Hypertensive chronic kidney disease with stage 1 through stage 4 chronic kidney disease, or unspecified chronic kidney disease - residential (current) use of anticoagulants - Allergy status [...] and graft - Atherosclerotic heart disease of [place] coronary artery without angina pectoris - Other medical terminologist (current) drug therapy - Presence of aortocoronary bypass graft - Type 2 diabetes mellitus with diabetic polyneuropathy - Acquired absence of other specified parts of digestive tract - Other specified postprocedural states - Mixed hyperlipidemia - Patient's other noncompliance with medication regimen - Paroxysmal atrial fibrillation - Obesity, unspecified - Psoriasis, unspecified - termite control technician (current) use of aspirin - Chronic kidney disease, stage 3 unspecified - termite control technician (current) use of anticoagulants - Gout, unspecified - residential (current) use of aspirin - Obesity, unspecified - Paroxysmal atrial fibrillation - Cutaneous abscess of perineum - Atherosclerotic heart disease of [place] coronary artery without angina pectoris - termite control technician (current) use of insulin - Hypertensive chronic kidney disease with stage 1 through stage 4 chronic kidney disease, or unspecified chronic kidney disease - Acquired absence of other specified parts of digestive tract - Type 2 diabetes mellitus with diabetic chronic kidney disease - Chronic kidney disease, stage 3 unspecified [email or web address]
[2021-05-27] MEDS ORDERED: FUROSEMIDE80 MG PO (21:46)
[2021-05-27] MEDS ORDERED: COZAAR100 MG PO (21:46)
[2021-05-27] MEDS ORDERED: TOPROL XL50 MG PO (21:46)
[2021-05-28] MEDS ORDERED: ATIVAN1 MG PO (00:17)
[2021-05-28] MEDS ORDERED: MAGNESIUM OXID500 M1 PO (00:17)
== END 2021-05-28 00:42 | disposition home or self-care (01) ==
LOC: ED 21:16
DX: E83.42 Hypomagnesemia (principal); E87.1 Hypo-osmolality and hyponatremia; I10 Essential (primary) hypertension; E11.9 Type 2 diabetes mellitus without complications; I48.91 Unspecified atrial fibrillation; Z88.0 Allergy status to penicillin; Z79.4 Long term (current) use of insulin; Z79.899 Other long term (current) drug therapy; Z79.82 Long term (current) use of aspirin
CPT/HCPCS: 36415; 80053; 83735; 84100; 85025; 85610; 96365; 96375; 99284-25; J1170; J3360; J3475; J7030

== ENCOUNTER 2021-08-27 12:51 | Emergency (ER) | payer OTHER ==
[~2021-08-27] VITALS: Ht 180.3 cm; Wt 97.4 kg
[~2021-08-27 12:51] MED LIST changes: +ATIVAN1 MG PO; +FUROSEMIDE80 MG PO; +MAGNESIUM OXID500 M1 PO
--- OUTSIDE RECORDS SUMMARY | 2021-08-27 12:55 | XMS ---
PreManage Notification: LIVE ROJAS Security Edge Inker Uppers Events No recent Security Events currently on file CRITERIA MET - [facility] - Group Notification CARE PROVIDERS LORENZO COLE Physician Stuntman: Surgical 11/15/2017-[facility] PHONE: Unknown [facility] Current PHONE: Unknown [facility] [facility] PHONE: [phone] [facility] Case Management 04/21/2021-[facility] PHONE: [phone] Alia has no Care Guidelines for this patient. Care History Medical/Surgical 05/04/2021 [facility] Contacted [place] COTEcommercial intelligence managerMzmpykw-Srdzem-hakocibl of recent ED visits. They will follow up with the patient. 04/21/2021 [facility] PATIENT- [facility] ELIGIBLE PLEASE REFER PATIENT TO [facility] FOR NON EMERGENT MEDICAL NEEDS. [facility] CAN SEE PATIENTS SAME DAY FOR APTS IF PATIENT CALLS FIRST THING IN THE MORNING. EGutierrez VISIT COUNT (12 MO.) 6 [facility] H. TOTAL 6 NOTE: Visits indicate total known visits. ED/UCC VISIT TRACKING (12 MO.) 08/27/2021 12:52 [facility] [place] TYPE: Emergency COMPLAINT: - HIGH B/P 05/27/2021 21:16 [facility] [place] TYPE: Emergency COMPLAINT: - ABDOMINAL PAIN DIAGNOSES: - Essential (primary) hypertension - rat exterminator (current) use of aspirin - Unspecified atrial fibrillation - Hypomagnesemia - Other intermediate (current) drug therapy - Type 2 diabetes mellitus without complications - Hypo-osmolality and hyponatremia - rat exterminator (current) use of insulin - Allergy status to penicillin 04/18/2021 12:25 [facility] [place] TYPE: Emergency COMPLAINT: - LEFT EYE HAS LOST EYE SIGHT, BLURRY DIAGNOSES: - rat exterminator (current) use of aspirin - Unspecified atrial fibrillation - [facility] (current) use of insulin - Other visual disturbances - Allergy status to penicillin - Other watermaster (current) drug therapy - Essential (primary) hypertension - Type 2 diabetes mellitus without complications 04/16/2021 08:28 [facility] [place] TYPE: Emergency COMPLAINT: - HIGH B/P DIAGNOSES: - Essential (primary) hypertension - Allergy status to penicillin - Unspecified atrial fibrillation - [facility] (current) use of aspirin - Other intermediate (current) drug therapy - rat exterminator (current) use of insulin - Type 2 diabetes mellitus without complications 11/09/2020 22:23 [facility] [place] [facility] [place] TYPE: Emergency COMPLAINT: - RT LEG PAIN 09/03/2020 18:15 [facility] [place] [facility] [place] TYPE: Emergency COMPLAINT: - DEHYDRATION CRAMP DIAGNOSES: - Cramp and spasm - Other intermediate (current) drug therapy - Dehydration - Allergy status to penicillin - Type 2 diabetes mellitus without complications - Unspecified atrial fibrillation - Hypomagnesemia - Cramp and spasm - [facility] (current) use of aspirin - Hypocalcemia - rat exterminator (current) use of insulin - Essential (primary) hypertension INPATIENT VISIT TRACKING (12 MO.) 11/11/2020 09:[address] [facility] [place] TYPE: Medical Surgical COMPLAINT: - PERINEAL ABCESS DIAGNOSES: - Gastro-esophageal reflux disease without esophagitis - Presence of aortocoronary bypass graft - Other watermaster (current) drug therapy - rat exterminator (current) use of insulin - Presence of coronary angioplasty implant and graft - Hypertensive chronic kidney disease with stage 1 through stage 4 chronic kidney disease, or unspecified chronic kidney disease - [facility] (current) use of anticoagulants - Allergy status to penicillin - Gout, unspecified - Allergy status to penicillin - Type 2 diabetes mellitus with moderate nonproliferative diabetic retinopathy with macular edema, unspecified eye - Type 2 diabetes mellitus with diabetic chronic kidney disease - Chronic kidney disease, stage 3 unspecified - Other specified postprocedural states - Hydrocele, unspecified - Type 2 diabetes mellitus with diabetic polyneuropathy - Gastro-esophageal reflux disease without esophagitis - Mixed hyperlipidemia - Vitamin D deficiency, unspecified - Presence of coronary angioplasty implant and graft - Atherosclerotic heart disease of [place] coronary artery without angina pectoris - Other intermediate (current) drug therapy - Presence of aortocoronary bypass graft - Type 2 diabetes mellitus with diabetic polyneuropathy - Acquired absence of other specified parts of digestive tract - Other specified postprocedural states - Mixed hyperlipidemia - Patient's other noncompliance with medication regimen - Paroxysmal atrial fibrillation - Obesity, unspecified - Psoriasis, unspecified - rat exterminator (current) use of aspirin - Chronic kidney disease, stage 3 unspecified - [facility] (current) use of anticoagulants - Gout, unspecified - rat exterminator (current) use of aspirin - Contact with and (suspected) exposure to COVID-19 - Obesity, unspecified - Paroxysmal atrial fibrillation - Cutaneous abscess of perineum - Atherosclerotic heart disease of [place] coronary artery without angina pectoris - [facility] (current) use of insulin - Hypertensive chronic kidney disease with stage 1 through stage 4 chronic kidney disease, or unspecified chronic kidney disease - Acquired absence of other specified parts of digestive tract - Type 2 diabetes mellitus with diabetic chronic kidney disease [id number]
[2021-08-27] MEDS ORDERED: LASIX80 MG PO (13:10)
== END 2021-08-27 15:10 | disposition home or self-care (01) ==
LOC: ED 12:51
DX: I12.9 Hypertensive chronic kidney disease with stage 1 through stage 4 chronic kidney disease, or unspecified chronic kidney disease (principal); N18.9 Chronic kidney disease, unspecified; E11.22 Type 2 diabetes mellitus with diabetic chronic kidney disease; I48.91 Unspecified atrial fibrillation; Z95.5 Presence of coronary angioplasty implant and graft; L40.9 Psoriasis, unspecified; Z88.0 Allergy status to penicillin; Z79.4 Long term (current) use of insulin; Z79.82 Long term (current) use of aspirin; Z79.899 Other long term (current) drug therapy
CPT/HCPCS: 36415; 80053; 83735; 85025; 99283

== ENCOUNTER 2022-02-18 16:50 | Inpatient (IN) | payer BC, OTHER ==
[~2022-02-18] VITALS: Ht 180.3 cm; Wt 95.5 kg
[~2022-02-18 16:50] MED LIST changes: -INSULIN LI100 UNIT/2 SUB-Q; +TOPROL XL100 MG PO
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
--- NOTE | 2022-02-18 21:22 | NUR ---
TELEPHONE REPORT RECEIVED FROM ED RN NELLIE AT THIS TIME. QUESTIONS ANSWERED, AWAITING pt's ARRIVAL TO [facility] FLOOR.
--- NOTE | 2022-02-18 22:18 | NUR ---
PT ADMITTED TO ROOM 113 FROM ED @ 2138. A/O, RA, SELF TRANSFER FROM STRETCHER TO BED. RONY MONROE EXPLAINED CALL LIGHT TO PT. PT VOIDED PRIOR TO THIS RN LEAVING ROOM, IV INFUSING PER ORDER.
--- NOTE | 2022-02-18 22:30 | NUR ---
ASSESSMENT COMPLETE, SBP ELEVATED-SCHEDULED LOPRESSOR GIVEN (SEE EMAR). PER pt, pt HX OF HTN. WILL MONITOR. pt AWAKE AND RESTING IN BED, SHIVERING NOTED. CAR WASH MANAGER JHON AWARE AND REPORTS pt WAS SHIVERING UPON ARRIVING FROM ED. IV SITES X2 WNL, IV FLUIDS INFUSING DIRECTED. PINKY TOE TO LEFT FOOT NECROTIC IN APPEARANCE AND pt STATES IT TURNED BLACK "EARLIER TODAY". PHOTOS COLLECTED IN ED AND IN CHART. EDEMA SLIGHTLY WORSE TO LLE COMPARED TO RLE, NORMAL PER pt. HX PSORIASIS, SCATTERED OVER BODY.
--- NOTE | 2022-02-18 23:45 | NUR ---
call light answered, pt up to stand and use urinal. no additional needs. call light in reach. bed alarm resumed.
--- NOTE | 2022-02-19 01:24 | NUR ---
VS COLLECTED AND WITHIN PARAMETERS. pt SHIVERING INTRERMITTENETLY IN BED, BUT ABLE TO SIT STILL W/ VS. AFEBRILE. pt UP SBA TO VOID VIA URINAL. NO ADDITIONAL NEEDS, CALL LIGHT IN REACH.
--- NOTE | 2022-02-19 03:08 | NUR ---
HEARD PT COUGHING, GAGGING, THEN HE CALLED. SAID HE WAS NAUSEATED, NO VOMIT, CONTINUED TO COUGH GAG. UP TOSITTING POSITION, THOUGHT MAYBE HE INHALED SLIVA, IV ZOFRAN GIVEN, UP TO VOID WITH NO OTHER COUGHING, GAGGING. TEMP 99+, WILL ADMINISTER TYLENOL
--- NOTE | 2022-02-19 03:15 | NUR ---
IN ROOM TO COMPLETE ASSESSMENT, pt HEARD COUGHING/DRY HEAVING IN HALLWAY. MEDICAL INTERN JHON ALSO IN ROOM (SEE PREVIOUS RN NOTE). pt DENIES PAIN AND NEED FOR PAIN MEDICATIONS. LLE IN BED AND ELEVATED, STRONG PEDAL PULSES NOTED BILATERALLY. NO ADDITIONAL NEEDS, CALL LIGHT IN REACH. BED ALARM RESUMED FOR SAFETY.
--- NOTE | 2022-02-19 07:14 | NUR ---
REPORT RECEIVED FROM ROCAEL ALBRECHT. PT RESTING IN BED, AWAKENES TO VOICE AND MOVEMENT IN THE ROOM. STRONG SMELL NOTED IN THE ROOM. PT DENIES REQUESTS OR COMPLAINTS. CALL LIGTH WITHIN REACH. BED RAILS UP.
--- NOTE | 2022-02-19 07:30 | NUR ---
MORNING ASSESSMENT AND MEDICATION DUE. PT CALL LIGHT ON. PT REQUESTS ASSISTANCE WITH URINAL. PT UP TO STAND WITH STAND BY ASSIST AND USES URINAL INDEPENDANTLY VOIDING 600ML CLOUDY YELLOW URINE. PT PERFORMS SELF MELANIE CARE. STAND BY ASSIST UP TO CHAIR. PT REPORTS 2/10 PAIN IN THE ARCH OF HIS LEFT FOOT BUT OTHERWISE DENIES PAIN. PT DENIES NEED FOR PAIN MEDICATONS AT THIS TIME. MRI SCREENING FORM COMPLETED WITH ASSISTANCE FROM PT. PT ALERT AND OREINTED TO ALL. NUMBNESS NOTED TO BILATERAL FEET AND CALVES. WEAKNESS NOTED TO LEFT LEG. STRONG PLANTAR AND DORSI FLEXION BILATERALLY. HEART TONES REGULAR AT THIS TIME. +2 PITTING EDEMA REMAINS TO LEFT LOWER EXTREMITY. +1 TO RIGHT LOWER EXTREMITY. PSORIASIS NOTED OVER BODY ESPICIALLY BACK, ARMS, AND LEGS. LEFT PINKY TOE BLACK AND SWOLLEN. VERY STRONG ODOR NOTED FROM LEFT FOOT. BILATERAL LEGS SCALEY WITH PSORIASIS SKIN AND SCABBED WOUNDS. SEE PHOTOS. PT REMAINS UP TO CHAIR. RESTING WITH EYES CLOSED, WARM BLANKETS PROVIDED. CALL LIGHT WITHIN REACH. NO ADDITIONAL REQUESTS OR COMPLAINTS.
[2022-02-19] MEDS ORDERED: CRESTOR10 MG PO (09:03)
[2022-02-19] MEDS ORDERED: INDAPAMIDE1.25 MG PO (09:06)
--- NOTE | 2022-02-19 09:06 | NUR ---
JUNG MIR: THIS RN TO ROOM TO CHECK ON PT. PT REMAINS UP TO CHAIR, RESTING WITH EYES CLOSED, RESPIRATIONS EVEN AND UNLABORED. CALL LIGHT WITHIN REACH. PT ALLOWED TO REST.
[2022-02-19] MEDS ORDERED: NORVASC10 MG PO (09:07)
--- NOTE | 2022-02-19 09:34 | NUR ---
PUMP ALARMING, MAGNESIUM INFUSION AND FLUSH COMPLETE. IV FLUSHED AND SALINE LOCKD. ALCOHOL CAP APPLIED. PT REQEUSTS JUICE, DIET 7-UP OFFERED A LOW SUGAR ALTERNATIVE. PT AGREEES, DIET 7-UP PROVIDED. NO ADDITIONAL REQUESTS OR COMPLAINTS. CALL LIGHT WITHIN REACH. BED RAILS UP.
--- NOTE | 2022-02-19 10:03 | NUR ---
MRI TECHNITIAN ARRIVED TO TAKE PT FOR IMAGING. IV SALINE LOCKED FOR IMAGING. TELEMETRY STICKERS REMOVED, PTS WATCH REMOVED. PT TRANSFERS SELF TO WHEELCHAIR. PT TO MRI. NO ADDITIONAL NEEDS AT THIS TIME.
--- NOTE | 2022-02-19 11:10 | NUR ---
PT RETURNED FROM MRI AND TRANSFERS SELF BACK TO CHAIR. PT DENIES PAIN AND NAUSEA AT THIS TIME. ADDITIONAL PHOTOGRAPHS TAKEN OF LEFT FOOT/TOE/LEG. CONSENT SIGNED. PT REQUESTS JUICE. EDUCATION REGARDING BLOOD SUGAR PERFORMED. PT VERBALIZES UNDERSTANDING AND STATES WATER/DIET SODA IS FINE, PROVIDED. PTS DAUGHTER ARRIVED, UPDATED ON PT STATUS AND PLAN OF CARE PER PT REQUEST. NO ADDITIONAL NEEDS AT THIS TIME. CALL LIGHT WITHIN REACH.
[2022-02-19] MEDS ORDERED: INSULIN LI100 UNIT/2 SUB-Q (11:54)
[2022-02-19] MEDS ORDERED: LANTUS SOL100 UNIT/1 SUB-Q (11:54)
--- NOTE | 2022-02-19 11:56 | NUR ---
MED REC COMPLETE
--- NOTE | 2022-02-19 12:03 | NUR ---
BLOOD SUGAR CHECK AND MEDICATION DUE. PT REMAINS UP TO CHAIR, NOW SHAKING UNCONTROLLABLY. PT REPORTS FEELING "REALLY COLD." TEMPERATURE 99.3 AND RISING. MD CONSULTED AND STATES NO ADDITIONAL CULTURES ARE NEEDED AND TYLENOL CAN BE GIVEN NOW. SEE MAR FOR MEDICATION GIVEN. PT ENCORAUGED TO DRINK WATER. PT VERBLALIZES UNDERSTANDING. NO ADDITIONAL NEEDS AT THIS TIME. CALL LIGHT WITHIN REACH.
--- NOTE | 2022-02-19 12:21 | NUR ---
JUNG MIR: THIS RN TO ROOM TO CHECK ON PT. LUNCH DELIVERED. PT REQUESTS ORANGE JUICE AND MORE ICE WATER, PROVIDED. NO ADDITIONAL REQUESTS OR COMPLAINTS. PT REPORTS PAIN ONLY WITH MOVEMENT AND STATES HE IS OTHERWISE COMFORTABLE. CALL LIGHT WITHIN REACH.
--- NOTE | 2022-02-19 12:58 | NUR ---
THIS RN TO ROOM TO CHECK ON PT. PT RESTING WITH EYES CLOSED. PT AWAKENS TO VOICE AND STATES SHAKING IS "BETTER." TEMPERATURE REASSESED AND FOUND TO BED 101.4. PT REPORTS NO LONGER FEELING COLD, JUST "A LITTLE CHILL." STAND BY ASSIST UP TO USE URINAL. MELANIE CARE PER PT. STAND BY ASSIST BACK TO CHAIR. PT UNSTEADY ON FEET. PT DENIES PAIN AND NAUSEA. NO ADDITIONAL REQUESTS OR COMPLAINTS. PT FINISHING LUNCH. CALL LIGHT WITHIN REACH.
--- NOTE | 2022-02-19 14:20 | NUR ---
AFTERNOON ASSESSMENT AND MEDICATION DUE. PT REMAINS UP TO CHAIR. PT HAS REMOVED BLANKETS. TEMPERATURE REASSESSED BY EMPLOYMENT COORDINATOR AND NOW WNL. PT DENIES PAIN AND NAUSEA INCLUDING IN FEET OR LOWER EXTREMEITES. PT ALERT AND ORIENTED TO ALL. NUMBNESS AND TINGLING TO BLE UNCHANGED. PT ABLE TO STAND BUT IS UNSTEADY ON FEET. STAND BY ASSIST UP TO RESTROOM AND FROM CHAIR TO BED. LUNG SOUNDS CLEAR BUT FOR LEFT LOWER LOBE WHERE CORES SOUNDS ARE HEARD. I.S. PROIVIDED. PT DEMONSRATES USE REACHING 1700-2000ML X10. NO COUGH NOTED. PT TOLERATING ROOM AIR WITH OXGYEN SATURATIONS ABOVE 94%. HEART TONES REMAIN REGULAR. EDEMA TO BLE UNCHANGED. NO CHANGES TO LEFT FOOT OR PINKY TOE. STRONG ODOR CONTINUES. NECROSIS REMAINS, MINMAL PURULENT DRAINAGE NOTED. PTS 2ND DAUGHTER ARRIVED, UPDATED ON PLAN OF CARE AND STATES HER QUESTIONS HAVE BEEN ANSWERED. NO ADDITIONAL REQUESTS OR COMPLAINTS. CALL LIGHT WITHIN REACH.
--- NOTE | 2022-02-19 14:50 | NUR ---
DR. LAKHANI TO BEDSIDE FOR ROUNDS WITH PT. DR LAKHANI UPDATED ON PLAN OF CARE. NEW ORDERS PLACED. DR. LAKHANI STATES TO HOLD VACCINATION SHOT WHILE PT IS FEBRIAL. VACCINATION HELD TODAY. PT AND FAMILY STATE THEIR QUESTIONS HAVE BEEN ANSWERED.
--- NOTE | 2022-02-19 15:22 | NUR ---
Spoke with pt and he states he lives in a house with his two daughters and granddaughters. He has a ramp into his home. 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 He denies any needs and plans on dc to home. He has a walker and a shower chair which he does not use.
--- NOTE | 2022-02-19 15:32 | NUR ---
HOURLY ROUNDING: THIS RN TO ROOM TO CHECK ON PT. PT REMAINS UP TO CHAIR, VISITING WITH DAUGHTER. PT DENIES PAIN AND NAUSEA. REQUESTS CRACKERS, PROVIDED. NO ADDITIONAL REQUESTS OR COMPLAINTS AT THIS TIME. CALL LIGHT WITHIN REACH. BED RAILS UP.
--- NOTE | 2022-02-19 15:51 | NUR ---
PT ADMITTED LAST NIGHT FOR LLE CELLULITIS. PT UP WITH STAND BY ASSIST TO RESTROOM AND CHAIR THIS SHIFT. PT TOLERATING 60G CARB DIET WITH GOOD INTAKE. BLOOD SUGAR CHECKS WITH MEALS AND SLIDING SCALE INSLUIN GIVEN. MRI THIS SHIF FOR EVALUATION OF LEFT LOWER LEG, AWATING RESULTS. NO DRESSING IN PLACE, MINIMAL DRAINAGE NOTED. PT REPORTS MINMAL PAIN THIS SHIFT, NO PAIN MEDCATION GIVEN. PT FEBRIAL THIS SHIFT, RESOLVES WITH TYELNOL. AWAITING PEDIATRY CONSULTATION. IV FLUIDS CONTINUES. MONITORING CRACKELS IN LEFT LOWER LUNG. PT VOIDING QUANTITY SUFFICIENT. PT USES CALL LIGHT AND MAKES NEEDS KNOWN.
--- NOTE | 2022-02-19 16:07 | NUR ---
ABX DUE. PT REMAINS UP TO CHAIR. RESTING WITH EYES CLOSED, IV ASSESSED, WNL. NEW IV FLUIDS HUNG. IV ABX STARTED. PT CONTINUES RESTING, RESPIRATIONS EVEN AND UNLABORED. PTS DAUGHTER AT BEDSIDE. NO ADDTIONAL NEEDS AT THIS TIME. CALL LIGHT WITHIN REACH.
--- NOTE | 2022-02-19 16:25 | NUR ---
DR DODGE TO BEDSIDE FOR CONSULTATION. MRI TEAM CALLED FOR UPDATES REGARDING IMAGAING. STILL AWAITING RESULTS. STATES THEY WILL CALL BACK SHORTLY. PT AND FAMILY UPDATED ON PLAN OF CARE. PT AND FAMILY STATE THEIR QUESTIONS HAVE BEEN ANSWERED. NO ADDITIONAL NEEDS AT THIS TIME. CALL LIGHT WITHIN REACH.
--- NOTE | 2022-02-19 16:48 | NUR ---
DR UMAÑA STATES PT WILL GO TO OR IN THE MORNING FOR EXAMINATION OF PINKY TOE. PT TO BE NPO AT MIDNIGHT, ORDERS ENTERED.
--- NOTE | 2022-02-19 17:26 | NUR ---
MEDICATION DUE. PT EATING DINNER. MEDICATION GIVEN. PT REAMINS UP TO CHAIR. PT VERBALIZES UNDERSTANDING OF PLAN OF CARE. PT DENIES PAIN AND NAUSEA. NO ADDITIONAL REQUESTS OR COMPLAINTS AT THIS TIME. CALL LIGHT WITHIN REACH. BED RAILS UP.
--- NOTE | 2022-02-19 18:20 | NUR ---
FORESTRY BIOLOGY SPECIALIST REPORTS PT IS FEBRIAL. THIS RN TO ROOM. PT SHAKING WITH COLD AGAIN. TYLENOL GIVEN. BLOOD PRESSURE SLIGHTLY ELEVATED, WILL CONTINUE TO MONITOR. STAND BY ASSIST BACK TO BED. WARM BLANKETS PROVIDED. PT DENIES ADDITIONAL REQUESTS OR COMPLAINTS. CALL LIGHT WITHIN REACH. FAMILY AT BEDSIDE.
--- NOTE | 2022-02-19 18:34 | NUR ---
DR LAKHANI UPDATED ON PTS TEMPERATURE AND BLOOD PRESSURE. NO NEW ORDERS AT THIS TIME.
--- NOTE | 2022-02-19 20:18 | NUR ---
DR LAKHANI AT RN STATION AND CLARIFIED CURRENT INSULIN SS ORDERS pt IS SCHEDULED TO BE NPO AT MIDNIGHT AND SCHEDULED TO GO TO OR AT APPROX [address]. [address] LAKHANI, OKAY TO KEEP INSULIN ORDERS IS ([facility]) AND JUST SPOTCHECK pt AROUND 0200 TO ENSURE pt IS NOT BECOMING HYPOGLYCEMIC. PRIMARY RN NELLIE UPDATED AND AWARE.
--- NOTE | 2022-02-19 20:27 | NUR ---
CHECKED CBG, REPORTED FINDINGS TO DR. LAKHANI WITH CONCERNS OF ADJUSTMENT WITH PATIENT BEING NPO AT MIDNIGHT. DR. MARKS VERBALIZED TO CONTINUE WITH INSULIN REGIME AND TO CHECK BLOOD SUGAR AT 0200. PATIENT UPDATED ON POC. ALSO DISCUSSED PLAN FOR MORNING WITH SURGERY, PLAN TO SHOWER AT 0500 WITH HIBCLENSE SOAP. PROVIDED SNACK WITH INSULIN. NO OTHER NEEDS AT THIS TIME.
--- NOTE | 2022-02-19 20:52 | NUR ---
PATIENT CONTINUES TO BE FEBRILE [address] MARKS NOTIFIED, WILL ADMINISTER TYLENOL AT MIDNIGHT WHEN ABLE TO HAVE ANOTHER DOSE PER MAR. PATIENT DENIES FEELIN FEBRILE, REMOVED LAYERS OF BLANKET, AND PLACED SHEET.
--- NOTE | 2022-02-19 22:45 | NUR ---
PHONE CALL ANSWERED BY THIS RN FROM DAUGHTER YOHANNES ROJAS. DAUGHTER ASKED THAT THE pt's BLINDS BE CLOSED TO KEEP THE ROOM WARM BECAUSE HER DAD WAS COLD THE NIGHT BEFORE AND ALSO ASKS THAT THE pt RECEIVE ENOUGH BLANKETS. DAUGHTER REASSURED THAT pt WILL BE KEPT WARM AND THAT BLANKETS ARE DEPENDENT ON THE pt's TEMPERATURE/FEVER. DAUGHTER VERBALIZED UNDERSTANDING. PRIMARY RN NLELIE BROWN.
--- NOTE | 2022-02-19 23:55 | NUR ---
pt MADE NPO AT THIS TIME. BLINDS CLOSED PER REQUEST OF DAUGHTER YOHANNES WHO CALLED EARLIER IN SHIFT AT 2245. WATER AND FOOD REMOVED PER MD ORDERS, pt AWOKE TO VOICE AND EDUCATED ON NEED TO BE NPO. pt VERBALIZED UNDERSTANDING. CALL LIGHT IN REACH.
--- NOTE | 2022-02-20 02:10 | NUR ---
CBG 143. PATIENT AWOKE TO VERBAL STIMULI. CHECKED TEMPATURE 100.1, FEVER APPEARS TO HAVE BROKE. PROVIDED NEW PILLOW CASES AND COOL CLOTH. PATIENT DENIES ANY PAIN AT THIS TIME. DISCUSSED PLAN FOR SHOWER AT 0500 TO PREPARE FOR SURGERY. LR WITH STRAIGHT TUBING HANGING IN ROOM. PRE-PROCEDURE CHECKLIST DONE.
--- NOTE | 2022-02-20 06:55 | EKG ---
[facility] [address] [place], [place] [address] Signed Normal sinus rhythm Nonspecific T wave abnormality Abnormal ECG When compared with ECG of 14-JUL-2021 10:51, No significant change was found Confirmed by PAULA LAKHANI MD ([id number]) on 02/20/2022 6:55:25 AM Electronically Signed By: PAULA LAKHANI MD 02/20/22 0655 PATIENT NAME: LIVE ROJAS Electrocardiogram DATE OF : 67 PHYSICIAN: PAULA LAKHANI MD REPORT #: [id number] REPORT IS CONFIDENTIAL AND NOT TO BE RELEASED WITHOUT AUTHORIZATION
--- NOTE | 2022-02-20 07:11 | NUR ---
REPORT RECEIVED FROM NELLIE COTE, PT RESTING IN BED ON BACK, DR DODGE AT BEDSIDE TO SIGN CONSENT FOR SURGERY. PT VERBALIZES UNDERSTANDING OF PROCEEDURE AND STATES HIS QUESTIONS HAVE BEEN ANSWERED. PT DENIES PAIN AND NAUSEA. NO ADDITIONAL REQUESTS OR COMPLAINTS. CALL LIGHT WITHIN REACH. BED RAILS UP.
--- NOTE | 2022-02-20 07:24 | NUR ---
MORNING ASSESSMENT DUE. PT READY FOR OR. PT AWAKE AND OREINTED. PT DENEIS PAIN AND NAUSEA. IV'S ASSESSED, WNL, NO S/S OF PHLEBITIS NOTED. LEFT HAND IV SALINE LOCKED. LR ON STRAIGHT TUBING STARTED PER OR ORDER TO LEFT FORARM IV SITE. HEART TONES REMAIN REGULAR. LUNG SOUNDS NOW LCARE THROUGHOUT. PT DEMONSTRATES USE OF I.S. REACHING 1700-1900ML X5. BILATERAL LOWER EXTREMITIES REMAIN SDRY AND SCALY WITH PSORIASIS NOTED. STRONG PLANTAR AND NOMAN FLEXION. FAINT PULSES FELT. NEUROPATHY UNCHANGED. LEFT PINKY TOE REMAINS BLACK AND NECROTIC, MINIMAL SEROUS PURLANT DRAINAGE NOTED. +2 PITTING EDEMA REMAINS TO LLE WITH TRACE EDEMA NOTED IN RLE. STRONG ODOR FROM LEFT FOOT CONTINUES. VANCE DUMP GRADER, CONSULTED AND STATES TO GIVE METOPROLOL, FLAMOTADINE AND ABX, GIVEN WITH A SIP OF WATER. OTHER MEDICATIONS HELD PT IS NPO AND HEADING TO OR. PT TRANSFERS SELF TO STRETCHER. REPORT GIVEN TO ROCAEL WOODARD. NO ADDITIONAL REQUESTS OR COMPLAINTS. PT TO OR.
--- NOTE | 2022-02-20 08:20 | NUR ---
PTS DAUGHTER ARRIVED TO UNIT. UPDATED ON PTS STATUS AND PLAN OF CARE. STATES HER QUESTIONS HAVE BEEN ANSWERED AND SHE WILL RETURN AT A LATER TIME.
--- NOTE | 2022-02-20 08:53 | NUR ---
WHILE PATIENT IS IN SURGERY I WENT IN AND CHANGED HIS BED LINENS. ALSO BRUSHED HIS DENTURES AND PUT THEM BACK IN HIS DENTURE CUP AND PUT IT IN THE BATHROOM. STRAIGHTEN UP HIS ROOM.
--- NOTE | 2022-02-20 09:12 | NUR ---
02/20/22 0912 Marisela Thacker 0953-PATIENT ARRIVED TO PACU ON 10L MASK PLACED ON 6L MASK RR EVEN NONAROUSABLE ORAL AIRWAY IN PLACE. DRESSING TO LEFT FOOT CDI ELEVATED ON PILLOW. XRAY PLACED. IVF INFUSING. GLUCOSE CHECKED 100. CAP REFILL ON TOES LESS THAN 2 SECONDS MURTAZA PEDAL PULSE.
--- NOTE | 2022-02-20 09:57 | NUR ---
PT RETURNED FROM PACU. REPORT RECEIVED FROM ROCAEL SORIANO. PT SIDE TRANSFERSE SELF FROM STRETCHER TO BED. PT DENIES PAIN AND NAUSEA. CRACKERS AND WATER PROVIDED TO PT. PT TOLERATING WELL. PT ALERT AND OREINTED TO ALL. HEART TONES REGULAR. LUNG SOUNDS CLEAR. COPX PLACED WITH PT MATINTING OXYGEN SATURATIONS ABOVE 90% ON ROOM AIR. CURRENTLY 94% +1 PITTING EDEMA TO LEFT LOWER LEG. TRACE EDEMA NOTED TO RIGHT LOWER LEG. DRESSING TO LEFT FOOT SURGICAL SITE CLEAN DRY AND INTACT WITH NO DRAINAGE NOTED. PT ABLE TO MOVE TOES. PT UNABLE TO FEEL TOES IN EITHER FOOT, CANNOT IDENTIFY TOE THAT IS TOUCHED. STRONG PLANTAR AND DORSI FLEXION NOTED. IV FLUIDS RESTARTED. DR LAKHANI TO BEDSIDE AND STATES TO MONITOR URINE OUTPUT CLOSELY AND NOTIFY IF PT DOES NOT VOID QUANTITY SUFFICIENT. NO ADDITONAL REQUESTS OR COMPLAINTS. CALL LIGHT WITHIN REACH. BED RAILS UP.
--- NOTE | 2022-02-20 10:39 | NUR ---
VITALS AND ASSESSMENT DUE. PT RESTING IN BED, FAMILY ARRIVED TO BEDSIDE. FAMILY UPDATED ON PT STATUS AND PLAN OF CARE. PT DENIES PAIN AND NAUSEA. PT REMAINS ALERT AND ORIENTED TO ALL. DRESSING TO LEFT FOOT REMAINS C/D/I WITH NO DRAINAGE NOTED. NUMBNESS TO BILATERAL FEET UNCHANGED. STRONG PLANTAR AND DORSI FLEXION NOTED. PT CONTINUES TO TOLERATE ROOM AIR WITH OXGYEN SATURATIONS ABOVE 92%. PT DENIES ADDITIONAL REQUESTS OR COMPLAINTS. CALL LIGHT WITHIN REACH. BED RAILS UP. FAMILY AT BEDSIDE.
--- NOTE | 2022-02-20 11:41 | NUR ---
VITALS AND ASSESSMENT DUE. THIS RN TO ROOM. PT RESTING IN BED AWAKE AND ALERT AND VISITING WITH FAMILY. PT DENIES PAIN AND NASUEA. PT ANTICIPATING LUNCH AND REPORTS HE IS HUNGRY. DRESSING TO LEFT FOOT C/D/I WITH NO DRAINAGE NOTED. PT ABLE TO MOVE TOES AND STRONG PLANTAR AND DORSI FLEXION NOTED. PT REMAINS UNABEL TO FEEL TOES, PER BASELINE. PT CONTINUES TO TOELRATE ROOM AIR WITH OXGYEN SATURATIONS ABOVE 94%. CPOX IN PLACE. PT DEMONSTARTES USE OF I.S. REACHIGN 1250-1700ML X 5. NO ADDITONAL REQUESTS OR COMPLAINTS. CALL LIGHT WITHIN REACH. BED RAILS UP. FAMILY AT BEDSIDE.
--- NOTE | 2022-02-20 11:54 | NUR ---
PT CALL LIGHT ON. PT REPORTS HE NEEDS TO VOID. STAND BY ASSIST UP TO STAND AND USE URINAL. PT VOIDS 400ML CLEAR YELLOW URINE. PT DENIES INCREASED PAIN OR NAUSEA WITH ACTIVITY. STAND BY ASSIST BACK TO BED. NO ADDITIONAL REQUESTS OR COMPLAINTS. LUNCH DELIVERED. INSLUIN GIVEN. CALL LIGHT WITHIN REACH.
--- NOTE | 2022-02-20 12:42 | NUR ---
VITALS AND ASSESSMENT DUE. PT FINISHED WITH LUNCH, AT 100%. PT DENIES NAUSEA. PT CONTINUES TO DENY PAIN IN LEFT FOOT. VITAL SIGNS STABLE. PT ALERT AND ORINTED TO ALL. LUNG SOUNDS REMAIN CLEAR. CPOX IN PLACE WITH OXGYEN SATRUATIONS ABOVE94% ON ROOM AIR. PT DEMONSTRATES USE OF I.S. REACHIGN 1700-2000ML X5. PT ENCOURAGED TO CONTINUE USING I.S. HEART TONES REGULAR. NEUROPATHY UNCHANGED. PT UNABLE TO IDENTIFY TOE THAT IS TOUCHED. PT MOVES TONES, BILATERAL PLANTAR AND DORSI FLEXION STRONG. DRESSING TO LEFT FOOT REMAINS C/D/I WITH NO DRAINAGE NOTED. FAINT PULSES UNCHANGED. PT VOIDING QUANTITY SUFFICIENT. PT DENIES ADDITIONAL REQUESTS OR COMPLAINTS. CALL LIGHT WITHIN REACH. BED RAILS UP. FAMILY AT BEDSIDE.
--- NOTE | 2022-02-20 13:40 | NUR ---
THIS RN TO ROOM TO CHECK ON PT. PT UP TO BEDSIDE COMODE WITH ROCAEL MOHAN. PT HAS LARGE SOFT BROWN BOWEL MOVEMENT. MELANIE CARE DONE. DEPENDS CHANGED. POST OP SHOE PLACED TO LEFT FOOT. DRESSING REMAINS C/D/I WITH NO DRAINAGE NOTED. STAND BY ASSIST UP TO CHAIR. PT DENIES PAIN AND NAUSEA. OXYGEN SATURATION 96% ON ROOM AIR WITH COPX IN PLACE. DIET 7-UP PROVIDED PER PT REQUEST. NO ADDITIONAL REQUESTS OR COMPLAINTS. CALL LIGHT WITHIN REACH.
--- NOTE | 2022-02-20 14:50 | NUR ---
THIS RN TO ROOM TO CHECK ON PT. PT REMAINS UP TO CHAIR, VISITING WITH FAMILY. PT DENIES PAIN AND NAUSEA. PT REQUESTS ADDITIONAL 7-UP, PROVIDED WITH ICE. NO ADDITONAL REQEUSTS OR COMPLAINTS. CALL LIGHT WITHIN REACH.
--- NOTE | 2022-02-20 15:36 | NUR ---
PT CALL LIGHT ON. PT REQUESTS ASSISTANCE TO USE URINAL. PT ALREADY UP TO STAND WHEN THIS RN ARRIVES TO ROOM. PT VOIDS 550ML YELLOW URINE. MELANIE CARE PERFORMED PER PT. STAND BY ASSIST BACK TO CHAIR. PT DENIES ADDITIONAL REQUESTS OR COMPLAINTS. CALL LIGHT WITHIN REACH.
--- NOTE | 2022-02-20 16:27 | NUR ---
MEDICATION DUE. AFTERNOON ASSESSMENT DUE. THIS RN TO ROOM. PT RESTING IN RECLINER WITH EYES CLOSED. PT AWAKENS TO MOVEMENT IN THE ROOM. PT DENIES PAIN AND NAUSEA. IV ASSESSED, WNL. NO S/S OF PHLEBITIS NOTED. IV ABX STARTED. NEW IV FLUID BAG HUNG AND RATE CHANGED PER MD ORDER. NEUROPATHY UNCHANGED. LUNG SOUNDS REMAIN CLEAR. PT DEMONSTRATES USE OF I.S. REACHING 1700-2000ML X5. OXYGEN SATURATIONS ABOVE 94% ON ROOM AIR. HEART TONES REGULAR. EDEMA UNCHANGED. SENSATION REMAINS IMPAIRED (UNCHANGED) TO BLE. PT ABLE TO MOVE TOES BILATERALLY, EQUAL PLANTAR AND DORSI FLEXION BILATERALLY. FAINT PULSES TO LOWER EXTREMITIES. DRESSING TO LEFT LOWER EXTREMITY REMAINS C/D/I WITH NO DRAINAGE NOTED. POST OP SHOE IN PLACE. PT RETURNS TO RESTING WITH EYES CLOSED. RESPIRATIONS EVEN AND UNLABORED. CALL LIGHT WITHIN REACH. NO ADDITIONAL NEEDS OR REQUESTS.
--- NOTE | 2022-02-20 16:55 | NUR ---
PT HERE FOR FOR LLE CELLULITIS. SURGERY THIS SHIFT FOR REMOVAL OF LEFT PINKY TOE. PT UP WITH STAND BY ASSIST TO RESTROOM AND CHAIR THIS SHIFT. POST OP BOOT IN PLACE. DRESSING TO LEFT LOWER EXTREMITY C/D/I WITH NO DRAINAGE NOTED THROUGHOUT SHIFT. FAINT PULSES TO BLE. MOVMENT INTACT, NEUROPATHY PER BASELINE. TOLERATING 60G CARB DIET WITH GOOD INTAKE. BLOOD SUGAR CHECKS WITH MEALS AND SLIDING SCALE INSLUIN GIVEN. PT REPORTS DENIES PAIN THIS SHIFT, NO PAIN MEDCATION GIVEN. PT AFEBRIAL THIS SHIFT, SO FAR THIS SHIFT. IV FLUIDS CONTINUE, MONITORING URINE OUTPUT. PT VOIDING QUANTITY SUFFICIENT. PT USES CALL LIGHT AND MAKES NEEDS KNOWN.
--- NOTE | 2022-02-20 17:29 | NUR ---
MEDICATION DUE. PT UP TO CHAIR EATING DINNER. TOLERATING ROOM AIR WITH OXGYEN SATURATION OF 98%. PT DENIES PAIN AND NAUSEA. MEDICATION GIVEN. DRESSING TO LLE REMAINS C/D/I WITH NO DRAINAGE NOTED. NO ADDITIONAL REQUESTS OR COMPLAINTS. CALL LIGHT WITHIN REACH.
--- NOTE | 2022-02-20 18:38 | NUR ---
THIS RN TO ROOM TO CHECK ON PT. PT RESTING IN RECLINER VISTING WITH FAMILY IN THE ROOM, MULTIPLE FAMILY MEMBERS PRESENT. PT DENIES PAIN AND NAUSEA. PT AT 100% OF DINNER. ADDITONAL DIET 7-UP PROVIDED. NO ADDITIONAL REQUESTS OR COMPLAINTS. CALL LIGHT WITHIN REACH.
--- NOTE | 2022-02-20 21:00 | NUR ---
PATIENT RESTING IN RECLINER, HAS MULTIPPLE FAMILY MEMBERS IN ROOM. PATIENT REPORTS NO PAIN AT THIS TIME. FULL BODY ASSESMENT DONE. CALL LIGHT WITHIN REACH NO OTHER NEEDS AT THIS TIME.
--- NOTE | 2022-02-21 01:59 | NUR ---
PT CALLED, SAID IV ALARMING. LEFT HAND SWOLLEN, SIGNS OF INFILTRATION. PRIMARY RN INTO ROOM. IV DC'D, PRIMARY RN STATES THAT THE LFA NEEDED TO BE DC'D WELL. LEFT HAND, ARM ELEVATED ON PILLOW. PRIMARY RN REMAINED IN ROOM.
--- NOTE | 2022-02-21 02:30 | NUR ---
STARTED NEW IV TO RIGHT WRIST, PATIENT RESTING BACK IN BED. PROVIDED PATIENT WITH SALTINE CRACKERS AND WATER. DRESSING TO FOOT INTACT WITH NO NEW DRAINAGE. PATIENT USING URINAL IN BED. NO OTHER NEEDS AT THIS TIME. CALL LIGHT WITHIN REACH.
--- NOTE | 2022-02-21 05:30 | NUR ---
PATIENT RESTING BACK IN BED, APPEARS CALM. DRESSING TO FOOT INTACT WITH NO NEW DRAINAGE. IV FLUIDS INFUSING WELL. REPORTS NO PAIN AT THIS TIME. CALL LIGHT WITHIN REACH.
--- NOTE | 2022-02-21 07:20 | NUR ---
REPORT RECEIVED FROM ROCAEL BALLARD. PT RESTING IN BED WITH EYES CLOSED, AWAKENS DURING BEDSIDE REPORT. PT DENIES PAIN AND NAUSEA. LEFT FOOT DRESSING REMAINS C/D/I BUT FROM SMALL PINPOINT RED SHADOWING ON PAD OF FOOT. PT DENIES ADDITIONAL REQEUSTS OR COMPLAINTS, REPORTS HE WOULD LIKE TO SLEEP MORE. ROOM DARKENED. BED RAILS UP. CALL LIGHT WITHIN REACH. PT ALLOWED TO REST.
--- NOTE | 2022-02-21 07:44 | NUR ---
MORNING ASSESSMENT AND MEDICATION DUE. THIS RN TO ROOM. PT RESTING IN BED, AWAKE AND ALERT. PT DENIES PAIN AND NASUEA. STAND BY ASSIST UP TO USE URINAL AND THEN UP TO CHAIR. PT REPORTS FEELING "REALLY HEAVY" AND EXPLAINS THAT HIS EYES STILL FEELS "HEAVY." PT ENCORUAGED TO REST. PUPILS WNL. NICHO NOTED. IV ASSESSED, WNL, BRISK BLOOD RETURN NOTED. NO S/S OF PHLEBITIS NOTED. PT ALERT AND ORIENTED TO ALL. NEURPATHY UNCHANGED. PT REMAINS UNABLE TO IDENTIFY TOE THAT IS TOUCHED ON EITHER FOOT. MOVEMENT WNL, STRONG PLANTAR AND DORSI FELXION NOTED. SMALL CRACKELS NOTED IN LEFT LOWER LOBE, I.S. USE DEMONSTRATED X5 WITH PT REACHING 2000ML, CRACKELS RESOLVED. PT TOLERATING ROOM AIR WITH OXGYEN SATURATIONS AT 100%, CPOX DC'D. HEART TONES REGULAR AT THIS TIME. +1 PITTING EDEMA REMAINS TO LLE, TRACE TO RLE, LEFT HAND SHOWS GENERALIZED SWELLING RELATED TO IV INFILTRATION LAST SHIFT. PT STATES "IT'S GETTING BETTER." PT DENIES PAIN IN LEFT HAND. NO REDNESS OR SKIN BREAK DOWN SEEN. DRESSING TO LLE REMAINS C/D/I BUT FOR SMALL PIN POINT DRAINAGE TO PAD OF FOOT. POST OP SHOE IN PLACE, IMPORTANCE OF WEARING AND HOW TO APPLY EDUCATION DONE WITH PT. ICE WATER REFILLED. NO ADDITIONAL REQUESTS OR COMPLAINTS. CALL LIGHT WITHIN REACH.
--- NOTE | 2022-02-21 07:51 | NUR ---
PT AWAKE IN BED. WINDOW OPENED. WHITE BOARD UPDATED. WARM CLOTH GIVEN FOR FACE. CALL LIGHT WITHIN REACH. NO FURTHER NEEDS AT THIS TIME.
--- NOTE | 2022-02-21 08:45 | NUR ---
THIS RN TO ROOM TO CHECK ON PT. PT REMAINS UP TO CHAIR. FINISHED WITH BREAKFAST. PT CONTINUES TO DENY PAIN AND NAUSEA. IV ABX CONTINUE INFUSING, IV WNL, NO S/S OF PHLEBITIS NOTED. CALL LIGHT WIHTIN REACH. NO ADDITIONAL REQUESTS OR COMPLAINTS.
--- NOTE | 2022-02-21 09:49 | NUR ---
THIS RN TO ROOM WITH DR. DODGE FOR DRESSING CHANGE. DRESSING REMOVED BY DR DODGE AND XEROFORM, ADAPTIC, GAUZE AND COBAN APPLIED. SOCK PLACED OVER DRESSING PER DR DODGE TO KEEP DRESSING CLEAN. POST OP BOOT BACK IN PLACE. EDUCATION DONE WITH PT BY DR. UMAÑA REGARDING POST OP CARE AND PLAN OF CARE. WOUND BED SHOWS SURGERS WITH APPROXIMATED EDGES AT THIS TIME. ~4CM INCISION LENGTH. PT DOM CARO THROUGHOUT DRESSING CHANGE. PT VERBALIZES UNDERSTANDING OF PLAN OF CARE AND STATES HIS QUESTIONS HAVE BEEN ANSWERED. NO ADDITOINAL NEEDS AT THIS TIME. CALL LIGHT WITHIN REACH.
--- NOTE | 2022-02-21 10:40 | NUR ---
HOURLY ROUNDING: THIS RN TO ROOM TO CHECK ON PT. PT CONTINUES TO DENY PAIN AND NAUSEA. PT REMAINS UP TO CHAIR. NO REQUESTS OR COMPLAINTS AT THIS TIME. CALL LIGHT WITHIN REACH.
--- NOTE | 2022-02-21 11:33 | NUR ---
HOURLY ROUNDING: THIS RN TO ROOM TO CHECK ON PT. PT VISITING WITH FAMILY WHO HAVE ARRIVED. FAMILY UPDATED ON PLAN OF CARE, FAMILY VERBALIZES UNDERSTANDING AND STATES THEIR QUESTIONS HAVE BEEN ANSWERED. PT DENIES PAIN AND NAUSEA. NO ADDITIONAL REQUESTS OR COMPLAINTS. CALL LIGHT WITHIN REACH. BED RAILS UP.
--- NOTE | 2022-02-21 12:03 | NUR ---
BLOOD SUGAR DUE. THIS RN TO ROOM. PT REMAINS UP TO CHAIR. DENIES PAIN AND NAUSEA. BLOOD SUGAR ASSESSED, INSLUIN GIVEN. LUNCH DELIVERED. PT CONTINUES VISITING WITH FAMILY. NO ADDITIONAL REQUESTS OR COMPLAINTS. CALL LIGHT WITHIN REACH.
--- NOTE | 2022-02-21 13:28 | NUR ---
HOURLY ROUNDING: PT REMAINS UP TO CHAIR. PT CONTINUES TO DENY PAIN AND NAUSEA. PTS FAMILY HAVE BROUGHT HIM PEANUTS FOR SNACK. FAMILY LEFT BEDSIDE. PT DENIES ADDTIONAL REQUESTS OR COMPLAINTS. CALL LIGHT WITHIN REACH.
--- NOTE | 2022-02-21 14:13 | NUR ---
AFTERNOON ASSESSMENT DUE. THIS RN TO ROOM. PT REMAINS UP TO CHAIR, AWAKEN, ALERT AND ORIENTED TO ALL. PT CONTINUES TO DENY PAIN AND NAUSEA. IV SITE REMAINS WNL, WITH NO S/S OF PHLEBITIS. NEUROPATHY UNCHANGED, PT UNABLE TO IDENTIFY TOE THAT IS TOUCHED. PT CAN FEEL UPPER CALVES. EDEMA TO LLE IMPROVING NOW TRACE TO +1. TRACE EDEMA NOTED TO RLE. FAINT PULSES CONTINUE. DRESSING TO LLE INTACT WITH TRACE AMOUNT OF RED SHADOWING NOTED OVER SURGICAL SITE. SOCK IN PLACE WITH POST OP SHOE OVER SOCK. EDUCATION DONE WITH PT REGARDING KEEPING DRESSING CLEAN, PT VERBALIZES UNDERSTANDING. LUNG SOUNDS REMAIN CLEAR. OXYGEN SATURATION OF 98-100% ON ROOM AIR. PT REMAINS AFEBRIAL SO FAR THIS SHIFT. HEART TONES REGULAR. SWELLING TO LEFT HAND IMPROVING. NO ADDITIONAL REQUESTS OR COMPLAINTS AT THIS TIME. ICE WATER REFILLED, DIET 7-UP PROVIDED. CALL LIGHT WITHIN REACH.
--- NOTE | 2022-02-21 14:59 | NUR ---
THIS RN TO ROOM TO CHECK ON PT. PT REMAINS UP TO CHAIR, EATING PEANUTS. PT DENIES PAIN AND NAUSEA. NO REQUESTS OR COMPLAINTS. CALL LIGHT WITHIN REACH.
--- NOTE | 2022-02-21 15:43 | NUR ---
THIS RN TO ROOM TO CHECK ON PT. PT RESTING IN CHAIR. URINAL EMPTIED OF 400ML CLEAR YELLOW URINE. PT DENIES PAIN AND NAUSEA. NO ADDITIONAL REQUESTS OR COMPLAINTS. CALL LIGHT WITHIN REACH.
--- NOTE | 2022-02-21 15:56 | NUR ---
PT HERE FOR FOR LLE CELLULITIS. PT UP WITH STAND BY ASSIST TO RESTROOM AND CHAIR THIS SHIFT. POST OP BOOT IN PLACE. DRESSING TO LEFT LOWER EXTREMITY C/D/I WITH SCANT DRAINAGE NOTED NEAR PINKY TOE SITE. FAINT PULSES TO BLE. DRESSING CHANGED BY DR. DODGE THIS SHIFT. MOVMENT INTACT, NEUROPATHY PER BASELINE. TOLERATING 60G CARB DIET WITH GOOD INTAKE. BLOOD SUGAR CHECKS WITH MEALS AND SLIDING SCALE INSLUIN GIVEN. PT DENIES PAIN THIS SHIFT, NO PAIN MEDCATION GIVEN. PT AFEBRIAL THIS SHIFT, SO FAR THIS SHIFT. IV FLUIDS CONTINUE, MONITORING URINE OUTPUT. PT VOIDING QUANTITY SUFFICIENT. PT USES CALL LIGHT AND MAKES NEEDS KNOWN.
--- NOTE | 2022-02-21 16:30 | NUR ---
RHETT SUH: THIS RN TO ROOM TO CHECK ON PT. JENN LAWSON PT UPDATED ON PLAN OF CARE. PT CONTINUES TO DENY PAIN AND NAUSEA. PT DENIES ADDITIONAL REQUESTS OR COMPLAINTS. CALL LIGHT WITHIN REACH.
--- NOTE | 2022-02-21 17:06 | NUR ---
MEDICATION DUE. DINNER DELIVERED TO PT. INSULIN GIVEN. NEW IV FLUID BAG HUNG, RATE ADJUSTED PER MD ORDER. PT CONTINUES TO DENEY PAIN AND NASUEA. DRESSING UNCHANGED. POST UP SHOE REMAINS IN PLACE. NO ADDITONAL REQUESTS OR COMPLAINTS. CALL LIGHT WITHIN REACH.
--- NOTE | 2022-02-21 18:30 | NUR ---
THIS RN TO ROOM TO CHECK ON PT. PT UP TO RESTROOM WITH STAND BY ASSIST. PT VOIDS WITHOUT ISSUE. STAND BY ASSSIT BACK TO BED. POST OP SHOE REMOVED. DRESSING TO LEFT FOOT REMAINS C/D/I WITH ONLY SMALL AMOUNT OF RED SHADOWING PREVIOUSLY NOTED, UNCHANGED. PT CONTINUES TO DENY PAIN AND NAUSEA. SOCK REAPPLIED TO FOOT. PT REQEUSTS A SNACK, GRANOLA BAR AND SUGAR FREE PUDDING PROVIDED PER PT REQUEST. NO ADDITIONAL REQUESTS OR COMPLAINTS. CALL MARLYS GALLARDO. BED RAILS UP.
--- NOTE | 2022-02-21 20:50 | NUR ---
INTO ROOM PATIENT RESTING WITH EYES CLOSED. AWAKES WITH VERBAL STIMULI. DRESSING TO FOOT APPEARS INTACT, NOTED MINIMAL SHADOWING AT SURGICAL SITE. PROVIDED EDUCATION ABOUT CONTROLLING BLOOD SUGARS AND SKIN CARE. PATIENT APPEARED RECEPTIVE AND ASKED QUESTIONS. CBG 140 NO INSULIN COVERAGE. ADMINISTERED EVENING MEDICATIONS. VSS WNL. ADMINISTERED LONG ACTING INSULING AND PROVIDED EVENING DIABETIC SNACK. FULL BODY ASSESMENT DONE. NO OTHER NEEDS AT THIS TIME.
--- NOTE | 2022-02-21 21:18 | NUR ---
PATIENT CALLED TO USE BATHROOM, ASSISTED WITH PLACING WALKING SHOE ON.PATIENT STEADY ON FEET AMBULATING INTO BATHROOM WITH IV POLE. REPORTS NEED TO HAVE BM. WILL PULL CALL STRING WHEN READY TO GO BACK TO BED.
--- NOTE | 2022-02-21 22:25 | NUR ---
PATIENT UP TO BATHROOM, REPORTS HAS DIARRHEA AND VERBALIZED HE THINKS IT IS FROM DINNER. PATIENT ABLE TO APPLY WALKING SHOE. AND APPEARS STEADY ON FEET WITH AMBULATION. IV ANTIBIOTICS CONTINUING TO INFUSE WITH IV FLUIDS.
--- NOTE | 2022-02-21 23:37 | NUR ---
PROVIDED EDUCATION PRINTOUT ON DM FOOT CARE AND SKIN CARE. PATIENT VERBALIZED WOULD READ EDUCATION TOMORROW, NOT INTERESTED RIGHT NOW.
--- NOTE | 2022-02-22 00:06 | NUR ---
PATIENT RESTING BACK IN BED WATCHING TELEVISION. OFFERED MELATONIN PRN, PATIENT REFUSED. NO NEEDS AT THIS TIME.
--- NOTE | 2022-02-22 03:00 | NUR ---
PATIENT RESTING IN BED, SUPINE POSITION. ROOM COOL, TURNED UP HEAT AND PROVIDED WARM BLANKET. PATIENT AWOKE, VERBALIZED NO NEEDS AT THIS TIME.
--- NOTE | 2022-02-22 06:33 | NUR ---
ROUNDED ON PATIENT AND REPORTED THAT FROM HIS STANDPOINT PATIENT COULD BE DISCHARGED HOME ONCE HOSPITALIST IS OKAY WITH DC. PATIENT AWAKE IN ROOM WATCHING TELEVISION. NO NEEDS AT THIS TIME.
--- NOTE | 2022-02-22 07:05 | NUR ---
bedside report from [facility], pt resting in bed with legs up, call light in reach - denies needs, drsg to left foot with socks on, LR at 75 and oriented to this nurse - white board updated.
[2022-02-22] MEDS ORDERED: DOXYCYCLINE HY100 MG PO (11:59)
--- NOTE | 2022-02-22 12:15 | NUR ---
PT IN CH EATING MEAL - INSULIN GIVEN, PT DENIES NEEDS. EXCITED FOR DC HOME TODAY.
--- NOTE | 2022-02-22 13:00 | NUR ---
iv dc intact, dc inst reviewed verbal and printed. pharmacy chikis was in to review med - waiting for ride home.
--- NOTE | 2022-03-03 11:11 | PATH ---
[facility] [address] [place], [place] [address] Signed SPECIMEN(S): A LEFT FIFTH TOE SPECIMEN SOURCE: A. LEFT FIFTH TOE CLINICAL HISTORY: Gangrene FINAL PATHOLOGIC DIAGNOSIS: Left fifth toe, amputation: - Gangrenous necrosis with evidence of acute osteomyelitis. - The proximal articulating surface is viable. AKINK:[facility]:[id number] MICROSCOPIC EXAMINATION: Histologic sections of all submitted blocks are examined by light microscopy. These findings, together with the gross examination, support the pathologic diagnosis. GROSS DESCRIPTION: The specimen, labeled "SJ, A," and designated on the requisition "left fifth toe," is received in formalin and consists of a brown-kelly toe (5.3 x 2.7 x 2.2 cm) is scott-brown devitalized skin and sloughing of the epidermal surface. The toe is disarticulated at the metatarsophalangeal joint. The skin and soft tissue margins are inked black and do not appear grossly viable. [employer] sections are submitted as follows following decalcification in Decal Stat: (A1) distal toe with underlying bone and skin and soft tissue margin (A2) proximal articulating surface AC (under the direct supervision of a pathologist) The Gross Description was prepared using a voice recognition system. The report was reviewed for accuracy; however, sound-alike word errors, addition and/or deletions may occur. If there is any question about this report, please contact Client Services. PERFORMING LABORATORY: The technical component was performed by [facility], [address] [place] [id number] (CLIA# [id number]). The professional interpretation was performed by [facility], [facility], [address] [place] [address] (CLIA#: [id number]). PATIENT NAME: LIVE ROJAS PATHOLOGY DATE OF : 67 REPORT #: [id number] PHYSICIAN: KYLE PATHOLOGY PCP: [facility] REPORT IS CONFIDENTIAL AND NOT TO BE RELEASED WITHOUT AUTHORIZATION [address] [place] [address] Signed Diagnostician: Domo Jesus MD Pathologist Electronically Signed 03/03/2022 Copies: ~ PATIENT NAME: LIVE ROJAS PATHOLOGY DATE OF : 67 REPORT #: [id number] PHYSICIAN: KYLE PATHOLOGY PCP: [facility] REPORT IS CONFIDENTIAL AND NOT TO BE RELEASED WITHOUT AUTHORIZATION
--- NOTE | 2022-03-11 06:37 | OR ---
[facility] [address] [place], [place] [address] Signed DATE OF OPERATION: 02/20/2022 SURGEON: Sheila Dodge DPM INDICATION: The patient is seen today for surgery of left 5th digit due to infection/gangrene left 5th toe. SPECIMEN TO PATHOLOGY: Soft tissue and bone of left 5th digit amputation. PREOPERATIVE DIAGNOSES: 1. Gangrene, left 5th digit. 2. Cellulitis, left foot. POSTOPERATIVE DIAGNOSES: 1. Gangrene, left 5th digit. 2. Cellulitis, left foot. PROCEDURE: Amputation left 5th digit. DESCRIPTION OF PROCEDURE: Patient was brought to the operating room and placed on the table in the supine position. Anesthesia dept admisintered IV sedation, after which a local block was givin to the left foot using 6 ml 1:1 mix, 2% lidocaine and 0.5 % ropivicaine. The left leg and foot was then preped and draped in the usual sterile manner. An esmarch was used as a tourniquet, but was removed within 5 minutes, since it was not providing hemostasis. Attention was initially directed to the left 5th digit, where an incision was made at the base of the toe with a racquet style incision and the handle of the racquet extending onto the dorsal aspect of the 5th metatarsal. The incision was initially full-thickness through the dermis and extending deep to bone. Soft tissues then reflected proximally to expose the base of the 5th digit and to disarticulate the toe at the MTPJ. Intra-operative cultures obtained at this time as well. The entire toe then removed and sent for pathology. A small amount of remaining necrotic soft tissue is noted to the plantar and medial aspect within the amputation site. Then, a track also noted within the plantar aspect of the intermetatarsal space probing several cm proximal, easily 5 or 6 cm proximal. The necrotic soft tissue debrided using hand instrumentation, the surgical site irrigated Electronically Signed By: SHEILA DODGE DPM 03/11/22 0637 PATIENT NAME: LIVE ROJAS OPERATIVE REPORT DATE OF : 67 REPORT #: [id number] PHYSICIAN: SHEILA DODGE DPM [facility] REPORT IS CONFIDENTIAL AND NOT TO BE RELEASED WITHOUT AUTHORIZATION [facility] [address] [place], [place] [address] Signed with copious amounts of normal saline and then inspected again for any remaining necrotic soft tissue and none was noted. At this time, calcium sulfate antibiotic beads were placed into the wound site. The beads contain vancomycin and these were placed deep into the area of tracking as well as around the head of the 5th metatarsal and the remainder of the surgical site then closed using 4-0 nylon monofilament suture. The remaining bone to the 5th metatarsal and the cartilage to the 5th metatarsal head were intact and appeared to be without discoloration or necrosis. Dressings applied consisting of Adaptic, Betadine-soaked gauze, dry gauze, Flexicon, and Coban for mild compression. ESTIMATED BLOOD LOSS: Less than 50 mL. INTRAOPERATIVE COMPLICATIONS: None. Note: Patient tolerated the procedure and the anesthesia well and left the operating room with vital signs stable and vascular status intact left foot as evidenced by good color to the foot. Sheila Dodge DPM DFB/MODL /[id number] Copies: ~ Electronically Signed By: SHEILA DODGE DPM 03/11/22 0637 PATIENT NAME: LIVE ROJAS OPERATIVE REPORT DATE OF : 67 REPORT #: [id number] PHYSICIAN: SHEILA DODGE DPM PCP: [facility] REPORT IS CONFIDENTIAL AND NOT TO BE RELEASED WITHOUT AUTHORIZATION
== END 2022-02-22 13:25 | disposition home or self-care (01) | DRG 854 ==
LOC: ED 16:50 → MS 21:09
PROVIDERS: Podiatrist Foot Surgery; ADMIT Internal Medicine; ATTEND Internal Medicine
PROC: 3E03329 Introduction of Other Anti-infective into Peripheral Vein, Percutaneous Approach (ICD-10-PCS; principal; 2022-02-18)
PROC: 0Y6Y0Z0 Detachment at Left 5th Toe, Complete, Open Approach (ICD-10-PCS; 2022-02-20 08:00)
DX: A41.01 Sepsis due to Methicillin susceptible Staphylococcus aureus (principal); E11.52 Type 2 diabetes mellitus with diabetic peripheral angiopathy with gangrene; I96 Gangrene, not elsewhere classified; M86.8X7 Other osteomyelitis, ankle and foot; N17.9 Acute kidney failure, unspecified; N18.4 Chronic kidney disease, stage 4 (severe); E11.42 Type 2 diabetes mellitus with diabetic polyneuropathy; E11.22 Type 2 diabetes mellitus with diabetic chronic kidney disease; I48.91 Unspecified atrial fibrillation; E78.00 Pure hypercholesterolemia, unspecified; B95.61 Methicillin susceptible Staphylococcus aureus infection as the cause of diseases classified elsewhere; L03.032 Cellulitis of left toe; E11.628 Type 2 diabetes mellitus with other skin complications; I12.9 Hypertensive chronic kidney disease with stage 1 through stage 4 chronic kidney disease, or unspecified chronic kidney disease; I25.10 Atherosclerotic heart disease of native coronary artery without angina pectoris; L40.9 Psoriasis, unspecified; Z20.822 Contact with and (suspected) exposure to COVID-19; Z79.4 Long term (current) use of insulin; Z79.01 Long term (current) use of anticoagulants; Z95.5 Presence of coronary angioplasty implant and graft; Z95.1 Presence of aortocoronary bypass graft; Z79.82 Long term (current) use of aspirin; Z90.49 Acquired absence of other specified parts of digestive tract; Z98.890 Other specified postprocedural states; Z88.0 Allergy status to penicillin; Z79.899 Other long term (current) drug therapy; Z89.421 Acquired absence of other right toe(s); Z87.891 Personal history of nicotine dependence
CPT/HCPCS: 01482; 36415; 73630; 73721; 80048; 80053; 80202; 81001; 83036; 83605; 83735; 85025; 85060; 86140; 87040; 87070; 87075; 87076; 87088; 87186; 87205; 87502; 93005; 93010; 96361; 96374; 96375; 99285-25; A9270; C1713; C9803; J0692; J1100; J1815; J1885; J2250; J2405; J2704; J2765; J2795; J3010; J3370; J3475; J7030; J7060; J7121; U0003

== ENCOUNTER 2022-04-01 15:52 | Inpatient (IN) | payer BC, OTHER ==
[~2022-04-01] VITALS: Ht 180.3 cm; Wt 90.8 kg
--- NOTE | ~2022-04-01 | OR ---
[facility] [address] [place], [place] [address] Draft DATE OF OPERATION: 04/06/2022 SURGEON: Yoandy Gupta DPM PREOPERATIVE DIAGNOSES: 1. Cellulitis, left lower limb. 2. Acute osteomyelitis, left foot. 3. Diabetic ulcer with necrosis of bone, left foot. POSTOPERATIVE DIAGNOSES: 1. Cellulitis, left lower limb. 2. Acute osteomyelitis, left foot. 3. Diabetic ulcer with necrosis of bone, left foot. ANESTHESIA: IV general with local block, left foot. HEAD CORRECTION OFFICER: Yoandy Barone. SPECIMEN: To pathology, soft tissue and bone from left 4th digit amputation as well as bone from left 4th metatarsal and left 5th metatarsal. Aerobic and anaerobic cultures also obtained, left foot. PROCEDURES: 1. Amputation, left fourth digit. 2. Debridement of ulcer and osteomyelitis, left foot. DESCRIPTION OF PROCEDURE: The patient was brought to the operating room and placed on the table in the supine position. Anesthesia Department administered IV sedation after which a local block was given to the left foot using 10 mL of 1:1 mixture, 2% lidocaine plain and 0.5% ropivacaine plain. The left leg and foot were then prepped and draped in the usual sterile manner and an Esmarch was used for hemostasis. After only a few minutes into the procedure, however, the Esmarch was not providing hemostasis, this appeared to be acting as a venous tourniquet, a large amount of calcified vessels noted on preoperative x-rays, therefore a tourniquet would not likely be effective. The Esmarch was then removed and the remainder of the procedure performed without a tourniquet. PATIENT NAME: LIVE ROJAS OPERATIVE REPORT DATE OF : 67 REPORT #: [id number] PHYSICIAN: YOANDY GUPTA DPM PCP: ALEX JOVEL MD REPORT IS CONFIDENTIAL AND NOT TO BE RELEASED WITHOUT AUTHORIZATION [facility] [address] [place], [place] [address] Draft Attention was initially directed to the left 4th digit. A dusky color was noted to the base of the left 4th digit with a large ulcer on the medial side of the proximal 4th digit. An open wound was also present from the left 5th digit prior amputation and the open wound site showed purulent appearing drainage. The preoperative MRI had shown osteomyelitis to the distal 4th metatarsal and majority of the 5th metatarsal, therefore amputation of the left 4th digit was necessary at this time as well and the initial incision was an ellipse including the 4th digit and the open ulcer from the 5th digit amputation site. The incision then extended dorsally along the 5th metatarsal. The incision was initially full-thickness through the dermis, then carried deep to bone disarticulating 4th digit at the MTPJ and removing 4th digit as well as the ellipse of soft tissue including the ulcer from the 5th digit amputation site together. With the 4th digit amputated, a large amount of necrotic tissue noted surrounding the base of 4th digit and 4th metatarsal head. Soft tissues then reflected to expose the 4th metatarsal. The 4th metatarsal head and distal shaft were crumbly and necrotic and an osteotomy then made through the 4th metatarsal at about the mid shaft level. This appeared to have solid bone, which was then noted to have healthy appearance and bleeding at the osteotomy site. Soft tissues then reflected to expose the 5th metatarsal. The distal aspect of the 5th metatarsal appeared to be completely demineralized and rubbery in texture. The dissection was carried proximal along the 5th metatarsal and the soft tissues within this area appeared to have little or no necrosis; however, the MRI showed bone changes extending to the base of the 5th metatarsal. Therefore, he bone resection carried out at this level, the level of the osteotomy assessed with intraoperative fluoroscopy. Once the osteotomy was performed and the majority of 5th metatarsal removed, the remaining bone inspected. This appeared to be healthy and solid with positive bleeding. At this time, attention was then redirected to the remaining soft tissues within the surgical site and the necrotic tissue debrided using hand instrumentation. The surgical site irrigated periodically along the way and the appearance of the soft tissues reassessed focusing on debridement of any remaining necrotic tissue. Once this was accomplished, the surgical site then irrigated with copious amounts of irrigation using the Irrisept irrigation. At this time, the surgical site was then closed closing the proximal portion of the incision. Once the incision was about 70% closed, then antibiotic beads, which were a calcium sulfate beads containing vancomycin then placed throughout the surgical site. The majority of the incision then closed leaving about a 1 cm open area distally, then a 0.5 inch plain Nu-Gauze packing used to fill the void of the surgical site. Dressings applied consisting of Adaptic, Betadine-soaked gauze, dry gauze, ABD pad, Kerlix roll, and Coban for compression. The patient had experienced a significant amount of bleeding throughout the procedure. The surgical site showed good active bleeding with out specific vessels showing obvious bleeding, this was just a rapid oozing and bleeding throughout the surgical site. Therefore, the packing and a PATIENT NAME: LIVE ROJAS OPERATIVE REPORT DATE OF : 67 REPORT #: [id number] PHYSICIAN: YOANDY GUPTA DPM PCP: ALEX JOVEL MD REPORT IS CONFIDENTIAL AND NOT TO BE RELEASED WITHOUT AUTHORIZATION [address] [place] [address] Draft compression dressing used to control bleeding once the procedure was completed. ESTIMATED BLOOD LOSS: Approximately 500 mL. INTRAOPERATIVE COMPLICATIONS: None. ANIA Arango/ALEXIA /[id number] Copies: ~ PATIENT NAME: MANDY ROJASVICKY Abrams OPERATIVE REPORT DATE OF : 67 REPORT #: [id number] PHYSICIAN: YOANDY GUPTA DPM PCP: ALEX JOVEL MD REPORT IS CONFIDENTIAL AND NOT TO BE RELEASED WITHOUT AUTHORIZATION
[~2022-04-01 15:52] MED LIST changes: +CRESTOR10 MG PO; +DOXYCYCLINE HY100 MG PO; +INDAPAMIDE1.25 MG PO; +INSULIN LI100 UNIT/2 SUB-Q; +NORVASC10 MG PO
--- OUTSIDE RECORDS SUMMARY | 2022-04-01 15:54 | XMS ---
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 Care History Medical/Surgical 05/04/2021 [facility] Contacted [place] COTEpodiatry assistantMgqmrlj-Pnwvxq-vxobxlik of recent ED visits. They will follow up with the patient. 04/21/2021 [facility] PATIENT- CUBA ELIGIBLE PLEASE REFER PATIENT TO [facility] FOR NON EMERGENT MEDICAL NEEDS. [facility] CAN SEE PATIENTS SAME DAY FOR APTS IF PATIENT CALLS FIRST THING IN THE MORNING. EGutierrez VISIT COUNT (12 MO.) 1 [facility] 6 [facility]. TOTAL 7 NOTE: Visits indicate total known visits. ED/UCC VISIT TRACKING (12 MO.) 04/01/2022 15:52 [facility] TYPE: Emergency COMPLAINT: - LEFT FOOT PAIN 02/18/2022 16:51 [facility] [place] TYPE: Emergency COMPLAINT: - LT FOOT PAIN 10/17/2021 23:06 [facility] OR TYPE: Emergency DIAGNOSES: - Contact with and (suspected) exposure to COVID-19 - COVID-19 - ABD CRAMPING 08/27/2021 12:52 [facility] [place] TYPE: Emergency COMPLAINT: - HIGH B/P DIAGNOSES: - Allergy status to penicillin - Other long-term (current) drug therapy - designer writer (current) use of aspirin - Type 2 diabetes mellitus with diabetic chronic kidney disease - Hypertensive chronic kidney disease with stage 1 through stage 4 chronic kidney disease, or unspecified chronic kidney disease - Unspecified atrial fibrillation - Essential (primary) hypertension - Psoriasis, unspecified - Presence of coronary angioplasty implant and graft - MCC (current) use of insulin - Chronic kidney disease, unspecified 05/27/2021 21:16 [facility] TYPE: Emergency COMPLAINT: - ABDOMINAL PAIN DIAGNOSES: - Essential (primary) hypertension - MCC (current) use of insulin - Type 2 diabetes mellitus without complications - Hypomagnesemia - MCC (current) use of aspirin - Allergy status to penicillin - Hypo-osmolality and hyponatremia - Other long-term (current) drug therapy - Unspecified atrial fibrillation 04/18/2021 12:25 [facility] TYPE: Emergency COMPLAINT: - LEFT EYE HAS LOST EYE SIGHT, BLURRY DIAGNOSES: - designer writer (current) use of aspirin - Type 2 diabetes mellitus without complications - Other long-term (current) drug therapy - Other visual disturbances - Unspecified atrial fibrillation - Essential (primary) hypertension - Allergy status to penicillin - designer writer (current) use of insulin 04/16/2021 08:28 [facility] TYPE: Emergency COMPLAINT: - HIGH B/P DIAGNOSES: - Essential (primary) hypertension - MCC (current) use of insulin - designer writer (current) use of aspirin - Allergy status to penicillin - Type 2 diabetes mellitus without complications - Other long-term (current) drug therapy - Unspecified atrial fibrillation INPATIENT VISIT TRACKING (12 MO.) 02/18/2022 21:09 [facility] TYPE: Medical Surgical COMPLAINT: - ACUTE KIDNEY INJ, L 5TH TOE CELLULITUS/DIAB. 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 - Methicillin susceptible Staphylococcus aureus infection as the cause of diseases classified elsewhere - Acquired absence of other specified parts of digestive tract - Gangrene, not elsewhere classified - Chronic kidney disease, stage 4 (severe) - designer writer (current) use of aspirin - Non-pressure chronic ulcer of other part of left foot with unspecified severity - Personal history of nicotine dependence - Acute kidney failure, unspecified - Type 2 diabetes mellitus with diabetic peripheral angiopathy with gangrene - MCC (current) use of insulin - Acute kidney failure, unspecified - Contact with and (suspected) exposure to COVID-19 - Allergy status to penicillin - Sepsis due to Methicillin susceptible Staphylococcus aureus - Type 2 diabetes mellitus with other skin complications - designer writer (current) use of anticoagulants - designer writer (current) use of insulin - Gangrene, not elsewhere classified - Acquired absence of other right toe(s) - Psoriasis, unspecified - Chronic kidney disease, stage 4 (severe) - Other specified postprocedural states - Allergy status to penicillin - Personal history of nicotine dependence - Cellulitis of left lower limb - Sepsis, unspecified organism - Sepsis due to Methicillin susceptible Staphylococcus aureus - Hypertensive chronic kidney disease with stage 1 through stage 4 chronic kidney disease, or unspecified chronic kidney disease - Presence of coronary angioplasty implant and graft - Type 2 diabetes mellitus with diabetic polyneuropathy - Other long-term (current) drug therapy - Other osteomyelitis, ankle and foot - designer writer (current) use of aspirin - Methicillin susceptible Staphylococcus aureus infection as the cause of diseases classified elsewhere - Other specified postprocedural states - Type 2 diabetes mellitus with diabetic chronic kidney disease - Presence of coronary angioplasty implant and graft - Other long-term (current) drug therapy - Pure hypercholesterolemia, unspecified - Contact with and (suspected) exposure to COVID-19 - Type 2 diabetes mellitus with diabetic chronic kidney disease - Presence of aortocoronary bypass graft - Acquired absence of other right toe(s) - designer writer (current) use of anticoagulants - Other osteomyelitis, ankle and foot - Type 2 diabetes mellitus with diabetic polyneuropathy - Unspecified atrial fibrillation - Hypertensive chronic kidney disease with stage 1 through stage 4 chronic kidney disease, or unspecified chronic kidney disease - Acquired absence of other specified parts of digestive tract - 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
[2022-04-02] MEDS ORDERED: ONDANSETRON ODT4 MG PO (09:31)
[2022-04-08] MEDS ORDERED: SODIUM BICARBO650 MG PO (14:42)
[2022-04-09] MEDS ORDERED: CIPROFLOXACIN500 MG PO (09:54)
[2022-04-09] MEDS ORDERED: METRONIDAZOLE500 MG PO (09:54)
== END 2022-04-08 15:40 | disposition home or self-care (01) | DRG 854 ==
LOC: ED 15:52 → MS 20:01
PROVIDERS: Podiatrist Foot Surgery; ADMIT Family Medicine; ATTEND Internal Medicine
PROC: 0QBP0ZZ Excision of Left Metatarsal, Open Approach (ICD-10-PCS; 2022-04-06)
PROC: 3E03329 Introduction of Other Anti-infective into Peripheral Vein, Percutaneous Approach (ICD-10-PCS; 2022-04-06)
PROC: 0Y6W0Z0 Detachment at Left 4th Toe, Complete, Open Approach (ICD-10-PCS; principal; 2022-04-06 07:30)
DX: A41.9 Sepsis, unspecified organism (principal); I48.20 Chronic atrial fibrillation, unspecified; I96 Gangrene, not elsewhere classified; L03.116 Cellulitis of left lower limb; M86.172 Other acute osteomyelitis, left ankle and foot; N18.4 Chronic kidney disease, stage 4 (severe); E11.69 Type 2 diabetes mellitus with other specified complication; Z20.822 Contact with and (suspected) exposure to COVID-19; I12.9 Hypertensive chronic kidney disease with stage 1 through stage 4 chronic kidney disease, or unspecified chronic kidney disease; L40.9 Psoriasis, unspecified; E11.22 Type 2 diabetes mellitus with diabetic chronic kidney disease; E78.5 Hyperlipidemia, unspecified; E11.621 Type 2 diabetes mellitus with foot ulcer; Z95.1 Presence of aortocoronary bypass graft; Z98.890 Other specified postprocedural states; Z88.0 Allergy status to penicillin; Z79.4 Long term (current) use of insulin; Z79.82 Long term (current) use of aspirin; Z79.899 Other long term (current) drug therapy
CPT/HCPCS: 36415; 73620; 73630; 73721; 80048; 80053; 80202; 83605; 83735; 84100; 85025; 85060; 86140; 87040; 87205; 87502; 96361; 96365; 96375; 99285-25; A9270; C1713; C9803; J0692; J0696; J1170; J1815; J2405; J2550; J3370; J7030; J7060; U0003

== ENCOUNTER 2023-10-19 18:25 | Emergency (ER) | payer OTHER ==
[~2023-10-19] VITALS: Ht 180.3 cm; Wt 94.6 kg
--- NOTE | ~2023-10-19 | EKG ---
[facility] [address] [facility] [place], [place] [address] Draft EK completed, results pending confirmation PATIENT NAME: BOBLIVE Electrocardiogram DATE OF : 67 PHYSICIAN: PRELIMINARY REPORT #: [id number] REPORT IS CONFIDENTIAL AND NOT TO BE RELEASED WITHOUT AUTHORIZATION
[~2023-10-19 18:25] MED LIST changes: +METRONIDAZOLE500 MG PO; +ONDANSETRON ODT4 MG PO; +SODIUM BICARBO650 MG PO
[2023-10-19] MEDS ORDERED: FAMOTIDINE 20 MG/ 2 ML VIAL IV ONE (20:30)
[2023-10-19] MEDS ORDERED: ondansetron HCL 4 MG/2 ML VIAL IV ONE (20:30)
[2023-10-19 21:13] LABS: BASOPHILS 0.6 % (0-2); EOSINOPHILS 0.9 % (0-6); HEMATOCRIT 35.7 % (35.0-50.0); HEMOGLOBIN 11.7 g/dL (12.0-18.0); MCH 30.5 (27-36); MCHC 32.8 g/dl (30-36); MONOCYTES 13.2 % (0-12); NEUTROPHILS 79.3 % (39-80); PLATELET COUNT 147 K/uL (140-440); RBC 3.83 M/ul (4.3-5.7); RDW 16.1 (10.5-15.0)
[2023-10-19 21:30] LABS: INFLUENZA B NAA NEGATIVE (NEGATIVE); RESPIRATORY SYNCYTIAL VIR NAA NEGATIVE (NEGATIVE)
[2023-10-19 21:31] LABS: ALBUMIN/GLOBULIN RATIO 0.65 (1.1-2.4); ANION GAP 13.1 (7-21); BILIRUBIN, TOTAL 2.2 ng/dL (0.2-1.0); BUN/CREATININE RATIO 3.92 (6.0-28.6); CALCIUM 8.6 mg/dL (8.5-10.1); CREATININE, SERUM 4.59 mg/dL (0.70-1.30); POTASSIUM 4.1 mmol/L (3.5-5.1); PROTEIN, TOTAL 7.6 g/dL (6.4-8.2)
[2023-10-19] MEDS ORDERED: DOXYCYCLINE HYCLATE 100 MG CAP PO ONE (21:45)
[2023-10-19] MEDS ORDERED: DOXYCYCLINE HY100 MG PO (22:22)
[2023-10-19] MEDS ORDERED: ONDANSETRON ODT4 MG PO (22:22)
[2023-10-19 22:25] LABS: BILIRUBIN, URINE POSITIVE (negative); BLOOD/HGB, URINE SMALL (Negative); KETONE, URINE NEGATIVE (Negative); LEUK ESTERASE, URINE NEGATIVE (negative); NITRITE, URINE NEGATIVE (negative); PH, URINE 8.5 (5-7)
[2023-10-19] MEDS ORDERED: ONDANSETRON 4 MG HOME.PACK SL ONE (22:30)
[2023-10-19 22:31] LABS: BACTERIA, URINE RARE /hpf (negative); CRYSTALS, URINE NONE SEEN (0-1+); EPITHELIAL CELLS, URINE SQUAMOUS 1+ /lpf (0-1+); WHITE BLOOD CELLS, URINE 0-1 /HPF (0-5)
[2023-10-19 22:32] LABS: CASTS, URINE NONE SEEN \\lpf; REFLEX CULTURE, URINE No (No)
[2023-10-19 22:41] VITALS: BP 150/78
== END 2023-10-19 22:45 | disposition home or self-care (01) ==
LOC: ED 18:25
PROVIDERS: Internal Medicine
DX: J18.9 Pneumonia, unspecified organism (principal); I10 Essential (primary) hypertension; E11.9 Type 2 diabetes mellitus without complications; Z95.5 Presence of coronary angioplasty implant and graft; Z95.1 Presence of aortocoronary bypass graft; Z88.0 Allergy status to penicillin; Z79.82 Long term (current) use of aspirin; Z79.02 Long term (current) use of antithrombotics/antiplatelets; Z79.4 Long term (current) use of insulin; Z79.899 Other long term (current) drug therapy; Z11.52 Encounter for screening for COVID-19
CPT/HCPCS: 36415; 71045; 80053; 81001; 83690; 84484; 85025; 87502; 93005; 93010; A9270; J2405; U0002

== ENCOUNTER 2023-12-29 10:00 | Day surgery (SDC) | payer OTHER, MEDICARE ==
[~2023-12-29] VITALS: Ht 180.3 cm; Wt 95.5 kg
[~2023-12-29 10:00] MED LIST changes: +CARVEDILOL12.5 MG PO; +CYCLOBENZAPRINE5 MG PO; +ELIQUIS2.5 MG PO; +IBLOOD GLUCOSE TEST STRIP 1 EA TEST VI PRN; +LACTATED RINGER'S 1,000 ML IV SCH; +LIDOCAINE HCL 1% 5 ML SDV INJ ONE; +LOSARTAN POTAS100 MG PO; +MIDAZOLAM HCL 5 MG/5 ML VIAL IV PRN; +fentaNYL citrate 100 MCG/2 ML VIAL IV PRN
[2023-12-29] MEDS ORDERED: MIDAZOLAM HCL 5 MG/5 ML VIAL ONE (10:04)
[2023-12-29] MEDS ORDERED: fentaNYL citrate 100 MCG/2 ML VIAL ONE (10:04)
[2023-12-29 10:32] VITALS: BP 144/76
[2023-12-29] MEDS ORDERED: DEXTROSE 50% 50 ML SYR ONE (10:33)
[2023-12-29] MEDS ORDERED: DEXTROSE 50% 50 ML SYR IV ONE (10:45)
[2023-12-29 15:58] VITALS: BP 125/69
--- NOTE | 2023-12-29 16:18 | NUR ---
12/29/23 1618 Sheets,Hafsa 1128 PT ARRIVED TO PACU ON 2L VIA NC, PT RESTING AND DENIES CONCERNS. PT WAKES EASILY AND IS REORIENTED TO PACU. PT EASILY FALLS BACK TO SLEEP. 1142 PT WAKES OFF AND ON. PT ENCOURAGED TO PASS GAS. AT BEDSIDE TALKING TO PT. LOOKED AT RIGHT LOWER LEG WITH WOUND NOTED. ROCAEL GARCIA WOUND NURSE ASKED TO DRESS WOUND. 1146 O2 REMOVED AND PT SIPPING JUICE PER REQUEST. ROCAEL GARCIA DRESSED WOUND WITH VERSATILE SILICONE CONTACT LAYER WITH ADHESIVE FOAM. WOUND APPROXIMATELY THE SIZE OF DECK OF CARDS AND PT DOES NOT KNOW HOW IT HAPPEN. 1220 DC INSTRUCTIONS AND PAPERWORK GIVEN. PT DENIES CONCERNS AND ALL QUESTIONS ANSWERED. PT VERBALIZED UNDERSTANDING OF WOUND DRESSING AND ALL DC INSTRUCITONS. PT DRESSED HIMSELF AND DC VIA WC TO FAMILY.
--- NOTE | 2023-12-29 19:04 | OR ---
[facility] [address] [place], [place] [address] Signed DATE OF OPERATION: 12/29/2023 SURGEON: Margoth Jaime MD PREOPERATIVE DIAGNOSES: 1. Colon screening. 2. History of tubular adenoma x4 2018. 3. Chronic renal failure requiring dialysis three days a week. POSTOPERATIVE DIAGNOSES: 1. Internal hemorrhoids. 2. Mild cecal and rectal inflammation, otherwise normal. PROCEDURE: Total colonoscopy to cecum with biopsy of cecum and rectum. ANESTHESIA: Intravenous sedation; fentanyl 100 mcg and Versed 3 mg, and preoperative administration of amp of D50 for blood sugar 60 (120 preop). INDICATION: This 58-year-old man is a patient of Dr. Jovel at [facility]. He underwent colonoscopy in 2018 where he was found to have four tubular adenomas, which were all resected. In the meantime, he has developed chronic renal failure and now is dialyzed three days a week. He does have family history of colon cancer in his brother. He currently has no symptoms of bleeding, diarrhea or constipation. He is admitted to undergo colonoscopy. He understands the risk of bleeding, infection, and perforation. FINDINGS: The prep was good. Complete colonoscopy was undertaken to the cecum. There was mild cecal inflammation which may represent only friability of the mucosa related to the scope itself. Similar findings were noted to the rectum. He had no evidence of polyps or marbin inflammatory bowel disease. He did have some internal hemorrhoidal change. DESCRIPTION OF PROCEDURE: The patient was brought to the endoscopy suite and placed in the lateral decubitus position. A preoperative blood sugar had been obtained, which was 60 and although asymptomatic, an amp of D50 was given intravenously. Subsequent evaluation showed his blood sugar to be 120. He had no symptoms related to his relative hypoglycemia, it is noted. Electronically Signed By: MARGOTH JAIME MD 12/29/23 1904 PATIENT NAME: LIVE ROJAS OPERATIVE REPORT DATE OF : 67 REPORT #: [id number] PHYSICIAN: MARGOTH JAIME MD PCP: ALEX JOVEL MD REPORT IS CONFIDENTIAL AND NOT TO BE RELEASED WITHOUT AUTHORIZATION [facility] [address], [place] [address] Signed He was given intravenous sedation to the point of slurred speech and nystagmus with full cardiopulmonary monitoring. Digital rectal examination was normal, though he did have some mild stenotic changes of the anal canal. An Olympus video colonoscope was passed in the rectum and manipulated throughout the colon ultimately intubating the cecum itself. The ileocecal valve and appendiceal orifice were normal. There was mild inflammation of the cecum, mostly friability in relation to manipulation of the tip of the colonoscope. Biopsies were obtained. Scope was then withdrawn and careful inspection throughout showed no sign of polyps or other abnormality. The rectum had a similar appearance to the cecum and it was biopsied also. Retroflexed view showed some internal hemorrhoidal change. The scope was removed and the patient was taken to the recovery room in good condition. CONCLUDING DIAGNOSIS: Mild cecal and rectal inflammation of little clinical significance. No evidence of polyps. PLAN: Recommend repeat colonoscopy in 5 years based on family history of colon cancer in his brother as well, of course has his own personal history of polyps. He will return to the ongoing care of Dr. Jovel at [facility]. Margoth Jaime MD JM/MODL /[id number] cc: Alex Jovel MD Copies: ALEX JOVEL MD ~ Electronically Signed By: MARGOTH JAIME MD 12/29/23 1904 PATIENT NAME: LIVE ROJAS OPERATIVE REPORT DATE OF : 67 REPORT #: [id number] PHYSICIAN: MARGOTH JAIME MD PCP: ALEX JOVEL MD REPORT IS CONFIDENTIAL AND NOT TO BE RELEASED WITHOUT AUTHORIZATION
--- NOTE | 2024-01-03 19:48 | PATH ---
[facility] [address] [facility] [place], [place] [address] Signed SPECIMEN(S): A ASCENDING COLON BIOPSY SPECIMEN(S): B RECTUM BIOPSY SPECIMEN SOURCE: A. ASCENDING COLON BIOPSY B. RECTUM BIOPSY CLINICAL HISTORY: History of colon polyps, family history of colon cancer, diarrhea FINAL PATHOLOGIC DIAGNOSIS: A. Ascending colon biopsy: - Benign colonic mucosa, negative for pathologic inflammation or dysplasia. B. Rectum biopsy: - Benign colonic mucosa with slight hyperplastic features (two fragments). - Negative for pathologic inflammation. JVR:llc MICROSCOPIC EXAMINATION: Histologic sections of all submitted blocks are examined by light microscopy. These findings, together with the gross examination, support the pathologic diagnosis. GROSS DESCRIPTION: A. The specimen, labeled and designated "Marcelo, ascending colon biopsy," is received in formalin and consists of two kelly soft tissue fragments, ranging from 0.3-0.5 cm. Entirely submitted in (A1). B. The specimen, labeled and designated "Marcelo, rectum biopsy," is received in formalin and consists of two kelly soft tissue fragments, ranging from 0.5-0.7 cm. Entirely submitted in (B1). VB (under the direct supervision of a pathologist) The Gross Description was prepared using a voice recognition system. The report was reviewed for accuracy; however, sound-alike word errors, addition and/or deletions may occur. If there is any question about this report, please contact Client Services. PERFORMING LABORATORY: Technical component was performed by [facility], [address] [place] [id number] (CLIA# [id number]). Professional interpretation was performed by [facility] - [facility], [address] [place] [id number] (CLIA#: [id number]). PATIENT NAME: LIVE ROJAS PATHOLOGY DATE OF : 67 REPORT #: [id number] PHYSICIAN: [facility] PCP: ALEX JOVEL MD REPORT IS CONFIDENTIAL AND NOT TO BE RELEASED WITHOUT AUTHORIZATION [facility] [address] [place] [id number] Signed Diagnostician: Neville Orellana MD Pathologist Electronically Signed 01/03/2024 Copies: ~ PATIENT NAME: LIVE ROJAS PATHOLOGY DATE OF : 67 REPORT #: [id number] PHYSICIAN: [facility] PCP: ALEX JOVEL MD REPORT IS CONFIDENTIAL AND NOT TO BE RELEASED WITHOUT AUTHORIZATION
== END 2023-12-29 12:20 | disposition home or self-care (01) ==
LOC: DS 10:00 → OPS 10:00 → DS 11:00 → OPS 12:20 → DS 13:15 → OPS 13:15
PROVIDERS: ATTEND Surgery
PROC: 0DBE8ZX Excision of Large Intestine, Via Natural or Artificial Opening Endoscopic, Diagnostic (ICD-10-PCS; principal; 2023-12-29 11:00)
DX: Z12.11 Encounter for screening for malignant neoplasm of colon (principal); K64.8 Other hemorrhoids; K37 Unspecified appendicitis; K62.89 Other specified diseases of anus and rectum; Z80.0 Family history of malignant neoplasm of digestive organs; Z86.010 Personal history of colon polyps; I12.0 Hypertensive chronic kidney disease with stage 5 chronic kidney disease or end stage renal disease; E11.22 Type 2 diabetes mellitus with diabetic chronic kidney disease; N18.6 End stage renal disease; I25.10 Atherosclerotic heart disease of native coronary artery without angina pectoris; K21.9 Gastro-esophageal reflux disease without esophagitis; Z99.2 Dependence on renal dialysis; Z79.82 Long term (current) use of aspirin; Z79.4 Long term (current) use of insulin; Z79.01 Long term (current) use of anticoagulants; Z79.899 Other long term (current) drug therapy
CPT/HCPCS: 99153; G0500; J2250; J3010; J7121

== ENCOUNTER 2024-06-25 09:25 | Emergency (ER) | payer OTHER, MEDICARE ==
[~2024-06-25] VITALS: Ht 180.3 cm; Wt 78.5 kg
[~2024-06-25 09:25] MED LIST changes: -IBLOOD GLUCOSE TEST STRIP 1 EA TEST VI PRN; -LACTATED RINGER'S 1,000 ML IV SCH; -LIDOCAINE HCL 1% 5 ML SDV INJ ONE; -MIDAZOLAM HCL 5 MG/5 ML VIAL IV PRN; -fentaNYL citrate 100 MCG/2 ML VIAL IV PRN
[2024-06-25 11:07] LABS: BASOPHILS 0.2 % (0-2); EOSINOPHILS 0.6 % (0-6); HEMATOCRIT 32.9 % (35.0-50.0); HEMOGLOBIN 11.2 g/dL (12.0-18.0); LYMPHOCYTES 2.5 % (24-44); MCH 33.5 (27-36); MCHC 34.1 g/dl (30-36); MCV 98.4 fl (81-99); MONOCYTES 8.1 % (0-12); NEUTROPHILS 88.6 % (39-80); PLATELET COUNT 114 K/uL (140-440); RBC 3.34 M/ul (4.3-5.7); RDW 15.4 (10.5-15.0)
[2024-06-25] MEDS ORDERED: ondansetron HCL 4 MG/2 ML VIAL IV ONE ×3 (11:15→13:45)
[2024-06-25 11:22] LABS: ALBUMIN 2.8 g/dL (3.4-5.0); ALBUMIN/GLOBULIN RATIO 0.52 (1.1-2.4); ANION GAP 13.8 (7-21); BILIRUBIN, TOTAL 3.3 mg/dL (0.2-1.0); BUN/CREATININE RATIO 3.58 (6.0-28.6); CALCIUM 8.8 mg/dL (8.5-10.1); CREATININE, SERUM 3.91 mg/dL (0.70-1.30); MAGNESIUM 2.1 mg/dL (1.8-2.4); POTASSIUM 3.8 mmol/L (3.5-5.1); PROTEIN, TOTAL 8.2 g/dL (6.4-8.2)
[2024-06-25 11:51] LABS: LACTIC ACID, BLOOD 3.6 mmol/L (0.4-2.0)
[2024-06-25] MEDS ORDERED: ASPIRIN 81 MG CHEW PO ONE (13:45)
[2024-06-25] MEDS ORDERED: NITROGLYCERIN PACKET TOP ONE (14:15)
[2024-06-25] MEDS ORDERED: HEPARIN SOD,PORK IN 0.45% NACL 500 ML IV SCH (14:15)
[2024-06-25] MEDS ORDERED: NITROGLYCERIN 0.4 MG SUBL SL PRN (14:15)
[2024-06-25] MEDS ORDERED: HEParin SOD (PORCINE) 5,000 UNIT/ML VIAL IV ONE (14:15)
[2024-06-25 14:22] LABS: INR 1.4 (0.80-1.30); PROTIME 17.1 Sec (11.2-14.2)
[2024-06-25 14:24] LABS: PARTIAL THROMBOPLASTIN TIME 37.3 Sec (22.9-41.3)
[2024-06-25] MEDS ORDERED: SODIUM CHLORIDE 0.9% 1,000 ML IV PRN (15:30)
[2024-06-25 15:55] LABS: CORONAVIRUS COVID-19 AG NEGATIVE (NEGATIVE); INFLUENZA A AG NEGATIVE (NEGATIVE); INFLUENZA B AG NEGATIVE (NEGATIVE)
[2024-06-25] MEDS ORDERED: CEFTRIAXONE SODIUM 2 GM VIAL ONE (17:07)
[2024-06-25] MEDS ORDERED: CEFTRIAXONE SODIUM 2 GM in SODIUM CHLORIDE 0.9% 100 ML IV ONE (17:15)
[2024-06-25 18:15] VITALS: BP 100/52
[2024-06-27 05:11] LABS: PROCALCITONIN 0.91 ng/mL (())
--- NOTE | 2024-06-27 19:39 | EKG ---
[facility] [address] [facility] [place] [address] Signed Normal sinus rhythm Rightward axis ST \T\ T wave abnormality, consider inferior ischemia ST \T\ T wave abnormality, consider anterolateral ischemia Prolonged QT Abnormal ECG When compared with ECG of 19-OCT-2023 20:28, T wave inversion less evident in Inferior leads T wave inversion more evident in Anterior leads Confirmed by Tate Rojas MD ([id number]) on 06/27/2024 7:39:35 PM Electronically Signed By: TATE ROJAS MD 06/27/24 1939 PATIENT NAME: LIVE ROJAS Electrocardiogram DATE OF : 67 PHYSICIAN: TATE ROJAS MD REPORT #: [id number] REPORT IS CONFIDENTIAL AND NOT TO BE RELEASED WITHOUT AUTHORIZATION
--- NOTE | 2024-06-27 19:40 | EKG ---
[facility] [address] [facility] [place] [address] Signed Normal sinus rhythm Rightward axis ST \T\ T wave abnormality, consider inferolateral ischemia Prolonged QT Abnormal ECG When compared with ECG of 25-JUN-2024 12:45, (Unconfirmed) No significant change was found Confirmed by Joel Rojas MD ([id number]) on 06/27/2024 7:40:13 PM Electronically Signed By: JOEL ROJAS MD 06/27/241939 PATIENT NAME: LIVE ROJAS Aliza Electrocardiogram DATE OF : 67 PHYSICIAN: JOEL ROJAS MD REPORT #: [id number] REPORT IS CONFIDENTIAL AND NOT TO BE RELEASED WITHOUT AUTHORIZATION
== END 2024-06-25 18:15 | disposition short-term general hospital (02) ==
LOC: ED 09:25
PROVIDERS: Emergency Medicine
DX: I21.4 Non-ST elevation (NSTEMI) myocardial infarction (principal); I12.0 Hypertensive chronic kidney disease with stage 5 chronic kidney disease or end stage renal disease; E11.22 Type 2 diabetes mellitus with diabetic chronic kidney disease; N18.6 End stage renal disease; I48.91 Unspecified atrial fibrillation; Z99.2 Dependence on renal dialysis; Z95.5 Presence of coronary angioplasty implant and graft; Z95.1 Presence of aortocoronary bypass graft; Z88.0 Allergy status to penicillin; Z79.82 Long term (current) use of aspirin; Z79.01 Long term (current) use of anticoagulants; Z79.899 Other long term (current) drug therapy
CPT/HCPCS: 36415; 71045; 74176; 80053; 83605; 83690; 83735; 84484; 85025; 85610; 85730; 87040; 93005; 93010; 96361; 96365; 96375; 96376; 99285-25; A9270; J1644; J2405; J7030

== ENCOUNTER 2024-08-12 07:37 | Emergency (ER) | payer OTHER, MEDICARE ==
[~2024-08-12] VITALS: Ht 180.3 cm; Wt 93.4 kg
[2024-08-12] MEDS ORDERED: CEFTRIAXONE SODIUM 2 GM in SODIUM CHLORIDE 0.9% 100 ML IV ONE (07:45)
[2024-08-12] MEDS ORDERED: SODIUM CHLORIDE 0.9% 500 ML IV PRN (07:45)
[2024-08-12] MEDS ORDERED: ACETAMINOPHEN 500 MG TAB PO ONE (07:45)
[2024-08-12] MEDS ORDERED: ondansetron HCL 4 MG/2 ML VIAL IV ONE (07:45)
[2024-08-12 08:03] LABS: BASOPHILS 0.4 % (0-2); EOSINOPHILS 2.3 % (0-6); HEMATOCRIT 31.8 % (35.0-50.0); HEMOGLOBIN 11.1 g/dL (12.0-18.0); LYMPHOCYTES 4.7 % (24-44); MCH 33.1 (27-36); MCHC 34.8 g/dl (30-36); MCV 95.1 fl (81-99); MONOCYTES 2.1 % (0-12); NEUTROPHILS 90.5 % (39-80); PLATELET COUNT 130 K/uL (140-440); RBC 3.34 M/ul (4.3-5.7); RDW 15.4 (10.5-15.0)
[2024-08-12] MEDS ORDERED: ACETAMINOPHEN 1,000 MG/100 ML VIAL IV ONE (08:15)
[2024-08-12] MEDS ORDERED: droPERidol 5 MG/2 ML VIAL IV ONE (08:15)
[2024-08-12 08:19] LABS: ALBUMIN 2.4 g/dL (3.4-5.0); ALBUMIN/GLOBULIN RATIO 0.42 (1.1-2.4); ANION GAP 14.2 (7-21); BILIRUBIN, TOTAL 2.9 mg/dL (0.2-1.0); BUN/CREATININE RATIO 6.9 (6.0-28.6); CALCIUM 8.1 mg/dL (8.5-10.1); CREATININE, SERUM 7.1 mg/dL (0.70-1.30); POTASSIUM 4.2 mmol/L (3.5-5.1); PROTEIN, TOTAL 8.1 g/dL (6.4-8.2)
[2024-08-12 08:22] LABS: LACTIC ACID, BLOOD 2.7 mmol/L (0.4-2.0)
[2024-08-12] MEDS ORDERED: LISINOPRIL5 MG PO (08:24)
[2024-08-12] MEDS ORDERED: LIPITOR80 MG GT (08:25)
[2024-08-12] MEDS ORDERED: D3 DOTS50 MCG PO (08:27)
[2024-08-12] MEDS ORDERED: PANTOPRAZOLE SO40 MG PO (08:28)
[2024-08-12 08:59] LABS: CORONAVIRUS COVID-19 AG NEGATIVE (NEGATIVE); INFLUENZA A AG NEGATIVE (NEGATIVE); INFLUENZA B AG NEGATIVE (NEGATIVE)
[2024-08-12 10:20] LABS: LACTIC ACID, BLOOD 2.2 mmol/L (0.4-2.0)
[2024-08-12] MEDS ORDERED: LACTATED RINGER'S 1,000 ML IV ONE (10:30)
[2024-08-12] MEDS ORDERED: DEXTROSE 50% 50 ML SYR IV ONE ×2 (10:45→12:00)
[2024-08-12] MEDS ORDERED: DAPTOmycin 500 MG/10 ML VIAL IV ONE (10:45)
[2024-08-12] MEDS ORDERED: NOREPINEPHRINE BITARTRATE 250 ML IV SCH (10:45)
[2024-08-12 15:02] VITALS: BP 112/53
== END 2024-08-12 15:02 | disposition short-term general hospital (02) ==
LOC: ED 07:37
PROVIDERS: Emergency Medicine
DX: A41.9 Sepsis, unspecified organism (principal); R65.21 Severe sepsis with septic shock; R41.82 Altered mental status, unspecified; E11.22 Type 2 diabetes mellitus with diabetic chronic kidney disease; I12.9 Hypertensive chronic kidney disease with stage 1 through stage 4 chronic kidney disease, or unspecified chronic kidney disease; N18.9 Chronic kidney disease, unspecified; E16.2 Hypoglycemia, unspecified; I48.91 Unspecified atrial fibrillation; Z88.0 Allergy status to penicillin
CPT/HCPCS: 36415; 70450; 71045; 74176; 80053; 83605; 84484; 85025; 87040; 87186; 96361; 96365; 96375; 96376; 99291; A9270; J0131; J0696; J0878; J1790; J2405; J7040; J7121